=== PATIENT | female | born 1985 | race Hispanic/Latino ===

== ENCOUNTER 2022-05-03 19:41 | Emergency (ER) | payer SELFPAY ==
--- OUTSIDE RECORDS SUMMARY | 2022-05-03 19:48 | XMS REPORT | Continuity of Care Document ---
:1985 Author Organization [facility] t Address [address] [place] [address] Care Team Providers Name Role Phone No, Pcp [facility] Primary Care Physician Unavailable Armond Owens Attending Clinician Unavailable Boy Ndiaye Attending Clinician Unavailable Jodie ANDRADE, Hebert Joaquin Attending Clinician [phone] Gabe Casas Attending Clinician Unavailable Livier Carver Attending Clinician Unavailable Sidney ANDRADE, Bradley Rich Attending Clinician [phone] Rick ANDRADE, Noris Castaneda Attending Clinician Ajay ANDRADE, Patricia Blanc Attending Clinician [phone] Miah ANDRADE, Nathaniel Izaguirre Attending Clinician Carter ANDRADE, Dana Attending Clinician DANA VILLARREAL Attending Clinician Unavailable Louisa Sosa Attending Clinician Unavailable GC_BVW_South_J Attending Clinician Unavailable Dallin Sanchez Attending Clinician Unavailable Armond Owens Admitting Clinician Unavailable Bárbara Lemons Admitting Clinician Unavailable PATRICIA MOSS Admitting Clinician Unavailable GC_BVW_South_J Admitting Clinician Unavailable Payers Payer Name Policy Type Policy Number Effective Date Expiration Date S melany GENERIC [id number] 2021 INSTIT,S[facility],LTAC,RE 00:00:00 [facility] [id number] Problems Condition Condition Condition Status Onset Resolution Last Treating Co mments Source Name Details Category Date Date Treatment Clinician Date Cervical Cervical Disease Active [facility]-03 [facility] [place] Symptomati Symptomati Disease Active 2021-[address] [facility] anemia c anemia 04-28 [facility] 00 [place] Vaginal Vaginal Disease Active 2021-[address] bleeding bleeding [facility]-28 [facility] Allergies, Adverse Reactions, Alerts Allergy Allergy Status Severity Reaction(s) Onset Inactive Treating Comm ents Source Name Type Date Date Clinician ibuprofe DA Active RI [facility] 00 [place] Iam NSAIDS Allergy Active 2021-03 [facility] Anti-Inf e 09 l [facility] ibuprofe Allergy Active 2021-03 St. n to [place] substanc 09:05: Regiona e 34 l Health Penicill Allergy Active 2021-03 St. ins to [place] substanc 09:05: Regiona e 21 l Health NSAIDS DA Active U 2021-03 [facility] Anti-Inf 00 lamma Penic[place] DA Active U 2021-03 STLSJX ins 00:00: 00 ibuprofe DA Active U 2021-03 STLSJX n 2 00:00: 00 IBPROFEN DA Active MO EDEMA [facility] Penic[facility] DA Active U [facility] ins 2 [facility] 00:[facility]: [facility] Pen[place] DA Active U RASH-UNKNOWN HC A ins 04-14 [facility] 00:00: [facility] [place] DA Active U [facility] ins 03-27 [facility] 00:00: [facility] 00 [facility] NO KNOWN Allergy Active [facility] Social History Social Habit Start Date Stop Date Quantity Comments Source History of tobacco [place] [facility] use [facility] Tobacco use and 2022-02-25 2022-02-[address] [facility] exposure 00:00[facility]00 [facility]00 [facility] Center Sex Assigned At [address] [facility] 00:[facility] Smoking Status Start Date Stop Date Source Tobacco smoking [place] [facility] consumption unknown Health (finding) Former smoker 2022-02-25 00:00:00 2022-02-[address] [facility] Medications Ordered Filled Start Stop Current Ordering Indication Dosage Frequency Signature Comments Components Source Medication Medication Date Date Medication? Clinician (SIG) Name Name ferrous 2021-03 Yes 325mg Take 325 [facility] sulfate 325 2-21 mg by [facility] (65 FE) MG 19:09: mouth Medica l tablet 58 daily with Center breakfast. ferrous 2021-03 Yes 325mg Take 325 [facility] sulfate 325 2-21 mg by [facility] (65 FE) MG 19:09: mouth Medica l tablet 58 daily with Center breakfast. ferrous 2021-03 Yes 325mg Take 325 [facility] sulfate 325 2-21 mg by [facility] (65 FE) MG 19:09: mouth Medica l tablet 58 daily with Center breakfast. ondansetron 2021-03 4mg Take [address] (ZOFRAN-ODT 2- 12- tablet (4 Marj kes ) 4 MG 00:00: 23:59 mg total) Medic al disintegrat 00 :00 by mouth Cent er ing tablet every 8 (eight) hours as needed for up to 7 days. ondansetron 2021-03 No 4mg Take [address] (ZOFRAN-ODT 04-30 tablet (4 Marj kes ) 4 MG 00:00: 23:59 mg total) Medic al disintegrat 00 :00 by mouth Cent er ing tablet every 8 (eight) hours as needed for up to 7 days. ondansetron 2021-03 No 4mg Take [address] (ZOFRAN-ODT 04-30 tablet (4 Marj kes ) 4 MG 00:00: 23:59 mg total) Medic al disintegrat 00 :00 by mouth Cent er ing tablet every 8 (eight) hours as needed for up to 7 days. Vital Signs Vital Name Observation Time Observation Value Comments Source WEIGHT 2022-03-09 11:47:00 72.993725 kg HEIGHT 2022-03-09 11:47:00 165.1 cm Body Temperature 2022-03-09 09:36:00 97.7 [degF] [facility] Heart Rate 2022-03-09 09:36:00 59 /min [facility] Respiratory rate 2022-03-09 09:36:00 20 /min [facility] Oxygen saturation by 2022-03-09 09:36:00 97 /min [place] Pulse oximetry [facility] BP Systolic 2022-03-09 09:36:00 99 mm[Hg] [facility] BP Diastolic 2022-03-09 09:36:00 58 mm[Hg] [facility] HEIGHT 2022-02-26 17:00:00 165.1 cm WEIGHT 2022-02-26 17:00:00 72.576 kg HEIGHT 2022-02-26 17:00:00 165.1 cm WEIGHT 2022-02-26 17:00:00 72.576 kg HEIGHT 2022-02-26 17:00:00 165.1 cm WEIGHT 2022-02-26 17:00:00 72.576 kg Heart rate 2022-02-27 11:58:02 65 /min [facility] Respiratory rate 2022-02-27 11:58:02 17 /min [facility] Oxygen saturation in 2022-02-27 11:58:02 96 /min [facility] Arterial blood by Medical Ce nter Pulse oximetry Body temperature 2022-02-27 11:57:00 36.89 Emelyn [facility] Systolic blood 2022-02-27 11:56:30 95 mm[Hg] [facility] Diastolic blood 2022-02-27 11:56:30 54 mm[Hg] [facility] Body height 2022-02-26 18:01:00 165.1 cm [facility] Body weight 2022-02-26 18:01:00 72.6 kg [facility] BMI 2022-02-26 18:01:00 26.63 kg/m2 [facility] Procedures Procedure Date / Time Performing Clinician Source Performed US Pelvic Transvag W 2022-03-09 03:52:[address] [facility] [address] Abdomen Pelvis W Con 2022-03-09 00:15:00 [facility] EKG 12 Lead in Emergency 2022-03-08 23:09:00 [facility] XR Chest 1 View Portable 2022-03-08 23:08:00 [facility] PREPARE RBC 2022-02-27 23:54:00 AjayPatricia [facility] MAGNESIUM 2022-02-27 03:49:00 [place] Patricia [facility] PHOSPHORUS 2022-02-27 03:49:00 [place] Patricia [facility] IRON, TIBC, % SAT. 2022-02-27 03:49:00 Soheila-Rach Sung In [facility] (WITHOUT FERRITIN) Medical Cente r FERRITIN 2022-02-27 03:49:00 Soheila-Rach Sung In [facility] INCUBATED 1:1 MIXING 2022-02-27 03:49:00 Soheila-Rach Sung In [facility] BASIC METABOLIC PANEL 2022-02-27 03:49:00 Henrietta Dooleyg In I [facility] CBC (HEMOGRAM ONLY) 2022-02-27 03:49:00 Nathaniel Dooley In [facility] TISSUE EXAM 2022-02-26 16:38:00 Yamile Reyez [facility] CBC (HEMOGRAM ONLY) 2022-02-26 08:34:00 Nathaniel Dooley In [facility] PT/APTT 2022-02-26 08:33:00 Henrietta Dooleyg In [facility] FACTOR 9 ACTIVITY 2022-02-26 08:33:00 Miah Wayneg In [facility] FACTOR 8 ACTIVITY 2022-02-26 08:33:00 HarleyRachHenrietta tonyg In [facility] HEMOGLOBIN AND HEMATOCRIT 2022-02-26 05:29:00 Ajay Patricia [facility] RETICULOCYTE COUNT 2022-02-26 05:29:00 SoheilaGonzalezRachNathaniel tony In [facility] CALCIUM, IONIZED 2022-02-26 03:56:00 Patricia Moss [facility] TRANSFUSE LEUKO-REDUCED 2022-02-26 01:35:00 Patricia Moss [facility] RED BLOOD CELLS [facility] SARS-COV2/RT-PCR ([facility] & 2022-02-25 23:23:00 Patricia Moss [facility] REF LABS) [facility] ABORH, MANUAL 2022-02-25 23:22:00 Liset Cardona [facility] CBC W/PLT COUNT & AUTO 2022-02-25 22:03:00 Patricia Moss [facility] DIFFERENTIAL [facility] COMPREHENSIVE METABOLIC 2022-02-25 22:03:00 Patricia Moss [facility], I [facility] PANEL [facility] PROTHROMBIN TIME/INR 2022-02-25 22:03:00 Patricia Moss [facility] MAGNESIUM 2022-02-25 22:03:00 Patricia Moss [facility] TYPE AND SCREEN, 2022-02-25 22:03:00 Patricia Moss [facility] AUTOMATED [facility] CBC W/PLT COUNT & AUTO 2022-02-25 22:03:[address] [facility] DIFFERENTIAL [facility] [id number] 2020-01-24 00:00:00 [facility] [id number] 2020-01-24 00:00:00 [facility] [id number] 2020-01-24 00:00:00 [facility] Plan of Care Planned Activity Planned Date Details Comments Source Future Scheduled 2023-02-[address] [facility] Test 00:00[facility]00 [facility] Screening (12+) [code = Tobacco Cessation Counseling and Screening (12+)] Future Scheduled 2023-02-[address] [facility] Test 00:00:00 [facility] r Screening (12+) [code = Tobacco Cessation Counseling and Screening (12+)] Future Scheduled 2023-02-[address] [facility] Test 00:00:00 [facility] Cent[facility] r Screening (12+) [code = Tobacco Cessation Counseling and Screening (12+)] Future Scheduled 2022-03-[address] [facility] Test 00:00:00 (12+) [code = [facility] DEPRESSION SCREENING (12+)] Future Scheduled 2022-03-[address] [facility] Test 00:00:00 (12+) [code = [facility] DEPRESSION SCREENING (12+)] Future Scheduled 2021-11-[address] [facility] Test 00:00:00 (#1) [code = [facility] INFLUENZA VACCINE (#1)] Future Scheduled 2021-11-[address] [facility] Test 00:00:00 (#1) [code = [facility] INFLUENZA VACCINE (#1)] Future Scheduled 2021-11-[address] [facility] Test 00:00:00 (#1) [code = [facility] INFLUENZA VACCINE (#1)] Future Scheduled 2021-03-[address] [facility] Test 00:00:00 (12+) [code = [facility] DEPRESSION SCREENING (12+)] Future Scheduled 2004-09-[address] [facility] Test 00:00:00 malignant neoplasm of Medica l Center cervix (procedure) [code = 343402673] Future Scheduled 2002-09-07 DTAP/TDAP/TD VACCINES [facility] 00:00:00 (1 - Tdap) [code = Medical C enter DTAP/TDAP/TD VACCINES (1 - Tdap)] Future Scheduled 2002-09-07 DTAP/TDAP/TD VACCINES [facility] Test 00:00:00 (1 - Tdap) [code = Medical C enter DTAP/TDAP/TD VACCINES (1 - Tdap)] Future Scheduled 2002-09-07 DTAP/TDAP/TD VACCINES [facility] 00:00:00 (1 - Tdap) [code = Medical C enter DTAP/TDAP/TD VACCINES (1 - Tdap)] Future Scheduled 2001-09-07 HEPATITIS C SCREENING [facility] 00:00[facility]00 [code = HEPATITIS C Medical Center SCREENING] Future Scheduled 2001-09-07 HEPATITIS C [facility]CRE[facility]ING [facility] 00:00:00 [code = HEPATITIS C Medical Center SCREENING] Future Scheduled 2001-09-07 HEPATITIS C [facility]CREENING [facility] 00:00:00 [code = HEPATITIS C Medical Center SCREENING] Future Scheduled 1984-03-10 COVID-19 VACCINE (#1) [facility] 00:00:00 [code = COVID-[address] VACCINE (#1)] Future Scheduled 1984-03-10 COVID-19 VACCINE (#1) [facility] 00:00:00 [code = COVID-[address] VACCINE (#1)] Future Scheduled 1984-03-10 COVID-19 VACCINE (#1) [facility] 00:00:00 [code = COVID-[address] VACCINE (#1)] Encounters Start End Encounter Admission Attending Care Care Encounter Source Date/Time Date/Time Type Type Clinicians Facility Department ID 2022-03-09 Hospital ER [facility] Gynecology [id number] 00:[facility]00 Encounter [facility] 2022-03-09 [facility] [id number] [facility] 00:00:00 Encounter [facility] 2020-01-24 Inpatient Corrada, [facility] SHANA [id number] [facility] 04:01:[id number] [facility] 2022-03-18 2022-03-18 Emergency ER Senthil, [facility] [id number] 18:23:00 22:48:00 Boy -[id number] Eron Aaron 2022-03-13 2022-03-13 Outside [facility] [id number] 00:00:00 00:00:00 Orders [facility] 2022-03-13 2022-03-13 Outside [facility] [id number] 00:00:00 00:00:00 Orders [facility] 2022-03-09 2022-03-12 Inpatient U Yessenia [facility] MED [id number] STLSJX 08:49:00 14:02:00 Gabe -[id number] 2022-03-12 2022-03-12 Orders [facility] [id number] 00:00:00 00:00:00 Only [facility] 2022-03-12 2022-03-12 Orders [facility] [id number] 00:00:00 00:00:00 Only [facility] 2022-03-08 2022-03-09 Emergency ER Wen, [facility] [id number] 22:41:00 09:05:00 Livier -[id number] Eron Aaron 2022-03-09 2022-03-09 Admitted [id number] [facility] [id number] 08:49:00 08:49:00 Inpatient [id number] [facility] 50 J oseph [id number] [facility] Ctr-CS Re giona [id number] [facility] 2022-03-09 2022-03-09 Telephone [facility] [id number] 00:00:00 00:00:00 Thomasbud [facility] 2022-03-09 2022-03-09 Telephone [facility] [id number] 00:00:00 00:00:00 Kwesichelebud [facility] 2022-02-25 2022-02-27 Hospital ER Noris Cabrera [facility] [id number] 21:25:00 19:09:00 Encounter Patricia MossRach, Sun In [facility] [place], Danaal Botello r 2022-02-25 2022-02-27 Inpatient ER [facility] Rug Weaver [id number] SLE 21:25:00 19:09:00 Oncology 2022-02-25 2022-02-27 [facility] Noris Cabrera [facility] [id number] 21:25:00 19:09:00 [facility], Dana Botello r 2022-02-25 2022-02-25 Emergency ER Sharer, [facility] [id number] 10:23:00 19:24:00 [id number] Marj s [place] Vitale 2022-02-15 2022-02-15 Outpatient GC_BVWC_Sou PRIV PRIV [id number] [facility] 00:00:00 00:00:00 _Cherise [id number] Medica l 2021-10-11 2021-10-11 Emergency EM Laura, [facility] ER [id number] [facility] 13:35:00 20:55:[address] [facility] 2021-10-11 2021-10-11 Emergency EM Laura, [facility] [id number] [facility] 13:35:00 20:55:[id number] [facility] Results Test Description Test Time Test Comments Results Result Comments Source Culture, Urine 2022-03-20 15:56:00 Test Item Value Reference Range Interpretation Comme nts Culture, Urine (test code = URC) NF Culture, Urine (test code = URC1) 50 MSF [id number] 19:50:00 Test Item Value Reference Range Interpretation Comments Chemistry (test code = 138 mmol/L 136-145 N NA-T) Chemistry (test code = 3.9 mmol/L 3.5-5.1 N K-T) Chemistry (test code = 104 mmol/L 98-107 N CL) Chemistry (test code = 27 mmol/L 22-29 N CO2) Chemistry (test code = 11 mmol/L 10-20 N ANGP) Chemistry (test code = 16 mg/dL 7.0-18.7 N BUN) Chemistry (test code = 0.72 mg/dL 0.6-1.1 N CREATT) Chemistry (test code = 110 Refer ence Range for EGFRCR) Estimated GFR: Greater than 90 mL/min/1.73 l7Lfgkhqox eGFR is based on the CK D-EPI 2020 equation thatdoes not us e a race coefficien t. Chemistry (test code = 90 mg/dL 70-105 N GLU-T) Chemistry (test code = 9.3 mg/dL 7.8-10.44 N CA) Chemistry (test code = 0.3 mg/dL 0.2-1.2 N TBILI-T) Chemistry (test code = 7.2 g/dL 6.0-8.3 N TP) Chemistry (test code = 4.2 g/dL 3.5-5.0 N ALB) Chemistry (test code = 3.0 g/dL 2.4-3.5 N GLOB) Chemistry (test code = 1.4 g/dL 1.2-2.2 N AG) Chemistry (test code = 66 U/L 40-110 N ALP) Chemistry (test code = 14 U/L 5-34 N AST) Chemistry (test code = 14 U/L 8-55 N ALT) [id number] 19:50:00 Test Item Value Reference Range Interpretation Comments Chemistry (test code = LIP) 39 U/L 8-78 N [id number] 19:46:00 Test Item Value Reference Range Interpretation Comments Chemistry (test Less than < 0.028 code = TROPI-R) 0.010 ng/mL Reference Ra nge 0.00 - 0.028 ng /mL Negative 0.029 - 0.29 ng/mL Indetermi vincent Greater or Equa l to 0.3 ng/mL Stron gly suggests RI Chemistry - [id number] 19:43:00 Test Item Value Reference Range Interpretation Comments Chemistry - Lactate (test code = 0.6 mmol/L 0.5-2.2 N LACTSEP-T) Chemistry - [id number] 19:27:00 Test Item Value Reference Range Interpretation Comments Chemistry - Specials Negative NEGATIVE Method of sensitivity- (test code = BHCGST) Indeter minant: results should be repea erna after 48-72 hrs Positive: resul ts may be detected as early as 1 day after the first missed me nses. [id number] 19:22:00 Test Item Value Reference Range Interpretation Comments Hematology (test code = WBCT) 6.8 10x3/uL 4.8-10.8 N Hematology (test code = RBCT) 2.99 mill/uL 4.20-5.40 L Hematology (test code = HGBT) 9.6 g/dL 12.0-16.0 L Hematology (test code = HCTT) 28.5 % 36.0-47.0 L Hematology (test code = MCV) 95.3 fl 78.0-98.0 N Hematology (test code = MCH) 32.1 pg 27.0-31.0 H Hematology (test code = MCHC) 33.6 g/dL 32.0-36.0 N Hematology (test code = RDW) 14.5 % 11.5-14.5 N Hematology (test code = PLTT) 226 10x3/uL 130-400 N Hematology (test code = MPV) 7.3 fL 7.4-10.4 L Hematology (test code = %NEUT) 60.7 % 42.0-75.0 N Hematology (test code = %LYMPH) 30.0 % 21.0-51.0 N Hematology (test code = %MONO) 4.8 % 0.0-10.0 N Hematology (test code = %EOS) 4.3 % 0.0-10.0 N Hematology (test code = %BASO) 0.2 % 0.0-1.0 N Hematology (test code = NEUT#) 4.1 thou/uL 1.40-6.50 N Hematology (test code = LYMPH#) 2.0 thou/uL 1.20-3.40 N Hematology (test code = MONO#) 0.3 thou/uL 0.11-0.59 N Hematology (test code = EOS#) 0.3 thou/uL 0.0-0.7 N Hematology (test code = BASO#) 0.0 thou/uL 0.0-0.2 N [id number] 19:16:00 Test Item Value Reference Range Interpretation Comments Urinalysis (test code = Tabiona Yellow A UACLR) Urinalysis (test code = Turbid Clear A UACLY) Urinalysis (test code = 1.010 1.002-1.036 N SPGR) Urinalysis (test code = 6.0 5.0-9.0 N LAUREL) Urinalysis (test code = 250 Antionette/uL Negative A UALEU) Urinalysis (test code = Negative Negative UANIT) Urinalysis (test code = 10 mg/dL Neg-Trace PROUADIP) Urinalysis (test code = Normal mg/dL Negative GLUCU) Urinalysis (test code = Negative mg/dL Negative KETU) Urinalysis (test code = Normal mg/dL Less than 2 UAUROB) Urinalysis (test code = Negative Negative UABIL) Urinalysis (test code = 3+ Negative A UABLD) Urinalysis (test code = Greater than 50 HPF 0-3 A UARBC) Urinalysis (test code = 11-20 HPF 0-3 A UAWBC) Urinalysis (test code = 0-3 HPF 0-3 UASQUAM) Urinalysis (test code = 2+ HPF None Seen A UABAC) Urine Source: Urine VoidedType [id number] 09:43:00 Test Item Value Reference Range Interpretation Comments Blood Type Rh (test code = BT) A POSITIVE Antibody Screen (test code = ABSC) NEGATIVE Received Blood Or Been w/in Past 90 Days? UNKNOWNScheduled Surgery Date: No SurgeryReceivedBlood Or Been w/in Past 90 Days? UNKNOWNIs Surgery Date Greater than 7 days from now? NOScheduled Surgery Date: NO SURGERYIs Surgery Date Greater than 7 days from now? NOPacked Cells - [id number] 09:43:[id number] [facility] 03/09/22 0342 [id number] 05:58:00 Test Item Value Reference Range Interpretation Comments Urinalysis (test code = UACLR) Light-Yellow Yellow Urinalysis (test code = UACLY) Clear Clear Urinalysis (test code = SPGR) 1.054 1.002-1.036 H Urinalysis (test code = LAUREL) 6.5 5.0-9.0 N Urinalysis (test code = UALEU) 75 Antionette/uL Negative A Urinalysis (test code = UANIT) Negative Negative Urinalysis (test code = Negative mg/dL Neg-Trace PROUADIP) Urinalysis (test code = GLUCU) Normal mg/dL Negative Urinalysis (test code = KETU) Negative mg/dL Negative Urinalysis (test code = Normal mg/dL Less than 2 UAUROB) Urinalysis (test code = UABIL) Negative Negative Urinalysis (test code = UABLD) 3+ Negative A Urinalysis (test code = UARBC) 4-6 HPF 0-3 A Urinalysis (test code = UAWBC) 0-3 HPF 0-3 Urinalysis (test code = 0-3 HPF 0-3 UASQUAM) Urinalysis (test code = UABAC) None Seen HPF None Seen Urine Source: Urine Clean CatchUrine specific gravity measurement by [id number] 05:17:00 Test Item Value Reference Range Interpretation Comments Urine Specific [place] (test code = 1.054 1.002-1.036 5810-7) [facility] pH measurement by automated test [id number] 05:17:00 Test Item Value Reference Range Interpretation Comments Urine pH (test code = 84364-2) 6.5 5.0-9.0 [facility] leukocyte esterase detection by automated test [id number] 05:17:00 Test Item Value Reference Range Interpretation Comments Urine Leukocyte Esterase (test code 75 Antionette/uL Negative = 30304-4) [facility] in Urine by Test [id number] 05:17:00 Test Item Value Reference Range Interpretation Comments Urine Nitrite (test code = 5802-4) Negative Negative [facility] protein measurement by automated test strip (mass/volume)2022-03-09 05:17:00 Test Item Value Reference Range Interpretation Comments Urine Protein (test code = Negative mg/dL Neg-Trace 50763-3) [facility] glucose measurement by test strip (mass/volume) 2022-03-09 05:17:00 Test Item Value Reference Range Interpretation Comments Urine Glucose (UA) (test code = Normal mg/dL Negative 5792-7) [facility] ketones measurement by automated test strip (mass/volume)2022-03-09 05:17:00 Test Item Value Reference Range Interpretation Comments Urine Ketones (test code = Negative mg/dL Negative 21472-9) [facility] urobilinogen measurement (units/volume) by test [id number] 05:17:00 Test Item Value Reference Range Interpretation Comments Urine Urobilinogen (test code = Normal mg/dL Less than 2 36595-3) [facility] total bilirubin detection by automated test [id number] 05:17:00 Test Item Value Reference Range Interpretation Comments Urine Bilirubin (test code = Negative Negative 45373-6) [facility] hemoglobin detection by automated test strip 2022-03-09 05:17:00 Test Item Value Reference Range Interpretation Comments Urine Blood (test code = 26142-1) 3+ Negative [facility] erythrocytes detection by automated method 2022-03-09 05:17:00 Test Item Value Reference Range Interpretation Comments Urine RBC (test code = 73613-1) 4-6 HPF 0-3 [facility] leukocytes detection by automated method 2022-03-09 05:17:00 Test Item Value Reference Range Interpretation Comments Urine WBC (test code = 13953-1) 0-3 HPF 0-3 [facility] cells.squamous [#/area] in Urine sediment by Automated [id number] 05:17:00 Test Item Value Reference Range Interpretation Comments Urine Squamous Epithelial Cells (test 0-3 HPF 0-3 code = 41798-4) [facility] bacteria detection by automated [id number] 05:17:00 Test Item Value Reference Range Interpretation Comments Urine Bacteria (test code = None Seen HPF None Seen 74437-8) [facility] by [id number] 05:17:00 Test Item Value Reference Range Interpretation Comments Urine Color (test code = Light-Yellow Yellow 33596-4) [facility] by refractometry [id number] 05:17:00 Test Item Value Reference Range Interpretation Comments Urine Clarity (test code = 35618-5) Clear Clear [facility]2022[facility] 03:39:00 Test Item Value Reference Range Interpretation Comments Chemistry (test Less than < 0.028 code = TROPI-R) 0.010 ng/mL Reference Ra nge 0.00 - 0.028 ng /mL Negative 0.029 - 0.29 ng/mL Indetermi vincent Greater or Equa l to 0.3 ng/mL Stron gly suggests RI Chemistry - [id number] 01:51:00 Test Item Value Reference Range Interpretation Comments Chemistry - Specials Negative NEGATIVE Method of sensitivity- (test code = BHCGST) Indeter minant: results should be repea erna after 48-72 hrs Positive: resul ts may be detected as early as 1 day after the first missed me nses. [id number] 01:01:00 Test Item Value Reference Range Interpretation Comments Coagulation (test 14.1 sec 12.0-14.7 N code = PT-T) Coagulation (test 1.1 ATTE NTION: READ code = INR) CAREFULLY-- The recommended the rapeutic ranges for oral anticoagulanttr eatments are: ------ Low Inte nsity: 1.5 - 2.0 Moderate In tensity: 2.0 - 3.0 High Intens ity (1): 2.5 - 3.5 High Intens ity (2): 3.0 - 4.0 CRITICAL: > 6.0 Anticoagulant? NONEMedical Necessity SUSPECT COAGULOPATHYAnticoagulant? NONEMedical Necessity: SUSP FRBJAdyoqesalnn6121-91-82 01:01:00 Test Item Value Reference Range Interpretation Comments Coagulation (test code = PTT) 32.5 sec 22.9-36.1 N Anticoagulant? NONEMedical Necessity SUSPECT COAGULOPATHYAnticoagulant? NONEMedical Necessity: SUSP UPHWPjmxpblhcky8075-10-62 01:01:00 Test Item Value Reference Range Interpretation Comments Coagulation (test 0.27 *mcg/mL 0.27-0.43 N * Referenc e Range code = DDIMTT) Units: mcg/mL of fibrinogen equi valent units(FEU)Based upon a retrospective study of [facility] in July 2005, a result of"Less than 0. 44 mcg/mL FEU" is predictive of t he absence ofa DVT or PE. Anticoagulant? NONEMedical Necessity SUSPECT COAGULOPATHYAnticoagulant? NONEMedical Necessity: SUSP COAGChemistry - [id number] 00:53:00 Test Item Value Reference Range Interpretation Comments Chemistry - Lactate (test code = 0.7 mmol/L 0.5-2.2 N LACTSEP-T) Retype Verify-Blood Type [id number] 00:36:00 Test Item Value Reference Range Interpretation Comments Blood Type Rh (test code = BT) A POSITIVE Serum or plasma lactate measurement (moles/volume)2022-03-09 00:26:00 Test Item Value Reference Range Interpretation Comments Lactic Acid Level (test code = 0.7 mmol/L 0.5-2.2 2524-7) [facility]thrombin time (PT) in platelet poor plasma by coagulation awbqe2277-14-54 00:26:00 Test Item Value Reference Range Interpretation Comments Prothrombin Time (test code = 14.1 sec 12.0-14.7 5902-2) [facility]R in Platelet poor plasma by Coagulation assay 2022-03-09 00:26:00 Test Item Value Reference Range Interpretation Comments INR International Normalized Ratio 1.1 (test code = 6301-6) [facility]allActivated partial thromboplastin time (aPTT) in platelet poor plasma by coagulation [id number] 00:26:00 Test Item Value Reference Range Interpretation Comments Activated Partial Thromboplast Time 32.5 sec 22.9-36.1 (test code = 24163-6) [facility]allFibrin D-dimer FEU measurement in platelet poor plasma (mass/volume)2022-03-09 00:26:00 Test Item Value Reference Range Interpretation Comments D-Dimer (test code = 83282-2) 0.27 *mcg/mL 0.27-0.43 [facility]2022-[facility]-31 00:01:00 Test Item Value Reference Range Interpretation Comments Chemistry (test Less than < 0.028 code = TROPI-R) 0.010 ng/mL Reference Ra nge 0.00 - 0.028 ng /mL Negative 0.029 - 0.29 ng/mL Indetermi vincent Greater or Equa l to 0.3 ng/mL Stron gly suggests RI Etnlqyxkf2698-41-36 23:59:00 Test Item Value Reference Range Interpretation Comments Chemistry (test code = 140 mmol/L 136-145 N NA-T) Chemistry (test code = 3.7 mmol/L 3.5-5.1 N K-T) Chemistry (test code = 105 mmol/L 98-107 N CL) Chemistry (test code = 27 mmol/L 22-29 N CO2) Chemistry (test code = 12 mmol/L 10-20 N ANGP) Chemistry (test code = 13 mg/dL 7.0-18.7 N BUN) Chemistry (test code = 0.67 mg/dL 0.6-1.1 N CREATT) Chemistry (test code = 115 Refer ence Range for EGFRCR) Estimated GFR: Greater than 90 mL/min/1.73 g3Hknbdqeh eGFR is based on the CK D-EPI 2020 equation thatdoes not us e a race coefficien t. Chemistry (test code = 107 mg/dL 70-105 H GLU-T) Chemistry (test code = 8.5 mg/dL 7.8-10.44 N CA) Chemistry (test code = 0.2 mg/dL 0.2-1.2 N TBILI-T) Chemistry (test code = 6.0 g/dL 6.0-8.3 N TP) Chemistry (test code = 3.6 g/dL 3.5-5.0 N ALB) Chemistry (test code = 2.4 g/dL 2.4-3.5 N GLOB) Chemistry (test code = 1.5 g/dL 1.2-2.2 N AG) Chemistry (test code = 58 U/L 40-110 N ALP) Chemistry (test code = 8 U/L 5-34 N AST) Chemistry (test code = 7 U/L 8-55 L ALT) [id number] 23:59:00 Test Item Value Reference Range Interpretation Comments Chemistry (test code = LIP) 42 U/L 8-78 N [id number] 23:36:00 Test Item Value Reference Range Interpretation Comments Hematology (test code = WBCT) 7.8 10x3/uL 4.8-10.8 N Hematology (test code = RBCT) 2.42 mill/uL 4.20-5.40 L Hematology (test code = HGBT) 8.3 g/dL 12.0-16.0 L Hematology (test code = HCTT) 22.7 % 36.0-47.0 L Hematology (test code = MCV) 94.0 fl 78.0-98.0 N Hematology (test code = MCH) 34.2 pg 27.0-31.0 H Hematology (test code = MCHC) 36.4 g/dL 32.0-36.0 H Hematology (test code = RDW) 13.8 % 11.5-14.5 N Hematology (test code = PLTT) 237 10x3/uL 130-400 N Hematology (test code = MPV) 7.2 fL 7.4-10.4 L Hematology (test code = %NEUT) 60.3 % 42.0-75.0 N Hematology (test code = %LYMPH) 30.8 % 21.0-51.0 N Hematology (test code = %MONO) 5.5 % 0.0-10.0 N Hematology (test code = %EOS) 3.2 % 0.0-10.0 N Hematology (test code = %BASO) 0.2 % 0.0-1.0 N Hematology (test code = NEUT#) 4.7 thou/uL 1.40-6.50 N Hematology (test code = LYMPH#) 2.4 thou/uL 1.20-3.40 N Hematology (test code = MONO#) 0.4 thou/uL 0.11-0.59 N Hematology (test code = EOS#) 0.2 thou/uL 0.0-0.7 N Hematology (test code = BASO#) 0.0 thou/uL 0.0-0.2 N Serum or plasma sodium measurement (moles/volume)2022-03-08 23:16:00 Test Item Value Reference Range Interpretation Comments Sodium Level (test code = 2951-2) 140 mmol/L 136-145 [facility] or plasma potassium measurement (moles/volume) 2022-03-08 23:16:00 Test Item Value Reference Range Interpretation Comments Potassium Level (test code = 3.7 mmol/L 3.5-5.1 2823-3) [facility] or plasma chloride measurement (moles/volume) 2022-03-08 23:16:00 Test Item Value Reference Range Interpretation Comments Chloride Level (test code = 105 mmol/L 98-107 5-0) [facility] or plasma carbon dioxide, total measurement (moles/volume)2022-03-08 23:16:00 Test Item Value Reference Range Interpretation Comments Carbon Dioxide Level (test code = 27 mmol/L -29 2027-9) [facility] or plasma anion [id number] 23:16:00 Test Item Value Reference Range Interpretation Comments Anion Gap (test code = 88023-3) 12 mmol/L 10-20 [facility] or plasma urea nitrogen measurement (mass/volume)2022-03-08 23:16:00 Test Item Value Reference Range Interpretation Comments Blood Urea Nitrogen (test code = 13 mg/dL 7.0-18.7 3094-0) [facility] or plasma creatinine measurement (mass/volume) 2022-03-08 23:16:00 Test Item Value Reference Range Interpretation Comments Creatinine (test code = 2160-0) 0.67 mg/dL 0.6-1.1 [facility]allGlomerular filtration rate/1.73 sq M.predicted [Volume Rate/Area] in Serum, Plasma [id number] 23:16:00 Test Item Value Reference Range Interpretation Comments Estimated GFR (CKD-EPI 2020) (test code 115 = 40348-7) [facility]Glucose [Mass/volume] in Serum or Uksrxo6644-78-73 23:16:00 Test Item Value Reference Range Interpretation Comments Glucose Level (test code = 2345-7) 107 mg/dL 70-105 [facility] or plasma calcium measurement (mass/volume) 2022-03-08 23:16:00 Test Item Value Reference Range Interpretation Comments Calcium Level (test code = 72250-9) 8.5 mg/dL 7.8-10.44 [facility] or plasma total bilirubin measurement (mass/volume)2022-03-08 23:16:00 Test Item Value Reference Range Interpretation Comments Total Bilirubin (test code = 0.2 mg/dL 0.2-1.2 1974-2) [facility] or plasma protein measurement (mass/volume) 2022-03-08 23:16:00 Test Item Value Reference Range Interpretation Comments Serum Total Protein (test code = 6.0 g/dL 6.0-8.3 2885-2) [facility] or plasma albumin measurement by bromocresol green (BCG) dye binding method ([id number] 23:16:00 Test Item Value Reference Range Interpretation Comments Albumin (test code = 30373-1) 3.6 g/dL 3.5-5.0 [facility]allGlobulin [Mass/volume] in Serum by calculation 2022-03-08 23:16:00 Test Item Value Reference Range Interpretation Comments Globulin (test code = 24462-9) 2.4 g/dL 2.4-3.5 [facility]allAlbumin/Globulin [Mass Ratio] in Serum or Plasma 2022-03-08 23:16:00 Test Item Value Reference Range Interpretation Comments Albumin/Globulin Ratio (test code = 1.5 g/dL 1.2-2.2 1759-0) [facility]allAlkaline phosphatase [Enzymatic activity/volume] in Serum or [id number] 23:16:00 Test Item Value Reference Range Interpretation Comments Alkaline Phosphatase (test code = 58 U/L 40-110 6768-6) [facility] or plasma aspartate aminotransferase measurement (enzymatic activity/volume)2022-03-08 23:16:00 Test Item Value Reference Range Interpretation Comments Aspartate Amino Transf (AST/SGOT) (test 8 U/L 5-34 code = 1920-8) [facility] or plasma alanine aminotransferase measurement without P-5'-P (enzymatic [id number] 23:16:00 Test Item Value Reference Range Interpretation Comments Alanine Aminotransferase (ALT/SGPT) 7 U/L 8-55 (test code = 1744-2) [facility] or plasma lipase measurement (enzymatic activity/volume)2022-03-08 23:16:00 Test Item Value Reference Range Interpretation Comments Lipase (test code = 3040-3) 42 U/L 8-78 [facility] human chorionic gonadotropin detection for ssjgtzpvb6597-74-40 23:16:00 Test Item Value Reference Range Interpretation Comments Serum Test, Qualitative Negative NEGATIVE (test code = 2118-8) [facility]ukocytes [#/volume] in Blood by Automated count 2022-03-08 23:16:00 Test Item Value Reference Range Interpretation Comments White Blood Count (test code = 7.8 10x3/uL 4.8-10.8 6690-2) [facility] erythrocytes automated count (number/volume) 2022-03-08 23:16:00 Test Item Value Reference Range Interpretation Comments Red Blood Count (test code = 2.42 mill/uL 4.20-5.40 789-8) [facility] hemoglobin measurement (mass/volume)2022-03-08 23:16:00 Test Item Value Reference Range Interpretation Comments Hemoglobin (test code = 718-7) 8.3 g/dL 12.0-16.0 [facility] erythrocyte mean corpuscular volume 2022-03-08 23:16:00 Test Item Value Reference Range Interpretation Comments Mean Corpuscular Volume (test code = 94.0 fl 78.0-98.0 787-2) [facility] corpuscular hemoglobin (mass per erythrocyte)2022-03-08 23:16:00 Test Item Value Reference Range Interpretation Comments Mean Corpuscular Hemoglobin (test 34.2 pg 27.0-31.0 code = 785-6) [facility] erythrocyte mean corpuscular hemoglobin concentration measurement (mass/[id number] 23:16:00 Test Item Value Reference Range Interpretation Comments Mean Corpuscular Hemoglobin Concent 36.4 g/dL 32.0-36.0 (test code = 786-4) [facility] 2022-03-08 23:16:00 Test Item Value Reference Range Interpretation Comments Red Cell Distribution Width (test code 13.8 % 11.5-14.5 = 788-0) [facility] platelet count (count/volume) 2022-03-08 23:16:00 Test Item Value Reference Range Interpretation Comments Platelet Count (test code = 237 10x3/uL 130-400 777-3) [facility] blood platelet mean urwiix6545-36-84 23:16:00 Test Item Value Reference Range Interpretation Comments Mean Platelet Volume (test code = 7.2 fL 7.4-10.4 88935-2) [facility] blood neutrophils/100 jqqszhlpqr4280-09-33 23:16:00 Test Item Value Reference Range Interpretation Comments Neutrophils % (test code = 770-8) 60.3 % 42.0-75.0 [facility] leukocytes in Blood by Automated count 2022-03-08 23:16:00 Test Item Value Reference Range Interpretation Comments Lymphocytes % (test code = 736-9) 30.8 % 21.0-51.0 [facility] blood monocytes/100 kkhjtkoivj9360-21-84 23:16:00 Test Item Value Reference Range Interpretation Comments Monocytes % (test code = 5905-5) 5.5 % 0.0-10.0 [facility] eosinophils/100 dlvntmxkbf4685-69-32 23:16:00 Test Item Value Reference Range Interpretation Comments Eosinophils % (test code = 713-8) 3.2 % 0.0-10.0 [facility] basophils/100 zhunoxobmt2434-27-43 23:16:00 Test Item Value Reference Range Interpretation Comments Basophils % (test code = 706-2) 0.2 % 0.0-1.0 [facility] neutrophils automated count (number/volume) 2022-03-08 23:16:00 Test Item Value Reference Range Interpretation Comments Neutrophils # (test code = 751-8) 4.7 thou/uL 1.40-6.50 [facility] [#/[facility] in Blood by Automated count 2022-03-08 23:16:00 Test Item Value Reference Range Interpretation Comments Lymphocytes # (test code = 731-0) 2.4 thou/uL 1.20-3.40 [facility] monocytes automated count (number/volume) 2022-03-08 23:16:00 Test Item Value Reference Range Interpretation Comments Monocytes # (test code = 742-7) 0.4 thou/uL 0.11-0.59 [facility] eosinophils automated count (count/volume) 2022-03-08 23:16:00 Test Item Value Reference Range Interpretation Comments Eosinophils # (test code = 711-2) 0.2 thou/uL 0.0-0.7 [facility] basophil count (count/volume) 2022-03-08 23:16:00 Test Item Value Reference Range Interpretation Comments Basophils # (test code = 704-7) 0.0 thou/uL 0.0-0.2 [facility] [id number] 16:47:26 Test Item Value Reference Range Interpretation Comments Case Report (test code Surgical Pathology = 104) Report Case: [id number] Authorizing Provider: Nathaniel Dooley MD Collected: 02/26/2022 04:38 PM Ordering Location: [address] Received: 02/27/2022 07:57 AM Service Pathologist: Gene Carlton MD Specimen: Cervix DIAGNOSIS (test code = v2qqbFAsSJXtq1neVPVwzV 3220) FuZzEwMzNcZnRuYmpcdWMx IHtccnRmMVxlcGljOTYwMl svfsEeUGLavWQvO0Waxfwa UYelKD5eDX2cwGnbqQUbgD ShPKIkGeYul5gct379dIIp q7rbWWZNlfoliWb8cTttC1 7hr9B8YiueG44tzEHxDEI3 MWNtKNCleXKsUZTcDND6XI BdbNHsK0kcXRQwBB8gvlbw VJvdOUtoFMXisON3WGMueD SaV4KoARMnOWaiVASpjvp9 UmEpTy7llSBwuWpzFXotEK AaTGOlVQagCEKqGrYyV5JP XacFMSTVAHPDWFEJGX3JP8 h8IXKtbga4UMHuHMNMOCKM JdKVF7nEFDXECfPQWLRBUJ BgD0GfM5HCBF1GVIDaN0JO FBBXITEGST7HBHTwVXSmEQ Deq27qDM51BKzkMZE0i5sf dGYxXHNzdGUxODAwMFxhbn NpXGRlZmxhbmcxMDMzXGZ0 bmJqXHVjMVxkZWZmMHtcZm 0ovBLveKsuTrRoJJLis3fk ovIOcgaftPt4f7ktMZAoQk K6jCWtRFgvK2rnadUosFXy VDOlUKq3gA30OCFhvH7noI AiSRyypaGpXxT2EHadAENz HeS7YSHrjIGeXPJeZ3bjFI QwXGdyZWVuMFxibHVlMCA7 aSnrx2B8eOAclRIcbQdbSz DqLwQrFaEGc3BcQEx6yNdp Y0FpEKVcWdW9rSDzSCPqBY bgDZPnDGMjjdP9iY41MDxz gqX3tNLay7Wse12rb911oK 6euWSeZSI1OJTzMSWotSZb ZAMzTQB3PFCmpNKdH4jyVV KoUV3xlisaZVocCSsxAEHw sBS4PWEptQDoY9LiBNXwDE yrRLOdykr9JtOnDr8dtMWb kYkkDVwry5jzu6bcnFJzQp f0OLTcAhKbDxifBEllq6Ic r0qgCNCefa0aDGU6jHUiyX ltd2H8sIEgVMNshQFtNCRk SK3ktPEkFVGrgO1qrhybMI BnYnJkcmhlYWRccGdicmRy Jg5ioDiqSRD2TJizN8jysZ 6tViJ0ZVdwO1hurJ8yLAh6 LKozMZRtaGR3nnC7OIBmuD PhG4VsgK2dQUYnZD6adei1 b9moORN8GZqoXRBaFnZ1ew U4MWSbnAAzTZQcyJbxAYsa t824ZWX4AiFcKLEev1ZtE8 SktCpgR73siZizW89gLTOt sSfooQ3fjCligX0lWfFzGa VnEMmcyLxpWV1qLRUuY7im uZDdAVOeLEUgQ3ybGvShxC 4asJwoLWitkrKmILMgVvq6 CTYaxRLvKNQlFcf3XLLaTJ QiI28gldkmWNX5bW3my8sq i8AvUKpfYPF5PMAho55cWQ itvgW2MPxzJo50EQddSRG4 ESrrPYP0aA== COMMENT (test code = a1btkTKlLYRinQA0EfZwRD 7732) Qul2dvj0XvqASjwFIqMHcz yVRysiPzaj89fGL6tV37CH 6uOHRoBgQ1NMGrvbO1Eyl8 ZHMoXSHhzYPtB134j7jxz2 oooeVfhQY3jZhjAVUogeek KtU5DVakYNSknhjcEIe3UF mzRSDhuDM8MPZsfEWvE8Up VKFrJC3ckmg1SKX8DCadWC UhXxK7ZTQpuABvRAVwxFat XZuam089XOU7PkZjZMLhhs LdgFijsW6lBcOtTMAHePDo oTQ3uDXzkCmbTSnps4Ccrv lcm1FgU6MuthfgHRvqwDSt tzXnexEdu5IxPE0qYHveKL G4aB8fBHEww0plQUDsH3Dm ZN2nO3Yna4nrKLUwo6hmpa LzGWR8lKIfKFYhppTjpoFr OMD8iVPwyXZrbYRoeQNgpF Ssr1WqrMR3eaPaatBddLQ2 YCBsx2VfjK39PITkc19sZW Bhcn0= CPT Code(s) (test code y3lcjZUjIBPbhSA0YjKpIY = 3357) Nmt9hgj6RuuFJpkRYeABxv yATyesBofg77sHV5jL91IX 0nTGMbIdZ2NRUfgbG1You7 APPhDCOedVOlP553i8jax0 gmwjEasVA4bOdyTGVswbst AkH2PRxtSFKcgfqeRYu9AG xfZYGjtDH3RVErkDWkP0Db ZVYbNP3wtpz0MDL6JNzqDG MlJjY2YOAtmOSiAGEmtXwj IOydl737ZSH9NnSyIKBxax LcuVbjkA5tFhGrBLV5DUSq NVxwYXJ9 CLINICAL HISTORY (test m8djtTHpEOHivJF7PvEtAB code = 3356) Nhg1zei9TriWScaGMpKZud fDNzzdIewz33wSK3jI32MQ 6xXUOuYeT1ETIxbeE3Vgk8 ZGEhLFPekOCzP285k7wtx5 njvjYjeBE1eFeeRYQkkzvl TtL0GFxvAYQoqukqTDy1DE ikVUYmxEE7WAMcsLRnE7Qz KNJhSU3zspy6UQI9EVtcGP FnPlI6VUXuuLCaGETbfSzy CYeyj913EGZ1JtEqSNNmam SyiTexwH6uAsTuYEVtTLP5 Sa6sBP1gTD9atPGblzdvus CplgNeuaWhjnWkurF0HHXc x4e5lMKNZZd3TN6lYQkAHP AozaUgBplbhJ5fdQfgeXPp BE15tK4meYCav1HvkFQdHP gxwWdqlxWoosZtWEhrhI5i bEvdXK7jEqG2UUuvtqIaDG MdQCGdmG5rERUeq2ddoaSp YmRvbWluYWwgcGFpbiwgU0 8BJPGdvGtypMtkZQKgVN0e u2EnitZcCYWpTFCnO1TvBF Fqn3LzHYA2wmMbXAVpNYK5 pXX6l66zkItlLUBtHP4oBZ HhJVvsLJOlGPzgOX0rXBOv ahCkG8DfES3jt4Upa6m+b2 2vtQ7dQ6zcG7gsEEU3 GROSS DESCRIPTION (test u3azvLByTNEhiQYDLKFeN9 code = [id number]) pnywCfKTCvlZEpC2Wlistf VOzaME3vWW0zjRemeQZdjN TjOG7UFBFdAuMuKBPzfONv onIdDwQqMHGacNKsrOU1PG ThKB1ubbmwOUphRPplJSSt fcL4SPAmgSOvS6VoOKSqDV 0lycvdANM0PTfafF8yipGS IwvxSj8rgGOcbOhwEmIlEu NoYXJzZXQwXGZuaWwgQXJp GUo3uC0RDdjrSGH5JHURBj lnGGVyLE2Rs1gfKHDeaGUa VTX1AZfhnNNhAXZnJXYvOW n5HRUvYKkhzDYzVJ2qzFvd DjnbbKgtn9KiwAGzTLsuEW MsUNXtDSurEOPzXL8BZtDp KKX4UKz9CROuTWk4CPl4EM 2GKdRdEYJsVEX7JKG7IeVq WXd1WXkqET4FTXJ8WDE8EX yrBpX8GZY6DmLgGHJmCkFs XGYgQXJpYWwgXFxmbCBcXG 5kzKrgkXIbgdCXTmWWQUR7 aXguXHBhciANClxlcGljTm VzdERvYzEgDQpcbHRycGFy XGxpbjBccmluMCANClxsdH UfsRshdjMvRZOyE5TziiSs UIvhPIGwky1hqJvlYRutTr HmPIJkk3v1yWE7eVIchLC6 tSOpmIyySsMfHB8ceCXvVP 0dAMghTLvzuoFsn9TpOH31 bWJlciBhbmQgImNlcnZpeC IgaXMgYSAwLjUgeCAwLjMg bZUyCaLfK70jqLEwRPzePC ies68sxKW9dPBexHUvWmKu V75jrrQwEKFkcUvkAYK1nU IdVCPkj45iDAG1Of3iqSEc PDJxnwT3b1EwKVosSZScTs dcHVXkWUjmpNNkSS6EB6hn jZQmIMYWxmZ1nystMEgQRQ DPSCJmAOYBWJrreEhomN5u QKskeT7pZS7KGEXcNJfmXL CqhEPARBF1JS3qNGkhxILu oddaKWOgE5MfW5SwxhEnvU MeSPCcgzIef7chCJF5BOFc jGKddNBjQuPiMahzLOS3NF hre3ikGUU6IVXidXLnxXRy LEpiXkTeEfhiRVPnI4LdD9 GsdaV2YWg2 MICROSCOPIC DESCRIPTION c2iueZOiPLQhcYP2ScEaNX (test code = 3371) Mzg3wkd0AwvSHcwMLlCEdd bLWtorNehy54zDL9gT44TO 7gCGVfMcD2FZGjhkW0Bxv4 YJYrMGNfrTBbK919o3xxx0 atjhEdzJW3oIsvPEMgntom IlN4DAjjXCYwchsvMGe3VT tlPBFbtRF0TCAvfYFtY3Hy EJNgYS0elay3KLT0OIzbEA WzKgH7QWRbuSIgSFJdoKwl BLmtl328JIN1SzYoQFHkgn AtaNvcfZ5bBtMkVMDKPCOj o5ZhWZXqRJRngd9= SPECIAL STUDIES (test h6uyiPYpENNlh3pgDKJdsI code = 3376) FuZzEwMzNcZnRuYmpcdWMx PEehcnJbJYkvw2SuZ2WiCn AwMFxhbnNpXGRlZmxhbmcx NAJvBEY6feFaJOFvJKyuEF PoQKhhHr5gvNFgfRxxSbLz HLSag1xcjwQMjerezNc4i0 tlXGWvMbF3uPVaWMtuV4tz eaVqgJCeT1TriTNviPo9f0 cnAjKwZlG6xELdHFrtM0jr rjAowOAwMHAbXJb5xJ15RV LkfO8cyURuLXauvmBkCgM0 HTjaWJJqAdM5RNTbpQMpCX SnA5mzGLAaMVocSNUfFJwf zRBqSNC3jTaum8N0tLTfhW IneVctEnKnKmIgRoWWc8Wi TVj1zWpzH9UgQPMdOuC4eS QgUGFyYWdyYXBoIEZvbnQ7 wTjfkwIbq33ltRTgDCYnSY YrDgIuqZxhPQAsAGVQc9Eo vJloEJV5eAj7iGhkLhreLK B3Hac9AL8dwr32trv6bPfq CXFtgyjxAbJ7SIbvANDkqp geAJr1GIguEVQdiZZ9ZPKl xWFdV8KrRIOlJW8sgyu0KQ U5OXzqAWSpPzT2UMWuuBWz IJKqvMbaWTkkk301TIV0Ko AtXP8rQ4Dfw3Y0fR1wyQAb ETGdgMQsBuZaTUOadw5siX PrGCkod3LdWXT0ebB3mVSq eYVhSUCySC33Lqkdi7TaKo put1WdI85fmWU5OMvck8yq RP9uUrX4unLlWOpue4iesF 5bNmC6RCeaWI3iRY1rRTRd pJ9bemjaIXVdIuMfmjgaRI ClqBsntgMiQt3cxGgkFOY8 LEanP4nelT3fRiE7QEzmW3 nwpR6iBCz6CItphPO1KFCa hW0fPV9tpoaha1pxFSzfAZ kuKXIzufY8lkW3JSKtyZCo Y9XilA2gYQEnGF9blsqmj0 htDZK3JJwtGWRkNWA6WvNe ICDzt4Xoueg8AlVsd9RkrL CbQIlqL87xt947XYOwffNa M6judYTjeeyswMInlxnnNC vsmsY6BMEdUJRfIFyeFRRs XGZzMjJcbGFuZzEwMzNcaG ljaFxmMVxkYmNoXGYxXGxv P1omJjHpP5GgKVYpLkTdXV joYWcixTYzeCHqsSV1yF8y VY6rXRNymZMmH9OjSFYtys MgvUQfCEP1rEUclPClHO8l MQgtfTRew5dvw8PeS8gxkK wdcTY6BR9qBKEsZEBeIFyv f3SmlJ5zWiejoYIhqlpnVV xmczIyXGxhbmcxMDMzXGhp B8klQtUwEPQxkNvdCYmdc4 NoXGYxXGNmMlxmczIyXGx0 cmNoXHBhclxwYXJccGxhaW 5wBzMbSwHbPvpiSW2dYDId X5zftJElGLHvOEWlJ7mmBc OkwS7jgOzfRCmvOcBcZgMd NkDJb479hg9uAGFnvGBrfs AMvQAosL7mRNzhYCwoFCoh fAKmGYbeo0yuAHAle6k7jX DhWYSzomPqz1adYIqpvsZe NUTvcACifIBzEMExg95hDK oeaMnycPneZHJgf2DxqMvh c7VdFgYrSDwva0LpG65wuV JvbCBzbGlkZXMgcnVuIGFs t27rg7qdHIIuMdR3yBLegX C4uHHdhQKyj6RnoQgrGQVu b7wfGUYmnm8pfiunzPZql4 CwcL3cvednPSjrjLHmfeWv HEVzz0n5lYZbEHNnAISoEC edwMr1IDMth669jy3ebaF4 gCEeXTG4MQqyMUEoFHLviu UgZXZhbHVhdGVkXHBsYWlu XGYxXGZzMjJcbGFuZzEwMz NcaGljaFxmMVxkYmNoXGYx NSkuF2fhGvTzN5CkBEHpEv WarYJzH1fblRLvYLQkJJdd XGYxXGZzMjJcbGFuZzEwMz NcaGljaFxmMVxkYmNoXGYx MEelV4ehFsLmE0DbSXEpCq IgIFxwbGFpblxmMVxmczIy KBruvvrdTKJbJEgaL0wpKx FqIGFprPrxHEfuk6NlKVAj TDVaBushtpTdLJk3xdWjTN BhclxwbGFpblxmMVxmczIy MJdzbyabSEKhJHmcA5otXr JyFNAkkOvkPLgpo1SgERIe XGNmMlxmczIyIEltbXVub2 cum3EdH5booEufaSD3PTAt O1pukDIiwVA6VNG0hT3mVN ubhrIkCLAcv9DaITFpGRXt AsN8wF2xUQP8DfYSuAtcCY BsYWluXGYxXGZzMjJcbGFu ZzEwMzNcaGljaFxmMVxkYm VhQONpUCaxI7lbCkFpK6Te UEDcIdVemLnaRRuyKLe2Zl xwbGFpblxmMVxmczIyXGxh mlzlAUTcVWxjW0kcKtGhYV FczWdrELvog1HyYUOhNRJi MlxmczIyIHMgTWVkaWNhbC LEGC72NYXmIGDajZrmiD4h fVCYRIJzfcV0m3C4CHxpUD WwDDy6YUancxSbBHUjeZ3j DKStLO6cVQt7uxDkZDKwj1 CsDE2kTMKmwIYbQWX1SUZd k1WiN3Dxn1TrMMGcBYRcqt 1khuElNqAFoKOcGBBftb87 BSJvNY1pF3syWQPvWSKnog XaoEQcx1YcVXGnyGD2wZHl LN8VZzMAv77ePUXwOTEOle CjADLvaMwhjOX9bdT0cZ4a LiBUaGUgRkRBIGhhcyBkZX Hukh4fewHjLRApDLGlw0Nz yNIbqFNujuZfR7Jyl8BpTA Rqbr60MQsuvSNxzh86KW7a H8Smn8IciD0wTYqrXITul8 HwuKMvxJPzJQZaj8EpZ3oh ssezGQqmwDGdlC3eACCnOP o1OJDos5YgUMKzk8YfYnKr hxAlGAZyEHChAXXpvS88OH L0eHifkJqenfHdFG6rADAt jtHqMKVhADKqjS2fZWawwb ArXBIuhuK4e6H5LKqrVUQc hsEsYqxhTZR1fnZfdsJ1oK VzH4seawxaULzdPAGaz3Gw sU0hnSIDjWNjx7RkrTEstB ITvRMcQC3scbSgPQ6mWGS5 ODggKENMSUEtODgpIGFzIH N6QMwvIkfrTTO6jqAtPYHf y5PlZHehD7rqQ60fdPhkbJ y7uDNgmGanzMSkzCTlNYKz mvA4c0W6GOMsa2DcjdtqCS BsYWluXGYyXGZzMjJcbGFu ZzEwMzNcaGljaFxmMlxkYm OpZYLhKVerI9txHlIeLzKo TrbmDJN5vE== [facility] [id number] 16:47:26 Test Item Value Reference Range Interpretation Comments Case Report (test code Surgical Pathology = 104) Report Case: [id number] Authorizing Provider: Nathaniel Dooley MD Collected: 02/26/2022 04:38 PM Ordering Location: [address] Received: 02/27/2022 07:57 AM Service Pathologist: Gene Carlton MD Specimen: [employer]ervix DIAGNOSIS (test code = [id number] 3220) FuZzEwMzNcZnRuYmpcdWMx IHtccnRmMVxlcGljOTYwMl jipeFcQFMaoWWvQ2Qlyzuz NVfgNY4iSO9ybVnyhAQdtK TuZGKzItLkr3cee829tXCf f4puMUXLpfejiUn8lOmwO2 6da8U2VaagS87zbSRrYTD9 OIQzKDEltGLlVXFkGIL4OR TkzZYgY7qgTGGsUY8vecvz BTpoDEjuLNGerZP4GDTyhV CqT0VoOZPcKShnGTRxgep4 KzLrKc1byOVfcCeqGJwzIL TuYKCfKPtxVMNdCoYpX0FG VngKCUJZWYWKFAGEZJ1FO2 i0GGSdkdh6UGWkSVKSXOWA LzIDL9sIZZWEPkANZJEMOH EtX2VzC4BXOZ6DBRFcZ1BA UQLEPIYAGD2MRYPrXCEoFA Brl39kXR02PWhrJMK2b1ba dGYxXHNzdGUxODAwMFxhbn NpXGRlZmxhbmcxMDMzXGZ0 bmJqXHVjMVxkZWZmMHtcZm 2rfMLvzPmvMbMlCBHuv8qf neOWxndqtHd0s8hhDFAdGt X9eJNrWCybT3ncuuKfnNXu QKSaHPn7pI89RYKncJ6keN OeSSwvupShBgG4WDcjTUBn SdG0SFZbwANcZSOfR6scVK QwXGdyZWVuMFxibHVlMCA7 zSndy7Z1hFStiKEkqMghEv DaPxPjIuIRk9UaNMk7oBzv S3AgRHDeGpX1nMMuRBSfBC rbDVInZPCrhuB6eF91VWyv zhW5zHZep9Tdd63ov157xI 7asMWdXWW9HNHpHVJnrALj BHWfVZY3TNBlaWFsG3bjZJ SvLH1mjedgIRsiXAbeJMEe qES0IUYrqSLvM3GsDSRdGE bjMVEcupc9AhMaNr7qcSYz dVlvMWjrd8raj3cwyXCeMj y4PFOeDiLhYoglGFtry8Ny p2vyQLVfez3mLYZ3yZCasA vcf6P6nJXpJZRzqWUkJTNk HM3naSFxNJMprX1pmzzmGN BnYnJkcmhlYWRccGdicmRy Iv5bdGxwUQS7UMhaZ4ztmZ 1hJbB9NOwqM3gfgL5vZPe0 PDvfAORuiLY5fwJ1QTDjiN KyC8WfbM0tPXUxRE9xoml0 l1egFTZ2IFgoFVZmTwX8yw H5BSTauKCfQEEfgDueZYhl t770JVV5JaDlQARfs5OlB4 YwcSyaV36wqQtaD03mCVPf vOidkG2pzDhquA3rQwGoVc QsBAotmAisUX9sTDRkE8wt fIZrOJKmPCAbS5bdWqImcK 5szBycYGhvweGmBYRmCfr2 PJSsjXEySZFsEsc2PKToEC EcW51vfpqjOXJ7zI0zx8ng l7UaJTeuJXS5ZAQfb58nAJ jhkgF5KSleYp93HTyiLEV7 AQlaPBY4xI== COMMENT (test code = h2llfFLsPNLuoGD4IkThRQ 0111) Xzj3ajv4XaqNYqiPBxUAvu yCKrqaJjls30qZK6gQ56UH 8nTYYyUgH8DDOtjpR4Eqf3 XQFyKUAkzDPvY320i1hdn9 xpraQrvIA9bWmuONFiuzdt RrV0WZilTSUuaxryBIb1KX iiKGDmeKZ4EYAmaWKiL9Vp ZVDrJZ8ozsa4HWE6OYoeTW YzSfF1FZSuaLWyULDxhRbv FCzvg200YBK2IkNuHOVhuj HftXchiI8eJlIlNPYStNSz eWP6pOMgjZtoJDczd8Rphq vbi9AgE9KpwnznCEvktDZq mzAngaFtb7FfZB7sXKayDD D7rR6yTSDix9xrWEKzE1Yt AN8yD6Ouz8avIMKlr7ozrs HgWHY6dWRfUUZqeuZpvrFt GBX1eJLbsJFtrZGsiCQtgW Fpk3MxkRB0xyInzvYleFF8 RQEaw3AniY49UUHhn47xRY Bhcn0= CPT Code(s) (test code h6kkvTIwKAJtnRH8VwUoZM = 3357) Nhv6nts6EwtFBtyTDtEIrx iIKaoxJlgy89zFM7kM71LT 3sRDJjPpZ8OKGckeR4Nfn3 ELBhIWVxkAPmZ076f9cuw7 htmqNivOE2nGkhISKyhuim MqM7KHxgPZIuqdvfTVj0KI prRDKptAP3KPTelVPcU0Wg GHAdLC4uqjq8PNG9KGcaUE DmJnT0KRHnzRCoSCUciEng JZkrj931HXT4DaLfIDVnds TzgYgowV0dWvJtPOZ6PGJc NVxwYXJ9 CLINICAL HISTORY (test e0jdcHXzJGJxoNN9DuQrDQ code = 3356) Fly8jow7BjuWSrbXVvMVjj wVPhnoQrjr88xLJ6oA35UE 9pIYKtWlM7SOElvfM4Bpb1 UXWwAVCgmMXeJ774a1ttw4 zhwcDbbSX8vHmmURQymzxn IhX9NZbxEMYhceebNKa4HQ ybEEYnwGE0WUXoxLFbS1Jh BSLkWA0lmvf4LKF4XNcmPW GeJqA6LGTsmGQtTJEyqGwo REofg284EOR0LjYmVEOtkz YpxSoefE3oRsOtELPnOUJ1 Yu2iDB1hSE7vyCAllhwemm MnttOlyxNammRxrpN5IREf w7h8lKEOARf6HY9lBCzEUG EdfnQxEirvjX8qiRndxNOi AB13tZ7cuCMag9OqwSFzFZ kqbJgeemZzmcJaWDmmdG9y pEloYJ3xMoF3TMvppeLtJJ BePXQhwY8eHKWaf9sbbcEq YmRvbWluYWwgcGFpbiwgU0 8LLYPenPsqdDvoQKFqGG2i r4UelaXyHASvTDFmQ2UkON Bye8GpJKY1lqWjMCOsBIN0 eTM2u16qkJvyWETyUV0iYV BaZMksRUJySGcqCS3cADWn sgExB3CnSG4ni6Cvc7x+b2 0psQ0fG3liP7jrEMM5 GROSS DESCRIPTION (test v5aruOVaRHKyeRRQBSBuP0 code = 9068062339) olxbZdLRDleDIdN9Vrmktm HLmcOF3vNT1xiLabfIAcoQ NnQV5LYAKdKkMmDLDupZMw amCyAoRpVROhjUTzjBF9WE FpCN5urvxuCKlbBAvnLVEy efZ7XEAhwTRfG8VdXJLsIS 5yusyfODX9MLjlrR7flfLT WpnuSr0wgKChzUtdThOzTu NoYXJzZXQwXGZuaWwgQXJp EBn4bL3SDppyUSX8KDNBLl abLVCgMF7By5akMDEvzLNq FJM7MJyucPHpFOJdQVLdJR p4ANNbLEkqeMTqBF3stTur RccoiBbla0FzwQCyIYikWT IoKNCbTNdcHLJhLM6KFcDg YCA4FXc7UCHrIDc0FNi1HX 7PCvBuLVLwUKF3NRL3JqFy BZp2ZNayBC1BCWE8ESU8ST heEeI5AEB6XaWaQPQuAyTj XGYgQXJpYWwgXFxmbCBcXG 9xfSsmzTBbptYPRdCOJOS9 aXguXHBhciANClxlcGljTm VzdERvYzEgDQpcbHRycGFy XGxpbjBccmluMCANClxsdH MohMbmymYgUMLxU6PufmXn ZCqvSFFsha6srVnmPNhvHc AeLUXle0o4qXT1yOFxqRY8 cVXomAyyKlItDA9wuLEnXR 7oULuqVUqezvFkd5CyOJ19 bWJlciBhbmQgImNlcnZpeC IgaXMgYSAwLjUgeCAwLjMg lQVtUkQiP62kpPIdTYiuDA rmj20vmEK5oKBsnZVjGcNx I15jndLfXKKzmYviRPE2tP GnKCNhf57fTBC5Vd4msELm FZHfasQ4q1QjLJujUOReSu kmELOaWMoflPXlJT5JX4fg mLAuQHYGkbX0chkgDTbNOH VNHTXoFPBXGHounPdvoX9a GSoszJ6xDB2JOEAjJJvuUU SxtWNADHX3QX2yCOzjrKHa fyolNEVnB8NuJ3HpuzPqoB CoREXvcgBfd7hgQWP6CYRh cTYuaVHbJnNeIivcIAP9YY ncs7nrSGM7QLCroTNtmXMs VYxjYeInGwdrGLXcG0MjJ0 DlxmK3JPa3 MICROSCOPIC DESCRIPTION v3ujzFMhRJXxzSS5YgKkSB (test code = 3371) Lco2kwh6OdiBLzvLOrWDhx cGKgqmFbjm42lIB4tU38DP 8pKCDoHmG8CQIisiL3Jwg5 DVSqKNTerRCtQ153z0fza2 ufxdAgrJV9tDitCBIdxylj WqM3PWxiJFFjhssgNTe5VB aiHDAxhUS5LEPzpHZaA5Ld UFHxYJ6owdx3DJZ3EQajAW GxXhD7LSGjjWEfNNSycOwt LVbnt732IDL9YsXtWOAhee AyvVcglZ0aZnPjTIYJBBVz v2RgDWJuWINppy7= SPECIAL STUDIES (test b9sfdRCyWNEhi1gvAMQjbG code = 3376) FuZzEwMzNcZnRuYmpcdWMx RJztsyNtGZeej0RxM8NlYc AwMFxhbnNpXGRlZmxhbmcx QHOeCKM1omHfNEVaVAghOH VoNXlxNy8knGVyxCglBkLg TAJll4iwmkJFfdaidRz0y6 hvXNZxQjH8iHYgARgmP3xx knSiuVZlF6WlxRMnfKz3j3 jnAgVcYoF9eDGwRQnxS4op yqWtuXPhNKFpMEy7oI07PU TavQ3zvPMmBCewnrThWyC7 EDblRANnCjH7DDTtxKJrYV QrE6fhNEDnWQjcZPTrPGpp kWTcSTK4kFhil9V6cEQdiG RkgJwcUnWgWbWlFeRQg2Gb NYq9uFqaG6ChFXMsUqZ3uC QgUGFyYWdyYXBoIEZvbnQ7 aMeyrzUev99eaEFrCZUpQM JpNbMhoLduAFJuERRWa1Tv oDykWQU5lGa5mTcfXjviOJ D8Hww5BU9qna45xfz4qJhi XOSnaykqWiK7QOhzVQNxfx zsEAt2MZfdJJVnyBA3JRHf nVJcU5GsXXNsNZ1axch9AN H1UJhgSSShNrP5VOMxjNJr VLTjbOssUOrgs210NNO5Gl UuZX3jV7Wxl4R4eO2ceUMg BNMckBRwWeCaZOEkvy2miF PqUTvnm1AfXKU6ddL5oZEt dZTwVEIdFV18Bzdyf1SiLf fbl7ZsB30mjCO6WXugo1uo YP9dPxE3syInUQzdf8xmiO 3gDtK2GNccZF0zQM2mEHEd pW0ypopcUOFfUsDsbmaeCF KgfUrcqqDfBz5umOpgOUK4 PZwfB4kjbV2nRsO7YZagL1 iqyG3aWKf8LZmynBM2WNVe lO6fBC4qeunya9iqDPljZO tiILYyroC1ldJ1ZFBmxHVb A1JzsL8jYYDiKA3xxqtsz6 xkYXX5VKmuBEKhVZI5UrTp LZArp1Icakn4GkAko0CdlH DrGPxsC97je256MNLrxtTo Y5nbdIElkeglgSGbtprcIF hgfcX9QUBlKLYdIZxrOVAl XGZzMjJcbGFuZzEwMzNcaG ljaFxmMVxkYmNoXGYxXGxv F4wfZwAcK0KdHMHeAxFsBO voUTtbfVMneKZovPD0iS9k KG7vBSIifEAhM2MbWZGfim IgrXPtEDY2dOQpcQJaFZ3g MJhvuRWrx8vvq2FxW1azsY tzgLC3OY1fGQRsTPSgPMyp y0DffS0hZdavjJWclddgCE xmczIyXGxhbmcxMDMzXGhp I3xcObGvCMQojDspWKcdk0 NoXGYxXGNmMlxmczIyXGx0 cmNoXHBhclxwYXJccGxhaW 9vQjPjXfQjYuwnFK0aNGIy B6ysoCJhRBPjQMDaO5ybGj GpqG0vrKdfHWmoAuMcIoIs JvGUw111nf8lDXSagIMfwt AIwOPnwG2wLFypKUsuWYpz rEFpWXasg1grZTMwi2k5sF WeEXCmsrXrc0axKWiaesXt SXYyeNDhnAIhBCTgl45rRG kvgDqvdWodRRJkn4LmqIxy a4LeKaFoTGkke6YxS14ldW JvbCBzbGlkZXMgcnVuIGFs g18lw5oyZQSiYyK8yOFcwH C6fZGcaXJxz5VftIrqDFLr k5tfLPWlbr6fnafsgJTpw8 SivP2pdkswCHikwJQmpiUd FYKit0k4lWEaWQBnMNBdZK exuEb6VLCam890ux5ellO1 hQZmVTX6JWqmGZGdNOUykx UgZXZhbHVhdGVkXHBsYWlu XGYxXGZzMjJcbGFuZzEwMz NcaGljaFxmMVxkYmNoXGYx DWooU3guZxSoM0UqVFQfEs VneCRbL2ianTQbYEVgJIyy XGYxXGZzMjJcbGFuZzEwMz NcaGljaFxmMVxkYmNoXGYx AKioI8fbLcNbV7NfFLWsHm IgIFxwbGFpblxmMVxmczIy CUsbmmgnEYYbSVpcT2ycEf AfZKCteGigUPphr0SwXRSd SGXoDpqohaGeVPf7oqIyKT BhclxwbGFpblxmMVxmczIy FZkrumraUUIlQPvtF7ubXa ZnBFIryOyeBQrpu4XnGWTq XGNmMlxmczIyIEltbXVub2 ubi1YtB7fxtZvhrUB4MRJm Z0kxmOMyuKB2XXG7dP6yLF xptjXxEGEtd5KyFIEhFXXi DqU3nF4mUEY5XyKZfEttFL BsYWluXGYxXGZzMjJcbGFu ZzEwMzNcaGljaFxmMVxkYm PdNVNvCDrgT6avQvCbH7Mf KWMhZnOkmCmvCLgfVVs7Pg xwbGFpblxmMVxmczIyXGxh efhcKRAyIQqxL0rgDjMkLE CjcMrcUEqqp6ZxMHEzQRRd MlxmczIyIHMgTWVkaWNhbC UQMK46BFZcDSWjxCdblN8n rNBJEADytdJ3f6D4ILqtIK ApLCp8YQgccjWoNZJneY2l FEVoKB0aIZi9xwYjVUUub8 IuTE0qWRTtgPUzPLQ7KUAp f9MgC3Qal3GhZEJuIYYnqc 1kbwYmYtVBkFOqDCOoum08 PJFuWC2iK3jgNWMlBDByib NhmPSxp7XyKTJogKV4pSOb ON2YJaZYw10eSRDdPVJQwi DzJHNbmRmpgLN8obL8qB0o LiBUaGUgRkRBIGhhcyBkZX Fzfs2txsVbHYZvKTWib6Fz lERclSSbsfNpN5Opm2LeCB Xxvd62RRqpwQLcqk08UJ0f A0Qrt5VutN6wCOjxJNKze4 DruYLetTKqTEXnq7MuJ2af jhabWUdpyZWkwP4gADYrTE h3UQCas8UfQCFde2PfGeZg wtHtZOZjWAXtELZfrD65XU I9iOvnmPypnbYzVR8mQKAb bcOfUHVcUVPehO1hZIaomd SiXFDtupM0k4V2SHmyNBFz guGtQkeqEFU2zfKuohT0eL WwC9cejjlnEOfuSBNgc5Nt oK9ltXDShHDql9QikIHckB WRtUSpCQ8xcePfSG1fVCR6 ODggKENMSUEtODgpIGFzIH R2XCboGpptTTE3zhJoGWXs m3OqRCbqQ9csO70dsKwmlK g4uFMtnGytwMDbfHXaZLCc lqY1t2Y4QQWpr1YzubexLG BsYWluXGYyXGZzMjJcbGFu ZzEwMzNcaGljaFxmMlxkYm SsXOVgKOiuP7tgYzYjFaKt SbcaQTT1pS== [facility] [id number] 16:47:26 Test Item Value Reference Range Interpretation Comments Case Report (test code Surgical Pathology = 104) Report Case: [id number] Authorizing Provider: Nathaniel Dooley MD Collected: 02/26/2022 04:38 PM Ordering Location: [address] Received: 02/27/2022 07:57 AM Service Pathologist: Gene Carlton MD Specimen: [employer] DIAGNOSIS (test code = y4ycjUUiPFOck7meHWOwxH 3220) FuZzEwMzNcZnRuYmpcdWMx IHtccnRmMVxlcGljOTYwMl ruzrWhEWVouTIvZ9Hcydxl BVgdQD5aWL2jeCjlfGSrmP SjUYOfWdCyf5pry491zIFb y8etSGRSbgzxqNd1qWqmO7 1ju5W0AutaR75xuVRkOTX3 YRUpTEEpmQVuIPFoIGO3GB DklOWhI7fnAZPwMR9knjfx BZdfARxnDEAeyAS6YAKrtB BkM7TkNDRqCDvtBRFpxas9 EuLeIs9rvKTiyNozVEuoDT DkJUJyTQnkAQBdIpNdD6SX TymUMGZUGJWXOWRJKB1GT9 p1JWDulfz1GGWeQIHHFOPW SjIWK7qQKUJMBdUZOLVBNL PdL2YnK0YTBB7PKFAvY2BR EMCJHNCWUQ2YNTNsNHLrLO Hfs64tXR80LMkzJRU9t3pj dGYxXHNzdGUxODAwMFxhbn NpXGRlZmxhbmcxMDMzXGZ0 bmJqXHVjMVxkZWZmMHtcZm 4txASqrTpzEzTiYDAcd6qd cyWZewfjqRr0s3qvRXWpLd M3nITyGYxgZ9ascrKjkBYq ZYNtUGs1pI08OXBgaZ9wsB RlSJpiboYiHwH4JMioCPFc XiE0LXMwuYTjDUXfB4wiMS QwXGdyZWVuMFxibHVlMCA7 hQlrc7O9cXCeaJZjvKevWd IyTlCtFrJEl1BiQKw0bSqe Y7LeFKIvAgS6mUJkKSOxLP aiQERdFUMxkiD2iE76EIch mfH5sQIrl5Yzf77hx575bK 1gqJQuSQA7TYVlMGScdMXv VNJbULC0OVPbyJYjW2bnRO PsVW4zpvpiZQmsHXlhAWLb eUV1YXLwiFJpU9IbUXDjKD pcLVAejal2XpAqGt8kkHLg qUzoYRzbw2tpg6qcuRXjXq n2WLVeRoKcDkcbTNsbi7Mj u2avIWDbsf7bVYY2gAOdsW ccf8Z4bZTcFMTthVFfQQQj BH4tuHZyLKToqR8oafdaMC BnYnJkcmhlYWRccGdicmRy Dt9saYinPUO8KAkmF5rjbU 6xAwZ3WAovC5qnjP7uKFh4 TTaoPWUbbYN8egW5EDYnjJ WyT6WtmF7cLDIoZG5sjeh0 g6vdYUW6HNioEQZsQmO8gs G1KRNzrDChSPJvxSruDEox l948BNQ6ZzQgSGJyf8GsV2 TatBnpZ92svFmnC80wOXQl uYpqmC1glWjfsE2kYbNyOm YnHRnriLagMK0eVSHcT1ux tSAjOQAzPKNnP0qmBeRuyD 5krThdNUnpoxChXKXsToh8 JKWnjZBiXQUvShg3FXShHZ OcT31zxlngGFP4sM2hi7tg n8VoCUhtVWJ3MGFad14eDW yuohT9YOaaWx79IFixRMA4 XOwlKDQ4iO== COMMENT (test code = z7tbbEDkKRWsuBU3GpPtFV 3354) Hsp7tib6GwwLJrbAGxLZzl vONhonZykw94uDM9aQ24VI 5dKGHdIxD4XDZwgmM0Cpx9 NEDcRRUiyWKuU435m0kdl3 jrbmGahGW7jCnlVCBonhtg FlN7RQfrOAAkbhfsHZu8ER hdIAFtsSQ5KLBeiANtD0Fh TMGbDB4xmim2GWH9CKgfQN YqZfS0PUMxuEMeZJKrmCcv SYyag823SOW9QeCtWPXvgv MvwJjdfQ3jIlSkTTECdBGf iVS9zXUujEnrTKoox7Vxkb ueq3NmN8PkwqeqEVkqfNUo deLftqIto0SeCC4mJTkgOY N2pE1fQGPce7pqKLAtZ7Md VI2cU6Btr5fcOBBta1uyoe CaXWF4iMOdYXUddkJmraVc BME3sYUacKLvpNWxlDMfpG Bla0LptER6ttCubySdbEF4 TWAql4DulW43JBJdk11xHV Bhcn0= CPT Code(s) (test code d2ydrNGsKMAymZG7KiHnTU = 3958) Rej9dfr5FqyGAryHQzURte uXJsemNatj72aLW3fE33YX 9gPWJmMhB3DMOetcO8Gsh1 GLUiCQSmiVDbQ657o3qxw4 sqiiCkhUJ7yMclJAFkwnvf JlD8NVofIPLmfuimZCi1WQ ntGPPrsMV9XPWnyOZnW5Rg ZRWxPD7desi7NQJ2WBhdRE PeYyE4YHBbpDQeJVKeaIft PMhlv478XSF0NqQvBSYjhz XnlIfktI5yPpRqBCP9YVNl NVxwYXJ9 CLINICAL HISTORY (test u2kmnLTsQVUtqVE3DfMfKU code = 3356) Qlw5bzw3BogFVgvXSlCAbn gFLczuMouu71gAN7xH60XO 3iDTZfOlB2HUImdvE7Tin6 IHXmOZFfiFAdY759j9kfl5 jfudHwxZV6sTgqIHDvaspa CfB5VLwmRMWbopadQIr5YV trTACpwAS1TICkoUNhD7Bt EREcEW5kwhm9MDK5YVvuMS BdTtO6DAEzkXAzHBJruIfu MFilz484OEK9WaGzYGYalp EliWumzU1nVfMyPXRwFID2 Uu8nAP1kDR1caPRspregnl EvxtYsqfSyonHdhqX4DCNx h8y8cRGZUVz7NP1mQAvDLV LslzXgUrbfnP9jzBhrjZNo FK36pA1uqHMjv1BqrHMzGU crfGzwejKkjpPyVZslsY5s bHmjWF2zUsC7MUvkzwOcVK MxOWDdwQ2jNVUiq3dsiiAl YmRvbWluYWwgcGFpbiwgU0 8AUWMxeCbkbFddODEcGU8u m6AtrkPmOBGtLVSiQ6RqQV Vfq3WnHXX8avXtUZUpBSZ3 sFL0k08wnMibMJLrYJ2cQZ QpUGbaFUCaRPbhWY6kOVNd sfErE5HxDQ3qt7Ayy5q+b2 4rnZ3pZ7fgS9stCMP8 GROSS DESCRIPTION (test j9mmyRBvKIBuiBSDLOCeM5 code = [id number]) dnxbVbOEYovVYxV7Xssury BMzfBZ5hOQ4vpEdbyEFhkC EkKA9LYAXlHjFtNQCylAJe wzAlLhUbUSQplRGfvTD9SF CkPU4zxdxfKDeaPRhlWHUr emN6YJUgwMXrF7EoBUYvED 0ormkyHGV3TCkasS5nvqMY YqooEw6akBYnhIbfFdTaYg NoYXJzZXQwXGZuaWwgQXJp ZYa6aW0DOrnwVDI6TTBXLp ahMODyOH4Uj1ovZKPioGCq NVC4YUafjTPyWDXnHEHoYY p0ZNZjLLhpmJVnKZ1bzPfp FqvetWzhv4PkhQXwUKiqZT DjXRFmJGobJZNdGE8TWpOy ACF5LIr8ZNXuMXr9SJn9ZJ 7MUhOgOEFaMVN5SGJ8IgGg GRn6JAqbMZ0IQXY2TRD2BO ocKkF5LUM2UeQlLXFvOwYc XGYgQXJpYWwgXFxmbCBcXG 4kcVapjCHvwgBDCvXOING1 aXguXHBhciANClxlcGljTm VzdERvYzEgDQpcbHRycGFy XGxpbjBccmluMCANClxsdH DvlCnwzoMeIUHzZ4KmlgKj GQodBSOkvc2cxExyFQipXn JdWIPfx4m1yBA5cNDjuOH8 wZHmjAwcLqBhYZ3xtVPzPS 4oYCszHBocdiGjn0HnUB54 bWJlciBhbmQgImNlcnZpeC IgaXMgYSAwLjUgeCAwLjMg eWUwUcLdK75lpMAzUToaMS hww74seBO6sRQmsCWdFmQn D36qtgKvGLNqfCqdEKN4yW KcGGVwb80zPUF2Jh2uaWNb LTMpelZ5f0QhQItnFTYgSt bbLOCuFZxbcKVcTU4CM7du cDYtOXFBwcC2oyvoKVqSMQ VDWBCnXQEOSXuhePtynH7z HNuncI6eHR9PRDRvLXqsMS CmhUJGLPY7ZJ7mTAsxaZBx zbdbNNRwN9GmM2PclqPioW RpOLJmuyQnq5cnETO9FLVj fPZkfNBuGqCaOhonZAN0US qnt5quTTV3UVNbpZUhlBYy XQmzTiKyRqhiRFNvQ1MtC1 GjhsX1OVf9 MICROSCOPIC DESCRIPTION x7prjSNzXRNnkVP7VyLpFH (test code = 3371) Ykv9amx7JblCOrlNPkWPex eGEcjwGwme01wCI5dO30SE 8cCMYlYzG1MWDqnoJ7Zsi9 QTWuUSDlvOJjM730q2zwr4 nlosZptSO3jCjpCMSnxkuo EcC4DUebSKAyraylHNi2AX lgAQDpiVR6VEXaxUKtC3Lb DNDhIU7bbbk8YYX1AOtaAR OmZqO9YYJygQPaZQUwkPgh HRdxz429TWJ7JaXiESHfxu OpkJcqoB2nYyAcBIIJHYKn q7JlDUOrZLXabs5= SPECIAL STUDIES (test j0tecFHtIMOna3cpBYEtkN code = 8817) FuZzEwMzNcZnRuYmpcdWMx QXzsvnDqQIgtw8KsD2ZyXv AwMFxhbnNpXGRlZmxhbmcx JCTwUDE6zcEmIJObEHccKN CyLWldRj7wpQHilPweNnGs NOBsm6aipaFArunqdLd6r6 lgJMEqGeG0gEZyNNjtO7yd jeAxlCGjD1YmrXLqdDe5k6 gqMfEkOrH0cJKdJPorN2sl giPphYSuISGpYYz9zG79BM GbeU3nsIRpVGxtnwJrKrY1 NJnvBQPjFdK7AFDelWIwQY UbN0xbZCQbBYbcOBGzAXfa jKRxLYL4wGnab1H8lZUzsK TssHdySdOjGtFpFxPBx1Ce LPk3bVyyD2HzIWCnTeN2yN QgUGFyYWdyYXBoIEZvbnQ7 vAsptpGcp04mmLMkACGdTI KmJbGzaGusKPZbXVPEy2Vi vTbbIYC3zQd7qQktVbwnLN R1Zou7LE5lnb72fca4eGah OHWlxwpkGdH7DNihGNDgdc hxBXa6OIesIEYxyPU9XIAm lAJtK3MsLBXgHO5avmm1AA A9EGffEZOnKfC2CENqyWNc CTBhqNbjYMnqi438FCU8Cg KtUZ2wV8Isw1L8sS1qlPNe XXWxrPBoSrNzQRNavu9csI IoCXoxu1PeCNC8qdJ3wRYp gHZeNPBcMO45Iutfp2EgOb sre1SkY42qoXT8ODnig1yk RF8xFaR9mkXrLPncm1glkG 2zNnQ9IMikGZ0mJX9mQMEd wG3kpwotOIKoTbOjkftqZU FlvGrrnoCvAq8ptVraQDM0 KNtmO7ycoZ7fDeH7INbkJ9 yggV1gIJy6NYjfpKG3RFIr gJ0nRE0htvguf7haEArrMJ hoWLAyxhN0uzC9QTHcjGQb X1BimB0bYUQcQB7jfzttv3 yrUQV2LSloPEXnAFZ6AwQa YAYko2Xargn6LhIqv1NvkA TbWIhbS03rv522PMJnvnVj R7ubrWWlojphnEDefoaaAD freyG5DAMuSENmWItqJHMt XGZzMjJcbGFuZzEwMzNcaG ljaFxmMVxkYmNoXGYxXGxv D5pxTrLmK4IcWJYyAcXoZD udHZzzbWBnzOWbpRV9aO0z MR8eCRJkfIMjZ8KxPYQifu EhtLLpPQQ2pSGbmGIeTV9w TMyxqTAqj3ciq1ZkY4yxcE vkbVD8HG9qDNYwCZBcSPaz e0AvhR6dIrkqbROwynlmJD xmczIyXGxhbmcxMDMzXGhp O3tfXnPnRIZqwIrmSCwsa2 NoXGYxXGNmMlxmczIyXGx0 cmNoXHBhclxwYXJccGxhaW 9oQkDoTwPmJqhfGV6xFHQq H5lgeISvAOOrXCPxU9sqZz EvhY8koBdmXAwiJaHdXaKv IgKIs307hs5nRPQniJTmin IYqPWbxG5nJBonCMshUZoi pVGnHXgus8quGPRvq9s2pU LbHWSvhhHtl1ktRPpryiIv KLCraLDboXOyIJQav97wHG ngjKqqkQkeXGWyo0GhkTas e0BhMwUgQBeqk9IvT17kuX JvbCBzbGlkZXMgcnVuIGFs o45dx1lxBRIjFsY0tGGffF Z5tYPbrCZan1XpdAowZIDy f8wsNXPtgq4phtptzPZgc9 ShoP5tmiznTWbphTTgxcSg PHDgb2o7uPAbLPPiOCAwOG vedXj7FFYbt396pj6hkkY7 pBSdHHI7YJwxZIZiHVDkhb UgZXZhbHVhdGVkXHBsYWlu XGYxXGZzMjJcbGFuZzEwMz NcaGljaFxmMVxkYmNoXGYx XAitX1xyGlZoC6MxPHSlQl MowWKhX3bfoSHgJOOfHDaz XGYxXGZzMjJcbGFuZzEwMz NcaGljaFxmMVxkYmNoXGYx LWlzH6zpEoKqI8UxAQSkJf IgIFxwbGFpblxmMVxmczIy BNoipuuxCQPuMTcoK4guKf SxUWVggIugUOedp8HyQRWu IPBoOioxprMoPFc9roNgVI BhclxwbGFpblxmMVxmczIy MOxrcssaQFZcRFmoA2ccVz RuCYJwlDikMDzqq6XaCUFw XGNmMlxmczIyIEltbXVub2 pco5BiD3atgPhszMV5EADz J5wkjWWkcVX6PYR5yZ6nKE rymiPzEQHll8SoVWTdRQCa WzA3qS4bCBZ2UyKWyAqtCV BsYWluXGYxXGZzMjJcbGFu ZzEwMzNcaGljaFxmMVxkYm GuAISaZSwaQ3btBfBpM0Fx MMTeNxNnpJeiNAhqYBy8Dp xwbGFpblxmMVxmczIyXGxh iyhpFQVvDLbtD0ddWzEyMM UivAymXBaom3VfPRKsPBZw MlxmczIyIHMgTWVkaWNhbC WCCE88AVZeHANvkSacpH8y tPTGFLTlqjK4m1U6CKymGY CeUAd8UHetxfDeHTOohA6g QDYmNR9mDDb2vvHaSEVwg5 SoPX4fJHGwdOUwUUS4JEFr c9AdK2Hyl3TlXRJrLQVlsz 2hqiQmHcPHaPZvWUDlto65 GDMwLP4lG0sqPTKjWXWpnb OafZVvm7WyARNenKW1tUSm JI5BPdSNb81gEUPxSLZOtp QbCSPwcXmrvSW0uqA9jY9r LiBUaGUgRkRBIGhhcyBkZX Hapl6ooaLeONHsSSRuf6Ak rFJlgSEwwoFcH1Bgl5PzEY Azlv74AUlwcROlxh58LA8o D8Obb1RnkO0vQHtpGTLoo1 GxkUAwtNZdWKJqh1HeJ7jr qyvpBKzokSRgaJ7gHRHgVJ d6FINdn3XdYCNhf1WxOyNz crRgEJWeCCLbIMNbgF68UY L4mQicmZgajkHkBH0qVSCc dxVgWTXtWFCnoD9yPYborp UrQWXffvP2p5Z7XKfjVWYc lgRhUxmgCQX7snBhneI6vL ZuE2hieqesQXpsDBTwj2Cw bP3olIUEbTWat6RsoLVxsQ GAyQJoPL2ttaDsKI5iNCD5 ODggKENMSUEtODgpIGFzIH B2XGdrZlhyKBX7igBsSZCu b7CpJVspD2oiD07vmJhieC b2hHEdjEqmaLXzdMMfOEKw dmK4y9J3ZOSms7FqohzaDD BsYWluXGYyXGZzMjJcbGFu ZzEwMzNcaGljaFxmMlxkYm PqUWRiDKkkJ4hyUiKaGxFk DemuBWT5iP== [facility] HospitalTISS[facility] [id number] 16:47:26Surgical Pathology Report Case: [id number] Authorizing Provider: Nathaniel Dooley MD Collected: 02/26/2022 04:38 PM Ordering Location: [address] Received: 02/27/2022 07:57 AM Service Pathologist: Gene Carlton MD Specimen: Cervix CERVIX, MASS, BIOPSY: - SUPERFICIAL FRAGMENTS OF SQUAMOUS CELL CARCINOMA (see comment) Signing Pathologist Direct Phone Line: [phone] signed by Gene Carlton MD on 03/01/2022 at 4:47 PMThe patient's history of cervical mass is noted. The tumor shows focal necrosis, however, there is no cervical stroma present to evaluate for invasion.[id number] y.o. female who is incarcerated with PMHx of AMANDA and "hemophilia" who presented with several months of vaginal bleeding, lower abdominal pain, SOB, lightheadedness and fatigue, found to have symptomatic anemia (Hgb 4.4) and cervical masses on imagingA. Cervix.Received in formalin labeled with the patient's name, medical record number and "cervix" is a 0.5 x 0.3 x 0.3 cm ochoa-marin soft tissue fragment admixed with blood submitted in toto in A1.OCTAVIO Timmons PA ([facility])cmPerformed.The interpretation of this case included the use of immunohistochemistry or special stains.ControlSlides Examined: In-house known positive controls were evaluated along with the test tissue. These control slides run alongside of the patients sample show appropriate staining. Internal positive and negative controls when available are evaluated [facility] it was developed and its performance characteristics were determined. It has not been cleared or approved by the U.S. Food and Drug Administration. The FDA has determined that such clearance or approval is not necessary. The test is used forclinical purposes. It should not be regarded as investigational or for research. This laboratory is certified under the Clinical Laboratory Improvement Amendments of 1988 (CLIA-88) as qualified to perform high complexity clinical laboratory testing.Prepare [id number] 23:54:00 Test Item Value Reference Range Interpretation Comments Unit ABO (test code = A Pos 7259200) UNIT NUMBER (test code = [id number] 934-0) Status (test code = 6088976) [facility] (test code RED BLOOD CELLS = 2263) PRODUCT CODE (test code = V6476H96 933-2) CROSSMATCH (test code = 2264) [facility] [id number] 23:54:00 Test Item Value Reference Range Interpretation Comments Unit ABO (test code = A Pos 6467566) UNIT NUMBER (test code = [id number] 934-0) Status (test code = 9993005) [facility] Product (test code RED BLOOD CELLS = 2263) PRODUCT CODE (test code = J1676S46 933-2) CROSSMATCH (test code = 2264) [facility]ATIBLE [facility] [id number] 23:54:00 Test Item Value Reference Range Interpretation Comments Unit ABO (test code = A Pos 4380030) UNIT NUMBER (test code = [id number] 934-0) Status (test code = 4142775) [place]_TIMEINCHART Blood Bank Product (test code RED BLOOD CELLS = 2263) PRODUCT CODE (test code = U5049W93 933-2) CROSSMATCH (test code = 2264) COMPATIBLE [facility] HospitalIN[facility]:1 MIXING [id number] 14:04:42 Test Item Value Reference Range Interpretation Comments IMMEDIATE PT (BEAKER) 13.6 seconds 11.7-14.7 (test code = 1487) IMMEDIATE PTT (BEAKER) 26.4 seconds 22.5-36.0 (test code = 1488) IMMEDIATE 1:1 MIX PT 13.2 seconds 11.7-14.7 (BEAKER) (test code = 1412141160) IMMEDIATE 1:1 MIX PTT 27.5 seconds 22.5-36.0 (BEAKER) (test code = 7787258715) 1:1 MIX, 1 HOUR INC PT 13.4 seconds (BEAKER) (test code = 1501) 1:1 MIX, 1 HOUR INC PTT 27.3 seconds (BEAKER) (test code = 1502) MIXING STUDY PATHOLOGIST Normal PT and PTT INTERPRETATION (BEAKER) at baseline and (test code = 1219047666) after incubation. [id number] Christina Ashby M.D (BEAKER) (test code = (electronic 2608) signature) FACTOR 9 [id number] 10:15:32 Test Item Value Reference Range Interpretation Comments FACTOR IX ACTIVITY (BEAKER) (test 157.0 % 60.0-150.0 H code = 666) FACTOR 8 [id number] 10:15:32 Test Item Value Reference Range Interpretation Comments FACTOR VIII ACTIVITY (BEAKER) (test 377.0 % 45.0-150.0 H code = 663) [id number] 05:22:17 Test Item Value Reference Range Interpretation Comments FERRITIN (BEAKER) (test code = 18.37 ng/mL 5.00-275.00 361) [employer] Supervisor ID - LETTY GBASIC METABOLIC [id number] 05:15:22 Test Item Value Reference Range Interpretation Comments SODIUM (BEAKER) 139 meq/L 136-145 (test code = 381) POTASSIUM 3.7 meq/L 3.5-5.1 (BEAKER) (test code = 379) CHLORIDE (BEAKER) 106 meq/L 98-107 (test code = 382) CO2 (BEAKER) 24 meq/L 22-29 (test code = 355) BLOOD UREA 12 mg/dL 7-21 NITROGEN (BEAKER) (test code = 354) CREATININE 0.78 mg/dL 0.57-1.25 (BEAKER) (test code = 358) GLUCOSE RANDOM 107 mg/dL 70-105 H (BEAKER) (test code = 652) CALCIUM (BEAKER) 8.1 mg/dL 8.4-10.2 L (test code = 697) EGFR (BEAKER) 100 Interpretati on of eGFR (test code = mL/min/1.73 values Stage De scription 1092) sq m Result G1 Jojo l or high >=90 G2 Mildly decreased 60-89 G3a Mildl y to moderately 45-5 9 G3b Moderately to s everely 30-44 G4 Severl y decreased 15-29 G5 Kidney failure <15Reported eGF R is based on the CKD-EPI 2020 equation that d oes not use a race coefficientEsti mated GFR is not as accur ate as Creatinine [place] neves in predicting glom erular filtration rate . Estimated GFR is not appl icable for dialysis patien ts [employer] Vehicle [employer] Supervisor ID - LETTY [id number] 05:15:22 Test Item Value Reference Range Interpretation Comments MAGNESIUM (BEAKER) (test code = 1.9 mg/dL 1.6-2.6 627) [employer] Vehicle [employer] Supervisor ID - LETTY [id number] 05:15:22 Test Item Value Reference Range Interpretation Comments PHOSPHORUS (BEAKER) (test code = 4.2 mg/dL 2.3-4.7 604) Motor Vehicle Assembly Supervisor ID - LETTY GORDONON, TIBC, % SAT. (WITHOUT FERRITIN)2022-02-27 05:01:35 Test Item Value Reference Range Interpretation Comments IRON (BEAKER) (test code = 547) 52.0 ug/dL 40.0-160.0 TOTAL IRON BINDING CAPACITY 211 ug/dL 250-450 L (BEAKER) (test code = 769) IRON % SATURATION (2) (BEAKER) 25 % 20-55 (test code = 2590) [employer] Vehicle [employer] Supervisor ID - LETTY GCBC (HEMOGRAM ONLY)2022-02-27 04:46:45 Test Item Value Reference Range Interpretation Comments WHITE BLOOD CELL COUNT (BEAKER) 8.2 K/ L 3.5-10.5 (test code = 775) RED BLOOD CELL COUNT (BEAKER) 3.08 M/ L 3.93-5.22 L (test code = 761) HEMOGLOBIN (BEAKER) (test code = 9.2 GM/DL 11.2-15.7 L 410) HEMATOCRIT (BEAKER) (test code = 27.5 % 34.1-44.9 L 411) MEAN CORPUSCULAR VOLUME (BEAKER) 89 fL 79-95 (test code = 753) MEAN CORPUSCULAR HEMOGLOBIN 29.9 pg 25.6-32.2 (BEAKER) (test code = 751) MEAN CORPUSCULAR HEMOGLOBIN CONC 33.5 GM/DL 32.2-35.5 (BEAKER) (test code = 752) RED CELL DISTRIBUTION WIDTH 14.1 % 11.7-14.4 (BEAKER) (test code = 412) PLATELET COUNT (BEAKER) (test 239 K/CU MM 150-450 code = 756) MEAN PLATELET VOLUME (BEAKER) 9.8 fL 9.4-12.3 (test code = 754) NUCLEATED RED BLOOD CELLS 0 /100 WBC 0-0 (BEAKER) (test code = 413) [id number] 15:28:00 Test Item Value Reference Range Interpretation Comments Hematology (test ERS.EGM@1125 code = CCH) Hematology (test 9.0 10x3/uL 4.8-10.8 N code = WBCT) Hematology (test 1.46 mill/uL 4.20-5.40 L code = RBCT) Hematology (test 4.4 g/dL 12.0-16.0 LL Critical Va lue! code = HGBT) Hematology (test 13.3 % 36.0-47.0 L code = HCTT) Hematology (test 91.2 fl 78.0-98.0 N code = MCV) Hematology (test 29.8 pg 27.0-31.0 N code = MCH) Hematology (test 32.7 g/dL 32.0-36.0 N code = MCHC) Hematology (test 11.8 % 11.5-14.5 N code = RDW) Hematology (test 244 10x3/uL 130-400 N code = PLTT) Hematology (test 7.3 fL 7.4-10.4 L code = MPV) Hematology (test 79.3 % 42.0-75.0 H code = %NEUT) Hematology (test 16.3 % 21.0-51.0 L code = %LYMPH) Hematology (test 3.3 % 0.0-10.0 N code = %MONO) Hematology (test 1.0 % 0.0-10.0 N code = %EOS) Hematology (test 0.1 % 0.0-1.0 N code = %BASO) Hematology (test 7.1 thou/uL 1.40-6.50 H code = NEUT#) Hematology (test 1.5 thou/uL 1.20-3.40 N code = LYMPH#) Hematology (test 0.3 thou/uL 0.11-0.59 N code = MONO#) Hematology (test 0.1 thou/uL 0.0-0.7 N code = EOS#) Hematology (test 0.0 thou/uL 0.0-0.2 N code = BASO#) Hematology (test SLIGHT = 2-3 See_Comment [Automated code = POLY) cells (100X) message] The sy stem which generated this result transmitted reference range : 0-2/hpf. The reference range was not used to interpret this result as normal/abnormal . Hematology (test Appears Adequate code = PCOMMENT) [id number] 15:28:00 Test Item Value Reference Range Interpretation Comments Hematology (test code Clinic al History: 36 y/o F = PATH) with abdominal pain and vaginalbleeding .Microscopi c examination:W BC: Morpholgically unremarkable leukocytes.RBC: Significanlty d ecreased in number with hyp ochromia andpolychromasi a.PLT: Morphologically unremarkable.Im pression: Marked normocyt ic anemia. Clinical correl ationis recommended.Chr istopher Wilver, [facility] [place] [address] Molecular Testing [id number] 12:09:00 Test Item Value Reference Range Interpretation Comments Molecular Testing Not Detected NotDetected MM (test code = GCPCRT) Molecular Testing Not Detected NotDetected MM (test code = CHLAMPCRT) Molecular Testing Accura te results are MM (test code = dependent on adequate PCRINTERP) specimencollect ion, absence of inhi bitors and sufficient DNA to bedetected. Acceptable spec imens for this test a re vaginal orendocervical swabs (self collected or clinician collected)Viabi lity or infectivity can NOT be inferred since targetDNA may p ersist in the absence of viable organism s. PT/[id number] 08:47:17 Test Item Value Reference Range Interpretation Comments PROTIME (BEAKER) (test 14.5 seconds 11.9-14.2 H code = 759) INR (BEAKER) (test 1.20 See_Comment [Automat ed code = 370) message] The sy stem which generated this result transmitted reference range : <=5.90. The reference range was not used to interpret this result as normal/abnormal . PARTIAL THROMBOPLASTIN 25.1 seconds 22.5-36.0 TIME (BEAKER) (test code = 760) RECOMMENDED COUMADIN/WARFARIN INR THERAPY RANGESSTANDARD DOSE: 2.0 - 3.0 Includes: PROPHYLAXIS for venous thrombosis, systemic embolization; TREATMENT for venous thrombosis and/or pulmonary embolus.HIGH RISK: Target INR is 2.5-3.5 for patients with mechanical heart valves.CBC (HEMOGRAM ONLY)2022-02-26 08:44:56 Test Item Value Reference Range Interpretation Comments WHITE BLOOD CELL COUNT (BEAKER) 6.8 K/ L 3.5-10.5 (test code = 775) RED BLOOD CELL COUNT (BEAKER) 2.98 M/ L 3.93-5.22 L (test code = 761) HEMOGLOBIN (BEAKER) (test code = 8.9 GM/DL 11.2-15.7 L 410) HEMATOCRIT (BEAKER) (test code = 25.9 % 34.1-44.9 L 411) MEAN CORPUSCULAR VOLUME (BEAKER) 87 fL 79-95 (test code = 753) MEAN CORPUSCULAR HEMOGLOBIN 29.9 pg 25.6-32.2 (BEAKER) (test code = 751) MEAN CORPUSCULAR HEMOGLOBIN CONC 34.4 GM/DL 32.2-35.5 (BEAKER) (test code = 752) RED CELL DISTRIBUTION WIDTH 14.0 % 11.7-14.4 (BEAKER) (test code = 412) PLATELET COUNT (BEAKER) (test 191 K/CU MM 150-450 code = 756) MEAN PLATELET VOLUME (BEAKER) 9.6 fL 9.4-12.3 (test code = 754) NUCLEATED RED BLOOD CELLS 0 /100 WBC 0-0 (BEAKER) (test code = 413) RETICULOCYTE [id number] 07:50:02 Test Item Value Reference Range Interpretation Comments RETICULOCYTE COUNT PCT (BEAKER) (test 2.1 % 0.5-1.7 H code = 575) [employer] Supervisor ID - [id number] AND [id number] 05:48:24 Test Item Value Reference Range Interpretation Comments HEMOGLOBIN (BEAKER) (test code = 8.4 GM/DL 11.2-15.7 L 410) HEMATOCRIT (BEAKER) (test code = 24.4 % 34.1-44.9 L 411) [employer] Supervisor ID - [id number], [id number] 04:24:58 Test Item Value Reference Range Interpretation Comments CALCIUM IONIZED (BEAKER) (test 1.05 mmol/L 1.12-1.27 L code = 698) PH, BLOOD (BEAKER) (test code = 7.42 1810) SARS-CoV2/RT-PCR (Asymptomatic ONLY)2022-02-26 00:54:18 Test Item Value Reference Interpretation Comments Range SARS-COV2/RT-PCR Negative Negative The SARS-Co V-2 (test code = target nucleic 05015-2) acids are not detected in thi s specimen. Negat elida results do not preclude SARS-C oV-2 infection and should not be u sed as the sole bas is for patient management decisions. Nega tive results must be combined with clinical observations, patient history , and epidemiolog ical information. A false negative result may occu r if a specimen is improperly collected, transported or handled. This S ARS CoV-2 test is a rapid, real-messi e RT-PCR test intended for e qualitative detection of nucleic acid fr om SARS-CoV-2 in a nasopharyngeal swab specimen collec erna from individual s suspected of COVID-19 by the ir healthcare provider. NING (test code = This test has been NING) authorized by FDA under an EUA for use by authorized laboratories. This test is only authorized for the duration of the declaration that circumstances exist justifying the authorization of emergency use of in vitro diagnostic tests for detection and/or diagnosis of COVID-19 under Section 564(b)(1) of the Federal Food, Drug and Cosmetic Act, 21 U.S.C. 360bbb-3(b)(1), unless the authorization is terminated or revoked sooner. Fact Sheet for Healthcare Providers: https://www.[employer]/Documents/Xp ert%20Xpress%20SAR S%20CoV-2/Fact%20S heets/302-3802%20S ARS-COV-2%20HEALTH CARE%20PROVIDERS%2 0FACT%20SHEET.pdf Fact Sheet for Healthcare Patients: https://www.[employer]/Documents/Xp ert%20Xpress%20SAR S%20CoV-2/Fact%20S heets/302-3801%20S ARS-COV-2%20PATIEN T%20FACT%20SHEET.p df Lab Interpretation Normal (test code = 38225-6) [facility] [place]2022-02-26 00:54:18 Test Item Value Reference Interpretation Comments Range SARS-COV2/RT-PCR Negative Negative The SARS-Co V-2 (test code = target nucleic 02733-1) acids are not detected in thi s specimen. Negat elida results do not preclude SARS-C oV-2 infection and should not be u sed as the sole bas is for patient management decisions. Nega tive results must be combined with clinical observations, patient history , and epidemiolog ical information. A false negative result may occu r if a specimen is improperly collected, transported or handled. This S ARS CoV-2 test is a rapid, real-messi e RT-PCR test intended for th e qualitative detection of nucleic acid fr om SARS-CoV-2 in a nasopharyngeal swab specimen collec erna from individual s suspected of COVID-19 by the ir healthcare provider. NING (test code = This test has been NING) authorized by FDA under an EUA for use by authorized laboratories. This test is only authorized for the duration of the declaration that circumstances exist justifying the authorization of emergency use of in vitro diagnostic tests for detection and/or diagnosis of COVID-19 under Section 564(b)(1) of the Federal Food, Drug and Cosmetic Act, 21 U.S.C. 360bbb-3(b)(1), unless the authorization is terminated or revoked sooner. Fact Sheet for Healthcare Providers: https://www.[employer]/Documents/Xp ert%20Xpress%20SAR S%20CoV-2/Fact%20S heets/302-3802%20S ARS-COV-2%20HEALTH CARE%20PROVIDERS%2 0FACT%20SHEET.pdf Fact Sheet for Healthcare Patients: https://www.[employer]/Documents/Xp ert%20Xpress%20SAR S%20CoV-2/Fact%20S heets/302-3801%20S ARS-COV-2%20PATIEN T%20FACT%20SHEET.p df Lab Interpretation Normal (test code = 83585-4) [facility] [place]omatic ONLY[place]2022-02-26 00:54:18 Test Item Value Reference Interpretation Comments Range SARS-COV2/RT-PCR Negative Negative The SARS-Co V-2 (test code = target nucleic 74410-8) acids are not detected in thi s specimen. Negat elida results do not preclude SARS-C oV-2 infection and should not be u sed as the sole bas is for patient management decisions. Nega tive results must be combined with clinical observations, patient history , and epidemiolog ical information. A false negative result may occu r if a specimen is improperly collected, transported or handled. This S ARS CoV-2 test is a rapid, real-messi e RT-PCR test intended for th e qualitative detection of nucleic acid fr om SARS-CoV-2 in a nasopharyngeal swab specimen colle erna from individual s suspected of COVID-19 by the ir healthcare provider. NING (test code = This test has been NING) authorized by FDA under an EUA for use by authorized laboratories. This test is only authorized for the duration of the declaration that circumstances exist justifying the authorization of emergency use of in vitro diagnostic tests for detection and/or diagnosis of COVID-19 under Section 564(b)(1) of the Federal Food, Drug and Cosmetic Act, 21 U.S.C. 360bbb-3(b)(1), unless the authorization is terminated or revoked sooner. Fact Sheet for Healthcare Providers: https://www.[employer]/Documents/Xp ert%20Xpress%20SAR S%20CoV-2/Fact%20S heets/302-3802%20S ARS-COV-2%20HEALTH CARE%20PROVIDERS%2 0FACT%20SHEET.pdf Fact Sheet for Healthcare Patients: https://www.[employer]/Documents/Xp ert%20Xpress%20SAR S%20CoV-2/Fact%20S heets/302-3801%20S ARS-COV-2%20PATIEN T%20FACT%20SHEET.p df Lab Interpretation Normal (test code = 17349-3) [facility] [place] [facility])2022-02-26 00:54:18 Test Item Value Reference Range Interpretation Comments SARS-COV2/RT-PCR Negative Negative The SARS-Co V-2 target (test code = nucleic acids a re not 5808742) detected in thi s specimen. Negative result s do not preclude SARS-C oV-2 infection and s hould not be used as the amandeep e basis for patient managem ent decisions. Nega tive results must be combine d with clinical observ ations, patient history , and epidemiological information. A false negativ e result may occur if a spec imen is improperly merritt ected, transported or handled. This SARS CoV-2 test is a rapid, real-time RT-PC R test intended for th e qualitative detection of nu cleic acid from SARS-CoV-2 in a nasopharyngeal swab specimen collected from individuals suspected of CO VID-19 by their healthcar e provider. This test has been authorized by FDA under an EUA for use by authorized laboratories. This test is only authorized for the duration of the declaration that circumstances exist justifying the authorization of emergency use of in vitro diagnostic tests for detection and/or diagnosis of COVID-19 under Section 564(b)(1) of the Federal Food, Drug and Cosmetic Act, 21 U.S.C. 360bbb-3(b)(1), unless the authorization is terminated or revoked sooner. Fact Sheet for Healthcare Providers: https://[place]/Documents/Xpert%20Xpress%20SARS%20CoV-2/Fact%20Sheets/302-3802%78ZAAM-JRJ-2%20 HEALTHCARE%20PROVIDERS%20FACT%20SHEET.pdf Fact Sheet for Healthcare Patients: https://www.[employer]/Documents/Xpert%20Xp ress%20SARS%20CoV-2/Fact%20Sheets/302-3801%70AJXY-EDI-9%20PATIENT%20FACT%20SHEET .pdfCOMPREHENSIVE METABOLIC [id number] 22:35:11 Test Item Value Reference Range Interpretation Comments TOTAL PROTEIN 5.3 gm/dL 6.0-8.3 L Specimen sligh tly (BEAKER) (test hemolyzed code = 770) ALBUMIN (BEAKER) 3.0 g/dL 3.5-5.0 L Specimen sl ightly (test code = 1145) hemolyzed ALKALINE 45 U/L 40-150 PHOSPHATASE (BEAKER) (test code = 346) BILIRUBIN TOTAL 0.7 mg/dL 0.2-1.2 Specimen sli ghtly (BEAKER) (test hemolyzed code = 377) SODIUM (BEAKER) 138 meq/L 136-145 (test code = 381) POTASSIUM (BEAKER) 4.2 meq/L 3.5-5.1 Specimen slightly (test code = 379) hemolyzed CHLORIDE (BEAKER) 111 meq/L 98-107 H (test code = 382) CO2 (BEAKER) (test 20 meq/L 22-29 L code = 355) BLOOD UREA 9 mg/dL 7-21 NITROGEN (BEAKER) (test code = 354) CREATININE 0.68 mg/dL 0.57-1.25 Specimen slight ly (BEAKER) (test hemolyzed code = 358) GLUCOSE RANDOM 95 mg/dL 70-105 (BEAKER) (test code = 652) CALCIUM (BEAKER) 7.4 mg/dL 8.4-10.2 L (test code = 697) AST (SGOT) 14 U/L 5-34 Specimen slight ly (BEAKER) (test hemolyzed code = 353) ALT (SGPT) 8 U/L 6-55 Specimen slight ly (BEAKER) (test hemolyzed code = 347) EGFR (BEAKER) 114 Interpretatio n of eGFR (test code = 1092) mL/min/1.[address] age Description sq m Result G1 Jojo l or high >=90 G2 Mildly decreased 60-89 G3a Mildl y to moderately 45-5 9 G3b Moderately to s everely 30-44 G4 Severl y decreased 15-29 G5 Kidney failure <15Reported eGF R is based on the CKD-EPI 2020 equation that d oes not use a race coefficientEsti mated GFR is not as accur ate as Creatinine [place] pura in predicting glom erular filtration rate . Estimated GFR is not appl icable for dialysis patien ts [employer] Supervisor ID - [id number] 22:34:35 Test Item Value Reference Range Interpretation Comments MAGNESIUM (BEAKER) 2.1 mg/dL 1.6-2.6 Specimen slightly (test code = 627) hemolyzed [employer] Supervisor ID - [id number] TIME/[id number] 22:30:47 Test Item Value Reference Range Interpretation Comments PROTIME (BEAKER) 15.3 seconds 11.9-14.2 H (test code = 759) INR (BEAKER) (test 1.28 See_Comment [Automat ed message] code = 370) The system [employer] generated this result transmitted ref erence range: <=5.90. The reference range was not used to int erpret this result as normal/abnormal . RECOMMENDED COUMADIN/WARFARIN INR THERAPY RANGESSTANDARD DOSE: 2.0 - 3.0 Includes: PROPHYLAXIS for venous thrombosis, systemic embolization; TREATMENT for venous thrombosis and/or pulmonary embolus.HIGH RISK: Target INR is 2.5-3.5 for patients with mechanical heart valves.CBC W/PLT COUNT & AUTO [id number] 22:15:27 Test Item Value Reference Range Interpretation Comments WHITE BLOOD CELL COUNT (BEAKER) 6.7 K/ L 3.5-10.5 (test code = 775) RED BLOOD CELL COUNT (BEAKER) 2.36 M/ L 3.93-5.22 L (test code = 761) HEMOGLOBIN (BEAKER) (test code = 6.9 GM/DL 11.2-15.7 L 410) HEMATOCRIT (BEAKER) (test code = 20.7 % 34.1-44.9 L 411) MEAN CORPUSCULAR VOLUME (BEAKER) 88 fL 79-95 (test code = 753) MEAN CORPUSCULAR HEMOGLOBIN 29.2 pg 25.6-32.2 (BEAKER) (test code = 751) MEAN CORPUSCULAR HEMOGLOBIN CONC 33.3 GM/DL 32.2-35.5 (BEAKER) (test code = 752) RED CELL DISTRIBUTION WIDTH 13.5 % 11.7-14.4 (BEAKER) (test code = 412) PLATELET COUNT (BEAKER) (test 186 K/CU MM 150-450 code = 756) MEAN PLATELET VOLUME (BEAKER) 9.5 fL 9.4-12.3 (test code = 754) NUCLEATED RED BLOOD CELLS 0 /100 WBC 0-0 (BEAKER) (test code = 413) NEUTROPHILS RELATIVE PERCENT 62 % (BEAKER) (test code = 429) LYMPHOCYTES RELATIVE PERCENT 33 % (BEAKER) (test code = 430) MONOCYTES RELATIVE PERCENT 4 % (BEAKER) (test code = 431) EOSINOPHILS RELATIVE PERCENT 1 % (BEAKER) (test code = 432) BASOPHILS RELATIVE PERCENT 0 % (BEAKER) (test code = 437) NEUTROPHILS ABSOLUTE COUNT 4.12 K/ L 1.56-6.13 (BEAKER) (test code = 670) LYMPHOCYTES ABSOLUTE COUNT 2.22 K/ L 1.18-3.74 (BEAKER) (test code = 414) MONOCYTES ABSOLUTE COUNT (BEAKER) 0.26 K/ L 0.24-0.36 (test code = 415) EOSINOPHILS ABSOLUTE COUNT 0.05 K/ L 0.04-0.36 (BEAKER) (test code = 416) BASOPHILS ABSOLUTE COUNT (BEAKER) 0.01 K/ L 0.01-0.08 (test code = 417) IMMATURE GRANULOCYTES-RELATIVE 0.10 % 0.00-1.00 PERCENT (BEAKER) (test code = 2801) Packed Cells - [id number] 21:30:[id number] ON LRPC TRANSFUSED 02/25/22 1155 [id number] AP LRPC TRANSFUSED 02/25/22 1318 [id number] AP LRPC TRANSFUSED 02/25/22 1529Type [id number] 21:30:00 Test Item Value Reference Range Interpretation Comments Blood Type Rh (test code = BT) A POSITIVE Antibody Screen (test code = ABSC) NEGATIVE Received Blood Or Been w/in Past 90 Days? UNKNOWNScheduled Surgery Date: No SurgeryReceivedBlood Or Been w/in Past 90 Days? UNKNOWNIs Surgery Date Greater than 7 days from now? NOScheduled Surgery Date: NO SURGERYIs Surgery Date Greater than 7 days from now? NOVaginitis Panel 3 by DNA [id number] 17:54:00 Test Item Value Reference Range Interpretation Comments Vaginitis Panel 3 by DNA Probe VPIIICANDI (test code = VP3) Vaginitis Panel 3 by DNA Probe N (test code = VP31) Vaginitis Panel 3 by DNA Probe VPIIITRICH (test code = VP31) [id number] 17:33:00 Test Item Value Reference Range Interpretation Comments Hematology (test code = WBCT) 7.0 10x3/uL 4.8-10.8 N Hematology (test code = RBCT) 2.42 mill/uL 4.20-5.40 L Hematology (test code = HGBT) 7.4 g/dL 12.0-16.0 L Hematology (test code = HCTT) 22.0 % 36.0-47.0 L Hematology (test code = MCV) 90.7 fl 78.0-98.0 N Hematology (test code = MCH) 30.7 pg 27.0-31.0 N Hematology (test code = MCHC) 33.8 g/dL 32.0-36.0 N Hematology (test code = RDW) 11.9 % 11.5-14.5 N Hematology (test code = PLTT) 193 10x3/uL 130-400 N Hematology (test code = MPV) 7.5 fL 7.4-10.4 N Hematology (test code = %NEUT) 66.9 % 42.0-75.0 N Hematology (test code = %LYMPH) 28.9 % 21.0-51.0 N Hematology (test code = %MONO) 3.9 % 0.0-10.0 N Hematology (test code = %EOS) 0.3 % 0.0-10.0 N Hematology (test code = %BASO) 0.0 % 0.0-1.0 N Hematology (test code = NEUT#) 4.7 thou/uL 1.40-6.50 N Hematology (test code = LYMPH#) 2.0 thou/uL 1.20-3.40 N Hematology (test code = MONO#) 0.3 thou/uL 0.11-0.59 N Hematology (test code = EOS#) 0.0 thou/uL 0.0-0.7 N Hematology (test code = BASO#) 0.0 thou/uL 0.0-0.2 N [id number] 16:38:00 Test Item Value Reference Range Interpretation Comments Urinalysis (test code = Yellow Yellow UACLR) Urinalysis (test code = Clear Clear UACLY) Urinalysis (test code = 1.063 1.002-1.036 H SPGR) Urinalysis (test code = 6.5 5.0-9.0 N LAUREL) Urinalysis (test code = Negative Antionette/uL Negative UALEU) Urinalysis (test code = Negative Negative UANIT) Urinalysis (test code = 50 mg/dL Neg-Trace A PROUADIP) Urinalysis (test code = Normal mg/dL Negative GLUCU) Urinalysis (test code = Negative mg/dL Negative KETU) Urinalysis (test code = Normal mg/dL Less than 2 UAUROB) Urinalysis (test code = Negative Negative UABIL) Urinalysis (test code = 3+ Negative A UABLD) Urinalysis (test code = Greater than 50 HPF 0-3 A UARBC) Urinalysis (test code = None Seen HPF 0-3 UAWBC) Urinalysis (test code = 0-3 HPF 0-3 UASQUAM) Urinalysis (test code = None Seen HPF None Seen UABAC) Urine Source: Urine VoidedMolecular Testing [id number] 15:14:00 Test Item Value Reference Range Interpretation Comments Molecular Testing Not Detected NotDetected Performanc e of the MM (test code = Cepheid SARS -CoV-2 has IYGPM12FFALY) only beenestab lished in nasopharyngeal swab specimens. This testcannot rule out diseases caused by other bacterial or viralpathogens. Cepheid has been provid ed an FDA EUA that wi ll be effectiveuntil the declaration josué t circumstances e xist justifyingthe authorization o f the emergency use o f in vitrodiagnostic tests for detection a nd/or diagnosis ofCOV ID-19 is terminated unde r Section 564(b)( 2) of the Act orthe E UA is revoked under S ection 564(g) of the A ct. Resident in [facility] Setting: UnknownEmployed in Healthcare: UnknownFirst Test: UnknownHospitalized: UnknownICU: UnknownDate of Symptom Onset: [id number]: UnknownReason for Testing: Admission ScreeningSource: Nasopharyngeal SwabSymptomatic as defined by CDC: UnknownChemistry - Specials 2022-02-25 12:36:00 Test Item Value Reference Range Interpretation Comments Chemistry - Specials Negative NEGATIVE Method of sensitivity- (test code = BHCGST) Indeter minant: results should be repea erna after 48-72 hrs Positive: resul ts may be detected as early as 1 day after the first missed me nses. Comment add on to prior labsRetype Verify-Blood Type [id number] 12:14:00 Test Item Value Reference Range Interpretation Comments Blood Type Rh (test code = BT) A POSITIVE [id number] 11:38:00 Test Item Value Reference Range Interpretation Comments Chemistry (test code 137 mmol/L 136-145 N = NA-T) Chemistry (test code 3.9 mmol/L 3.5-5.1 N = K-T) Chemistry (test code 108 mmol/L 98-107 H = CL) Chemistry (test code 21 mmol/L 22-29 L = CO2) Chemistry (test code 12 mmol/L 10-20 N = ANGP) Chemistry (test code 12 mg/dL 7.0-18.7 N = BUN) Chemistry (test code 0.79 mg/dL 0.6-1.1 N = CREATT) Chemistry (test code 98 Referen ce Range for = EGFRCR) Estimated GFR: Greater than 90 mL/min/1.73 j6Rglwobij eGFR is based on the CKD-EPI 202 equation thatdo es not use a race coefficient. Chemistry (test code 112 mg/dL 70-105 H = GLU-T) Chemistry (test code 7.6 mg/dL 7.8-10.44 L = CA) Chemistry (test code Less than 0.2 0.2-1.2 L = TBILI-T) mg/dL Chemistry (test code 5.8 g/dL 6.0-8.3 L = TP) Chemistry (test code 3.4 g/dL 3.5-5.0 L = ALB) Chemistry (test code 2.4 g/dL 2.4-3.5 N = GLOB) Chemistry (test code 1.4 g/dL 1.2-2.2 N = AG) Chemistry (test code 50 U/L 40-110 N = ALP) Chemistry (test code 9 U/L 5-34 N = AST) Chemistry (test code 8 U/L 8-55 N = ALT) [id number] 11:38:00 Test Item Value Reference Range Interpretation Comments Chemistry (test code = LIP) 13 U/L 8-78 N Chemistry - [id number] 11:37:00 Test Item Value Reference Range Interpretation Comments Chemistry - Lactate (test code = 1.9 mmol/L 0.5-2.2 N LACTSEP-T) HGB [id number] 18:56:00 Test Item Value Reference Range Interpretation Comments HEMOGLOBIN (test code = HGB) 10.0 G/DL 12.0-16.0 L HEMATOCRIT (test code = HCT) 30.3 % 37-47 L MEAN CELL HGB CONCENTRATION (test 33.0 G/DL 33-37 N code = MCHC) - DUP AB/PEL/SC [id number] 18:20:00 [facility] 1985 Sex: F Patient Name: YULIYA LARA Unit No: [id number] EXAMS: CPT CODE: [id number] DUP A B/PEL/SC COMP [id number] EXAMINATION: - DUP AB/PEL/SC COMP, - US TRANSVAGINAL NON OB, - US PELVIC COMPLETE INDICATION: BLEEDING COMPARISON: None available at time of dictation LOCATION: 8 TECHNIQUE: Grayscale and color Doppler and spectral Doppler sonographic images were obtained of the pelvis using transabdominal and endovaginal technique. FINDINGS: Uterus measures 8.2 x 5.3 x 4.5 cm. No uterine masses are seen. Endometrial stripe measures 7 mm in thickness and is homogeneous in echotexture. Right ovary measures 1.8 x 1.7 x 1.6 cm and is unremarkable in appearance. Blood flow is documented within the right ovary on Doppler images. Left ovary measures 2.5 x 2.3 x 2.0 cm and exhibits 1.9 cm complex lesion with prominent peripheral blood flow likely representing hemorrhagic or corpus luteal cyst. Blood flow is documented within the left ovary on Doppler images. No free fluid in the visualized pelvis. IMPRESSION: Findings consistent with 1.9 cm left ovarian hemorrhagic or corpus luteum cyst. Otherwise unremarkable exam. at 1820 Reported and signed by: Cheikh Chua MD CC: Armond Owens MD; Dallin Sanchez DO Technologist: Sanjuanita Woo Trnscrbd D/ (1819) [id number] Orig Print D/T: S: 10/11/2021 (182) Probe: [facility] NAME: YULIYA LARA [address] PHYS: [id number] Dallin Mccord [place] [address] : 1985 AGE: 36 SEX: F LOC: SHERRI PHONE #: [phone] EXAM DATE: 10/11/2021 STATUS: REG ER FAX #: RAD NO: Page 1 Signed Report- US PELVIC [id number] 18:20:00 [facility] 1985 Sex: F Patient Name: YULIYA LARA Unit No: [id number] EXAMS: CPT CODE: [id number] US PELVIC COMPLETE [id number] EXAMINATION: - DUP AB/PEL/SC COMP, - US TRANSVAGINAL NON OB, - US PELVIC COMPLETE INDICATION: BLEEDING COMPARISON: None available at time of dictation LOCATION: [facility] TECHNIQUE: Grayscale and color Doppler and spectral Doppler sonographic images were obtained of the pelvis using tr ansabdominal and endovaginal technique. FINDINGS: Uterus measures 8.2 x 5.3 x 4.5 cm. No uterine masses are seen. Endometrial stripe measures 7 mm in thickness and is homogeneous in echotexture. Right ovary measures 1.8 x 1.7 x 1.6 cm and is unremarkable in appearance. Blood flow is documented within the right ovary on Doppler images. Left ovary measures 2.5 x 2.3 x 2.0 cm and exhibits 1.9 cm complex lesion with prominent peripheral blood flow likely representing hemorrhagic or corpus luteal cyst. Blood flow is documented within the left ovary on Doppler images. No free fluid in the visualized pelvis. IMPRESSION: Findings consistent with 1.9 cm left ovarian hemorrhagic or corpus luteum cyst. Otherwise unremarkable exam. at 1820 Reported and signed by: Cheikh Chua MD CC: Armond Owens MD; Mary Vo; Shea Anderson MD; Dallin Sanchez DO Technologist: Sanjuanita Woo, US Trnscrbd D/ (1819) [id number] Orig Print D/T: S: 10/11/2021 (1822) Probe: [facility] NAME: YULIYA LARA [address] PHYS: ROBYNSadi Roth JustinLizzieShea Thanh [place] [id number] : 1985 AGE: 36 SEX: F LOC: SHERRI PHONE #: [phone] EXAM DATE: 10/11/2021 STATUS: REG ER FAX #: RAD NO: Page 1 Signed Report- US TRANSVAGINAL NON [id number] 18:20:00 [facility] 1985 Sex: F Patient Name: YULIYA LARA Unit No: [id number] EXAMS: CPT CODE: [id number] [place] [id number] EXAMINATION: - DUP AB/PEL/SC COMP, - US TRANSVAGINAL NON OB, - US PELVIC COMPLETE INDICATION: BLEEDING COMPARISON: None available at time of dictation LOCATION: 8 TECHNIQUE: Grayscale and color Doppler and spectral Doppler sonographic images were obtained of the pelvis using transabdominal and endovaginal technique. FINDINGS: Uterus measures 8.2 x 5.3 x 4.5 cm. No uterine masses are seen. Endometrial stripe measures 7 mm in thickness and is homogeneous in echotexture. Right ovary measures 1.8 x 1.7 x 1.6 cm and is unremarkable in appearance. Blood flow is documented within the right ovary on Doppler images. Left ovary measures 2.5 x 2.3 x 2.0 cm and exhibits 1.9 cm complex lesion with prominent peripheral blood flow likely representing hemorrhagic or corpus luteal cyst.Blood flow is documented within the left ovary on Doppler images. No free fluid in the visualized pelvis. IMPRESSION: Findings consistent with 1.9 cm left ovarian hemorrhagic or corpus luteum cyst. Otherwise unremarkable exam. at 1820 Reportedand signed by: Cheikh Chua MD CC: Armond Owens MD; Mary Vo; Shea Anderson MD; Dallin Sanchez DO Technologist: US Hien Trnscrbd D/ (1819) [id number] O rig Print D/T: S: 10/11/2021 (1822) Probe: [id number] [facility] NAME: YULIYA LARA [address] [facility] PHYS: [place] [address] : 1985 AGE: 36 SEX: FACCT NO: [id number] LOC: [facility] PHONE #: [phone] EXAM DATE: 10/11/2021 STATUS: REG ER FAX #: RAD NO: Page 1 Signed [id number] 17:27:00 Test Item Value Reference Range Interpretation Comments GLUBED (test code = 80 MG/DL 65-99 N Performe d by certified GLUBED) 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 [facility] UA RFLX [id number] 14:54:00 Test Item Value Reference Range Interpretation Comments UA COLOR (test code = YELLOW YELLOW COLU) UA APPEARANCE (test code CLOUDY CLEAR = APPU) UA GLUCOSE DIPSTICK (test NEGATIVE mg/dL NEGATIVE code = DGLUU) UA BILIRUBIN DIPSTICK NEGATIVE NEGATIVE (test code = BILU) UA KETONE DIPSTICK (test NEGATIVE mg/dL NEGATIVE code = KETU) UA SPECIFIC GRAVITY (test 1.015 1.001-1.035 N code = SGU) UA BLOOD DIPSTICK (test 4+ NEGATIVE A code = STACY) UA PH DIPSTICK (test code 6.0 5.5-7.0 N = LAUREL) UA PROTEIN DIPSTICK (test 25 mg/dL NEGATIVE A code = PROU) UA UROBILINOGEN DIPSTICK NORMAL mg/dL NORMAL (test code = URO) UA NITRITE DIPSTICK (test NEGATIVE NEGATIVE code = LIS) UA LEUKOCYTE ESTERASE 500 NEGATIVE A DIPSTICK (test code = LEUU) UA COMMENT (test code = LESS THAN 10 ML VOL COMU) URINE SPECIMEN Clean Catch DESCRIPTION (test code = UASPEC) UA [id number] 14:54:00 Test Item Value Reference Range Interpretation Comments UA WBC (test code = WBCU) 11 - 20 #/hpf <10 UA RBC (test code = RBCU) >50 #/hpf NONE SEEN A UA SQUAMOUS CELLS (test code = 0 - 20 #/lpf <100 SQU) UA CULTURE NEEDED? (test code = Criteria met UACULT) UA BACTERIA (test code = BACU) 3+ #/hpf NONE SEEN UA MUCUS (test code = MUCU) MANY #/lpf NONE SEEN PROTHROMBIN [id number] 14:40:00 Test Item Value Reference Range Interpretation Comments PROTHROMBIN TIME 12.8 SECONDS 9.9-13.2 N PATIENT (test code = PTP) INTERNATIONAL NORMAL 1.09 Recomme nded INR range RATIO (test code = (warfarin therapy): INR) 2.0 - 3.0INR (International Normalized Rati o) should beused w hen interpreting or al anticoaglulant therapy. For at rial fibrillation an d treatment orprevention of deep vein thrombosis . Patients with [place] s tent *: 2.0 - 3.0 Pa tients with mechanical heart valve *: 2.5 - 3.5 Patients with flex-stent *: 3 .0 - 4.0(*) = systems engineering manager's suggested range Is patient on anticoagulants? UnknownTHROMBOPLASTIN TIME [id number] 14:40:00 Test Item Value Reference Range Interpretation Comments THROMBOPLASTIN TIME 30.9 SECONDS 24.7-38.0 N *Therap eutic level PARTIAL (test code = for hep felecia: 1.5 - PTT) 2.5 times the average patient value of 30.0 seconds. The aP TT tet should not be used to evaluat e low moleculat weigh t heparin anticoagulant therapy. Is patient on anticoagulants? UnknownCOMPREHENSIVE METABOLIC [id number] 14:34:00 Test Item Value Reference Range Interpretation Comments SODIUM (test code = 141 MMOL/L 133-145 N NA) POTASSIUM (test code = 4.1 MMOL/L 3.6-5.2 N K) CHLORIDE (test code = 107 MMOL/L 100-108 N CL) CARBON DIOXIDE (test 27 MMOL/L 22-32 N code = CO2) GLUCOSE (test code = 85 MG/DL 65-99 N Results of this assay GLU) method may be f alsely depressed orele vated if patient is t aking sulfasalazine. BLOOD UREA NITROGEN 13 MG/DL 6-20 N (test code = BUN) GLOMERULAR FILTRATION 94 64-149 N Report ing units: RATE (test code = GFR) mL/mi n/1.73m\\S\\2 (Modified MDRD Formula) CREATININE (test code 0.70 MG/DL 0.60-1.00 N = CREAT) TOTAL PROTEIN (test 6.9 G/DL 6.4-8.2 N code = PROT) ALBUMIN (test code = 4.0 G/DL 3.4-5.0 N ALB) GLOBULIN (test code = 2.9 G/DL 1.5-3.8 N GLOB) ALBUMIN/GLOBULIN RATIO 1.4 1.1-2.2 N (test code = A/G) CALCIUM (test code = 8.1 MG/DL 8.7-10.5 L CA) BILIRUBIN TOTAL (test 0.3 MG/DL 0.0-1.0 N code = BILT) SGOT/AST (test code = 3 Units/L 15-37 L Result s of this assay AST) method may be f alsely depressed orele vated if patient is t aking sulfasalazine. SGPT/ALT (test code = 8 Units/L 30-65 L Result s of this assay ALT) method may be f alsely depressed orele vated if patient is t aking sulfasalazine. ALKALINE PHOSPHATASE 57 Units/L 50-136 N TOTAL (test code = ALKP) TROP-I HIGH [id number] 14:34:00 Test Item Value Reference Range Interpretation Comments TROP-I HIGH SENSITIVITY 4 ng/L < 51 - T he use of serial (test code = TROPIHS) sampli ng and testing protocol is a recommended pra ctice.- An elevated tro ponin level alone is often not sufficient for diagnosis of my ocardial infarction.Resu lts of this assay meth od may be falsely depr essed orelevated if p atient is taking high doses of Biotin. HCG SERUM [id number] 14:27:00 Test Item Value Reference Range Interpretation Comments HCG SERUM QUAL NEGATIVE NEGATIVE False negativ es may occur (test code = when levels of hCGare below HCGQL) 10 mIU/ml. When is still suspec erna, a new specimenshould be obtained after 48 hours and re-tested.If wa iting 48 hours is not me dically advisable,the t est result should be confi rmed using aquantitative h CG assay. CBC W/AUTO [id number] 14:24:00 Test Item Value Reference Range Interpretation Comments WHITE BLOOD CELL (test code = 5.69 x10 3/uL 4.80-10.80 N WBC) RED BLOOD CELL (test code = 3.36 x10 6/uL 4.2-5.4 L RBC) HEMOGLOBIN (test code = HGB) 10.7 G/DL 12.0-16.0 L HEMATOCRIT (test code = HCT) 32.5 % 37-47 L MEAN CELL VOLUME (test code = 96.7 FL 81-99 N MCV) MEAN CELL HGB (test code = MCH) 31.8 PG 27-31 H MEAN CELL HGB CONCENTRATION 32.9 G/DL 33-37 L (test code = MCHC) RED CELL DISTRIBUTION WIDTH 13.7 % 11.5-14.5 N (test code = RDW) PLATELET COUNT (test code = 188 x10 3/uL 150-450 N PLT) MEAN PLATELET VOLUME (test code 9.6 FL 7.4-10.4 N = MPV) NEUTROPHIL % (test code = NT%) 55.4 % 42-86 N LYMPHOCYTE % (test code = LY%) 37.8 % 24-44 N MONOCYTE % (test code = MO%) 4.2 % 0.0-4.0 H EOSINOPHIL % (test code = EO%) 2.6 % 0.0-2.7 N BASOPHIL % (test code = BA%) 0.0 % 0.0-0.5 N NEUTROPHIL # (test code = NT#) 3.15 x10 3/uL 1.8-7.7 N LYMPHOCYTE # (test code = LY#) 2.15 x10 3/uL 1.0-4.8 N MONOCYTE # (test code = MO#) 0.24 x10 3/uL 0.0-0.8 N EOSINOPHIL # (test code = EO#) 0.15 x10 3/uL 0.0-0.5 N BASOPHIL # (test code = BA#) 0.00 x10 3/uL 0.0-0.2 N AG HEPATITIS B [id number] 12:39:00 Test Item Value Reference Range Interpretation Comments AG HEPATITIS B SURFACE (test code = Negative Negative HBSAG) AB RUBELLA [id number] 12:39:00 Test Item Value Reference Range Interpretation Comments AB RUBELLA IGG (test code = RUBGAB) 1.77 IMMUNE >0.99 HIV 1 2 COMBO AG/AB [id number] 12:39:00 Test Item Value Reference Range Interpretation Comments HIV 1 2 COMBO AG/AB Non Reactive NonReactive HIV 4th Generation SCREEN (test code = Detects HIV-specific [id number]) antibodies and HIV-p24 antigen. [id number] 06:19:00 Test Item Value Reference Range Interpretation Comments HEMATOCRIT (test code = HCT) 35.1 % 37-47 L ISTAT CORD [id number] 10:32:00 Test Item Value Reference Range Interpretation Comments ISTAT-PH CORD (test 7.298 7.000-7.400 N Although the precise code = PHCOP) value that is required to defineacidem ia is not known, umbi lical arterial pH jorge ues of less than 7.0 m ore realistically r epresent clinically sign ificant acidosis. 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 [facility] SRCIST) RAPID PLASMA [id number] 09:39:00 Test Item Value Reference Range Interpretation Comments RAPID PLASMA REAGIN (test code = Nonreactive Nonreactive RPR) HIV 1/2 RAPID [id number] 09:39:00 Test Item Value Reference Range Interpretation Comments HIV 1/2 RAPID SCREEN (test code = NonReactive NonReactive [id number]) RAPID PLASMA [id number] 09:17:00 Test Item Value Reference Range Interpretation Comments RAPID PLASMA REAGIN (test code = RPR) Nonreactive HIV 1/2 RAPID [id number] 09:17:00 Test Item Value Reference Range Interpretation Comments HIV 1/2 RAPID SCREEN (test code = NonReactive NonReactive [id number]) DRUG OF ABUSE SCREEN [id number] 06:33:00 Test Item Value Reference Interpretation Comments Range UR COCAINE (test NEGATIVE NEGATIVE code = COCAU) UR MDMA (test code = NEGATIVE NEGATIVE MDMAQLU) UR CANNABINOIDS NEGATIVE NEGATIVE (test code = CANU) UR AMPHETAMINE (test NEGATIVE NEGATIVE code = AMPHU) UR BARBITURATE QUAL NEGATIVE NEGATIVE (test code = BARBQLU) UR BENZODIAZEPINE NEGATIVE NEGATIVE (test code = BENZU) UR OPIATES QUAL NEGATIVE NEGATIVE (test code = OPIAQLU) UR PHENCYCLIDINE NEGATIVE NEGATIVE Urine Drug Abuse Screen (PCP) (test code = provides preliminary PHENCU) results thatmay be confirmed by scott mazariegos methods (i.e., GC/MS) at [facility]. Results of scre en may not be usedin crimi nal justice, job performance or professionalcre dential review, or infa nt custody issues. Negati ve [place] Level ng/ml ------- ----- Cocaine 3 00 Methamphetamine (Ecstacy) 500 Cannabinoid s (THC) 50 Amphetamine 100 0 Barbiturates 20 0 Benzodiazepines 200 Opiates 300 Phencyclidi ne (PCP) 25 UA RFLX [id number] 05:46:00 Test Item Value Reference Range Interpretation Comments UA COLOR (test code = COLU) Light-Yellow YELLOW UA APPEARANCE (test code = CLEAR CLEAR APPU) UA GLUCOSE DIPSTICK (test NORMAL mg/dL NEGATIVE code = DGLUU) UA BILIRUBIN DIPSTICK (test NEGATIVE NEGATIVE code = BILU) UA KETONE DIPSTICK (test code NEGATIVE mg/dL NEGATIVE = KETU) UA SPECIFIC GRAVITY (test 1.003 1.001-1.035 N code = SGU) UA BLOOD DIPSTICK (test code NEGATIVE NEGATIVE = STACY) UA PH DIPSTICK (test code = 6.5 5.5-7.0 N LAUREL) UA PROTEIN DIPSTICK (test NEGATIVE mg/dL NEGATIVE code = PROU) UA UROBILINOGEN DIPSTICK NORMAL mg/dL NORMAL (test code = URO) UA NITRITE DIPSTICK (test NEGATIVE NEGATIVE code = LIS) UA LEUKOCYTE ESTERASE NEGATIVE NEGATIVE DIPSTICK (test code = LEUU) UA COMMENT (test code = COMU) VOLUME 10-12 ML URINE SPECIMEN DESCRIPTION Clean Catch (test code = UASPEC) URINE SOURCE: Clean CatchCOVID 19 Asymptomatic IH [id number] 05:13:00 Test Item Value Reference Interpretation Comments Range COVID 19 NEGATIVE Negative " The Barbara BEATRIZ S Antigen JANEY Asymptomatic IH does not dif ferentiate AG (test code = betweenSARS- CoV and SARS-CoV-2 " COVNONPUIAG) The Barbara SARS Antigen JANEY employs immunofluoresce ncetechnology in a sandwich ilan gn that is used with Barbara tode tect nucleocapsid protein from SA RS-CoV and SARS-CoV-2.This test allows for the detection o f SARS-CoV fgoIBAC-QvD-3. The test detects, but does not differentiate,b etween the two viruses. " Resu lts are for the identification of YQOM-WvS-9dfyge ocapsid protein antigen. Antige n is generallydetect able in upper respiratory spe cimens during the acutephase of i nfection. Positive result s indicate the presenceof bharat l antigens, but clinical correl ation with patienthistory and other diagnostic info rmation is necessary todet ermine infection status. Positiv e results do not rule outbacteri al infection or co-infection wi th other viruses. Theagent detect ed may not be the definite cause of disease. " Negative result s should be treated as pres umptive " This test has not be en FDA cleared or approved; the t esthas been authorized by [facility] under an Emergency UseAu thorization (EUA) for use by labo ratories certified under the CLIA that meet the requir ements to perform moderate,high o r waived complexity test s. This test is authorized foru se at the Point of Care (POC), i.e., in patient caresettings op erating under a CLIA Certificat e of Waiver,Certific ate of Compliance, or Certificate of Accreditation CBC W/AUTO [id number] 05:00:00 Test Item Value Reference Range Interpretation Comments WHITE BLOOD CELL (test code = 7.27 x10 3/uL 4.80-10.80 N WBC) RED BLOOD CELL (test code = 3.68 x10 6/uL 4.2-5.4 L RBC) HEMOGLOBIN (test code = HGB) 11.9 G/DL 12.0-16.0 L HEMATOCRIT (test code = HCT) 35.3 % 37-47 L MEAN CELL VOLUME (test code = 95.9 FL 81-99 N MCV) MEAN CELL HGB (test code = MCH) 32.3 PG 27-31 H MEAN CELL HGB CONCENTRATION 33.7 G/DL 33-37 N (test code = MCHC) RED CELL DISTRIBUTION WIDTH 13.0 % 11.5-14.5 N (test code = RDW) PLATELET COUNT (test code = 220 x10 3/uL 150-450 N PLT) MEAN PLATELET VOLUME (test code 10.8 FL 7.4-10.4 H = MPV) NEUTROPHIL % (test code = NT%) 52.7 % 42-86 N IMMATURE GRANULOCYTE % (test 0.4 % 0.0-2.0 N code = IG%) LYMPHOCYTE % (test code = LY%) 40.2 % 24-44 N MONOCYTE % (test code = MO%) 4.5 % 0.0-4.0 H EOSINOPHIL % (test code = EO%) 2.2 % 0.0-2.7 N BASOPHIL % (test code = BA%) 0.0 % 0.0-0.5 N NUCLEATED RBC % (test code = 0.0 % 0.0-0.0 N NRBC%) NEUTROPHIL # (test code = NT#) 3.83 x10 3/uL 1.8-7.7 N IMMATURE GRANULOCYTE # (test 0.03 x10 3/uL 0.00-0.03 N code = IG#) LYMPHOCYTE # (test code = LY#) 2.92 x10 3/uL 1.0-4.8 N MONOCYTE # (test code = MO#) 0.33 x10 3/uL 0.0-0.8 N EOSINOPHIL # (test code = EO#) 0.16 x10 3/uL 0.0-0.5 N BASOPHIL # (test code = BA#) 0.00 x10 3/uL 0.0-0.2 N NUCLEATED RBC # (test code = 0.0 X10 3/uL 0.0-0.2 N NRBC#) AB RUBELLA [id number] 08:19:00 Test Item Value Reference Range Interpretation Comments AB RUBELLA IGG (test 1.22 index Immune >0.99 Non-im mune <0.90 code = RUBGAB) Equivocal 0.9 0 - 0.99 Immune >0.99Per formed At: [facility] [address] [place], [place] [id number] Everardo Schmidt MD Ph:[phone] [id number] 06:07:00 Test Item Value Reference Range Interpretation Comments HEMATOCRIT (test code = HCT) 32.0 % 37-47 L ISTAT CORD [id number] 20:50:00 Test Item Value Reference Range Interpretation Comments ISTAT-PH CORD (test 7.240 7.000-7.400 N Although the precise code = PHCOP) value that is required to defineacidem ia is not known, umbi lical arterial pH jorge ues of less than 7.0 m ore realistically r epresent clinically sign ificant acidosis. 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 Results US Pelvic Transvag W Doppler HISTORY: Vaginal bleeding. Thickened endometrium noted on CT done earlier today. COMPARISON: CT study done today. FINDINGS: Real-time imaging of the pelvis was obtained transabdominally and with an endovaginal probe. The uterus measures 5 x 7.6 x 12.5 cm in size. No focal fibroids. A thickened heterogeneous endometrium at 2.6 cm. Ovaries are not visualized. IMPRESSION: Thickened endometrium. No uterine fibroids. Nonvisualization of the ovaries. Reported By: Derek Luna MD Electronically Signed Date/Time: 03/18/222126 Technologist: CHRIS Dictated Date/Time: 03/18/222125 Transcribed Date/Time:CT Abdomen Pelvis W Con [facility] YULIYA HAMILTON : 1985 Sex: [facility] Pt Name: YULIYA HAMILTON [address] Phys: [place] [address] : 1985 Age: 36 SEX:F [phone] Exam Date:03/18/22 Status: REG ER Acct: [id number] Loc: [facility] Pt Unit #: [id number] Report #: [id number] CC: ED TEMP PROVIDER Boy Ndiaye MD CAT SCAN REPORT Report Status: Signed Order # Category/Exam [id number] CT/CT Abdomen Pelvis W Con ([id number]): . Results CT Abdomen Pelvis W Con HISTORY: Abdominal pain. Vaginal bleeding. Diarrhea. Burning with urination. COMPARISON: 02/25/2022 study. FINDINGS: Subsegmental atelectatic changes seen within the lung bases. Some minimal persisting groundglass opacity inthe posterior basal segment of the left lower lobe. The liver, spleen, pancreas and gallbladder regions appear unremarkable. Right and left adrenal glands and right and left kidneys are normal in size.There is no significant periaortic or mesenteric adenopathy. CT of pelvis performed with contrast: The endometrium appears rather markedly thickened. This is more prominent than on the previous exam. T here is some trace free fluid present. Partially collapsed follicle involving the right ovary. The appendix is normal. Review of osseous structures show some arthritic changes of the spine. IMPRESSION:1. Thickened endometrium, this is more prominent than typically seen, clinical correlation as to possibility of . There is a partially ruptured right ovarian follicle and free fluid within [id number]. Pelvic ultrasound may be helpful. Reported By: Derek Luna MD Electronically Signed Date/Time: 03/18/221949 Technologist: WILLOW Dictated Date/Time: 03/18/221945 Transcribed Date/Time:XR Chest 1 View Portable [facility] BR[facility]AN[facility]: YULIYA HAMILTON : 1985 [facility] Pt Name: YULIYA HAMILTON [address] Phys: [place] [address] : 1985 Age: 36 SEX:F [phone] Exam Date:03/18/22 Status: REG ER Acct: [id number] Loc: [facility] Pt Unit #: [id number] Report #: [id number] CC: Boy Ndiaye MD IMAGING SERVICES REPORT Report Status: Signed Order # Category/Exam [id number] RAD/XR Chest 1 View Portable ([id number]): . Results XR Chest 1 View Portable HISTORY: Chest pain COMPARISON: 02/25/2022 FINDINGS: The heart size is normal. The lungs are well expanded without focal areas ofconsolidation, pneumothorax or pleural effusions. IMPRESSION: No radiographic evidence of acute cardiopulmonary process. Reported By: Mat Diaz MD Electronically Signed Date/Time: 03/18/221854 Technologist: Dictated Date/Time: 03/18/221853 Transcribed Date/Time:MRI Pelvis W WO ConName: YULIYA PHILIP : 1985 [facility] Pt Name: YULIYA PHILIP [address] [facility] Phys: [place] [address] : 1985 Age: 36 SEX:F Exam Date: 03/10/22 Status: ADM IN Acct: [id number] Loc: [facility] Pt Unit #: [id number] Report #: [id number] CC: Narcisa Ruiz MD MRI REPORT ReportStatus: Signed Order # Category/Exam [id number] MRI/MRI Pelvis W WO Con ([id number]): . Results MRI Pelvis W WO Con History: Cervical mass Comparison: CT prior day Findings: Ulcerative circumferential cervical mass has a craniocaudal length of 4.6 cm, AP dimension of 5.5 cm, and the transverse dimension of 5.9 cm. Mass doesn't involve the anterior superior most 13 mm vaginal wall. Mass nearly completely encases the anterior fornix and partially fills the posterior fornix. Mass invades the anterior inferior lower uterine body by as much as 3 cm. Normal appearance of both ovaries. No pelvic adenopathy. No abnormal bone marrow signal. Left Bartholin gland cyst measures 7 mm. 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 No extraserosal extension appreciated nor pelvic adenopathy. Reported By: SALEEM WATKINS Electronically Signed Date/Time: 03/12/22805 Technologist: ALONZO Dictated Date/Time: 03/12/22 08 Transcribed Date/Time:US Renal Bilateral STANDARD Name: YULIYA PHILIP : 1985 [facility] Pt Name: YULIYA PHILIP [address] [facility] Phys: Gurmeet Naylor III, [place] [address] : 1985 Age: 36 SEX:F Exam Date: 03/09/22 Status: ADM IN Acct: [id number] Loc: [facility] Pt Unit #: [id number] Report #: [id number] CC: Bárbara Lemons MD, III, Joe MDULTRASOUND REPORT Report Status: Signed Order # Category/Exam [id number] ULT/US Renal Bilateral STANDARD ([id number]): . Results US Renal Bilateral STANDARD HISTORY: Hematuria. COMPARISON: CT examination done earlier today. FINDINGS: Real-time imaging of the right and left kidneys were. The right kidney measures 10.6 cm in size. Left kidney 10 cm. There is no evidence of cyst, mass or obstruction. Bladder region appears unremarkable. IMPRESSION: Unremarkable renal ultrasound. Reported By: Derek Luna MD Electronically Signed Date/Time: 03/09/221716 Technologist: FARRUKH Dictated Date/Time: 03/09/221714 Transcribed Date/Time:US Pelvic Transvag W Doppler [facility]: YULIYA PHILIP : 1985 Sex: FIMELDA [facility] Pt Name: YULIYA PHILIP [address] Phys: [place] [address] : 1985 Age: 36 SEX:F [phone] Exam Date: 03/09/22 Status: DEP ER Acct: [id number] Loc: [facility] Pt Unit #: [id number] Report #: [id number] CC: Livier Carver MD ULTRASOUND REPORT Report Status: Signed Order # Category/Exam [id number] ULT/US Pelvic Transvag W Gina aguilar ([id number]): . Results PRELIMINARY REPORT EXAM: US Pelvis, Complete. CLINICAL HISTORY: HX: VAG BLEEDING, CERVICAL MASS. SEE NOTES ON LAST IMAGE. THANKS TECHNIQUE: Transvaginal and transabdominal pelvic ultrasound (complete) with image documentation. COMPARISON: CT - CT ABDOMEN PELVIS W CON -03/09/2022 02:04 AM ANTIQUE REPAIRER FINDINGS: ENDOMETRIUM: Normal thickness. UTERUS/CERVIX: Measures 9.5 x 4.6 x5.5 cm demonstrating a 6.5 x 6.3 x 5.1 cm lobular soft tissue mass in the lower uterine segment extending into the cervix RIGHT OVARY: Normal follicles. No adnexal mass. Normal blood flow. Measures 2.9x 1.1 x 3.9 cm demonstrating a 1.8 x 1.5 x 1.5 cm cyst LEFT OVARY: Normal follicles. No adnexal mass. Normal blood flow. Measures 3.1 x 1.3 x 2.1 cm FREE FLUID: No free fluid. IMPRESSION: Lobular soft tissue mass in the cervix extending into the lower uterine segment. This may represent a fibroid however other pathology is not excluded and clinical correlation is advised witha view to possible biopsy. ELECTRONICALLY SIGNED BY: Murali Medina MD Mar 09, 2022 5:24:05 AM ANTIQUE REPAIRER US Pelvic Transvag W Doppler HISTORY: Vaginal bleeding. Cervical mass. COMPARISON: CT examination done earlier today. FINDINGS: Real-time imaging of the pelvis was obtained transabdominally as well as within endovaginal probe. This shows a uterus measuring approximately 4.6 x 5.5 x 9.5 cm in size. There is fullness of the lower uterine segment although there is no definitive defined fibroid. The lower uterine segment region or cervix area measures approximately 4 x 6.4 cm in size. There is some fluid within the endometrium. The left ovary appears normal in size. A 1.8 cm follicles seen involving the right adnexa. Color Doppler ev aluation with spectral analysis: Normal flow shown to both ovaries. IMPRESSION: Ill-defined masslikefullness to the lower uterine segment or cervix region. It is possible that this is related to a fibroid but a discrete mass cannot be visualized. A lower uterineor cervical malignancy is not excluded.This report is in agreement with the temporary report. Transcribed Date/Time: 03/09/2022 10:10 AM Reported By: Derek Luna MD Electronically Signed Date/Time: 03/09/22 1242 Technologist: DEANGELO Dictated Date/Time: 03/09/22 0756 Transcribed Date/Time:CT Abdomen Pelvis W Con [facility] – [facility]: [facility] PHILIP : 1985 [facility] Name: YULIYA PHILIP [address] Phys: [place] [address] : 1985 Age: 36 SEX:F [phone] Exam Date: 03/09/22 Status: DEP ER Acct: [id number] Loc: ERS Pt Unit #: [id number] Report #: [id number] CC: Livier Carver MD CAT SCAN REPORT Report Status: Signed Order # Category/Exam [id number] CT/CT Abdomen Pelvis W Con ( [id number]): . Results PRELIMINARY REPORT EXAM: CT Abdomen and Pelvis with Intravenous Contrast CLINICAL HISTORY: Patient is a 36-year-old inmate who presents to the emergency department with a 2-week history of pelvic pain, increased vaginal bleeding reports to 8-9 blood-filled pads and now also compl aining of retrosternal chest tightness as though "an elephant is sitting on her chest". Patient denies history of heart disease. Patient seen about a month ago and diagnosed with a pelvic mass was transferred to [facility] for further evaluation and treatment. Patient is currently not on any hormonal therapy. TECHNIQUE: Axial computed tomography images of the abdomen and pelvis with intravenous contrast. CONTRAST: With; ISOVUE 370,80mL COMPARISON: None provided. FINDINGS: LUNG BASES: There is bibasilar subsegmental atelectasis. LIVER: Unremarkable. GALLBLADDER AND BILE DUCTS: There is mild nonspecific gallbladder wall edema. PANCREAS: Unremarkable. SPLEEN: Unremarkable. ADRENAL GLANDS: Unremarkable. KID NEYS, URETERS, AND BLADDER: Unremarkable. No hydronephrosis or nephrolithiasis. No ureteral or bladder calculi. STOMACH AND BOWEL: There is a moderate fecal load noted throughout the colon. Correlate for history of constipation. APPENDIX: A normal appendix is identified. PERITONEUM: No free fluid. No free air. LYMPH NODES: No lymphadenopathy. REPRODUCTIVE: There is masslike prominence of the cervix, which appears enlarged and measures approximately 7.8 x5.4 cm ( series 2, image 80). Further characterization with pelvic ultrasound can be obtained if not already recently obtained. VASCULATURE: No aortic aneurysm. BONES: No fracture or suspicious osseous abnormality. ABDOMINAL WALL AND SOFT TISSUES: Unremarkable. IMPRESSION: 1. There is a moderate fecal load noted throughout the colon. Correlate forhistory of constipation. 2. There is mild nonspecific gallbladder wall edema. 3. There is masslike prominence of the cervix, which appears enlarged and measures approximately 7.8 x 5.4 cm ( series 2, image 80). Further characterization with pelvic ultrasound can be obtained if not already recently obtained. ELECTRONICALLY SIGNED BY: Ana Rosales MD Mar 09, 2022 3:13:[address] Abdomen Pelvis W Con HISTORY: Pelvic pain and increased vaginal bleeding. COMPARISON: Ultrasound examination of the pelvisdone same day. FINDINGS: Lung bases show subsegmental atelectatic change. There may be some minimal pneumonitis changes in the left lower lobe. The liver, spleen, pancreas and gallbladder regions appear unremarkable. Right and left adrenal glands and right and left kidneys are normal. There is no significant periaortic or mesenteric adenopathy. The appendix is normal in size. It is retrocecal in locat ion. CT of pelvis performed with contrast: There is masslike fullness to the lower uterine segment or cervix region. No significant pelvic lymphadenopathy no free fluid. IMPRESSION: Ill-defined masslike fullness to the lower uterine segment or cervix region. This does not have a typical appearance of a fibroid. Cervical mass is not excluded. Gynecologic consultation is recommended. This report is in agreement with the temporary report. Transcribed Date/Time: 03/09/2022 10:08 AM Reported By: Derek Luna MD Electronically Signed Date/Time: 03/09/22 1242 Technologist: Dictated Date/Time: 03/09/22 0811 Transcribed Date/Time:XR Chest 1 View Portable [facility] BRYElkhart Lakeme: YULIYA PHILIP : 1985 Sex: FIMELDA [facility] Pt Name: YULIYA PHILIP [address] Phys: ER* STANDING MEDICAL DOC ORDER BRITTNEY Vitale [id number] : 1985 Age: 36 SEX:F [phone] Exam Date: 03/08/22 Status: REG ER Acct: [id number] Loc: ERS Pt Unit #: [id number] Report #: [id number] CC: ER* STANDING MEDICAL DOC ORDER IMAGING SERVICES REPORT Report Status: Signed Order # Category/Exam [id number] RAD/XR Chest 1 View Portable ([id number]): . Results XR Chest 1 View Portable History: Chest pain Comparison: None. Findings: Lungs are clear. No pneumothorax. No effusion. No acute osseous abnormality. Impression: No acute intrathoracic abnormality. Reported By: SALEEM WATKINS Electronically Signed Date/Time: 03/08/222345 Technologist: LIZETT Dictated Date/Time: 03/08/222339 Transcribed Date/Time:US Pelvic Transvag W Doppler [facility] BRYANName: YULIYA HAMILTON : 1985 Sex: FCHI [facility] Pt Name: YULIYA HAMILTON [address] Phys: [place] [address] : 1985 Age: 36 SEX:F [phone] Exam Date: 02/25/22 Status: REG ER Acct: [id number] Loc: ERS Pt Unit #: [id number] Report #: [id number] CC: Louisa Sosa DO ULTRASOUND REPORT Report Status: Signed Order # Category/Exam [id number] ULT/US Pelvic Transvag W Doppler ([id number]): . Results Exam: Pelvic ultrasound including Transvaginal, Vascular Duplex with color and spectral Doppler imaging: HISTORY: Pelvic pain COMPARISON: None FINDINGS: The uterus is 9.4 x 4.2 x 5.9 cm. There or right and left-sided solid masses which appear to involve the region of the cervix. On theright side this mass measures 2.6 x 3.0 x 3.6 cm. On the left side this mass measures 1.8 x 2.7 x 3.5 cm. Endometrial thickness:1.0 cm Right ovary:2.0 x 2.3 x 3.5 cm. 1.3 x 1.8 cm follicle cyst. Left ovary:Not visualized. No abscess or significant abnormal fluid collection. Vascular duplex examination demonstrates no evidence for ovarian torsion IMPRESSION: Evidence for 2 solidmasses which appear to involve the cervix, with neoplasm being a strong concern. Follow-up pelvic MRI with and without IV contrast recommended for further assessment. Reported By: Woody Ramirez MD Electronically Signed Date/Time: 02/25/22 1502 Technologist: Dictated Date/Time: 02/25/22 1456 Transcribed Date/Time:XR Chest [facility]able[facility] : 1985 Sex: FCHI [facility] Pt Name: YULIYA HAMILTON [address] Phys: [place] [address] : 1985 Age: 36 SEX:F [phone] Exam Date: 02/25/22 Status: REG ER Acct: [id number] Loc: ERS Pt Unit #: [id number] Report #: [id number] CC: Louisa Sosa DO IMAGING SERVICES REPORT Report Status: Signed Order # Category/Exam [id number] RAD/XR Chest 1 View Portable ([id number]): . Results XR Chest 1 View Portable HISTORY: Cough COMPARISON: None FINDINGS: The heart size is normal. The lungs are well expanded without focal areas of consolidation, pneumothorax or pleural effusions. IMPRESSION: No radiographic evidence of acute cardiopulmonary process. Reported By: Mat Diaz MD Electronically Signed Date/Time: 02/25/22 112 Technologist: EVELYN Dictated Date/Time: 02/25/22 112 Transcribed Date/Time: CT Abdomen Pelvis W Con [facility] : 1985 Sex: FCHI [facility] Pt Name: YULIYA HAMILTON [address] Phys: [place] [address] : 1985 Age: 36 SEX:F [phone] Exam Date: 02/25/22 Status: REG ER Acct: [id number] Loc: ERS Pt Unit #: [id number] Report #: [id number] CC: ED TEMP PROVIDER Louisa Sosa DO CAT SCAN REPORT Report Status: Signed Order # Category/Exam [id number] CT/CT Abdomen Pelvis W Con ([id number]): . Results CT abdomen and pelvis with IV contrast. Oral contrast Was not administered INDICATIONS: Abdominal pain COMPARISON: None FINDINGS: Nonspecific focal groundglass opacity in the posterior left lung base could represent atelectasis or developing infiltrate. Liver, spleen, and pancreas appear unremarkable. Stomach and duodenum appear unremarkable. Adrenal glands appear normal. Kidneys appear unremarkable. Small bowel loops are normal caliber and exhibit normal fold pattern. Appendix is identified and appears unremarkable. Colon is unremarkable. Aorta is normal caliber. No evidence of retroperitoneal or mesenteric adenopathy. Urinary bladder appears unremarkable. Uterus appears unremarkable. Small right ovarian cyst measures 2.3 cm. Ovaries otherwise unremarkable. There is evidence of fluid/blood in the vaginal vault Subcutaneous tissues, abdominal wall, and muscular structures appear unremarkable. Osseous structures appear unremarkable. IMPRESSION: 1. Nonspecific groundglass opacity in the left lung base posteriorly as described above. 2. No acute intra-abdominal process. Small right ovarian cyst. Reported By: Aaron Stone MD Electronically Signed Date/Time: 02/25/22 1320 Technologist: JOAN Dictated Date/Time: 02/25/22 1320 Transcribed Date/Time:
[2022-05-03] MEDS ORDERED: TRANEXAMIC ACID 1,000 MG/10 ML VIAL IV ONE (20:42)
[2022-05-03] MEDS ORDERED: NA CHLORIDE 0.9% 50 ML ONE (21:10)
[2022-05-03 21:12] LABS: Absolute Lymphocytes (CBC) 1.7 K/uL (0.7-4.9); Hematocrit 25.7 % (36.0-45.0); Lymphocytes % 10.6 % (15.3-44.8); MCV 87.6 fL (80-100); MPV 7.1 fL (7.6-11.3); RBC Red Blood Cell Count 2.94 M/uL (3.86-4.86)
[2022-05-03 21:30] LABS: ALT/SGPT 14 U/L (13-56); AST/SGOT 5 U/L (15-37); Albumin 3.3 g/dL (3.4-5.0); Alkaline Phosphatase 88 U/L (45-117); BUN Blood Urea Nitrogen 16 mg/dL (7-18); Bicarbonate 25 mmol/L (21-32); Bilirubin Total 0.2 mg/dL (0.2-1.0); Glomerular Filtration Rate 95 ml/min (=/>90); Glucose Level 122 mg/dL (74-106); Potassium 3.9 mmol/L (3.5-5.1); Sodium Level 138 mmol/L (136-145)
[2022-05-03 21:46] LABS: HCG, Quantitative < 1 mIU/mL (1-3)
[2022-05-03 22:29] LABS: SARS-CoV-2 Antigen Rapid Res Negative (Negative)
--- NOTE | 2022-05-03 22:32 | RAD REPORT ---
EXAM DESCRIPTION: US - Pelvis Complete - 05/03/2022 10:20 pm CLINICAL HISTORY: Pelvic pain with vaginal bleeding COMPARISON: None FINDINGS: Examination is limited as the bladder is poorly distended. Uterus measures 10 x 5 by 6 centimeters. Endometrial stripe is normal thickness. It contains fluid. What appears to be the cervix is bulky and inhomogeneous. Prominent follicles within the ovaries. The ovaries are normal in size and echotexture No significant free fluid is seen. Adnexae appear grossly normal IMPRESSION: Limited examination. Cervix appears bulky. It is recommended that the patient either have an endovaginal sonogram or CT sc an with IV contrast for further evaluation
[2022-05-03 23:21] LABS: Hematocrit 24.3 % (36.0-45.0); MCV 87.5 fL (80-100); MPV 7.7 fL (7.6-11.3); RBC Red Blood Cell Count 2.78 M/uL (3.86-4.86)
--- NOTE | 2022-05-04 01:29 | ER ---
Nurse's Notes [facility] Name: Jayashree Khan Age: 36 yrs Sex: Female : 1985 Arrival Date: 05/03/2022 Time: 19:47 Bed 4 Private MD: Diagnosis: Abnormal uterine and vaginal bleeding, unspecified Presentation: 05/03 19:47 Method Of Arrival: EMS: [facility] ha1 19:47 Coronavirus screen: Vaccine status: Patient reports receiving the 2nd dose of the covid ha1 vaccine. Ebola Screen: No symptoms or risks identified at this time. Initial Sepsis Screen: Does the patient meet any 2 criteria? No. Patient's initial sepsis screen is negative. Does the patient have a suspected source of infection? No. Patient's initial sepsis screen is negative. Risk Assessment: Do you want to hurt yourself or someone else? Patient reports no desire to harm self or others. 19:47 Acuity: WALT 3 ha1 19:55 Chief complaint: EMS states: 34 year old female has a history of mass in the abdomen. ha1 she call due to intense lower abdominal pain and vaginal bleeding. on our arrival blood pressure was 70/50 and heart rate at 144. a 250 mL bolus was given. currently BP 102/72. 23:17 Onset of symptoms was May 03, 2022. kd3 Triage Assessment: 19:47 General: Appears uncomfortable, Behavior is cooperative. Pain: Complains of pain in ha1 lower abdomen Pain does not radiate. Pain currently is 10 out of 10 on a pain scale. Quality of pain is described as throbbing. EENT: No signs and/or symptoms were reported regarding the EENT system. Neuro: Level of Consciousness is awake, alert, obeys commands, Oriented to person, place, time, situation. Cardiovascular: Patient's skin is warm and dry. Respiratory: Airway is patent Respiratory effort is even, unlabored, Respiratory pattern is regular, symmetrical. GI: Abdomen is round non-distended, Reports lower abdominal pain. : Reports vaginal bleeding that is bright red. Derm: Skin is moist, Skin is pale. Musculoskeletal: Circulation, motion, and sensation intact. Historical: - Allergies: 20:02 Ibuprofen; ha1 - Immunization history:: Adult Immunizations unknown. - Social history:: Smoking status: Patient reports the use of cigarette tobacco products, cigars. Screenin:06 Abuse screen: Denies threats or abuse. Denies injuries from another. Nutritional ha1 screening: No deficits noted. Tuberculosis screening: No symptoms or risk factors identified. 23:16 [facility] ED Fall Risk Assessment (Adult) History of falling in the last 3 months, kd3 including since admission No falls in past 3 months (0 pts) Confusion or Disorientation No (0 pts) Intoxicated or Sedated No (0 pts) Impaired Gait No (0 pts) Mobility Assist Device Used No (0 pt) Altered Elimination No (0 pt) Score/Fall Risk Level 0 - 2 = Low Risk Oriented to surroundings. Assessment: 20:45 Reassessment: Patient and/or family updated on plan of care and expected duration. Pain ha1 level reassessed. Patient is alert, oriented x 3, equal unlabored respirations, skin warm/dry/pink. 21:45 Reassessment: Patient and/or family updated on plan of care and expected duration. Pain ha1 level reassessed. Patient is alert, oriented x 3, equal unlabored respirations, skin warm/dry/pink. 22:45 Reassessment: Patient and/or family updated on plan of care and expected duration. Pain ha1 level reassessed. Patient is alert, oriented x 3, equal unlabored respirations, skin warm/dry/pink. 23:52 Reassessment: Patient and/or family updated on plan of care and expected duration. Pain ha1 level reassessed. Patient is alert, oriented x 3, equal unlabored respirations, skin warm/dry/pink. 05/04 02:00 Reassessment: Patient and/or family updated on plan of care and expected duration. Pain ha1 level reassessed. Patient is alert, oriented x 3, equal unlabored respirations, skin warm/dry/pink. notified care provider of BP. Aguayo in shift states " patient will get discharged and can follow up with primary care. Vital Signs: 05/03 19:47 BP 90 / 61; Pulse 82; Resp 20 S; Temp 97.7(O); Pulse Ox 100% on R/A; Weight 68.04 kg; ha1 Height 5 ft. 5 in. (165.10 cm); Pain 10/10; 20:30 BP 92 / 60; Pulse 80; Resp 18 S; Pulse Ox 100% on R/A; ha1 21:30 BP 105 / 57; Pulse 80; Resp 18 S; Pulse Ox 99% on R/A; ha1 22:05 BP 102 / 59; Pulse 76; Resp 19 S; Pulse Ox 100% on R/A; ha1 22:54 BP 100 / 60; Pulse 82; Resp 18 S; Pulse Ox 99% on R/A; ha1 23:15 BP 98 / 57; Pulse 73; Resp 18; Pulse Ox 99% ; kd3 05/04 00:00 BP 97 / 58; Pulse 75; Resp 18 S; Pulse Ox 99% on R/A; ha1 01:00 BP 96 / 55; Pulse 72; Resp 16 S; Pulse Ox 100% on R/A; ha1 02:00 BP 95 / 60; Pulse 75; Resp 18 S; Pulse Ox 99% on R/A; ha1 05/03 19:47 Body Mass Index 24.96 (68.04 kg, 165.10 cm) ha1 ED Course: 05/03 19:47 Patient arrived in ED. vc1 19:48 Jemal Freed MD is Attending Physician. bs3 19:55 Adelia Dumont, HUGO is Primary Nurse. ha1 20:02 Triage completed. ha1 20:06 Arm band placed on right wrist. ha1 20:30 Maintain EMS IV. Dressing intact. Gauge \\T\\ site: 20 aubree in the R. AC. ha1 20:50 Inserted saline lock: 20 gauge in left antecubital area, using aseptic technique. Blood ha1 collected. 21:00 Assist provider with pelvic exam: Set up pelvic tray. Performed by Jemal Freed MD ha1 Patient tolerated well. large blood clot noticed in vaginal area. vaginal bleeding with bright red blood. bleeding moderately. 22:21 US Pelvis Complete In Process Unspecified. EDMS 23:15 CBC w/o diff Sent. kd3 23:17 Patient has correct armband on for positive identification. Placed in gown. Bed in low kd3 position. 05/04 01:13 Chest Single View XRAY In Process Unspecified. EDMS 01:28 Tessy Alvarez MD is Referral Physician. bs3 01:35 Assist provider with pelvic exam: Set up pelvic tray. Performed by Jemal Freed MD ha1 Patient tolerated well. no vaginal bleeding observed. 02:00 IV discontinued, intact, bleeding controlled, No redness/swelling at site. Pressure ha1 dressing applied. Administered Medications: 05/03 20:38 Drug: NS 0.9% 500 ml Route: IV; Rate: bolus; Site: right antecubital; ha1 21:05 Drug: txa 1000 mg Route: IV; Rate: bolus; Site: left antecubital; ha1 21:30 Follow up: Response: No adverse reaction; IV Intake: 50ml ha1 Medication: 23:17 VIS not applicable for this client. kd3 Intake: 21:30 IV: 50ml; Total: 50ml. ha1 Outcome: 05/04 01:28 Discharge ordered by . bs3 01:57 Discharged to home via wheelchair. kd3 01:57 Condition: stable 01:57 Discharge instructions given to patient, Instructed on discharge instructions. 02:09 Patient left the ED. kd3 Signatures: Dispatcher [employer] EDSunitha Rivas RN RN kd3 Humera Walker RN RN vc1 Adelia Dumont RN RN ha1 Stein, Brandon, MD MD bs3 Corrections: (The following items were deleted from the chart) 01:30 05/03 23:48 Reassessment: Patient and/or family updated on plan of care and expected vc1 duration. Pain level reassessed. Patient is alert, oriented x 3, equal unlabored respirations, skin warm/dry/pink. Patient states feeling better. Patient states symptoms have improved. vc1 05/04 04:10 05/03 21:00 Assist provider with pelvic exam: Set up pelvic tray. Performed by Jemal Freed MD Patient tolerated well. ha1
--- NOTE | 2022-05-04 01:29 | EDPHYS ---
Physician Documentation [facility] Name: Jayashree Khan Age: 36 yrs Sex: Female : 1985 Arrival Date: 05/03/2022 Time: 19:47 Bed 4 Private MD: ED Physician Jemal Freed HPI: 05/03 19:57 This 36 yrs old Female presents to ER via Unassigned with complaints of bs3 vaginal bleeding. 19:57 The patient presents with vaginal bleeding that is heavy, reports using 10 pads or bs3 tampons per day. Onset: The symptoms/episode began/occurred today. Associated signs and symptoms: The patient has no apparent associated signs or symptoms. Severity of symptoms: At their worst the symptoms were moderate, severe. 36yo f pmh of anemia, vaginal bleeding, hx of cervical mass requiring transfusion presents with recurrent bleeding, multiple pads today, associated lightheadedness and weakness. No fever or chills, no chest pain, no syncope, notes requiring transfusion before. She had a workup at [facility] in [place] previously for this. . Historical: - Allergies: 20:02 Ibuprofen; ha1 - Immunization history:: Adult Immunizations unknown. - Social history:: Smoking status: Patient reports the use of cigarette tobacco products, cigars. ROS: 19:57 Hematologic/Lymphatic: Negative for swollen nodes, +heavy vaginal bleeding bs3 19:57 Unable to obtain ROS due to patient distress. Exam: 19:57 Constitutional: appears pale and tired Head/Face: Normocephalic, atraumatic. Eyes: bs3 Pupils equal round and reactive to light, extra-ocular motions intact. Lids and lashes normal. ENT: poor dentision Neck: Trachea midline, no thyromegaly, no neck stiffness Chest/axilla: no deformity Cardiovascular: tachcyardic, no murmur Respiratory: Lungs have equal breath sounds bilaterally, clear to auscultation, no respiratory distress Abdomen/GI: Soft, non-tender, no rebound or guarding 21:04 : Pelvic Exam: active oozing from vaginal vault, large clots in underwear. bs3 Vital Signs: 19:47 BP 90 / 61; Pulse 82; Resp 20 S; Temp 97.7(O); Pulse Ox 100% on R/A; Weight 68.04 kg; ha1 Height 5 ft. 5 in. (165.10 cm); Pain 10/10; 20:30 BP 92 / 60; Pulse 80; Resp 18 S; Pulse Ox 100% on R/A; ha1 21:30 BP 105 / 57; Pulse 80; Resp 18 S; Pulse Ox 99% on R/A; ha1 22:05 BP 102 / 59; Pulse 76; Resp 19 S; Pulse Ox 100% on R/A; ha1 22:54 BP 100 / 60; Pulse 82; Resp 18 S; Pulse Ox 99% on R/A; ha1 23:15 BP 98 / 57; Pulse 73; Resp 18; Pulse Ox 99% ; kd3 05/04 00:00 BP 97 / 58; Pulse 75; Resp 18 S; Pulse Ox 99% on R/A; ha1 01:00 BP 96 / 55; Pulse 72; Resp 16 S; Pulse Ox 100% on R/A; ha1 02:00 BP 95 / 60; Pulse 75; Resp 18 S; Pulse Ox 99% on R/A; ha1 05/03 19:47 Body Mass Index 24.96 (68.04 kg, 165.10 cm) ha1 MDM: 05/03 19:48 Patient medically screened. bs3 20:00 Differential diagnosis: malignancy, uterine cancer menorrhea, nonspecific abdominal bs3 pain, ovarian cyst, pelvic inflammatory disease. Data reviewed: vital signs, nurses notes. Consideration of Admission/Observation Patient was admitted/placed on observation. Historians other than the Patient: EMS: per ems, pt found lying on couch, unable to ambulate, 20g placed in left ac, 250cc bolus given. External Records Reviewed: Inpatient record: [facility], admitted 02/26/22, gynonc rec outpatient workup. 21:29 ED course: while pt has a leukocytosis, there is no signs of an acute infection and bs3 therefore we did not evaluate for sepsis as her complaint is vaginal bleeding, her hgb is slightly lower than her admission to [facility], but not sig, will repeat in 3-4 hrs. 23:35 ED course: cbc only slightly lower than initial after 3 hours, pt without sig active bs3 bleeding, advised that she needs outpatient f/u with negative checker/onc, return prec for increased bleeding or any other concerning symptoms. . 05/04 01:26 ED course: pt reassessed, no active bleeding, pt had been provided f/u with parth in bs3 ubly, strongly advised to f/u or advised to discuss with our negative checker who may provide other resources, pt advised to return with recurrent bleeding. . 05/03 19:55 Order name: CBC with Diff; Complete Time: 21:16 3 05/03 19:55 Order name: Comprehensive Metabolic Panel; Complete Time: 21:49 3 05/03 19:55 Order name: Type And Screen; Complete Time: 22:58 3 05/03 19:55 Order name: HCG-Quantitative; Complete Time: 21:49 3 05/03 19:56 Order name: EKG - Nurse/Tech; Complete Time: 21:15 3 05/03 21:24 Order name: US Pelvis Complete; Complete Time: 22:58 3 05/03 21:30 Order name: SARS-COV-2 Antigen Rapid; Complete Time: 22:58 3 05/03 21:30 Order name: Chest Single View XRAY 3 05/03 22:58 Order name: CBC w/o diff 3 05/03 23:22 Order name: CBC without Diff; Complete Time: 23:29 EDMS Administered Medications: 05/03 20:38 Drug: NS 0.9% 500 ml Route: IV; Rate: bolus; Site: right antecubital; ha1 21:05 Drug: txa 1000 mg Route: IV; Rate: bolus; Site: left antecubital; ha1 21:30 Follow up: Response: No adverse reaction; IV Intake: 50ml ha1 Disposition Summary: 05/04/22 01:28 Discharge Ordered Location: Home bs3 Problem: an acute exacerbation bs3 Symptoms: have improved bs3 Condition: Stable bs3 Diagnosis - Abnormal uterine and vaginal bleeding, unspecified bs3 Followup: bs3 - With: Tessy Alvarez MD - When: 1 - 2 days - Reason: Re-evaluation by your physician Discharge Instructions: - Discharge Summary Sheet bs3 - Abnormal Uterine Bleeding bs3 Forms: - Medication Reconciliation Form bs3 - Thank You Letter bs3 - Antibiotic Education bs3 - Prescription Opioid Use bs3 Signatures: Dispatcher [employer] EDMS Adelia Dumont RN RN ha1 Jemal Freed MD MD bs3
[2022-05-04 02:57] VITALS: TEMP 97.7
[2022-05-04 03:02] VITALS: O2SAT 99
[2022-05-04 03:04] VITALS: BP 98/57
--- NOTE | 2022-05-05 18:54 | RAD REPORT ---
EXAM DESCRIPTION: RAD - Chest Single View - 05/03/2022 10:58 pm CLINICAL HISTORY: 6 years Female, PRODUCTIVE COUGH COMPARISON: None FINDINGS: No focal lung consolidation. No pleural effusion. No pneumothorax. Cardiomediastinal silhouette is within normal limits. No acute osseous abnormality. IMPRESSION: No acute cardiopulmonary disease. Electronically signed by: Pineda Rasmussen DO 05/03/2022 11:27 PM NURSE ASSESSOR Due to temporary technical issues with the PACS/Fluency reporting system, reports are being signed by the in house radiologists without review as a courtesy to insure prompt reporting. The interpreting radiologist is fully responsible for the content of the report.
--- NOTE | 2022-05-06 18:47 | EKG ---
Test Date: 2022-05-03 Test Time: 21:11:40 [employer]attle [employer] Manager: MEASUREMENT RESULTS: Intervals: Rate: 74 MD: 140 QRSD: 84 QT: 388 QTc: 430 Harris: P: 115 MD: 140 QRS: 189 T: 107 INTERPRETIVE STATEMENTS: Suspect arm lead reversal, interpretation assumes no reversal Normal sinus rhythm Right superior axis deviation Possible Right ventricular hypertrophy Abnormal ECG Compared to ECG 07/31/2012 02:05:11 Right superior axis now present Electronically Signed On 05-06-22 18:42:29 ASW SPECIALIST by Nam Azevedo
== END 2022-05-04 02:09 | disposition home or self-care (01) ==
LOC: ER 19:41
DX: N93.9 Abnormal uterine and vaginal bleeding, unspecified (principal)
CPT/HCPCS: 36415; 71045; 76856; 80053; 84702; 85025; 85027; 86850; 86900; 86901; 87811; 93005; 99284

== ENCOUNTER 2022-07-21 06:43 | Emergency (ER) | payer SELFPAY ==
[~2022-07-21 06:43] MED LIST: LORazepam 2 MG/ML VIAL ONE
--- OUTSIDE RECORDS SUMMARY | 2022-07-21 06:53 | XMS REPORT | Continuity of Care Document ---
:1985 Author Organization [facility] t Address [address] [place] [address] Care Team Providers Name Role Phone No, Pcp [facility] Primary Care Physician Unavailable Armond Owens Attending Clinician Unavailable Farzaneh Horvath Attending Clinician Doris ANDRADE, Amalia Zapata Attending Clinician [phone] Nayla ANDRADE, Hussein Chand Attending Clinician Rox ANDRADE, Eleni Leary Attending Clinician [phone] ELENI GRAMAJO Attending Clinician Unavailable Boy Ndiaye Attending Clinician Unavailable Jodie ANDRADE, Hebert Joaquin Attending Clinician [phone] Gabe Casas Attending Clinician Unavailable Livier Carver Attending Clinician Unavailable Sidney ANDRADE, Bradley Rich Attending Clinician [phone] Rick ANDRADE, Noris Castaneda Attending Clinician Ajay ANDRADE, Patricia Blanc Attending Clinician [phone] Miah ANDRADE, Nathaniel Solitario Attending Clinician Phil ANDRADE, Dana Attending Clinician DANA VILLARREAL Attending Clinician Unavailable Louisa Sosa Attending Clinician Unavailable _[email or web address] Attending Clinician Unavailable Dallin Sanchez Attending Clinician Unavailable Armond Owens Admitting Clinician Unavailable AMALIA GEORGE Admitting Clinician Unavailable Bárbara Lemons Admitting Clinician Unavailable PATRICIA MOONEY Admitting Clinician Unavailable [email or web address] Admitting Clinician Unavailable Payers Payer Name Policy Type Policy Number Effective Date Expiration Date Agustín DEL REAL [id number] Problems Condition Condition Condition Status Onset Resolution Last Treating Co mments Source Name Details Category Date Date Treatment Clinician Date Acute on Acute on Disease [facility] blood loss [facility]: Mi dical anemia anemia 00 Center Cervical Cervical Disease Active 2021-03 [facility] Medical 00 [place] Symptomati Symptomati Disease Active 2021-[address] [facility] anemia c anemia 2-19 [facility] 00:[facility]: Medical 00 [place] Vaginal Vaginal Disease Active 2021-[address] bleeding bleeding 2- [facility] 00:[facility]: Medical 00 [employer] AMANDA (iron AMANDA (iron Disease Recurre [facility] deficiency deficiency [facility] kes anemia) anemia) [facility] Cervical Cervical Disease Recurre [facility] carcinoma carcinoma [facility] Drug use Drug use Disease Recurre [facility] a[facility] Incarcerat Incarcerat Disease Recurre [facility] ion ion [facility] Hypotensio Hypotensio Disease Active [facility] n due to n due to [facility] blood loss blood loss Mi dical Center Hemorrhagi Hemorrhagi Disease Active [facility] shock c shock [facility] Acute pain Acute pain Disease Active C [facility] Allergies, Adverse Reactions, Alerts Allergy Allergy Status Severity Reaction(s) Onset Inactive Treating Comm ents Source Name Type Date Date Clinician Penicill Propensi Active [facility] to 06-08 [facility] adverse 00:00: Medical reaction 00 Center s Ibuprofe Propensi Active [facility] ty to 06-08 [facility] adverse 00:00: Medical reaction 00 Center s PENICILL Allergy Active [facility] INS 06-08 00:00: 00 IBUPROFE Allergy Active [facility] N 06-08 00:00: 00 ibuprofe DA Active MT [facility] n 03-10 [facility] 00:00: St 00 [place] Iam NSAIDS Allergy Active 2021-03 St. (Non-[place] to [facility] substan 09:12: Regiona Anti-Inf e 09 l lamma Health ibuprofe Allergy Active 2021-03 St. n to [facility] substanc 09:05: Regiona e 34 l Health Penicill Allergy Active 2021-03 St. ins to [place] substanc 09:05: Regiona e 21 l Health NSAIDS DA Active U 2021-03 [facility] [facility] Anti-Inf 00 lamma Penicill DA Active U 2021-03 STLSJX ins 00:00: 00 ibuprofe DA Active U 2021-03 STLSJX n 00:00: 00 IBPROFEN DA Active MO EDEMA [facility] 04-14 [facility] 00:00: Marianela 00 [facility] Penicill DA Active U [facility] ins 04-14 [facility] 00:00: Marianela 00 [facility] Penicill DA Active U RASH-UNKNOWN HC A ins 04-14 Corpus 00:00: Marianela 00 [facility] Penicill DA Active U [facility] ins 03-27 [facility] 00:00: Marianela 00 Medical Center NO KNOWN Allergy Active [facility] Medical Coventry Social History Social Habit Start Date Stop Date Quantity Comments Source History [facility] History of tobacco [place] [facility] 2022-06-14 2022-06-[address] [facility] Transport Med 00:00:00 00:00:[address] History [facility] 2022-06-14 2022-06-[address] [facility] Housing Unable to 00:00:00 00:00:00 Medical Center Pay History [facility] 2022-06-14 2022-06-[address] [facility] Housing Places 00:00:00 00:00:00 Medical Ce nter Lived History [facility] 2022-06-14 2022-06-[address] [facility] Housing Homeless 00:00:00 00:00:00 Medical Center Last Year Tobacco use and 2022-02-25 2022-02-[address] [facility] exposure 00:00:00 00:00:00 non-user Medical Center Sex Assigned At 1985 [address] [facility] [address] Marj kes 00:00:00 00:00:00 Medical Center Smoking Status Start Date Stop Date Source Tobacco smoking [facility] nal consumption unknown Health (finding) Ex-smoker 2022-02-25 00:00:00 2022-02-[address] [facility] Medical 00:00:00 Center Medications Ordered Filled Start Stop Current Ordering Indication Dosage Frequency Signature Comments Components Source Medication Medication Date Date Medication? Clinician (SIG) Name Name ferrous Yes 325mg Take 325 [facility] sulfate 325 4-07 mg by [facility] (65 FE) MG 14:05: mouth Medica l tablet 14 daily with Center breakfast. ferrous Yes 325mg Take 325 [facility] sulfate 325 4-07 [facility] by [facility] (65 FE) MG 14:05: mouth Medica l tablet 14 daily with Center breakfast. folic acid 2023- Yes 1mg QD Take [address] (FOLVITE) 1 4-07 04-06 tablet (1 Marj kes MG tablet 00:00: 23:59 mg total) Me dical 00 :00 by mouth Center in the morning. thiamine 2023- Yes 100mg QD Take 1 [facility] 100 MG 06-14- tablet [facility] tablet 00:00: 23:59 (100 mg Medical 00 :00 total) by Center mouth in the morning. folic acid 2023- Yes 1mg QD Take [address] (FOLVITE) 1 06-14-06 tablet (1 Marj kes MG tablet 00:00: 23:59 mg total) Me dical 00 :00 by mouth Center in the morning. thiamine 2023- Yes 100mg QD Take 1 [facility] 100 MG 06-14- tablet [facility] tablet 00:00: 23:59 (100 mg Medical 00 :00 total) by Center mouth in the morning. ferrous 2021-03 Yes 325mg Take 325 [facility] [...] tablet 58 daily with Center breakfast. ondansetron 2021-03- No 4mg Take [address] [facility] (ZOFRAN-ODT 2-21 12-28 tablet (4 Marj kes ) 4 MG 00:00: 23:59 mg total) Medic al disintegrat 00 :00 by mouth Cent er ing tablet every 8 (eight) hours as needed for up to 7 days. ondansetron 2021-03- No 4mg Take [address] [facility] (ZOFRAN-ODT 2-21 12-28 tablet (4 Marj kes ) 4 MG 00:00: 23:59 mg total) Medic al disintegrat 00 :00 by mouth Cent er ing tablet every 8 (eight) hours as needed for up to 7 days. ondansetron 2021-03- No 4mg Take [address] [facility] (ZOFRAN-ODT 2-21 12-28 tablet (4 Marj kes ) 4 MG 00:00: 23:59 mg total) Medic al disintegrat 00 :00 by mouth Cent er ing tablet every 8 (eight) hours as needed for up to 7 days. ondansetron 2021-03- No 4mg Take [address] [facility] (ZOFRAN-ODT 2-21 12-28 tablet (4 Marj kes ) 4 MG 00:00: 23:59 mg total) Medic al disintegrat 00 :00 by mouth Cent er ing tablet every 8 (eight) hours as needed for up to 7 days. ondansetron 2021-03- No 4mg Take [address] [facility] (ZOFRAN-ODT 2-21 12-28 tablet (4 Marj kes ) 4 MG 00:00: 23:59 mg total) Medic al disintegrat 00 :00 by mouth Cent er ing tablet every 8 (eight) hours as needed for up to 7 days. ondansetron 2021-03- No 4mg Take [address] [facility] (ZOFRAN-ODT 2-21 12-28 tablet (4 Marj kes ) 4 MG 00:00: 23:59 mg total) Medic al disintegrat 00 :00 by mouth Cent er ing tablet every 8 (eight) hours as needed for up to 7 days. ondansetron 2021-03- No 4mg Take [address] [facility] (ZOFRAN-ODT 2-21 12-28 tablet (4 Marj kes ) 4 MG 00:00: 23:59 mg total) Medic al disintegrat 00 :00 by mouth Cent er ing tablet every 8 (eight) hours as needed for up to 7 days. Vital Signs Vital Name Observation Time Observation Value Comments Source HEIGHT 2022-06-08 11:00:00 165.1 cm WEIGHT 2022-06-08 11:00:00 63.5 kg HEIGHT 2022-06-08 11:00:00 165.1 cm WEIGHT 2022-06-08 11:00:00 63.5 kg HEIGHT 2022-06-08 11:00:00 165.1 cm WEIGHT 2022-06-08 11:00:00 63.5 kg WEIGHT 2022-03-09 11:47:00 72.886835 kg HEIGHT 2022-03-09 11:47:00 165.1 cm Body Temperature 2022-03-09 09:36:00 97.7 [degF] [facility] Heart Rate 2022-03-09 09:36:00 59 /min [facility] Respiratory rate 2022-03-09 09:36:00 20 /min [facility] Oxygen saturation by 2022-03-09 09:36:00 97 /min [place] Pulse oximetry [facility] BP Systolic 2022-03-09 09:36:00 99 mm[Hg] [facility] BP Diastolic 2022-03-09 09:36:00 58 mm[Hg] [facility] HEIGHT 2022-02-26 17:00:00 165.1 cm WEIGHT 2022-02-26 17:00:00 72.576 kg HEIGHT 2022-02-26 17:00:00 165.1 cm WEIGHT 2022-02-26 17:00:00 72.576 kg HEIGHT 2022-02-26 17:00:00 165.1 cm WEIGHT 2022-02-26 17:00:00 72.576 kg Heart rate 2022-06-14 12:46:18 73 /min [facility] Respiratory rate 2022-06-14 12:46:18 18 /min [facility] Oxygen saturation in 2022-06-14 12:46:18 100 /min [facility] Arterial blood by Medical Ce nter Pulse oximetry Body temperature 2022-06-14 12:45:29 36.61 Emelyn [facility] Systolic blood 2022-06-14 12:45:15 100 mm[Hg] [facility] Diastolic blood 2022-06-14 12:45:15 64 mm[Hg] [facility] Body height 2022-06-08 11:00:00 165.1 cm [facility] Body weight 2022-06-08 11:00:00 63.5 kg [facility] BMI 2022-06-08 11:00:00 23.30 kg/m2 [facility] Heart rate 2022-02-27 11:58:02 65 /min [facility] Respiratory rate 2022-02-27 11:58:02 17 /min [facility] Oxygen saturation in 2022-02-27 11:58:02 96 /min [facility] Arterial blood by Medical Ce nter Pulse oximetry Body temperature 2022-02-27 11:57:00 36.89 Emelyn [facility] Systolic blood 2022-02-27 11:56:30 95 mm[Hg] [facility] Diastolic blood 2022-02-27 11:56:30 54 mm[Hg] [facility] Body height 2022-02-26 18:01:00 165.1 cm [facility] Body weight 2022-02-26 18:01:00 72.6 kg [facility] BMI 2022-02-26 18:01:00 26.63 kg/m2 [facility] Procedures Procedure Date / Time Performing Clinician Source Performed BASIC METABOLIC PANEL 2022-06-14 03:21[facility] 2022-06-14 03:21:00 [facility] CBC (HEMOGRAM ONLY) 2022-06-13 17:15:00 [facility] CBC (HEMOGRAM ONLY) 2022-06-13 03:20[facility] BASIC METABOLIC PANEL 2022-06-13 03:20:00 [facility] PROTHROMBIN TIME/INR 2022-06-12 09:42:00 [facility] CBC W/PLT COUNT & AUTO 2022-06-12 09:42:[address] [facility] CBC W/PLT COUNT & AUTO 2022-06-12 09:42:[address] [facility] BASIC METABOLIC PANEL 2022-06-12 08:39:00 Jennifer Pablo [facility] MAGNESIUM 2022-06-12 08:39:[address] [facility] PHOSPHORUS 2022-06-12 08:39:[address] [facility] HEPATIC FUNCTION PANEL 2022-06-12 08:39:00 Samy [facility] PREPARE LEUKO-REDUCED 2022-06-11 23:54:00 Radha Dahl [facility] CALCIUM, IONIZED 2022-06-11 12:08:00 Becki Barboza [facility] CBC (HEMOGRAM ONLY) 2022-06-11 12:08:00 Becki Barboza [facility] PROTHROMBIN TIME/INR 2022-06-11 12:08:00 Becki Barboza [facility] BASIC METABOLIC PANEL 2022-06-11 12:08:00 SamyJennifer [facility] POCT-GLUCOSE METER 2022-06-11 11:51:00 Hussein Winslow [facility] POCT-GLUCOSE METER 2022-06-11 06:30:00 Hussein Winslow [facility] CBC (HEMOGRAM ONLY) 2022-06-11 05:01:00 Becki Barboza [facility] PROTHROMBIN TIME/INR 2022-06-11 05:01:00 Becki Barboza [facility] CALCIUM, IONIZED 2022-06-11 04:32:00 Becki Barboza [facility] HEPATIC FUNCTION PANEL 2022-06-11 03:02:00 Chikis Jackson [facility] PHOSPHORUS 2022-06-11 03:02:00 [facility] 2022-06-11 03:02:00 Becki Barboza [facility] POCT-GLUCOSE METER 2022-06-11 00:34:00 [facility] LEUKO-REDUCED RBC 2022-06-10 23:54:00 Chikis Jackson [facility] PREPARE LEUKO-REDUCED 2022-06-10 23:54:00 Korina Terrell [facility] CALCIUM, IONIZED 2022-06-10 22:12:00 Becki Barboza [facility] PROTHROMBIN TIME/INR 2022-06-10 22:12:00 Becki Barboza [facility] CBC W/PLT COUNT & AUTO 2022-06-10 22:12:00 Emir Oreilly [facility] CBC W/PLT COUNT & AUTO 2022-06-10 22:12:00 Emir Oreilly [facility] CALCIUM, IONIZED 2022-06-10 17:19:00 Becki Barboza [facility] CBC (HEMOGRAM ONLY) 2022-06-10 17:19:00 Becki Barboza [facility] FIBRINOGEN 2022-06-10 17:19:00 Becki Barboza [facility] PROTHROMBIN TIME/INR 2022-06-10 17:19:00 Becki Barboza [facility] POCT-GLUCOSE METER 2022-06-10 17:18:00 [facility] TRANSFUSE LEUKO-REDUCED 2022-06-10 12:05:00 Radha Dahl [facility] CALCIUM, IONIZED 2022-06-10 12:03:00 Becki Barboza [facility] CBC (HEMOGRAM ONLY) 2022-06-10 12:03:00 Becki Barboza [facility] FIBRINOGEN 2022-06-10 12:03:00 [facility] PROT[facility]/INR 2022-06-10 12:03:00 Becki Barboza [facility] POCT-GLUCOSE METER 2022-06-10 11:11:00 Hussein Winslow [facility] VANCOMYCIN LEVEL, TROUGH 2022-06-10 09:06:00 Louisa Shrestha [facility] CALCIUM, IONIZED 2022-06-10 05:57:00 Becki Barboza [facility] CBC (HEMOGRAM ONLY) 2022-06-10 05:57:00 Becki Barboza [facility] FIBRINOGEN 2022-06-10 05:57:00 Becki Barboza [facility] PROTHROMBIN TIME/INR 2022-06-10 05:57:00 Becki Barboza [facility] POCT-GLUCOSE METER 2022-06-10 05:30:00 Amalia George [facility] CALCIUM, IONIZED 2022-06-10 01:00:00 Becki Barboza [facility] CBC (HEMOGRAM ONLY) 2022-06-10 01:00:00 Becki Barboza [facility] FIBRINOGEN 2022-06-10 01:00:00 Becki Barboza [facility] PROTHROMBIN TIME/INR 2022-06-10 01:00:00 Becki Barboza [facility] HEPATIC FUNCTION PANEL 2022-06-10 01:00:00 Chikis Jackson [facility] PHOSPHORUS 2022-06-10 01:00:00 Chikis Jackson [facility] BASIC METABOLIC PANEL 2022-06-10 01:00:00 Becki Barboza [facility] MAGNESIUM 2022-06-10 01:00:00 [facility] PREPARE LEUKO-REDUCED RBC 2022-06-09 23:54:[address] [facility] PREPARE PLASMA 2022-06-09 23:54:00 Chikis Jackson [facility] PREPARE CRYOPRECIPITATE 2022-06-09 23:54:00 Becki Barboza [facility] PREPARE LEUKO-REDUCED 2022-06-09 23:54:00 Chikis Jackson [facility] PLATELETS [facility] POCT-GLUCOSE METER 2022-06-09 23:22:00 [facility]SF[facility] LEUKO-REDUCED 2022-06-09 22:55:00 Korina Terrell [facility] POCT-GLUCOSE METER 2022-06-09 17:17:00 [facility]CI[facility], [facility]ON[facility]ED 2022-06-09 17:14:00 [facility] ([facility] ONLY) 2022-06-09 17:14:00 [facility] FIBRINOGEN 2022-06-09 17:14:00 [facility] PROTHROMBIN TIME/INR 2022-06-09 17:14:00 [facility] BLOOD [facility]URE 2022-06-09 15:03:00 Odilia Freeman [facility] POCT-GLUCOSE METER 2022-06-09 12:15:00 Doris [facility] CALCIUM, IONIZED 2022-06-09 12:05:00 Tanya Barbozazabeth [facility] CBC (HEMOGRAM ONLY) 2022-06-09 12:05:00 [facility] FIBRINOGEN 2022-06-09 12:05:00 Tamra Becki [facility] PROTHROMBIN TIME/INR 2022-06-09 12:05:00 Tamra [facility] PROCALCITONIN 2022-06-09 12:05:00 Tamra [facility] BLOOD GAS, ARTERIAL 2022-06-09 08:18:00 [facility] PROTHROMBIN TIME/INR 2022-06-09 08:13:00 Becki Barboza [facility] CBC (HEMOGRAM ONLY) 2022-06-09 08:13:00 Manuel, [facility] BASIC METABOLIC PANEL 2022-06-09 08:13:00 Manuel, [facility] FIBRINOGEN 2022-06-09 08:13:00 Manuel, [facility] LACTIC ACID, ARTERIAL 2022-06-09 08:13:00 Manuel, [facility] CALCIUM, IONIZED 2022-06-09 08:13:00 Manuel, [facility] MAGNESIUM 2022-06-09 08:13:00 Manuel, [facility] URINALYSIS W/ REFLEX URINE 2022-06-09 04:49:00 RupertoPatsy [facility] RAPID DRUG SCREEN, URINE 2022-06-09 04:49:00 RupertoPatsy [facility] DRUG TEST, GENERAL 2022-06-09 04:49:00 Joey Crandall [facility] TOXICOLOGY, URINE D. [facility] BLOOD GAS, ARTERIAL 2022-06-09 04:29:00 Manuel, [facility] PROTHROMBIN TIME/INR 2022-06-09 04:28:00 Becki Barboza [facility] CBC (HEMOGRAM ONLY) 2022-06-09 04:28:00 Manuel, [facility] BASIC METABOLIC PANEL 2022-06-09 04:28:00 Manuel, [facility] FIBRINOGEN 2022-06-09 04:28:00 Manuel, [facility] LACTIC ACID, ARTERIAL 2022-06-09 04:28:00 Manuel, [facility] HEPATIC FUNCTION PANEL 2022-06-09 04:28:00 Manuel, [facility] CALCIUM, IONIZED 2022-06-09 04:28:00 Manuel, [facility] PHOSPHORUS 2022-06-09 04:28:00 Manuel, [facility] MAGNESIUM 2022-06-09 04:28:00 Manuel, [facility] VWF ACTIVITY 2022-06-09 04:28:00 Ramon Botello [facility] XR CHEST 1 VIEW PORTABLE / 2022-06-09 01:43:00 ManuelChikis smith [facility] BEDSIDE [facility] TRANSFUSE LEUKO-REDUCED 2022-06-09 01:38:00 Manuel, [facility] PLATELETS [facility] THROMBOELASTOGRAPH (TEG) 2022-06-09 01:14:00 Manuel, [facility] TRANSFUSE PLASMA 2022-06-09 00:46:00 Manuel, [facility] CBC W/PLT COUNT & AUTO 2022-06-09 00:29:00 Manuel, [facility] DIFFERENTIAL [facility] CBC W/PLT COUNT & AUTO 2022-06-09 00:29:00 Manuel, [facility] (CELLAVISION MANUAL DIFF) 2022-06-09 00:29:00 Chikis [address] [facility] BLOOD GAS, ARTERIAL 2022-06-09 00:26:00 Manuel, [facility] VITAMIN B12 2022-06-09 00:25:00 Ramon Botello [facility] BASIC METABOLIC PANEL 2022-06-09 00:25:00 Manuel, [facility] FIBRINOGEN 2022-06-09 00:25:00 Manuel, [facility] LACTIC ACID, ARTERIAL 2022-06-09 00:25:00 Manuel, [facility] CALCIUM, IONIZED 2022-06-09 00:25:00 Manuel, [facility] MAGNESIUM 2022-06-09 00:25:00 Manuel, [facility] XR CHEST 1 VIEW PORTABLE / 2022-06-09 00:15:00 Manuel, [facility] CBC (HEMOGRAM ONLY) 2022-06-08 22:09:00 Manuel, [facility] BLOOD GAS, ARTERIAL 2022-06-08 22:06:00 Manuel, [facility] TRANSFUSE PLASMA 2022-06-08 21:51:00 [facility] PREPARE PLASMA 2022-06-08 21:29:00 Manuel, [facility] BLOOD GAS, ARTERIAL 2022-06-08 20:53:00 Mofor, [facility] FIBRINOGEN 2022-06-08 20:50:00 Becki Barboza [facility] PROTHROMBIN TIME/INR 2022-06-08 20:50:[address] [facility] MAGNESIUM 2022-06-08 20:50:00 Manuel, [facility] PHOSPHORUS 2022-06-08 20:50:00 Manuel, [facility] CALCIUM, IONIZED 2022-06-08 20:50:00 Manuel, [facility] LACTIC ACID, ARTERIAL 2022-06-08 20:50:00 Manuel, [facility] APTT 2022-06-08 20:50:00 Manuel, [facility] THROMBOELASTOGRAPH (TEG) 2022-06-08 20:50:00 Manuel, Kouame [facility] IR EMBOLIZATION ARTERIAL 2022-06-08 20:33:00 Matthew Santiago [facility] TRANSFUSE LEUKO-REDUCED RED 2022-06-08 20:31:00 Matthew Santiago [facility] TRANSFUSE LEUKO-REDUCED RED 2022-06-08 18:18:00 [facility] SCREEN, URINE 2022-06-08 18:14:00 Matthew Santiago [facility] TRANSFUSE CRYOPRECIPITATE 2022-06-08 18:04:00 Becki Barboza [facility] TRANSFUSE PLASMA 2022-06-08 17:57:00 Marimar Santiagogarcía [facility] hospit[facility] TRANSFUSE LEUKO-REDUCED 2022-06-08 17:41:00 Chikis Jackson [facility] PLATELETS [facility] THROMBOELASTOGRAPH (TEG) 2022-06-08 17:36:00 [facility] melendez [facility] LACTIC ACID, ARTERIAL 2022-06-08 17:35:00 Noa L[facility] PT/APTT 2022-06-08 17:35:00 [facility] FIBRIN[facility]EN 2022-06-08 17:35:00 [facility] D-DIMER 2022-06-08 17:35:00 [facility] CALCIUM, IONIZED 2022-06-08 17:35:00 [facility] CBC W/PLT COUNT & AUTO 2022-06-08 17:35:00 [facility] BASIC METABOLIC PANEL 2022-06-08 17:35:00 [facility] RETICULOCYTE COUNT 2022-06-08 17:35:00 Ramon Botello [facility] LACTATE DEHYDROGENASE (LDH) 2022-06-08 17:35:00 Ramon Botello [facility] CBC W/PLT COUNT & AUTO 2022-06-08 17:35:00 Matthew Santiago [facility] POCT-BLOOD GASES, ARTERIAL 2022-06-08 17:22:00 Amalia [facility] POCT-SODIUM 2022-06-08 17:22:00 Doris [facility] POCT-POTASSIUM 2022-06-08 17:22:00 [facility] POCT-HEMOGLOBIN 2022-06-08 17:22:00 [facility] PO[facility]-HEMATOCRIT 2022-06-08 17:22:00 [facility] POCT-GLUCOSE 2022-06-08 17:22:00 [facility] HEPAT[facility]IS C PCR, 2022-06-08 16:26:00 Pernell [facility] HEPATITIS B PCR, 2022-06-08 16:26:00 Pernell [facility] CMV PCR, QUANTITATIVE 2022-06-08 16:26:00 Laura Gimenez [facility] EBV VIRAL LOAD 2022-06-08 16:26:00 [facility] TRANSFUSE LEUKO-REDUCED RED 2022-06-08 16:15:00 Chikis Jackson [facility] BLOOD CELLS [facility] SALICYLATE LEVEL 2022-06-08 15:26:00 Joey Crandall [facility] CORTISOL 2022-06-08 15:26:00 Noa Loyola [facility] HEPATITIS B CORE ANTIBODY, 2022-06-08 15:26:00 Laura Gimenez [facility] HEPATITIS A ANTIBODY, IGG 2022-06-08 15:26:00 Dadlani, [facility] HEPATITIS B SURFACE ANTIBODY 2022-06-08 15:26:00 [facility] CERULOPLASMIN 2022-06-08 15:26:00 [facility] [id number]\\, SERUM 2022-06-08 15:26:00 [facility] ANTI-NUCLEAR ANTIBODY (HAYDEN) 2022-06-08 15:26:00 [facility] HEPATITIS A ANTIBODY, IGM 2022-06-08 15:26:00 [facility] EBV ANTIBODY, IGM 2022-06-08 15:26:00 [facility] FERRITIN 2022-06-08 15:26:00 Ramon Botello [facility] IRON, TIBC, % SAT. (WITHOUT 2022-06-08 15:26:00 Ramon Botello [facility] FERRITIN) [facility] ACTIN (SMOOTH MUSCLE) 2022-06-08 15:26:00 [facility] ANTIBODY, IGG [facility] HEPATITIS E ABS IGG/IGM EIA 2022-06-08 15:26:00 [facility] MITOCHONDRIAL AB SCREEN 2022-06-08 15:26:00 [facility] MITOCHONDRIAL AB TITER 2022-06-08 15:26:00 [facility] AMMONIA 2022-06-08 15:00:00 Joey Crandall [facility] CREATINE KINASE (CK) 2022-06-08 14:37:00 [facility] GLUCOSE 2022-06-08 14:37:00 [facility] SODIUM 2022-06-08 14:37:00 [facility] POTASSIUM 2022-06-08 14:37:00 [facility] BASIC METABOLIC PANEL 2022-06-08 14:37:00 Chikis Jackson [facility] US ABDOMEN COMPLETE 2022-06-08 13:36:00 MelanieRaya [facility] US DOPPLER 2022-06-08 13:36:00 Donavan [facility] XR CHEST 1 VIEW PORTABLE / 2022-06-08 12:26:[address] [facility] CBC W/PLT COUNT & AUTO 2022-06-08 12:23:00 [facility] DIFFERENTIAL [facility] COMPREHENSIVE METABOLIC 2022-06-08 12:23:00 MelanieRaya [facility] PANEL [facility] APTT 2022-06-08 12:23:00 [facility] PROTHROMBIN TIME/INR 2022-06-08 12:23:00 Joey Crandall [facility] MAGNESIUM 2022-06-08 12:23:00 MelanieRaya [facility] PHOSPHORUS 2022-06-08 12:23:00 [facility] IRON, TIBC, % SAT. (WITHOUT 2022-06-08 12:23:00 [facility] FERRITIN) D. [facility] FERRITIN 2022-06-08 12:23:00 MelanieRaya [facility] VITAMIN B12 2022-06-08 12:23:00 MelanieRaya [facility] FIBRINOGEN 2022-06-08 12:23:00 Nir [facility] TSH/FREE T4 IF INDICATED 2022-06-08 12:23:00 Noa Loyola [facility] HEPATITIS C ANTIBODY 2022-06-08 12:23:00 Pernell [facility] HEPATITIS B SURFACE ANTIGEN 2022-06-08 12:23:00 DonavanLaura [facility] HC LAB HIV-1 AG W/HIV-1&2 AB 2022-06-08 12:23:00 [facility] T4, FREE 2022-06-08 12:23:00 Noa Loyola [facility] TYPE AND SCREEN, AUTOMATED 2022-06-08 12:23:00 Cherise Crandall [facility] CBC W/PLT COUNT & AUTO 2022-06-08 12:23:00 Joey Crandall [facility] POCT-BLOOD GASES, ARTERIAL 2022-06-08 12:18:00 Amalia [facility] POCT-SODIUM 2022-06-08 12:18:00 Amalia George [facility] POCT-POTASSIUM 2022-06-08 12:18:00 Doris, [facility] POCT-HEMOGLOBIN 2022-06-08 12:18:00 Doris [facility] POCT-HEMATOCRIT 2022-06-08 12:18:00 [facility] POCT-GLUCOSE 2022-06-08 12:18:00 [facility] EKG-SCANNED 2022-06-08 00:00:00 ProviderCodi [facility] US Pelvic Transvag W Doppler 2022-03-09 03:52:[address] [facility] [address] Abdomen Pelvis W Con 2022-03-09 00:15:00 [facility] EKG 12 Lead in Emergency 2022-03-08 23:09:00 [facility] XR Chest 1 View Portable 2022-03-08 23:08:00 [facility] PREPARE RBC 2022-02-27 23:54:[address] [facility] MAGNESIUM 2022-02-27 03:49:[address] [facility] PHOSPHORUS 2022-02-27 03:49:[address] [facility] IRON, TIBC, % SAT. (WITHOUT 2022-02-27 03:49:00 Soheila-Rach, Sung In [facility] FERRITIN) [facility] FERRITIN 2022-02-27 03:49:00 Soheila-Rach, Sung In [facility] INCUBATED 1:1 MIXING STUDY 2022-02-27 03:49:00 Soheila-Rach, Sung In [facility] BASIC METABOLIC PANEL 2022-02-27 03:49:00 Soheila-Rach, Sung In [facility] CBC (HEMOGRAM ONLY) 2022-02-27 03:49:00 Soheila-Rach, Sung In [facility] TISSUE EXAM 2022-02-26 16:38:00 ChirYamile walker [facility] CBC (HEMOGRAM ONLY) 2022-02-26 08:34:00 Soheila-Rach, Sung In [facility] PT/APTT 2022-02-26 08:33:00 Soheila-Rach, Sung In [facility] FACTOR 9 ACTIVITY 2022-02-26 08:33:00 Soheila-Rach, Sung In [facility] FACTOR 8 ACTIVITY 2022-02-26 08:33:00 Soheila-Rach, Sung In [facility] HEMOGLOBIN AND HEMATOCRIT 2022-02-26 05:29:00 Patricia Mooney [facility] RETICULOCYTE COUNT 2022-02-26 05:29:00 Soheila-Rach, Sung In [facility] CALCIUM, IONIZED 2022-02-26 03:56:00 Patricia Mooney [facility] TRANSFUSE LEUKO-REDUCED RED 2022-02-26 01:35:00 Robert Mooney [facility] BLOOD CELLS [facility] SARS-COV2/RT-PCR (SLHS & REF 2022-02-25 23:23:00 Pardeep Mooney [facility] LABS) [facility] ABORH, MANUAL 2022-02-25 23:22:00 Liset Cardona [facility] CBC W/PLT COUNT & AUTO 2022-02-25 22:03:[address] [facility] COMPREHENSIVE METABOLIC 2022-02-25 22:03:00 Patricia Mooney [facility] PROTHROMBIN TIME/INR 2022-02-25 22:03:00 [facility]oney [facility] MAGNESIUM 2022-02-25 22:03:[address] [facility] TYPE AND SCREEN, AUTOMATED 2022-02-25 22:03:00 [place] Patricia [facility] CBC W/PLT COUNT & AUTO 2022-02-25 22:03:00 MayfieldMireillePatricia [facility] [id number] 2020-01-24 00:00:00 [facility] [id number] 2020-01-24 00:00:00 [facility] [id number] 2020-01-24 00:00:00 [facility] TRANSFUSE LEUKO-REDUCED RED ManuelChikis smith [facility] BLOOD CELLS [facility] Plan of Care Planned Activity Planned Date [...] Cessation Counseling and Screening (12+)] Future Scheduled 2022-11-[address] [facility] Test 00:00:00 (Season Ended) [code Medical Center = INFLUENZA VACCINE (Season Ended)] Future Scheduled 2022-11-[address] [facility] Test 00:00:00 (Season Ended) [code Medical Center = INFLUENZA VACCINE (Season Ended)] Future Scheduled 2022-03-[address] [facility] Test 00:00:00 (12+) [code = Medical Center DEPRESSION SCREENING (12+)] Future Scheduled 2022-03-[address] [facility] Test 00:00:00 (12+) [code = Medical Center DEPRESSION SCREENING (12+)] Future Scheduled 2022-03-[address] [facility] Test 00:00:00 (12+) [code = Medical Center DEPRESSION SCREENING (12+)] Future Scheduled 2022-03-[address] [facility] Test 00:00:00 (12+) [code = Medical Center DEPRESSION SCREENING (12+)] Future Scheduled 2022-03-[address] [facility] Test 00:00:00 (12+) [code = Medical Center DEPRESSION SCREENING (12+)] Future Scheduled 2022-03-[address] [facility] Test 00:00:00 (12+) [code = Medical Center DEPRESSION SCREENING (12+)] Future Scheduled 2021-11-[address] [facility] Test 00:00:00 (#1) [code = [facility] INFLUENZA VACCINE (#1)] Future Scheduled 2021-11-[address] [facility] Test 00:00:00 (#1) [code = Medical Center INFLUENZA VACCINE (#1)] Future Scheduled 2021-11-[address] [facility] Test 00:00:00 (#1) [code = Medical Center INFLUENZA VACCINE (#1)] Future Scheduled 2021-11-[address] [facility] Test 00:00:00 (#1) [code = [facility] INFLUENZA VACCINE (#1)] Future Scheduled 2021-11-[address] [facility] Test 00:00:00 (#1) [code = [facility] INFLUENZA VACCINE (#1)] Future Scheduled 2021-03-[address] [facility] Test 00:00:00 (12+) [code = [facility] DEPRESSION SCREENING (12+)] Future Scheduled 2004-09-[address] [facility] Test 00:00:00 malignant neoplasm of Medica l Center cervix (procedure) [code = 164684978] Future Scheduled 2002-09-07 DTAP/TDAP/TD VACCINES CH I [...] Type Type Clinicians Facility Department ID 2022-03-09 [facility] [id number] [facility] 00:00:00 [facility]counter [facility] 2022-03-09 Hospital ER [facility] [id number] [facility] 00:00:00 Encounter [facility] 2020-01-24 Inpatient VANESA [facility] [id number] [facility] 04:01:00 Armond [id number] [facility] 2022-06-19 2022-06-[address] [facility], [facility] [id number] 00:00:00 00:00:00 Board [facility] 2022-06-08 2022-06-14 [facility] Amalia George Benny [facility] [id number] 10:46:00 14:05:00 Encounter Hussein [facility]low [facility] Rox, [facility] 2022-06-08 2022-06-14 Inpatient ER ROX [facility] Bar Finish Operator [id number] SLE 10:46:00 14:05:00 MRINALINI Oncology 2022-06-08 2022-06-14 [facility] Amalia George Benny [facility] [id number] 10:46:00 14:05:00 Encounter Hussein [facility] 2022-06-14 2022-06-14 Outpatient EL SLEH SLE [id number] [facility] 07:39:48 07:39:48 2022-06-13 2022-06-13 Outpatient EL SLEH SLEH [id number] [facility] 11:32:48 11:32:48 2022-06-12 2022-06-12 Outpatient EL SLEH SLEH [id number] [facility] 08:50:39 08:50:39 2022-03-18 2022-03-18 Emergency ER Senthil, [facility] [id number] 18:23:00 22:48:00 Boy -[id number] Eron [facility] Hesham Vitale 2022-03-13 2022-03-13 Outside [facility] [id number] 00:00:00 00:00:00 Orders [facility] 2022-03-13 2022-03-13 Outside [facility] [id number] 00:00:00 00:00:00 Orders [facility] 2022-03-09 2022-03-12 Inpatient U [facility] [id number] STLSJX 08:49:00 14:02:00 Gabe -[id number] 2022-03-12 2022-03-12 Orders [facility] [id number] 00:00:00 00:00:00 Only [facility] 2022-03-12 2022-03-12 Orders [facility] [id number] 00:00:00 00:00:00 Only [facility] 2022-03-08 2022-03-09 Emergency ER Wen, [facility] [id number] 22:41:00 09:05:00 [place] -[id number] [facility] Hesham Iam 2022-03-09 2022-03-09 Admitted [id number] [facility] [id number] 08:49:00 08:49:00 Inpatient [id number] [facility] 50 J oseph [id number] [facility] Ctr-CS [facility] [id number] [facility] 2022-03-09 2022-03-09 Telephone [facility] [id number] 00:00:00 00:00:00 [facility] 2022-03-09 2022-03-09 [facility] [id number] 00:00:00 00:00:00 [facility] 2022-02-25 2022-02-27 [facility] Noris Cabrera [facility] [id number] 21:25:00 19:09:00 Encounter Patricia Mooney, Nathaniel In H Medical PhilDana tovar 2022-02-25 2022-02-27 Hospital ER Noris Cabrera [facility] [id number] 21:25:00 19:09:00 Encounter Patricia Mooney Sung In Medical Phil, Dana Botello r 2022-02-25 2022-02-27 Inpatient ER PHIL, DANA [facility] Bar Finish Operator [id number] SLE 21:25:00 19:09:00 Oncology 2022-02-25 2022-02-25 Emergency ER Sharer, [facility] [id number] 10:23:00 19:24:00 [id number] Eron garcia Hesham Vitale 2022-02-15 2022-02-15 Outpatient [id number] PRIV PRIV [id number] [facility] 00:00:00 00:00:00 _J [id number] Medica l 2021-10-11 2021-10-11 Emergency EM Laura, [facility] ER [id number] [facility] 13:35:00 20:55:00 Dallin Sewell [facility] 2021-10-11 2021-10-11 Emergency EM Laura, [facility] [id number] [facility] 13:35:00 20:55:00 [facility] [id number] [facility] Results Test Description Test Time Test Comments Results Result Comments Source Drug Test, General Toxicology, Urine 2022-06-15 20:51:37 Test Item Value Reference Range Interpretation Comme nts Acetone(Quest) (test code None Detected = 3053) Methanol(Quest) (test None Detected code = 3054) Drug Test,Genrl Tox,U see note The fo llowing compounds were (test code = 0344987) detect ed: Cotinine (Nicotine Metabolite) Aquiles taminophen Gabapentin MEGx (Lidocaine Metabolite) Caffeine Methamphetamine Lidocaine Benzoylecgonine (Cocaine Metabolite) Cocaine Diphenh ydramine Midazolam Cyclobenzaprine For a list of compounds and l imits of detection go to:http://educa tion.[employer] .[employer]/faq/NWS769 ISOPROPANOL (test code = None Detected 3923563) ETHANOL (test code = None Detected Volat ile Limit of Detection: 5 2110456) mg/dL This test was developed and its analytical performancechar acteristics have been determined by [employer] [place], [place]. It hasnot been dany ared or approved by the U.S. Food a nd DrugAdministrat ion. This assay has been validated pursuantto the CLIA regulations and is used for clinicalpurpose s. NING (test code = NING) Performing Lab 15 [facility] [employer] [address] [facility] [place], [place] Shawn Drake MD, PhD [facility] [id number] 16:00:20 Test Item Value Reference Range Interpretation Comments CULTURE (BEAKER) (test No growth in 5 days code = 1095) The specimen volume collected for this blood culture was below the optimum (10 mL per bottle or 20 mL total). Use of lower volumes may adversely affect recovery and/or detection times of some organisms.BLOOD [id number] 16:00:20 Test Item Value Reference Range Interpretation Comments CULTURE (BEAKER) (test No growth in 5 days code = 1095) BASIC METABOLIC [id number] 03:45:36 Test Item Value Reference Range Interpretation Comments SODIUM (BEAKER) 135 meq/L 136-145 L (test code = 381) POTASSIUM 4.9 meq/L 3.5-5.1 Specimen slight ly (BEAKER) (test hemolyzed code = 379) CHLORIDE (BEAKER) 104 meq/L 98-107 (test code = 382) CO2 (BEAKER) 23 meq/L 22-29 (test code = 355) BLOOD UREA 7 mg/dL 7-21 NITROGEN (BEAKER) (test code = 354) CREATININE 1.00 mg/dL 0.57-1.25 Specimen slight ly (BEAKER) (test hemolyzed code = 358) GLUCOSE RANDOM 80 mg/dL 70-105 (BEAKER) (test code = 652) CALCIUM (BEAKER) 8.5 mg/dL 8.4-10.2 (test code = 697) EGFR (BEAKER) 74 Interpretatio n of eGFR (test code = mL/min/1.73 values [...] not appl icable for dialysis patien ts Adjunct History Instructor ID - [id number] (HEMOGRAM ONLY)2022-06-14 03:30:35 Test Item Value Reference Range Interpretation Comments WHITE BLOOD CELL COUNT (BEAKER) 11.7 K/ L 3.5-10.5 H (test code = 775) RED BLOOD CELL COUNT (BEAKER) 3.03 M/ L 3.93-5.22 L (test code = 761) HEMOGLOBIN (BEAKER) (test code = 8.9 GM/DL 11.2-15.7 L 410) HEMATOCRIT (BEAKER) (test code = 27.3 % 34.1-44.9 L 411) MEAN CORPUSCULAR VOLUME (BEAKER) 90 fL 79-95 (test code = 753) MEAN CORPUSCULAR HEMOGLOBIN 29.4 pg 25.6-32.2 (BEAKER) (test code = 751) MEAN CORPUSCULAR HEMOGLOBIN CONC 32.6 GM/DL 32.2-35.5 (BEAKER) (test code = 752) RED CELL DISTRIBUTION WIDTH 18.1 % 11.7-14.4 H (BEAKER) (test code = 412) PLATELET COUNT (BEAKER) (test 198 K/CU MM 150-450 code = 756) MEAN PLATELET VOLUME (BEAKER) 10.1 fL 9.4-12.3 (test code = 754) NUCLEATED RED BLOOD CELLS 0 /100 WBC 0-0 (BEAKER) (test code = 413) CBC (HEMOGRAM ONLY)2022-06-13 17:29:42 Test Item Value Reference Range Interpretation Comments WHITE BLOOD CELL COUNT (BEAKER) 9.8 K/ L 3.5-10.5 (test code = 775) RED BLOOD CELL COUNT (BEAKER) 2.81 M/ L 3.93-5.22 L (test code = 761) HEMOGLOBIN (BEAKER) (test code = 8.1 GM/DL 11.2-15.7 L 410) HEMATOCRIT (BEAKER) (test code = 25.1 % 34.1-44.9 L 411) MEAN CORPUSCULAR VOLUME (BEAKER) 89 fL 79-95 (test code = 753) MEAN CORPUSCULAR HEMOGLOBIN 28.8 pg 25.6-32.2 (BEAKER) (test code = 751) MEAN CORPUSCULAR HEMOGLOBIN CONC 32.3 GM/DL 32.2-35.5 (BEAKER) (test code = 752) RED CELL DISTRIBUTION WIDTH 18.1 % 11.7-14.4 H (BEAKER) (test code = 412) PLATELET COUNT (BEAKER) (test 170 K/CU MM 150-450 code = 756) MEAN PLATELET VOLUME (BEAKER) 9.7 fL 9.4-12.3 (test code = 754) NUCLEATED RED BLOOD CELLS 0 /100 WBC 0-0 (BEAKER) (test code = 413) BASIC METABOLIC [id number] 04:27:45 Test Item Value Reference Range Interpretation Comments SODIUM (BEAKER) 135 meq/L 136-145 L (test code = 381) POTASSIUM 4.6 meq/L 3.5-5.1 (BEAKER) (test code = 379) CHLORIDE (BEAKER) 106 meq/L 98-107 (test code = 382) CO2 (BEAKER) 24 meq/L 22-29 (test code = 355) BLOOD UREA 7 mg/dL 7-21 NITROGEN (BEAKER) (test code = 354) CREATININE 0.82 mg/dL 0.57-1.25 (BEAKER) (test code = 358) GLUCOSE RANDOM 84 mg/dL 70-105 (BEAKER) (test code = 652) CALCIUM (BEAKER) 8.2 mg/dL 8.4-10.2 L (test code = 697) EGFR (BEAKER) 94 Interpretatio n of eGFR (test code = mL/min/1.73 values [...] not appl icable for dialysis patien ts Adjunct History Instructor ID - [id number] (HEMOGRAM ONLY)2022-06-13 04:07:18 Test Item Value Reference Range Interpretation Comments WHITE BLOOD CELL COUNT (BEAKER) 10.6 K/ L 3.5-10.5 H (test code = 775) RED BLOOD CELL COUNT (BEAKER) 2.65 M/ L 3.93-5.22 L (test code = 761) HEMOGLOBIN (BEAKER) (test code = 7.6 GM/DL 11.2-15.7 L 410) HEMATOCRIT (BEAKER) (test code = 22.8 % 34.1-44.9 L 411) MEAN CORPUSCULAR VOLUME (BEAKER) 86 fL 79-95 (test code = 753) MEAN CORPUSCULAR HEMOGLOBIN 28.7 pg 25.6-32.2 (BEAKER) (test code = 751) MEAN CORPUSCULAR HEMOGLOBIN CONC 33.3 GM/DL 32.2-35.5 (BEAKER) (test code = 752) RED CELL DISTRIBUTION WIDTH 17.6 % 11.7-14.4 H (BEAKER) (test code = 412) PLATELET COUNT (BEAKER) (test 167 K/CU MM 150-450 code = 756) MEAN PLATELET VOLUME (BEAKER) 9.7 fL 9.4-12.3 (test code = 754) NUCLEATED RED BLOOD CELLS 0 /100 WBC 0-0 (BEAKER) (test code = 413) PROTHROMBIN [id number] 10:03:21 Test Item Value Reference Range Interpretation Comments PROTIME (BEAKER) (test code = 15.4 seconds 11.9-14.2 H 759) INR (BEAKER) (test code = 370) 1.30 <=5.90 RECOMMENDED COUMADIN/WARFARIN INR THERAPY RANGESSTANDARD DOSE: 2.0 - 3.0 Includes: PROPHYLAXIS for venous thrombosis, systemic embolization; TREATMENT for venous thrombosis and/or pulmonary embolus.HIGH RISK: Target INR is 2.5-3.5 for patients with mechanical heart valves.ANG, EMBOLIZATION, EXTENSIVE - [id number] 09:57:00Reason for exam:->Embolization of bleeding cervical massCHI SUT[facility]ENTERName: YULIYA PHILIP : 1985 Sex: FFINAL REPORT Exam: Right internal iliac artery embolization Clinical History: Cervical mass with severe hemorrhage Consent: Benefits and risks were explained to the patient's mother who gave consent to the procedure. Fluoro Time: 13.3 Minutes Total Images: 66 Procedure: Sterilebarrier technique was followed including cap, mask, sterile gown, sterile gloves, sterile sheet, hand hygiene and 2% chlorhexidine for cutaneous antisepsis. The right groin was prepped and draped in usual sterile fashion. 2% lidocaine was used as local anesthetic. Under ultrasound guidance, the right common femoral artery, which was patent, was accessed. A hardcopy of the image was obtained. Under flu oroscopic guidance, a Omni flush catheter was advanced to the pelvic bifurcation follow by pelvic arteriogram which demonstrated active hemorrhage from the right uterine artery. The right internal iliac artery was further selected using microcatheter. Repeat digital subtraction was again performed. There was diffuse narrowing of the proximal right uterine artery which may be associated with eustachian of vasopressors. The anterior branch of the right internal iliac artery was selected. Embolization was performed using Gelfoam slurry. Post embolization pelvic arteriogram demonstrated cessation of flow to the uterine. Left iliac arteriogram was performed which demonstrated no other site of hemorrhage. The arteriotomy was closed using Angio-Seal. Hemostasis was achieved. The patient tolerated the procedure well without any adverse reactions. She left the department in stable condition. Complication: None immediate Impression: 1. Right uterine artery hemorrhage status post embolization. Signed: Ana Mccloud MDReport Verified Date/Time: 06/12/2022 09:57:59 Reading Location: [facility] Diagnostic Imaging Reading Room - [place] [address] CBC W/PLT COUNT & AUTO [id number] 09:56:52 Test Item Value Reference Range Interpretation Comments WHITE BLOOD CELL COUNT 12.1 K/ L 3.5-10.5 H (BEAKER) (test code = 775) RED BLOOD CELL COUNT 2.66 M/ L 3.93-5.22 L (BEAKER) (test code = 761) HEMOGLOBIN (BEAKER) (test 7.7 GM/DL 11.2-15.7 L code = 410) HEMATOCRIT (BEAKER) (test 22.2 % 34.1-44.9 L code = 411) MEAN CORPUSCULAR VOLUME 84 fL 79-95 (BEAKER) (test code = 753) MEAN CORPUSCULAR HEMOGLOBIN 28.9 pg 25.6-32.2 (BEAKER) (test code = 751) MEAN CORPUSCULAR HEMOGLOBIN 34.7 GM/DL 32.2-35.5 CONC (BEAKER) (test code = 752) RED CELL DISTRIBUTION WIDTH 17.4 % 11.7-14.4 H (BEAKER) (test code = 412) PLATELET COUNT (BEAKER) 118 K/CU MM 150-450 L Rece ived plts (test code = 756) MEAN PLATELET VOLUME 9.9 fL 9.4-12.3 (BEAKER) (test code = 754) NUCLEATED RED BLOOD CELLS 0 /100 WBC 0-0 (BEAKER) (test code = 413) NEUTROPHILS RELATIVE PERCENT 76 % (BEAKER) (test code = 429) LYMPHOCYTES RELATIVE PERCENT 14 % (BEAKER) (test code = 430) MONOCYTES RELATIVE PERCENT 5 % (BEAKER) (test code = 431) EOSINOPHILS RELATIVE PERCENT 4 % (BEAKER) (test code = 432) BASOPHILS RELATIVE PERCENT 0 % (BEAKER) (test code = 437) NEUTROPHILS ABSOLUTE COUNT 9.16 K/ L 1.56-6.13 H (BEAKER) (test code = 670) LYMPHOCYTES ABSOLUTE COUNT 1.72 K/ L 1.18-3.74 (BEAKER) (test code = 414) MONOCYTES ABSOLUTE COUNT 0.62 K/ L 0.24-0.36 H (BEAKER) (test code = 415) EOSINOPHILS ABSOLUTE COUNT 0.52 K/ L 0.04-0.36 H (BEAKER) (test code = 416) BASOPHILS ABSOLUTE COUNT 0.01 K/ L 0.01-0.08 (BEAKER) (test code = 417) IMMATURE 0.60 % 0.00-1.00 GRANULOCYTES-RELATIVE PERCENT (BEAKER) (test code = 2801) [id number] 09:25:56 Test Item Value Reference Range Interpretation Comments PHOSPHORUS (BEAKER) (test code = 3.4 mg/dL 2.3-4.7 604) Adjunct History Instructor ID Gonzalez [employer]AY[employer] [id number] 09:25:56 Test Item Value Reference Range Interpretation Comments TOTAL PROTEIN (BEAKER) (test code = 5.5 gm/dL 6.0-8.3 L 770) ALBUMIN (BEAKER) (test code = 1145) 2.8 g/dL 3.5-5.0 L BILIRUBIN TOTAL (BEAKER) (test code 1.0 mg/dL 0.2-1.2 = 377) BILIRUBIN DIRECT (BEAKER) (test 0.6 mg/dL 0.1-0.5 H code = 706) ALKALINE PHOSPHATASE (BEAKER) (test 134 U/L 40-150 code = 346) AST (SGOT) (BEAKER) (test code = 28 U/L 5-34 353) ALT (SGPT) (BEAKER) (test code = 117 U/L 6-55 H 347) Adjunct History Instructor ID Gonzalez TAYLOR WBASIC METABOLIC [id number] 09:25:55 Test Item Value Reference Range Interpretation Comments SODIUM (BEAKER) 136 meq/L 136-145 (test code = 381) POTASSIUM 4.2 meq/L 3.5-5.1 (BEAKER) (test code = 379) CHLORIDE (BEAKER) 105 meq/L 98-107 (test code = 382) CO2 (BEAKER) 24 meq/L 22-29 (test code = 355) BLOOD UREA 7 mg/dL 7-21 NITROGEN (BEAKER) (test code = 354) CREATININE 0.78 mg/dL 0.57-1.25 (BEAKER) (test code = 358) GLUCOSE RANDOM 83 mg/dL 70-105 (BEAKER) (test code = 652) CALCIUM (BEAKER) 8.3 mg/dL 8.4-10.2 L (test code = 697) EGFR (BEAKER) 100 Interpretatio n of eGFR (test code = mL/min/1.73 values [...] not appl icable for dialysis patien ts Adjunct History Instructor ID - CLAUDIA [id number] 09:25:55 Test Item Value Reference Range Interpretation Comments MAGNESIUM (BEAKER) (test code = 2.0 mg/dL 1.6-2.6 627) Adjunct History Instructor ID - CLAUDIA WPrepare Leuko-Red [id number] 23:54:00 Test Item Value Reference Range Interpretation Comments Unit ABO (test code = 0609755) A Neg UNIT NUMBER (test code = [id number] 934-0) Status (test code = 1014013) TX_TIMEINCHART Blood Bank Product (test code PLATELETS = 2263) PRODUCT CODE (test code = R9210X08 933-2) [facility] [id number] 23:54:00 Test Item Value Reference Range Interpretation Comments Unit ABO (test code = 5532768) A Neg UNIT NUMBER (test code = [id number] 934-0) Status (test code = 2776922) [place]_TIMEINCHART Blood Bank Product (test code PLATELETS = 2263) PRODUCT CODE (test code = M1494Y17 933-2) [facility] [id number] 13:05:32 Test Item Value Reference Range Interpretation Comments SODIUM (BEAKER) 133 meq/L 136-145 L (test code = 381) POTASSIUM 4.5 meq/L 3.5-5.1 Specimen modera tely (BEAKER) (test hemolyzed code = 379) CHLORIDE (BEAKER) 103 meq/L 98-107 (test code = 382) CO2 (BEAKER) 25 meq/L 22-29 (test code = 355) BLOOD UREA 8 mg/dL 7-21 NITROGEN (BEAKER) (test code = 354) CREATININE 0.77 mg/dL 0.57-1.25 Specimen modera tely (BEAKER) (test hemolyzed code = 358) GLUCOSE RANDOM 84 mg/dL 70-105 (BEAKER) (test code = 652) CALCIUM (BEAKER) 8.2 mg/dL 8.4-10.2 L (test code = 697) EGFR (BEAKER) 101 Interpretatio n of eGFR (test code = mL/min/1.73 values [...] not appl icable for dialysis patien ts Adjunct History Instructor ID - MARCOCBC (HEMOGRAM ONLY)2022-06-11 12:42:48 Test Item Value Reference Range Interpretation Comments WHITE BLOOD CELL COUNT (BEAKER) 14.2 K/ L 3.5-10.5 H (test code = 775) RED BLOOD CELL COUNT (BEAKER) 2.73 M/ L 3.93-5.22 L (test code = 761) HEMOGLOBIN (BEAKER) (test code = 7.9 GM/DL 11.2-15.7 L 410) HEMATOCRIT (BEAKER) (test code = 22.8 % 34.1-44.9 L 411) MEAN CORPUSCULAR VOLUME (BEAKER) 84 fL 79-95 (test code = 753) MEAN CORPUSCULAR HEMOGLOBIN 28.9 pg 25.6-32.2 (BEAKER) (test code = 751) MEAN CORPUSCULAR HEMOGLOBIN CONC 34.6 GM/DL 32.2-35.5 (BEAKER) (test code = 752) RED CELL DISTRIBUTION WIDTH 16.3 % 11.7-14.4 H (BEAKER) (test code = 412) PLATELET COUNT (BEAKER) (test code 70 K/CU MM 150-450 L = 756) MEAN PLATELET VOLUME (BEAKER) 10.7 fL 9.4-12.3 (test code = 754) NUCLEATED RED BLOOD CELLS (BEAKER) 0 /100 WBC 0-0 (test code = 413) PROTHROMBIN TIME/[id number] 12:39:37 Test Item Value Reference Range Interpretation Comments PROTIME (BEAKER) (test code = 15.6 seconds 11.9-14.2 H 759) INR (BEAKER) (test code = 370) 1.32 <=5.90 RECOMMENDED COUMADIN/WARFARIN INR THERAPY RANGESSTANDARD DOSE: 2.0 - 3.0 Includes: PROPHYLAXIS for venous thrombosis, systemic embolization; TREATMENT for venous thrombosis and/or pulmonary embolus.HIGH RISK: Target INR is 2.5-3.5 for patients with mechanical heart valves.CALCIUM, [id number] 12:30:04 Test Item Value Reference Range Interpretation Comments CALCIUM IONIZED (BEAKER) (test 1.08 mmol/L 1.12-1.27 L code = 698) PH, BLOOD (BEAKER) (test code = 7.44 1810) POC-Glucose [id number] 12:05:07 Test Item Value Reference Range Interpretation Comments POC-Glucose Meter (test 85 mg/dL 70-110 : TE STED AT [facility] code = 1538) [address] [place] [address], [facility] 30: Adjunct History Instructor/Techni skip ID = [id number] for LLUVIA GROVES Lab Interpretation (test Normal code = 78061-0) [facility] [id number] 12:05:07 Test Item Value Reference Range Interpretation Comments POC-Glucose Meter (test 85 mg/dL 70-110 : TE STED AT [facility] code = 1538) [address] [place] [address], [facility] 30: Adjunct History Instructor/Techni skip ID = [id number] for LLUVIA GROVES Lab Interpretation (test Normal code = 71420-2) [facility] CenterPO[facility] [id number] 12:05:07 Test Item Value Reference Range Interpretation Comments POC-GLUCOSE METER 85 mg/dL 70-110 : TESTED A T [facility] 6720 (BEAKER) (test code = JANIE Avitia [facility], 1538) [address]: Adjunct History Instructor/Techni skip ID = [id number] for LLUVIA DANIEL EBV VIRAL [id number] 11:49:33 Test Item Value Reference Range Interpretation Comments EBV VIRAL LOAD - Negative or below See_Comment [Auto mated message] NEGATIVE (BEAKER) the linear range The sy stem which (test code = of the assay generated this 2559) (<500 IU /mL) result transmi tted reference range : <500 - >5,00 0,000 IU/mL. The refe rence range was not u sed to interpret th is result as normal/abnormal . POCT-GLUCOSE [id number] 06:43:06 Test Item Value Reference Range Interpretation Comments POC-GLUCOSE METER 82 mg/dL 70-110 : TESTED A T [facility] 6720 (BEAKER) (test code = [facility] Avitia [facility], 1538) [address]: Adjunct History Instructor/Techni skip ID = [id number] for Griselda Mayorga CALCIUM, [id number] 05:38:13 Test Item Value Reference Range Interpretation Comments CALCIUM IONIZED (BEAKER) (test 1.03 mmol/L 1.12-1.27 L code = 698) PH, BLOOD (BEAKER) (test code = 7.42 1810) CBC (HEMOGRAM ONLY)2022-06-11 05:33:48 Test Item Value Reference Range Interpretation Comments WHITE BLOOD CELL COUNT 14.0 K/ L 3.5-10.5 H (BEAKER) (test code = 775) RED BLOOD CELL COUNT 2.57 M/ L 3.93-5.22 L (BEAKER) (test code = 761) HEMOGLOBIN (BEAKER) 7.5 GM/DL 11.2-15.7 L (test code = 410) HEMATOCRIT (BEAKER) 21.5 % 34.1-44.9 L (test code = 411) MEAN CORPUSCULAR 84 fL 79-95 Discordant results VOLUME (BEAKER) (test compar ed to previous code = 753) results; clinic al correlation req uired MEAN CORPUSCULAR 29.2 pg 25.6-32.2 HEMOGLOBIN (BEAKER) (test code = 751) MEAN CORPUSCULAR 34.9 GM/DL 32.2-35.5 HEMOGLOBIN CONC (BEAKER) (test code = 752) RED CELL DISTRIBUTION 16.3 % 11.7-14.4 H WIDTH (BEAKER) (test code = 412) PLATELET COUNT 57 K/CU MM 150-450 L (BEAKER) (test code = 756) MEAN PLATELET VOLUME 10.6 fL 9.4-12.3 (BEAKER) (test code = 754) NUCLEATED RED BLOOD 0 /100 WBC 0-0 CELLS (BEAKER) (test code = 413) PROTHROMBIN TIME/[id number] 05:28:51 Test Item Value Reference Range Interpretation Comments PROTIME (BEAKER) (test code = 16.1 seconds 11.9-14.2 H 759) INR (BEAKER) (test code = 370) 1.38 <=5.90 RECOMMENDED COUMADIN/WARFARIN INR THERAPY RANGESSTANDARD DOSE: 2.0 - 3.0 Includes: PROPHYLAXIS for venous thrombosis, systemic embolization; TREATMENT for venous thrombosis and/or pulmonary embolus.HIGH RISK: Target INR is 2.5-3.5 for patients with mechanical heart valves.[id number] 03:39:10 Test Item Value Reference Range Interpretation Comments PHOSPHORUS (BEAKER) (test code = 2.8 mg/dL 2.3-4.7 604) Adjunct History Instructor ID - BSHEPATIC FUNCTION [id number] 03:39:09 Test Item Value Reference Range Interpretation Comments TOTAL PROTEIN (BEAKER) (test code = 4.5 gm/dL 6.0-8.3 L 770) ALBUMIN (BEAKER) (test code = 1145) 2.4 g/dL 3.5-5.0 L BILIRUBIN TOTAL (BEAKER) (test code 1.4 mg/dL 0.2-1.2 H = 377) BILIRUBIN DIRECT (BEAKER) (test 0.9 mg/dL 0.1-0.5 H code = 706) ALKALINE PHOSPHATASE (BEAKER) (test 112 U/L 40-150 code = 346) AST (SGOT) (BEAKER) (test code = 28 U/L 5-34 353) ALT (SGPT) (BEAKER) (test code = 116 U/L 6-55 H 347) Adjunct History Instructor ID - [id number] 03:39:09 Test Item Value Reference Range Interpretation Comments MAGNESIUM (BEAKER) (test code = 1.6 mg/dL 1.6-2.6 627) Adjunct History Instructor ID - BSPOCT-GLUCOSE [id number] 00:47:31 Test Item Value Reference Range Interpretation Comments POC-GLUCOSE METER 94 mg/dL 70-110 : TESTED A T [facility] 6720 (BEAKER) (test code = JANIE Avitia [place], 1538) [address]: Adjunct History Instructor/Techni skip ID = [id number] for Pee Valladares Prepare Leuko-Red [id number] 23:54:00 Test Item Value Reference Range Interpretation Comments CROSSMATCH (test code = 2264) COMPATIBLE Unit ABO (test code = A Pos 7486565) UNIT NUMBER (test code = [id number] 934-0) Status (test code = 6607375) [facility] Blood Bank Product (test code RED BLOOD CELLS = 2263) PRODUCT CODE (test code = [id number] 933-2) [facility] Center[facility] [id number] 23:54:00 Test Item Value Reference Range Interpretation Comments CROSSMATCH (test code = 2264) COMPATIBLE Unit ABO (test code = A Pos 6089200) UNIT NUMBER (test code = [id number] 934-0) Status (test code = 1857887) TX_TIMEINCHART Blood Bank Product (test code RED BLOOD CELLS = 2263) PRODUCT CODE (test code = [id number] 933-2) [facility] CenterPROTHROMBIN TIME/[id number] 22:37:14 Test Item Value Reference Range Interpretation Comments PROTIME (BEAKER) (test code = 16.2 seconds 11.9-14.2 H 759) INR (BEAKER) (test code = 370) 1.38 <=5.90 RECOMMENDED COUMADIN/WARFARIN INR THERAPY RANGESSTANDARD DOSE: 2.0 - 3.0 Includes: PROPHYLAXIS for venous thrombosis, systemic embolization; TREATMENT for venous thrombosis and/or pulmonary embolus.HIGH RISK: Target INR is 2.5-3.5 for patients with mechanical heart valves.CBC W/PLT COUNT & AUTO [id number] 22:25:34 Test Item Value Reference Range Interpretation Comments WHITE BLOOD CELL COUNT (BEAKER) 15.7 K/ L 3.5-10.5 H (test code = 775) RED BLOOD CELL COUNT (BEAKER) 2.67 M/ L 3.93-5.22 L (test code = 761) HEMOGLOBIN (BEAKER) (test code = 7.8 GM/DL 11.2-15.7 L 410) HEMATOCRIT (BEAKER) (test code = 21.4 % 34.1-44.9 L 411) MEAN CORPUSCULAR VOLUME (BEAKER) 80 fL 79-95 (test code = 753) MEAN CORPUSCULAR HEMOGLOBIN 29.2 pg 25.6-32.2 (BEAKER) (test code = 751) MEAN CORPUSCULAR HEMOGLOBIN CONC 36.4 GM/DL 32.2-35.5 H (BEAKER) (test code = 752) RED CELL DISTRIBUTION WIDTH 16.1 % 11.7-14.4 H (BEAKER) (test code = 412) PLATELET COUNT (BEAKER) (test code 62 K/CU MM 150-450 L = 756) MEAN PLATELET VOLUME (BEAKER) 10.9 fL 9.4-12.3 (test code = 754) NUCLEATED RED BLOOD CELLS (BEAKER) 0 /100 WBC 0-0 (test code = 413) NEUTROPHILS RELATIVE PERCENT 82 % (BEAKER) (test code = 429) LYMPHOCYTES RELATIVE PERCENT 10 % (BEAKER) (test code = 430) MONOCYTES RELATIVE PERCENT 4 % (BEAKER) (test code = 431) EOSINOPHILS RELATIVE PERCENT 3 % (BEAKER) (test code = 432) BASOPHILS RELATIVE PERCENT 0 % (BEAKER) (test code = 437) NEUTROPHILS ABSOLUTE COUNT 12.86 K/ L 1.56-6.13 H (BEAKER) (test code = 670) LYMPHOCYTES ABSOLUTE COUNT 1.61 K/ L 1.18-3.74 (BEAKER) (test code = 414) MONOCYTES ABSOLUTE COUNT (BEAKER) 0.66 K/ L 0.24-0.36 H (test code = 415) EOSINOPHILS ABSOLUTE COUNT 0.51 K/ L 0.04-0.36 H (BEAKER) (test code = 416) BASOPHILS ABSOLUTE COUNT (BEAKER) 0.01 K/ L 0.01-0.08 (test code = 417) IMMATURE GRANULOCYTES-RELATIVE 0.60 % 0.00-1.00 PERCENT (BEAKER) (test code = 2801) CALCIUM, [id number] 22:25:05 Test Item Value Reference Range Interpretation Comments CALCIUM IONIZED (BEAKER) (test 1.07 mmol/L 1.12-1.27 L code = 698) PH, BLOOD (BEAKER) (test code = 7.48 1810) [id number] 17:57:12 Test Item Value Reference Range Interpretation Comments FIBRINOGEN LEVEL (BEAKER) (test 313 mg/dl 225-434 code = 658) PROTHROMBIN TIME/[id number] 17:44:31 Test Item Value Reference Range Interpretation Comments PROTIME (BEAKER) (test code = 17.4 seconds 11.9-14.2 H 759) INR (BEAKER) (test code = 370) 1.52 <=5.90 RECOMMENDED COUMADIN/WARFARIN INR THERAPY RANGESSTANDARD DOSE: 2.0 - 3.0 Includes: PROPHYLAXIS for venous thrombosis, systemic embolization; TREATMENT for venous thrombosis and/or pulmonary embolus.HIGH RISK: Target INR is 2.5-3.5 for patients with mechanical heart valves.CBC (HEMOGRAM ONLY)2022-06-10 17:38:49 Test Item Value Reference Range Interpretation Comments WHITE BLOOD CELL COUNT (BEAKER) 15.7 K/ L 3.5-10.5 H (test code = 775) RED BLOOD CELL COUNT (BEAKER) 2.64 M/ L 3.93-5.22 L (test code = 761) HEMOGLOBIN (BEAKER) (test code = 7.6 GM/DL 11.2-15.7 L 410) HEMATOCRIT (BEAKER) (test code = 21.8 % 34.1-44.9 L 411) MEAN CORPUSCULAR VOLUME (BEAKER) 83 fL 79-95 (test code = 753) MEAN CORPUSCULAR HEMOGLOBIN 28.8 pg 25.6-32.2 (BEAKER) (test code = 751) MEAN CORPUSCULAR HEMOGLOBIN CONC 34.9 GM/DL 32.2-35.5 (BEAKER) (test code = 752) RED CELL DISTRIBUTION WIDTH 16.2 % 11.7-14.4 H (BEAKER) (test code = 412) PLATELET COUNT (BEAKER) (test code 62 K/CU MM 150-450 L = 756) MEAN PLATELET VOLUME (BEAKER) 11.2 fL 9.4-12.3 (test code = 754) NUCLEATED RED BLOOD CELLS (BEAKER) 0 /100 WBC 0-0 (test code = 413) POCT-GLUCOSE [id number] 17:30:09 Test Item Value Reference Range Interpretation Comments POC-GLUCOSE METER 109 mg/dL 70-110 : TESTED A T [facility] 6720 (BEAKER) (test code = JANIE [place], 1538) [address]: Adjunct History Instructor/Techni skip ID = [id number] for Naina Austin CALCIUM, [id number] 17:28:59 Test Item Value Reference Range Interpretation Comments CALCIUM IONIZED (BEAKER) (test 1.07 mmol/L 1.12-1.27 L code = 698) PH, BLOOD (BEAKER) (test code = 7.48 1810) ANTI-NUCLEAR ANTIBODY (HAYDEN)2022-06-10 14:58:10 Test Item Value Reference Range Interpretation Comments ANTI-NUCLEAR ANTIBODY (HAYDEN) (BEAKER) Negative Negative (test code = 418) Test performed by IFA method.Test performed by IFA method.HEPATITIS C PCR, [id number] 14:01:32 Test Item Value Reference Range Interpretation Comments HCV RESULT COMPONENT HCV RNA not detected HCV RNA not detected (BEAKER) (test code = 2699) HEPATITIS B PCR, [id number] 13:33:52 Test Item Value Reference Range Interpretation Comments HBV RESULT COMPONENT HBV DNA not detected HBV DNA not detected (BEAKER) (test code = 2701) [id number] 12:37:58 Test Item Value Reference Range Interpretation Comments FIBRINOGEN LEVEL (BEAKER) (test 280 mg/dl 225-434 code = 658) PROTHROMBIN TIME/[id number] 12:37:40 Test Item Value Reference Range Interpretation Comments PROTIME (BEAKER) (test code = 17.8 seconds 11.9-14.2 H 759) INR (BEAKER) (test code = 370) 1.57 <=5.90 RECOMMENDED COUMADIN/WARFARIN INR THERAPY RANGESSTANDARD DOSE: 2.0 - 3.0 Includes: PROPHYLAXIS for venous thrombosis, systemic embolization; TREATMENT for venous thrombosis and/or pulmonary embolus.HIGH RISK: Target INR is 2.5-3.5 for patients with mechanical heart valves.CMV PCR, [id number] 12:25:04 Test Item Value Reference Range Interpretation Comments CMV VIRAL LOAD - Negative or below See_Comment [Auto mated message] NEGATIVE (BEAKER) the linear range The sy stem which (test code = of the assay generated this 2558) (<300 IU/mL) result transmit erna reference range : <300 - >3,00 0,000 IU/mL. The refe rence range was not u sed to interpret th is result as normal/abnormal . CBC (HEMOGRAM ONLY)2022-06-10 12:13:52 Test Item Value Reference Range Interpretation Comments WHITE BLOOD CELL COUNT (BEAKER) 15.3 K/ L 3.5-10.5 H (test code = 775) RED BLOOD CELL COUNT (BEAKER) 2.83 M/ L 3.93-5.22 L (test code = 761) HEMOGLOBIN (BEAKER) (test code = 8.2 GM/DL 11.2-15.7 L 410) HEMATOCRIT (BEAKER) (test code = 23.0 % 34.1-44.9 L 411) MEAN CORPUSCULAR VOLUME (BEAKER) 81 fL 79-95 (test code = 753) MEAN CORPUSCULAR HEMOGLOBIN 29.0 pg 25.6-32.2 (BEAKER) (test code = 751) MEAN CORPUSCULAR HEMOGLOBIN CONC 35.7 GM/DL 32.2-35.5 H (BEAKER) (test code = 752) RED CELL DISTRIBUTION WIDTH 15.9 % 11.7-14.4 H (BEAKER) (test code = 412) PLATELET COUNT (BEAKER) (test code 47 K/CU MM 150-450 L = 756) MEAN PLATELET VOLUME (BEAKER) 10.1 fL 9.4-12.3 (test code = 754) NUCLEATED RED BLOOD CELLS (BEAKER) 0 /100 WBC 0-0 (test code = 413) CALCIUM, [id number] 12:09:13 Test Item Value Reference Range Interpretation Comments CALCIUM IONIZED (BEAKER) (test 1.05 mmol/L 1.12-1.27 L code = 698) PH, BLOOD (BEAKER) (test code = 7.46 1810) POCT-GLUCOSE [id number] 11:23:12 Test Item Value Reference Range Interpretation Comments POC-GLUCOSE METER 92 mg/dL 70-110 : TESTED A T [facility] 6720 (BEAKER) (test code = JANIE Avitia [place], 1538) [address]: Adjunct History Instructor/Techni skip ID = [id number] for ADRIEN C (V), ANNMARIE EBV ANTIBODY, [id number] 10:34:21 Test Item Value Reference Range Interpretation Comments ANDREW SUAREZ VIRAL CAPSID Negative Negative, Equivocal ANTIGEN IGM (BEAKER) (test code = 3418) Andrew Suarez Viral Capsid Antigen IgM Result Interpretation: </= 0.8 Al Negative 0.9-1.0 Al Equivocal >/= 1.1 Al PositiveVANCOMYCIN LEVEL, TROUGH 2022-06-10 09:41:44 Test Item Value Reference Range Interpretation Comments VANCOMYCIN TROUGH (BEAKER) (test 16.1 ug/mL 10.0-20.0 code = 522) Adjunct History Instructor ID - [id number] 06:41:29 Test Item Value Reference Range Interpretation Comments FIBRINOGEN LEVEL (BEAKER) (test 260 mg/dl 225-434 code = 658) PROTHROMBIN TIME/[id number] 06:41:06 Test Item Value Reference Range Interpretation Comments PROTIME (BEAKER) (test code = 16.6 seconds 11.9-14.2 H 759) INR (BEAKER) (test code = 370) 1.43 <=5.90 RECOMMENDED COUMADIN/WARFARIN INR THERAPY RANGESSTANDARD DOSE: 2.0 - 3.0 Includes: PROPHYLAXIS for venous thrombosis, systemic embolization; TREATMENT for venous thrombosis and/or pulmonary embolus.HIGH RISK: Target INR is 2.5-3.5 for patients with mechanical heart valves.CBC (HEMOGRAM ONLY)2022-06-10 06:10:57 Test Item Value Reference Range Interpretation Comments WHITE BLOOD CELL COUNT (BEAKER) 16.3 K/ L 3.5-10.5 H (test code = 775) RED BLOOD CELL COUNT (BEAKER) 2.91 M/ L 3.93-5.22 L (test code = 761) HEMOGLOBIN (BEAKER) (test code = 8.4 GM/DL 11.2-15.7 L 410) HEMATOCRIT (BEAKER) (test code = 23.3 % 34.1-44.9 L 411) MEAN CORPUSCULAR VOLUME (BEAKER) 80 fL 79-95 (test code = 753) MEAN CORPUSCULAR HEMOGLOBIN 28.9 pg 25.6-32.2 (BEAKER) (test code = 751) MEAN CORPUSCULAR HEMOGLOBIN CONC 36.1 GM/DL 32.2-35.5 H (BEAKER) (test code = 752) RED CELL DISTRIBUTION WIDTH 15.9 % 11.7-14.4 H (BEAKER) (test code = 412) PLATELET COUNT (BEAKER) (test code 49 K/CU MM 150-450 L = 756) MEAN PLATELET VOLUME (BEAKER) 10.0 fL 9.4-12.3 (test code = 754) NUCLEATED RED BLOOD CELLS (BEAKER) 0 /100 WBC 0-0 (test code = 413) CALCIUM, [id number] 06:04:52 Test Item Value Reference Range Interpretation Comments CALCIUM IONIZED (BEAKER) (test 1.12 mmol/L 1.12-1.27 code = 698) PH, BLOOD (BEAKER) (test code = 7.48 1810) POCT-GLUCOSE [id number] 05:43:21 Test Item Value Reference Range Interpretation Comments POC-GLUCOSE METER 91 mg/dL 70-110 : TESTED A T [facility] 6720 (BEAKER) (test code = [place], 1538) [address]: Adjunct History Instructor/Techni skip ID = [id number] for MSIB I, MNCEDISI BASIC METABOLIC [id number] 03:27:46 Test Item Value Reference Range Interpretation Comments SODIUM (BEAKER) 134 meq/L 136-145 L (test code = 381) POTASSIUM 3.1 meq/L 3.5-5.1 L (BEAKER) (test code = 379) CHLORIDE (BEAKER) 107 meq/L 98-107 (test code = 382) CO2 (BEAKER) 19 meq/L 22-29 L (test code = 355) BLOOD UREA 13 mg/dL 7-21 NITROGEN (BEAKER) (test code = 354) CREATININE 0.71 mg/dL 0.57-1.25 (BEAKER) (test code = 358) GLUCOSE RANDOM 99 mg/dL 70-105 (BEAKER) (test code = 652) CALCIUM (BEAKER) 7.8 mg/dL 8.4-10.2 L (test code = 697) EGFR (BEAKER) 112 Interpretatio n of eGFR (test code = mL/min/1.73 values Stage De scription 1092) sq m Result G1 Jojo l or high >=90 G2 Mildly decreased 60-89 G3a Mildl y to moderately 45-5 9 G3b Moderately to s everely 30-44 G4 Severl y decreased 15-29 G5 Kidne y failure <15Reported eGF R is based on the CKD-EPI 2020 equation that d oes not use a race coefficientEsti mated GFR is not as accur ate as Creatinine [place] pura in predicting glom erular filtration rate . Estimated GFR is not appl icable for dialysis patien ts Adjunct History Instructor ID - Iam slightly ictericHEPATIC FUNCTION [id number] 03:26:54 Test Item Value Reference Range Interpretation Comments TOTAL PROTEIN (BEAKER) (test code = 4.4 gm/dL 6.0-8.3 L 770) ALBUMIN (BEAKER) (test code = 1145) 2.5 g/dL 3.5-5.0 L BILIRUBIN TOTAL (BEAKER) (test code 2.6 mg/dL 0.2-1.2 H = 377) BILIRUBIN DIRECT (BEAKER) (test 1.6 mg/dL 0.1-0.5 H code = 706) ALKALINE PHOSPHATASE (BEAKER) (test 112 U/L 40-150 code = 346) AST (SGOT) (BEAKER) (test code = 50 U/L 5-34 H 353) ALT (SGPT) (BEAKER) (test code = 153 U/L 6-55 H 347) Adjunct History Instructor ID - SUOSpecimen slightly [id number] 03:26:53 Test Item Value Reference Range Interpretation Comments MAGNESIUM (BEAKER) (test code = 1.6 mg/dL 1.6-2.6 627) Adjunct History Instructor ID - [id number] 03:26:53 Test Item Value Reference Range Interpretation Comments PHOSPHORUS (BEAKER) (test code = 2.0 mg/dL 2.3-4.7 L 604) Adjunct History Instructor ID - MARCOCALCIUM, [id number] 01:25:13 Test Item Value Reference Range Interpretation Comments CALCIUM IONIZED (BEAKER) (test 1.04 mmol/L 1.12-1.27 L code = 698) PH, BLOOD (BEAKER) (test code = 7.48 1810) [id number] 01:24:42 Test Item Value Reference Range Interpretation Comments FIBRINOGEN LEVEL (BEAKER) (test 257 mg/dl 225-434 code = 658) PROTHROMBIN [id number] 01:23:57 Test Item Value Reference Range Interpretation Comments PROTIME (BEAKER) (test code = 16.5 seconds 11.9-14.2 H 759) INR (BEAKER) (test code = 370) 1.42 <=5.90 RECOMMENDED COUMADIN/WARFARIN INR THERAPY RANGESSTANDARD DOSE: 2.0 - 3.0 Includes: PROPHYLAXIS for venous thrombosis, systemic embolization; TREATMENT for venous thrombosis and/or pulmonary embolus.HIGH RISK: Target INR is 2.5-3.5 for patients with mechanical heart valves.CBC (HEMOGRAM ONLY)2022-06-10 01:17:14 Test Item Value Reference Range Interpretation Comments WHITE BLOOD CELL COUNT 17.4 K/ L 3.5-10.5 H (BEAKER) (test code = 775) RED BLOOD CELL COUNT 3.19 M/ L 3.93-5.22 L (BEAKER) (test code = 761) HEMOGLOBIN (BEAKER) 9.3 GM/DL 11.2-15.7 L (test code = 410) HEMATOCRIT (BEAKER) 25.5 % 34.1-44.9 L (test code = 411) MEAN CORPUSCULAR VOLUME 80 fL 79-95 (BEAKER) (test code = 753) MEAN CORPUSCULAR 29.2 pg 25.6-32.2 HEMOGLOBIN (BEAKER) (test code = 751) MEAN CORPUSCULAR 36.5 GM/DL 32.2-35.5 H HEMOGLOBIN CONC (BEAKER) (test code = 752) RED CELL DISTRIBUTION 15.7 % 11.7-14.4 H WIDTH (BEAKER) (test code = 412) PLATELET COUNT (BEAKER) 74 K/CU MM 150-450 L Caroline ent received (test code = 756) platelets MEAN PLATELET VOLUME 9.6 fL 9.4-12.3 (BEAKER) (test code = 754) NUCLEATED RED BLOOD 0 /100 WBC 0-0 CELLS (BEAKER) (test code = 413) Prepare [id number] 23:54:00 Test Item Value Reference Range Interpretation Comments Unit ABO (test code = A Pos 5990803) UNIT NUMBER (test code = [id number] 934-0) Status (test code = 7765207) TX_TIMEINCHART Blood Bank Product (test code CRYOPRECIPITATE = 2263) PRODUCT CODE (test code = S5313R23 933-2) [id number] 23:54:00 Test Item Value Reference Range Interpretation Comments Unit ABO (test code = 6532110) A Neg UNIT NUMBER (test code = [id number] 934-0) Status (test code = 0598347) TX_TIMEINCHART Blood Bank Product (test code FFP = 2263) PRODUCT CODE (test code = E8306O35 933-2) [facility] [id number] 23:54:00 Test Item Value Reference Range Interpretation Comments Unit ABO (test code = A Pos 0916082) UNIT NUMBER (test code = [id number] 934-0) Status (test code = 7014715) TX_TIMEINCHART Blood Bank Product (test code CRYOPRECIPITATE = 2263) PRODUCT CODE (test code = [id number] 933-2) [facility] Center[facility] [id number] 23:54:00 Test Item Value Reference Range Interpretation Comments Unit ABO (test code = 4877436) A Neg UNIT NUMBER (test code = [id number] 934-0) Status (test code = 2789384) TX_TIMEINCHART Blood Bank Product (test code FFP = 2263) PRODUCT CODE (test code = [id number] 933-2) [facility] CenterPOCT[facility]GLUCOSE [id number] 23:42:59 Test Item Value Reference Range Interpretation Comments POC-GLUCOSE METER 91 mg/dL 70-110 : TESTED A T [facility] 6720 (BEAKER) (test code = JANIE RUBALCAVA PR, 1538) 1940[address]: Adjunct History Instructor/Techni skip ID = [id number] for MSIB [facility] Dias CALCIUM, [id number] 18:10:25 Test Item Value Reference Range Interpretation Comments CALCIUM IONIZED (BEAKER) (test 1.11 mmol/L 1.12-1.27 L code = 698) PH, BLOOD (BEAKER) (test code = 7.48 1810) [id number] 17:48:32 Test Item Value Reference Range Interpretation Comments FIBRINOGEN LEVEL (BEAKER) (test 179 mg/dl 225-434 L code = 658) PROTHROMBIN [id number] 17:48:12 Test Item Value Reference Range Interpretation Comments PROTIME (BEAKER) (test code = 17.2 seconds 11.9-14.2 H 759) INR (BEAKER) (test code = 370) 1.49 <=5.90 RECOMMENDED COUMADIN/WARFARIN INR THERAPY RANGESSTANDARD DOSE: 2.0 - 3.0 Includes: PROPHYLAXIS for venous thrombosis, systemic embolization; TREATMENT for venous thrombosis and/or pulmonary embolus.HIGH RISK: Target INR is 2.5-3.5 for patients with mechanical heart valves.CBC (HEMOGRAM ONLY)2022-06-09 17:39:30 Test Item Value Reference Range Interpretation Comments WHITE BLOOD CELL COUNT (BEAKER) 13.7 K/ L 3.5-10.5 H (test code = 775) RED BLOOD CELL COUNT (BEAKER) 3.01 M/ L 3.93-5.22 L (test code = 761) HEMOGLOBIN (BEAKER) (test code = 8.6 GM/DL 11.2-15.7 L 410) HEMATOCRIT (BEAKER) (test code = 24.0 % 34.1-44.9 L 411) MEAN CORPUSCULAR VOLUME (BEAKER) 80 fL 79-95 (test code = 753) MEAN CORPUSCULAR HEMOGLOBIN 28.6 pg 25.6-32.2 (BEAKER) (test code = 751) MEAN CORPUSCULAR HEMOGLOBIN CONC 35.8 GM/DL 32.2-35.5 H (BEAKER) (test code = 752) RED CELL DISTRIBUTION WIDTH 15.5 % 11.7-14.4 H (BEAKER) (test code = 412) PLATELET COUNT (BEAKER) (test code 42 K/CU MM 150-450 L = 756) MEAN PLATELET VOLUME (BEAKER) 11.3 fL 9.4-12.3 (test code = 754) NUCLEATED RED BLOOD CELLS (BEAKER) 0 /100 WBC 0-0 (test code = 413) POCT-GLUCOSE [id number] 17:29:37 Test Item Value Reference Range Interpretation Comments POC-GLUCOSE METER 95 mg/dL 70-110 : TESTED A T [facility] 6720 (BEAKER) (test code = [facility] Avitia [facility], 1538) [address]: Adjunct History Instructor/Techni skip ID = [id number] for Joyce Hilario [id number] 13:31:18 Test Item Value Reference Range Interpretation Comments PROCALCITONIN (BEAKER) (test code 18.38 ng/mL <0.05 = 3036) SEPSIS RISK (ng/mL)Low: 0.05-0.50Intermediate: 0.51-2.00High: >=2.01 [id number] 12:31:16 Test Item Value Reference Range Interpretation Comments FIBRINOGEN LEVEL (BEAKER) (test 178 mg/dl 225-434 L code = 658) POCT-GLUCOSE [id number] 12:29:44 Test Item Value Reference Range Interpretation Comments POC-GLUCOSE METER 116 mg/dL 70-110 H : TESTED A T [facility] 6720 (BEAKER) (test code [facility], = 1538) [address]: Adjunct History Instructor/Techni skip ID = [id number] for Amanda Giles h CALCIUM, [id number] 12:27:55 Test Item Value Reference Range Interpretation Comments CALCIUM IONIZED (BEAKER) (test 1.10 mmol/L 1.12-1.27 L code = 698) PH, BLOOD (BEAKER) (test code = 7.48 1810) PROTHROMBIN [id number] 12:25:56 Test Item Value Reference Range Interpretation Comments PROTIME (BEAKER) (test code = 17.8 seconds 11.9-14.2 H 759) INR (BEAKER) (test code = 370) 1.57 <=5.90 RECOMMENDED COUMADIN/WARFARIN INR THERAPY RANGESSTANDARD DOSE: 2.0 - 3.0 Includes: PROPHYLAXIS for venous thrombosis, systemic embolization; TREATMENT for venous thrombosis and/or pulmonary embolus.HIGH RISK: Target INR is 2.5-3.5 for patients with mechanical heart valves.CBC (HEMOGRAM ONLY)2022-06-09 12:22:37 Test Item Value Reference Range Interpretation Comments WHITE BLOOD CELL COUNT (BEAKER) 12.8 K/ L 3.5-10.5 H (test code = 775) RED BLOOD CELL COUNT (BEAKER) 3.12 M/ L 3.93-5.22 L (test code = 761) HEMOGLOBIN (BEAKER) (test code = 9.0 GM/DL 11.2-15.7 L 410) HEMATOCRIT (BEAKER) (test code = 25.3 % 34.1-44.9 L 411) MEAN CORPUSCULAR VOLUME (BEAKER) 81 fL 79-95 (test code = 753) MEAN CORPUSCULAR HEMOGLOBIN 28.8 pg 25.6-32.2 (BEAKER) (test code = 751) MEAN CORPUSCULAR HEMOGLOBIN CONC 35.6 GM/DL 32.2-35.5 H (BEAKER) (test code = 752) RED CELL DISTRIBUTION WIDTH 15.3 % 11.7-14.4 H (BEAKER) (test code = 412) PLATELET COUNT (BEAKER) (test code 58 K/CU MM 150-450 L = 756) MEAN PLATELET VOLUME (BEAKER) 11.1 fL 9.4-12.3 (test code = 754) NUCLEATED RED BLOOD CELLS (BEAKER) 0 /100 WBC 0-0 (test code = 413) BASIC METABOLIC [id number] 09:00:33 Test Item Value Reference Range Interpretation Comments SODIUM (BEAKER) 138 meq/L 136-145 (test code = 381) POTASSIUM 3.5 meq/L 3.5-5.1 (BEAKER) (test code = 379) CHLORIDE (BEAKER) 111 meq/L 98-107 H (test code = 382) CO2 (BEAKER) 20 meq/L 22-29 L (test code = 355) BLOOD UREA 22 mg/dL 7-21 H NITROGEN (BEAKER) (test code = 354) CREATININE 0.68 mg/dL 0.57-1.25 (BEAKER) (test code = 358) GLUCOSE RANDOM 120 mg/dL 70-105 H (BEAKER) (test code = 652) CALCIUM (BEAKER) 7.8 mg/dL 8.4-10.2 L (test code = 697) EGFR (BEAKER) 114 Interpretatio n of eGFR (test code = mL/min/1.73 values [...] not appl icable for dialysis patien ts Adjunct History Instructor ID - Iam slightly [id number] 08:56:11 Test Item Value Reference Range Interpretation Comments MAGNESIUM (BEAKER) (test code = 2.0 mg/dL 1.6-2.6 627) Adjunct History Instructor ID - SUOLactic Acid, [id number] 08:52:09 Test Item Value Reference Range Interpretation Comments Lactate, Art (test code 0.9 mmol/L 0.5-2.2 = 2874) NING (test code = NING) Adjunct History Instructor ID - Iam slightly icteric Lab Interpretation Normal (test code = 49874-1) [facility] CenterLactic Acid, [id number] 08:52:09 Test Item Value Reference Range Interpretation Comments Lactate, Art (test code 0.9 mmol/L 0.5-2.2 = 2874) NING (test code = NING) Adjunct History Instructor ID - Iam slightly icteric Lab Interpretation Normal (test code = 19025-0) [facility] CenterLACTIC ACID, [id number] 08:52:09 Test Item Value Reference Range Interpretation Comments LACTATE BLOOD ARTERIAL (2) 0.9 mmol/L 0.5-2.2 (BEAKER) (test code = 2874) Adjunct History Instructor ID - Iam narvaez [id number] 08:37:49 Test Item Value Reference Range Interpretation Comments FIBRINOGEN LEVEL (BEAKER) (test 174 mg/dl 225-434 L code = 658) PROTHROMBIN TIME/[id number] 08:37:17 Test Item Value Reference Range Interpretation Comments PROTIME (BEAKER) (test code = 17.8 seconds 11.9-14.2 H 759) INR (BEAKER) (test code = 370) 1.57 <=5.90 RECOMMENDED COUMADIN/WARFARIN INR THERAPY RANGESSTANDARD DOSE: 2.0 - 3.0 Includes: PROPHYLAXIS for venous thrombosis, systemic embolization; TREATMENT for venous thrombosis and/or pulmonary embolus.HIGH RISK: Target INR is 2.5-3.5 for patients with mechanical heart valves.CBC (HEMOGRAM ONLY)2022-06-09 08:28:15 Test Item Value Reference Range Interpretation Comments WHITE BLOOD CELL COUNT (BEAKER) 10.0 K/ L 3.5-10.5 (test code = 775) RED BLOOD CELL COUNT (BEAKER) 3.20 M/ L 3.93-5.22 L (test code = 761) HEMOGLOBIN (BEAKER) (test code = 9.3 GM/DL 11.2-15.7 L 410) HEMATOCRIT (BEAKER) (test code = 25.4 % 34.1-44.9 L 411) MEAN CORPUSCULAR VOLUME (BEAKER) 79 fL 79-95 (test code = 753) MEAN CORPUSCULAR HEMOGLOBIN 29.1 pg 25.6-32.2 (BEAKER) (test code = 751) MEAN CORPUSCULAR HEMOGLOBIN CONC 36.6 GM/DL 32.2-35.5 H (BEAKER) (test code = 752) RED CELL DISTRIBUTION WIDTH 15.0 % 11.7-14.4 H (BEAKER) (test code = 412) PLATELET COUNT (BEAKER) (test code 75 K/CU MM 150-450 L = 756) MEAN PLATELET VOLUME (BEAKER) 10.1 fL 9.4-12.3 (test code = 754) NUCLEATED RED BLOOD CELLS (BEAKER) 1 /100 WBC 0-0 H (test code = 413) Blood gas, [id number] 08:26:39 Test Item Value Reference Range Interpretation Comments pH, Arterial (test code 7.51 7.35-7.45 H = 2744-1) pCO2, Arterial (test 27 See_Comment L [Autom ated code = 2018-10) message] The system which generated this result transmitted reference range : 35 - 45 mm Hg. The reference range was not used to interpret this result as normal/abnormal . pO2, Arterial (test 165 See_Comment H [Automa erna code = 2703-7) message] The system which generated this result transmitted reference range : 80 - 90 mm Hg. The reference range was not used to interpret this result as normal/abnormal . O2 Sat, Arterial (test 99.3 % 96.0-97.0 H code = 2708-6) HCO3, Arterial (test 21 mmol/L 21-29 code = 1960-4) Base Excess, Arterial -1.3 mmol/L -2.0-3.0 (test code = 1925-7) Patient Temperature 36.5 (test code = 8310-5) FIO2 (test code = 1819) 21 Lab Interpretation Abnormal (test code = 09880-1) [facility] CenterBlood gas, [id number] 08:26:39 Test Item Value Reference Range Interpretation Comments pH, Arterial (test code 7.51 7.35-7.45 H = 2744-1) pCO2, Arterial (test 27 See_Comment L [Autom ated code = 2018-10) message] The system which generated this result transmitted reference range : 35 - 45 mm Hg. The reference range was not used to interpret this result as normal/abnormal . pO2, Arterial (test 165 See_Comment H [Automa erna code = 2703-7) message] The system which generated this result transmitted reference range : 80 - 90 mm Hg. The reference range was not used to interpret this result as normal/abnormal . O2 Sat, Arterial (test 99.3 % 96.0-97.0 H code = 2708-6) HCO3, Arterial (test 21 mmol/L 21-29 code = 1960-4) Base Excess, Arterial -1.3 mmol/L -2.0-3.0 (test code = 1925-7) Patient Temperature 36.5 (test code = 8310-5) FIO2 (test code = 1819) 21 Lab Interpretation Abnormal (test code = 95451-1) [facility] CenterBLOOD GAS, [id number] 08:26:39 Test Item Value Reference Range Interpretation Comments PH ARTERIAL (BEAKER) (test code = 7.51 7.35-7.45 H 383) PCO2 ARTERIAL (BEAKER) (test code 27 mm Hg 35-45 L = 384) PO2 ARTERIAL (BEAKER) (test code 165 mm Hg 80-90 H = 385) O2 SATURATION ARTERIAL (BEAKER) 99.3 % 96.0-97.0 H (test code = 386) HCO3 ARTERIAL (BEAKER) (test code 21 mmol/L 21-29 = 388) BASE EXCESS ARTERIAL (BEAKER) -1.3 mmol/L -2.0-3.0 (test code = 387) PATIENT TEMPERATURE (BEAKER) 36.5 (test code = 1818) FIO2 (BEAKER) (test code = 1819) 21.0 CALCIUM, [id number] 08:25:08 Test Item Value Reference Range Interpretation Comments CALCIUM IONIZED (BEAKER) (test 1.13 mmol/L 1.12-1.27 code = 698) PH, BLOOD (BEAKER) (test code = 7.50 1810) RAD, CHEST, 1 VIEW, NON [id number] 07:18:00Reason for exam:->Retracted R IJ CVC. Please, re-evaluate placementShould this be performed at the bedside?->YesKA[facility]UL[facility] PHILIP : 1985 Sex: FFINAL REPORT RAD, CHEST, 1 VIEW, NON DEPT INDICATION: Retracted R IJ CVC. Please, re-evaluate placement COMPARISON: Prior day's exam FINDINGS: Portable frontal view of the chest. IMPRESSION: Support Lines: Right-sided central catheter tip overlies the SVC. Left-sided central catheter tip overlies the atriocaval junction. Lungs and pleura: Lungs are clear. No significant pneumothorax. Heart and mediastinum: Stable contours. Stable surgical changes. Additional findings: None. Signed: Alejandra Schofield MDReport Verified Date/Time: 06/09/2022 07:18:03 Urinalysis w/Microscopic + Reflex to [id number] 06:11:15 Test Item Value Reference Range Interpretation Comments Color, UA (test code Yellow = 5778-6) Clarity, UA (test Clear code = 5767-9) Specific [place], UA 1.020 1.001-1.035 (test code = 5811-5) pH, UA (test code = 6.5 5.0-8.0 5803-2) Protein, UA (test Negative negative code = 08129-1) Glucose, UA (test Negative Negative code = 365) Ketones, UA (test Negative negative code = 2514-8) Bilirubin, UA (test Negative Negative code = 99329-3) Blood, UA (test code Small Negative A = 00059-5) Nitrite, UA (test Negative Negative code = 5802-4) Leukocytes, UA (test Negative Negative code = 5799-2) Urobilinogen, UA 2.0 (test code = 63368-3) RBC, UA (test code = 4 See_Comment [Autom ated 99224-0) message] The system which generated this result transmit erna reference range : /HPF. The reference range was not used to interpret this result as normal/abnormal . WBC, UA (test code = 1 See_Comment [Autom ated 5821-4) message] The system which generated this result transmit erna reference range : /HPF. The reference range was not used to interpret this result as normal/abnormal . Bacteria, UA (test Rare code = 20428-1) Squam Epithel, UA See_Comment [Automate d (test code = 47424-0) messag e] The system which generated this result transmit erna reference range : /HPF. The reference range was not used to interpret this result as normal/abnormal . Hyaline Casts, UA 3 See_Comment [Automate d (test code = 51944-3) messag e] The system which generated this result transmit erna reference range : /LPF. The reference range was not used to interpret this result as normal/abnormal . Specimen Source (test code = 2795) NING (test code = NING) Adjunct History Instructor ID - tech Lab Interpretation Abnormal (test code = 45210-3) [facility] CenterUrinalysis w/Microscopic + Reflex to Culture 2022-06-09 06:11:15 Test Item Value Reference Range Interpretation Comments Color, UA (test code Yellow = 5778-6) Clarity, UA (test Clear code = 5767-9) Specific [place], UA 1.020 1.001-1.035 (test code = 5811-5) pH, UA (test code = 6.5 5.0-8.0 5803-2) Protein, UA (test Negative negative code = 08620-5) Glucose, UA (test Negative Negative code = 365) Ketones, UA (test Negative negative code = 2514-8) Bilirubin, UA (test Negative Negative code = 48582-3) Blood, UA (test code Small Negative A = 96499-3) Nitrite, UA (test Negative Negative code = 5802-4) Leukocytes, UA (test Negative Negative code = 5799-2) Urobilinogen, UA 2.0 (test code = 47289-5) RBC, UA (test code = 4 See_Comment [Autom ated 14790-9) message] The system which generated this result transmit erna reference range : /HPF. The reference range was not used to interpret this result as normal/abnormal . WBC, UA (test code = 1 See_Comment [Autom ated 5821-4) message] The system which generated this result transmit erna reference range : /HPF. The reference range was not used to interpret this result as normal/abnormal . Bacteria, UA (test Rare code = 60941-2) Squam Epithel, UA See_Comment [Automate d (test code = 17922-9) messag e] The system which generated this result transmit erna reference range : /HPF. The reference range was not used to interpret this result as normal/abnormal . Hyaline Casts, UA 3 See_Comment [Automate d (test code = 24258-6) messag e] The system which generated this result transmit erna reference range : /LPF. The reference range was not used to interpret this result as normal/abnormal . Specimen Source (test code = 2795) NING (test code = NING) Adjunct History Instructor ID - tech Lab Interpretation Abnormal (test code = 22288-2) [facility] CenterURINALYSIS W/ REFLEX URINE [id number] 06:11:15 Test Item Value Reference Range Interpretation Comments COLOR (BEAKER) (test code = 470) Yellow CLARITY (BEAKER) (test code = 469) Clear SPECIFIC GRAVITY UA (BEAKER) (test 1.020 1.001-1.035 code = 468) PH UA (BEAKER) (test code = 467) 6.5 5.0-8.0 PROTEIN UA (BEAKER) (test code = Negative negative 464) GLUCOSE UA (BEAKER) (test code = Negative Negative 365) KETONES UA (BEAKER) (test code = Negative negative 371) BILIRUBIN UA (BEAKER) (test code = Negative Negative 462) BLOOD UA (BEAKER) (test code = 461) Small Negative A NITRITE UA (BEAKER) (test code = Negative Negative 465) LEUKOCYTE ESTERASE UA (BEAKER) (test Negative Negative code = 466) UROBILINOGEN UA (BEAKER) (test code 2.0 = 463) RBC UA (BEAKER) (test code = 519) 4 /HPF WBC UA (BEAKER) (test code = 520) 1 /HPF BACTERIA (BEAKER) (test code = 517) Rare SQUAMOUS EPITHELIAL (BEAKER) (test < /HPF code = 516) HYALINE CASTS (BEAKER) (test code = 3 /LPF 514) SOURCE(BEAKER) (test code = 2795) Adjunct History Instructor ID - techRapid drug screen, [id number] 05:42:00 Test Item Value Reference Range Interpretation Comments Barbiturate Screen Negative Negative (test code = 74851-5) Benzodiazepine Screen Positive Negative A (test code = 01308-1) Cocaine (Metab.) Positive Negative A Screen (test code = 3397-7) Methadone Screen (test Negative Negative code = 20317-4) Opiate Screen (test Negative Negative code = 27205-6) Cannabinoid Screen Negative Negative (test code = 41823-1) Amph/Methamph Screen Negative Negative (test code = 25526-1) Phencyclidine Screen Negative Negative (test code = 27459-0) pH, UA (test code = 6.5 5.0-8.0 5803-2) NING (test code = NING) DRUG CUTOFF CONC.Cocaine 300 ng/mL Cannabinoid 50 ng/mLBenzodiazepine 200 ng/mLBarbiturate 200 ng/mLPhencyclidine 25 ng/mLOpiate 300 ng/mLMethadone 300 ng/mLAmphetamine/ 1000 ng/mL Methamphetamine This assay provides an unconfirmed qualitative test result for the clinical management of patients in emergency situations. Chain of custody not maintained. Some uwon-axx-zsabkyd medications, as well as adulterants, may cause inaccurate results. Clinical correlation should be applied. A more comprehensive drug screen or confirmation of a detected drug may be performed upon request.Adjunct History Instructor ID - BS Lab Interpretation Abnormal (test code = 13736-5) [facility] CenterRapid drug screen, [id number] 05:42:00 Test Item Value Reference Range Interpretation Comments Barbiturate Screen Negative Negative (test code = 33460-1) Benzodiazepine Screen Positive Negative A (test code = 92343-9) Cocaine (Metab.) Positive Negative A Screen (test code = 3397-7) Methadone Screen (test Negative Negative code = 23868-4) Opiate Screen (test Negative Negative code = 89032-5) Cannabinoid Screen Negative Negative (test code = 59896-7) Amph/Methamph Screen Negative Negative (test code = 66214-7) Phencyclidine Screen Negative Negative (test code = 51205-7) pH, UA (test code = 6.5 5.0-8.0 5803-2) NING (test code = NING) DRUG CUTOFF CONC.Cocaine 300 ng/mL Cannabinoid 50 ng/mLBenzodiazepine 200 ng/mLBarbiturate 200 ng/mLPhencyclidine 25 ng/mLOpiate 300 ng/mLMethadone 300 ng/mLAmphetamine/ 1000 ng/mL Methamphetamine This assay provides an unconfirmed qualitative test result for the clinical management of patients in emergency situations. Chain of custody not maintained. Some azed-ptj-eomxluu medications, as well as adulterants, may cause inaccurate results. Clinical correlation should be applied. A more comprehensive drug screen or confirmation of a detected drug may be performed upon request.Adjunct History Instructor ID - BS Lab Interpretation Abnormal (test code = 03574-4) [facility] CenterRAPID DRUG SCREEN, [id number] 05:42:00 Test Item Value Reference Range Interpretation Comments BARBITURATE URINE (BEAKER) (test Negative Negative code = 725) BENZODIAZEPINE SCREEN URINE (BEAKER) Positive Negative A (test code = 726) COCAINE (METAB.) SCREEN (BEAKER) Positive Negative A (test code = 1164) METHADONE SCREEN (BEAKER) (test code Negative Negative = 1436) OPIATE SCREEN URINE (BEAKER) (test Negative Negative code = 734) CANNABINOID SCREEN URINE (BEAKER) Negative Negative (test code = 727) AMPH/METHAMPH SCREEN (BEAKER) (test Negative Negative code = 1438) PHENCYCLIDINE SCREEN URINE (BEAKER) Negative Negative (test code = 608) PH UA (BEAKER) (test code = 467) 6.5 5.0-8.0 DRUG CUTOFF CONC.Cocaine 300 ng/mL Cannabinoid 50 ng/mLBenzodiazepine 200 ng/mLBarbiturate 200 ng/mLPhencyclidine 25 ng/mLOpiate 300 ng/mLMethadone 300 ng/mLAmphetamine/ 1000 ng/mL MethamphetamineThis assay provides an unconfirmed qualitative test result for the clinical management of patients in emergency situations. Chain of custody not maintained. Some wfty-lop-odlpfde medications, as well as adulterants, may cause inaccurate results. Clinical correlation should be applied. A more comprehensive drug screen or confirmation of a detected drug may be performed upon request.Adjunct History Instructor ID - BSBLOOD GAS, ARTERIAL 2022-06-09 05:16:29 Test Item Value Reference Range Interpretation Comments PH ARTERIAL (BEAKER) (test code = 7.46 7.35-7.45 H 383) PCO2 ARTERIAL (BEAKER) (test code 30 mm Hg 35-45 L = 384) PO2 ARTERIAL (BEAKER) (test code 187 mm Hg 80-90 H = 385) O2 SATURATION ARTERIAL (BEAKER) 99.4 % 96.0-97.0 H (test code = 386) HCO3 ARTERIAL (BEAKER) (test code 20 mmol/L 21-29 L = 388) BASE EXCESS ARTERIAL (BEAKER) -2.8 mmol/L -2.0-3.0 L (test code = 387) PATIENT TEMPERATURE (BEAKER) 37.5 (test code = 1818) FIO2 (BEAKER) (test code = 1819) 21.0 CALCIUM, [id number] 05:14:38 Test Item Value Reference Range Interpretation Comments CALCIUM IONIZED (BEAKER) (test 1.21 mmol/L 1.12-1.27 code = 698) PH, BLOOD (BEAKER) (test code = 7.47 1810) BASIC METABOLIC [id number] 05:08:20 Test Item Value Reference Range Interpretation Comments SODIUM (BEAKER) 138 meq/L 136-145 (test code = 381) POTASSIUM 3.7 meq/L 3.5-5.1 (BEAKER) (test code = 379) CHLORIDE (BEAKER) 113 meq/L 98-107 H (test code = 382) CO2 (BEAKER) 20 meq/L 22-29 L (test code = 355) BLOOD UREA 25 mg/dL 7-21 H NITROGEN (BEAKER) (test code = 354) CREATININE 0.71 mg/dL 0.57-1.25 (BEAKER) (test code = 358) GLUCOSE RANDOM 143 mg/dL 70-105 H (BEAKER) (test code = 652) CALCIUM (BEAKER) 8.3 mg/dL 8.4-10.2 L (test code = 697) EGFR (BEAKER) 112 Interpretatio n of eGFR (test code = mL/min/1.73 values Stage De scription 1092) sq m Result G1 Jojo l or high >=90 G2 Mildly decreased 60-89 G3a Mildl y to moderately 45-5 9 G3b Moderately to s everely 30-44 G4 Severl y decreased 15-29 G5 Kidney failure <15Reported eGF R is based on the CKD-EPI 2021 equation that d oes not use a race coefficientEsti mated GFR is not as accur ate as Creatinine [place] neves in predicting glom erular filtration rate . Estimated GFR is not appl icable for dialysis patien ts Adjunct History Instructor ID - MARCOSpecimen slightly ictericHEPATIC FUNCTION [id number] 05:08:20 Test Item Value Reference Range Interpretation Comments TOTAL PROTEIN (BEAKER) (test code = 3.7 gm/dL 6.0-8.3 L 770) ALBUMIN (BEAKER) (test code = 1145) 2.3 g/dL 3.5-5.0 L BILIRUBIN TOTAL (BEAKER) (test code 4.2 mg/dL 0.2-1.2 H = 377) BILIRUBIN DIRECT (BEAKER) (test 2.4 mg/dL 0.1-0.5 H code = 706) ALKALINE PHOSPHATASE (BEAKER) (test 46 U/L 40-150 code = 346) AST (SGOT) (BEAKER) (test code = 39 U/L 5-34 H 353) ALT (SGPT) (BEAKER) (test code = 121 U/L 6-55 H 347) Adjunct History Instructor ID - MARCOSpecimen slightly [id number] 05:08:19 Test Item Value Reference Range Interpretation Comments MAGNESIUM (BEAKER) (test code = 2.4 mg/dL 1.6-2.6 627) Adjunct History Instructor ID - GRUHNETBBDYMXCP5529-03-37 05:08:19 Test Item Value Reference Range Interpretation Comments PHOSPHORUS (BEAKER) (test code = 2.8 mg/dL 2.3-4.7 604) Adjunct History Instructor ID - MARCOTHROMBOELASTOGRAPH (TEG)2022-06-09 05:00:32 Test Item Value Reference Range Interpretation Comments TEG ACTIVATED CLOTTING TIME 3.9 minutes 4.0-7.0 L (BEAKER) (test code = 1407) TEG FIBRINOGEN ACTIVITY (BEAKER) 51.9 degrees 61.0-73.0 L (test code = 1408) TEG PLT. AGGREGATION (BEAKER) 62.7 MM 55.0-65.0 (test code = 1409) TEG FIBRINOLYSIS (BEAKER) (test 0.0 % 0.0-5.0 code = 1410) [facility] ACTIVATED CLOTTING TIME 4.0 minutes 4.0-7.0 (BEAKER) (test code = 1411) [facility] FIBRINOGEN ACTIVITY (BEAKER) 69.6 degrees 61.0-73.0 (test code = 1412) [facility] PLT. AGGREGATION (BEAKER) 57.3 MM 55.0-65.0 (test code = 1413) [facility] FIBRINOLYSIS (BEAKER) (test 0.0 % 0.0-5.0 code = 1414) LACTIC ACID, [id number] 04:54:00 Test Item Value Reference Range Interpretation Comments LACTATE BLOOD ARTERIAL (2) 0.9 mmol/L 0.5-2.2 (BEAKER) (test code = 2874) Adjunct History Instructor ID - BSSpecimen slightly [id number] 04:50:13 Test Item Value Reference Range Interpretation Comments FIBRINOGEN LEVEL (BEAKER) (test 167 mg/dl 225-434 L code = 658) PROTHROMBIN TIME/[id number] 04:49:50 Test Item Value Reference Range Interpretation Comments PROTIME (BEAKER) (test code = 18.7 seconds 11.9-14.2 H 759) INR (BEAKER) (test code = 370) 1.67 <=5.90 RECOMMENDED COUMADIN/WARFARIN INR THERAPY RANGESSTANDARD DOSE: 2.0 - 3.0 Includes: PROPHYLAXIS for venous thrombosis, systemic embolization; TREATMENT for venous thrombosis and/or pulmonary embolus.HIGH RISK: Target INR is 2.5-3.5 for patients with mechanical heart valves.CBC (HEMOGRAM ONLY)2022-06-09 04:42:45 Test Item Value Reference Range Interpretation Comments WHITE BLOOD CELL COUNT (BEAKER) 7.8 K/ L 3.5-10.5 (test code = 775) RED BLOOD CELL COUNT (BEAKER) 2.67 M/ L 3.93-5.22 L (test code = 761) HEMOGLOBIN (BEAKER) (test code = 7.9 GM/DL 11.2-15.7 L 410) HEMATOCRIT (BEAKER) (test code = 22.6 % 34.1-44.9 L 411) MEAN CORPUSCULAR VOLUME (BEAKER) 85 fL 79-95 (test code = 753) MEAN CORPUSCULAR HEMOGLOBIN 29.6 pg 25.6-32.2 (BEAKER) (test code = 751) MEAN CORPUSCULAR HEMOGLOBIN CONC 35.0 GM/DL 32.2-35.5 (BEAKER) (test code = 752) RED CELL DISTRIBUTION WIDTH 15.7 % 11.7-14.4 H (BEAKER) (test code = 412) PLATELET COUNT (BEAKER) (test code 89 K/CU MM 150-450 L = 756) MEAN PLATELET VOLUME (BEAKER) 10.5 fL 9.4-12.3 (test code = 754) NUCLEATED RED BLOOD CELLS (BEAKER) 0 /100 WBC 0-0 (test code = 413) VITAMIN [id number] 02:35:55 Test Item Value Reference Range Interpretation Comments VITAMIN B12 (BEAKER) (test code = > pg/mL 213-816 H 774) Adjunct History Instructor ID - MARCOBASIC METABOLIC [id number] 01:39:15 Test Item Value Reference Range Interpretation Comments SODIUM (BEAKER) 134 meq/L 136-145 L (test code = 381) POTASSIUM 3.8 meq/L 3.5-5.1 (BEAKER) (test code = 379) CHLORIDE (BEAKER) 111 meq/L 98-107 H (test code = 382) CO2 (BEAKER) 15 meq/L 22-29 L (test code = 355) BLOOD UREA 30 mg/dL 7-21 H NITROGEN (BEAKER) (test code = 354) CREATININE 0.78 mg/dL 0.57-1.25 (BEAKER) (test code = 358) GLUCOSE RANDOM 188 mg/dL 70-105 H (BEAKER) (test code = 652) CALCIUM (BEAKER) 7.3 mg/dL 8.4-10.2 L (test code = 697) EGFR (BEAKER) 100 Interpretatio n of eGFR (test code = mL/min/1.73 values Stage De scription 1092) sq m Result G1 Jojo l or high >=90 G2 Mildly decreased 60-89 G3a Mildl y to moderately 45-5 9 G3b Moderately to s everely 30-44 G4 Severl y decreased 15-29 G5 Kidney failure <15Reported eGF R is based on the CKD-EPI 1 equation that d oes not use a race coefficientEsti mated GFR is not as accur ate as Creatinine [place] neves in predicting glom erular filtration rate . Estimated GFR is not appl icable for dialysis patien ts Adjunct History Instructor ID - BSSpecimen slightly [id number] 01:23:08 Test Item Value Reference Range Interpretation Comments MAGNESIUM (BEAKER) (test code = 1.5 mg/dL 1.6-2.6 L 627) Adjunct History Instructor ID - BSLACTIC ACID, [id number] 01:17:49 Test Item Value Reference Range Interpretation Comments LACTATE BLOOD ARTERIAL (2) 2.3 mmol/L 0.5-2.2 H (BEAKER) (test code = 2874) Adjunct History Instructor ID - YOBANIpecimen slightly icteric(CELLAVISION MANUAL DIFF)2022-06-09 01:10:13 Test Item Value Reference Range Interpretation Comments NEUTROPHILS - REL 99 % (CELLAVISION)(BEAKER) (test code = 2816) LYMPHOCYTES - REL 1 % (CELLAVISION)(BEAKER) (test code = 2817) NEUTROPHILS - ABS 11.78 K/ul 1.56-6.13 H (CELLAVISION)(BEAKER) (test code = 2830) LYMPHOCYTES - ABS 0.12 K/ul 1.18-3.74 L (CELLAVISION)(BEAKER) (test code = 2831) TOTAL COUNTED (BEAKER) (test code 100 = 1351) MANUAL NRBC PER 100 CELLS (BEAKER) 1 /100 WBC 0-0 H (test code = 1353) WBC MORPHOLOGY (BEAKER) (test code Normal = 487) PLT MORPHOLOGY (BEAKER) (test code Normal = 486) ANISOCYTOSIS (BEAKER) (test code = 1+ few 961) ARTIFACT (CELLAVISION)(BEAKER) Present (test code = 3432) PLATELET CONCENTRATION Decreased (CELLAVISION)(BEAKER) (test code = 3438) Adjunct History Instructor ID - Carine RivasMaribelchristian comments: Slide comments:CBC W/PLT COUNT & AUTO [id number] 01:10:12 Test Item Value Reference Range Interpretation Comments WHITE BLOOD CELL COUNT 11.9 K/ L 3.5-10.5 H (BEAKER) (test code = 775) RED BLOOD CELL COUNT 2.88 M/ L 3.93-5.22 L (BEAKER) (test code = 761) HEMOGLOBIN (BEAKER) 8.4 GM/DL 11.2-15.7 L Patient received (test code = 410) blood HEMATOCRIT (BEAKER) 24.2 % 34.1-44.9 L (test code = 411) MEAN CORPUSCULAR VOLUME 84 fL 79-95 (BEAKER) (test code = 753) MEAN CORPUSCULAR 29.2 pg 25.6-32.2 HEMOGLOBIN (BEAKER) (test code = 751) MEAN CORPUSCULAR 34.7 GM/DL 32.2-35.5 HEMOGLOBIN CONC (BEAKER) (test code = 752) RED CELL DISTRIBUTION 16.5 % 11.7-14.4 H WIDTH (BEAKER) (test code = 412) PLATELET COUNT (BEAKER) 80 K/CU MM 150-450 L Caroline ent received (test code = 756) platelets MEAN PLATELET VOLUME 10.0 fL 9.4-12.3 (BEAKER) (test code = 754) NUCLEATED RED BLOOD 1 /100 WBC 0-0 H CELLS (BEAKER) (test code = 413) [id number] 01:04:07 Test Item Value Reference Range Interpretation Comments FIBRINOGEN LEVEL (BEAKER) (test 151 mg/dl 225-434 L code = 658) CALCIUM, [id number] 00:40:04 Test Item Value Reference Range Interpretation Comments CALCIUM IONIZED (BEAKER) (test 1.06 mmol/L 1.12-1.27 L code = 698) PH, BLOOD (BEAKER) (test code = 7.45 1810) BLOOD GAS, [id number] 00:39:58 Test Item Value Reference Range Interpretation Comments PH ARTERIAL (BEAKER) (test code = 7.45 7.35-7.45 383) PCO2 ARTERIAL (BEAKER) (test code 25 mm Hg 35-45 L = 384) PO2 ARTERIAL (BEAKER) (test code 174 mm Hg 80-90 H = 385) O2 SATURATION ARTERIAL (BEAKER) 99.3 % 96.0-97.0 H (test code = 386) HCO3 ARTERIAL (BEAKER) (test code 17 mmol/L 21-29 L = 388) BASE EXCESS ARTERIAL (BEAKER) -6.0 mmol/L -2.0-3.0 L (test code = 387) PATIENT TEMPERATURE (BEAKER) 37.0 (test code = 1818) FIO2 (BEAKER) (test code = 1819) 21.0 RAD, CHEST, 1 VIEW, NON [id number] 00:26:00Reason for exam:->Left IJ central line placementShould this be performed at the bedside?->Yes [facility] 1985 Sex: FFINAL REPORT Chest, 1 view, 06/09/2022 12:25 AM. History: Left IJ line placement. Comparison: 06/08/2022. Discussion: The cardiomediastinal silhouette and pulmonary vasculature are within normal limits for a portable exam. A new left IJ nontunneled dialysis catheter is present terminating in the right atrium. There is no pneumothorax. Right IJ central line is unchanged in position. The lungs are clear without evidence of consolidation or effusion. The soft tissues and osseous structures are intact. IMPRESSION: No evidence of complication post left IJ line placement. Signed: Vernon Marinelli Verified Date/Time: 06/09/2022 00:26:48 BLOOD GAS, [id number] 22:28:00 Test Item Value Reference Range Interpretation Comments PH ARTERIAL (BEAKER) (test code = 7.47 7.35-7.45 H 383) PCO2 ARTERIAL (BEAKER) (test code 22 mm Hg 35-45 L = 384) PO2 ARTERIAL (BEAKER) (test code 172 mm Hg 80-90 H = 385) O2 SATURATION ARTERIAL (BEAKER) 99.3 % 96.0-97.0 H (test code = 386) HCO3 ARTERIAL (BEAKER) (test code 15 mmol/L 21-29 L = 388) BASE EXCESS ARTERIAL (BEAKER) -7.9 mmol/L -2.0-3.0 L (test code = 387) PATIENT TEMPERATURE (BEAKER) 37.0 (test code = 1818) FIO2 (BEAKER) (test code = 1819) 21.0 CBC (HEMOGRAM ONLY)2022-06-08 22:25:52 Test Item Value Reference Range Interpretation Comments WHITE BLOOD CELL COUNT (BEAKER) 10.7 K/ L 3.5-10.5 H (test code = 775) RED BLOOD CELL COUNT (BEAKER) 1.56 M/ L 3.93-5.22 L (test code = 761) HEMOGLOBIN (BEAKER) (test code = 4.4 GM/DL 11.2-15.7 LL 410) HEMATOCRIT (BEAKER) (test code = 13.0 % 34.1-44.9 L 411) MEAN CORPUSCULAR VOLUME (BEAKER) 83 fL 79-95 (test code = 753) MEAN CORPUSCULAR HEMOGLOBIN 28.2 pg 25.6-32.2 (BEAKER) (test code = 751) MEAN CORPUSCULAR HEMOGLOBIN CONC 33.8 GM/DL 32.2-35.5 (BEAKER) (test code = 752) RED CELL DISTRIBUTION WIDTH 15.5 % 11.7-14.4 H (BEAKER) (test code = 412) PLATELET COUNT (BEAKER) (test code 50 K/CU MM 150-450 L = 756) MEAN PLATELET VOLUME (BEAKER) 10.2 fL 9.4-12.3 (test code = 754) NUCLEATED RED BLOOD CELLS (BEAKER) 1 /100 WBC 0-0 H (test code = 413) THROMBOELASTOGRAPH (TEG)2022-06-08 22:10:25 Test Item Value Reference Range Interpretation Comments TEG ACTIVATED CLOTTING TIME 3.2 minutes 4.0-7.0 L (BEAKER) (test code = 1407) TEG FIBRINOGEN ACTIVITY (BEAKER) 81.4 degrees 61.0-73.0 H (test code = 1408) TEG PLT. AGGREGATION (BEAKER) 52.3 MM 55.0-65.0 L (test code = 1409) TEG FIBRINOLYSIS (BEAKER) (test 0.1 % 0.0-5.0 code = 1410) TGH ACTIVATED CLOTTING TIME 3.7 minutes 4.0-7.0 L (BEAKER) (test code = 1411) TGH FIBRINOGEN ACTIVITY (BEAKER) 40.9 degrees 61.0-73.0 L (test code = 1412) TGH PLT. AGGREGATION (BEAKER) 39.7 MM 55.0-65.0 L (test code = 1413) TGH FIBRINOLYSIS (BEAKER) (test 1.0 % 0.0-5.0 code = 1414) [id number] 21:35:45 Test Item Value Reference Range Interpretation Comments FIBRINOGEN LEVEL (BEAKER) (test 149 mg/dl 225-434 L code = 658) [id number] 21:28:48 Test Item Value Reference Range Interpretation Comments FERRITIN (BEAKER) (test code = 223.31 ng/mL 5.00-275.00 361) Adjunct History Instructor ID - MMLACTIC ACID, [id number] 21:17:43 Test Item Value Reference Range Interpretation Comments LACTATE BLOOD ARTERIAL (2) 9.0 mmol/L 0.5-2.2 HH (BEAKER) (test code = 2874) Adjunct History Instructor ID - [id number] 21:17:07 Test Item Value Reference Range Interpretation Comments PHOSPHORUS (BEAKER) (test code = 3.8 mg/dL 2.3-4.7 604) Adjunct History Instructor ID - [id number] 21:17:06 Test Item Value Reference Range Interpretation Comments MAGNESIUM (BEAKER) (test code = 1.9 mg/dL 1.6-2.6 627) Adjunct History Instructor ID - BSBLOOD GAS, [id number] 21:12:20 Test Item Value Reference Range Interpretation Comments PH ARTERIAL (BEAKER) (test code 7.48 7.35-7.45 H = 383) PCO2 ARTERIAL (BEAKER) (test 17 mm Hg 35-45 LL code = 384) PO2 ARTERIAL (BEAKER) (test code 168 mm Hg 80-90 H = 385) O2 SATURATION ARTERIAL (BEAKER) 99.3 % 96.0-97.0 H (test code = 386) HCO3 ARTERIAL (BEAKER) (test 12 mmol/L 21-29 L code = 388) BASE EXCESS ARTERIAL (BEAKER) -10.4 mmol/L -2.0-3.0 L (test code = 387) PATIENT TEMPERATURE (BEAKER) 37.0 (test code = 1818) FIO2 (BEAKER) (test code = 1819) 21.0 BASIC METABOLIC [id number] 21:11:38 Test Item Value Reference Range Interpretation Comments SODIUM (BEAKER) 135 meq/L 136-145 L (test code = 381) POTASSIUM 3.1 meq/L 3.5-5.1 L (BEAKER) (test code = 379) CHLORIDE (BEAKER) 109 meq/L 98-107 H (test code = 382) CO2 (BEAKER) 19 meq/L 22-29 L (test code = 355) BLOOD UREA 43 mg/dL 7-21 H NITROGEN (BEAKER) (test code = 354) CREATININE 1.15 mg/dL 0.57-1.25 (BEAKER) (test code = 358) GLUCOSE RANDOM 84 mg/dL 70-105 (BEAKER) (test code = 652) CALCIUM (BEAKER) 5.9 mg/dL 8.4-10.2 LL (test code = 697) EGFR (BEAKER) 63 Interpretatio n of eGFR (test code = mL/min/1.73 values [...] not appl icable for dialysis patien ts Adjunct History Instructor ID - [id number] 21:10:06 Test Item Value Reference Range Interpretation Comments PARTIAL THROMBOPLASTIN TIME 32.3 seconds 22.5-36.0 (BEAKER) (test code = 760) PROTHROMBIN [id number] 21:09:27 Test Item Value Reference Range Interpretation Comments PROTIME (BEAKER) (test code = 23.4 seconds 11.9-14.2 H 759) INR (BEAKER) (test code = 370) 2.23 <=5.90 RECOMMENDED COUMADIN/WARFARIN INR THERAPY RANGESSTANDARD DOSE: 2.0 - 3.0 Includes: PROPHYLAXIS for venous thrombosis, systemic embolization; TREATMENT for venous thrombosis and/or pulmonary embolus.HIGH RISK: Target INR is 2.5-3.5 for patients with mechanical heart valves.CALCIUM, [id number] 21:01:33 Test Item Value Reference Range Interpretation Comments CALCIUM IONIZED (BEAKER) (test 0.93 mmol/L 1.12-1.27 L code = 698) PH, BLOOD (BEAKER) (test code = 7.48 1810) LACTATE DEHYDROGENASE (LDH)2022-06-08 20:52:07 Test Item Value Reference Range Interpretation Comments LACTATE DEHYDROGENASE 300 U/L 125-220 H Specim en slightly (BEAKER) (test code = hemoly zed 635) Adjunct History Instructor ID - BSIRON, TIBC, % SAT. (WITHOUT FERRITIN)2022-06-08 20:50:25 Test Item Value Reference Range Interpretation Comments IRON (BEAKER) (test code = 547) 120.0 ug/dL 40.0-160.0 TOTAL IRON BINDING CAPACITY 121 ug/dL 250-450 L (BEAKER) (test code = 769) IRON % SATURATION (2) (BEAKER) 99 % 20-55 H (test code = 2590) Adjunct History Instructor ID - BSRETICULOCYTE [id number] 20:36:25 Test Item Value Reference Range Interpretation Comments RETICULOCYTE COUNT PCT (BEAKER) (test 1.3 % 0.5-1.7 code = 575) Adjunct History Instructor ID - [id number] ANTIGEN WITH HIV-1/2 [id number] 20:11:17 Test Item Value Reference Range Interpretation Comments HIV-1 ANTIGEN WITH HIV 1\\T\\2 Nonreactive Nonreactive ANTIBODY (2) (BEAKER) (test code = 2586) THROMBOELASTOGRAPH (TEG)2022-06-08 18:55:39 Test Item Value Reference Range Interpretation Comments TEG ACTIVATED CLOTTING TIME 4.2 minutes 4.0-7.0 (BEAKER) (test code = 1407) TEG FIBRINOGEN ACTIVITY (BEAKER) 72.1 degrees 61.0-73.0 (test code = 1408) TEG PLT. AGGREGATION (BEAKER) 44.6 MM 55.0-65.0 L (test code = 1409) TEG FIBRINOLYSIS (BEAKER) (test 0.1 % 0.0-5.0 code = 1410) TGH ACTIVATED CLOTTING TIME 4.0 minutes 4.0-7.0 (BEAKER) (test code = 1411) TGH FIBRINOGEN ACTIVITY (BEAKER) 70.8 degrees 61.0-73.0 (test code = 1412) TGH PLT. AGGREGATION (BEAKER) 50.0 MM 55.0-65.0 L (test code = 1413) TGH FIBRINOLYSIS (BEAKER) (test 4.1 % 0.0-5.0 code = 1414) Screen, [id number] 18:29:14 Test Item Value Reference Range Interpretation Comments Preg Test, Ur (test code = 2-1) Negative Negative Lab Interpretation (test code = Normal 44465-0) [facility] [id number] 18:29:14 Test Item Value Reference Range Interpretation Comments Preg Test, Ur (test code = 2-1) Negative Negative Lab Interpretation (test code = Normal 15068-1) [facility] CenterPREANCY SCREEN, [id number] 18:29:14 Test Item Value Reference Range Interpretation Comments TEST URINE (BEAKER) (test Negative Negative code = 583) BASIC METABOLIC [id number] 18:17:25 Test Item Value Reference Range Interpretation Comments SODIUM (BEAKER) 133 meq/L 136-145 L (test code = 381) POTASSIUM 3.8 meq/L 3.5-5.1 Specimen slight ly (BEAKER) (test hemolyzed code = 379) CHLORIDE (BEAKER) 105 meq/L 98-107 (test code = 382) CO2 (BEAKER) 17 meq/L 22-29 L (test code = 355) BLOOD UREA 38 mg/dL 7-21 H NITROGEN (BEAKER) (test code = 354) CREATININE 0.98 mg/dL 0.57-1.25 Specimen slight ly (BEAKER) (test hemolyzed code = 358) GLUCOSE RANDOM 183 mg/dL 70-105 H (BEAKER) (test code = 652) CALCIUM (BEAKER) 6.3 mg/dL 8.4-10.2 L (test code = 697) EGFR (BEAKER) 76 Interpretatio n of eGFR (test code = mL/min/1.73 values Stage De scription 1092) sq m Result G1 Jojo l or high >=90 G2 Mildly decreased 60-89 G3a Mildl y to moderately 45-5 9 G3b Moderately to s everely 30-44 G4 Severl y decreased 15-29 G5 Kidney failure <15Reported eGF R is based on the CKD-EPI 2021 equation that d oes not use a race coefficientEsti mated GFR is not as accur ate as Creatinine [place] neves in predicting glom erular filtration rate . Estimated GFR is not appl icable for dialysis patien ts Adjunct History Instructor ID - BSCALCIUM, [id number] 18:05:08 Test Item Value Reference Range Interpretation Comments CALCIUM IONIZED (BEAKER) (test 0.71 mmol/L 1.12-1.27 LL code = 698) PH, BLOOD (BEAKER) (test code = 7.46 1810) CBC W/PLT COUNT & AUTO [id number] 18:04:39 Test Item Value Reference Range Interpretation Comments WHITE BLOOD CELL COUNT (BEAKER) 13.4 K/ L 3.5-10.5 H (test code = 775) RED BLOOD CELL COUNT (BEAKER) 4.00 M/ L 3.93-5.22 (test code = 761) HEMOGLOBIN (BEAKER) (test code = 10.7 GM/DL 11.2-15.7 L 410) HEMATOCRIT (BEAKER) (test code = 32.3 % 34.1-44.9 L 411) MEAN CORPUSCULAR VOLUME (BEAKER) 81 fL 79-95 (test code = 753) MEAN CORPUSCULAR HEMOGLOBIN 26.8 pg 25.6-32.2 (BEAKER) (test code = 751) MEAN CORPUSCULAR HEMOGLOBIN CONC 33.1 GM/DL 32.2-35.5 (BEAKER) (test code = 752) RED CELL DISTRIBUTION WIDTH 16.5 % 11.7-14.4 H (BEAKER) (test code = 412) PLATELET COUNT (BEAKER) (test 119 K/CU MM 150-450 L code = 756) MEAN PLATELET VOLUME (BEAKER) 10.5 fL 9.4-12.3 (test code = 754) NUCLEATED RED BLOOD CELLS 0 /100 WBC 0-0 (BEAKER) (test code = 413) NEUTROPHILS RELATIVE PERCENT 80 % (BEAKER) (test code = 429) LYMPHOCYTES RELATIVE PERCENT 17 % (BEAKER) (test code = 430) MONOCYTES RELATIVE PERCENT 3 % (BEAKER) (test code = 431) EOSINOPHILS RELATIVE PERCENT 0 % (BEAKER) (test code = 432) BASOPHILS RELATIVE PERCENT 0 % (BEAKER) (test code = 437) NEUTROPHILS ABSOLUTE COUNT 10.71 K/ L 1.56-6.13 H (BEAKER) (test code = 670) LYMPHOCYTES ABSOLUTE COUNT 2.24 K/ L 1.18-3.74 (BEAKER) (test code = 414) MONOCYTES ABSOLUTE COUNT (BEAKER) 0.34 K/ L 0.24-0.36 (test code = 415) EOSINOPHILS ABSOLUTE COUNT 0.01 K/ L 0.04-0.36 L (BEAKER) (test code = 416) BASOPHILS ABSOLUTE COUNT (BEAKER) 0.01 K/ L 0.01-0.08 (test code = 417) IMMATURE GRANULOCYTES-RELATIVE 0.70 % 0.00-1.00 PERCENT (BEAKER) (test code = 2801) T4, [id number] 18:01:04 Test Item Value Reference Range Interpretation Comments FREE T4 (BEAKER) (test code = 655) 1.36 ng/dL 0.70-1.48 Adjunct History Instructor ID - MMLACTIC ACID, [id number] 17:58:08 Test Item Value Reference Range Interpretation Comments LACTATE BLOOD 1.7 mmol/L 0.5-2.2 Specimen sligh tly ARTERIAL (2) (BEAKER) hemoly zed (test code = 2874) Adjunct History Instructor ID - [id number] 17:55:47 Test Item Value Reference Range Interpretation Comments D-DIMER QUANTITATIVE (BEAKER) 0.95 MG/L FEU <0.50 H (test code = 671) Intended Use: The D-Dimer Assay can be used to aid in the diagnosis of Deep Vein Thrombosis (DVT) and Pulmonary Embolism Disease (PED).In patients with low pre- test probability, various studies concerning STA Liatest D-dimer test have reported that with a cutoff value of 0.50 MG/L FEU, the Negative Predictive Value (NPV) regarding the exclusion of thrombosis is within 95-100% range. PT/[id number] 17:53:22 Test Item Value Reference Range Interpretation Comments PROTIME (BEAKER) (test code = 18.4 seconds 11.9-14.2 H 759) INR (BEAKER) (test code = 370) 1.63 <=5.90 PARTIAL THROMBOPLASTIN TIME 30.2 seconds 22.5-36.0 (BEAKER) (test code = 760) RECOMMENDED COUMADIN/WARFARIN INR THERAPY RANGESSTANDARD DOSE: 2.0 - 3.0 Includes: PROPHYLAXIS for venous thrombosis, systemic embolization; TREATMENT for venous thrombosis and/or pulmonary embolus.HIGH RISK: Target INR is 2.5-3.5 for patients with mechanical heart valves.[id number] 17:53:09 Test Item Value Reference Range Interpretation Comments FIBRINOGEN LEVEL (ALEXANDER) (test 243 mg/dl 225-434 code = 658) POC [id number] 17:40:15 Test Item Value Reference Range Interpretation Comments POC-Glucose (test code = 187 mg/dL 70-110 H : T ESTED AT [facility] 1855) 20 [facility], [address] 30: Adjunct History Instructor/Techni skip ID = [id number] for ANGELINA MOURA Lab Interpretation (test Abnormal code = 04232-2) [facility] [id number] 17:40:15 Test Item Value Reference Range Interpretation Comments POC-Glucose (test code = 187 mg/dL 70-110 H : T ESTED AT [facility] 1855) [address] [place] [address], [address]: Adjunct History Instructor/Techni skip ID = [id number] for ANGELINA MOURA Lab Interpretation (test Abnormal code = 85823-2) [facility]-[id number] 17:40:15 Test Item Value Reference Range Interpretation Comments POC-GLUCOSE (ALEXADNER) 187 mg/dL 70-110 H : TESTE D AT [facility] 6720 (test code = 1855) [facility], [address]: Adjunct History Instructor/Techni skip ID = [id number] for ANGELINA MOURA QQYW-[id number] 17:40:14 Test Item Value Reference Range Interpretation Comments POC-Hemoglobin (test code 11.9 g/dL 12.0-15.0 L : TESTED AT [facility] = 1856) [address] [facility], [address] 30: Adjunct History Instructor/Techni skip ID = [id number] for ANGELINA MOURA Lab Interpretation (test Abnormal code = 56031-3) [facility] CenterQtyuhdOITY-[id number] 17:40:14 Test Item Value Reference Range Interpretation Comments POC-Hematocrit (test code 35 % 36-45 L : = 1857) Adjunct History Instructor/Techni skip ID = [id number] for ANGELINA MOURA Lab Interpretation (test Abnormal code = 41400-5) [facility] CenterNlwqhuLRKQ-[id number] 17:40:14 Test Item Value Reference Range Interpretation Comments POC-Hemoglobin (test code 11.9 g/dL 12.0-15.0 L : TESTED AT [facility] = 1856) [address] [facility], [address]: Adjunct History Instructor/Techni skip ID = [id number] for ANGELINA MOURA Lab Interpretation (test Abnormal code = 74098-9) [facility] CenterAnhrydCDEE-[id number] 17:40:14 Test Item Value Reference Range Interpretation Comments POC-Hematocrit (test code 35 % 36-45 L : = 1857) Adjunct History Instructor/Techni skip ID = [id number] for ANGELINA MOURA Lab Interpretation (test Abnormal code = 58185-0) [facility] CenterCwdopmLFAR-[id number] 17:40:14 Test Item Value Reference Range Interpretation Comments POC-HEMOGLOBIN 11.9 g/dL 12.0-15.0 L : TESTED AT [facility] 6720 (BEAKER) (test code [facility], = 1856) [address]: Adjunct History Instructor/Techni skip ID = [id number] for ANGELINA MOURA [id number]-[id number] 17:40:14 Test Item Value Reference Range Interpretation Comments POC-HEMATOCRIT 35 % 36-45 L : Adjunct History Instructor/Te chnician ID = (BEAKER) (test code = 900619 for ANGELINA MOURA 1857) POC-Blood gases, [id number] 17:40:13 Test Item Value Reference Range Interpretation Comments Temp. Celsius-POC (test code = 1834) FIO2-POC (test code = 1835) pH, Arterial-POC (test 7.43 7.35-7.45 code = 2744-1) PCO2, Arterial-POC 27.2 See_Comment L If pO2 is >180, pCO2 (test code = 1837) may be po sitively biased [Automat ed message] The sy stem which generated this result transmit erna reference range : 35.0 - 45.0 mm Hg. The reference r yolanda was not used to interpret this result as normal/abnormal . PO2, Arterial-POC (test 105.0 See_Comment H [Au tomated message] code = 1838) The system [employer] generated this result transmit erna reference range : 80.0 - 90.0 mm Hg. The reference r yolanda was not used to interpret this result as normal/abnormal . SO2, Arterial-POC (test 98.0 % 96.0-97.0 H code = 1839) HCO3, Arterilal-POC 18.2 meq/L 21.0-29.0 L (test code = 1840) BE, Arterial-POC (test -6.0 meq/L -2.0-3.0 L : ZOILA ERNA AT [facility] code = 1841) [address] [place] [address], [address]: Adjunct History Instructor/Techni skip ID = [id number] for ANGELINA MOURA Lab Interpretation Abnormal (test code = 95682-8) [facility]-[id number] 17:40:13 Test Item Value Reference Range Interpretation Comments POC-Potassium (test code 3.9 meq/L 3.6-5.5 : T ESTED AT [facility] = 1540) [address] [place] [address], [address]: Adjunct History Instructor/Techni skip ID = [id number] for ANGELINA MOURA Lab Interpretation (test Normal code = 21199-4) [facility]-[id number] 17:40:13 Test Item Value Reference Range Interpretation Comments POC-Sodium (test code = 134 meq/L 135-148 L : TE STED AT [facility] 1542) [address] [place] [address], [address]: Adjunct History Instructor/Techni skip ID = [id number] for ANGELINA MOURA Lab Interpretation (test Abnormal code = 56021-2) [facility]-Blood gases, [id number] 17:40:13 Test Item Value Reference Range Interpretation Comments Temp. Celsius-POC (test code = 1834) FIO2-POC (test code = 1835) pH, Arterial-POC (test 7.43 7.35-7.45 code = 2744-1) PCO2, Arterial-POC 27.2 See_Comment L If pO2 is >180, pCO2 (test code = 1837) may be po sitively biased [Automat ed message] The sy stem which generated this result transmit erna reference range : 35.0 - 45.0 mm Hg. The reference r yolanda was not used to interpret this result as normal/abnormal . PO2, Arterial-POC (test 105.0 See_Comment H [Au tomated message] code = 1838) The system [employer] h generated this result transmit erna reference range : 80.0 - 90.0 mm Hg. The reference r yolanda was not used to interpret this result as normal/abnormal . SO2, Arterial-POC (test 98.0 % 96.0-97.0 H code = 1839) HCO3, Arterilal-POC 18.2 meq/L 21.0-29.0 L (test code = 1840) BE, Arterial-POC (test -6.0 meq/L -2.0-3.0 L : ZOILA ERNA AT [facility] code = 1841) [address] [facility], [address]: Adjunct History Instructor/Techni skip ID = [id number] for ANGELINA MOURA Lab Interpretation Abnormal (test code = 87380-3) [facility]-[id number] 17:40:13 Test Item Value Reference Range Interpretation Comments POC-Potassium (test code 3.9 meq/L 3.6-5.5 : T ESTED AT [facility] = 1540) [address] [place] [address], [address]: Adjunct History Instructor/Techni skip ID = [id number] for ANGELINA MOURA Lab Interpretation (test Normal code = 26819-5) [facility]-Daichy8312-05-08 17:40:13 Test Item Value Reference Range Interpretation Comments POC-Sodium (test code = 134 meq/L 135-148 L : TE STED AT [facility] 1542) [address] [place] [address], [address]: Adjunct History Instructor/Techni skip ID = [id number] for ANGELINA MOURA Lab Interpretation (test Abnormal code = 78171-3) [facility]-BLOOD GASES, [id number] 17:40:13 Test Item Value Reference Range Interpretation Comments TEMP, CELSIUS-POC (BEAKER) (test code = 1834) FIO2-POC (BEAKER) (test code = 1835) PH, ARTERIAL-POC 7.43 7.35-7.45 (BEAKER) (test code = 1836) PCO2, ARTERIAL-POC 27.2 mm Hg 35.0-45.0 L If pO2 is >180, pCO2 may (BEAKER) (test be positively biased code = 1837) PO2, ARTERIAL-POC 105.0 mm Hg 80.0-90.0 H (BEAKER) (test code = 1838) SO2, ARTERIAL-POC 98.0 % 96.0-97.0 H (BEAKER) (test code = 1839) HCO3, ARTERIAL-POC 18.2 meq/L 21.0-29.0 L (BEAKER) (test code = 1840) BASE EXCESS, -6.0 meq/L -2.0-3.0 L : TESTED AT [facility] 6720 ARTERIAL-POC [facility], (BEAKER) (test [address]: code = 1841) Adjunct History Instructor/Techni skip ID = [id number] for ZENYWILLAN IDSW-[id number] 17:40:13 Test Item Value Reference Range Interpretation Comments POC-SODIUM (BEAKER) 134 meq/L 135-148 L : TESTED AT [facility] 67 (test code = 1542) [place], [address]: Adjunct History Instructor/Techni skip ID = [id number] for ZENY ANGELINA ERBR-[id number] 17:40:13 Test Item Value Reference Range Interpretation Comments POC-POTASSIUM 3.9 meq/L 3.6-5.5 : TESTED AT [place] [address] (BEAKER) (test code [facility], = 1540) [address]: Adjunct History Instructor/Techni skip ID = [id number] for ANGELINA MOURA U/S, DUPLEX, [id number] 17:35:00Reason for exam:->please evaluate hepatic vasculature [facility]NAPOLLOYULIYA LOUISA : 1985 Sex: FFINAL REPORT Real-time Color and Spectral doppler ultrasound of the abdomen was performed. Main portal vein measures 0.9 cm in diameter. There is hepatopedal flow in the main portal vein with velocity 26.6 cm/sec. Right and left portal veins are patent with hepatopedal flow. Proper hepatic artery, right hepatic artery, and left hepatic artery are patent with resistive indices 0.8, 0.8, and 0.7 respectively. IVC, Hepatic venous confluence, right HV, middle HV and left HV are patent. Impression: Patent hepatic arteries and portal veins. Signed: Amalia Rubio Verified Date/Time: 06/08/2022 17:35:07 Reading Location: [address] Body Reading Room HEPATITIS B SURFACE [id number] 17:32:15 Test Item Value Reference Range Interpretation Comments HEPATITIS B SURFACE ANTIBODY < mIU/mL <8.0 (BEAKER) (test code = 647) Adjunct History Instructor ID - BSHEPATITIS B CORE ANTIBODY, [id number] 17:27:01 Test Item Value Reference Range Interpretation Comments HEPATITIS B CORE TOTAL ANTIBODY Nonreactive Nonreactive (BEAKER) (test code = 497) Adjunct History Instructor ID - BSHEPATITIS A ANTIBODY, [id number] 17:27:01 Test Item Value Reference Range Interpretation Comments HEPATITIS A IGG ANTIBODY (BEAKER) Nonreactive Nonreactive (test code = 2797) Adjunct History Instructor ID - BSHEPATITIS A ANTIBODY, [id number] 17:27:00 Test Item Value Reference Range Interpretation Comments HEPATITIS A IGM ANTIBODY (BEAKER) Nonreactive Nonreactive (test code = 498) Adjunct History Instructor ID - [id number] 17:16:00 Test Item Value Reference Range Interpretation Comments POTASSIUM (BEAKER) (test code = 3.0 meq/L 3.5-5.1 L 379) Adjunct History Instructor ID - [id number] 17:16:00 Test Item Value Reference Range Interpretation Comments SODIUM (BEAKER) (test code = 381) 134 meq/L 136-145 L Adjunct History Instructor ID - [id number] 17:16:00 Test Item Value Reference Range Interpretation Comments GLUCOSE RANDOM (BEAKER) (test code 107 mg/dL 70-105 H = 652) Adjunct History Instructor ID - MMSALICYLATE [id number] 17:04:01 Test Item Value Reference Range Interpretation Comments SALICYLATE LEVEL (BEAKER) (test code < mg/dL 15.0-30.0 L = 764) Therapeutic Range: 15.0-30.0 mg/dLToxic: >30.0 mg/dL Lethal: >70.0 mg/dLOperator ID - [id number] 16:50:51 Test Item Value Reference Range Interpretation Comments CORTISOL, TOTAL (BEAKER) (test 13.4 ug/dL 3.7-19.4 code = 2755) Adjunct History Instructor ID - [id number]-9-[id number] 16:35:51 Test Item Value Reference Range Interpretation Comments ALPHA-1 ANTITRYPSIN (BEAKER) 282.30 mg/dL 90.00-200.00 H (test code = 502) Adjunct History Instructor ID - BSACETAMINOPHEN [id number] 16:30:13 Test Item Value Reference Range Interpretation Comments ACETAMINOPHEN LEVEL (BEAKER) (test < ug/mL 10.0-30.0 L code = 344) Therapeutic Range: 10.0-30.0 g/mLToxic Levels: >200.0 g/mLOperator ID - MM TSH/FREE T4 IF [id number] 16:15:28 Test Item Value Reference Range Interpretation Comments THYROID STIMULATING HORMONE 0.121 uIU/mL 0.350-4.940 L (BEAKER) (test code = 772) Adjunct History Instructor ID - BSHEPATITIS C [id number] 16:10:06 Test Item Value Reference Range Interpretation Comments HEPATITIS C ANTIBODY (BEAKER) Nonreactive Nonreactive (test code = 367) Adjunct History Instructor ID - BSHEPATITIS B SURFACE [id number] 16:10:05 Test Item Value Reference Range Interpretation Comments HEPATITIS B SURFACE ANTIGEN (2) Nonreactive Nonreactive (BEAKER) (test code = 2585) Specimen is considered negative for HBsAg.[id number] 15:13:41 Test Item Value Reference Range Interpretation Comments AMMONIA (BEAKER) (test code = 348) 44 mol/L 18-72 Adjunct History Instructor ID - MMCREATINE KINASE (CK)2022-06-08 15:03:37 Test Item Value Reference Range Interpretation Comments CREATINE KINASE TOTAL (BEAKER) (test 42 U/L 29-200 code = 380) Adjunct History Instructor ID - MMU/S, ABDOMINAL, [id number] 14:56:00Reason for exam:- >eval RUQ and kidneys [facility] : 1985 Sex: FFINAL REPORT Abdominal ultrasound dated 06/08/2022 Clinical information:eval RUQ and kidneys Comment: Real-time transabdominal ultrasound was performed. Liver is enlarged and measures 19.3 cm in length. The echogenicity of the liver is normal. No focal lesion is noted in the liver. Spleen is normal in size without focal abnormality. Gallbladder is distended. Small gallstones arepresent. No gallbladder wall thickening, pericholecystic fluid collection, or biliary dilatation is seen. Common bile duct measures 4 mm in diameter. Main portal vein measures 9 mm in diameter. Pancreas is visualized and unremarkable. Right kidney measures 11.2 x 4.9 x 5.2 cm. Left kidney measures 10 x 5.2 x 5.1 cm. Echogenicity of both kidney is normal. No hydronephrosis or solid mass seen in eitherkidney. No cyst is seen in either kidney. No ascites is present in the abdomen. Abdominal aorta is normal in caliber. IVC and Hepatic veins are patent. Impression: 1. Hepatomegaly.2. Cholelithiasis without biliary dilatation. Signed: Amalia Rubio MDReport Verified Date/Time: 06/08/2022 14:56:28 ReadingLocation: [facility] Body Reading Room VITAMIN [id number] 14:03:03 Test Item Value Reference Range Interpretation Comments VITAMIN B12 (BEAKER) (test code = > pg/mL 213-816 H 774) Adjunct History Instructor ID - MMCOMPREHENSIVE METABOLIC [id number] 13:41:11 Test Item Value Reference Range Interpretation Comments TOTAL PROTEIN 4.8 gm/dL 6.0-8.3 L (BEAKER) (test code = 770) ALBUMIN (BEAKER) 2.3 g/dL 3.5-5.0 L (test code = 1145) ALKALINE 89 U/L 40-150 PHOSPHATASE (BEAKER) (test code = 346) BILIRUBIN TOTAL 1.4 mg/dL 0.2-1.2 H (BEAKER) (test code = 377) SODIUM (BEAKER) 134 meq/L 136-145 L (test code = 381) POTASSIUM (BEAKER) 3.7 meq/L 3.5-5.1 (test code = 379) CHLORIDE (BEAKER) 102 meq/L 98-107 (test code = 382) CO2 (BEAKER) (test 20 meq/L 22-29 L code = 355) BLOOD UREA 56 mg/dL 7-21 H NITROGEN (BEAKER) (test code = 354) CREATININE 1.56 mg/dL 0.57-1.25 H (BEAKER) (test code = 358) GLUCOSE RANDOM 102 mg/dL 70-105 (BEAKER) (test code = 652) CALCIUM (BEAKER) 6.8 mg/dL 8.4-10.2 L (test code = 697) AST (SGOT) 137 U/L 5-34 H (BEAKER) (test code = 353) ALT (SGPT) 1557 U/L 6-55 H (BEAKER) (test code = 347) EGFR (BEAKER) 43 Interpretatio n of eGFR (test code = [...] not appl icable for dialysis patien ts Adjunct History Instructor ID - MMRAD, CHEST, 1 VIEW, NON [id number] 13:40:00Reason for exam:- >CVC placementShould this be performed at the bedside?->Yes [facility] : 1985 Sex: FFINAL REPORT Chest, one view History: Placement of central venous catheter Comparison: none Findings:Clear lungs. Normal size heart. No pleural effusion or pneumothorax. A right internal jugular central venous catheter terminates within the superior vena cava. Impression:Satisfactory position of right internal jugular central venous catheter. Signed: Arturo Dumonteport Verified Date/Time: 06/08/2022 13:40:21 [id number] 13:37:09 Test Item Value Reference Range Interpretation Comments FERRITIN (ALEXANDER) (test code = 273.35 ng/mL 5.00-275.00 361) Adjunct History Instructor ID - [id number] 13:11:23 Test Item Value Reference Range Interpretation Comments FIBRINOGEN LEVEL (BEAKER) (test 417 mg/dl 225-434 code = 658) IRON, TIBC, % SAT. (WITHOUT FERRITIN)2022-06-08 13:10:24 Test Item Value Reference Range Interpretation Comments IRON (BEAKER) (test code = 547) 141.0 ug/dL 40.0-160.0 TOTAL IRON BINDING CAPACITY 136 ug/dL 250-450 L (BEAKER) (test code = 769) IRON % SATURATION (2) (BEAKER) 104 % 20-55 H (test code = 2590) Adjunct History Instructor ID - [id number] 13:08:43 Test Item Value Reference Range Interpretation Comments PHOSPHORUS (BEAKER) (test code = 3.8 mg/dL 2.3-4.7 604) Adjunct History Instructor ID - [id number] 13:08:42 Test Item Value Reference Range Interpretation Comments MAGNESIUM (BEAKER) (test code = 2.6 mg/dL 1.6-2.6 627) Adjunct History Instructor ID - [id number] 13:02:42 Test Item Value Reference Range Interpretation Comments PARTIAL THROMBOPLASTIN TIME 31.7 seconds 22.5-36.0 (BEAKER) (test code = 760) PROTHROMBIN TIME/[id number] 13:02:02 Test Item Value Reference Range Interpretation Comments PROTIME (BEAKER) (test code = 18.5 seconds 11.9-14.2 H 759) INR (BEAKER) (test code = 370) 1.65 <=5.90 RECOMMENDED COUMADIN/WARFARIN INR THERAPY RANGESSTANDARD DOSE: 2.0 - 3.0 Includes: PROPHYLAXIS for venous thrombosis, systemic embolization; TREATMENT for venous thrombosis and/or pulmonary embolus.HIGH RISK: Target INR is 2.5-3.5 for patients with mechanical heart valves.CBC W/PLT COUNT & AUTO [id number] 12:49:19 Test Item Value Reference Range Interpretation Comments WHITE BLOOD CELL COUNT (BEAKER) 12.5 K/ L 3.5-10.5 H (test code = 775) RED BLOOD CELL COUNT (BEAKER) 2.56 M/ L 3.93-5.22 L (test code = 761) HEMOGLOBIN (BEAKER) (test code = 6.9 GM/DL 11.2-15.7 L 410) HEMATOCRIT (BEAKER) (test code = 20.4 % 34.1-44.9 L 411) MEAN CORPUSCULAR VOLUME (BEAKER) 80 fL 79-95 (test code = 753) MEAN CORPUSCULAR HEMOGLOBIN 27.0 pg 25.6-32.2 (BEAKER) (test code = 751) MEAN CORPUSCULAR HEMOGLOBIN CONC 33.8 GM/DL 32.2-35.5 (BEAKER) (test code = 752) RED CELL DISTRIBUTION WIDTH 15.7 % 11.7-14.4 H (BEAKER) (test code = 412) PLATELET COUNT (BEAKER) (test 212 K/CU MM 150-450 code = 756) MEAN PLATELET VOLUME (BEAKER) 10.5 fL 9.4-12.3 (test code = 754) NUCLEATED RED BLOOD CELLS 0 /100 WBC 0-0 (BEAKER) (test code = 413) NEUTROPHILS RELATIVE PERCENT 78 % (BEAKER) (test code = 429) LYMPHOCYTES RELATIVE PERCENT 18 % (BEAKER) (test code = 430) MONOCYTES RELATIVE PERCENT 4 % (BEAKER) (test code = 431) EOSINOPHILS RELATIVE PERCENT 0 % (BEAKER) (test code = 432) BASOPHILS RELATIVE PERCENT 0 % (BEAKER) (test code = 437) NEUTROPHILS ABSOLUTE COUNT 9.75 K/ L 1.56-6.13 H (BEAKER) (test code = 670) LYMPHOCYTES ABSOLUTE COUNT 2.20 K/ L 1.18-3.74 (BEAKER) (test code = 414) MONOCYTES ABSOLUTE COUNT (BEAKER) 0.45 K/ L 0.24-0.36 H (test code = 415) EOSINOPHILS ABSOLUTE COUNT 0.00 K/ L 0.04-0.36 L (BEAKER) (test code = 416) BASOPHILS ABSOLUTE COUNT (BEAKER) 0.01 K/ L 0.01-0.08 (test code = 417) IMMATURE GRANULOCYTES-RELATIVE 0.60 % 0.00-1.00 PERCENT (BEAKER) (test code = 2801) [id number] 12:31:06 Test Item Value Reference Range Interpretation Comments POC-POTASSIUM 3.6 meq/L 3.6-5.5 : TESTED AT [facility] 6720 (BEAKER) (test code [facility], = 1540) [address]: Adjunct History Instructor/Techni skip ID = [id number] for ANGELINA MOURA [id number]-[id number] 12:31:06 Test Item Value Reference Range Interpretation Comments POC-HEMOGLOBIN 6.8 g/dL 12.0-15.0 L : TESTED AT [facility] 6720 (BEAKER) (test code = CRISTINABARB [employer] [facility], 185) [address]: Adjunct History Instructor/Techni skip ID = [id number] for ANGELINA MOURA PAPC-[id number] 12:31:06 Test Item Value Reference Range Interpretation Comments POC-HEMATOCRIT 20 % 36-45 L : Adjunct History Instructor/Te chnician ID = (BEAKER) (test code = 467085 for ANGELINA MOURA 185) [id number] 12:31:06 Test Item Value Reference Range Interpretation Comments POC-GLUCOSE (BEAKER) 105 mg/dL 70-110 : TESTE D AT [facility] 6720 (test code = 1855) [facility], [address]: Adjunct History Instructor/Techni skip ID = [id number] for ANGELINA MOURA POCT-BLOOD GASES, [id number] 12:31:00 Test Item Value Reference Range Interpretation Comments TEMP, CELSIUS-POC (BEAKER) (test code = 1834) FIO2-POC (BEAKER) (test code = 1835) PH, ARTERIAL-POC 7.45 7.35-7.45 (BEAKER) (test code = 1836) PCO2, ARTERIAL-POC 30.2 mm Hg 35.0-45.0 L If pO2 is >180, pCO2 may (BEAKER) (test be positively biased code = 1837) PO2, ARTERIAL-POC 113.0 mm Hg 80.0-90.0 H (BEAKER) (test code = 1838) SO2, ARTERIAL-POC 99.0 % 96.0-97.0 H (BEAKER) (test code = 1839) HCO3, ARTERIAL-POC 21.2 meq/L 21.0-29.0 (BEAKER) (test code = 1840) BASE EXCESS, -3.0 meq/L -2.0-3.0 L : TESTED AT [facility] 6720 ARTERIAL-POC [facility], (BEAKER) (test [address]: code = 1841) Adjunct History Instructor/Techni skip ID = [id number] for ANGELINA MOURA [id number]-[id number] 12:31:00 Test Item Value Reference Range Interpretation Comments POC-SODIUM (BEAKER) 132 meq/L 135-148 L : TESTED AT [facility] 6720 (test code = 1542) [place], [address]: Adjunct History Instructor/Techni skip ID = [id number] for ANGELINA MOURA Culture, [id number] 15:56:00 Test Item Value Reference Range Interpretation Comments Culture, Urine (test code = URC) NF Culture, Urine (test code = URC1) 50 MSF [id number] 19:50:00 Test Item Value Reference Range Interpretation [...] EGFRCR) Estimated GFR: Greater than 90 mL/min/1.73 b8Vqyzvruz eGFR is based on the CK D-EPI [...] code = 14 U/L 8-55 N ALT) [id number] 19:50:00 Test Item Value Reference Range Interpretation Comments Chemistry (test code = LIP) 39 U/L 8-78 N [id number] 19:46:00 Test Item Value Reference Range Interpretation Comments Chemistry (test Less than < 0.028 code = TROPI-R) 0.010 ng/mL Reference Ra nge 0.00 - 0.028 ng /mL Negative 0.029 - 0.29 ng/mL Indetermi vincent Greater or Equa l to 0.3 ng/mL Stron gly suggests MT Chemistry - [id number] 19:43:00 Test Item Value Reference Range Interpretation Comments Chemistry - Lactate (test code = 0.6 mmol/L 0.5-2.2 N LACTSEP-T) Chemistry - [id number] 19:27:00 Test Item Value Reference Range Interpretation Comments Chemistry - Specials Negative NEGATIVE Method of sensitivity- (test code = BHCGST) Sourav minant: results should be repea erna after 48-72 hrs Positive: resul ts may be detected as early as 1 day after the first missed me nses. [id number] 19:22:00 Test Item Value Reference Range Interpretation [...] code = BASO#) 0.0 thou/uL 0.0-0.2 N [id number] 19:16:00 Test Item Value Reference Range Interpretation Comments Urinalysis (test code = [place] Yellow A UACLR) Urinalysis (test code = [...] Seen A UABAC) Urine Source: Urine VoidedType [id number] 09:43:00 Test Item Value Reference Range Interpretation [...] 7 days from now? NOPacked Cells - Lxapczzljcos0310-56-67 09:43:[id number] OP LRPC TRANSFUSED 03/09/22 0342 [id number] 05:58:00 Test Item Value Reference Range Interpretation [...] Urine Clean CatchUrine specific gravity measurement by teunurgzkcphj9708-10-69 05:17:00 Test Item Value Reference Range Interpretation Comments Urine Specific [place] (test code = 1.054 1.002-1.036 5810-7) [facility] pH measurement by automated test [id number] 05:17:00 Test Item Value Reference Range Interpretation Comments Urine pH (test code = 03622-9) 6.5 5.0-9.0 [facility] leukocyte esterase detection by automated test [id number] 05:17:00 Test Item Value Reference Range Interpretation Comments Urine Leukocyte Esterase (test code 75 Antionette/uL Negative = 95041-9) [facility] in Urine by Test [id number] 05:17:00 Test Item Value Reference Range Interpretation Comments Urine Nitrite (test code = 5802-4) Negative Negative [facility] protein measurement by automated test strip (mass/volume)2022-03-09 05:17:00 Test Item Value Reference Range Interpretation Comments Urine Protein (test code = Negative mg/dL Neg-Trace 19150-9) [facility] glucose measurement by test strip (mass/volume) 2022-03-09 05:17:00 Test Item Value Reference Range Interpretation Comments Urine Glucose (UA) (test code = Normal mg/dL Negative 5792-7) [facility] ketones measurement by automated test strip (mass/volume)2022-03-09 05:17:00 Test Item Value Reference Range Interpretation Comments Urine Ketones (test code = Negative mg/dL Negative 12886-8) [facility] urobilinogen measurement (units/volume) by test [id number] 05:17:00 Test Item Value Reference Range Interpretation Comments Urine Urobilinogen (test code = Normal mg/dL Less than 2 81907-5) [facility] total bilirubin detection by automated test [id number] 05:17:00 Test Item Value Reference Range Interpretation Comments Urine Bilirubin (test code = Negative Negative 95570-7) [facility] hemoglobin detection by automated test strip 2022-03-09 05:17:00 Test Item Value Reference Range Interpretation Comments Urine Blood (test code = 40611-5) 3+ Negative [facility] erythrocytes detection by automated method 2022-03-09 05:17:00 Test Item Value Reference Range Interpretation Comments Urine RBC (test code = 30419-1) 4-6 HPF 0-3 [facility] leukocytes detection by automated method 2022-03-09 05:17:00 Test Item Value Reference Range Interpretation Comments Urine WBC (test code = 99760-7) 0-3 HPF 0-3 [facility] HospitalEpit[facility] cells.squamous [#/area] in Urine sediment by Automated [id number] 05:17:00 Test Item Value Reference Range Interpretation Comments Urine Squamous Epithelial Cells (test 0-3 HPF 0-3 code = 53344-6) [facility] bacteria detection by automated kjpbat9756-13-11 05:17:00 Test Item Value Reference Range Interpretation Comments Urine Bacteria (test code = None Seen HPF None Seen 13632-8) [facility] by [id number] 05:17:00 Test Item Value Reference Range Interpretation Comments Urine Color (test code = Light-Yellow Yellow 07111-7) [facility] clarity by refractometry ilikiyvmz2305-75-91 05:17:00 Test Item Value Reference Range Interpretation Comments Urine Clarity (test code = 11109-4) Clear Clear [facility]2022-12-31 03:39:00 Test Item Value Reference Range Interpretation Comments Chemistry (test Less than < 0.028 code = TROPI-R) 0.010 ng/mL Reference Ra nge 0.00 - 0.028 ng /mL Negative 0.029 - 0.29 ng/mL Indetermi vincent Greater or Equa l to 0.3 ng/mL Stron gly suggests MT Chemistry - Cdtvbicg3304-71-82 01:51:00 Test Item Value Reference Range Interpretation Comments Chemistry - Specials Negative NEGATIVE Method of sensitivity- (test code = BHCGST) Indeter minant: results should be repea erna after 48-72 hrs Positive: resul ts may be detected as early as 1 day after the first missed me nses. Gsepisxaefm1302-30-85 01:01:00 Test Item Value Reference Range Interpretation [...] NONEMedical Necessity SUSPECT COAGULOPATHYAnticoagulant? NONEMedical Necessity: SUSP TETBBcwiwhkxxko9362-15-08 01:01:00 Test Item Value Reference Range Interpretation Comments Coagulation (test code = PTT) 32.5 sec 22.9-36.1 N Anticoagulant? NONEMedical Necessity SUSPECT COAGULOPATHYAnticoagulant? NONEMedical Necessity: SUSP ESZGLgrrztanfwn2539-84-58 01:01:00 Test Item Value Reference Range Interpretation Comments Coagulation (test 0.27 *mcg/mL 0.27-0.43 N * Referenc e Range code = DDIMTT) Units: mcg/mL of fibrinogen equi valent units(FEU)Based upon a retrospective study of [facility] in July 2005, a result of"Less than 0. 44 mcg/mL FEU" is predictive of t he absence ofa DVT or PE. Anticoagulant? NONEMedical Necessity SUSPECT COAGULOPATHYAnticoagulant? NONEMedical Necessity: SUSP COAGChemistry - Vyaofrm3172-82-10 00:53:00 Test Item Value Reference Range Interpretation Comments Chemistry - Lactate (test code = 0.7 mmol/L 0.5-2.2 N LACTSEP-T) Retype Verify-Blood Type [id number] 00:36:00 Test Item Value Reference Range Interpretation Comments Blood Type Rh (test code = BT) A POSITIVE Serum or plasma lactate measurement (moles/volume)2022-03-09 00:26:00 Test Item Value Reference Range Interpretation Comments Lactic Acid Level (test code = 0.7 mmol/L 0.5-2.2 2524-7) [facility] HospitalProthrombin time (PT) in platelet poor plasma by coagulation rdqnk1701-90-47 00:26:00 Test Item Value Reference Range Interpretation Comments Prothrombin Time (test code = 14.1 sec 12.0-14.7 5902-2) [facility] HospitalINR in Platelet poor plasma by Coagulation assay 2022-03-09 00:26:00 Test Item Value Reference Range Interpretation Comments INR International Normalized Ratio 1.1 (test code = 6301-6) [facility] HospitalActivated partial thromboplastin time (aPTT) in platelet poor plasma by coagulation [id number] 00:26:00 Test Item Value Reference Range Interpretation Comments Activated Partial Thromboplast Time 32.5 sec 22.9-36.1 (test code = 41884-3) [facility] HospitalFibrin D-dimer FEU measurement in platelet poor plasma (mass/volume)2022-03-09 00:26:00 Test Item Value Reference Range Interpretation Comments D-Dimer (test code = 94918-7) 0.27 *mcg/mL 0.27-0.43 [facility] HospitalChemistry2022-12-31 00:01:00 Test Item Value Reference Range Interpretation Comments Chemistry (test Less than < 0.028 code = TROPI-R) 0.010 ng/mL Reference Ra nge 0.00 - 0.028 ng /mL Negative 0.029 - 0.29 ng/mL Indetermi vincent Greater or Equa l to 0.3 ng/mL Stron gly suggests MT Nprbizjdb2188-84-14 23:59:00 Test Item Value Reference Range Interpretation [...] EGFRCR) Estimated GFR: Greater than 90 mL/min/1.73 t2Ohiwybkx eGFR is based on the CK D-EPI [...] code = 7 U/L 8-55 L ALT) [id number] 23:59:00 Test Item Value Reference Range Interpretation Comments Chemistry (test code = LIP) 42 U/L 8-78 N Rjwxkttbax7571-85-26 23:36:00 Test Item Value Reference Range Interpretation [...] (test code = 2951-2) 140 mmol/L 136-145 [facility] or plasma potassium measurement (moles/volume) 2022-03-08 23:16:00 Test Item Value Reference Range Interpretation Comments Potassium Level (test code = 3.7 mmol/L 3.5-5.1 2823-3) [facility] or plasma chloride measurement (moles/volume) 2022-03-08 23:16:00 Test Item Value Reference Range Interpretation Comments Chloride Level (test code = 105 mmol/L 98-107 2075-0) [facility] or plasma carbon dioxide, total measurement (moles/volume)2022-03-08 23:16:00 Test Item Value Reference Range Interpretation Comments Carbon Dioxide Level (test code = 27 mmol/L -2027-11) [facility] or plasma anion kjf6143-83-65 23:16:00 Test Item Value Reference Range Interpretation Comments Anion Gap (test code = 49325-4) 12 mmol/L 10-20 [facility] or plasma urea nitrogen measurement (mass/volume)2022-03-08 23:16:00 Test Item Value Reference Range Interpretation Comments Blood Urea Nitrogen (test code = 13 mg/dL 7.0-18.7 3094-0) [facility] or plasma creatinine measurement (mass/volume) 2022-03-08 23:16:00 Test Item Value Reference Range Interpretation Comments Creatinine (test code = 2160-0) 0.67 mg/dL 0.6-1.1 [facility] sq M.predicted [Volume Rate/Area] in Serum, Plasma [id number] 23:16:00 Test Item Value Reference Range Interpretation Comments Estimated GFR (CKD-EPI 2020) (test code 115 = 25908-2) [facility]] in Serum or Inouna2864-81-12 23:16:00 Test Item Value Reference Range Interpretation Comments Glucose Level (test code = 2345-7) 107 mg/dL 70-105 [facility] or plasma calcium measurement (mass/volume) 2022-03-08 23:16:00 Test Item Value Reference Range Interpretation Comments Calcium Level (test code = 28473-1) 8.5 mg/dL 7.8-10.44 [facility] or plasma total bilirubin measurement (mass/volume)2022-03-08 23:16:00 Test Item Value Reference Range Interpretation Comments Total Bilirubin (test code = 0.2 mg/dL 0.2-1.2 1975-2) [facility] or plasma protein measurement (mass/volume) 2022-03-08 23:16:00 Test Item Value Reference Range Interpretation Comments Serum Total Protein (test code = 6.0 g/dL 6.0-8.3 2885-2) [facility] or plasma albumin measurement by bromocresol green (BCG) dye binding method ([id number] 23:16:00 Test Item Value Reference Range Interpretation Comments Albumin (test code = 98370-7) 3.6 g/dL 3.5-5.0 [facility] [Mass/volume] in Serum by calculation 2022-03-08 23:16:00 Test Item Value Reference Range Interpretation Comments Globulin (test code = 92246-4) 2.4 g/dL 2.4-3.5 [facility] [Mass Ratio] in Serum or Plasma 2022-03-08 23:16:00 Test Item Value Reference Range Interpretation Comments Albumin/Globulin Ratio (test code = 1.5 g/dL 1.2-2.2 1759-0) [facility] [En[facility] activity/volume] in Serum or Wrgnzs7173-04-04 23:16:00 Test Item Value Reference Range Interpretation Comments Alkaline Phosphatase (test code = 58 U/L 40-110 6768-6) [facility] or plasma aspartate aminotransferase measurement (enzymatic activity/volume)2022-03-08 23:16:00 Test Item Value Reference Range Interpretation Comments Aspartate Amino Transf (AST/SGOT) (test 8 U/L 5-34 code = 1920-8) [facility] or plasma alanine aminotransferase measurement without P-5'-P (enzymatic sfcvri9052-29-97 23:16:00 Test Item Value Reference Range Interpretation Comments Alanine Aminotransferase (ALT/SGPT) 7 U/L 8-55 (test code = 1744-2) [facility] or plasma lipase measurement (enzymatic activity/volume)2022-03-08 23:16:00 Test Item Value Reference Range Interpretation Comments Lipase (test code = 3040-3) 42 U/L 8-78 [facility] human chorionic gonadotropin detection for zfewadntl6833-85-66 23:16:00 Test Item Value Reference Range Interpretation Comments Serum Test, Qualitative Negative NEGATIVE (test code = 2118-8) [facility] [#/volume] in Blood by Automated count 2022-03-08 23:16:00 Test Item Value Reference Range Interpretation Comments White Blood Count (test code = 7.8 10x3/uL 4.8-10.8 6690-2) [facility] erythrocytes automated count (number/volume) 2022-03-08 23:16:00 Test Item Value Reference Range Interpretation Comments Red Blood Count (test code = 2.42 mill/uL 4.20-5.40 789-8) [facility] hemoglobin measurement (mass/volume)2022-03-08 23:16:00 Test Item Value Reference Range Interpretation Comments Hemoglobin (test code = 718-7) 8.3 g/dL 12.0-16.0 [facility] 2022-03-08 23:16:00 Test Item Value Reference Range Interpretation Comments Mean Corpuscular Volume (test code = 94.0 fl 78.0-98.0 787-2) [facility] erythrocyte mean corpuscular hemoglobin (mass per erythrocyte)2022-03-08 23:16:00 Test Item Value Reference Range Interpretation Comments Mean Corpuscular Hemoglobin (test 34.2 pg 27.0-31.0 code = 785-6) [facility] erythrocyte mean corpuscular hemoglobin concentration measurement (mass/kts9668-61-10 23:16:00 Test Item Value Reference Range Interpretation Comments Mean Corpuscular Hemoglobin Concent 36.4 g/dL 32.0-36.0 (test code = 786-4) [facility] ratio 2022-03-08 23:16:00 Test Item Value Reference Range Interpretation Comments Red Cell Distribution Width (test code 13.8 % 11.5-14.5 = 788-0) [facility] blood platelet count (count/volume) 2022-03-08 23:16:00 Test Item Value Reference Range Interpretation Comments Platelet Count (test code = 237 10x3/uL 130-400 777-3) [facility] blood platelet mean usaegh0364-71-05 23:16:00 Test Item Value Reference Range Interpretation Comments Mean Platelet Volume (test code = 7.2 fL 7.4-10.4 36794-4) [facility] neutrophils/100 gxgexrfflu2900-65-24 23:16:00 Test Item Value Reference Range Interpretation Comments Neutrophils % (test code = 770-8) 60.3 % 42.0-75.0 [facility]ymph[facility]100 leukocytes in Blood by Automated count 2022-03-08 23:16:00 Test Item Value Reference Range Interpretation Comments Lymphocytes % (test code = 736-9) 30.8 % 21.0-51.0 [facility] monocytes/100 qenbktldta0114-29-13 23:16:00 Test Item Value Reference Range Interpretation Comments Monocytes % (test code = 5905-5) 5.5 % 0.0-10.0 [facility] eosinophils/100 buqdvaumck3054-13-12 23:16:00 Test Item Value Reference Range Interpretation Comments Eosinophils % (test code = 713-8) 3.2 % 0.0-10.0 [facility] basophils/100 ozjqtgsmiw8432-54-34 23:16:00 Test Item Value Reference Range Interpretation Comments Basophils % (test code = 706-2) 0.2 % 0.0-1.0 [facility] neutrophils automated count (number/volume) 2022-03-08 23:16:00 Test Item Value Reference Range Interpretation Comments Neutrophils # (test code = 751-8) 4.7 thou/uL 1.40-6.50 [facility] [#/volume] in Blood by Automated count 2022-03-08 23:16:00 Test Item Value Reference Range Interpretation Comments Lymphocytes # (test code = 731-0) 2.4 thou/uL 1.20-3.40 [facility] monocytes automated count (number/volume) 2022-03-08 23:16:00 Test Item Value Reference Range Interpretation Comments Monocytes # (test code = 742-7) 0.4 thou/uL 0.11-0.59 [facility] eosinophils automated count (count/volume) 2022-03-08 23:16:00 Test Item Value Reference Range Interpretation Comments Eosinophils # (test code = 711-2) 0.2 thou/uL 0.0-0.7 [facility] basophil count (count/volume) 2022-03-08 23:16:00 Test Item Value Reference Range Interpretation Comments Basophils # (test code = 704-7) 0.0 thou/uL 0.0-0.2 [facility] Khun0724-07-67 16:47:26 Test Item Value Reference Range Interpretation Comments Case Report (test code Surgical Pathology = 104) Report Case: [id number] Authorizing Provider: Nathaniel Dooley MD Collected: 02/26/2022 04:38 PM Ordering Location: [address] Received: 02/27/2022 07:57 AM Service Pathologist: Gene Carlton MD Specimen: Cervix DIAGNOSIS (test code = [id number] 3220) FuZzEwMzNcZnRuYmpcdWMx IHtccnRmMVxlcGljOTYwMl gyhwRgFMXouPIhI1Tqdyix QMrlMK5cAG1pyJkleGOoeC GlIFIxXnGam1jqp730lCTz l1xhFDGLbxoycJp2qLssW7 1nl2K9JidwA01abMJjDCB0 STBbRQYipCTfNKXhVZT4WV VqbEUbU6anUNKqFY9efbte MJscCJzrBJElqFN9YRBtiQ CbB7RvRSFcUWvdTVMjizh9 NyEdNq9oxXDslWopSRnjVQ SgTPZjEXzrITPeVrRdT5AM ImjZKIEBRKWAENGIAY0DP5 c7MFHgumy4MPVkBUTGUSJX TkUOL0kNBRDLKsEBYHKFFY JzS8ZtO1FEZM1LDANzA8WQ EHQIPRDVDU1LMEIzRUCwJK Lem57bRU06IAolMVS6d8yo dGYxXHNzdGUxODAwMFxhbn NpXGRlZmxhbmcxMDMzXGZ0 bmJqXHVjMVxkZWZmMHtcZm 7zaBMmkZncQuYdGTHne0cy qpGLuwljkXk3p7vuLRFgOc S4tIGvYXriC4bfqqChlFGo RWRwJMd8wT14KSSgbA2reP FdCKqljgNrHxI1NUcvLCVs HxE9SXWtgNUgLFMeP6xjZF QwXGdyZWVuMFxibHVlMCA7 nVpwe5T3sWRqpNFdxVtjHk QtBuCgUdQXv1XnVXt7pUcm O3JxRTGkSbO9cYFfIAHcOH oiIJMrXWOvkzL4sN89XRfh awL9yCVfu2Xls14rp562xC 4roTVhGDL5EVSfJBAstPTi NMExPAX2ULQiwFTdZ0fwUP RnVJ9zfujfBDhuHYbuDPHk lZU4LBPwlXHfQ3WpWJWgGQ xdSRPzrau1EmOpGv8omRFd mCeyRKlhw9bck3oawWKdTp u6IMClLpPsJmlqBXuwa4Ys n8jpIDNkls4uVYH4bFMxtS sbv1D4eONdEZCavQGgKQHb PH7zySPfPIDvlK0ulivqEF BnYnJkcmhlYWRccGdicmRy Aq3yfMtfSSK3IBmcJ3cueT 7kQbP8EIlaS2zdeI8pYSa1 JKioCBLlcLG2dkO4PVFzkL KlL0ZwwJ5fQSBvFJ2moxt4 l3cmDSE1ICblRYYaIzI2qn C6WJEblDHwPXHijGrhZRlm b341XFJ7NbWrXNJzy8ZfV2 EsuXcmE97tiOkbS77qSRXf zVzsvK0ljFebtL0qJfRaCg ZxBQvjqKlbYV0lMWMlR3xa nNMdAKSwZVKzP6huBwQmcP 3ibLzcZGktfuRfEZAhAhg2 QFZznYNwRDBsUao0QJIsVF BhS84usgzwFZR9xU2lt0ap b2DeXMyoAEQ1QMGsz65tAI rqjmG9RWmzAv00DDsqDGI2 LEbrPYH6bW== COMMENT (test code = x9zcsMTxIWBohAS2EpEhMR 3358) Gdn9wza4YebGYdfBHiBIrs rLMewfYjuk34mPH2tP58MP 5xWYNjNwD1VQLcizN6Jfq9 CCGhLHYrxVEnE083q6ckt1 qxpyQkoNG8xLicJSXsacbk HhL6ORbrMIQgtffiVGu5QY toKWRhuXV8AVJviGZsL1Oj ZFYjKX4bvda9KNW7EUjmGE CdIeL4FQTowCCgEHYduJvi GLrzm165VAZ6NbDqGBEecl UkrFprtT1uWxNvGXIBkXVt aNG6lEWtxRqePVgbp1Osif mcq2WtH7JsqvdsQSsssIIb geStqpPju0GyKH8jHCwgYH V8fN4iTLBju7ztBCNnS2Va FD2eZ0Dhj5rnLSTqr2dike AaZUC0qYRxPDBrypSlayIv DXZ0wFOvtYQycAYtrOEekQ Srk0MtuPS1tpVzshTuuLJ5 ZIGyf8FxcF94TLKex08fXK Bhcn0= CPT Code(s) (test code z9gakEXaWTJucZH3LzImND = 3351) Jqu1bmn7BfhFEtdPZvSIaf mZMsbxEapi63eZH1uF77TU 3ePEMjUhB9ZNAlxxL0Ded2 VOLbDUNtkCYvP905e0drx1 iwvqRliMD2uItsYKPrbvpi KcK2AMaaDHZaogpsERj0FX mxYSXbzXR7WUUkjLAbK1Je AAWhNS8jeyp4XWJ2MIacFI AeFyF2WEGjjPIqRVQxaFwa HCfqr686UUB9DzHkCTBqfe ArzCzrzR3mRnHvBBZ7FXCg NVxwYXJ9 CLINICAL HISTORY (test j5cyfNUmOYUroUQ0KfDbIR code = 3356) Sqe6npk3FksRFepXHuLZeu sTUvrsWtgz65gYE3tT97WF 8dVATrDeF4CODhddE3Feq8 WJRfCRYfoKBwM721c0woo5 rguaZboUX6oVxbIQXmloiw CuB0LZmjOAEefbgvPMb2JZ gpZNSzsTH6ZGYcsUUjY3Io XHZkOW1avhg4VQG1HDaxRF JgObV0YPNrzBDoXQNvkNeu ANvfi239VNT4YpEdNYQjiv XgeUhzwU1gPvCrLTVsEWH1 Hc9sSF5mOT4qbKIgkmodxk XcwkMrcqBrqrWpqgR4VHWa m2j6jFPMJXp6KB7uZZdHPL XrmmLcQskbuK5mhHjntRFd GG90uX2ymVNqp7ArfOZpSK nmjYbimdWjxbXcORymbW5c iRdtYU6fRmS1SLbpygMaIK BpCOEhbO6dYZHyr1dztdAo YmRvbWluYWwgcGFpbiwgU0 4KMVCrwHwoeQcqCZNfEX1j k3QwjvGaDIHeRQJtB8GeYJ Uwz3FgISI9koIqPYHxFES9 dPW6h85qtKcdZJFiRK6gAN MwELegAGGzYQylGA8iFMAj bcHqP8JfBR9zl0Kzo1q+b2 9rmM2wV2ayW2krUPA0 GROSS DESCRIPTION (test l4nubSOuJOPydRPRAHZrE1 code = [id number]) eetqOoWAVvgJHjQ5Jxcwqa HSibDE8iFC7exCggtZYfdO XuHD9JMWNxLzJlXWKvkJWu emPdRbRdJXYrjAMofHY2XC XyKP0rfzuvXEocWDdcUWOk wxA3KQCsdITuJ8FySIUwXD 3dcisdQJZ9GLyrxF2xgaHZ IbjsXw4wqQIcyPczNhVpAf NoYXJzZXQwXGZuaWwgQXJp QSv9hZ4KUcckFTT9IBFTEd ivZPIhSH7Qp4zzLOYrvJSy PLB1LPznwTJsWJZnFYRmIJ i9FKZrIVwlyUJfZM3abBya LhgjwYkbo4PccIFrZQczHT XpRCCpNOgjJVFgCK7CHdUu DYF9DJh7FDQlSWp6YWp7EW 3KYmAvWOBzKHM5YYA7TxQd ZYa4BHivVV8VVUC2LHF9RS pkUiQ8JBB8QpJmZFYqDqZm XGYgQXJpYWwgXFxmbCBcXG 6igLhsyBPtlnGPMhPBCDU1 aXguXHBhciANClxlcGljTm VzdERvYzEgDQpcbHRycGFy XGxpbjBccmluMCANClxsdH AdkXvcxpOsCKBsO2XfhyCa ASyxQKFtwg5swIxhIPpjVe QsPDDss5n1vHH4hEYggVO7 tMAslZnxXpLrKN0diJBuDJ 2iOFfkGQiscdQzr4UcYF98 bWJlciBhbmQgImNlcnZpeC IgaXMgYSAwLjUgeCAwLjMg cXOcUvCzA63erXJyWTjkQC yco13mxUP9pBJzlUDmJfQu B19azyQaHBSqgJgkUNE7xJ LpIZCvl04sYTI6Ki6pmJVh OQIvyfJ9a1StFQvmZFTdXv pdLNPwFZjmnFRtCK8OC5xn tWEvHHIHgxI6whjrTBgYOC UPRJCmVCQWFMiitBbnhK6l KZwhaI6hXD1WYMKkIVcmJZ YvqXCLGMN7UP3vGJltdXOx bnrlOREfF4QmX2HwdlZhxP LlGLVwdpFfp3myUTO5YMPb yLLopWZgRlLxTgueAVD0JG yvm1xsBHX1LTEpqWBraPMz OGdbXaEaTstgJZGeR3FjG6 AkhaJ9PJk8 MICROSCOPIC DESCRIPTION w2czzLYpEALwlMV7JuBzYT (test code = 3371) Krq6bym4AssMIiwJZsIUvb qALwfvHvqb57cTW3kL30RZ 4gEADsHoQ7XZVkkqH8Qdu8 AREsVXCofRBiP709b9tyr4 xiaqQctGE3jBuxAQZmqrkb IxG7HJtvBYJtkjeaNOc7JA lcPANykJJ1KHQkiPHpT2De FYBoOV5ucnr4TVK5TVrnML ZhFvK0IJQehDWgAJIurBnh WZcxx497TDJ8ZqVvAAQdek NpdMiddG2nZeJsRYXRCMTu f4DxONYeWRPzyg2= SPECIAL STUDIES (test l8erpEHcAWJat2wtIDZxdR code = 3376) FuZzEwMzNcZnRuYmpcdWMx RAcmuzZmCCsfv5WxY6FrZi AwMFxhbnNpXGRlZmxhbmcx EUKzUFY5yeLcPGLoPPreXX DiOStkDm8ezDJccQbwOcNn AGFxz8xowlAKcvmovVq1t4 hyKHYbAoF1gVAiSTmhO9yu csHpeTUlT6XlpKXvkDn7c0 hmVuDgXjS7hGNrEZeaS8ls neYitHEwGVCkCZk0nM26ZT WfhE6hdZFpUWocfyLoOyS2 HKmpUXViHkM1YHFcfLOpFR WhC0nxVHNcDEgfMMSlDXqv aJAuUPP4bUwvq3P3fFTitJ FimVlkJwJqDkKfFgARe3Ea TEl9cWtiO9ChOLDsJeF5rO QgUGFyYWdyYXBoIEZvbnQ7 pFbfpmTpf39keFVoQVEpUR RfZbMktCxwIJIxTXPCt3Mx uAkjTQJ5hPm9hDxpIdarBG J9Dlr0WE0taa70ask9oBpy KPWruprkXkF0BGpeDFUebe opAAq7CZwrBDBtnNL2DXJm wZYxA5BqWOToZC4ulya9AZ D4MHsqAKNbXgT1RXLpzKLx UQOsoTydJJlse023DMQ4Kb YlME1nG6Eho7X7vT6zzUJa YLVtxMArNhYuSHBcin8ojM OrJBdfn5VuUSF1lcY3oWRw oQQaHJOzBK71Slubo4ZsIg azy9OnC72laLF3FRzwg0as CY6mLcN0bpLmDUexp2pacF 8pDnQ3PAwjGQ3bAU3eUJGc tO9lyvliUJSgNvDujasxPC RioTsfdmVuZh3jaZhkBGR2 AOfgI3mtzH9yCkN0TYlmJ4 zzpH6yIIe6YHqdbSQ4RBBe wD5fXU1pibful8enJUgaKK xoAJKwsaU6iyL3XSPeyKTf H3RhfY9lUCSqHA7gxhgtx7 fbRZH4LEjpTIAcDML1VtCt SPYhy6Tqbth8FnGoq3CxeU OeJAyhL70ds935GNDpbgOv Q4inyBXkrkqipFSpstguKJ mjdpU0HWYtMHByGDxeUONk XGZzMjJcbGFuZzEwMzNcaG ljaFxmMVxkYmNoXGYxXGxv M6beLnPsX1PkTSLuVoVrGT kuUHvvwTBgrIFalEP6wB9t QK4dBFMyaJQfE8JoOYZpbd QooWZgGPI8eLAtrZWfZY7x EBebnZIdj1iay6ZpY4fohO olfPY1SG5qBNUmLPJoTSjj t9EmxQ0gJmppuZClnvutRP xmczIyXGxhbmcxMDMzXGhp P9yvLhSbLDCccVubHSfeg5 NoXGYxXGNmMlxmczIyXGx0 cmNoXHBhclxwYXJccGxhaW 9yOqVjBbZgVhpxBB7zJGHw A4nvpIQnOGXeNGObZ6wfSt FnwD3rfLcaKUfbTrCmYwIc UaGAu865nw6fRFOxxTFkbb DWtFCxxY5nVTfeLLooHFjn pVRwVVdsg5iySCEgd1r5fF TtJFTkvwJih2ufYCsfvoDv XYMrpGRkpDWzCAMwb64oKC uubOttdLkfGIBpv3XldAaj g1JeCnFzNAghf3UbE72mpZ JvbCBzbGlkZXMgcnVuIGFs a92iw9qoKOXpNbT1yDThdK Q6tPVdpLZzk8RplIkcIBEt o5ltWWMlqp1kdooyvXPkf4 SgdZ8klwifLMhkyEWmtsZi FRBzg0r1dYVpBBQjCWPeJZ zgjAd5JRZzh277uh7wooZ4 dJWhWQN0GEvhYUWxFPBrrn UgZXZhbHVhdGVkXHBsYWlu XGYxXGZzMjJcbGFuZzEwMz NcaGljaFxmMVxkYmNoXGYx EMstZ3nlXwJfG1YgDYNqTg FfiLRsN4cuiYKnZZLtJGrs XGYxXGZzMjJcbGFuZzEwMz NcaGljaFxmMVxkYmNoXGYx RNnaP4qeDpPyR2WqTFMjGz IgIFxwbGFpblxmMVxmczIy XNtfvbahSXGmXUkeF1egVy LxCEEguEwiEYnko6BgQZSl OTHiQbalzaPaXAf9mbAuUT BhclxwbGFpblxmMVxmczIy FZoghaofOQFvKKneD3xfZi XjIJCzaMkfLPguu2DlZWIh XGNmMlxmczIyIEltbXVub2 wsw8EtH7rxiXkopGL0OLMh Z4njjEEwjDP2VSA4rN9hTL sgbhZvSYTjp1OvQSVcGPFf WcA3qQ7bIMQ3DtTFiCrmDB BsYWluXGYxXGZzMjJcbGFu ZzEwMzNcaGljaFxmMVxkYm SaECLlHFscL7ktSqYuE9Wd CAVjUtNzzYfsWFgvIBn7Qc xwbGFpblxmMVxmczIyXGxh tvupYQMtVVnrL6igZmSnZT XdvZjuPQnps5KlXLPoHGXg MlxmczIyIHMgTWVkaWNhbC DFHG60GZPoDECpqMoruH4b xFQXWUUttuB1w5N0LTaeBD HbHOk9WLhijxBwMPUqfS7j UGHmQP5eHSn9zrFeQYIce2 KcUF2uHVTkhLIfKTO4BKFa w6HrW6Wxj5HzZKBuWEWuff 6tbjLtNvVQhILmCOPvov77 OWZvHG5tS0ekXDJdKTBqde PgoCQfd6QkJCQxbKU7xUQq IL8LEuRTo98tOOUfHMQGgb NyRFRmrHnntIT2ykK8hG0w LiBUaGUgRkRBIGhhcyBkZX Hriv0aelPsBMAyPAGyz6Zv zTCfsHYactMvW4Ugr6SvEL Mjkl41ZVssnCZwjx58LA3d Q0Qtj4TdlM6wRVgtWEMsu6 GlmPTxhERlSGWur3SxF0ea kfdkOTkkvFUscU8eLFIuNS m0HWBwe3AhHKIsp4YrFuOr hlPbMMQnLTTsVEDtzO67FE I9cAhfuEzcajSrMY6dVCFw aqFuXDKbIHIniB8qSUrsih UcZKVbfuK2h8M4VZynNQHh gjNxHftxUBI5tbPxwaY8iS BfG3gjtcfrYTonDXBfs8Nn mG9dfALCgVUfu2CunEPbnZ FSkFMiOQ0pqnCvBC7gEMZ5 ODggKENMSUEtODgpIGFzIH Q9ZOiqDqvkSLY6ruXlHROj l0BsSVqaH3anZ44zzEaldK c8hFCzkPctbFSwjZMxUKWe psK7j5A8PFKax5YhuxvhSK BsYWluXGYyXGZzMjJcbGFu ZzEwMzNcaGljaFxmMlxkYm DdSGDnEQgsC7jnQgCyLrCx RndnLXW4xR== [facility] Yslz7796[facility]56 16:47:26 Test Item Value Reference Range Interpretation Comments Case Report (test code Surgical Pathology = 104) Report Case: [id number] Authorizing Provider: Nathaniel Dooley MD Collected: 02/26/2022 04:38 PM Ordering Location: [address] Received: 02/27/2022 07:57 AM Service Pathologist: Gene Carlton MD Specimen: Cervix DIAGNOSIS (test code = [id number] 3220) FuZzEwMzNcZnRuYmpcdWMx IHtccnRmMVxlcGljOTYwMl bwddCcGDBgqXShA5Svnpkw RPbqEB8lIB8fxKiovDWwoN LdDKOjGiLpn5eph564bLPu i6rvJLBTyhdsnTt2rGrmI2 2gh4Q9WsesJ71eqUEqUPW6 LKPhBNMoyOLtDAWpBCG1XW EeoQDzD2xwUUDfPW9zblhr ABqqROskLBQmnEE3XSJjrE VyQ5JqOXMbGQaxDKYyniu3 LwPmYv4ylXYlhPzyGFysKR GcCYFrJLhaSGNxGvJoR5XU AxaRPZZBWHWYPFFIUW4NA2 x0SQBoqfy1SGHrGUQRSGIU HfOIN5rKCYGNJwNZRSHYPQ NtG5ZuW5VSWT3FMUZlA1SU VAMQJGBTIN9PYUEuPAKrVW Fdr18vFK41CDtrYQA9s8wn dGYxXHNzdGUxODAwMFxhbn NpXGRlZmxhbmcxMDMzXGZ0 bmJqXHVjMVxkZWZmMHtcZm 1bfMJkiXlzNsMmFROkl8fc quEDdoeyzLl9m8soXGUmYe T8cDLpEMikL3ixpmTzvKRo CVQqYGp4vG42JZCsfU0keJ LkOQjbsyKqGdA4IOvsSMAj KnP4RQUlkCDeQJPxA7hyPP QwXGdyZWVuMFxibHVlMCA7 tBdve2C7sFGmrUYcqOxzXt GkTqOoPoFUl2PnHDm6eNap Q5IjVCIeKiK8pIYuJWSaGY fnJERaHRYwixI0zD24BBbs xaB2vWXgc7Ket93pw743pO 6ruXIfNXZ0GNMaLPMgqMWs BUCwFUF0TJYpaDUwS1uiKQ DkZC0kbwatYPtkDZbqMAEj yYH7ZYNjeUIaX4JfFDLvAH qmYJBqxrc5XdAsMh7nzEZi aNkhOMqug9exo6oefUCxHm z5UTKrEjJzXxpfQStrq2Wi y3owBPDvbj8sLKU1bERsuE eod9H2sFRbZZYwmWIxJZEw JC2xkVPxUQPtwK3awcodKD BnYnJkcmhlYWRccGdicmRy Wt6uxEpaOTL7DAfeA7xnoC 9xEmE0WDsjK7jepR0wMWm4 ILdlUADppWJ0ogT8DZKcvT IjZ0ZqwB5nEUMnPM3owcy2 x7rwZLL1XUepSOWmRsM5ao T1AMEhcOZfVRMliLyfABsh s194UZH2RcUhTSQmh8HnC1 GlpBvgW42yuWznE84kOGVw aCnjmZ4paMwjrY4mQePbMw JtJTcteWztRI4jRXMqB2an dNZmXHTeDEOvT3eyQxEbqR 1nxQgtSEhcnfDmANSkWyw2 CGKtmKHnSWLeDsk8PRQpGM JuL76xmcngJAY2eT9zz1cv v1IcVJqcMVV6LJYso63sFH lkezD2FCdvKg26OChpWHE2 WUmaPCB8yB== COMMENT (test code = m4mcpRVrSOFpgJG4MwCxKA 6422) Uyt3lsm2ZsjDOkqGKeRMdl nJAyohFrrb12eQF9jH13VH 5qVPUcHhB7PYRkkyP7Irt4 RSYpAUOpoANoQ070k9ief3 fyrkBxgRS4kEuhGHXbdnci DkE0ONvsHPNsallwNPi2CJ vmKZXyzQW8MONqyWUrM8Av TMZaZM9mqjy0XTY4VLaxQI BnWfB1NQQmbIYiYPXqqXxu HQlyz098SLA6OrXaOBXoiq SdnWcocW8uDoWfAQGZrHJe iZM1qJZtsHdlQZfwl8Vpua fyf0GsM1CilqcyWGyvlCTn tpLcuqVwu0YoBA9vMZpmQN Q2nL5jXXGkn7thVWZbI8Qy FB3kI1Kyu6hbQBZxa4pkru PhSZL5eTZgBVWidoStrbHh XCU4yKRzyDCceGJfyCNzzQ Vce1AbiWB3nbQherClxCS3 HEApc9YguT85BGXmw93zFU Bhcn0= CPT Code(s) (test code o5lovJOtOEPmfMK5FtGeVI = 3357) Kgq6mdd4LqjFKzkEKmLRlb nFTxfkKnji58aWX2kF53ZF 8xZTFeYzA7TRVmtrE3Hvy1 COPhQVUasJPtB950s9nfw6 jeaeJqkJP1jPsiWCWwcxzx UqA9LRetIVKlgzhpXUq8ZS wxFSLupMQ3VUZbqSQdU5Pt EVThSO8vcfi6DHO7YAdxBH VyPqX1VWXzvXDgAALreZjk HKper560NIG4CxMbPMSreo UpxRmqwA5dCfFuAXC6YTJh NVxwYXJ9 CLINICAL HISTORY (test n4rtcDZsIDKsnWD0WuDqSG code = 3356) Div3zvd3ThsQYdeZVuBEjx kHMfgeKgeg35nUI2gH20SI 8pLIYvHbR2VDWvxoK0Tms9 LQWkHRPqvRTjF562e8vom8 tcvfAvtXA6hMsjPLIsmgxi WdF9RQisQBKopuxtHNm0TI rxBFGtpZN8FPPjuWWkW8Rf AVMiDW0fstx0TLZ6CNrxIT RaVtT4ESSxfWZzMDYytWxh SVmbv292WPX0MwRnWYOveg CsdKymvO4hCwEwUOUjMYE3 Dc9vVP9qUO7iaNKqttudzf RqujUznhQfsbFojzH4QJZp l5r2kKANIDb1TL9tTJlGYD JpdvOrUxchrG7ybHoicMSu HS75dC3reNHqx8XcsGVpQV zakJbfnhXypvXoXIpyeX5k oHboNB5jGcF2QSqcbzTiXK CuOUZwjQ2vJEBnv7rhqdPs YmRvbWluYWwgcGFpbiwgU0 3SMCJseMqcpTckPFIeYK1x d0PxmfEsNVHjRQRnD6MmSX Ymq3JvLLX3xfWaFXSgTWC9 cKO7h82qfTfwJSTlFF2bFC JkWYojEFFlAQftOJ0hTLTx inKiN6SnBF2cz2Pqo1c+b2 4goH9nS6uuH5plURU9 GROSS DESCRIPTION (test f9wjuNRvUAUxqXDYKHGgC4 code = [id number]) kjjuYiMIFhjTGwD3Ssksty ICjmXA2nMQ1yaAzhdWKgyP DrLE6HTAZuRyIgXSOglVKx qrDhVaJiESExiGQutXA6CY VgNL7gfggyUEjvHMqxUULx zdO3GSPvbYMvF2EkJWIuDW 1ceqroPFV3MDpudP0elgTA XtesZj7irFWfwPzwQdDrVg NoYXJzZXQwXGZuaWwgQXJp RBo8tN9FVhhqTCB3AUQIWn oyPABjTL5Yq2dgHNJkfPGz XWC1NXmgfXTtQSToLAWlPL r6OSQgNIvhmOVjBE2mzZps EuaaqGbff0EzeSVyMSreLQ SqHWAuPOmhVDPrBX4TXnIm XNV6NUu4LMDdBVg0DTg0ZU 3GChJxOPLmDNW8SKV1KwEy MXf5GNbkGP4JHHH5QPQ3CN juCaS2WIT3XcFqVDOzNqYo XGYgQXJpYWwgXFxmbCBcXG 0yqYytnUXvehFRLtRECAX6 aXguXHBhciANClxlcGljTm VzdERvYzEgDQpcbHRycGFy XGxpbjBccmluMCANClxsdH KtqJtihaFuBWCkJ9VkhuQq GWjzJZKevn0ykIamUYwaYh FaOOXok2r2tZE6kSJtlFP8 vDOsvLueEgNmVM6ujHFjYV 5tLWmoWXunbdZkg7EsIZ85 bWJlciBhbmQgImNlcnZpeC IgaXMgYSAwLjUgeCAwLjMg gVVnTsEiX84zhSNvJMvoEX nju85yvRS9vUEkcZOuWqJj C65dzyKvFCIuvNzvOSL2kY BmDPTzw61uWCO4Kz0btHEv CHGffjC7o1KcMJfpFCIxZn zuZDAsZKgfcJSpIR7EX3up mNCfHUGFydG0rfryCBzONW MTJBQpNDBSGOzthGcgpD0n EIwouX2jTT0LWFVbDLueIN QwdCARHIQ3OY8tEChzyQBc ctlyHZNvH3RcU7HhuzBsmM YqJJQsfuRbk5nmCSI7HYVr zDBfwJOaQzVqBypqYZQ7IB yag3mmNXK2VDJgwUWraAVd AVuzOlUiNgelRJOrO4EvC0 HrruR6IAr9 MICROSCOPIC DESCRIPTION w4rtgVYaQVEfjOM4IdQuUU (test code = 3371) Hcu6zze1AadTMfeQWuZXyq pSTmwkYxpr96oWR9xO53DZ 1bDRWiNuS1JFVmcsP2Gvt0 MIJlPAPivEOpR392c5qkj2 fwgwVpsLA9xMeeBZMeqoie ZaU0FQttUQTgrkssTLa8LZ vdWWGuxHQ1BVSxqCZfA9Rq UNTzLG4mvfi3GBN1JXccPL AzUbI4RRMaiOVvSUDyoWum NJykb264IDY9LgGzQFBrji XpvDfgjH7mPxEaEANSZZJs i9XfKDFbNLHlxo1= SPECIAL STUDIES (test w5tksISxTVQap7dmMGTicQ code = 3376) FuZzEwMzNcZnRuYmpcdWMx CAghxvMbRAmmt2SuB4EeEu AwMFxhbnNpXGRlZmxhbmcx CQOvZIR8agQrCFNrEZqiXI HtCSmdAq6hkAYhyXhxCkBr AOYuv2dwmfWHeslpkZo2r8 koLKWfUrF0pYWtBTyfF8up ywDqjCVeA6EmzCCcrNt7s9 wrIdYtGzS4jYNuNPzlD7tu keMfdUUfSJRiLOb3jE87HD TzyS2knQYuKBuknaAwYkN7 CSqsUHOzLjZ1HGVffYIsGF KjZ7cjOCJoFTfyRMQbWIgq kPOaOUV8hJmfn2O6oKUuaT RnbJiyIsZpRdMyPhSNg0Zh EKt3kIybX8LuXHGeFlI0cO QgUGFyYWdyYXBoIEZvbnQ7 pMnwkuYdf89yzYTrCRZfXP WqWdJhtFwwOMXhYFCRy4Rw bZjxKGL9nPt6fLujAdlrXM Y3Fql0AW9ibv47hvs5qQlu XNQudqdsDeE3DHfqCGIwil yvCWt2JQwrYQRzrYL2IQKa eWFsT9TxKYToZK8uvrq7DG O3VIrbLROuGyY6JAAgnOQn WHBudInsNUjih378XPP6Iq HqOS5dT9Kdc9K0dP3isENy DDVhvNItToVhINAgfk0nqU YiUPzuq9EfHLZ1asG0hKBx bVOwGZPrHM85Iftrn6OvVn yka3ZeU72mxXR9SXpzz6td DF6fAiH2kvXbJVgix9llpS 7jCsL2ZAhmIR8jRE1cKLHt tE4cnahhNHFkZmJtcrigIL HjhGklbuXtEd3asTmsCWC2 HCmzJ5oalJ2tWdR4AYtdJ4 excT7mHBk1WRbufPI9WCVa xM4mMI1qozztj8urJEueMD nnRJJcvrB2lcS0ISWboPDy S7JtoN3tPJTpRO6ycjjlq3 seEFG9QYmkEVHjXAS3VyRm ZFZjl2Rtjss2WiTmm5AzfC AmOGgyT24nw882MHZlexDm Z6dqoWEbputhjKXzmxpcBS ukipY1ROXhGYKsAEiiMDGu XGZzMjJcbGFuZzEwMzNcaG ljaFxmMVxkYmNoXGYxXGxv U6moOsNmU3RpZIIfUaDwKG goIZgysYRofHLoeFX4zP3r TB7cSJUewFRqJ2IyKWWbjn ZfnTQqXSI5sVTsfFXqOB3b AIdwyTRev7clm8UuY7exwS jegTG1DC9oIKKhDVBpAShm t9JkzB8uOpizkWWqjmbpUH xmczIyXGxhbmcxMDMzXGhp W6tbHaItKZVibEjtAXrqk0 NoXGYxXGNmMlxmczIyXGx0 cmNoXHBhclxwYXJccGxhaW 9tMqOjMqYdGlilSO3zAJLj Z3dojLJuAPRiYMEoD0quWm FibL4apZyvXJjyDcQsGfTv HqCUp948ds1aOSYqlRXyqy PBiDBntW8jRKgmBVyxYGvr kCNaVEbbh7lcJFQfz8w4dX VcIAWxkcLsy3zaVXnzjcSy NBOqlXGksQKnDELea31rJN fqsVjijUhjJBZhl2YtmDlj e8EsEnNpEUykc2RlY05wnS JvbCBzbGlkZXMgcnVuIGFs b01ux0jnQNQiFvQ6dVJgnR Z6dMShuNGeo7DdcSmsNYLy x8emZEFovv6jqfcbwPRui0 DhsC9jqfgoFSoxvDNuepXp YCDfl9b5gRKyOMBnHZZtTQ duoSy4ILYyz422lg5zpmD4 nQJoMUR6JVzjXFAmLXOedq UgZXZhbHVhdGVkXHBsYWlu XGYxXGZzMjJcbGFuZzEwMz NcaGljaFxmMVxkYmNoXGYx HQdnW3qrWrHlV0VqGKFvDo UtoQQcO9jcpEZkUBFxTWvq XGYxXGZzMjJcbGFuZzEwMz NcaGljaFxmMVxkYmNoXGYx YHsaS8pmGyUmO1NsNGTvOx IgIFxwbGFpblxmMVxmczIy LLpnnxohURUdFUlsY8uxZi ZbAZEsaIazSThku1HcXNBi EZYhSozxpsEoBVc7lrJsQF BhclxwbGFpblxmMVxmczIy QGfskuqvNWMrXSpnV0veYb MhCOSapNteKOucr8ZfZUEc XGNmMlxmczIyIEltbXVub2 xsi4QzZ7kiqKganHX9TLWu N8popCDddJI0XDN2qW8iTX ukrrWdUPOci0LnWNEjGPCf XuV8tK4lWAC6JjOPrPuuVW BsYWluXGYxXGZzMjJcbGFu ZzEwMzNcaGljaFxmMVxkYm GxSKTfLKtpO2jkBiNjA6Go CWUlPpLhqXpiVFgoFEl7Zj xwbGFpblxmMVxmczIyXGxh lcyqIOFbKMwlD0nkJoWbSL UoiAvwTImjf8DbGVZcLHVj MlxmczIyIHMgTWVkaWNhbC ONQJ26UBXcNSCowJxecF5b fWGIVROrbbH2w7Q7HMcnII YrXVt7DMvmjrOcXWOhuD7x UQZbEN4xJOi7krKsRVYwj0 ZuZY2kGYKtrEYbQHX4IEZu p7EsK9Lzj0JxEAJoAYFfgy 6cbyFvAdOJzDJaGEPhie15 KEDcES4hJ1fwVVZaWTAtbx ZizAAtj9EvRAYjjOP0vEVi WJ6VGuDNb62bGWKsNITGlt FbNZJpfUzheYP3zzQ6gP5y LiBUaGUgRkRBIGhhcyBkZX Sgia7peoZhXZVmWFKvt7Es dZGpjZMhyiXrD3Qpz3ZyVF Uqbx99RCzgbAQdgm45KE4d U7Kuk3SpcC7tJXyeTXQew7 VbyHUzrUDuMFSuq4YgZ2ov bjutTVackOZjwM6yXAFmDG p3RRSyt6KyYIVyh7ZxUqUp nzFaPNDvYFOnYDLncA46SD K8tZjsuBfqyuQsRK8tQGAr fyBiDOLlHNWomU3pFBqwdg HoIRTnhdQ5b7M6LVvlUWDu jbIvPyaoINL9ybDgrxM6zE KzB4adphobWEhrAIFvx6Gn rE9suFFZhXHof4AzfKJqxA TGcTBwGR9ibrEvUO7oQPB9 ODggKENMSUEtODgpIGFzIH O2VHekYhqsNJY1paLvLPLp p4XaQCeuH9gaM89aaVozjK g4vUVbwRqkmGZfnJRwMQLh rdU2p2H6AGNze9MmaubbHK BsYWluXGYyXGZzMjJcbGFu ZzEwMzNcaGljaFxmMlxkYm JgXBUaTRieF2xpViZgFnQe LwlfRXI0bG== [id number] 16:47:26 Test Item Value Reference Range Interpretation Comments Case Report (test code Surgical Pathology = 104) Report Case: [id number] Authorizing Provider: Nathaniel Dooley MD Collected: 02/26/2022 04:38 PM Ordering Location: [address] Received: 02/27/2022 07:57 AM Service Pathologist: Gene Carlton MD Specimen: Cervix DIAGNOSIS (test code = [id number] 3220) FuZzEwMzNcZnRuYmpcdWMx IHtccnRmMVxlcGljOTYwMl ojuyCnZNQjgNVqD4Spijof TTwpPM4gGE8pqKpwaDLvwP OwZIMwKmQdq1poq694dRCe q8rdRTYUajebbDs0nGjiT6 2ep4N1DemfP58irMPzPKP2 XIZlJROqsPAkKSShACQ2LY AbnGPvT9ddDXUlWL1ubign LXrcXZwxRXBhmIS6XRYjlZ GuK8DgMFVvWHogNIGeicl8 MjFeUn0brBKlhOfqQOzyZY RaNWKnQVbtUKYsYsYcB8PN YfxPHKWEASLUFXHRAZ4GV5 t2TJRwbsl7WWFcXHFUHOFP KqTTR4bAPUOXQdWLJHQYMZ EpP0HxE4JSCO3KIPVqV9DG RCYCQTXATK8XSUGeSFUnPK Mza50oNN55ATkcOPU5s2uj dGYxXHNzdGUxODAwMFxhbn NpXGRlZmxhbmcxMDMzXGZ0 bmJqXHVjMVxkZWZmMHtcZm 7mgKFhpQnzQxLfXVUea1bm ahQZahdnqUk0k3agEIXhAu Y1gFPkPOceH5xxucLuuVAs JPNcZPn7eC82TNZmrY9tqZ TaOUggczIbFnO1GRxeESMo JeZ0VVEsfXVaDINpZ7tzWH QwXGdyZWVuMFxibHVlMCA7 fDuwa9Y8zPHifKRqyYzsYz HlOgHdEoWQz0EcDQu4qXek Q3ItNHGdOrL7uWPqNCUwWS tdNFEzVHTezaS3uV02EWab bxV7lPTeb2Pil31ej452mI 5kcXAfYRZ3LOEsNXLwjNNq IGLoACY1CWYgkTMjE1vcYJ EiQB0cdzdhLQptBXhnFRGl aBA0ELMkpUQiG2FdMZEyVP vfEEIrjwf4AkCjBm3cnQYf hWxzWBnlm5ckk4ojeFLaWq b7IHJbUwNtVgibZYuag4Lc c1fiRBMkkc5rKFD7vYTuoZ qci7U2aRJuOPFtiGEtHOFz JH3adTCnXBYaaW8jxntpDX BnYnJkcmhlYWRccGdicmRy Cz8gfOzcIHL8PWosU4nakC 1eHoE4MQafT4eiiK6gUSj2 NLbhYLEenPY8kcR6ZFAqiS MvV0ZbcL5uIPYtNA3tede4 k7puEEW8DCjdFRWtLdB2lx X4YHKgtIMqUKEnrNgjAGae h449GFE5NpAaWUWfp6JmP6 BpaJoqA56lzXtdY02aUKLm jKfaeW8ocGxxgD3kTeVqCb PgXZbuwBxoDP3cHJGeL8re gMDlZDNqSSGdS6ojNkNyfQ 0xhBrxWMnemnZqORVwMgc0 GPSrgFKjVMYpFhw5KEYvYC DeT72fsaycQYK3pM6wf0bn t2KcSTwaVHJ5SKCts87mIL nnbqZ6KSoqAc60QKcmXYN6 IQwkIJD8sU== COMMENT (test code = c8wdpBYyPJLltMQ1StFzWP 6488) Wzm5lko1JkgEVfiHSsLEln iYVaxiUetc29nTF3mJ86LG 7eOPLfKoU2TPPbdiF3Qxn3 SLHjSSJufJXfQ202q6adj0 gtnlUgxUH5uSfuAFPvkfdv GbG3TNxoIXKygejgCNy2HD nnHRPxaTB5BFZhoRTbE6Xj FXLuKL4tteq6MJI8XUkdSZ GoRvI4SZSvwXJfIADopHul ZKoon120RPA2JyReNQIbcg YayPaxuG5vVqLcKVGTlEBh lPB0rDXmlButHJkel6Cqdu vil7DwS0VezflxGHokeMQa maCmyrQni8XmRC6pZUhnRU F1sY2sOSRbq9vsIQEmV3Fl BT4zI9Jmy5pbTUUdb0xvol SaLXI9dVYwCWDkwpLgzrHn SLA3jZOdiIGzvJGhoVVczS Rut3RtpAR3hqVrhaPjfAF6 UMBbi3MxdI59WEJjs66cPA Bhcn0= CPT Code(s) (test code p9lgaBAeRCTioJZ3HeNcAY = 3357) Eyl7jtg9UxbDBhwEMlGSak xKDytgWmfo10cQV2bV41HC 1sEQLgDeB0YKLpvjM3Zxr7 KVQiVLSxmWKiT012c5yvm4 kgizVlhIW0tPdrEKWwqnyz QqK0CVocVIRzqfkdZXw4RF csIUOmsOA3ZSXwyEZrW3Wa SQFzKI3ytir5EQJ5QNdfPJ AfBoZ0PFAhqAFrZOWxrZhb WReyg482MRJ6WlEdXIKakc ZubIxujF9rFeXlJKV7XJQb NVxwYXJ9 CLINICAL HISTORY (test q9vceFBlBOUdtPU4PzFdOP code = 3352) Xge7vmg9IvbXCjbSUjGZzn nTAwrtRjhs97yAQ8hN31RY 5lFCQjBzY8UYPjpoE2Ykk8 EMQdQIMcbSAtY227q0jlg5 dshcNenJR8uKyiPQMsmfxs MrC9PMrbYHMhfcahPOe7SR fxLEJmeKT2CSGfzUFvG3Qb JEEiFC5lrmv1ZQS3EPytOO VcGwT9TOYzbWMjOEGixYjv RQwue422OJJ6YwXbDYNtbl RsmGsrbB4mMhSeARYkJMI8 Fx9aWF5nVD7tnVWnjazaar VqwtSocmHymoTwxaH3GIGv x2e6vYEZJNk6QJ7yBRdVTX CwubLiOfpkeQ9gsQxtkKRe BF01xB0afQZkz6FndMHwIB fgoIimwrWnuuOcAIbjfU7j kNifXT9vZlP4GDopppGxIN SdHIMpjB7hXPCwm6qsdqQj YmRvbWluYWwgcGFpbiwgU0 5SHPPeeQiubTvnFZBqPL7p e9HpsxHcIQAcFFJmJ8VaSJ Rjt0YhYNE5ojHtUKEsLDM7 aBZ3g48lgXslCZGaLM1xNB MfBSvzFZEfSRyqPA5iOTJe hgFvL3MpQL5lh4Hzb9e+b2 3daV4nX6itK9ulKVJ3 GROSS DESCRIPTION (test l8hphCGfGXPdbNDKWRKyO8 code = [id number]) dnvyYcZQIxgEOlZ1Vamyrg KLmwTT3cMS6cnVzdgLDzwY NeHA2HXVJsBaNrNTNjuXTu nuVhDwHqYJNbbXTgsUE4BZ BdRS5uufftOLmiVFfoCRTr ytB2HRUwsCGxV6RsZIYkLJ 3gqprvVKM4ZBprvA5asvGO RvwvPo9srGTqfNbhHtGnRu NoYXJzZXQwXGZuaWwgQXJp SJg0zE6YWhmlIFF3LPQZLt rwSDZgGH0Gc4yiEPRkrZDo TWP9FEigxIRnPVUaHKHeGA q6WVRhEJyvzXCsZB0emNxs JebbnMipe7RdoFIsLVhoKA EmDSEvVClnSWJdGK1CYsZg VUH2QGy9FTMtTLi0QTs2BM 2JLkKyJTJuWDC8IQM9YrXb UTo0KCdiOU9ZRGN1EJI5OE hkUdL3DAM5XlElYBPoEsGz XGYgQXJpYWwgXFxmbCBcXG 2cxYntlRCxidTCTeFRUSL7 aXguXHBhciANClxlcGljTm VzdERvYzEgDQpcbHRycGFy XGxpbjBccmluMCANClxsdH FosNmzsuDqGTRxZ1BxqxGo XSotAHFzfz1bdNgpUWhxFl UpOOGhw6h5mAX4xQKdjZX1 oPMrhQzoOnRaCV1clHQhYL 8yQXtbOHiwsmXea5FuID60 bWJlciBhbmQgImNlcnZpeC IgaXMgYSAwLjUgeCAwLjMg oUOlQnBxC66hfBQqUXxhKO onb11qiBV8qVFzaXWvAfYe E35fdiAkEYHiyGmcBNB3cC QpKVLlv32lMYN2Al0exJBr LSQtnpM5e6IfLEkoMZTfMk gxSDFnPScyvTBdOG6TD2kt jSAhUTWRanS4qosiFOfDWM PHWYLzSCKNEDbaxBfygD6i PHtysQ4dRI7CPLLkXRclOY ZtaVBLQPV8NX2mOYcpzPFd rkplKQZvA7WfC4XchbHspE MaGAQlihYve2acAPW1YVFq jRNobFElIvJgShyiOXO1FY kkf2olLYN0ZUIcoBRepYWq MIlwKlByOduwQPPnG1HvR0 SilrI4AZo6 MICROSCOPIC DESCRIPTION i9xjdBNzPRAsxPO0XvBtBU (test code = 3371) Jxa0kul3XasLVisLBoHUwt oSCqpoMhbz68wUA8xC18WA 3jMJSkXjQ4FNIsblF1Mrk3 PWBmIXKsjUYgD011f9koo9 lfbxWvoEM3sMvtTPMbmbxy JgC3PMlmEBWdosbjZWh0FO ndBJCndCO8VNEqaKZgN6En JLMzWL1ageo7XFY9EHmjWW SyMnM8DSOfnVCrYOTxeBjz WBxel153JHU1FuQcCRFctr VmaJqutT0xUkBjQSMTGPAp o5QbRMWiOQGyey4= SPECIAL STUDIES (test r1pybXClAGDpq4zlYHTpqN code = 3376) FuZzEwMzNcZnRuYmpcdWMx JDksloNbDOldy9IpZ7SbQz AwMFxhbnNpXGRlZmxhbmcx OKOzYFR8goZqQZIvCFguKP SjVLicIp5bpFAruTpjRuHs ZEEuk1gmleASyhcwwHm3g0 aaJNXtOxD3rMGfLKlhH8pf zqMpdVUzL5UrkYFaiSn4c0 exZcEhTlF0nGKiUNzzU8qw fbNxpTOoUYSzWXk6wG72LL JnvM8bxFNwLRmtddDqYxA9 JTxzIXOrFrL9BLOceYLlMK YcI5jrFXZaKRqoFSVpSAmv rXEyGMN7dQhlf8J3yRSjcQ WshQatAoTqXwIbHzJVg5Fv RGn2tKavB9MgSDLmKgG6iG QgUGFyYWdyYXBoIEZvbnQ7 mCqqtzBqj18edQLvGOGfXJ OvYgEczKkrPXYjYAQXz7Iy eFzcFQI5pVp2kUhjBhrhGN U2Goj8DI7ecu90wwb0qYai YFJsrjexUmV2TNilLXCqjt pxLCh3WUvhYGCukPP6WQQo xUUzO2WaEPTfVQ1glng6YY U2EMpdOAWuVfF5DLIysVBl RLBrpJawWZozz422ISC8Xj CgWY5dI8Xms5J0cV5omOSp NXUcuHMrPrTwLTVyov0efN JyARxeq2YjNSZ9ciC0zBLh cBLgZNAmOS61Ybbrl8ZeVv bna7QyB78lmLL5LMwjy3lj KZ3lBwL4krNqHEevq9oshK 8lDqR5WIufAT3fDM2hIICz jF9hohskGMMjVlSkjboxQU IuiCpjasCoQe3xnVveFWR1 YIgrM6dgxL2eJtV4AOveQ9 hgwA8jKAu3LAiadKP7XNIn kO8mSF3zaterx7tdTPglOQ itKRKggoL7xcY5ERRsnRVk P5VdwC1cJGBuJY8axlfdh6 sfCRZ0QAzrAVLnLFC9WbSo PUGfe2Ozupi9GkPui3SxiD HlBRciT73mt662AAWfadAu I5cjhWWfpbukdCRcvzjnTG zlvuS3ZKYxNBDmRIxsBGGs XGZzMjJcbGFuZzEwMzNcaG ljaFxmMVxkYmNoXGYxXGxv S7plPlZkY4IzVZOwLmCmBM tzDOrniKFyqBHlhPF7lQ0k YC3hUOAltFAlM9EpRMTfve DatDDfOOZ0jZIldRIiFK4m VMatzWGuf5tdz8UeE5npjF ltwNW7RI0fQXVrWEShOYnh t8YziK1yDdpkxQQyxswcSA xmczIyXGxhbmcxMDMzXGhp T0jwFhVmTFJozYscGDkvx9 NoXGYxXGNmMlxmczIyXGx0 cmNoXHBhclxwYXJccGxhaW 0iBlNxIeOuKcjcXS2sGYXy D2usgLEyFIMiEDZuI3bfRj HvyY2cvOfwPWsjIeJbEgSy HiZYo881yt2vSRJflWKgog UUqHNebP8pGJsbRGfqTIog gSAyZGgfg3tsUFMzt5z8cD PzOPMlzuDrn0jjMEwmdyUo VSTljKUlaBUaSQOsj50yKL eldKjulKooKPXmd6EzuCgm d0XtJkKyKEctw5ZnG98caW JvbCBzbGlkZXMgcnVuIGFs n60qr0gsGTXaFkO9hIMioT P1zDWiaCNpn7XiwVcuORWw r9soCDSwiq9nejbsyUYuj7 FemY0wrnpwPXzcjBYyyzIh PJQht1l3lIZlZEGfDDRdXI hsbFh5KSIje255eg2punL2 tEOxTXQ0YMyfIFLnDOSfoy UgZXZhbHVhdGVkXHBsYWlu XGYxXGZzMjJcM[facility] HospitalZzEwMz NcaGljaFxmMVxkYmNoXGYx ZVwlK7koKkJsY8GwFKWoCb GwnNVcK4xhoWMrFUWdGAre XGYxXGZzMjJcFuZzEwMz NcaGljaFxmMVxkYmNoXGYx OOpvC5sxMlPcZ5GaDDBeXz IgIFxwbGFpblxmMVxmczIy KMomjyueYRWhVXeiZ1ovFo ZyFBWtlUvmIRuvo2KlWUZd YCRmTsepnpDiHRw6yhGwKQ BhclxwbGFpblxmMVxmczIy NBbfgnqjKHDoPUvxX5yfIn YiQUFkiDruUYspc2OmXADg XGNmMlxmczIyIEltbXVub2 ucu9NcM7frfLzkkED9LODo O1bqrEIhuHL6RYO0pT4eHI awkoUnSVCgc4JxLHVnPGQs TjG5cI5mJRY5OeBFyTmjWY BsYWluXGYxXGZzMjJcbGFu ZzEwMzNcaGljaFxmMVxkYm CgMGCrELppC7sxKnDeT2Du LCYtLzWznEncSXxjKUt1Ot xwbGFpblxmMVxmczIyXGxh bxmjMZMzAMbnM3atObYaOH ZvtSgpDRuem8RxROAuRKVv MlxmczIyIHMgTWVkaWNhbC MOBX28REIjUINfaAvoeN4g dGNGJKUaanY6h4R7QOrtYI RaKHs7FLpkyzFbLNGaoW3v DCOeEQ1gRBt0ruXuYOVed4 HqAO0lMZVdjYAkXEE5YFIp s8UaY5Utr5PgGUYySINjiy 6tieKcTyYOqLFpXADdzx21 JNUcOB9uO4epEJGuNGZxvt VemVZdk4BxRMKnaXF5jPRn SS1LXlPRw33wUICkNAOHvu DoRLVstIidqVH7jwG1eL9e LiBUaGUgRkRBIGhhcyBkZX Gern8yzjCmPRNgMYLph0Ug hINkqGGoygDlQ6Jsb5LyYQ Wgjf91QGfrtKMsra89EE1d W5Ptb6NevN8pTScwVVYrs0 FjzMLrjYXlGYKrj5CnS7lj uvthNUygkYUktJ4xZUUcHP r3MRRlv6KoDJRea7OgCgPh anRjPFLlDETrBMVhiR89EC W3lSmhzCbpkePuEU0tQPDr lnApSZNcDNVzhI2xAGjstx NgSIYkujT0g9H8QQpxYLNa waWzSnctWQL7dbCctgP1vA XaE4ktuqsgMOrnNZNpd9Qz tA4ykPLVlIFac5KelGUlxH VJtRNiUA5xbeNvJC6zXZH6 ODggKENMSUEtODgpIGFzIH F8FXqdWpmdPHV8orSjVZCm v4GfGUeyR4zxO80uoNwpmA e1pEQuyLuyhZTzqVFbSGGx fkR8w6R5VBNqm6EpysceEL BsYWluXGYyXGZzMjJcbGFu ZzEwMzNcaGljaFxmMlxkYm MmOPHnAOvdQ1tuPlSeGgHo AryiGQT2bM== [facility] Mklk2020-92-76 16:47:26 Test Item Value Reference Range Interpretation Comments Case Report (test code Surgical Pathology = 104) Report Case: [id number] Authorizing Provider: Nathaniel Dooley MD Collected: 02/26/2022 04:38 PM Ordering Location: [address] Received: 02/27/2022 07:57 AM Service Pathologist: Gene Carlton MD Specimen: Cervix DIAGNOSIS (test code = w2pdoTImDPObc4paRRRnkE 3220) FuZzEwMzNcZnRuYmpcdWMx IHtccnRmMVxlcGljOTYwMl xhomJyZOIoqIDyP9Kkaspy VTjlQP1fEE6shGjbbJFqdU RxWITcYtCpn7opy853uGTz f1nwWSOIjjszbMz7aGoiJ0 0yc1O5LklfX28vcIThZWH9 WEIlJTBjnGAmVCNlHUI1NM RztOWtP8biQLHoFD6ndijh GMuxLUgxUQFjsRW1XXDrzM UgJ6SqTEZkMXujVJEmjnd7 XjFeTn7aePKjsHvnRVuiLA FhNLQkTBomMNDcCdJhR4YI ZmwQKIOKDBSNAUHRQQ9EQ8 f6LJWjkge7UTUpRHTNXNIY TsQVP4mGLPEOVxCLYPJJFM IbM6JqJ8WSEG0FIEHvJ3LJ NXUXMEZLRZ9NTFHhCJLzRW Rse46eXB53JJwmVHL7p4di dGYxXHNzdGUxODAwMFxhbn NpXGRlZmxhbmcxMDMzXGZ0 bmJqXHVjMVxkZWZmMHtcZm 4oiQVvnCiaHqHmUXMge1xb uoVJkdahfAf1z3xqJHWaWs T1qTLyIInsP4ojxrSziSVw ZBUbDYg6bU59OUVxkP7dbB JfWTdnhoFiRpD5LCioTPYk FtI0HLXrhOYwXIQzH6fbIB QwXGdyZWVuMFxibHVlMCA7 oYxxf6R4lKCrlOLruKiwLu PpRxKbBoIZx7KpKHd6mFgy V4GiYNKuUpI3aVCiTMXnKZ ghUMVxDEYzxeJ2eX76PUts cxE5qANry0Lqh57bm479wP 5foTYeLWJ4IPNbUNRudCVm HXOgYNH7REVndXSaB7ouAS WjUB0bbhagCCcwSSvoLXTg pKY2YSAffIXcI5OlMPClHR kzRLFbuju8HxErBw2zsKOa fZevPLmxz9upn9bfnLNlSh t0APUcFsZjJxymODdpp1Yi i7ugVSYxou2oWHB0oLTxpE svv3W8cTGwREShqMUhHPLe VO6kkIYcTOZvkI9jgsbnQK BnYnJkcmhlYWRccGdicmRy Ag0gaPkyBFF4LTbaD3edqY 6kErP4FMizD6dubI9iGSi1 GNkiVVFtbBK6urZ5SAShwL QqQ2NrsP8hKMGeVA2kjqn0 r8gwEWF3AAndLAJjAmA5dt D0TBUfnEOdGGJzcPynWWwu d991MRW1NnPlUWJmf0YwB9 YnaCorK34pwQhfJ83yYTTm zIrjsB4kiLynbM2eDaKgBq DrMUzinJofYI3nDMVsS4yq dBJoUXSkSYTsQ0vqQxSnxV 9hsIzhZOwvzkHtHGTzLku0 PITfkBYsXNBgWct8BKYdLR XvB38ybleiXZS4fU6dg5vd f6RtFNhyTWB7LHYcf00nMB cvhuE2AXvmLl51WAfmARN4 EGrfELB5bO== COMMENT (test code = l6rrlZNgGQNdbNG4AhWqHE 3359) Hda0zzr6JseVGofDTwSNue yBQvcvRppn68mSB4xP99KO 2pDINkQnI1JFTcplH4Aez2 CMZoAMKlbVZjC925m6iji5 saokPkhHX9fZpfQREmcbqy EcQ8RHmiBYPcefiuTBw9UB fnLCZgjZS0XLVaxFKqD8Jm GWXaHP4wzvy6IJW6ZIlwIT FdGiH2OVBaxVKpWIRhrGuz VKxbl370CQN3IyZhUDXizv KlwEidvO6bOfTiICYPpOPg fHR7mXXefGjuADjmd9Ypja yle3WcC3GehrbrESeeoGYk rdLuqgFeg8SjGG8jSZaqIP V1wO4qIEPyh7cwBTCnE7Sr FM0lS7Erb5ngZRLaf3ninf AhEDM2wPByBVMrlfGopwGw BZG6nZYybATdfHZcfHDkfA Aty0MjrDR0fyXazhCvdWY2 NPWaw8CksJ40JNPmk62iYF Bhcn0= CPT Code(s) (test code y3obxEMqLUIsaGZ3QwTdJH = 3351) Xbl2xlf8BccKLobWNpRXvt mFDvetSzau18nZW0eF17ZN 6gYEFlOfI3CCJtomV6Fue6 LZCqPWXocXLsQ726o5thy8 pysxBhlRW8iQfiUGVxdexv PnZ6YKxdKLKxdxfwKSq2LK ccOLHwpSV8PNQyhWJvC0Gs YSZeOH2tieq2XOY3WOutBY RbXhD9KRDmtTOxDQKisVlo SFceu080UXM8HeLzEXWums HrjQigkF3aTePhNOV2VMQd NVxwYXJ9 CLINICAL HISTORY (test w9zcxVRpIQDshBG4MnKnMY code = 3356) Kam3iqe2XobIHadUSoEVto zNWzrsGnrh26tLB8cT62YW 5pQLTlUrT6JJKjipM6Rej3 EQOvPTPjjZOeJ240n5lel1 ygshXnuXH9lYrlQXTandgw BtH1ABcoEEJkmexeEXi0MZ npVWPysXF9MQKqrDDsQ6Ki MRUrLE5nzyx2PZP3YTypIM QzKzD7MLEjyHKlIOFcbSeu KNjno529BPH4DbGxIRBhyl KfnLfleD7kPbJfSEVaWSI1 Bg8pVV7uXJ4owIFhqvsiuu GfryWzpdWovoVtwrQ8GPGy j1b5lJINIDh6XU0oLLtLPI JkyzMaKxpliK1mxXccwJQc YP33sI4mlZZpo3QtkWQgAE tklSqhdwHpwlGrDFqajY4s sXmyPC6lHhL6OMoifwIxZI AxPQSkpO3vFOZhq2aaimVn YmRvbWluYWwgcGFpbiwgU0 8LYFKfePcgzMvaQNWbRG3q n2IajmKbXTDnQSRoT9DjLJ Ony7LeHLX2tkTkVWYsEQL9 gGW3n13zsFjtQWDkIS6bOZ VfAPhmWVQkCKmnIZ1aCIPd feTvH3RmVA1jl1Yjt1v+b2 4tqZ6fT7vfE4nhTDB6 GROSS DESCRIPTION (test w0yvdHDbBKOfpNRAMZKuQ0 code = [id number]) dlmdEkIFYttMWqF0Mmhpik CWzdHO6rIM6phUiqqCLtdF VaXP7XIMFkKpPdYLQqeTMk fdHkIeFeFKZdyVYyqTO1YV QmXZ1zrnrqUTxgSFgkWBLs neN2DGFcmGMuY1GhCOBhMZ 3evbpxSTG5VMpunI7melXW BvtaCc1htAUwhLlhHkBnTm NoYXJzZXQwXGZuaWwgQXJp GXk0wZ7THfvrJUS5ZTTFMt ugTCDdAY1Mm5zaYBVlrEUk BRH3SXduaOKhQMVtNCSuFA f3NEDlSKyeaPOlYU4dkZuy QxuepNzzj9KdlNFmEHjqKJ KpCNUxTQboWIIfCD2GZzPn SUU2KPm7QCHsCVl4KLp5SY 2AHrWiAKXsEJR0AAP2BpUq YXx3VZxcZA9CFNC0KKA2YP hvIsJ7UVZ9RjJnZMVwRgJj XGYgQXJpYWwgXFxmbCBcXG 9mcQftyEKahjAYQxRSPCU7 aXguXHBhciANClxlcGljTm VzdERvYzEgDQpcbHRycGFy XGxpbjBccmluMCANClxsdH ZntMdxloIvGKSsZ6RghdVt BYvgNBHbtf4vqWkvNKgjYz AaKZDyz9w4bHR3qANifJX6 uQTakQeiFnJtSY3imFEdBS 5yZSctZWzivhJac4AkOB04 bWJlciBhbmQgImNlcnZpeC IgaXMgYSAwLjUgeCAwLjMg bUGwHyUsK58ndHFcAOxlIR fyz48xmJU6gLTnhQWlNcIy E13sjgYzDOCrkQqbXHK2aP HaIISgv56vFSD3Va3hoBNm EFXpbuA8m3LzMZxhRPDtZa wrGLQgXZnazUWdJV1QX6ob wQDhXJTAngL3fxivFRyNUX BYUATbKJEKKBvcmXiduU1v VAbzhG6oLE3HSCOfCHoaMN MsbUVHVFR0WS5rVSaddYOq zvmtPGZlS7LlW4MvenSifN DsFPCuwkCvm7rxNDU1CUJm zNWkiSAxYpPiQmobPUZ9HF jvo9ddCPS4GWWboDGvgGTj THicSdXrVosiKXNsZ3HcF3 ExfsE7IXo7 MICROSCOPIC DESCRIPTION a9grvXTtPVWeqRX6QtUhGG (test code = 3371) Ttp1nph9JsjGRdtYHxVHuy sBOqhoQyfc62pEM0bK12WU 1wWDHwKoD3RRXzxaO1Pqn9 NAUyUAIonQJtW509j8lap3 lzooXvzMU0bOnoTJEmujzf YsO2HIvwNGMxgnskKWz4YW owZZKkoWI4WFGkeGSrN1Wi KAHuXL1clul6URG8XMmwKX UuNlG6IELwsPKoTZSfaPfo ADvss186YDO1VsWhQJTqkp SoaIgreG2dJfWzADFAQXCj z0MyGODtBTXynz5= SPECIAL STUDIES (test c6zacTGeELYhy4lxCXDyvF code = 3376) FuZzEwMzNcZnRuYmpcdWMx CNpjwjOiMOgnd4NdP5BgBv AwMFxhbnNpXGRlZmxhbmcx CKCaEJP9siBeISPzBVxlBY FlOSmqNq9uwAXaoMfgAmFy AXSdr0rxriYYwxupbFk3p7 yqJRUyCbT0lFMnPZksQ0kf xyBcqEIlT1SdqCFhrRv4t0 ffZtCeVuG3xANxFNziJ9sa neEtgZZaDKWvPPt4mN77MK ExkB2fkTQmSQqlesBwEdT0 JZbbIPMtJlB5VORskSEuRB YqW8okNXIdPFcdFRTqMHnu oPGiYKM3aGvtm3W2wUAifR NsdEvdUwBxHdRvDgAUs6Wi UGe4qPozI0KqZQMpObK5sF QgUGFyYWdyYXBoIEZvbnQ7 aWdvesFbx27vrOMoHEWdZM ZvDhVtlXrnJBAvQISAf1Bh kSpkTLU1aPp6pEktKuamRZ Y6Ytg1KM3ekh91zwq3vYfs TFBatfqqXwQ2FVsdDGWmok oyWYs9LAwcUNJvpHK7SWCb wONmC3FnFRPoBB6nicu6JT S8OJleFIMfJcN1ORKwhZMx VJTlqZrsTRidw822NZR4Xz QhOV0nD4Oig5H2hA4urWZb RHMtuGNfNvIfKDXwde1bfG SjDEmdo0UoGSI6wcH3sYFn cOZsPORsNK20Nlnuo1AwVs gxc1AzI22lvPT6ICzmg2vu TA2iZbO7nqHwKXlku3wqpP 8eJnT6TMkdMK8nOA2dWRCu oS9nbgtzAUHrNbIalbesEF BnlBghxjWyIe2xrExnGEM6 WGoyB4aklK1gTqL6KBopW2 krnL6mTOo2XFkobPN4CWOe zE2bJH6dgdpho7mzJSngFR mrSLLurzP8raY5VYAotNVb J9RoyG3tSFRjUS8whcdwf6 osUOZ3PRsvEMYqCXJ1JbCc DVHnr4Wkkyq1UyEzz0JgtT TrSVouT61tb983SNTxelSt T6jliWRszeobdXUwwanhKI ynbwN4SMVdLLJsTGptJHBx XGZzMjJcbGFuZzEwMzNcaG ljaFxmMVxkYmNoXGYxXGxv X7boXbZwJ3XvEKQiZhFjXR ksLChmnDCugDRusYB7vR3d ZU0sKGFadUJdD0VcBIEemm DunMCcVHX2sKAczAZbYL9o RZgztBSqe3uyz0GxW0ebeY vacMV7HS7iJFUrJNKxXUid g2AplG2cRnxgkGWgguagRM xmczIyXGxhbmcxMDMzXGhp E4esLwYyFBMgdNlgHWglm2 NoXGYxXGNmMlxmczIyXGx0 cmNoXHBhclxwYXJccGxhaW 9mKxGhAjUwFzqlBM9wNKWq N3ivvUAkDKCqMAMtH9qbAo JxcJ1bbFxzSJthMvMjTyZr LjNMu310mb6pQHYkuDGyjs ZQnKRhmU8uJUrnCThbOPvl pZLoSBqxx7vmZFJms4c9sS EpCVJcstAep3pgWVnrhaBn RABxjPZwmEBqETQwe96nMB qeoEgebBspHZDvk0QkzCfp q1ViTcCsBJwgs6ElZ90qdT JvbCBzbGlkZXMgcnVuIGFs g10gs8afENWlCfW7yRFthX Z6bEIdoOYbp8NfmZykQOMm d4qcPFHovx7fzvankGLcr5 QcnP2luozcXDiokECbxjGn LIBqe5c8aQTfISNvVSRdGB ntiUm8MWUdt757bk0lucK4 hIZmDNX0YSeeLRJsSFLylz UgZXZhbHVhdGVkXHBsYWlu XGYxXGZzMjJcbGFuZzEwMz NcaGljaFxmMVxkYmNoXGYx JMubT4vuClZuF7FpVVAyHu YyrJDbZ8udkTGcMMEyOYef XGYxXGZzMjJcbGFuZzEwMz NcaGljaFxmMVxkYmNoXGYx OHjhM3dtElTtW1XqBSApWp IgIFxwbGFpblxmMVxmczIy HBgrnpldCYKfGZjjI6glUs GqCYWdqRnzIPzld9DtZGRx ZBDrMuxxlwRtFEa2hnNnJO BhclxwbGFpblxmMVxmczIy WZomguikUBEfPNsdZ9cvTh NpGVIanNatBYyjg7QtRSGz XGNmMlxmczIyIEltbXVub2 lpx9LvJ1quxVfkaCZ1OPHc F3iexEPpfBQ1ZAZ1eB6yRB xxteVnFNEyy2OoSZNrHDQv OdT8lH5eFOO5ZwDJwMdkHL BsYWluXGYxXGZzMjJcbGFu ZzEwMzNcaGljaFxmMVxkYm ZjLMPmPQkfY1gePbOaH2Ui VUJnZmGboRzbADuuPHa1Io xwbGFpblxmMVxmczIyXGxh axyfKXQkSJatW9khEfMoGR PfbHllFSnug1SkWDKaCJVc MlxmczIyIHMgTWVkaWNhbC BGID64BPJwXWOmvYkmuZ3x gDQQQLOmcbC1o8W5SVopOR WqUZy1ZDgixmQqGCBbmW9b CWBhMX7eXCf9czMoPUBqr2 KtQY5kMQQchGCxLBE5ZAZa c1TlO5Tym7NlJCCuRLRmar 0spwQhNkEIvDRkDXJlzn47 WBVcYI7pS1noFHSbRMJjxm KyaHIkj3JoRPXxiFO4iKMf EH0PRcCQh25uKYKlUJSOit DqNLRodPzfbTN6paO5tG4g LiBUaGUgRkRBIGhhcyBkZX Edbb6pfvQxZJYaOUUxy7Sq jIGgkRNcveWhA0Wub5GmHZ Cgsu11DZzxiQEant71HC6d T5Ipm0IdnN9wHWfdTRQfq5 HkdSXssAFnHZIyc8CbC1lo qnmkILaxiPNpnX9nJIQdTN i5WKIbx2WaFLAmw9YtAcLu lkEqVXKmPBVkDPQrmF80QD T8aPkqxSlehiGkOA1tQKFi uaJoYSMgGUVihX4cWWywxt HcWZIiqiE9l8K9NPfqWRXk hlTlMeaoDXT3evMgftO2lS CnF1xvzgsjNDecTFGnd5Rc zE9scRABhRKsb6UokRIbdM GKgFKfTT0fvyLiBQ6yBRI3 ODggKENMSUEtODgpIGFzIH Z3FFbzUzdvINM4ywLtYKBm o7PySJloG6iyF52pfMltoS e9oCYmkFtulAGddAOnWYWv rxK0f0J2BGMkk8YhuyuwKY BsYWluXGYyXGZzMjJcbGFu ZzEwMzNcaGljaFxmMlxkYm UrNTYaAOghG5qlBqUjFxPw HpfmECD8zQ== [id number] 16:47:26 Test Item Value Reference Range Interpretation Comments Case Report (test code Surgical Pathology = 104) Report Case: [id number] Authorizing Provider: Nathaniel Dooley MD Collected: 02/26/2022 04:38 PM Ordering Location: [address] Received: 02/27/2022 07:57 AM Service Pathologist: Gene Carlton MD Specimen: Cervix DIAGNOSIS (test code = [id number] 3220) FuZzEwMzNcZnRuYmpcdWMx IHtccnRmMVxlcGljOTYwMl wzmpQhGNIitZDuL8Yzlwxo BVzpJA5ePE8bgJxoxRRgdT VuNJWmVoCac8ckp922oXCw c7geQBFFfzvdvYk8qQucM7 2ip4S6BgqjD76szMQyUGC7 JYJvCFSoyTZhDBRwYTM5GG AsqKUiF1leOHFlPV9ozpiz AWesLFjyJHAftGB8FQJaeJ LpD3XqRPMhJZcaEMCijgn5 MjBvEp3sbBEtuYuvOYdaTA XeAMSwWNkqBUTjYbOgW3FH CxdGUFSPRMYXKNSQSI9CA6 j4GNCxwem5YNGaZFCPMQFO SaOHM4cKDFSVCcMSLALGUP KsA6RvT0MUQD1ZPWWuP3WK MYXUKXULMW7GTKIdNMJmYU Wvz22aRF87KTgqUHG4h0mi dGYxXHNzdGUxODAwMFxhbn NpXGRlZmxhbmcxMDMzXGZ0 bmJqXHVjMVxkZWZmMHtcZm 5iaKLcvKlcJgWeLPOxs1fu sqXUlfvtaZw0n1peMFLzOs M5aFKzNHemF9clldPkjILc PMVfPXx8jS61SBYknR4vyR NiKAvtqqXfUbJ1QMuqSAUq YaQ2VTXzvTRzQNMmA5drRW QwXGdyZWVuMFxibHVlMCA7 lChqh5I8nQJveMAngRuiHt EhJlWyFpBBy3RySYy6uYqm G6FpNDTmWyX1pYCpOVHrMV uvCPIbLIBdtmJ5uD36CIxh duG4mFAov4Jxx13qh108fI 8tyCNrBQX1XKXaITEbcVYg IFDfDXF4MZCppUJgU5hdUI XkFA4blnjoATdkHRshHORw uZF2ENRklPMrI4ZkTSFbAD giIQTolfz0QeQyJm8nvBXz yHtbJOndh5aeg1xhsBRePy n5QCGrDjQgEmvjKXkjx1Ba l7sfFJBrot7hOZY9fGBypV tld4T3uEKpQWJjsVQnBDZo LZ6wvTXyQNIdgL4rlunbAL BnYnJkcmhlYWRccGdicmRy Yc7xtSwpZZA5BBqxT6xqiG 5cIpJ6PVokD2lmyH2xTCv3 IQftEBNarTW1wdL4RSFcyH ZtH1SjcW4eHJPaFC8cjko6 g0xcNPE6FNirDPPzRkY5fb J6IVOxcWWqMMUguNllGVpu i751ESC7LcLtOEVyj5XxL4 RboVtcQ36wdNacG00bGDTu mErqkN5daJztjI0wHeYiCp DwZFzxyQiyZA2xDBOfL5hv iBDbFDFrENHpA2vzOwUpzV 8cmZwbTLcuakZuGGBmIls8 AIAfqGNdYPAlIwc0GTSlIW CjQ64fhwkqYPI0tJ7wm9et k4QbHXtdMJH6CCHru89jIH qmwsI3MHxwTi86TCvlVFL1 HCoeMAO9qV== COMMENT (test code = j7xelFMqSBZxbGS0LhNwXU 8915) Rkj0dgh7TkeERzrJYxEZct uMXhrwMsxv08eBB7oD15YP 1sJDZfLfP8AOGzaaW3Lih1 JXDjXOQugTBfU860u9fui2 lmqyWlxEY7qSvrIUYrfqjn OoZ2RQxqVREawphgOFx5YG beUXTvuAL3OPDllFQzF2Ta BQFaFU3jqmd9BCT4GFroTD LfWvF4COMjcIYoNZQenRit CQnzq314JOM3SaPtFYPjgp KtaSpygB5xWjPdNGWEpHQn pAJ6tGSdkKbgXNsyn4Lfav kmm8ZgJ1RlnnhwIXoluIHo fbOswhDpj7AdXY5eVKcoRT B4kP7zKHCxf5dkDDNgO9Ey GS3oP3Fex6maIMYdn4jguz PwFGH0iUJnIVShalWyqbMg QJW4wRKzhPWucNGimHBgeR Exc9IdsSN5znHgifJdeRO3 YXLlx4ArtF09TJWti70dVY Bhcn0= CPT Code(s) (test code s8ssaXYwNADdcPR5VkRqID = 3357) Jbv1wpn8XywNDttHGdRDds nFOhuqGukz35bJN0qN31KX 6hPKRaSwD8AOHgnuU5Yyd5 RZHuLDAzfDTaV408z4bkb0 ggkfUlhOE8vAqhPAMcuxim OoZ3VVatSNBqqblkBBn8UC bwSOWjmTU1ZKScrQXyU7Zq OYFmOY4ricp3HPL5BMteBT LeQvU3CMRiqEVqWJUkqTxi EGzjr547EDS9ElBbLFFopt VjeFfljN2uPeDcGFH9ONPm NVxwYXJ9 CLINICAL HISTORY (test a6mykYMfLTCbjPB2OrZmEU code = 3356) Wfi0bwl8YnzDMgqYKsEZkb qHJiwoNvsf65yRP2xW76HA 4hLZLkEoN4ETPaihU0Utt7 PHWwPMSubREmW799l4vlq3 nofkZmvXA3eXkwCQSqalko TcJ1AIlrOXAttvetRRt1KW zxTKTuuPD0TSTmnMFuD2Ce QRHdZP1nggl2YSC8HVhmKI DwCuE1SBGctTViSKFwiOrd YUfnp755STF4WiMfBAScka WjxJrroJ2tHeIgKDYdOVO3 Mv4xCF8rZE5ehDCyettrtx BusaVzrzDsagXkczK2BASh o8l9rINBEQs9QU2lWWaLHY BvtcWiXzkukO2uyOxnuQDd ZD95yL3jlXNud4JiuKTrCX iymFkpdiEzcgQfEChmhT3f kFspPJ2kEdP7IPswwmYbIS JgVDWowB0bAWUgf5gdctPo YmRvbWluYWwgcGFpbiwgU0 2CJREeyRmufBroVMTsWH1i r3QclmWdWIVjPETnT5QiYJ Sbh2VwDXP7nfOtAHByWOY9 rEP0q00xnTncNWLrWY6cLY RbWAopKPHbMLcyRW4zCCDg gtQmP8CyLY2kz4Djx0s+b2 5qdH2cR5mvD0ivYXJ1 GROSS DESCRIPTION (test s5rplIGwBQJqmTBZZGUnK9 code = [id number]) arekZdQDRpjROlQ9Rzwsgb DXahDN7lLW2yoHtnaZCodD YqTU8NOYNvDiMiMTBshQBa evMuBtJmXJNthERhhTZ7UK DdNG7uerlcLFupFCxnQESs xmL2HGUtdJCpI9XhEBHgAF 2leuhvNCU4XDskeY3gcnJZ JpugBy0weGTauUthUpLvZy NoYXJzZXQwXGZuaWwgQXJp HPs6nI6JGrcsONN8WRJRIi fpPZWcFY5Fn9dtLJYphKTm ZGV5MPzvdPDjGUKoSKFvWR f2QLPuSCuceKUtIK4wrDwt JctixYkhf9IovDNgRZlhUQ LmJPVhAPpkLMZqSB7NXiTb BKN8UZm1WFDfUKc3MUt7HT 6OSvNeRKLyKSJ8RBD9IsRv EVu4PZwdVD0SNMM1IMY2RY yqGyI6XKS9IqEcUDOgGnLr XGYgQXJpYWwgXFxmbCBcXG 7pfPsefYTvyiJWCmDHHLF7 aXguXHBhciANClxlcGljTm VzdERvYzEgDQpcbHRycGFy XGxpbjBccmluMCANClxsdH XldCjwadLhHRIdC6RnvkAz QZurDSBfjx5ljCovKVesSb YdWCYlm2n9iRH3nDKqaGW1 zJLdgYyiDdVpMI5kgYXhMZ 8pFXxaCTqmwmCod4UvEU49 bWJlciBhbmQgImNlcnZpeC IgaXMgYSAwLjUgeCAwLjMg iFDiMpWqA27zgWMjAFvqKM khe80zsPQ0uVUqwRVvBvHa P23nxjQqLTSfiQhhJEU5jG QbXKCeh33xMSP1Vg8nkXQc PIWwzoP1f8WhTTkzBLWdRr znKTKjJVeukACnYD2QS7mu mZXfVOAGjvM0klzbPQmRYZ ADQLHwAHIBVLdneHfynY0y TYzyrF0xKA2XUPLbWIesMS RdbCGJUVG8LE3hVZmuvOOl nnqkCQCxO6SnR0LlduEuaH HnQSJalrOuu3qvHWA0AYOe jGPnfFKeQiHoJwvcSFN0AP zrr5tuVZO0JYFzwCPyhURy QAxaLkRdVywyJWFpY7YnY6 OlocU4FDt9 MICROSCOPIC DESCRIPTION w9nquAJsSKStjAW8GcLdUP (test code = 3371) Tij4sup5FbzJZzyDQxPHme mQJkuvDuky13nKK2fL19DE 3hNAHkFjD9URUogbF3Tfc9 ISInFSMeiJYeY622d9ykg3 yzwkMxwQO6dWgcBTGcfmlc ExK9AGeyTPIvvbufJDk8EA tfCDLfyLE0JMEwgYBaR7Es THHtXI5rkag4SMC7CUucBM YvEgH3UHEotEBrCXCbeVqe GHvae517RZX2MuUhUYLsmd LiiEpqtV6dWeLwWWFTPZUo h1IfHMAsYURtfw9= SPECIAL STUDIES (test q1dnkTFgRAEdr5vmCMXyuC code = 3376) FuZzEwMzNcZnRuYmpcdWMx BJpfuxBuXRmhx5SkK3ZcOz AwMFxhbnNpXGRlZmxhbmcx SBIeXUQ5ccJgREGlGJniCO ImNEuzMt2vuICnzXnsFeCo NMUkc5sqmkOFdhsygGp1o4 ieOPNsGmZ4yHMkENdbW0um mcQezJSwQ1OhkMVsuMv8n8 jtZpHuYnM1rCGxIZzoM5og pfSetWMzHSJcFGk6wP80JK LuxM2ytOGyRAtsdpZxKrI2 SGtmNVXjYcN4JZEqhAJlRE BqQ7ukYVKhLJauLZZrMXvc aZVjCDK8fJjmx7O0xSUnnQ UpzJbvZfRpHxGmOyQPb0Zg EGj5dQskO5QoPUBpJeP9eW QgUGFyYWdyYXBoIEZvbnQ7 yWxloyLqd51fbHYdAXBpCM HqArFvkIcpRKLcFJNVt0Rr nGwtLRT9gSh1uQobLmufFJ S8Iyf3WO8wna81nwr3gCcm HSVvnhugHsA7RYbsXMUlgy pkPWy9OBnkAXNylDA8WYUs nXBjX4OaHRVsYP5epmx6WY J4NYztJOIhBdT3MGSkhPYu IBUbtBthGEkhh836OZV8Tk WpFQ8kA1Qmc1F9gE8vnXXg JZXclCPxKwPuUQWbhd0fvF DzAOhih5UwBCP8fuX6xXOu iFHqMDEaNB65Rwkjv7NgLj mtp7VqC43luVD2CKjrz6mn TM9lVtK5tgJiDCsox3vnyC 0uVeF9MFtfPJ6vVJ1vAKHs rV9wlzfjTMBqMrUpxodhPI MwyYfqxdTuAr9beIgzLEZ6 AKieK9qmnR8mOsN8VDndQ8 ajrY9iWSn8IKiprZA9QEYr tI7aZZ7nrzimy1otZOnsBG jyEBAkujK4lgO9QTIlxQQj J8ExjA0iECIqWU1fetlpd1 bmJOZ8OKsjBGCvJPR6BvAc FCCly8Utjjx1XaIom4HkxX LrLXxnP21gp116QRJmhgHi U2ujdEJicrkgnRJqnvbbQD rzbsM1PYJeZCHoEDvoUAXd XGZzMjJcbGFuZzEwMzNcaG ljaFxmMVxkYmNoXGYxXGxv X6xpApOwH1KoFOAuZpExOC kqRYuhjJLpeDOrrTE1uJ4p LV2lNKIouKKkO5FkINZlyz IkcGYxUKM9lTRflPQaQD7n EUnxvUMfc5hwf1NyD5kbtB gatYP6RR6lRCUzOGHuXEvc o1LdqQ4qWsospTPoasxgLA xmczIyXGxhbmcxMDMzXGhp C9lrHdTwSIBlyCftUAcix3 NoXGYxXGNmMlxmczIyXGx0 cmNoXHBhclxwYXJccGxhaW 7kFzHsRqLiAiobJC9wQIKd Y4rqsYLrCJEgVRFwG7gnCv IyiV0ukKrmWCdfYxYyIhWh RuHQm587dc4zBDJzcVUtuj PWlLUwqZ4uTMdkVDhmDMhn vEMjRAhnj3ccQXZkq5e0uM GfHFJwgnNia4emCZzuhqYm IDWncJCzvDLjSPKwl88jHB fnuKukvDzxLAHlv6OmiKyh w6HdKuLgFOggx4EsN18ocL JvbCBzbGlkZXMgcnVuIGFs y81mr9eoTEDdEwH8kRGanM X7qQXogVOka7QkyDkhWMDr x2djUNHcgu0giivnxUKnx4 NjmM5xhzsxYUkmjVRksdZf DOTzm2i2vZWsJRVdFHGgER thaWe3TNOxb084ne5wtrD7 kGHsARN3CLikKOUdFJOsui UgZXZhbHVhdGVkXHBsYWlu XGYxXGZzMjJcbGFuZzEwMz NcaGljaFxmMVxkYmNoXGYx XInaV4zbCnJpA3AcJQOsMj TpnEXmA9zapSZrMERfTFsa XGYxXGZzMjJcbGFuZzEwMz NcaGljaFxmMVxkYmNoXGYx MVkwD1tvYsBlH1YaANZpIn IgIFxwbGFpblxmMVxmczIy LQnwafxkCVStPJquU0stKd UzSFFfuEpuMPhuj0YnUUCw VVShYsgbeuWjPYr1diGrSP BhclxwbGFpblxmMVxmczIy ICwqenicDVFrHJyfI8quKy CeKWCokVqsLPjvl8BwBAGp XGNmMlxmczIyIEltbXVub2 asn1HxC1llpRqmqDU9VZWv D3wuoKDzfOZ5PYN1iQ2bGA jvqmXsSJBnm2FvCFRvPHNy KaN6yV8aIFU6XkMYhZzfWZ BsYWluXGYxXGZzMjJcbGFu ZzEwMzNcaGljaFxmMVxkYm LiZRElNWnyJ8fyVbXqX0Qp VDXqLpLgaOwmTNewBNn2Ky xwbGFpblxmMVxmczIyXGxh ehiwIEUpANyyR7wfQjJgPD JdaAjrOLxtp3CqTGEfTMRb MlxmczIyIHMgTWVkaWNhbC KMUA19WTMkLDVjxOzawG4r mPPXQBVkfmL4p9G0TDfnRR FwIPw0LGhsvgGoVBFkcT9d JBUqJG1sPBz5kdPxMSRtm9 PkCQ8iGKFsuGDyQLQ1KLXi q5IfY2Fbx2PlEIJoSIYjvc 5nrfIgGtTIeQTpMTErnc16 CWMyZX4xI8gcEQPnSBSaky LdaCHji5OvGWYztKP6tTWw KR4UOiPUa00vGKRsEYYIjd ScDCMhaQhnpVM4yzO1xH3h LiBUaGUgRkRBIGhhcyBkZX Balb9uajCiFXNsNQLxf2Kr fOByqOEmjoCbI8Qkd6YzHH Ekmy29ZNvdzJAiqr29AI5u X8Xio8PqwR8hJVobIOHom4 SgcWLqqLLbCULjo1VuU0ye lhesTFzmsPUkmU4fNPPjJU e8JJFkf8WpLJKgz1NkDfCj roFbEGYoMXJhAFJovZ18TR A1vWlbaHrhqhTtWU1aGBAe qxEsRDDcNGJvmK7fLKvtnz TyCLJmfnW0n6J4MTiaDBAv duPvNzbiTAQ3ayAedoX8uH TfW6udpremCCwhUAEhv4Xm cA0dhDPJgVWeb6CccFAxtC LZwCAgCJ5rzpQoKX4eZRZ9 ODggKENMSUEtODgpIGFzIH Q7JEqvEvghQEL1tcLjQQLx j1GxEEyfT8crQ70lhApnwD w4mEFkzBtisURtaNEpNKEw wsI9f8V0XPUhx3WglspvWI BsYWluXGYyXGZzMjJcbGFu ZzEwMzNcaGljaFxmMlxkYm FwLPElVRqkY4myHxKtRsJj TxjdWQP0rM== [id number] 16:47:26 Test Item Value Reference Range Interpretation Comments Case Report (test code Surgical Pathology = 104) Report Case: [id number] Authorizing Provider: Nathaniel Dooley MD Collected: 02/26/2022 04:38 PM Ordering Location: [address] Received: 02/27/2022 07:57 AM Service Pathologist: Gene Carlton MD Specimen: Cervix DIAGNOSIS (test code = j4chyEJiQCOfo3qvXHZzsR 3220) FuZzEwMzNcZnRuYmpcdWMx IHtccnRmMVxlcGljOTYwMl qtefAqLNPxuWEbX2Zcuodm HPbsGA5yIW3esZopzWPirA QnBTSeDsUzv2ncm153pJWb q7lkFIJQubylzTn2mMhmW8 9pu3Q0GxrgQ72ysWUkQKI4 JXAiNFYyvVGvSCDaSMD1GF QjfHZxI5kbNYTzAC2mnacs RLquPAgfFSEdiQA4TXHueT XtA4ReDZBhUSblGKAgucw0 WwLmHm6oqGJucPmqFZdiCP MnVHFzPGadYAKdXlMuP6PE JijWGTEXEAOOLZRWEP4RN0 q1ZTWphqo9XCRnESSIROSW LkPNR6aEFQFUMkIUHVNGLC NfU1MmS5ECCY2QBMHpZ8WO XXZKHBRSWM8AQICbTIVuPU Nav87sCE98FRdpSXO1q2mp dGYxXHNzdGUxODAwMFxhbn NpXGRlZmxhbmcxMDMzXGZ0 bmJqXHVjMVxkZWZmMHtcZm 2tlXTgdQnqErWwOKDzi0hm jbMQyzddjTy0n8jgJWYrSh I4gTZkEGypP3mnhlEneNSa LOZhCNu7qU59JWHwtP2fyS JlHMupejAmJhK8MQhoNWGf JhN4TCTzpJJfHRAgW6zoHO QwXGdyZWVuMFxibHVlMCA7 rGkka6J8vTXytYLuwOykYj GfFfTmRePIg8MrLIz4hCsx Z9YmWLAcHbC9yGGqZTTmIV muBGUjYINrauW6sY36HTda fnW6bTBsw7Dit22du056tT 3puBAbBKW6ZRZtUAKpcZOo SPGmQHO2MVUpwADtR3fyFM OxZV3tfpwsJHjtSWkcELCr gWS1EPUlaKGjH6BdBAZdGT ypEUJyxca1ChPrFe1toMAs eKodPOiwi7jiy7gzhCGxFe f6ZNVdBhBwZzuaWDrje7Cq v0urGVPpex0iAMV1oZJumI hel7E9iNXcPSEcjCIuNUQe HG9bcGQmSSQuhR1qgzzzEF BnYnJkcmhlYWRccGdicmRy Vy4jlLemQIO1LRiwF6agkI 8yDfO3MOncY8akoS9dTPa6 DTwxLCVnvDG7zlB2DFZheZ InT0DtlA6sRDMjBV5wkrp0 n3vkDBU4YTayCXAlEsE3sc D8TSBkuBIzHVWdaDlhEYir g599MXH5VjRaQDObl8SnT8 SunRecK81vjOlbJ18rYUHi rLruhC3zqBuivO0gIsAeGx LpPNwtmZnwTC9oHUIyE5hs zMLwZSWbNZDvP2laHxDafP 7buNxaQLoyknKoCKTmNny3 KEHbaIKjZHAgSar9PXIyYI TdG34nawodSMZ2cW1ko3iw d8BeQStoETD8PHKey10oMG ngqfY0LSypDs53WPoxOGB9 KYvgVNA6nG== COMMENT (test code = h5uikNWxDIOimBM8NkZsOM 3356) Sns9jyy4AhdEGjdMKdEXvr mUZfubLgik27pZL0iM41KY 4aBVMmHbD7PDKdueA3Dow0 IOAdHLKtgVJwZ256g6ppr7 aucpQljOD1gGnwRFBqsfvn PdP8GIahNUFhwytiWUf4KZ llOKEgdOQ7UKWvoLCbO9Nm TYIoPS0vtaf2TJX9KRdgYF EmIdA2HXUlfUEgBGGpsLlk FTmeq861MAR4WgNmSXMybh WonLpjyZ4lZuHtKQJRoQSr rLS7hMRttWhgZAvqz7Vejj ohu6KaA9FyvacwUUcysXDk moMkacHyl7FhGI5oWJhhUF I6vE8rAVUzk1gxDRWoM2Uj JZ9lN8Hjm0miXHGan0vdru QdNEM2kNPlOGBzsvLtnwEo IBD1lCOmbUErpKVelXChdB Jez7VzaNX3dhDiykKpnEG0 DLUlx1WwjF90LHGox65uQI Bhcn0= CPT Code(s) (test code b4qlkLBnDLYmgYH8AbHnPW = 3359) Thu8tdu3LewGMpgZTaIRtu hEJzitRrrp04rLP8qQ10QO 0wOSYrQlT8JRKnyaV8Spq3 PORtISOipRCrP266o3fjb6 nutkGhlKY4fAnlDYKfkqnp XuJ6LYzwRHJrmjrlHBt6GA lrWDGdhMR1YTAyjNCmI1Ge WFJoMU9nlrb4NBD3DUtjQZ OgKvG1GZFfpOIaGRXwuVsl XUmjy582DQO3KnVuWWQpdy NiyEukrE6gJrZkVYA9UZFw NVxwYXJ9 CLINICAL HISTORY (test c3xywMLcYNCnoRB1VyOwPL code = 3356) Ugi6qxw6AmzGBjiLHwDGfg sKAeaeSwpt44oEB0eK13VM 2hOTNlOxA5ETDckrH4Yan4 RKTrUAOpmHCxG457t3ryy5 qucdWvsWG9oHpcDPYtjvgk DwN2VUdyLMSyzfcxQTb1NP lwGSIlbOE4HJVczCWrQ7Rd GCYqQW8uhzj7XKI0PGylGY EnLsM8UINzeEMpNZRlhQgr TFllp544IOV4CfZnGYVavh OdaWqpbQ1uUiNjUQIcSTC8 Xq5gYH7dKP5fvZOsrraxks RhokZqocZbudBwayM2VDAy x1a3uOYYBDk6OV2jRWuBYH RlfoJmDhcaeX1ctDkylEIk JE35vX4mkHOll0BmlFVcVA ariBfdzgPfkrGvYNanfD0r xDqmSX6jKvS1DQjkqiUsWD GwRAGnwB4pLSXae1sldpEf YmRvbWluYWwgcGFpbiwgU0 0EFNMifDjlnGukYIEaIK9m t1LzlpRcZSPtBCJgN4LhVK Jou1HhYRG1pcInBVSfXHY0 aHB1r38fcTswWKYlON8xXH VkTJyfIJSqTMqwXN7zDHDy jiGcD1InOJ2pb7Qtf8l+b2 1clS2wS6llO7dvBCT5 GROSS DESCRIPTION (test v6qtgWRvSLRtfLPKQWHzM2 code = [id number]) xhbiKfQNEymNPsT9Ubtuey DCqdZB3nRO6ydPhusYNfbP HdLS7IFOHoSwUfANIfuFFx frYrVwQmPUIxmHJbsME2TJ WoDN6wgjdaKUbqUSgtYFDq nmK8UHCozSWmA6AiTZExES 9ecvbjBIF8IFzzdV0rbbDO NwkiVv1fhGIncVkoJrBjWr NoYXJzZXQwXGZuaWwgQXJp GDe6yU2PPxhzXGM3PUICDs scPMYhFX5Qe4heSNKdkEPm OPD8LHxkyPHzVROtTICbQQ j0BCLgRUmawBWnCL9zzQig JoecvKzha9DspHEjZHgjDJ LeMFZnISjdSIQrXO4QYjQs BHE5SZz9ZEMzJIo9DFv8DE 4HXtUzEOXjJRP7KET6HiCa GSz0NYtcMT2YUFE6EDA5TD nbIuN0WBK4JzRvAMOpXtIh XGYgQXJpYWwgXFxmbCBcXG 3qlUwkcEWuhtRXQzHEAGY6 aXguXHBhciANClxlcGljTm VzdERvYzEgDQpcbHRycGFy XGxpbjBccmluMCANClxsdH QfgVzonxRmLEEcZ4LnraYf BVjyWNEnvt7nsCckGBemVm AwGEJxm7q3yTH2cVBemSZ5 gBUrjHtmSiNrWS8lpQWeCN 3yIPcfTDdydzKyi4GbAT13 bWJlciBhbmQgImNlcnZpeC IgaXMgYSAwLjUgeCAwLjMg tQUlJbAaA31kiUSrITzqQK xzr81crNO1dDVpzGEsTqIk A17cxuKuNOVlwJyxNXK6zG OsYHNof61rURB3Sy3nqJWi RPPqoqM3v0OjDFktDGLfFh cdBRPqVBgurZGvEH9JF8na mGHrKMMHmtK1spczWUfLCV EIEDAzBKEFNFrxjJxirL5i NVstyI7nMA8KHATjHOigDC AbdYYMCED7VL1xIPayuWSm lvsjCZUdB8CkZ6UebaXytA YaUOBvrjNon6syPOW2ZMRi rWGajIEdTmGaXfjoDVO4TH pck9rhNVI2SDBldJEvnOYn LSfsNnDwHstvOVApG9DxZ1 XpveP2TUh5 MICROSCOPIC DESCRIPTION a8fipARvTIHecQC7TtIdMC (test code = 3371) Ycb8vto8ZwbYHgkYLgDVls zTXzobJcev58iSQ9jT46GH 8mKLOcHfN2KJXtxqX5Yma2 PVCdVOJjfNExU904s8vei1 qwcqPbxAZ0nKzmNJVihjmq DnI7NXskVINfaxspRFf2SK hwOQRocFP8MXMlyBZbN3St IPYxDK9otny3JBF6AHcdCH IeGuX8FEJcnYVoROFjyDsn FUtwg573JUL3FaSpLEIxrn WyrZzdrR5aYmOiPCGWDLMm b9EyCIUcUAEfzn3= SPECIAL STUDIES (test q5kdjXPnGOSxw9klWKUouY code = 3376) FuZzEwMzNcZnRuYmpcdWMx NEptrvErQXmlz8IgA7KdRi AwMFxhbnNpXGRlZmxhbmcx LKTxYLN2meVoLHXfXAhuDI QmZBmzPh2edFAodBigVoBr YKEcp9tuzsKHnudboEg4p1 meHNMdBaQ0wBRrOVfdQ0wg ngCwbHOjG6KrcEXjzTy7u1 ogYtAqArK3cTUvGPvqG6ne voCqhUKoUCMwWVk2vF96HQ CroU6btYRsERmrluWuAtY5 ILnyPXTcKgG2EMVqlHCtMZ OeW4wqDNGgHKwiOKKaOLva rBJrPUR8sAvkf7E7yZMarF RkaFdzLxZyOqLuMrAVo7Vi LJt7bMyzW7AaISXyTgX7xB QgUGFyYWdyYXBoIEZvbnQ7 cBgqdyJlv09efXDbNQUpQR ZhGyIouEkrZGQiAANIi2Ue xWblANM7oVj6hNvcSlknJQ M0Owr1CA8xac94yko8kAxm XALrjahdLsD4FSvkCDCjqw trWRn8NIkbWHNfsBM5KQTa jMJbA4SfQGDdIO0gpvk5FR B6KAioFIAjPuE4XZXbkMKi XBVavIxnZXdqb704XJM9Xt OnHP9mU5Ffc2D1bZ9ohNSt WUYnzKHgJzWkPMJwdy2lzO ZnKLyeu1KyWTZ3ftU9pCXc hSAaBRZaTT01Jaoez5JbXe bqp2CxR39huPG4ROjjs1ta SW7wMiN8obDyZYirr8bwnO 1wKoF8NZlxRI6wPK0xCDLj qH9bxbhvLLLgElCsqlkvVS YgrBquyvQeJk2ewRpsOUA9 MRwqT7kelF8xGbC0DIcfH7 xxeX7lPSn8HJfqoWX7HLLw xP5qVL5aewqse3gxZOpuTT hwYRJipxW5nrS2MXTkwOBx W3TcxP3bHBHjXZ2hymfys6 twZKV9PFedJVXzEFT2OkRt QWChn6Lunpe7FkQcn4KntM QjDCguQ85dz498KXZeokBo W5uziLQfnwnjpBNwgfsyUJ haklC8USOzUJUtFNboPTLj XGZzMjJcbGFuZzEwMzNcaG ljaFxmMVxkYmNoXGYxXGxv W4poVjLwV2QbMPUpJvOwEH jsRUajjZBrrEBinKU4sZ3o XW9yNILwoMQzA4RqWPXzba SreTDfVNX6eYSyqWPqRW1r HNmofMRqa0epm4EuP3ukcR fhtLB3GM4kQJGzEDCwOIcr f4PwpP6xSgkjyBRnynhcKF xmczIyXGxhbmcxMDMzXGhp X3uyPtYjWQOelSijNKvxh8 NoXGYxXGNmMlxmczIyXGx0 cmNoXHBhclxwYXJccGxhaW 9pSsIfImBrFiqpGR1dGXQz A1zekJPfDICdXIFoI2ibIy DvwN0nrFjoMXnbDxGgWfTj LdXNv056kd2pSPVooZYrnn RZaPKqlA6jGBscVVvsGDqx kAGgJXmqh0meGKBha5u1rO HgVYUiajWhi5eiBCxxngBm YLMleZMxkTYpOPFjx89aBM yjgHjtpTsnHEGpd1VocPbu m0XfVoCaJOojs5MfZ10esU JvbCBzbGlkZXMgcnVuIGFs m17lq4fgNBFsWgT4tQHubU T3fUKxgPQrf1MidQmnNFTe q4fsLLAuck8nrttojZSbm3 BmtF1ulbcjKMugeUXpymKa QGMds6p1nYHxXXSnZKIoZF hfqIh0GRXct446kr1gdzH1 mQOqILG2PBqzYGGqDQIygu UgZXZhbHVhdGVkXHBsYWlu XGYxXGZzMjJcbGFuZzEwMz NcaGljaFxmMVxkYmNoXGYx KAkzG2jvOkWkO9NfZTJpFz FhgZLuC5nolPEdTVPnVWnu XGYxXGZzMjJcbGFuZzEwMz NcaGljaFxmMVxkYmNoXGYx AImvL6glOvVbC1EbHXFtNn IgIFxwbGFpblxmMVxmczIy EIhnyyoyYTJdBMbhF1omCz VmCYOchHrxSXycs3DlQGDh ODDpXvhfbsPvMEw0zzHwYO BhclxwbGFpblxmMVxmczIy FEggqcdjLSCgFQocI9exPo RyTJGhoThsCSete6HiPUFa XGNmMlxmczIyIEltbXVub2 vcq5NaQ6uqwIggnPK3REVr V9mxeSFxaVB6HUP8vM4nFS hwngOvCLShb0DaXPEoOXLo PrY2mX8hXHD2IdHAcWhgFJ BsYWluXGYxXGZzMjJcbGFu ZzEwMzNcaGljaFxmMVxkYm KdYQWeBVcnS1htNlMkQ9Qk YROaFgGajTclPGfnDVw2Te xwbGFpblxmMVxmczIyXGxh joyzPLYfCChmT6qmTnPiBW DgbYqdEWuvp3WnGQKoOCRj MlxmczIyIHMgTWVkaWNhbC YUJY67CQPvLZXbxPsewC3g dKXPEADtyuV3f6M8RSmvAT SbALo4QGrgktJzRPGkwO7u UZFkDU1uVHp7qfOdANOap0 HoIF6gAOMqoFHnMBA2IFZx p3ZiY8Wmr4NqRPKjRZWuhz 2xygZnTsQXzLCfNCPndg65 MQTvMV6vZ2zaQTQdKJCtlh BlxYHsm1CbIGIsmOW2fKJg ZE0DZaGUt43bAEIvFHTNwg GgKQHznZbehNN4xbE7zJ2e LiBUaGUgRkRBIGhhcyBkZX Qcav3ozbLeZLReRQYvn1Na uOCgbDEwtgIgC3Iiz0OwSW Lciw12RVhhpBAzzn27QX9a X3Yat4IkcX6fCTyyNXTzj8 SneVRgwLXdHRVcm7AkI9jq sfqsWCzwoMZexD0lPQCpSE o6XRMdm0ObCTCay8QhAyUh ccLbIDOgOEQdBUSccN04UF D9oYfcgKanzoEnRG2tYPMh huCpZHJpYVDwvX7hOUurnw FtMHGbxvF8e9L1ROagFHDn fvFzVwnaMAL7eaPhniJ0eG MfF4wbzkpxBRkdPPBdr3Ql hE3dkXUPbRNqd3AyxJWisW WQgPEtMB5nniTcLD0wLSY2 ODggKENMSUEtODgpIGFzIH U2YHpxLdmyJZY5taDgESAf u2PbSDvzF3bzA58mhWmarU w9vKYgzBukuOEpmONmUTUn krF7v1O7PBKfo4NaelisEM BsYWluXGYyXGZzMjJcbGFu ZzEwMzNcaGljaFxmMlxkYm VuGNXqEBedF8ppRsRhPzPh TpteZAX1lA== [facility] Lumq[facility]72 16:47:26 Test Item Value Reference Range Interpretation Comments Case Report (test code Surgical Pathology = 104) Report Case: [id number] Authorizing Provider: Nathaniel Dooley MD Collected: 02/26/2022 04:38 PM Ordering Location: [address] Received: 02/27/2022 07:57 AM Service Pathologist: Gene Carlton MD Specimen: Cervix DIAGNOSIS (test code = z7mgzPRbPIWtt1wkSZWuoC 3220) FuZzEwMzNcZnRuYmpcdWMx IHtccnRmMVxlcGljOTYwMl eumlAdSVNkgFMcN6Qlcqcp FUrjGM9kEV8kcFaftFOgrT JpAJCmLyBmt4udf772zTPx l9kaPZMNymukrFe6vGfpR1 2je8Y9PqruB48ibDLyXRB2 EHTbBHGqsDInDTXqTQM5QI ScfPWrS0kdFTXwJW8avcyx LOzxHJwxVHVbwUF0LRTjyY YtX0MoETCcFDevNCWacxt0 FyNlHl5ljNCzwUuyOOjaKS MsLFOcPTfsSVWeVhEqQ9DD PemDJWXDELFOHYOLBY4LN4 m3GRAyinz2FIXdSTIVDZOY FoNPK4kVZELEOnXZMGARAW PaZ4XoW4IGHZ1XTBAcA2OO BWZNSLRZYF9YLWIwTAMyAG Tdv64tWM22IHgiRYS2q1hf dGYxXHNzdGUxODAwMFxhbn NpXGRlZmxhbmcxMDMzXGZ0 bmJqXHVjMVxkZWZmMHtcZm 9anULdqXldRlQsMHZdg2eu rlARlpcspNb9r9snPTRhCr R9aYGrDGzrT2gyduDmpORy PZVzEPj5nR63HBCudZ4ogL VoFSttrdWyDpI0AJhsDPKc LhC8LRTvgNAeWTSmP0ooLW QwXGdyZWVuMFxibHVlMCA7 jXihq0H2rWZzpFPnpYfkOl WpXlDwYkNLd6CdGYs3gUrj M7AhBEXjJuA1eZKhGLPyXK yiPHDqDTHvyuD2jV31LBmh lhI9kXOmk9Puf91fg424gM 3vzOBeLJT1YAYlSDNamDZx LRArYTX2NVVfrKBwI0owAW EiLZ8hzasvFIkgBWhqPTXy nTJ0TDVosKNeY1QoAOXeCQ fjUNFzqgw7FbUoJz0tcKNp xAqmXUixd9bxr0pbkACaVa j5LCNjPnFxNllyQFbmk4Ix u9pxQQBabs9eXAG4hZEiqV etp2Q3kBHnIRNsxPOlVGPx RH9iaRNhUGLutP2jdjzfNX BnYnJkcmhlYWRccGdicmRy Jc3efZfqUZT9OCggU9mbsW 7lOlV0UMmtX5ixdU8gRXz4 HQpnXVSrmNL4afD8LJRbhO RoN8DkcV5yVLBhEW9aiwy8 x6kzAYH7JGkwOSHoWsZ7mi B4SQWdzXGwTWUuhEmsTEqh y302AEP1HdAlZPTsz1IfA5 BcnMsiY98jpTypT57aMAGm hHzgsA1wnEkrrD1qFdTkRp OfDGutjEkbHO5zCMByG4qh aQUqAEHoDNSoD2clDpHleH 5ptSklDWbhvqPzAXTcXnp7 HEFckEZeYBEkHxl7ECAbRV GyO05pigzwNSF7jV3eo2bp z9OlRNohWGZ5OGVdv58eYS zbndW7NJnyGg26DOboTZS5 IFzuWKY9aO== COMMENT (test code = n0ymkZIgSEZxiXC9LfPxAB 4670) Iix9sxu7DfyKBelKGcOMlt eTAklqJhoe59uZM4rF60ES 2gYUWxDoC5HMUeesW9Crr8 VVYhKXHsuFIlI160s8jaf9 ybuwKhcUT7pBvmTJZnzpwk DzC4PRcsLVPvkvmhSCa5DZ zeWQHouOL4HYHfaJWtB8Hq QQNzKA0uyxp4MMK1IEvzVT DyMsN5UNUgpFUzOIPgmAis YHhcj909EOJ9NvRuDNHobl GnuYokcG7qDyKyETAYwKBu wXV5pRHboSqbYHpsr8Rqiz otq2YvJ3AjtkcxLUnojJJi txPvwkEjw6WrFW4uBXpsPJ L1bD8qHHPkl2dfWXGkO8Iv PT5sV7Sko5vvVIDqz8xoyn KhLOW6qWMuPEVgldNbqrPq YWK2rMItlVMmdGIbaAZmbU Eey2HycXA5nsUeulBfdSS4 UJDfh1RcyI89REQwj61jYU Bhcn0= CPT Code(s) (test code a6onwSHrCEVvuBS4GcWlBK = 3356) Pjd7sje4TlzEMguLNdELoa cJKmktMbxp93gOF9hH81DR 1cKVEzWcB0CUMwuzL7Gso7 GVQwJJWmxOVxZ754w9jzj8 jnelBvuRB3bFpxKDZndzhf WaN8CGihAXCrafuhJFe9JI unNAEafKK0CNWpuRCaX6Ir XXKkVO4wjmq0AML2HZhrFB YfImB0RVYvhYNtDEGnsIwm ZBgqq383GZJ2KyOpOCCboy NujYcubD6oFdQaDTE9OWXz NVxwYXJ9 CLINICAL HISTORY (test n7yrvGAoBFMcvDB1CwGmCL code = 3356) Kup7wsc4NyiXLmoJNmFXvf sBPakrRxxm03bQT4wA77FP 9rLZWhIiJ1POHateN4Hew7 BCSoJXEnbRMaH142a5bmx1 gfluGdqRG4kAgqRHWwxqbd QsG6XMndYHPczzcbDWj4DP apTHRqePL7AMTysMHcW2Ae GKUoKR8qxwf0MPS8SWcpNP JfBlX2WUPcmUQsCWZapRte QLbjt439VBA3GfBlQNJcip GrwAmzxZ4fFdBsOEBtTWC5 Wb1fYN8dCF7erFTsqcgkym AzriOobdHirtFodpP6ZISa h8r6rIVGFNu1WQ9nSQeADF XrhyAfQtewmF9flHcdkJYc LJ66gI5laDWki5CqvIJeMA dtmTmobaCbngDnYGzodB1i aEfeGW4tUuO5SLrndpZgLX IlPPKdqT2nPDCrv7gbdjRl YmRvbWluYWwgcGFpbiwgU0 7PTSEsqRvmuQvhXWGlFM8g z8HhrrJdVERzQWWpZ4KyUY Kwb8IgHNC4ucBfBRBoOYP0 fSS0m70rvLfvZVFqME8xSI ZyTRgdKYOfLRdlZO0lYBZt mgVzN9QcHH1tk4Hgt5i+b2 6hrL4mM6krR6sdWHV8 GROSS DESCRIPTION (test u1gctPYeUJJuiQAFRXVaN1 code = [id number]) csufQjOUDdeLMsQ0Fsifmx XKxrGW5sEX8xbHqqcSOijX VlCE8WFIXyDzJlAJRplTNz rvUxSaBjDEPtpALgyPD4XY UyWP2yrtntIQwkBRpkLEKg msY7YZYrdFOiU4IqWUKxPD 5dtyemJTT1CUpnhC7vfnVM XsidHw6kvDHvkKktKlCxGf NoYXJzZXQwXGZuaWwgQXJp PQo4xQ5WHhsfHVS6JHIDEo kcQSYdIE3Jc2faLGGmwQYv WKG0XBuayHMiCDFoOKUnQZ z1AKLbSFtaeXUaFA6mkDsh ZxpmeEzvf0FdjXWeXZpiLW DhSHZlRHnzQHSlPK9ZIvWe LIM6MVj1EYJiHOo8HPw4ZZ 0TLyWxSVRaNOC0PGW4CcUl BOw0OUtbCI9DDXB6XWP4HQ xkKdU1ZWJ5KiOjCIPsXmGs XGYgQXJpYWwgXFxmbCBcXG 6amCerfJNuujBQPaXWGFL3 aXguXHBhciANClxlcGljTm VzdERvYzEgDQpcbHRycGFy XGxpbjBccmluMCANClxsdH UisXwskaKrPKXwW5XztdQa IPfrSJPqbv3nwUetKHgpBa KsAPTaz4h8sBI5dUEmpCZ9 qPWldIyyAyCqFU9jqXHvTU 7gJXjmGUqcpeLwe6GtDH25 bWJlciBhbmQgImNlcnZpeC IgaXMgYSAwLjUgeCAwLjMg oAGsNsIlR69ucJHbJKzxWF lkc57ckGS8nHJkpQCoNtTk C45nzfBwWJSktCwpYVG3sY UcPOGst20hITG4Hm3fxJTq EXVjrqQ4y7RvBBtzLSIyNe fpAUVqIKmqoNLgQR3YP7uw oPMtFZOMhyZ2xjsqXDnDWG HXYXInRAORNVzxaRzibR8d YDovsZ6yWU7OYSKhADjcXR YirNZWUSZ9RF2dXQpqkKQl gcmbSINrF0LyB5GppoNxmL WcIWDbxaCwj7bjMFU8QGKc fGQwnGUvNwTnVzcgGPH9WB rqh2yxDGY0LLGbaJQgxLVr HAlyNnIlKtriDSHbT9LqA1 KrioV6CUg4 MICROSCOPIC DESCRIPTION v7npaUThVVLdoOG1CuMeRS (test code = 3371) Ibh3lmb0UymTPtxXQhNTxm pWKqndNuol00pNH2zC63SV 7dPLXkSdZ4SHCriqN1Ttt9 VAZrJJQjeUExZ421z5kid1 svikVagGU8iAncWQQdvftu PlK7EBfiLHAseytxKFs2UP zmRYIonCD6YDOreEZqS6Wt VFToOS7bymy4DDD0QJgoNO NrDqV4TCSzaHIiHDOotNng DDvht316ECV6HrVqOHBnhw PksWhtkG0fWdHdYZQOPNGp j8PeMJLeXWBixp6= SPECIAL STUDIES (test i1djcAFzDCHsu3niUEDjkR code = 3376) FuZzEwMzNcZnRuYmpcdWMx MQiubsHtLNlvm0GyX6NeSv AwMFxhbnNpXGRlZmxhbmcx BMNhKGE1zuBxKZPlVKcrJM TeNLozDi4yxOLlwGwzGjBa YVHal7ddggUHoqvpgXn7s3 plBSEuZmA6nODfLUfdJ9ls cdEzuIEbJ6YlhLUmrAy3p9 czBhUwGgL5jQYqBGbsZ2ti miYscQQnGCXhTZe1mP11DL YqoT9bnAHaLRxfoaXcSjM9 GRkeEDXzHzL7XICtpFTdXB ChP5nvMJJkKBvtOFUkZBpc pWFrGTR2qJsuz9C2eUHztI CbqYwnHhIcFxZiZnXAv7Lp YCv4yIefF4OgIUCaZkO1tZ QgUGFyYWdyYXBoIEZvbnQ7 eDicebIbc03zdUMxKYIiKZ TlRwFdkUojFFSqEXPXa9To rWugIZO9uKx8rKuaNqpbNO P3Mgs7LL8dcn72nvb4vSml WSIsqmxhMiF7FBhvCBHpmj dbMRi1ISmmBGHjtCB3CFSv gVGbH8NhOMEyOB9oufw1NS L0XHrwYGChVyA1WKCteMFc RSAitOfqLRtzl290DMO5Zt HoVM5tW0Gqs7K5uO0woDEc CVNyrBLfEmJaIUKadg5qmB HhFPisc5FmKGJ5qjH4uJLm pIQdZLVeNX98Gzlmm6ClWe tzc7QjS84soNI5DRlcc3hl WT3tUtT2joDlYXsaz5qudS 7gZnT5LRubIB6xMS5nBOHc lK4wnjqeWLAbRcPfcxiwQW OkaZbxttSuGk5dxIpeSRD9 PJakX9uatV5lXkK8YOutF3 rplV4kSKh9TOmnhAX1VWIi zS7nZI7cpepcc6vsCHhsCV zfZXKrtrI4tdU0YJNnyQJh J6XifP5wFQXdJJ2qufxlj6 tgWJJ6USacWKRnTXO9FnWs PPIno2Bwgbr2FeNxw5CxjQ GtCRrlL60tr137LBBqdiHi J8bmiGBjtzbueABkysfyCW rtynA6KTNeQJRgVYdeOVZm XGZzMjJcbGFuZzEwMzNcaG ljaFxmMVxkYmNoXGYxXGxv W5wbSfCzQ2DaILCeXfGkCS maPWxfzNQeaBSdtIP3tE4e UF3jVULepRHiW1BpQFAfrp KyiVHgHTZ6kHFtbWMiEA1l GBvmxIJmf7tkn6SbG2ouiU zdqDB1WS0rJAFlFDKvCPhb x7DexG0wNfvhxPRrdthnOA xmczIyXGxhbmcxMDMzXGhp G5foFxIgTRHseZagXPrso7 NoXGYxXGNmMlxmczIyXGx0 cmNoXHBhclxwYXJccGxhaW 0nEfRgZlOvSrssUE4vVTHx M0bduTTjQJHsWCWrB1vyTk BaaN2kbAntLErfDhBjOdTn VcDBj530jl6tPZPisETgrp JUnTPgtN1fVAhqBNjhAMir zKDdVIset7ymSVTdy8s0qM UiIXMqcjZzq3ubSVfugeMy SCEwzNDojLUpZIQnn65eDJ dxdHtsuNeyEPBam8MlsPqg z0MeFyHoAWybh7DyB77toS JvbCBzbGlkZXMgcnVuIGFs b20kq4dsIBAwMbK7gKDrfX C5kLKwpOUhn3GodVkkTHRb i1mqQXBprk7aedinlJEid7 LqsH3uvrltQGxjtRMfauOa MENdb2p7dANpKZTvDURsKZ rxrKz7VVBky534mi3bjxG1 fLJyOLJ1OIhtZBYeEIUkks UgZXZhbHVhdGVkXHBsYWlu XGYxXGZzMjJcbGFuZzEwMz NcaGljaFxmMVxkYmNoXGYx AFxgN0drKtOtN3LuFCWyEn MpfLLtA7hjeCMpJOSnMTqs XGYxXGZzMjJcbGFuZzEwMz NcaGljaFxmMVxkYmNoXGYx ANdaH5ztCwJhP4YuTOIuVt IgIFxwbGFpblxmMVxmczIy WHjjzxdwMGZaKOgsT9paVk AtDXWjrIsxWHnvh8UnEPBm QXJjLxxjaxMmMFp8ekRsLS BhclxwbGFpblxmMVxmczIy AUaxqvcyXWCjNCsuE4rmHm DmKLOfeTncADggv0BrYIHe XGNmMlxmczIyIEltbXVub2 yam8HzO4diaIgaxFF7TZBf Q0newSAmjSL4BZJ7zK1vTT qcfeQwIQGgr5PeDIHoPZAb RxJ5jC9gEOR8WpRJdGegFJ BsYWluXGYxXGZzMjJcbGFu ZzEwMzNcaGljaFxmMVxkYm LzDXIvSSmrZ8sxFgXxG5Em GVJtOnCraPujRHpbQIi3Ef xwbGFpblxmMVxmczIyXGxh gobgNDKdLBgcM9ivRfSdSA DpfCdjAJbkj6RiJZIpCQVi MlxmczIyIHMgTWVkaWNhbC PLMG26AIMxMTKtxAcvjA7r mPZJUFUiwzS7b8W7ECosIY HtRQq5RFnwtqRbGMZttH4r FJFpCW8vWAk3qjBlGRIwk0 EsQH8iJPHxeFBjTQT6EQAr n0DpA2Cdy6KhFWOcRTUivp 2rnnWxBsVTgRYgJXIoqn62 DPToVC3vX3qjXOFxBNRckm MnfGAke4XgTBFyfJL9mKOh MC1IPsPLe54cSAKkKVTEwz IbTCLfvQkrbAA1osB2iX2a LiBUaGUgRkRBIGhhcyBkZX Nkdr4onaEfSAUpZULhj9Al iDFacFRljkMnS0Gwo9UgME Kfgz22XJmjpQKxtz92VZ1a V1Rdo4LneI8rHVlqMVEnq8 IpdGMvjGUeNULxd4TdE2mt popkLHwrrHIwyA3zOUDfAQ k8ZRElv7GtSNOmq1BxJaSo dgZkCCAcETAcJBKxpH91ES N6gKhptVgwjmHzBX3xGFCd rcEmOQFvUDIzqX5vEKiiyp CvLGVihoA9l4Q0OBnnFZYe otGhOrqpMFE8fyVsauP3uW JqM4aznljuSVdcKEVes0Tb fH3jpJBGnYQhm3UnqUJiyP NYwMAwGR8wqxZtDC6dUUI1 ODggKENMSUEtODgpIGFzIH S5FNtcXgfrQAD4xiNoISVx e4WmEUntA0ieV28szQmxpE x3eJEhfLfitCSkgZSeIKBr igN6h1W9OTSsy1JznmksDC BsYWluXGYyXGZzMjJcbGFu ZzEwMzNcaGljaFxmMlxkYm GbPDZqFJerC8brQeWqUqMb YavdGYK2tU== [facility] [id number] 16:47:26Surgical Pathology Report Case: [id number] Authorizing Provider: Nathaniel Dooley MD Collected: 02/26/2022 04:38 PM Ordering Location: [address] Received: 02/27/2022 07:57 AM Service Pathologist: Gene Carlton MD Specimen: Cervix CERVIX, MASS, BIOPSY: - SUPERFICIAL FRAGMENTS OF SQUAMOUS CELL CARCINOMA (see comment) Signing Pathologist Direct Phone Line: [phone] signed by Gene Carlton MD on 03/01/2022 at 4:47 PMThe patient's history of cervical mass is noted. The tumor shows focal necrosis, however, there is no cervical stroma present to evaluatefor invasion.[id number] y.o. female who is incarcerated with PMHx of AMANDA and "hemophilia" who presentedwith several months of vaginal bleeding, lower abdominal pain, SOB, lightheadedness and fatigue, found to have symptomatic anemia (Hgb 4.4) and cervical masses on imagingA. Cervix.Received in formalin labeled with the patient's name, medical record number and "cervix" is a 0.5 x 0.3 x 0.3 cm ochoa-marin soft tissue fragment admixed with blood submitted in toto in A1.OCTAVIO Timmons PA (ASCP)cmPerformed.The interpretation of this case included the use of immunohistochemistry or special stains.Control Slides Examined: In-house known positive controls were evaluated along with the test tissue. These control slides run alongside of the patients sample show appropriate staining. Internal positive and negative controls when available are evaluated Immunohistochemistry technical testing was performed at [facility]ology [facility] where it was developed and its performance characteristics were determined. It has not been cleared or approved by the U.S. Food and Drug Administration. The FDA has determined that such clearance or approval is not necessary. The test is used for clinical purposes. It should not be regarded as investigational or for research. This laboratory iscertified under the Clinical Laboratory Improvement Amendments of 1988 (CLIA-88) as qualified to perform high complexity clinical laboratory testing.Prepare [id number] 23:54:00 Test Item Value Reference Range Interpretation Comments Unit ABO (test code = A Pos 2642693) UNIT NUMBER (test code = [id number] 934-0) Status (test code = 0589754) TX_TIMEINCHART Blood Bank Product (test code RED BLOOD CELLS = 2263) PRODUCT CODE (test code = B9776T68 933-2) CROSSMATCH (test code = 2264) COMPATIBLE [facility] [id number] 23:54:00 Test Item Value Reference Range Interpretation Comments Unit ABO (test code = A Pos 7460071) UNIT NUMBER (test code = [id number] 934-0) Status (test code = 5953927) TX_TIMEINCHART Blood Bank Product (test code RED BLOOD CELLS = 2263) PRODUCT CODE (test code = P2362G70 933-2) CROSSMATCH (test code = 2264) [facility] [id number] 23:54:00 Test Item Value Reference Range Interpretation Comments Unit ABO (test code = A Pos 6346855) UNIT NUMBER (test code = [id number] 934-0) Status (test code = 6243705) TX_TIMEINCHART Blood Bank Product (test code RED BLOOD CELLS = 2263) PRODUCT CODE (test code = D3435V00 933-2) CROSSMATCH (test code = 2264) [facility] [id number] 23:54:00 Test Item Value Reference Range Interpretation Comments Unit ABO (test code = A Pos 0547051) UNIT NUMBER (test code = [id number] 934-0) Status (test code = 5593869) TX_TIMEINCHART Blood Bank Product (test code RED BLOOD CELLS = 2263) PRODUCT CODE (test code = L6844B51 933-2) CROSSMATCH (test code = 2264) COMPATIBLE [facility] [id number] 23:54:00 Test Item Value Reference Range Interpretation Comments Unit ABO (test code = A Pos 1867227) UNIT NUMBER (test code = [id number] 934-0) Status (test code = 1924037) [facility] Blood [facility] Product (test code RED BLOOD CELLS = 2263) PRODUCT CODE (test code = K4404R58 933-2) CROSSMATCH (test code = 2264) [facility] [id number] 23:54:00 Test Item Value Reference Range Interpretation Comments Unit ABO (test code = A Pos 0135232) UNIT NUMBER (test code = [id number] 934-0) Status (test code = 6676101) TX_TIMEINCHART Blood Bank Product (test code RED BLOOD CELLS = 2263) PRODUCT CODE (test code = B3103P85 933-2) CROSSMATCH (test code = 2264) COMPATIBLE [facility] [id number] 23:54:00 Test Item Value Reference Range Interpretation Comments Unit ABO (test code = A Pos 3635202) UNIT NUMBER (test code = [id number] 934-0) Status (test code = 9424932) TX_TIMEINCHART Blood Bank Product (test code RED BLOOD CELLS = 2263) PRODUCT CODE (test code = D5409S18 933-2) CROSSMATCH (test code = 2264) [facility] MIXING [id number] 14:04:42 Test Item Value Reference Range Interpretation Comments IMMEDIATE PT (BEAKER) 13.6 seconds 11.7-14.7 (test code = 1487) IMMEDIATE PTT (BEAKER) 26.4 seconds 22.5-36.0 (test code = 1488) IMMEDIATE 1:1 MIX PT 13.2 seconds 11.7-14.7 (BEAKER) (test code = 6859431906) IMMEDIATE 1:1 MIX PTT 27.5 seconds 22.5-36.0 (BEAKER) (test code = 0280264430) 1:1 MIX, 1 HOUR INC PT 13.4 seconds (BEAKER) (test code = 1501) 1:1 MIX, 1 HOUR INC PTT 27.3 seconds (BEAKER) (test code = 1502) MIXING STUDY PATHOLOGIST Normal PT and PTT INTERPRETATION (BEAKER) at baseline and (test code = 4061357957) after incubation. [id number] Christina Ashby M.D (BEAKER) (test code = (electronic 2608) signature) FACTOR 9 [id number] 10:15:32 Test Item Value Reference Range Interpretation Comments FACTOR IX ACTIVITY (BEAKER) (test 157.0 % 60.0-150.0 H code = 666) FACTOR 8 [id number] 10:15:32 Test Item Value Reference Range Interpretation Comments FACTOR VIII ACTIVITY (BEAKER) (test 377.0 % 45.0-150.0 H code = 663) [id number] 05:22:17 Test Item Value Reference Range Interpretation Comments FERRITIN (BEAKER) (test code = 18.37 ng/mL 5.00-275.00 361) Adjunct History Instructor ID - LETTY [employer] [id number] 05:15:22 Test Item Value Reference Range Interpretation [...] (test code = 697) EGFR (BEAKER) 100 Interpretatio n of eGFR (test code = mL/min/1.73 values Stage De scription 1092) sq m Result G1 Jojo l or high >=90 G2 Mildly decreased 60-89 G3a Mildl y to moderately 45-5 9 G3b Moderately to s everely 30-44 G4 Sever ly decreased 15-29 G5 Kidney failure <15Repo rted eGFR is based on the CKD-EPI 2020 equation t hat does not use a race coefficientEsti mated GFR is not as accur ate as Creatinine [place] pura in predicting glom erular filtration rate . Estimated GFR is not appl icable for dialysis patien ts Adjunct History Instructor ID - LETTY [id number] 05:15:22 Test Item Value Reference Range Interpretation Comments MAGNESIUM (BEAKER) (test code = 1.9 mg/dL 1.6-2.6 627) Adjunct History Instructor ID - LETTY SURONCYUDHP7579-49-07 05:15:22 Test Item Value Reference Range Interpretation Comments PHOSPHORUS (BEAKER) (test code = 4.2 mg/dL 2.3-4.7 604) Adjunct History Instructor ID - LETTY SUMMERS, TIBC, % SAT. (WITHOUT FERRITIN)2022-02-27 05:01:35 Test Item Value Reference Range Interpretation Comments IRON (BEAKER) (test code = 547) 52.0 ug/dL 40.0-160.0 TOTAL IRON BINDING CAPACITY 211 ug/dL 250-450 L (BEAKER) (test code = 769) IRON % SATURATION (2) (BEAKER) 25 % 20-55 (test code = 2590) Adjunct History Instructor ID - LETTY GCBC (HEMOGRAM ONLY)2022-02-27 04:46:45 [...] WBC 0-0 (BEAKER) (test code = 413) Krjzrneuns2173-60-67 15:28:00 Test Item Value Reference Range Interpretation [...] Hematology (test Appears Adequate code = PCOMMENT) Xqzjsvgnwq5805-58-06 15:28:00 Test Item Value Reference Range Interpretation Comments Hematology (test code Clinic al History: 36 y/o F = PATH) with abdominal pain and vaginalbleeding .Microscopi c examination:W BC: Morpholgically unremarkable leukocytes.RBC: Significanlty d ecreased in number with hyp ochromia andpolychromasi a.PLT: Morphologically unremarkable.Im pression: Marked normocyt ic anemia. Clinical correl ationis recommended.Chr istopher Wilver, [facility] T code 81992 Molecular Testing [id number] 12:09:00 Test Item Value Reference Range Interpretation [...] in the absence of viable organism s. PT/[id number] 08:47:17 Test Item Value Reference Range Interpretation [...] 0-0 (BEAKER) (test code = 413) RETICULOCYTE [id number] 07:50:02 Test Item Value Reference Range Interpretation Comments RETICULOCYTE COUNT PCT (BEAKER) (test 2.1 % 0.5-1.7 H code = 575) Adjunct History Instructor ID - [id number] AND EQHBBZPFPR4065-81-57 05:48:24 Test Item Value Reference Range Interpretation Comments HEMOGLOBIN (BEAKER) (test code = 8.4 GM/DL 11.2-15.7 L 410) HEMATOCRIT (BEAKER) (test code = 24.4 % 34.1-44.9 L 411) Adjunct History Instructor ID - [id number], [id number] 04:24:58 Test Item Value Reference Range Interpretation Comments CALCIUM IONIZED (BEAKER) (test 1.05 mmol/L 1.12-1.27 L code = 698) PH, BLOOD (BEAKER) (test code = 7.42 1810) SARS-CoV2/RT-PCR (Asymptomatic ONLY)2022-02-26 00:54:18 Test Item Value Reference Interpretation Comments Range SARS-COV2/RT-PCR Negative Negative The SARS-Co V-2 (test code = target nucleic 92872-8) acids are not detected in thi s [...] revoked sooner. Fact Sheet for Healthcare Providers: https://www.[employer]/Documents/Xp ert%20Xpress%20SAR S%20CoV-2/Fact%20S heets/302-3802%20S ARS-COV-2%20HEALTH CARE%20PROVIDERS%2 0FACT%20SHEET.pdf Fact Sheet for Healthcare Patients: https://www.[employer]/Documents/Xp ert%20Xpress%20SAR S%20CoV-2/Fact%20S heets/302-3801%20S ARS-COV-2%20PATIEN T%20FACT%20SHEET.p df Lab Interpretation Normal (test code = 91049-5) [facility]2022-02-26 00:54:18 Test Item Value Reference Interpretation Comments Range SARS-COV2/RT-PCR Negative Negative The SARS-Co V-2 (test code = target nucleic 27390-2) acids are not detected in thi s [...] revoked sooner. Fact Sheet for Healthcare Providers: https://www.[employer]/Documents/Xp ert%20Xpress%20SAR S%20CoV-2/Fact%20S heets/3023802%20S ARS-COV-2%20HEALTH CARE%20PROVIDERS%2 0FACT%20SHEET.pdf Fact Sheet for Healthcare Patients: https://www.[employer]/Documents/Xp ert%20Xpress%20SAR S%20CoV-2/Fact%20S heets/302-3801%20S ARS-COV-2%20PATIEN T%20FACT%20SHEET.p df Lab Interpretation Normal (test code = 46545-7) [facility]2022-02-26 00:54:18 Test Item Value Reference Interpretation Comments Range SARS-COV2/RT-PCR Negative Negative The SARS-Co V-2 (test code = target nucleic 76247-6) acids are not detected in thi s [...] revoked sooner. Fact Sheet for Healthcare Providers: https://www.[employer]/Documents/Xp ert%20Xpress%20SAR S%20CoV-2/Fact%20S heets/302-3802%20S ARS-COV-2%20HEALTH CARE%20PROVIDERS%2 0FACT%20SHEET.pdf Fact Sheet for Healthcare Patients: https://www.[employer]/Documents/Xp ert%20Xpress%20SAR S%20CoV-2/Fact%20S heets/302-3801%20S ARS-COV-2%20PATIEN T%20FACT%20SHEET.p df Lab Interpretation Normal (test code = 65199-2) [facility]2022-02-26 00:54:18 Test Item Value Reference Interpretation Comments Range SARS-COV2/RT-PCR Negative Negative The SARS-Co V-2 (test code = target nucleic 73875-2) acids are not detected in thi s [...] revoked sooner. Fact Sheet for Healthcare Providers: https://www.[employer]/Documents/Xp ert%20Xpress%20SAR S%20CoV-2/Fact%20S heets/302-3802%20S ARS-COV-2%20HEALTH CARE%20PROVIDERS%2 0FACT%20SHEET.pdf Fact Sheet for Healthcare Patients: https://www.[employer]/Documents/Xp ert%20Xpress%20SAR S%20CoV-2/Fact%20S heets/302-3801%20S ARS-COV-2%20PATIEN T%20FACT%20SHEET.p df Lab Interpretation Normal (test code = 51908-1) [facility]2022-02-26 00:54:18 Test Item Value Reference Interpretation Comments Range SARS-COV2/RT-PCR Negative Negative The SARS-Co V-2 (test code = target nucleic 52723-2) acids are not detected in thi s [...] revoked sooner. Fact Sheet for Healthcare Providers: https://www.[employer]/Documents/Xp ert%20Xpress%20SAR S%20CoV-2/Fact%20S heets/3023802%20S ARS-COV-2%20HEALTH CARE%20PROVIDERS%2 0FACT%20SHEET.pdf Fact Sheet for Healthcare Patients: https://www.[employer]/Documents/Xp ert%20Xpress%20SAR S%20CoV-2/Fact%20S heets/3023801%20S ARS-COV-2%20PATIEN T%20FACT%20SHEET.p df Lab Interpretation Normal (test code = 34688-1) [facility]2022-02-26 00:54:18 Test Item Value Reference Interpretation Comments Range SARS-COV2/RT-PCR Negative Negative The SARS-Co V-2 (test code = target nucleic 57391-8) acids are not detected in thi s [...] revoked sooner. Fact Sheet for Healthcare Providers: https://www.[employer]/Documents/Xp ert%20Xpress%20SAR S%20CoV-2/Fact%20S heets/302-3802%20S ARS-COV-2%20HEALTH CARE%20PROVIDERS%2 0FACT%20SHEET.pdf Fact Sheet for Healthcare Patients: https://www.[employer]/Documents/Xp ert%20Xpress%20SAR S%20CoV-2/Fact%20S heets/302-3801%20S ARS-COV-2%20PATIEN T%20FACT%20SHEET.p df Lab Interpretation Normal (test code = 08485-6) [facility]2022-02-26 00:54:18 Test Item Value Reference Interpretation Comments Range SARS-COV2/RT-PCR Negative Negative The SARS-Co V-2 (test code = target nucleic 92166-7) acids are not detected in thi s [...] revoked sooner. Fact Sheet for Healthcare Providers: https://www.[employer]/Documents/Xp ert%20Xpress%20SAR S%20CoV-2/Fact%20S heets/302-3802%20S ARS-COV-2%20HEALTH CARE%20PROVIDERS%2 0FACT%20SHEET.pdf Fact Sheet for Healthcare Patients: https://www.[employer]/Documents/Xp ert%20Xpress%20SAR S%20CoV-2/Fact%20S heets/302-3801%20S ARS-COV-2%20PATIEN T%20FACT%20SHEET.p df Lab Interpretation Normal (test code = 35042-7) [facility])2022-02-26 00:54:18 Test Item Value Reference Range Interpretation Comments SARS-COV2/RT-PCR Negative Negative The SARS-Co V-2 target (test code = nucleic acids a re not 0906786) detected in thi s specimen. Negative result [...] revoked sooner. Fact Sheet for Healthcare Providers: https://www.[employer] m/Documents/Xpert%20Xpress%20SARS%20CoV-2/Fact%20Sheets/302-3802%27JXPJ-CTX-6%20 HEALTHCARE%20PROVIDERS%20FACT%20SHEET.pdf Fact Sheet for Healthcare Patients: https://www.[employer]/Documents/Xpert%20Xp ress%20SARS%20CoV-2/Fact%20Sheets/302-3801%94SYYE-CRR-6%20PATIENT%20FACT%20SHEET .pdfCOMPREHENSIVE METABOLIC HAUKZ2016-02-17 22:35:11 Test Item Value Reference Range Interpretation [...] not appl icable for dialysis patien ts Adjunct History Instructor ID - [id number] 22:34:35 Test Item Value Reference Range Interpretation Comments MAGNESIUM (BEAKER) 2.1 mg/dL 1.6-2.6 Specimen slightly (test code = 627) hemolyzed Adjunct History Instructor ID - BSPROTHROMBIN TIME/[id number] 22:30:47 Test Item Value Reference Range Interpretation Comments PROTIME (BEAKER) 15.3 seconds 11.9-14.2 H (test code = 759) INR (BEAKER) (test 1.28 See_Comment [Automat ed message] code = 370) The system [employer] generated this result transmitted ref erence range: <=5.90. The reference range was not used to int erpret this result as normal/abnormal . RECOMMENDED COUMADIN/WARFARIN INR THERAPY RANGESSTANDARD DOSE: 2.0 - 3.0 Includes: PROPHYLAXIS for venous thrombosis, systemic embolization; TREATMENT for venous thrombosis and/or pulmonary embolus.HIGH RISK: Target INR is 2.5-3.5 for patients with mechanical heart valves.CBC W/PLT COUNT & AUTO [id number] 22:15:27 Test Item Value Reference Range Interpretation [...] (test code = 2801) [employer] - Bizplvfjpsgc4855-25-41 21:30:[id number] ON LRPC TRANSFUSED 02/25/22 1155 [id number] AP LRPC TRANSFUSED 02/25/22 1318 [id number] AP LRPC TRANSFUSED 02/25/22 1529Type [id number] 21:30:00 Test Item Value Reference Range Interpretation [...] from now? NOVaginitis Panel 3 by DNA [id number] 17:54:00 Test Item Value Reference Range Interpretation Comments Vaginitis Panel 3 by DNA Probe VPIIICANDI (test code = VP3) Vaginitis Panel 3 by DNA Probe N (test code = VP31) Vaginitis Panel 3 by DNA Probe VPIIITRICH (test code = VP31) Atuumywhkx2083-75-72 17:33:00 Test Item Value Reference Range Interpretation [...] code = BASO#) 0.0 thou/uL 0.0-0.2 N Zaxdcckwql3054-14-29 16:38:00 Test Item Value Reference Range Interpretation [...] Seen UABAC) Urine Source: Urine VoidedMolecular Testing [id number] 15:14:00 Test Item Value Reference Range Interpretation Comments Molecular Testing Not Detected NotDetected Performanc e of the MM (test code = Cepheid SARS -CoV-2 has [id number]) only beenestab lished in nasopharyngeal swab specimens. [...] Test: UnknownHospitalized: UnknownICU: UnknownDate of Symptom Onset: [id number]: UnknownReason for Testing: Admission ScreeningSource: Nasopharyngeal SwabSymptomatic [...] add on to prior labsRetype Verify-Blood Type [id number] 12:14:00 Test Item Value Reference Range Interpretation Comments Blood Type Rh (test code = BT) A POSITIVE Nkkvnsbxh0452-47-28 11:38:00 Test Item Value Reference Range Interpretation [...] EGFRCR) Estimated GFR: Greater than 90 mL/min/1.73 z2Xffetfrg eGFR is based on the CKD-EPI 2020 equation thatdo es not use a race [...] code 8 U/L 8-55 N = ALT) Qnlnppdqe5244-95-98 11:38:00 Test Item Value Reference Range Interpretation Comments Chemistry (test code = LIP) 13 U/L 8-78 N Chemistry - [id number] 11:37:00 Test Item Value Reference Range Interpretation Comments Chemistry - Lactate (test code = 1.9 mmol/L 0.5-2.2 N LACTSEP-T) HGB [id number] 18:56:00 Test Item Value Reference Range Interpretation Comments HEMOGLOBIN (test code = HGB) 10.0 G/DL 12.0-16.0 L HEMATOCRIT (test code = HCT) 30.3 % 37-47 L MEAN CELL HGB CONCENTRATION (test 33.0 G/DL 33-37 N code = MCHC) - DUP AB/PEL/SC [id number] 18:20:00 [facility] 1985 Sex: F Patient Name: YULIYA LARA Unit No: [id number] EXAMS: CPT CODE: [id number] DUP AB/PEL/SC COMP 42339 EXAMINATION: - DUP AB/PEL/SC COMP, - US TRANSVAGINAL NON OB, - US PELVIC COMPLETE INDICATION: BLEEDING COMPARISON: None available at time of dictation LOCATION: [facility] TECHNIQUE: Grayscale and color Doppler and spectral [...] x 2.0 cm and exhibits 1.9 cm complexlesion with prominent peripheral blood flow likely representing [...] Owens MD; Dallin Sanchez DO Technologist: Sanjuanita Woo, Trnscrbd D/ (1819) GemmaRHarperPE1 Orig Print D/T: S: 10/11/2021 (182) Probe: [facility] NAME: YULIYA LARA [address] PHYS: [id number] - [place] [address] : 1985 AGE: 36 SEX: F LOC: SHERRI PHONE #: [phone] EXAM DATE: 10/11/2021 STATUS: REG ER FAX #: RAD NO: Page 1 Signed Report- US PELVIC [id number] 18:20:00 [facility] 1985 Sex: F Patient Name: YULIYA LARA Unit No: [id number] EXAMS: CPT CODE: [id number] US PE LVIC COMPLETE 77335 EXAMINATION: - DUP AB/PEL/SC COMP, - US [...] Anderson MD; Dallin Sanchez DO Technologist: Sanjuanita Woo Trnscrbd D/ (1819) t.AMBERRHarperPE1 Orig Print D/T: S: 10/11/2021 (1822) Probe: [facility] NAME: YULIYA LARA [address] PHYS:[place] [address] : 1985 AGE: 36 SEX: F LOC: SHERRI PHONE #: [phone] EXAM DATE: 10/11/2021 STATUS: REG ER FAX #: RAD NO: Page 1 Signed Report- US TRANSVAGINAL NON [id number] 18:20:00 [facility] : 1985 Sex: F Patient Name: YULIYA LARA Unit No: [id number] EXAMS: CPT CODE: [id number] [place] [address] EXAMINATION: - DUP AB/PEL/SC COMP, - US TRANSVAGINAL NON OB, - US PELVIC COMPLETE INDICATION: BLEEDING COMPARISON: None available at time of dictation LOCATION: 8 TECHNIQUE: Grayscale and color Doppler and spectral Doppler sonographic images were obtained of the pelvis usingtransabdominal and endovaginal technique. FINDINGS: Uterus measures 8.2 [...] x 2.0 cm and exhibits 1.9 cm compl ex lesion with prominent peripheral blood flow likely [...] MD; Dallin Sanchez DO Technologist: Sanjuanita Woo, Trnscrbd D/ (1819) tMARIZAPE1 Orig Print D/T: S: 10/11/2021 (1822) Probe: [id number] [facility] NAME: YULIYA LARAIBE[address] PHYS: [place] [address] : 1985 AGE: 36 SEX:F LOC: GinaHarperTHO PHONE #: [phone] EXAM DATE: 10/11/2021 STATUS: REG ER FAX #: RAD NO: Page 1 Signed ReportGLUBED 2021-10-11 17:27:00 Test Item Value Reference Range Interpretation Comments GLUBED (test code = 80 MG/DL 65-99 N Performe d by certified 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 UnknownTHROMBOPLASTIN TIME [id number] 14:40:00 Test Item Value Reference Range Interpretation Comments THROMBOPLASTIN TIME 30.9 SECONDS 24.7-38.0 N *Therap eutic level PARTIAL (test code = for hep felecia: 1.5 - PTT) 2.5 times the average patient value of 30.0 seconds. The aP TT tet should not be used to evaluat e low moleculat weigh t heparin anticoagulant therapy. Is patient on anticoagulants? UnknownCOMPREHENSIVE METABOLIC [id number] 14:34:00 Test Item Value Reference Range Interpretation [...] TOTAL (test code = ALKP) TROP-I HIGH [id number] 14:34:00 Test Item Value Reference Range Interpretation [...] taking high doses of Biotin. HCG SERUM [id number] 14:27:00 Test Item Value Reference Range Interpretation [...] using aquantitative h CG assay. CBC W/AUTO [id number] 14:24:00 Test Item Value Reference Range Interpretation [...] x10 3/uL 0.0-0.2 N AG HEPATITIS B [id number] 12:39:00 Test Item Value Reference Range Interpretation Comments AG HEPATITIS B SURFACE (test code = Negative Negative HBSAG) AB RUBELLA [id number] 12:39:00 Test Item Value Reference Range Interpretation Comments AB RUBELLA IGG (test code = RUBGAB) 1.77 IMMUNE >0.99 HIV 1 2 COMBO AG/AB [id number] 12:39:00 Test Item Value Reference Range Interpretation Comments HIV 1 2 COMBO AG/AB Non Reactive NonReactive HIV 4th Generation SCREEN (test code = Detects HIV-specific BDE04OXOEF) antibodies and HIV-p24 antigen. 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 [facility] SRCIST) RAPID PLASMA [id number] 09:39:00 Test Item Value Reference Range Interpretation Comments RAPID PLASMA REAGIN (test code = Nonreactive Nonreactive RPR) HIV 1/2 RAPID [id number] 09:39:00 Test Item Value Reference Range Interpretation Comments HIV 1/2 RAPID SCREEN (test code = NonReactive NonReactive RBT80DHM) RAPID PLASMA [id number] 09:17:00 Test Item Value Reference Range Interpretation Comments RAPID PLASMA REAGIN (test code = RPR) Nonreactive HIV 1/2 RAPID [id number] 09:17:00 Test Item Value Reference Range Interpretation Comments HIV 1/2 RAPID SCREEN (test code = NonReactive NonReactive KMC58XNN) DRUG OF ABUSE SCREEN [id number] 06:33:00 Test Item Value Reference Interpretation Comments [...] by scott mazariegos methods (i.e., GC/MS) at [facility]. Results of scre en may not be usedin crimi nal justice, job performance or professionalcre dential review, or infa nt custody issues. Negativ e Othello Level ng/ml ------- ----- Cocaine 3 00 Methamphetamine (Ecstacy) 500 Cannabinoid s (THC) 50 Amphetamine 100 0 Barbiturates 20 0 Benzodiazepines 200 Opiates 300 Phencyclidi ne (PCP) 25 UA RFLX [id number] 05:46:00 Test Item Value Reference Range Interpretation [...] URINE SOURCE: Clean CatchCOVID 19 Asymptomatic IH [id number] 05:13:00 Test Item Value Reference Interpretation Comments [...] allows for the detection o f SARS-CoV wftXWCP-RkQ-4. The test detects, but does not differentiate,b etween the two viruses. " Resu lts are for the identification of CIOJ-EvH-6pisjk ocapsid protein antigen. Antige n is generallydetect [...] Compliance, or Certificate of Accreditation CBC W/AUTO [id number] 05:00:00 Test Item Value Reference Range Interpretation [...] X10 3/uL 0.0-0.2 N NRBC#) AB RUBELLA [id number] 08:19:00 Test Item Value Reference Range Interpretation Comments AB RUBELLA IGG (test 1.22 index Immune >0.99 Non-im mune <0.90 code = RUBGAB) Equivocal 0.9 0 - 0.99 Immune >0.99Per formed At: [facility] [address] [place], [place] [id number] Kyle L MD Ph:[phone] [id number] 06:07:00 Test Item Value Reference Range Interpretation Comments HEMATOCRIT (test code = HCT) 32.0 % 37-47 L ISTAT CORD [id number] 20:50:00 Test Item Value Reference Range Interpretation [...] Performe d by certified (test 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 Results US Pelvic Transvag W Doppler HISTORY: Vaginal bleeding. Thickened endometrium noted on CT done earlier today. COMPARISON: CT study done today. FINDINGS: Real-time imaging of the pelvis was obtained transabdominally and with an endovaginal probe. The uterusmeasures 5 x 7.6 x 12.5 cm in size. No focal fibroids. A thickened heterogeneous endometrium at 2.6 cm. Ovaries are not visualized. IMPRESSION: Thickened endometrium. No uterine fibroids. Nonvisualization of the ovaries. Reported By: Amalia Luna MD Electronically Signed Date/Time: 03/18/222126 Technologist: CHRIS Fuentes ate/Time: 03/18/222125 Transcribed Date/Time:CT Abdomen Pelvis W Con [facility] : 1985 [facility] Pt Name: YULIYA HAMILTON [address] Phys: [place] [address] : 1985 Age: 36 SEX:F [phone] Exam Date: 03/18/22 Status: REG ER Acct: [id number] Loc: ERS Pt Unit #: [id number] Report #: [id number] CC: EDTEMP PROVIDER Boy Ndiaye MD CAT SCAN REPORT Report Status: Signed Order # Category/Exam [id number] CT/CT Abdomen Pelvis W Con ([id number]): . Results CT Abdomen Pelvis W Con HISTORY: Abdominal pain. Vaginal bleeding. Diarrhea. Burning with urination. COMPARISON: 02/25/2022 study. FINDINGS: Subsegmental atelectatic changes seen within the lung bases. Some minimal persisting groundglass opacity in the posterior basal segment of the left lower lobe. The liver, spleen, pancreas and gallbladder regions appear unremarkable. Right and left adrenal glands and right and left kidneys are normal in size. There is no significant periaortic or mesenteric adenopathy. CT of pelvis performed with contrast: The endometrium appears rather markedly thickened. This is more prominent than on the previous exam. There is some trace free fluid present. Partially collapsed follicle involving the right ovary. The appendix is normal. Review of osseous structures show some arthritic changes of the spine. IMPRESSION: 1. Thickened endometrium, this is more prominent than typically seen, clinical correlation as to possibility of . There is a partially ruptured right ovarian follicle and free fluid within the cul-de-sac. Pelvic ultrasound may be helpful. Reported By: Amalia Luna MD Electronically Signed Date/Time: 03/18/221949 Technologist: WILLOW Dictated Date/Time: 03/18/221945 Transcribed Date/Time:XR Chest 1 View Portable [facility] : 1985 Sex: [facility] Pt Name: YULIYA HAMILTON [address] Phys: [place] [address] : 1985 Age: 36 SEX:F [phone] Exam Date: 03/18/22 Status: REG ER Acct: [id number] Loc: ERS Pt Unit #: [id number] Report #: [id number] CC: Boy Ndiaye MD IMAGING SERVICES REPORT Report Status: Signed Order # Category/Exam [id number] RAD/XRChest 1 View Portable ([id number]): . Results XR Chest 1 View Portable HISTORY: Chest pain COMPARISON: 02/25/2022 FINDINGS: The heart size is normal. The lungs are well expanded without focal areas of consolidation, pneumothorax or pleural effusions. IMPRESSION: No radiographic evidence of acute cardiopulmonary process. Reported By: Mat Diaz MD Electronically Signed Date/Time: 03/18/221854 Technologist: DictatedDate/Time: 03/18/221853 Transcribed Date/Time:MRI Pelvis W WO Con Name: YULIYA PHILIP : 1985 [facility] Pt Name: YULIYA PHILIP [address] [facility] Phys: [place] [address] : 1985 Age: 36 SEX:F Exam Date: 03/10/22 Status: ADM IN Acct: [id number] Loc: [facility] Pt Unit #: [id number] Report #: [id number] CC: Narcisa Ruiz MD MRI REPORT Report Status: Signed Order # Category/Exam [id number] MRI/MRI Pelvis W WO Con ([id number]): . Results MRI Pelvis W WO Con History: Cervical mass Comparison: CT prior day Findings: Ulcerative circumferential cervical mass has a craniocaudal length of 4.6 cm, AP dimension of 5.5 cm, and the transverse dimens ion of 5.9 cm. Mass doesn't involve the anterior superior most 13 mm vaginal wall. Mass nearly completely encases the anterior fornix and partially fills the posterior fornix. Mass invades the anteriorinferior lower uterine body by as much as 3 cm. Normal appearance of both ovaries. No pelvic adenopathy. No abnormal bone marrow signal. Left Bartholin gland cyst measures 7 mm. 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 No extraserosal extension appreciated nor pelvic adenopathy. Reported By: SALEEM MCGILL Electronically Signed Date/Time: 03/12/22805 Technologist: ALONZO Dictated Date/Time: 03/12/22 08 Transcribed Date/Time:US Renal Bilateral STANDARD Name: YULIYA PHILIP : 1985 [facility] Pt Name: YULIYA PHILIP [address] Phys: Gurmeet Naylor III, [place] [address] : 1985 Age: 36 SEX:F Exam Date: 03/09/22 Status: ADM IN Acct: [id number] Loc: [facility] Pt Unit #: [id number] Report #: [id number] CC: Bárbara Lemons MD, III, Joe MD ULTRASOUND REPORT Report Status: Signed Order # Category/Exam [id number] ULT/US Renal Bilateral STANDARD ([id number]): . Results US Renal Bilateral STANDARD HISTORY: Hematuria. COMPARISON: CT examination done earlier today. FINDINGS: Real-time imaging of the right and left kidneys were. The right kidney measures 10.6 cm in size. Left kidney 10 cm. There is no evidence of cyst, mass or obstruction. Bladder region appears unremarkable. IMPRESSION: Unremarkable renal ultrasound. Reported By: Amalia Luna MD Electronically Signed Date/Time: 03/09/221716 Technologist: FARRUKH Dictated Date/Time: 03/09/221714 Transcribed Date/Time:US [facility] : 1985 [facility] Pt Name: YULIYA PHILIP [address] Phys: [place] [address] : 1985 Age: 36 SEX:F [phone] Exam Date: 03/09/22 Status: DEP ER Acct: [id number] Loc: [facility] Pt Unit #: [id number] Report #: [id number] CC: Livier Carver MD ULTRASOUND REPORT Report Status: Signed Order # Category/Exam [id number] ULT/US Pelvic Transvag W Doppler ([id number]): . Results PRELIMINARY REPORT EXAM: US Pelvis, Complete. CLINICAL HISTORY: HX: VAG BLEEDING, CERVICAL MASS. SEE NOTES ON LAST IMAGE. THANKS TECHNIQUE: Transvaginal and transabdominal pelvic ultrasound (complete) with image documentation. COMPARISON: CT - CT ABDOMEN PELVIS W CON - 03/09/2022 02:04 AM SPARMAKER FINDINGS: ENDOMETRIUM: Normal thickness. UTERUS/CERVIX: Measures 9.5 x 4.6 x 5.5 cm demonstrating a 6.5 x 6.3 x 5.1 cm lobular soft tissue mass in the lower uterine segment extending into the cervix RIGHT OVARY: Normal follicles. No adnexal mass. Normal blood flow. Measures 2.9 x1.1 x 3.9 cm demonstrating a 1.8 x [...] Medina MD Mar 09, 2022 5:24:05 AM SPARMAKER US Pelvic Transvag W Doppler HISTORY: Vaginal [...] seen involving the right adnexa. Color Doppler dixie luation with spectral analysis: Normal flow shown to both ovaries. IMPRESSION: Ill-defined masslike fullness to the lower uterine segment or cervix region. It is possible that this is related to a fibroid but a discrete mass cannot be visualized. A lower uterineor cervical malignancy is not excluded. This report is in agreement with the temporary report. Transcribed Date/Time: 03/09/2022 10:10 AM Reported By: Amalia Luna MD Electronically Signed Date/Time: 03/09/22 1242 Technologist: DEANGELO Dictated Date/Time: 03/09/22 0756 Transcribed Date/Time:CT Abdomen Pelvis W Con [facility] BRYANName: YULIYA PHILIP : 1985 [facility] Pt Name: YULIYA PHILIP [address] Phys: [place] [address] : 1985 Age: 36 SEX:F [phone] Exam Date: 03/09/22 Status: DEP ER Acct: [id number] Loc: [facility] Pt Unit #: [id number] Report #: [id number] CC: Livier Carver MD CAT SCAN REPORT Report Status: Signed Order # Category/Exam [id number] CT/CT Abdomen Pelvis W Con ([id number]): . Results PRELIMINARY REPORT EXAM: CT Abdomen and Pelvis with Intravenous Contrast CLINICAL HISTORY: Patient is a 36-year-old inmate who presents to the emergency department with a 2-week history of pelvic pain, increased vaginal bleeding reports to 8-9 blood-filled pads and now also compla ining of retrosternal chest tightness as though "an elephant is sitting on her chest". Patient denies history of heart disease. Patient seen about a month ago and diagnosed with a pelvic mass was transferred to [facility] for further evaluation and treatment. Patient [...] suspicious osseous abnormality. ABDOMINAL WALL AND SOFT TISSUES:Unremarkable. IMPRESSION: 1. There is a moderate fecal load noted throughout the colon. Correlate for history of constipation. 2. There is mild nonspecific gallbladder wall edema. 3. There is masslike prominence of the cervix, which appears enlarged and measures approximately 7.8 x 5.4 cm ( series 2, image 80). Further characterization with pelvic ultrasound can be obtained if not already recently obtained. ELECTRONICALLY SIGNED BY: Ana Rosales MD Mar 09, 2022 3:13:[address] Abdomen Pelvis W Con HISTORY: Pelvic [...] This does not have a typical appearance ofa fibroid. Cervical mass is not excluded. Gynecologic consultation is recommended. This report is inagreement with the temporary report. Transcribed Date/Time: 03/09/2022 10:08 AM Reported By: Amalia Luna MD Electronically Signed Date/Time: 03/09/22 1242 Technologist: Dictated Date/Time: 03/09/22810 Transcribed Date/Time:XR Chest 1 View Portable [facility]: YULIYA PHILIP : 1985 [facility] Pt Name: YULIYA PHILIP [address] Phys: ER* STANDING MEDICAL DOC ORDER [place] [address] : 1985 Age: 36 SEX:F [phone] Exam Date:03/08/22 Status: REG ER Acct: [id number] Loc: [facility] Pt Unit #: [id number] Report #: [id number] CC: ER* STANDING MEDICAL DOC ORDER IMAGING SERVICES REPORT Report Status: Signed Order # Category/Exam [id number] RAD/XR Chest 1 View Portable ([id number]): . Results XR Chest 1 View Portable History: Chest pain Comparison: None. Findings: Lungs are clear. No pneumothorax. No effusion. No acute osseous abnormality. Impression: No acute intrathoracic abnormality. Reported By: SALEEM MCGILL Electronically Signed Date/Time: 03/08/222345 Technologist: LIZETT Dictated Date/Time: 03/08/222339 Transcribed Date/Time:US Pelvic Transvag [facility] : 1985 Sex: [facility] Pt Name: YULIYA HAMILTON [address] Phys: [place] [address] : 1985 Age: 36 SEX:F [phone] Exam Date: 02/25/22 Status: REG ER Acct: [id number] Loc: [facility] Pt Unit #: [id number] Report #: [id number] CC: [place] DO ULTRASOUND REPORT Report Status: Signed Order # Category/Exam [id number] ULT/US Pelvic Transvag W Doppler ([id number]): . Results Exam: Pelvic ultrasound including Transvaginal, [...] x 2.3 x 3.5 cm. 1.3 x 1.8cm follicle cyst. Left ovary:Not visualized. No abscess or significant abnormal fluid collection. Vascular duplex examination demonstrates no evidence for ovarian torsion IMPRESSION: Evidence for 2 solid masses which appear to involve the cervix, with neoplasm being a strong concern. Follow-up pelvic MRI with and without IV contrast recommended for further assessment. Reported By: Woody Ramirez MD Electronically Signed Date/Time: 02/25/22 1502 Technologist: Dictated Date/Time: 02/25/22 1456 Transcribed Date/Time:XR [facility] [place]me: YULIYA HAMILTON : 1985 [facility] Pt Name: YULIYA HAMILTON [address] Phys: [place] [address] : 1985 Age: 36 SEX:F [phone] Exam Date: 02/25/22 Status: REG ER Acct: [id number] Loc: [facility] Pt Unit #: [id number] Report #: [id number] CC: DialloLouisa avitia DO IMAGING SERVICES REPORT Report Status: Signed Order # Category/Exam [id number] RAD/XR Chest 1 View Portable ([id number]): . Results XR Chest 1 View Portable HISTORY: Cough COMPARISON: None FINDINGS: The heart size is normal. The lungs are well expanded without focal areas of consolidation,pneumothorax or pleural effusions. IMPRESSION: No radiographic evidence of acute cardiopulmonary process. Reported By: Mat Diaz MD Electronically Signed Date/Time: 02/25/221120 Technologist: EVELYN Dictated Date/Time: 02/25/221120 Transcribed Date/Time: CT Abdomen Pelvis W [facility] : 1985 Sex: [facility] Pt Name: YULIYA HAMILTON [address] Phys: [place] [address] : 1985 Age: 36 SEX:F [phone] Exam Date: 02/25/22 Status: REG ER Acct: [id number] Loc: [facility] Pt Unit #: [id number] Report #: [id number] CC: ED TEMP PROVIDER [place] DO CAT SCAN REPORT Report Status: Signed Order # Category/Exam [id number] CT/CT Abdomen Pelvis W Con ([id number]): . Results CT abdomen and pelvis with IV contrast. Oral contrast Was not administered INDICATIONS: Abdominal pain COMPARISON: None FINDINGS: Nonspecific focal groundglass opacity in the posterior left lung base could represent atelectasis or developing infiltrate.Liver, spleen, and pancreas appear unremarkable. Stomach and [...] Aaron Stone MD Electronically Signed Date/Time: 02/25/22 1325 Technologist: JOAN Dictated Date/Time: 02/25/22 1329 Transcribed Date/Time:
[2022-07-21 07:07] LABS: Absolute Lymphocytes (CBC) 1.1 K/uL (0.7-4.9); Hematocrit 16.1 % (36.0-45.0); Lymphocytes % 10.4 % (15.3-44.8); MCV 91.5 fL (80-100); MPV 7.2 fL (7.6-11.3); RBC Red Blood Cell Count 1.76 M/uL (3.86-4.86)
[2022-07-21] MEDS ORDERED: NA CHLORIDE 0.9% 1,000 ML ONE (07:10)
--- NOTE | 2022-07-21 07:42 | RAD REPORT ---
EXAM DESCRIPTION: CT - CTHCSPWOC - 07/21/2022 7:18 am CLINICAL HISTORY: Trauma, head and neck injury. Mental status change;Seizure COMPARISON: No comparisons TECHNIQUE: Axial 5 mm thick images of the head were obtained. Axial 2 mm thick images of the cervical spine were obtained with sagittal and coronal reconstruction images generated and reviewed. All CT scans are performed using dose optimization technique as appropriate and may include automated exposure control or mA/KV adjustment according to patient size. FINDINGS: CT HEAD WITHOUT CONTRAST: No acute hemorrhage, hydrocephalus or extra-axial collection is identified.No areas of brain edema or midline shift. The paranasal sinuses and mastoids are clear.The calvarium is intact. CT CERVICAL SPINE WITHOUT CONTRAST: No fracture or subluxation.Mild lower cervical spondylosis.No prevertebral soft tissues swelling is i dentified. Mild infiltrate is seen the anterior right upper lobe. IMPRESSION: No acute intracranial or cervical spine findings. Mild infiltrate right upper lobe anteriorly probably represents pneumonia.
[2022-07-21] MEDS ORDERED: LEVETIRACETAM 500 MG/5 ML VIAL IV ONE (07:50)
[2022-07-21 07:51] LABS: Albumin 2.7 g/dL (3.4-5.0); Bilirubin Total 0.4 mg/dL (0.2-1.0); Magnesium 2.7 mg/dL (1.6-2.4); Protein, Total 6.8 g/dL (6.4-8.2); Troponin High Sensitivity 58.7 pg/mL (<58.9)
[2022-07-21] MEDS ORDERED: NA CHLORIDE 0.9% 100 ML ONE (07:51)
[2022-07-21 07:53] LABS: Potassium 7.4 mEq/L (3.5-5.1)
--- NOTE | 2022-07-21 08:02 | EDPHYS ---
Physician Documentation [facility] [place] Name: Jayashree Khan Age: 36 yrs Sex: Female : 1985 Arrival Date: 07/21/2022 Time: 06:43 Bed 3 Private MD: ED Physician Jonn Larsen HPI: 07/21 08:12 This 36 yrs old Female presents to ER via EMS with complaints of Seizure. kdr 08:13 Patient was brought to the hospital by EMS. They were called out for altered mental kdr status and possible seizure. EMS reports that the patient was seizing for approximately 10 minutes. Patient was given intranasal Versed for her seizure which seem to halt the activity. Patient presented to the ED in a postictal state. Patient generally looks disheveled and has some diffuse ecchymosis but otherwise is resting comfortably. Vital signs appear to be initially stable.. Onset: The symptoms/episode began/occurred suddenly, just prior to arrival. Severity of symptoms: At their worst the symptoms were incapacitating. It is unknown whether or not the patient has had similar symptoms in the past. Patient was recently seen here in 08 June and transferred for a vaginal bleeding. Patient was sent to [facility] in the [facility]. Patient was diagnosed subsequently with a cervical carcinoma. She required significant intervention including transfusion. Patient was subsequently discharged on 14 June and presented that same day here with chest pain with discharge. Patient is brought that again today for the altered mental status and seizure.. 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 - Social history:: Smoking status: unknown. ROS: 08:13 Constitutional: Unable to obtain secondary to altered mental status kdr 08:13 Unable to obtain ROS due to altered mental status. Exam: 08:13 Constitutional: This is a well developed, well nourished patient who is altered and kdr not alert and in mild distress. Head/Face: Normocephalic, atraumatic. Neck: Trachea midline, no thyromegaly or masses palpated, and no cervical lymphadenopathy. Supple, full range of motion without nuchal rigidity, or vertebral point tenderness. No Meningismus. Chest/axilla: Normal chest wall appearance and motion. Nontender with no deformity. No lesions are appreciated. Cardiovascular: Regular rate and rhythm with a normal S1 and S2. No gallops, murmurs, or rubs. Normal PMI, no JVD. No pulse deficits. Respiratory: Lungs have equal breath sounds bilaterally, clear to auscultation and percussion. No rales, rhonchi or wheezes noted. No increased work of breathing, no retractions or nasal flaring. Abdomen/GI: Soft, non-tender, with normal bowel sounds. No distension or tympany. No guarding or rebound. No evidence of tenderness throughout. Back: No spinal tenderness. No costovertebral tenderness. Full range of motion. MS/ Extremity: Pulses equal, no cyanosis. Neurovascular intact. Full, normal range of motion. 08:13 Neuro: Orientation: Not oriented to person, place, time, Mentation: slow to respond, confused, Motor: moves all fours. Vital Signs: 06:50 BP 129 / 88; Pulse 94; Resp 18; Temp 98.7; Pulse Ox 100% on R/A; Weight 69 kg; Height 5 pf1 ft. 4 in. ; 07:55 BP 132 / 78; Pulse 78; Resp 16; Pulse Ox 100% on 2 lpm NC; ld1 08:57 BP 126 / 74; Pulse 84; Resp 14; Pulse Ox 100% on 2 lpm NC; ld1 06:50 Body Mass Index 26.11 (69.00 kg, 162.56 cm) pf1 MDM: 08:02 Patient medically screened. kdr 08:13 Data reviewed: vital signs, nurses notes, lab test result(s), radiologic studies. kdr 07/21 06:52 Order name: CBC with Diff sd2 07/21 06:52 Order name: CMP; Complete Time: 08:02 sd2 07/21 06:52 Order name: Magnesium; Complete Time: 08:02 sd2 07/21 06:52 Order name: Troponin High Sensitivity; Complete Time: 08:02 sd2 07/21 06:52 Order name: AMMONIA; Complete Time: 07:31 sd2 07/21 06:52 Order name: Ethanol; Complete Time: 07:31 sd07/21 06:52 Order name: Salicylate; Complete Time: 08:02 07/21 06:52 Order name: Tylenol Level; Complete Time: 08:02 07/21 06:52 Order name: CK; Complete Time: 08:02 07/21 06:52 Order name: Lactate w/ 2H reflex if indic.; Complete Time: 07:31 07/21 07:18 Order name: Type And Screen pf1 07/21 08:02 Order name: SARS RAPID eb 07/21 09:32 Order name: CBC Smear Scan EDMS 07/21 06:52 Order name: CT Head C Spine; Complete Time: 08:02 07/21 06:52 Order name: XRAY Chest (1 view); Complete Time: 08:11 07/21 06:52 Order name: EKG; Complete Time: 06:53 07/21 07:12 Order name: EKG - Nurse/Tech; Complete Time: 07:42 pf1 Administered Medications: 07:42 Drug: NS 0.9% IV 1000 ml Route: IV; Rate: 1 bolus; Site: right antecubital; ld1 07:55 Drug: Keppra IV 1000 mg Route: IV; Rate: calculated rate; Site: right antecubital; ld1 08:14 Follow up: Response: No adverse reaction ld1 08:13 Drug: D10 in Water IVP 250 ml Route: IVP; Site: right antecubital; ld1 08:34 Follow up: Response: No adverse reaction ld1 08:33 Drug: Insulin Regular Human IVP 10 units {Co-Signature: aa5 (Maritza Allred RN).} ld1 Route: IVP; Site: right antecubital; 08:35 Follow up: Response: No adverse reaction ld1 08:34 Drug: Sodium Bicarbonate IVP 1 amp Route: IVP; Site: right antecubital; ld1 08:59 Follow up: Response: No adverse reaction ld1 08:35 Drug: Calcium Gluconate IVPB 1 grams Route: IVPB; Infused Over: 60 mins; Site: right ld1 antecubital; 08:59 Follow up: Response: No adverse reaction ld1 09:18 Drug: Rocephin - Rocephin (cefTRIAXone) IVPB 1 grams Route: IVPB; Infused Over: 30 ld1 mins; Site: right antecubital; 09:19 Not Given (Patient Refused): Kayexalate PO 30 grams PO once ld1 Disposition Summary: 07/21/22 08:02 Transfer Ordered Transfer Location: [facility] kdr Reason: Higher level of care kdr Condition: Serious kdr Problem: new kdr Symptoms: have improved kdr Accepting Physician: Dr. Weldon(07/21/22 09:49) aa5 Diagnosis - Other seizures kdr - Pneumonia, unspecified organism kdr - Hyperkalemia kdr - Anemia, unspecified kdr - Acute kidney injury kdr Forms: - Medication Reconciliation Form kdr - SBAR form kdr Signatures: Dispatcher [employer] EDMS Jonn Larsen MD MD kdr Maritza Allred, RN RN aa5 Beatriz Powell RN RN ld1 Stefania Thomas MD MD sd2 Jerrica Reynolds RN RN pf1 Maritza Allred RN aa5 Corrections: (The following items were deleted from the chart) 08:27 08:02 [facility] kdr kdr 09:49 08:27 Dr. Weldon kdr aa5
--- NOTE | 2022-07-21 08:02 | ER ---
Nurse's Notes [facility] Name: Jayashree Khan Age: 36 yrs Sex: Female : 1985 Arrival Date: 07/21/2022 Time: 06:43 Bed 3 Private MD: Diagnosis: Other seizures;Pneumonia, unspecified organism;Hyperkalemia;Anemia, unspecified;Acute kidney injury Presentation: 07/21 06:50 Chief complaint: EMS states: seizure activity that lasted for approximately 10 minutes pf1 HYDRAULIC TESTER. [facility] stated gave patient 2.5mg versed internasal HYDRAULIC TESTER. EMS stated patient was found have a seizure on the bathroom floor, stated per family members stated patient fell from toilet and hit right eye when having the seizure. Patient has a upper right lip contusion. Coronavirus screen: At this time, unable to obtain information related to travel outside the [place] At this time, the client does not indicate any symptoms associated with coronavirus-19. Ebola Screen: Patient negative for fever greater than or equal to 101.5 degrees Fahrenheit, and additional compatible Ebola Virus Disease symptoms. Initial Sepsis Screen: Does the patient meet any 2 criteria? No. Patient's initial sepsis screen is negative. Does the patient have a suspected source of infection? No. Patient's initial sepsis screen is negative. Risk Assessment: Do you want to hurt yourself or someone else? Unable to obtain. 06:50 Method Of Arrival: EMS: [facility] pf1 06:50 Acuity: WALT 2 pf1 09:54 Onset of symptoms was July 21, 2022. ld1 09:55 Onset of symptoms was July 21, 2022 at 09:55. ld1 Historical: - Allergies: 07:05 Ibuprofen; pf1 07:05 pcn; pf1 - PMHx: 07:05 Anemia; ovarian CA; stomach tumor; hepatomegaly; cholelithiasis; right uterine artery pf1 hemorrhage S/P embolization; - Immunization history:: Adult Immunizations not up to date. - Social history:: Smoking status: unknown. Screenin:17 [facility] ED Fall Risk Assessment (Adult) History of falling in the last 3 months, pf1 including since admission Yes- physiologic fall (2 pts) Confusion or Disorientation Yes (5 pts) Intoxicated or Sedated Yes (3 pts) Impaired Gait Yes (1 pt) Mobility Assist Device Used Yes (1 pt) Altered Elimination Yes (1 pt) Score/Fall Risk Level 3 or more points = High Risk Oriented to surroundings, Maintained a safe environment, Educated pt \T\ family on fall prevention, incl call for assistance when getting out of bed, Assessed \T\ reinforced patient's understanding of fall precautions, Provided non-skid footwear, Hourly rounding (assess needs \T\ fall precautionary measures) done, Used ambulatory aids as needed (educated on \T\ assisted with), Used gait belt as appropriate Implemented a Fall Risk Plan of Care, Remained w/in arm's length of patient and in sight while toileting, Offered frequent toileting (1:1 observation), Remained with patient while ambulating, Utilized family, sitter, or virtual associate professor of communication as indicated. Abuse screen: patient is currently postictal. Nutritional screening: No deficits noted. Tuberculosis screening: No symptoms or risk factors identified. Assessment: 06:55 General: Appears in no apparent distress. unkempt. pf1 06:55 Pain: Unable to use pain scale. patient is S/P postictal. Neuro: Level of Consciousness pf1 is post ictal, Seizure activity Patient is post-ictal at this time. Cardiovascular: Capillary refill < 3 seconds Patient's skin is warm and dry. Respiratory: Airway is patent Trachea midline Respiratory effort is even, unlabored, Respiratory pattern is regular, symmetrical, Breath sounds are clear bilaterally. GI: Abdomen is flat, non-distended, Bowel sounds present X 4 quads. : No deficits noted. No signs and/or symptoms were reported regarding the genitourinary system. EENT: contusion noted to right inner upper lip. Derm: Bruising that is bright red, dark purple, green, yellow, patient has generalized scattered bruising noted. 07:55 General: Appears in no apparent distress. unkempt, Behavior is anxious, fussy. Neuro: ld1 Level of Consciousness is confused, post ictal, Oriented to person, place, time. Cardiovascular: Capillary refill < 3 seconds Patient's skin is warm and dry. Rhythm is sinus rhythm. Respiratory: Airway is patent Respiratory effort is even, unlabored, Respiratory pattern is regular, symmetrical. GI: Abdomen is round non-distended. : No signs and/or symptoms were reported regarding the genitourinary system. EENT: Contusion to upper lip. Derm: Bruising that is bright red, dark purple, green, yellow, generalized bruising to body.. 08:57 Reassessment: Patient appears in no apparent distress at this time. No changes from ld1 previously documented assessment. Vital Signs: 06:50 BP 129 / 88; Pulse 94; Resp 18; Temp 98.7; Pulse Ox 100% on R/A; Weight 69 kg; Height 5 pf1 ft. 4 in. ; 07:55 BP 132 / 78; Pulse 78; Resp 16; Pulse Ox 100% on 2 lpm NC; ld1 08:57 BP 126 / 74; Pulse 84; Resp 14; Pulse Ox 100% on 2 lpm NC; ld1 06:50 Body Mass Index 26.11 (69.00 kg, 162.56 cm) pf1 ED Course: 06:44 Patient arrived in ED. eb 06:49 Inserted saline lock: 22 gauge in right antecubital area, using aseptic technique. vc1 Blood collected. 07:02 CBC with Diff Sent. vc1 07:02 CMP Sent. vc1 07:02 Magnesium Sent. vc1 07:02 Troponin High Sensitivity Sent. vc1 07:02 AMMONIA Sent. vc1 07:02 Urinalysis w/ reflexes Sent. vc1 07:02 Test, Urine Sent. vc1 07:02 Urine Drug Screen Sent. vc1 07:02 Ethanol Sent. vc1 07:02 Salicylate Sent. vc1 07:02 Tylenol Level Sent. vc1 07:02 CK Sent. vc1 07:02 Lactate w/ 2H reflex if indic. Sent. vc1 07:05 Triage completed. pf1 07:10 Beatriz Powell, RN is Primary Nurse. ld1 07:11 Lactate w/ 2H reflex if indic. Sent. pf1 07:11 CK Sent. pf1 07:11 Tylenol Level Sent. pf1 07:11 Salicylate Sent. pf1 07:11 Ethanol Sent. pf1 07:11 AMMONIA Sent. pf1 07:12 Troponin High Sensitivity Sent. pf1 07:12 Magnesium Sent. pf1 07:12 CMP Sent. pf1 07:12 CBC with Diff Sent. pf1 07:15 Jonn Larsen MD is Attending Physician. kdr 07:19 CT Head C Spine In Process Unspecified. EDMS 07:55 XRAY Chest (1 view) In Process Unspecified. EDMS 07:55 Type And Screen Sent. ld1 07:55 Bearden cath inserted, using sterile technique, 16 Fr., by ED staff, balloon inflated, ld1 returned Urine return upon insertion - urine was minimal. Notified ERP. 07:55 Patient has correct armband on for positive identification. Placed in gown. Bed in low ld1 position. Call light in reach. Side rails up X2. media monitor on. Pulse ox on. NIBP on. Noise minimized. Warm blanket given. Repositioned patient. Cleaned of incontinence. Linen changed. 08:00 initiated a transfer with Mario Bernal Rn from the [facility]. eb 08:13 SARS RAPID Sent. ld1 08:20 connected the neuro vp design stonecutter apprentice hand for [facility] with Dr. Larsen for patient eb transfer consultation. 08:25 administrative approval given by Mario Bernal Rn/ patient has been accepted to [place] [id number] bed 11/ Dr. Rufus Weldon has accepted the patient in transfer/ report to be called to [phone]. 08:35 Type And Screen Sent. ld1 08:35 SARS RAPID Sent. ld1 09:54 No provider procedures requiring assistance completed. Patient transferred, IV remains ld1 in place. 09:54 Arm band placed on right wrist. ld1 Administered Medications: 07:42 Drug: NS 0.9% IV 1000 ml Route: IV; Rate: 1 bolus; Site: right antecubital; ld1 07:55 Drug: Keppra IV 1000 mg Route: IV; Rate: calculated rate; Site: right antecubital; ld1 08:14 Follow up: Response: No adverse reaction ld1 08:13 Drug: D10 in Water IVP 250 ml Route: IVP; Site: right antecubital; ld1 08:34 Follow up: Response: No adverse reaction ld1 08:33 Drug: Insulin Regular Human IVP 10 units {Co-Signature: aa5 (Maritza Allred RN).} ld1 Route: IVP; Site: right antecubital; 08:35 Follow up: Response: No adverse reaction ld1 08:34 Drug: Sodium Bicarbonate IVP 1 amp Route: IVP; Site: right antecubital; ld1 08:59 Follow up: Response: No adverse reaction ld1 08:35 Drug: Calcium Gluconate IVPB 1 grams Route: IVPB; Infused Over: 60 mins; Site: right ld1 antecubital; 08:59 Follow up: Response: No adverse reaction ld1 09:18 Drug: Rocephin - Rocephin (cefTRIAXone) IVPB 1 grams Route: IVPB; Infused Over: 30 ld1 mins; Site: right antecubital; 09:19 Not Given (Patient Refused): Kayexalate PO 30 grams PO once ld1 Medication: 09:55 VIS not applicable for this client. ld1 Outcome: 08:02 ER care complete, transfer ordered by . kdr 09:49 Patient left the ED. aa5 09:54 Transferred by ground EMS to [facility]. ld1 09:54 Condition: stable 09:54 Instructed on the need for transfer. Signatures: Dispatcher [employer] EDMS Jonn Larsen MD MD kdr Calderon, Audri, RN RN aa5 Becki Goldsmith Lauren, RN RN ld1 Humera Walker RN RN vc1 Jerrica Reynolds RN RN pf1 Maritza Allred RN aa5
--- NOTE | 2022-07-21 08:04 | RAD REPORT ---
EXAM DESCRIPTION: RAD - Chest Single View - 07/21/2022 7:54 am CLINICAL HISTORY: BLUNT CHEST TRAUMA Chest pain. COMPARISON: Chest Single View dated 06/14/2022; Chest Single View dated 05/03/2022 FINDINGS: Portable technique limits examination quality. Mild bilateral interstitial lung opacities, greatest in the upper lobes, may represent interstitial p ulmonary edema or infection/ pneumonitis. The heart is normal in size. No displaced fractures.
[2022-07-21] MEDS ORDERED: INSULIN -REGULAR HUMAN 50 UNIT/0.5 ML ML ONE (08:12)
[2022-07-21] MEDS ORDERED: CALCIUM GLUCONATE 1 GM IVPB 1 GM/50 ML BAG IV ONE (08:13)
[2022-07-21] MEDS ORDERED: SOD POLYSTYREN SUL 15 GM/60 ML UCUP ONE (08:13)
[2022-07-21] MEDS ORDERED: D10W 250 ML IV ONE (08:13)
[2022-07-21 08:36] LABS: SARS-CoV-2 Antigen Rapid Res Negative (Negative)
[2022-07-21] MEDS ORDERED: CEFTRIAXONE 1000 MG/VIAL ONE (09:22)
[2022-07-21 09:31] LABS: Blood Morphology Comment NOT SEEN (NOT SEEN); Platelet Estimate ADEQ; White Blood Cell Scan OK (OK)
[2022-07-21 09:57] VITALS: TEMP 98.7; O2SAT 100
[2022-07-21 09:59] VITALS: BP 126/74
--- NOTE | 2022-07-21 14:43 | EKG ---
Test Date: 2022-07-21 Test Time: 07:29:10 [employer] Worker: LANNY MEASUREMENT RESULTS: Intervals: Rate: 166 MN: 154 QRSD: 94 QT: 232 QTc: 385 Sandy: P: 60 MN: 154 QRS: -41 T: 29 INTERPRETIVE STATEMENTS: Sinus tachycardia with frequent premature ventricular complexes in a pattern of bigeminy Left axis deviation Incomplete right bundle branch block Abnormal ECG No previous ECG available for comparison Electronically Signed On 07-21-22 14:42:47 CDT by Nam Azevedo
== END 2022-07-21 09:49 | disposition short-term general hospital (02) ==
LOC: ER 06:43
DX: G40.89 Other seizures (principal); J18.9 Pneumonia, unspecified organism; E87.5 Hyperkalemia; D64.9 Anemia, unspecified; N17.9 Acute kidney failure, unspecified
CPT/HCPCS: 36415; 51702; 70450; 71045; 72125; 80053; 82140; 82550; 83605; 83735; 84484; 85025; 86850; 86900; 86901; 87811; 93005; 96374; 96375; 99285; G0480; J0610; J0696; J1815; J1953; J7030

== ENCOUNTER 2022-08-12 02:48 | Emergency (ER) | payer SELFPAY ==
--- OUTSIDE RECORDS SUMMARY | 2022-08-12 02:59 | XMS REPORT | Continuity of Care Document ---
:1985 Author Organization [facility] t Address [address] [facility] [place] [address] Care Team Providers Name Role Phone No, Pcp [facility] Primary Care Physician Unavailable Armond Owens Attending Clinician Unavailable BEN HUNG Attending Clinician Unavailable TM COY Attending Clinician Unavailable Farzaneh Horvath Attending Clinician ELENI GRAMAJO ZADE Attending Clinician Unavailable Doris ANDRADE, Amalia Zapata Attending Clinician [phone] Baylee ANDRADE, Hussein Chand Attending Clinician Rox ANDRADE, Eleni Leary Attending Clinician [phone] Boy Ndiaye Attending Clinician Unavailable Jodie ANDRADE, Hebert Joaquin Attending Clinician [phone] Gabe Casas Attending Clinician Unavailable Livier Carver Attending Clinician Unavailable Sidney ANDRADE, Bradley Rich Attending Clinician [phone] Rick ANDRADE, Noris Castaneda Attending Clinician Ajay ANDRADE, Patricia Blanc Attending Clinician [phone] Miah ANDRADE, Nathaniel Zina Attending Clinician Phil ANDRADE, Dana Attending Clinician DANA VILLARREAL Attending Clinician Unavailable Louisa Sosa Attending Clinician Unavailable [email or web address] Attending Clinician Unavailable Dallin Sanchez Attending Clinician Unavailable Armond Owens Admitting Clinician Unavailable MT COY Admitting Clinician Unavailable AMALAI GEORGE Admitting Clinician Unavailable Bárbara Lemons Admitting Clinician Unavailable PATRICIA MOONEY Admitting Clinician Unavailable [email or web address] Admitting Clinician Unavailable Payers Payer Name Policy Type Policy Number Effective Date Expiration Date S ource GENERIC [id number] 2021 INSTIT,SNF,LTAC,RE 00:00:00 [facility] [id number] Problems Condition Condition Condition Status Onset Resolution Last Treating Co mments Source Name Details Category Date Date Treatment Clinician Date Acute on Acute on Disease [facility] blood loss [facility]: Me dical anemia anemia 00 Center Cervical Cervical Disease Active 2021-03 [facility] 00 [place] Symptomati Symptomati Disease Active 2021-[address] [facility] anemia c anemia 2-19 [facility] 00:[facility]: Medical 00 [place] Vaginal Vaginal Disease Active 2021-[address] bleeding bleeding 2 [facility] 00:[facility]: Medical 00 [place] AMANDA (iron AMANDA (iron Disease Recurre [facility] deficiency deficiency [facility] anemia) anemia) Medical Center Cervical Cervical Disease Recurre [facility] carcinoma carcinoma [facility] Drug use Drug use Disease Recurre [facility] Incarcerat Incarcerat Disease Recurre [facility] ion ion [facility] Hypotensio Hypotensio Disease Active C [facility] n due to n due to [facility] blood loss blood [facility] Hemorrhagi Hemorrhagi Disease Active [facility] c shock c shock [facility] Acute pain Acute pain Disease Active C HI [facility] Allergies, Adverse Reactions, Alerts Allergy Allergy Status Severity Reaction(s) Onset Inactive Treating Comm ents Source Name Type Date Date Clinician IBUPROFE Allergy Active [facility] N 06-08 00:00: 00 Ibuprofe Propensi Active [facility]08 [facility] adverse 00:00: Medical reaction 00 Center s Penic[place] Propensi Active [facility] to 06-08 [facility] adverse 00:00: Medical reaction 00 Center s PENICILL Allergy Active [facility] INS 06-08 00:00: 00 ibuprofe DA Active NM [facility] St 00 [place] Iam NSAIDS Allergy Active 2021-03 St. (Non-Baljeet to [facility] substan 09:12: Regiona Anti-Inf e 09 l lamma Health ibuprofe Allergy Active 2021-03 St. n to [facility] substan 09:05: Regiona e 34 l Health Penicill Allergy Active 2021-03 St. ins to [facility] substanc 09:05: Regiona e 21 l Health NSAIDS DA Active U 2021-03 STLSJX (Non-Baljeet [facility] 00:00: Anti-Inf 00 lamma [place] DA Active U 2021-03 STLSJX ins 00:00: 00 ibuprofe DA Active U 2021-03 STLSJX n 00:00: 00 IBPROFEN DA Active MO EDEMA [facility] 04-14 [facility] 00:[facility]: [facility] [place] DA Active U [facility] ins 2- [facility] 00:00: Marianela 00 [facility] [place] DA Active U RASH-UNKNOWN 2018-0 HC A ins 2 [facility] 00:00: Marianela 00 [facility] [place] DA Active U 2018-0 [facility] ins 03-27 [facility] 00:00: Marianela 00 [facility] Center NO KNOWN Allergy Active [facility] Social History Social Habit Start Date Stop Date Quantity Comments Source History [facility] History of tobacco [place] seph use [facility] History [facility] 2022-06-14 2022-06-[address] [facility] Transport Med 00:00:00 00:00:[address] History [facility] 2022-06-14 2022-06-[address] [facility] Housing Unable to 00:00:00 00:00:00 Medical Center Pay History [facility] 2022-06-14 2022-06-[address] [facility] Housing Places 00:00:00 00:00:00 Medical Ce nter Lived History [facility] 2022-06-14 2022-06-[address] [facility] Housing Homeless 00:00:00 00:00:00 Medical Center Last Year Tobacco use and 2022-02-25 2022-02-[address] [facility] exposure 00[facility]00[facility]00 00:00:00 non-user Medical Center Sex Assigned At [address] [facility] 00:00:00 00:00:[address] [facility] Smoking Status Start Date Stop Date Source Tobacco smoking [place] Regio nal consumption unknown Health (finding) Ex-smoker 2022-02-25 00:00:00 2022-02-[address] [facility] [address] [facility] 00:00:00 Center Medications Ordered Filled Start [...] Take 1 [facility] 100 MG 06-14-06 tablet [facility] tablet 00:00: 23:59 (100 mg [...] Observation Time Observation Value Comments Source WEIGHT 2022-07-27 04:25:00 60.328 kg WEIGHT 2022-07-25 03:22:00 59.875 kg HEIGHT 2022-07-24 01:11:23 165.1 cm WEIGHT 2022-07-24 01:11:23 60.3 kg WEIGHT 2022-07-23 03:00:00 65 kg WEIGHT 2022-07-22 05:00:00 68.9 kg WEIGHT 2022-07-21 18:00:00 68.5 kg HEIGHT 2022-07-21 11:15:00 165.1 cm WEIGHT 2022-07-21 11:15:00 68.5 kg WEIGHT 2022-07-27 04:25:00 60.328 kg WEIGHT 2022-07-25 03:22:00 59.875 kg HEIGHT 2022-07-24 01:11:23 165.1 cm WEIGHT 2022-07-24 01:11:23 60.3 kg WEIGHT 2022-07-23 03:00:00 65 kg WEIGHT 2022-07-22 05:00:00 68.9 kg WEIGHT 2022-07-21 18:00:00 68.5 kg HEIGHT 2022-07-21 11:15:00 165.1 cm WEIGHT 2022-07-21 11:15:00 68.5 kg HEIGHT 2022-06-08 11:00:00 165.1 cm WEIGHT 2022-06-08 11:00:00 63.5 kg HEIGHT 2022-06-08 11:00:00 165.1 cm WEIGHT 2022-06-08 11:00:00 63.5 kg WEIGHT 2022-03-09 11:47:00 72.708825 kg HEIGHT 2022-03-09 11:47:00 165.1 cm Body Temperature 2022-03-09 09:36:00 97.7 [degF] [facility] Heart Rate 2022-03-09 09:36:00 59 /min [facility] Respiratory rate 2022-03-09 09:36:00 20 /min [facility] Oxygen saturation by 2022-03-09 09:36:00 97 /min [place] Pulse oximetry [facility] BP Systolic 2022-03-09 09:36:00 99 mm[Hg] [facility] BP Diastolic 2022-03-09 09:36:00 58 mm[Hg] [facility] HEIGHT 2022-02-26 17:00:00 165.1 cm WEIGHT 2022-02-26 17:00:00 72.576 kg HEIGHT 2022-02-26 17:00:00 165.1 cm WEIGHT 2022-02-26 17:00:00 72.576 kg Heart rate 2022-06-14 12:46:18 73 /min [facility] Respiratory rate 2022-06-14 12:46:18 18 /min [facility] Oxygen saturation in 2022-06-14 12:46:18 100 /min [facility] Arterial blood by Medical Ce nter Pulse oximetry Body temperature 2022-06-14 12:45:29 36.61 Emelyn [facility] Systolic blood 2022-06-14 12:45:15 100 mm[Hg] [facility] Diastolic blood 2022-06-14 12:45:15 64 mm[Hg] [facility] Body height 2022-06-08 11:00:00 165.1 cm [facility] Body weight 2022-06-08 11:00:00 63.5 kg [facility] BMI 2022-06-08 11:00:00 23.30 kg/m2 [facility] Heart rate 2022-02-27 11:58:02 65 /min [facility] Respiratory rate 2022-02-27 11:58:02 17 /min [facility] Oxygen saturation in 2022-02-27 11:58:02 96 /min [facility] Arterial blood by Medical Ce nter Pulse oximetry Body temperature 2022-02-27 11:57:00 36.89 Emelyn [facility] Systolic blood 2022-02-27 11:56:30 95 mm[Hg] [facility] Diastolic blood 2022-02-27 11:56:30 54 mm[Hg] [facility] Body height 2022-02-26 18:01:00 165.1 cm [facility] Body weight 2022-02-26 18:01:00 72.6 kg [facility] BMI 2022-02-26 18:01:00 26.63 kg/m2 [facility] Procedures Procedure Date / Time Performing Clinician Source Performed BASIC METABOLIC PANEL 2022-06-14 03:21:[address] [facility] CBC (HEMOGRAM ONLY) 2022-06-14 03:21:00 [facility]acepaulinaStephy [facility] 2022-06-13 17:15:00 CandacepaulinaJennifer mcgovern [facility] CBC (HEMOGRAM ONLY) 2022-06-13 03:20:00 CandacepaulinaStephy [facility] BASIC METABOLIC PANEL 2022-06-13 03:20:[address] [facility] PROTHROMBIN TIME/INR 2022-06-12 09:42:00 Samy Jennifer [facility] CBC W/PLT COUNT & AUTO 2022-06-12 09:42:00 Eleni Gramajo [facility] DIFFERENTIAL [facility] CBC W/PLT COUNT & AUTO 2022-06-12 09:42:00 Eleni Gramajo C HI [facility] DIFFERENTIAL [facility] BASIC METABOLIC PANEL 2022-06-12 08:39:[address] [facility] MAGNESIUM 2022-06-12 08:39:00 Samy Jennifer [facility] PHOSPHORUS 2022-06-12 08:39:00 [facility] HEPATIC FUNCTION PANEL 2022-06-12 08:39:00 [facility] PREPARE LEUKO-REDUCED 2022-06-11 23:54:00 Radha Dahl [facility] CALCIUM, IONIZED 2022-06-11 12:08:00 Becki Barboza [facility] CBC (HEMOGRAM ONLY) 2022-06-11 12:08:00 Becki Barboza [facility] PROTHROMBIN TIME/INR 2022-06-11 12:08:[address] [facility] BASIC METABOLIC PANEL 2022-06-11 12:08:[address] [facility] POCT-GLUCOSE METER 2022-06-11 11:51:00 Hussein Winslow [facility] POCT-GLUCOSE METER 2022-06-11 06:30:00 Hussein Winslow [facility] CBC (HEMOGRAM ONLY) 2022-06-11 05:01:00 Becki Barboza [facility] PROTHROMBIN TIME/INR 2022-06-11 05:01:00 Becki Barboza [facility] CALCIUM, IONIZED 2022-06-11 04:32:00 Becki Barboza [facility] HEPATIC FUNCTION PANEL 2022-06-11 03:02:00 Chikis Jackson [facility] PHOSPHORUS 2022-06-11 03:02:[address] [facility] MAGNESIUM 2022-06-11 03:02:00 Becki Barboza [facility] POCT-GLUCOSE METER 2022-06-11 00:34:00 Hussein Winslow [facility] PREPARE LEUKO-REDUCED RBC 2022-06-10 23:54:00 Manuel [facility] PREPARE LEUKO-REDUCED 2022-06-10 23:54:00 Korina Terrell [facility] CALCIUM, IONIZED 2022-06-10 22:12:00 Becki Barboza [facility] PROTHROMBIN TIME/INR 2022-06-10 22:12:00 Becki Barboza [facility] CBC W/PLT COUNT & AUTO 2022-06-10 22:12:00 DenilsonEmir millsb [facility] CBC W/PLT COUNT & AUTO 2022-06-10 22:12:[address] [facility] CALCIUM, IONIZED 2022-06-10 17:19:00 [facility] (HE[facility] ONLY) 2022-06-10 17:19:[address] [facility] FIBRINOGEN 2022-06-10 17:19:00 [facility] PROT[facility]OM[facility]/INR 2022-06-10 17:19:00 Becki Barboza [facility] POCT-GLUCOSE METER 2022-06-10 17:18:00 Hussein Winslow [facility] TRANSFUSE LEUKO-REDUCED 2022-06-10 12:05:00 Radha Dahl [facility] CALCIUM, IONIZED 2022-06-10 12:03:00 Tamra [facility] CBC (HEMOGRAM ONLY) 2022-06-10 12:03:00 [facility] FIBRINOGEN 2022-06-10 12:03:00 Altriston [facility] PROTHROMBIN TIME/INR 2022-06-10 12:03:00 Tamra Beckialex Murry [facility] POCT-GLUCOSE METER 2022-06-10 11:11:00 Hussein Winslow [facility] VANCOMYCIN LEVEL, TROUGH 2022-06-10 09:06:00 Louisa Shrestha [facility] CALCIUM, IONIZED 2022-06-10 05:57:00 Altriston, [facility] CBC (HEMOGRAM ONLY) 2022-06-10 05:57:00 Altriston [facility] FIBRINOGEN 2022-06-10 05:57:00 Alore, [facility] PROTHROMBIN TIME/INR 2022-06-10 05:57:00 AlBecki goldstein [facility] POCT-GLUCOSE METER 2022-06-10 05:30:00 Amalia George [facility] CALCIUM, IONIZED 2022-06-10 01:00:00 Becki Barboza [facility] CBC (HEMOGRAM ONLY) 2022-06-10 01:00:00 Becki Barboza [facility] FIBRINOGEN 2022-06-10 01:00:00 Becki Barboza [facility] PROTHROMBIN TIME/INR 2022-06-10 01:00:00 Becki Barboza [facility] HEPATIC FUNCTION PANEL 2022-06-10 01:00:00 Chikis Jackson [facility] PHOSPHORUS 2022-06-10 01:00:00 [facility] BASIC METABOLIC PANEL 2022-06-10 01:00:00 Becki Barboza [facility] MAGNESIUM 2022-06-10 01:00:00 [facility] PREPARE LEUKO-REDUCED RBC 2022-06-09 23:54:00 Noa Loyola [facility] PREPARE PLASMA 2022-06-09 23:54:00 Manuel [facility] PREPARE CRYOPRECIPITATE 2022-06-09 23:54:[address] [facility] PREPARE LEUKO-REDUCED 2022-06-09 23:54:00 Chato Jackson [facility] PLATELETS [facility] POCT-GLUCOSE METER 2022-06-09 23:22:00 Amalia George [facility] TRANSFUSE LEUKO-REDUCED 2022-06-09 22:55:00 Korina Terrell [facility] POCT-GLUCOSE METER 2022-06-09 17:17:00 Doris [facility] CALCIUM, IONIZED 2022-06-09 17:14:00 [facility] (HEMOGRAM ONLY) 2022-06-09 17:14:[address] [facility] FIBRINOGEN 2022-06-09 17:14:00 [facility] PROTHROMBIN TIME/INR 2022-06-09 17:14:00 Tamra Becki [facility] BLOOD CULTURE 2022-06-09 15:03:00 PeteOdilia [facility] POCT-GLUCOSE METER 2022-06-09 12:15:00 Amalia George [facility] CALCIUM, IONIZED 2022-06-09 12:05:[address] [facility] CBC (HEMOGRAM ONLY) 2022-06-09 12:05:00 Tamra [facility] FIBRINOGEN 2022-06-09 12:05:00 Tamra [facility] PROTHROMBIN TIME/INR 2022-06-09 12:05:00 [facility] PROCALCITONIN 2022-06-09 12:05:00 [facility] BLOOD GAS, ARTERIAL 2022-06-09 08:18:00 Manuel, [facility] PROTHROMBIN TIME/INR 2022-06-09 08:13:00 Tamra [facility] CBC (HEMOGRAM ONLY) 2022-06-09 08:13:00 Manuel, [facility] BASIC METABOLIC PANEL 2022-06-09 08:13:00 Manuel, [facility] FIBRINOGEN 2022-06-09 08:13:00 Manuel, [facility] LACTIC ACID, ARTERIAL 2022-06-09 08:13:00 Manule, [facility] CALCIUM, IONIZED 2022-06-09 08:13:00 Manuel, [facility] MAGNESIUM 2022-06-09 08:13:00 Manuel, [facility] URINALYSIS W/ REFLEX URINE 2022-06-09 04:49:00 Ruperto Patsy Jonesladonna gould [facility] CULTURE [facility] RAPID DRUG SCREEN, URINE 2022-06-09 04:49:00 Ruperto, Patsy Cornelio [facility] DRUG TEST, GENERAL 2022-06-09 04:49:00 Joey Crandall [facility]ICOLOGY, [facility] BLOOD GAS, ARTERIAL 2022-06-09 04:29:00 Manuel, [facility] PROTHROMBIN TIME/INR 2022-06-09 04:28:00 Becki Barboza [facility] I [facility] CBC (HEMOGRAM ONLY) 2022-06-09 04:28:00 Manuel, [facility] BASIC METABOLIC PANEL 2022-06-09 04:28:00 Manuel, [facility] FIBRINOGEN 2022-06-09 04:28:00 Manuel, [facility] LACTIC ACID, ARTERIAL 2022-06-09 04:28:00 Manuel, [facility] HEPATIC FUNCTION PANEL 2022-06-09 04:28:00 Manuel, [facility] CALCIUM, IONIZED 2022-06-09 04:28:00 Manuel, [facility] PHOSPHORUS 2022-06-09 04:28:00 Manuel, [facility] MAGNESIUM 2022-06-09 04:28:00 Manuel, [facility] VWF ACTIVITY 2022-06-09 04:28:00 Ramon Botello [facility] XR CHEST 1 VIEW PORTABLE / 2022-06-09 01:43:00 ManuelChikis smith [facility] BEDSIDE [facility] TRANSFUSE LEUKO-REDUCED 2022-06-09 01:38:00 Manuel, [facility] PLATELETS [facility] THROMBOELASTOGRAPH (TEG) 2022-06-09 01:14:00 Manuel, [facility] TRANSFUSE PLASMA 2022-06-09 00:46:00 Manuel, [facility] TRANSFUSE LEUKO-REDUCED RED 2022-06-09 00:34:[address] [facility] BLOOD CELLS [facility] CBC W/PLT COUNT & AUTO 2022-06-09 00:29:00 Manuel, [facility] DIFFERENTIAL [facility] CBC W/PLT COUNT & AUTO 2022-06-09 00:29:00 Manuel [facility] DIFFERENTIAL [facility] (CELLAVISION MANUAL DIFF) 2022-06-09 00:29:[address] [facility] BLOOD GAS, ARTERIAL 2022-06-09 00:26:00 Manuel [facility] VITAMIN B12 2022-06-09 00:25:00 Ramon Botello [facility] BASIC METABOLIC PANEL 2022-06-09 00:25:00 Manuel, [facility] FIBRINOGEN 2022-06-09 00:25:00 Manuel, [facility] LACTIC ACID, ARTERIAL 2022-06-09 00:25:00 Manuel [facility] CALCIUM, IONIZED 2022-06-09 00:25:00 Manuel, [facility] MAGNESIUM 2022-06-09 00:25:00 Manuel, [facility] XR CHEST 1 VIEW PORTABLE / 2022-06-09 00:15:00 Chikis Jackson [facility] BEDSIDE [facility] CBC (HEMOGRAM ONLY) 2022-06-08 22:09:00 Manuel [facility] BLOOD GAS, ARTERIAL 2022-06-08 22:06:00 Manuel [facility] TRANSFUSE PLASMA 2022-06-08 21:51:[address] [facility] PREPARE PLASMA 2022-06-08 21:29:00 Manuel [facility] BLOOD GAS, ARTERIAL 2022-06-08 20:53:00 MofMatthew dash Cristaleugenio [facility] FIBRINOGEN 2022-06-08 20:50:00 Becki Barboza [facility] PROTHROMBIN TIME/INR 2022-06-08 20:50:00 Becki Barboza I [facility] MAGNESIUM 2022-06-08 20:50:00 Manuel [facility] PHOSPHORUS 2022-06-08 20:50:00 Manuel, [facility] CALCIUM, IONIZED 2022-06-08 20:50:00 Manuel, [facility] s [facility] LACTIC ACID, ARTERIAL 2022-06-08 20:50:00 Manuel, [facility] APTT 2022-06-08 20:50:00 Manuel, [facility] THROMBOELASTOGRAPH (TEG) 2022-06-08 20:50:00 Manuel, [facility] IR EMBOLIZATION ARTERIAL 2022-06-08 20:33:00 JackMarimarvani melendez [facility] TRANSFUSE LEUKO-REDUCED RED 2022-06-08 20:31:00 AnaliLanden dashgarcía Khan [facility] TRANSFUSE LEUKO-REDUCED RED 2022-06-08 18:18:00 [facility] Landengarcía cruz [facility] SCREEN, URINE 2022-06-08 18:14:[address] [facility] Hospital[facility] medicine[facility] TRANSFUSE CRYOPRECIPITATE 2022-06-08 18:04:00 Becki Barboza [facility] TRANSFUSE PLASMA 2022-06-08 17:57:00 Matthew Santiago [facility] TRANSFUSE LEUKO-REDUCED 2022-06-08 17:41:00 Chikis Jackson [facility] THROMBO[facility] (TEG) 2022-06-08 17:36:00 Matthew Santiago [facility] LACTIC ACID, ARTERIAL 2022-06-08 17:35:00 Noa [facility] PT/APTT 2022-06-08 17:35:00 Marimar Santiagogarcía Li [facility] FIBRINOGEN 2022-06-08 17:35:[address] [facility] D-DIMER 2022-06-08 17:35:00 [facility] CALCIUM, IONIZED 2022-06-08 17:35:00 Matthew Santiago [facility] CBC W/PLT COUNT & AUTO 2022-06-08 17:35:00 Marimar Santiagogarcía Li [facility] BASIC METABOLIC PANEL 2022-06-08 17:35:00 [facility] dash [facility] RETICULOCYTE COUNT 2022-06-08 17:35:00 Ramon Botello [facility] LACTATE DEHYDROGENASE (LDH) 2022-06-08 17:35:00 Ramon Botello [facility] CBC W/PLT COUNT & AUTO 2022-06-08 17:35:00 Matthew Santiago [facility] POCT-BLOOD GASES, ARTERIAL 2022-06-08 17:22:00 Amalia George [facility] POCT-SODIUM 2022-06-08 17:22:00 Doris [facility] POCT-POTASSIUM 2022-06-08 17:22:00 [facility] POCT-HEMOGLOBIN 2022-06-08 17:22:00 [facility]-HEMATOCRIT 2022-06-08 17:22:00 Doris, [facility] POCT-GLUCOSE 2022-06-08 17:22:00 [facility] C PCR, 2022-06-08 16:26:00 Donavan [facility] HEPATITIS B PCR, 2022-06-08 16:26:00 Pernell [facility] CMV PCR, QUANTITATIVE 2022-06-08 16:26:00 Pernell [facility] EBV VIRAL LOAD 2022-06-08 16:26:00 Donavan [facility] TRANSFUSE LEUKO-REDUCED RED 2022-06-08 16:15:00 Chikis Jackson [facility] BLOOD CELLS [facility] SALICYLATE LEVEL 2022-06-08 15:26:00 Joey Crandall [facility] CORTISOL 2022-06-08 15:26:00 Noa [facility]ola [facility] HEPATITIS B CORE ANTIBODY, 2022-06-08 15:26:00 Laura Gimenez [facility] HEPATITIS A ANTIBODY, IGG 2022-06-08 15:26:00 Pernell [facility] HEPATITIS B SURFACE ANTIBODY 2022-06-08 15:26:00 Pernell [facility] CERULOPLASMIN 2022-06-08 15:26:00 Pernell [facility] [id number]\\, SERUM 2022-06-08 15:26:00 Pernell [facility] ANTI-NUCLEAR ANTIBODY (HAYDEN) 2022-06-08 15:26:00 Donavan [facility] HEPATITIS A ANTIBODY, IGM 2022-06-08 15:26:00 Pernell [facility] EBV ANTIBODY, IGM 2022-06-08 15:26:[address] [facility] FERRITIN 2022-06-08 15:26:00 Ramon Botello [facility] IRON, TIBC, % SAT. (WITHOUT 2022-06-08 15:26:00 Ramon Botello [facility] FERRITIN) [facility] ACTIN (SMOOTH MUSCLE) 2022-06-08 15:26:00 [facility] ANTIBODY, IGG [facility] HEPATITIS E ABS IGG/IGM EIA 2022-06-08 15:26:00 [facility] MITOCHONDRIAL AB SCREEN 2022-06-08 15:26:00 [facility] MITOCHONDRIAL AB TITER 2022-06-08 15:26:00 [facility] AMMONIA 2022-06-08 15:00:00 Joey Crandall [facility] CREATINE KINASE (CK) 2022-06-08 14:37:00 Donavan [facility] GLUCOSE 2022-06-08 14:37:00 [facility] SODIUM 2022-06-08 14:37:00 [facility] POTASSIUM 2022-06-08 14:37:00 [facility] BASIC METABOLIC PANEL 2022-06-08 14:37:[address] [facility] US ABDOMEN COMPLETE 2022-06-08 13:36:00 Joey Crandall [facility] US DOPPLER 2022-06-08 13:36:00 Pernell [facility] XR CHEST 1 VIEW PORTABLE / 2022-06-08 12:26:00 Noa Loyola [facility] BEDSIDE [facility] CBC W/PLT COUNT & AUTO 2022-06-08 12:23:00 Joey Crandall [facility] COMPREHENSIVE METABOLIC 2022-06-08 12:23:00 Joye Crandall [facility] PANEL [facility] APTT 2022-06-08 12:23:00 Karley [facility] PROTHROMBIN TIME/INR 2022-06-08 12:23:00 Joey Crandall [facility] MAGNESIUM 2022-06-08 12:23:00 Karley [facility] PHOSPHORUS 2022-06-08 12:23:00 Karley [facility] IRON, TIBC, % SAT. (WITHOUT 2022-06-08 12:23:00 MelanieJoanne [facility] 12:23:00 Karley [facility] VITAMIN B12 2022-06-08 12:23:00 Karley [facility] FIBRINOGEN 2022-06-08 12:23[facility]00 [facility] T4 IF INDICATED 2022-06-08 12:23:00 Noa Loyola [facility] HEPATITIS C ANTIBODY 2022-06-08 12:23:00 [facility] HEPATITIS B SURFACE ANTIGEN 2022-06-08 12:23[facility]1 [facility] W/HIV-1&2 AB 2022-06-08 12:23:00 [facility] T4, FREE 2022-06-08 12:23:00 Nir [facility] TYPE AND SCREEN, AUTOMATED 2022-06-08 12:23:00 Cherise Crandall [facility] CBC W/PLT COUNT & AUTO 2022-06-08 12:23:[address] [facility] POCT-BLOOD GASES, ARTERIAL 2022-06-08 12:18:00 Doris Amalia [facility] POCT-SODIUM 2022-06-08 12:18:00 Doris [facility] POCT-POTASSIUM 2022-06-08 12:18:00 Doris [facility] POCT-HEMOGLOBIN 2022-06-08 12:18:00 Doris, [facility] POCT-HEMATOCRIT 2022-06-08 12:18:00 [facility] PO[facility]-GLUCOSE 2022-06-08 12:18:00 [facility] EKG-SCANNED 2022-06-08 00:00:00 Provider, [facility] US Pelvic Transvag W Doppler 2022-03-09 03:52:[address] [facility] [address] Abdomen Pelvis W Con 2022-03-09 00:15:00 [facility] EKG 12 Lead in Emergency 2022-03-08 23:09:00 [facility] XR Chest 1 View Portable 2022-03-08 23:08:00 [facility] PREPARE RBC 2022-02-27 23:54:00 [facility] MAGNESIUM 2022-02-27 03:49:00 [facility] PHOSPHORUS 2022-02-27 03:49:00 [facility] IRON, TIBC, % SAT. (WITHOUT 2022-02-27 03:49:00 Soheila-Rach, Sung In [facility] FERRITIN) Medical Center FERRITIN 2022-02-27 03:49:00 Soheila-Rach Sung In [facility] INCUBATED 1:1 MIXING STUDY 2022-02-27 03:49:00 Soheila-Rach Sung In [facility] BASIC METABOLIC PANEL 2022-02-27 03:49:00 Soheila-Rach, Sung In [facility] CBC (HEMOGRAM ONLY) 2022-02-27 03:49:00 Soheila-RachNathaniel tony In [facility] TISSUE EXAM 2022-02-26 16:38:00 Yamile Reyez [facility] CBC (HEMOGRAM ONLY) 2022-02-26 08:34:00 Nathaniel Dooley In [facility] PT/APTT 2022-02-26 08:33:00 Henrietta Dooleyg In [facility] FACTOR 9 ACTIVITY 2022-02-26 08:33:00 Miah Henriettag In [facility] FACTOR 8 ACTIVITY 2022-02-26 08:33:00 HarleyRach Henriettag In [facility] HEMOGLOBIN AND HEMATOCRIT 2022-02-26 05:29:00 Ajay [facility] RETICULOCYTE COUNT 2022-02-26 05:29:00 BillNathaniel tony In [facility] CALCIUM, IONIZED 2022-02-26 03:56:00 Patricia Mooney [facility] TRANSFUSE LEUKO-REDUCED RED 2022-02-26 01:35:00 Robert Mooney [facility] BLOOD CELLS [facility] SARS-COV2/RT-PCR ([facility] & REF 2022-02-25 23:23:00 Pardeep Mooney [facility] LABS) [facility] ABORH, MANUAL 2022-02-25 23:22:00 Liset Cardona [facility] CBC W/PLT COUNT & AUTO 2022-02-25 22:03:00 Patricia Mooney [facility] DIFFERENTIAL [facility] COMPREHENSIVE METABOLIC 2022-02-25 22:03:00 Patricia Mooney [facility] PROTHROMBIN TIME/INR 2022-02-25 22:03:00 [facility] MAGNESIUM 2022-02-25 22:03:00 [facility] TYPE AND SCREEN, AUTOMATED 2022-02-25 22:03:00 Patricia Mooney [facility] CBC W/PLT COUNT & AUTO 2022-02-25 22:03:[address] [facility] [id number] 2020-01-24 00:00:00 [facility] [id number] 2020-01-24 00:00:00 [facility] [id number] 2020-01-24 00:00:00 [facility] Plan of Care Planned Activity Planned Date [facility]00 (12+) [code = [facility] DEPRESSION SCREENING (12+)] Future Scheduled 2022-03-[address] [facility] Test 00:00:00 (12+) [code = [facility] DEPRESSION SCREENING (12+)] Future Scheduled 2021-11-[address] [facility] Test 00:00:00 (#1) [code = [facility] INFLUENZA VACCINE (#1)] Future Scheduled 2021-11-[address] [facility] Test 00:00:00 (#1) [code = [facility] INFLUENZA VACCINE (#1)] Future Scheduled 2021-11-[address] [facility] Test 00:00:00 (#1) [code = [facility] INFLUENZA VACCINE (#1)] Future Scheduled 2021-11-[address] [facility] Test 00:00:00 (#1) [code = [facility] INFLUENZA VACCINE (#1)] Future Scheduled 2021-11-[address] [facility] Test 00:00:00 (#1) [code = [facility] INFLUENZA VACCINE (#1)] Future Scheduled 2021-03-[address] [facility] Test 00:00:00 (12+) [code = [facility] DEPRESSION SCREENING (12+)] Future Scheduled 2004-09-[address] [facility] Test 00:00:00 malignant neoplasm of Medica l Center cervix (procedure) [code = [id number]] Future Scheduled 2002-09-07 DTAP/TDAP/TD VACCINES CH I [...] Clinicians Facility Department ID 2022-03-09 Hospital ER [facility] Gynecology [id number] 00:00:00 Encounter [facility] 2020-01-24 Inpatient Corrada, HCACC SHANA [id number] [facility] 04:01:00 Armond [id number] [facility] 2022-07-21 2022-07-27 Inpatient ER ABHILASH, [facility] Neuro ICU [id number] [facility] 10:45:00 13:59:00 YASHASH 2022-06-19 2022-06-19 [facility] [id number] 00:00:00 00:00:00 Board Farzaneh Ramirez [facility] 2022-06-08 2022-06-14 Inpatient ER ROX, [facility] 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 [id number] SLE 10:46:00 14:05:00 MRINALINI Oncology 2022-06-08 2022-06-14 [facility] ER Amalia George [facility] [id number] 10:46:00 14:05:00 Encounter Hussein [facility], [facility] 2022-06-14 2022-06-14 Outpatient EL [facility] [id number] [facility] 07:39:48 07:39:48 2022-06-13 2022-06-13 Outpatient EL [facility] [id number] [facility] 11:32:48 11:32:48 2022-06-12 2022-06-12 Outpatient EL [facility] [id number] [facility] 08:50:39 08:50:39 2022-03-18 2022-03-18 Emergency ER Senthil, [facility] [id number] 18:23:00 22:48:00 [facility][id number] [facility] 2022-03-13 2022-03-13 Outside [facility] [id number] 00:00:00 00:00:00 Orders [facility] 2022-03-09 2022-03-12 [facility] [id number] STLSJX 08:49:00 14:02:00 Gabe -[id number] 2022-03-12 2022-03-12 [facility] [id number] 00:00:00 00:00:00 Only [facility] 2022-03-08 2022-03-09 Emergency ER Wen, [facility] [id number] 22:41:00 09:05:00 Livier -[id number] Eron garcia Hesham Vitale 2022-03-09 2022-03-09 Admitted [id number] [place] [id number]. 08:49:00 08:49:00 Inpatient [id number] Regional 50 J oseph [id number] [facility] Re giona [id number] POST [facility] 2022-03-09 2022-03-09 Telephone Little, [facility] [id number] 00:00:00 00:00:00 Kwesichelebud [facility] 2022-02-25 2022-02-27 Hospital ER Noris Cabrera [facility] [id number] 21:25:00 19:09:00 Encounter Patricia Mooney Sung [facility] 2022-02-25 2022-02-27 Inpatient ER PHIL, DANA [facility] 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 [id number] [facility] 21:25:00 19:09:00 Oncology 2022-02-25 2022-02-25 Emergency ER Sharer, [facility] [id number] 10:23:00 19:24:00 [id number] 2022-02-15 2022-02-15 Outpatient [id number] PRIV PRIV [id number] [facility] 00:00:00 00:00:00 _J [id number] Medica l 2021-10-11 2021-10-11 Emergency EM Laura, [facility] ER [id number] [facility] 13:35:00 20:55:00 Dallin Sewell [facility] 2021-10-11 2021-10-11 Emergency EM Laura, [facility] [id number] [facility] 13:35:00 20:55:00 Dallin [id number] [facility] Results Test Description Test Time Test Comments Results Result Comments Source POCT-GLUCOSE METER 2022-07-27 07:57:35 Test Item Value Reference Range Interpretation Comme nts POC-GLUCOSE METER (BEAKER) 96 mg/dL 70-110 : TESTED AT [facility] 67[address] O[address] (test code = 1538) GINI Ramos 10094: Wildlife Biologist/Techni skip ID = [id number] for Sidney (c ontract), M[place] [id number] 07:34:33 Test Item Value Reference Range Interpretation Comments PHOSPHORUS (BEAKER) (test code = 3.7 mg/dL 2.3-4.7 604) Wildlife Biologist ID - SUOBASIC METABOLIC [id number] 07:34:32 Test Item Value Reference Range Interpretation Comments SODIUM (BEAKER) 138 meq/L 136-145 (test code = 381) POTASSIUM 3.8 meq/L 3.5-5.1 (BEAKER) (test code = 379) CHLORIDE (BEAKER) 105 meq/L 98-107 (test code = 382) CO2 (BEAKER) 23 meq/L 22-29 (test code = 355) BLOOD UREA 13 mg/dL 7-21 NITROGEN (BEAKER) (test code = 354) CREATININE 1.12 mg/dL 0.57-1.25 (BEAKER) (test code = 358) GLUCOSE RANDOM 86 mg/dL 70-105 (BEAKER) (test code = 652) CALCIUM (BEAKER) 9.9 mg/dL 8.4-10.2 (test code = 697) EGFR (BEAKER) 65 Interpretatio n of eGFR (test code = [...] not appl icable for dialysis patien ts Wildlife Biologist ID - [id number] 07:34:32 Test Item Value Reference Range Interpretation Comments MAGNESIUM (BEAKER) (test code = 1.8 mg/dL 1.6-2.6 627) Wildlife Biologist ID - SUOCBC W/PLT COUNT & AUTO [id number] 06:33:48 Test Item Value Reference Range Interpretation Comments WHITE BLOOD CELL COUNT (BEAKER) 8.7 K/ L 3.5-10.5 (test code = 775) RED BLOOD CELL COUNT (BEAKER) 3.36 M/ L 3.93-5.22 L (test code = 761) HEMOGLOBIN (BEAKER) (test code = 9.8 GM/DL 11.2-15.7 L 410) HEMATOCRIT (BEAKER) (test code = 30.4 % 34.1-44.9 L 411) MEAN CORPUSCULAR VOLUME (BEAKER) 91 fL 79-95 (test code = 753) MEAN CORPUSCULAR HEMOGLOBIN 29.2 pg 25.6-32.2 (BEAKER) (test code = 751) MEAN CORPUSCULAR HEMOGLOBIN CONC 32.2 GM/DL 32.2-35.5 (BEAKER) (test code = 752) RED CELL DISTRIBUTION WIDTH 17.2 % 11.7-14.4 H (BEAKER) (test code = 412) PLATELET COUNT (BEAKER) (test 251 K/CU MM 150-450 code = 756) MEAN PLATELET VOLUME (BEAKER) 10.2 fL 9.4-12.3 (test code = 754) NUCLEATED RED BLOOD CELLS 0 /100 WBC 0-0 (BEAKER) (test code = 413) NEUTROPHILS RELATIVE PERCENT 74 % (BEAKER) (test code = 429) LYMPHOCYTES RELATIVE PERCENT 17 % (BEAKER) (test code = 430) MONOCYTES RELATIVE PERCENT 7 % (BEAKER) (test code = 431) EOSINOPHILS RELATIVE PERCENT 3 % (BEAKER) (test code = 432) BASOPHILS RELATIVE PERCENT 0 % (BEAKER) (test code = 437) NEUTROPHILS ABSOLUTE COUNT 6.37 K/ L 1.56-6.13 H (BEAKER) (test code = 670) LYMPHOCYTES ABSOLUTE COUNT 1.45 K/ L 1.18-3.74 (BEAKER) (test code = 414) MONOCYTES ABSOLUTE COUNT (BEAKER) 0.57 K/ L 0.24-0.36 H (test code = 415) EOSINOPHILS ABSOLUTE COUNT 0.23 K/ L 0.04-0.36 (BEAKER) (test code = 416) BASOPHILS ABSOLUTE COUNT (BEAKER) 0.01 K/ L 0.01-0.08 (test code = 417) IMMATURE GRANULOCYTES-RELATIVE 0.30 % 0.00-1.00 PERCENT (BEAKER) (test code = 2801) MR, BRAIN, WITHOUT [id number] 20:08:00Epilepsy protocol Unlisted Reason for Exam - Click Yes and Enter Reason Below->No [facility] : 1985 Sex: FFINAL REPORT MR, BRAIN, WITHOUT CONTRAST INDICATION: Seizure, new-onset, no history of trauma TECHNIQUE: Multiplanar, multisequence MR imaging of the brain was obtained. COMPARISON: None FINDINGS:Brain parenchyma is normal in morphology. Midline structures are normally developed. No restricted diffusion to suggest recent ischemic insult. No abnormal susceptibility. No hydrocephalus. Orbits are within normal limits. No obstructive paranasal sinus disease. IMPRESSION: No acute infarct, intracranial hemorrhage, or mass. No mesial temporal sclerosis identified. Signed: Stephany Miguel MDReport Verified Date/Time: 07/26/2022 20:08:29 POCT-GLUCOSE [id number] 16:21:21 Test Item Value Reference Range Interpretation Comments POC-GLUCOSE METER 90 mg/dL 70-110 : TESTED A T [facility] 6720 (Assurely) (test code [facility], = 1538) [id number]: Wildlife Biologist/Techni skip ID = [id number] for Raiza (contract)Janet POCT-GLUCOSE [id number] 11:24:11 Test Item Value Reference Range Interpretation Comments POC-GLUCOSE METER 84 mg/dL 70-110 : TESTED A T [facility] 6720 (Assurely) (test code = CRISTINABARB [facility], 1538) [id number]: Wildlife Biologist/Techni skip ID = [id number] for Alva Gonzalez [id number] 06:24:20 Test Item Value Reference Range Interpretation Comments PHOSPHORUS ([facility]) (test code = 3.1 mg/dL 2.3-4.7 604) Wildlife Biologist ID - ADMINBASIC METABOLIC [id number] 06:24:19 Test Item Value Reference Range Interpretation Comments SODIUM (BEAKER) 136 meq/L 136-145 (test code = 381) POTASSIUM 3.9 meq/L 3.5-5.1 (BEAKER) (test code = 379) CHLORIDE (BEAKER) 105 meq/L 98-107 (test code = 382) CO2 (BEAKER) 20 meq/L 22-29 L (test code = 355) BLOOD UREA 11 mg/dL 7-21 NITROGEN (BEAKER) (test code = 354) CREATININE 1.04 mg/dL 0.57-1.25 (BEAKER) (test code = 358) GLUCOSE RANDOM 80 mg/dL 70-105 (BEAKER) (test code = 652) CALCIUM (BEAKER) 9.1 mg/dL 8.4-10.2 (test code = 697) EGFR (BEAKER) 71 Interpretatio n of eGFR (test code = [...] not appl icable for dialysis patien ts Wildlife Biologist ID - [id number] 06:24:19 Test Item Value Reference Range Interpretation Comments MAGNESIUM (BEAKER) (test code = 1.8 mg/dL 1.6-2.6 627) Wildlife Biologist ID - ADMINCBC W/PLT COUNT & AUTO [id number] 05:27:14 Test Item Value Reference Range Interpretation Comments WHITE BLOOD CELL COUNT (BEAKER) 8.5 K/ L 3.5-10.5 (test code = 775) RED BLOOD CELL COUNT (BEAKER) 3.14 M/ L 3.93-5.22 L (test code = 761) HEMOGLOBIN (BEAKER) (test code = 9.4 GM/DL 11.2-15.7 L 410) HEMATOCRIT (BEAKER) (test code = 28.3 % 34.1-44.9 L 411) MEAN CORPUSCULAR VOLUME (BEAKER) 90 fL 79-95 (test code = 753) MEAN CORPUSCULAR HEMOGLOBIN 29.9 pg 25.6-32.2 (BEAKER) (test code = 751) MEAN CORPUSCULAR HEMOGLOBIN CONC 33.2 GM/DL 32.2-35.5 (BEAKER) (test code = 752) RED CELL DISTRIBUTION WIDTH 17.2 % 11.7-14.4 H (BEAKER) (test code = 412) PLATELET COUNT (BEAKER) (test 210 K/CU MM 150-450 code = 756) MEAN PLATELET VOLUME (BEAKER) 9.8 fL 9.4-12.3 (test code = 754) NUCLEATED RED BLOOD CELLS 0 /100 WBC 0-0 (BEAKER) (test code = 413) NEUTROPHILS RELATIVE PERCENT 70 % (BEAKER) (test code = 429) LYMPHOCYTES RELATIVE PERCENT 17 % (BEAKER) (test code = 430) MONOCYTES RELATIVE PERCENT 7 % (BEAKER) (test code = 431) EOSINOPHILS RELATIVE PERCENT 5 % (BEAKER) (test code = 432) BASOPHILS RELATIVE PERCENT 0 % (BEAKER) (test code = 437) NEUTROPHILS ABSOLUTE COUNT 5.97 K/ L 1.56-6.13 (BEAKER) (test code = 670) LYMPHOCYTES ABSOLUTE COUNT 1.47 K/ L 1.18-3.74 (BEAKER) (test code = 414) MONOCYTES ABSOLUTE COUNT (BEAKER) 0.62 K/ L 0.24-0.36 H (test code = 415) EOSINOPHILS ABSOLUTE COUNT 0.38 K/ L 0.04-0.36 H (BEAKER) (test code = 416) BASOPHILS ABSOLUTE COUNT (BEAKER) 0.01 K/ L 0.01-0.08 (test code = 417) IMMATURE GRANULOCYTES-RELATIVE 0.40 % 0.00-1.00 PERCENT (BEAKER) (test code = 2801) POCT-GLUCOSE [id number] 18:35:43 Test Item Value Reference Range Interpretation Comments POC-GLUCOSE METER 114 mg/dL 70-110 H : TESTED Ladonna Zhang [facility] 6720 (BEAKER) (test code = [place], 1538) 939[address]: Wildlife Biologist/Techni skip ID = [id number] for Joni Shook POCT-GLUCOSE [id number] 16:30:37 Test Item Value Reference Range Interpretation Comments POC-GLUCOSE METER 104 mg/dL 70-110 : TESTED A T [facility] 6720 (BEAKER) (test code = [facility], 1538) 88458: Wildlife Biologist/Techni skip ID = [id number] for Mouna peraza Amanda POCT-GLUCOSE [id number] 13:06:15 Test Item Value Reference Range Interpretation Comments POC-GLUCOSE METER 96 mg/dL 70-110 : TESTED A T [facility] 6720 (BEAKER) (test code = [facility], 1538) 20728: Wildlife Biologist/Techni skip ID = [id number] for Megan odell, Amanda POCT-GLUCOSE [id number] 07:46:57 Test Item Value Reference Range Interpretation Comments POC-GLUCOSE METER 84 mg/dL 70-110 : TESTED A T [facility] 6720 (BEAKER) (test code = [facility], 1538) 77019: Wildlife Biologist/Techni skip ID = [id number] for Megan odell, Amanda [id number] 05:56:08 Test Item Value Reference Range Interpretation Comments MAGNESIUM (BEAKER) (test code = 2.4 mg/dL 1.6-2.6 627) Wildlife Biologist ID - [id number] 05:56:08 Test Item Value Reference Range Interpretation Comments PHOSPHORUS (BEAKER) (test code = 3.2 mg/dL 2.3-4.7 604) Wildlife Biologist ID - ADMINCOMPREHENSIVE METABOLIC [id number] 05:56:07 Test Item Value Reference Range Interpretation Comments TOTAL PROTEIN 8.0 gm/dL 6.0-8.3 (BEAKER) (test code = 770) ALBUMIN (BEAKER) 3.8 g/dL 3.5-5.0 (test code = 1145) ALKALINE 99 U/L 40-150 PHOSPHATASE (BEAKER) (test code = 346) BILIRUBIN TOTAL 0.5 mg/dL 0.2-1.2 (BEAKER) (test code = 377) SODIUM (BEAKER) 139 meq/L 136-145 (test code = 381) POTASSIUM (BEAKER) 4.1 meq/L 3.5-5.1 (test code = 379) CHLORIDE (BEAKER) 103 meq/L 98-107 (test code = 382) CO2 (BEAKER) (test 24 meq/L 22-29 code = 355) BLOOD UREA 9 mg/dL 7-21 NITROGEN (BEAKER) (test code = 354) CREATININE 1.07 mg/dL 0.57-1.25 (BEAKER) (test code = 358) GLUCOSE RANDOM 85 mg/dL 70-105 (BEAKER) (test code = 652) CALCIUM (BEAKER) 9.6 mg/dL 8.4-10.2 (test code = 697) AST (SGOT) 14 U/L 5-34 (BEAKER) (test code = 353) ALT (SGPT) 10 U/L 6-55 (BEAKER) (test code = 347) EGFR (BEAKER) 68 Interpretatio n of eGFR (test code = [...] not appl icable for dialysis patien ts Wildlife Biologist ID - ADMINCBC W/PLT COUNT & AUTO [id number] 05:18:06 Test Item Value Reference Range Interpretation Comments WHITE BLOOD CELL COUNT (BEAKER) 10.1 K/ L 3.5-10.5 (test code = 775) RED BLOOD CELL COUNT (BEAKER) 3.36 M/ L 3.93-5.22 L (test code = 761) HEMOGLOBIN (BEAKER) (test code = 9.9 GM/DL 11.2-15.7 L 410) HEMATOCRIT (BEAKER) (test code = 31.0 % 34.1-44.9 L 411) MEAN CORPUSCULAR VOLUME (BEAKER) 92 fL 79-95 (test code = 753) MEAN CORPUSCULAR HEMOGLOBIN 29.5 pg 25.6-32.2 (BEAKER) (test code = 751) MEAN CORPUSCULAR HEMOGLOBIN CONC 31.9 GM/DL 32.2-35.5 L (BEAKER) (test code = 752) RED CELL DISTRIBUTION WIDTH 17.7 % 11.7-14.4 H (BEAKER) (test code = 412) PLATELET COUNT (BEAKER) (test 250 K/CU MM 150-450 code = 756) MEAN PLATELET VOLUME (BEAKER) 10.1 fL 9.4-12.3 (test code = 754) NUCLEATED RED BLOOD CELLS 0 /100 WBC 0-0 (BEAKER) (test code = 413) NEUTROPHILS RELATIVE PERCENT 76 % (BEAKER) (test code = 429) LYMPHOCYTES RELATIVE PERCENT 14 % (BEAKER) (test code = 430) MONOCYTES RELATIVE PERCENT 5 % (BEAKER) (test code = 431) EOSINOPHILS RELATIVE PERCENT 5 % (BEAKER) (test code = 432) BASOPHILS RELATIVE PERCENT 0 % (BEAKER) (test code = 437) NEUTROPHILS ABSOLUTE COUNT 7.67 K/ L 1.56-6.13 H (BEAKER) (test code = 670) LYMPHOCYTES ABSOLUTE COUNT 1.37 K/ L 1.18-3.74 (BEAKER) (test code = 414) MONOCYTES ABSOLUTE COUNT (BEAKER) 0.53 K/ L 0.24-0.36 H (test code = 415) EOSINOPHILS ABSOLUTE COUNT 0.46 K/ L 0.04-0.36 H (BEAKER) (test code = 416) BASOPHILS ABSOLUTE COUNT (BEAKER) 0.01 K/ L 0.01-0.08 (test code = 417) IMMATURE GRANULOCYTES-RELATIVE 0.30 % 0.00-1.00 PERCENT (BEAKER) (test code = 2801) POCT-GLUCOSE [id number] 21:30:58 Test Item Value Reference Range Interpretation Comments POC-GLUCOSE METER 86 mg/dL 70-110 : TESTED A T [facility] 6720 (BEAKER) (test code = [facility], 1538) 43830: Wildlife Biologist/Techni skip ID = [id number] for Suad Pedraza POCT-GLUCOSE [id number] 16:20:27 Test Item Value Reference Range Interpretation Comments POC-GLUCOSE METER 91 mg/dL 70-110 : TESTED A T [facility] 6720 (BEAKER) (test [facility] = [facility], 1538) 11736: Wildlife Biologist/Techni skip ID = [id number] for Amanda Crowder POCT-GLUCOSE [id number] 12:01:05 Test Item Value Reference Range Interpretation Comments POC-GLUCOSE METER 87 mg/dL 70-110 : TESTED A T [facility] 6720 (BEAKER) (test code = [facility], 1538) 36512: Wildlife Biologist/Techni skip ID = [id number] for Amanda Crowder POCT-GLUCOSE [id number] 08:41:45 Test Item Value Reference Range Interpretation Comments POC-GLUCOSE METER 90 mg/dL 70-110 : TESTED A T [facility] 6720 (BEAKER) (test code = [facility], 1538) 33319: Wildlife Biologist/Techni skip ID = [id number] for Amanda Crowder [id number] 07:22:20 Test Item Value Reference Range Interpretation Comments MAGNESIUM (BEAKER) (test code = 1.4 mg/dL 1.6-2.6 L 627) [id number] 07:22:20 Test Item Value Reference Range Interpretation Comments PHOSPHORUS (BEAKER) (test code = 3.5 mg/dL 2.3-4.7 604) BASIC METABOLIC [id number] 07:22:19 Test Item Value Reference Range Interpretation Comments SODIUM (BEAKER) 143 meq/L 136-145 (test code = 381) POTASSIUM 3.4 meq/L 3.5-5.1 L (BEAKER) (test code = 379) CHLORIDE (BEAKER) 107 meq/L 98-107 (test code = 382) CO2 (BEAKER) 24 meq/L 22-29 (test code = 355) BLOOD UREA 11 mg/dL 7-21 NITROGEN (BEAKER) (test code = 354) CREATININE 1.38 mg/dL 0.57-1.25 H (BEAKER) (test code = 358) GLUCOSE RANDOM 80 mg/dL 70-105 (BEAKER) (test code = 652) CALCIUM (BEAKER) 9.1 mg/dL 8.4-10.2 (test code = 697) EGFR (BEAKER) 50 Interpretatio n of eGFR (test code = [...] not appl icable for dialysis patien ts CBC W/PLT COUNT & AUTO [id number] 06:58:59 Test Item Value Reference Range Interpretation Comments WHITE BLOOD CELL COUNT (BEAKER) 8.6 K/ L 3.5-10.5 (test code = 775) RED BLOOD CELL COUNT (BEAKER) 3.14 M/ L 3.93-5.22 L (test code = 761) HEMOGLOBIN (BEAKER) (test code = 9.5 GM/DL 11.2-15.7 L 410) HEMATOCRIT (BEAKER) (test code = 28.5 % 34.1-44.9 L 411) MEAN CORPUSCULAR VOLUME (BEAKER) 91 fL 79-95 (test code = 753) MEAN CORPUSCULAR HEMOGLOBIN 30.3 pg 25.6-32.2 (BEAKER) (test code = 751) MEAN CORPUSCULAR HEMOGLOBIN CONC 33.3 GM/DL 32.2-35.5 (BEAKER) (test code = 752) RED CELL DISTRIBUTION WIDTH 18.2 % 11.7-14.4 H (BEAKER) (test code = 412) PLATELET COUNT (BEAKER) (test 199 K/CU MM 150-450 code = 756) MEAN PLATELET VOLUME (BEAKER) 9.5 fL 9.4-12.3 (test code = 754) NUCLEATED RED BLOOD CELLS 0 /100 WBC 0-0 (BEAKER) (test code = 413) NEUTROPHILS RELATIVE PERCENT 74 % (BEAKER) (test code = 429) LYMPHOCYTES RELATIVE PERCENT 16 % (BEAKER) (test code = 430) MONOCYTES RELATIVE PERCENT 6 % (BEAKER) (test code = 431) EOSINOPHILS RELATIVE PERCENT 4 % (BEAKER) (test code = 432) BASOPHILS RELATIVE PERCENT 0 % (BEAKER) (test code = 437) NEUTROPHILS ABSOLUTE COUNT 6.34 K/ L 1.56-6.13 H (BEAKER) (test code = 670) LYMPHOCYTES ABSOLUTE COUNT 1.33 K/ L 1.18-3.74 (BEAKER) (test code = 414) MONOCYTES ABSOLUTE COUNT (BEAKER) 0.51 K/ L 0.24-0.36 H (test code = 415) EOSINOPHILS ABSOLUTE COUNT 0.34 K/ L 0.04-0.36 (BEAKER) (test code = 416) BASOPHILS ABSOLUTE COUNT (BEAKER) 0.01 K/ L 0.01-0.08 (test code = 417) IMMATURE GRANULOCYTES-RELATIVE 0.20 % 0.00-1.00 PERCENT (BEAKER) (test code = 2801) POCT-GLUCOSE [id number] 23:49:34 Test Item Value Reference Range Interpretation Comments POC-GLUCOSE METER 96 mg/dL 70-110 : TESTED A T [facility] 6720 (BEAKER) (test code = [facility], [facility]) [address]: Wildlife Biologist/Techni skip ID = [id number] for Ariana kaminski Tere POCT-GLUCOSE [id number] 17:33:01 Test Item Value Reference Range Interpretation Comments POC-GLUCOSE METER 120 mg/dL 70-110 H : TESTED A T [facility] 6720 (BEAKER) (test code = [facility], 153) [address]: Wildlife Biologist/Techni skip ID = [id number] for Nichole Hair POCT-GLUCOSE [id number] 11:09:16 Test Item Value Reference Range Interpretation Comments POC-GLUCOSE METER 107 mg/dL 70-110 : TESTED A T [facility] 6720 (BEAKER) (test code = [facility], 153) [address]: Wildlife Biologist/Techni skip ID = [id number] for Nichole Hair BASIC METABOLIC [id number] 07:14:49 Test Item Value Reference Range Interpretation Comments SODIUM (BEAKER) 143 meq/L 136-145 (test code = 381) POTASSIUM 3.6 meq/L 3.5-5.1 (BEAKER) (test code = 379) CHLORIDE (BEAKER) 108 meq/L 98-107 H (test code = 382) CO2 (BEAKER) 22 meq/L 22-29 (test code = 355) BLOOD UREA 28 mg/dL 7-21 H NITROGEN (BEAKER) (test code = 354) CREATININE 4.75 mg/dL 0.57-1.25 H (BEAKER) (test code = 358) GLUCOSE RANDOM 98 mg/dL 70-105 (BEAKER) (test code = 652) CALCIUM (BEAKER) 8.7 mg/dL 8.4-10.2 (test code = 697) EGFR (BEAKER) 11 Interpretatio n of eGFR (test code = [...] not appl icable for dialysis patien ts Wildlife Biologist ID - [id number] 07:11:55 Test Item Value Reference Range Interpretation Comments MAGNESIUM (BEAKER) (test code = 1.6 mg/dL 1.6-2.6 627) Wildlife Biologist ID - [id number] 07:11:55 Test Item Value Reference Range Interpretation Comments PHOSPHORUS (BEAKER) (test code = 3.8 mg/dL 2.3-4.7 604) Wildlife Biologist ID - BSCBC W/PLT COUNT & AUTO [id number] 06:07:30 Test Item Value Reference Range Interpretation Comments WHITE BLOOD CELL COUNT 7.2 K/ L 3.5-10.5 (BEAKER) (test code = 775) RED BLOOD CELL COUNT 2.89 M/ L 3.93-5.22 L (BEAKER) (test code = 761) HEMOGLOBIN (BEAKER) 8.6 GM/DL 11.2-15.7 L (test code = 410) HEMATOCRIT (BEAKER) 25.8 % 34.1-44.9 L (test code = 411) MEAN CORPUSCULAR 89 fL 79-95 Discordant results VOLUME (BEAKER) (test compar ed to previous code = 753) results; clinic al correlation req uired MEAN CORPUSCULAR 29.8 pg 25.6-32.2 HEMOGLOBIN (BEAKER) (test code = 751) MEAN CORPUSCULAR 33.3 GM/DL 32.2-35.5 HEMOGLOBIN CONC (BEAKER) (test code = 752) RED CELL DISTRIBUTION 18.4 % 11.7-14.4 H WIDTH (BEAKER) (test code = 412) PLATELET COUNT 190 K/CU MM 150-450 (BEAKER) (test code = 756) MEAN PLATELET VOLUME 9.1 fL 9.4-12.3 L (BEAKER) (test code = 754) NUCLEATED RED BLOOD 0 /100 WBC 0-0 CELLS (BEAKER) (test code = 413) NEUTROPHILS RELATIVE 74 % PERCENT (BEAKER) (test code = 429) LYMPHOCYTES RELATIVE 18 % PERCENT (BEAKER) (test code = 430) MONOCYTES RELATIVE 6 % PERCENT (BEAKER) (test code = 431) EOSINOPHILS RELATIVE 1 % PERCENT (BEAKER) (test code = 432) BASOPHILS RELATIVE 0 % PERCENT (BEAKER) (test code = 437) NEUTROPHILS ABSOLUTE 5.31 K/ L 1.56-6.13 COUNT (BEAKER) (test code = 670) LYMPHOCYTES ABSOLUTE 1.33 K/ L 1.18-3.74 COUNT (BEAKER) (test code = 414) MONOCYTES ABSOLUTE 0.43 K/ L 0.24-0.36 H COUNT (BEAKER) (test code = 415) EOSINOPHILS ABSOLUTE 0.10 K/ L 0.04-0.36 COUNT (BEAKER) (test code = 416) BASOPHILS ABSOLUTE 0.01 K/ L 0.01-0.08 COUNT (BEAKER) (test code = 417) IMMATURE 0.60 % 0.00-1.00 GRANULOCYTES-RELATIVE PERCENT (BEAKER) (test code = 2801) BASIC METABOLIC [id number] 23:20:26 Test Item Value Reference Range Interpretation Comments SODIUM (BEAKER) 144 meq/L 136-145 (test code = 381) POTASSIUM 3.7 meq/L 3.5-5.1 (BEAKER) (test code = 379) CHLORIDE (BEAKER) 108 meq/L 98-107 H (test code = 382) CO2 (BEAKER) 19 meq/L 22-29 L (test code = 355) BLOOD UREA 37 mg/dL 7-21 H NITROGEN (BEAKER) (test code = 354) CREATININE 7.83 mg/dL 0.57-1.25 H (BEAKER) (test code = 358) GLUCOSE RANDOM 77 mg/dL 70-105 (BEAKER) (test code = 652) CALCIUM (BEAKER) 8.9 mg/dL 8.4-10.2 (test code = 697) EGFR (BEAKER) 6 Interpretatio n of eGFR (test code = [...] not appl icable for dialysis patien ts Wildlife Biologist ID - BSPOCT-GLUCOSE [id number] 19:11:02 Test Item Value Reference Range Interpretation Comments POC-GLUCOSE METER 87 mg/dL 70-110 : TESTED A T [facility] 6720 (ALEXANDER) (test code = [facility] [place], 1538) [address]: Wildlife Biologist/Techni skip ID = [id number] for Nichole Moore, NEPHROSTOMY, PERC, EXTERNAL [id number] 17:55:00Reason for exam:- >b/l PCN placement [facility]ame: YULIYA PHILIP : 1985 Sex: FFINAL REPORT PROCEDURE: Genitourinary catheter placement Procedural PersonnelAttending physician(s): Balta Jeronimo M.D.Fellow physician(s): [place] physician(s): NoneAdvanced practice provider(s): None Pre-procedure diagnosis: Bilateral hydronephrosisPost-procedure diagnosis: SameIndication: Urinary obstructionCatheter(s) placed because the previous catheter(s) became d islodged within 30 days of placement (QCDR): NoAdditional clinical history: None Complications: No immediate complications. IMPRESSION: Successful bilateral percutaneous nephrostomy catheter placement under image guidance. Plan: *Catheters set to drain by gravity.*Recommend q.12 hours flush with 10 ccnormal saline to maintain catheter patency.*Routine catheter exchange in three months. PROCEDURE SUMMARY- Target organ: Bilateral [place] kidneys- Image-guided placement of genitourinary catheter(s)- Additional procedure(s): None PROCEDURE DETAILS: Pre- procedureConsent: Informed consent for the procedure including risks, benefits and alternatives was obtained and time-out was performed prior to the procedure.Preparation: The site was prepared and draped using maximal sterile barrier technique including cutaneous antisepsis. Anesthesia/sedationLevel of anesthesia/sedation: Moderate sedation (conscious sedation)Anesthesia/sedation administered by: Independent trained observer under attending supervision with continuous monitoring of the patient\\X2019\\s level of consciousness and physiologic statusTotal intra-service sedation time (minutes): 20 Right genitourinary catheter placementLocal anesthesia was administered. A needle was advanced into the renal collecting system under ultrasound and fluoroscopy guidance. A wire was advanced, the tract was serially dilated and a nephrostomy tube was placed. Contrast injection was performed.Genitourinary catheter placed: 10.2 Bermudian multipurpose drainage catheter Findings: Pigtail positioned inthe renal pelvisExternal catheter securement: Non-absorbable suture Left genitourinary catheter placementLocal anesthesia was administered. A needle was advanced into the renal collecting system under ultrasound and fluoroscopy guidance. A wire was advanced, the tract was serially dilated and a nephrostomy tube was placed. Contrast injection was performed.Genitourinary catheter placed: 10.2 [place]ian multipurpose drainage catheter Findings: Pigtail positioned in the renal pelvisExternal catheter securement: Non-absorbable suture Additional genitourinary system interventionGenitourinary intervention: NoneLocation of intervention: Not applicableDevice used: Not applicableDescription of intervention: Not applicablePost-intervention findings: Not applicable ContrastContrast agent: Isovue 370Contrast volume (mL): 10 Radiation DoseFluoroscopy time (minutes): 2.4 Reference air kerma (mGy): 21.8 Kerma area product (uGy-cm2): 334.9 Additional DetailsAdditional description of procedure: NoneEquipment details: NoneSpecimens removed: None. A sample was not sent for analysis.Estimated blood loss (mL): Less than 10Standardized report: [email or web address] AttestationSigner name: Balta Mejia attest that I was present for the entire procedure. I reviewed the stored images and agree with the report as written. Signed: Balta Jeronimo MDReport Verified Date/Time: 07/22/2022 17:55:16 Reading Location: [address] Neuro Reading Room HCG, QUANTITATIVE, [id number] 16:00:13 Test Item Value Reference Range Interpretation Comments GONADOTROPIN, CHORIONIC (HCG) QUANT < mIU/mL 0-10 (BEAKER) (test code = 649) Non- Females: <10 mIU/mL Females: Gestation Age Reference Range(mIU/mL) 0.2-1 Week 5-50 1-2 Weeks 50-500 2-3 Weeks 100-5,000 3-4 Weeks 500-10,000 4-5 Weeks 1,000-50,000 5-6 Weeks 10,000-100,000 6-8 Weeks 15,000- 200,000 2-3 Months 10,000-100,000 Wildlife Biologist ID - BSBASI METABOLIC PANEL 2022-07-22 12:58:04 Test Item Value Reference Range Interpretation Comments SODIUM (BEAKER) 139 meq/L 136-145 (test code = 381) POTASSIUM 3.9 meq/L 3.5-5.1 (BEAKER) (test code = 379) CHLORIDE (BEAKER) 104 meq/L 98-107 (test code = 382) CO2 (BEAKER) 21 meq/L 22-29 L (test code = 355) BLOOD UREA 42 mg/dL 7-21 H NITROGEN (BEAKER) (test code = 354) CREATININE 11.61 mg/dL 0.57-1.25 H (BEAKER) (test code = 358) GLUCOSE RANDOM 85 mg/dL 70-105 (BEAKER) (test code = 652) CALCIUM (BEAKER) 8.0 mg/dL 8.4-10.2 L (test code = 697) EGFR (BEAKER) 4 Interpretatio n of eGFR (test code = [...] not appl icable for dialysis patien ts Wildlife Biologist ID - ADMINPOCT-GLUCOSE [id number] 12:28:22 Test Item Value Reference Range Interpretation Comments POC-GLUCOSE METER 92 mg/dL 70-110 : TESTED A T [facility] 6720 (BEAKER) (test code = [facility] [place] [facility], 1538) [address]: Wildlife Biologist/Techni skip ID = [id number] for Nichole Moore POCT-GLUCOSE [id number] 07:55:05 Test Item Value Reference Range Interpretation Comments POC-GLUCOSE METER 97 mg/dL 70-110 : TESTED A T [facility] 6720 (BEAKER) (test code = [facility] [place] [facility], 1538) [address]: Wildlife Biologist/Techni skip ID = [id number] for Nichole Moore POCT-GLUCOSE [id number] 06:39:17 Test Item Value Reference Range Interpretation Comments POC-GLUCOSE METER 90 mg/dL 70-110 : TESTED Ladonna Zhang [facility] 6720 (ALEXANDER) (test code = [facility] [place], 1538) [address]: Wildlife Biologist/Techni skip ID = [id number] for KARON WATSON CT, [id number] 05:29:00Unlisted Reason for Exam - Click Yes and Enter Reason Below->YesUnlisted Reason for Exam->ESRD; Hx Cervical CarcinomaProtocol Please Specify:->Standard ProtocolWill this procedure require oralcontrast?->No [facility]EName: YULIYA PHILIP : 1985 Sex: FFINAL REPORT EXAM/TECHNIQUE: CT of the abdomen and pelvis without IV contrast. 3D rendering was not performed. Dose modulation, iterative reconstruction, and/or weight based adjustment of the mA/kV was utilized to reduce the radiation dose to as low as reasonably achievable. INDICATION: History of cervical carcinoma with end-stage renal disease. COMPARISON: None. FINDINGS: Lower thorax: Cardiomegaly. Liver: Unremarkable. Biliary: The gallbladder and intrahepatic and extrahepatic biliary systems are unremarkable. Spleen: Unremarkable. Pancreas: Unremarkable. Adrenals: Unremarkable. Kidneys: Severe bilateral hydroureteronephrosis. Bowel: Normal appearance of the colon. Appendix is normal in appearance. The small bowel and stomach are normal in appearance without findings of obstruction. Lymph nodes: 10 mm left pelvic lymph node on series 1 image 76. Mesentery: Mesenteric edema is present with trace ascites. Pelvis: Soft tissue prominence with gas is present involving the cervix and lower ureter measuring approximately 5.8 x 5.7 cm. Air is present in the bladder with closeassociation of the cervix and bladder wall. Vessels: Unremarkable. Osseous: No acute osseous process. No suspicious osseous lesions. Impression: 1.Severe bilateral hydroureteronephrosis, likely secondary to obstruction caused by cervical mass.2.Cervical and lower ureteral necrotic mass, suboptimally evaluated with lack of IV contrast. There is possible fistulization to the bladder with trace intravesicular air.3.Mesenteric edema with trace ascites. Signed: Ean Jones MDReport Verified Date/Time: 07/22/2022 05:29:38 C METABOLIC [id number] 04:02:59 Test Item Value Reference Range Interpretation Comments SODIUM (BEAKER) 139 meq/L 136-145 (test code = 381) POTASSIUM 3.8 meq/L 3.5-5.1 (BEAKER) (test code = 379) CHLORIDE (BEAKER) 103 meq/L 98-107 (test code = 382) CO2 (BEAKER) 19 meq/L 22-29 L (test code = 355) BLOOD UREA 40 mg/dL 7-21 H NITROGEN (BEAKER) (test code = 354) CREATININE 10.67 mg/dL 0.57-1.25 H (BEAKER) (test code = 358) GLUCOSE RANDOM 85 mg/dL 70-105 (BEAKER) (test code = 652) CALCIUM (BEAKER) 8.2 mg/dL 8.4-10.2 L (test code = 697) EGFR (BEAKER) 4 Interpretatio n of eGFR (test code = [...] not appl icable for dialysis patien ts Wildlife Biologist ID - CLAUDIA [id number] 03:38:17 Test Item Value Reference Range Interpretation Comments PHOSPHORUS (BEAKER) (test code = 4.1 mg/dL 2.3-4.7 604) Wildlife Biologist ID - CLAUDIA [id number] 03:38:16 Test Item Value Reference Range Interpretation Comments MAGNESIUM (BEAKER) (test code = 1.7 mg/dL 1.6-2.6 627) Wildlife Biologist ID - CLAUDIA [id number] 03:33:49 Test Item Value Reference Range Interpretation Comments PARTIAL THROMBOPLASTIN TIME 33.4 seconds 22.5-36.0 (BEAKER) (test code = 760) PROTHROMBIN TIME/[id number] 03:33:07 Test Item Value Reference Range Interpretation Comments PROTIME (BEAKER) (test code = 14.9 seconds 11.9-14.2 H 759) INR (BEAKER) (test code = 370) 1.24 <=5.90 RECOMMENDED COUMADIN/WARFARIN INR THERAPY RANGESSTANDARD DOSE: 2.0 - 3.0 Includes: PROPHYLAXIS for venous thrombosis, systemic embolization; TREATMENT for venous thrombosis and/or pulmonary embolus.HIGH RISK: Target INR is 2.5-3.5 for patients with mechanical heart valves.CBC W/PLT COUNT & AUTO [id number] 03:23:16 Test Item Value Reference Range Interpretation Comments WHITE BLOOD CELL COUNT 10.8 K/ L 3.5-10.5 H (BEAKER) (test code = 775) RED BLOOD CELL COUNT 2.63 M/ L 3.93-5.22 L (BEAKER) (test code = 761) HEMOGLOBIN (BEAKER) 7.8 GM/DL 11.2-15.7 L (test code = 410) HEMATOCRIT (BEAKER) 22.1 % 34.1-44.9 L (test code = 411) MEAN CORPUSCULAR 84 fL 79-95 Discordant results VOLUME (BEAKER) (test compar ed to previous code = 753) results; clinic al correlation req uired MEAN CORPUSCULAR 29.7 pg 25.6-32.2 HEMOGLOBIN (BEAKER) (test code = 751) MEAN CORPUSCULAR 35.3 GM/DL 32.2-35.5 HEMOGLOBIN CONC (BEAKER) (test code = 752) RED CELL DISTRIBUTION 16.7 % 11.7-14.4 H WIDTH (BEAKER) (test code = 412) PLATELET COUNT 187 K/CU MM 150-450 (BEAKER) (test code = 756) MEAN PLATELET VOLUME 9.3 fL 9.4-12.3 L (BEAKER) (test code = 754) NUCLEATED RED BLOOD 0 /100 WBC 0-0 CELLS (BEAKER) (test code = 413) NEUTROPHILS RELATIVE 85 % PERCENT (BEAKER) (test code = 429) LYMPHOCYTES RELATIVE 11 % PERCENT (BEAKER) (test code = 430) MONOCYTES RELATIVE 3 % PERCENT (BEAKER) (test code = 431) EOSINOPHILS RELATIVE 0 % PERCENT (BEAKER) (test code = 432) BASOPHILS RELATIVE 0 % PERCENT (BEAKER) (test code = 437) NEUTROPHILS ABSOLUTE 9.19 K/ L 1.56-6.13 H COUNT (BEAKER) (test code = 670) LYMPHOCYTES ABSOLUTE 1.20 K/ L 1.18-3.74 COUNT (BEAKER) (test code = 414) MONOCYTES ABSOLUTE 0.33 K/ L 0.24-0.36 COUNT (BEAKER) (test code = 415) EOSINOPHILS ABSOLUTE 0.04 K/ L 0.04-0.36 COUNT (BEAKER) (test code = 416) BASOPHILS ABSOLUTE 0.01 K/ L 0.01-0.08 COUNT (BEAKER) (test code = 417) IMMATURE 0.50 % 0.00-1.00 GRANULOCYTES-RELATIVE PERCENT (BEAKER) (test code = 2801) RAD, CHEST, 1 VIEW, NON [id number] 23:55:00Reason for exam:->PULMONARY EDEMAShould this be performed at the bedside?->Yes [facility]EName: YULIYA PHILIP : 1985 Sex: FFINAL REPORT TECHNIQUE: Frontal view of the chest. INDICATION: PULMONARY EDEMA. COMPARISON: 07/21/2022 at 2:35 PM. FINDINGS: LINES/TUBES: Left IJ and right IJ central venous catheters remain unchanged. HEART AND MEDIASTINUM: Cardiomediastinal contour is stable. LUNGS: Slight increase in perihilar hazy airspace opacity. PLEURA: No pneumothorax. No significant pleural effusion. SOFT TISSUES AND BONES: Unremarkable. IMPRESSION:Slight increase in perihilar opacity which may be related to increasing edema or worsening aspiration/pneumonia. Follow-up to resolution is advised. Signed: Jessenia Casarez [facility] Verified Date/Time: 07/21/2022 23:55:02 POCT-GLUCOSE [id number] 22:09:32 Test Item Value Reference Range Interpretation Comments POC-GLUCOSE METER 90 mg/dL 70-110 : TESTED A T [facility] 6720 (BEAKER) (test code = [facility] [facility], 1538) [address]: Wildlife Biologist/Techni skip ID = [id number] for KARON WATSON HEMOGLOBIN AND [id number] 22:02:53 Test Item Value Reference Range Interpretation Comments HEMOGLOBIN (BEAKER) (test code = 7.9 GM/DL 11.2-15.7 L 410) HEMATOCRIT (BEAKER) (test code = 22.4 % 34.1-44.9 L 411) Wildlife Biologist ID - [id number] METABOLIC [id number] 20:36:21 Test Item Value Reference Range Interpretation Comments SODIUM (BEAKER) 139 meq/L 136-145 (test code = 381) POTASSIUM 3.4 meq/L 3.5-5.1 L (BEAKER) (test code = 379) CHLORIDE (BEAKER) 102 meq/L 98-107 (test code = 382) CO2 (BEAKER) 22 meq/L 22-29 (test code = 355) BLOOD UREA 48 mg/dL 7-21 H NITROGEN (BEAKER) (test code = 354) CREATININE 9.91 mg/dL 0.57-1.25 H (BEAKER) (test code = 358) GLUCOSE RANDOM 96 mg/dL 70-105 (BEAKER) (test code = 652) CALCIUM (BEAKER) 8.6 mg/dL 8.4-10.2 (test code = 697) EGFR (BEAKER) 5 Interpretatio n of eGFR (test code = [...] not appl icable for dialysis patien ts Wildlife Biologist ID - ADMINHEPATITIS B SURFACE [id number] 19:47:38 Test Item Value Reference Range Interpretation Comments HEPATITIS B SURFACE ANTIGEN (2) Nonreactive Nonreactive (BEAKER) (test code = 2585) Specimen is considered negative for HBsAg.HIGH SENSITIVITY TROPONIN [id number] 18:50:26 Test Item Value Reference Range Interpretation Comments HIGH SENSITIVITY TROPONIN I (test 181 pg/ml <=17 H code = 9816226) Wildlife Biologist ID - CHRISTIANO BThe TUNG NUT GROWER STAT High Sensitivity Troponin-I results should be used in conjunction with other diagnostic information such as ECG, clinical observations and information, and patient symptoms to aid in the diagnosis of NM.BASIC METABOLIC [id number] 18:47:16 Test Item Value Reference Range Interpretation Comments SODIUM (BEAKER) 136 meq/L 136-145 (test code = 381) POTASSIUM 6.1 meq/L 3.5-5.1 HH (BEAKER) (test code = 379) CHLORIDE (BEAKER) 104 meq/L 98-107 (test code = 382) CO2 (BEAKER) 8 meq/L 22-29 LL (test code = 355) BLOOD UREA 120 mg/dL 7-21 H NITROGEN (BEAKER) (test code = 354) CREATININE 21.61 mg/dL 0.57-1.25 H (BEAKER) (test code = 358) GLUCOSE RANDOM 97 mg/dL 70-105 (BEAKER) (test code = 652) CALCIUM (ALEXANDER) 9.3 mg/dL 8.4-10.2 (test code = 697) EGFR (ALEXANDER) 2 Interpretatio n of eGFR (test code = [...] not appl icable for dialysis patien ts Wildlife Biologist ID - CHRISTIANO BU/S, RENAL, [id number] 18:43:00Reason for exam:- >Bilateral Renal HydronephrosisShould this be performed at the bedside?->YesCHI [facility]A [facility]ICINEName: YULIYA PHILIP : 1985 Sex: FFINAL REPORT Ultrasound of the Kidneys Clinical History: Bilateral Renal Hydronephrosis COMPARISON: CT 06/08/2022 at 6:34 PM from [facility] per Bledsoe IV Discussion: Grayscale and color Doppler ultrasound examination of the kidneys and bladder was performed. Right kidney: 12.4 x 5.2 x 5.6 cm, with cortical thickness of 1.7 cm. Normal cortical echogenicity. No mass. No shado wing calculus. Moderate hydronephrosis. Left kidney: 11.2 x 5.6 x 4.6 cm, with cortical thickness of2.1 cm. Normal cortical echogenicity. No mass. No shadowing calculus. Moderate hydronephrosis. Limited doppler evaluation of bilateral main renal arteries and veins demonstrate patency. Bladder: Bladder is decompressed. Sludge Control Attendant reported a patient had a recent Bearden catheter removal. Few small echogenic foci with dirty shadowing within the anterior aspect of the bladder lumen suggestive of gas in the bladder lumen possibly related to recent instrumentation. 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 It is difficult to discern the posterior wall of the bladder on this examination. Impression: 1. Moderate bilateral hydronephrosis.2. Bladder is poorly distended secondary to recent Bearden discontinuation. 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 Posterior bladder wall between the bladder lumen in the vagina is not well seen on this examination. A CT of the abdomen and pelv is is pending at time of image interpretation. Signed: Jessenia Casarez MDReport Verified Date/Time: 07/21/2022 18:43:10 POCT-GLUCOSE [id number] 17:56:23 Test Item Value Reference Range Interpretation Comments POC-GLUCOSE METER 91 mg/dL 70-110 : TESTED A T [facility] 6720 (ALEXANDER) (test code = [place], 1538) [address]: Wildlife Biologist/Techni skip ID = [id number] for Quac h, [place] RAD, CHEST, 1 VIEW, NON [id number] 15:01:00Reason for exam:->CVC \\T\\ HD catheterShould this be performed at the bedside?->Yes [facility]: YULIYA PHILIP : 1985 Sex: FFINAL REPORT Chest, one view History: Insertion of central venous catheter Comparison: 06/09/2022 Findings:Interval development of mild central airspace disease, likely pulmonary edema. Normal size heart. No pleural effusion or pneumothorax. Satisfactory positions of bilateral internal jugular central venous catheters. Signed: Arturo Dumont MDReport Verified Date/Time: 07/22/19 15:01:34 Reading Location: [facility] [id number] Ortho Consult Reading Room [facility] METABOLIC [id number] 12:30:54 Test Item Value Reference Range Interpretation Comments SODIUM (BEAKER) 135 meq/L 136-145 L (test code = 381) POTASSIUM 6.6 meq/L 3.5-5.1 HH (BEAKER) (test code = 379) CHLORIDE (BEAKER) 104 meq/L 98-107 (test code = 382) CO2 (BEAKER) 8 meq/L 22-29 LL (test code = 355) BLOOD UREA 116 mg/dL 7-21 H NITROGEN (BEAKER) (test code = 354) CREATININE 23.69 mg/dL 0.57-1.25 H (BEAKER) (test code = 358) GLUCOSE RANDOM 145 mg/dL 70-105 H (BEAKER) (test code = 652) CALCIUM (BEAKER) 8.0 mg/dL 8.4-10.2 L (test code = 697) EGFR (BEAKER) 2 Interpretatio n of eGFR (test code = [...] not appl icable for dialysis patien ts Wildlife Biologist ID - CHRISTIANO BOperator ID - CHRISTIANO [id number] 12:22:57 Test Item Value Reference Range Interpretation Comments MAGNESIUM (BEAKER) (test code = 2.3 mg/dL 1.6-2.6 627) Wildlife Biologist ID - CHRISTIANO [id number] 12:22:57 Test Item Value Reference Range Interpretation Comments PHOSPHORUS (BEAKER) (test code = 6.9 mg/dL 2.3-4.7 H 604) Wildlife Biologist ID - CHRISTIANO BHEPATIC FUNCTION [id number] 12:22:57 Test Item Value Reference Range Interpretation Comments TOTAL PROTEIN (BEAKER) (test code = 5.7 gm/dL 6.0-8.3 L 770) ALBUMIN (BEAKER) (test code = 1145) 2.8 g/dL 3.5-5.0 L BILIRUBIN TOTAL (BEAKER) (test code 0.5 mg/dL 0.2-1.2 = 377) BILIRUBIN DIRECT (BEAKER) (test 0.4 mg/dL 0.1-0.5 code = 706) ALKALINE PHOSPHATASE (BEAKER) (test 74 U/L 40-150 code = 346) AST (SGOT) (BEAKER) (test code = 7 U/L 5-34 353) ALT (SGPT) (BEAKER) (test code = 8 U/L 6-55 347) Wildlife Biologist ID - CHRISTIANO BHIGH SENSITIVITY TROPONIN [id number] 12:21:15 Test Item Value Reference Range Interpretation Comments HIGH SENSITIVITY TROPONIN I (test 58 pg/ml <=17 H code = 1704183) Wildlife Biologist ID - CHRISTIANO BThe TUNG NUT GROWER STAT High Sensitivity Troponin-I results should be used in conjunction with other diagnostic information such as ECG, clinical observations and information, and patient symptoms to aid in the diagnosis of NM.CBC W/PLT COUNT & AUTO [id number] 12:14:08 Test Item Value Reference Range Interpretation Comments WHITE BLOOD CELL COUNT (BEAKER) 7.9 K/ L 3.5-10.5 (test code = 775) RED BLOOD CELL COUNT (BEAKER) 1.61 M/ L 3.93-5.22 L (test code = 761) HEMOGLOBIN (BEAKER) (test code = 4.8 GM/DL 11.2-15.7 LL 410) HEMATOCRIT (BEAKER) (test code = 14.5 % 34.1-44.9 L 411) MEAN CORPUSCULAR VOLUME (BEAKER) 90 fL 79-95 (test code = 753) MEAN CORPUSCULAR HEMOGLOBIN 29.8 pg 25.6-32.2 (BEAKER) (test code = 751) MEAN CORPUSCULAR HEMOGLOBIN CONC 33.1 GM/DL 32.2-35.5 (BEAKER) (test code = 752) RED CELL DISTRIBUTION WIDTH 19.0 % 11.7-14.4 H (BEAKER) (test code = 412) PLATELET COUNT (BEAKER) (test 154 K/CU MM 150-450 code = 756) MEAN PLATELET VOLUME (BEAKER) 9.3 fL 9.4-12.3 L (test code = 754) NUCLEATED RED BLOOD CELLS 0 /100 WBC 0-0 (BEAKER) (test code = 413) NEUTROPHILS RELATIVE PERCENT 91 % (BEAKER) (test code = 429) LYMPHOCYTES RELATIVE PERCENT 7 % (BEAKER) (test code = 430) MONOCYTES RELATIVE PERCENT 2 % (BEAKER) (test code = 431) EOSINOPHILS RELATIVE PERCENT 0 % (BEAKER) (test code = 432) BASOPHILS RELATIVE PERCENT 0 % (BEAKER) (test code = 437) NEUTROPHILS ABSOLUTE COUNT 7.20 K/ L 1.56-6.13 H (BEAKER) (test code = 670) LYMPHOCYTES ABSOLUTE COUNT 0.54 K/ L 1.18-3.74 L (BEAKER) (test code = 414) MONOCYTES ABSOLUTE COUNT (BEAKER) 0.12 K/ L 0.24-0.36 L (test code = 415) EOSINOPHILS ABSOLUTE COUNT 0.02 K/ L 0.04-0.36 L (BEAKER) (test code = 416) BASOPHILS ABSOLUTE COUNT (BEAKER) 0.00 K/ L 0.01-0.08 L (test code = 417) IMMATURE GRANULOCYTES-RELATIVE 0.50 % 0.00-1.00 PERCENT (BEAKER) (test code = 2801) [id number] 12:06:02 Test Item Value Reference Range Interpretation Comments FIBRINOGEN LEVEL (BEAKER) (test 459 mg/dl 225-434 H code = 658) PROTHROMBIN TIME/[id number] 12:05:45 Test Item Value Reference Range Interpretation Comments PROTIME (BEAKER) (test code = 16.0 seconds 11.9-14.2 H 759) INR (BEAKER) (test code = 370) 1.32 <=5.90 RECOMMENDED COUMADIN/WARFARIN INR THERAPY RANGESSTANDARD DOSE: 2.0 - 3.0 Includes: PROPHYLAXIS for venous thrombosis, systemic embolization; TREATMENT for venous thrombosis and/or pulmonary embolus.HIGH RISK: Target INR is 2.5-3.5 for patients with mechanical heart valves.LACTIC ACID, [id number] 12:04:00 Test Item Value Reference Range Interpretation Comments LACTATE BLOOD VENOUS (2) (DEVIKAAKER) 0.53 mmol/L 0.50-2.00 (test code = 2872) Wildlife Biologist ID - ADMINPOCT-GLUCOSE [id number] 12:02:56 Test Item Value Reference Range Interpretation Comments POC-GLUCOSE METER 91 mg/dL 70-110 : TESTED A T [facility] 6720 (ALEXANDER) (test code = [facility] Sadi [facility], 1538) [address]: Wildlife Biologist/Techni skip ID = [id number] for Louisa Castellon POCT-GLUCOSE [id number] 11:16:07 Test Item Value Reference Range Interpretation Comments POC-GLUCOSE METER 50 mg/dL 70-110 L : TESTED A T [facility] 6720 (AL[place]ANDER) (test code = [facility] Sadi [facility], 1538) [address]: Wildlife Biologist/Techni skip ID = [id number] for Louisa Castellon Drug Test, General Toxicology, [id number] 20:51:37 Test Item Value Reference Interpretation Comments Range Acetone(Quest) None Detected (test code = 3053) Methanol(Quest) None Detected (test code = 3054) Drug Test,Genrl see note The followin g compounds were Tox,U (test detected: [place] nine (Nicotine code = 6598402) Metabolite) Acetaminophen Gabapentin MEGx (Lidocaine Metabolite) Caf feine Methamphetamine Lidocaine Benzoylecgonine (Cocaine Metabolite) Mela kyleigh Diphenhydramine Midazolam Cyclobenzaprine For a list of compounds and l imits of detection go to:http://educa tion.[employer].Socialthing/faq /XDR341 ISOPROPANOL None Detected (test code = 0526482) ETHANOL (test None Detected Volatile Joseph it of Detection: code = 5897066) 5 mg/dL This test was developed and i ts analytical performancechar acteristics have been deter mined by [employer] [facility] [place], [place]. It hasnot been dany ared or approved by the U.S. Food and DrugAdministrat ion. This assay has been validated pursuantto the CLIA regulations and is used for clinicalpurpose s. NING (test code Performing Lab = NING) [address] [address] [facility] [place], [place] Shawn Drake MD, PhD [facility] Hospital[facility] [id number] 16:00:20 Test Item Value Reference Range Interpretation Comments CULTURE (BEAKER) (test No growth in 5 days code = 1095) The specimen volume collected for this blood culture was below the optimum (10 mL per bottle or 20 mL total). Use of lower volumes may adversely affect recovery and/or detection times of some organisms.BLOOD [id number] 16:00:20 Test Item Value Reference Range Interpretation Comments CULTURE (BEAKER) (test No growth in 5 days code = 1095) BASIC METABOLIC [id number] 03:45:36 Test Item Value Reference Range Interpretation [...] not appl icable for dialysis patien ts Wildlife Biologist ID - BSCBC (HEMOGRAM ONLY)2022-06-14 03:30:35 Test [...] (BEAKER) (test code = 413) BASIC METABOLIC [id number] 04:27:45 Test Item Value Reference Range Interpretation [...] not appl icable for dialysis patien ts Wildlife Biologist ID - MMCBC (HEMOGRAM ONLY)2022-06-13 04:07:18 Test [...] 0-0 (BEAKER) (test code = 413) PROTHROMBIN TIME/[id number] 10:03:21 Test Item Value Reference Range Interpretation Comments PROTIME (BEAKER) (test code = 15.4 seconds 11.9-14.2 H 759) INR (BEAKER) (test code = 370) 1.30 <=5.90 RECOMMENDED COUMADIN/WARFARIN INR THERAPY RANGESSTANDARD DOSE: 2.0 - 3.0 Includes: PROPHYLAXIS for venous thrombosis, systemic embolization; TREATMENT for venous thrombosis and/or pulmonary embolus.HIGH RISK: Target INR is 2.5-3.5 for patients with mechanical heart valves.ANG, EMBOLIZATION, EXTENSIVE - [id number] 09:57:00Reason for exam:->Embolization of bleeding cervical massIMELDA CASA COLINA HOSPITAL FOR REHAB MEDICINEName: YULIYA PHILIP : 1985 Sex: FFINAL REPORT [...] MDReport Verified Date/Time: 06/12/2022 09:57:59 Reading Location: [facility] Diagnostic Imaging Reading Room - [place] [address] CBC W/PLT COUNT & AUTO [id number] 09:56:52 Test Item Value Reference Range Interpretation [...] GRANULOCYTES-RELATIVE PERCENT (BEAKER) (test code = 2801) [id number] 09:25:56 Test Item Value Reference Range Interpretation Comments PHOSPHORUS (BEAKER) (test code = 3.4 mg/dL 2.3-4.7 604) Wildlife Biologist ID - CLAUDIA WHEPATIC FUNCTION [id number] 09:25:56 Test Item Value Reference Range Interpretation [...] code = 117 U/L 6-55 H 347) Wildlife Biologist ID - CLAUDIA WBASIC METABOLIC [id number] 09:25:55 Test Item Value Reference Range Interpretation [...] not appl icable for dialysis patien ts Wildlife Biologist ID - CLAUDIA [id number] 09:25:55 Test Item Value Reference Range Interpretation Comments MAGNESIUM (BEAKER) (test code = 2.0 mg/dL 1.6-2.6 627) Wildlife Biologist ID Gonzalez TAYLOR WPrepare Leuko-Red [id number] 23:54:00 Test Item Value Reference Range Interpretation Comments Unit ABO (test code = 0679122) A Neg UNIT NUMBER (test code = [id number] 934-0) Status (test code = 2534220) [place]_TIMEINCHART Blood Bank Product (test code PLATELETS = 2263) PRODUCT CODE (test code = V1785D31 933-2) [facility] Hospital[facility]uko-Red [id number] 23:54:00 Test Item Value Reference Range Interpretation Comments Unit ABO (test code = 4855763) A Neg UNIT NUMBER (test code = [id number] 934-0) Status (test code = 1972147) [place]_TIMEINCHART Blood Bank Product (test code PLATELETS = 2263) PRODUCT CODE (test code = S7092S15 933-2) [facility] HospitalBASIC METABOLIC [id number] 13:05:32 Test Item Value Reference Range Interpretation [...] not appl icable for dialysis patien ts Wildlife Biologist ID - MARCOCBC (HEMOGRAM ONLY)2022-06-11 12:42:48 Test [...] WBC 0-0 (test code = 413) PROTHROMBIN TIME/[id number] 12:39:37 Test Item Value Reference Range Interpretation Comments PROTIME (BEAKER) (test code = 15.6 seconds 11.9-14.2 H 759) INR (BEAKER) (test code = 370) 1.32 <=5.90 RECOMMENDED COUMADIN/WARFARIN INR THERAPY RANGESSTANDARD DOSE: 2.0 - 3.0 Includes: PROPHYLAXIS for venous thrombosis, systemic embolization; TREATMENT for venous thrombosis and/or pulmonary embolus.HIGH RISK: Target INR is 2.5-3.5 for patients with mechanical heart valves.CALCIUM, [id number] 12:30:04 Test Item Value Reference Range Interpretation Comments CALCIUM IONIZED (BEAKER) (test 1.08 mmol/L 1.12-1.27 L code = 698) PH, BLOOD (BEAKER) (test code = 7.44 1810) POC-Glucose [id number] 12:05:07 Test Item Value Reference Range Interpretation Comments POC-Glucose Meter (test 85 mg/dL 70-110 : TE STED AT [facility] code = 1538) [address] [place], [address]: Wildlife Biologist/Techni skip ID = [id number] for LLUVIA GROVES Lab Interpretation (test Normal code = 80731-0) [facility] HospitalPOC-Glucose [id number] 12:05:07 Test Item Value Reference Range Interpretation Comments POC-Glucose Meter (test 85 mg/dL 70-110 : TE STED AT [facility] code = 1538) [facility] [address]: Wildlife Biologist/Techni skip ID = [id number] for LLUVIA GROVES Lab Interpretation (test Normal code = 87570-0) [facility] [id number] 12:05:07 Test Item Value Reference Range Interpretation Comments POC-GLUCOSE METER 85 mg/dL 70-110 : TESTED A T [facility] 6720 ([facility]) (test code = [facility] Sadi [facility], 1538) [address]: Wildlife Biologist/Techni skip ID = [id number] for LLUVIA DANIEL EBV VIRAL [id number] 11:49:33 Test Item Value Reference Range Interpretation Comments EBV VIRAL LOAD - Negative or below See_Comment [Auto mated message] NEGATIVE (AKER) the linear range The sy stem which (test code = of the assay generated this 2559) (<500 IU /mL) result transmi tted reference range : <500 - >5,00 0,000 IU/mL. The refe rence range was not u sed to interpret th is result as normal/abnormal . POCT-GLUCOSE [id number] 06:43:06 Test Item Value Reference Range Interpretation Comments POC-GLUCOSE METER 82 mg/dL 70-110 : TESTED A T [facility] 6720 ([facility]) (test code = [facility], 1538) [address]: Wildlife Biologist/Techni skip ID = [id number] for Griselda Mayorga CALCIUM, [id number] 05:38:13 Test Item Value Reference Range Interpretation [...] CELLS (BEAKER) (test code = 413) PROTHROMBIN TIME/[id number] 05:28:51 Test Item Value Reference Range Interpretation Comments PROTIME (BEAKER) (test code = 16.1 seconds 11.9-14.2 H 759) INR (BEAKER) (test code = 370) 1.38 <=5.90 RECOMMENDED COUMADIN/WARFARIN INR THERAPY RANGESSTANDARD DOSE: 2.0 - 3.0 Includes: PROPHYLAXIS for venous thrombosis, systemic embolization; TREATMENT for venous thrombosis and/or pulmonary embolus.HIGH RISK: Target INR is 2.5-3.5 for patients with mechanical heart valves.[id number] 03:39:10 Test Item Value Reference Range Interpretation Comments PHOSPHORUS (BEAKER) (test code = 2.8 mg/dL 2.3-4.7 604) Wildlife Biologist ID - BSHEPATIC FUNCTION [id number] 03:39:09 Test Item Value Reference Range Interpretation [...] code = 116 U/L 6-55 H 347) Wildlife Biologist ID - CESNOLZMRVL9796-46-78 03:39:09 Test Item Value Reference Range Interpretation Comments MAGNESIUM (BEAKER) (test code = 1.6 mg/dL 1.6-2.6 627) Wildlife Biologist ID - BSPOCT-GLUCOSE [id number] 00:47:31 Test Item Value Reference Range Interpretation Comments POC-GLUCOSE METER 94 mg/dL 70-110 : TESTED A T [facility] 6720 (BEAKER) (test code = [place], 1538) [address]: Wildlife Biologist/Techni skip ID = [id number] for Pee Valladares Prepare Leuko-Red [id number] 23:54:00 Test Item Value Reference Range Interpretation Comments CROSSMATCH (test code = 2264) COMPATIBLE Unit ABO (test code = A Pos 6349495) UNIT NUMBER (test code = [id number] 934-0) Status (test code = 8895116) TX_TIMEINCHART Blood Bank Product (test code RED BLOOD CELLS = 2263) PRODUCT CODE (test code = P6112D77 933-2) [facility]Red [id number] 23:54:00 Test Item Value Reference Range Interpretation Comments CROSSMATCH (test code = 2264) COMPATIBLE Unit ABO (test code = A Pos 0596645) UNIT NUMBER (test code = [id number] 934-0) Status (test code = 2506803) TX_TIMEINCHART Blood Bank Product (test code RED BLOOD CELLS = 2263) PRODUCT CODE (test code = L6041I23 933-2) [facility] HospitalPROTHROMBIN TIME/[id number] 22:37:14 Test Item Value Reference Range Interpretation [...] mechanical heart valves.CBC W/PLT COUNT & AUTO [id number] 22:25:34 Test Item Value Reference Range Interpretation [...] PERCENT (BEAKER) (test code = 2801) CALCIUM, [id number] 22:25:05 Test Item Value Reference Range Interpretation Comments CALCIUM IONIZED (BEAKER) (test 1.07 mmol/L 1.12-1.27 L code = 698) PH, BLOOD (BEAKER) (test code = 7.48 1810) [id number] 17:57:12 Test Item Value Reference Range Interpretation Comments FIBRINOGEN LEVEL (BEAKER) (test 313 mg/dl 225-434 code = 658) PROTHROMBIN TIME/[id number] 17:44:31 Test Item Value Reference Range Interpretation [...] WBC 0-0 (test code = 413) POCT-GLUCOSE [id number] 17:30:09 Test Item Value Reference Range Interpretation Comments POC-GLUCOSE METER 109 mg/dL 70-110 : TESTED A T [facility] 6720 (BEAKER) (test code = [place], 1538) [address]: Wildlife Biologist/Techni skip ID = [id number] for Naina Austin CALCIUM, [id number] 17:28:59 Test Item Value Reference Range Interpretation Comments CALCIUM IONIZED (BEAKER) (test 1.07 mmol/L 1.12-1.27 L code = 698) PH, BLOOD (BEAKER) (test code = 7.48 1810) ANTI-NUCLEAR ANTIBODY (HAYDEN)2022-06-10 14:58:10 Test Item Value Reference Range Interpretation Comments ANTI-NUCLEAR ANTIBODY (HAYDEN) (BEAKER) Negative Negative (test code = 418) Test performed by IFA method.Test performed by IFA method.HEPATITIS C PCR, [id number] 14:01:32 Test Item Value Reference Range Interpretation Comments HCV RESULT COMPONENT HCV RNA not detected HCV RNA not detected (BEAKER) (test code = 2699) HEPATITIS B PCR, [id number] 13:33:52 Test Item Value Reference Range Interpretation Comments HBV RESULT COMPONENT HBV DNA not detected HBV DNA not detected (BEAKER) (test code = 2701) [id number] 12:37:58 Test Item Value Reference Range Interpretation Comments FIBRINOGEN LEVEL (BEAKER) (test 280 mg/dl 225-434 code = 658) PROTHROMBIN TIME/[id number] 12:37:40 Test Item Value Reference Range Interpretation Comments PROTIME (BEAKER) (test code = 17.8 seconds 11.9-14.2 H 759) INR (BEAKER) (test code = 370) 1.57 <=5.90 RECOMMENDED COUMADIN/WARFARIN INR THERAPY RANGESSTANDARD DOSE: 2.0 - 3.0 Includes: PROPHYLAXIS for venous thrombosis, systemic embolization; TREATMENT for venous thrombosis and/or pulmonary embolus.HIGH RISK: Target INR is 2.5-3.5 for patients with mechanical heart valves.CMV PCR, [id number] 12:25:04 Test Item Value Reference Range Interpretation [...] WBC 0-0 (test code = 413) CALCIUM, [id number] 12:09:13 Test Item Value Reference Range Interpretation Comments CALCIUM IONIZED (BEAKER) (test 1.05 mmol/L 1.12-1.27 L code = 698) PH, BLOOD (BEAKER) (test code = 7.46 1810) POCT-GLUCOSE [id number] 11:23:12 Test Item Value Reference Range Interpretation Comments POC-GLUCOSE METER 92 mg/dL 70-110 : TESTED A T [facility] 6720 (BEAKER) (test code = [place], [address]38) [address]: Wildlife Biologist/Techni skip ID = [id number] for ADRIEN C (V) ANNMARIE EBV ANTIBODY, [id number] 10:34:21 Test Item Value Reference Range Interpretation Comments ANDREW SUAREZ VIRAL CAPSID Negative Negative, Equivocal ANTIGEN IGM (BEAKER) (test code = 3418) Andrew Suarez Viral Capsid Antigen IgM Result Interpretation: </= 0.8 Al Negative 0.9-1.0 Al Equivocal >/= 1.1 Al PositiveVANCOMYCIN LEVEL, TROUGH 2022-06-10 09:41:44 Test Item Value Reference Range Interpretation Comments VANCOMYCIN TROUGH (BEAKER) (test 16.1 ug/mL 10.0-20.0 code = 522) Wildlife Biologist ID - ZQEXHZCORJKKBJG6180-42-97 06:41:29 Test Item Value Reference Range Interpretation Comments FIBRINOGEN LEVEL (BEAKER) (test 260 mg/dl 225-434 code = 658) PROTHROMBIN TIME/[id number] 06:41:06 Test Item Value Reference Range Interpretation [...] WBC 0-0 (test code = 413) CALCIUM, [id number] 06:04:52 Test Item Value Reference Range Interpretation Comments CALCIUM IONIZED (BEAKER) (test 1.12 mmol/L 1.12-1.27 code = 698) PH, BLOOD (BEAKER) (test code = 7.48 1810) POCT-GLUCOSE [id number] 05:43:21 Test Item Value Reference Range Interpretation Comments POC-GLUCOSE METER 91 mg/dL 70-110 : TESTED A T [facility] 6720 (BEAKER) (test code = [place], [address]) [address]: Wildlife Biologist/Techni skip ID = [id number] for MSIB I, MNCEDISI BASIC METABOLIC [id number] 03:27:46 Test Item Value Reference Range Interpretation [...] eGFR (test code = mL/min/1.73 values Stage D escription 1092) sq m Result G1 Jojo l [...] not appl icable for dialysis patien ts Wildlife Biologist ID - MARCOSpecimen slightly ictericHEPATIC FUNCTION [id number] 03:26:54 Test Item Value Reference Range Interpretation [...] code = 153 U/L 6-55 H 347) Wildlife Biologist ID - MARCOSpecimen slightly msvpjwcGLTHWKNMW9016-01-17 03:26:53 Test Item Value Reference Range Interpretation Comments MAGNESIUM (BEAKER) (test code = 1.6 mg/dL 1.6-2.6 627) Wildlife Biologist ID - IRWJHQQQHSBXTUJ8570-82-30 03:26:53 Test Item Value Reference Range Interpretation Comments PHOSPHORUS (BEAKER) (test code = 2.0 mg/dL 2.3-4.7 L 604) Wildlife Biologist ID - MARCOCALCIUM, [id number] 01:25:13 Test Item Value Reference Range Interpretation Comments CALCIUM IONIZED (BEAKER) (test 1.04 mmol/L 1.12-1.27 L code = 698) PH, BLOOD (BEAKER) (test code = 7.48 1810) [id number] 01:24:42 Test Item Value Reference Range Interpretation Comments FIBRINOGEN LEVEL (BEAKER) (test 257 mg/dl 225-434 code = 658) PROTHROMBIN TIME/[id number] 01:23:57 Test Item Value Reference Range Interpretation [...] CELLS (BEAKER) (test code = 413) Prepare [id number] 23:54:00 Test Item Value Reference Range Interpretation Comments Unit ABO (test code = A Pos 0097761) UNIT NUMBER (test code = [id number] 934-0) Status (test code = 3444120) [place]_TIMEINCHART Blood Bank Product (test code CRYOPRECIPITATE = 2263) PRODUCT CODE (test code = D7033Y90 933-2) [facility] [id number] 23:54:00 Test Item Value Reference Range Interpretation Comments Unit ABO (test code = 3390418) A Neg UNIT NUMBER (test code = [id number] 934-0) Status (test code = 3985746) TX_TIMEINCHART Blood Bank Product (test code FFP = 2263) PRODUCT CODE (test code = Z3775W45 933-2) [facility] [id number] 23:54:00 Test Item Value Reference Range Interpretation Comments Unit ABO (test code = A Pos 1510687) UNIT NUMBER (test code = [id number] 934-0) Status (test code = 3682731) TX_TIMEINCHART Blood Bank Product (test code CRYOPRECIPITATE = 2263) PRODUCT CODE (test code = R1447W32 933-2) [facility] [id number] 23:54:00 Test Item Value Reference Range Interpretation Comments Unit ABO (test code = 7647281) A Neg UNIT NUMBER (test code = [id number] 934-0) Status (test code = 3586363) TX_TIMEINCHART Blood Bank Product (test code FFP = 2263) PRODUCT CODE (test code = E8115W78 933-2) [facility] HospitalPO[facility]UCOSE [id number] 23:42:59 Test Item Value Reference Range Interpretation Comments POC-GLUCOSE METER 91 mg/dL 70-110 : [facility] ([facility]ER[facility] (test code = [place], [address]) [address]: Wildlife Biologist/Techni skip ID = [id number] for MSIB I, MNCEDISI CALCIUM, [id number] 18:10:25 Test Item Value Reference Range Interpretation Comments CALCIUM IONIZED (BEAKER) (test 1.11 mmol/L 1.12-1.27 L code = 698) PH, BLOOD (BEAKER) (test code = 7.48 1810) [id number] 17:48:32 Test Item Value Reference Range Interpretation Comments FIBRINOGEN LEVEL (BEAKER) (test 179 mg/dl 225-434 L code = 658) PROTHROMBIN TIME/[id number] 17:48:12 Test Item Value Reference Range Interpretation [...] WBC 0-0 (test code = 413) POCT-GLUCOSE [id number] 17:29:37 Test Item Value Reference Range Interpretation Comments POC-GLUCOSE METER 95 mg/dL 70-110 : TESTED A T [facility] 6720 (BEAKER) (test code = [facility], 1538) [address]: Wildlife Biologist/Techni skip ID = [id number] for Joyce Hilario [id number] 13:31:18 Test Item Value Reference Range Interpretation Comments PROCALCITONIN (BEAKER) (test code 18.38 ng/mL <0.05 HH = 3036) SEPSIS RISK (ng/mL)Low: 0.05-0.50Intermediate: 0.51-2.00High: >=2.01 [id number] 12:31:16 Test Item Value Reference Range Interpretation Comments FIBRINOGEN LEVEL (BEAKER) (test 178 mg/dl 225-434 L code = 658) POCT-GLUCOSE [id number] 12:29:44 Test Item Value Reference Range Interpretation Comments POC-GLUCOSE METER 116 mg/dL 70-110 H : TESTED A T [facility] 6720 (BEAKER) (test code [facility], = 1538) [address]: Wildlife Biologist/Techni skip ID = [id number] for Dheeraj derrickladonnaAmanda h CALCIUM, [id number] 12:27:55 Test Item Value Reference Range Interpretation Comments CALCIUM IONIZED (BEAKER) (test 1.10 mmol/L 1.12-1.27 L code = 698) PH, BLOOD (BEAKER) (test code = 7.48 1810) PROTHROMBIN TIME/[id number] 12:25:56 Test Item Value Reference Range Interpretation [...] 0-0 (test code = 413) BASIC METABOLIC [id number] 09:00:33 Test Item Value Reference Range Interpretation [...] not appl icable for dialysis patien ts Wildlife Biologist ID - Iam slightly fahadoiVVMFKJXQI3759-76-54 08:56:11 Test Item Value Reference Range Interpretation Comments MAGNESIUM (BEAKER) (test code = 2.0 mg/dL 1.6-2.6 627) Wildlife Biologist ID - MARCOLactic Acid, Aiecrpsu7626-44-50 08:52:09 Test Item Value Reference Range Interpretation Comments Lactate, Art (test code 0.9 mmol/L 0.5-2.2 = 2874) NING (test code = NING) Wildlife Biologist ID - Bayronn slightly icteric Lab Interpretation Normal (test code = 23192-3) [facility] HospitalLactic Acid, [id number] 08:52:09 Test Item Value Reference Range Interpretation Comments Lactate, Art (test code 0.9 mmol/L 0.5-2.2 = 2874) NING (test code = NING) Wildlife Biologist ID - Bayronn slightly icteric Lab Interpretation Normal (test code = 94405-7) [facility] HospitalLACTIC ACID, [id number] 08:52:09 Test Item Value Reference Range Interpretation Comments LACTATE BLOOD ARTERIAL (2) 0.9 mmol/L 0.5-2.2 (BEAKER) (test code = 2874) Wildlife Biologist ID - Iam slightly hdffdcaFVNFFSFPRL9237-07-41 08:37:49 Test Item Value Reference Range Interpretation Comments FIBRINOGEN LEVEL (BEAKER) (test 174 mg/dl 225-434 L code = 658) PROTHROMBIN TIME/[id number] 08:37:17 Test Item Value Reference Range Interpretation [...] H (test code = 413) Blood gas, [id number] 08:26:39 Test Item Value Reference Range Interpretation [...] 21 Lab Interpretation Abnormal (test code = 59262-9) [id number] 08:26:39 Test Item Value Reference Range Interpretation [...] 21 Lab Interpretation Abnormal (test code = 13060-3) [facility] [id number] 08:26:39 Test Item Value Reference Range Interpretation [...] (BEAKER) (test code = 1819) 21.0 CALCIUM, [id number] 08:25:08 Test Item Value Reference Range Interpretation Comments CALCIUM IONIZED (BEAKER) (test 1.13 mmol/L 1.12-1.27 code = 698) PH, BLOOD (BEAKER) (test code = 7.50 1810) RAD, CHEST, 1 VIEW, NON [id number] 07:18:00Reason for exam:->Retracted R IJ CVC. Please, re-evaluate placementShould this be performed at the bedside?->YesDAV[facility] : 1985 Sex: [...] surgical changes. Additional findings: None. Signed: Alejandra Schofieldeport Verified Date/Time: 06/09/2022 07:18:03 Urinalysis w/Microscopic + Reflex to [id number] 06:11:15 Test Item Value Reference Range Interpretation Comments Color, UA (test code Yellow = 5778-6) Clarity, UA (test Clear code = 5767-9) Specific Summers, UA 1.020 1.001-1.035 (test code = 5811-5) pH, UA (test code = 6.5 5.0-8.0 5803-2) Protein, UA (test Negative negative code = 03237-2) Glucose, UA (test Negative Negative code = 365) Ketones, UA (test Negative negative code = 2514-8) Bilirubin, UA (test Negative Negative code = 94843-3) Blood, UA (test code Small Negative A = 40531-2) Nitrite, UA (test Negative Negative code = 5802-4) Leukocytes, UA (test Negative Negative code = 5799-2) Urobilinogen, UA 2.0 (test code = 80756-8) RBC, UA (test code = 4 See_Comment [Autom ated 17560-4) message] The system which generated this result [...] . Bacteria, UA (test Rare code = 55248-9) Squam Epithel, UA See_Comment [Automate d (test code = 23698-1) messag e] The system which generated this result transmit erna reference range : /HPF. The reference range was not used to interpret this result as normal/abnormal . Hyaline Casts, UA 3 See_Comment [Automate d (test code = 67716-6) messag e] The system which generated this result transmit erna reference range : /LPF. The reference range was not used to interpret this result as normal/abnormal . Specimen Source (test code = 2795) NING (test code = NING) Wildlife Biologist ID - tech Lab Interpretation Abnormal (test code = 37536-4) [facility] Reflex to Culture 2022-06-09 06:11:15 Test Item Value Reference Range Interpretation Comments Color, UA (test code Yellow = 5778-6) Clarity, UA (test Clear code = 5767-9) Specific Summers, UA 1.020 1.001-1.035 (test code = 5811-5) pH, UA (test code = 6.5 5.0-8.0 5803-2) Protein, UA (test Negative negative code = 45241-5) Glucose, UA (test Negative Negative code = 365) Ketones, UA (test Negative negative code = 2514-8) Bilirubin, UA (test Negative Negative code = 48880-2) Blood, UA (test code Small Negative A = 75900-6) Nitrite, UA (test Negative Negative code = 5802-4) Leukocytes, UA (test Negative Negative code = 5799-2) Urobilinogen, UA 2.0 (test code = 84453-7) RBC, UA (test code = 4 See_Comment [Autom ated 06765-7) message] The system which generated this result [...] . Bacteria, UA (test Rare code = 96799-9) Squam Epithel, UA See_Comment [Automate d (test code = 71706-8) messag e] The system which generated this result transmit erna reference range : /HPF. The reference range was not used to interpret this result as normal/abnormal . Hyaline Casts, UA 3 See_Comment [Automate d (test code = 97929-7) messag e] The system which generated this result transmit erna reference range : /LPF. The reference range was not used to interpret this result as normal/abnormal . Specimen Source (test code = 2795) NING (test code = NING) Wildlife Biologist ID - tech Lab Interpretation Abnormal (test code = 25367-0) [facility]FLEX URINE [id number] 06:11:15 Test Item Value Reference Range Interpretation [...] /LPF 514) SOURCE(BEAKER) (test code = 2795) Wildlife Biologist ID - techRapid drug screen, [id number] 05:42:00 Test Item Value Reference Range Interpretation Comments Barbiturate Screen Negative Negative (test code = 97219-5) Benzodiazepine Screen Positive Negative A (test code = 59269-3) Cocaine (Metab.) Positive Negative A Screen (test code = 3397-7) Methadone Screen (test Negative Negative code = 63184-2) Opiate Screen (test Negative Negative code = 95121-0) Cannabinoid Screen Negative Negative (test code = 75246-5) Amph/Methamph Screen Negative Negative (test code = 23299-8) Phencyclidine Screen Negative Negative (test code = 39560-1) pH, UA (test code = 6.5 5.0-8.0 5803-2) NING (test code = NING) DRUG CUTOFF CONC.Cocaine 300 ng/mL Cannabinoid 50 ng/mLBenzodiazepine 200 ng/mLBarbiturate 200 ng/mLPhencyclidine 25 ng/mLOpiate 300 ng/mLMethadone 300 ng/mLAmphetamine/ 1000 ng/mL Methamphetamine This assay provides an unconfirmed qualitative test result for the clinical management of patients in emergency situations. Chain of custody not maintained. Some uxud-vcg-eabutcb medications, as well as adulterants, may cause inaccurate results. Clinical correlation should be applied. A more comprehensive drug screen or confirmation of a detected drug may be performed upon request.Wildlife Biologist ID - BS Lab Interpretation Abnormal (test code = 15732-5) [facility], [id number] 05:42:00 Test Item Value Reference Range Interpretation Comments Barbiturate Screen Negative Negative (test code = 40610-8) Benzodiazepine Screen Positive Negative A (test code = 99949-4) Cocaine (Metab.) Positive Negative A Screen (test code = 3397-7) Methadone Screen (test Negative Negative code = 19192-8) Opiate Screen (test Negative Negative code = 89169-1) Cannabinoid Screen Negative Negative (test code = 27530-4) Amph/Methamph Screen Negative Negative (test code = 61593-6) Phencyclidine Screen Negative Negative (test code = 06842-4) pH, UA (test code = 6.5 5.0-8.0 5803-2) NING (test code = NING) DRUG CUTOFF CONC.Cocaine 300 ng/mL Cannabinoid 50 ng/mLBenzodiazepine 200 ng/mLBarbiturate 200 ng/mLPhencyclidine 25 ng/mLOpiate 300 ng/mLMethadone 300 ng/mLAmphetamine/ 1000 ng/mL Methamphetamine This assay provides an unconfirmed qualitative test result for the clinical management of patients in emergency situations. Chain of custody not maintained. Some bcpr-wow-vcjjmiz medications, as well as adulterants, may cause inaccurate results. Clinical correlation should be applied. A more comprehensive drug screen or confirmation of a detected drug may be performed upon request.Wildlife Biologist ID - BS Lab Interpretation Abnormal (test code = 31141-4) [facility]EN, [id number] 05:42:00 Test Item Value Reference Range Interpretation [...] situations. Chain of custody not maintained. Some oeyx-wxj-aixbdit medications, as well as adulterants, may cause inaccurate results. Clinical correlation should be applied. A more comprehensivedrug screen or confirmation of a detected drug may be performed upon request.Wildlife Biologist ID - BSBLOOD GAS, [id number] 05:16:29 Test Item Value Reference Range Interpretation [...] (BEAKER) (test code = 1819) 21.0 CALCIUM, [id number] 05:14:38 Test Item Value Reference Range Interpretation Comments CALCIUM IONIZED (BEAKER) (test 1.21 mmol/L 1.12-1.27 code = 698) PH, BLOOD (BEAKER) (test code = 7.47 1810) BASIC METABOLIC [id number] 05:08:20 Test Item Value Reference Range Interpretation [...] eGFR (test code = mL/min/1.73 values Stage D escription 1092) sq m Result G1 Jojo l [...] not appl icable for dialysis patien ts Wildlife Biologist ID - MARCOSpecimen slightly ictericHEPATIC FUNCTION [id number] 05:08:20 Test Item Value Reference Range Interpretation [...] code = 121 U/L 6-55 H 347) Wildlife Biologist ID - MARCOSpecimen slightly vbzzqslFCMDALQFB0744-78-73 05:08:19 Test Item Value Reference Range Interpretation Comments MAGNESIUM (BEAKER) (test code = 2.4 mg/dL 1.6-2.6 627) Wildlife Biologist ID - LZVYMUNPPWXHPPM3871-44-19 05:08:19 Test Item Value Reference Range Interpretation Comments PHOSPHORUS (BEAKER) (test code = 2.8 mg/dL 2.3-4.7 604) Wildlife Biologist ID - MARCOTHROMBOELASTOGRAPH (TEG)2022-06-09 05:00:32 Test Item [...] % 0.0-5.0 code = 1414) LACTIC ACID, [id number] 04:54:00 Test Item Value Reference Range Interpretation Comments LACTATE BLOOD ARTERIAL (2) 0.9 mmol/L 0.5-2.2 (BEAKER) (test code = 2874) Wildlife Biologist ID - BSSpecimen slightly rsbfebvUZZYYYUYKH1401-53-07 04:50:13 Test Item Value Reference Range Interpretation Comments FIBRINOGEN LEVEL (BEAKER) (test 167 mg/dl 225-434 L code = 658) PROTHROMBIN TIME/[id number] 04:49:50 Test Item Value Reference Range Interpretation [...] WBC 0-0 (test code = 413) VITAMIN [id number] 02:35:55 Test Item Value Reference Range Interpretation Comments VITAMIN B12 (BEAKER) (test code = > pg/mL 213-816 H 774) Wildlife Biologist ID - MARCOBASIC METABOLIC [id number] 01:39:15 Test Item Value Reference Range Interpretation [...] not appl icable for dialysis patien ts Wildlife Biologist ID - BSSpecimen slightly [id number] 01:23:08 Test Item Value Reference Range Interpretation Comments MAGNESIUM (BEAKER) (test code = 1.5 mg/dL 1.6-2.6 L 627) Wildlife Biologist ID - BSLACTIC ACID, [id number] 01:17:49 Test Item Value Reference Range Interpretation Comments LACTATE BLOOD ARTERIAL (2) 2.3 mmol/L 0.5-2.2 H (BEAKER) (test code = 2874) Wildlife Biologist ID - BSSpecimen slightly icteric(CELLAVISION MANUAL DIFF)2022-06-09 01:10:13 Test Item [...] CONCENTRATION Decreased (CELLAVISION)(BEAKER) (test code = 3438) Wildlife Biologist ID - Carine Bobo comments: Slide comments:CBC W/PLT COUNT & AUTO [id number] 01:10:12 Test Item Value Reference Range Interpretation [...] H CELLS (BEAKER) (test code = 413) [id number] 01:04:07 Test Item Value Reference Range Interpretation Comments FIBRINOGEN LEVEL (BEAKER) (test 151 mg/dl 225-434 L code = 658) CALCIUM, [id number] 00:40:04 Test Item Value Reference Range Interpretation Comments CALCIUM IONIZED (BEAKER) (test 1.06 mmol/L 1.12-1.27 L code = 698) PH, BLOOD (BEAKER) (test code = 7.45 1810) BLOOD GAS, [id number] 00:39:58 Test Item Value Reference Range Interpretation [...] 1819) 21.0 RAD, CHEST, 1 VIEW, NON [id number] 00:26:00Reason for exam:->Left IJ central line placementShould this be performed at the bedside?->Yes [facility] : 1985 Sex: FFINAL [...] left IJ line placement. Signed: Vernon Marinelli [facility] Verified Date/Time: 06/09/2022 00:26:48 BLOOD GAS, [id number] 22:28:00 Test Item Value Reference Range Interpretation [...] (test 1.0 % 0.0-5.0 code = 1414) [id number] 21:35:45 Test Item Value Reference Range Interpretation Comments FIBRINOGEN LEVEL (BEAKER) (test 149 mg/dl 225-434 L code = 658) [id number] 21:28:48 Test Item Value Reference Range Interpretation Comments FERRITIN (BEAKER) (test code = 223.31 ng/mL 5.00-275.00 361) Wildlife Biologist ID - MMLACTIC ACID, [id number] 21:17:43 Test Item Value Reference Range Interpretation Comments LACTATE BLOOD ARTERIAL (2) 9.0 mmol/L 0.5-2.2 HH (BEAKER) (test code = 2874) Wildlife Biologist ID - [id number] 21:17:07 Test Item Value Reference Range Interpretation Comments PHOSPHORUS (BEAKER) (test code = 3.8 mg/dL 2.3-4.7 604) Wildlife Biologist ID - [id number] 21:17:06 Test Item Value Reference Range Interpretation Comments MAGNESIUM (BEAKER) (test code = 1.9 mg/dL 1.6-2.6 627) Wildlife Biologist ID - BSBLOOD GAS, [id number] 21:12:20 Test Item Value Reference Range Interpretation [...] (test code = 1819) 21.0 BASIC METABOLIC [id number] 21:11:38 Test Item Value Reference Range Interpretation [...] not appl icable for dialysis patien ts Wildlife Biologist ID - [id number] 21:10:06 Test Item Value Reference Range Interpretation Comments PARTIAL THROMBOPLASTIN TIME 32.3 seconds 22.5-36.0 (BEAKER) (test code = 760) PROTHROMBIN TIME/[id number] 21:09:27 Test Item Value Reference Range Interpretation Comments PROTIME (BEAKER) (test code = 23.4 seconds 11.9-14.2 H 759) INR (BEAKER) (test code = 370) 2.23 <=5.90 RECOMMENDED COUMADIN/WARFARIN INR THERAPY RANGESSTANDARD DOSE: 2.0 - 3.0 Includes: PROPHYLAXIS for venous thrombosis, systemic embolization; TREATMENT for venous thrombosis and/or pulmonary embolus.HIGH RISK: Target INR is 2.5-3.5 for patients with mechanical heart valves.CALCIUM, [id number] 21:01:33 Test Item Value Reference Range Interpretation Comments CALCIUM IONIZED (BEAKER) (test 0.93 mmol/L 1.12-1.27 L code = 698) PH, BLOOD (BEAKER) (test code = 7.48 1810) LACTATE DEHYDROGENASE (LDH)2022-06-08 20:52:07 Test Item Value Reference Range Interpretation Comments LACTATE DEHYDROGENASE 300 U/L 125-220 H Specim en slightly (BEAKER) (test code = hemoly zed 635) Wildlife Biologist ID - BSIRON, TIBC, % SAT. (WITHOUT FERRITIN)2022-06-08 20:50:25 Test Item Value Reference Range Interpretation Comments IRON (BEAKER) (test code = 547) 120.0 ug/dL 40.0-160.0 TOTAL IRON BINDING CAPACITY 121 ug/dL 250-450 L (BEAKER) (test code = 769) IRON % SATURATION (2) (BEAKER) 99 % 20-55 H (test code = 2590) Wildlife Biologist ID - BSRETICULOCYTE [id number] 20:36:25 Test Item Value Reference Range Interpretation Comments RETICULOCYTE COUNT PCT (BEAKER) (test 1.3 % 0.5-1.7 code = 575) Wildlife Biologist ID - [id number] ANTIGEN WITH HIV-1/2 [id number] 20:11:17 Test Item Value Reference Range Interpretation [...] 4.1 % 0.0-5.0 code = 1414) Screen, [id number] 18:29:14 Test Item Value Reference Range Interpretation Comments Preg Test, Ur (test code = 2-1) Negative Negative Lab Interpretation (test code = Normal 60987-8) [facility] HospitalPregnancy Screen, [id number] 18:29:14 Test Item Value Reference Range Interpretation Comments Preg Test, Ur (test code = 2-1) Negative Negative Lab Interpretation (test code = Normal 57237-1) [facility] HospitalPREANCY SCREEN, [id number] 18:29:14 Test Item Value Reference Range Interpretation Comments TEST URINE (BEAKER) (test Negative Negative code = 583) BASIC METABOLIC [id number] 18:17:25 Test Item Value Reference Range Interpretation [...] not appl icable for dialysis patien ts Wildlife Biologist ID - BSCALCIUM, [id number] 18:05:08 Test Item Value Reference Range Interpretation Comments CALCIUM IONIZED (BEAKER) (test 0.71 mmol/L 1.12-1.27 LL code = 698) PH, BLOOD (BEAKER) (test code = 7.46 1810) CBC W/PLT COUNT & AUTO [id number] 18:04:39 Test Item Value Reference Range Interpretation [...] PERCENT (BEAKER) (test code = 2801) T4, [id number] 18:01:04 Test Item Value Reference Range Interpretation Comments FREE T4 (BEAKER) (test code = 655) 1.36 ng/dL 0.70-1.48 Wildlife Biologist ID - MMLACTIC ACID, [id number] 17:58:08 Test Item Value Reference Range Interpretation Comments LACTATE BLOOD 1.7 mmol/L 0.5-2.2 Specimen sligh tly ARTERIAL (2) (BEAKER) hemoly zed (test code = 2874) Wildlife Biologist ID - NZG-[id number] 17:55:47 Test Item Value Reference Range Interpretation [...] exclusion of thrombosis is within 95-100% range. [id number] 17:53:22 Test Item Value Reference Range Interpretation [...] is 2.5-3.5 for patients with mechanical heart valves.[id number] 17:53:09 Test Item Value Reference Range Interpretation Comments FIBRINOGEN LEVEL (BEAKER) (test 243 mg/dl 225-434 code = 658) POC [id number] 17:40:15 Test Item Value Reference Range Interpretation Comments POC-Glucose (test code = 187 mg/dL 70-110 H : T ESTED AT [facility] 1855) [address] [facility], [address]: Wildlife Biologist/Techni skip ID = [id number] for ANGELINA MOURA Lab Interpretation (test Abnormal code = 66493-3) [facility] [id number] 17:40:15 Test Item Value Reference Range Interpretation Comments POC-Glucose (test code = 187 mg/dL 70-110 H : T ESTED AT [facility] 1855) [address] [facility], [address]: Wildlife Biologist/Techni skip ID = [id number] for ANGELINA MOURA Lab Interpretation (test Abnormal code = 85814-2) [facility] HospitalPOCT-[id number] 17:40:15 Test Item Value Reference Range Interpretation Comments POC-GLUCOSE (ALEXANDER) 187 mg/dL 70-110 H : TESTE D AT [facility] 6720 (test code = 1855) [facility], [address]: Wildlife Biologist/Techni skip ID = [id number] for ANGELINA MOURA [id number] 17:40:14 Test Item Value Reference Range Interpretation Comments POC-Hemoglobin (test code 11.9 g/dL 12.0-15.0 L : TESTED AT [facility] = 1856) [address] [place] [address], [address]: Wildlife Biologist/Techni skip ID = [id number] for ANGELINA MOURA Lab Interpretation (test Abnormal code = 12353-6) [facility] HospitalZjcnufJSLX-CUAWSCEVGX7880-18-01 17:40:14 Test Item Value Reference Range Interpretation Comments POC-Hematocrit (test code 35 % 36-45 L : = 1857) Wildlife Biologist/Techni skip ID = [id number] for ANGELINA MOURA Lab Interpretation (test Abnormal code = 25059-3) [facility] HospitalEoumruANIH-[id number] 17:40:14 Test Item Value Reference Range Interpretation Comments POC-Hemoglobin (test code 11.9 g/dL 12.0-15.0 L : TESTED AT [facility] = 1856) [address] [facility], [address]: Wildlife Biologist/Techni skip ID = [id number] for ANGELINA MOURA Lab Interpretation (test Abnormal code = 92579-9) [facility] HospitalHmztrjIJTZ-[id number] 17:40:14 Test Item Value Reference Range Interpretation Comments POC-Hematocrit (test code 35 % 36-45 L : = 1857) Wildlife Biologist/Techni skip ID = [id number] for ANGELINA MOURA Lab Interpretation (test Abnormal code = 79776-7) [facility] HospitalJnrduwPOFN-YEXROXMCVV2667-88-01 17:40:14 Test Item Value Reference Range Interpretation Comments POC-HEMOGLOBIN 11.9 g/dL 12.0-15.0 L : TESTED AT [facility] 6720 (BEAKER) (test code [facility], = 1856) [address]: Wildlife Biologist/Techni skip ID = [id number] for ANGELINA MOURA XEHT-[id number] 17:40:14 Test Item Value Reference Range Interpretation Comments POC-HEMATOCRIT 35 % 36-45 L : Wildlife Biologist/Te chnician ID = (BEAKER) (test code = 031692 for ANGELINA MOURA 1857) POC-Blood gases, [id number] 17:40:13 Test Item Value Reference Range Interpretation [...] tomated message] code = 1838) The system [employer] h generated this result transmit erna reference range : 80.0 - 90.0 mm Hg. The reference r yolanda was not used to interpret this result as normal/abnormal . SO2, Arterial-POC (test 98.0 % 96.0-97.0 H code = 1839) HCO3, Arterilal-POC 18.2 meq/L 21.0-29.0 L (test code = 1840) BE, Arterial-POC (test -6.0 meq/L -2.0-3.0 L : ZOILA ERNA AT [facility] code = 1841) [address] [facility], [address]: Wildlife Biologist/Techni skip ID = [id number] for ANGELINA MOURA Lab Interpretation Abnormal (test code = 17116-7) [facility]-Zolbdyndl2888-08-47 17:40:13 Test Item Value Reference Range Interpretation Comments POC-Potassium (test code 3.9 meq/L 3.6-5.5 : T ESTED AT [facility] = 1540) [address] [facility], [address]: Wildlife Biologist/Techni skip ID = [id number] for ANGELINA MOURA Lab Interpretation (test Normal code = 39876-3) [facility]-[id number] 17:40:13 Test Item Value Reference Range Interpretation Comments POC-Sodium (test code = 134 meq/L 135-148 L : TE STED AT [facility] 1542) [address] [facility], [address]: Wildlife Biologist/Techni skip ID = [id number] for ANGELINA MOURA Lab Interpretation (test Abnormal code = 44499-6) [facility]-Blood gases, [id number] 17:40:13 Test Item Value Reference Range Interpretation [...] tomated message] code = 1838) The system [employer] generated this result transmit erna reference range : 80.0 - 90.0 mm Hg. The reference r yolanda was not used to interpret this result as normal/abnormal . SO2, Arterial-POC (test 98.0 % 96.0-97.0 H code = 1839) HCO3, Arterilal-POC 18.2 meq/L 21.0-29.0 L (test code = 1840) BE, Arterial-POC (test -6.0 meq/L -2.0-3.0 L : ZOILA ERNA AT [facility] code = 1841) [address] [place] [address], [address]: Wildlife Biologist/Techni skip ID = [id number] for ANGELINA MOURA Lab Interpretation Abnormal (test code = 93496-6) [facility]-Znqkngefx4601-33-37 17:40:13 Test Item Value Reference Range Interpretation Comments POC-Potassium (test code 3.9 meq/L 3.6-5.5 : T ESTED AT [facility] = 1540) [address] [place] [address], [address]: Wildlife Biologist/Techni skip ID = [id number] for ANGELINA MOURA Lab Interpretation (test Normal code = 45868-7) [facility]-Czkhdu0113-25-46 17:40:13 Test Item Value Reference Range Interpretation Comments POC-Sodium (test code = 134 meq/L 135-148 L : TE STED AT [facility] 1542) [address] [place] [address], [address]: Wildlife Biologist/Techni skip ID = [id number] for ANGELINA MOURA Lab Interpretation (test Abnormal code = 75397-3) [facility]-BLOOD GASES, [id number] 17:40:13 Test Item Value Reference Range Interpretation [...] -6.0 meq/L -2.0-3.0 L : TESTED AT [facility] 6720 ARTERIAL-POC [facility], (BEAKER) (test [address]: code = 1841) Wildlife Biologist/Techni skip ID = [id number] for ANGELINA MOURA [id number] 17:40:13 Test Item Value Reference Range Interpretation Comments POC-SODIUM (BEAKER) 134 meq/L 135-148 L : TESTED AT [facility] 67 (test code = 1542) [facility], [address]: Wildlife Biologist/Techni skip ID = [id number] for ANGELINA MOURA VVUQ-[id number] 17:40:13 Test Item Value Reference Range Interpretation Comments POC-POTASSIUM 3.9 meq/L 3.6-5.5 : TESTED AT [facility] 67 (BEAKER) (test code [facility], = 1540) [address]: Wildlife Biologist/Techni skip ID = [id number] for ANGELINA MOURA U/S, DUPLEX, [id number] 17:35:00Reason for exam:->please evaluate hepatic vasculature [facility] : 1985 Sex: FFINAL REPORT Real-time Color [...] Rubio Verified Date/Time: 06/08/2022 17:35:07 Reading Location: [facility] C013Y CT Body Reading Room HEPATITIS B SURFACE [id number] 17:32:15 Test Item Value Reference Range Interpretation Comments HEPATITIS B SURFACE ANTIBODY < mIU/mL <8.0 (BEAKER) (test code = 647) Wildlife Biologist ID - BSHEPATITIS B CORE ANTIBODY, [id number] 17:27:01 Test Item Value Reference Range Interpretation Comments HEPATITIS B CORE TOTAL ANTIBODY Nonreactive Nonreactive (BEAKER) (test code = 497) Wildlife Biologist ID - BSHEPATITIS A ANTIBODY, [id number] 17:27:01 Test Item Value Reference Range Interpretation Comments HEPATITIS A IGG ANTIBODY (BEAKER) Nonreactive Nonreactive (test code = 2797) Wildlife Biologist ID - BSHEPATITIS A ANTIBODY, [id number] 17:27:00 Test Item Value Reference Range Interpretation Comments HEPATITIS A IGM ANTIBODY (BEAKER) Nonreactive Nonreactive (test code = 498) Wildlife Biologist ID - [id number] 17:16:00 Test Item Value Reference Range Interpretation Comments POTASSIUM (BEAKER) (test code = 3.0 meq/L 3.5-5.1 L 379) Wildlife Biologist ID - [id number] 17:16:00 Test Item Value Reference Range Interpretation Comments SODIUM (BEAKER) (test code = 381) 134 meq/L 136-145 L Wildlife Biologist ID - [id number] 17:16:00 Test Item Value Reference Range Interpretation Comments GLUCOSE RANDOM (BEAKER) (test code 107 mg/dL 70-105 H = 652) Wildlife Biologist ID - MMSALICYLATE [id number] 17:04:01 Test Item Value Reference Range Interpretation Comments SALICYLATE LEVEL (BEAKER) (test code < mg/dL 15.0-30.0 L = 764) Therapeutic Range: 15.0-30.0 mg/dLToxic: >30.0 mg/dL Lethal: >70.0 mg/dLOperator ID - [id number] 16:50:51 Test Item Value Reference Range Interpretation Comments CORTISOL, TOTAL (BEAKER) (test 13.4 ug/dL 3.7-19.4 code = 2755) Wildlife Biologist ID - BCVQRSK-7-PQYJMYMBXVL7483-04-01 16:35:51 Test Item Value Reference Range Interpretation Comments ALPHA-1 ANTITRYPSIN (BEAKER) 282.30 mg/dL 90.00-200.00 H (test code = 502) Wildlife Biologist ID - BSACETAMINOPHEN [id number] 16:30:13 Test Item Value Reference Range Interpretation Comments ACETAMINOPHEN LEVEL (BEAKER) (test < ug/mL 10.0-30.0 L code = 344) Therapeutic Range: 10.0-30.0 g/mLToxic Levels: >200.0 g/mLOperator ID - MM TSH/FREE T4 IF [id number] 16:15:28 Test Item Value Reference Range Interpretation Comments THYROID STIMULATING HORMONE 0.121 uIU/mL 0.350-4.940 L (BEAKER) (test code = 772) Wildlife Biologist ID - BSHEPATITIS C [id number] 16:10:06 Test Item Value Reference Range Interpretation Comments HEPATITIS C ANTIBODY (BEAKER) Nonreactive Nonreactive (test code = 367) Wildlife Biologist ID - BSHEPATITIS B SURFACE [id number] 16:10:05 Test Item Value Reference Range Interpretation Comments HEPATITIS B SURFACE ANTIGEN (2) Nonreactive Nonreactive (BEAKER) (test code = 2585) Specimen is considered negative for HBsAg.[id number] 15:13:41 Test Item Value Reference Range Interpretation Comments AMMONIA (BEAKER) (test code = 348) 44 mol/L 18-72 Wildlife Biologist ID - MMCREATINE KINASE (CK)2022-06-08 15:03:37 Test Item Value Reference Range Interpretation Comments CREATINE KINASE TOTAL (BEAKER) (test 42 U/L 29-200 code = 380) Wildlife Biologist ID - MMU/S, ABDOMINAL, [id number] 14:56:00Reason for exam:- >eval RUQ and kidneys [facility] : 1985 Sex: [...] Rubio MDReport Verified Date/Time: 06/08/2022 14:56:28 ReadingLocation: [facility] B1 C013[facility] CT Body Reading Room VITAMIN [id number] 14:03:03 Test Item Value Reference Range Interpretation Comments VITAMIN B12 (BEAKER) (test code = > pg/mL 213-816 H 774) Wildlife Biologist ID - MMCOMPREHENSIVE METABOLIC [id number] 13:41:11 Test Item Value Reference Range Interpretation [...] H (BEAKER) (test code = 347) EGFR (ALEXANDER) 43 Interpretatio n of eGFR (test code [...] not appl icable for dialysis patien ts Wildlife Biologist ID - MMRAD, CHEST, 1 VIEW, NON [id number] 13:40:00Reason for exam:- >CVC placementShould this be performed at the bedside?->Yes [facility] : 1985 Sex: FFINAL REPORT Chest, one view History: Placement of central venous catheter Comparison: none Findings:Clear lungs. Normal size heart. No pleural effusion or pneumothorax. A rightinternal jugular central venous catheter terminates within the superior vena cava. Impression:Satisfactory position of right internal jugular central venous catheter. Signed: Arturo Dumont MDReport Verified Date/Time: 06/08/2022 13:40:21 [id number] 13:37:09 Test Item Value Reference Range Interpretation Comments FERRITIN (ALEXANDER) (test code = 273.35 ng/mL 5.00-275.00 361) Wildlife Biologist ID - [id number] 13:11:23 Test Item Value Reference Range Interpretation [...] % 20-55 H (test code = 2590) Wildlife Biologist ID - DDYBKDPAUHBY9366-07-72 13:08:43 Test Item Value Reference Range Interpretation Comments PHOSPHORUS (BEAKER) (test code = 3.8 mg/dL 2.3-4.7 604) Wildlife Biologist ID - [id number] 13:08:42 Test Item Value Reference Range Interpretation Comments MAGNESIUM (BEAKER) (test code = 2.6 mg/dL 1.6-2.6 627) Wildlife Biologist ID - [id number] 13:02:42 Test Item Value Reference Range Interpretation Comments PARTIAL THROMBOPLASTIN TIME 31.7 seconds 22.5-36.0 (BEAKER) (test code = 760) PROTHROMBIN TIME/[id number] 13:02:02 Test Item Value Reference Range Interpretation [...] mechanical heart valves.CBC W/PLT COUNT & AUTO [id number] 12:49:19 Test Item Value Reference Range Interpretation [...] 0.00-1.00 PERCENT (BEAKER) (test code = 2801) [id number]-[id number] 12:31:06 Test Item Value Reference Range Interpretation Comments POC-POTASSIUM 3.6 meq/L 3.6-5.5 : TESTED AT [facility] 67 (BEAKER) (test code [place], = 1540) [address]: Wildlife Biologist/Techni skip ID = [id number] for ANGELINA MOURA HEHK-[id number] 12:31:06 Test Item Value Reference Range Interpretation Comments POC-HEMOGLOBIN 6.8 g/dL 12.0-15.0 L : TESTED AT [place] [address] (BEAKER) (test code = JANIE [employer] [facility], 1856) [address]: Wildlife Biologist/Techni skip ID = [id number] for ANGELINA MOURA UUHD-[id number] 12:31:06 Test Item Value Reference Range Interpretation Comments POC-HEMATOCRIT 20 % 36-45 L : Wildlife Biologist/Te chnician ID = [facility] (test code = 841682 for ANGELINA MOURA 185) [id number] 12:31:06 Test Item Value Reference Range Interpretation Comments POC-GLUCOSE (BEAKER) 105 mg/dL 70-110 : TESTE D AT [facility] 6720 (test code = 1855) OUMAR [employer] [facility], [address]: Wildlife Biologist/Techni skip ID = [id number] for ANGELINA MOURA POCT-BLOOD GASES, [id number] 12:31:00 Test Item Value Reference Range Interpretation [...] -3.0 meq/L -2.0-3.0 L : TESTED AT [facility] [address] ARTERIAL-POC [facility] [place], (BEAKER) (test [address]: code = 1841) Wildlife Biologist/Techni skip ID = [id number] for ANGELINA MOURA ORBM-[id number] 12:31:00 Test Item Value Reference Range Interpretation Comments POC-SODIUM (BEAKER) 132 meq/L 135-148 L : TESTED AT [facility] 6720 (test code = 1542) [place], [address]: Wildlife Biologist/Techni skip ID = [id number] for ANGELINA MOURA Culture, [id number] 15:56:00 Test Item Value Reference Range Interpretation Comments Culture, Urine (test code = URC) NF Culture, Urine (test code = URC1) 50 MSF Wowbfeauf7028-70-47 19:50:00 Test Item Value Reference Range Interpretation [...] EGFRCR) Estimated GFR: Greater than 90 mL/min/1.73 k9Zzknjfxd eGFR is based on the CK D-EPI [...] code = 14 U/L 8-55 N ALT) Wjsaqjoqu1635-48-98 19:50:00 Test Item Value Reference Range Interpretation Comments Chemistry (test code = LIP) 39 U/L 8-78 N Ukzibumue3684-69-28 19:46:00 Test Item Value Reference Range Interpretation Comments Chemistry (test Less than < 0.028 code = TROPI-R) 0.010 ng/mL Reference Ra nge 0.00 - 0.028 n g/mL Negative 0.029 - 0.29 ng/mL Indetermi vincent Greater or Equa l to 0.3 ng/mL Stron gly suggests NM Chemistry - Htnzwde3372-17-23 19:43:00 Test Item Value Reference Range Interpretation Comments Chemistry - Lactate (test code = 0.6 mmol/L 0.5-2.2 N LACTSEP-T) Chemistry - [id number] 19:27:00 Test Item Value Reference Range Interpretation Comments Chemistry - Specials Negative NEGATIVE Method of sensitivity- (test code = BHCGST) Indeter minant: results should be repea erna after 48-72 hrs Positive: resu lts may be detected as early as 1 day after the first missed me nses. Bhwstuknee9486-79-65 19:22:00 Test Item Value Reference Range Interpretation [...] code = BASO#) 0.0 thou/uL 0.0-0.2 N Kuagqteryd1413-89-11 19:16:00 Test Item Value Reference Range Interpretation Comments Urinalysis (test code = [place] Yellow A UACLR) Urinalysis (test code = [...] Seen A UABAC) Urine Source: Urine VoidedType [id number] 09:43:00 Test Item Value Reference Range Interpretation [...] 7 days from now? NOPacked Cells - Hadreiuybzje3721-76-47 09:43:[id number] OP [facility] TRANSFUSED 03/09/22 0342 Xlhoysseyq0604-01-66 05:58:00 Test Item Value Reference Range Interpretation [...] Urine Clean CatchUrine specific gravity measurement by nqdmxjbkfyqtl7742-17-10 05:17:00 Test Item Value Reference Range Interpretation Comments Urine Specific Summers (test code = 1.054 1.002-1.036 5810-7) [facility] pH measurement by automated test syimq1380-74-84 05:17:00 Test Item Value Reference Range Interpretation Comments Urine pH (test code = 98414-2) 6.5 5.0-9.0 [facility] leukocyte esterase detection by automated test oxolp5546-42-51 05:17:00 Test Item Value Reference Range Interpretation Comments Urine Leukocyte Esterase (test code 75 Antionette/uL Negative = 66072-7) [facility] in Urine by Test [id number] 05:17:00 Test Item Value Reference Range Interpretation Comments Urine Nitrite (test code = 5802-4) Negative Negative [facility] protein measurement by automated test strip (mass/volume)2022-03-09 05:17:00 Test Item Value Reference Range Interpretation Comments Urine Protein (test code = Negative mg/dL Neg-Trace 39441-8) [facility] glucose measurement by test strip (mass/volume) 2022-03-09 05:17:00 Test Item Value Reference Range Interpretation Comments Urine Glucose (UA) (test code = Normal mg/dL Negative 5792-7) [facility] ketones measurement by automated test strip (mass/volume)2022-03-09 05:17:00 Test Item Value Reference Range Interpretation Comments Urine Ketones (test code = Negative mg/dL Negative 79388-3) [facility] urobilinogen measurement (units/volume) by test qjpsr0886-81-64 05:17:00 Test Item Value Reference Range Interpretation Comments Urine Urobilinogen (test code = Normal mg/dL Less than 2 91485-0) [facility] total bilirubin detection by automated test xenei4964-20-18 05:17:00 Test Item Value Reference Range Interpretation Comments Urine Bilirubin (test code = Negative Negative 70345-6) [facility] hemoglobin detection by automated test strip 2022-03-09 05:17:00 Test Item Value Reference Range Interpretation Comments Urine Blood (test code = 46042-0) 3+ Negative [facility] erythrocytes detection by automated method 2022-03-09 05:17:00 Test Item Value Reference Range Interpretation Comments Urine RBC (test code = 74457-4) 4-6 HPF 0-3 [facility] leukocytes detection by automated method 2022-03-09 05:17:00 Test Item Value Reference Range Interpretation Comments Urine WBC (test code = 03968-1) 0-3 HPF 0-3 [facility] HealthEpithelial cells.squamous [#/area] in Urine sediment by Automated nwtcl4282-02-96 05:17:00 Test Item Value Reference Range Interpretation Comments Urine Squamous Epithelial Cells (test 0-3 HPF 0-3 code = 73039-8) [facility] bacteria detection by automated rkpsry6207-98-69 05:17:00 Test Item Value Reference Range Interpretation Comments Urine Bacteria (test code = None Seen HPF None Seen 65579-7) [facility] by Hqzi6053-72-79 05:17:00 Test Item Value Reference Range Interpretation Comments Urine Color (test code = Light-Yellow Yellow 15331-2) [facility] clarity by refractometry illljntgm8284-22-42 05:17:00 Test Item Value Reference Range Interpretation Comments Urine Clarity (test code = 53494-2) Clear Clear [facility]2022-12-31 03:39:00 Test Item Value Reference Range Interpretation Comments Chemistry (test Less than < 0.028 code = TROPI-R) 0.010 ng/mL Reference Ra nge 0.00 - 0.028 ng /mL Negative 0.029 - 0.29 ng/mL Indetermi vincent Greater or Equa l to 0.3 ng/mL Stron gly suggests NM Chemistry - Owsuanhh7085-91-20 01:51:00 Test Item Value Reference Range Interpretation Comments Chemistry - Specials Negative NEGATIVE Method of sensitivity- (test code = BHCGST) Indeter minant: results should be repea erna after 48-72 hrs Positive: resul ts may be detected as early as 1 day after the first missed me nses. Ukkilxefrxy9587-03-02 01:01:00 Test Item Value Reference Range Interpretation [...] NONEMedical Necessity SUSPECT COAGULOPATHYAnticoagulant? NONEMedical Necessity: SUSP IYFOCmwhxrzwxtm6409-33-19 01:01:00 Test Item Value Reference Range Interpretation Comments Coagulation (test code = PTT) 32.5 sec 22.9-36.1 N Anticoagulant? NONEMedical Necessity SUSPECT COAGULOPATHYAnticoagulant? NONEMedical Necessity: SUSP LBBJEpnwjfukdjs6613-97-08 01:01:00 Test Item Value Reference Range Interpretation Comments Coagulation (test 0.27 *mcg/mL 0.27-0.43 N * Referenc e Range code = DDIMTT) Units: mcg/mL of fibrinogen equi valent units(FEU)Based upon a retrospective study of [facility] in July 2005, a result of"Less than 0. 44 mcg/mL FEU" is predictive of t he absence ofa DVT or PE. Anticoagulant? NONEMedical Necessity SUSPECT COAGULOPATHYAnticoagulant? NONEMedical Necessity: SUSP COAGChemistry - Bdtrpag4155-87-73 00:53:00 Test Item Value Reference Range Interpretation Comments Chemistry - Lactate (test code = 0.7 mmol/L 0.5-2.2 N LACTSEP-T) Retype Verify-Blood Type [id number] 00:36:00 Test Item Value Reference Range Interpretation Comments Blood Type Rh (test code = BT) A POSITIVE Serum or plasma lactate measurement (moles/volume)2022-03-09 00:26:00 Test Item Value Reference Range Interpretation Comments Lactic Acid Level (test code = 0.7 mmol/L 0.5-2.2 2524-7) [facility] HealthProthrombin time (PT) in platelet poor plasma by coagulation neelh2114-23-55 00:26:00 Test Item Value Reference Range Interpretation Comments Prothrombin Time (test code = 14.1 sec 12.0-14.7 5902-2) [facility] HealthINR in Platelet poor plasma by Coagulation assay 2022-03-09 00:26:00 Test Item Value Reference Range Interpretation Comments INR International Normalized Ratio 1.1 (test code = 6301-6) [facility] HealthActivated partial thromboplastin time (aPTT) in platelet poor plasma by coagulation [id number] 00:26:00 Test Item Value Reference Range Interpretation Comments Activated Partial Thromboplast Time 32.5 sec 22.9-36.1 (test code = 36344-1) [facility] HealthFibrin D-dimer FEU measurement in platelet poor plasma (mass/volume)2022-03-09 00:26:00 Test Item Value Reference Range Interpretation Comments D-Dimer (test code = 65543-1) 0.27 *mcg/mL 0.27-0.43 [facility]2022-12-31 00:01:00 Test Item Value Reference Range Interpretation Comments Chemistry (test Less than < 0.028 code = TROPI-R) 0.010 ng/mL Reference Ra nge 0.00 - 0.028 ng /mL Negative 0.029 - 0.29 ng/mL Indetermi vincent Greater or Equa l to 0.3 ng/mL Stron gly suggests NM Teuczyavt0151-52-62 23:59:00 Test Item Value Reference Range Interpretation [...] EGFRCR) Estimated GFR: Greater than 90 mL/min/1.73 m8Avhlkiwx eGFR is based on the CK D-EPI [...] code = 7 U/L 8-55 L ALT) Beyvwzbwk4104-52-92 23:59:00 Test Item Value Reference Range Interpretation Comments Chemistry (test code = LIP) 42 U/L 8-78 N Gjfphpicag9880-36-03 23:36:00 Test Item Value Reference Range Interpretation [...] (test code = 2951-2) 140 mmol/L 136-145 [facility] or plasma potassium measurement (moles/volume) 2022-03-08 23:16:00 Test Item Value Reference Range Interpretation Comments Potassium Level (test code = 3.7 mmol/L 3.5-5.1 2823-3) [facility] or plasma chloride measurement (moles/volume) 2022-03-08 23:16:00 Test Item Value Reference Range Interpretation Comments Chloride Level (test code = 105 mmol/L 98-107 2075-0) [facility] or plasma carbon dioxide, total measurement (moles/volume)2022-03-08 23:16:00 Test Item Value Reference Range Interpretation Comments Carbon Dioxide Level (test code = 27 mmol/L 2027-11) [facility] or plasma anion [id number] 23:16:00 Test Item Value Reference Range Interpretation Comments Anion Gap (test code = 65168-8) 12 mmol/L 10-20 [facility] or plasma urea nitrogen measurement (mass/volume)2022-03-08 23:16:00 Test Item Value Reference Range Interpretation Comments Blood Urea Nitrogen (test code = 13 mg/dL 7.0-18.7 3094-0) [facility] or plasma creatinine measurement (mass/volume) 2022-03-08 23:16:00 Test Item Value Reference Range Interpretation Comments Creatinine (test code = 2160-0) 0.67 mg/dL 0.6-1.1 [facility] HealthGlomerular filtration rate/1.73 sq M.predicted [Volume Rate/Area] in Serum, Plasma [id number] 23:16:00 Test Item Value Reference Range Interpretation Comments Estimated GFR (CKD-EPI 2020) (test code 115 = 01212-0) [facility] HealthGlucose [Mass/volume] in Serum or Qhgsqo4162-23-54 23:16:00 Test Item Value Reference Range Interpretation Comments Glucose Level (test code = 2345-7) 107 mg/dL 70-105 [facility] or plasma calcium measurement (mass/volume) 2022-03-08 23:16:00 Test Item Value Reference Range Interpretation Comments Calcium Level (test code = 10316-7) 8.5 mg/dL 7.8-10.44 [facility] or plasma total bilirubin measurement (mass/volume)2022-03-08 23:16:00 Test Item Value Reference Range Interpretation Comments Total Bilirubin (test code = 0.2 mg/dL 0.2-1.2 1974-2) [facility] or plasma protein measurement (mass/volume) 2022-03-08 23:16:00 Test Item Value Reference Range Interpretation Comments Serum Total Protein (test code = 6.0 g/dL 6.0-8.3 2885-2) [facility] or plasma albumin measurement by bromocresol green (BCG) dye binding method ([id number] 23:16:00 Test Item Value Reference Range Interpretation Comments Albumin (test code = 46900-6) 3.6 g/dL 3.5-5.0 [facility] HealthGlobulin [Mass/volume] in Serum by calculation 2022-03-08 23:16:00 Test Item Value Reference Range Interpretation Comments Globulin (test code = 81577-4) 2.4 g/dL 2.4-3.5 [facility] HealthAlbumin/Globulin [Mass Ratio] in Serum or Plasma 2022-03-08 23:16:00 Test Item Value Reference Range Interpretation Comments Albumin/Globulin Ratio (test code = 1.5 g/dL 1.2-2.2 1759-0) [facility] [Enzymatic activity/volume] in Serum or Dafkzv8404-30-89 23:16:00 Test Item Value Reference Range Interpretation Comments Alkaline Phosphatase (test code = 58 U/L 40-110 6768-6) [facility] or plasma aspartate aminotransferase measurement (enzymatic activity/volume)2022-03-08 23:16:00 Test Item Value Reference Range Interpretation Comments Aspartate Amino Transf (AST/SGOT) (test 8 U/L 5-34 code = 1920-8) [facility] or plasma alanine aminotransferase measurement without P-5'-P (enzymatic wrtair0735-70-95 23:16:00 Test Item Value Reference Range Interpretation Comments Alanine Aminotransferase (ALT/SGPT) 7 U/L 8-55 (test code = 1744-2) [facility] or plasma lipase measurement (enzymatic activity/volume)2022-03-08 23:16:00 Test Item Value Reference Range Interpretation Comments Lipase (test code = 3040-3) 42 U/L 8-78 [facility] human chorionic gonadotropin detection for npaimisvw5814-07-43 23:16:00 Test Item Value Reference Range Interpretation Comments Serum Test, Qualitative Negative NEGATIVE (test code = 2118-8) [facility] HealthLeukocytes [#/volume] in Blood by Automated count 2022-03-08 23:16:00 Test Item Value Reference Range Interpretation Comments White Blood Count (test code = 7.8 10x3/uL 4.8-10.8 6690-2) [facility] erythrocytes automated count (number/volume) 2022-03-08 23:16:00 Test Item Value Reference Range Interpretation Comments Red Blood Count (test code = 2.42 mill/uL 4.20-5.40 789-8) [facility] ([facility]/volume)2022-03-08 23:16:00 Test Item Value Reference Range Interpretation Comments Hemoglobin (test code = 718-7) 8.3 g/dL 12.0-16.0 [facility]Autom[facility] erythrocyte mean corpuscular volume 2022-03-08 23:16:00 Test Item Value Reference Range Interpretation Comments Mean Corpuscular Volume (test code = 94.0 fl 78.0-98.0 787-2) [facility] HealthAutom[facility] erythrocyte mean corpuscular hemoglobin (mass per erythrocyte)2022-03-08 23:16:00 Test Item Value Reference Range Interpretation Comments Mean Corpuscular Hemoglobin (test 34.2 pg 27.0-31.0 code = 785-6) [facility]Autom[facility] erythrocyte mean corpuscular hemoglobin concentration measurement (mass/fjk5913-80-62 23:16:00 Test Item Value Reference Range Interpretation Comments Mean Corpuscular Hemoglobin Concent 36.4 g/dL 32.0-36.0 (test code = 786-4) [facility] HealthAutomated erythrocyte distribution width ratio 2022-03-08 23:16:00 Test Item Value Reference Range Interpretation Comments Red Cell Distribution Width (test code 13.8 % 11.5-14.5 = 788-0) [facility] platelet count (count/volume) 2022-03-08 23:16:00 Test Item Value Reference Range Interpretation Comments Platelet Count (test code = 237 10x3/uL 130-400 777-3) [facility] HealthAutomated blood platelet mean lskanp0892-45-57 23:16:00 Test Item Value Reference Range Interpretation Comments Mean Platelet Volume (test code = 7.2 fL 7.4-10.4 29863-8) [facility]Autom[facility] blood neutrophils/100 tlcxytpgib0525-09-99 23:16:00 Test Item Value Reference Range Interpretation Comments Neutrophils % (test code = 770-8) 60.3 % 42.0-75.0 [facility] HealthLymphocytes/100 leukocytes in Blood by Automated count 2022-03-08 23:16:00 Test Item Value Reference Range Interpretation Comments Lymphocytes % (test code = 736-9) 30.8 % 21.0-51.0 [facility] monocytes/100 fxtlzfarlg8778-96-43 23:16:00 Test Item Value Reference Range Interpretation Comments Monocytes % (test code = 5905-5) 5.5 % 0.0-10.0 [facility] eosinophils/100 vjpleqmucg7313-06-54 23:16:00 Test Item Value Reference Range Interpretation Comments Eosinophils % (test code = 713-8) 3.2 % 0.0-10.0 [facility] basophils/100 lganhcjbej2959-17-66 23:16:00 Test Item Value Reference Range Interpretation Comments Basophils % (test code = 706-2) 0.2 % 0.0-1.0 [facility] neutrophils automated count (number/volume) 2022-03-08 23:16:00 Test Item Value Reference Range Interpretation Comments Neutrophils # (test code = 751-8) 4.7 thou/uL 1.40-6.50 [facility] HealthLymphocytes [#/volume] in Blood by Automated count 2022-03-08 23:16:00 Test Item Value Reference Range Interpretation Comments Lymphocytes # (test code = 731-0) 2.4 thou/uL 1.20-3.40 [facility] HealthBlood monocytes automated count (number/volume) 2022-03-08 23:16:00 Test Item Value Reference Range Interpretation Comments Monocytes # (test code = 742-7) 0.4 thou/uL 0.11-0.59 [facility] eosinophils automated count (count/volume) 2022-03-08 23:16:00 Test Item Value Reference Range Interpretation Comments Eosinophils # (test code = 711-2) 0.2 thou/uL 0.0-0.7 [facility] HealthAutomated blood basophil count (count/volume) 2022-03-08 23:16:00 Test Item Value Reference Range Interpretation Comments Basophils # (test code = 704-7) 0.0 thou/uL 0.0-0.2 [facility] HealthTissue Jtrs5884-50-49 16:47:26 Test Item Value Reference Range Interpretation Comments Case Report (test code Surgical Pathology = 104) Report Case: [id number] Authorizing Provider: Nathaniel Dooley MD Collected: 02/26/2022 04:38 PM Ordering Location: [address] Received: 02/27/2022 07:57 AM Service Pathologist: Gene Carlton MD Specimen: Cervix DIAGNOSIS (test code = m4wmsPFwMISim2zvVIKoyO 3220) FuZzEwMzNcZnRuYmpcdWMx IHtccnRmMVxlcGljOTYwMl bfscRqEXWmrHWoF5Npbqej FTdeLN6hMU7bpHvjtEUekB ZxCZNkIqDpp0waj735uOFi e9mxUJZGygzytDg9mPhuA1 6op8Y6OxbvM28rjAHtYAK9 MNCdBXDuoPZpLIOcSJD8LU OiqBJwD0htRALpDM9tmhzp QBjyDPxmODCzbGS6ERGbtH PsR0ZaXFBwAOstZLSopsy8 NyLaUe4znMNywRlyIOsxDA SiZNTyVBllWRQoJkXsT8VA ViuZKWEXSZSQLRUWXG4FM4 h5YMMjsqn6GCWvGJGMHGRK NlNUU0bFAYHOKfTKVQXDWW HbQ6NsM3PLKE6ZDAQtE3WS ZXEECKPXVL0BUFQqCLXjMR Hzw48nVM38AUcnDUT2o7bd dGYxXHNzdGUxODAwMFxhbn NpXGRlZmxhbmcxMDMzXGZ0 bmJqXHVjMVxkZWZmMHtcZm 8vxCVjfAwiOoWjNXNsx8cq cnMIyryncAn5p3tzTNQySo U1sTEzAOsyO3syqiErjXMb OXToJFb9qX01EATckO9gnO KwKEbussZpFiU3SMnoFPLl PqJ8TTAdmBGxDLXlJ6rjTQ QwXGdyZWVuMFxibHVlMCA7 gQdsf8Y3xVWlgUUkzDliWs MoGwYfQiJDc9UdPIu8xTod G5OeVWGlAgL5jPFzRDLtTY upNRYeADLjxyP7xS23IFan gbL7xYGwg6Bxf74de145nF 9isDRcDHP3MHVaOQBxbVMp ATWxJRV9HRJrrYGpT3ajGG NvQN2dtlgeXGzrYMpjFPId tFS5FCSypGGhQ8UtWIOrLU rrMKZvfiu9PhNzLj6bfEOj wVjlTFquy4xgd6myjEJjJg m0UWFoXdMuCocmRHvhh8Ne h7wmEDAdmd0vZNC4nPSgrP bok1A1rATuXFJrjMBwRUEe CP3jgVXrTGJanH7iznndNW BnYnJkcmhlYWRccGdicmRy Vu8yiJvlBFN6BAbbU4lfnF 7rIhN3XMseH4nqrN8iIGu9 BRuvCGWzuSJ3fyV6LZDyfJ CmS1TjlG3rLCSmSH8xvww6 j6evZWS6ITnnQXIcHnG9xt D8HVEsgZTmAPFiiIorZPno k288BRF2AqFtREEys1BuZ8 FpsHaiA67dgRsyV64xSFCe aAdleR7sfSiwdA1oIxRuEd PjJZbsmSxwUV2gEXUuP0bs pTYaXLWeKLPcE2loLdJeaY 1fdIdmFBjvecRrMTGxZia4 GXVnbUTaYAGiOrk8XSShDP XqS04gljrePOG2kJ3oi5cy c4UhFBybQEH0SUBet33lTW odapH3YQkuFf62RWqfSKO5 GEwrGOZ9eZ== COMMENT (test code = p6wdtDGbEZQniCP2SjIbLP 5137) Kat3wcb3IxfTWvrLYyMLhv qKFfdlCmhu23nLW5xX71QU 4kSEEiDsD5RTFtfeH5Lgt2 YRAfPERmhJOlS439e8mry0 lhqqSvgIO2qGeeROKldrac UoL4XIsyVOWwgrivCPp1ZF tsFAEkzTD8RBEzwPMdP1Cu AXXxZR5rzue9RQC3XDvlAX IcIwG0IXEkyGCxSLLqnVda ZRpde411QLT3SwXeECPpdy JoqMuzuZ8dKkRlLHPLcPQl qOT3rELxyQzcWDnmr4Bdft bsk9VcT5YzgvhzGXjynGBh qhNsozDaj5XfLI2pLIpvBA B4nT3bUDXpe9koXANbJ3Ul SI4kY9Wkc7ozOMHyo2lsxh KtUJB4gTTwZDWbmwWpnaXt NCJ7oTPscJDpiTCgtXPnzI Yzq3DgmNT9tmQgbbDqlQJ0 CQRmc6IpdZ79KRLen33nEZ Bhcn0= CPT Code(s) (test code m8ygtSLjEJFalPM8IcLpVN = 3213) Lbe9owd1SadZRwoYAxXVpk wDKiozBcnp71pVJ5dB25ZQ 1cLRNlOgZ0ZQSkgsW2Oia1 QVOmHFFtpRVzF484d8mjz3 jhnlZteYC8rMsbUTBayptb EbT6KGpnQISzcvrqEBy7DO jsCNPbyZA4GBGekEPkM6Ve EMDyYA6wlxg1GEL8VOeyOI MfVhD9GHNgdROwMMRnxHtz DYctq628GWX1UuZxFCVixb GqxYjycW1vSfFaLAN0QTTl NVxwYXJ9 CLINICAL HISTORY (test v2gcfORxCQUycIZ4IzUmEO code = 3356) Cpv8chf3CgbZTeuYFfHVmv tEJhgiLxkl01sLT8uR47SM 9rMITnVzV0MGOjvyS3Hcs9 QIBcYJNaoBAbZ361k7nrp4 wfvvHisJR5eXclTNEspvcm AoS8IBdcEOVfyqriBFv6NG prTYBzrSV7VLDrsGFwW8Nk TBRwWK6baqw9UOT3GAoxOF OaJfT8KKVmcLPzFDJvyJam EBonl011IUJ5CvXyFHGlpi EzaOsroV5nBnOeVMBaOUU9 Kw4wCT4qQD9uvVEbzkcciq CyraRlskDdrsPochJ8YLTq n9r8xOSDCGi7QD1eNRaPWG GtpoMkXbsipG4onBdpoNIg HE69oB4bvLCki0OinXOhRG yxmLcjrkArhqVvTWciaU3d aYmyJB0hEtL1JSuzktZrUT XdMSKzbG7vVTJyt6dgzfGc YmRvbWluYWwgcGFpbiwgU0 1EABSzjVafsLsmUJNuQF0j p0VtsuVqPFRkNJWoO5OvXW Jrq9IxEXG9qcIoRZDmCMA9 kUO6q90bnAmcZTVnMM4tKG LsOHpkMSVoWWxzAE4nARCg jhWuI9PqLE4ra4Ivp5t+b2 2mrL6gL7meT1plVSR0 GROSS DESCRIPTION (test z3lkhFDaRKVdcOKFJCYbU9 code = [id number]) ggkzLoRBHpuQKdB1Frgrod HLwfYM5vMA8jrFhvdCFrtB LoJW9UKOYyQdJvEIRlbXAm ipHnJdPsHSElaFTqzSD6DN GjCI0focdlOLstDUzdKSAh iaX8YFQhcGReI8JzQKRqQC 7yskyyVRH0FJwsoG1joqVO EhgyYb8xaBDuwWkxKfMsQi NoYXJzZXQwXGZuaWwgQXJp DXe9xO3TDkbgVLX4ZHRSVl wkXQDcEJ1Yn1ytGNFxbEEi DKJ7XLsuxCMkCFNsQVTjPG h3EDGbSYcyaCIjAJ5cbSwx LmwvwMeqh9EeaCDgJZrxES AxCAUoQIqkVAWiOS7QXeTh PMV6UPh0ZVPpAIg1QEy2XE 1FEnGqLRJkNDY9BEM1SaZp AWp9XXdmEO4USXN9WKV4VQ mfNmJ7OWW1KaLwUPUwHpZz XGYgQXJpYWwgXFxmbCBcXG 1xkRcpgRSroqPGFwJUUBG1 aXguXHBhciANClxlcGljTm VzdERvYzEgDQpcbHRycGFy XGxpbjBccmluMCANClxsdH KovLmdjlMhCIXhJ7AeeoOm YCejVSBzbf7glRvjAGstFk LaIIWbu6v4bJN3oJPcwGP7 sQIijQhtIrGnYD1rvGNuJG 6tIJafMRvwmuMjy4XvLI91 bWJlciBhbmQgImNlcnZpeC IgaXMgYSAwLjUgeCAwLjMg aPZzJcWmJ60ncCMdGPalKK nzq93aiSE9zQGpeGLsQkYd H59ywuWoTTZxzQbuXBM9bE FhYNIko75cYXM0Ne9bpTKs KDGzjpR2q3XlRBliPERiJh hsMOAtJKfzjWRiIB4JC9gg sDPoEFCVyhB9mimsWDrPZV ODDTKsOCWNYWerqSsoaF6p UMwiwM8fBX0UVOUnBJcjVS NbmRIHMRS9MM7zQTbjjWAj vgyoUXRdE3UkR4YmspNpxG UjIRGaaxVti2fqLWN4QZIf aFFuvWFsGuGwSljuAML3FX wqb9jtMPL1WQZwaPManCGb JRlqLfEoAbmnYWOjH1FfP3 RcqbA8SVw7 MICROSCOPIC DESCRIPTION h0kehHHxSGMztQK6BrKjTB (test code = 3371) Jvn5yix2LzwEFnlIAfTEyj iWOldzKlrz38nAD4pK39ZV 0nSQLbJrS3XICcwoW6Wsz5 VJKsDNLwzDNuP891e5urj5 usszNohXP1zPmtUIXwlwth BwP5FQfpWMMaavlhCGv2RD lwMCAggZQ1LKLcuPPuO5Ge WLMtUH0dpsl5PGS8YXxjQF QnTgP2BJRqcUUnFVMnjMds JDxax514UJD3JmPxKCDtmh QrhBdedZ9yFeXeYBPNZALd k6RlXPMcGBNqyt2= SPECIAL STUDIES (test s3epsCJjZUAgg6bfYLSgfE code = 3376) FuZzEwMzNcZnRuYmpcdWMx JCnnhdAgZOpjx3MpG1GuNh AwMFxhbnNpXGRlZmxhbmcx ONWcRLC0nsVxQVCgRKebWV DbCUccZh7ciGXinCzwYnVm FVLan5zmtuRPaegbwGt4j6 flHBMqYuG5fCYyJOszG5uj ivEamJOxI3BtsOVjpIt6j9 lyGdBdLvN0eMWsMSdbF3uf clQikPLnKKFfZBn0vX87UD FuqC7hqIDmEIcyfrWbGpP7 FZzcGAQqAaJ7WKDoxZFbLC WwV0vjKKFlNDwkFJYsCUhx dLWkXLT4tEemg9E0pPXnjO DywDioLjMhZqFdIwEIk0Au DXp2nRduI9DdHHXyNqQ9sY QgUGFyYWdyYXBoIEZvbnQ7 sAyuqoAox87ccFShNPLoGA LjBoOprRehHJQcXDSVw9Ft wKutXPS0kYl6kNmpDfgrRC H0Ifj4HB3zzf04rox4xOys HKMzdfnrIxJ5BMfaAIWebk llHAl3KHtoXKUzuDF0MBXd xLGrW4KmQRIgDU8soim0OA E2BQkqFYXyNjP0XTEpkYTo LHWguUodMJzed431VRM1Bp YhMD5lG7Ihr7Q6wJ7qmVKd VJWshDWaVnCtYUPnal7igB AzOOjnh3JuAPX4bdW0yQPf mIMlPNVaTZ22Pnxyp0AsIj zva9YqX42zcFX4DHcnw0pk UL5fBiK2mnTrVLxkm1fumY 0jIyD5OOluER9kYF7kHEXl vI2egxzyAPTlCwCbdrivYI EhoUwqpfZzMh0vcNdjAXZ9 NGrlF4teaC5xIjD2JXxyN9 dnsY5rCHf7BDdthAE8WSLu vR9nMK1wuqmea8nnOBjwAX rrGOPcpmD7wbH3VEBcfYQn X9ZyrM0pAKLpMA1kvdhiv6 vaMXK5GEgpGPZzSWW4QoRi KKVun8Odnxz9FoSgn2EvqF KhDTplS89mh147ANHzfgXe J7yigKZdyfsyoUZujhgdCO cymhU8MBHwXYSoHGxpKNIg XGZzMjJcbGFuZzEwMzNcaG ljaFxmMVxkYmNoXGYxXGxv N1mqGfCbL5NwQRSkCtWoME ydYOvliEBoyWFvsCG4yU1a LZ2tYRPyySLvA6DcBEKkli JqsOJiDUC9xENxqZEpIG2k GMcymNDpg1ptw0BvH3bbkK ixeKI8YJ4aUFOiRRRuLTlw p4VyvW5bZsnyzQCsflwyMS xmczIyXGxhbmcxMDMzXGhp X1idRlPzSDExuAyhKQrsm7 NoXGYxXGNmMlxmczIyXGx0 cmNoXHBhclxwYXJccGxhaW 3tQnZmAeFhSoqkGR1aDAAs T1ukqVZfQNTqBKDrB2kfHt OsdI5viOpkIGuhWtEjVvHn FsMOq714zo0rRSCrhAKkni GRaOQhlJ0rSIcoVBvtURcz sRYsHHldi6iwMJUnz7p2hV NaJMZiypOil3xfWJochqDr QIOttZUziJVhUFRnf24jLN omxVrlaRhfAGAcn7WawBjl l9JyAbXcXHrkf3KbX24lfK JvbCBzbGlkZXMgcnVuIGFs s74iy3caCBBnVmR0kOJxvV K9tBThsIMkx9DbwKgvMJWa p5bjSDIoxk4egjikaFFpw9 FfhO2cberwAFyljVYerdJp QJZdz0d9yDXcVTElXPUgLP yxqVz2GSNsh531qv2peuT5 lNTkSHY3AYjnVYQyJXPoxy UgZXZhbHVhdGVkXHBsYWlu XGYxXGZzMjJcbGFuZzEwMz NcaGljaFxmMVxkYmNoXGYx WNqyV9faFyGoG0IoDYJbCx HiwSIoG1fxfIAyOQBbXDgm XGYxXGZzMjJcbGFuZzEwMz NcaGljaFxmMVxkYmNoXGYx EUccA4vqYwVgB2RtHMUhWc IgIFxwbGFpblxmMVxmczIy ZFebuaycSJBeFHcgY8tpEi OvAPFowLzxCTwaf6NxYTVc SZIyDbjyuqSvIJm3naUwKI BhclxwbGFpblxmMVxmczIy EEwjtkhtXUOvXYsfC2huWh JyQKXbuCpnDErtm6TjBBBz XGNmMlxmczIyIEltbXVub2 edg3UjB4kqoMybtMF8MSFf N3dzlNRetDV3BXA3kQ3xDQ ertzAbOKKmp8TfSGOpSQKf BmB6mE7pGIE0JcYEjVleRH BsYWluXGYxXGZzMjJcbGFu ZzEwMzNcaGljaFxmMVxkYm ZuFVVbRTjtE1ktNeGrQ0Ej PMXbWnFopCjlTDsfSHg1Hs xwbGFpblxmMVxmczIyXGxh xxuqTPHwKBnhV0xaHwDjGZ BjlUzkPDdjc1FiFZPwJOBw MlxmczIyIHMgTWVkaWNhbC ZWRB47RVEaZZKmoGtziM1y uEGMESAwubK3p9Z2PIpwGH KkGBt9XSznlcHyMTOgrK7s IHUdLX8yCYz5aqQuRIWho3 CtUI7yFBJtjDQgKAY8XCJc x4WsW4Ehw9EgGOBdZOGrmd 1eqrVcLqANcXUtIMSkzx13 XNNkWT5pI5leWQTkCSSsal QffQNxb5YjPYYbjRO7bQQt QH9QQbHCo07kJIVeCFFPop SfYQMqkVjjqFQ5gfN1pC2i LiBUaGUgRkRBIGhhcyBkZX Ltqv3mujTsZUIqCDWks6Hc pKVjoRGjjrTkK8Kwm9EgKD Mcry37ALkooOVrcv62WV4j Z6Dcj9VutQ1jGVnxNCXrc4 VxtLImjXNxEYUya1IhQ8kn ogioSRxkhJXnvN9vGTNsGP n1JXJra0ItQSExd0FjIcAx zmPxCDGvNRWpEENenV71JN Q2wZnbeMqdmvMvUG6mOMFt qyOzYOGzSKNtaQ0dZCeahl HuJAAnfmU8q5H0EHdhMKBj luBvGugiDAW5gjVffuW1aS BcD7xeuqkrFPutKHMtd4Vi qY0wkJCZpCQtu6SclEUjbB JZwTUhMS5otuIdXJ9zDLB8 ODggKENMSUEtODgpIGFzIH U1LEgsNxflJBB4zbKaFPQz s7WeZPzrV6uiX70mvGqkeU p4eLKmuIorhRCpqNQrVNWk cmP3s1R6OKVgl3TyphssBG BsYWluXGYyXGZzMjJcbGFu ZzEwMzNcaGljaFxmMlxkYm IvMWWbGSndL9fzRuXgVnNb JfjuPMU7kO== [facility] [id number] 16:47:26 Test Item Value Reference Range Interpretation Comments Case Report (test code Surgical Pathology = 104) Report Case: [id number] Authorizing Provider: Nathaniel Dooley MD Collected: 02/26/2022 04:38 PM Ordering Location: [address] Received: 02/27/2022 07:57 AM Service Pathologist: Gene Carlton MD Specimen: [employer] DIAGNOSIS (test code = [id number] 3220) FuZzEwMzNcZnRuYmpcdWMx IHtccnRmMVxlcGljOTYwMl avavDmYWYluKIuV0Qcuwch RHauHY6cPG0poGgikQQkjL YqRXUqWeGvo1kwp008qJGo g7xuOETRskjlaGf2wPmjM1 0fb1O6ZixxU96ncAPwDOM5 LNCmYTJwrDUfMKRyXBA9ZN QegYTwD8nlBUJdKW4yxfgy BEsvRDrsFSNubDN0UNWkiM OnR1IvEWTmONhhQUPmekc7 GaXaDl3tnQOytHloVOfvMM MuGVCiFKvbFSEgEiZyL6BJ WbzJDGNBLIHJFWCTPO7PO3 j4TCEiwjo4IMZuIMPQSQBI BhZWK3bSSBNNHqXXXRXAXT AaT3ZbI8OKDP6PDXGdN1FU PWYZXESWOT5FLOGfAEKfZF Ytc47tBN12NZkiONL7j9ek dGYxXHNzdGUxODAwMFxhbn NpXGRlZmxhbmcxMDMzXGZ0 bmJqXHVjMVxkZWZmMHtcZm 7huVNgaTtaWnNeOYCwv9wl jlOIsbdjuRu4o0uzMJVlIu S0rQDwAIrlR5jhjoJcvLDn BXPfDSx6aE76NUGufJ5exQ YoUCtbnrPhGnB3LMeyWVBx IgC1PFIuvTKoEFTeJ4eiRH QwXGdyZWVuMFxibHVlMCA7 bTqzq3A4bFJquCZmqKoeMh KpFyPfDtXSg3ElKIw8eYoe O5WlUPRwBzF2nIRpZHJfVA dkLGLoHHMftgC3sW60XRtt osP9mEQxu5Oee52ko924pT 0obCMtXJX3SDQwLUBraQKe TEEdWEZ7ARMgbDWjG4zyOP YfJD6ntubyXCdhFZwqKMFj dIS0YHYsySGbH9WkDBDdQL gcNKKyhap7FwYeBg5wlKPj oYvdQIywz0hri9zgySSiOh a7WCSsWpWtLmofNUufl3Sg b3pcMWWvga5kLID5tTNjwJ cmn7A3pTDnPGKwpDKjBTPu ED5foDJgUTUmuT8mvjkdFL BnYnJkcmhlYWRccGdicmRy Ab7neFcuERN2UFrfS5lwrJ 8jDkL2FAmgU0rgmI8nJKi6 TYpoCCRpcHV0mdN4NSZcyE UtG9ZvsG4aRSKvDH0aqma9 f1yxJED8ABlzCUAfOwL3em A1BBPhjQHdFDDhxPqpSWjc h971RAE5JyCtWJScc9HdW9 ScaIivG16wnHmdT12gFMWb fIbaqO6paKroaA5uHgLqMj KxRQxzbFnuEZ7aATYtO9ez fOUuGMLgUPGxV5wgAsGhwB 2unQchNWwrqvQjXJPnNmg8 SNMxnFLmGWUxSwb5GSXxMR KrS87vgxwdRUJ2vM9vd4qa i8JdCOwlCFH2OGFga95gVM nbnbS5SVhmOp84HKzpRWD2 QZndCFU5gV== COMMENT (test code = s9rzgNPwJOFflQO6AjUhOU 7015) Mpc7nud7IalRVipSIoDPxx zOEablMekw75wJJ9kU85ER 2gHRViHeK1UBIqnwB4Ouu2 AJAzQLMznRClV879z5atf0 zixtNspAY5fWuoDZMnpmaj YgR5LJayIRNailidYLj1KD mgBXMknYC7VENldLNuT3Ex TODtGO4tbhd5HPI9NYakGM EuAqS0XFEqiERgGTPatHkj QYluw536SCR6VgKhECSjvt YpeMwshV6rViVjGIFGkSYs cDL4vPNntLpmRXcee7Cehd fey1KpP4GnrvzbFXrlpGUw hxFbamUsi8KtMB8jIMnfYC W8vD7oSTQdg5kqPBDpR5Qj XB6yT6Lrz5urPMAod8xalq SgUMI1dZNbQXKlimLptpCb GOG2tRQyvXTjgLDhfZNwpV Bwv6PkhZB1mmVrokCzbNK8 FFDxe6GsyO18HQLhv86bCY Bhcn0= CPT Code(s) (test code n1egePHxMQCyvHM7XnWjYL = 3357) Igr1ins9EwhJDmtTVjDXnh tLOnndXbdp95tIT1oC28MJ 5kIPJkDeV2CABktmU9Hma9 QGEnGNOxlNMbO794n2kmr6 kvifVmcYY2eVggXJDnywgq YkK6FQrkWKItsyyaZTr4XS ybPMMgdAW0MAWnbJNyN0Oa SOCxHQ2wdtz1NZA4OCphDP BfPcI3WBNgfBCrPHYzqIya QSmsu475ULS7ZzFhZGEzkz EoqTsaxH7cAtZsCZG9NPIf NVxwYXJ9 CLINICAL HISTORY (test d8janTFzLFNbiQJ1AtSfBT code = 3356) Whd2wos3FmrECziPSmGVkz eRTlphPmhv33aWR6qR16FQ 9sONCzJnH7CJZyphO7Yqa1 CAWyZVDitKYuA648g1tsc1 geuvLnbSP6qHhxEAFivdwg HgE9DUvnYTCbqqvnDGu7SQ xbSDFyzGE3NEClrTRkT8At PTEvOZ7ospj6EPR8GMecKG JtRmD8EMXulNWqERCdgGhk RXnqn351WYZ5HhHtTCVmuq MhiZvmeA7jFzHaPRBiCGQ9 Cg7aRL6kYO9vaHJsmbdcng VhyvZyzsIfefImyzA3EADb f4c3wFEHIEo8DD3wKXuUJL IpjuRkCcbpoC9naNbnlOGu YQ63iY6jcOBtj6SfaZWpDL ahpMzltaLlzmYhKVsyfQ3x lFdpQU5dLlF6GDhhdoGzAT XpWXGxpM3uGBJbi9icwcSo YmRvbWluYWwgcGFpbiwgU0 5OYUPgdMqikZqzJTUnIF0f b3FdmcRwTJWfHUEkC2OnUB Vaz9BaNYG5rzFwMCYhPXT8 hOD7z51gxGvkBIJeLR6cDK EtLGpaQXFbSCifHW7nEPVg vlOpV3OhAX5qh6Imv0u+b2 2wdV5cT3vjC4suYUX4 GROSS DESCRIPTION (test p5gttNRaBTOzyEQXOUQsS6 code = 9758851959) vcypCfRWLwjKGdN4Rhwmkc ZLcfTF7bNO8bhFnyrCPwfI NkHJ7XOHTnChEhHFQbkVRm lyQvGaXnUTIjiDNamNW6LX RuRW0wpfdwUUytYUptPTRe slH2TKLdbVStO3BrGSQmCE 1mgzyqZXG9RMmgwI9kawNM AarcNb4efJEyoEaiSkNxAl NoYXJzZXQwXGZuaWwgQXJp VCs6jF7AWhpqVGK3PYRQVh qjSAYjEV8Gn1ddFKZepTWe AJV7FRnjnMQyGLGrGIDlNJ b5CDLdLAdndFUbJQ1qwZic GuddsMipk4LhrVUyONikWK QsJIHdZJolQWWaXN9BKdWd EHI7CAr3GKQoWZv9TMo9KJ 3RKwTkOTBwABG4SLR9CiYe EKy5MHvsKV9MLAQ5UZU4VG xfFtN9IBO6FpQfPHVdAiTa XGYgQXJpYWwgXFxmbCBcXG 3wwSyfeWRxnpQMBeNZXSX7 aXguXHBhciANClxlcGljTm VzdERvYzEgDQpcbHRycGFy XGxpbjBccmluMCANClxsdH AqcVhpvnJtESCrJ4MsivPp WIlrACEfkw7jhXhwQCshXt LgGUDza5t5aUC3dLKshKS9 yJQfmFzkDjSnIV7bxCOqCB 9mHFgbKYjuvvRub2JeTN94 bWJlciBhbmQgImNlcnZpeC IgaXMgYSAwLjUgeCAwLjMg uFHmEpBlW75nkBRqJRppHO ipa01fcTU5ePOjyFTtGqGv X59onuIaDCBzsDfrYXC7vQ PeDYSlm89rJKV8Iv8bdEDc ATRlhfO6y7ZgFIhzQSWkSf mhVALhYOeluFUoJA7JI2jp rYMcCECXsrM6dhimLNhDLC TJAMIyPIBQFLogbGkzcO1a MHedxI4yON3YMUAmYUwvWJ ZamUBQPOZ9WW1lLIehdZDa necjYTDfF2WxJ0RjezVzdO OlPEPjmkJxs5nsFDH6QFVb kTRliKOpOtWnSsixMTH6ZU pnv5kiEHU4ETHhmYIxrKXm NOfkXwIyBkzpOBQsQ8CbZ3 UwqxO3DUb3 MICROSCOPIC DESCRIPTION a0nseZVzRLLgmDT5GqIkWQ (test code = 3371) Asr0piy4VkbPRztDXvJCet hCTptdKbqm74wBI4pK40JI 0gGEFjHiU8AITojdN9Nzs5 RFKfEPSxyXMjO044p6yyx6 ttoxDxwOP2gXtfWBFbikmq BkV3JMykOKGinbzoPQs8LW ubQXBwkKR6VEXwsKDxZ1Kv GNZiLD3qhrj6ZUV0YTlaKD AiAlJ2PIXqnLUzOQMshDnj ICttr198DID8ObHwTCIrkm FscAeaxH3fAeKpFDFPSMUu b0JsBEApLADoyq1= SPECIAL STUDIES (test t9clfZTiWLSgd7fvGXIetX code = 3376) FuZzEwMzNcZnRuYmpcdWMx NRnmnmZvWZrbe8UqR4GoSr AwMFxhbnNpXGRlZmxhbmcx FPIxFTB3sqCcIMIlDGumWS SnIVvkRz3doDSmaEjiDpNr WLVuj6skxcDFwrhgtEl3c6 abDYZdRmG2dQWoNNsvB3ws fgHmfBImL3XkkAKqhSt9g1 fnSzNsFdH2aQRjHSptY9ba ygDslBYkVZCyBIw3eC47WM PpoH0xaTKpUMqcnoDiEnR0 PNjtGDAzVbC0PLSiyUPgGV YbA4rnAXJpXCuuMLJfLHqx qAHgMKM3bHgam3G4xDSbeR YqpIukCcVfQrXvEqCEo1Rj YVz4lKsmC2DcLSMyTeG6pO QgUGFyYWdyYXBoIEZvbnQ7 kGicemHqx84lvKFnCYCqXA RtCmZscNbsZVVwYLLQv9Dd mPwpWAI7uRz2zLouRnziGY K2Mpb9XY4wfr10opb9iDmb ZVSlqfrzYkG6FQsrUDLfla scIIl5BKhqXBQaxNZ5HFWv bAKwY8QeXFXfDG3uepy3RA T0PYreITFpQcM8YPLxfOPy SAGcwSiqKXtar565GYR7Zf QrEU5hN2Iad1G7bC3wjRMn PZUowMEsGlUpFEEulf3iqZ ViDZbdz5WiTPF5dcH9jPGs sRPyOXAcIV70Wtmjx7MdXq cyu7StC40kwIV7PUxwt6gb SP7rAcS3toJwJWhpl0vvvT 5xYdG8SXykSU3tLJ4uOJHl iX1wgqzlGXGuJrAgdnroAI JizKnnmvAsCc0yjRgtYHG9 SSwlY3oxmA5aUwC2ZAtaI4 gevQ6kDJa7WUfvjUA7SMDe eK7aHN8qmbgjp2yeFRosPP rxWUYsxaT7baV6KFAizFSt C9DauW9wTAPbAF6xbgcot9 nxYZG7IBsjQQOtBRX7SxZw HTRpr9Oikwl6CoLkl1ZtzM RcBTecW55mn305GBRjfwUm P5oyvJMpiberrWIazqbxBG jwbmY9QXFcNHJvHYedZHYz XGZzMjJcbGFuZzEwMzNcaG ljaFxmMVxkYmNoXGYxXGxv E0lfAsPrN4TbJNGrTbJjNV kxAWplbAHjpDBzmCU4uN8h ES9dYGVbiDUcT3HsETGzdy AcfJHnZQH4fKLswVCeCV1p GNinfAQpw1amr4GiZ5divS fadQV4BQ1sUVHxYLRqZKft u3UgpB4sBjycnANggoriQC xmczIyXGxhbmcxMDMzXGhp P1lrRzZtNDUxqCzgVAmvl6 NoXGYxXGNmMlxmczIyXGx0 cmNoXHBhclxwYXJccGxhaW 8vCzVvFmHtAvbqTJ3nNJDg N9chtYWaAATqZJIwA7ahWr EhwR8jvUopGRwiZlDiLpBu YyWMk405kk1wAAWosEPvuo LVnSVlpN1cEExgBBviFJik iWXqFQych2zcZHIml9z0sA AoRJItwaKmw2jvTDgdrdId PJDkaRTgnWHbEMEuj30yFV nzsVsekUiwNQSpa7AgfLjd d4TbShIjVUuel0ShT37nnX JvbCBzbGlkZXMgcnVuIGFs t34ic8soCPHfEzC9bIIlcV G6xDHbwZFat2IjuNnrSCAh p4ahHWZfdx4ochehtTQqy0 LsaR5lszxePTknySJgvyNy TNTpp0f9yORzYDIdBRBnYC alxHf6ORJih911qb7nrwH9 fRNkSWF8CIfbBJKtAYTohx UgZXZhbHVhdGVkXHBsYWlu XGYxXGZzMjJcbGFuZzEwMz NcaGljaFxmMVxkYmNoXGYx WFeqO4dpZbMaU3GuELJtHf MhnYKdQ0sgaUTcWWXsDRnq XGYxXGZzMjJcbGFuZzEwMz NcaGljaFxmMVxkYmNoXGYx ZCavB4wfYrSgK0EhGKOmAh IgIFxwbGFpblxmMVxmczIy KPzxcyvoBJApNFenE4iePu DlIDYaqFuhMOdke8EoPPFe SZOgGtpuwqNtENn1cvRzCX BhclxwbGFpblxmMVxmczIy FOhdpoqiTUZrFIbnA0raSv OmJJCkxLloVXslf0JcFMCv XGNmMlxmczIyIEltbXVub2 hra9IrL1cmaBfjcZX1IBBb V3qozLQmqVV1OWV5dQ0nUQ nxfuCeYUVnd6EeCHYlJZWo AyZ1iN1pTDT8FyAXeEljCD BsYWluXGYxXGZzMjJcbGFu ZzEwMzNcaGljaFxmMVxkYm UvSIUlNOhfI6tbWnEeV1Nk PXFwCgCjpZeiYWxrSHp5Nc xwbGFpblxmMVxmczIyXGxh gdfmJAOwRZvmF0bpXqCuSX HixFowLTfsn8DeWFHaCCSf MlxmczIyIHMgTWVkaWNhbC CWGU78UICsDMUrqVjlvS2g aESATNMkguL6p9D5IYorSO EcXMo1JEebxlVfMTLaeJ8r PXMoRL5mZUm7xwWzAQQqb4 SxNU7lPFPfhNYqYKP1UTMd j5AjQ4Xkw3TgEVOtGUKehw 6igsRtNxQBhPIiDHNslx19 NTJvZD6qN8gcNOHmYQJncn DtwYVcl6TaFYPkbVU7aXXq LC9RGaCZt53aVWKuRWVUku XmFMYcsWvltMZ5jjS7oZ8a LiBUaGUgRkRBIGhhcyBkZX Pvrv6lumLwGZCrSJBuz6In cWQbxTXiteGwS4Kgl0MoYB Jovb01KAwkzLDqvk10RF6v A0Atx8WzfG6fQXwoPJQpo9 CsvMCbzVPxKWSjm8JmJ4ka yraoLNvphPKfgG8pSRCxCO a5BNOfw9LjBCSwx7IbJaWk waTzQZHzLLPsYLTtvB45KG V2yCtekRcjbwLjRY2sMORm gzEaDGPpSTNunC4dCHwugk HzWPPsshK5r1P5ZNgiQRSw oiGpOrccUTR5ufEhjeH1tA YtI1kupoflMWcmIDUuk4Dy eK0ceWUEzESam2CzjXDutL MWfQAuBX3flqAxTF9bUZA0 ODggKENMSUEtODgpIGFzIH V1VDxxAgrxBKG0imGiYDVq j1EgLNarG9kmD78vpWdttB b8dQPekPsyfGFgwUXlAHYs jfM6k2B6DUPzd5JwqdtyTP BsYWluXGYyXGZzMjJcbGFu ZzEwMzNcaGljaFxmMlxkYm DlEPOoIMrhO1nxCmLlZhVz HqlfSMQ7bC== [facility] [id number] 16:47:26 Test Item Value Reference Range Interpretation Comments Case Report (test code Surgical Pathology = 104) Report Case: [id number] Authorizing Provider: Nathaniel Dooley MD Collected: 02/26/2022 04:38 PM Ordering Location: [address] Received: 02/27/2022 07:57 AM Service Pathologist: Gene Carlton MD Specimen: Cervix DIAGNOSIS (test code = [id number] 3220) FuZzEwMzNcZnRuYmpcdWMx IHtccnRmMVxlcGljOTYwMl xzqtKoXZBssXYoQ3Cndrad OWdxHK7mGN0bdGvayXAtrB NqVZJgJmRyx5fda446kFSy s2ndOUAJdxapqWt3xNphS9 5cp8B0AbotR89fwMNjSPL3 ISKmLADylHLzKOJaKGZ5ZS VntQVwY2msGVGiXS6cplah MJnvWLorIOAdiZR1UAMnhC GvB0IlRHToUMlbNRYjbog8 MmWaOs7bpMTxtJcpLWqrGA YqAZXaNSzpGAVwDzIuD6JK QpkOZTGYHRAASMVBOW8BB6 a4IVUwxbl3OLUaINRHNOZO CeBFW3oMMIIQPeZZTNJGVT ByC2JwU0HGBJ1FTRNfD9SB HJYOAXDYPL7QRGYfSDIgIS Jmf75aFB57ZMfhJUA0k2nr dGYxXHNzdGUxODAwMFxhbn NpXGRlZmxhbmcxMDMzXGZ0 bmJqXHVjMVxkZWZmMHtcZm 4nbSBrwZbsCsQrMEHjx9nn poMOhaisaXa6y0rtHRVuEs M7pKRqUPmoI7hjjjCuxDCd QIXaMDp3pE83NBBvgZ0olI EoCAsiunBvPaP2BCknQJDf LlA3DSDtbGZtXEUcE8sjLP QwXGdyZWVuMFxibHVlMCA7 zHplz8T0iUYheDHkkWtcDc FtFxZsOnBPf9UbCDc9uTjx O7KwNLIzGyD2cZIsGNRlEP pfDAEqTLOsuoT4nL93YIyb ioY0qRAvh5Jbw17al059dK 4zlHVtEDA9YGUsNEKflHHo LINnOSO9JAIqpMNrE8ecPD QpDT5qyzkoOTmnXGweOKPo pIY3MXKuyZYlY7SyMOGgGW hqCDWmymh0PlPkFo4kbCIi tWfoDEpqm4ysc0awhLPqCp g8NPOvOtKnAgvwWRxhc5Xi x5xdEZNpbz6aPYV3wAVdqV jrb8B7qJOyCPXfqDYgIGRx TW6nqPGsRXYehB6ixlfzXE BnYnJkcmhlYWRccGdicmRy Gh3boDzeVID5PYkgP0pnsT 2iNuH4JAqlC3kpuY3oCJe2 ALvqUVJfvRY9pjX6CAFdyT AiF3ImaI3tAMTqEY4shdz7 u3lwUIU2THubABRhSeU8pd Y7KSSssSCgMGRmyAbpIBdg e367HIE7SkCjUKMci9BeU7 TwkCkbF11mrHpjT12dDLPf vLiufQ9ulJxfbT0vWyQeHt ObDSekrJgiKE0sQJXvA9lc xEJyJGKmZOAeF1ixTiUieZ 0njFsdNDpwmxDyDBMlAhg5 HYZhnHMzBNNiBat0IUIbAH NhP81stbccFQE1fR5fa4il a3TpAOnqAFY6AXAwt61sXW qxykC6IHrlMi43KFggKVB5 WXejHPL8oZ== COMMENT (test code = j2pazJLmDMLsqMI2MoZpAH 5502) Pzc8tuz4OoyDBfyUEeJAcy tJUynbEjzj30fDZ1uK22JE 9jDTOkGdN4APSufoU5Qcr3 MDQwUDGygEWeB712k8aez2 rtijDxwVZ9rRwbVTOfwaqr TcX0VUvfSKFhbdobTVb6OB fyQRXhgDI2ACQjwKGgP1Th ZWNvOY6sphn4YQP6GThyBB SgUkD4PNRdoHEhUMXgdNyg PRxdj509MEC5ZrJvWCXbii KerIfqrQ7fNaHiDPHYvJHw cXT4xOHzpGfaRBjtk6Gdlb tbe0AbW3LcntmlJHpcdZSi vcUzkgEed6EwUG0qUPpgYT G7zP8qTSQfo0toHGJmK0Zy IV8lC0Uec4tsGBXgm2vzit UxIZV8cEDoTFKvqaPmmoZt ITE9mCZdcMCfvJIjfHCroK Dnw1GpmQH6hqWtjoXnfUU3 EGEtb9EqiA28KMGda77cEK Bhcn0= CPT Code(s) (test code k5omeKBoGIXnzUT6UeTyDX = 3357) Vii3tio2WslHJffPAiKGss tMAnbnHxrk78fCM1oR56GT 9xBSDiOzC6WJSorrL0Zis4 HGKwBXUjwJGgH229f9cyj6 djbjAlrBB1kXsvSMDcztzo IdZ8FOdcDKYbrfliEOi8UA uuEJPvtLA6PLLimYBkM3Ag IDEzBS3eepp7MQF9YNnuFV GuEiU3SEJsoSPfSZWzxYda SDpng561KGD4VsQdFBMicj FhgEwjbR3oLqQpMUM5GXVm NVxwYXJ9 CLINICAL HISTORY (test f3qojMKbSTFpnOB7JcZvJN code = 3356) Bzu9qrx4VocNXepHTyLCys xNZpxlQpfe62rRV3hB55TN 2jVENkCfI9JGGlajF2Ndt6 TQZwGTSmmZTdM953n1www8 gcjrKmkUH8yBpnKEWoypvn CvD1GJffDYTyybbwYRo7HF qjALBgxVN4AEGtoKPcP7Ex UPKwCL5cguy3ILJ1RXdtUU XuKjZ2BXYovGUcOYEfhDle OHgrq748UMI6ElJaVLTqbs GraDpcpP9wWtHvTKQrOXH4 Gn7uBG9wTF2owDGsmvdviu GwemCfhuEnwxIowrB0QSAy e1b1fACVJJb7BU7iORzGMF PszpHtYvdxnD7vbWwsmWXf KA22kW2faPDuw9FjyHBsZY lcuTulfkOhnaLrGRszjX0t kPjfQG7mTzG2GOscjfUcFO PrMTRnvA2jHDHdx1tamhAp YmRvbWluYWwgcGFpbiwgU0 9IQCNfhAtciFdrIMVrMG8z l7PqtrBnYHSmQUBeN8BcGX Vpo2BkAZZ3xfIoBWErTBN1 lIT0q76ueOydPNClVT9iAW NkFWhcHUEvJGyeMH2fZDWy nzYpX3WrVU0im1Aws2j+b2 2wcT9xV4iaI9aeTZY0 GROSS DESCRIPTION (test c8rcrZTnXEFcfVYLEZUqX2 code = 1020715362) nnqdFzISCkvBZbA9Yvfzgt TYisPI6uES9umZfphDXatQ CoGJ0KEJXcMcVbMNZpjYYa sbNzKaBiBROunPComXR1VN RvXE4urxkmXCuoKRbzORYw xhW2WEFehDLuC1RkOOMlZY 3ufekmIHO6EUtfeB0kggPG LhafVt2bwIOrxZklYlJdZk NoYXJzZXQwXGZuaWwgQXJp TZt0zW3AFymuNOQ9LOHHHa kcKRQiAZ7Ss0xiCQUvtBPh EQK3ZCftwVVoDUKcMKCsSF y1IFEcLDrroRSoZE5uwGgz YhoilSnmk2PnmUWsVNjjQO BnLCRvVJozAVClDI1RAsWo NQE9UVm6SINxJFl6JMn7IY 1LAhEwNCRaGCF5XDU9GjAa QLs1NCogNH5GXAT3MNK1DC alBoC8HPH7VuHjBYGjQgNi XGYgQXJpYWwgXFxmbCBcXG 1igFfmxFBjlrBNItRWUQG6 aXguXHBhciANClxlcGljTm VzdERvYzEgDQpcbHRycGFy XGxpbjBccmluMCANClxsdH PpjPmtftIbPSHxP5FwroLg IKqsLKNfel4piVcvQDdhGm XaJONrw1r9iTU1qWNbaGR2 vNPeqXvfCbEhNY2nnFAnXY 7jMTetIHoqznTfa1IoWX76 bWJlciBhbmQgImNlcnZpeC IgaXMgYSAwLjUgeCAwLjMg rTOaXiVjT21xxIXmJXwgGN gim10rcKI7gVDniQBnBnWq P42yldJfLJTkzOhoFNO7sL YqEZPut74rELP4Wf1apRCb GTSnicZ6l7GxOEueVFXpZb lsFIXtDJkkjHTxRH3OU3oc lPZoCLWHnzP4gzqmMOzTNF LKEAUrBZFITXtvyCpoxD1l FCmqqE5pNN7WAKUbSZraBV XbiZVUKUA8BY8xTNhudTJb litzICOyV7AzF9IgyeEmoJ MbJRDrdjVit3yeVZI3EFAb jUGegBTjAdJtYbgsXWE4NS kvf9rwMHK8OTFnmLTpwWBk KBgaKaXdTfaiYEOvB3AlH9 YuovH3EHw6 MICROSCOPIC DESCRIPTION w4mscBUwNDWmfXE6EuPlQT (test code = 3371) Xrz2akp4GkrHOshETvBOrn wJOxxvVucl03iSM6wK58FD 3eNRBbRqG6EVCsqmQ7Khu8 SFJaGQMjuAAxI410l3fbq8 lmlpFuoDL4fZbmBDBtnqit BgK8DPphCJXokrcmRXg8QD jvOTBdsBW7MQBhwBFiI2Wr DZXxSK6njcm5OHQ9NZnqBH MjRzG7LCFstUSvBEHefNvy TBzoz901XCQ4BaIsDIRytc FgpJsgoF9dIfNbNTRHHYHy f5DfJVTpSGZtah3= SPECIAL STUDIES (test d5celRBdCCIrz7atNJJrdE code = 3376) FuZzEwMzNcZnRuYmpcdWMx YAggzgMiKMzle5LxM2RjWp AwMFxhbnNpXGRlZmxhbmcx UZGfNOH5izDzFZTfPHjcPA LtJSqoLj2gxZIimTbwNbKp RFZon1btebTNosfhoBf0n3 quEFKmKjK2pXTgCTbuV1lm dwYnuVMsL0CrpSPkfDx4x4 bhPfHjZkF0tSTjNFeiS5tn tvBphGUyLIXyKVj8bW01LH HvfF5dfVXoDDodniPoRrN9 IIjkJKZvLnA7MTCxnORhXF IoJ8piMMAeSWgnVTFgSEgw wVVyRBS3nAgft4L0oRSlrS VinLkvYsNpToMkXgWNy7Vb UXk9jQohW7NlCWNaZvN1xO QgUGFyYWdyYXBoIEZvbnQ7 eZrbllLiy38rfCHiFFQmRU AnVdEjaTlqCIJjQKBPv0Vw wPxoAIK1lRo9uNxuHuehTI D4Ppq0WL7ucu44yyo9hKdi FCWtmxcoYkI4IUvqMZKkmd waCAv0ECdsSKIpjTV1BYPs jFQoI2GyFTUeWZ4ickv2GA B9RGrnKXCeEpH7HAGgdXZj WOHpbYyxQAeow931MIV0Gj EyWT0uW5Tid8Y4nN5rsUBh FJJykHLyWxGgPPVwpn7bpG QfGCucq3KbDUU8ccR8hKYq gLHaPIRcUN68Gplwr5FdMp qep4AnH82zuAG9QIwus5wt BV1oOoW3qmVaIRvid8miqY 3sEwZ9COcgVO3mVI9pXEGb vD8uzgzyNDBaNfTduvlrUL ZbeRoqdmCpDo7vnWnfQEZ3 NYtwJ6sqoC2mZaQ7DNieA0 kbvB7xHIy8FUxcdPL2UWBp jS3cKP3vpvxjs1yvLYcdEG kuBFKpalB2qmE9LXDioOQi J1QczF5gZLFhTF4sczchq6 wlZWO9XTkmWQLiFOB1YrZu TUCwp8Cqwle9FbIkk7SezN FqKJfgV69do608KKBahxFq A9cmrWOjwzkdiZKoykavGB ojiqZ3RNOtANUlYZszVZYo XGZzMjJcbGFuZzEwMzNcaG ljaFxmMVxkYmNoXGYxXGxv B4ugXpPdB6TfEGWvAuVrNP ssYWvreFHegMAgmSZ7wW8i XY0yHXFeqEZrB3BuGIXfjj VsfLIgFBI2tFUgxQVzWQ5f DMiacXEzy0xjd5GdW3sbcL fcrAH8TF3qRQMiCAGpPGjp n5DoqQ0mFmdteWAtbfwjXO xmczIyXGxhbmcxMDMzXGhp K8axLjIbBIGxvPxlPKvwt5 NoXGYxXGNmMlxmczIyXGx0 cmNoXHBhclxwYXJccGxhaW 6lPdQeEwHaDrvjOM8aIDAx G9tapAWqTZPuPFHiP6riAq SkiA0pwHzaEFmeMdXhBnIq HrMFb340zc5zRYEgfSYwwz EXbNZxlW9nEOesDIfgBXrn kKFjMXopc1yxBEBxm8t7sJ AhLCKkbfOvl9sdWZpmxlZl RLOouLUklBYhYMDar24iZS qrrAjjmOibTJRaa5YgzIac l9WsXrArWWagm7ZbU49bsO JvbCBzbGlkZXMgcnVuIGFs d56pt8qlWRJaMmZ3zQEehD A2fHJvjHFwc2ZreJmzXISf c4xwFKVvhi7nrfmvmNTfc0 IvhN2gktlfWZvtzXOwcsLl BUWcp2a4hBPbEOIeQVXsZC zluPk2IPSgz421jp9axxD8 gOYpOHW0PXixKYMbIBVgtc UgZXZhbHVhdGVkXHBsYWlu XGYxXGZzMjJcbGFuZzEwMz NcaGljaFxmMVxkYmNoXGYx MUkrH4mjKjWdI3DoQTEgUn VkjOCiB6cwxYPcFICaXMmb XGYxXGZzMjJcbGFuZzEwMz NcaGljaFxmMVxkYmNoXGYx KTdpT6rhScWfH2YrQZUcMf IgIFxwbGFpblxmMVxmczIy BAyqdpphNGAvIUftY4jdXh HpZBCpdTmcZOtqe7SyOJKl MUUzZlvfbgLwYCl4vzLuJY BhclxwbGFpblxmMVxmczIy RMzpvsvqBUTbHJqbC6qsPj MzPXEguDyzFSimt3GrARPk XGNmMlxmczIyIEltbXVub2 fdb5TaZ7ufyUsqiAV0KSRi B3qosVUuzHT6FTM3aZ9qPT qcyoAeBGPwp4KoKDJoGYMq BdQ9zA1sWVI1NlJZrQgjEJ BsYWluXGYxXGZzMjJcbGFu ZzEwMzNcaGljaFxmMVxkYm HgCWKfIUaaS3dpFxCcC7Vn OBTpLdXdfHwpUXacNEi9Rb xwbGFpblxmMVxmczIyXGxh amtgMXNmLLgiH4xxGdKwAH UdgLlrEGbhb9RsDBAeJQLu MlxmczIyIHMgTWVkaWNhbC JYWA89PMHfZIZlnSnyqU3k mARKETJsfaP5c3G9DLkpMR EpDFp1FFwmoqFxTKQecR6j NJLyPK7mLWs5wmWoFEOze3 GiKC7sWZBoeQNrADT8PISq u4OqW3Xjc4XrRLFwZSIcnw 9ywoLhMwQCkIUhKOBkih75 XYYaLS8dR7nhJDOnTMZowb UpnMCvj6FbITZryIT6cFNu IH8TVbFDs84hNWRbQRNSah AmEKWgrEpeeXS9zyL2eP3j LiBUaGUgRkRBIGhhcyBkZX Pkii4fyoWgGTBzSWLbu9If xPSshVIitoRgR6Fyi5BmTM Syrw31SNfjyAOxuu89RN6s I5Cvr8QhsF7lRNkiPFHpq1 UgaWShtHJyHDDby2DgG6xm lcwiVFowkRFxaG3nFSQhSS q3EDCti4IbLDGce4SpAtHc lvLdTOOuEABnXOMloD49AD I2bKpdyXjuccWwBL1iBTFm ueCoSLUwGPDpmU7kDEyjfm LfQIKrdwV1e2V9AQuuEWJg weCxHoezCIU1brAplvW5eI VrV7tyguddITbvFEPxi4My yY9bkIJQxNFox6QqqATucD JJoSUpJQ1vvcGnYI0sBYA0 ODggKENMSUEtODgpIGFzIH D1CWctWyseDND4yeWkGBBf v5XkZPpwI3meH07nxCxvgY y0sCEkfKnkpXDnjCWxJJFa iqN8m6W6ASYxf2TptdnqIC BsYWluXGYyXGZzMjJcbGFu ZzEwMzNcaGljaFxmMlxkYm FkEPZuFXbzQ5kxDdCuHkGl VbbyHXT4lT== [facility] [id number] 16:47:26 Test Item Value Reference Range Interpretation Comments Case Report (test code Surgical Pathology = 104) Report Case: [id number] Authorizing Provider: Nathaniel Dooley MD Collected: 02/26/2022 04:38 PM Ordering Location: [address] Received: 02/27/2022 07:57 AM Service Pathologist: Gene Cralton MD Specimen: Cervix DIAGNOSIS (test code = k1xrtTYzMYVzk7zhHGRacF 3220) FuZzEwMzNcZnRuYmpcdWMx IHtccnRmMVxlcGljOTYwMl kincRyULDbhLEgO4Ufzqgg DCtmKW6dIT4ztYnysCJwdL RaDSEqBeCfz9sxm834wMPo w9bvZXDPedzbwBq9eNfuR7 1ka8G2VhnpC76nxEYgOWN7 JUUvISJjsUJgXBLwKLA5ZZ RoaCDrL6xpFBKeJQ7qiqjs ZFedOJneOCRqqUK2EZQgkI ApA1HgXQRfVSndOLEobly3 RiHfPw7nhLVzmYlmKGkzHD CkSOKtZJkkTHKnSvRpL2DM BhyWNCFDJSQCBHDDPZ3LF5 r7CKQzaml0HVBuQRPTQKLY ClADE4uDXIVXOvVDGJNTAA PsJ6MnG3KUGS9PWXPuX2BD FTQTDKSWAN4GKWKjWOKsPZ Rdw82jTF64HTiaBDI4y3aj dGYxXHNzdGUxODAwMFxhbn NpXGRlZmxhbmcxMDMzXGZ0 bmJqXHVjMVxkZWZmMHtcZm 4wpSObdMykNlNgKFDfa6xh kkHMaisdvFw4s6nmAIBdSw Y8oYKpDYxoQ4ejnoXctDGm GMYdLGm0bE13LYCleT7zhQ VdCGxbtrXrTwF9NSdlKDBo EvW7JVFtgCIbOJShF2ejQQ QwXGdyZWVuMFxibHVlMCA7 hDtrq4L8wYFtdMEpeIxwPs YuVyRyVwBXn8IpGQb5wWdu M5SnANCzDmB1fHYhLSDlXF ilJKSuDGRlwgZ5yF17TYcb fjI6fWAvc8Gcv44fc602jZ 4qnVQtYPW4UYWgBVLmcWRm WHYrTYC1CBLvrPZzC2vsYU RbTG4ctevfBUifTRdcDAJa aDQ8JMIvoVNsC1YsQFNlZQ viIKMuzwy1GxRaNr6xkGNn yUpmTAavi3nfq4fgjNWfZb t1IROqFfRfMspvEWslk2Ss w5naCVDuqw8bSIJ9gOAvfS ulw9V9kMIdJDWbzUBxYNZd QZ6oaUSeAVJvxB2mqsdcJB BnYnJkcmhlYWRccGdicmRy Au2rjSmqPAP6ENnmR3pysA 6gSnC6QYtyB2jjdQ2sLRv3 RDwhWAZnrBK3kdU7QQDmcV MiA5NhuL4aIDGtGI0oikc8 l9rkTKF8RRffOXIpQqB9ea A8MPNhsPFjJTRfjYfdBFjy k788VOM7ZcLrKJNop9TzZ9 WjyLeiU79zmXeoC42oZRGb sEgwiL7clGfssH1jLuWlDb KaPVtbcRpqRE9dMTCeZ8bp wRWkNEDsGSOhI4icCjHbqV 4dwGjrSMapmzLvYWGbWzb5 VYNugAZfIXKvCow7IDTnGL FoD43ycsxdOEE0xS5al7fh h7ObWJekLRW1DMVtd50mOD sbpbK4QHghUu62QImfYVE1 TNwaRXD7pX== COMMENT (test code = x1jiyCOnDUZrrUW0UaXdVR 3354) Qly2eyc4PbiSAwlYJaFBtw kYJwplBvbx71tUK8tR42UE 3vJDGdZhK8YQMpnxH6Hhe3 CWSxAJLrzTYgC204r3gyf6 notvLwfMK6oMadEUWxsebg JeR0LMulRYCuccokPXa8TY kpBJHzzTO9EGScvBMqI4Uz ACJmRE5qxum8JOK6STsqDJ UtNoA0LJUnbHWoCJCjnSmt JNclh999JRV6CwChCMLhup QtsXuxvI6hXqIwTHBUbBMq eEO1wBBjeQddMPmbl4Idsk yrd2IyR2BlzpliODgbwGEb zxMiakKos0NdHY7eKOykVO H4aE5qNGRmf6xyRBUqY5Do ON3dG4Iqg8pzCPDtb4nows HfZNL7bXTuNXTqphEsmqEb SUJ9lVWaiDVqnIBkaTXckQ Yzp2LonLJ4yiHubtRoiMO9 SNAgs0UjfY22YFRqn85oPT Bhcn0= CPT Code(s) (test code x3pfvWZsTURxqHE1UhDtLI = 8042) Ojm4sgd6JodFLflIDyQAfb vILctnDjmy75lPS9tK33PF 3dRXChTzI7MXGpjuK5Mgu8 JMVpQYPloTOfM757v2trb9 ishdZexPH6rSttXRLmtlfk BwT9LJduAYUgzqfbKRn5QQ odKZDrfOC5MZOsvRXrT0Xp RVIcPB8pbrp0CEJ3LTefKD IuNzZ1ILLzzWZzMYGveWnc NEhjr142DLK5IrHfJYTdjz TmgEuhrL5oSwGsQWA9WAHv NVxwYXJ9 CLINICAL HISTORY (test j3uecORxTQKycVN7WgIrYV code = 3356) Hyg8dfo3ZdjMAkiVThXWgl nKCjnvNpac42aRM0fO16VQ 6tHDSpXxL4PZPvuoX8Pap0 GZTnVDRibVKkB851y2ant5 eqzoGmoOR2lNmfAYJowrve NiL0IYcrLMRmmsibZPm6QX qqKWLncME8BQAiyLLkZ9Gf BJTvDF8jyav1SSD5RAtpYX DyMvN4FHHjbRJrXLUtlLjx WMmxb691PKP3GbXkFKPgxr ZmtIyxlN8fZkGzBQBrZAB2 Px2lFT5oWI1hnHWyqejacn EgzmSeorWrhyExduA9KPBp s2b6gGCBIOw0DI9lYJmCHB MucjHkYjschC4hwDubpMHi UD30iT7mxVVwh4HkuQTuID rryUphqqVkfsOmRIgkpW3o sVvlKH6jAyZ0UKbdlvHnGC JhEXTlbD6pQVUtt0globJg YmRvbWluYWwgcGFpbiwgU0 2MVQWzoWwssUxqARHuUT1u z3KcoiOmJTOoUHMlF3BcFS Stq0GeOLO7hcVbQKOtTRY9 dPZ2b70dmFxaZYOeNG7lWA IbLGacHCBeLXkjQS9yTTBx dlDvB6KtUD5oe0Iuw8h+b2 9aiO8aH4pmL6daNJA1 GROSS DESCRIPTION (test p8aajMBuIEFnqLZAEMDmL6 code = [id number]) ersuPpITLskOFeF0Vgdjvh UQzaVN7gQV7ylVajvDAsdM AjUD4ZFKAgToIhHVZgtUTc tsNtVbQgNIUmjSHciCL1FN PwER3vhkpnSUfmGRsaMRQl rnZ5BRNaiXAsB5BwVAVrEQ 8tjdkiYIL3CBptxO8msdKI MermYz0ceJAcsCmhSwLeFn NoYXJzZXQwXGZuaWwgQXJp TUk3tQ0NXtgtICL4NLNUBv ipHPQhEX2Sj5azFLSozSAk RMH8IYthrJUsIFVkRFSbAK p9SGTwFOhogSLfQB2yqJzf EfityLmjc2KbgNImHJueYU RdJKIrRCuaULMsJS1QVoPi CEI0IXa8WGApLJq0HTv5YW 0XQpIxISKcRRG4XAC4QdUd AXy6PKjiSV5CCFD3PMM7JT ffQxG8ULY2VkLzUQLmErIl XGYgQXJpYWwgXFxmbCBcXG 3ibSmibBTbvrMNDwIQLZT7 aXguXHBhciANClxlcGljTm VzdERvYzEgDQpcbHRycGFy XGxpbjBccmluMCANClxsdH NsdYpxwxQkHKTdX6FjlpIr FKvsTVAbrn5qaQliVIfqQq GkEERnh1f5zPD2cCWstWI1 uKFbkRfiZdAoEI5snKWfOL 0lSTstBBlaesJke8QjUK92 bWJlciBhbmQgImNlcnZpeC IgaXMgYSAwLjUgeCAwLjMg lMGxSdVaC89cgNEeTHqlWB uiq38vrZM5wXKhpRXlVoNn Y22dmgOnCIUbfOnwLRV8tW DaXZWbm44zVZT4Qc7ilZVr PKWzuxP8b8AcXNhcZUKqBf qsYJTrYEgpkOYeHK7VB5yt rNFxMXZDymQ8smofHVhHEP MFFAQzBJXPRRprsRkpjK4t PPwgwD0oKY5EPMDlJCniMN DepLPVFPV1ZD8sNSpzvMCx ebfdARWuI3NgV5TsurGmzM QsSDOobpOss1noILA1HBGd iVRicCDnKmCpZhdiOVO4AJ vaw6ouJUL8NUGjbTJupAMc IYlhWbBlYfipAGZpC5IaA8 RywkJ2EXe7 MICROSCOPIC DESCRIPTION y0umzMPyEIIjiAX4ZdUvQM (test code = 3371) Zgy0lix2VssJWljBSjGMib pONlhfFrld09bMH7aQ52TX 9hIBBfVnS0HPGbffP5Eyb0 TVAaAKMocJBiI788a4wll6 jtdkJrtXW8aDlcBMIwhati IrU3JRjxUWQbulttTLu7JP jaWXUcsXH7GSYgoHZoI8Oz AWNiAI8nzgp0BGK8IFlpWM TeThN3YBWowBMtGMVtxGrd BEcbm357IRH0FlNdXQEktn MgrMablQ3lDlJqRLXMQYRz q4GrBNRdLKWbpm0= SPECIAL STUDIES (test j8uxcKTnMRJht1riGPKodU code = 3376) FuZzEwMzNcZnRuYmpcdWMx MRxqigTwCSuaf6YzI4LtGv AwMFxhbnNpXGRlZmxhbmcx LJRaWMQ3hkRoUKJzJFbjVS XbDEmlAj0ewMCkoKalTkGe TXGbu0ndiwXGsqufxWj3e6 cmTFWzPuX5xWQbJKdpF5po ccWkhGKqH5EouQIhfLp2e6 adNdSeLtZ5qVEgNQkeA6sx czOtkRNrZREsTAq9oA11PW ZwkW6qlBGwKBlqkfImHcI1 FRlnHNHuEeK3LSGdtLQyKQ KeW4ixQPChCLvuUEFyCLbq eIGbHEG0aSxtp9X9iPAypC YjzGbtJyMuItVcMdTOq7Ij CQb3jWlzJ7QjEIIbIcS9uC QgUGFyYWdyYXBoIEZvbnQ7 fUxevyGyg98smWAaLMHcUA SiOsArzHssXRHeBDTRn0Cp lYibZND1xHc8mQgoHaeqYE K6Ftz9EV7rkc34yiz8kXyx HAKjjhlbWqK0CTygCWZgjb suCHc6CIwcADQexOW1PBCp dNMmB0MqMFFvRH8umrb2GZ T2LWbmXCWkBgM6KWPycGWg CDZsvVpmLFzgm332TWX3Yr XhDL6lJ0Qea2C0qR4ojCMj CRWzcVRnBaVcGKXylq1taX PbPTzuo9QiFBG6hsG4fWQz bVXgBZGuUU24Coyva7CyPc emg3YeM06khRA0XLesf8pm IM2kEeG9scXbQHmgu9eksA 6eFxU3AGukWY1hSE8bUPQb wN4otedgWLByTeFbhbnwMJ MmuEyfxaFnTe6niRnaZKO2 PGgoF2qvxE7aTmY4WMrxP1 xopT1rJEo7KKibvLW9MDZi rM9iUH8qlvsef1aaPFlbFW ywAXOybfK8weB3VKTqcYGn Y5IyfA5bIUSkFZ7yekyqn4 spMEA6BHgkTVLsRXV3GiYr XYKhp5Pdmpu0EdTgv6HunJ ZyWUhwG82ml696CEUholJu A1qsgBLetpzmbENcwppwWZ zvufH2ANGxOHPeXNexFESy XGZzMjJcbGFuZzEwMzNcaG ljaFxmMVxkYmNoXGYxXGxv O9wtKmJfU5UhAAQlIcPiYO bjWKacsWWkuGJizEQ2nV6f MH3qBZGllMXzX3PlQRRoow CfiJKzLHV9oKSmqYMfRG5j IWhuuIDea5dzw1GvB4tkpM yyyAT3OH5qISZrPJRbBFvh n2EcrB1bTheiwMFsunjyKP xmczIyXGxhbmcxMDMzXGhp U8umPpCyCNGgyRrkYPqhx8 NoXGYxXGNmMlxmczIyXGx0 cmNoXHBhclxwYXJccGxhaW 6oUeKtXaCyHtjdIP4mYAEn J4uslYNrBOUnOFAnN5aqDx ZotI8eaEtlEZceGpIjUxTn JzNBp383sp1uKIZpzTCqhq GXmCFzkP6nFDdrYWggDYax xIAqFZuyy8iqVMGqk4i4gT IhIPYsqpUjs2ltJYxkzxBv RCKbyLWpzVTlMQZcv81iJU jghEdncCxfGQPkl7DijYhz x5LuCsDyUPoaf3EjP83xiS JvbCBzbGlkZXMgcnVuIGFs r83mb8ttECQeLkA9sCYyjS C6oVMskGNfr9EwbYvmDVDz v6ouMEYzns0qrypldVFld7 MviH3mdzdgPImzoNFvrkDe BATie5x7nMApUWCbOCItLT jmuZt9HEDuk373cm6ttyG9 wIFxWXS2NXfgKSYxXLNeer UgZXZhbHVhdGVkXHBsYWlu XGYxXGZzMjJcbGFuZzEwMz NcaGljaFxmMVxkYmNoXGYx GHmaX4nzCbTdT0QrRIBqSy InwGThJ2zahVGdMDWgIFco XGYxXGZzMjJcbGFuZzEwMz NcaGljaFxmMVxkYmNoXGYx WZtpL1vxUjIiA4JcBTItZt IgIFxwbGFpblxmMVxmczIy VHeqkqpvIKOiKFwvG0cfQh CpCRQwiStcRDnmn8UkRSIu GEOcUqwxanUqGXz7irBxZS BhclxwbGFpblxmMVxmczIy ILykuglzKYNjROukL1tfDx ZhRHPkhItqCKagj8CeVMOw XGNmMlxmczIyIEltbXVub2 erk9NlZ0ggtOfylII2MEKq I9scuSNpkWR0CPL0lK5nQD guwgDnXJVec2RpURHrRGUn ZdO6tK7vDRZ3LxHTcFupAS BsYWluXGYxXGZzMjJcbGFu ZzEwMzNcaGljaFxmMVxkYm UlSLPtJOfeK9qoApGmA9Ae UQOxGmUsaIjxIIujFJq9Dn xwbGFpblxmMVxmczIyXGxh ugatZORkOLevG2ljRxLgGL NliWzfCJxyg9TtKEQlMULf MlxmczIyIHMgTWVkaWNhbC QWTY05HXPtQCIhvWaqvI5l bHEVJWIomfH5v1R6VBdzTQ DkXNy3DLuicuOrLLVelG0b XMUdWL6yVMd0eyMbDZCcb7 GvWH0eTVKslGXnPWW7VDZm v4DkX5Ggt3FqFNJlDKXccu 3qsnZcAyREoGZnZJAcqm16 JWInYM3gW4owFRPqLMXwbf VdfWIoy0SfXVRziGS2mWRf EF2BQaXHy81eSWOsQTTFzg EbAQFiiGrcyWC5iyB6fI2j LiBUaGUgRkRBIGhhcyBkZX Evec6zziAbWJWeZRMkp1Sd aWOiiPEjkdPoD3Twq4AvOK Ikpt58YVdpeCBanq78GP7j V6Obq9OvoQ2fOArwSIGdv5 CoqRSvyFUoEOYwm0JnH4jj fxgmWVmopBVpxZ5aSECwZU t7LKMxn9HoKUPho9YcWxYl nfTzQWVeSCJfOODmbO13DR Q3yNecxSezknJwQF7tUOWl pfDuIRGuOTIviU5bAHwtqy LbHVSnnwH3f2K4BRfyERNt xoFoMlslDNA6jdMpmdD7eW ZcV1udxzmiVEfzVITyi9Pi uM7kfGFYdCJtb7QkjRSduR HPiOZdDV9rysGzTF5bVQV1 ODggKENMSUEtODgpIGFzIH Y5EZeyQpswXSG6juAqROJf g1TzTYvtT9peP29ceRvenU a7mZFgsCfyfDPhaWTtUUTm yjH9z6D3IBCgx0GriecmGU BsYWluXGYyXGZzMjJcbGFu ZzEwMzNcaGljaFxmMlxkYm LpUNLyITfoO5riCsKjRbQp IlcsCDQ6yT== [facility] [id number] 16:47:26 Test Item Value Reference Range Interpretation Comments Case Report (test code Surgical Pathology = 104) Report Case: [id number] Authorizing Provider: Nathaniel Dooley MD Collected: 02/26/2022 04:38 PM Ordering Location: [address] Received: 02/27/2022 07:57 AM Service Pathologist: Gene Carlton MD Specimen: Cervix DIAGNOSIS (test code = o1olqOYeGQBgv2dyZGBebH 3220) FuZzEwMzNcZnRuYmpcdWMx IHtccnRmMVxlcGljOTYwMl jhetCwGGEbsKIqW7Dymawu TWuiWF5nKE0sjXgwoYFplA SwRDGwZqKch0ooo926qQDk y1rzIQFTzlzgsLf1uYknT1 9mx9X3VmaaA29aeVWgLXW2 NADsMFDkmDXwIVBpXEM7VY BusUQsT2opEKVoJM8uidrg HSlqJHetAWFnnPM1WXScrB PoD4MrVNAeTJffQDRxdmu2 XoPnNe6omFLxcYcvOQwhQT YjQVKeVZznUPAiJiHlB2OX RhyRVHVMAGWJTCXAMD6UL3 y1ZAYednw4UPBhWUKVOIRQ OhMEJ2iAIWQRGrQTZDDRID MuS2SeQ8RTZS3CGUXvV0DE FPADCFSLGJ7CKWGwRTQuWJ Tim79iBT26JWfhVLG4f0fk dGYxXHNzdGUxODAwMFxhbn NpXGRlZmxhbmcxMDMzXGZ0 bmJqXHVjMVxkZWZmMHtcZm 4kcGIwyMrqHsUbSBIib4gg xiJTpskqqYu9b8smZOJwUz C9rCRfVRrhK7slcvMvvKCv TZTxJNq9kS48XGUdcR7zyZ JhRHlcsxCzYcD4EFfqEFWg PvD4IFFxwYQcVZMpF5hvZJ QwXGdyZWVuMFxibHVlMCA7 tBfqk1I7bOWxxLHbxIgiBn TtAzSdPjNRe7LtPYl8pEbz S8UrYKTjHwC5qNBbXMKxNS yoSBMeLBYlnlQ5lQ19RUuz fxK0kOUiy6Sqn79tf131kR 8ajJBoUYR4CSOhLNArnAMc SHWlAYT8SKYkzZBoD0tyZN NrDE5hyssqVMxyPQkjLCDu eTH9BRLiwPReB9WuRBQoMG gdVIUtqjc1LyNgQc4wnUJx fNtcEAxye3yqc8rdoZGiWg a9JWTxDnUxPdpgYIaqx9Wh l1usFQJsgb6yMGL2dIEifA jdw4O1nOQhOQBoaMUlJHCe DJ7nrGMvHKMxtS7iatovZI BnYnJkcmhlYWRccGdicmRy Ki6xsTjbSMO5JCkjW9rmwU 4xUrB5HNdmS1cgwT5mXIf1 OLkaOQZggTA2kbJ4PSSuhC OyU1GteI0pZBWuNB5hvui1 z5wmXDJ3ZDbeJLVoZeW7ef K9CXKjaHYwGJFmrRweFDgo k343NVW5KcIfQZClf2VrH3 KdxOutV70rcZmuC55iYMDh mZayoL8siHqnsD2jNpJoOh KjUZceyXwwFU6aAEShU5mc aDIaWAUqDTHxT1voWmFxnM 4kxEukVFjgwxYyBLVnToc4 JZOfgZEbZYGlWco2MKAtDZ CvJ07yloudMON0cV7lg8ps b3ErGLewWRZ8NBJnq67gIL xyhsT2BFipPn91DKfcAOF4 LTzpLQA3uL== COMMENT (test code = h9ardYFhHLDzwPD8RoVuFD 3119) Osu3qic7NswNGzeZAmDJwp hMIwbaTfml28xZW4mF22KI 6aDVTnOdF5OBOnxhT7Png8 ZXQuBYLqfWXwG813g7eej4 vhcoEagVU0wXnuPNAlgcbp PvL2YEouGTFtgnnsXLv9VX iuSNMcfPK2XKQzyOBkN0Lb ZTYmWY0bvqt4BSY4UExqOX FhEfP4QAJtfKWdQTWrcKkv TKpix847QEM3BjObMOPenp PvyXwxqE5fXtKsBJSBzHRj hLJ1sRRwgDbuSMnjz2Ruar zjq2YrI7ZzkvefYMainLTc cyByqoMcg8HsAV4wXWadSH L5mR0bWMRbe7bgKGDiK9Vv FF3cD0Jqj4naIWLxh3ware UnYNS2nIRoSWFeseHlavVk MTX4lXTyhDDzhVEyiPUhtX Ays2HpdGK7gvHavoSjmNZ9 HTGiz4EnpY07MHWag07mIM Bhcn0= CPT Code(s) (test code l3tdnPQqVEMqgSI2ZiOiKY = 3357) Rsf5bll8IphSVsnJLnUAkl tVMuszEgzy68bKA8aU14UN 4nJADrWqK4WYEoqaZ8Ngl1 HVUvOZGziUTzX181t7nfr3 kjtoMpwHC3jXhkRGSwhbpr PhC5UOxdUEZrmlcyVVe2FG meVLLwvAV8LAAcyVSaZ3Ol ZNSjQQ1weps2NKP1PZukED UeAjS0CBAjlGFhPDPmvRqy BIgpt570BUZ2PeRoTLGsyo OuuPnlxF9xXkPkLJT4IQEm NVxwYXJ9 CLINICAL HISTORY (test f3qzmSAnRIFuxYZ3ReIaHN code = 3356) Kze5dbk5NhcCVopOAnVRfo iCXekbOffr19bWL7yK57QZ 9sQOYfGeD0IBMgtwY2Tvo1 UEJqPAFiuLTlF434q0hzf2 nwkvJwjRO7fGrqNCQqxqta HrJ2KVxpSYSxftxwXXg7XK hdTZPnhVK0TQTkpNMqH6Mx HVUlQV5uajj7JDK6DDcwTR DmHtY7QYQrvRNbWDFuaGkd SAivs662FEF6IoMvOJCfoz MniAzfbI8gQxEfYOYxFFL5 Nn1xRV5hLX8biXNvbbdotn BegbXkhzIibkHjomU2ENOk x5h4kRPBESm4VY6wDImUQD KnzeQeAahemK5qeFfcgTJa KL65cY7qjRBoj7EmqJRmLK akkWcugyQfybArJMmqcA2v uLemYU2pKmN7KRygajFaEL KkSBYamC7lSWBbw7kfsrLc YmRvbWluYWwgcGFpbiwgU0 4IECHebElknEvuUVPrOA6b r8XulpKfMXKiIRKpN9SeVX Fsl4YhOHM3ixLmOBFjFNS4 iVA9e59khOzqVUZdBC1qER VbMYhuUKVvWVjhVK3bSGVv mrVpY8YhLT6gy5Iok4t+b2 1ecX1kP8nbX4hlMXH0 GROSS DESCRIPTION (test r2bcqHSzWRIkcGPWHSJfM3 code = [id number]) zwmqIuZBPcyJThE4Bgivxy UAjcYW2vUT2reEowxONssD GeCZ2PPEUaIvVmSXImsVBm ulCkGiLpROIjqDEyaWB8OJ WkBY9znfcuXYwiKXscGXGt voE6VVSkkHBtZ6DfKNYnTT 7egzgwAPE6QFzzgX9bueCG YojeTm2euCVxlXpiQrWaHo NoYXJzZXQwXGZuaWwgQXJp YWh2vK5HBlkeXIJ1SPIMEn wdTDYoFA7Qm7zzXXHxtZFn XTW0XGtdsWRuNXOdNREbKI g1PGKhBLltoGPkHP4rgXho BxbgtRsdk3OdxWXqRYhzDZ IrSAVqPQcdZIVtYZ7EIkEr FQZ7IDk0NZKrAJh6IYf5BQ 3DVpAvWFVuQFQ3TUQ3OkRu YJh5KJvaIG5QPLD0DNJ4TC wjNvN0QPL5IqZyOTEaWyUu XGYgQXJpYWwgXFxmbCBcXG 5bqUeydAWnlmBDXkNLDWU6 aXguXHBhciANClxlcGljTm VzdERvYzEgDQpcbHRycGFy XGxpbjBccmluMCANClxsdH DwnJhxouKsPJQeV6SmfhLr ZZmpJJSdkz8ebKnhIGieNi VhDAKba2v1mSI9xUFxtNY7 bIWarQlqNsEvQB3ulBErIU 1sMAlvFBinxpYtv3PuOB86 bWJlciBhbmQgImNlcnZpeC IgaXMgYSAwLjUgeCAwLjMg eRAdItDlM42ikHOiBQkwTO gwe58pxPW6nNQxiACkHfIw V60nmeLoAVGrrSzhEBY2sJ KrRIFun50sYGS1Is2zmQFv YNOdanK7w1AcKAwrXIRsZe uvTQMaLVlhnHNjWX5PK6eh bJJlAQTVsdN8tdcoLRnIXR WTAPTmEXQKYRsbhVaakQ4q AAjwzI6wFQ4ZVARiQRtxQB IbzMTULII1OK5wKOrgxVWp qxorJUGjG1FjC0OwkaYdwD RzKTMpyjRhj5ltXES2GGNa hOHazAKcQjYmSvnlLYB3RG pyt0liDMP7CFNocTIsvVFn DTpoYbCdVoueOFMlA5UhJ6 KpjoZ0MQs0 MICROSCOPIC DESCRIPTION r8wwyDLsGAAhaCN2CiAbPH (test code = 3371) Nnt3jwa2KnzBFmbNZpEAps iXHcasBvxa52xGM0yX27KH 5xPDPzNnU3IMUhzfN4Jki5 OXFiIPHhvMVjO089w8sna3 xytwVwtAA2rKegRPBjzjpy LeO2XOtjYHLkqpomVUr7NG kcJEXzsUC9XVNzrGXxP4Xw DPFnPL3pimo1QMC9FUmuJK EmOcQ8JOLfmEKgREDznOgc NLium330LKF0LsGdLPGkbn MflOsyqC9wJvFzDEOIQYCg i2UxIMOyZEHvxl8= SPECIAL STUDIES (test u4lalFAgIBJpg9gsGYTfsZ code = 3376) FuZzEwMzNcZnRuYmpcdWMx TVruzqRoGEcnq2GgG2IaXv AwMFxhbnNpXGRlZmxhbmcx FRVaASA0uyXeFSZbDHsqMF KeAYasTd7pnORgzXhgYiZy KJTre5nfpuBLzepngZg6z0 tsAWQrWpX2fGYfYSqqJ0cb klEubTCdH5VhgFAamQb9o8 bxEfFyFrP4eXKqCKmhY9ax lgVozGWcXTZhJCt0hC91ZZ QdbJ3tlLKwMBpyypSzZdX2 AOglGJQiKiZ9CDSloZSrVE AuP3gwLUZkOAnjEWGvMAak gCQaEJH9vVpvw8B7hVXynP LeuJgbEyJaBaCaWbISx2Eg AIi0eKnfQ7KqCZHzYaQ5cE QgUGFyYWdyYXBoIEZvbnQ7 yCinyjWbd05zdPQwFVCaER RgGrHllUiyTZDyOHHYt3Ff fNdaGAF6uOz2kSimQrwwKW O8Ujl1XM7qli31rne1lLhp QELkrsmcRrO0QGxnLWJjjt tlEIn3LCrbYBZtxVJ0TFBr eRIrH6OdLEMsET0lyve9RB L1TKjhLKDsKgM4MWWcqQMs VENmrZpoRVjsr566LOL8Hg AsCU1tZ1Apd1D8rX6zcNFx UBCwwCWkDhBpEQAnci8hzV DhPRkeb6UiLUO1jnP3qJTm wMHcTWApVI63Ucffb4IzTw dnx4QwT19hmRC1AMbtm7rm TD1wChD3umEtCEccq6xhiN 3oDqW8ELbwAL4qBL1yIQVh nL1avyinYGJuLtQiikcbZP QtkXmnriHqPf3vfXrmVYJ1 JEcvN1bcgV9gDjK5WOsfU4 kkrC9aUGn0RFqspCU3ZLFm cY8yCY1tcntmm7hbFGsiNN rrCSDhpjE6baU6CJKyjAOf I5GeqU0kCEWgBW2xxgdis4 pnSZR6XEgtPCSeFRV6KxQe OKCsl8Kbkci3WsLtf8UmuP PdRQnyX69rl598CWOpkzDc N2dzbEHytwyqhIQlvxwrQP dodkN6ALTaGRZyMIfrENYe XGZzMjJcbGFuZzEwMzNcaG ljaFxmMVxkYmNoXGYxXGxv S0azSiDtI9QwUZTcVjTgQE bxDCwnjSGrzLZfyPU2xF4f VP7pBWFpbTHvB7LbVWKyvp GzlEZsPRR1ePSiaULaSF7q WBwufFKpm7iud7IxE0pzuH xhkKG6LM2mSVZqWRRfARrz i0EpqF3xHyscbPJmqkhtIH xmczIyXGxhbmcxMDMzXGhp U1wdHcZaWDVgzJumPXznm9 NoXGYxXGNmMlxmczIyXGx0 cmNoXHBhclxwYXJccGxhaW 1vEoFzVzAkZggbPK3gGUOs B2wpcFBvFMPbMQXxJ4evFf SelV0oeCqrDPygPeNeXhKi OeBLh015wx4lYMHfkOTsvi RNwIWhjI9jTYnpGIheASeh xRDvXPiea0yqTFDbp4b5lJ FsXKJjizWvy4sfSRkbtwLa TIGapNMvdLMiKLPqm26iDU fmoHpbnVrpAOMvz6UygRqt n3XwFkUfGJudq1DxN92qrY JvbCBzbGlkZXMgcnVuIGFs r09gy2giDSDrBpB4eABorZ F4jMYbmNAhp3PwiEwxOWUx v4zzRVEyqn3hcvrvoMZil9 YuxO8dklfmKPjmaJSbavZj RNAju1e4zBAmXGIzUXImBE nrrKz2XBMue640ne3btwV6 yMNqVTC3DFgjVGYyVAAhtp UgZXZhbHVhdGVkXHBsYWlu XGYxXGZzMjJcbGFuZzEwMz NcaGljaFxmMVxkYmNoXGYx XNleY7uuCfCxZ3JyJHMvOi NxvBKbI1vfsTHfMDRjMEjz XGYxXGZzMjJcbGFuZzEwMz NcaGljaFxmMVxkYmNoXGYx TOhcF0stJaNiL2AoPXIgKr IgIFxwbGFpblxmMVxmczIy VRadwidsGSGzZYsvL5muGd WxBBOlzXseWDhej0NdDYCa SCVlJimkykTcPGa6dxSlGD BhclxwbGFpblxmMVxmczIy PRcxwwtpKEZnFCbaJ8lcMm WlQFSobOvgGWmfj0JuKUKe XGNmMlxmczIyIEltbXVub2 gfa2AkC8sigLcooUB3OWKw E5rbgKHlmCE7QIS8jU4rSF pfjaBqAECrm4ZnQDGmEDVd NrW9tP5tCQR0KdDEeXnyYF BsYWluXGYxXGZzMjJcbGFu ZzEwMzNcaGljaFxmMVxkYm DbHVPqLNrvO2mcQxRzG3By ZPHmHqDpoUuoEEgmSKa6Ix xwbGFpblxmMVxmczIyXGxh xlhuJRRkEAyvK4ftXjCzQA OvjSqjHQowy0ViWIGsRWWy MlxmczIyIHMgTWVkaWNhbC BJAL58HBOaRJLfiDzpbF4d rXVDAEEzozW4n4U4JJwpES WvOYr7MStuqvAhQTErkG9s WNLpHB6cOAt1ogCiQVBeo8 DfZR3zKVXukSSbSNV1NEZd e7EwJ3Mvl0QoWYYnSROtxy 4hqyMgIlZWeAEaJXGrjc17 KIFuHU8qR6tiJAHqOJDkax AowUWob0HzGNHziSQ0zDEx HN0OAuLLr99yDVUrOBBLmy OyZQLztHeiqLE5axZ8uG2i LiBUaGUgRkRBIGhhcyBkZX Ebgr5kmuOiXQStMRPdh2Qk qEMwdHPgwxCpZ2Tmc9TcBM Hnqv50ZWpefFBldg38YX6f G8Flb3EajP8rDCgcAEVbi7 HjaRNuiJEwKNFct6UbF8cz dqrbAMdjzAQivI8rKAFxNE w9XMMft6XtZQWra6DrPvHx kqQcWRIhEIClGJJnoD14JZ Y7gVxsmDdgwnLkSA1dOCJr spApEWVfOXAzsH1gPKerka LvMPEzloO1b8A7PKgiXJHk zpViTmtdKJO7lrBaxcH6gK XkE8tzgkipFRwmRALir6Hj wH0pcSKSrGOdu5IqhDNnaW OCmEDfDQ5vhhRlZB7uJYP5 ODggKENMSUEtODgpIGFzIH O4PJyrRudiSKT6nfFhNOBf x1DlYAkrS5bkW29dmOwylJ y0cNAhtQbgtSSsnCFnXNVc rnL0l7F8PQBlt8BeaffnXD BsYWluXGYyXGZzMjJcbGFu ZzEwMzNcaGljaFxmMlxkYm KrCQAvHWofQ2bbPdPkBzUd ZvgtMMT8uJ== [facility] Park[facility]issue [id number] 16:47:26 Test Item Value Reference Range Interpretation Comments Case Report (test code Surgical Pathology = 104) Report Case: [id number] Authorizing Provider: Nathaniel Dooley MD Collected: 02/26/2022 04:38 PM Ordering Location: [address] Received: 02/27/2022 07:57 AM Service Pathologist: Gene Carlton MD Specimen: Cervix DIAGNOSIS (test code = [id number] 3220) FuZzEwMzNcZnRuYmpcdWMx IHtccnRmMVxlcGljOTYwMl dltcIaZVZppRCeL0Cpxltg BMuiJS3vQJ8ntBmvnBScsF HgOTYuPfIqi8jps786lUEm s9ioSDPMaoqtuDm3cPivR4 8hg7O3ZzigW01qlUOeNCN6 RXLgCUKimGIrDPIyQSR9XK YgvGXcA3rpHKPqCG0soizl IKmyFYdwQGZoaQS6WHDorW UhH5YdOJKrFEcfSAJdqxq4 NhQeCa2wbLUbaZrqMZzfGE ChXLCpZTovIWZvSfOhO5UO GajRURBHQRRSQICGFO5RP8 f0FMKymqk0RWPvRNYEKVOT ZhRHF6kSHFULMpBCFZXQPU OeV8DaO2XVMW0XSNQnJ0QO OVKNOMXYCP6QOMFqXOZfCO Zyx05rUS57ZYbgMKS5x7hs dGYxXHNzdGUxODAwMFxhbn NpXGRlZmxhbmcxMDMzXGZ0 bmJqXHVjMVxkZWZmMHtcZm 1npMZgvXzqRgTkVRDdk9jk spQAetvwrVd8f8fqOBEeKm B2oBFzSXohU8aodtCtkHBw RNYvJAi9vU58REAmuN2vaD CuUQnfilQfDjE5QLcxXONv DoE8JPTknFJnKVSgN1beHY QwXGdyZWVuMFxibHVlMCA7 rKkbc0M3hUHzgMCvtWsbNp EoLyVtEeBUr0GnRBs1mKbr R6XuSUPsNgE6iXYlRLUyJQ saDFCcXNLdcpE1lN98MNqk zaV5kVFpd7Mim31dh326mW 5xhAHuXPY4UIIqQKDxoQWj JHEiXSL2UPTyoDCbI6auGS LhHL4wdvkgQOcwXOadPHMa rRF0VVOrwWYrE0WhRGAhVK unBJNjezs8TfGgIj2mnGEm rGehNZvxk9oxd8ksuBZwCg h9LCSvQcNiUmpoVYgum7Xx m8okQXMdlg6qPZB2hQXzuE dbi0L2hBPfVZJnbMFiVPAy SH6ckBJfMHXhpB1xzmlbWF BnYnJkcmhlYWRccGdicmRy Ht5qbEnuTGY7CVzkY1ieeC 5oZfU4ZGcwV9lqqL0zZIg0 ZFzrKFHedVL7kuP8ASPasV BnG3VzyE0mMZBaFI9fzbx3 x5sgCJV8NFroYAOfXcU6xw V0VLGttQItILWurPdxHMgf w212SKN7YcHfHALzn0XdJ4 TitEwkY94grDepN69bJJWw wRkbuG8hvGinxF8zPhXwNo TqFDszxXjoTZ8cLYYiS1jy hIYmJFLgURYjG7nmPzDupW 5ufNbwHZsowiJlWROiVzd1 DGJynFPsQDSqFqu3CBJmIQ SyW52ufanuTVY2wG5kf9gf x1XsTFayXAC0WXWzt15eJH gtaoT0NJzfAn17BTkzYNO0 KUafRZZ9hN== COMMENT (test code = g2pzhTVdZEVzgMP6KuAqVG 3353) Nbc2scx8DjxRExwJFiWPxe hWDeruAfnc97tWW5gS21YF 8tDPMdEwI1RQWrwuU8Oul0 FQVlOHGilFBhU407m8ipj8 qhzmRqqDT4oAnwVAYaokmq InP7DZniTPUiojkmLJj2ME wrMFVltSU2LOTffHWvL5Pm FAWeFP9zkav4CHG4AUnsUO ShCzX3NHFibJFoXVIpoDgo QLyho186GCO9TeMbKYJzmn XqnTypaD0dIgOqTWCRqGBp zID6jSRxmLojOOuvg0Lqzz jrd2NdD1QqoawdBSfusKVk bjWzguZfd0GcQV3oZTmiVG Q4yD5yOBXwy7pfFEAbP4Fr PG2cA4Cll2ovYJEsk2rvkk EoJDA3aVJlSQSauiRfhkYs PVC4sFFodCCphKUaqKTceB Mko3LdkZN0ubPcyaAnsQJ2 WEZtn4IdyS87VXNhj37pKJ Bhcn0= CPT Code(s) (test code x7vmbLHfTARjbNM0PtHqZA = 6925) Bej0xvg4XmqHWsfZSjNTrk cRVzntHfsu19wEQ8pF46BS 2tZGGpNjN3HRUxndP4Ael2 VYBwSJRnpJYkM272f1rru7 ljrwKvfST4eAhqZGMqaptq LzP6UNukIHQafwspVHd4RO kgBIUxrWV8TYWkmVWhN8Hq DNEbVI6shhb2NNJ5ECowHJ FlWbK9MDUvuHKtXWKuaVfz EYpxq793AYA0HuJjOADhfl WtdQolqI9jFoOpNPD1VBNs NVxwYXJ9 CLINICAL HISTORY (test g1nkdRAkVKGzlAA3WrKlWO code = 3356) Hwb9tjv5PpjPQxyTCvUGhr xQCvvmKibe73lIO3aR92GT 1kSTZcBgT8UJLaeaJ8Gla8 BSHlTHFtiDVxF792j9qzc8 rlyzHhfCR6oNajAQFrzhgy FgJ8FZtgLEAyajfaANn0NH pzQJPshLU6PYJgpUAkY9Yc ESLsZY1qndb6RDM2HGifJE ElCsA9CHWsnTRtOXGefZfz FKxjj879HCY9PwZuEHDfbo WqwLmzuC3nSzRbMIGrOIQ4 Pt8uMG6aUW2ixLEhkksgum BifgZafeUmreVutaF4LOVh z7u0pVKWEFi7FS6jQGlXSY FqmyHlFdxpeZ2ceWrrnLIw OL84iE3leIIad0ObxNCoHD wucMwpvoLfjzRuCIoasA1a aNngTE1wOtJ2ZIdhhcVqZP HvJGIcwW5vUSTys4nrtkAi YmRvbWluYWwgcGFpbiwgU0 7DXSJcaPoznQidXSKrDG5t i5BahsEhZPLjMABeS8DhRR Ruq9ZiGRH8gqYqMHAfTQS3 oOP4g21mrMrkLNPcES6lWI LkPYsrLXHsQDtjYH4xVHLr mxVwJ1NqWF3bo3Ceu1q+b2 9ivV2hN0ywF5gfMCT2 GROSS DESCRIPTION (test j6wztQBvXEOwuAKERMPyS2 code = [id number]) zxnvFuFDKadPXuT2Xfkcks PFxnAB1aJF4fpEdmsSKsxK AwNX1KWGRhQoKePCCiqVTp yzQcCzEbFABclRYjePE2YB MuVB3adrclUNwjDKmbOSMq wxC1GZYjpZVxX3PoCRIpKZ 2qsyjaSHA4FNmowU9xbrZX XpajEn0zsMPchJctHcOyYw NoYXJzZXQwXGZuaWwgQXJp OUz8qR7FAvjxRUS8TDQQNo uaBFEeCC8Tp9feONNigTSv MSC2TZwfcIYmCLPrJAMvVE f0XIViSVzcqAHmRJ9twFsh JafrvWoto3EcwMHdPZgkYU LrJMBzLOvrJWQvLP4MEtFk OYJ1QAx4DSZjMEc2RJu2HX 8HFfVrBKJgVJI8GZW2LwKz MWi7UUwwZO4BJVF2AMU3MO bpAeC6EIK7ArUcSJZpDlXc XGYgQXJpYWwgXFxmbCBcXG 7waPdloQOqgpIRTwMOOVI9 aXguXHBhciANClxlcGljTm VzdERvYzEgDQpcbHRycGFy XGxpbjBccmluMCANClxsdH DiwVppitJuDCQgD3YgzfRr UVqpBIXrgl7fjWfnBAzaCm JzYFZqo8q6rMO2nPAgnJZ8 dSDosCdlHhKbOI7rrTRkGF 7lCYpvPNkhmnByi6XbXO78 bWJlciBhbmQgImNlcnZpeC IgaXMgYSAwLjUgeCAwLjMg hOMtYeLpR90ukOKsMCylWI mod08drKE9kDRlkZKfYyIw E34piyWwLULnxPaeCWK3yT AbWXDqu17uCEB8Lh6nnGTg PFShkzR2l5FrTFtzXKHmDs lpQRKjXXkmnSDsLU6UL4fx jGYyFTKBrhU7usphBRxQTY JBWINlXCQULGtjrAyoeT4b KMjjiH0lVO9CNPZoRGflNZ CxgBMFIMP3GP7zQIzugDIp ysgtEZMqC9AaN7VudtMicC ZsLIHpybOly3fzUYT8ACLp eULpwXCeQbQeKhziAAO8ZE gmh1upYBL9JILwlJQsjQFw XBdfAmKjTobqLYUrE7JjI0 UkzqE0FJw7 MICROSCOPIC DESCRIPTION t4yejYLwCGMrnCD1TaKsMT (test code = 3371) Lfk4zqt0TpoYDnbLLuEDaf wHFerjDppi08zTD2gY10VO 0zAWYmHyY7TPFccoP1Fih5 WQHvYWMeuMTzV165x7uqa8 zgqmMwmTO0pVfoXAPjhxio LeR9CQleBFXcnkzvOWy3RI tnDRLggVD4ZTHgsFPmM1Zn QWDpLW8rvlh0BFK8WGcsQO GjCqQ0BCVwjYYsQAVmpMcm DUwvo152LON6McFkOZZcuu QmlZppvJ1qGtJvPJZCFWOd q1MkXMLhQWQrpt3= SPECIAL STUDIES (test j3ifpLCwADPbw7dmIELynN code = 3376) FuZzEwMzNcZnRuYmpcdWMx EYhzciIiZFowf2BnZ2OsBc AwMFxhbnNpXGRlZmxhbmcx KZWgFLV8pyGuFTFsBIlrPC DdYZcrUp3duFKbmFtiCiHj PBGlv0jwbuBGlqmsaTx7f2 riIXUlKpB3mRSeWDnhT3jw stMcgLYtN6XcxYEyuTe3h1 jfFrElCpW6kXWdJGwlL4pv kvRfsNQzMZGhEFt6yV61QF HelJ3dnBNpFDezwcHtXfH2 DIolLVBjYtE1YFMcsVRhKT SaW5uaQYPdOWkqUXVsVIra sJRtEKD8vAlaq5T0rGEnpI PijPprLeWiQrUlVjDGt3Sx SYz4nRtzB9SvEHQoKeY3cZ QgUGFyYWdyYXBoIEZvbnQ7 uQyluwSdm48vbSRqDFNfJK GtEzVkrOmnWJBhJYOHz9Nh wNpoVSU7iKs9tCguQbpiAP L1Zxo1TU9mcm34jkn7sSoo ZDGghnxaEqS9YMkiAUQufb bbZQz7AYmtDWXfyCV7ZSAp iQAbL6EcOYRxHH3vziy6DR R0BQevOKNeNeX9DDOkfPTl PJAsiHlnQTpcp951VOG6Wu ZxTX4fY3Ihi1L0lH0ncXNn NSBeeTYsMtOiAAUcjn7vdI EcEBwib6KpWLV8swL9uDQx xRRjMHPmAI96Wquvs0ZiPd ixo7JbC05bxDO7RDpdy6lp YE7yVeK7xeDbEYsfa0aowN 3bQtJ6VCuvPR5qIB2yDMFe fH6xfabnLUFlYaUzvyqfEG TieIspmiYlXf7qxPmsBNK4 JYvjY5zzeM2hMfE8NIddO7 erwN6kAVo9FJkqnSW0ZYOd rX2bFN3wtyasd5ycZFnyYW ukNPButoH5pqD4URSsbXEu D8PifH6zHOKlLQ2xfodwf6 yoXRW5ODdlCHDiVXV2LtIz QBLoc3Kkwja3DzIgf4NhhS UxNCeiU63qe845HNGdeyOd Q5jbaNQwkbamqPBzcmuyKW wjhlR6NJRoYBWjHUtuXFZu XGZzMjJcbGFuZzEwMzNcaG ljaFxmMVxkYmNoXGYxXGxv T6cfDtMyG6UuCZJwFjKvSI lhSQfusLNftAZhgWJ7zA3l JQ6gOZTssBHjJ3GjOIThyy JunMRaRVA8zSNkaYTwNU7m LKhyoBYmp3qff3ZtY7zmuJ xcmPV6TI9sOKVxOKQjNFld l1TcuR7mJzjaaLJwbirzBC xmczIyXGxhbmcxMDMzXGhp L4qdYsUrJKFxmFrfKUtqj5 NoXGYxXGNmMlxmczIyXGx0 cmNoXHBhclxwYXJccGxhaW 2lYtTvVbKeEnehOV7eGBDq R5islMJrXQZfVALfL2qhJg DqaX0faEqgEZniWkJmDgZm VqUEq462ws2xYODpfJPlvd CCbTZqpB7fFKcsOSqfVNqh bTVsAVvph7awXFHme1p7jX XaGTUhlpHci7akEYfggbZz XZBheWEueKIzADPwo34oLV osbUlzwRruBQKes2RgpIwc k1QzMrHfHAays1EfY01scJ JvbCBzbGlkZXMgcnVuIGFs h54rx1ypQAJtLjV6kMXpqP M2dABslBAsg8EnsGyzWLKa g2oyNVQoww6npujakJCnl3 AweT7waazdRZiefPYyeqLd BTKjo1j0cZBcIUFtTHJgWV ukbXo3BOObg473sx1txkU1 kMTbTDK0FOzdEVYqQWFjvq UgZXZhbHVhdGVkXHBsYWlu XGYxXGZzMjJcbGFuZzEwMz NcaGljaFxmMVxkYmNoXGYx XMxcH8iuUrXvZ7EnZKCtUy PysUJzQ6wowGIdLFWjAKij XGYxXGZzMjJcbGFuZzEwMz NcaGljaFxmMVxkYmNoXGYx XGlzZ3pjHzHiA3CnMKKhYt IgIFxwbGFpblxmMVxmczIy KPaslogjQASxVSktT1phEo WkGNYxtIudPYnrp0JyFPTf JQPwYgifqeSxEFo5nmImRM BhclxwbGFpblxmMVxmczIy GMsjgwpgHNFiRRbyV7hxKu DyXYNjnPscDAtte8FmCOGr XGNmMlxmczIyIEltbXVub2 djh0HpZ3eveYaxuIC3ICBe Q4qjqPTziDY1QLX0kU5hZV rgdiWaGTZxl1EnWVNmZUPt FvW4jG2lHBN6YlTJsCjkMD BsYWluXGYxXGZzMjJcbGFu ZzEwMzNcaGljaFxmMVxkYm MtFXMbTBcuB9kjFmSeD8Rp KJYhVfBjdEisWTcyLXu8Pe xwbGFpblxmMVxmczIyXGxh uyomNEKcAAfrL6xfUcCuXJ PrmWdgUFjfe9AeYUZcRVAx MlxmczIyIHMgTWVkaWNhbC DDUP79YTAtPSTnuPqhzR3e gZRUPMWjobC1g3Q0KJtlLI EzBDg2EIyissNwZZRufN5k XSSyVZ1wLNh8wnVtIYDir3 GfNJ1xBZJwkFMmOQZ3TNWo n8EbC5Ofg6RbMFUwCYInkt 4jkpDyCpFCsEZjMAHilz69 BSMcUR8xM5bkBRSmEAMpaf GydLRfl9XgRQQboMN2nGFo EH8OVoUQv23fBZFhLYCLfm UsQPWneJjduIJ3iyH3gA3e LiBUaGUgRkRBIGhhcyBkZX Ozbo0hukAbADTwUUCzk6Ox uGStgKPwrnPdS6Zhe0OwAB Cuov32IWghmSJirl19FT5i P3Yxf5XtsQ8hAXdkAKPib9 ZjkPSxxJMsHFHqx0CpN4bn nxnlLHyqtFMbcP7uDLJaTR p2FNMgj4TaDVPxa3RjFcQk fgXxNQDrHOUpPARqzV21QV S8kLsdqRckftYxML5sAQHg xbSkHCThGFMsdI4eEQmhsc EsONIdpzB0e4F4FGraMKYk fhTkGnbgAXK3bnHrtvQ3iW RjD6lzifftNPzaVRKfg4Ac jI4tcQEHdKSwt6MhgSDhqY BWvEFsOK5xfkVkAM2oPIO3 ODggKENMSUEtODgpIGFzIH P9MVknUyphZJB8bfUdHCHz e0RmLXghR2tuU64kuCbyhA y8oIFzgXencOFihJInKGQz fiM7l6N2QIIyd0HfsospSF BsYWluXGYyXGZzMjJcbGFu ZzEwMzNcaGljaFxmMlxkYm CaEOTzPNxlW4tqIyXiHgLx MolsXQR8hI== [facility] Park[facility]ise [id number] 16:47:26 Test Item Value Reference Range Interpretation Comments Case Report (test code Surgical Pathology = 104) Report Case: [id number] Authorizing Provider: Nathaniel Dooley MD Collected: 02/26/2022 04:38 PM Ordering Location: [address] Received: 02/27/2022 07:57 AM Service Pathologist: Gene Carlton MD Specimen: Cervix DIAGNOSIS (test code = [id number] 3220) FuZzEwMzNcZnRuYmpcdWMx IHtccnRmMVxlcGljOTYwMl putrCyDRCaiIIbA8Bowaoj OQduBL3tMW5htZnldJWlgP EpSHFiYqNac5hvo890aRLs r4ttQHJArjvfuPi4fWopK5 3jm4M8HfqsC86svSNkJID3 IKUoWJNosMTdQXSbJSF7MX LhsESkI4bxXPFkEG2ylhnl LKiiZEqtXFIuqMU7EUXhsX IdX9XfYVXyZJwvIOIkiug8 XtYwPn8nzFSptKgkVPsdIG UxHSVwRPfeLNJiTeUbF4ES QfyYBTVUYNRKIVSCOI0HJ7 u5NJGdtht2WGEaBODGUWTL RiBTY7eTQZYLDzRRMRKKDZ LoM3FlF7OEPO8JAWRxQ2EB BKICQKJFWM9TMXVuWTXnYI Qzp19xQB03OKcyVES6c6tj dGYxXHNzdGUxODAwMFxhbn NpXGRlZmxhbmcxMDMzXGZ0 bmJqXHVjMVxkZWZmMHtcZm 1gsKBpeEipUfKlOLExb4jj dqPTclyfaSy2i3obOGNcQd G2rFEuGRosL9vhbkDboNQv HXKaKEe7dT48AFUiuY9eiB ZuULouqjHrLdL7VLrtDCXk IoL1RNWblXMoCDLiB3liWG QwXGdyZWVuMFxibHVlMCA7 wWoax5G5wFAabSKojDaaJt IaFtFrIvWTc4DtZKq8qJkr O5KzOKDnBlX7fNPoKHXzNZ plPPVvZWAulcI3bH93LYxv ylN4tSSgx7Eln80up252yS 1aqPGoIVT8GFQdGDThzYEq NRLaLKC5QGZulBTjQ1zuWM BqGB8wcygwDGxnLZisXWDr kUE4DVGabVExU5PlMPScMT qeVNXfivz1KqIiFl5gyNNr pVcgWSdlk5jyl7zssWFmFa c6NPVuJjZzFnjcDQuoz1Xt j1dxHBLodo9gGAA9bCWegP web2S0rQSsRLBtmZIvDVTk LQ8aqCNrJPSizI5htzbhKX BnYnJkcmhlYWRccGdicmRy Zq2jeGysEZI3NYeeK3ivoR 8aKkJ6TToeY2mfvQ2qCTn5 ABfdZGJfqPR8ygJ7SZWlmT IyP2MojS9lAYDbYR7sfae6 p1avGLM3MDttXYOjSeN7xe G0GCAhtLWcHSKgqBkeSKxl a600ZWX2CoUhYEEbz3AkL5 BuqJiwN28zxWmsR67eANTg wXjowJ7pjQygdR1wPjZtBh JtSTfrjVdiVV1dHYRfD6es nGTfTDQwILGsM2gpThMfwE 5onVgrFFmchnMzTYLvKzi2 LPRhgYIuKEVrIie4GIDgNH HoE37bstdsJGR8mQ2np9cf t1KxNMykDHR1HMAuy55xRF elqtF2JRqqOe42LZydTAA7 TWkdOEL9xJ== COMMENT (test code = p5pjqUMlFGZjzEK6TqInGO 8118) Kzw0vhb5UeaOVlnYLqEMqv jLDqlqMtts03zLQ7tQ39CG 5tUELoEyH0YYLlxtE7Iba2 VQXsHORzgANfP512n9jqh3 xqzuSltAC7cIzjXZTwsukc SbS2TZweXCDyuyvhFMo8UB scBNOgnAC8QJYmtAMnP4Lb JPKfAC1vumr5WUI0IWxiTL CaOiC5VJAjiLQnCFTfxLuv DMqac606GMQ8LySxQWMwpv MrbVwwnL0vUuDmVCKCrGXt cZA6rZJlkZsyGKyob2Mkaq tag7JwC3LggeysSNqdrLNo bdIglbXei6XnHH2eMOuzAP H2dK8vUKIxe5ygUUNzY3Pf XE9eZ9Ejp7byBHBqd2omlp OmOLE6fYVvHMVvwtTrsbYn GKO3fQIcxHEkuKJhxNHdqI Hwm9FlcKD9daAxaxUvhOU7 UVFnq9LtcB69WKXwz44bVK Bhcn0= CPT Code(s) (test code k1easDEeNNSdhNF0XvCtHV = 3357) Tgl5kkn9UzmTMgdIMhMAbm hEIrlcNxas38wZR8sX76RP 6yLYCiKbS0GWCsxqH5Xyr1 FQQaEYSeaGQsL452c4crh5 ycwdMiuIZ0bUiqYTOuwdgd LpU1EWluQOPdbqtsMSa3VC ntPENrdOH4VYJrkAVdY6Pn VWPnLJ7oxct7GTQ7MQurXJ YzKoW4JSWwjQFmHBWhdNio JHmis083KNM4SiChJFIsnt EakGjwkR0nWgMhOSK3UFFf NVxwYXJ9 CLINICAL HISTORY (test f0flmHOwDJArcKT5LcOhXZ code = 3356) Ahj3hfo0XpmGDneTJuYAsb pQTrlaOghg60sCI9rL29ZM 9zXRVkQiQ6TBFwypD2Mlk0 NMMmGFRtlQMgV138k0gqd9 codpImeXR0xVyeXJPijdkm XiY5PEvqJPBtijhdHZd4QV ojJHFliLI6SDIitEQtM1Nc TNGuDD6qylw0UOF1CHomMA UqVnJ8YBAehFOyHPRamWvs UKhvm104HFC2ZdItSFLyrp UtuWywhN7nEwDtXQCbWLC9 Gq6vXL5mPU3ckTLxnwdxsa AjsnZkqtEowwVvehX5ETJq s8u4bTQFESh8EG6yIJoMYF BcwoAuUhwakI9naOrttPWk EV93hQ2ncPDbx5LoxHLtDO zddCgipwOnyrMyCBlmlD8t uZkiYV7zDlQ6YXmdtpLfGF YaKDWiyM7eKOVde2kywxOt YmRvbWluYWwgcGFpbiwgU0 2KWZRzuVzseDnaBVRhRK0l a6QglcQgVNVjDDQrR9TvCF Bsu1HiTVY5bwHhJFBaJKH9 vZC5y15ieGurVYNpFX4bHW BsWRymNJKeJFnaZM5aBCUm rnDkH9MkZF5rm5Cfe0p+b2 7mcN5wN0kbV0faRTR0 GROSS DESCRIPTION (test j7tswEIfYZRpxEPGEEDsJ2 code = [id number]) zbcsRsCYYjnFUzV7Yprmcj IJweVC0dUF6ldQmmjGTxwH BhFS4VBJTgGeFzMEVikCVc ndBuDoLrAESwfKQryNW6UG KpOM9heeujSVbeZXxoKPIi bhK5ZJNwiARgN5DgJPCeVJ 5gxotgMBS4PJeqyH4pxqDR XcahMe2nhVFfyLlcUqPxJp NoYXJzZXQwXGZuaWwgQXJp DWn4eH3RHxjjUTO5SARUIy vwNBDlPV1Yo8pkIGEaqRRz JQD3KCxvwJMrAHUgWVDjRL s2COTdKUnbjWLnFN8icRws AwdhvHevz8TdeNTiSKsdNP IbCTPbJOcyGMQgGL2AKcLl FLS1CAa6VBLeUIo4QUb2BX 7FAaNzNMSiRFY7ADE4ZoAk VIe9ZBapXB4UVQV6IKQ0IX oeZgS8OED9UuSvQNCtBiDx XGYgQXJpYWwgXFxmbCBcXG 5rdVzdjTPmioRKXhYICMT4 aXguXHBhciANClxlcGljTm VzdERvYzEgDQpcbHRycGFy XGxpbjBccmluMCANClxsdH VhuLzshgGaUKVeF4JnflEj YJauSKZayq8uiJbwVEirGn RePXNtu8l5bGQ1gJBqyOB3 qXXfnBiaXcZiME3kiXAvNB 3oSFcwQCdwkhIpz3UeOA71 bWJlciBhbmQgImNlcnZpeC IgaXMgYSAwLjUgeCAwLjMg nGFxKbPlE39muOUuTAewVK tqc24xnXK1aFLjmIWxNqGt O21zgdEnQBJxwNpsNHA1sO UhRSBvj02qITH9Rn5asBFy MTMksaJ6o5XuIIsiKOPgZf wxKSZrKTjcmYRcGI5WZ0dj hUWnGOPSjgQ0iwswZQyBLP VUBZSdUEPKYByfdTcraI5a EEfpoO5fPE8YQNLeKAtbPB VabAHMQBN1OM8zBKgurCFf ioigSRYzA8EkR0KkhoNcvV HuCCCjzdGko1lpELZ8JABk hKVhsTUlMnOdAofdCUJ1GL ces5ulFXS8LGNcoGFnfFQt DWseVqOaAkbtIRFlX6TzJ8 LiklU8FXn9 MICROSCOPIC DESCRIPTION a7vfpCLlHAMoeYM7ZaOpJG (test code = 3371) Xrb6ati3DflTFjqPWqVEqc kHAksaWfvw29vUI8rU65IF 1bTLFzZzB5ZCGfngD6Yoz5 QQRoMRSjwSBdV116f9qyw3 gnsvErgGF0sMexIKPcbwrs VkT9MNwyEGPxyxbeHAv4EF jvMEKkuXF8LVOxtEAaE2Gn OGKvZZ7szai6BLP4DGutDP QiRuC8LOMopDOvWVRtrZom WMhzy988BQH4XlRhJFLdyo KfyIoexW6uVhWqNHFMFAFc u4XvHDZlNPRcue4= SPECIAL STUDIES (test h2xakLRfVBGfq4gvUBTuaZ code = 3376) FuZzEwMzNcZnRuYmpcdWMx DOfdapWrDOpct7BvO4TrLf AwMFxhbnNpXGRlZmxhbmcx ISEgBGX0uwVoXUOuGJgpIW XoSMcnJz8jkCDevGdsNdOn EMFnf8gngeXHivjxfCj9i0 wpMJCyHtN0yGUvMLqsN0ea bpFelFZwO8WdiBNmsNo2k2 roXwJxSpM8eZBvQWwtC6us deBdvRWrBGGjIXv0jM91ZN IgfC1agTEwHNvkqjKgSpI8 BBibMMTmSpD7WJUufHVzOS LdO2leWUKsWTyfSLOgJGzt nEByWNX4jJxta2X2cVXeyL DqeYemTiSsDtVoMpJAe2Mm CZd2bBalP4CyDVGlZxO0zZ QgUGFyYWdyYXBoIEZvbnQ7 mKqmbtJen91xjRXcOLXlPH RqNcEigDjdZXFrWOGKe3Lw oLezEPG7jDm1pHbmPfdhOB G8Gtd8TH1thm53img8dRwh NYFyvceuMkT2UDmpUHDyjp hbMZe3XNweCCLpaWM4JJNd zEBtP2QaJBFsPX7aztm2UA G4RHcaSXFsIqC0XMElvJDw EVSljAxyAYdgi730HKL6Es MhBW5mC1Ael8H6cB5ihZIe ESEpuUAtCaAzBBAmcy5mgX OlVIute5UiVZD6xwX1aVAv qTZvCGLoEQ84Tmwcf3ZrPh mda0BuH07pcRY5ENuvh8sc GT1rFlM4oqRkVGklk1wydL 2rRoC4WQgkCD4pAO4nVRZm tD8reoonXWZvVrYshctwXK RurGmzaiBdMa3scSpaFJG4 RVciZ2xsnB6aAgC3FSgvH0 hspB8tTFo1HPrzeNU1QXFj hL8pAG5fhroll1nvEYslVR oeOGAprmW6yjN1SFIptHBs C4KgxU1wTALkBG6rrcmdn1 ktVSJ1ATznMDVeJJD7BxCb ASAaj9Kamst9VcIik4CvmN IjDIstD49kt221JTZkcwOd A2nssWEakfpqrTAhslurSY dkegL7NJDmHOTiYBwyHVHh XGZzMjJcbGFuZzEwMzNcaG ljaFxmMVxkYmNoXGYxXGxv K0zzQbQpO3JvVLSkMjGwXT ziEUyvlYOttTRuaUP4hI4d SC2tANXuhRGsO7IvRVIcsi SyvBFeBYL8cJPfpDWjNG6g PJmclHUob2rds1KdZ0xqkD bnoAT5DB4wURToIBWyYUjk n7XgiW9lHumlbIVsaauvWI xmczIyXGxhbmcxMDMzXGhp G9lzGmPgZHLojVtkTMote0 NoXGYxXGNmMlxmczIyXGx0 cmNoXHBhclxwYXJccGxhaW 1oYjKcJsAmWbyfLO4qPMCq H6epfQFdZDHsUPQeH4qhSg LstP5ddNndGNggLeQcOfCe PsUUu713xg1tBUHcuYQrrl EObLJuzN9uSMhnYEkcNUgk uGYcWLlnj6pqMHSwg3t9mV RpDWQifeEja9dtIKxgedNp USRqkQTitKRxGLKhz07vOK fryGpmdNwwJWFge0OptVtt u4MjWhYhHClbh6JhB95sqU JvbCBzbGlkZXMgcnVuIGFs a55kv0myBDQwRlA0yBBtwT A8lJVmpCVsi5DddHvtESXc n7ydQZZvht8okcuooAZqs9 JuhC7kjxbaYFayzJQvubLm GFDec1n9fMAtZAKfZVKkIZ ojnSy1CTHmh347ll6dfqQ8 xAImIBZ0SEowYZItWHOafd UgZXZhbHVhdGVkXHBsYWlu XGYxXGZzMjJcbGFuZzEwMz NcaGljaFxmMVxkYmNoXGYx QCukC2czJrQfJ6MaOALyFj OjuSShV0tizWLwHSZcQKfz XGYxXGZzMjJcbGFuZzEwMz NcaGljaFxmMVxkYmNoXGYx ESsjS4yqZgQuW1LtKUDyWa IgIFxwbGFpblxmMVxmczIy VFykxheeEVHvITbrU0inPm ByGJXtxAodRXswa8SmPVLi GDLaNzuxxsEePPa6hzEyBD BhclxwbGFpblxmMVxmczIy GMnalktnBEAxCNohE5qcDs LjKCPfgQgzTNtit1AiHLUj XGNmMlxmczIyIEltbXVub2 kzt0MtB6wdfPtroXN0SXFo T1wfaSDvmAR1CQJ0kH9pXT lednWhQPKfq0DcHDFkLVHx NgQ4vY5iSGK9MnTYeAwnRC BsYWluXGYxXGZzMjJcbGFu ZzEwMzNcaGljaFxmMVxkYm CnWUSkXJkrI1rzLnOvF3Lu AHYrMhAyyOmtKXqvWMt0Uh xwbGFpblxmMVxmczIyXGxh sfakXGJjMWduP6hrGpJkKI FkfHncRHpxk4MdAWVcRNYp MlxmczIyIHMgTWVkaWNhbC ICFT44GIYkMEUdrFqmgQ1o zCCAAWDgctU5n1S6WAniCP TyYGd4WPzaunWuYLJzpX7y RRJcVR9bZLv1pmNuDNEjc4 SaTU5rAGLheRAyGBP9ZRPb s8YrG1Dwd8HiVFZlUTWkcw 8szlObCyUYgXPrTHNlgt45 HCSoUR5kW0rgZPQrZSEnui HtvBHxs8BkBFLudZN5wCZq PX6WEdFFy53sPDZtHLUJhl XmWNBhoLjocDC6dgL8oM4p LiBUaGUgRkRBIGhhcyBkZX Dskp1vruCwFHEuTRZjk3Km aVXkyRSyfgGiV4Tks5IfPQ Vruu46YMvimNNtoy46PF5z W7Wuh5XgbR3bYNchSOJil2 JcxSJmjHLyZUObf6TmD5op iqclTWvwgIQiyS4sHEGnPO u6MNCeu1GyXWVdy3AgOuEj vrQsCGXpWXNpOUXfiZ38ZS S3cWawcJokidQeTM5bQCYi blAkXMNqWLTobQ2lPUhabi DxARFyrsF3l1J3AQxnPHHi hkLuNivnWAC9ijPpgiW5iT TpD2rgxlzpJSpfPCJui8Nm dD7lwOBYqQJsf4WyxFOzwG GSjVFtTK1aniVaSQ3cWNC7 ODggKENMSUEtODgpIGFzIH W6YWygUkjeAVB9xoNeDJDw d5GxXKsrS3mvL68czFqipR f4gDZksVouoYSlbCYxCNRk jbP8j4X8LRDvj3NzkbiaQB BsYWluXGYyXGZzMjJcbGFu ZzEwMzNcaGljaFxmMlxkYm MmCYTkLBehS4emGsRuKrWr JvjaSXK2zA== [facility] [id number] 16:47:26Surgical Pathology Report Case: [id number] Authorizing Provider: Nathaniel Dooley MD Collected: 02/26/2022 04:38 PM Ordering Location: [address] Received: 02/27/2022 07:57 AM Service Pathologist: Gene Carlton MD Specimen: Cervix CERVIX, MASS, BIOPSY: - SUPERFICIAL FRAGMENTS OFSQUAMOUS CELL CARCINOMA (see comment) Signing Pathologist Direct Phone Line: [phone] signed by Gene Carlton MD on 03/01/2022 at 4:47 PMThe patient's history of cervical massis noted. The tumor shows focal necrosis, however, there is no cervical stroma present to evaluate for invasion.[id number] y.o. female who is incarcerated with PMHx of AMANDA and "hemophilia" who presented with several months of vaginal bleeding, lower abdominal pain, SOB, lightheadedness and fatigue, foundto have symptomatic anemia (Hgb 4.4) and cervical masses on imagingA. Cervix.Received in formalin labeled with the patient's name, medical record number and "cervix" is a 0.5 x 0.3 x 0.3 cm ochoa-marin soft tissue fragment admixed with blood submitted in toto in A1.OCTAVIO Timmons, PA (ASCP)cmPerformed.The interpretation of this case included the use of immunohistochemistry or special stains.Control Slides Examined: In-house known positive controls were evaluated along with the test tissue. These control slides run alongside of the patients sample show appropriate staining. Internal positive and negative controls when available are evaluated Immunohistochemistry technical testing was performed at [facility], Pathology Laboratory where it was developed and [...] to perform high complexity clinical laboratory testing.Prepare [id number] 23:54:00 Test Item Value Reference Range Interpretation Comments Unit ABO (test code = A Pos 1758673) UNIT NUMBER (test code = [id number] 934-0) Status (test code = 0821117) [facility] Product (test code RED BLOOD CELLS = 2263) PRODUCT CODE (test code = H0073P58 933-2) CROSSMATCH (test code = 2264) COMPATIBLE [facility] [id number] 23:54:00 Test Item Value Reference Range Interpretation Comments Unit ABO (test code = A Pos 2938096) UNIT NUMBER (test code = [id number] 934-0) Status (test code = 8709084) [facility] Blood Bank Product (test code RED BLOOD CELLS = 2263) PRODUCT CODE (test code = H3010K99 933-2) CROSSMATCH (test code = 2264) [facility] [id number] 23:54:00 Test Item Value Reference Range Interpretation Comments Unit ABO (test code = A Pos 2329697) UNIT NUMBER (test code = [id number] 934-0) Status (test code = 5979337) TX_TIMEINCHART Blood Bank Product (test code RED BLOOD CELLS = 2263) PRODUCT CODE (test code = H4200F47 933-2) CROSSMATCH (test code = 2264) COMPATIBLE [facility] [id number] 23:54:00 Test Item Value Reference Range Interpretation Comments Unit ABO (test code = A Pos 5891616) UNIT NUMBER (test code = [id number] 934-0) Status (test code = 6979141) TX_TIMEINCHART Blood Bank Product (test code RED BLOOD CELLS = 2263) PRODUCT CODE (test code = L0992W34 933-2) CROSSMATCH (test code = 2264) COMPATIBLE [facility]2022-12-21 23:54:00 Test Item Value Reference Range Interpretation Comments Unit ABO (test code = A Pos 8425106) UNIT NUMBER (test code = [id number] 934-0) Status (test code = 1751405) TX_TIMEINCHART Blood Bank Product (test code RED BLOOD CELLS = 2263) PRODUCT CODE (test code = W2025D13 933-2) CROSSMATCH (test code = 2264) COMPATIBLE [facility]2022-12-21 23:54:00 Test Item Value Reference Range Interpretation Comments Unit ABO (test code = A Pos 1779803) UNIT NUMBER (test code = [id number] 934-0) Status (test code = 5223739) TX_TIMEINCHART Blood Bank Product (test code RED BLOOD CELLS = 2263) PRODUCT CODE (test code = L6074P10 933-2) CROSSMATCH (test code = 2264) COMPATIBLE [facility]2022-12-21 23:54:00 Test Item Value Reference Range Interpretation Comments Unit ABO (test code = A Pos 8709174) UNIT NUMBER (test code = [id number] 934-0) Status (test code = 7739588) TX_TIMEINCHART Blood Bank Product (test code RED BLOOD CELLS = 2263) PRODUCT CODE (test code = E5022G51 933-2) CROSSMATCH (test code = 2264) [facility]ING [id number] 14:04:42 Test Item Value Reference Range Interpretation Comments IMMEDIATE PT (BEAKER) 13.6 seconds 11.7-14.7 (test code = 1487) IMMEDIATE PTT (BEAKER) 26.4 seconds 22.5-36.0 (test code = 1488) IMMEDIATE 1:1 MIX PT 13.2 seconds 11.7-14.7 (BEAKER) (test code = 8335085505) IMMEDIATE 1:1 MIX PTT 27.5 seconds 22.5-36.0 (BEAKER) (test code = 9693226006) 1:1 MIX, 1 HOUR INC PT 13.4 seconds (BEAKER) (test code = 1501) 1:1 MIX, 1 HOUR INC PTT 27.3 seconds (BEAKER) (test code = 1502) MIXING STUDY PATHOLOGIST Normal PT and PTT INTERPRETATION (BEAKER) at baseline and (test code = 9121305960) after incubation. [id number] Christina Ashby M.D (BEAKER) (test code = (electronic 2768) signature) FACTOR 9 [id number] 10:15:32 Test Item Value Reference Range Interpretation Comments FACTOR IX ACTIVITY (BEAKER) (test 157.0 % 60.0-150.0 H code = 666) FACTOR 8 [id number] 10:15:32 Test Item Value Reference Range Interpretation Comments FACTOR VIII ACTIVITY (BEAKER) (test 377.0 % 45.0-150.0 H code = 663) [id number] 05:22:17 Test Item Value Reference Range Interpretation Comments FERRITIN (BEAKER) (test code = 18.37 ng/mL 5.00-275.00 361) Wildlife Biologist ID - LETTY GBASIC METABOLIC [id number] 05:15:22 Test Item Value Reference Range Interpretation [...] De scription 1092) sq m Result G1 Norm al or high >=90 G2 Mildly decreased 60-89 [...] not appl icable for dialysis patien ts Wildlife Biologist ID - LETTY [id number] 05:15:22 Test Item Value Reference Range Interpretation Comments MAGNESIUM (BEAKER) (test code = 1.9 mg/dL 1.6-2.6 627) Wildlife Biologist ID - LETTY [id number] 05:15:22 Test Item Value Reference Range Interpretation Comments PHOSPHORUS (BEAKER) (test code = 4.2 mg/dL 2.3-4.7 604) Wildlife Biologist ID - LETTY SUMMERS, TIBC, % SAT. (WITHOUT FERRITIN)2022-02-27 05:01:35 Test Item Value Reference Range Interpretation Comments IRON (BEAKER) (test code = 547) 52.0 ug/dL 40.0-160.0 TOTAL IRON BINDING CAPACITY 211 ug/dL 250-450 L (BEAKER) (test code = 769) IRON % SATURATION (2) (BEAKER) 25 % 20-55 (test code = 2590) Wildlife Biologist ID - LETTY GCBC (HEMOGRAM ONLY)2022-02-27 04:46:45 [...] WBC 0-0 (BEAKER) (test code = 413) [id number] 15:28:00 Test Item Value Reference Range Interpretation [...] code = POLY) cells (100X) message] The uBeam stem which generated this result transmitted reference range : 0-2/hpf. The reference range was not used to interpret this result as normal/abnormal . Hematology (test Appears Adequate code = PCOMMENT) [id number] 15:28:00 Test Item Value Reference Range Interpretation Comments Hematology (test code Clinic al History: 36 y/o F = PATH) with abdominal pain and vaginalbleeding .Microscopi c examination:W BC: Morpholgically unremarkable leukocytes.RBC: Significanlty d ecreased in number with hyp ochromia andpolychromasi a.PLT: Morphologically unremarkable.Im pression: Marked normocyt ic anemia. Clinical correl ationis recommended.Chr istopher Wilver, MDCP T code 50508 Molecular Testing [id number] 12:09:00 Test Item Value Reference Range Interpretation [...] in the absence of viable organism s. [id number] 08:47:17 Test Item Value Reference Range Interpretation [...] 0-0 (BEAKER) (test code = 413) RETICULOCYTE [id number] 07:50:02 Test Item Value Reference Range Interpretation Comments RETICULOCYTE COUNT PCT (BEAKER) (test 2.1 % 0.5-1.7 H code = 575) Wildlife Biologist ID - 6000HEMOGLOBIN AND [id number] 05:48:24 Test Item Value Reference Range Interpretation Comments HEMOGLOBIN (BEAKER) (test code = 8.4 GM/DL 11.2-15.7 L 410) HEMATOCRIT (BEAKER) (test code = 24.4 % 34.1-44.9 L 411) Wildlife Biologist ID - 6000CALCIUM, [id number] 04:24:58 Test Item Value Reference Range Interpretation Comments CALCIUM IONIZED (BEAKER) (test 1.05 mmol/L 1.12-1.27 L code = 698) PH, BLOOD (BEAKER) (test code = 7.42 1810) SARS-CoV2/RT-PCR (Asymptomatic ONLY)2022-02-26 00:54:18 Test Item Value Reference Interpretation Comments Range SARS-COV2/RT-PCR Negative Negative The SARS-Co V-2 (test code = target nucleic 21359-7) acids are not detected in thi s [...] om SARS-CoV-2 in a nasopharyngeal swab specimen [facility] from individual s suspected of COVID-19 by [...] revoked sooner. Fact Sheet for Healthcare Providers: https://www.[employer].com/Documents/Xp ert%20Xpress%20SAR S%20CoV-2/Fact%20S heets/302-3802%20S ARS-COV-2%20HEALTH CARE%20PROVIDERS%2 0FACT%20SHEET.pdf Fact Sheet for Healthcare Patients: https://www.[employer]/Documents/Xp ert%20Xpress%20SAR S%20CoV-2/Fact%20S heets/302-3801%20S ARS-COV-2%20PATIEN T%20FACT%20SHEET.p df Lab Interpretation Normal (test code = 77515-7) [facility]2022-02-26 00:54:18 Test Item Value Reference Interpretation Comments Range SARS-COV2/RT-PCR Negative Negative The SARS-Co V-2 (test code = target nucleic 30045-3) acids are not detected in thi s [...] revoked sooner. Fact Sheet for Healthcare Providers: https://www.[employer]/Documents/Xp ert%20Xpress%20SAR S%20CoV-2/Fact%20S heets/302-3802%20S ARS-COV-2%20HEALTH CARE%20PROVIDERS%2 0FACT%20SHEET.pdf Fact Sheet for Healthcare Patients: https://www.[employer]/Documents/Xp ert%20Xpress%20SAR S%20CoV-2/Fact%20S heets/302-3801%20S ARS-COV-2%20PATIEN T%20FACT%20SHEET.p df Lab Interpretation Normal (test code = 11363-6) [facility]2022-02-26 00:54:18 Test Item Value Reference Interpretation Comments Range SARS-COV2/RT-PCR Negative Negative The SARS-Co V-2 (test code = target nucleic 07980-8) acids are not detected in thi s [...] revoked sooner. Fact Sheet for Healthcare Providers: https://www.[employer]/Documents/Xp ert%20Xpress%20SAR S%20CoV-2/Fact%20S heets/3023802%20S ARS-COV-2%20HEALTH CARE%20PROVIDERS%2 0FACT%20SHEET.pdf Fact Sheet for Healthcare Patients: https://www.[employer]/Documents/Xp ert%20Xpress%20SAR S%20CoV-2/Fact%20S heets/302-3801%20S ARS-COV-2%20PATIEN T%20FACT%20SHEET.p df Lab Interpretation Normal (test code = 80822-5) [facility]2022-02-26 00:54:18 Test Item Value Reference Interpretation Comments Range SARS-COV2/RT-PCR Negative Negative The SARS-Co V-2 (test code = target nucleic 13457-5) acids are not detected in thi s [...] revoked sooner. Fact Sheet for Healthcare Providers: https://www.[employer]/Documents/Xp ert%20Xpress%20SAR S%20CoV-2/Fact%20S heets/3023802%20S ARS-COV-2%20HEALTH CARE%20PROVIDERS%2 0FACT%20SHEET.pdf Fact Sheet for Healthcare Patients: https://www.[employer]/Documents/Xp ert%20Xpress%20SAR S%20CoV-2/Fact%20S heets/302-3801%20S ARS-COV-2%20PATIEN T%20FACT%20SHEET.p df Lab Interpretation Normal (test code = 92396-7) [facility]2022-02-26 00:54:18 Test Item Value Reference Interpretation Comments Range SARS-COV2/RT-PCR Negative Negative The SARS-Co V-2 (test code = target nucleic 59299-5) acids are not detected in thi s [...] revoked sooner. Fact Sheet for Healthcare Providers: https://www.[employer]/Documents/Xp ert%20Xpress%20SAR S%20CoV-2/Fact%20S heets/302-3802%20S ARS-COV-2%20HEALTH CARE%20PROVIDERS%2 0FACT%20SHEET.pdf Fact Sheet for Healthcare Patients: https://www.[employer]/Documents/Xp ert%20Xpress%20SAR S%20CoV-2/Fact%20S heets/302-3801%20S ARS-COV-2%20PATIEN T%20FACT%20SHEET.p df Lab Interpretation Normal (test code = 29531-3) [facility]2022-02-26 00:54:18 Test Item Value Reference Interpretation Comments Range SARS-COV2/RT-PCR Negative Negative The SARS-Co V-2 (test code = target nucleic 01939-1) acids are not detected in thi s [...] revoked sooner. Fact Sheet for Healthcare Providers: https://www.[employer]/Documents/Xp ert%20Xpress%20SAR S%20CoV-2/Fact%20S heets/3023802%20S ARS-COV-2%20HEALTH CARE%20PROVIDERS%2 0FACT%20SHEET.pdf Fact Sheet for Healthcare Patients: https://www.[employer]/Documents/Xp ert%20Xpress%20SAR S%20CoV-2/Fact%20S heets/3023801%20S ARS-COV-2%20PATIEN T%20FACT%20SHEET.p df Lab Interpretation Normal (test code = 79832-1) [facility]2022-02-26 00:54:18 Test Item Value Reference Interpretation Comments Range SARS-COV2/RT-PCR Negative Negative The SARS-Co V-2 (test code = target nucleic 55707-2) acids are not detected in thi s [...] revoked sooner. Fact Sheet for Healthcare Providers: https://www.[employer]/Documents/Xp ert%20Xpress%20SAR S%20CoV-2/Fact%20S heets/302-3802%20S ARS-COV-2%20HEALTH CARE%20PROVIDERS%2 0FACT%20SHEET.pdf Fact Sheet for Healthcare Patients: https://www.[employer]/Documents/Xp ert%20Xpress%20SAR S%20CoV-2/Fact%20S heets/302-3801%20S ARS-COV-2%20PATIEN T%20FACT%20SHEET.p df Lab Interpretation Normal (test code = 51464-0) [facility]2022-02-26 00:54:18 Test Item Value Reference Range Interpretation Comments SARS-COV2/RT-PCR Negative Negative The SARS-Co V-2 target (test code = nucleic acids a re not 0167105) detected in thi s specimen. Negative result [...] revoked sooner. Fact Sheet for Healthcare Providers: https://www.[employer]/Documents/Xpert%20Xpress%20SARS%20CoV-2/Fact%20Sheets/3023802%19OFFU-JJC-1%20 HEALTHCARE%20PROVIDERS%20FACT%20SHEET.pdf Fact Sheet for Healthcare Patients: https://www.[employer]/Documents/Xpert%20Xp ress%20SARS%20CoV-2/Fact%20Sheets/3023801%98NQIU-XMJ-9%20PATIENT%20FACT%20SHEET .pdfCOMPREHENSIVE METABOLIC [id number] 22:35:11 Test Item Value Reference Range Interpretation [...] St age Description sq m Result G1 Norm al or high >=90 G2 Mildly decreased 60-89 [...] not appl icable for dialysis patien ts Wildlife Biologist ID - [id number] 22:34:35 Test Item Value Reference Range Interpretation Comments MAGNESIUM (BEAKER) 2.1 mg/dL 1.6-2.6 Specimen slightly (test code = 627) hemolyzed Wildlife Biologist ID - BSPROTHROMBIN TIME/[id number] 22:30:47 Test Item Value Reference Range Interpretation Comments PROTIME (BEAKER) 15.3 seconds 11.9-14.2 H (test code = 759) INR (BEAKER) (test 1.28 See_Comment [Automat ed message] code = 370) The system [employer] generated this result transmitted ref erence range: <=5.90. The reference range was not used to int erpret this result as normal/abnormal . RECOMMENDED COUMADIN/WARFARIN INR THERAPY RANGESSTANDARD DOSE: 2.0 - 3.0 Includes: PROPHYLAXIS for venous thrombosis, systemic embolization; TREATMENT for venous thrombosis and/or pulmonary embolus.HIGH RISK: Target INR is 2.5-3.5 for patients with mechanical heart valves.CBC W/PLT COUNT & AUTO [id number] 22:15:27 Test Item Value Reference Range Interpretation [...] (test code = 2801) [employer] - Hdefuycreqse5272-59-55 21:30:[id number] ON [facility] TRANSFUSED 02/25/22 1155 [id number] AP [facility] TRANSFUSED 02/25/22 1318 [id number] AP [facility] TRANSFUSED 02/25/22 1529Type [id number] 21:30:00 Test Item Value Reference Range Interpretation [...] from now? NOVaginitis Panel 3 by DNA [id number] 17:54:00 Test Item Value Reference Range Interpretation Comments Vaginitis Panel 3 by DNA Probe VPIIICANDI (test code = VP3) Vaginitis Panel 3 by DNA Probe N (test code = VP31) Vaginitis Panel 3 by DNA Probe VPIIITRICH (test code = VP31) [id number] 17:33:00 Test Item Value Reference Range Interpretation [...] code = BASO#) 0.0 thou/uL 0.0-0.2 N [id number] 16:38:00 Test Item Value Reference Range Interpretation [...] Seen UABAC) Urine Source: Urine VoidedMolecular Testing [id number] 15:14:00 Test Item Value Reference Range Interpretation Comments Molecular Testing Not Detected NotDetected Performanc e of the MM (test code = Cepheid SARS -CoV-2 has [id number]) only beenestab lished in nasopharyngeal swab specimens. [...] Test: UnknownHospitalized: UnknownICU: UnknownDate of Symptom Onset: [id number]: UnknownReason for Testing: Admission ScreeningSource: Nasopharyngeal SwabSymptomatic [...] add on to prior labsRetype Verify-Blood Type [id number] 12:14:00 Test Item Value Reference Range Interpretation Comments Blood Type Rh (test code = BT) A POSITIVE [id number] 11:38:00 Test Item Value Reference Range Interpretation [...] EGFRCR) Estimated GFR: Greater than 90 mL/min/1.73 a8Ecsfceoj eGFR is based on the CKD-EPI 2021 equation thatdo es not use a race [...] code 8 U/L 8-55 N = ALT) Tmebydnce2746-10-09 11:38:00 Test Item Value Reference Range Interpretation Comments Chemistry (test code = LIP) 13 U/L 8-78 N Chemistry - [id number] 11:37:00 Test Item Value Reference Range Interpretation Comments Chemistry - Lactate (test code = 1.9 mmol/L 0.5-2.2 N LACTSEP-T) HGB [id number] 18:56:00 Test Item Value Reference Range Interpretation Comments HEMOGLOBIN (test code = HGB) 10.0 G/DL 12.0-16.0 L HEMATOCRIT (test code = HCT) 30.3 % 37-47 L MEAN CELL HGB CONCENTRATION (test 33.0 G/DL 33-37 N code = MCHC) - DUP AB/PEL/SC [id number] 18:20:00 [facility] 1985 Sex: F Patient Name: YULIYA LARA Unit No: [id number] EXAMS: CPT CODE: [id number] DUP A B/PEL/SC COMP 42637 EXAMINATION: - DUP AB/PEL/SC COMP, - US TRANSVAGINAL NON OB, - US PELVIC COMPLETE INDICATION: BLEEDING COMPARISON: None available at time of dictation LOCATION: [facility] TECHNIQUE: Grayscale and color Doppler and spectral Doppler sonographic images were obtained of the pelvis using transabdominal and endovaginal technique. FINDINGS: Uterus measures 8.2 x 5.3 x 4.5 cm. No uterine massesare seen. Endometrial stripe measures 7 mm in [...] Armond Owens MD; Dallin Sanchez DO Technologist: Sanujanita Woo, Trnscrbd D/ (1819) [id number].[email or web address] Orig Print D/T: S: 10/11/2021 (1822) Probe: [facility] NAME: YULIYA LARA [address] PHYS: [id number] Dallin [place] [address] : 1985 AGE: 36 SEX: F LOC: SHERRI PHONE #: [phone] EXAM DATE:10/11/2021 STATUS: REG ER FAX #: RAD NO: Page 1 Signed Report- US PELVIC [id number] 18:20:00[facility] 1985 Sex: F Patient Name: YULIYA LARA Unit No: [id number] EXAMS: CPT CODE: [id number] US PE LVIC COMPLETE 76670 EXAMINATION: - DUP AB/PEL/SC COMP, - US TRANSVAGINAL NON OB, - US PELVIC COMPLETE INDICATION: BLEEDING COMPARISON: None available at time of dictation LOCATION: [facility] TECHNIQUE: Grayscale and color Doppler and spectral [...] DO Technologist: Sanjuanita Woo, Trnscrbd D/ (1819) [id number].[email or web address] Orig Print D/T: S: 10/11/2021 (1822) Probe: [facility] NAME: YULIYA LARA [address] PHYS: Shea [place] [address] : 1985 AGE: 36 SEX: F LOC: SHERRI PHONE #: [phone] EXAM DATE: 10/11/2021 STATUS: REG ER FAX #: RAD NO: Page1 Signed Report- US TRANSVAGINAL NON [id number] 18:20:00 [facility] : 1985 Sex: F Patient Name: YULIYA LARA Unit No: [id number] EXAMS: CPT CODE: [id number] [place] [address] EXAMINATION: - DUP AB/PEL/SC COMP, - US [...] in thickness and is homogeneous in echotexture. Rightovary measures 1.8 x 1.7 x 1.6 cm and is unremarkable in appearance. Blood flow is documented withinthe right ovary on Doppler images. 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 UnknownTHROMBOPLASTIN TIME [id number] 14:40:00 Test Item Value Reference Range Interpretation Comments THROMBOPLASTIN TIME 30.9 SECONDS 24.7-38.0 N *Therap eutic level PARTIAL (test code = for hep felecia: 1.5 - PTT) 2.5 times the average patient value of 30.0 seconds. The aP TT tet should not be used to evaluat e low moleculat weigh t heparin anticoagulant therapy. Is patient on anticoagulants? UnknownCOMPREHENSIVE METABOLIC [id number] 14:34:00 Test Item Value Reference Range Interpretation [...] TOTAL (test code = ALKP) TROP-I HIGH [id number] 14:34:00 Test Item Value Reference Range Interpretation [...] taking high doses of Biotin. HCG SERUM [id number] 14:27:00 Test Item Value Reference Range Interpretation [...] using aquantitative h CG assay. CBC W/AUTO [id number] 14:24:00 Test Item Value Reference Range Interpretation [...] x10 3/uL 0.0-0.2 N AG HEPATITIS B [id number] 12:39:00 Test Item Value Reference Range Interpretation Comments AG HEPATITIS B SURFACE (test code = Negative Negative HBSAG) AB RUBELLA [id number] 12:39:00 Test Item Value Reference Range Interpretation Comments AB RUBELLA IGG (test code = RUBGAB) 1.77 IMMUNE >0.99 HIV 1 2 COMBO AG/AB [id number] 12:39:00 Test Item Value Reference Range Interpretation Comments HIV 1 2 COMBO AG/AB Non Reactive NonReactive HIV 4th Generation SCREEN (test code = Detects HIV-specific [id number]) antibodies and HIV-p24 antigen. 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 [facility] SRCIST) RAPID PLASMA [id number] 09:39:00 Test Item Value Reference Range Interpretation Comments RAPID PLASMA REAGIN (test code = Nonreactive Nonreactive RPR) HIV 1/2 RAPID [id number] 09:39:00 Test Item Value Reference Range Interpretation Comments HIV 1/2 RAPID SCREEN (test code = NonReactive NonReactive [id number]) RAPID PLASMA [id number] 09:17:00 Test Item Value Reference Range Interpretation Comments RAPID PLASMA REAGIN (test code = RPR) Nonreactive HIV 1/2 RAPID [id number] 09:17:00 Test Item Value Reference Range Interpretation Comments HIV 1/2 RAPID SCREEN (test code = NonReactive NonReactive [id number]) DRUG OF ABUSE SCREEN [id number] 06:33:00 Test Item Value Reference Interpretation Comments [...] by scott mazariegos methods (i.e., GC/MS) at [facility]. Results of scre en may not be usedin crimi nal justice, job performance or professionalcre dential review, or infa nt custody issues. Negativ e Mora Level ng/ml ------- ----- Cocaine 300 Methamphetamine (Ecstacy) 500 Cannabinoid s (THC) 50 Amphetamine 100 0 Barbiturates 20 0 Benzodiazepines 200 Opiates 300 Phencyclidi ne (PCP) 25 UA RFLX [id number] 05:46:00 Test Item Value Reference Range Interpretation [...] URINE SOURCE: Clean CatchCOVID 19 Asymptomatic IH [id number] 05:13:00 Test Item Value Reference Interpretation Comments [...] allows for the detection o f SARS-CoV wguYNKF-VjE-5. The test detects, but does not differentiate,b etween the two viruses. " Resu lts are for the identification of CTMW-NwN-5xqazz ocapsid protein antigen. Antige n is generallydetect [...] Compliance, or Certificate of Accreditation CBC W/AUTO [id number] 05:00:00 Test Item Value Reference Range Interpretation [...] X10 3/uL 0.0-0.2 N NRBC#) AB RUBELLA [id number] 08:19:00 Test Item Value Reference Range Interpretation Comments AB RUBELLA IGG (test 1.22 index Immune >0.99 Non-im mune <0.90 code = RUBGAB) Equivocal 0.9 0 - 0.99 Immune >0.99Per formed At: [facility] [address] [place], [place] [id number] Everardo Schmidt MD Ph:[phone] [id number] 06:07:00 Test Item Value Reference Range Interpretation Comments HEMATOCRIT (test code = HCT) 32.0 % 37-47 L ISTAT CORD [id number] 20:50:00 Test Item Value Reference Range Interpretation [...] Performe d by certified (test code = 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 Results US Pelvic Transvag W Doppler [...] 03/18/222125 Transcribed Date/Time:CT Abdomen Pelvis W Con [facility] : 1985 Sex: [facility] Pt Name: YULIYA HAMILTON [address] Phys: [place] [address] : 1985 Age: 36 SEX:F [phone] Exam Date:03/18/22 Status: REG ER Acct: [id number] Loc: ERS Pt Unit #: [id number] Report #: [id number] CC: EDTEMP PROVIDER Boy Ndiaye MD CAT SCAN REPORT Report Status: Signed Order # Category/Exam [id number] CT/CT Abdomen Pelvis W Con ([id number]): . Results CT Abdomen Pelvis W Con [...] Luna MD Electronically Signed Date/Time: 03/18/221949 Technologist: AALIYAH.JULI Dictated Date/Time: 03/18/221945 Transcribed Date/Time:XR Chest 1 View Portable [facility] Y[facility] HAMILTON : 1985 Sex: [facility] Pt Name: YULIYA HAMILTON [address] Phys: [place] [address] : 1985 Age: 36 SEX:F [phone] Exam Date:03/18/22 Status: REG ER Acct: [id number] Loc: ERS Pt Unit #: [id number] Report #: [id number] CC: Boy Ndiaye MD IMAGING SERVICES REPORT Report Status: Signed Order # Category/Exam [id number] RAD/XR Chest 1 View Portable ([id number]): . Results XR Chest 1 View Portable HISTORY: Chest pain COMPARISON: 02/25/2022 FINDINGS: The heart size is normal. The lungs are well expanded without focal areas ofconsolidation, pneumothorax or pleural effusions. IMPRESSION: No radiographic evidence of acute cardiopulmonary process. Reported By: Mat Diaz MD Electronically Signed Date/Time: 03/18/221854 Technologist: Dictated Date/Time: 03/18/221853 Transcribed Date/Time:MRI Pelvis W WO Con Name: YULIYA PHILIP : 1985 Sex: [facility] Pt Name: YULIYA PHILIP [address] [facility] Phys: [place] [address] : 1985 Age: 36 SEX:F Exam Date: 03/10/22 Status: ADM IN Acct: [id number] [facility] Unit #: [id number] Report #: [id number] CC: Narcisa Ruiz MD MRI REPORT Report Status: Signed Order # Category/Exam [id number] MRI/MRI Pelvis W WO Con ([id number]): . Results MRI Pelvis W WO Con History: Cervical mass Comparison: CT prior day Findings: Ulcerative circumferentialcervical mass has a craniocaudal length of 4.6 [...] Normal appearance of both ovaries. No pelvic adenopath y. No abnormal bone marrow signal. Left Bartholin gland cyst measures 7 mm. 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 No extraserosal extension appreciated nor pelvic adenopathy. Reported By: SALEEM MCGILL Electronically Signed Date/Time: 03/12/22805 Technologist: ALONZO Dictated Date/Time: 03/12/22 08 Transcribed Date/Time:US Renal Bilateral STANDARDName: YULIYA PHILIP : 1985 [facility] Pt Name: YULIYA PHILIP [address] [facility] Phys: Gurmeet Naylor III, [place] [address] : 1985 Age: 36 SEX:F Exam Date: 03/09/22 Status: ADM IN Acct: [id number] Loc: [facility] Pt Unit #: [id number] Report #: [id number] CC: Bárbara Lemons MD, III, Joe MD ULTRASOUND REPORT Report Status: Signed Order # Category/Exam [id number] ULT/US Renal Bilateral STANDARD ([id number]): . Results US Renal Bilateral STANDARD HISTORY: [...] 03/09/221714 Transcribed Date/Time:US [facility]vic [facility]ag [facility] : 1985 [facility] Pt Name: YULIYA PHILIP [address] Phys: [place] [address] : 1985 Age: 36 SEX:F [phone] Exam Date: 03/09/22 Status: DEP ER Acct: [id number] Loc: ERS Pt Unit #: [id number] Report #: [id number] CC: Livier Carver MD ULTRASOUND REPORT Report Status: Signed Order # Category/Exam [id number] ULT/US Pelvic Transvag W D oppler ([id number]): . Results PRELIMINARY REPORT EXAM: US Pelvis, Complete. CLINICAL HISTORY: HX: VAG BLEEDING, CERVICAL MASS. SEE NOTES ON LAST IMAGE. THANKS TECHNIQUE: Transvaginal and transabdominal pelvic ultrasound (complete) with image documentation. 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 UTERUS/CERVIX: Measures 9.5 x 4.6 x 5.5 cm demonstrating a 6.5 x 6.3 x 5.1 cm lobular soft tissue mass in the lower uterine segment extending into the cervix RIGHT OVARY: Normal follicles. No adnexal mass. Normal blood flow. Measures 2.9 x 1.1 x 3.9 cm demonstrating a 1.8 x 1.5 x 1.5 cm cyst LEFT OVARY: Normal follicles. No adnexal mass.Normal blood flow. Measures 3.1 x 1.3 x 2.1 cm FREE FLUID: No free fluid. IMPRESSION: Lobular soft tissue mass in the cervix extending into the lower uterine segment. This may represent a fibroid however other pathology is not excluded and clinical correlation is advised witha view to possible biopsy. 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 Results PRELIMINARY REPORT EXAM: CT Abdomen [...] with a pelvic mass was [facility] evaluation and treatment. Patient [...] appendix is identified. PERITONEUM: No free fluid. Nofree air. LYMPH NODES: No lymphadenopathy. REPRODUCTIVE: There is masslike prominence of the cervix,which appears enlarged and measures approximately 7.8 x5.4 [...] Rosales MD Mar 09, 2022 3:13:[address] Abdomen Pelvis W Con HISTORY: Pelvic [...] normal in size. It is retrocecal in loca tion. CT of pelvis performed with contrast: There is masslike fullness to the lower uterine segmentor cervix region. No significant pelvic lymphadenopathy no [...] 03/09/22810 Transcribed Date/Time:XR Chest 1 View Portable [facility]: YULIYA PHILIP : 1985 Sex: [facility] Pt Name: YULIYA PHILIP Orgenesis Phys: ER* STANDING MEDICAL DOC ORDER BRITTNEY Vitale [address] : 1985 Age: 36 SEX:F [phone] Exam Date: 03/08/22 Status: REG ER Acct: [id number] Loc: [facility] Pt Unit #: [id number] Report #: [id number] CC: ER* STANDING MEDICAL DOC ORDER IMAGING SERVICES REPORT Report Status: Signed Order # Category/Exam [id number] RAD/XR Chest 1 View Portable ([id number]): . Results XR Chest 1 View Portable History: Chest pain Comparison: None. Findings: Lungs are clear. No pneumothorax. No effusion. No acute osseous abnormality. Impression: No acute intrathoracic abnormality. Reported By: SALEEM MCGILL Electronically Signed Date/Time: 03/08/222345 Technologist: LIZETT Dictated Date/Time: 03/08/222339 Transcribed Date/Time:US Pelvic Transvag W Doppler [facility]: YULIYA HAMILTON : 1985 Sex: [facility] Pt Name: YULIYA HAMILTON [address] Phys: [place] [address] : 1985 Age: 36 SEX:F [phone] Exam Date: 02/25/22 Status: REG ER Acct: [id number] Loc: ERS Pt Unit #: [id number] Report #: [id number] CC: Louisa Sosa DO ULTRASOUND REPORT Report Status: Signed Order # Category/Exam [id number] ULT/US Pelvic Transvag W Doppler ([id number]): . Results Exam: Pelvic ultrasound including Transvaginal, [...] 2.3 x 3.5 cm. 1.3 x 1.8 cmfollicle cyst. Left ovary:Not visualized. No abscess or significant abnormal fluid collection. Vascular duplex examination demonstrates no evidence for ovarian torsion IMPRESSION: Evidence for 2 solid masses which appear to involve the cervix, with neoplasm being a strong concern. Follow-up pelvic MRIwith and without IV contrast recommended for further assessment. Reported By: Woody Ramirez MD Electronically Signed Date/Time: 02/25/22 1502 Technologist: Dictated Date/Time: 02/25/22 1456 Transcribed Date/Time:XR Chest 1 View [facility]able[facility] : 1985 Sex: [facility] Pt Name: YULIYA HAMILTON [address] Phys: [place] [address] : 1985 Age: 36 SEX:F [phone] Exam Date: 02/25/22 Status: REG ER Acct: [id number] Loc: ERS Pt Unit #: [id number] Report #: [id number] CC: Louisa Sosa DO IMAGING SERVICES REPORT Report Status: Signed Order # Category/Exam [id number] RAD/XR Chest 1 View Portable ([id number]): . Results XR Chest 1 View Portable HISTORY: Cough COMPARISON: None FINDINGS: The heart size is normal. The lungs are well expanded without focal areas of consolidation, pneumothorax or pleural effusions. IMPRESSION: No radiographic evidence of acute cardiopulmonary process. Reported By: Mat Diaz MD Electronically Signed Date/Time: 02/25/221120 Technologist: EVELYN Dictated Date/Time: 02/25/221120 Transcribed Date/Time: CT Abdomen Pelvis W Con [facility] BR[facility]ANName: YULIYA HAMILTON : 1985 Sex: [facility] Pt Name: YULIYA HAMILTON [address] Phys: [place] [address] : 1985 Age: 36 SEX:F [phone] Exam Date: 02/25/22 Status: REG ER Acct: [id number] Loc: ERS Pt Unit #: [id number] Report #: [id number] CC: ED TEMP PROVIDER Sheila Louisa SERRA CAT SCAN REPORT Report Status: Signed Order # Category/Exam [id number] CT/CT Abdomen Pelvis W Con ([id number]): . Results CT abdomen and pelvis with [...] Aaron Stone MD Electronically Signed Date/Time: 02/25/22 1329 T echnologist: JOAN Dictated Date/Time: 02/25/22 132 Transcribed Date/Time: Notes Date/Time Note Provider Source 2022-03-16 18:34:00-00:00 [facility] Name: YULIYA RICARDO Thomas STLSJX [address] [facility] : 1985, Age: 36, S ex: [place] [address] Unit #: [id number], St atus: DIS IN Location: [address] Report D[address] Dr.: Gabe Casas DO Admission Date: 03/09/22 Report #: [id number] Discharge Date: 03/12/22 CC: Hospitalist Progress Note Report Status: Signed - Subjective Encounter Date: 03/12/22 Subjective: Patient seen and examined. N o acute issues overnight. Nursing reports no issues overnight. - Objective Vital Signs Weight: Weight Weight 160 lb Result Diagrams: 03/11/22 18:46 03/11/22 18:46 Hospitalist ROS - Review of Systems Constitutional: denies: fever, chills, sweats, w eakness, malaise, other Eyes: denies: pain, vision c hange, conjunctivae inflammation, eyelid inflammation, redness, other ENT: denies: ear pain, ear d ischarge, nose pain, nose discharge, nose congestion, mouth pain, mouth swelling, throat pain, throat swelling, other Respiratory: denies: cough, dry, shortness of breath, hemoptysis, SOB with excertion, pleuritic pain, sputum, wheezing, other Cardiovascular: denies: ches t pain, palpitations, orthopnea, paroxysmal noc. dyspnea, edema, light headedness, other Gastrointestinal: denies: na usea, vomiting, abdominal pain, diarrhea, constipation, melena, guzman tochezia, other Genitourinary: denies: dysur ia, frequency, incontinence, hematuria, retention, other Musculoskeletal: denies: nec k pain, shoulder pain, arm pain, back pain, hand pain, leg pain, foot pain, other All other systems reviewed; all pertinent +/- no erna in HPI/Subj Hospitalist Exam Vitals: Weight Weight 160 lb General Appearance: NAD, awake alert Eye: PERRL, anicteric sclera ENT: normocephalic atraumatic, no oropharyngeal lesions, moist mucosa Neck: supple Heart: RRR, no murmur, no gallops, no rubs, norm al peripheral pulses Respiratory: CTAB, no wheeze s, no rales, no ronchi, normal chest expansion, no tachypnea, normal percussion Gastrointestinal: soft, non- tender, non-distended, normal bowel sounds, no palpable masses, no hepatomegaly, no splenomegaly, no bruit Extremities: no cyanosis, no clubbing, no edema Hosp A/P - Plan old records reviewed/req Plan: Patient is a 36-year-old fem laya with recent diagnosis of squamous cell carcinoma of the cervix. She reports outpatient follow-up with provider at [facility] in [place], Dr. Stringer, last visit 2 weeks ago. She states she was seen at [place] ED on 02/25 for vaginal bleeding concerns, and was given 3 units of PRBC for symptomati c anemia at that time. She returned to the [place] ED yesterday with onset of pelvic pain as well as continued vaginal bleeding. Prior to transfer to the [facility] she was given TXA and 1 unit PRBC . Symptomatic anemia In setting of heavy vaginal bleeding, 1 unit PRBC given prior to transfer to [facility]. Patient also given TXA with marked impro vement in vaginal bleeding. Closely monitor labs Transfuse as needed Pelvic pain 03/09/2022: CT abdomen pelv is W Con with findings of masslike prominence of the cervix. Follow- up Renal ultrasound unremarkable. Patient given Demerol IM by primary team Continue [place] Hypotension Baseline BP maintaining 99/50 since initial pre sentation to [place] ED. Closely monitor vital signs Continue IVF Chronic Constipation As needed MiraLAX, Colace Monitor I/O UTI Continue IV ceftriaxone Trend labs, trend cultures Squamous cell carcinoma cervix Continue outpatient followin g with provider at [facility] in [place], [place], Dr. Stringer. Patient states [facility] [place], [place]. Pending MRI outpatient for cancer staging once released from current facility. REGISTERED CLIENT ASSOCIATE following. Patient is G 19, P 11, A8, serum preg negative. Patient medically stable. Ho spitalist team will sign off for now. Reconsult us should you need us. Thank you for this consult ===== DVT prophylaxisSCD. GI prophylaxisProtonix. CODE STATUSfull code. Total time spent in care of this patient: 40 min utes <Electronically signed by Gabe Casas MD> 09/292022-03-13 14:15:00-00:00 [facility] Name: YULIYA PHILIP Ching Layne STLSJX [address] [facility] : 1985, Age: 36, S ex: [place] [address] Unit #: [id number], St atus: DIS IN Location: [address]- Dictated by: Ching Layne MD *r Admission Date: 03/09/22 Report #: [id number] Discharge Date: 03/12/22 CC: Ching Layne MD *r NO PCP PROVIDER Bárbara Lemons MD, Thomas DO DISCHARGE SUMMARY REPORT Report Status: Signed DATE OF ADMISSION: 03/09/2022 DATE OF DISCHARGE: 03/12/2022 RESIDENT: Dr. Ching Layne. ADMITTING PHYSICIAN: Dr. Naylor. DISCHARGING PHYSICIAN: Dr. Sheldon. CONSULT: General Medicine. PROCEDURES: Renal ultrasound on 03/09/2022, [facility] shows unremarkable renal ultrasound. Pelvic MRI on 03/10/2022, which heladio ws circumferential ulcerative cervical malignancy involvi ng the anterior superior vaginal wall as well as the anterior lower uterine body. No extrase katie extension appreciated nor pelvic adenopathy. EKG which shows sinus bradycardia with a rate o f 57. PRIMARY DIAGNOSIS: Squamous cell carcinoma of t he cervix. SECONDARY DIAGNOSES: 1. Incarceration. 2. Gastroesophageal reflux disease. 3. Symptomatic pelvic pain likely secondary to primary diagnosis. 4. Chronic constipation. 5. Urinary tract infection. 6. Anemia secondary to likely squamous cell car cinoma of the cervix. DISCHARGE MEDICATIONS: 1. Tylenol No. 3 two tabs orally p.o. q.6 hours as needed. 2. Colace 100 mg p.o. b.i.d. as needed. 3. Pepcid 20 mg p.o. b.i.d. DISCONTINUED MEDICATIONS: None. HPI/HOSPITAL COURSE: Beto zhang is a 36-year-old, G19, P11 female who presented with pelvic pain and vaginal bleeding. She was trans ferred to the [facility] in [place] on 02/25/2022 after she was seen for pelvic pain and bleeding and was seen by gynecologic oncologist, Dr. Stringer, who found a cervical mass suspicious for cancer. 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 She was later discharged from [facility] and was stable. She was due to have MRI for staging of her cancer. On 02/25, she r eceived blood transfusion for anemia secondary to her vaginal bleeding, received 3 total units. She most recently was seen in the ER for retrosternal chest pain, va ginal bleeding and pelvic pain. She was cleared in the main ER and brought to the floor for admission by the OB hospitalist. Prior to coming to the floor, she was given TXA for blee ding, symptoms improved. Her bleeding remained mild. However, her pelvic xavier n continued. The patient was admitted for pain control a nd to monitor her vaginal bleeding and monitor her H and H. General Medical Team was consulted for medical management. The patient remained stable and did not require any blood transfusions. Her H and H on discharge were 10 and 30.1. Her pain was impr karla with Tylenol No. 3, which is the only medication that she can easily get at the detention that is stronger than NSAIDs. Encouraged patient to schedule routine followu p with her gynecologic oncologist, Dr. Stringer, at [facility] for further management for squamous cell carcinoma of the cervix. DISPOSITION: Stable. DISCHARGE INSTRUCTIONS: 1. Location, to detention. 2. Diet; regular diet. 3. Activity as tolerated. 4. Followup: Followup with Dr. Stringer, Gynecologic Oncology as previously scheduled for further management of the cervical cancer. Job ID: [id number] Dictated by: Ching Layne MD *r <Electronically signed by Ching Layne MD *r> 04/18/22 0924 <Electronically signed by Ulysses Sheldon MD> 0842 Dictated Date/Time: 04/15/221652 Transcribed Date/Time: 04/16/22 0405 Lan Administrator: LOPEZ 2022-03-12 06:38:00-00:00 [facility] Name: YULIYA RICARDO Ching Layne STLSJX [address] [facility] : 1985, Age: 36, [place]: [place] [address] Unit #: [id number], St atus: ADM IN Location: [address] Report D[address] Dr.: Ching Layne MD *r Admission Date: 03/09/22 Report #: [id number] Discharge Date: CC: Brief Progress Note Report Status: Signed <Ching Layne J - Last Filed: 03/12/22 06:38> - Brief Progress Note Encounter Date: 03/12/22 Encounter Time: 06:38 S: doing well today. pain co ntrolled, bleeding light. labs yesterday WNL with improved Hgb O:General: NAD Resp: no resp distress Cardiac: strong S1, S2. No murmur. RRR Abdomen: soft, no guarding o r peritoneal signs but distended and mildly tender to palpation psych: A Ox3. cooperative w exam Selected Entries 03/12/22 04:10 Temperature 97.9 F Pulse Rate 64 Blood Pressure 94/49 L [Left Lateral] Respiratory 16 Rate O2 Sat by Pulse 98 Oximetry Oxygen Delivery Room Air Method A/P: Squamos Cell Carcinoma of the Cervix -following w Dr Myke Mallory, [employer] [facility] -MRI done for staging, pending official read. unable to get ahold of radiology -bleeding stable, vitals stable -pain controlled, will d/c with Tylenol #3 GERD -improved w Pepcid dispo: back to detention today. <Ulysses Sheldon - Last Filed: 03/12/22 06:44> Addendum - Attending - Attending Attestation Date/Time: 03/12/22 0642 I personally evaluated the p atient and discussed the management with Dr. Layne. Feeling better this AM, labs last night all WNL. DC this AM, back to facility with care for SCC of cervix to follow. MRI remains pending. I agree with the History, Examination, Assessmen t and Plan documented above. <Electronically signed by Ching Layne MD> 0 03/12/22 0639 <Electronically signed by SARAH SHELDON MD> 03/12 0644 2022-03-11 18:36:00-00:00 [facility] Name: YULIYA RICARDO Gabe Casas STLSJX [address] [facility] : 1985, Age: 36, [place]: [place] [address] Unit #: [id number], St atus: ADM IN Location: [address] Report Dict Dr.: Gabe Casas DO Admission Date: 03/09/22 Report #: [id number] Discharge Date: CC: Hospitalist Progress Note Report Status: Signed - Subjective Encounter Date: 03/11/22 Subjective: Patient seen and examined to day. Patient very tearful during visit. Nursing staff present during visit. Patient tearful becau se she wants to go home and see her family. Earlier today patient reported to nursing staff th at she was having chest pain an 8 out of 10 to the center of her chest. EKG was done. When examining the patient she says it was more like a numbness not any chest pain - Objective Vital Signs Weight: Vital Signs (12 hours) Temp Pulse Resp BP BP Pulse Ox 03/11/22 15:06 98.0 F 58 L 16 94/53 L 98 03/11/22 13:56 98.2 F 62 17 94/53 L 98 03/11/22 11:53 98.1 F 60 20 91/50 L 99 03/11/22 07:27 98.7 F 63 20 92/53 L 97 Weight Weight 160 lb I O: I/O 03/10/22 03/11/22 03/12/22 06:59 06:59 06:59 Intake Total 1850 1560 1550 Output Total 41 1999 1753 Balance 1809 -440 -203 Result Diagrams: 03/10/22 04:14 03/10/22 04:14 Hospitalist ROS - Review of Systems Constitutional: denies: fever, chills, sweats, w eakness, malaise, other Cardiovascular: reports: chest pain Gastrointestinal: reports: n ausea. denies: vomiting, abdominal pain, diarrhea, constipation, melena , hematochezia, other - Medication Medications: Active Medications Generic Name Dose Route Start Last Admin Trade Name Freq PRN Reason Stop Dose Admin Acetaminophen 650 mg 03/09/22 09:34 03/10/22 08: 02 Acetaminophen 325 Mg Tab PO 650 mg Q4H PRN Administration Headache/Fever/Mild Pain (1-3) Acetaminophen/Codeine Phosphate 2 tab 03/10/22 1 0:45 03/11/22 12:03 Acetaminophen/Codeine 30-300mg Tablet PO 2 tab Q6H PRN Administration Pain-Moderate to Severe (4-10) Ceftriaxone Sodium 1 gm/ 100 mls @ 200 mls/hr 15:00 03/11/22 14:56 Sodium Chloride IVPB 100 mls Q24HR RIGO Administration Lactated Ringer's 1,000 mls @ 75 mls/hr 03/10/22 07:45 03/11/22 05:56 Lactated Ringer's IV 1,000 mls .[id number] RIGO Administration Lorazepam 0.5 mg 03/11/22 15:24 03/11/22 16:53 Lorazepam 0.5 Mg Tab PO 0.5 mg Q4H PRN Administration Anxiety Polyethylene Glycol 17 gm 03/09/22 18:00 2 18:52 Polyethylene Glycol 3350 17 Gm Packet PO 17 gm DAILYPRN PRN Administration Constipation Hospitalist Exam Vitals: Vital Signs (12 hours) Temp Pulse Resp BP BP Pulse Ox 03/11/22 15:06 98.0 F 58 L 16 94/53 L 98 03/11/22 13:56 98.2 F 62 17 94/53 L 98 03/11/22 11:53 98.1 F 60 20 91/50 L 99 03/11/22 07:27 98.7 F 63 20 92/53 L 97 Weight Weight 160 lb Neck: supple, symmetric, no thyromegaly Heart: RRR, no murmur, no gallops, no rubs Respiratory: CTAB, no wheezes, no rales, no ronc hi, normal chest expansion Gastrointestinal: soft, non-tender, non-distende d Hosp A/P - Plan old records reviewed/req Plan: Patient is a 36-year-old fem laya with recent diagnosis of squamous cell carcinoma of the cervix. She reports outpatient follow-up with provider at [facility] in [place], Dr. Stringer, last visit 2 weeks ago. She states she was seen at [place] ED on 02/25 for vaginal bleeding concerns, and was given 3 units of PRBC for symptomati c anemia at that time. She returned to the [place] ED yesterday with onset of pelvic pain as well as continued vaginal bleeding. Prior to transfer to the [facility] she was given TXA and 1 unit PRBC . Symptomatic anemia In setting of heavy vaginal bleeding, 1 unit PRBC given prior to transfer to [facility]. Patient also given TXA with marked impro vement in vaginal bleeding. Closely monitor labs Transfuse as needed Pelvic pain 03/09/2022: CT abdomen pelv is W Con with findings of masslike prominence of the cervix. Follow- up Renal ultrasound unremarkable. Patient given Demerol IM by primary team Continue [place] Hypotension Baseline BP maintaining 99/50 since initial pre sentation to [place] ED. Closely monitor vital signs Continue IVF Chronic Constipation As needed MiraLAX, Colace Monitor I/O UTI Continue IV ceftriaxone Trend labs, trend cultures Squamous cell carcinoma cervix Continue outpatient followin g with provider at [facility] in [place], [place], Dr. Stringer. Patient states [facility] in [place], [place]. Pending MRI outpatient for cancer staging once released from current facility. REGISTERED CLIENT ASSOCIATE following. Patient is G 19, P 11, A8, serum preg negative. ===== DVT prophylaxisSCD. GI prophylaxisProtonix. CODE STATUSfull code. Total time spent in care of this patient: 40 min utes <Electronically signed by Gabe Casas MD> 05/022022-03-11 18:33:00-00:00 [facility] Name: YULIYA RICARDO Xi Ching STLSJX [address] [facility] : 1985, Age: 36, S ex: [place] [address] Unit #: [id number], St atus: ADM IN Location: [address]-P Report Dict DrHarper: Ching Layne MD *r Admission Date: 03/09/22 Report #: [id number] Discharge Date: CC: Brief Progress Note Report Status: Signed <Ching Layne - Last Filed: 03/11/22 18:33> - Brief Progress Note Encounter Date: 03/11/22 Encounter Time: 18:33 went to patient bedside to andrew zamank in on her. she states she feels dizzy and is having burning in her chest when eating. she still has vaginal bleeding but "not what it was". she still endorses lower abdominal pain/bloating that is better with the medication. she had a MRI done, but no official read resulte d yet. vitals have remained normal. we will check labs tonight to ensure she has not lost enough blood to need a blood transfusion and make sure electrolytes are appropriate and these are not contributing to her dizziness. will trial pepcid for GERD we will observe overnight an d dc home in the AM if remains stable after we check labs and investigate the dizziness further Selected Entries 03/11/22 15:06 Temperature 98.0 F Pulse Rate 58 L Blood Pressure 94/53 L [Supine] Respiratory 16 Rate O2 Sat by Pulse 98 Oximetry Oxygen Delivery Room Air Method <Ulysses Sheldon - Last Filed: 03/11/22 18:59> Addendum - Attending - Attending Attestation Date/Time: 03/11/22 1857 I personally evaluated the p atient and discussed the management with Dr. Layne. MRI remains unread by Radiology. Voices c/o tonight of upper abdominal pain, will lab up and tx for GERD. Anticipate home in AM. I agree with the History, Examination, Assessmen t and Plan documented above. <Electronically signed by Ching Layne MD> 0 03/11/221834 <Electronically signed by SARAH SHELDON MD> 03/112022-03-11 06:15:00-00:00 [facility] Name: YULIYA RICARDO Ching STLSJX [address] [facility] : 1985, Age: 36, Sex: [place] [address] Unit #: [id number], St atus: ADM IN Location: [address] Report Dict Dr.: Ching Layne MD *r Admission Date: 03/09/22 Report #: [id number] Discharge Date: CC: Brief Progress Note Report Status: Signed <Ching Layne - Last Filed: 03/11/22 07:05> - Brief Progress Note Encounter Date: 03/11/22 Encounter Time: 06:15 S: patient complaining of lo wer abdominal pain/bloating but improved on T#3. bleeding is light. no events overnight O: General: NAD Resp: no resp distress Cardiac: strong S1, S2. No murmur. RRR Abdomen: soft, no guarding o r peritoneal signs but distended and mildly tender to palpation psych: A Ox3. cooperative w exam Selected Entries 03/11/22 04:25 Temperature 98.7 F Pulse Rate 72 Blood Pressure 91/50 L [Left Lateral] Respiratory 14 Rate O2 Sat by Pulse 98 Oximetry A/P: Squamos Cell Carcinoma of the Cervix -following w Dr Myke Mallory, [employer] [facility] -MRI done for staging, pending official read -bleeding stable, vitals stable -pain controlled, will d/c with Tylenol #3 dispo: back to detention today. w ill talk w guard when they are in room to see about where to send patient's pain meds <Narcisa Ruiz - Last Filed: 03/11/22 07:15> Addendum - Attending - Attending Attestation Date/Time: 03/11/22 0714 I personally evaluated the p atient and discussed the management with Dr. Layne. I agree with the History, Ex amination, Assessment and Plan documented above. D/c back to detention today. MRI done but not reported. Can send to obgyn hospitalist physician onc w hen requested. <Electronically signed by Ching Layne MD> 0 03/11/22706 <Electronically signed by Narcisa Ruiz MD> 0716 2022-03-10 16:38:00-00:00 [facility] [facility] Name: YULIYA RICARDO Yessenia Gabe STLSJX [address] [facility] : 1985, Age: 36, S ex: [place] [address] Unit #: [id number], St atus: ADM IN Location: [address] Report Dict DrHarper: Gabe Casas DO Admission Date: 03/09/22 Report #: [id number] Discharge Date: CC: Hospitalist Progress Note Report Status: Signed - Subjective Encounter Date: 03/10/22 Subjective: Patient seen and examined on rounds today. Patient not very talkative today but answers questions. She does appear not to be in any acute distress - Objective Vital Signs Weight: Vital Signs (12 hours) Temp Pulse Resp BP BP BP Pulse Ox 03/10/22 16:00 98.2 F 54 L 18 85/53 L 85/53 L 9 6 03/10/22 12:00 98.5 F 68 18 101/58 L 96 03/10/22 07:25 98.2 F 66 20 99/53 L 99/53 L 95 Weight Weight 160 lb I O: I/O 03/09/22 03/10/22 03/11/22 06:59 06:59 06:59 Intake Total 1850 Output Total 41 Balance 1809 Result Diagrams: 03/10/22 04:14 03/10/22 04:14 Hospitalist ROS - Review of Systems All other systems reviewed; all pertinent +/- no erna in HPI/Subj - Medication Medications: Active Medications Generic Name Dose Route Start Last Admin Trade Name Freq PRN Reason Stop Dose Admin Acetaminophen 650 mg 03/09/22 09:34 03/10/22 08: 02 Acetaminophen 325 Mg Tab PO 650 mg Q4H PRN Administration Headache/Fever/Mild Pain (1-3) Acetaminophen/Codeine Phosphate 2 tab 03/10/22 1 0:45 03/10/22 11:24 Acetaminophen/Codeine 30-300mg Tablet PO 2 tab Q6H PRN Administration Pain-Moderate to Severe (4-10) Ceftriaxone Sodium 1 gm/ 100 mls @ 200 mls/hr 15:00 03/10/22 14:48 Sodium Chloride IVPB 100 mls Q24HR RIGO Administration Lactated Ringer's 1,000 mls @ 75 mls/hr 03/10/22 07:45 03/10/22 08:03 Lactated Ringer's IV 1,000 mls .[id number] RIGO Administration Pantoprazole Sodium 40 mg 03/10/22 09:00 3 08:03 Pantoprazole 40 Mg Tab PO 40 mg DAILY RIGO Administration Polyethylene Glycol 17 gm 03/09/22 18:00 2 18:52 Polyethylene Glycol 3350 17 Gm Packet PO 17 gm DAILYPRN PRN Administration Constipation Hospitalist Exam Vitals: Vital Signs (12 hours) Temp Pulse Resp BP BP BP Pulse Ox 03/10/22 16:00 98.2 F 54 L 18 85/53 L 85/53 L 9 6 03/10/22 12:00 98.5 F 68 18 101/58 L 96 03/10/22 07:25 98.2 F 66 20 99/53 L 99/53 L 95 Weight Weight 160 lb General Appearance: NAD, awake alert Eye: PERRL, anicteric sclera ENT: normocephalic atraumatic, no oropharyngeal lesions, moist mucosa Neck: supple, symmetric, no JVD, no thyromegaly, no lymphadenopathy, no carotid bruit Heart: RRR, no murmur, no gallops, no rubs, norm al peripheral pulses Respiratory: CTAB, no wheeze s, no rales, no ronchi, normal chest expansion, no tachypnea, normal percussion Gastrointestinal: soft, non- tender, non-distended, normal bowel sounds, no palpable masses, no hepatomegaly, no splenomegaly, no bruit Extremities: no cyanosis, no clubbing, no edema Skin: normal turgor, no lesions, no rashes Neurological: cranial nerve grossly intact, normal sensation to touch, no weakness, no focal deficits, no new deficit Musculoskeletal: normal tone, normal strength, n o muscle wasting Psychiatric: normal affect, normal behavior, A O x 3 Hosp A/P - Plan old records reviewed/req Hospitalist H P A/P Plan: Patient is a 36-year-old fem laya with recent diagnosis of squamous cell carcinoma of the cervix. She reports outpatient follow-up with provider at [facility] in [place], Dr. Stringer, last visit 2 weeks ago. She states she was seen at [place] ED on 02/25 for vaginal bleeding concerns, and was given 3 units of PRBC for symptomati c anemia at that time. She returned to the [place] ED yesterday with onset of pelvic pain as well as continued vaginal bleeding. Prior to transfer to the [facility] she was given TXA and 1 unit PRBC . Symptomatic anemia In setting of heavy vaginal bleeding, 1 unit PRBC given prior to transfer to [facility]. Patient also given TXA with marked improvement in vaginal bleeding. Closely monitor labs Transfuse as needed Pelvic pain 03/09/2022: CT abdomen pelvi s W Con with findings of masslike prominence of the cervix. Follow-up Renal ultrasound unremarkable. Patient given Demerol IM by primary team Continue [place] Hypotension Baseline BP maintaining 99/50 since initial pres entation to [place] ED. Closely monitor vital signs Continue IVF Chronic Constipation As needed MiraLAX, Colace Monitor I/O UTI Continue IV ceftriaxone Trend labs, trend cultures Squamous cell carcinoma cervix Continue outpatient followin g with provider at [facility] in [place], [place], Dr. Stringer. Patient states she is [facility] in [place], [place]. Pending MRI outpatient for cancer staging once released from current facility. REGISTERED CLIENT ASSOCIATE following. Patient is G 19, P 11, A8, serum preg negative. ===== DVT prophylaxisSCD. GI prophylaxisProtonix. CODE STATUSfull code. Total time spent in care of this patient: 40 min utes <Electronically signed by Gabe Casas MD> 04/01 1639 2022-03-10 06:35:00-00:00 [facility] Name: YULIYA RICARDO Gurmeet Naylor STLSJX [address] [facility] : 1985, Age: 36, S ex: [place] [address] Unit #: [id number], St atus: ADM IN Location: [address]- Report Dict DrHarper: Gurmeet Naylor III, MD Admission Date: 03/09/22 Report #: [id number] Discharge Date: CC: Brief Progress Note Report Status: Signed - Brief Progress Note Encounter Date: 03/10/22 Encounter Time: 06:20 S HD #2 Continues with moderate bilateral pelvi c pain. No excessive vaginal bleeding. HD #2 rocephin. States that she slipped and fel l in the bathroom earlier. Did not hit her head, no injury. Did not notify the nursing staff. No shortness of breath, no chest pain, mild vaginal bleeding . O Vital Signs (24 hours) Temp Pulse Resp BP BP BP BP 03/10/22 04:01 98.4 F 77 18 101/60 110/56 L 03/10/22 00:00 98.8 F 86 18 92/51 L 94/50 L 03/09/22 20:00 99.4 F 62 18 117/54 L 114/56 L 03/09/22 16:15 98.6 F 60 18 98/49 L 03/09/22 14:39 98.3 F 57 L 18 99/55 L 03/09/22 13:35 73 16 99/56 L 03/09/22 12:34 67 18 92/54 L 03/09/22 11:40 97.8 F 60 20 88/54 L 03/09/22 10:30 98.6 F 71 18 96/57 L 03/09/22 09:36 97.7 F 59 L 20 99/58 L 03/09/22 09:00 98.3 F 60 18 110/73 BP Pulse Ox 03/10/22 04:01 94/50 L 99 03/10/22 00:00 95/55 L 99 03/09/22 20:00 122/58 L 99 03/09/22 16:15 97 03/09/22 14:39 99 03/09/22 13:35 99 03/09/22 12:34 97 03/09/22 11:40 99 03/09/22 10:30 97 03/09/22 09:36 97 03/09/22 09:00 97 No acute distress, alert, normal affect PUL chest clear to auscultation, unlabored norm al respirations CVR RRR AB nondistended, no masses, moderate mid lower pelvic tenderness, voluntary guarding, no rebound EXT no pathological pretibial edema, normal ref lexes, no calf tenderness Laboratory Results - last 12 hr 03/09/22 03/09/22 03/10/22 18:21 21:44 04:14 WBC RBC Hgb 8.6 L Hct 25.7 L MCV MCH MCHC RDW Plt Count MPV Immature Gran % (Auto) Nucleat RBC Rel Count Immature Gran # (Auto) Neutrophils % Lymphocytes % Monocytes % Eosinophils % Basophils % Neutrophils # Lymphocytes # Monocytes # Eosinophils # Basophils # Sodium 136 Potassium 3.8 Chloride 105 Carbon Dioxide 25 Anion Gap 10 BUN 9 Creatinine 0.66 Est GFR (CKD-EPI 2020) 115 Glucose 88 Calcium 8.2 Blood Type A POSITIVE Antibody Screen NEGATIVE Crossmatch See Detail 03/10/22 04:14 WBC 7.7 RBC 2.91 L Hgb 8.8 L Hct 27.0 L MCV 92.8 MCH 30.2 MCHC 32.6 RDW 15.2 H Plt Count 224 MPV 9.4 Immature Gran % (Auto) 0.3 Nucleat RBC Rel Count 0.0 Immature Gran # (Auto) 0.02 Neutrophils % 62.8 Lymphocytes % 26.0 Monocytes % 5.7 Eosinophils % 5.1 Basophils % 0.1 Neutrophils # 4.9 Lymphocytes # 2.0 Monocytes # 0.4 Eosinophils # 0.4 Basophils # 0.0 Sodium Potassium Chloride Carbon Dioxide Anion Gap BUN Creatinine Est GFR (CKD-EPI 2020) Glucose Calcium Blood Type Antibody Screen Crossmatch A Hospital day # 2 Pelvic pain, vaginal bleed. Pelvic pain continues. Vaginal bleeding i s scant. Appreciate consult by the Hospitalist team. Continues on IV rocephin. P Continue to adjust oral pain meds. Start motrin 800mg orally every 8 hrs prn pain. Decrease IV fluid LR rate to 75 cc/hr. I will discontinue IM demerol. Reevaluate for possible discharge home later today if her pain is under better control. jr <Electronically signed by Gurmeet Naylor III, MD> 05/30 1335 2022-03-09 17:38:00-00:00 [facility] Name: YULIYA RICARDO Sara STLSJX [address] : 1985, Age: 36, [place]: [place] [address] Unit #: [id number], atus: ADM IN Location: [place] [address] CS-P Report Dict DrHarper: Polly Celis [employer] Admission Date: 03/09/22 Report #: [id number] Discharge Date: CC: Hospitalist Consult Note Report Status: Signed Hospitalist Consult - Consult Date Date: 03/09/22 Time: 17:38 - Reason for Consult Reason for Consult: Medical Management Requesting Physician: Dr. Naylor - History and Present Illness HPI: Patient is a 36-year-old fem laya with recent diagnosis of squamous cell carcinoma of the cervix. She reports outpatient follow-up with provider at [facility] in [place], Dr. Stringer, last visit 2 weeks ago. She is scheduled to hav e an MRI for staging of the cancer; however due to her current incarceration status this call s not been done yet. She states she was seen at [place] ED on 02/25 for vaginal bleeding concerns, a nd was given 3 units of PRBC for symptomatic anemia at that time. She returned to the [place] ED yes terday with onset of pelvic pain as well as continued vaginal bleeding. Prior to transfer to the [facility] she was given TXA and 1 unit PRBC. She reports improvement to her vaginal b leeding, no nausea, emesis, chest pain or palpitations. Additionally she reports a history of chr onic constipation with her last BM yesterday. She denies dysuria or hematuria, but was found wit h an abnormal urinalysis. Given her new onset of lower pelvic pain she has been started on IV antib iotics. She describes her pelvic pain as intermittently sharp and cramping, increased in natur e over the past 2 weeks. She denies radiation or referral of her pain. She states she has not taken any analgesics for this pain prior to this hospital presentation. Due to her intermittent abdomina l pain, history of recent transfusions and hypotension the hospitalist team has been consulted for medical management. At this time the patient denies any new concerns or complaints. She reports mar ked improvement in her abdominal pain post administration of Demerol IV and [place] over the past several hours. - Allergies/Home Medication Allergies/Adverse Reactions: ibuprofen Allergy (Mild, Verified 03/10/22 08:24 ) hives NSAIDS (Non-Steroidal Anti-Inflamma Allergy ([place] ified 03/09/22 09:12) Penicillins Allergy (Verified 03/09/22 09:05) - Past History Past History: Medical HX: Squamous cell ca rcinoma of cervix, symptomatic anemia requiring transfusion, chronic constipation Surgical HX: None Family HX: Positive for diabetes, hypertension Social HX: Denies current us e of alcohol, tobacco or illicit drugs. Former smoker. Hospitalist ROS - Review of Systems Constitutional: denies: fever, chills, sweats, m alaise Eyes: denies: pain, vision c hange, conjunctivae inflammation, eyelid inflammation, redness Respiratory: denies: cough, dry, shortness of breath, hemoptysis, SOB with excertion, pleuritic pain, sputum, wheezing Cardiovascular: denies: ches t pain, palpitations, orthopnea, paroxysmal noc. dyspnea, edema Gastrointestinal: reports: a bdominal pain, constipation. denies: vomiting, diarrhea, melena, hematochezia Genitourinary: denies: dysuria, frequency, incon tinence, retention Musculoskeletal: denies: nec k pain, shoulder pain, arm pain, hand pain, leg pain, foot pain Skin: denies: rash, lesions, leoncio, bruising Neurological: denies: weakne ss, numbness, incoordination, change in speech, confusion, seizures All other systems reviewed; all pertinent +/- no erna in HPI/Subj - Medication Medications: Active Medications Generic Name Dose Route Start Last Admin Trade Name Freq PRN Reason Stop Dose Admin Hydrocodone Bitart/Acetaminophen 1 tab 03/09/22 09:34 03/09/22 12:48 Hydrocodone/Acetaminophen 5/325 Mg Tablet PO 1 tab Q4H PRN Administration Pain-Moderate (4-6) Lactated Ringer's 1,000 mls @ 100 mls/hr 2 09:45 03/09/22 10:28 Lactated Ringer's IV 1,000 mls .Q10H RIGO Administration Meperidine HCl 12.5 mg 03/09/22 09:53 03/09/22 1 0:28 Meperidine Hcl/Pf 25 Mg/Ml Vial IM 12.5 mg Q6HR PRN Administration Pain-Moderate to Severe (4-10) Hospitalist Exam Vitals: Vital Signs (12 hours) Temp Pulse Resp BP BP Pulse Ox 03/09/22 16:15 98.6 F 60 18 98/49 L 97 03/09/22 14:39 98.3 F 57 L 18 99/55 L 99 03/09/22 13:35 73 16 99/56 L 99 03/09/22 12:34 67 18 92/54 L 97 03/09/22 11:40 97.8 F 60 20 88/54 L 99 03/09/22 10:30 98.6 F 71 18 96/57 L 97 03/09/22 09:36 97.7 F 59 L 20 99/58 L 97 03/09/22 09:00 98.3 F 60 18 110/73 97 Weight Weight 160 lb General Appearance: NAD, awake alert Eye: PERRL, anicteric sclera ENT: normocephalic atraumatic, no oropharyngeal lesions, moist mucosa Neck: supple, symmetric, no JVD Heart: RRR, no gallops, no rubs, normal peripher al pulses Respiratory: CTAB, no wheezes Gastrointestinal: soft, non- distended, normal bowel sounds, no bruit, no guarding, voluntary guarding Extremities: no cyanosis, no edema Skin: normal turgor Neurological: cranial nerve grossly intact, normal sensation to touch, no weakness Musculoskeletal: normal tone, normal strength Psychiatric: normal affect, normal behavior, A O x 3 Hospitalist Results Result Diagrams: 03/10/22 04:14 03/10/22 04:14 Lab results: Laboratory Last Values Hgb 9.5 g/dL (12.0-15.5) L 03/09/22 12:38 Sodium 140 mmol/L (136-145) 03/09/22 12:38 Potassium 3.9 mmol/L (3.5-5.1) 12/31/22 12:38 Chloride 111 mmol/L (98-107) H 03/09/22 12:38 Carbon Dioxide 21 mmol/L (22-29) L 03/09/22 12:3 8 Anion Gap 12 mmol/L (10-20) 03/09/22 12:38 Hospitalist H P A/P Plan: Patient is a 36-year-old fem laya with recent diagnosis of squamous cell carcinoma of the cervix. She reports outpatient follow-up with provider at [facility] in [place], Dr. Stringer, last visit 2 weeks ago. She states she was seen at [place] ED on 02/25 for vaginal bleeding concerns, and was given 3 units of PRBC for symptomati c anemia at that time. She returned to the [place] ED yesterday with onset of pelvic pain as well as continued vaginal bleeding. Prior to transfer to the [facility] she was given TXA and 1 unit PRBC . Symptomatic anemia In setting of heavy vaginal bleeding, 1 unit PRBC given prior to transfer to [facility]. Patient also given TXA with marked improvement in vaginal bleeding. Closely monitor labs Transfuse as needed Pelvic pain 03/09/2022: CT abdomen pelvi s W Con with findings of masslike prominence of the cervix. Follow-up Renal ultrasound unremarkable. Patient given Demerol IM by primary team Continue [place] prn Hypotension Baseline BP maintaining 99/50 since initial pres entation to [place] ED. Closely monitor vital signs Continue IVF Chronic Constipation As needed MiraLAX, Colace Monitor I/O UTI Continue IV ceftriaxone Trend labs, trend cultures Squamous cell carcinoma cervix Continue outpatient followin g with provider at [facility] in [place], [place], Dr. Stringer. [facility] [place], [place]. Pending MRI outpatient for cancer staging once released from current facility. REGISTERED CLIENT ASSOCIATE following. Patient is G 19, P 11, A8, serum preg negative. DVT prophylaxisSCD. GI prophylaxisProtonix. CODE STATUSfull code. <Electronically signed by Polly QIU> 0 03/10/22 1708 2022-03-09 09:41:00-00:00 [facility] Name: YULIYA RICARDO Joe STLSJX [address] [facility] : 1985, Age: 36, [place]: [place] [address] Unit #: [id number], atus: [id number] Location: [address]-P Report Dict DrHarper: Gurmeet Naylor III, MD Admission Date: 03/09/22 Report #: [id number] Discharge Date: CC: History Physical Report Status: Signed - History Physical Encounter Time: 03/09/22 Encounter Time: 09:30 36 year old female G 19 P 11 AB 8 CC Pelvic pain, vaginal bleeding HPI She was initially seen in [place] on 02/25/22 the above noted complaints. She was ultimately[facility]red to [facility] in [place], 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 Dr Stringer, with e finding of a mass of the cervix suspicious for cancer. Her biopsy showed squamous cell carcinoma of th e cervix. She was later discharged home from [facility]. Completion of her work up for the cancer will b een done upon f/u with 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. She is to have MRI for staging of the cancer. In [place] on 02/25 sh garcía received blood transfusion for the anemia secondary to her vaginal bleeding. Recieved 3 units of [place] BC. Most recently she was seen here in our ER for retrosternal chest pain vaginal bleeding, pelvic pain. She was cleared in the main ER and brought to the floor for admiission by the OB Hospitalist. Prior to coming to the [facility] was given TXA for the bleeding, symptoms improved. Her bleeding is now mild. Her pelvic pain trev nues. It is located in the mid bilateral lower pelvis. She rates her pain 7/10. It is described as sharp and constan t. No shortness of breath, no chest pain, no nausea and vomiting, no dysuria. She had been having pelvi c pain over the past month, it worsened over the past 2 weeks. PMH ALLERGY, IBUPROFEN AND PENICILLIN OB G 19 P 11 AB 8 11 TSVD, 8 SAB no d and c. [employer] Monthly menses every month. LMP 2 weeks ago . 7 day of flow. History of trichimonas. Sqaumous cell carcinoma of the cervix, recent d iagnosis PMH Carcinoma of the cervix, constipation PSH Denied MEDS Iron FMH Positive for diabetes and hypertension F ormer smoker, no etoh abuse, drug use at present denied ROS No headache, no shortn ess of breath, no chest pain, no nausea and vomiting, abdominal pain as noted in the history of the present illness, no dysuria, las t bowel movement was yesterday. EXAM NAD Alert, awake, normal affect Vital Signs (12 hours) Temp Pulse Resp BP Pulse Ox 03/09/22 09:36 97.7 F 59 L 20 99/58 L 97 03/09/22 09:00 98.3 F 60 18 110/73 97 HEENT EOM grossly intact, head normocephalic PUL Chest clear to auscultation, unlabored norm al respirations CVR RRR AB Nondistended, no masses, moderate bilateral lower pelvic tenderness, no guarding or rebound SVE Deferred initially, mild vaginal spotting n oted on present peripad EXT No pathological pretibial edema, no calf te nderness, normal reflexes EXT Full range of motion WBC 7.8, Hgb 8.3, Hct 22.7, PLT 237 k, K+ 3.7, Creat 0.67, Gluc 107, AST 8, ALT 7, HCG neg. A Pelvic pain recent diagnosis of squamous can cer of cervix. staging pending MRI to be done. Vaginal bleeding LMP 2 weeks ago, present HGC n egative, mostly secondary to cervix carcinoma P Admit for pain control. Monitor her vaginal b leeding, H AND H. All questions answered. jr <Electronically signed by Gurmeet Naylor III, MD> 19262021-10-11 14:14:00-00:00 [id number] [place], [place] PATIENT NAME: YULIYA LARA ADMIT D ATE: 10/11/21 ACCOUNT NO: [id number] ROOM NO: AGE: 36 REPORT TYPE: ELECTROCARDIOGRAM SEX: F : 81 ADMITTING PHYSICIAN: ATTENDING PHYSICIAN:Dallin Sanchez DO Order: [id number] Test Reason : cp Test Date/Time Stamp: FriOct 11 2021 14:14:32 Blood Pressure : / mmHG Vent. Rate : 053 BPM Atrial Rate : 053 BPM P-R Int : 160 ms QRS Dur : 084 ms QT Int : 426 ms P-R-T Axes : 044 -19 038 degree s QTc Int : 399 ms Sinus bradycardia Otherwise normal ECG Confirmed by MD Sanchez John (), publications editor A IKE ZAMUDIO ([id number]) on 12/18/2021 8:47:39 AM Referred By: Self Referred Confirmed by:Dallin jeter MD Electronically Signed by Dallin Sanchez DO on 1 at 0847 PATIENT NAME: YULIYA LARA 2021-10-11 14:10:00-00:00 [facility] OR A [facility] OF [facility] EMERGENCY PROVIDER REPORT REPORT#:[id number] REPORT STATUS: Signed DATE:10/11/21 TIME: 141 PATIENT: YULIYA LARA UNIT #: [id number] ROOM/BED: AGE: 36 SEX: F PCP PHYS: Armond Owens MD SERVICE AUTHOR: Dallin Sanchez DO * ALL edits or amendments must be made on the [employer]/computer document * Dallin Sanchez 10/11/21 1410: HPI- Female Free Text HPI Notes Free Text HPI Notes Patient is a 36-year-old female, currently in [facility], presenting to the emergency room for evaluation of vaginal bleeding. Patient normally has 7-day periods and her most recent period ended about 10 days ago. Today she woke up and had heavy vaginal bleeding with passage of clots. She also had a near syncopal epi sode. Here in the emergency room she has some lower abdominal cramping and also complains of chest pain which has been intermittent over the past 2 weeks. She does have a history o f anemia and takes iron and states she also states she was once told she had hemophilia. General Initial Greet Date/Time 10/11/21 7335 Presentation Chief Complaint Vaginal bleeding Review of Systems Free Text ROS Notes Free Text ROS Notes Constitutional: No fevers or chills. No weakness Eyes: no visual changes. No eye pain, No eye dis charge ENT: No runny nose, no epistaxis, no sinus pain, no sore throat, no ear pain. No congestion Respiratory: No cough, no wheezing, no shortness of breath Cardiovascular: see HPI Gastrointestinal: see HPI; no nausea or vomiting, no diarrhea or constiptaion; no hematochezia or melena Genitourinary: see HPI Musculoskeletal: No musculoskeletal pain, No marin nt swelling, No edema Neurological: No headache, syncope or seizures. No extremity numbness or weakness Skin: no rashes. No itching All other systems negative Past Medical History - Adult Stated Complaint ABD PAIN/VAG BLEEDINGIN Allergies Coded Allergies: Penicillins (RASH-UNKNOWN 04/14/18) Uncoded Allergies: IBPROFEN (Intermediate, EDEMA 04/14/18) Home Medications Active Scripts traMADol/APAP (ULTRACET 37.5/325 MG) 1 TAB PO Q4 H PRN PRN ACUTE PAIN traMADol/APAP (ULTRACET 37.5/325 MG) 1 TAB PO Q 4H PRN PRN ACUTE PAIN #15 TABS Prov: 01/24/20 Reported Medications PNV WITH FE FUMARATE/FA () 1 TAB PO ELISEO Y FERROUS SULFATE (FEOSOL) 325 MG PO DAILY Physical Exam Vital Signs Review of Vital Signs Reviewed Free Text PE Notes Free Text PE Notes General: AO x 3, no acute distress; well nourish ed, well developed HEENT: Normal cephalic, atra umatic; Eyes: normal inspection; Throat: oropharynx is clear Neck: normal inspection, normal ROM, no lymphade nopathy Heart: RRR, no murmurs Lungs: clear bilaterally; no wheezing, rales or rhonchi; no respiratory distress Abdomen: soft, lower abdominal tenderness, non-d istended; no rigidity or guarding : mild vaginal bleeding at this time; pad has some dried blood on it. No clots noted; no vaginal discharge Extremities: no deformity or swelling Skin: no rash Neuro: CN II-XII intact; no focal neuro deficits Interpretation Diagnostics ECG #1 Interpretation Text/Dict Note sinus bradycardia, rate 53; no acute ST elevatio ns or depressions Date 10/11/21 Time 1414 Re-Evaluation MDM Re-Evaluation/Progress Re-Evaluation/Progress Text/Dict Note Patient was noted to have a blood pressure as low as 82 systolic here in the ED. Pelvic exam reveals mild vaginal bleeding at th is time without evidence of clots. Patient given IV fluid and Roceph in (based on results of UA) and BP has started to improve. 98/57 at time of tra nsfer. She is being transferred to the [facility] ER and was accepted by the ER physician in order to get further evaluation with US and for further monitoring. Time of Re-Eval 1605 Patient Discharge Departure Vital Signs/Condition Condition Stable Clinical Impression Clinical Impression Primary Impression: Abnormal vaginal bleeding Secondary Impressions: Anemia, Lower abdominal p ain, Pre-syncope Discharge/Care Plan Referrals Provider Referral: Armond Owens MD Address: [address] [place] [address], [address] [place] [address] Provider Referral: Yusra Arreguin MD Address: [address] [place] [address] [address] [place] [address] Mary Vo 10/11/21 1655: Physical Exam Vital Signs Vital Signs First Documented: Result Date Time Pulse Ox 97 10/11 1335 B/P 102/51 10/11 1335 B/P Mean 68 10/11 1334 O2 Delivery Room air 10/11 1334 Temp 36.9 10/11 133 Pulse 65 10/11 1335 Resp 16 10/11 1335 Last Documented: Result Date Time Pulse Ox 97 10/11 2054 B/P 104/64 10/11 2054 B/P Mean 77 10/11 2054 O2 Delivery Room air 10/11 2054 Temp 36.9 10/11 2054 Pulse 65 / 205 Resp 16 10/11 205 Interpretation Diagnostics Lab Results Interpretation Results Laboratory Tests 10/11/21 1838: [Embedded Image Not Available] 10/11/21 1405: [Embedded Image Not Available] Laboratory Tests: 10/11 10/11 10/11 1838 1725 1438 Chemistry POC Glucose (65 - 99 MG/DL) 80 Hematology Hgb (12.0 - 16.0 G/DL) 10.0 L Hct (37 - 47 %) 30.3 L MCHC (33 - 37 G/DL) 33.0 Urines Ur Spec Description Clean Catch Urine Color (YELLOW) YELLOW Urine Appearance (CLEAR) CLOUDY Urine pH (5.5 - 7.0) 6.0 Ur Specific Summers (1.001 - 1.035) 1.015 Urine Protein (NEGATIVE mg/dL) 25 H Urine Glucose (UA) (NEGATIVE mg/dL) NEGATIVE Urine Ketones (NEGATIVE mg/dL) NEGATIVE Urine Blood (NEGATIVE) 4+ H Urine Nitrite (NEGATIVE) NEGATIVE Urine Bilirubin (NEGATIVE) NEGATIVE Urine Urobilinogen (NORMAL mg/dL) NORMAL Ur Leukocyte Esterase (NEGATIVE) 500 H Urine RBC (NONE SEEN #/hpf) >50 H Urine WBC (<10 #/hpf) 11 - 20 Ur Squamous Epith Cells (<100 #/lpf) 0 - 20 Urine Bacteria (NONE SEEN #/hpf) 3+ Urine Mucus (NONE SEEN #/lpf) MANY Urine Culture Screen Criteria met Urine Comment LESS THAN 10 ML VOL 10/11 10/11 1405 1405 Chemistry Sodium (133 - 145 MMOL/L) 141 Potassium (3.6 - 5.2 MMOL/L) 4.1 Chloride (100 - 108 MMOL/L) 107 Carbon Dioxide (22 - 32 MMOL/L) 27 BUN (6 - 20 MG/DL) 13 Creatinine (0.60 - 1.00 MG/DL) 0.70 Estimated GFR (MDRD) (64 - 149) 94 Glucose (65 - 99 MG/DL) 85 Calcium (8.7 - 10.5 MG/DL) 8.1 L Total Bilirubin (0.0 - 1.0 MG/DL) 0.3 AST (15 - 37 Units/L) 3 L ALT (30 - 65 Units/L) 8 L Alkaline Phosphatase (50 - 136 Units/L) 57 Troponin I High Sens (< 51 ng/L) 4 Total Protein (6.4 - 8.2 G/DL) 6.9 Albumin (3.4 - 5.0 G/DL) 4.0 Globulin (1.5 - 3.8 G/DL) 2.9 Albumin/Globulin Ratio (1.1 - 2.2) 1.4 HCG, Qual (NEGATIVE) NEGATIVE Coagulation PT (9.9 - 13.2 SECONDS) 12.8 INR 1.09 APTT (24.7 - 38.0 SECONDS) 30.9 Hematology WBC (4.80 - 10.80 x10 3/uL) 5.69 RBC (4.2 - 5.4 x10 6/uL) 3.36 L Hgb (12.0 - 16.0 G/DL) 10.7 L Hct (37 - 47 %) 32.5 L MCV (81 - 99 FL) 96.7 MCH (27 - 31 PG) 31.8 H MCHC (33 - 37 G/DL) 32.9 L RDW Coeff of [place] (11.5 - 14.5 %) 13.7 Plt Count (150 - 450 x10 3/uL) 188 MPV (7.4 - 10.4 FL) 9.6 Neut % (Auto) (42 - 86 %) 55.4 Lymph % (Auto) (24 - 44 %) 37.8 Teller % (Auto) (0.0 - 4.0 %) 4.2 H Eos % (Auto) (0.0 - 2.7 %) 2.6 Baso % (Auto) (0.0 - 0.5 %) 0.0 Eos # (Auto) (0.0 - 0.5 x10 3/uL) 0.15 Baso # (Auto) (0.0 - 0.2 x10 3/uL) 0.00 Absolute Neuts (auto) (1.8 - 7.7 x10 3/uL) 3.15 Absolute Lymphs (auto) (1.0 - 4.8 x10 3/uL) 2.1 5 Absolute Monos (auto) (0.0 - 0.8 x10 3/uL) 0.24 Microbiology: Date/Time Procedure - Status Source Growth 10/11 1453 Urine Culture - RECD URINE Recent Impressions: ULTRASOUND - US TRANSVAGINAL NON OB 10/11 153 Report Impression - Status: SIGNED Entered: 10/11/20211822 IMPRESSION: Findings consistent with 1.9 cm left ovarian hem orrhagic or corpus luteum cyst. Otherwise unremarkable exam. Impression By: Whitney Chua MD ULTRASOUND - US PELVIC COMPLETE 10/11 1530 Report Impression - Status: SIGNED Entered: 10/11/2021 182 IMPRESSION: Findings consistent with 1.9 cm left ovarian hem orrhagic or corpus luteum cyst. Otherwise unremarkable exam. Impression By: Whitney Chua MD ULTRASOUND - DUP AB/PEL/SC COMP 10/11 1705 Report Impression - Status: SIGNED Entered: 10/11/2021 182 IMPRESSION: Findings consistent with 1.9 cm left ovarian hem orrhagic or corpus luteum cyst. Otherwise unremarkable exam. Impression By: Whitney Chua MD Re-Evaluation MDM Free Text MDM Notes Free Text MDM Notes Discussed case with Dr. Souleymane mariano, labs are unremarkable, patient is vitally stable at this time, repeat hemoglobin is unrem arkable, we will discharge the patient home with medroxyprogesterone for 10 days and call ve her follow-up with her primary care provider or her [employer]. Return to E D immediately if condition worsens. Additional Text 1652 patient arrived from [place], blo od pressure is 87/49, patient is alert and oriented at this time, s he states that her heavy menstrual bleeding started today. We will order the pelvic ultrasound at th is time. ED Course Medication(s) Ordered Medication(s) Ordered: Anti-Infective Agents Sig/Rigo Start time Last Medication Dose Route Stop Time Status Admin Ceftriaxone Sodium 1,000 MG X1ED STA 10/11 1505 DCD 10/11 Sodium Chloride 10 ML IV 10/12 0104 1534 Electrolytic, Caloric, And Rita Sig/Rigo Start time Last Medication Dose Route Stop Time Status Admin Sodium Chloride 1,000 ML STAT STA 10/11 1713 DC 10/11 IV 10/11 1812 1714 Sodium Chloride 1,000 ML BOLUS 10/11 1400 DCD 0 10/11 IV 02/08 1402 1534 Patient Discharge Departure Vital Signs/Condition Vital Signs First Documented: Result Date Time Pulse Ox 97 10/11 1335 B/P 102/51 10/11 1335 B/P Mean 68 10/11 1335 O2 Delivery Room air 10/11 1334 Temp 36.9 10/11 133 Pulse 65 10/11 1335 Resp 16 10/11 1335 Last Documented: Result Date Time Pulse Ox 97 10/11 2054 B/P 104/64 10/11 2054 B/P Mean 77 10/11 2054 O2 Delivery Room air 10/11 2054 Temp 36.9 10/11 2054 Pulse 65 10/11 2054 Resp 16 10/11 2054 All vital signs available at the time of this en try have been reviewed. Disposition Decision Discharge )( Discharged to Home Yes )( Time 1924 )( Date 10/11/21 Discharge/Care Plan Counseled Regarding Diagnosi s, Lab results, Imaging studies, Need for follow-up, When to return to ED Rx Drug Database Reviewed No Prescriptions Medroxyprogesterone (Auto) Prescriptions Current Visit Scripts medroxyPROGESTERone (PROVERA) 10 MG PO DAILY medroxyPROGESTERone (PROVERA) 10 MG PO DAILY #1 0 TABS Patient Instructions ED Dysfunctional Uterine Bl eeding, ED Hypotension, Orthostatic, ED Ovarian Cyst Additional Instructions Rest, push fluids, medroxyprogesterone 1 tablet daily for 10 days, Tylenol or ibuprofen as needed for pain, follow-up with you r [employer] MANAGER call soon for an appointment, return to ED immediately if conditi on worsens. Discharge Note I have spoken with the patie nt and/or caregivers. I have explained the patient's condition, diagnoses and manuel atment plan based on the information available to me at this time. I have answered the patient's and/ or caregiver's questions and addressed any concerns. The patient and/or careg noble have as good an understanding of the patient 's diagnosis, condition and treatment plan as can be expected at this point. The vital signs have bee n stable. The patient's condition is stable and appr opriate for discharge from the emergency department. The patient will pursue further outpatient evalu ation with the primary care physician or other designated or consulting phys ician as outlined in the discharge instructions. The patient and/or caregivers are agreeable to this plan of care and follow-up instructions have been exp lained in detail. The patient and/or caregivers have received these instructio ns in written format and have expressed an understanding of the discharge inst ructions. The patient and/or caregivers are aware that any significant change in condition or worsening of symptoms should prompt an immediate return to [facility] or the closest emergency department or a call to 911. Andi Walters 10/12/21 0458: Patient Discharge Departure Supervising Physician Note MidLv Saw Pt Alone I did not see this patient; however, I was available for consultation during the patients ER visit Electronically Signed by Mary Vo 10/11/21 at 2359 Electronically Signed by Andi Walters MD on 07/29 at 0891 Electronically Signed by Dallin Sanchez DO on at 0716 RPT #:[id number] END OF REPORT 2020-01-25 07:58:00-00:00 [facility] OB Postpart Progr Note REPORT#:[id number] REPORT STATUS: Signed DATE:01/25/20 TIME: 0758 PATIENT: YULIYA LARA UNIT #: [id number] ROOM/BED: Y214-1 : 83 AGE: 34 SEX: F ATTEND: Justin Kelly MD ADM AUTHOR: Pa Kelly MD * ALL edits or amendments must be made on the [employer]/computer document * Subjective Subjective Admission EGA: Weeks: 35 Days: 1 EGA at delivery (wks/days): 35 weeks (2 days) Status/Day: post (day 1) Patient reports: Patient reports: Yes normal lochia, Yes pain management effective, Yes tolerating po well, Yes voiding well, Yes tolerating ambulation Objective Nursing Documentation Review Nursing Data: The data set between the solid lines has been im ported from nursing documentation. Any exceptions have been noted be low under Provider comments. Feeding preference: Provider comments on imported nursing data: [] General VS: Vital Signs: Date Time Temp Pulse Resp B/P B/P Pulse O2 O2 F low FiO2 Mean Ox Delivery Rate 01/24 0530 98.0 66 18 94/55 01/23 2359 98.3 69 18 95/51 98 01/23 2034 98.2 60 18 111/52 98 01/23 1655 98.1 69 18 92/52 98 01/23 1355 98.6 78 16 92/67 01/23 1348 63.0 01/23 1348 71 84/46 01/23 1333 68.0 01/23 1333 76 93/49 01/23 1318 68.0 01/23 1318 72 97/50 01/23 1233 64.0 01/23 1233 67 89/48 01/23 1230 99.0 16 01/23 1218 64.0 01/23 1218 70 100/51 01/23 1203 55.0 01/23 1203 65 79/38 01/23 1148 69.0 01/23 1148 67 93/49 01/23 1133 68.0 01/23 1133 74 98/53 01/23 1130 98.6 16 01/23 1116 84 99 01/23 1111 75 98 01/23 1106 75 98 01/23 1103 88.0 01/23 1103 64 121/61 01/23 1101 68 98 01/23 1056 73 98 01/23 1051 72 98 01/23 1048 79.0 01/23 1048 69 114/58 01/23 1046 73 97 01/23 1041 74 97 01/23 1036 84 97 01/23 1033 81.0 01/23 1033 81 130/60 01/23 1031 81 95 01/23 1026 76 95 01/23 1021 90 95 01/23 1018 98.1 16 01/23 1018 88.0 01/23 1018 78 134/61 01/23 1016 84 97 01/23 1011 115 99 01/23 1006 111 99 01/23 1003 97.0 01/23 1003 113 128/76 91 01/23 1001 92 98 01/23 0956 82 100 01/23 0951 86 100 01/23 0948 105.0 01/23 0948 98 134/87 01/23 0946 91 100 01/23 0941 97 99 01/23 0936 87 98 01/23 0933 84.0 01/23 0933 88 124/58 01/23 0931 83 98 01/23 0930 98.1 16 01/23 0926 80 100 01/23 0921 85 99 01/23 0919 88.0 01/23 0919 88 120/71 01/23 0916 97 100 01/23 0911 93 100 01/23 0906 76 100 01/23 0903 97.0 01/23 0903 71 132/76 01/23 0901 66 100 / 0856 71 100 01/23 0851 72 100 / 0849 94.0 01/23 0849 53 120/81 01/23 0846 77 98 01/23 0841 66 98 01/23 0836 66 98 / 0832 78.0 01/23 0832 65 110/60 01/23 0831 73 99 01/23 0826 91 98 01/23 0821 77 95 01/23 0817 74.0 01/23 0817 68 105/58 01/23 0816 73 99 01/23 0811 87 96 01/23 0806 83 98 / 0802 67.0 01/23 0802 63 92/53 01/23 0801 65 96 Patient Weight Weight (lb): 210 Weight (oz): Weight (kg): 95.254 Physical Exam Neuro: Exam: alert, oriented x3, normal speech Abdomen: soft, no abnormal tenderness Uterus: firm, involution appropriate, non-tender Result Findings/Data: Laboratory Tests: 01/24 01/23 0554 1029 Blood Gas POC Cord Blood pH (7.000 - 7.400) 7.298 Cord Blood PCO2 (41 - 51 mmHG) 50.1 Cord Blood PO2 (80 - 105 mmHg) 22 L Cord Blood HCO3 (23 - 28 mmol/L) 24.5 Cord Base Excess (-2 - 3 mmol/L) -2 Cord O2 Saturation (95 - 98 %) 31 L Instrument Cord Hematology Hct (37 - 47 %) 35.1 L Diagnosis, Assessment Plan Diagnosis, Assessment Plan Assessment: nml progress Plan: circumcision today, discharge today Plan discussed with: patient Electronically Signed by Pa Kelly MD on at 0759 RPT #:[id number] END OF REPORT 2020-01-24 10:26:00-00:00 [facility] OB Delivery Note REPORT#:[id number] REPORT STATUS: Signed DATE:01/24/20 TIME: 1026 PATIENT: YULIYA LARA UNIT #: [id number] RO[address]BED: [address] : [birth year] AGE: 34 SEX: F ATTEND: Justin Kelly MD ADM AUTHOR: Pa Klely MD * ALL edits or amendments must be made on the [employer]/computer document * OB Delivery Pre-delivery GBS status: GBS status: unknown Prophylaxis administered: penicillin evaluation at delivery: NRP certified pe rsonnel Admission EGA: Weeks: 35 Days: 1 EGA at delivery (wks/days): 35 weeks (2 days) Baby A Information Baby A information Delivery date: 01/24/20 Delivery time: 101 status: live born Wt of baby (grams): 3420 Wt of baby (lbs/oz): 7 Gender: male 1 minute: 9 5 minutes: 9 Presentation: vertex ABG details Baby A Cord blood gases: collected Nuchal cord Baby A Nuchal cord: no Vaginal Delivery Vaginal delivery: Labor: spontaneous Vaginal delivery: spontaneous Amniotic fluid: clear Anesthesia type: epidural anesthesia Episiotomy: none Laceration repair: 3-0 suture (chromic) Placenta: expressed, intact Post delivery meds used: oxytocin, cytotec Count: correct Vaginal packing: No Mother's condition: mother stable 's condition: infant stable in room Lacerations: Perineal laceration(s): 1st Degree Extraction details OVD performed: no Shoulder dystocia present: no Blood Loss/Details Blood loss at delivery: <1000 ml QBL at delivery (ml's): 100 Electronically Signed by Pa Kelly MD on at 1028 RPT #:[id number] END OF REPORT 2020-01-24 10:26:00-00:00 [facility] ([facility]) OB Delivery Note REPORT#:[id number] REPORT STATUS: Signed DATE:01/24/20 TIME: 1026 PATIENT: YULIYA LARA UNIT #: [id number] ROOM[address] : 83 AGE: 34 SEX: F ATTEND: Justin Kelly MD ADM AUTHOR: Pa Kelly MD * ALL edits or amendments must be made on the el [employer]/computer document * See Addendum OB Delivery Pre-delivery GBS status: GBS status: unknown Prophylaxis administered: penicillin [place] evaluation at delivery: NRP certified pe rsonnel Admission EGA: Weeks: 35 Days: 1 EGA at delivery (wks/days): 35 weeks (2 days) Baby A Information Baby A information Delivery date: 01/24/20 Delivery time: 101 status: live born Wt of baby (grams): 3420 Wt of baby (lbs/oz): 09/15 Gender: male 1 minute: 9 5 minutes: 9 Presentation: vertex ABG details Baby A Cord blood gases: collected Nuchal cord Baby A Nuchal cord: no Vaginal Delivery Vaginal delivery: Labor: spontaneous Vaginal delivery: spontaneous Amniotic fluid: clear Anesthesia type: epidural anesthesia Episiotomy: none Laceration repair: 3-0 suture (chromic) Placenta: expressed, intact Post delivery meds used: oxytocin, cytotec Count: correct Vaginal packing: No Mother's condition: mother stable 's condition: stable in room Lacerations: Perineal laceration(s): 1st Degree Extraction details OVD performed: no Shoulder dystocia present: no Blood Loss/Details Blood loss at delivery: <1000 ml QBL at delivery (ml's): 100 Electronically Signed by Pa Kelly MD on at 1028 Addendum 1: 01/24/20 1032 by Pa Kelly MD Admitted at 37 weeks Delivered at 37 weeks 1 day Electronically Signed by Pa Kelly MD on at 1033 RPT #:[id number] END OF REPORT 2020-01-24 08:21:00-00:00 [facility] ([facility]) OB Intrapart Prog Note REPORT#:[id number] REPORT STATUS: Signed DATE:01/24/20 TIME: 820 PATIENT: YULIYA LARA UNIT #: [id number] ROOM/BED: D.Y287-1 : 83 AGE: 34 SEX: F ATTEND: Justin Kelly MD ADM AUTHOR: Pa Kelly MD * ALL edits or amendments must be made on the el [employer]/computer document * Subjective Subjective Admission EGA (wks/days): 35 weeks Patient reports: Patient reports: Yes comfortable with epidural Objective Nursing Documentation Review Nursing data: The data set between the solid lines has been im ported from nursing documentation. Any exceptions have been noted be low under Provider comments. __ ROM date: ROM time: __ Provider comments on imported nursing data: [] General VS: Last Documented: Result Date Time Pulse Ox 99 01/23 0756 Pulse 66 01/23 0756 B/P Mean 72.0 01/23 0748 B/P 94/53 01/23 0748 Temp 98.3 01/23 0716 Resp 16 01/24 716 Vital Signs Date Temp Pulse Resp B/P B/P Mean Pulse Ox FiO2 01/23 98.2-98.5 66-97 16-18 82-110/48-60 63.0-7 7.0 94-100 Patient Weight Weight (lb): 210 Weight (oz): Weight (kg): 95.254 Objective Cervical/ exam: Dilatation (cm): 8 Effacement (%): 67226 station: - 2 presentation: cephalic Est. wt (lbs) 5 Pelvis exam: Clinically adequate for this fetus: yes Uterine activity: Monitor: toco Frequency (description): irregular Procedures: artificial rupture memb FHR Evaluation Baby A: Baby A FHR category: category 1 Result Findings/Data: Laboratory Tests: 01/23 01/23 0430 0408 Hematology WBC (4.80 - 10.80 x10 3/uL) 7.27 RBC (4.2 - 5.4 x10 6/uL) 3.68 L Hgb (12.0 - 16.0 G/DL) 11.9 L Hct (37 - 47 %) 35.3 L MCV (81 - 99 FL) 95.9 MCH (27 - 31 PG) 32.3 H MCHC (33 - 37 G/DL) 33.7 RDW Coeff of [place] (11.5 - 14.5 %) 13.0 Plt Count (150 - 450 x10 3/uL) 220 MPV (7.4 - 10.4 FL) 10.8 H Neut % (Auto) (42 - 86 %) 52.7 Lymph % (Auto) (24 - 44 %) 40.2 Teller % (Auto) (0.0 - 4.0 %) 4.5 H Eos % (Auto) (0.0 - 2.7 %) 2.2 Baso % (Auto) (0.0 - 0.5 %) 0.0 Eos # (Auto) (0.0 - 0.5 x10 3/uL) 0.16 Baso # (Auto) (0.0 - 0.2 x10 3/uL) 0.00 Abs Immat Gran (auto) (0.00 - 0.03 x10 3/uL) 0. 03 Absolute Neuts (auto) (1.8 - 7.7 x10 3/uL) 3.83 Absolute Lymphs (auto) (1.0 - 4.8 x10 3/uL) 2.9 2 Absolute Monos (auto) (0.0 - 0.8 x10 3/uL) 0.33 Absolute Nucleated RBC (0.0 - 0.2 X10 3/uL) 0.0 Immature Gran % (0.0 - 2.0 %) 0.4 Nucleated RBC % (0.0 - 0.0 %) 0.0 Serology SARS-CoV-2 Ag (Rapid) (Negative) NEGATIVE Toxicology Urine Opiates Screen (NEGATIVE) NEGATIVE Ur Barbiturates Screen (NEGATIVE) NEGATIVE Ur Phencyclidine Scrn (NEGATIVE) NEGATIVE Ur Amphetamine Screen (NEGATIVE) NEGATIVE MDMA (NEGATIVE) NEGATIVE U Benzodiazepines Scrn (NEGATIVE) NEGATIVE Urine Cocaine Screen (NEGATIVE) NEGATIVE U Cannabinoids Screen (NEGATIVE) NEGATIVE Urines Ur Spec Description Clean Catch Urine Color (YELLOW) Light-Yellow Urine Appearance (CLEAR) CLEAR Urine pH (5.5 - 7.0) 6.5 Ur Specific Summers (1.001 - 1.035) 1.003 Urine Protein (NEGATIVE mg/dL) NEGATIVE Urine Glucose (UA) (NEGATIVE mg/dL) NORMAL Urine Ketones (NEGATIVE mg/dL) NEGATIVE Urine Blood (NEGATIVE) NEGATIVE Urine Nitrite (NEGATIVE) NEGATIVE Urine Bilirubin (NEGATIVE) NEGATIVE Urine Urobilinogen (NORMAL mg/dL) NORMAL Ur Leukocyte Esterase (NEGATIVE) NEGATIVE Urine Comment VOLUME 10-12 ML Microbiology: Date/Time Procedure - Status Source Growth 01/23 8428 Group B Streptococcus Culture - COLB VAGINAL Diagnosis, Assessment Plan Assessment: normal FHR pattern, normal progress of labor, stable, doing well Plan: anticipate vag delivery Plan discussed with: patient, nurse Electronically Signed by Pa Kelly MD on at 0825 RPT #:[id number] END OF REPORT 2020-01-24 08:21:00-00:00 [facility]) OB Intrapart Prog Note REPORT#:[id number] REPORT STATUS: Signed DATE:01/24/20 TIME: 08 PATIENT: YULIYA LARA UNIT #: [id number] ROOM/BED: Y287-1 : 83 AGE: 34 SEX: F ATTEND: Justin Kelly MD ADM AUTHOR: Pa Kelly MD * ALL edits or amendments must be made on the el [employer]/computer document * See Addendum Subjective Subjective Admission EGA (wks/days): 35 weeks Patient reports: Patient reports: Yes comfortable with epidural Objective Nursing Documentation Review Nursing data: The data set between the solid lines has been im ported from nursing documentation. Any exceptions have been noted be low under Provider comments. __ ROM date: ROM time: __ Provider comments on imported nursing data: [] General VS: Last Documented: Result Date Time Pulse Ox 99 01/23 0756 Pulse 66 01/23 0756 B/P Mean 72.0 01/23 0748 B/P 94/53 01/23 0748 Temp 98.3 01/23 0716 Resp 16 01/23 0716 Vital Signs Date Temp Pulse Resp B/P B/P Mean Pulse Ox FiO2 01/23 98.2-98.5 66-97 16-18 82-110/48-60 63.0-7 7.0 94-100 Patient Weight Weight (lb): 210 Weight (oz): Weight (kg): 95.254 Objective Cervical/ exam: Dilatation (cm): 8 Effacement (%): 69294 station: - 2 presentation: cephalic Est. wt (lbs) 5 Pelvis exam: Clinically adequate for this fetus: yes Uterine activity: Monitor: toco Frequency (description): irregular Procedures: artificial rupture memb FHR Evaluation Baby A: Baby A FHR category: category 1 Result Findings/Data: Laboratory Tests: 01/23 01/23 0430 0408 Hematology WBC (4.80 - 10.80 x10 3/uL) 7.27 RBC (4.2 - 5.4 x10 6/uL) 3.68 L Hgb (12.0 - 16.0 G/DL) 11.9 L Hct (37 - 47 %) 35.3 L MCV (81 - 99 FL) 95.9 MCH (27 - 31 PG) 32.3 H MCHC (33 - 37 G/DL) 33.7 RDW Coeff of [place] (11.5 - 14.5 %) 13.0 Plt Count (150 - 450 x10 3/uL) 220 MPV (7.4 - 10.4 FL) 10.8 H Neut % (Auto) (42 - 86 %) 52.7 Lymph % (Auto) (24 - 44 %) 40.2 Teller % (Auto) (0.0 - 4.0 %) 4.5 H Eos % (Auto) (0.0 - 2.7 %) 2.2 Baso % (Auto) (0.0 - 0.5 %) 0.0 Eos # (Auto) (0.0 - 0.5 x10 3/uL) 0.16 Baso # (Auto) (0.0 - 0.2 x10 3/uL) 0.00 Abs Immat Gran (auto) (0.00 - 0.03 x10 3/uL) 0. 03 Absolute Neuts (auto) (1.8 - 7.7 x10 3/uL) 3.83 Absolute Lymphs (auto) (1.0 - 4.8 x10 3/uL) 2.9 2 Absolute Monos (auto) (0.0 - 0.8 x10 3/uL) 0.33 Absolute Nucleated RBC (0.0 - 0.2 X10 3/uL) 0.0 Immature Gran % (0.0 - 2.0 %) 0.4 Nucleated RBC % (0.0 - 0.0 %) 0.0 Serology SARS-CoV-2 Ag (Rapid) (Negative) NEGATIVE Toxicology Urine Opiates Screen (NEGATIVE) NEGATIVE Ur Barbiturates Screen (NEGATIVE) NEGATIVE Ur Phencyclidine Scrn (NEGATIVE) NEGATIVE Ur Amphetamine Screen (NEGATIVE) NEGATIVE MDMA (NEGATIVE) NEGATIVE U Benzodiazepines Scrn (NEGATIVE) NEGATIVE Urine Cocaine Screen (NEGATIVE) NEGATIVE U Cannabinoids Screen (NEGATIVE) NEGATIVE Urines Ur Spec Description Clean Catch Urine Color (YELLOW) Light-Yellow Urine Appearance (CLEAR) CLEAR Urine pH (5.5 - 7.0) 6.5 Ur Specific [place] (1.001 - 1.035) 1.003 Urine Protein (NEGATIVE mg/dL) NEGATIVE Urine Glucose (UA) (NEGATIVE mg/dL) NORMAL Urine Ketones (NEGATIVE mg/dL) NEGATIVE Urine Blood (NEGATIVE) NEGATIVE Urine Nitrite (NEGATIVE) NEGATIVE Urine Bilirubin (NEGATIVE) NEGATIVE Urine Urobilinogen (NORMAL mg/dL) NORMAL Ur Leukocyte Esterase (NEGATIVE) NEGATIVE Urine Comment VOLUME 10-12 ML Microbiology: Date/Time Procedure - Status Source Growth 01/23 1360 Group B Streptococcus Culture - COLB VAGINAL Diagnosis, Assessment Plan Assessment: normal FHR pattern, normal progress of labor, stable, doing well Plan: anticipate vag delivery Plan discussed with: patient, nurse Electronically Signed by Pa Kelly MD on at 0825 Addendum 1: 01/24/20 1032 by Pa Kelly MD Admitted at 37 weeks Electronically Signed by Pa Kelly MD on at 1032 RPT #:[id number] END OF REPORT 2018-04-17 06:54:00-00:00 [facility]) OB Postpart Progr Note REPORT#:[id number] REPORT STATUS: Signed DATE:04/17/18 TIME: 0654 PATIENT: YULIYA LARA UNIT #: [id number] ROOM/BED: [place] [address] : 83 AGE: 32 SEX: F ATTEND: Justin Kelly MD ADM AUTHOR: Armond Owens MD * ALL edits or amendments must be made on the el [employer]/computer document * Subjective Subjective Status/Day: post (2) Patient reports: Patient reports: Yes pain management effective, Yes tolerating p o well, Yes voiding well, Yes tolerating ambulation, No no complaints Objective Nursing Documentation Review Nursing Data: The data set between the solid lines has been im ported from nursing documentation. Any exceptions have been noted be low under Provider comments. Feeding preference: Provider comments on imported nursing data: [] Physical Exam Lungs: no distress Neuro: Exam: alert, oriented x3, normal speech Abdomen: no distension Lower extremities: Edema: trace Diagnosis, Assessment Plan Diagnosis, Assessment Plan Free Text A P: Pt stable on 2nd pp day. Oriented for discharge, po meds, pelvic rest, er, office fu, contraception. at 0655 RPT #:[id number] END OF REPORT 2018-04-16 06:51:00-00:00 [facility] ([facility]) OB Postpart Progr Note REPORT#:[id number] REPORT STATUS: Signed DATE:04/16/18 TIME: 06 PATIENT: YULIYA LARA UNIT #: [id number] ROOM/BED: Y213-1 : 83 AGE: 32 SEX: F ATTEND: Justin Kelly MD ADM AUTHOR: Hardik Buckley MD * ALL edits or amendments must be made on the el [employer]/computer document * Subjective Subjective Status/Day: post (day 1) Patient reports: Patient reports: Yes no complaints, Yes normal lochia, Yes pain management effective, Yes tolerating po well, Yes voiding well, Ye s voiding without pain, Yes tolerating ambulation, Yes flatus, No nausea, No vomiting, No excessive bleeding, No abdominal pain, No headache Objective Nursing Documentation Review Nursing Data: The data set between the solid lines has been im ported from nursing documentation. Any exceptions have been noted be low under Provider comments. Feeding preference: Provider comments on imported nursing data: [] General VS: Vital Signs: Date Time Temp Pulse Resp B/P B/P Pulse O2 O2 F low FiO2 Mean Ox Delivery Rate 04/16 0412 98.6 66 18 113/61 04/15 2352 97.8 66 18 94/56 04/15 1900 98.2 74 18 99/54 04/15 1637 98.1 72 16 102/48 04/15 1505 98.3 75 16 105/52 04/15 1444 98.0 18 04/15 1444 76.0 04/15 1444 75 109/53 04/15 1414 79.0 04/15 1414 97.7 68 18 112/59 04/15 1359 97.7 18 04/15 1359 79.0 04/15 1359 69 118/55 04/15 1345 97.7 18 04/15 1345 89.0 04/15 1345 66 131/62 04/15 1329 84.0 02/06 1329 97.7 73 18 117/65 02/06 1314 84.0 02/06 1314 97.7 82 18 122/66 02/06 1244 76.0 02/06 1244 66 108/53 02/06 1214 63.0 02/06 1214 68 86/50 02/06 1145 67.0 02/06 1145 65 94/49 02/06 1116 69.0 02/06 1116 71 94/51 02/06 1045 77.0 02/06 1045 72 110/53 02/06 1022 98.2 18 02/06 1015 70.0 02/06 1015 65 98/51 02/06 0945 81.0 02/06 0945 73 114/57 02/06 0914 69.0 02/06 0914 69 99/51 02/06 0846 73.0 02/06 0846 74 99/54 02/06 0815 71.0 02/06 0815 68 95/54 02/06 0744 74.0 02/06 0744 75 105/55 02/06 0714 70.0 02/06 0714 65 96/53 02/06 0708 98.5 18 Physical Exam Lungs: no distress Neuro: Exam: alert, oriented x3, normal speech Abdomen: soft, no abnormal tenderness, no guardi ng Uterus: involution appropriate, non-tender Fundus: below the umbilicus, non-tender Lacerations: Perineal laceration: none Lower extremities: Edema: none Result Findings/Data: Laboratory Tests: 04/16 04/15 0517 1322 Blood Gas POC Cord Blood pH (7.000 - 7.400) 7.240 Cord Blood PCO2 (41 - 51 mmHG) 56.0 H Cord Blood PO2 (80 - 105 mmHg) 15 L Cord Blood HCO3 (23 - 28 mmol/L) 24.0 Cord Base Excess (-2 - 3 mmol/L) -3 L Cord O2 Saturation (95 - 98 %) 15 L Instrument Arterial Hematology Hct (37 - 47 %) 32.0 L Diagnosis, Assessment Plan Diagnosis, Assessment Plan Assessment: nml progress Plan: routine care, discharge tomorro w at 0652 RPT #:[id number] END OF REPORT 2018-04-15 13:02:00-00:00 [facility]) OB Delivery Note REPORT#:[id number] REPORT STATUS: Signed DATE:04/15/18 TIME: 1302 PATIENT: YULIYA LARA UNIT #: [id number] ROOM/BED: [facility] : 83 AGE: 32 SEX: F ATTEND: Justin Kelly MD ADM AUTHOR: Pa Kelly MD * ALL edits or amendments must be made on the [employer]/computer document * OB Delivery Pre-delivery GBS status: GBS status: positive Prophylaxis administered: vancomycin evaluation at delivery: NRP certified pito rsmariela EGA (weeks/days): 39 weeks (3 days) General VS: Last Documented: Result Date Time B/P Mean 76.0 04/15 1244 B/P 108/53 04/15 1244 Pulse 66 04/15 1244 Temp 98.2 04/15 1022 Resp 18 04/15 1022 Pulse Ox 100 04/15 0433 Membranes: AROM ROM date: 04/15/18 ROM time: 0838 Amniotic fluid: clear Baby A Information Baby A information Delivery date: 04/15/18 Delivery time: 1310 status: live born Wt of baby (grams): 3195 Wt of baby (lbs/oz): 7/1 Gender: female 1 minute: 8 5 minutes: 9 Presentation: vertex (OP) ABG details Baby A Cord blood gases: collected Cord pH (arterial): 7.24 Nuchal cord Baby A Nuchal cord: no Vaginal Delivery Vaginal delivery Labor: induced Medications/Devices used: oxytocin Vaginal delivery: spontaneous Amniotic fluid: clear Anesthesia type: epidural anesthesia Episiotomy: none EBL (ml's): 200 Hemorrhage: no Placenta: expressed, intact Post delivery meds used: oxytocin Count: correct Mother's condition: mother stable 's condition: infant stable in room Lacerations: Perineal laceration: none Extraction details OVD performed: no Shoulder dystocia Shoulder dystocia present: no Electronically Signed by Pa Kelly MD on at 1506 RPT #:[id number] END OF REPORT 2018-04-15 08:43:00-00:00 [facility] OB Intrapart Prog Note REPORT#:[id number] REPORT STATUS: Signed DATE:04/15/18 TIME: 0843 PATIENT: YULIYA LARA UNIT #: [id number] ROOM/BED: [place] [address] : 83 AGE: 32 SEX: F ATTEND: Justin Kelly MD ADM AUTHOR: Pa Kelly MD * ALL edits or amendments must be made on the [employer]/Cyphoma document * Subjective Subjective Patient reports: Patient reports: Yes comfortable with epidural Objective Objective VS: Vital Signs Date Time Temp Pulse Resp B/P B/P Pulse O2 O2 F low FiO2 Mean Ox Delivery Rate 04/15 0644 74.0 02/ 0744 75 105/55 / 0714 70.0 02/06 0714 65 96/53 02/06 0708 98.5 18 02/ 0644 75.0 02/06 0644 78 108/52 02/06 0614 73.0 02/06 0614 70 101/54 02/06 0544 73.0 02/06 0544 67 101/52 02/06 0516 74.0 02/06 0516 70 103/54 02/06 0444 74.0 02/06 0444 69 101/58 02/06 0442 75.0 02/06 0442 61 100/60 02/06 0440 74.0 02/06 0440 67 96/63 02/06 0438 70.0 02/06 0438 69 97/55 02/06 0436 71.0 02/06 0436 66 95/57 02/06 0434 76.0 02/06 0434 63 103/60 02/06 0433 68 100 02/06 0432 77.0 02/06 0432 64 103/61 02/06 0430 74.0 02/06 0430 61 102/56 02/06 0428 73.0 02/06 0428 61 101/55 100 02/06 0426 79.0 02/06 0426 60 105/64 02/06 0424 76.0 02/06 0424 61 104/60 02/06 0423 66 100 02/06 0422 78.0 02/06 0422 75 106/60 02/06 0420 77.0 02/06 0420 66 106/61 02/06 0418 73 99 02/06 0413 74 100 02/06 0351 73.0 02/06 0351 67 103/51 02/06 0320 73.0 02/06 0320 62 104/53 02/06 0319 98.4 16 02/ 2326 78.0 02/ 2326 78.0 02/ 2326 98.1 74 16 107/61 02/05 2326 98.1 74 16 107/61 Cervical/ exam: Dilatation (cm): 3 Effacement (%): 50 station: - 2 presentation: cephalic Uterine activity: Monitor: toco Frequency (description): irregular Current oxytocin: Indication: induction Infusion rate: 22.00 Procedures: artificial rupture memb FHR Evaluation Baby A: Baby A FHR category: category 1 Diagnosis, Assessment Plan Assessment: normal FHR pattern, stable, doing we ll Plan: continue labor induction Plan discussed with: patient, nurse Electronically Signed by Pa Kelly MD on at 08 RPT #:[id number] END OF REPORT
[2022-08-12] MEDS ORDERED: ONDANSETRON 4 MG/2 ML VIAL ONE (03:19)
[2022-08-12] MEDS ORDERED: MORPHINE 4 MG/ML SYR ONE (03:19)
[2022-08-12] MEDS ORDERED: FAMOTIDINE 20 MG/2 ML VIAL IV ONE (03:20)
[2022-08-12] MEDS ORDERED: NA CHLORIDE 0.9% 500 ML ONE ×3 (03:20→05:52)
[2022-08-12 03:21] LABS: Absolute Lymphocytes (CBC) 1.4 K/uL (0.7-4.9); Hematocrit 20.2 % (36.0-45.0); Lymphocytes % 11.2 % (15.3-44.8); MCV 89.1 fL (80-100); MPV 7.8 fL (7.6-11.3); RBC Red Blood Cell Count 2.27 M/uL (3.86-4.86)
[2022-08-12 03:32] LABS: Albumin 2.5 g/dL (3.4-5.0); Bilirubin Total 0.3 mg/dL (0.2-1.0); Potassium 3.8 mEq/L (3.5-5.1); Protein, Total 7.2 g/dL (6.4-8.2)
--- NOTE | 2022-08-12 05:30 | ER ---
Nurse's Notes [facility] Name: Jayashree Khan Age: 36 yrs Sex: Female : 1985 Arrival Date: 08/12/2022 Time: 02:48 Bed 6 Private MD: Diagnosis: Abdominal pain, Generalized-extensive cervical cancer , recto vaginal fistula;Anemia in neoplastic disease;Acute kidney failure, unspecified-on chronic Presentation: 08/12 02:53 Chief complaint: EMS states: called out for abdominal pain that started yesterday. as6 Coronavirus screen: At this time, the client does not indicate any symptoms associated with coronavirus-19. Ebola Screen: No symptoms or risks identified at this time. Initial Sepsis Screen: Does the patient meet any 2 criteria? No. Patient's initial sepsis screen is negative. Does the patient have a suspected source of infection? No. Patient's initial sepsis screen is negative. Risk Assessment: Do you want to hurt yourself or someone else? Patient reports no desire to harm self or others. Onset of symptoms was August 11, 2022. 02:53 Acuity: WALT 3 as6 02:53 Method Of Arrival: EMS: [facility] as6 Triage Assessment: 02:55 General: Appears uncomfortable, ill, slender, Behavior is cooperative, fussy. Pain: as6 Complains of pain in abdomen Pain radiates to back. Pain: Noted to be grimacing, guarding, moaning, resistant to movement. EENT: No deficits noted. No signs and/or symptoms were reported regarding the EENT system. Neuro: Level of Consciousness is awake, alert, obeys commands, Oriented to person, place, time, situation. Cardiovascular: Capillary refill < 3 seconds Patient's skin is warm and dry. Respiratory: Respiratory effort is even, unlabored, Respiratory pattern is regular, symmetrical. GI: Reports lower abdominal pain, upper abdominal pain, nausea, vomiting. : No deficits noted. No signs and/or symptoms were reported regarding the genitourinary system. 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 - Social history:: Smoking status: Patient reports the use of cigarette tobacco products, denies chronic smoking, but will smoke occasionally. Screenin:58 [facility] ED Fall Risk Assessment (Adult) Score/Fall Risk Level 0 - 2 = Low Risk. Abuse as6 screen: Denies threats or abuse. Denies injuries from another. Nutritional screening: No deficits noted. Tuberculosis screening: No symptoms or risk factors identified. Assessment: 04:44 Reassessment: Patient states feeling better. as6 06:02 General: initiated transfer with BSS . kd3 07:00 Reassessment: RECD REPORT FROM MARQUEZ ARIAS. 36YO HF P/W ABDOMINAL PAIN. TRANSFER INITIATED. bp 09:00 Reassessment: REPORT TO TERRANCE ARIAS FOR [facility]. 2ND UNIT PRBC INFUSING. TRANSPORT bp PENDING. Vital Signs: 02:53 BP 94 / 60; Pulse 91; Resp 18 S; Temp 98.3(O); Pulse Ox 99% on R/A; Weight 54.43 kg as6 (R); Height 5 ft. 5 in. (R); Pain 10/10; 04:43 BP 94 / 52; Pulse 80; Resp 18 S; Pulse Ox 100% on R/A; as6 05:30 BP 87 / 51; Pulse 79; Resp 17; Pulse Ox 100% on R/A; rv 05:45 BP 94 / 54; Pulse 79; Resp 17; Pulse Ox 100% on R/A; rv 06:00 BP 92 / 53; Pulse 78; Resp 18; Pulse Ox 100% on R/A; rv 06:48 BP 91 / 52; Pulse 52; Resp 18 S; Pulse Ox 100% on R/A; as6 07:53 BP 95 / 55; Pulse 94; Resp 18; Temp 98; Pulse Ox 100% ; ko1 09:00 BP 107 / 66; Pulse 86; Resp 15; Temp 98.3; Pulse Ox 100% ; bp 02:53 Body Mass Index 19.97 (54.43 kg, 165.1 cm) as6 02:53 Pain Scale: Adult as6 Lynda Coma Score: 06:08 Eye Response: spontaneous(4). Motor Response: obeys commands(6). Verbal Response: rv oriented(5). Total: 15. ED Course: 02:49 Patient arrived in ED. ja2 02:51 Jonn Larsen MD is Attending Physician. kdr 02:53 Vadim Han, RN is Primary Nurse. as6 02:53 Arm band placed on. as6 02:55 Triage completed. as6 02:58 Bed in low position. Call light in reach. Side rails up X2. Warm blanket given. as6 03:14 Missed attempt(s): 20 gauge in right antecubital area. rv 03:14 Missed attempt(s): 20 gauge in left antecubital area. rv 03:17 nephroostomy tube noted. rv 04:30 Inserted saline lock: 20 gauge in left forearm, using aseptic technique. Blood as6 collected. ultrasound guided, long catheter. 04:31 Abdomen In Process Unspecified. EDMS 06:58 Inserted saline lock: 22 gauge hand, using aseptic technique. rv 07:33 Bb Add On Sent. ko1 07:33 Packed RBC Leukored Sent. ko1 07:47 transfer initiated to [facility], pt denied due to no beds at [facility]. 07:53 Client placed on continuous cardiac and pulse oximetry monitoring. NIBP monitoring ko1 applied. 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 Door closed. Noise minimized. Lights dimmed. 08:00 initiated transfer to [facility]. bd 08:03 Sonido Newton, RN is Primary Nurse. bp 08:31 Attending Physician role handed off by Jonn Larsen MD amna 08:31 Gerhard Loja MD is Attending Physician. amna 09:45 pt accepted in transfer to [facility] by Dr Encarnacion, admin approval given by Jyoti Hendrickson. Administered Medications: 04:00 Drug: morphine IM 4 mg Route: IM; Site: left ventrogluteal; as6 04:21 Not Given (Other Intervention Used): morphine IVP or IV 4 mg IVP once over 4 mins as6 04:42 Drug: Famotidine IVP 20 mg Route: IVP; Site: left forearm; as6 04:43 Drug: Ondansetron IVP 4 mg Route: IVP; Site: left forearm; as6 04:43 Drug: NS 0.9% IV 500 ml Route: IV; Rate: bolus; Site: left forearm; as6 07:01 Drug: Cefepime IVPB 1 grams Route: IVPB; Rate: 200 ml/hr; Infused Over: 30 mins; Site: as6 right hand; 07:33 Drug: vancoMYCIN IVPB 1 grams Route: IVPB; Infused Over: 2 hrs; Site: right hand; ko1 07:49 Drug: fentaNYL (PF) IVP 50 mcg Route: IVP; Site: right hand; ko1 Medication: 06:43 Blood products: PRBCs X 1 unit given. See transfusion record. rv 06:44 VIS not applicable for this client. kd3 Outcome: 05:29 ER care complete, transfer ordered by . kdr 10:36 Patient left the ED. bp Signatures: Dispatcher [employer] EDMS Esther Camarillo Corey, MD MD cha Rittger, Kevin, MD MD kdr Peltier, Brian, RN RN bp Miah Dailey RN RN rv Terrance Walker Ashby, RN RN as6 Sunitha Martinez RN RN kd3 Kena Chavez RN RN ko1 Corrections: (The following items were deleted from the chart) 03:15 03:14 Missed attempt(s): 20 gauge in right in left antecubital area. rv rv 09:23 03:17 : rv bp
--- NOTE | 2022-08-12 05:30 | EDPHYS ---
Physician Documentation [facility] Name: Jayashree Khan Age: 36 yrs Sex: Female : 1985 Arrival Date: 08/12/2022 Time: 02:48 Bed 6 Private MD: ANMOL Physician Gerhard Loja HPI: 08/12 06:27 This 36 yrs old Female presents to ER via EMS with complaints of Abdominal kdr Pain. 06:27 Patient states that she started to have abdominal pain yesterday afternoon. The pain kdr started in her low abdomen and then radiated around to her back. She stated that at first it felt like a pinching below her navel. But then the extended and became more persistent and more severe after that. She had some nausea vomiting initially but now just nausea. Patient had recently been transferred to [facility] for complications due to her seizure history and bleeding. Her last hemoglobin here was 5.1.. Onset: The symptoms/episode began/occurred suddenly, yesterday. Severity of symptoms: At their worst the symptoms were moderate severe incapacitating in the emergency department the symptoms are unchanged. The patient has not experienced similar symptoms in the past. The patient has been recently seen at the [facility] Emergency Department, last week, a couple of weeks ago. 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 - Social history:: Smoking status: Patient reports the use of cigarette tobacco products, denies chronic smoking, but will smoke occasionally. ROS: 06:27 Constitutional: Negative for fever, chills, and weight loss, Eyes: Negative for injury, kdr pain, redness, and discharge, ENT: Negative for injury, pain, and discharge, Neck: Negative for injury, pain, and swelling, Cardiovascular: Negative for chest pain, palpitations, and edema, Respiratory: Negative for shortness of breath, cough, wheezing, and pleuritic chest pain, Back: Negative for injury and pain, : Negative for injury, bleeding, discharge, and swelling, MS/Extremity: Negative for injury and deformity, Skin: Negative for injury, rash, and discoloration, Neuro: Negative for headache, weakness, numbness, tingling, and seizure activity. Psych: Negative for depression, anxiety, suicide ideation, homicidal ideation, and hallucinations, Allergy/Immunology: Negative for hives, rash, and allergies, Endocrine: Negative for neck swelling, polydipsia, polyuria, polyphagia, and marked weight changes, Hematologic/Lymphatic: Negative for swollen nodes, abnormal bleeding, and unusual bruising. 06:27 Abdomen/GI: Positive for abdominal pain, nausea and vomiting, Negative for diarrhea, constipation, abdominal cramps, abdominal distension, anorexia, dysphagia, hematemesis, black/tarry stool, rectal pain, rectal bleeding. Exam: 06:27 Constitutional: This is a well developed, well nourished patient who is awake, alert, kdr and in no acute distress. Head/Face: Normocephalic, atraumatic. Eyes: Pupils equal round and reactive to light, extra-ocular motions intact. Lids and lashes normal. Conjunctiva and sclera are non-icteric and not injected. Cornea within normal limits. Periorbital areas with no swelling, redness, or edema. Neck: Trachea midline, no thyromegaly or masses palpated, and no cervical lymphadenopathy. Supple, full range of motion without nuchal rigidity, or vertebral point tenderness. No Meningismus. Chest/axilla: Normal chest wall appearance and motion. Nontender with no deformity. No lesions are appreciated. Cardiovascular: Regular rate and rhythm with a normal S1 and S2. No gallops, murmurs, or rubs. Normal PMI, no JVD. No pulse deficits. Respiratory: Lungs have equal breath sounds bilaterally, clear to auscultation and percussion. No rales, rhonchi or wheezes noted. No increased work of breathing, no retractions or nasal flaring. Back: No spinal tenderness. No costovertebral tenderness. Full range of motion. Skin: Warm, dry with normal turgor. Normal color with no rashes, no lesions, and no evidence of cellulitis. MS/ Extremity: Pulses equal, no cyanosis. Neurovascular intact. Full, normal range of motion. Neuro: Awake and alert, GCS 15, oriented to person, place, time, and situation. Cranial nerves II-XII grossly intact. Motor strength 5/5 in all extremities. Sensory grossly intact. Cerebellar exam normal. Normal gait. Psych: Awake, alert, with orientation to person, place and time. Behavior, mood, and affect are within normal limits. 06:27 Abdomen/GI: Inspection: obese Bowel sounds: diminished, in all quadrants, Palpation: mild abdominal tenderness. Vital Signs: 02:53 BP 94 / 60; Pulse 91; Resp 18 S; Temp 98.3(O); Pulse Ox 99% on R/A; Weight 54.43 kg as6 (R); Height 5 ft. 5 in. (R); Pain 10/10; 04:43 BP 94 / 52; Pulse 80; Resp 18 S; Pulse Ox 100% on R/A; as6 05:30 BP 87 / 51; Pulse 79; Resp 17; Pulse Ox 100% on R/A; rv 05:45 BP 94 / 54; Pulse 79; Resp 17; Pulse Ox 100% on R/A; rv 06:00 BP 92 / 53; Pulse 78; Resp 18; Pulse Ox 100% on R/A; rv 06:48 BP 91 / 52; Pulse 52; Resp 18 S; Pulse Ox 100% on R/A; as6 07:53 BP 95 / 55; Pulse 94; Resp 18; Temp 98; Pulse Ox 100% ; ko1 09:00 BP 107 / 66; Pulse 86; Resp 15; Temp 98.3; Pulse Ox 100% ; bp 02:53 Body Mass Index 19.97 (54.43 kg, 165.1 cm) as6 02:53 Pain Scale: Adult as6 Lynda Coma Score: 06:08 Eye Response: spontaneous(4). Motor Response: obeys commands(6). Verbal Response: rv oriented(5). Total: 15. MDM: 05:29 Patient medically screened. kdr 06:27 Data reviewed: vital signs, nurses notes, lab test result(s), radiologic studies. kdr 08:36 Differential Diagnosis altered mental status, sepsis. Consideration of amna Admission/Observation Patient was admitted/placed on observation. Escalation of care including admission/observation considered. I considered the following discharge prescriptions or medication management in the emergency department Medications were administered in the Emergency Department. See MAR. Test considered but Not performed: Ultrasound no abd usg. Historians other than the Patient: EMS: ems. Family Member: . Care significantly affected by the following chronic conditions: Chronic Kidney Disease, anemia, cholelithiasis, ovarian cancer. Counseling: I had a detailed discussion with the patient and/or guardian regarding: the historical points, exam findings, and any diagnostic results supporting the discharge/admit diagnosis, radiology results, the need to transfer to another facility, for higher level of care, [facility] does not immediately have the required specialist. 08/12 03:11 Order name: Comprehensive Metabolic Panel; Complete Time: 03:36 EDMS 08/12 03:11 Order name: Lipase; Complete Time: 03:36 EDMS 08/12 03:11 Order name: CBC with Automated Diff; Complete Time: 03:28 EDMS 08/12 04:47 Order name: Type and Screen EDMS 08/12 05:45 Order name: Bb Add On kd3 08/12 05:57 Order name: Packed RBC Leukored EDMS 08/12 06:27 Order name: Lactate w/ 2H reflex if indic.; Complete Time: 07:12 kdr 08/12 07:46 Order name: CBC with Diff kdr 08/12 07:46 Order name: Chem 7 kdr 08/12 07:50 Order name: Bb Add On bd 08/12 08:55 Order name: Packed RBCs (Additional Unit) EDMS 08/12 03:57 Order name: Abdomen EDMS 08/12 02:55 Order name: IV Saline Lock; Complete Time: 04:42 kdr 08/12 02:55 Order name: Labs collected and sent; Complete Time: 03:06 kdr Administered Medications: 04:00 Drug: morphine IM 4 mg Route: IM; Site: left ventrogluteal; as6 04:21 Not Given (Other Intervention Used): morphine IVP or IV 4 mg IVP once over 4 mins as6 04:42 Drug: Famotidine IVP 20 mg Route: IVP; Site: left forearm; as6 04:43 Drug: Ondansetron IVP 4 mg Route: IVP; Site: left forearm; as6 04:43 Drug: NS 0.9% IV 500 ml Route: IV; Rate: bolus; Site: left forearm; as6 07:01 Drug: Cefepime IVPB 1 grams Route: IVPB; Rate: 200 ml/hr; Infused Over: 30 mins; Site: as6 right hand; 07:33 Drug: vancoMYCIN IVPB 1 grams Route: IVPB; Infused Over: 2 hrs; Site: right hand; ko1 07:49 Drug: fentaNYL (PF) IVP 50 mcg Route: IVP; Site: right hand; ko1 Disposition Summary: 08/12/22 05:29 Transfer Ordered Reason: Higher level of care kdr Condition: Fair kdr Problem: an acute exacerbation kdr Symptoms: have improved kdr [facility] amna Accepting Physician: dr samuel vasquez(08/12/22 10:36) bp Diagnosis - Abdominal pain, Generalized - extensive cervical cancer , recto vaginal amna fistula(08/12/22 08:41) - Anemia in neoplastic disease amna - Acute kidney failure, unspecified - on chronic amna Forms: - Medication Reconciliation Form kdr - SBAR form kdr Critical care time excluding procedures: 08:36 Critical care time: Bedside Care: 40 minutes, Consultation: 15 minutes, Family amna Intervention: 10 minutes. Total time: 65 minutes Signatures: Dispatcher [employer] EDMS Gerhard Loja MD MD cha Rittger, Kevin, MD MD kdr Peltier, Brian, HUGO ARIAS bp Vadim Han RN RN as6 Kena Chavez, HUGO RN ko1 Corrections: (The following items were deleted from the chart) 03:43 03:09 CBC+H.LAB.BRZ ordered. EDMS EDMS 03:43 03:09 COMPREHENSIVE METABOLIC PANEL+C.LAB.BRZ ordered. EDMS EDMS 03:43 03:09 LIPASE+C.LAB.BRZ ordered. EDMS EDMS 03:57 03:10 Abdomen Pelvis W Con+CT.RAD.BRZ ordered. EDMS EDMS 07:09 03:37 TYPE AND SCREEN+BB.LAB.BRZ ordered. EDMS EDMS 08:41 05:29 ;'; kdr amna 08:41 05:29 [facility] kdr amna 08:41 05:29 Abdominal pain, Generalized kdr amna 10:36 08:41 dr samuel vasquez cha bp
[2022-08-12] MEDS ORDERED: NA CHLORIDE 0.9% 250 ML ONE ×2 (05:51→07:00)
[2022-08-12] MEDS ORDERED: VANCOMYCIN 1 GM/VIAL ONE (07:00)
[2022-08-12] MEDS ORDERED: NA CHLORIDE 0.9% 100 ML ONE (07:00)
[2022-08-12] MEDS ORDERED: CEFEPIME 1 GM/VIAL ONE (07:00)
[2022-08-12] MEDS ORDERED: FENTANYL CITR 100 MCG/2 ML ONE (07:53)
[2022-08-12] MEDS ORDERED: NA CHLORIDE 0.9% 1,000 ML ONE ×2 (07:53→08:29)
[2022-08-12 09:14] LABS: Potassium 3.8 mEq/L (3.5-5.1)
[2022-08-12 09:38] LABS: Absolute Lymphocytes (CBC) 1.1 K/uL (0.7-4.9); Hematocrit 21.7 % (36.0-45.0); MCV 89.3 fL (80-100); MPV 8.5 fL (7.6-11.3); RBC Red Blood Cell Count 2.43 M/uL (3.86-4.86)
[2022-08-12 10:59] VITALS: O2SAT 100
[2022-08-12 11:06] VITALS: BP 107/66; TEMP 98.3
--- NOTE | 2022-08-12 16:26 | RAD REPORT ---
EXAM DESCRIPTION: CT - Abdomen Pelvis Wo Contrast - 08/12/2022 6:40 am CLINICAL HISTORY: The patient is 36 years old and is Female; ABD PAIN [facility] MAIN TECHNIQUE: Axial computed tomography images of the abdomen and pelvis without intravenous contrast. Sagittal and coronal reformatted images were created and reviewed. This CT exam was performed usi ng one or more of the following dose reduction techniques: automated exposure control, adjustment o f the mA and/or kV according to patient size, and/or use of iterative reconstruction technique. COMPARISON: 06/08/2022 CT abdomen pelvis without contrast FINDINGS: LUNG BASES: Unremarkable. No mass. No consolidation. ABDOMEN: LIVER: Unremarkable. GALLBLADDER AND BILE DUCTS: Unremarkable. No calcified stones. No ductal dilation. PANCREAS: Unremarkable. No ductal dilation. SPLEEN: Unremarkable. No splenomegaly. ADRENALS: Unremarkable. No mass. 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 Interval placement of bilateral percutaneous nephrostomies with tip curling within the georgie ateral renal pelvises. No obstructing stones. No hydronephrosis. STOMACH AND BOWEL: Unremarkable. No obstruction. No mucosal thickening. PELVIS: APPENDIX: No findings to suggest acute appendicitis. BLADDER: Allowing for decompressed state and lack of intravenous contrast, grossly unremarkable. Delgado melany, cannot exclude invasion of the posterior bladder wall by the adjacent cervical inflammatory proc ess/mass. REPRODUCTIVE: Circumferential thickening and dilatation of the soft tissues at the level of the cer vix, with internal air-fluid level. Appearance suspicious for rectovaginal fistula formation with inf ectious process and/or a necrotic cervical malignancy. ABDOMEN and PELVIS: INTRAPERITONEAL SPACE: Unremarkable. No free air. No significant fluid collection. BONES/JOINTS: No acute fracture. No dislocation. SOFT TISSUES: Unremarkable. VASCULATURE: Unremarkable. No abdominal aortic aneurysm. LYMPH NODES: Increase in size of rounded left pelvic sidewall lymph node (0.6 cm in short axis diam eter, axial image 69; previously 0.3 cm). IMPRESSION: 1. Circumferential thickening and dilatation of the soft tissues at the level of the c ervix, with internal air-fluid level. Appearance suspicious for rectovaginal fistula formation with i nfectious process and/or a necrotic cervical malignancy. Cannot exclude invasion of the posterior uri nary bladder wall in the absence of intravenous contrast. Recommend further characterization by pel rodrigo MRI and workup for possible cervical malignancy. 2. Increase in size of rounded left pelvic sidewall lymph node (0.6 cm in short axis diameter, axia l image 69; previously 0.3 cm). While this could be reactive in the setting of an inflammatory proc ess, suspicious for metastatic disease. 3. 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 Interval placement of bilateral percutaneous nephrostomies with tip curling within th e bilateral renal pelvises. Electronically signed by: Jaswant Martino MD 08/12/2022 5:12 AM CDT Due to temporary technical issues with the PACS/Fluency reporting system, reports are being signed by the in house radiologist without review as a courtesy to ensure prompt reporting. The interpreting r adiologist is fully responsible for the content of the report.
== END 2022-08-12 10:36 | disposition short-term general hospital (02) ==
LOC: ER 02:48
PROC: 30233N1 Transfusion of Nonautologous Red Blood Cells into Peripheral Vein, Percutaneous Approach (ICD-10-PCS; principal; 2022-08-12)
DX: C53.9 Malignant neoplasm of cervix uteri, unspecified (principal); D63.0 Anemia in neoplastic disease; N82.3 Fistula of vagina to large intestine; N17.9 Acute kidney failure, unspecified
CPT/HCPCS: 36415; 36430; 74176; 80048; 80053; 83605; 83690; 85025; 86850; 86900; 86901; 86920; 96372; 99285; J0692; J2405; J3010; J7030; J7040; J7050; P9016

== ENCOUNTER 2022-09-12 15:06 | Emergency (ER) | payer SELFPAY ==
--- OUTSIDE RECORDS SUMMARY | 2022-09-12 15:20 | XMS REPORT | Continuity of Care Document ---
:1985 Author Organization [facility] t Address [address] [place] [address] Care Team Providers Name Role Phone Pcp, Patient Does Not Have A Primary Care Physician [phone] Armond Owens Attending Clinician Unavailable Louisa Bryant RN Attending Clinician Angelica Ngo LVN Attending Clinician ELLI ENCARNACION Attending Clinician Unavailable Shashank ANDRADE, Elli Gonzalez Attending Clinician Ray SERRA Vernjose Chandler Attending Clinician BEN HUNG Attending Clinician Unavailable MT COY Attending Clinician Unavailable Farzaneh Horvathina Attending Clinician ELENI GRAMAJO Attending Clinician Unavailable Amalia George MD Attending Clinician [phone] Hussein Winslow MD Attending Clinician Rox ANDRADE, Eleni Leary Attending Clinician [phone] Boy Ndiaye Attending Clinician Unavailable Jodie ANDRADE, Hebert Joaquin Attending Clinician [phone] Gabe Casas Attending Clinician Unavailable Livier Carver Attending Clinician Unavailable Sidney ANDRADE, Bradley Rich Attending Clinician [phone] CARTER, DANA Attending Clinician Unavailable Rick ANDRADE, Noris Castaneda Attending Clinician Ajay ANDRADE, Catherine Blanc Attending Clinician [phone] Miah ANDRADE, [facility] In Attending Clinician Carter ANDRADE, Dana Attending Clinician Louisa Sosa Attending Clinician Unavailable [email or web address] Attending Clinician Unavailable Dallin Sanchez Attending Clinician Unavailable Armond Owens Admitting Clinician Unavailable ELLI ENCARNACION Admitting Clinician Unavailable Shashank ANDRADE, Elli Gonzalez Admitting Clinician MT COY Admitting Clinician Unavailable AMALIA GEORGE Admitting Clinician Unavailable Bárbara Lemons Admitting Clinician Unavailable CATHERINE MOONEY Admitting Clinician Unavailable [email or web address] Admitting Clinician Unavailable Payers Payer Name Policy Type Policy Number Effective Date Expiration Date S ource GENERIC [id number] 2022 INSTIT,SNF,LTAC,RE 00:00:00 [facility] [id number] Problems Condition Condition Condition Status Onset Resolution Last Treating Co mments Source Name Details Category Date Date Treatment Clinician Date Complicate Complicate Disease Active U nivers d UTI d UTI 08-15 ity of (urinary (urinary 00:00: [place] tract tract 00 Medical infection) infection) Br anch Cervical Cervical Disease Active Unive rs cancer cancer 08-12 ity of 00:00: [facility] Acute on Acute on Disease [facility] blood loss blood loss 00:[place] d[place] anemia 00 [facility] Cervical Cervical Disease Active 2021-03 [facility] mass mass 04[facility]28 [facility] 00:00: [place] [facility] Symptomati Symptomati Disease Active 2021-[address] [facility] anemia c anemia 04-28 [facility] 00:00: Medical 00 [place] [facility] Vaginal Vaginal Disease Active 2021-[address] bleeding bleeding 04-28 [facility] 00:00: [place] [facility] AMANDA (iron AMANDA (iron Disease Recurre [facility] deficiency deficiency [facility] anemia) anemia) [facility] Cervical Cervical Disease Recurre [facility] carcinoma carcinoma [facility] Drug use Drug use Disease Recurre [facility] Incarcerat Incarcerat Disease Recurre [facility] ion ion [facility] Hypotensio Hypotensio Disease Active C HI [facility] n due to n due to [facility] blood loss blood loss [place] dical [facility] Hemorrhagi Hemorrhagi Disease Active C HI [facility] c shock c shock [facility] Acute pain Acute pain Disease Active C HI [facility] Allergies, Adverse Reactions, Alerts Allergy Allergy Status Severity Reaction(s) Onset Inactive Treating Comm ents Source Name Type Date Date Clinician IBUPROFE DRUG Active Hives Univers N INGREDI 08-12 ity of 00:00: [facility] PENICILL DRUG Active Hives Univers IN INGREDI 08-12 ity of 00:00: [facility] Ibuprofe Propensi Active Hives Univer s n ty to 08-12 ity of adverse 00:00: [place] reaction 00 [facility] Penicill Propensi Active Hives Univer s in ty to 605 ity of adverse 00:00: [place] reaction Medical s Branch IBUPROFE Allergy Active [facility] N 06-08 00:00: 00 Ibuprofe Propensi [address] [facility] ty to 06-08 [facility] adverse 00:00: Medical reaction 00 Center s Penicill Propensi Active [facility] ins ty to 06-08 [facility] adverse 00:00: Medical reaction 00 Center s PENICILL Allergy Active [facility] INS 06-08 00:00: 00 ibuprofe DA Active [place] [facility] 03-[facility] 00 [place] Iam NSAIDS Allergy Active 2021-03 [facility] Anti-Inf e 09 l [facility] ibuprofe Allergy Active 2021-03 St. n to [facility] substanc 09:05: Regiona e 34 l Health Penicill Allergy Active 2021-03 St. ins to [facility] substanc 09:05: Regiona e 21 l Health NSAIDS DA Active U 2021-03 STLSJX (Non-Baljeet roidal 00:00: Anti-Inf 00 lamma Penicill DA Active U 2021-03 STLSJX ins 00:00: 00 ibuprofe DA Active U 2021-03 STLSJX n 00:00: 00 IBPROFEN DA Active MO EDEMA 2018-0 [facility] 00:00: [facility] Penicill DA Active U 2018-0 [facility] ins 2 [facility] 00:[facility] Penicill DA Active U RASH-UNKNOWN HC A ins 04-14 [facility] 00:00: [facility] Penicill DA Active U 2017-0 [facility] ins 18 [facility] 00:00: [facility] 00 Medical [place] NO KNOWN Allergy Active [facility] ALLERGIE [facility] Social History Social Habit Start Date Stop Date Quantity Comments Source History of tobacco Passive smoker Un iversity of use [place] [facility] History SDOH University o f Alcohol Std Drinks [place] [facility] History SDOH University o f Alcohol Binge [place] [facility] History SDOH Social Unive rsity of [facility] Med ical Together Branch History SDOH Social Unive rsity of [facility] Medical Branch History SDOH Social Unive rsity of [facility] Medical Membership Branch History SDOH Social Unive rsity of [facility] Medical Meetings Branch History SDOH 2022-08-13 2022-08-13 1 University o f Alcohol Frequency 00:00:00 00:00:00 [place] M edical Branch History SDOH Social 2022-08-13 2022-08-13 5 Unive rsity of Connections Phone 00:00:00 00:00:00 [place] M edical Branch History SDOH Social 2022-08-13 2022-08-13 7 Unive rsity of [facility] Living 00:00:00 00:00:00 [place] [facility] History SDOH 2022-08-13 2022-08-13 0 University o f Physical Activity 00:00:00 00:00:00 [place] M [facility] DPW Branch History SDOH 2022-08-13 2022-08-13 0 University o f Physical Activity 00:00:00 00:00:00 [place] M [facility]ical MPS Branch History SDOH 2022-08-13 2022-08-13 5 University o f Financial 00:00:00 00:00:00 [place] [facility] History SDOH Food 2022-08-13 2022-08-13 1 Univers ity of Worry 00:00:00 00:00:00 [place] [facility] History SDOH Food 2022-08-13 2022-08-13 1 Univers ity of Scarcity 00:00:00 00:00:00 [place] [facility] History SDOH 2022-08-13 2022-08-13 2 University o f Transport Med 00:00:00 00:00:00 [place] Medic al Branch History SDVA 2022-08-13 2022-08-13 2 University o f Transport Non-Med 00:00:00 00:00:00 [place] M edical Branch History SDOH 2022-08-13 2022-08-13 2 University o f Housing Unable to 00:00:00 00:00:00 [place] M edical Pay Branch History SDOH 2022-08-13 2022-08-13 1 University o f Housing Places 00:00:00 00:00:00 [place] Medi gray Lived Branch History SDOH 2022-08-13 2022-08-13 2 University o f Housing Homeless 00:00:00 00:00:00 [place] Me dical Last Year Branch Tobacco use and 2022-08-12 2022-08-12 Smokeless Universit y of exposure 00:00:00 00:00:00 tobacco non-user [facility] Sex Ass[birth year] At [birth year] Universit y of 00:00:00 [facility]00 [facility] Smoking Status Start Date Stop Date Source Smokes tobacco daily 2022-08-12 00:00:00 [facility] ity of [facility] Tobacco smoking [place] [facility] consumption unknown Health (finding) Ex-smoker 2022-02-25 00:00:00 2022-02-25 [facility] 00:00:00 Center Medications Ordered Filled Start Stop Current Ordering Indication Dosage Frequency Signature Comments Components Source Medication Medication Date Date Medication? Clinician (SIG) Name Name sulfamethox 2022- Yes [id number] 1{tbl} Take 1 Univers azole-trime 6-11 13-22 tablet by it y of thoprim 00:00: 04:59 mouth in [place] 800-160 mg 00 :00 the Medical per tablet morning Branch and 1 tablet in the evening. Do all this for 12 days. sulfamethox 2022- Yes [id number] 1{tbl} Take 1 Univers azole-trime 6-11 13-22 tablet by it y of thoprim 00:00: 04:59 mouth in [place] 800-160 mg 00 :00 the Medical per tablet morning Branch and 1 tablet in the evening. Do all this for 12 days. sulfamethox 2022- Yes [id number] 1{tbl} Take 1 Univers azole-trime 6-11 13-22 tablet by it y of thoprim 00:00: 04:59 mouth in [place] 800-160 mg 00 :00 the Medical per tablet morning Branch and 1 tablet in the evening. Do all this for 12 days. sulfamethox 2022- Yes [id number] 1{tbl} Take 1 Univers azole-trime 6- 06-22 tablet by it y of thoprim 00:00: 04:59 mouth in [place] 800-160 mg 00 :00 the Medical per tablet morning Branch and 1 tablet in the evening. Do all this for 12 days. sulfamethox 2022- Yes [id number] 1{tbl} Take 1 Univers azole-trime 6- 06-22 tablet by it y of thoprim 00:00: 04:59 mouth in [place] 800-160 mg 00 :00 the Medical per tablet morning Branch and 1 tablet in the evening. Do all this for 12 days. sulfamethox 2022- Yes [id number] 1{tbl} Take 1 Univers azole-trime 08-16 tablet by it y of thoprim 00:00: 04:59 mouth in [place] 800-160 mg 00 :00 the Medical per tablet morning Branch and 1 tablet in the evening. Do all this for 12 days. sulfamethox 2022- No [id number] 1{tbl} Take 1 Univers azole-trime 08-16 tablet by it y of thoprim 00:00: 00:00 mouth in [place] 800-160 mg 00 :00 the Medical per tablet morning Branch and 1 tablet in the evening. Do all this for 11 days. vancomycin 2022- Yes 15mg/kg 1,000 mg Univers (VANCOCIN) 08-15 (rounded ity of 1,000 mg in 12:15: 12:14 [place] NaCl 0.9% 00 :00 mg = 15 Medical (NS) 250 mL mg/kg ?62 [facility] VIAL-MATE kg), IV IV Piggyback, piggyback Q12H ABX, 10 doses, First dose on [place] 08/15/22 at 0715, Last dose on 08/19/22 at 1915, Administer over 60 Minutes, 250 mL
Reas on for Anti-Infec tive: Empiric Therapy for Suspected Infection< br>Empiric Therapy Site: Abdominal< br>Duratio n of therapy: 5 days sennosides- Yes 1{tbl} 1 tablet, Univers docusate 08-15 Oral, ity of sodium 06:15: DAILY, [place] (SENOKOT-S) 00 First dose Me dical 8.6-50 mg on [place] Branch per tablet 08/15/22 at 1 tablet 0115, Until Discontinu ed, Routine polyethylen Yes 17g 17 g, Unive rs e glycol 08 Oral, ity of 3350 powder 06:15: DAILY, [place] 17 g 00 First dose Medical on [place] Branch 08/15/22 at 0115, Until Discontinu ed, Routine morpHINE (2 Yes 2mg 2 mg, Slow Univers mg/mL) 08-15 IV Push, ity of injection 2 06:00: Q4HPRN, [place] as mg 00 Starting Medical on [place] Branch 08/15/22 at 0100, Until Discontinu ed, Routine, Pain (scale 7-10) HYDROcodone 2022- Yes [id number] 1{tbl} Take 1 U nivers -acetaminop 08-15-16 tablet by it y of hen 5-325 00:00: 04:59 mouth [place] mg tablet 00 :00 every 6 Medical (six) Branch hours as needed for Pain (scale 7-10) for up to 7 days. Indication s: acute pain HYDROcodone 2022- Yes [id number] 1{tbl} Take 1 U nivers -acetaminop 08-15-16 tablet by it y of hen 5-325 00:00: 04:59 mouth [place] mg tablet 00 :00 every 6 Medical (six) Branch hours as needed for Pain (scale 7-10) for up to 7 days. Indication s: acute pain HYDROcodone 2022- Yes [id number] 1{tbl} Take 1 U nivers -acetaminop 08-15-16 tablet by it y of hen 5-325 00:00: 04:59 mouth [place] mg tablet 00 :00 every 6 Medical (six) Branch hours as needed for Pain (scale 7-10) for up to 7 days. Indication s: acute pain heparin Yes 5000U 5,000 Univers (porcine) 08-13 Units, ity of injection 13:00: [place] 5,000 Units 00 us, Q12H, Med ical First dose Branch on Fri08/13/22 at 0800, Until Discontinu ed, Routine ceFEPIme 2022- Yes 1000mg 1,000 mg, U nivers (MAXIPIME) 08-13 06-11 IV ity of 1,000 mg in 09:00: 08:59 Piggyback, [place] NaCl 0.9% 00 :00 Q12H ABX, Medic al (NS) 100 mL 10 doses, [facility] MINI-BAG First dose on Fri08/13/22 at 0400, Last dose on 08/17/22 at 1600, Administer over 4 Hours, 100 mL
Reas on for Anti-Infec tive: Empiric Therapy for Suspected Infection< br>Empiric Therapy Site: Urine
D uration of therapy: 5 days vancomycin 2022- No 15mg/kg 1,000 mg Univers (VANCOCIN) 08-13 (rounded ity of 1,000 mg in 00:00: 11:42 [place]30 [place] NaCl 0.9% 00 :39 mg = 15 Medical (NS) 250 mL mg/kg ?62 [facility] VIAL-MATE kg), IV IV Piggyback, piggyback Q12H ABX, 8 doses, First dose on Fri08/12/22 at 1900, Last dose on Fri08/16/22 at 0700, Administer over 60 Minutes, 250 mL
Reas on for Anti-Infec tive: Empiric Therapy for Suspected Infection< br>Empiric Therapy Site: Pelvic
Duration of therapy: 5 days ceFEPIme 2022- No 1000mg 1,000 mg, U nivers (MAXIPIME) 08-12 IV ity of 1,000 mg in 21:00: 02:12 [place], [place] NaCl 0.9% 00 :00 ONCE, 1 Medical (NS) 100 mL dose, On Bran ch MINI-BAG Fri08/12/22 at 1600, Administer over 4 Hours, 100 mL
R tonya for Anti-Infec tive: Empiric Therapy for Suspected Infection< br>Empiric Therapy Site: Urine
D uration of therapy: 5 days morpHINE (2 2022- No 2mg 2 mg, Slow Univers mg/mL) 08-12 IV Push, ity of injection 2 20:48: 05:59 Q6HPRN, [place] mg 27 :35 Starting Medical on Fri08/12/22 at 1548, Until [place] 08/15/22 at 0059, Routine, Pain (scale 7-10) metroNIDAZO 2022- Yes 500mg 500 mg, IV Univers LE in NaCl 08-12 Infusion, ity of (iso-os) 20:45: 20:44 Q12H ABX, [place] as (FLAGYL 00 :00 10 doses, Medical I.V.) RTU First dose Bran ch IV infusion on Mon 500 mg 08/12/22 at 1545, Last dose on 08/17/22 at 0345, Administer over 60 Minutes, 100 mL
Reas on for Anti-Infec tive: Empiric Therapy for Suspected Infection< br>Empiric Therapy Site: Abdominal< br>Duratio n of therapy: 5 days magnesium 2022- No 4g 4 g, IV Univ ers sulfate in 08-12 Piggyback, it y of water 4 19:30: 20:49 at 25 [place] gram/50 mL 00 :00 mL/hr Medical (8 %) IV Administer Branc h Piggyback 4 over 120 g Minutes, ONCE, 1 dose, On Fri08/12/22 at 1430, Routine NaCl 0.9% 2022- No 1000mL at 999 Uni vers (NS) bolus 08-12 mL/hr, ity of infusion 19:00: 19:25 1,000 mL, [place] 1,000 mL 00 :00 IV Medical Piggyback, Branch ONCE, 1 dose, On Fri08/12/22 at 1400, STAT ferrous 2022-0 Yes 325mg Take 325 [facility] [...] QD Take [address] [facility] (FOLVITE) 1 06-14- tablet (1 Marj kes MG tablet 00:00: 23:59 mg total) Me dical 00 :00 by mouth Center in the morning. thiamine 2023- Yes 100mg QD Take 1 [facility] 100 MG 06-14- tablet [facility] tablet 00:00: 23:59 (100 mg Medical 00 :00 total) by Center mouth in the morning. folic acid 2023- Yes 1mg QD Take [address] (FOLVITE) 1 06-14 tablet (1 Marj kes MG tablet 00:00: 23:59 mg total) Me dical 00 :00 by mouth Center in the morning. thiamine 2023- Yes 100mg QD Take 1 [facility] 100 MG 06-14 tablet [facility] tablet 00:00: 23:59 (100 mg [...] Name Observation Time Observation Value Comments Source Systolic blood 2022-08-15 20:56:00 104 mm[Hg] Univer [facility]ity of [facility] Diastolic blood 2022-08-15 20:56:00 58 mm[facility]Hg[facility] 2022-08-15 20:56:00 78 [facility] Body temperature 2022-08-15 20:56:00 36.39 Emelyn [facility] Respiratory rate 2022-08-15 20:56:00 18 /min [facility] Oxygen saturation in 2022-08-15 20:56:00 99 /min [facility] blood by [place] Medi gray Pulse oximetry Branch Body weight 2022-08-14 15:00:00 62 kg [facility] BMI 2022-08-14 15:00:00 22.75 kg/m2 [facility] Body height 2022-08-12 16:29:00 165.1 cm [facility] WEIGHT 2022-07-27 04:25:00 60.328 kg WEIGHT 2022-07-25 [...] 2022-06-08 11:00:00 63.5 kg WEIGHT 2022-03-09 11:47:00 72.644975 kg HEIGHT 2022-03-09 11:47:00 165.1 cm Body Temperature 2022-03-09 09:36:00 97.7 [degF] [facility] Heart Rate 2022-03-09 09:36:00 59 /min [facility] Respiratory rate 2022-03-09 09:36:00 20 /min [facility] Oxygen saturation by 2022-03-09 09:36:00 97 /min [place] Pulse oximetry [facility] BP Systolic 2022-03-09 09:36:00 99 mm[Hg] [facility] BP Diastolic 2022-03-09 09:36:00 58 mm[Hg] [facility] HEIGHT 2022-02-26 17:00:00 165.1 cm WEIGHT 2022-02-26 17:00:00 72.576 kg HEIGHT 2022-02-26 17:00:00 165.1 cm WEIGHT 2022-02-26 17:00:00 72.576 kg Heart rate 2022-06-14 12:46:18 73 /min [facility] Respiratory rate 2022-06-14 12:46:18 18 /min [facility] Oxygen saturation in 2022-06-14 12:46:18 100 /min [facility] Arterial blood by Medical Ce nter Pulse oximetry Body temperature 2022-06-14 12:45:29 36.61 Emelyn [facility] Systolic blood 2022-06-14 12:45:15 100 mm[Hg] [facility] Diastolic blood 2022-06-14 12:45:15 64 mm[Hg] [facility] Body height 2022-06-08 11:00:00 165.1 cm [facility] Body weight 2022-06-08 11:00:00 63.5 kg [facility] BMI 2022-06-08 11:00:00 23.30 kg/m2 [facility] Heart rate 2022-02-27 11:58:02 65 /min [facility] Respiratory rate 2022-02-27 11:58:02 17 /min [facility] Oxygen saturation in 2022-02-27 11:58:02 96 /min [facility] Arterial blood by Medical Ce nter Pulse oximetry Body temperature 2022-02-27 11:57:00 36.89 Emelyn [facility] Systolic blood 2022-02-27 11:56:30 95 mm[Hg] [facility] Diastolic blood 2022-02-27 11:56:30 54 mm[Hg] [facility] Body height 2022-02-26 18:01:00 165.1 cm [facility] Body weight 2022-02-26 18:01:00 72.6 kg [facility] BMI 2022-02-26 18:01:00 26.63 kg/m2 [facility] Procedures Procedure Date / Time Performing Clinician Source Performed VANCOMYCIN RANDOM LEVEL 2022-08-15 Venkat Del Valle [facility] 10:23:00 Medical Branch VANCOMYCIN RANDOM LEVEL 2022-08-14 Ivon [facility] 14:26:00 Medical Branch MAGNESIUM 2022-08-14 [facility] 09:57:00 Medical Branch BASIC METABOLIC PANEL (NA, 2022-08-14 [facility] K, CL, CO2, GLUCOSE, BUN, 09:57:00 [facility] CREATININE, [place]) VANCOMYCIN TROUGH 2022-08-[facility] 09:57[facility]00 [facility] CBC WITH DIFF 2022-08-14 [facility] 09:57:00 Medical Branch US RETROPERITONEAL LIMITED 2022-08-13 Venkat Del Valle [facility] 21:14:00 Medical Branch LACTATE DEHYDROGENASE 2022-08-13 [facility] 15:56:00 Medical Branch RETICULOCYTES AUTOMATED 2022-08-13 Venkat Del Valle [facility] 08:53:00 Medical Branch MAGNESIUM 2022-08-13 Rohan [facility] 08:53:00 Medical Branch FERRITIN SERUM 2022-08-[facility] 08:[facility] Branch HAPTOGLOBIN, SERUM 2022-08-13 [facility] 08:53:00 Medical Branch BASIC METABOLIC PANEL (NA, 2022-08-13 Rohan [facility] K, CL, CO2, GLUCOSE, BUN, 08:53:00 [facility] CREATININE, CA) IRON PANEL 2022-08-13 Ivon [facility] xa 08:53:00 [facility] CBC WITH DIFF 2022-08-13 Rohan [facility] xa 08:53:00 [facility] CREATININE, URINE RANDOM 2022-08-12 Ivon [facility] 21:18:00 [facility] UREA NITROGEN, URINE RANDOM 2022-08-12 Ivon [facility] 21:18:00 [facility] SODIUM, URINE RANDOM 2022-08-12 [facility] 21:18:00 [facility] TEST, URINE 2022-08-12 Rohan, [facility] 21:18:00 [facility] URINALYSIS 2022-08-12 Rohan, [facility] 21:18:00 [facility] N-TERMINAL PRO-BNP 2022-08-12 Rohan, [facility] 21:07:[address] [facility] [address] ABDOMEN PELVIS WO 2022-08-12 Rohan, [facility] CONTRAST 20:14:10 [facility] MRSA / MSSA SCREEN BY PCR, 2022-08-[facility] 17:31:00 [facility]OSPHORUS 2022-08-12 [facility] 17:27:00 [facility] MAGNESIUM 2022-08-12 [facility] 17:27:00 [facility] THYROID STIMULATING HORMONE 2022-08-12 [facility] 17:27:00 [facility] HEPATIC FUNCTION PANEL 2022-08-12 [facility] [place] [facility] ([id number]) (ALB,T.PRO,BILI 17:27:00 [facility] T,BU/BC,ALT,AST,ALK PHOS) BASIC METABOLIC PANEL (NA, 2022-08-12 [facility] K, CL, CO2, GLUCOSE, BUN, 17:27:00 Medica l Branch CREATININE, CA) CBC WITH DIFF 2022-08-12 [facility] 17:27:00 [facility] GLYCOSYLATED HEMOGLOBIN 2022-08-12 [facility] 17:27:00 [facility] PROTHROMBIN TIME / INR 2022-08-12 Rohan [facility] 17:27:00 Medical Branch ACTIVATED PARTIAL THRMPLAS 2022-08-12 Rohan, [facility] CHERIE 17:27:00 Medical Branch XR CHEST 1 VW 2022-08-12 Rohan, [facility] 17:10:00 Medical Branch BASIC METABOLIC PANEL 2022-06-[address] [facility] 03:21:00 [facility] CBC (HEMOGRAM ONLY) 2022-06-[address] [facility] 03:21:00 [facility] CBC (HEMOGRAM ONLY) 2022-06-13 Naomyhorik, Jennifer [facility] 17:15:00 [facility] CBC (HEMOGRAM ONLY) 2022-06-13 Naomyhorifroilan, Jennifer [facility] 03:20:00 [facility] BASIC METABOLIC PANEL 2022-06-[address] [facility] 03:20:00 [facility] PROTHROMBIN TIME/INR 2022-06-[address] [facility] 09:42:00 [facility] CBC W/PLT COUNT & AUTO 2022-06-12 Kong Gramajonalini [facility] DIFFERENTIAL 09:42:00 [facility] CBC W/PLT COUNT & AUTO 2022-06-12 Rox[facility]inalini [facility] DIFFERENTIAL 09:42:00 [facility] BASIC METABOLIC PANEL 2022-06-[address] [facility] 08:39:00 [facility] MAGNESIUM 2022-06-[address] [facility] 08:39:00 [facility] PHOSPHORUS 2022-06-[address] [facility] 08:39:00 [facility] HEPATIC FUNCTION PANEL 2022-06-[address] [facility] 08:39:00 [facility] PREPARE LEUKO-REDUCED 2022-06-[address] [facility] PLATELETS 23:54:00 [facility] CALCIUM, IONIZED 2022-06-[address] [facility] 12:08:00 [facility] CBC (HEMOGRAM ONLY) 2022-06-[address] [facility] 12:08:00 [facility] PROTHROMBIN TIME/INR 2022-06-[address] [facility] 12:08:00 [facility] BASIC METABOLIC PANEL 2022-06-[address] [facility] 12:08:00 [facility] POCT-GLUCOSE METER 2022-06-[address] [facility] 11:51:00 [facility] POCT-GLUCOSE METER 2022-06-[address] [facility] 06:30:00 [facility] CBC (HEMOGRAM ONLY) 2022-06-[address] [facility] 05:01:00 [facility] PROTHROMBIN TIME/INR 2022-06-[address] [facility] 05:01:00 [facility] CALCIUM, IONIZED 2022-06-[address] [facility] 04:32:00 [facility] HEPATIC FUNCTION PANEL 2022-06-11 Manuel, Kouame [facility] 03:02:00 [facility] PHOSPHORUS 2022-06-[address] [facility] 03:02:00 [facility] MAGNESIUM 2022-06-[address] [facility] 03:02:00 [facility] POCT-GLUCOSE METER 2022-06-[address] [facility] 00:34:00 [facility] PREPARE LEUKO-REDUCED RBC 2022-06-10 Manuel, Kouame [facility] 23:54:00 [facility] PREPARE LEUKO-REDUCED 2022-06-[address] [facility] 23:54:00 [facility] CALCIUM, IONIZED 2022-06-[address] [facility] 22:12:00 [facility] PROTHROMBIN TIME/INR 2022-06-[address] [facility] 22:12:00 [facility] CBC W/PLT COUNT & AUTO 2022-06-10 Denilson, Emir Kane [facility] DIFFERENTIAL 22:12:00 [facility] Center CBC W/PLT COUNT & AUTO 2022-06-10 Denilson, Emir Kane [facility] DIFFERENTIAL 22:12:00 Medical Center CALCIUM, IONIZED 2022-06-10 Alore, Becki Murry [facility] 17:[facility]:00 [facility] CBC (HEMOGRAM ONLY) 2022-06-10 Alore, Becki Murry [facility] 17:19:00 [facility] FIBRINOGEN 2022-06-10 Alore, Becki Murry [facility] 17:19:00 [facility] PROTHROMBIN TIME/INR 2022-06-10 Alore, Becki Murry [facility] 17:19:00 [facility] POCT-GLUCOSE METER 2022-06-[address] [facility] 17:18:00 [facility] TRANSFUSE LEUKO-REDUCED 2022-06-[address] [facility] 12:05:00 [facility] CALCIUM, IONIZED 2022-06-10 Alore, Becki Murry [facility] 12:03:00 [facility] CBC (HEMOGRAM ONLY) 2022-06-10 Alore, Becki Murry [facility] 12:03:00 [facility] FIBRINOGEN 2022-06-10 Alore, Becki Murry [facility] 12:03:00 [facility] PROTHROMBIN TIME/INR 2022-06-10 Alore, Becki Murry [facility] 12:03:00 [facility] POCT-GLUCOSE METER 2022-06-[address] [facility] 11:11:00 [facility] VANCOMYCIN LEVEL, TROUGH 2022-06-[address] [facility] 09:06:00 [facility] CALCIUM, IONIZED 2022-06-10 Alore, Becki Murry [facility] 05:57:00 [facility] CBC (HEMOGRAM ONLY) 2022-06-10 Alore, Becki Murry [facility] 05:57:00 [facility] FIBRINOGEN 2022-06-10 Alore, Becki Ann [facility] 05:57:00 [facility] PROTHROMBIN TIME/INR 2022-06-10 AlSherri [address]steinbeth Lovely [facility] 05:57:00 [facility] POCT-GLUCOSE METER 2022-06-[address] [facility] 05:30:00 [facility] CALCIUM, IONIZED 2022-06-10 Becki Barboza Lovely [facility] 01:00:00 [facility] CBC (HEMOGRAM ONLY) 2022-06-[address] [facility] 01:00:00 [facility] FIBRINOGEN 2022-06-10 [address] Lovely [facility] 01:00:00 [facility] PROTHROMBIN TIME/INR 2022-06-[address] [facility] 01:00:00 [facility] HEPATIC FUNCTION PANEL 2022-06-10 Manuel, Kouame [facility] 01:00:00 [facility] PHOSPHORUS 2022-06-10 Manuel, Kouame [facility] 01:00:00 [facility] BASIC METABOLIC PANEL 2022-06-10 Beck[facility]za [facility] 01:00:00 [facility] MAGNESIUM 2022-06-[address] [facility] 01:00:00 [facility] PREPARE LEUKO-REDUCED RBC 2022-06-09 Noa Loyola [facility] 23:54:00 [facility] PREPARE PLASMA 2022-06-09 Manuel, Kouame [facility] 23:54:00 [facility] PREPARE CRYOPRECIPITATE 2022-06-[address] [facility] 23:54:00 [facility] PREPARE LEUKO-REDUCED 2022-06-09 Manuel, Kouame [facility] 23:54:00 [facility] POCT-GLUCOSE METER 2022-06-[address] [facility] 23:22:00 [facility] TRANSFUSE LEUKO-REDUCED 2022-06-[address] [facility] 22:55:00 [facility] POCT-GLUCOSE METER 2022-06-[address] [facility] 17:17:00 [facility] CALCIUM, IONIZED 2022-06-09 Alore, Becki Ann [facility] 17:[facility]:00 [facility] CBC (HEMOGRAM ONLY) 2022-06-09 Alore, Becki Lovely [facility] 17:14:00 Medical Center FIBRINOGEN 2022-06-09 Alore, Becki Lovely [facility] 17:14:00 [facility] PROTHROMBIN TIME/INR 2022-06-09 Alore, Becki Lovely [facility] 17:14:00 [facility] BLOOD CULTURE 2022-06-[address] [facility] 15:03:00 [facility] POCT-GLUCOSE METER 2022-06-[address] [facility] 12:15:00 [facility] CALCIUM, IONIZED 2022-06-09 Alore, Becki Murry [facility] 12:05:00 [facility] CBC (HEMOGRAM ONLY) 2022-06-09 Alore, Becki Lovely [facility] 12:05:00 [facility] FIBRINOGEN 2022-06-09 Alore, Becki Lovely [facility] 12:05:00 [facility] PROTHROMBIN TIME/INR 2022-06-09 Alore, Becki Lovely [facility] 12:05:00 [facility] PROCALCITONIN 2022-06-09 Alore, Becki Lovely [facility] 12:05:00 [facility] BLOOD GAS, ARTERIAL 2022-06-09 Manuel, Kouame [facility] 08:18:00 [facility] PROTHROMBIN TIME/INR 2022-06-09 Alore, Becki Ann [facility] 08:13:00 [facility] CBC (HEMOGRAM ONLY) 2022-06-09 Manuel, Kouame [facility] 08:13:00 [facility] BASIC METABOLIC PANEL 2022-06-09 Manuel, Kouame [facility] 08:13:00 [facility] FIBRINOGEN 2022-06-09 Manuel, Kouame [facility] 08:13:00 [facility] LACTIC ACID, ARTERIAL 2022-06-09 Manuel, Kouame [facility] 08:13:00 [facility] CALCIUM, IONIZED 2022-06-09 Manuel, Kouame [facility] 08:13:00 [facility] MAGNESIUM 2022-06-09 Manuel, Kouame [facility] 08:13:00 [facility] URINALYSIS W/ REFLEX URINE 2022-06-09 Ruperto [address] Gonzalez [facility] CULTURE 04:49:00 [facility] RAPID DRUG SCREEN, URINE 2022-06-09 Ruperto, Patsy Gonzalez [facility] 04:49:00 [facility] DRUG TEST, GENERAL 2022-06-[address] [facility] TOXICOLOGY, URINE 04:49:00 [facility] BLOOD GAS, ARTERIAL 2022-06-09 Manuel, Kouame [facility] 04:29:00 [facility] PROTHROMBIN TIME/INR 2022-06-[address] [facility] 04:28:00 [facility] CBC (HEMOGRAM ONLY) 2022-06-09 Manuel, Kouame [facility] 04:28:00 [facility] BASIC METABOLIC PANEL 2022-06-09 Manuel, Kouame [facility] 04:28:00 [facility] FIBRINOGEN 2022-06-09 Manuel, Kouame [facility] 04:28:00 [facility] LACTIC ACID, ARTERIAL 2022-06-09 Manuel, Kouame [facility] 04:28:00 [facility] HEPATIC FUNCTION PANEL 2022-06-09 Manuel, [facility]ame [facility] 04:28:00 [facility] CALCIUM, IONIZED 2022-06-09 Manuel, Kouame [facility] 04:28:00 [facility] PHOSPHORUS 2022-06-09 Manuel, Kouame [facility] 04:28:00 [facility] MAGNESIUM 2022-06-09 Manuel, Kouame [facility] 04:28:00 [facility] VWF ACTIVITY 2022-06-[address] [facility] 04:28:00 [facility] XR CHEST 1 VIEW PORTABLE / 2022-06-09 Manuel, [facility]ame [facility] BEDSIDE 01:43:00 [facility] TRANSFUSE LEUKO-REDUCED 2022-06-09 Manuel, Chikis [facility] 01:38:00 [facility] THROMBOELASTOGRAPH (TEG) 2022-06-09 Manuel, [facility]is [facility] 01:14:00 [facility] TRANSFUSE PLASMA 2022-06-09 Manuel, Chikis [facility] 00:46:00 [facility] TRANSFUSE LEUKO-REDUCED RED 2022-06-09 Manuel, Chikis [facility] BLOOD CELLS 00:34:00 [facility] CBC W/PLT COUNT & AUTO 2022-06-09 Manuel, Chikis [facility] DIFFERENTIAL 00:29:00 [facility] CBC W/PLT COUNT & AUTO 2022-06-09 Manuel, Chikis [facility] DIFFERENTIAL 00:29:00 [facility] (CELLAVISION MANUAL DIFF) 2022-06-09 Manuel, [facility]is [facility] 00:29:00 [facility] BLOOD GAS, ARTERIAL 2022-06-09 Manuel, Chikis [facility] 00:26:00 [facility] VITAMIN B12 2022-06-[address] [facility] 00:25:00 [facility] BASIC METABOLIC PANEL 2022-06-09 Manuel, Chikis [facility] 00:25:00 [facility] FIBRINOGEN 2022-06-09 Manuel, [facility]is [facility] 00:25:00 [facility] LACTIC ACID, ARTERIAL 2022-06-09 Manuel, Chikis [facility] 00:25:00 [facility] CALCIUM, IONIZED 2022-06-09 Manuel, Chikis [facility] 00:25:00 [facility] MAGNESIUM 2022-06-09 Manuel, Yordanme [facility] 00:25:00 [facility] XR CHEST 1 VIEW PORTABLE / 2022-06-09 Manuel [facility]is [facility] 00:15:00 [facility] CBC (HEMOGRAM ONLY) 2022-06-08 Manuel, Chatouame [facility] 22:09:00 [facility] BLOOD GAS, ARTERIAL 2022-06-08 Manuel, Kouame [facility] 22:06:00 [facility] TRANSFUSE PLASMA 2022-06-08 Mofor, Matthew Tisohailla [facility] 21:51:00 [facility] PREPARE PLASMA 2022-06-08 Manuel, Kouame [facility] 21:29:00 [facility] BLOOD GAS, ARTERIAL 2022-06-08 Mofor, Landene Tiomela [facility] 20:53:00 [facility] FIBRINOGEN 2022-06-[address] [facility] 20:50:00 [facility] PROTHROMBIN TIME/INR 2022-06-[address] [facility] 20:50:00 [facility] MAGNESIUM 2022-06-08 Manuel, Kouame [facility] 20:50:00 [facility] PHOSPHORUS 2022-06-08 Manuel, Kouame [facility] 20:50:00 [facility] CALCIUM, IONIZED 2022-06-08 Manuel, Kouame [facility] 20:50:00 [facility] LACTIC ACID, ARTERIAL 2022-06-08 Manuel, Kouame [facility] 20:50:00 [facility] APTT 2022-06-08 Manuel, Kouame [facility] 20:50:00 [facility] THROMBOELASTOGRAPH (TEG) 2022-06-08 Manuel, Kouame [facility] 20:50:00 [facility] IR EMBOLIZATION ARTERIAL 2022-06-08 Mofor, Matthew Tisohailla [facility] 20:33:00 [facility] TRANSFUSE LEUKO-REDUCED RED 2022-06-08 Mofor, Loyce Tiomela [facility] BLOOD CELLS 20:31:00 [facility] TRANSFUSE LEUKO-REDUCED RED 2022-06-08 Mofor, Loyce Tiomela [facility] BLOOD CELLS 18:18:00 [facility] SCREEN, URINE 2022-06-[address] [facility] 18:14:00 [facility] TRANSFUSE CRYOPRECIPITATE 2022-06-[address] [facility] 18:04:00 [facility] TRANSFUSE PLASMA 2022-06-[address] [facility] [facility] 17:57:00 [facility] TRANSFUSE LEUKO-REDUCED 2022-06-[address] [facility] [facility] 17:41:00 [facility] THROMBOELASTOGRAPH (TEG) 2022-06-[address] [facility] 17:36:00 [facility] LACTIC ACID, ARTERIAL 2022-06-[address] [facility] 17:35:00 [facility] PT/APTT 2022-06-[address] [facility] 17:35:00 [facility] FIBRINOGEN 2022-06-08 Jack, Matthew Li [facility] 17:35:00 [facility] D-DIMER 2022-06-08 Jack, Matthew Li [facility] 17:35:00 [facility] CALCIUM, IONIZED 2022-06-[address] [facility] 17:35:00 [facility] CBC W/PLT COUNT & AUTO 2022-06-[address] [facility] DIFFERENTIAL 17:35:00 [facility] BASIC METABOLIC PANEL 2022-06-08 Matthew Santiago [facility] 17:35:00 [facility] RETICULOCYTE COUNT 2022-06-[address] [facility] 17:35:00 [facility] LACTATE DEHYDROGENASE (LDH) 2022-06-[address] [facility] 17:35:00 [facility] CBC W/PLT COUNT & AUTO 2022-06-[address] [facility] DIFFERENTIAL 17:35:00 [facility] POCT-BLOOD GASES, ARTERIAL 2022-06-08 Amalia George [facility] 17:22:00 [facility] POCT-SODIUM 2022-06-[address] [facility] 17:22:00 [facility] POCT-POTASSIUM 2022-06-08 Doris, Amalia [facility] 17:22:00 [facility] POCT-HEMOGLOBIN 2022-06-08 Doris, Amalia [facility] 17:22:00 [facility] POCT-HEMATOCRIT 2022-06-08 Doris, Amalia [facility] 17:22:00 [facility] POCT-GLUCOSE 2022-06-08 Doris, Amalia [facility] 17:22:00 [facility] HEPATITIS C PCR, 2022-06-08 Donavan, Apagarry [facility] QUANTITATIVE 16:26:00 [facility] HEPATITIS B PCR, 2022-06-08 Pernell, Apaar [facility] QUANTITATIVE 16:26:00 [facility] CMV PCR, QUANTITATIVE 2022-06-[address] [facility] 16:26:00 [facility] EBV VIRAL LOAD 2022-06-[address] [facility] 16:26:00 [facility] TRANSFUSE LEUKO-REDUCED RED 2022-06-[address] [facility] BLOOD CELLS 16:15:00 [facility] SALICYLATE LEVEL 2022-06-[address] [facility] 15:26:00 [facility] CORTISOL 2022-06-[address] [facility] 15:26:00 [facility] HEPATITIS B CORE ANTIBODY, 2022-06-08 [facility] TOTAL 15:26:00 [facility] HEPATITIS A ANTIBODY, IGG 2022-06-[address] [facility] 15:26:00 [facility] HEPATITIS B SURFACE ANTIBODY 2022-06-[address] [facility] 15:26:00 [facility] CERULOPLASMIN 2022-06-[address] [facility] 15:26:00 [facility] SDRSM-0-DPBYEACNIOP\\, SERUM 2022-06-[address] [facility] 15:26:00 [facility] ANTI-NUCLEAR ANTIBODY (HAYDEN) 2022-06-08 Dadlani, Apaar [facility] 15:26:00 [facility] HEPATITIS A ANTIBODY, IGM 2022-06-[address] [facility] 15:26:00 [facility] EBV ANTIBODY, IGM 2022-06-[address] [facility] 15:26:00 [facility] FERRITIN 2022-06-[address] Carson [facility] 15:26:00 [facility] IRON, TIBC, % SAT. (WITHOUT 2022-06-[address] [facility]) 15:26:00 [facility] ACTIN (SMOOTH MUSCLE) 2022-06-[address] [facility] ANTIBODY, IGG 15:26:00 [facility] HEPATITIS E ABS IGG/IGM EIA 2022-06-[address] [facility] 15:26:00 [facility] MITOCHONDRIAL AB SCREEN 2022-06-[address] [facility] 15:26:00 [facility] MITOCHONDRIAL AB TITER 2022-06-[address] [facility] 15:26:00 [facility] AMMONIA 2022-06-[address] [facility]-[address] [facility] 14:37:00 [facility] GLUCOSE 2022-06-08 Mofor, Loyce Tiomela [facility] 14:37:00 [facility] SODIUM 2022-06-08 Mofor, Loyce Tiomela [facility] 14:37:00 [facility] POTASSIUM 2022-06-08 Mofor, Loyce Tiomela [facility] 14:37:00 [facility] BASIC METABOLIC PANEL 2022-06-08 Manuel, Chatouame [facility] 14:37:00 [facility] US ABDOMEN COMPLETE 2022-06-[address] [facility] 13:36:00 [facility] US DOPPLER 2022-06-[address] [facility] 13:36:00 [facility] XR CHEST 1 VIEW PORTABLE / 2022-06-[address] [facility] BEDSIDE 12:26:00 [facility] CBC W/PLT COUNT & AUTO 2022-06-[address] [facility] DIFFERENTIAL 12:23:00 D. [facility] COMPREHENSIVE METABOLIC 2022-06-[address] [facility] [facility] PANEL 12:23:00 D. [facility] APTT 2022-06-08 Zachariaho, Joey [facility] 12:23:00 D[facility] PROTHROMBIN TIME/INR 2022-06-08 Zachariaho, Joey [facility] 12:23:00 D. [facility] MAGNESIUM 2022-06-08 Zachariaho[facility] Joey [facility] 12:23:00 D[facility] PHOSPHORUS 2022-06-08 Zachariaho, Joey [facility] 12:23:00 D. [facility] IRON, TIBC, % SAT. (WITHOUT 2022-06-[address] [facility] FERRITIN) 12:23:00 D. [facility] FERRITIN 2022-06-08 Zachariaho, Joey [facility] 12:23:00 D. [facility] VITAMIN B12 2022-06-08 MargaritoGuzmano, Joey [facility] 12:23:00 D. [facility] FIBRINOGEN 2022-06-08 Nir, [facility]a [facility] 12:23:00 [facility] TSH/FREE T4 IF INDICATED 2022-06-08 Nir, [facility]a [facility] 12:23:00 [facility] HEPATITIS C ANTIBODY 2022-06-08 [facility] [place] [facility] 12:23:00 [facility] HEPATITIS B SURFACE ANTIGEN 2022-06-08 [facility] [place] [facility] 12:23:00 [facility] HC LAB HIV-1 AG W/HIV-1&2 AB 2022-06-08 Yonatanlan, Ap[facility]ar [facility] 12:23:00 [facility] T4, FREE 2022-06-08 Nir, [facility]a [facility] 12:23:00 [facility] TYPE AND SCREEN, AUTOMATED 2022-06-[address] [facility] W[facility]T [facility] & AUTO 2022-06-08 José MiguelLubaRaya, Joye [facility] DIFFERENTIAL 12:23:00 [facility] POCT-BLOOD GASES, ARTERIAL 2022-06-08 Amalia George [facility] 12:18:00 [facility] POCT-SODIUM 2022-06-[address] [facility] 12:18:00 [facility] POCT-POTASSIUM 2022-06-[address] [facility] 12:18:00 [facility] POCT-HEMOGLOBIN 2022-06-[address] [facility] 12:18:00 [facility] POCT-HEMATOCRIT 2022-06-[address] [facility] 12:18:00 [facility] POCT-GLUCOSE 2022-06-[address] [facility] 12:18:00 [facility] EKG-SCANNED 2022-06-[address] [facility] [facility] US Pelvic Transvag W Doppler 2022-03-09 [facility] 03:52:[address] Abdomen Pelvis W Con 2022-03-09 [facility] 00:15:00 Health EKG 12 Lead in Emergency 2022-03-08 [facility] Room 23:09:00 Health XR Chest 1 View Portable 2022-03-08 [facility] 23:08:00 Health PREPARE RBC 2022-02-[address] [facility] 23:54:00 [facility] MAGNESIUM 2022-02-[address] [facility] 03:49:00 [facility] PHOSPHORUS 2022-02-[address] [facility] 03:49:00 [facility] IRON, TIBC, % SAT. (WITHOUT 2022-02-27 Soheila-Rach, Henriettag [facility] 03:49:[address] [facility] FERRITIN 2022-02-27 Soheila-Rach, Sung In [facility] 03:49:00 H [facility] INCUBATED 1:1 MIXING STUDY 2022-02-27 Nathaniel Dooley In [facility] 03:49:00 [facility] BASIC METABOLIC PANEL 2022-02-27 Miah Sung In [facility] 03:49:00 [facility] CBC (HEMOGRAM ONLY) 2022-02-[address] [facility] 03:49:00 [facility] TISSUE EXAM 2022-02-[address] [facility] 16:38:00 [facility] CBC (HEMOGRAM ONLY) 2022-02-[address] [facility] 08:34:00 [facility] PT/APTT 2022-02-[address] In [facility] 08:33:[address] [facility] FACTOR 9 ACTIVITY 2022-02-[address] [facility] 08:[facility]:[address] [facility] FACTOR 8 ACTIVITY 2022-02-[address] [facility] 08:33:00 [facility] HEMOGLOBIN AND HEMATOCRIT 2022-02-[address] [facility] 05:29:00 [facility] RETICULOCYTE COUNT 2022-02-[address] [facility] 05:29:[address] [facility] CALCIUM, IONIZED 2022-02-[address] [facility] 03:56:00 [facility] TRANSFUSE LEUKO-REDUCED RED 2022-02-26 Catherine Mooney [facility] BLOOD CELLS 01:35:00 [facility] SARS-COV2/RT-PCR (SLHS & REF 2022-02-[address] [facility] LABS) 23:23:00 [facility] ABORH, MANUAL 2022-02-[address] [facility] 23:22:00 [facility] CBC W/PLT COUNT & AUTO 2022-02-25 Catherine Mooney [facility] Julissa DIFFERENTIAL 22:03:00 [facility] COMPREHENSIVE METABOLIC 2022-02-25 [facility] PANEL 22:03:00 [facility] PROTHROMBIN TIME/INR 2022-02-[address] [facility] 22:03:00 [facility] MAGNESIUM 2022-02-[address] [facility] 22:03:00 [facility] TYPE AND SCREEN, AUTOMATED 2022-02-[address] [facility] 22:03:00 [facility] CBC W/PLT COUNT & AUTO 2022-02-[address] [facility] DIFFERENTIAL 22:03:00 [facility] [id number] 2020-01-24 [facility] 00:00:00 [facility] [id number] 2020-01-24 [facility] 00:00:00 [facility] [id number] 2020-01-24 [place] [facility] Juli[facility] ti 00:00:00 [facility] Plan of Care Planned Activity Planned Date [...] Medical Center INFLUENZA VACCINE (#1)] Future Scheduled 2021-03-[address] [facility] Test 00:00:00 (12+) [code = Medical Center DEPRESSION SCREENING (12+)] Future Scheduled 2004-09-[address] [facility] Test 00:00:00 malignant neoplasm of Medica l Center cervix (procedure) [code = [id number]] Future Scheduled 2002-09-07 DTAP/TDAP/TD VACCINES CH I [...] Date/Time Type Type Clinicians Facility Department ID 2022-08-12 Inpatient ER [facility] Obstetrics [id number] 06:20:[address] [facility] 2022-03-09 Hospital ER [facility] Gynecology [id number] 00[facility] [facility] 2020-01-24 Inpatient Corradal, HCACC SHANA [id number] [facility] 04:01:00 Armond [id number] [facility] 2022-09-12 2022-09-12 Patient MannyLouisa MELANY [id number] [facility] 00:00:00 00:00:00 Outreach E TAN [id number] [id number] [address] 2022-09-03 2022-09-03 Patient Louisa Bryant [id number] [facility] 00:00:00 00:00:00 Outreach E TAN [id number] [phone] [address] 2022-08-27 2022-08-27 Patient Louisa Bryant [id number] [facility] 00:00:00 00:00:00 Outreach E TAN [id number] [id number] [id number] [address] 2022-08-23 2022-08-23 Patient Louisa BryantNatalya [id number] [facility] 00:00:00 00:00:00 Outreach E TAN [id number] [id number] [id number] [address] 2022-08-16 2022-08-16 Transition MELANY Ngo [id number] [facility] 00:00:00 00:00:00 of Care Angelica TAN [id number] [id number] [id number] [address] 2022-08-16 2022-08-16 Transition MELANY Ngo [id number] Univers 00:00:00 00:00:00 of Care Angelica TAN [id number] [id number] [id number] [address] 2022-08-12 2022-08-15 Inpatient U [facility] [id number] Univers 11:27:00 18:44:00 ELLI ity [facility] 2022-08-12 2022-08-15 [facility] Elli Encarnacion 1.2.8 [id number] [facility] 11:27:00 18:44:00 Encounter Ray Vern Ramesh LINDA 350.1.1 3.10 ity [facility] [id number] Larry as [phone] [address] 2022-07-21 2022-07-27 Inpatient ER ABHILASH, [facility] Neuro ICU [id number] [facility] 10:45:00 13:59:00 YASHASH 2022-06-19 2022-06-19 Tumor Se[place], [facility] [id number] [facility] [address] 00:00:00 00:00:00 Board Farzaneh Costa [facility] 2022-06-08 2022-06-14 Inpatient ER ROX [facility] Marketing 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 [id number] [facility] 10:46:00 14:05:00 [facility] Oncology 2022-06-08 2022-06-14 Hospital ER Amalia George [facility] [id number] [facility] 10:46:00 14:05:00 Encounter Hussein Winslow [facility] 2022-06-14 2022-06-14 Outpatient EL SLE SLE [id number] [facility] 07:39:48 07:39:48 2022-06-13 2022-06-13 Outpatient EL [facility] [id number] SLE 11:32:48 11:32:48 2022-06-12 2022-06-12 [id number] 08:50:39 08:50:39 2022-03-18 2022-03-18 Emergency ER Senthil, [facility] [id number] 18:23:00 22:48:00 Boy -[id number] Eron Aaron 2022-03-13 2022-03-13 Outside Jodie [facility] [id number] 00:00:00 00:00:00 Orders Hebert Costa [facility] 2022-03-09 2022-03-12 Inpatient U Yessenia, LSJX MED [id number] STLSJX 08:49:00 14:02:00 Gabe -[id number] 2022-03-12 2022-03-12 Orders Jodie, [facility] [id number] 00:00:00 00:00:00 Only [facility] 2022-03-08 2022-03-09 Emergency ER Wen, [facility] [id number] St 22:41:00 09:05:00 [place] -[id number] Eron garcia Hesham Vitale 2022-03-09 2022-03-09 Admitted [id number] [facility] [id number] 08:49:00 08:49:00 Inpatient [id number] Regional 50 J oseph -[id number] [facility] Re giona [id number] [facility] 2022-03-09 2022-03-09 Telephone Enochs, [facility] [id number] [facility] 00:00:00 00:00:[address] [facility] 2022-02-25 2022-02-27 Inpatient ER CARTER, DANA SLEH Marketing 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 [id number] SLE 21:25:00 19:09:00 Oncology 2022-02-25 2022-02-27 Hospital ER Noris Cabrera [facility] [id number] 21:25:00 19:09:00 Encounter Catherine Mooney Sung In Medical Carter, Dana Cent[facility] 2022-02-25 2022-02-25 Emergency ER Sharer, [facility] [id number] St 10:23:00 19:24:00 [facility] -[id number] Eron Aaron 2022-02-15 2022-02-15 Outpatient GC_BVWC_Sou PRIV PRIV [id number] [facility] 00:00:00 00:00:00 _J [id number] Medica l 2021-10-11 2021-10-11 Emergency EM VANESA SanchezCC ER [id number] [facility] 13:35:00 20:55:00 Dallin Sewell [facility] 2021-10-11 2021-10-11 Emergency EM Laura [facility] [id number] [facility] 13:35:00 20:55:00 Dallin [id number] [facility] Results Test Description Test Time Test Comments Results Result Comments Source Vancomycin Random Level 2022-08-14 16:12:20 Test Item Value Reference Range Interpretation Comme nts VANCO RANDOM (test code = 9011379901) 25.5 ug/mL [facility] [id number] 17:06:44 Test Item Value Reference Range Interpretation Comments LDH (test code = 8641369433) 120 U/L 120-246 Lab Interpretation (test code = Normal 75728-2) [facility]inal [id number] 21:40:51 Test Item Value Reference Range Interpretation Comments NT-proBNP (test code = 5010 pg/mL <=125 H 3146850653) NING (test code = NING) Biotin has been reported to cause a negative bias, interpret results relative to patient's use of biotin. Lab Interpretation (test Abnormal code = 62038-3) [facility] HospitalGlycosylated Hemoglobin (A1C)2022-08-12 20:20:43 Test Item Value Reference Range Interpretation Comments HGB A1C (test code = 5.1 % 4.0-5.7 4548-4) NING (test code = NING) Reference RangesNormal: <5.7%Prediabetes: 5.7 - 6.4%Diabetes: > 6.5% Lab Interpretation (test Normal code = 64869-5) [facility] HospitalThyroid Stimulating [id number] 20:03:36 Test Item Value Reference Range Interpretation Comments TSH (test code = 4.29 See_Comment [Automated message] 0157274175) The system [employer]Two[employer] generated this result transmitted ref erence range: 0.45 - 4 .70 mIU/L. The refe rence range was not u sed to interpret this result as normal/abnor mal. Lab Interpretation (test Normal code = 71723-4) [facility] HospitalBasi Metabolic Panel (NA, K, CL, CO2, Glucose, BUN, Creatinine, CA)2022-08-12 18:34:11 Test Item Value Reference Range Interpretation Comments NA (test code = 141 mmol/L 135-145 6416442425) K (test code = 3.9 mmol/L 3.5-5.0 0584035301) CL (test code = 114 mmol/L 98-108 H 8206426720) CO2 TOTAL (test code = 17 mmol/L 23-31 L 0708825969) AGAP (test code = 10 2-16 1069072736) BUN (test code = 16 mg/dL 7-23 8400347081) GLUCOSE (test code = 81 mg/dL 70-110 3740574277) CREATININE (test code = 1.61 mg/dL 0.50-1.04 H 7483903991) CALCIUM (test code = 7.6 mg/dL 8.6-10.6 L 8832489720) eGFR (test code = 35.8 mL/min/1.73m2 1703194968) NING (test code = NING) Association of Glomerular Filtration Rate (GFR) and Staging of Kidney Disease* + --+ --+ ------+| GFR (mL/min/1.73 m2) ?| With Kidney Damage ?| ?Without Kidney Damage+ --------+ --------+ +| ?>90 ?| ?Stage one ?| ? Normal ?+ ---+ ---+ -------+| ?60-89 ?| ?Stage two ?| ? Decreased GFR ? + --+ --+ ------+| ?30-59 ?| ?Stage three ?| ? Stage three ? + --+ --+ ------+| ?15-29 ?| ?Stage four ? | ? Stage four ?+ ---+ ---+ -------+| ?<15 (or dialysis) ? ?| ?Stage five ? | ? Stage five ?+ ---+ ---+ -------+ *Each stage assumes the associated GFR level has been in effect for at least three months. ?Stages 1 to 5, with or without kidney disease, indicate chronic kidney disease. Notes: Determination of stages one and two (with eGFR >59mL/min/1.73 m2) requires estimation of kidney damage for at least three months as defined by structural or functional abnormalities of the kidney, manifested by either:Pathological abnormalities or Markers of kidney damage (including abnormalities in the composition of the blood or urine or abnormalities in imaging tests). Lab Interpretation Abnormal (test code = 37960-9) [facility] HospitalMagnesium [id number] 18:34:11 Test Item Value Reference Range Interpretation Comments MAGNESIUM (test code = 9624155419) 1.4 mg/dL 1.7-2.4 L Lab Interpretation (test code = Abnormal 41819-5) [facility] HospitalPhosphorus [id number] 18:34:11 Test Item Value Reference Range Interpretation Comments PHOSPHORUS (test code = 1943440462) 3.3 mg/dL 2.5-5.0 Lab Interpretation (test code = Normal 02102-6) [facility] HospitalHepatic Function Panel (ALB, T.PRO, BILI T, BU/BC, ALT, AST, ALK, PHOS)2022-08-12 18:34:11 Test Item Value Reference Range Interpretation Comments TOTAL BILI (test code = 4756198358) 0.6 mg/dL 0.1-1.1 BILI UNCON (test code = 4680774880) 0.4 mg/dL 0.1-1.1 BILI CONJ (test code = 5757447323) 0.0 mg/dL 0.0-0.3 T PROTEIN (test code = 0346075454) 6.2 g/dL 6.3-8.2 L ALBUMIN (test code = 1696777840) 2.8 g/dL 3.5-5.0 L ALK PHOS (test code = 1844133527) 92 U/L 34-122 ALTv (test code = 1742-6) 19 U/L 5-35 AST(SGOT) (test code = 0551004923) 23 U/L 13-40 Lab Interpretation (test code = Abnormal 27465-4) [facility] HospitalaPTT2023-06-05 17:53:33 Test Item Value Reference Range Interpretation Comments APTT Patient (test code = 26 See_Comment [ Automated message] 4843-2) The system [employer] generated this result transmitted ref erence range: 26 - 36 Seconds. The re ference range was not u sed to interpret this result as normal/abnor mal. Lab Interpretation (test Normal code = 38786-0) [facility] HospitalProthrombin Time / [id number] 17:53:33 Test Item Value Reference Range Interpretation Comments PROTIME PATIENT (test 12.8 See_Comment H [Auto mated message] code = 5964-2) The system wh ich generated this result transmitted ref erence range: 10.1 - 1 2.6 Seconds. The reference range was not used to int erpret this result as normal/abnormal . INR (test code = 6301-6) 1.1 Nor mal INR <1.1; Warfarin Therap eutic range 2.0 to 3. 0 or 2.5 to 3.5, dep ending upon the indica tions. Lab Interpretation (test Abnormal code = 86057-2) [facility] HospitalCBC with [id number] 17:47:13 Test Item Value Reference Range Interpretation Comments WBC (test code = 14.03 See_Comment H [Automated 6690-2) message] The system which generated this result transmit erna reference range : 4.30 - 11.10 10*3/?L. The reference range was not used to interpret this result as normal/abnormal . RBC (test code = 3.18 See_Comment L [Automated 789-8) message] The system which generated this result transmit erna reference range : 3.93 - 5.25 10*6/?L. The reference range was not used to interpret this result as normal/abnormal . HGB (test code = 9.5 g/dL 11.6-15.0 L 718-7) HCT (test code = 28.5 % 35.7-45.2 L 4544-3) MCV (test code = 89.6 fL 80.6-95.5 787-2) MCH (test code = 29.9 pg 25.9-32.8 785-6) MCHC (test code = 33.3 g/dL 31.6-35.1 786-4) RDW-SD (test code = 53.2 fL 39.0-49.9 H 59511-1) RDW-CV (test code = 16.3 % 12.0-15.5 H 788-0) PLT (test code = 214 See_Comment [Automated 777-3) message] The system which generated this result transmit erna reference range : 166 - 358 10*3/ ?L. The reference range was not u sed to interpret th is result as normal/abnormal . MPV (test code = 9.7 fL 9.5-12.9 56766-1) NRBC/100 WBC (test 0.0 See_Comment [Automat ed code = 3606185332) message] The system which generated this result transmit erna reference range : 0.0 - 10.0 /100 WBCs. The reference range was not used to interpret this result as normal/abnormal . NRBC x10^3 (test code See_Comment [Auto mated = 7091154973) message] The system which generated this result transmit erna reference range : 10*3/?L. The reference range was not used to interpret this result as normal/abnormal . GRAN MAT (NEUT) % 92.1 % (test code = 770-8) IMM GRAN % (test code 0.90 % = 8617011873) LYMPH % (test code = 3.9 % 736-9) MONO % (test code = 2.8 % 5905-5) EOS % (test code = 0.2 % 713-8) BASO % (test code = 0.1 % 706-2) GRAN MAT x10^3(ANC) 12.92 10*3/uL 1.88-7.09 H (test code = 1740003379) IMM GRAN x10^3 (test 0.12 10*3/uL 0.00-0.06 H code = 0219609003) LYMPH x10^3 (test code 0.55 10*3/uL 1.32-3.29 L = 731-0) MONO x10^3 (test code 0.39 10*3/uL 0.33-0.92 = 742-7) EOS x10^3 (test code = 0.03 10*3/uL 0.03-0.39 711-2) BASO x10^3 (test code 0.01-0.07 = 704-7) Lab Interpretation Abnormal (test code = 62500-0) [facility] [id number] 07:57:35 Test Item Value Reference Range Interpretation Comments POC-GLUCOSE METER 96 mg/dL 70-110 : TESTED A T [facility] 6720 (BEAKER) (test code [place], = 1538) 51718: Account Receivable Associate/Techni skip ID = [id number] for Sidney (contract)Tito [id number] 07:34:33 Test Item Value Reference Range Interpretation Comments PHOSPHORUS (BEAKER) (test code = 3.7 mg/dL 2.3-4.7 604) Account Receivable Associate ID - MARCOBASIC METABOLIC [id number] 07:34:32 Test Item Value Reference Range Interpretation [...] not appl icable for dialysis patien ts Account Receivable Associate ID - [id number] 07:34:32 Test Item Value Reference Range Interpretation Comments MAGNESIUM (BEAKER) (test code = 1.8 mg/dL 1.6-2.6 627) Account Receivable Associate ID - MARCOCBC W/PLT COUNT & AUTO [id number] 06:33:48 Test Item Value Reference Range Interpretation [...] 417) IMMATURE GRANULOCYTES-RELATIVE 0.30 % 0.00-1.00 PERCENT (ALEXANDER) (test code = 2801) MR, BRAIN, WITHOUT [id number] 20:08:00Epilepsy protocol Unlisted Reason for Exam - Click Yes and Enter Reason Below->No [facility] 1985 Sex: [...] mass. No mesial temporal sclerosis identified. Signed: Dillan Miguel MDReport Verified Date/Time: 07/26/2022 20:08:29 POCT-GLUCOSE [id number] 16:21:21 Test Item Value Reference Range Interpretation Comments POC-GLUCOSE METER 90 mg/dL 70-110 : TESTED A T [facility] 6720 (Wedivite) (test code [facility], = 1538) 43214: Account Receivable Associate/Techni skip ID = [id number] for Raiza (contract)Janet POCT-GLUCOSE [id number] 11:24:11 Test Item Value Reference Range Interpretation Comments POC-GLUCOSE METER 84 mg/dL 70-110 : TESTED A T [facility] 6720 (Wedivite) (test code = [place], 1538) 55219: Account Receivable Associate/Techni skip ID = [id number] for Alva Gonzalez [id number] 06:24:20 Test Item Value Reference Range Interpretation Comments PHOSPHORUS (BEAKER) (test code = 3.1 mg/dL 2.3-4.7 604) Account Receivable Associate ID - ADMINBASIC METABOLIC [id number] 06:24:19 Test Item Value Reference Range Interpretation [...] not appl icable for dialysis patien ts Account Receivable Associate ID - [id number] 06:24:19 Test Item Value Reference Range Interpretation Comments MAGNESIUM (BEAKER) (test code = 1.8 mg/dL 1.6-2.6 627) Account Receivable Associate ID - ADMINCBC W/PLT COUNT & AUTO [id number] 05:27:14 Test Item Value Reference Range Interpretation [...] PERCENT (BEAKER) (test code = 2801) POCT-GLUCOSE [id number] 18:35:43 Test Item Value Reference Range Interpretation Comments POC-GLUCOSE METER 114 mg/dL 70-110 H : TESTED A T [facility] 6720 (BEAKER) (test code = [facility], 1538) 30819: Account Receivable Associate/Techni skip ID = [id number] for Joni Shook POCT-GLUCOSE [id number] 16:30:37 Test Item Value Reference Range Interpretation Comments POC-GLUCOSE METER 104 mg/dL 70-110 : TESTED A T [facility] 6720 (BEAKER) (test code = [facility], 1538) 87709: Account Receivable Associate/Techni skip ID = [id number] for Mouna peraza, Amanda POCT-GLUCOSE [id number] 13:06:15 Test Item Value Reference Range Interpretation Comments POC-GLUCOSE METER 96 mg/dL 70-110 : TESTED A T [facility] 6720 (BEAKER) (test code = [facility], 1538) 54261: Account Receivable Associate/Techni skip ID = [id number] for Megan odell, Amanda POCT-GLUCOSE [id number] 07:46:57 Test Item Value Reference Range Interpretation Comments POC-GLUCOSE METER 84 mg/dL 70-110 : TESTED A T [facility] 6720 (BEAKER) (test code = [facility], 1538) 50028: Account Receivable Associate/Techni skip ID = [id number] for Megan odell, Amanda [id number] 05:56:08 Test Item Value Reference Range Interpretation Comments MAGNESIUM (BEAKER) (test code = 2.4 mg/dL 1.6-2.6 627) Account Receivable Associate ID - [id number] 05:56:08 Test Item Value Reference Range Interpretation Comments PHOSPHORUS (BEAKER) (test code = 3.2 mg/dL 2.3-4.7 604) Account Receivable Associate ID - ADMINCOMPREHENSIVE METABOLIC [id number] 05:56:07 Test Item Value Reference Range Interpretation [...] not appl icable for dialysis patien ts Account Receivable Associate ID - ADMINCBC W/PLT COUNT & AUTO [id number] 05:18:06 Test Item Value Reference Range Interpretation [...] PERCENT (BEAKER) (test code = 2801) POCT-GLUCOSE [id number] 21:30:58 Test Item Value Reference Range Interpretation Comments POC-GLUCOSE METER 86 mg/dL 70-110 : TESTED A T [facility] 6720 (BEAKER) (test code = [facility], 1538) 53351: Account Receivable Associate/Techni skip ID = [id number] for Suad Pedraza POCT-GLUCOSE [id number] 16:20:27 Test Item Value Reference Range Interpretation Comments POC-GLUCOSE METER 91 mg/dL 70-110 : TESTED A T [facility] 6720 (BEAKER) (test code = [facility], 1538) 42447: Account Receivable Associate/Techni skip ID = [id number] for Megan odell, Amanda POCT-GLUCOSE [id number] 12:01:05 Test Item Value Reference Range Interpretation Comments POC-GLUCOSE METER 87 mg/dL 70-110 : TESTED A T [facility] 6720 (BEAKER) (test code = [facility], 1538) 73170: Account Receivable Associate/Techni skip ID = [id number] for Megan odell, Amanda POCT-GLUCOSE [id number] 08:41:45 Test Item Value Reference Range Interpretation Comments POC-GLUCOSE METER 90 mg/dL 70-110 : TESTED A T [facility] 6720 (BEAKER) (test code = [facility], 1538) 37442: Account Receivable Associate/Techni skip ID = [id number] for Megan odell, Amanda [id number] 07:22:20 Test Item Value Reference Range Interpretation Comments MAGNESIUM (BEAKER) (test code = 1.4 mg/dL 1.6-2.6 L 627) [id number] 07:22:20 Test Item Value Reference Range Interpretation Comments PHOSPHORUS (BEAKER) (test code = 3.5 mg/dL 2.3-4.7 604) BASIC METABOLIC [id number] 07:22:19 Test Item Value Reference Range Interpretation [...] patien ts CBC W/PLT COUNT & AUTO [id number] 06:58:59 Test Item Value Reference Range Interpretation [...] PERCENT (BEAKER) (test code = 2801) POCT-GLUCOSE [id number] 23:49:34 Test Item Value Reference Range Interpretation Comments POC-GLUCOSE METER 96 mg/dL 70-110 : TESTED A T [facility] 6720 (BEAKER) (test code = [facility], [facility]) 05628: Account Receivable Associate/Techni skip ID = [id number] for Tere Davis POCT-GLUCOSE [id number] 17:33:01 Test Item Value Reference Range Interpretation Comments POC-GLUCOSE METER 120 mg/dL 70-110 H : TESTED A T [facility] 6720 (BEAKER) (test code = [facility], 153) 88485: Account Receivable Associate/Techni skip ID = [id number] for Nichole Hair POCT-GLUCOSE [id number] 11:09:16 Test Item Value Reference Range Interpretation Comments POC-GLUCOSE METER 107 mg/dL 70-110 : TESTED A T [facility] 6720 (BEAKER) (test code = [facility], 153) 57909: Account Receivable Associate/Techni skip ID = [id number] for Nichole Hair BASIC METABOLIC [id number] 07:14:49 Test Item Value Reference Range Interpretation [...] not appl icable for dialysis patien ts Account Receivable Associate ID - [id number] 07:11:55 Test Item Value Reference Range Interpretation Comments MAGNESIUM (BEAKER) (test code = 1.6 mg/dL 1.6-2.6 627) Account Receivable Associate ID - [id number] 07:11:55 Test Item Value Reference Range Interpretation Comments PHOSPHORUS (BEAKER) (test code = 3.8 mg/dL 2.3-4.7 604) Account Receivable Associate ID - BSCBC W/PLT COUNT & AUTO [id number] 06:07:30 Test Item Value Reference Range Interpretation [...] (BEAKER) (test code = 2801) BASIC METABOLIC [id number] 23:20:26 Test Item Value Reference Range Interpretation [...] decreased 60-89 G3a Mildl y to moderately 45- 59 G3b Moderately to s everely 30-44 G4 Severl y decreased 15-29 G5 Kidney failure <15Reported eGF R is based on the CKD-EPI 2020 equation that d oes not use a race coefficientEsti mated GFR is not as accur ate as Creatinine [place] pura in predicting glom erular filtration rate . Estimated GFR is not appl icable for dialysis patien ts Account Receivable Associate ID - BSPOCT-GLUCOSE [id number] 19:11:02 Test Item Value Reference Range Interpretation Comments POC-GLUCOSE METER 87 mg/dL 70-110 : TESTED A T [facility] 6720 (BEAKER) (test code = [place], 1538) 55339: Account Receivable Associate/Techni skip ID = [id number] for Nichole Moore, NEPHROSTOMY, PERC, EXTERNAL [id number] 17:55:00Reason for exam:- >b/l [facility] placement [facility] 1985 Sex: FFINAL REPORT PROCEDURE: Genitourinary catheter placement Procedural PersonnelAttending physician(s): Balta Jeronimo M.D.Fellow physician(s): [place] physician(s): NoneAdvanravindra practice provider(s): None Pre-procedure diagnosis: Bilateral hydronephrosisPost-procedure [...] three months. PROCEDURE SUMMARY- Target organ: Bilateral nome kidneys- Image-guided placement of genitourinary catheter(s)- Additional [...] MDReport Verified Date/Time: 07/22/2022 17:55:16 Reading Location: [address] Neuro Reading Room HCG, QUANTITATIVE, [id number] 16:00:13 Test Item Value Reference Range Interpretation Comments GONADOTROPIN, CHORIONIC (HCG) QUANT < mIU/mL 0-10 (BEAKER) (test code = 649) Non- Females: <10 mIU/mL Females: Gestation Age Reference Range(mIU/mL) 0.2-1 Week 5-50 1-2 Weeks 50-500 2-3 Weeks 100-5,000 3-4 Weeks 500-10,000 4-5 Weeks 1,000-50,000 5-6 Weeks 10,000-100,000 6-8 Weeks 15,000- 200,000 2-3 Months 10,000-100,000 Account Receivable Associate ID - BSBASIC METABOLIC PANEL 2022-07-22 12:58:04 Test Item Value [...] not appl icable for dialysis patien ts Account Receivable Associate ID - ADMINPOCT-GLUCOSE [id number] 12:28:22 Test Item Value Reference Range Interpretation Comments POC-GLUCOSE METER 92 mg/dL 70-110 : TESTED A T [facility] 6720 (BEAKER) (test code = [place], 1538) 90290: Account Receivable Associate/Techni skip ID = [id number] for Nichole Moore POCT-GLUCOSE [id number] 07:55:05 Test Item Value Reference Range Interpretation Comments POC-GLUCOSE METER 97 mg/dL 70-110 : TESTED A T [facility] 6720 (BEAKER) (test code = [facility] Sadi [facility], 1538) 05416: Account Receivable Associate/Techni skip ID = [id number] for Nichole Moore POCT-GLUCOSE [id number] 06:39:17 Test Item Value Reference Range Interpretation Comments POC-GLUCOSE METER 90 mg/dL 70-110 : TESTED A T [facility] 6720 (BEAKER) (test code = JANIE Avitia [facility], 1538) 70767: Account Receivable Associate/Techni skip ID = [id number] for KARON WATSON CT, [id number] 05:29:00Unlisted Reason for Exam - Click Yes and Enter Reason Below->YesUnlisted Reason for Exam->ESRD; Hx Cervical CarcinomaProtocol Please Specify:->Standard ProtocolWill this procedure require oralcontrast?->No [facility] : 1985 Sex: FFINAL [...] MDReport Verified Date/Time: 07/22/2022 05:29:38 C METABOLIC [id number] 04:02:59 Test Item Value Reference Range Interpretation [...] not appl icable for dialysis patien ts Account Receivable Associate ID - CLAUDIA [id number] 03:38:17 Test Item Value Reference Range Interpretation Comments PHOSPHORUS (BEAKER) (test code = 4.1 mg/dL 2.3-4.7 604) Account Receivable Associate ID - CLAUDIA [id number] 03:38:16 Test Item Value Reference Range Interpretation Comments MAGNESIUM (BEAKER) (test code = 1.7 mg/dL 1.6-2.6 627) Account Receivable Associate ID Gonzalez TAYLOR [id number] 03:33:49 Test Item Value Reference Range Interpretation Comments PARTIAL THROMBOPLASTIN TIME 33.4 seconds 22.5-36.0 (BEAKER) (test code = 760) PROTHROMBIN TIME/[id number] 03:33:07 Test Item Value Reference Range Interpretation [...] mechanical heart valves.CBC W/PLT COUNT & AUTO [id number] 03:23:16 Test Item Value Reference Range Interpretation [...] = 2801) RAD, CHEST, 1 VIEW, NON [id number] 23:55:00Reason for exam:->PULMONARY EDEMAShould this be performed at the bedside?->Yes [facility] : 1985 Sex: FFINAL [...] aspiration/pneumonia. Follow-up to resolution is advised. Signed: Daron Casarez [facility] Verified Date/Time: 07/21/2022 23:55:02 POCT-GLUCOSE [id number] 22:09:32 Test Item Value Reference Range Interpretation Comments POC-GLUCOSE METER 90 mg/dL 70-110 : TESTED A T [facility] 6720 (BEAKER) (test code = JANIE [facility], 1538) 20630: Account Receivable Associate/Techni skip ID = [id number] for KARON WATSON HEMOGLOBIN AND [id number] 22:02:53 Test Item Value Reference Range Interpretation Comments HEMOGLOBIN (BEAKER) (test code = 7.9 GM/DL 11.2-15.7 L 410) HEMATOCRIT (BEAKER) (test code = 22.4 % 34.1-44.9 L 411) Account Receivable Associate ID - 6000BASIC METABOLIC [id number] 20:36:21 Test Item Value Reference Range Interpretation [...] not appl icable for dialysis patien ts Account Receivable Associate ID - ADMINHEPATITIS B SURFACE [id number] 19:47:38 Test Item Value Reference Range Interpretation Comments HEPATITIS B SURFACE ANTIGEN (2) Nonreactive Nonreactive (BEAKER) (test code = 2585) Specimen is considered negative for HBsAg.HIGH SENSITIVITY TROPONIN [id number] 18:50:26 Test Item Value Reference Range Interpretation Comments HIGH SENSITIVITY TROPONIN I (test 181 pg/ml <=17 H code = 9117719) Account Receivable Associate ID - CHRISTIANO BThe [employer] ADMINISTRATOR STAT High Sensitivity Troponin-I results should be used in conjunction with other diagnostic information such as ECG, clinical observations and information, and patient symptoms to aid in the diagnosis of [place].BASIC METABOLIC [id number] 18:47:16 Test Item Value Reference Range Interpretation [...] (BEAKER) (test code = 652) CALCIUM (BEAKER) 9.3 mg/dL 8.4-10.2 (test code = 697) EGFR (BEAKER) 2 Interpretatio n of eGFR (test code = mL/min/1.73 values Stage De scription 1092) sq m Result G1 Ojjo l or high >=90 G2 Mildly decreased [...] not appl icable for dialysis patien ts Account Receivable Associate ID - CHRISTIANO BU/S, RENAL, [id number] 18:43:00Reason for exam:- >Bilateral Renal HydronephrosisShould this be performed at the bedside?->YesIMELDA ST[facility] : 1985 Sex: FFINAL REPORT Ultrasound of the Kidneys Clinical History: Bilateral Renal Hydronephrosis COMPARISON: CT 06/08/2022 at 6:34 PM from [facility] per [place] IV Discussion: Grayscale and color Doppler ultrasound [...] veins demonstrate patency. Bladder: Bladder is decompressed. 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 Signed: Daron Casarez MDReport Verified Date/Time: 07/21/2022 18:43:10 POCT-GLUCOSE [id number] 17:56:23 Test Item Value Reference Range Interpretation Comments POC-GLUCOSE METER 91 mg/dL 70-110 : TESTED A T [facility] 6720 (BEAKER) (test code = JANIE RUBALCAVA MD, 1538) 550[address]: Account Receivable Associate/Techni skip ID = [id number] for Quac h, [place] RAD, CHEST, 1 VIEW, NON [id number] 15:01:00Reason for exam:->CVC \\T\\ HD catheterShould this be performed at the bedside?->Yes [facility] Y[facility]YA PHILIP : 1985 Sex: FFINAL REPORT Chest, one view History: Insertion of central venous catheter Comparison: 06/09/2022 Findings:Interval development of mild central airspace disease, likely pulmonary edema. Normal size heart. No pleural effusion or pneumothorax. Satisfactory positions of bilateral internal jugular central venous catheters. Signed: Arturo Dumont MDReport Verified Date/Time: 07/22/19 15:01:34 Reading Location: [address] Ortho Consult Reading Room [facility] METABOLIC [id number] 12:30:54 Test Item Value Reference Range Interpretation [...] eGF R is based on the CKD-EPI 202 equation that d oes not use a race coefficientEsti mated GFR is not as accur ate as Creatinine [place] pura in predicting glom erular filtration rate . Estimated GFR is not appl icable for dialysis patien ts Account Receivable Associate ID - CHRISTIANO BOperator ID - CHRISTIANO [id number] 12:22:57 Test Item Value Reference Range Interpretation Comments MAGNESIUM (BEAKER) (test code = 2.3 mg/dL 1.6-2.6 627) Account Receivable Associate ID - CHRISTIANO [id number] 12:22:57 Test Item Value Reference Range Interpretation Comments PHOSPHORUS (BEAKER) (test code = 6.9 mg/dL 2.3-4.7 H 604) Account Receivable Associate ID - CHRISTIANO BHEPATIC FUNCTION [id number] 12:22:57 Test Item Value Reference Range Interpretation [...] (test code = 8 U/L 6-55 347) Account Receivable Associate ID - CHRISTIANO BHIGH SENSITIVITY TROPONIN [id number] 12:21:15 Test Item Value Reference Range Interpretation Comments HIGH SENSITIVITY TROPONIN I (test 58 pg/ml <=17 H code = 3925527) Account Receivable Associate ID - CHRISTIANO BThe LINUX SOLARIS ADMINISTRATOR STAT High Sensitivity Troponin-I results should be used in conjunction with other diagnostic information such as ECG, clinical observations and information, and patient symptoms to aid in the diagnosis of [place].CBC W/PLT COUNT & AUTO [id number] 12:14:08 Test Item Value Reference Range Interpretation [...] 0.00-1.00 PERCENT (BEAKER) (test code = 2801) [id number] 12:06:02 Test Item Value Reference Range Interpretation Comments FIBRINOGEN LEVEL (BEAKER) (test 459 mg/dl 225-434 H code = 658) PROTHROMBIN TIME/[id number] 12:05:45 Test Item Value Reference Range Interpretation Comments PROTIME (BEAKER) (test code = 16.0 seconds 11.9-14.2 H 759) INR (BEAKER) (test code = 370) 1.32 <=5.90 RECOMMENDED COUMADIN/WARFARIN INR THERAPY RANGESSTANDARD DOSE: 2.0 - 3.0 Includes: PROPHYLAXIS for venous thrombosis, systemic embolization; TREATMENT for venous thrombosis and/or pulmonary embolus.HIGH RISK: Target INR is 2.5-3.5 for patients with mechanical heart valves.LACTIC ACID, [id number] 12:04:00 Test Item Value Reference Range Interpretation Comments LACTATE BLOOD VENOUS (2) (BEAKER) 0.53 mmol/L 0.50-2.00 (test code = 2872) Account Receivable Associate ID - ADMINPOCT-GLUCOSE [id number] 12:02:56 Test Item Value Reference Range Interpretation Comments POC-GLUCOSE METER 91 mg/dL 70-110 : TESTED A T [facility] 6720 ([facility]) (test code = [facility], 1538) 36067: Account Receivable Associate/Techni skip ID = [id number] for Quac h, [place]a POCT-GLUCOSE [id number] 11:16:07 Test Item Value Reference Range Interpretation Comments POC-GLUCOSE METER 50 mg/dL 70-110 L : TESTED A T [facility] 6720 ([facility]) (test code = [facility], 1538) 91970: Account Receivable Associate/Techni skip ID = [id number] for Quac h, Louisa Drug Test, General Toxicology, [id number] 20:51:37 Test Item Value Reference Interpretation Comments Range Acetone(Quest) None Detected (test code = 3053) Methanol(Quest) None Detected (test code = 3054) Drug Test,Genrl see note The followin g compounds were Tox,U (test detected: Cotin ine (Nicotine code = 8661197) Metabolite) Acetaminophen Gabapentin MEGx (Lidocaine Metabolite) Caf feine Methamphetamine Lidocaine Benzoylecgonine (Cocaine Metabolite) Mela kyleigh Diphenhydramine Midazolam Cyclobenzaprine For a list of compounds and l imits of detection go to:http://educa tion.[employer]/faq /CUB627 ISOPROPANOL None Detected (test code = 5703364) ETHANOL (test None Detected Volatile Joseph it of Detection: code = 4656374) 5 mg/dL This test was developed and i ts analytical performancechar acteristics have been deter mined by [employer] [place], [place]. It hasnot been dany ared or approved by the U.S. Food and DrugAdministrat ion. This assay has been validated pursuantto the CLIA regulations and is used for clinicalpurpose s. NING (test code Performing Lab = NING) [facility] [address] [facility] [place] [address] Shawn Drake MD, PhD [facility] [id number] 16:00:20 Test Item Value Reference Range Interpretation Comments CULTURE (BEAKER) (test No growth in 5 days code = 1095) The specimen volume collected for this blood culture was below the optimum (10 mL per bottle or 20 mL total). Use of lower volumes may adversely affect recovery and/or detection times of some organisms.BLOOD [id number] 16:00:20 Test Item Value Reference Range Interpretation Comments CULTURE (BEAKER) (test No growth in 5 days code = 1095) BASIC METABOLIC [id number] 03:45:36 Test Item Value Reference Range Interpretation [...] not appl icable for dialysis patien ts Account Receivable Associate ID - BSCBC (HEMOGRAM ONLY)2022-06-14 03:30:35 Test [...] (BEAKER) (test code = 413) BASIC METABOLIC [id number] 04:27:45 Test Item Value Reference Range Interpretation [...] not appl icable for dialysis patien ts Account Receivable Associate ID - MMCBC (HEMOGRAM ONLY)2022-06-13 04:07:18 Test [...] 0-0 (BEAKER) (test code = 413) PROTHROMBIN TIME/[id number] 10:03:21 Test Item Value Reference Range Interpretation Comments PROTIME (ALEXANDER) (test code = 15.4 seconds 11.9-14.2 H 759) INR (ALEXANDER) (test code = 370) 1.30 <=5.90 RECOMMENDED COUMADIN/WARFARIN INR THERAPY RANGESSTANDARD DOSE: 2.0 - 3.0 Includes: PROPHYLAXIS for venous thrombosis, systemic embolization; TREATMENT for venous thrombosis and/or pulmonary embolus.HIGH RISK: Target INR is 2.5-3.5 for patients with mechanical heart valves.ANG, EMBOLIZATION, EXTENSIVE - [id number] 09:57:00Reason for exam:->Embolization of bleeding cervical massSONOMA DEVELOPMENTAL CENTERName: YULIYA PHILIP : 1985 Sex: FFINAL [...] uterine artery hemorrhage status post embolization. Signed: Cristino Mccloud MDReport Verified Date/Time: 06/12/2022 09:57:59 Reading Location: [facility] Diagnostic Imaging Reading Room - [place] [address] CBC W/PLT COUNT & AUTO [id number] 09:56:52 Test Item Value Reference Range Interpretation [...] GRANULOCYTES-RELATIVE PERCENT (BEAKER) (test code = 2801) [id number] 09:25:56 Test Item Value Reference Range Interpretation Comments PHOSPHORUS (BEAKER) (test code = 3.4 mg/dL 2.3-4.7 604) Account Receivable Associate ID - CLAUDIA WHEPATIC FUNCTION [id number] 09:25:56 Test Item Value Reference Range Interpretation [...] code = 117 U/L 6-55 H 347) Account Receivable Associate ID - CLAUDIA WBASIC METABOLIC [id number] 09:25:55 Test Item Value Reference Range Interpretation [...] not appl icable for dialysis patien ts Account Receivable Associate ID - CLAUDIA [id number] 09:25:55 Test Item Value Reference Range Interpretation Comments MAGNESIUM (BEAKER) (test code = 2.0 mg/dL 1.6-2.6 627) Account Receivable Associate ID - CLAUDIA WPrepare Leuko-Red [id number] 23:54:00 Test Item Value Reference Range Interpretation Comments Unit ABO (test code = 8732770) A Neg UNIT NUMBER (test code = [id number] 934-0) Status (test code = 9801104) [place]_TIMEINCHART Blood Bank Product (test code PLATELETS = 2263) PRODUCT CODE (test code = B6582X71 933-2) [facility] Hospital[facility] Leuko-Red [id number] 23:54:00 Test Item Value Reference Range Interpretation Comments Unit ABO (test code = 0256852) A Neg UNIT NUMBER (test code = [id number] 934-0) Status (test code = 0963492) [place]_TIMEINCHART Blood Bank Product (test code PLATELETS = 2263) PRODUCT CODE (test code = L1877S50 933-2) [facility] Hospital[facility] METABOLIC [id number] 13:05:32 Test Item Value Reference Range Interpretation [...] not appl icable for dialysis patien ts Account Receivable Associate ID - MARCOCBC (HEMOGRAM ONLY)2022-06-11 12:42:48 Test [...] WBC 0-0 (test code = 413) PROTHROMBIN TIME/[id number] 12:39:37 Test Item Value Reference Range Interpretation Comments PROTIME (BEAKER) (test code = 15.6 seconds 11.9-14.2 H 759) INR (BEAKER) (test code = 370) 1.32 <=5.90 RECOMMENDED COUMADIN/WARFARIN INR THERAPY RANGESSTANDARD DOSE: 2.0 - 3.0 Includes: PROPHYLAXIS for venous thrombosis, systemic embolization; TREATMENT for venous thrombosis and/or pulmonary embolus.HIGH RISK: Target INR is 2.5-3.5 for patients with mechanical heart valves.CALCIUM, [id number] 12:30:04 Test Item Value Reference Range Interpretation Comments CALCIUM IONIZED (BEAKER) (test 1.08 mmol/L 1.12-1.27 L code = 698) PH, BLOOD (BEAKER) (test code = 7.44 8010) POC-Glucose [id number] 12:05:07 Test Item Value Reference Range Interpretation Comments POC-Glucose Meter (test 85 mg/dL 70-110 : TE STED AT [facility] code = 1538) 67[address] [facility], 770 30: Account Receivable Associate/Techni skip ID = [id number] for LLUVIA GROVES Lab Interpretation (test Normal code = 59611-4) [facility] HospitalPOC-Glucose [id number] 12:05:07 Test Item Value Reference Range Interpretation Comments POC-Glucose Meter (test 85 mg/dL 70-110 : TE STED AT [facility] code = 1538) 67[address] [facility], 770 30: Account Receivable Associate/Techni skip ID = [id number] for LLUVIA GROVES Lab Interpretation (test Normal code = 37537-7) [facility] HospitalPOCT-GLUCOSE [id number] 12:05:07 Test Item Value Reference Range Interpretation Comments POC-GLUCOSE METER 85 mg/dL 70-110 : TESTED A T [facility] 6720 (BEAKER) (test code = [facility], 1538) [address]: Account Receivable Associate/Techni skip ID = [id number] for LLUVIA DANIEL EBV VIRAL [id number] 11:49:33 Test Item Value Reference Range Interpretation Comments EBV VIRAL LOAD - Negative or below See_Comment [Auto mated message] NEGATIVE ([facility]) the linear range The sy stem which (test code = of the assay generated this 2559) (<500 IU /mL) result transmi tted reference range : <500 - >5,00 0,000 IU/mL. The refe rence range was not u sed to interpret th is result as normal/abnormal . POCT-GLUCOSE [id number] 06:43:06 Test Item Value Reference Range Interpretation Comments POC-GLUCOSE METER 82 mg/dL 70-110 : TESTED A T [facility] 6720 (BEAKER) (test code = [facility], 1538) 17183: Account Receivable Associate/Techni skip ID = [id number] for Griselda Mayorga CALCIUM, [id number] 05:38:13 Test Item Value Reference Range Interpretation Comments CALCIUM IONIZED (BEAKER) (test 1.03 mmol/L 1.12-1.27 L code = 698) PH, BLOOD ([facility]) (test code = 7.42 1810) CBC (HEMOGRAM [...] CELLS (BEAKER) (test code = 413) PROTHROMBIN TIME/[id number] 05:28:51 Test Item Value Reference Range Interpretation Comments PROTIME (BEAKER) (test code = 16.1 seconds 11.9-14.2 H 759) INR (BEAKER) (test code = 370) 1.38 <=5.90 RECOMMENDED COUMADIN/WARFARIN INR THERAPY RANGESSTANDARD DOSE: 2.0 - 3.0 Includes: PROPHYLAXIS for venous thrombosis, systemic embolization; TREATMENT for venous thrombosis and/or pulmonary embolus.HIGH RISK: Target INR is 2.5-3.5 for patients with mechanical heart valves.[id number] 03:39:10 Test Item Value Reference Range Interpretation Comments PHOSPHORUS (BEAKER) (test code = 2.8 mg/dL 2.3-4.7 604) Account Receivable Associate ID - BSHEPATIC FUNCTION [id number] 03:39:09 Test Item Value Reference Range Interpretation [...] code = 116 U/L 6-55 H 347) Account Receivable Associate ID - [id number] 03:39:09 Test Item Value Reference Range Interpretation Comments MAGNESIUM (BEAKER) (test code = 1.6 mg/dL 1.6-2.6 627) Account Receivable Associate ID - BSPOCT-GLUCOSE [id number] 00:47:31 Test Item Value Reference Range Interpretation Comments POC-GLUCOSE METER 94 mg/dL 70-110 : TESTED A T [facility] 6720 (BEAKER) (test code = JANIE RUBALCAVA [place], 1538) [address]: Account Receivable Associate/Techni skip ID = [id number] for Pee Valladares Prepare Leuko-Red [id number] 23:54:00 Test Item Value Reference Range Interpretation Comments CROSSMATCH (test code = 2264) COMPATIBLE Unit ABO (test code = A Pos 6964780) UNIT NUMBER (test code = [id number] 934-0) Status (test code = 0345859) [facility] Blood Bank Product (test code RED BLOOD CELLS = 2263) PRODUCT CODE (test code = W6268S81 933-2) [facility] Hospital[facility] Leuko-Red [id number] 23:54:00 Test Item Value Reference Range Interpretation Comments CROSSMATCH (test code = 2264) COMPATIBLE Unit ABO (test code = A Pos 6284843) UNIT NUMBER (test code = [id number] 934-0) Status (test code = 8006183) [facility]INCARIZONA [facility]ALT Blood Bank Product (test code RED BLOOD CELLS = 2263) PRODUCT CODE (test code = O5511Q52 933-2) [facility] HospitalPROTHROMBIN TIME/[id number] 22:37:14 Test Item Value Reference Range Interpretation [...] mechanical heart valves.CBC W/PLT COUNT & AUTO [id number] 22:25:34 Test Item Value Reference Range Interpretation [...] PERCENT (BEAKER) (test code = 2801) CALCIUM, [id number] 22:25:05 Test Item Value Reference Range Interpretation Comments CALCIUM IONIZED (BEAKER) (test 1.07 mmol/L 1.12-1.27 L code = 698) PH, BLOOD (BEAKER) (test code = 7.48 1810) [id number] 17:57:12 Test Item Value Reference Range Interpretation Comments FIBRINOGEN LEVEL (BEAKER) (test 313 mg/dl 225-434 code = 658) PROTHROMBIN TIME/[id number] 17:44:31 Test Item Value Reference Range Interpretation [...] WBC 0-0 (test code = 413) POCT-GLUCOSE [id number] 17:30:09 Test Item Value Reference Range Interpretation Comments POC-GLUCOSE METER 109 mg/dL 70-110 : TESTED A T [facility] 6720 (BEAKER) (test code = JANIE RUBALCAVA [place], 1538) 72979: Account Receivable Associate/Techni skip ID = [id number] for Naina Austin CALCIUM, [id number] 17:28:59 Test Item Value Reference Range Interpretation Comments CALCIUM IONIZED (BEAKER) (test 1.07 mmol/L 1.12-1.27 L code = 698) PH, BLOOD (BEAKER) (test code = 7.48 1810) ANTI-NUCLEAR ANTIBODY (HAYDEN)2022-06-10 14:58:10 Test Item Value Reference Range Interpretation Comments ANTI-NUCLEAR ANTIBODY (HAYDEN) (BEAKER) Negative Negative (test code = 418) Test performed by IFA method.Test performed by IFA method.HEPATITIS C PCR, [id number] 14:01:32 Test Item Value Reference Range Interpretation Comments HCV RESULT COMPONENT HCV RNA not detected HCV RNA not detected (BEAKER) (test code = 2699) HEPATITIS B PCR, [id number] 13:33:52 Test Item Value Reference Range Interpretation Comments HBV RESULT COMPONENT HBV DNA not detected HBV DNA not detected (BEAKER) (test code = 2706) [id number] 12:37:58 Test Item Value Reference Range Interpretation Comments FIBRINOGEN LEVEL (BEAKER) (test 280 mg/dl 225-434 code = 658) PROTHROMBIN TIME/[id number] 12:37:40 Test Item Value Reference Range Interpretation Comments PROTIME (BEAKER) (test code = 17.8 seconds 11.9-14.2 H 759) INR (BEAKER) (test code = 370) 1.57 <=5.90 RECOMMENDED COUMADIN/WARFARIN INR THERAPY RANGESSTANDARD DOSE: 2.0 - 3.0 Includes: PROPHYLAXIS for venous thrombosis, systemic embolization; TREATMENT for venous thrombosis and/or pulmonary embolus.HIGH RISK: Target INR is 2.5-3.5 for patients with mechanical heart valves.CMV PCR, [id number] 12:25:04 Test Item Value Reference Range Interpretation Comments CMV VIRAL LOAD - Negative or below See_Comment [Auto mated message] NEGATIVE (BEAKER) the linear range The sy stem which (test code = of the assay generated this 2556) (<300 IU/mL) result transmit erna reference range [...] WBC 0-0 (test code = 413) CALCIUM, [id number] 12:09:13 Test Item Value Reference Range Interpretation Comments CALCIUM IONIZED (BEAKER) (test 1.05 mmol/L 1.12-1.27 L code = 698) PH, BLOOD (BEAKER) (test code = 7.46 5564) POCT-GLUCOSE [id number] 11:23:12 Test Item Value Reference Range Interpretation Comments POC-GLUCOSE METER 92 mg/dL 70-110 : TESTED A T [facility] 6720 ([facility]) (test code = JANIE RUBALCAVA MD, 1538) [address]79: Account Receivable Associate/Techni skip ID = [id number] for ADRIEN C (V), ANNMARIE EBV ANTIBODY, [id number] 10:34:21 Test Item Value Reference Range Interpretation Comments ANDREW SUAREZ VIRAL CAPSID Negative Negative, Equivocal ANTIGEN IGM (BEAKER) (test code = 3418) Andrew Suarez Viral Capsid Antigen IgM Result Interpretation: </= 0.8 Al Negative 0.9-1.0 Al Equivocal >/= 1.1 Al PositiveVANCOMYCIN LEVEL, TROUGH 2022-06-10 09:41:44 Test Item Value Reference Range Interpretation Comments VANCOMYCIN TROUGH (BEAKER) (test 16.1 ug/mL 10.0-20.0 code = 522) Account Receivable Associate ID - EUUWLZWPKGCYGHL3698-46-08 06:41:29 Test Item Value Reference Range Interpretation Comments FIBRINOGEN LEVEL (BEAKER) (test 260 mg/dl 225-434 code = 658) PROTHROMBIN TIME/[id number] 06:41:06 Test Item Value Reference Range Interpretation [...] WBC 0-0 (test code = 413) CALCIUM, [id number] 06:04:52 Test Item Value Reference Range Interpretation Comments CALCIUM IONIZED (BEAKER) (test 1.12 mmol/L 1.12-1.27 code = 698) PH, BLOOD (BEAKER) (test code = 7.48 1810) POCT-GLUCOSE [id number] 05:43:21 Test Item Value Reference Range Interpretation Comments POC-GLUCOSE METER 91 mg/dL 70-110 : TESTED A T [facility] 6720 (BEAKER) (test code = JANIE RUBALCAVA MD, 1538) 24025: Account Receivable Associate/Techni skip ID = [id number] for MSIB I, MNCEDISI BASIC METABOLIC [id number] 03:27:46 Test Item Value Reference Range Interpretation [...] not appl icable for dialysis patien ts Account Receivable Associate ID - MARCOSpecimen slightly ictericHEPATIC FUNCTION [id number] 03:26:54 Test Item Value Reference Range Interpretation [...] code = 153 U/L 6-55 H 347) Account Receivable Associate ID - SUOSpecimen slightly qhprdhhEHKQSGWHG5704-24-33 03:26:53 Test Item Value Reference Range Interpretation Comments MAGNESIUM (BEAKER) (test code = 1.6 mg/dL 1.6-2.6 627) Account Receivable Associate ID - ZYPMCEVBXJMBCJO1231-17-41 03:26:53 Test Item Value Reference Range Interpretation Comments PHOSPHORUS (BEAKER) (test code = 2.0 mg/dL 2.3-4.7 L 604) Account Receivable Associate ID - MARCOCALCIUM, [id number] 01:25:13 Test Item Value Reference Range Interpretation Comments CALCIUM IONIZED (BEAKER) (test 1.04 mmol/L 1.12-1.27 L code = 698) PH, BLOOD (BEAKER) (test code = 7.48 1810) [id number] 01:24:42 Test Item Value Reference Range Interpretation Comments FIBRINOGEN LEVEL (BEAKER) (test 257 mg/dl 225-434 code = 658) PROTHROMBIN TIME/[id number] 01:23:57 Test Item Value Reference Range Interpretation [...] CELLS (BEAKER) (test code = 413) Prepare [id number] 23:54:00 Test Item Value Reference Range Interpretation Comments Unit ABO (test code = A Pos 1210180) UNIT NUMBER (test code = [id number] 934-0) Status (test code = 4508553) TX_TIMEINCHART Blood Bank Product (test code CRYOPRECIPITATE = 2263) PRODUCT CODE (test code = C3209Y65 933-2) [facility] HospitalPrelittle [facility] [id number] 23:54:00 Test Item Value Reference Range Interpretation Comments Unit ABO (test code = 5307002) A Neg UNIT NUMBER (test code = [id number] 934-0) Status (test code = 9391938) TX_TIMEINCHART Blood Bank Product (test code FFP = 2263) PRODUCT CODE (test code = C0609Q77 933-2) [facility] HospitalPrestaten [facility] [id number] 23:54:00 Test Item Value Reference Range Interpretation Comments Unit ABO (test code = A Pos 3627506) UNIT NUMBER (test code = [id number] 934-0) Status (test code = 9663248) TX_TIMEINCHART Blood Bank Product (test code CRYOPRECIPITATE = 2263) PRODUCT CODE (test code = I6404F40 933-2) [facility] HospitalPrepare [id number] 23:54:00 Test Item Value Reference Range Interpretation Comments Unit ABO (test code = 5947749) A Neg UNIT NUMBER (test code = [id number] 934-0) Status (test code = 3320071) TX_TIMEINCHART Blood Bank Product (test code FFP = 2263) PRODUCT CODE (test code = O3858B61 933-2) [facility] HospitalPOCT-GLUCOSE [id number] 23:42:59 Test Item Value Reference Range Interpretation Comments POC-GLUCOSE METER 91 mg/dL 70-110 : TESTED A T [facility] 6720 (BEAKER) (test code = JANIE [place], 1538) [address]: Account Receivable Associate/Techni skip ID = [id number] for MSIB I, MNCEDISI CALCIUM, [id number] 18:10:25 Test Item Value Reference Range Interpretation Comments CALCIUM IONIZED (BEAKER) (test 1.11 mmol/L 1.12-1.27 L code = 698) PH, BLOOD (BEAKER) (test code = 7.48 1810) [id number] 17:48:32 Test Item Value Reference Range Interpretation Comments FIBRINOGEN LEVEL (BEAKER) (test 179 mg/dl 225-434 L code = 658) PROTHROMBIN TIME/[id number] 17:48:12 Test Item Value Reference Range Interpretation [...] WBC 0-0 (test code = 413) POCT-GLUCOSE [id number] 17:29:37 Test Item Value Reference Range Interpretation Comments POC-GLUCOSE METER 95 mg/dL 70-110 : [facility] (BEAKER) (test code = [facility] Sadi [facility], 1538) [address]: Account Receivable Associate/Techni skip ID = [id number] for Joyce Hilario [id number] 13:31:18 Test Item Value Reference Range Interpretation Comments PROCALCITONIN (BEAKER) (test code 18.38 ng/mL <0.05 = 3036) SEPSIS RISK (ng/mL)Low: 0.05-0.50Intermediate: 0.51-2.00High: >=2.01 [id number] 12:31:16 Test Item Value Reference Range Interpretation Comments FIBRINOGEN LEVEL (BEAKER) (test 178 mg/dl 225-434 L code = 658) POCT-GLUCOSE [id number] 12:29:44 Test Item Value Reference Range Interpretation Comments POC-GLUCOSE METER 116 mg/dL 70-110 H : TESTED A T [facility] 6720 (BEAKER) (test code [facility], = 1538) 46[address]: Account Receivable Associate/Techni skip ID = [id number] for Amanda Giles CALCIUM, [id number] 12:27:55 Test Item Value Reference Range Interpretation Comments CALCIUM IONIZED (BEAKER) (test 1.10 mmol/L 1.12-1.27 L code = 698) PH, BLOOD (BEAKER) (test code = 7.48 1810) PROTHROMBIN [id number] 12:25:56 Test Item Value Reference Range Interpretation [...] 0-0 (test code = 413) BASIC METABOLIC [id number] 09:00:33 Test Item Value Reference Range Interpretation [...] not appl icable for dialysis patien ts Account Receivable Associate ID - MARCOSpecimen slightly ptljbqaRFSEBBHEJ9407-68-09 08:56:11 Test Item Value Reference Range Interpretation Comments MAGNESIUM (BEAKER) (test code = 2.0 mg/dL 1.6-2.6 627) Account Receivable Associate ID - MARCOLactic Acid, Rocmyqpz1500-15-73 08:52:09 Test Item Value Reference Range Interpretation Comments Lactate, Art (test code 0.9 mmol/L 0.5-2.2 = 2874) NING (test code = NING) Account Receivable Associate ID - MARCOSpecimen slightly icteric Lab Interpretation Normal (test code = 19847-2) [facility], [id number] 08:52:09 Test Item Value Reference Range Interpretation Comments Lactate, Art (test code 0.9 mmol/L 0.5-2.2 = 2874) NING (test code = NING) Account Receivable Associate ID - Iam slightly icteric Lab Interpretation Normal (test code = 47256-2) [facility], [id number] 08:52:09 Test Item Value Reference Range Interpretation Comments LACTATE BLOOD ARTERIAL (2) 0.9 mmol/L 0.5-2.2 (BEAKER) (test code = 2874) Account Receivable Associate ID - Iam slightly omrfmxeKROQOVAKJW8804-55-94 08:37:49 Test Item Value Reference Range Interpretation Comments FIBRINOGEN LEVEL (BEAKER) (test 174 mg/dl 225-434 L code = 658) PROTHROMBIN TIME/[id number] 08:37:17 Test Item Value Reference Range Interpretation [...] H (test code = 413) Blood gas, [id number] 08:26:39 Test Item Value Reference Range Interpretation [...] 21 Lab Interpretation Abnormal (test code = 04587-0) [facility], [id number] 08:26:39 Test Item Value Reference Range Interpretation [...] 21 Lab Interpretation Abnormal (test code = 06255-4) [facility], [id number] 08:26:39 Test Item Value Reference Range Interpretation [...] (BEAKER) (test code = 1819) 21.0 CALCIUM, [id number] 08:25:08 Test Item Value Reference Range Interpretation Comments CALCIUM IONIZED (BEAKER) (test 1.13 mmol/L 1.12-1.27 code = 698) PH, BLOOD (BEAKER) (test code = 7.50 1810) RAD, CHEST, 1 VIEW, NON [id number] 07:18:00Reason for exam:->Retracted R IJ CVC. Please, re-evaluate placementShould this be performed at the bedside?->YesIMELDA [facility] : 1985 Sex: [...] Stable surgical changes. Additional findings: None. Signed: Kevin Schofield MDR[place] Verified Date/Time: 06/09/2022 07:18:03 Urinalysis w/Microscopic + Reflex to [id number] 06:11:15 Test Item Value Reference Range Interpretation Comments Color, UA (test code Yellow = 5778-6) Clarity, UA (test Clear code = 5767-9) Specific [place], UA 1.020 1.001-1.035 (test code = 5811-5) pH, UA (test code = 6.5 5.0-8.0 5803-2) Protein, UA (test Negative negative code = 56534-0) Glucose, UA (test Negative Negative code = 365) Ketones, UA (test Negative negative code = 2514-8) Bilirubin, UA (test Negative Negative code = 65237-5) Blood, UA (test code Small Negative A = 83103-7) Nitrite, UA (test Negative Negative code = 5802-4) Leukocytes, UA (test Negative Negative code = 5799-2) Urobilinogen, UA 2.0 (test code = 04882-8) RBC, UA (test code = 4 See_Comment [Autom ated 78909-9) message] The system which generated this result [...] . Bacteria, UA (test Rare code = 19966-7) Squam Epithel, UA See_Comment [Automate d (test code = 04960-4) messag e] The system which generated this result transmit erna reference range : /HPF. The reference range was not used to interpret this result as normal/abnormal . Hyaline Casts, UA 3 See_Comment [Automate d (test code = 56372-3) messag e] The system which generated this result transmit erna reference range : /LPF. The reference range was not used to interpret this result as normal/abnormal . Specimen Source (test code = 2795) NING (test code = NING) Account Receivable Associate ID - tech Lab Interpretation Abnormal (test code = 20019-6) [facility] + Reflex to Culture 2022-06-09 06:11:15 Test Item Value Reference Range Interpretation Comments Color, UA (test code Yellow = 5778-6) Clarity, UA (test Clear code = 5767-9) Specific [place], UA 1.020 1.001-1.035 (test code = 5811-5) pH, UA (test code = 6.5 5.0-8.0 5803-2) Protein, UA (test Negative negative code = 86759-1) Glucose, UA (test Negative Negative code = 365) Ketones, UA (test Negative negative code = 2514-8) Bilirubin, UA (test Negative Negative code = 29328-9) Blood, UA (test code Small Negative A = 31012-0) Nitrite, UA (test Negative Negative code = 5802-4) Leukocytes, UA (test Negative Negative code = 5799-2) Urobilinogen, UA 2.0 (test code = 86635-5) RBC, UA (test code = 4 See_Comment [Autom ated 20815-4) message] The system which generated this result [...] . Bacteria, UA (test Rare code = 45595-1) Squam Epithel, UA See_Comment [Automate d (test code = 54149-0) messag e] The system which generated this result transmit erna reference range : /HPF. The reference range was not used to interpret this result as normal/abnormal . Hyaline Casts, UA 3 See_Comment [Automate d (test code = 00263-2) messag e] The system which generated this result transmit erna reference range : /LPF. The reference range was not used to interpret this result as normal/abnormal . Specimen Source (test code = 2795) NING (test code = NING) Account Receivable Associate ID - tech Lab Interpretation Abnormal (test code = 72150-2) [facility]/ REFLEX URINE [id number] 06:11:15 Test Item Value Reference Range Interpretation [...] /LPF 514) SOURCE(BEAKER) (test code = 2795) Account Receivable Associate ID - techRapid drug screen, dkewv0522-26-64 05:42:00 Test Item Value Reference Range Interpretation Comments Barbiturate Screen Negative Negative (test code = 10868-0) Benzodiazepine Screen Positive Negative A (test code = 00301-4) Cocaine (Metab.) Positive Negative A Screen (test code = 3397-7) Methadone Screen (test Negative Negative code = 95306-6) Opiate Screen (test Negative Negative code = 99154-8) Cannabinoid Screen Negative Negative (test code = 61276-3) Amph/Methamph Screen Negative Negative (test code = 80868-5) Phencyclidine Screen Negative Negative (test code = 09156-6) pH, UA (test code = 6.5 5.0-8.0 5803-2) NING (test code = NING) DRUG CUTOFF CONC.Cocaine 300 ng/mL Cannabinoid 50 ng/mLBenzodiazepine 200 ng/mLBarbiturate 200 ng/mLPhencyclidine 25 ng/mLOpiate 300 ng/mLMethadone 300 ng/mLAmphetamine/ 1000 ng/mL Methamphetamine This assay provides an unconfirmed qualitative test result for the clinical management of patients in emergency situations. Chain of custody not maintained. Some pszp-mgy-oyztsai medications, as well as adulterants, may cause inaccurate results. Clinical correlation should be applied. A more comprehensive drug screen or confirmation of a detected drug may be performed upon request.Account Receivable Associate ID - BS Lab Interpretation Abnormal (test code = 97223-5) [facility], [id number] 05:42:00 Test Item Value Reference Range Interpretation Comments Barbiturate Screen Negative Negative (test code = 76553-1) Benzodiazepine Screen Positive Negative A (test code = 85184-1) Cocaine (Metab.) Positive Negative A Screen (test code = 3397-7) Methadone Screen (test Negative Negative code = 68647-4) Opiate Screen (test Negative Negative code = 65330-4) Cannabinoid Screen Negative Negative (test code = 87279-9) Amph/Methamph Screen Negative Negative (test code = 06130-3) Phencyclidine Screen Negative Negative (test code = 57112-7) pH, UA (test code = 6.5 5.0-8.0 5803-2) NING (test code = NING) DRUG CUTOFF CONC.Cocaine 300 ng/mL Cannabinoid 50 ng/mLBenzodiazepine 200 ng/mLBarbiturate 200 ng/mLPhencyclidine 25 ng/mLOpiate 300 ng/mLMethadone 300 ng/mLAmphetamine/ 1000 ng/mL Methamphetamine This assay provides an unconfirmed qualitative test result for the clinical management of patients in emergency situations. Chain of custody not maintained. Some lbdu-jsb-ffvtxxy medications, as well as adulterants, may cause inaccurate results. Clinical correlation should be applied. A more comprehensive drug screen or confirmation of a detected drug may be performed upon request.Account Receivable Associate ID - BS Lab Interpretation Abnormal (test code = 66959-6) [facility] S[facility]EN, [id number] 05:42:00 Test Item Value Reference Range Interpretation [...] situations. Chain of custody not maintained. Some nfao-qbs-bkeuagm medications, as well as adulterants, may cause inaccurate results. Clinical correlation should be applied. A more comprehensive drug screen or confirmation of a detected drug may be performed upon request.Account Receivable Associate ID - BSBLOOD GAS, ARTERIAL 2022-06-09 05:16:29 [...] (BEAKER) (test code = 1819) 21.0 CALCIUM, [id number] 05:14:38 Test Item Value Reference Range Interpretation Comments CALCIUM IONIZED (BEAKER) (test 1.21 mmol/L 1.12-1.27 code = 698) PH, BLOOD (BEAKER) (test code = 7.47 1810) BASIC METABOLIC [id number] 05:08:20 Test Item Value Reference Range Interpretation [...] (test code = 697) EGFR (BEAKER) 112 Interpretati on of eGFR (test code = [...] not appl icable for dialysis patien ts Account Receivable Associate ID - Iam slightly ictericHEPATIC FUNCTION [id number] 05:08:20 Test Item Value Reference Range Interpretation [...] code = 121 U/L 6-55 H 347) Account Receivable Associate ID - Bayronn slightly eiakvxuLSNSZEMXL0616-61-83 05:08:19 Test Item Value Reference Range Interpretation Comments MAGNESIUM (BEAKER) (test code = 2.4 mg/dL 1.6-2.6 627) Account Receivable Associate ID - IBVNVCZXWNGHADT6040-11-42 05:08:19 Test Item Value Reference Range Interpretation Comments PHOSPHORUS (BEAKER) (test code = 2.8 mg/dL 2.3-4.7 604) Account Receivable Associate ID - MARCOTHROMBOELASTOGRAPH (TEG)2022-06-09 05:00:32 Test Item [...] % 0.0-5.0 code = 1414) LACTIC ACID, [id number] 04:54:00 Test Item Value Reference Range Interpretation Comments LACTATE BLOOD ARTERIAL (2) 0.9 mmol/L 0.5-2.2 (BEAKER) (test code = 2874) Account Receivable Associate ID - BSSpecimen slightly qgaatoqDRINVUGBQF8535-61-62 04:50:13 Test Item Value Reference Range Interpretation Comments FIBRINOGEN LEVEL (BEAKER) (test 167 mg/dl 225-434 L code = 658) PROTHROMBIN TIME/[id number] 04:49:50 Test Item Value Reference Range Interpretation [...] WBC 0-0 (test code = 413) VITAMIN [id number] 02:35:55 Test Item Value Reference Range Interpretation Comments VITAMIN B12 (BEAKER) (test code = > pg/mL 213-816 H 774) Account Receivable Associate ID - MARCOBASIC METABOLIC [id number] 01:39:15 Test Item Value Reference Range Interpretation [...] not appl icable for dialysis patien ts Account Receivable Associate ID - BSSpecimen slightly plgjxbjIHYLXPEOE5813-64-76 01:23:08 Test Item Value Reference Range Interpretation Comments MAGNESIUM (BEAKER) (test code = 1.5 mg/dL 1.6-2.6 L 627) Account Receivable Associate ID - BSLACTIC ACID, [id number] 01:17:49 Test Item Value Reference Range Interpretation Comments LACTATE BLOOD ARTERIAL (2) 2.3 mmol/L 0.5-2.2 H (BEAKER) (test code = 2874) Account Receivable Associate ID - BSSpecimen slightly icteric(CELLAVISION MANUAL DIFF)2022-06-09 [...] CONCENTRATION Decreased (CELLAVISION)(BEAKER) (test code = 3438) Account Receivable Associate ID - Carine Bobo comments: Slide comments:CBC W/PLT COUNT & AUTO [id number] 01:10:12 Test Item Value Reference Range Interpretation [...] H CELLS (BEAKER) (test code = 413) [id number] 01:04:07 Test Item Value Reference Range Interpretation Comments FIBRINOGEN LEVEL (BEAKER) (test 151 mg/dl 225-434 L code = 658) CALCIUM, [id number] 00:40:04 Test Item Value Reference Range Interpretation Comments CALCIUM IONIZED (BEAKER) (test 1.06 mmol/L 1.12-1.27 L code = 698) PH, BLOOD (BEAKER) (test code = 7.45 1810) BLOOD GAS, [id number] 00:39:58 Test Item Value Reference Range Interpretation [...] 1819) 21.0 RAD, CHEST, 1 VIEW, NON [id number] 00:26:00Reason for exam:->Left IJ central line placementShould this be performed at the bedside?->Yes [facility] : 1985 Sex: FFINAL [...] complication post left IJ line placement. Signed: Flora Marinelli Verified Date/Time: 06/09/2022 00:26:48 BLOOD GAS, [id number] 22:28:00 Test Item Value Reference Range Interpretation [...] (test 1.0 % 0.0-5.0 code = 1414) [id number] 21:35:45 Test Item Value Reference Range Interpretation Comments FIBRINOGEN LEVEL (BEAKER) (test 149 mg/dl 225-434 L code = 658) [id number] 21:28:48 Test Item Value Reference Range Interpretation Comments FERRITIN (BEAKER) (test code = 223.31 ng/mL 5.00-275.00 361) Account Receivable Associate ID - MMLACTIC ACID, [id number] 21:17:43 Test Item Value Reference Range Interpretation Comments LACTATE BLOOD ARTERIAL (2) 9.0 mmol/L 0.5-2.2 HH (BEAKER) (test code = 2874) Account Receivable Associate ID - GUAJOQVSZBJG6839-36-09 21:17:07 Test Item Value Reference Range Interpretation Comments PHOSPHORUS (BEAKER) (test code = 3.8 mg/dL 2.3-4.7 604) Account Receivable Associate ID - [id number] 21:17:06 Test Item Value Reference Range Interpretation Comments MAGNESIUM (BEAKER) (test code = 1.9 mg/dL 1.6-2.6 627) Account Receivable Associate ID - BSBLOOD GAS, [id number] 21:12:20 Test Item Value Reference Range Interpretation [...] (test code = 1819) 21.0 BASIC METABOLIC [id number] 21:11:38 Test Item Value Reference Range Interpretation [...] not appl icable for dialysis patien ts Account Receivable Associate ID - [id number] 21:10:06 Test Item Value Reference Range Interpretation Comments PARTIAL THROMBOPLASTIN TIME 32.3 seconds 22.5-36.0 (BEAKER) (test code = 760) PROTHROMBIN TIME/[id number] 21:09:27 Test Item Value Reference Range Interpretation Comments PROTIME (BEAKER) (test code = 23.4 seconds 11.9-14.2 H 759) INR (BEAKER) (test code = 370) 2.23 <=5.90 RECOMMENDED COUMADIN/WARFARIN INR THERAPY RANGESSTANDARD DOSE: 2.0 - 3.0 Includes: PROPHYLAXIS for venous thrombosis, systemic embolization; TREATMENT for venous thrombosis and/or pulmonary embolus.HIGH RISK: Target INR is 2.5-3.5 for patients with mechanical heart valves.CALCIUM, [id number] 21:01:33 Test Item Value Reference Range Interpretation Comments CALCIUM IONIZED (BEAKER) (test 0.93 mmol/L 1.12-1.27 L code = 698) PH, BLOOD (BEAKER) (test code = 7.48 1810) LACTATE DEHYDROGENASE (LDH)2022-06-08 20:52:07 Test Item Value Reference Range Interpretation Comments LACTATE DEHYDROGENASE 300 U/L 125-220 H Specim en slightly (BEAKER) (test code = hemoly zed 635) Account Receivable Associate ID - BSIRON, TIBC, % SAT. (WITHOUT FERRITIN)2022-06-08 20:50:25 Test Item Value Reference Range Interpretation Comments IRON (BEAKER) (test code = 547) 120.0 ug/dL 40.0-160.0 TOTAL IRON BINDING CAPACITY 121 ug/dL 250-450 L (BEAKER) (test code = 769) IRON % SATURATION (2) (BEAKER) 99 % 20-55 H (test code = 2590) Account Receivable Associate ID - BSRETICULOCYTE [id number] 20:36:25 Test Item Value Reference Range Interpretation Comments RETICULOCYTE COUNT PCT (BEAKER) (test 1.3 % 0.5-1.7 code = 575) Account Receivable Associate ID - [id number] ANTIGEN WITH HIV-1/2 [id number] 20:11:17 Test Item Value Reference Range Interpretation [...] 4.1 % 0.0-5.0 code = 1414) Screen, [id number] 18:29:14 Test Item Value Reference Range Interpretation Comments Preg Test, Ur (test code = 2112-1) Negative Negative Lab Interpretation (test code = Normal 50150-1) [facility]regnancy Screen, [id number] 18:29:14 Test Item Value Reference Range Interpretation Comments Preg Test, Ur (test code = 2112-1) Negative Negative Lab Interpretation (test code = Normal 76587-2) [facility] HospitalPREGNANCY SCREEN, [id number] 18:29:14 Test Item Value Reference Range Interpretation Comments TEST URINE (BEAKER) (test Negative Negative code = 583) BASIC METABOLIC [id number] 18:17:25 Test Item Value Reference Range Interpretation [...] not appl icable for dialysis patien ts Account Receivable Associate ID - BSCALCIUM, [id number] 18:05:08 Test Item Value Reference Range Interpretation Comments CALCIUM IONIZED (BEAKER) (test 0.71 mmol/L 1.12-1.27 LL code = 698) PH, BLOOD (BEAKER) (test code = 7.46 1810) CBC W/PLT COUNT & AUTO [id number] 18:04:39 Test Item Value Reference Range Interpretation [...] PERCENT (BEAKER) (test code = 2801) T4, [id number] 18:01:04 Test Item Value Reference Range Interpretation Comments FREE T4 (BEAKER) (test code = 655) 1.36 ng/dL 0.70-1.48 Account Receivable Associate ID - MMLACTIC ACID, [id number] 17:58:08 Test Item Value Reference Range Interpretation Comments LACTATE BLOOD 1.7 mmol/L 0.5-2.2 Specimen sligh tly ARTERIAL (2) (BEAKER) hemoly zed (test code = 2874) Account Receivable Associate ID - AHC-[id number] 17:55:47 Test Item Value Reference Range Interpretation [...] exclusion of thrombosis is within 95-100% range. PT/[id number] 17:53:22 Test Item Value Reference Range Interpretation [...] is 2.5-3.5 for patients with mechanical heart valves.[id number] 17:53:09 Test Item Value Reference Range Interpretation Comments FIBRINOGEN LEVEL (BEAKER) (test 243 mg/dl 225-434 code = 658) POC [id number] 17:40:15 Test Item Value Reference Range Interpretation Comments POC-Glucose (test code = 187 mg/dL 70-110 H : T ESTED AT [facility] 1855) [address] [facility], [address]: Account Receivable Associate/Techni skip ID = [id number] for ANGELINA MOURA Lab Interpretation (test Abnormal code = 81367-8) [facility] Bqrysgw8423-30-77 17:40:15 Test Item Value Reference Range Interpretation Comments POC-Glucose (test code = 187 mg/dL 70-110 H : T ESTED AT [facility] 1855) [address] [facility], [address]70 30: Account Receivable Associate/Techni skip ID = [id number] for ANGELINA MOURA Lab Interpretation (test Abnormal code = 05004-0) [facility]-[id number] 17:40:15 Test Item Value Reference Range Interpretation Comments POC-GLUCOSE (BEAKER) 187 mg/dL 70-110 H : TESTE D AT [facility] 6720 (test code = 1855) [facility], [address]: Account Receivable Associate/Techni skip ID = [id number] for ANGELINA MOURA BCMM-[id number] 17:40:14 Test Item Value Reference Range Interpretation Comments POC-Hemoglobin (test code 11.9 g/dL 12.0-15.0 L : TESTED AT [facility] = 1856) [address] [facility], [address]: Account Receivable Associate/Techni skip ID = [id number] for ANGELINA MOURA Lab Interpretation (test Abnormal code = 19300-0) [facility] HospitalBmrwytNOSS-QSQDNDYQYF8245-05-01 17:40:14 Test Item Value Reference Range Interpretation Comments POC-Hematocrit (test code 35 % 36-45 L : = 1857) Account Receivable Associate/Techni skip ID = [id number] for ANGELINA MOURA Lab Interpretation (test Abnormal code = 68454-2) [facility] HospitalVayjolUDIB-[id number] 17:40:14 Test Item Value Reference Range Interpretation Comments POC-Hemoglobin (test code 11.9 g/dL 12.0-15.0 L : TESTED AT [facility] = 1856) [address] [facility], [address]: Account Receivable Associate/Techni skip ID = [id number] for ANGELINA MOURA Lab Interpretation (test Abnormal code = 98374-9) [facility] HospitalUnrhwqDZTQ-QOJVBNFWPR9807-51-01 17:40:14 Test Item Value Reference Range Interpretation Comments POC-Hematocrit (test code 35 % 36-45 L : = 1857) Account Receivable Associate/Techni skip ID = [id number] for ANGELINA MOURA Lab Interpretation (test Abnormal code = 93443-3) [facility] HospitalYzzapcAQAL-[id number] 17:40:14 Test Item Value Reference Range Interpretation Comments POC-HEMOGLOBIN 11.9 g/dL 12.0-15.0 L : TESTED AT [facility] 67[address] (BEAKER) (test code [facility], = 1856) [address]: Account Receivable Associate/Techni skip ID = [id number] for ANGELINA MOURA NEPT-[id number] 17:40:14 Test Item Value Reference Range Interpretation Comments POC-HEMATOCRIT 35 % 36-45 L : Account Receivable Associate/Te chnician ID = (BEAKER) (test code = 152822 for ANGELINA MOURA 1857) POC-Blood gases, [id number] 17:40:13 Test Item Value Reference Range Interpretation [...] tomated message] code = 1838) The system Song[employer] h generated this result transmit erna reference range : 80.0 - 90.0 mm Hg. The reference r yolanda was not used to interpret this result as normal/abnormal . SO2, Arterial-POC (test 98.0 % 96.0-97.0 H code = 1839) HCO3, Arterilal-POC 18.2 meq/L 21.0-29.0 L (test code = 1840) BE, Arterial-POC (test -6.0 meq/L -2.0-3.0 L : ZOILA ERNA AT [facility] code = 1841) [address] [address], [address]: Account Receivable Associate/Techni skip ID = [id number] for ANGELINA MOURA Lab Interpretation Abnormal (test code = 08183-9) [facility]-Tvkvmkrpm8865-77-94 17:40:13 Test Item Value Reference Range Interpretation Comments POC-Potassium (test code 3.9 meq/L 3.6-5.5 : T ESTED AT [facility] = 1540) [address] [place] [address], [address]: Account Receivable Associate/Techni skip ID = [id number] for ANGELINA MOURA Lab Interpretation (test Normal code = 20489-7) [facility]-Kuyzbf9593-87-22 17:40:13 Test Item Value Reference Range Interpretation Comments POC-Sodium (test code = 134 meq/L 135-148 L : TE STED AT [facility] 1542) [address] [place] [address], [address]: Account Receivable Associate/Techni skip ID = [id number] for ANGELINA MOURA Lab Interpretation (test Abnormal code = 32640-6) [facility]-Blood gases, chocifut4294-34-64 17:40:13 Test Item Value Reference Range Interpretation [...] tomated message] code = 1838) The system [employer] h generated this result transmit erna reference range : 80.0 - 90.0 mm Hg. The reference r yolanda was not used to interpret this result as normal/abnormal . SO2, Arterial-POC (test 98.0 % 96.0-97.0 H code = 1839) HCO3, Arterilal-POC 18.2 meq/L 21.0-29.0 L (test code = 1840) BE, Arterial-POC (test -6.0 meq/L -2.0-3.0 L : ZOILA ERNA AT [facility] code = 1841) [address] [place], [address]: Account Receivable Associate/Techni skip ID = [id number] for ZENY ANGELINA Lab Interpretation Abnormal (test code = 28268-6) [facility]-Fjdsalyer2482-38-03 17:40:13 Test Item Value Reference Range Interpretation Comments POC-Potassium (test code 3.9 meq/L 3.6-5.5 : T YAMILET AT [facility] = 1540) [address] [facility] [place], [address]: Account Receivable Associate/Techni skip ID = [id number] for ZENY ANGELINA Lab Interpretation (test Normal code = 24892-7) [facility]-Kinofq1452-74-59 17:40:13 Test Item Value Reference Range Interpretation Comments POC-Sodium (test code = 134 meq/L 135-148 L : TE STED AT [facility] 1542) [address] [facility], [address]: Account Receivable Associate/Techni skip ID = [id number] for ANGELINA MOURA Lab Interpretation (test Abnormal code = 41403-7) [facility] HospitalPOCT-BLOOD GASES, [id number] 17:40:13 Test Item Value Reference Range Interpretation [...] TESTED AT [facility] [address] ARTERIAL-POC [facility], (BEAKER) (test [address]: code = 1841) Account Receivable Associate/Techni skip ID = [id number] for ANGELINA MOURA ZMEM-[id number] 17:40:13 Test Item Value Reference Range Interpretation Comments POC-SODIUM (BEAKER) 134 meq/L 135-148 L : TESTED AT [facility] 6720 (test code = 1542) [facility], [address]: Account Receivable Associate/Techni skip ID = [id number] for ANGELINA MOURA [id number]-[id number] 17:40:13 Test Item Value Reference Range Interpretation Comments POC-POTASSIUM 3.9 meq/L 3.6-5.5 : TESTED AT [facility] 6720 (BEAKER) (test code [facility], = 1540) [address]: Account Receivable Associate/Techni skip ID = [id number] for ANGELINA MOURA U/S, DUPLEX, [id number] 17:35:00Reason for exam:->please evaluate hepatic vasculature [facility] CENTERName: YULIYA PHILIP : 1985 Sex: FFINAL [...] Rubio Verified Date/Time: 06/08/2022 17:35:07 Reading Location: [address] Body Reading Room HEPATITIS B SURFACE [id number] 17:32:15 Test Item Value Reference Range Interpretation Comments HEPATITIS B SURFACE ANTIBODY < mIU/mL <8.0 (BEAKER) (test code = 647) Account Receivable Associate ID - BSHEPATITIS B CORE ANTIBODY, [id number] 17:27:01 Test Item Value Reference Range Interpretation Comments HEPATITIS B CORE TOTAL ANTIBODY Nonreactive Nonreactive (BEAKER) (test code = 497) Account Receivable Associate ID - BSHEPATITIS A ANTIBODY, [id number] 17:27:01 Test Item Value Reference Range Interpretation Comments HEPATITIS A IGG ANTIBODY (BEAKER) Nonreactive Nonreactive (test code = 2797) Account Receivable Associate ID - BSHEPATITIS A ANTIBODY, [id number] 17:27:00 Test Item Value Reference Range Interpretation Comments HEPATITIS A IGM ANTIBODY (BEAKER) Nonreactive Nonreactive (test code = 498) Account Receivable Associate ID - [id number] 17:16:00 Test Item Value Reference Range Interpretation Comments POTASSIUM (BEAKER) (test code = 3.0 meq/L 3.5-5.1 L 379) Account Receivable Associate ID - [id number] 17:16:00 Test Item Value Reference Range Interpretation Comments SODIUM (BEAKER) (test code = 381) 134 meq/L 136-145 L Account Receivable Associate ID - [id number] 17:16:00 Test Item Value Reference Range Interpretation Comments GLUCOSE RANDOM (BEAKER) (test code 107 mg/dL 70-105 H = 652) Account Receivable Associate ID - MMSALICYLATE [id number] 17:04:01 Test Item Value Reference Range Interpretation Comments SALICYLATE LEVEL (BEAKER) (test code < mg/dL 15.0-30.0 L = 764) Therapeutic Range: 15.0-30.0 mg/dLToxic: >30.0 mg/dL Lethal: >70.0 mg/dLOperator ID - [id number] 16:50:51 Test Item Value Reference Range Interpretation Comments CORTISOL, TOTAL (BEAKER) (test 13.4 ug/dL 3.7-19.4 code = 2755) Account Receivable Associate ID - [id number]-[id number] 16:35:51 Test Item Value Reference Range Interpretation Comments ALPHA-1 ANTITRYPSIN (BEAKER) 282.30 mg/dL 90.00-200.00 H (test code = 502) Account Receivable Associate ID - BSACETAMINOPHEN [id number] 16:30:13 Test Item Value Reference Range Interpretation Comments ACETAMINOPHEN LEVEL (BEAKER) (test < ug/mL 10.0-30.0 L code = 344) Therapeutic Range: 10.0-30.0 g/mLToxic Levels: >200.0 g/mLOperator ID - MM TSH/FREE T4 IF [id number] 16:15:28 Test Item Value Reference Range Interpretation Comments THYROID STIMULATING HORMONE 0.121 uIU/mL 0.350-4.940 L (BEAKER) (test code = 772) Account Receivable Associate ID - BSHEPATITIS C [id number] 16:10:06 Test Item Value Reference Range Interpretation Comments HEPATITIS C ANTIBODY (BEAKER) Nonreactive Nonreactive (test code = 367) Account Receivable Associate ID - BSHEPATITIS B SURFACE [id number] 16:10:05 Test Item Value Reference Range Interpretation Comments HEPATITIS B SURFACE ANTIGEN (2) Nonreactive Nonreactive (BEAKER) (test code = 2585) Specimen is considered negative for HBsAg.[id number] 15:13:41 Test Item Value Reference Range Interpretation Comments AMMONIA (BEAKER) (test code = 348) 44 mol/L 18-72 Account Receivable Associate ID - MMCREATINE KINASE (CK)2022-06-08 15:03:37 Test Item Value Reference Range Interpretation Comments CREATINE KINASE TOTAL (BEAKER) (test 42 U/L 29-200 code = 380) Account Receivable Associate ID - MMU/S, ABDOMINAL, [id number] 14:56:00Reason for exam:- >eval RUQ and kidneys [facility] : 1985 Sex: FFINAL [...] Rubio MDReport Verified Date/Time: 06/08/2022 14:56:28 ReadingLocation: [facility] B1 C013[facility] Body Reading Room VITAMIN [id number] 14:03:03 Test Item Value Reference Range Interpretation Comments VITAMIN B12 (BEAKER) (test code = > pg/mL 213-816 H 774) Account Receivable Associate ID - MMCOMPREHENSIVE METABOLIC [id number] 13:41:11 Test Item Value Reference Range Interpretation [...] not appl icable for dialysis patien ts Account Receivable Associate ID - MMRAD, CHEST, 1 VIEW, NON [id number] 13:40:00Reason for exam:- >CVC placementShould this be performed at the bedside?->Yes [facility] : 1985 Sex: FFINAL REPORT Chest, one view History: Placement of central venous catheter Comparison: none Findings:Clear lungs. Normal size heart. No pleural effusion or pneumothorax. A rightinternal jugular central venous catheter terminates within the superior vena cava. Impression:Satisfactory position of right internal jugular central venous catheter. Signed: Arturo Dumont MDReport Verified Date/Time: 06/08/2022 13:40:21 [id number] 13:37:09 Test Item Value Reference Range Interpretation Comments FERRITIN (BEAKER) (test code = 273.35 ng/mL 5.00-275.00 361) Account Receivable Associate ID - [id number] 13:11:23 Test Item Value Reference Range Interpretation [...] % 20-55 H (test code = 2590) Account Receivable Associate ID - [id number] 13:08:43 Test Item Value Reference Range Interpretation Comments PHOSPHORUS (BEAKER) (test code = 3.8 mg/dL 2.3-4.7 604) Account Receivable Associate ID - [id number] 13:08:42 Test Item Value Reference Range Interpretation Comments MAGNESIUM (BEAKER) (test code = 2.6 mg/dL 1.6-2.6 627) Account Receivable Associate ID - [id number] 13:02:42 Test Item Value Reference Range Interpretation Comments PARTIAL THROMBOPLASTIN TIME 31.7 seconds 22.5-36.0 (BEAKER) (test code = 760) PROTHROMBIN TIME/[id number] 13:02:02 Test Item Value Reference Range Interpretation [...] mechanical heart valves.CBC W/PLT COUNT & AUTO [id number] 12:49:19 Test Item Value Reference Range Interpretation [...] (test code = 416) BASOPHILS ABSOLUTE COUNT (AKER) 0.01 K/ L 0.01-0.08 (test code = 417) IMMATURE GRANULOCYTES-RELATIVE 0.60 % 0.00-1.00 PERCENT (AKER) (test code = 2801) [id number] 12:31:06 Test Item Value Reference Range Interpretation Comments POC-POTASSIUM 3.6 meq/L 3.6-5.5 : TESTED AT [place] [address] ([facility]) (test code [facility], = 1540) 14[address]: Account Receivable Associate/Techni skip ID = [id number] for ANGELINA MOURA [id number]-[id number] 12:31:06 Test Item Value Reference Range Interpretation Comments POC-HEMOGLOBIN 6.8 g/dL 12.0-15.0 L : [place] [address] ([facility]) (test code = [facility], 1856) [address]: Account Receivable Associate/Techni skip ID = [id number] for ANGELINA MOURA [id number] 12:31:06 Test Item Value Reference Range Interpretation Comments POC-HEMATOCRIT 20 % 36-45 L : Account Receivable Associate/Te chnician ID = ([facility]) (test code = 542056 for ANGELINA MOURA 185) [id number] 12:31:06 Test Item Value Reference Range Interpretation Comments POC-GLUCOSE ([facility]) 105 mg/dL 70-110 : TESTE D AT [place] [address] (test code = 1855) [facility], [address]: Account Receivable Associate/Techni skip ID = [id number] for ANGELINA MOURA POCT-BLOOD GASES, [id number] 12:31:00 Test Item Value Reference Range Interpretation [...] TESTED AT [facility] [address] [facility] [place], (BEAKER) (test [address]: code = 1841) Account Receivable Associate/Techni skip ID = [id number] for ANGELINA MOURA [id number] 12:31:00 Test Item Value Reference Range Interpretation Comments POC-SODIUM (BEAKER) 132 meq/L 135-148 L : TESTED AT [facility] 6720 (test code = 1542) [place], [address]: Account Receivable Associate/Techni skip ID = [id number] for ANGELINA MOURA Culture, [id number] 15:56:00 Test Item Value Reference Range Interpretation Comments Culture, Urine (test code = URC) NF Culture, Urine (test code = URC1) 50 MSF [id number] 19:50:00 Test Item Value Reference Range Interpretation [...] EGFRCR) Estimated GFR: Greater than 90 mL/min/1.73 b1Vsslpnnf eGFR is based on the CK D-EPI [...] code = 14 U/L 8-55 N ALT) [id number] 19:50:00 Test Item Value Reference Range Interpretation Comments Chemistry (test code = LIP) 39 U/L 8-78 N [id number] 19:46:00 Test Item Value Reference Range Interpretation Comments Chemistry (test Less than < 0.028 code = TROPI-R) 0.010 ng/mL Reference Ra nge 0.00 - 0.028 ng /mL Negative 0.029 - 0.29 ng/mL Indetermi vincent Greater or Equa l to 0.3 ng/mL Stron gly suggests [place] Chemistry - [id number] 19:43:00 Test Item Value Reference Range Interpretation Comments Chemistry - Lactate (test code = 0.6 mmol/L 0.5-2.2 N LACTSEP-T) Chemistry - [id number] 19:27:00 Test Item Value Reference Range Interpretation Comments Chemistry - Specials Negative NEGATIVE Method of sensitivity- (test code = BHCGST) Indeter minant: results should be repea erna after 48-72 hrs Positive: resul ts may be detected as early as 1 day after the first missed me nses. [id number] 19:22:00 Test Item Value Reference Range Interpretation [...] code = BASO#) 0.0 thou/uL 0.0-0.2 N [id number] 19:16:00 Test Item Value Reference Range Interpretation Comments Urinalysis (test code = [place] Yellow A UACLR) Urinalysis (test code = [...] Seen A UABAC) Urine Source: Urine VoidedType [id number] 09:43:00 Test Item Value Reference Range Interpretation [...] 7 days from now? NOPacked Cells - Oqaizzwcglsf7784-48-38 09:43:[id number] [facility] 0342 Mnrywrwcdv3930-28-48 05:58:00 Test Item Value Reference Range Interpretation [...] Urine Clean CatchUrine specific gravity measurement by gzobdmkxjupcp7730-64-28 05:17:00 Test Item Value Reference Range Interpretation Comments Urine Specific [place] (test code = 1.054 1.002-1.036 5810-7) [facility] pH measurement by automated test [id number] 05:17:00 Test Item Value Reference Range Interpretation Comments Urine pH (test code = 24537-5) 6.5 5.0-9.0 [facility] leukocyte esterase detection by automated test [id number] 05:17:00 Test Item Value Reference Range Interpretation Comments Urine Leukocyte Esterase (test code 75 Antionette/uL Negative = 99805-2) [facility] in Urine by Test [id number] 05:17:00 Test Item Value Reference Range Interpretation Comments Urine Nitrite (test code = 5802-4) Negative Negative [facility] protein measurement by automated test strip (mass/volume)2022-03-09 05:17:00 Test Item Value Reference Range Interpretation Comments Urine Protein (test code = Negative mg/dL Neg-Trace 27703-8) [facility] glucose measurement by test strip (mass/volume) 2022-03-09 05:17:00 Test Item Value Reference Range Interpretation Comments Urine Glucose (UA) (test code = Normal mg/dL Negative 5792-7) [facility] ketones measurement by automated test strip (mass/volume)2022-03-09 05:17:00 Test Item Value Reference Range Interpretation Comments Urine Ketones (test code = Negative mg/dL Negative 15839-8) [facility] urobilinogen measurement (units/volume) by test [id number] 05:17:00 Test Item Value Reference Range Interpretation Comments Urine Urobilinogen (test code = Normal mg/dL Less than 2 22046-3) [facility] total bilirubin detection by automated test [id number] 05:17:00 Test Item Value Reference Range Interpretation Comments Urine Bilirubin (test code = Negative Negative 73768-7) [facility] hemoglobin detection by automated test strip 2022-03-09 05:17:00 Test Item Value Reference Range Interpretation Comments Urine Blood (test code = 62441-9) 3+ Negative [facility] erythrocytes detection by automated method 2022-03-09 05:17:00 Test Item Value Reference Range Interpretation Comments Urine RBC (test code = 35021-8) 4-6 HPF 0-3 [facility] leukocytes detection by automated method 2022-03-09 05:17:00 Test Item Value Reference Range Interpretation Comments Urine WBC (test code = 22204-4) 0-3 HPF 0-3 [facility] cells.squamous [#/area] in Urine sediment by Automated [id number] 05:17:00 Test Item Value Reference Range Interpretation Comments Urine Squamous Epithelial Cells (test 0-3 HPF 0-3 code = 90606-0) [facility] bacteria detection by automated [id number] 05:17:00 Test Item Value Reference Range Interpretation Comments Urine Bacteria (test code = None Seen HPF None Seen 15960-7) [facility] [id number] 05:17:00 Test Item Value Reference Range Interpretation Comments Urine Color (test code = Light-Yellow Yellow 42174-6) [facility] clarity by refractometry bhpphwiqj4943-20-11 05:17:00 Test Item Value Reference Range Interpretation Comments Urine Clarity (test code = 62149-7) Clear Clear [facility]2022-12-31 03:39:00 Test Item Value Reference Range Interpretation Comments Chemistry (test Less than < 0.028 code = TROPI-R) 0.010 ng/mL Reference Ra nge 0.00 - 0.028 ng /mL Negative 0.029 - 0.29 ng/mL Indetermi vincent Greater or Equa l to 0.3 ng/mL Stronatalya osorio suggests [place] Chemistry - [id number] 01:51:00 Test Item Value Reference Range Interpretation Comments Chemistry - Specials Negative NEGATIVE Method of sensitivity- (test code = BHCGST) Indeter minant: results should be repea erna after 48-72 hrs Positive: resul ts may be detected as early as 1 day after the first missed me nses. Qszjenrcxzq4769-08-86 01:01:00 Test Item Value Reference Range Interpretation [...] NONEMedical Necessity SUSPECT COAGULOPATHYAnticoagulant? NONEMedical Necessity: SUSP UFQYMbiloecrddl7876-37-78 01:01:00 Test Item Value Reference Range Interpretation Comments Coagulation (test code = PTT) 32.5 sec 22.9-36.1 N Anticoagulant? NONEMedical Necessity SUSPECT COAGULOPATHYAnticoagulant? NONEMedical Necessity: SUSP NJKKZufgmvgslmf9125-62-02 01:01:00 Test Item Value Reference Range Interpretation Comments Coagulation (test 0.27 *mcg/mL 0.27-0.43 N * Referenc e Range code = DDIMTT) Units: mcg/mL of fibrinogen equi valent units(FEU)Based upon a retrospective study of [facility] in July 2005, a result of"Less than 0. 44 mcg/mL FEU" is predictive of t he absence ofa DVT or PE. Anticoagulant? NONEMedical Necessity SUSPECT COAGULOPATHYAnticoagulant? NONEMedical Necessity: SUSP COAGChemistry - [id number] 00:53:00 Test Item Value Reference Range Interpretation Comments Chemistry - Lactate (test code = 0.7 mmol/L 0.5-2.2 N LACTSEP-T) Retype Verify-Blood Type [id number] 00:36:00 Test Item Value Reference Range Interpretation Comments Blood Type Rh (test code = BT) A POSITIVE Serum or plasma lactate measurement (moles/volume)2022-03-09 00:26:00 Test Item Value Reference Range Interpretation Comments Lactic Acid Level (test code = 0.7 mmol/L 0.5-2.2 2524-7) [facility]th[facility]bin [facility] (PT) in platelet poor plasma by coagulation nrobf4969-71-50 00:26:00 Test Item Value Reference Range Interpretation Comments Prothrombin Time (test code = 14.1 sec 12.0-14.7 5902-2) [facility] HospitalINR in Platelet poor plasma by Coagulation assay 2022-03-09 00:26:00 Test Item Value Reference Range Interpretation Comments INR International Normalized Ratio 1.1 (test code = 6301-6) [facility] HospitalActivated partial thromboplastin time (aPTT) in platelet poor plasma by coagulation [id number] 00:26:00 Test Item Value Reference Range Interpretation Comments Activated Partial Thromboplast Time 32.5 sec 22.9-36.1 (test code = 85003-7) [facility] HospitalFibrin D-dimer FEU measurement in platelet poor plasma (mass/volume)2022-03-09 00:26:00 Test Item Value Reference Range Interpretation Comments D-Dimer (test code = 33180-7) 0.27 *mcg/mL 0.27-0.43 [facility]istry2022-12-31 00:01:00 Test Item Value Reference Range Interpretation Comments Chemistry (test Less than < 0.028 code = TROPI-R) 0.010 ng/mL Reference Ra nge 0.00 - 0.028 ng /mL Negative 0.029 - 0.29 ng/mL Indetermi vincent Greater or Equa l to 0.3 ng/mL Stron gly suggests [place] Bewtvjifk8827-70-52 23:59:00 Test Item Value Reference Range Interpretation [...] EGFRCR) Estimated GFR: Greater than 90 mL/min/1.73 j1Zfracmjw eGFR is based on the CK D-EPI [...] code = 7 U/L 8-55 L ALT) Erpkezpkv1737-91-95 23:59:00 Test Item Value Reference Range Interpretation Comments Chemistry (test code = LIP) 42 U/L 8-78 N Cisoxvkqov9078-57-44 23:36:00 Test Item Value Reference Range Interpretation [...] (test code = 2951-2) 140 mmol/L 136-145 [facility] or plasma potassium measurement (moles/volume) 2022-03-08 23:16:00 Test Item Value Reference Range Interpretation Comments Potassium Level (test code = 3.7 mmol/L 3.5-5.1 2823-3) [facility] or plasma chloride measurement (moles/volume) 2022-03-08 23:16:00 Test Item Value Reference Range Interpretation Comments Chloride Level (test code = 105 mmol/L 98-107 2075-0) [facility] or plasma carbon dioxide, total measurement (moles/volume)2022-03-08 23:16:00 Test Item Value Reference Range Interpretation Comments Carbon Dioxide Level (test code = 27 mmol/L 2027-11) [facility] or plasma anion [id number] 23:16:00 Test Item Value Reference Range Interpretation Comments Anion Gap (test code = 78304-0) 12 mmol/L 10-20 [facility] or plasma urea nitrogen measurement (mass/volume)2022-03-08 23:16:00 Test Item Value Reference Range Interpretation Comments Blood Urea Nitrogen (test code = 13 mg/dL 7.0-18.7 3094-0) [facility] or plasma creatinine measurement (mass/volume) 2022-03-08 23:16:00 Test Item Value Reference Range Interpretation Comments Creatinine (test code = 2160-0) 0.67 mg/dL 0.6-1.1 [facility] HospitalGlomerular filtration rate/1.73 sq M.predicted [Volume Rate/Area] in Serum, Plasma [id number] 23:16:00 Test Item Value Reference Range Interpretation Comments Estimated GFR (CKD-EPI 2020) (test code 115 = 82286-3) [facility] HospitalGlucose [Mass/volume] in Serum or Latzba7140-79-00 23:16:00 Test Item Value Reference Range Interpretation Comments Glucose Level (test code = 2345-7) 107 mg/dL 70-105 [facility] or plasma calcium measurement (mass/volume) 2022-03-08 23:16:00 Test Item Value Reference Range Interpretation Comments Calcium Level (test code = 53945-0) 8.5 mg/dL 7.8-10.44 [facility] or plasma total bilirubin measurement (mass/volume)2022-03-08 23:16:00 Test Item Value Reference Range Interpretation Comments Total Bilirubin (test code = 0.2 mg/dL 0.2-1.2 1975-2) [facility] or plasma protein measurement (mass/volume) 2022-03-08 23:16:00 Test Item Value Reference Range Interpretation Comments Serum Total Protein (test code = 6.0 g/dL 6.0-8.3 2885-2) [facility] or plasma albumin measurement by bromocresol green (BCG) dye binding method ([id number] 23:16:00 Test Item Value Reference Range Interpretation Comments Albumin (test code = 85535-7) 3.6 g/dL 3.5-5.0 [facility] HospitalGlobulin [Mass/volume] in Serum by calculation 2022-03-08 23:16:00 Test Item Value Reference Range Interpretation Comments Globulin (test code = 13501-7) 2.4 g/dL 2.4-3.5 [facility]Albumin/Globulin [Mass Ratio] in Serum or Plasma 2022-03-08 23:16:00 Test Item Value Reference Range Interpretation Comments Albumin/Globulin Ratio (test code = 1.5 g/dL 1.2-2.2 1759-0) [facility] [Enzymatic activity/volume] in Serum or Vswnma8208-43-93 23:16:00 Test Item Value Reference Range Interpretation Comments Alkaline Phosphatase (test code = 58 U/L 40-110 6768-6) [facility] or plasma aspartate aminotransferase measurement (enzymatic activity/volume)2022-03-08 23:16:00 Test Item Value Reference Range Interpretation Comments Aspartate Amino Transf (AST/SGOT) (test 8 U/L 5-34 code = 1920-8) [facility] or plasma alanine aminotransferase measurement without P-5'-P (enzymatic attqpi6334-54-89 23:16:00 Test Item Value Reference Range Interpretation Comments Alanine Aminotransferase (ALT/SGPT) 7 U/L 8-55 (test code = 1744-2) [facility] or plasma lipase measurement (enzymatic activity/volume)2022-03-08 23:16:00 Test Item Value Reference Range Interpretation Comments Lipase (test code = 3040-3) 42 U/L 8-78 [facility] human chorionic gonadotropin detection for ghotjcjkl5041-99-85 23:16:00 Test Item Value Reference Range Interpretation Comments Serum Test, Qualitative Negative NEGATIVE (test code = 2118-8) [facility]Leukocytes [#/volume] in Blood by Automated count 2022-03-08 23:16:00 Test Item Value Reference Range Interpretation Comments White Blood Count (test code = 7.8 10x3/uL 4.8-10.8 6690-2) [facility] erythrocytes automated count (number/volume) 2022-03-08 23:16:00 Test Item Value Reference Range Interpretation Comments Red Blood Count (test code = 2.42 mill/uL 4.20-5.40 789-8) [facility] hemoglobin measurement (mass/volume)2022-03-08 23:16:00 Test Item Value Reference Range Interpretation Comments Hemoglobin (test code = 718-7) 8.3 g/dL 12.0-16.0 [facility] erythrocyte mean corpuscular volume 2022-03-08 23:16:00 Test Item Value Reference Range Interpretation Comments Mean Corpuscular Volume (test code = 94.0 fl 78.0-98.0 787-2) [facility]Autom[facility] erythrocyte mean corpuscular hemoglobin (mass per erythrocyte)2022-03-08 23:16:00 Test Item Value Reference Range Interpretation Comments Mean Corpuscular Hemoglobin (test 34.2 pg 27.0-31.0 code = 785-6) [facility] erythrocyte mean corpuscular hemoglobin concentration measurement (mass/dtx2597-98-29 23:16:00 Test Item Value Reference Range Interpretation Comments Mean Corpuscular Hemoglobin Concent 36.4 g/dL 32.0-36.0 (test code = 786-4) [facility] width ratio 2022-03-08 23:16:00 Test Item Value Reference Range Interpretation Comments Red Cell Distribution Width (test code 13.8 % 11.5-14.5 = 788-0) [facility] platelet count (count/volume) 2022-03-08 23:16:00 Test Item Value Reference Range Interpretation Comments Platelet Count (test code = 237 10x3/uL 130-400 777-3) [facility] platelet mean egymmc0806-40-10 23:16:00 Test Item Value Reference Range Interpretation Comments Mean Platelet Volume (test code = 7.2 fL 7.4-10.4 06720-8) [facility] neutrophils/100 ngcqosbqka3199-57-51 23:16:00 Test Item Value Reference Range Interpretation Comments Neutrophils % (test code = 770-8) 60.3 % 42.0-75.0 [facility] HospitalLymphocytes/100 leukocytes in Blood by Automated count 2022-03-08 23:16:00 Test Item Value Reference Range Interpretation Comments Lymphocytes % (test code = 736-9) 30.8 % 21.0-51.0 [facility] monocytes/100 wgqbqnbtuh2618-63-29 23:16:00 Test Item Value Reference Range Interpretation Comments Monocytes % (test code = 5905-5) 5.5 % 0.0-10.0 [facility] eosinophils/100 kmwcqnteiq4982-19-05 23:16:00 Test Item Value Reference Range Interpretation Comments Eosinophils % (test code = 713-8) 3.2 % 0.0-10.0 [facility] basophils/100 wnjhtuasbh1120-27-78 23:16:00 Test Item Value Reference Range Interpretation Comments Basophils % (test code = 706-2) 0.2 % 0.0-1.0 [facility] neutrophils automated count (number/volume) 2022-03-08 23:16:00 Test Item Value Reference Range Interpretation Comments Neutrophils # (test code = 751-8) 4.7 thou/uL 1.40-6.50 [facility] Blood by Automated count 2022-03-08 23:16:00 Test Item Value Reference Range Interpretation Comments Lymphocytes # (test code = 731-0) 2.4 thou/uL 1.20-3.40 [facility] monocytes automated count (number/volume) 2022-03-08 23:16:00 Test Item Value Reference Range Interpretation Comments Monocytes # (test code = 742-7) 0.4 thou/uL 0.11-0.59 [facility] eosinophils automated count (count/volume) 2022-03-08 23:16:00 Test Item Value Reference Range Interpretation Comments Eosinophils # (test code = 711-2) 0.2 thou/uL 0.0-0.7 [facility] basophil count (count/volume) 2022-03-08 23:16:00 Test Item Value Reference Range Interpretation Comments Basophils # (test code = 704-7) 0.0 thou/uL 0.0-0.2 [facility] [id number] 16:47:26 Test Item Value Reference Range Interpretation Comments Case Report (test code Surgical Pathology = 104) Report Case: [id number] Authorizing Provider: Nathaniel Dooley MD Collected: 02/26/2022 04:38 PM Ordering Location: [address] Received: 02/27/2022 07:57 AM Service Pathologist: Gene Carlton MD Specimen: Cervix DIAGNOSIS (test code = r2rnqXGuMDOwg3hkLSPwbV 3220) FuZzEwMzNcZnRuYmpcdWMx IHtccnRmMVxlcGljOTYwMl msahZeVJJyhHSfP0Rtmwyh ZWaeDF2mUI9veGxspDEcwP UxFNLbMkZaa3wpq073lHRd y0oxPRFTpcfipVn0dWfbA8 8et0R4PdoeI03zeDEeFVS7 RCKdBPDzaTVkQYWfDIC7XF NwvHEzD4lkCEDnSN7qokpx KKadFNgmAJPaiYT3IZUziV QwB9PuIVIfDQgmSAOcwif3 AbNdIe7rxMCccKtqNBnxGY SlXWGfPZakHYItShEnF6OH PlvYINLSFAJOQRWJRA6WX7 z0QMMyzoi9VJXvZGJEEKAX EhQMT5zEBSJFXiSEXVPFUN ZsF0OwR9HJSF2LRWWxX0IJ QYZUYZTXWJ5FRGFaBEDdNY Rlk54hKN89EPhuXCY1w0oy dGYxXHNzdGUxODAwMFxhbn NpXGRlZmxhbmcxMDMzXGZ0 bmJqXHVjMVxkZWZmMHtcZm 8uyMSjmZlfTfObBNWss5pc bwVQidbopWy7n4lgVYKaXa Z3vYJuBHeiB3kuwaUymFCv PULnYSe0gX35IPQkhZ1xxR YkLEbxuyZzNeZ3DGpgTIWo WbC6IDItmFIvNNTsU3bsBN QwXGdyZWVuMFxibHVlMCA7 bPxrv1R8xOVlaLDiqIinUq WvZdTdNiWSp0GsZAa8nNtd A5JkFUFtUuM1sUIqJRQwHB egXCYiSXEqtpM5kL19TZwe iyN0iYOil8Eqb90mw713kT 6hsJDuLQR5GAPsBVRzoOUz YPBxHQL9TIIgkEDpB2ttWD ToGK2cyqgcUMeoOFyhCCUu xMA5MFCjoQSzT7DmZPVsZP aqJOFtiro3DpPbTc7bpVDd iIwhWVgil1dsh2cwgSUeEu u1PSDyOzLbWqwxDLbfq6Nf c3luLBDklw5tYSB6wILinX xwg4N6qYJeRUFmxAGpTTTs TY7jdZJiHQFjmT4ftsliPI BnYnJkcmhlYWRccGdicmRy Yd0lwXreNGX3QDxhR8cjrT 0zObV1YNjyR9jgaN2sULl3 YCvbHHSicJJ7ymN6FZPxxP RmZ5VlbA8zXYCuJP6rivq1 w7dhZBB0JFmfGXUpWwZ8sm E6OIUkuNKdMLOkqFyhVRrk l935TNZ9AxHwDODeg8NvP1 PwmFppI02yrExrR64aONLk xRmscD5rtKiyaM1kVgYwXm DiAHmozFobLZ7cXKTwA5xc dYQhHNObQZBfU2jmKoVvwY 1pxHjsOYhkdrMdAYZpTqf8 LQWjhDUsXJDsHqs1IVWdSS ZtL48hwlelWGA9dY6mt4fl s6XaQEegGTL7XATja52yYG dyssG1IXsuKq43JBwkBYK4 USktZKJ4zG== COMMENT (test code = e9zaaIZuDWYryNA2LiTuPZ 2374) Jej6ffe2QjtLDrhCXnWMie mFSiwiNvkp98nHM3pJ82RE 2sERPpRqF9UURpexV7Kcb9 GMKbTNUacRMlY872z3bxy3 dtazTzjSI1tDpaZGDdovde QsN8XFbcIAVeqpitAZu0CH urTVYkzRQ1GEPxvNShO1Eo YFXfBK4ukna9ZNE5ONnkUM XaXmW3OOMebPDtHLRtbZok NYrnf791IUO7XsCoNFJbab YpxWejdT0qMtFyVRYDqUTp mJX8bBMkhNaxDIhvr1Tehz iyv2SeR6KsxzmwSUjojWSa nnNlcbPdr5KxWB7aNLalQI W6hU0aGRJax2diKCVkZ4Ea LP6iO5Kwy1ihSZZcy6eavc PcTTX4tMHmHMMeyuUazkVy FFG0rFEydKOzgBTevPNxwS Srk8WylZC0mqSpviEchEL8 JARrw6MzkK47LHNkq39mRZ Bhcn0= CPT Code(s) (test code z6khpUCzEHDdeRH9OdUfGC = 3357) Ugp3caa4SohOSvsKSjSLsn eFRuogZlws03rHM2bT22FM 2yZKUbCuA1JYNutrZ6Djx8 LWIeYEXihKFqE902k6efv4 tmvcMauBM8xWrxOMRbateh YsH7DSptSBLamvrjPWm8PP nkQCNutYW2ZBZlfEKpR4Sm ZOMeXC3cbek7EBI0HAkdNB NwSeS7WXYtlSZaKKMgfDgg LYeof765ZMD8RtJvTGZcur WnbThejX3pNmSwXZB9WBCc NVxwYXJ9 CLINICAL HISTORY (test z5nfkPAaATCmzFB8KyUlIW code = 3356) Jvq9aso6JucCAnpIFqTQye kNPbxxSrfe37oZS0bB46FN 1dBVFaZmI0CFUevsU0Fuc4 MRTwPELwjKPtB278s0dyq9 ueryHuhRO6lLloXNJioisd PqF6WVfuVIMnxwviPBb7AZ ssILPgiIP0SEBozZYgF7At OKHsOJ0yjoq3PHX0DIhlGG JiJtG2ZFSehYNnVLJqfAgx EYmjh330SPW5MpRmOWWuvs YeyPhxjC8hGxWcEPVcLDC0 Kd7aQH4pVC2dsBGvkiusaj HncbCkntVtolTiiyA8CMHl r9j4vGODBFe8IL1sFRlVHR OjtjGoXhuutV6whFwzkMAh RC24rJ8rgXQek0EnpBUxUH lxuNesnbSnggOgCOtupU3i bKymQU7xImL3WGttmsWrQC GxHLYfxB1jXFOcr9lmufYh YmRvbWluYWwgcGFpbiwgU0 9EBWGlbDwkpIwlCCKsZS6y p2NljfXxBXHtIKLlA9QyJY Nie2CqGQI0yiEcLRJcCQI0 qRP3k76kqUudWBQdCC6uRK HqJBydCWKsLNluYV0yNDYk byFuH4YjFZ7sv3Saa7q+b2 9coC7wY1hoC9akVRQ4 GROSS DESCRIPTION (test p2txxTHeWKWcxGBFHBPkN2 code = [id number]) llctZkMZPtyOPeA9Psoeqs RMckIN7mWE9pcFegzWYvuJ UwIG9QJSBwYsUyWQDbyBBk hzPkUoFaDQRnsBUqnTN6BR ZoWI7lhhzcJYnsYMdrLDNw doG5TAEoyBAwG5ApQVZnLS 1ivmcqBCK7XTnkbI7jwqNK PzseLv5hdDTlwXgtFnNnVk NoYXJzZXQwXGZuaWwgQXJp YNz6tT4UXwiyYYN9GHZMBb zxXSSzWF1Eu3fxDGQrkVKs JZW0YKgbvXPbTLOoLLItRI f8KLZmXZdrkSBiPP7qySdi KuxnuNsmr1TqfYRaQUdiHY FzDOTzHMzvQFIvDU7UZpRm SIK9MRl0VNGrGDp8DGb6RF 4NShFlCXTqWVF0APV9NjMz QYe6YAxcYG8AZXJ6ZSR8XH vuTjG4PKV5CgXbBORaIoLf XGYgQXJpYWwgXFxmbCBcXG 9lyCfcuUWhcrXKHeQDRAJ9 aXguXHBhciANClxlcGljTm VzdERvYzEgDQpcbHRycGFy XGxpbjBccmluMCANClxsdH XrgGxyqdPtFMXvD2YldcSl WWczLTEbyv6ddXtlKOpfUv RwENOlt3i3wTD8sHDzqYN9 vWMijWxmWtXbUA6ptDNnAM 7wNNslLKbtroSmh7QfRD90 bWJlciBhbmQgImNlcnZpeC IgaXMgYSAwLjUgeCAwLjMg zWGdYyPcR76iiXVhWBdtCJ ipi44xdJM4qCYapKJlBxBs Z68njkQmAZCqoOzvKCO4aM WjCEFqv68jRAJ0Gt7ciCLz QIAdeoW0m4UvUVpzQWIoMz nwXYRpLLgoaZYqHD0XX3ue qIZcFVSMzzR8nupkCQhXNL ANFWSvVNRKTBvkaGibrJ3l BHstvV2yNB9WOHDwBSqmER QcdOKGDOL3PC2vNUlazBFp jlguERYwB0JzM0BmjgQemG OaABSgwrCjj6ioTAM5WLHt yCTnzEWgVqOdOwtmTJC4RI yjd9unIWQ8AOJulCBppATy WVsiDjFuRkotWIWlC5TfM8 XqgtK1OHj9 MICROSCOPIC DESCRIPTION b5ewuIZwFQYyjFK0XnLrHN (test code = 3371) Hsr3uef1PsvQFptKNiJYny tSAbqwAglk18pCM3hO64NT 3lFPPvItI4LFWmszO7Qbf4 QPQpJFJsfUDzV049s0qrz1 xckmPzoRY3yFlxEXObccxl DgQ0EVdmKZEuguzqCFz0CJ jfVHWwhIL1FGIxaBCqV6Dx NWYrMN8gxef3SQH9XKxpYD GcKmO8ITWfjCMnKJVonHjt QXnew322IQB9SoJmVYQist BrbXzuyW6lGhDmANTRDXRf u1GwLYAzMYRgrn1= SPECIAL STUDIES (test u7tnnCSlTVUmx0mdSSVusN code = 3376) FuZzEwMzNcZnRuYmpcdWMx JBigtrKlHLnyh7IuN2TsDb AwMFxhbnNpXGRlZmxhbmcx ZRCyUAU9ayCxPSLjHLgbVS PmWCwmBl7csQLpzSyqJeQi PKSnz3tpfkBRqdidfKr0r3 qdVNPhZoQ0fGHeVJejI6uk iaJwrOMmP2WuyJLaxSt5g0 utBlOhIqB2bRGuVJkfA8ef kePbrMYrUXJsMCk7gK85KK DhuU0qpFFsRPkqdxZtPqG3 GGpaONTwDcI7JRHumEHcBY PkK8mtWCIeJEalFDLsVAkc iNIwZJC4xNyby7L6iJBxhI ApzSqfJgHtQiYhWiYCe5Wm FOf7tZlbA0HkDVCmZaP6sO QgUGFyYWdyYXBoIEZvbnQ7 dWjmpnGrk54wlAEqAEIkWR PqZeVesAalYGPeGDVQy9Mg iGnjCKI7vNb6gEoxWfojVK X3Eir8EK7wpj91ncs6gHpn ZDSkvuhhBpP8GQteKJBrfu egPGh5DVpoTHLhaYG9BQSr lXMzB4WnJDJlWL2vuyh7KX H0NDpsBSZtEzM2GNMcuMXe MJLpwPwvYAsns278BOC0Bh NoNN0sC4Llf1L5rJ8amMCg DHBblATsVaIfXTAykg8xiH QvZJvww8SeKCW9pzI8iAKa aSYeNVFmGU73Jxzfn9PwDj tfn6GjT28dbSO6PDczr1qi KF3aXtE7zwSaZYfoy1cwmA 3xGaT3QAzuFG4lXK3pWSIg jI1cpvhdLNBpAvMhyxhhUZ NdvUabyqAsZz5vvMqeELM4 QXkhQ0jxoY5pDbZ6KFwiN2 blaZ8bGNy9LNemwUN7CHCk fU9hHV6yhwflz1fuAEqfTC kuPTNoytY9amB6TVPduNZv A7ZqzY5mZPXpLR0msympw4 mfVVJ0HMkzSQRbYRI1SqYu VAMii1Jiwpv1NeNqk3UpfA RlIWsbL79zi396UYNmtpLk E2fctIJlwtvcrLKtlznvGF hfnoG5MMDnUNFgSKjePOEa XGZzMjJcbGFuZzEwMzNcaG ljaFxmMVxkYmNoXGYxXGxv I3qlXhLfE0DvDFEnKhJcOE loIVmwiVMazBRwqVS4rH6p QP6kPIXujUOmQ9FqWTVxeq SkgTRuJQC6tBTdaFNhFV7n ABtdjGRaa9lud6EwP0przV sprHN8HI9jCRWfWMZvTQgl x0HslZ2nRmvzoCWyodhoZX xmczIyXGxhbmcxMDMzXGhp Z4sbPeRxKFIkePniQGbqf4 NoXGYxXGNmMlxmczIyXGx0 cmNoXHBhclxwYXJccGxhaW 2bLrImIjGbYpkuPF5hDZOg Y3bfbYQtGEJxQNLdF6owOq SnzC9dlVnfMAxnMlUxQaTr ZeQXq132ev1vVQBokFMmjc HWmQHuxR6jRLfhGHzqIYbn tNRwEAvgb2rpHOKtl6a9kC OcBKGsbjPfw3zwRLzlhzTn IGPcwMEmaEXsNAVgv63eNV vwsUiojUtyTPPlz4ZfdDfl p7CdNmBpWEvje4YcA77ccI JvbCBzbGlkZXMgcnVuIGFs g05vy8rwPJNyXkO5oWLzxP Q2wIDehJJqb8YtlJmaMAXj d0hqGXDaab2lgaalaACje2 GqeU7boztlZFrwtRPgxbLt KVHvj0q5yWWnZKMuIDZvXJ cvbDm5GUVkg982qm5lkvB1 fOGoZOH6IDkqBFNsPRNymt UgZXZhbHVhdGVkXHBsYWlu XGYxXGZzMjJcbGFuZzEwMz NcaGljaFxmMVxkYmNoXGYx WXrfO3svGrEgE4FhXXIhVg IswGMhH6pnzJRfMLMmBOpl XGYxXGZzMjJcbGFuZzEwMz NcaGljaFxmMVxkYmNoXGYx UNobU2ogXyHtW7MbSECrGy IgIFxwbGFpblxmMVxmczIy JAinwrgbWVSrSQxrO4zcRa GaEOBepEiiBAzks2PvLKHq HYHlMjwdzzIcDSq1huIoKS BhclxwbGFpblxmMVxmczIy VQajqnlmUISfFIngB9keRt FmYGNfhQzaWKnif0TkPNIm XGNmMlxmczIyIEltbXVub2 edt5BuX2emsRqtsOE8YSKx N3aiyXMhnOV9AVG8mO7vTQ tvqaYrUVNno6EoQQGvANZi YuT1sY2vTOU7FnZZyKreZL BsYWluXGYxXGZzMjJcbGFu ZzEwMzNcaGljaFxmMVxkYm EkPHLyRPhfU0zfCnQmB7Jb USSbOcJaiIpkYQbdRLl4Wu xwbGFpblxmMVxmczIyXGxh rpslRDMpKPlyU9gsVmSdSS LvuLudCQkyx8LoJNThBHCs MlxmczIyIHMgTWVkaWNhbC YNSN60VUGwYCJhbNoepG0a bLAHMHAgycS3k4Q5XMggQN SpGPo4ZHgzxdDpXHTuxF2p LLSdWO8gVZj3yaShRMNyw4 VxIS5gLRMyxZQwYIE3NSWy k0KzM7Fqj8PdAVHeWKFsfp 5pmvQoNtIVzBVgEEXxhg67 VAJpIE0wN5wzDVFaPNEkfx ZelTVaa4QoDFTtsTE3qQSt VW5OAwVPs83cSOKdEWOMgf HmEMOpeBsbtNB6oqR5tP9r LiBUaGUgRkRBIGhhcyBkZX Glzp5mvkTkGRXaBAWsm0Ym jJOtcQHmvdMdU4Any5YvBF Ixsr78ZXbsiFWeaa97LB1b P7Cfj4SkwC4vUPhzPFLrf4 FnyNOnbNKfIZCuf2HdS7jr yaguVGwjcDJbrP7dQUAmYR r3BHHcy0BxKKKfv7CfXpEr gxTmGFLgJXJtHDVuxJ40UK W6bAukuKapvgPpTE0hNHDq nxVeOIHxQRUgoJ5kVFvdsa GbWCKvpxE8r0R3ENgdFNYr sqHvTqfmVBA7xyKhgkZ9sY ZwD1hlwzdpLSjzLUNlg3Ib lD3weGOYvLRgy5GsmLFuvO KMkZDnXY7ewfPsDS6mHXB7 ODggKENMSUEtODgpIGFzIH K2TZyrOtpjEXI4rwVmDOAx k6UwQLmwD0xpS75etOzmeE g7wIHooTvnkGLbkAYoACPy rtX7r2I3QCNxf2PqrvuuNO BsYWluXGYyXGZzMjJcbGFu ZzEwMzNcaGljaFxmMlxkYm XqVKMvDLwbM6hbSsWzUiBa PbtxWCN0mC== [facility] [id number] 16:47:26 Test Item Value Reference Range Interpretation Comments Case Report (test code Surgical Pathology = 104) Report Case: [id number] Authorizing Provider: Nathaniel Dooley MD Collected: 02/26/2022 04:38 PM Ordering Location: [address] Received: 02/27/2022 07:57 AM Service Pathologist: Gene Carlton MD Specimen: Cervix DIAGNOSIS (test code = w6nulEUmUNTdr7hpTRUmlG 3220) FuZzEwMzNcZnRuYmpcdWMx IHtccnRmMVxlcGljOTYwMl ugxbNfDAUadOXdG8Dgtkkh JGygYN8bGN9mfJpveBXucH GyREUtWvLqm4ogv710gNLq h4leSGVCkmnyeUf6zJvwX8 6ud4W4ZvmeJ50xzLJuOPM8 QRLyWXDmvOVxFYIfGDE3KK ZjuIClB4ylZNGoJX0pdazh HJlpEVppUDPxjHB3PQUktE UfO3IpFFEiYBleSTFcnhs9 ZsRoRn9tfFHyuJlcGVcuZL ByADSlEXugSYYdKzSgZ8CK PvaCKOIEHOODXFPRPU1NB1 k3URPozib9YXCkOUDLSKCJ NvVXW1gZKJHMXkCIAVVRVB XfD2SuX1RZCF3QJSJnQ6CP NRRZWWTRQM5MUKPjABHcJP Yiz78qAR00FXxsRWJ1g1kb dGYxXHNzdGUxODAwMFxhbn NpXGRlZmxhbmcxMDMzXGZ0 bmJqXHVjMVxkZWZmMHtcZm 8kkYKpsAteDvEfVUMjn5ul ofQLglvozWg9q4qmJZCeOv W0aVXbZNizI3fiwuVneCOg CPLsZAm4iS48RDRbiA9bjV BeMIhjkoFtSwU6UBvkTYWm BaP6RQMsdNBkDSZiH8pzHF QwXGdyZWVuMFxibHVlMCA7 rGfra1U9eLUzdWLliYtyRo ItZqSsUfHEw4HjPWb3oVsc M9SgYSDoBkW6wDZkKCEqEV wjKAYyYJBlqfB1rC07NRoi kfZ2dTHkc7Qej19an886sI 6zjAThETN0ZLWtYSAipMSa OLSmNKK5XCNeeQFqK9hlPS SdYY2ycslhCIrrQRuqXQZh sRB2PSJrhQYdM7GcNUXuTM whWSZfvgl8YdMiNb5rzKFe bAfhBRbji4exc3ltqLOqAl f7EKBcSaHxSwrkFPqgq0Gk s6slFAFsof4mAQX6pLFvfI wap6U5kVHmGNXztMMkPZZu GQ4quBYqOWCztD9vbjbhAA BnYnJkcmhlYWRccGdicmRy Vf4xjPdjYPJ3ZIqnD7ubcI 1cOaN5XAyeY3askJ8gQYh0 PIvdCSSgmUG2tfP7GWOjdC ToZ8SrkC9vGFZlZY7vrgf8 r9afYRW7OOdjWWMiCmX5gy L6CKNchTJbNGKjhAxcGKyl z060NQK8PnJvRLOyj8QpD0 HtcHakX31prXnqJ15hFHQp kLksvN0sqUsteS1cIeLfLd JpELfnxUjpVU1jXYToO6tp dGPaFTYcTLWjX4cpTxKhlU 1ijXcrZCvxpiGqGGZuKnv4 TWQjuRNyNANpRhl1VFFgUP XhZ40qpdwwYSH7vI8gq5bp m0JcGDeqOOW1WGUsw34dXU psbpE0WEdrEn84KMrlHMC1 XLimABT9dP== COMMENT (test code = e8qdvNPkJAFdpYI1OmUbYR 3352) Bpp8eby1IdzVMspEXoPTyq tFBploUefz78jAF9vF58AO 9nQZOoGmE9FWVfvfB1Eqs6 IAMbVBZmoPOlH792q8wlu8 wlkxRigEH6eHwoINKvmgdo JcF8XUsjGKHqujvhCSy9YK axNHRutSD4GUOqbZFeX1Vi MMFjMA3chvq0ZRW2HIhrJN ErMyD3BQOgcNXxJQRfuNuu XPdhs210DTU8RiIzSHPdee MvnFkajT0mXsGxOVBKrBXg gBP0nVRbbDpyPOahc4Ftuh qho2XhR7JlvhynNPdfsOEw rdFywgHyo0WaJI2wHUedAK G8cD4kEVTuz5jhYHFqY2Vy OZ9gX7Xre8wfINRgn5bjwo HzJSN1dQTdULYlowZwjtLx VWU4rLTjfJKcgKVqhXYtvX Nmx3PhbNK7qwKjpmHatEQ6 XWHmd8QdjI38ALVuo14tTS Bhcn0= CPT Code(s) (test code r8ajiJYtMZTzxFR8LhOpUL = 8093) Glu6iyc7UkpJFwlHNuCBzh xBIgcmWzay36iNX1eU89WL 7eWUQqUgU1TTLxctT1Aad7 PHIgIOJwvLPvU254c0mis9 bjcmDjiIT8zSnxEZXkepkg VoE9VCuoVFHnkyssAFi0PL tmESOpaDH7MVGcdAZkL1Np QDAvFE9svut4JAQ2EUcuHX TwIdP5ZZBzzRAtVBZfsNsa GCvri241MSU2MpNpUMKyij VztThgvH0eRhYaBTN4WZSc NVxwYXJ9 CLINICAL HISTORY (test j8tzaEXxQDSlfHE9ZsKzRB code = 3356) Nug0lkn5NudBWyvSJuXHad mWHdcuRelc85dLM7hR81WV 8vWQWuEgJ4LPPzvkB9Lbt6 UFFdEIEmgRUgH130r5fzd4 ylrwGaxXO5jEwiINMwcyfi GbJ8LZfhHBFlcuumUTh7MA iaYUPkgER7THUjiHTlF9Ve VHPgUA4yapw2BKM5GFbcLR RzChN3VXStzDGiCUHwcZpl PBhlg983YAW5CbFxAMGnph HtmJuyfN0yBmKaBTDvINB5 Ni0cTY5nEW0hyFVpfzsmyz IdhwCgtkBenaJjuaN4PZFu l8t9kAFNEGq5DQ0xKTjQHT ErvfPnTyvvwH6znNyqiAPh RQ79jU3gqONpu7KxlYYmYH dcjPftmaZqxwNmOQhrnC3s vGhkHV3bBmC8CZkkciBwWF PyPJKhoL2oDDUci1dnsuMm YmRvbWluYWwgcGFpbiwgU0 0ICRAlbQpkaNnyQBPxOO8f t7XqrjVpOLFvPVSlW6ZtYC Cih2UjLUC6jeXgIJHlELV1 hJA5v92hxRekVDZwUQ6kVZ JrDBebGIEkOKtrZU8rIPWn wgEkM3FnCR0ay3Sno4u+b2 4yoF4sX1vkW6hsSTN3 GROSS DESCRIPTION (test a3ofnIVyPJTlmREPPCOlG7 code = [id number]) sninIeDDCxqAQhA3Uwfuur HTsqNR5aBA3nqXfncJDpwO PeZT6MQOLmHgIvHMZsaVHl saOlTaCvKZQojGWvxPP2XU HkMK2ymuyvGKwtXCddTHHb pjS4YBZxiPBaC9ZbFUZhKP 3xunowCNI8DPdefZ8nuiJN VrxzMq0vrTCleQcyMtAhOx NoYXJzZXQwXGZuaWwgQXJp LMd3aM8XBqwiNXT0ABRVYt veOXSzYD2Fl0jnROGczSMz EEZ1TVjykQUdAJXoPMOdQI p3FTBcBFyrkPNxSD4dsMzu ClzpfUjbd5DciNCjZHfpXK RjZXMbNEzaHYZeSR0JMaVj OGE8ITw0RIPuPKu2LJj2LY 9EEeKsYTRsNFO8YPW4UdYw MPc0AEsoDQ8ATVO0QCM6XG slDzQ2SQR8NaGdSQLwLrWz XGYgQXJpYWwgXFxmbCBcXG 1psIrqvETvzjXKQfQICFA4 aXguXHBhciANClxlcGljTm VzdERvYzEgDQpcbHRycGFy XGxpbjBccmluMCANClxsdH BfoJfnovIgWCWrS0KwbyMc MMmuDJSwpv2zdHfeOOicQs XeBFDtj2s4gIL6sAYjsLZ3 xSThuCxfLxJuUO8caYPbMV 2zKGzmUQexlgQgg4MtNW42 bWJlciBhbmQgImNlcnZpeC IgaXMgYSAwLjUgeCAwLjMg uYHeTnOnQ12zvUGuGQpcMD mht61flPV1xWEjiSIaYjQu S22sntWfEYLiqZodASW1sF MuLQPab57gEPQ2Fy9oeHKw MIFrpaI1r6JlMMutYTCnMc pbXPMuEEpbmJYrYD5BG8tz dLClXQNRhmX0ewtqODpGPX DHURYkKCHMSSmnhAehdO4g TCrcnJ5eUC0RLQNdSNjfON WcyAQAGRB8XI8aEJiyzZNp yevcJYZgE4BtI5WbreCpcO KmZBLmkvTxg6qmSMG5SRRz xXUvzKWwZxFlMpgwHVO6ZP kpb0eoEZC0AYLehLQuoFWx UBckAaFbXovrOEMvN6MfC3 BovgV1MYz3 MICROSCOPIC DESCRIPTION h1yenVMuVGOxnLE6XeQcQI (test code = 3371) Dhq1szb3EbkLOmmLHgBRqc fITvlfBkdn87fZH2yS21CK 9eBXRjTiO7RWJdbwH6Abp1 CSIwPSQgrAFjR417p9oxr6 qgsuQlzFD6wZxqZJHqqzaq IcW6ICpyPQZiorbtZQq1VL caQVUtvOS5RYNtkZZnP3Of NFHtFT3hhnd0DTD7FYcaVT CvTmC5UKVctWBjHCYunCtp BGlcx875PXH5GhGlLYOqpn FrbBvlpK8fQcAmJNKNGZAq w3YhKASsDGByms6= SPECIAL STUDIES (test q8hokHCvUMDae7gmDDRmsP code = 3996) FuZzEwMzNcZnRuYmpcdWMx KXlqdyTnISbgq3InK2FlNp AwMFxhbnNpXGRlZmxhbmcx ZUDsEVC7zjHtBBMbBZbzXX VsMQbyDp0afEJpxLjmGmDy NTGsz6ikktOAfolmpMq0r2 lbLHWxEiF8tUJlLNdkQ8qn wsQthGXlO1JkdYScyXw5a9 wvPxMeTrP3aFMuOWftZ0kd skNxyJTrMLMxOWc9wU98VK SpyL2bnZKhJBkrpbJoRwK3 GBeiDIPnElS2EREadQAsFK XsM1ucATTbHUlxBOUeGMpb wKUwOPI7mYrih4T3sRXzeS YhbExwBsNsWtLuMjPWo3Jm ZDp3lIweX4QxJNJqTmL8pH QgUGFyYWdyYXBoIEZvbnQ7 oFdncwBbb53fhQQmGVMwVZ YsEcPbjOroFMDsANRUx7Ui zDncKRO4pTg4fDuiQnrpVN G5Lep3FR5wfu19fet9wBda RXGrapxzGkS4SJqgDKIfpd lnAHu7RVusOBHmhTD6UDPr uCJjL6QxXKTsIF1ujtq4FK P6NJmdDBMyTyI4DHStqZJd XIXpcQqkVAcif090CAS6Rn FiIV6iY6Zgr3N2zI3ioUXc HBEtsUTbTnCyXZRdpj7xyI EbUZfgh6XvPQI2msB7iBCg mPNeIHBxOB64Debpy1McMh teo7HpN34fcFJ1ZTwbe8gx YG7lPcT7qzFaEThrr0prrC 9vPiF5EUjsZA1hBF0zATDk lD2uzwksSLImAyKehyquFW QchYghvuTdUj3owAeaZNS2 HJnrO1affE4bZnU3JIbuF6 fhaC5oCSn3NAvnbTI2RDFv bH8aKS9wzlzwh3fiRNhpAC seXNNyktE7jgH3EUCkjYNc M7EvzG0mPPGsVO4wofuwy5 kpNTV9QMjxAVIiJFD3OlZb AKDvc7Xpccd5YsLma3DcqX NfVXlvJ14ll578HEUcwfOc A9eobWSaoumqmJNskbpyIT rvvmP0WYXxNKHaAKtbWTSr XGZzMjJcbGFuZzEwMzNcaG ljaFxmMVxkYmNoXGYxXGxv B0qwFtOiE0GdITNfIfRmBN geOLfigPNxcBOztIC2lI0g CT5gBMGyiBXhD7RtWHBgtb VppDTrDWJ1xZPzdNDsVN2o IDyolMXpd1vtg3VqF5zreQ urrQF6WK4dVMXmWCJhLGgr t8RkzI5lFyfxbSIsibjwWQ xmczIyXGxhbmcxMDMzXGhp L9pkNrVpGEVinRbhZVdqh2 NoXGYxXGNmMlxmczIyXGx0 cmNoXHBhclxwYXJccGxhaW 7aCbUoKoGiDoumJT8nKDZp R4qhfTQhRGIbCVDiD1udPa LupQ5slTzqWAgxCrTtZpId HaQSy971sk0vWQXniRHmxn GUwIWwuQ2fVRmlOTzbFVkl uNHaSFnkq9wsYNWhp6c6cG AaZTPqlzXfq8ztEHguynPu XFVikERvuCBiOCCwb10uMU sbnDlkiIteSTMlr2RtdVrf m5HjFuOjOIiax5LpJ39wsC JvbCBzbGlkZXMgcnVuIGFs k12yu1zmZQZcNeJ9sSXodH M4dHErfOZmo0BviOzzQBVw v8ztTYHskm2rwcjbwNKig7 IrtN0zyybbDErcvIJwinMf PNQhm4j6hEVoXSQzHYFuXF kfgRr0FEItc253rp3qwsX8 xCRaCCK5LZwbMVLkRDQjzr UgZXZhbHVhdGVkXHBsYWlu XGYxXGZzMjJcbGFuZzEwMz NcaGljaFxmMVxkYmNoXGYx BXohY1orMlBsE7BnZKPzBi UgzFLvW1wxlXYkULQgEPez XGYxXGZzMjJcbGFuZzEwMz NcaGljaFxmMVxkYmNoXGYx KRrsH0izUaDbN7EdBZEgPs IgIFxwbGFpblxmMVxmczIy CMdvkwtoPFHmCDkqG9qiEg JzTGSxrGjqUAymn3IrMBVu WAIiBqrhtoBmZLf8uoNiZI BhclxwbGFpblxmMVxmczIy INyclsviMWHmCVdmK6amPo BlWCDctNpmMUjnl8KlPRAs XGNmMlxmczIyIEltbXVub2 jyi1QaZ9ymvWhakUD7KAGm T5ozzUMofIG5QLH8bO0pIO rjkpGlIYUbo6CkSNTkURLf BuT0vN4wZET0PwRMiUvnLK BsYWluXGYxXGZzMjJcbGFu ZzEwMzNcaGljaFxmMVxkYm PnGUByZPrgU2gqTqAvS4Ha LEJwRkUlgJfjSKwuORe8Ig xwbGFpblxmMVxmczIyXGxh wsmsHHPkAQcnC3kuXiCxUJ MrvEyvDKijt6QfGIRwVAEk MlxmczIyIHMgTWVkaWNhbC TYFE08QPYfKYPojBoiuX5i oWWXDCYimiP2k6B7UIdiQC PiNPk3KYwixlFtFUSxgJ9c ICVlSM7gXVp3arLnJTMne2 PaWV8fYYKoyTMqRAZ9KZMt h6UxK5Ijx5KoYDFbSWWdjw 1eioYyCtBVaTDyGZHjku25 RJCgJB8pY2foPOAaNFRrnu IbgGSip7PrZLKvxOO1qZXx RO8IZaTDt32dRJXxLBDXmz EtHNBsyBlotUO9tpY6pM3d LiBUaGUgRkRBIGhhcyBkZX Genc0bgqJgXNTzKZOsv3Um rCSmnUZzqsFcV1Nny3TzUQ Lnka53YVgcxBMfzk78YH2c U7Rhn8SzaC7tZUiyIMZlc6 WjmMDtvHRrMYNpd5OjO8ha yilmWXhipLUrpX9uQDFbKR y8LIDxb7ShMPPzh4UqIsTa slIiKDKqKRJaUAQkyS52XB A3aLtuyDqmmdOlUI6fAFUf rhEyNIGePEXdbB3gUNzgcc ZjVRMmugE8n2L7FDnlZPGq rfIkDlmkYYX3lrIwfrG2fZ WhY4eurcgrFXeaAKBpf3Qb wJ4mkENOdKCad8HhzKCxuN RFmTRcXU9pmiBbTP6aSFB2 ODggKENMSUEtODgpIGFzIH G8GMhcVdntBPF4lmLoIXQq j1WaEXvpX6foU34zwGvfjV z9yEEqpQdzmTWyrYOmWSFw kyA4b3B3CERwk3SrhpocGG BsYWluXGYyXGZzMjJcbGFu ZzEwMzNcaGljaFxmMlxkYm YdPBWdLDjsU0xvHaLuCqBe LuguGPZ6iR== [facility] [id number] 16:47:26 Test Item Value Reference Range Interpretation Comments Case Report (test code Surgical Pathology = 104) Report Case: [id number] Authorizing Provider: Nathaniel Dooley MD Collected: 02/26/2022 04:38 PM Ordering Location: [address] Received: 02/27/2022 07:57 AM Service Pathologist: Gene Carlton MD Specimen: Cervix DIAGNOSIS (test code = [id number] 3220) FuZzEwMzNcZnRuYmpcdWMx IHtccnRmMVxlcGljOTYwMl xtysCiZGHvzBJeW9Peuaac VYeoPS8qPX7kwLskiSVtdB QbWXGsBpSvk9ech280zDTg j3inLGOHixvjtPa0cStuI6 9zc6J1IboaK39gaOCzCTG0 NDHbRATonOTiXMSlVYR2UF UwlWXgH5wdHUJfLV2vwucc QYsiJMfeZNOitWX3SBIkvP UcU6HbRJUxIOeqUSZsjlx0 RsMjJm8dtAEfqXgwNCitXX IrHOMySFxaLKHrDdOcO9AX WceCSCNYNMFDBDKFGY4ID7 x4XLWvdwz3FNWmWYKXVKSG DqQLE4sLQGLTFyBQLCAXZA UnO8AkC9GXEX0USCIcM1XJ HHJMGHMQWF4QQLCyHBPkVO Tlz57tIL87FEosENK6a5ti dGYxXHNzdGUxODAwMFxhbn NpXGRlZmxhbmcxMDMzXGZ0 bmJqXHVjMVxkZWZmMHtcZm 5khEHwjRqnAhQyJEAsb6wf wpUBtaauxQk6t0zjWPCnRu Z8kRGoUNhyR2zouvCnuARp QEYcLNq5bB23EHCxiH6eoC DfHRtuolEdMiS2CJnmXFTm QdX5PVDxeBDkTHEaA3sgOI QwXGdyZWVuMFxibHVlMCA7 rEzvs1M9zBOwhDNrmZdmEc TfVyIoNtAAt3JdRPm9cUmp P3YeCJEqNaC9sXGrAARiCP txRSWvLHIuxuU6rT92GTtr wrS3bEGpb3Mxd11eu008sJ 0mcITaWWY7ITQuMGVvnULu WMHiWCJ2VWEspJWeY6eyJO KsXT6opfasXXoeZRckJPUv fQL9FXZonPLfQ6XbJTKcFK mfMQChbkf8CeHvBr2kvVCu fCybIUacc2qbq3kbsAMlAa e1WBOcSxUkAtmzZXroy1Aq g9jtXNIfqy4jYMW0xAPggJ zft3H7pGPoFZPumYBkOETy SL8hiQGpIYVczX5zkoqqRE BnYnJkcmhlYWRccGdicmRy Rq2ibTzoIFC6DLoyS5layQ 2oPgT0AKmuC6rvxO7hDOr1 FReoJUAmfRS5vgX6ZFWlsP OlX8YrdZ0mXJJuYV5hzbb0 v2rfGNW9XBbuSESkXvI2be S1VNAlvCImBNCxnYjhYSfj b159XQE5DlOiKWFzt3XeB7 KktZdeT14iqEuzH15tUWMc aElvhS7yhPsciH4uQuDpJq HeFSxieWwdGM5vANMgI4xl oZLuLICzKTPxK8lmEzZxrY 8piLlpNHrkbyCgMLUlYip7 GSWsiFErHQLfZfn3RAIsEO UfV89xqlemVUF0oT5eg6lb i2YbBGeyPMF5EVEor59jQS wblgW4TYdiBk67RGbiQER5 NEieHOC8rU== COMMENT (test code = [id number] 9900) Ayj2cok8UdaCEjvVBsGLqm pGHgczQbcu47rXJ8zX27YV 6qPWPhJpH9RBIklvH1Gom9 NKYcTOOgdRXlZ405e0ktg3 njecCbhLN5kNucUMXytqrg IfT7SKsrSMZrigdoDXk9ES cdGSYsbDC2YDLyxTUdY4Zt DYSnBD0wqvu8WYV2ZVolYI VqAtX1JGCbjYYgGUHjvKkh LQopy236LFQ3FmTbCKFynl QdvDajoN9nViVlHCCUpWXl qZB5pOSkyLcyEEkaa0Lprb luo8PlG5PnstjoBQwclDEx qzMpjuRav3PgWF0dVXqjJQ N6eL0kZAPmh3nwEDDtG5Ne TP4rY5Mtz8mlQBPcj7pqne FyQSL7gBLcHYGhkdLcdxIs GBX2nPBxqOGlxDHxpIJvpG Bav9GxwXS4trQuiuXjoBX2 SIOlh1WjgY60SVVox22iFF Bhcn0= CPT Code(s) (test code a2krnLGhRWPfuHF7EaAuUJ = 3357) Rtd0rcl4DfaJYtsCZhGAbc vXBnfnDkug91aZX5qG15XG 7oCJDsIbH7ZYDmdiB9Vmd4 JADtEYAbhWUsI347o0pqx2 mhefTakUI8aQnbNHXanknh TnX8NRvuEPIubrxrYBg9XV dcTQOryCB0NOPiuIItT8Ym KBRzFB5jhyi0KIY8CHfnOO YvWiM6URRxvHIdZPVlbGct CBhmd219GSS7MrWmDTBzrj OdmIwohY5kFgIuVFE0WDAw NVxwYXJ9 CLINICAL HISTORY (test o0fipCWcRXAjvPF1OdMrLY code = 3356) Sxg7mnf2BldVTrvTIpQJjv eKSmihQfza38tVN8gZ10IV 9eOEGdHqW0XUVyzyR7Cmj0 WOQsKZFruVFuI555y9kpl9 mxciHmiPM3zEquPOWjxmbp YvQ3LTdcFZQaspaxEOw2RQ xkXKHkyUD7RHJdyUTvX8Qs RMEeFE5clqk7QBG4XArtCH FmDgG1TSQkyTExBRDnlXze MOubx689YOX3FyKnNZOknm YgnRjmpL3jUnJgIAFcQWN2 Op1aIQ8sRD5siMKrbttmpm DzgiHsqoRpfqEfsbY4KPZa s0i8pPQEFLp7YO3zSGxLFI DxhsTfAvaizE1etAgstHDp XD83vQ6ojSAhw1RhhOFmCO wagFhtudLkvyNsYXdhvP4y qNzfFZ5lCiW5KKxxggOcQD QsYFSxoS0sACLdu9nrqdCz YmRvbWluYWwgcGFpbiwgU0 0HDUMruAvtyKtxPKCjZY2q w3TapdVsJCNiIIJnP6HoEM Ziz4KoXTP0cdAgWBWvYPR3 mBP8t19zkWeeRHHySL0iTQ NqAKgwPXYoHFnuTT2oBKLk vbQaB5EcVN9cn0Fli7i+b2 5lcE7jD6gmA8pxHFY5 GROSS DESCRIPTION (test q2bldITkPFJohYDINMLdW7 code = [id number]) ujujFdXSYquNYzF3Khjfvt HTpvLD0iLK7gxVygzDKmqP VkBD5MPIDgQiUfGIEboUTm ofJnSlQeJWNwoCVpfMS2XE BhRF4pdmhyCRzgYNgyXBZs ypD6KZDngYGjV5WtAJSwVM 8lrddlHYS7RHnwkC2hxwSX TqkmRo5ukRLjvNvfPiFrVc NoYXJzZXQwXGZuaWwgQXJp RHc9aF3YFtdoJHN9LSFALm exHJNgYT4Yk7qxWOByhTPx VTT8CBhsjWUjCLZkZXJoAZ x4KBYpJPuidMNkFB6vqQgk JduehWupt5AioLAoOIcxZR IwODBuUPkdOQApLB5PYrXw LEG7GYz4YLUcKOg1AIu6IT 7BUqUaNPSkJYL8GHH3IwTf JZs6JFoyEV2LPBG0RIE7LE pqIcX1HQY8PjJxAIXyAbYk XGYgQXJpYWwgXFxmbCBcXG 8izVvpjTAudmKQFxGSSPM8 aXguXHBhciANClxlcGljTm VzdERvYzEgDQpcbHRycGFy XGxpbjBccmluMCANClxsdH LnwByfxwJaNMEmQ5FbmbFb BFllHJExew4mdIpfRPaoDv ZtLRPxh3x6sQK5sNEsuTJ6 bOYbeZmiJuVvZC7ewRHdAY 2kMYgpUQdpibTcv1RlSP75 bWJlciBhbmQgImNlcnZpeC IgaXMgYSAwLjUgeCAwLjMg eHIyWgDbY51heLYhBTgmPV dsx27dcLE0dDTvoMWtTlKe H55kucLjJICikAvtDLU0oS YcJVNed14jTDD2Bt3iiVQa UXOnyeQ0q6BqNBitLWAeCb ynCFLdUMzzkKKfYT3SC8cl lGCaWQZZkgA8snhtAHtVQN JGXRPpEGFRUPdvvPralL8c QVlmtL7tGX9RTUMtOYduXT CyhHHBCDE8JQ3mLYhgvRUf nwevRVMhH5KvG4XmreUkxH WyRSPdtgFmp7anIOK8MFJy gQFjrUNcWyVoJpgjBPF6YT mfi6vmXUV1OHLdlFKzfPKj GPfbBwRzKavvLLMhP1AyS9 MpyaC6NMm6 MICROSCOPIC DESCRIPTION f6pouABnYYDvgNA3ViWuXC (test code = 3371) Tym4pif9EbdJVzyHEgGYlc sWSobrCsdm01lBO4mD64ND 7gCOEzOeA0CPGwddO2Aiw0 XAVwODJgaEDdU458t0fph3 mlxnKgdQO4ePcwTIFjddjs FpG2CXydRTTnmsqbNJv0XQ zwDBNjoOK5SCNzqDWjK6Ou BDUkUG2wrnx0MEC6ANmmDT ZfLxY6YQUxfHWaNXPlfOmg VDoxn586KKU9RfUpHCChct NtsChriS2lGiGoIOOQTNYs u7VjMKYaLLMddp6= SPECIAL STUDIES (test o2kehGGnBKMtz8rnVRDwmL code = 3376) FuZzEwMzNcZnRuYmpcdWMx SXdchoFaDCohj5JuV2SiUh AwMFxhbnNpXGRlZmxhbmcx TTBhNQI7ygWuTHJcOZjqJU TiSNhdYl6qdSSamMafIxWw EUIyd5cujuLAovhduLt7j9 bvAKEiDqL1rQBvXSbeD7lj mePmeEBwP0KdrNCxmTv4v9 yrPeItYhF2qCEwQAznD7in nwBymVWmJCDuEOw8pE63HZ PljQ0pbWJwYLjuxaRiAwN2 XWqzLHExYlY9ZUSffGUhUA EqV5scDHNmDGavAXNhMXnj kHPuDGL6iYxjn1K9oOEnqI NnwSfoTqGsMkJsXsVBb4Qf UIh1xPcjL3FfLPImTrH3cO QgUGFyYWdyYXBoIEZvbnQ7 uOkyhpCwt14tuROoYXChQB MvWjXelWojWXBjNGZOf8Ju aBjeRJD3wSm7xEvdZbxkGR C3Bep2UI5ptk20xgs5zQao EUEkxxbnHuV1YLvlOHGymr qmTZg9VVhxHQVfkGR7GLQt vLEzC8WlEHQcJT6pmir7JJ K2PUqsRMOwOuV2TZTsiTYv FFZyzSbmAVwhb060WNJ4Hn NcRK9dV8Aqy4P7uG6rlFQb OWPjgISnDmMiIERafq9jjR UuWOkhe0OgOIQ5kgG3uNVp lKBkSVBkKQ21Ebviu8NeQr fxq9UxR75bpVO0OVedf5ys PR7sGyD0teYvZObte3zyrS 0iReV2IDcmEU8nGR5vNVZl zR7ehfhrUWZmOcGtqbvjKS PwsGlrebQjOv3zoXzaMZJ9 SVxwP7smtU0yYnK7SHxoW1 gwsN4fBWw1DSafeYA0HBPi fT6nLW6yptyke1qpTRaoNM dqZZHvdsD1acM4ULRyhVFs W5YsrR4kNQOtWK2vwfnzj9 apBDY1FQzgFAMiZZQ0EjDp PKLlm9Awhks6LlFpc4VdmX BoAVliF84dp399UVWtsvPr H1dipAVzcpgapOLyidegJW ivhyZ5IWPfYNLwOUqfMZLd XGZzMjJcbGFuZzEwMzNcaG ljaFxmMVxkYmNoXGYxXGxv E3rrMrMgL1ChOGEoNgGeZF zkFRdegZCxcIEexCK9cM1x GQ3qETRlcGCyJ7LyIEIrgr XmzBUrXDG2pXVanTFnIK5y NFpaaDMkr1eow5QyL2jzhC ohaCH6KK4eOBTiRPUhYSej h3BnuP7hEpxhdAAxhpnmWQ xmczIyXGxhbmcxMDMzXGhp K7hdEtEdJWNvcWxpNFtfj9 NoXGYxXGNmMlxmczIyXGx0 cmNoXHBhclxwYXJccGxhaW 5aIpDmVyQlVqfhDE2mNSVr P3wrrMUzWXYyLAWoS4yuLm GuqX8zsPrtLZtdZjFfPxJl RvJZn463rr7uTHHnnZBbco RFmIWoxR1mCMgaOXwtAZpz xAWlVUcgh6cnVWDfy6z6nV XkMBOdarOuj6kbKVngufHp GMUuoGSxyOGeOBAuj24vDM jhfKnmsQbqLQYtn7SonLyn b0GvQgAtSVivg1SmL10alJ JvbCBzbGlkZXMgcnVuIGFs f79hf8foIJDaGxJ9vSWcrH X6yMZtkWGsu0RzhGfbYAEb p2ieMOJete6glrrqpMOcg1 MhjG2pdpdhCUrshXIxijVf XZDpm6r9lRDcKVJzWNRsMK xlxGi5DFFqc683jd3nikT0 oDOzEZS0FDayYRLlXBHjim UgZXZhbHVhdGVkXHBsYWlu XGYxXGZzMjJcbGFuZzEwMz NcaGljaFxmMVxkYmNoXGYx ZRhdJ0yzXrIqV9AxDZEdBl TdoILsT6yftIIkQBRdPJay XGYxXGZzMjJcbGFuZzEwMz NcaGljaFxmMVxkYmNoXGYx FCxlU5lsNsQhH6FtNTDiXn IgIFxwbGFpblxmMVxmczIy LPlrobgeNEXkNMabW3foVs QzWBFtgBmiUXnit1SkZWAe HPDzAgnjbeGiKIw8jfGxIX BhclxwbGFpblxmMVxmczIy YCmfeaapYWUhHYjqF4oaRu OxBLTlzWpiKGinr3PaSMFa XGNmMlxmczIyIEltbXVub2 tra9AgA9ndzZuotIT9XKVc M3amyRPyhHI7ROP6fY5bWI txlhPqCKVwp9OoGHBwETDa PyD9fV0cCXR0SrDSqCliYA BsYWluXGYxXGZzMjJcbGFu ZzEwMzNcaGljaFxmMVxkYm QfNUNeFJbhH4puDlSpD8Rd PZDgYbJdlIbtFPqxFVe4Sl xwbGFpblxmMVxmczIyXGxh baywFICtHAcpQ1epEfCfFA BmmIxmSNtzd9CtNFUtCUEb MlxmczIyIHMgTWVkaWNhbC RDXA08MAAvAZNobVdqeG5n uVLNJEAaasE2w8C5BRicEM MuRSc3MWrbkvRqTZHwpF4o GEIuDP5wZUa4ihTbMGPnj0 WdAI6nGNJmzZWeMJT6PGSg y3QgX3Dqj5AlNECcLDAuwy 6bjmZeShGTbSShWEEtiy45 YRAuHF6aI2foYXUyUYGhbx MaiRRox3DcEKUrrBQ3fZVp KB0KZgLFe98jVNQwOKRLuk GeNMYxzPhogUN1gpV6uK7j LiBUaGUgRkRBIGhhcyBkZX Bvur9gnfHnGESsNAAbq9Vs pSLziSDpdsLyM5Sky8RxEE Msyb96TQrdvBFdlu36JQ4h U2Qmm7AmwR5mPRuoQAJae6 TbyQHvqJIvJNEfj6YsU6jy ffczIVahmVPwkE1lGYCbEO b2TDXxz4IwTQVgv0BfYfWb ejIzFHXfGKScPRMhiA73HM P2cXkdiZtytfKhFA7wGGSq jwTbKAAcUZLvqA6kLOcehm IaMLEaovA2z5H5KDdjBQYc ivHoHjjeUBI9fxObswS2cM RuB3frxbkqKBgjJKUcf3Tw fI5otLIRqNZkm1IbtNEwdF BXpSSkSI9pxhWvVL9xFPY1 ODggKENMSUEtODgpIGFzIH P7LBfaDwteXOI8yfTdJFYs d8WkLBtiK0igW21nlDjpnY e1zLPmqKmnvYWaiZExQVQh mpC0i1N0DHMmn0BkciqfJW BsYWluXGYyXGZzMjJcbGFu ZzEwMzNcaGljaFxmMlxkYm MaEZQzRIlpI7lxSwOdMlBq NlxvZFG6yH== [facility] [id number] 16:47:26 Test Item Value Reference Range Interpretation Comments Case Report (test code Surgical Pathology = 104) Report Case: [id number] Authorizing Provider: Nathaniel Dooley MD Collected: 02/26/2022 04:38 PM Ordering Location: [address] Received: 02/27/2022 07:57 AM Service Pathologist: Gene Carlton MD Specimen: Cervix DIAGNOSIS (test code = [id number] 3220) FuZzEwMzNcZnRuYmpcdWMx IHtccnRmMVxlcGljOTYwMl ycqaQdVVLjgZJnN7Ucluiq XFmrVX3gIE1wqIycgARyqT PwIQNiMpLqe4ngf767lUDm h6rzZCZGhyajxIj5eLopK3 8ed3S1LvokY66exVKbUSC2 YUQfMWDqxKQqGMVmMOQ0AE BtmRNrN0fzXBKhEE3culmh NQlrAHklQWOcbRH2LGRcnP AgA5ZzRCIoUZmiPRWcjyj3 XdLeAn9yfDPwfOpxBCepSD RlGDJdHWbwCQFaOdWyO1GF LwdCFAQQHZNVALZFPG7XI0 o0QPVplzb4TBNeZYFAVMWU MlQZT3sFEJZWLzJPQXWFIX SmS8WsU5PBRY6KYBHpP9NW XVRUEUJKAP3XCBFsLMWhBB Cqw48dXV41GQzpEVU6e8hm dGYxXHNzdGUxODAwMFxhbn NpXGRlZmxhbmcxMDMzXGZ0 bmJqXHVjMVxkZWZmMHtcZm 9hzTUttCrxNaYjLKTnd4bz kuBUqlpgpPw9x6msGIMnFh K7sXAyFDfeC3tcytJknGEz ZJEgPAy3dS60LRPnoA2xjT LfFMcpacGpEdF2INtzYUDp OhL0ZORdxHLhRGRgH1ovIM QwXGdyZWVuMFxibHVlMCA7 yOhgh4R9fTYcsRQkpOwtRl ZlBsEzSlDOg7BoNZx4sCav S8CcWMVnFjY1qMPbUSWbBM ofKUPbYEEzfeF0fZ58NZpi avA4kOIjd1Unj37sb119tV 1ngHGsGZP8WOFgHPWipSFi YBMfIXM6AJAfaSBcS6lwZD OmJQ3uectmIYleAXfpKOSy wQL0SXAucCByL2KzTGEuVN ezBTLpjtr7DtRxFo9nfWCd oVqqQScob0zzq9ukuHElBp v1COCmXeXnIeoyMIezh4Nq f1enSSEcba5cQXD1oCUrfX krw6S6bYTaCVXlrZOpQECz NK1rkEHfBFKqtO0cywtiMC BnYnJkcmhlYWRccGdicmRy Md2jhUvhKDJ1MCfjG7jbkD 0pUvQ2YBgqQ6yvsI6fXXk9 CDmhGWWmkCD9tuP5KJHxzZ ChK9IpmI5nBMSpJA5xhzb4 v1jlASZ5HKteZXXyAnF4ku K0XIAraUBfUYQqsUvxPDlz p306UUN7DiGyTJKuh8OnB7 ZnzZzvB67gmJmdJ03nJADu hSbusD9jsHrluI2nFhTlAb KfTTaxdShrVT9yHVLnW9cc hSOfECMbDBUiQ5ytCaQytJ 3wlDoaLPpeupRyEVUpEuq5 SSLihOFcPOPeCae9KGPkRK QeH15ungotHFY4rS3wc9wl t8VnQHnlQIE0NIDti97eJL moroY5RCmlUa85CUanTPX5 HQvrZNT0vY== COMMENT (test code = p3qahYBuZKWtiMO6UhIsAQ 3353) Fjp2kpz1TjbRBprAHlTWyq fCInklKqnf21yAD4sV39EL 6pCSMsKhF1KMQwhqT3Icx3 EXHhOJAabPTpH225o6cvm6 exlyWfpUO0yQrpJTJjzlvd StE1YXtcTDHcemocDWw8IF njFKKggCU9HMBopLFwE6Jk GBNwJN8csrm3WOA2QHmuNO DyWaA8UUJbfAXjVWLmeLkb NPedf364DYJ5UoNuESOydh TxoNtyfE5hBoKoHPLXcHIb oKJ1iLWfvWnqVWkxt7Kqvb ixk7JqU3GobwsgIOjxjHNt lhQqfrWvt3NhLY5pPSdoKE J4aM6jHONls4ulUILwS5Mn JJ0vX3Crc4ybBIIgf9vdvf LpJZZ4nFJbWNNthrNgrhRw JTP7hTSyqWArsHDzuFXjnF Tdc4FtvSR3flOprtEryGH7 VBWlm8NtjZ32VMYra22pYS Bhcn0= CPT Code(s) (test code o2arjWYzMLSjvEZ4VyKgXR = 3356) Oej5wwz3LvnOChdMWqFAnd aNLomlZgyz63mOM7uD98XU 5lCBIuWrK9CCSxypS2Nqm4 MLUmOMAdtFKqY550c0rsb8 cygnJsoNK8xVfdXIJmyigp SoO3XQfwUENnqgwgUOq5ZM rySQFiqXP4MHDraHLxH3Zg OGQuGG5vjiv5SHN9AKcmBA FiZfZ7JKOauFTvUKNeyDbd RModh836UPH3SfOlXPEvah RyvCrxpN2aAnIcGGE3NUOs NVxwYXJ9 CLINICAL HISTORY (test l7cbmTNtCAQtpTW1WoKsAC code = 3356) Vid7ggv5PczDAwmEVcVWsn cNYrmhWzrb72zAS7fU12UW 7rCVQhFaB1CYSgkmC4Oxg4 JELnFRLlvBAzJ800w9xqz0 glqgTzkBM9mUkuWSGzejqk IoM9HNzeOGFqjxasRTz8PB ikHWCghYH4AJLjyVWwF7Mz LIHmYD5jhzf5PBB0SKlvCO IjUtH2JTZydIZfKVOnvMis HPtdv211KEX3ZlJkOPBkxf UfyNtyiH2dHyAuKBWmXHA3 Ab6kWD0lJH2yyRAatkcbyc OzgsFmczLkuiTciwH7WGJy j1c9jATHTEw1MF5oTTfDKD XmukHjLjxisM6jxNnfxNVc XO87jP5dgUQvx7YspYShYW zweUwvezDsljJeWKwcvW8q yFknOM5xXtK7WHioohJtNX ThJCSpoJ6zCMKzj2tqkxQc YmRvbWluYWwgcGFpbiwgU0 1QFVSbkAmulIjvELBuTM5v w6UcloBzESTqIZPfZ9VhHH Ibv9XdNBB9weOxUCPxQSL4 xYJ1d18zgPdeHXPmXS5zWL JoHXykPHMxVTrfUX0nROTl pxCnH1PmYF0ur2Xkb8s+b2 5iyD1bC8pbP2qtFSP7 GROSS DESCRIPTION (test n5qemELxPTCirPEFQIRbV0 code = [id number]) mrgiMpGQNvyQZrU6Xsrtsj LSyqGD1pDH2jdHtnbSFwbS AvYQ7YCTAdSqDgPTUqdALk eiDhBwCeAGEenQYwzVY6WO HlCP4floisIWijAMrlGFCr fmX8IASsuVBxC2SiVIOoBT 0vnpeiZUH5JWbhdR4kdeGG DrfwQf3kgFJtcIvqKjRzZi NoYXJzZXQwXGZuaWwgQXJp WNk8lV8LUfmxODS8PDBMFc onPCBlJF5Nw5tyQOBqtIPy XQC5YVtqeLCjMSInACJwRW i2MPEaNNvinBEdQA4aiFtu PtthsGxvz7HjgJUlLNmdRL DyPEFyQFxmEIMkWA1RSbMf MYS1ZIe6JKJbWZa7WLs8RP 1KCmQrLICyHQQ3IMM9TsAq GPc3QLgiTA3LIGK4WBU1MB pvXzK6FWF9UoZwBHElYsLk XGYgQXJpYWwgXFxmbCBcXG 5lhImmxBApsuFPRgITIXH0 aXguXHBhciANClxlcGljTm VzdERvYzEgDQpcbHRycGFy XGxpbjBccmluMCANClxsdH RqpLaehzXkBHBvH1WxbrNf QRvvSNUcuj9faExgJEocLn MeGUXwh0l0zXJ6iYIrwZW1 jMIjxJfdVoRhBP7rrMTjYU 6hKHhuRUlnprDjv3YgJC10 bWJlciBhbmQgImNlcnZpeC IgaXMgYSAwLjUgeCAwLjMg bGTsUbCzA93xkOJbSWeeRN sbm19moKY7uUCutQFjWtUz Y83fpePxRVDrdIsmUJN7oN TeOUKpr41sIHE1Lv0tqJOv GTCjqnQ8f3DuHJktEKMpAt saTNFeARqllZJfYR0XI8yc nEFzLOKGhqZ8yyouEQnEOO KMZKWmZTCACKocnKssrS8a XDcgnA9mUA4JARJwHJbtBV XqdYIYBJW0IH7tKKzcmPBz xuhcXBOmU1NlS1MeuxQpiH CsCOHlgsCdf9ptYDQ9OBMg eYCkjYZrUuPpNcrxWQK3NW kmg7buCFE4CGDulVPkbFGf SBgmHtAgAwyoWDNiK1NiE4 KeudM3FJx1 MICROSCOPIC DESCRIPTION b2lviZJhRSVopGC8ImEcNT (test code = 3371) Huj9yxf5WujBMvqIXaNJxu gNBhtzRblt59gOC4xJ45QT 2pZLRnUqV4YMKbkdT8Bau7 AMAkRFMnfGGeZ085l1ivb9 tjylRwvEC0kJjiWCNxnmgm FkF7HZwrVAUpvdanISf2DS zzLCIbhOF2ONDwbUWgK8Dx DIHjDP8fdbw1NAR5NYseSS DyInH3LCDxnRDlEKTnfSpt HUfca055NWM8MfXrIIAotb ZafCkybI6cHwSpXMTQQTHd m7SaEKAcNMYtbr6= SPECIAL STUDIES (test p7gqtYNvROOvj6peGSDvaY code = 3376) FuZzEwMzNcZnRuYmpcdWMx ZVgujhQlTCbdt5UgI4UiCg AwMFxhbnNpXGRlZmxhbmcx BTBbLBO4zzLpJSVdRZyjCO NwAIvxTh0tjGSipTrfZzIs NVDjh2cqghARqcibsJb5g8 bnWKOrFgS2kRVzQNwhI4hi wgOgcXFgN6CfaWYcaLx7w7 fxAjSbVeG5zCFvXSofS1tn jkXbnHMcWRVdJXk8jP73FJ MqqM7hkGHkHWigadGuNjE9 JArdUKBqVgR6WRAvnKUnGK XxR2zeWOPjXHxuKLAaJUfz qIPlNLC7lRonr9Y0kVAdmT RynEipOkAxZqHqFlVZc9Ec CQu2oNsqW5PxHVKjVvK1fE QgUGFyYWdyYXBoIEZvbnQ7 mZzkpuDdq42jiTMzHCAoDO MpVjUksNybKPPcBCPOw5Rt qAsfUQQ0qQg9mQxiEubwGP Y5Grq6ZT3cfo85pdl0jLja VKNqeoavQyG8SGdbTOJedc vqJYg9FVnlICKelYP4YDLx uUHvT5NwKETfFL9tjxl7ZY X4DYprAYJiOdD6TEBlwUBd DGMdeHncBEfxi586ASA0Ox BnOD6tE4Bca0K9bJ1iiQYk RDCfeXQkDlLdEQBaxg4yiT PdRPukh8OpGLX6gjN7uGFq dPYhDXPfZO81Ljbag9PvDc uao8WtS62meXF4WExtn4lw RE6mNdI8pdGeWXyum0qpdJ 1aYdB9SPsiVL0bON0sOKZf nJ8cxcvgZLDsPsWmaflcXU XhtTnmmkPxPq3rzZytEYB3 MKweN5ctmE4pJtU4VTrkR4 sceR7zUAd1MSxwlES4YMFy sT9eXQ6ixovyk1zaJUjqDH cxKICinlI4nzQ2JQCfhXSk R5QnhT3qGMMjKD9qcequl3 vsOEL3HVqlFHLyJMC2QwZr LKKnt5Qpnjx2HjLto8BjzG RjNVjhP15cs690YFVuqgSo X2xiqBKiwdzamYRmhgkrWH nexiP5FUAsDQUwEKzwZGUe XGZzMjJcbGFuZzEwMzNcaG ljaFxmMVxkYmNoXGYxXGxv T5ckKuTmW1ZaUAMqFjWgXY ucRGircNCzmELvaET1eE8f BH5jSZHgaAFaV9YwPPHmbn JuaCPcWAG1xPJzeGLdWX1g OBxclZXll8leu8AnT7vfjO mjyJN7EZ3lICRdCNFbFRbw t9IlbZ7lVxassMMtalzfAO xmczIyXGxhbmcxMDMzXGhp J3yrYeFtCVOvrIwrEPgyo7 NoXGYxXGNmMlxmczIyXGx0 cmNoXHBhclxwYXJccGxhaW 1vLpVjShLoAnitEF8oIJQt Z5okvUUnZTQiIGWjR8jsSa GbtY3cjXjwRWjsXqOoEaJz VnXDf683te8hLURvoOPdez YLtVDipU3lMQtoQWsvJNca yVHfZKena7ulEWJoh4f8nS JnMDUnqqLfv1okCVvrybPi OAGtsBMoqKMiVVBvl12wOA jjcBtesBzmBREru3ZloZyy g7MuSwWqMJnkk4UmB59cvI JvbCBzbGlkZXMgcnVuIGFs v72pp2anCQQuSxZ9eVCfoK A6vLFhoEMyw6LieLsqOAOr w8vdWFLklh6tmfoovKKpu6 VhaO0douxoSKtlxLKiccLh ERDsi6c5nEAwIJNwLZNmZO onoPf7VPAda536xc6ngpP0 zKWnNQK3AEdzSOJbLRJljy UgZXZhbHVhdGVkXHBsYWlu XGYxXGZzMjJcbGFuZzEwMz NcaGljaFxmMVxkYmNoXGYx JBteD6tgDbFeM8WhCLDaDm XveNMmM4bakHVxMCFoSSwy XGYxXGZzMjJcbGFuZzEwMz NcaGljaFxmMVxkYmNoXGYx FDgxH3ugVnKgQ1HwPAYnKb IgIFxwbGFpblxmMVxmczIy INhpmslaWHKrRXicR6heHk XiZBGscNfgDEqzm3RoFHFj OOOzQltivqYgGIc0hpIlOS BhclxwbGFpblxmMVxmczIy KLunwlhnPPRoOQjhY7czPv CmHFOeaLegFHzrt6CqMHNg XGNmMlxmczIyIEltbXVub2 ggt6NwT0wksJjnuBU2MQNe E0nvaSHkfMY6KUN5rI4tVX oloiWsOPRxy0KdTJJxWSQl KbI9uI0vTXN1JsOAkZlrVM BsYWluXGYxXGZzMjJcbGFu ZzEwMzNcaGljaFxmMVxkYm TmDZEaXJamN6swSqIyE0Kr CUPfFnSiaGsmGKkpVEt8Mw xwbGFpblxmMVxmczIyXGxh vtbvUKSmMHfdC8lvMsHoQI IgpWqmDCwcp7UuBCSoBZPh MlxmczIyIHMgTWVkaWNhbC IKUX14RWSxOOAfqXsqdS1y tWRCAOEsnwJ7n1C0UAtlLM NpYEo4MPdetePkJMAgnV3w RIKcCJ5dUWd9fdTlGZXrm8 FjDC8zZAQosQOwWXT9EFVi s3CeP5Els5NuQABxIEPzkj 7uhgStDtTEqOPoZFHeob44 LLDjFN7fL7jcCQDmMZWwvz GwvQHis9DnBXWmlZS6bLVu BZ0HHwQEo17hCQHlDVAPqs KlRQKomEsonRA7ifZ0zN8j LiBUaGUgRkRBIGhhcyBkZX Erxm1savZmEMUvWKUnc3Of sIBmaBEjieVlG0Vti1JrPD Laur69POnjkRTxmx10LX3h T7Rft9RwgK5vKZcuWUUoq9 OfxQNqoYPoONZzs7GbY6tt qdhrVHygePXmnE5sJKSsTT e7BSBuc8WlBZCeh0MwGdEw grVnAKBrCWMzARTrnO23YD L6rMracYqwlxGmIF6fYMDn fvAvILBqYSPjoX5gKSpprt WcWEBnstB1t9S6WDgtBEQx ssBwQfaxAWW1yaApayR6gC XmO3gnvukdLNitKWQuw1Ho wZ3llFEYgSRkh2ZweMPjiZ MXdKQrND0afiJeES1rTEM1 ODggKENMSUEtODgpIGFzIH X9OIgtVmitOLF2qoYePOQc f4UkJYytJ1dxQ17ssCqgjZ f4bFBpgBzhaAFajDNiKSVd yaB9h0K6HOMuu4UnpscfES BsYWluXGYyXGZzMjJcbGFu ZzEwMzNcaGljaFxmMlxkYm BfUPVdRNuzQ1zdZqKwPgPc LpxjYSV9cI== [facility] [id number] 16:47:26 Test Item Value Reference Range Interpretation Comments Case Report (test code Surgical Pathology = 104) Report Case: [id number] Authorizing Provider: Nathaniel Dooley MD Collected: 02/26/2022 04:38 PM Ordering Location: [address] Received: 02/27/2022 07:57 AM Service Pathologist: Gene Carlton MD Specimen: Cervix DIAGNOSIS (test code = [id number] 3220) FuZzEwMzNcZnRuYmpcdWMx IHtccnRmMVxlcGljOTYwMl xgqrIjYMAurFHhI0Sfhagc GVaaSM8hHF9jlPjcpXFrbD UbLBQgRmBye0msx512sZKn s7vbQTICdpmeaPm9eBywX2 2xs5G6HwtnA67odAWwWHP0 XNIlDSMbkCHdRZStJJR0YI LvmTYfW0dfGCCgKH4atudf SSsrPGmoPFTfaWQ1QFAoeW IkR0EfWMGhOHypHMXcoai4 WcWiTi5qnLUbsJecVWiiUO HvHNDgEUozXQSuVgRjL2WK GaiXEVIGQANZLLVLMA1MV5 e4TCGtgsr4HEReKOSGQWOT VhIHE8gOOHHTDrORKBUREM HcD8UmZ3DVNA0AVEKbQ8HJ FIUYHYQADR7CDRFpYCLuLA Ulf04xAK13QFdoWPU6c2hb dGYxXHNzdGUxODAwMFxhbn NpXGRlZmxhbmcxMDMzXGZ0 bmJqXHVjMVxkZWZmMHtcZm 7qqCStgWslEfTfTLPic9yz zvJYkhhqhFn7w3bwEMUlQg G3dNNaZJikJ7qinxTtzQMw IVRrEPa6nT46DNNflP2stY MgEEybvzNvBsU0YQpwWWQx YgB0EWCziKXzCWKkJ9grFY QwXGdyZWVuMFxibHVlMCA7 vGsfp0J3jLYevCScpMrgGb JcPnZnYgZPy8CqAQh1pZlq L8QdNCUuXmV5rLKnLFCjXA jbGZZxQTXarfA4xZ09QEmz qyV2lBLcq0Uig80gr423oS 6uvTReYYP0IWPvOAUnmKIo GYEzHVV4NLFafTUfD9wgSO TbAU8riqdvXGvzPEmtNFSu eXF2BRQthOBkO2DgMTLtIE mfJXIgjyg2LkNhCb9ukOZj qBeaJUzgp0mou9vinGQzVq w4RHLyDrMiUdlxHDxgr8Bt g6iaAZWoll8qTAJ0hINjlR zwx1O0oSGvIVMhsWYkJDCh ZQ0miUQtXWXiaD3bxiqxDC BnYnJkcmhlYWRccGdicmRy Zq1vvQfoQYV2AOdxV9qjwZ 1nOgP0XKzlK3gwrS4hJMw7 YXmvANVebXW5tlZ7UQAzzF OkS0SxqP2rHAIqMA3iikk8 w1czXCZ4TBkvBYWyVzP7ez B5ZZZrbKBjCLRlyIjjBUlu w903BEP8TgOjFXFox3ImC7 AytOmhW46htLxjE57vFXFb eWowlS2cqDqezU1hFwXkHf UbYGvwiTngVN6tPCWaM1eu vYMhFRHqAJYiL0cdCnBguB 0yaGniWYazmgIqABKsHlz1 BUSzlGVuLMYmNkm2LZMhEC FqR93zcrymCBP4iF6wu8lu u4FpBTmoYJM2ANNkq29nIT leasY8GKjsPp79XDnoNYH1 ABhePYX4yV== COMMENT (test code = q0byrWWrXDFwsSV3MrLkYC 9388) Ekv2jtj2MjcZZlaMBvVItq sBUzwfSosw64dTC8bA70WU 6cWOCoWdF6DYQdidC4Sow9 OURfZXWkwJMyP704e1myz4 hvbyRtaEJ0eCngUEZavzcp YkE6QWpyLJMplfonXVc5TR dkWUEjkMB5IGXvmSVfI5If OEXyZT2xdaa8HNG3ZXufFP GvRlG3ZSHikNEoICQjaBin QAxeh703AIW1XaIpAQDvnl WjuEwvuQ7cTjUfWAOTdRIf lUV0ePMhgVowVVwrh1Ftns hit2QiL9LkvhxjJXltnYDc sfJlavFwh4HcYJ5aIIhrRT Z0jH0iZCOjh5jyQCQuG3Nj DN5iA8Qgj3niNJOqs5xigc JsOAU6xHVvKKIzjaNkjuPc VEX8sBWwoGVabMUmjGIryS Vtk3UmrOT9yoEbiuPfsZL7 LRRju0SygS46EKAos26gUR Bhcn0= CPT Code(s) (test code k2efyISlPTYmkWC6LyOqCJ = 3357) Koo5crb5RifZFnhASdUCio jVCqcgXuim19hEW1mM56XC 5lUHLtHeR7RGHgynD6Vbd7 CSTtOEIosIReF837t2cgy6 naoyKgqTX8wAazGDJhtfah PzP9NWmjCNNjrodhVAx8ZV kxFNWhuON9UXUbtAYiQ9Zy QEKdJN1rwdx3MFN0PJzlSB ZiFxP2ORYsiHAxNWOgtEua ZDcqf978OWJ0ClFyMBFiyo SdjHxzvP6hPrDdIXQ2HGIo NVxwYXJ9 CLINICAL HISTORY (test b1edxDAvSMHrwPL2UbZzPU code = 3356) Keh9skb0KnsKHuwPChHKpp lZTioaMdzg99pEF2oD44HB 8bAQXlMvW9KNSsnrA1Yji0 VTGjTPWugFVxX529o9aqq7 dohcYuwGE4cHlmPNFpfjfg VkP3MNbtDDFbqlorENh9EQ vcBGLaqAE0HPFkgUHrH0Ll EJGlBO4gafu1UTI9BMbmVZ VyWqU0OEWkhLWjOOAajMxi VHqjq964QUK1ObHaROZuql SjrOvdtJ4bVfKvBEDuTBN2 Sf8jJX3mQZ6txJTasarxzz RwprIjmbElvzBgtmR3ZAJk b9x6nBSAXFn8OP3hDTxVGR UkezCdBqyajZ4ovVdxeGPp YT38wI2esBMwz3SvhEQcFW qyjAfuywLgwfIaEOgwpR9d uThzTT2yWgN1MUfsxjCkJD ZnFLGmuT0wGPQoh9dtzvEp YmRvbWluYWwgcGFpbiwgU0 6ZSTDexGxnlNbpTYGoQQ0c g3GqpoCxILWjTMRfK2ZeAX Vke5IwSOY3yfEfIPShCSN2 fMV9b55vaYxoSWKeWY7vPW UsIRgtEZXmWYbbNJ8sDINq qcYrT0MrTM4bi0Joa7n+b2 8nvG1dV1luY0twGDH7 GROSS DESCRIPTION (test l1wamNTdMZDlcXWHKJJbZ7 code = [id number]) nksvZoHTOorLAvP2Qfkrff OFvlQF5sXJ3ltOlbtOOcxD ClND5QITSoTtUaJJCelBDu ofIwYcQoBZDwsOPsfHC9RZ NkJG4yubiiJAovRWrcKLYa ugE9BKGurKQvU1KiUNCuVX 2wrsxyVGR7FNdizX9hadII IxvfCt4pqXXrzMveShLtCv NoYXJzZXQwXGZuaWwgQXJp PDf7fR0YYrxzKPV6RGLHKh zvXMOvKB8Tr2gyYCBteLTd TKZ7GBcszZTtIAShQIAvGK z5BFEuBBqzeXWdIK5qcJza FdewsZdsp0WoiTAlUYhsDY CiEKSxOIsiAMDqWY8IUhVt AUK2KSi7WCEvTBr1SGj0OL 8PAyVwFUErSPN4LYA3CsNq LXz5FMqaPH8GRJT0YME6HQ stXaR6LWA3UwBgFDFqLhGf XGYgQXJpYWwgXFxmbCBcXG 4axKijdNNvfxNSUyCLSBQ2 aXguXHBhciANClxlcGljTm VzdERvYzEgDQpcbHRycGFy XGxpbjBccmluMCANClxsdH FjzCjvgvQyNBCvI4IpzoDn EHocYRHitv1urKwxNBsbAx ZfGJIkw0s5eDJ1aOWdqDX5 gJQhbLzsDkBwTH2wtKWzPY 0bZGvcBSyxipMsh9GeFZ72 bWJlciBhbmQgImNlcnZpeC IgaXMgYSAwLjUgeCAwLjMg tUDvMnMbN18wnMDiSTrmMU wcy61ltPD4vVBmrMRkVsUx W53bouNiRAVneYwbNYN2qT QtEUZcq54wOJK1Ov8obIVg XVIxxoO3l5FtIGchSHHpEf bnQIGpBBkswJHuNL7XO0xe xEWkUVMDjzG4rxvgEHbZDI SELOYrYNVKUJkolLrlgS0l MZtefV0pYI5PSIDpOHqtYK OmyWICQHO5GU5aPAlzzJEy qsbbJHYqZ5WiZ2YesgIbmW RhTMZptdCyl0bjKJI1IOAk aAGekBOhDdQaCjgyGZR8VL rvu4bpNRQ7VBUlpLPepLDr QOdePrGePjteAHCtK8DzL3 ZpteZ7DUu5 MICROSCOPIC DESCRIPTION b7imdDGjHRZcqBT4HcMfDK (test code = 3371) Frv1mnv9IdnBEbtNDaDQzo kNJoryCvyh65rEG6iV25ZI 0eMSMdXxJ7SQKaamT2Qjj3 BHNmXDOlwGGrS116s0qqz1 ixizNzuFY0iMioISCzfvgl ViU6VBjjHVXddkvmIUh9LZ cpFFMknRR4ZIRzwBEhJ9Fj RJNsMT1kdnu4AZZ2GFkuWM BdZvA6TAToeJQhOKNdaQes ZPiie320XPX7OqDwKOGnin VurJzymS8aHnKcGIXNUKCg z7QiYOZzDALtbf3= SPECIAL STUDIES (test w8zvyZQkONKgc3skJKDsaF code = 3376) FuZzEwMzNcZnRuYmpcdWMx IYiwfuLiDKokt0DdQ7VxHk AwMFxhbnNpXGRlZmxhbmcx YDViDIW0jxGoCBJjDWswMT EfDIlaJb5enCLrpUduHmGd LYVjd5tvwlFXtvvwcPx5m8 rjROGdMiD8iHWxHNswO9cb beAgrDFiW1MzgJMkoLs3n7 haNxYoWwB2mUBnLApwV7ox qeOywDZjJSJqEMw8dD42PF OdoP7pfBJsSShrpnHiYlB2 UJssSCDsDjL5BSFhvYAtEJ MrE6wvDGAdMVvgLCQqAAzh pNPtVXD5wEbls0D7yAIwyJ CfxBpxJuXjLwNcYaTFf7Ir GUa0xBdhZ4AbHRHvRaN5rB QgUGFyYWdyYXBoIEZvbnQ7 sWnqhbYux63csXSlDZJqWT KuNeWgkPkfNBYwECKZt4Yw nUhqGSW2jXg3pQxoYgshRD C6Lui8BC2tet66kzm7lWiu FIKgccljBlH2LKhkWWFukp fyKDm1XMymTJFtnZC2AKHa rFDtE5WyVDOnRX3zkot0PP Z0MTzrSCGeMfK7BYCrnVAz IAKxmNxqCBgga350HZM7Zi InQQ3iQ0Nny3J2aV8rfUPl GPDqcNIbZzEwSDCeuk7gmF DsSQwvu0HoKUH5wkB3wWTo hSEjSXUfNI91Xeuoq5RlGd tlc6FhB73eqJL1QUwer4sk PW7rYsV6glPbKGfzm7abiE 0pFlO8NPbdGT1bGI3jHGXn cF1pfhuoUINwIxZqohjmZD QnmRbrvrLqLm9afHmmXLY2 TFdmE2gslF2bUbA5ALmwT7 noiH4cWEs8GCixhPA7JMIh dK1jKY8zuocqs1euTLrhKC upENVasnJ6bkR9QCDdiJEq F9DeeS0yUQNmSU9ivsqfo4 raUGE2JYgnJXSzAHU1ZvRq WRBeu4Cqhlr0ZlDdu5EuzS ZbBJldG92qg694ZQUlajSr G6uqzUIsqcdylRFtnpzeGI ubcsB2TNTrUEQjKWxvOQQz XGZzMjJcbGFuZzEwMzNcaG ljaFxmMVxkYmNoXGYxXGxv E3wjFxBcC4CbOICgHgMePP stHKzrxWJwgGJerTZ2vS9e ST3uVDCgoYSnU1NyXJTkmz HtnDOzHUT8hGInoZMlSH3t SRhdgJPvz1jbh0VdZ3eiwI mruQR6US0uEJRrKTHgRLah p5YvsT2vJfyueJDusnjsPA xmczIyXGxhbmcxMDMzXGhp H1odOfMyLIBibVpaFJrjk1 NoXGYxXGNmMlxmczIyXGx0 cmNoXHBhclxwYXJccGxhaW 0zMzGqGeXnVlpoDR4aLAQk R2sxlUIvYZAuQDHmB1uiMz SmjY0dwZjpGVfjReBlZhYy NbTHo374xm8tUREcwWTyku OTqAWmpD0rNDdoORsxPRwy vIZjTEkec5riFZOzf5c2nJ YqPXZjnfGpf2skQVtcwtFv RFVqmEPakAPhAFTca83vPT nyfEqtjGkmXFFni0VayKws u5FcQkYbEEmtf6RvM94jeI JvbCBzbGlkZXMgcnVuIGFs y99ml4jdCDHpIcE2wMFaxF N6mGBidIDqb0ToqAtzYMHw h9ccQAObts0rquacvDGfg5 QaoK5csymrELizzWTkyrQq ZTNxo2a3hTBjXYJoBEJwHK urrWr7JCSml048co1tdwE2 gELmYLX6PXymQJQdXGTyhk UgZXZhbHVhdGVkXHBsYWlu XGYxXGZzMjJcbGFuZzEwMz NcaGljaFxmMVxkYmNoXGYx CCvxP5fgHlOdL5DxVMAkWc RkvOBjN9yazGIbDTEgMXlv XGYxXGZzMjJcbGFuZzEwMz NcaGljaFxmMVxkYmNoXGYx BFocR5zlJpZdI9NfAPSdLg IgIFxwbGFpblxmMVxmczIy YOpbmkrsQHBoDObhF3wxBr WjLGShyHxnCGlif7BoBIGq ELKmIbhwgfHpVKs2gnQnPA BhclxwbGFpblxmMVxmczIy DSindmjoIOPhQKdkX6paDh HuMDPwkYfdZKpgk7HrMXQk XGNmMlxmczIyIEltbXVub2 tqm4JhY3iqyVdjpWB4FWQi S1kqsYRcuYU4ILQ2oP8sQN qqmgHwKOBfb2QqUZRbSVPw JmL5cG9tPRV1TeTYmZkdGS BsYWluXGYxXGZzMjJcbGFu ZzEwMzNcaGljaFxmMVxkYm BhBWQcFBinY6npPzAzZ5Kz PIWcLzToqOqcDIgiTUf9Bl xwbGFpblxmMVxmczIyXGxh dzxmITHrSOtzD6nuCfHhHB LglNzmUArkv1PqAAWfPFOh MlxmczIyIHMgTWVkaWNhbC CVEN57AHRdHPUbhNxnkV8u qJFDUCArawE8p3C2EKqtCR YdTTg4BFxpjsUiKBBwkV5i XTQlCP6aWGc4vlOwJGUwo5 OaDJ3jGWDioYEoVHS1AMBo g7XmF1Tlf2OlQIMbZLWbgg 1cchVeLmSBhXViDIXetc83 BHQhUQ5eY7glWHAfHYDbza StmNPdk0OqABPcaZN9cABr BB0QGgZFj06tUNHtZTGUsw ZfIULdzAdxsKT2qwU9uC4e LiBUaGUgRkRBIGhhcyBkZX Ojze8ghkNePRMmGUEua9Wa qTPipNStpnHpU6Iqn1KnUV Yify18NFigyUByic35EH4k N8Hfk9AfpK4aMOybSFEwb9 QizUGlhIQiYFRpd4SrX2mw ljojLQwinIEwyE8yXPHcMT l5PZJaj0MbNVXoj0LzKrOu adGdCJGcFHNrYHNzoX46RQ Q1iYuaiYpkyiJcKS8tNZNu umAiGFXaUMAsaR0iFKemlb PsHWIhiqF6g0Y6LCszAVZm ebLwTgijDBV8uwQzimX3vJ HuD6dbunpzMLwwCDZzp1Kw aF3emOIFuQIwb1RnuAMgiR CXmCSrMS0nlqFxXV9bTAM5 ODggKENMSUEtODgpIGFzIH X3ZXzcJfzuMRR3amFnYVNd l9ElLGltZ8bjP67jaCgfjY f3oGXfwLmbeAJkzAJmZZQo vjF4d3I6OMBnj1WpjamaYT BsYWluXGYyXGZzMjJcbGFu ZzEwMzNcaGljaFxmMlxkYm TmUOIwFTptM5cxOcRkAxOa SoaqOVQ1qO== [facility] [id number] 16:47:26 Test Item Value Reference Range Interpretation Comments Case Report (test code Surgical Pathology = 104) Report Case: [id number] Authorizing Provider: Nathaniel Dooley MD Collected: 02/26/2022 04:38 PM Ordering Location: [address] Received: 02/27/2022 07:57 AM Service Pathologist: Gene Carlton MD Specimen: [employer] DIAGNOSIS (test code = i2lxoNXyMRKio4knSMLgcF 3220) FuZzEwMzNcZnRuYmpcdWMx IHtccnRmMVxlcGljOTYwMl vdjgIkDFMygESgC1Kivetz EZqwPP0eYY4ztHiyqBDgnG NuRLScMdYli2mwu517eWRr r4rbZFMDwbennJi5zEgjL0 1qc5D9SejrL83bqBSwYAB3 UHGhZSQfqWOqSXOoVDN3QO ZdlZRdY5peGUUxCZ5wjqde AKqyGQimSISwwWV1LDPleW FcH3YwNDRkOWqbEMEkpmn5 AcLyXt9tpEYihWvsTQloLL SzXMTtJBxkPYLyPkKjE2LU HcsTFPOCMYJGSYPOEQ0RE0 s1FKJvfqh8ONJmOQNVZWDN FyWCM9lOMBANZsGADGODKL OeI0CfU3MQIU2OBRJeH7HU ATUUVJEEMS2GJBJnNKPiTE Ues07hAB47MRfsWBJ4w4lh dGYxXHNzdGUxODAwMFxhbn NpXGRlZmxhbmcxMDMzXGZ0 bmJqXHVjMVxkZWZmMHtcZm 2vpYLjeGaiSfPmYONiw8mn vfYQngyogAi4w0jbOVSqCf W4dVEgTEjfI7vagjHatWRo DMUbDPl3yM55PMLnlI9dwE BxWElsbcVnZmE2BEsoAHOq JzJ6ERUqcSIzLGQiO1suPR QwXGdyZWVuMFxibHVlMCA7 kFecq2W7iXNfeVPftTquNp SgUmHrFvHVr2EsPTz0qFta Z5LcUMDgKnO1xFWsZXMeXH sjGQYwWUDoosN2cE33ETut lkN0gVApu3Fzr01of559wG 6awHDbRDW3VMJmUWGgmZPo HYZoIDA5GGOmwUOiQ3xbKS NdGD0gitbtSOxuBHhtZIAp qFP7ZXFwiOJrV1XeXSYlSZ jdMWJkzdt1EbQeOl7xdMQf nDqwOKalu7you7wzeLWpYp k8AILdFuKkVcrjBOntr2Iu b6jjLCCsyo9tVZQ4sZRvbR afk4B3aWLyNAPfkEUiKGNm EI8rgAKnNQUmlI9iuberLU BnYnJkcmhlYWRccGdicmRy Kq4sdXdxVVK6QMfnN2zctC 7wAnD8MCyzB4tnaS9yQWp7 LKxrCTYxaEW4ezA0YNKftG AsO5VkbF0vUESaDD1unqw3 r7tnPWJ9PJzoRHJkQpC6xf A4PKPymRByWGNhfHieKLhe o452CPS3BnNbHWDvh3NoE7 QscHfsG71lrSrxK40jUSOh nUrpiY5woWgiqZ2oJeUlIn EcUSkxmXvcOR2lPCNfF3oj gKYjZMEkUXBaI2cxRaCfvA 7ukFbcYOieznHjNCCvAnx1 ATHuxPIvNPAaKhb7TIKzII YaM58tftlaYAP6lM4nl9ta s8RiLFmbXVT6STQzo13lXK fmyjG4PKkbBj44TAplGPZ5 LXgaIQK1dQ== COMMENT (test code = c4yjyZFeZUHmyIW7WsSdJF 9789) Crz0xcq7NefCNlkVGoPLvd tJOjzhAvmx73gSU6sF94YG 8aQETfQhA4HILrzyG0Zyi9 RGLrQSWmlLWhM574q9xym5 twrmPqhGI0wImnLBDjayip JbO4LHdmJLQwmxioFEb3ER dmGNLggGR1PZXkyFJsO6Ql PREzYD5uemb8DWW5XAhuGG MvDhK6OAUxiBQnDNSaiXgv ODnme849DJZ6TzTsCOHqzr JbxIkjmI2yPkXcRSOGiNZm qQT8gVNjoXsuYGrmi8Eaio uiq4PvZ0GoojcvWAkdiYTb kmKnqrIej3ElPL1sRDhyMG P0lF2nSHHoo6ctTUPmI8Dd EF5nT9Heo1ubBNFde9qtcw NsOWU3uMAsYGShogZmjnYc NTW3fMBlsMYttNMhdXHgmF Zbf8WqhOC5owTmbzObgVS4 EIObb0VxsL97HKExr64cVN Bhcn0= CPT Code(s) (test code k3bryNHxOCHzeGV1QjHoVB = 3357) Qme1sum6SxjCMpeEUxFFre jHGkypHcnq70wRA0xG28UP 2eFXQqNaH8VVNnqrA3Cih0 VBUpTDBpjLWoZ412l1bxg9 rypfQknCR4lIpsSETxrrrj GrJ7DIynQBHyzhtkRJa9KO hmAPAjsCG3TSGumIOxL5Eb OXQkWY7urjf9AGH6RRffIW GuJhB0QBOoqFFvWCOowJfw SNhwm839GRB8QaJgULKopx ObhAonmM2cIlBsMWD5HZVu NVxwYXJ9 CLINICAL HISTORY (test a4ebrKKtWCNbsKZ7EuVkLD code = 3356) Nra7trn9OjrQYhaIDqFJbj zPEsuwTrcf99jTD3uU65HH 9hKOPeLgP6MVUhypJ2Dyu1 YIKwZFLnkSTkI505w4bgu2 qqktHyrZD7cZqrOZIzthly WfR4NKxfIAHcpkpzZIa5MT gfUWDniQR0SCXbgRAqB7Lh TPXwCL6ajbc9MWB8UAnzJH KtGoI4QCHuuEWlPCMnrPgj FUjvp937GQM8NpLrLSRxke KvvZmdfG6qIhUjPEFaCAX3 Xp3cEK6wXD7ybJIhsiskqm DuccHdrfYembAidpS2YPUt g3v9kVXZNNp6DD0rHRiNYS VdhiQqHsdnqI9jcSczvCOx KU25dI6qtWYbg2QggPIaDG yprEqfkoKdgvNoDJaolK7e dQpaRY3dUhE5AMitgmGgIJ IdPRNyoU2eOFTpt1lvpeMw YmRvbWluYWwgcGFpbiwgU0 8QYNEnuUpiwMurFQCoRO1p f6CjrrJyJOLkJCNcQ8TkSK Gvc8HpARP1wkCeOVYuKHM4 gXE4u41gtGtwFTJtTR6eQR KqXQiwNTViDRrbRC6aHSNg dcTfL9RlRI7ql5Pnh7k+b2 6jqZ6iZ2bcC0ujTVU1 GROSS DESCRIPTION (test t8kpnGEqAZRsgPDFIJVqK0 code = 4836023371) ewuiQfWLIzqJNkP0Evbtjt IQhhJR4aEM6lyGyhkKEltL TkSR8UDBThUwYxUXNewCWc ehFvDsXkWALcdBXvcQD4CJ WnVI1ptirlKZgwCLsaBYSa lbA9VMQqbWTtQ9DaJYZgLB 7esewsKFQ6EAtxcI8lreXJ RrwbXt2byKYhjLroNvEtNu NoYXJzZXQwXGZuaWwgQXJp GJs8qS7TYtkuHLX7GNGJCo xvLFSsUB2Nd0wzAPFjoAPa NZK2GOsxeLJvFLVoPNBiWR u2USPzBDwrjDRrUE6kmBwe TsgikJzbf1CueTRvEEafZH DmBJFmSMeyWUQmSV1MFjIv CNT5ZDa4ONCtPKj3IYf0KV 2JBnFiIEAsGBK9OGV5JeQv OOu0IUtgBD1KAPF7KEK5XZ zbVaX0KOA4OqHzDTUsZuXt XGYgQXJpYWwgXFxmbCBcXG 2ubLkhbFNqrhVPAjSFIOL6 aXguXHBhciANClxlcGljTm VzdERvYzEgDQpcbHRycGFy XGxpbjBccmluMCANClxsdH CtlVnsexCqFQHgR5QiiuCj VWroCOFrsx1zqBycJJdiOt BzCZKzf9c6wDN3eREzwUC1 sUFxtSgfSnBhXE4oyQDuOC 6gPKomQScursTkk3ZhNX71 bWJlciBhbmQgImNlcnZpeC IgaXMgYSAwLjUgeCAwLjMg qHTaBkCcM99guSFwLFweEI xpo72myPE8zFYohVKcCmIa Y39pwyVqKYQgmVadGGP1kO WrQUYta48bONT0Yc7fvGFa HFKgvxY5f2PqZUcvWDQqKh eeITSfXXjlhOGxWQ1TI1nu nKGwXKCKgpZ6ozibNYsKEV WPAAGfZVANTGywbVefkG1o TLkvqE3xVN1HGEJjNDciYO UppLPWFBG2SP8aFIdduHZn oghhWZLwM5RtU2BtbiDitV IdJBMmcsAhm5geIKZ2GMBf yPJghOKgFyTkCcoxFUO5GA atf2mgXES9YJQycERobKCy SKztSdVoBmsfTKBaD4SaD2 GjqkM9MHj5 MICROSCOPIC DESCRIPTION c7ufiKBmBZEufIH1IhUqYG (test code = 3371) Nsf1pqv4TlfMSbyLZjXGer fMMxyrNgjw59cLL9gG15YE 9hJAEiMmE4UZOypfG3Fvg0 MLToNQKyrCIeC451b8zir6 iikdBrzVC9cFamZBHaucpm RhN9VZhnRJXncbjhVPk0FN twFUPtlBN0UWHsnIWiW7Qk VGYoFG2expl9UBU8LIfdVQ ChGiJ6IJBvmRIpRMQnmZuq TPmbu867WHV5GtGiOCCxpq WdqNuvfT1eYzDhQXWDPCWe m2EmWUFvZZVrwb9= SPECIAL STUDIES (test w3mwtJCyGVDnn8sxVYXfhZ code = 3376) FuZzEwMzNcZnRuYmpcdWMx JWkknsVkAZgdi7DlI2XeUg AwMFxhbnNpXGRlZmxhbmcx YDPvNDA6jfKsMUXyEYltJO JqBZvpBd4ixSDurPnpWcWw CZOqw7jagbWIzlxnjUk4u5 fbYEKjYtR2wVYhZTjvO9ol wbFbxUSyA3HcrWCocBv3v4 miMjLdClI7aOWlQEgkZ0fl udCghWMzHRFtYQl4jO62MO IbmW4paJFoLDbgbxUrWeI1 DTniLMZrZdF8HKSlyTGuRQ GqZ4vzECWqORypSVHmIYzj oVRxCEJ2qEvef7T2dQXzqM QghGywCzLoMdPeXcWQh0Jy JKh9eReiU4LeNFStYoP9sD QgUGFyYWdyYXBoIEZvbnQ7 xVukikIiy74itMNuFHRsXL YtXwCchPkzYSToUCZLq0Zx jMhsILA4tUw6oOeqGfswGT O2Yxw2JP4cev19poe4gBob GMQghlflNnU6CRszXZXfvl ttGJu5YCfpSJOhfVT0WRDt nVAkK7OpWHEpYG1qxzs1AU B6XVreOIJcVpJ5KQVjdOIn ZELvpEvtZKibf619VTI4Lv WkQS7nQ6Kiy8Q2lF5gzWSw BLOutCPdKdVsSVGxfn7ssP AsRBrnx8RdMFZ2kfZ5cGBb dEFyNUWqXY95Axbqd8LfPh qef3PsX28ovMV5BAwfq5yc QS6jOkW8esMiIKqwt9ytbH 4mZyB6RHizRL7lYK6bPPXu sS5ysmetEKBuMyDknrvbYA UrpOxpqzWfYu6onSgnFUS4 CKxsS4yjcR6pQhM4DXrwD1 dvkK0dKLw1TYdcoBH9EFRj jN8cDP6pukrat5elTIfjLS glNEXnggG9uuM7OCNmrXCi A4FfpJ8mNVKtGI4dribdj3 ssQYL6CQilPUCgSBM4QtJo JXVtv8Vdgjd0CyUus7QatA RmWGrrD04sy018GVSanbZz W1bieVRkrabcaAUvaajxFF pdjmV4IETyRUVeFYuvBUPb XGZzMjJcbGFuZzEwMzNcaG ljaFxmMVxkYmNoXGYxXGxv F7gxHxTjU1InQVUoKzSiED oxSVjbbLBqyVClnUP2zO6x JS2sWGDcfLXlD9XbCSDbon RzlVPwAPK4tMAwjBKhLV3d XGypfFGzu1url9DrT3vwfM gktFV0GF6aZVAfZUTyVCrz e4VqjM1hZcrbfGVygktoPG xmczIyXGxhbmcxMDMzXGhp A5orAeIkFOQwpMryMXedz6 NoXGYxXGNmMlxmczIyXGx0 cmNoXHBhclxwYXJccGxhaW 2xCnLnZhSwNsjpIX1cQYVh U8ctwEKjFWStUFGmL4nhAg YaqT4ncJgfSCqbWmRwNkIo HrUMk989ci9dIMDrfJYatw CKfRBsnT6eGVmxWNrjTWlo rFRoQKgwz6ioUDFyj0x8eY PtEBEjdtTes5pbSYdecbYw SMWvoWVehKAtGWWoy10iQK hnaYqpgSxfVEVso8SrrDww t7KoPqGbNZeww5SmK12gqI JvbCBzbGlkZXMgcnVuIGFs y11pc7ctPZWkPfW9jOSolD C1vJYfjVNoz9XldTvfKSVh y1fbFAIgtf1gbeygrWFzj3 UygF3nshntCScrwVIpdbVh [id number] lkjNi3QRKln335id7pxaF6 oNHxQFK8GHhoVOYkHOXfzw UgZXZhbHVhdGVkXHBsYWlu XGYxXGZzMjJcbGFuZzEwMz NcaGljaFxmMVxkYmNoXGYx KQblO8cnBmZeV2GrAIPpVq SatNYtC3lxlSQhPUAeAQqy XGYxXGZzMjJcbGFuZzEwMz NcaGljaFxmMVxkYmNoXGYx OEelI0xdJwZyA3SpAWTgXb IgIFxwbGFpblxmMVxmczIy UVvzvsicKSXfKSnxL2bqKo TxHQYisXcgDGmfp0YuAJTb AWNuWqsdtaKhMAi3iuIiQV BhclxwbGFpblxmMVxmczIy AMrhyauvYLPuFZlfQ6shDd ZcTFJxbQjhHNxbq5QeYQMd XGNmMlxmczIyIEltbXVub2 zdo9RaA8rmtOhhbNA9IANo Z4skjKQeqUW6NEG6pF1lON oypwQzDZJfs1JmJKIoIUHj UdZ0wQ3lUCP3BgZTkWzzQN BsYWluXGYxXGZzMjJcbGFu ZzEwMzNcaGljaFxmMVxkYm UiAWXjWKczJ9bkSxUeJ1Fu XGBkBcBrbXpdPEvhCVw6Qh xwbGFpblxmMVxmczIyXGxh ohzyWQCmVJokD0ovPeLxAX JecEstKWwpm5GaEWSkEBZh MlxmczIyIHMgTWVkaWNhbC PHIR43KHBzHIHceJrroB6j jEPOYKKpfaR3o7S3TFljUM EsNEg7BQnsygQbAWYqtS8y JTVsTJ6nXJe6blGsFSTbc4 QvNH8lXRGrrVJuAVA4LAUp a8AmR2Cwf0TsQYDoHGBggo 7wngKgFoLLnCZrCIQllh56 ORYzXT1kT5puGGSrJTImur KcuKUej8WoKFQjyFI4nQXk WC1EJtLRe30oIAHaLFUUco JxTIBndZeskJY8ivW5xK4q LiBUaGUgRkRBIGhhcyBkZX Wyoz0ngzPsEVGeBEXtw7Ij zIAuiEAarxHkP9Teq4JtTT Zzik67NEuugFOghn36TK4q Z5Zad4IyiB4pEFroJGTbo2 QubVNjxBSuQTZdi2JfF1mk irwuHTgvpUYyzW6fSQWuGB b9FMQqs7XlRYSen6UfRiGr fqCaRALnJYMyOGBppJ80QY F2oBauyCisraZtQL5kHVUn ctBlGWVhVWGmrP8eMXsetr SqNZVlclN8w0N4AQokPCEk dnJpCztzUKZ1zzRzhtQ5lN BmF6yofbrxKClmCISzk1Le zO8pbBIYhEQbj0GyuEUqsK GUwIKfEF5iveCaMM2iRKH8 ODggKENMSUEtODgpIGFzIH R5BXewJldlCLO0rwYgUKSo d3XyWMrdL6vuP37xcFylzO y5jFKhdTzgcQRanZSdBTRp npI2k2B3RXUgr4WkbkmbJZ BsYWluXGYyXGZzMjJcbGFu ZzEwMzNcaGljaFxmMlxkYm IoOQUoNZucV8siYtZmYrWu QhwoHRW3pD== [facility] [id number] 16:47:26 Test Item Value Reference Range Interpretation Comments Case Report (test code Surgical Pathology = 104) Report Case: [id number] Authorizing Provider: Nathaniel Dooley MD Collected: 02/26/2022 04:38 PM Ordering Location: [address] Received: 02/27/2022 07:57 AM Service Pathologist: Gene Carlton MD Specimen: Cervix DIAGNOSIS (test code = [id number] 3220) FuZzEwMzNcZnRuYmpcdWMx IHtccnRmMVxlcGljOTYwMl uaohAzROAuvWFjH2Xqowqy WQpxOU0wCY8oyDclvPYilS UoXWRzIjIhq4wgq891xYYq b4qhFQCWmmphdZf1xWyyE8 0vx7X8ZxcxV31nkMLzWCL7 BIDoJFDypMLqTHMoFOJ0KZ XpxBSmU7tkVYGqDC9ogzsf CQppAVwwJHSysWL4ENQhmF ZgW4NaWFBrVBghEVAldrh6 NjGuZi1djFMfnCtfDJjiJL StBISdACevVOHoKlLoY2UW WmiNZAGGOIUGTHIYEA0WO6 q9BFBomgj0QOJjJPBBFBLW MxOOR0sFKLMXQoADGGEPUH VqV1LiB7BZDQ3CSKAkG7GZ PETDGNCXLD9BGDGdKSJiKH Cda03cPC85RZffLAL2s3et dGYxXHNzdGUxODAwMFxhbn NpXGRlZmxhbmcxMDMzXGZ0 bmJqXHVjMVxkZWZmMHtcZm 3rjKSqvItiVxFvUWEir1wh ffUAjypleSa4z0htMGMyWt A4lKMvZOauI9nvvuSupTUg PLXtNCj6gF37YYWybD9oqJ MnRNlfadImFxG8ADklEOYj HgL4ZSZzvWKmPJKqN3bfDY QwXGdyZWVuMFxibHVlMCA7 zMgtt4J2jJDisTKzwUbwGm ShLoZhHqPNn3TgYBk5bRmu J3RuRDKjNyM4nDEjQPZjCF prTZCgZZGhgwG7fI96QQne hvZ4mELex1Xsu03xj843fA 3vjRStQBZ7AYFvNXNenNJn QLZjNSC9VCLrkGEpR3rmHB IpJZ5ueptpRVtqENdwURMw tYV0UDDbmXVoU0SkPDRmUG agQWDbebm4UxGwIr2ncKMz tJabENqgp2plh2qisQGcOd n5ZAIyThOcMeutCMdzs3Pd u3nkXQYubv7oJFD1gBFcdX evp9E9nEYqNFGnaBKdZIRm IY5lpKSaMHXcgY2nnzapBB BnYnJkcmhlYWRccGdicmRy Be2twSosUKY0YQnsU4mayH 0wMqI7YAylA4smgW6gLIg6 RVnkZUKttNT6njH7LRRdeD CfJ2BudE2hDCSlGV0kklb8 p9yqTTV0DIzfPSMsOwP8ou T2UZBteMSoGEVeyOchNYcp j145CZM4WwDuUQDdf6WmX6 EinTiuF11dnOstQ87jWXRz lOuhbT1shUpvzU7rQjHbKg HfEQuzeFxvLA4nJQIvR1wa yPLeSPReEHFgC1xbBtHncM 4azVgsXWgfzcSeHPIoJph6 NRZarLGnVWAuPiv5CERfTE OjT59shykyPAG3nN5da7mz v1LqAOxrAZG0NMHvr28aEW rkvsP4MRalQz60KEaxUZD3 LNtfHZU5sB== COMMENT (test code = y2wmfFZrTHQcwDY6UnBtUU 3359) Jub4crd0GrjBNwgLDgYXqn qDQnfrZftt06qOD2xT57GB 7zQEYjNzY6CQZznjX9Kpa4 WPHvKXOdhOMnM994e0ier9 kmkdItwUM4lLkyCBUyyurz YiL7UEstFDIenhxpMZj7BT dcVYTtwRU8HMLecZOcR5Ra PASwSB9kuxb8WUK9IUjpRC ZvRsW0UYApeCJiBQPkoYrr SWvax370FCH8ShRoCNMpxw LjsArbdA7vAfYmSIOEiFGu kUJ4sUVgiXwfCDtqo0Ympe sqr0DkK9PlggjlSBwwyLVn yhOjkpBdo5QzKQ5gCTdxZK H7mB6pPJHsl7wtNXCgY6Yr TO1mP4Zfr0saYERkx5kjyy BcVHO6yLByTCRkceMcocMk YGD7dAPjvWRhmJDkcZEphZ Dne8VjeHX8czKuxiFwsAE6 IGYab9OcjI12JAYfb95aLZ Bhcn0= CPT Code(s) (test code m8zkzVTgCQNnaRT3FpUcXV = 3357) Gmo2mjf0XvvTZdhFFhKOnx kVUjyrBwqp10zOC4lJ00KZ 9qZIDxGyK5PZKoytM5Dju4 YJXeTUTymMVuR988s8jos0 cusyXheUG7nFevZCYvjcpt AcJ1YPizXLItpzzqKYc1EK kgRXIqqKZ5RSWzsSFmH1Sk WNZrOL0iesq3GGT5BFzfZA UlLtC5UPNfvOMmECGfqGcc FWtyd803JMJ1AeIzNTSgfm HgcPxfaD4rJfLiJJZ1NBJy NVxwYXJ9 CLINICAL HISTORY (test p1mktRZzDSSyfQK8LqLzXF code = 3356) Iwz8ozi9NtcBNsgWQwDEjh qFZuraDtaz93vDJ3fW07HY 2zKBPwLyR2GBJajnB7Wez1 YOFkTZLxdZEkY412s6rnc6 uwfxPsyNB7sHbqJYIctwaa InF8VAffUQDiimyyLDn9QF xbTDDvcDK2MBXerZBgO8Et FOZqPL8hdgd8GXV3QJijIR ZkIyV1ZJGfdSAcWBDngBqx JOphf095BBZ5EfKvLTVmsz OdvPcojG2oZiUxMRZcQPY7 Wn4qQV8oJY9hcDHlwmreag SoxuOwjySqoqRkmuU4NVSp l9n8sWRMUBr3XV7cJTaDPI AdoxQlOvlvfK1jrSgmvCQf SA11bY5ylMCuh4YyhMLaHZ ungRvazeEkxwZqJMbznO4u rKncHN7iPzS1ILycthStGK VmERAprW1rNWYzl3wwycVg YmRvbWluYWwgcGFpbiwgU0 3LNJJbmSlteLceUOUfAG1m n7HeseBaTAJwXCMwU7YyYK Gxm6CtYBD1kzJwVVAtSQU9 uVZ3w77afNicREDnGI7aRG TcIQmtPQQnWFyhGB1aZBVd fmXvK1AuPY3mf8Ozc1w+b2 0tvF4sE6trF7xoBMA3 GROSS DESCRIPTION (test q5nuzMNaIBEtkLJAVAMyR0 code = [id number]) goisSzIRRihRKeH4Sonene XOezLF7wEQ0wxDykoTYkvE QmYL8WWHZtVeErPEFzgOJk ntPyGlJqPJPzgQPlsMZ8RZ OyZU4lalcfZOacXQhhCDWs zaH7EUQnyXMoO0FpPOTaHJ 4irobjIEC6RVfiqR6bvhCI KsovWe7zsLAzmLmgSvZgNj NoYXJzZXQwXGZuaWwgQXJp QLp3sR5ECykzFCV0IBIDVv nvGOCtXP1Rz0yrVUZciIBl HOC0ZJjokAEuZFZtYOFnOX p3HAWzETuxjJZaMF7idEjq OqbnoWtfv5AemDSbJDgdQV FcSPEnRNjrLAIkYZ9GQrMn ULM5ZEm3KAZlJOh0SNe5LY 3OGuRpOHSoBWA6EYI6ThBs VNz0CSyaPF9PEJP6DMM0IT atMwJ6FYJ1MrLzFVDiSzGw XGYgQXJpYWwgXFxmbCBcXG 9dgXntbLJksoRKXjNLMMK7 aXguXHBhciANClxlcGljTm VzdERvYzEgDQpcbHRycGFy XGxpbjBccmluMCANClxsdH KohRdpedMsEMKjL5FrzvOr NQtuDVLrfw2ceGkkCNwbFk YnFBCtv4r6dDN9nOKfcTM6 mUPxeZawHaPtVJ3wmNCmFY 9iKYtqTQxsnyGbv9ZvLS86 bWJlciBhbmQgImNlcnZpeC IgaXMgYSAwLjUgeCAwLjMg sVKaRuEpL36vbECaJZbcSL gga84zcDL5oTQhbJCaDoKn L39xzaYlFWLcjAgaCZE7uR KlHGTev32nEMR9Hi6gmKUi JCXvfmB5a5CcWPxyMYEkLh wyZSQxHYxxtNMcGQ2LH6sh eMDwSGPPdsO1tbuiCDoPYS RIDTXnLWCQJWmllKswpO2h QGdhhU3mTQ9UOGScSPkqVI DifSSMEVU4TU0xQWapkMSc idztTUQlB0BfF2UrkqCvkY QbFRCtroBlb2osUWU8XFNe hESzaVAiEpFuAfwjHSV3JA jgs0qsITZ1NLYpoZXxfYRq TWoaSsRjXqndXQMiS2YzE2 CmtqK1OAy9 MICROSCOPIC DESCRIPTION f9iesZSwLLJbjDI9EnPbHZ (test code = 3371) Rrq0imc6JltKCmiQYfIDuw sJCigwSkua19dLB2zQ80IZ 7cJZZtRvI4NBYpaeT9Qfm7 FBVtCFYwpKSkH178o7ubt7 nttuRmpJT3vXwvDWMegfbn DzC7MAreXBRyimlbKUg4IZ vsZUGevGZ5CNCsxCIbB7Jr SGDyYI3limp8MPL4XXswAE GyPnN6MKGjhXBdNBDgrOtc LHrsr622ECM3AtVgHEWdvt SdrEdhdD6eCiBsSLADMEZx i7BaOCYeSKUpdt3= SPECIAL STUDIES (test h7qusSHzEXYos9oyRJHpfG code = 3376) FuZzEwMzNcZnRuYmpcdWMx GIedgqOdXJiix1HdA9RgBv AwMFxhbnNpXGRlZmxhbmcx SOHpYCB4ioBgZJMsZAzkJE NpTWxoVi8ixJEvqBfbPmZe ZADov4odqdIPwxajaUd9e5 bvCLCaCyY5gYTaDHncQ8qj glPniIUqF0TceBJcaDd9i5 qtTpMfHnA7cWKrFKviL7kt lqFrkVDlDJIeESt4iO91EH TpxC2fpAKmXIxgolNsAtF4 FRefREHjEdV5IIWpyFXqCW FqC4gcNTJmCTxfSJEpSSfe wNHiZGB5lDivl3H1iFPppD AclIzaOrKpJpVrGjZZa9Bz DMq6oXjpO6QjGJGbRnP9qC QgUGFyYWdyYXBoIEZvbnQ7 hLjckxUum95luQWvAKDjZS BrAeGpxXqrONYpFYCBq6Rl vFetCRI0pYf9lGwhPylxEI Z5Clv3TC4zar35kwf5oZzr MULiawfeItS1MQiiIFBpgl lgLLq4NGdyIJXhrLA2YJPd nFQbK8XaRWDnTN3qtrg2HR T5VSlyHTLtTpJ6AAHalSBy OMUqfAlcBQlbt332MCM4Jl LjPA3zJ1Bfn4R0zM0rfDJl TFYvmWPxXfVgKMRcuk8cdU WaKIrox7JfHLY0pmQ1kGYq iFEgZNJkEO61Vbnfz6ZyGp gkf0SbD88buKW5LVzuo7cg BS8xWrY4qpYyWFmsc1vnaB 6sBsY9HMbuMV8jFZ4qTBBx kF4xoerpPIWvHcHgvfrlDV BybCiofqKlBd6uvKbtCIA5 WLdzW7fcoG9jIqO6JTzqN2 vfuB3sJMs8ZEiszJV0TFVe qZ4xDI2ittuld5gaMAnsPG hnUXNfejN9kpK5NAKdsEOz X5WmsX1tUEMuNU1ktnjim3 qdRPJ8GNrxIUIfZZF7ErMn VMEme5Nchom2GnLjc7NxaH NhCEvoN01ig098UHDntcMo E9fvoCIfxuuzrMOiaqzvOQ clxgP7YQQqGWZnOAtaSAYb XGZzMjJcbGFuZzEwMzNcaG ljaFxmMVxkYmNoXGYxXGxv S4krJwAiO6WlNLVwDbQxSC mmEFfurIRqxHAiyHG8qI1q ET3yDJLclRTsY2XsMWUbpv RdbFGcTVC2rZOhwUTvUO0u UGhrsZHnu6tci8EqR6upkQ jirLN7FO2qJPFgQASzXRyg v0BhpU6iMzchwSApzgbqVL xmczIyXGxhbmcxMDMzXGhp T1zfZcAiFSFbcSzsURepd3 NoXGYxXGNmMlxmczIyXGx0 cmNoXHBhclxwYXJccGxhaW 3xXrTjTqJzUgpaPG2ySRCg A3sacXDvZTPqUFReX3aqGf TjfO8cpJvgOCrpNbAxMpOz PnOBs931xt8jNOWyoAAdml QPqICcrK2oRMrkMPboCYtn nDHaFQfeb2euRAYgf3z7dG KtVIOfwkGpc4dwMXrpufNg FPRxxREusOLyPAMob94cVG gauVgafXljCXTqh4MbwYaj k8CgThXtFGlnr4GuQ42kvR JvbCBzbGlkZXMgcnVuIGFs s01li4uvIAOrSmT1jWUhwT F0mHFsvFSwk4KmbCjfOVEo z7ppACOhad5eivmcbMZge5 VpbC3dngbaFJgsiWAizyPk NSQcq9u9uIJiZYSsMORqIJ qcnCw5ROAwn035gi5qhzD5 zIZcDJJ2JTikKXDiOCIdzx UgZXZhbHVhdGVkXHBsYWlu XGYxXGZzMjJcbGFuZzEwMz NcaGljaFxmMVxkYmNoXGYx VZygZ5weWwDcW1UeAKWoNp WzoMZgT6ecgHFgIEBrDVae XGYxXGZzMjJcbGFuZzEwMz NcaGljaFxmMVxkYmNoXGYx EFecQ5zvJhXyF4QhFFRzLx IgIFxwbGFpblxmMVxmczIy RDbnyrcjMQNhGTujT0dxJa RjKZQszFyfFGbzl0JqCYNf PSXnDfxzjqNzTCe8dfIwFN BhclxwbGFpblxmMVxmczIy GWrqbrnjKPWhMNytG0prCu PcADYqrLbsZOwbs8OqKHAt XGNmMlxmczIyIEltbXVub2 jne2LrJ2ccfLyzxBB6QYOh C3oirHJdhAO3MUM2cX4pSU oxbzSmVPLde7BdQUTbEFBv GoA5uM3fHTH5GeDKqXnsVN BsYWluXGYxXGZzMjJcbGFu ZzEwMzNcaGljaFxmMVxkYm VdHXHdNWufA6akFaYcN7Cp GQKaCbSvsKsnZFmfRWn8Cn xwbGFpblxmMVxmczIyXGxh rfutQZAhYTikK3gcHoIvHS XenMkfMCwqv7FuRYJuYNKa MlxmczIyIHMgTWVkaWNhbC GWPS74MDNqNYBmyEddkF7r oXRCTPStinQ6o1C4CUqyIB KdIRq9GWzesbWvLZFjcC4t YIPzUC9kGQb1eyEoXNNeq0 GvYB3vOXFpdNQzCYH7PLFc u2PwF6Mbe2GoPTFwPPSzgm 0oiyDyIrEVxUSoSAQqsr31 YOYgTV3pZ4ndFLWoMSQwsg EajDGei0VvCOLylBM4wCXg EO4IDpCMx28mWPCbDYPPat ZcNOHdqCbirEP4rlG7bW1s LiBUaGUgRkRBIGhhcyBkZX Iytp1dhaPmGAVtJPXsm7Qt iFImmBZtgpBkM1Dmm8BjHU Ojkm31EPnjqRSbte24UI1i F5Geu3TbvA5qCUthHGFva7 GcsHKfbQWzUIIii7KnE9bo dnjsLExojQLdmM8eHKAwBQ e1HXQvt8FbRBEch5CeXuQh qiKyXIAbHGHrLKJjqD47IN M6cPtnqMdhtzJvXC7sIFDk hjJbQRHmEPZhnA7mEVnczs XqIDHnpgV1a1G8FLjwLRLv tmQrMivuKRF9fzQabuT7cL FkC2loipeuJJgkIBYdb0Lu nX1fnTVCwASgs1QbqLFevQ RMfGEdOK3ntsHoKH6mRVK9 ODggKENMSUEtODgpIGFzIH C9BPgiGfthUAM6wuCqNYKh q3QhPVthM4srW64eqZswpJ r9dKAeyHdxoATjcGYuLNIs xsB0j8J6BCZru9RkpamwDJ BsYWluXGYyXGZzMjJcbGFu ZzEwMzNcaGljaFxmMlxkYm EjPGZnCUwsU0jlGvYiMlCo IhwbLWC1zU== [facility] [id number] 16:47:26Surgical Pathology Report Case: [id number] Authorizing Provider: Nathaniel Dooley MD Collected: 02/26/2022 04:38 PM Ordering Location: [address] Received: 02/27/2022 07:57 AM Service Pathologist: Gene Carlton MD Specimen: Cervix CERVIX, MASS, 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 The tumor shows focal necrosis, however, there is no cervical stroma present to evaluate for invasion.[id number] y.o. female who is incarcerated with PMHx [...] are evaluated [facility] [...] to perform high complexity clinical laboratory testing.Prepare [id number] 23:54:00 Test Item Value Reference Range Interpretation Comments Unit ABO (test code = A Pos 0163549) UNIT NUMBER (test code = [id number] 934-0) Status (test code = 0786414) [facility] Blood Bank Product (test code RED BLOOD CELLS = 2263) PRODUCT CODE (test code = Q2630H44 933-2) CROSSMATCH (test code = 2264) COMPATIBLE [facility] [id number] 23:54:00 Test Item Value Reference Range Interpretation Comments Unit ABO (test code = A Pos 2206051) UNIT NUMBER (test code = [id number] 934-0) Status (test code = 4044218) [facility] Product (test code RED BLOOD CELLS = 2263) PRODUCT CODE (test code = H0569X40 933-2) CROSSMATCH (test code = 2264) [facility] [id number] 23:54:00 Test Item Value Reference Range Interpretation Comments Unit ABO (test code = A Pos 6526669) UNIT NUMBER (test code = [id number] 934-0) Status (test code = 3897153) TX_TIMEINCHART Blood Bank Product (test code RED BLOOD CELLS = 2263) PRODUCT CODE (test code = O6662E45 933-2) CROSSMATCH (test code = 2264) COMPATIBLE [facility] [id number] 23:54:00 Test Item Value Reference Range Interpretation Comments Unit ABO (test code = A Pos 5891595) UNIT NUMBER (test code = [id number] 934-0) Status (test code = 1197626) TX_TIMEINCHART Blood Bank Product (test code RED BLOOD CELLS = 2263) PRODUCT CODE (test code = V2759T68 933-2) CROSSMATCH (test code = 2264) COMPATIBLE [facility] [id number] 23:54:00 Test Item Value Reference Range Interpretation Comments Unit ABO (test code = A Pos 6452341) UNIT NUMBER (test code = [id number] 934-0) Status (test code = 2431861) TX_TIMEINCHART Blood Bank Product (test code RED BLOOD CELLS = 2263) PRODUCT CODE (test code = A0954H34 933-2) CROSSMATCH (test code = 2264) COMPATIBLE [facility] [id number] 23:54:00 Test Item Value Reference Range Interpretation Comments Unit ABO (test code = A Pos 9391545) UNIT NUMBER (test code = [id number] 934-0) Status (test code = 9371500) TX_TIMEINCHART Blood Bank Product (test code RED BLOOD CELLS = 2263) PRODUCT CODE (test code = I1607H63 933-2) CROSSMATCH (test code = 2264) COMPATIBLE [facility] [id number] 23:54:00 Test Item Value Reference Range Interpretation Comments Unit ABO (test code = A Pos 7535625) UNIT NUMBER (test code = [id number] 934-0) Status (test code = 0997333) TX_TIMEINCHART Blood Bank Product (test code RED BLOOD CELLS = 2263) PRODUCT CODE (test code = X0239K81 933-2) CROSSMATCH (test code = 2264) COMPATIBLE [facility] M[facility]ING [id number] 14:04:42 Test Item Value Reference Range Interpretation Comments IMMEDIATE PT (BEAKER) 13.6 seconds 11.7-14.7 (test code = 1487) IMMEDIATE PTT (BEAKER) 26.4 seconds 22.5-36.0 (test code = 1488) IMMEDIATE 1:1 MIX PT 13.2 seconds 11.7-14.7 (BEAKER) (test code = 7225935656) IMMEDIATE 1:1 MIX PTT 27.5 seconds 22.5-36.0 (BEAKER) (test code = 8604929702) 1:1 MIX, 1 HOUR INC PT 13.4 seconds (BEAKER) (test code = 1501) 1:1 MIX, 1 HOUR INC PTT 27.3 seconds (BEAKER) (test code = 1502) MIXING STUDY PATHOLOGIST Normal PT and PTT INTERPRETATION (BEAKER) at baseline and (test code = 9509196569) after incubation. [id number] Christina Ashby M.D (BEAKER) (test code = (electronic 2608) signature) FACTOR 9 [id number] 10:15:32 Test Item Value Reference Range Interpretation Comments FACTOR IX ACTIVITY (BEAKER) (test 157.0 % 60.0-150.0 H code = 666) FACTOR 8 [id number] 10:15:32 Test Item Value Reference Range Interpretation Comments FACTOR VIII ACTIVITY (BEAKER) (test 377.0 % 45.0-150.0 H code = 663) [id number] 05:22:17 Test Item Value Reference Range Interpretation Comments FERRITIN (BEAKER) (test code = 18.37 ng/mL 5.00-275.00 361) Account Receivable Associate ID - LETTY GBASIC METABOLIC [id number] 05:15:22 Test Item Value Reference Range Interpretation [...] not appl icable for dialysis patien ts Account Receivable Associate ID - LETTY [id number] 05:15:22 Test Item Value Reference Range Interpretation Comments MAGNESIUM (BEAKER) (test code = 1.9 mg/dL 1.6-2.6 627) Account Receivable Associate ID - LETTY [id number] 05:15:22 Test Item Value Reference Range Interpretation Comments PHOSPHORUS (BEAKER) (test code = 4.2 mg/dL 2.3-4.7 604) Account Receivable Associate ID - LETTY SUMMERS, TIBC, % SAT. (WITHOUT FERRITIN)2022-02-27 05:01:35 Test Item Value Reference Range Interpretation Comments IRON (BEAKER) (test code = 547) 52.0 ug/dL 40.0-160.0 TOTAL IRON BINDING CAPACITY 211 ug/dL 250-450 L (BEAKER) (test code = 769) IRON % SATURATION (2) (BEAKER) 25 % 20-55 (test code = 2590) Account Receivable Associate ID - LETTY GCBC (HEMOGRAM ONLY)2022-02-27 04:46:45 [...] WBC 0-0 (BEAKER) (test code = 413) [id number] 15:28:00 Test Item Value Reference Range Interpretation [...] Hematology (test Appears Adequate code = PCOMMENT) [id number] 15:28:00 Test Item Value Reference Range Interpretation Comments Hematology (test code Clinic al History: 36 y/o F = PATH) with abdominal pain and vaginalbleeding .Microscopi c examination:W BC: Morpholgically unremarkable leukocytes.RBC: Significanlty d ecreased in number with hyp ochromia andpolychromasi a.PLT: Morphologically unremarkable.Im pression: Marked normocyt ic anemia. Clinical correl ationis recommended.Chr istopher [facility], [facility] T code 96233 Molecular Testing [id number] 12:09:00 Test Item Value Reference Range Interpretation [...] in the absence of viable organism s. PT/[id number] 08:47:17 Test Item Value Reference Range Interpretation [...] 0-0 (BEAKER) (test code = 413) RETICULOCYTE [id number] 07:50:02 Test Item Value Reference Range Interpretation Comments RETICULOCYTE COUNT PCT (BEAKER) (test 2.1 % 0.5-1.7 H code = 575) Account Receivable Associate ID - [id number] AND [id number] 05:48:24 Test Item Value Reference Range Interpretation Comments HEMOGLOBIN (BEAKER) (test code = 8.4 GM/DL 11.2-15.7 L 410) HEMATOCRIT (BEAKER) (test code = 24.4 % 34.1-44.9 L 411) Account Receivable Associate ID - [id number], [id number] 04:24:58 Test Item Value Reference Range Interpretation Comments CALCIUM IONIZED (BEAKER) (test 1.05 mmol/L 1.12-1.27 L code = 698) PH, BLOOD (BEAKER) (test code = 7.42 1810) SARS-CoV2/RT-PCR (Asymptomatic ONLY)2022-02-26 00:54:18 Test Item Value Reference Interpretation Comments Range SARS-COV2/RT-PCR Negative Negative The SARS-Co V-2 (test code = target nucleic 52069-2) acids are not detected in thi s [...] S ARS CoV-2 test is a rapid, real-cherie e RT-PCR test intended for th e [...] revoked sooner. Fact Sheet for Healthcare Providers: https://www.[employer]/Documents/Xp ert%20Xpress%20SAR S%20CoV-2/Fact%20S heets/302-3802%20S ARS-COV-2%20HEALTH CARE%20PROVIDERS%2 0FACT%20SHEET.pdf Fact Sheet for Healthcare Patients: https://www.[employer]/Documents/Xp ert%20Xpress%20SAR S%20CoV-2/Fact%20S heets/302-3801%20S ARS-COV-2%20PATIEN T%20FACT%20SHEET.p df Lab Interpretation Normal (test code = 02218-5) [facility] 00:54:18 Test Item Value Reference Interpretation Comments Range SARS-COV2/RT-PCR Negative Negative The SARS-Co V-2 (test code = target nucleic 63575-5) acids are not detected in thi s [...] S ARS CoV-2 test is a rapid, real-cherie e RT-PCR test intended for th e [...] revoked sooner. Fact Sheet for Healthcare Providers: https://www.[employer]/Documents/Xp ert%20Xpress%20SAR S%20CoV-2/Fact%20S heets/302-3802%20S ARS-COV-2%20HEALTH CARE%20PROVIDERS%2 0FACT%20SHEET.pdf Fact Sheet for Healthcare Patients: https://www.[employer]/Documents/Xp ert%20Xpress%20SAR S%20CoV-2/Fact%20S heets/302-3801%20S ARS-COV-2%20PATIEN T%20FACT%20SHEET.p df Lab Interpretation Normal (test code = 42819-0) [facility]26 00:54:18 Test Item Value Reference Interpretation Comments Range SARS-COV2/RT-PCR Negative Negative The SARS-Co V-2 (test code = target nucleic 38435-8) acids are not detected in thi s [...] S ARS CoV-2 test is a rapid, real-cherie e RT-PCR test intended for th e qualitative detection of nucleic acid fr om SARS-CoV-2 in a [facility]opharyngeal [facility]ab [facility] s suspected of [facility]-19 by [...] revoked sooner. Fact Sheet for Healthcare Providers: https://www.[employer]/Documents/Xp ert%20Xpress%20SAR S%20CoV-2/Fact%20S heets/302-3802%20S ARS-COV-2%20HEALTH CARE%20PROVIDERS%2 0FACT%20SHEET.pdf Fact Sheet for Healthcare Patients: https://www.[employer]/Documents/Xp ert%20Xpress%20SAR S%20CoV-2/Fact%20S heets/302-3801%20S ARS-COV-2%20PATIEN T%20FACT%20SHEET.p df Lab Interpretation Normal (test code = 35752-2) [facility]26 00:54:18 Test Item Value Reference Interpretation Comments Range SARS-COV2/RT-PCR Negative Negative The SARS-Co V-2 (test code = target nucleic 31368-5) acids are not detected in thi s [...] S ARS CoV-2 test is a rapid, real-cherie e RT-PCR test intended for th e qualitative detection of nucleic acid fr om SARS-CoV-2 in a nasopharyngeal swab specimen [facility] s suspected of COVID-19 by [...] revoked sooner. Fact Sheet for Healthcare Providers: https://www.[employer]/Documents/Xp ert%20Xpress%20SAR S%20CoV-2/Fact%20S heets/302-3802%20S ARS-COV-2%20HEALTH CARE%20PROVIDERS%2 0FACT%20SHEET.pdf Fact Sheet for Healthcare Patients: https://www.[employer]/Documents/Xp ert%20Xpress%20SAR S%20CoV-2/Fact%20S heets/302-3801%20S ARS-COV-2%20PATIEN T%20FACT%20SHEET.p df Lab Interpretation Normal (test code = 28163-7) [facility]26 00:54:18 Test Item Value Reference Interpretation Comments Range SARS-COV2/RT-PCR Negative Negative The SARS-Co V-2 (test code = target nucleic 08213-0) acids are not detected in thi s [...] S ARS CoV-2 test is a rapid, real-cherie e RT-PCR test intended for th e [...] revoked sooner. Fact Sheet for Healthcare Providers: https://www.[employer]/Documents/Xp ert%20Xpress%20SAR S%20CoV-2/Fact%20S heets/302-3802%20S ARS-COV-2%20HEALTH CARE%20PROVIDERS%2 0FACT%20SHEET.pdf Fact Sheet for Healthcare Patients: https://www.[employer]/Documents/Xp ert%20Xpress%20SAR S%20CoV-2/Fact%20S heets/3023801%20S ARS-COV-2%20PATIEN T%20FACT%20SHEET.p df Lab Interpretation Normal (test code = 70713-1) [facility]2022-[facility]-26 00:54:18 Test Item Value Reference Interpretation Comments Range SARS-COV2/RT-PCR Negative Negative The SARS-Co V-2 (test code = target nucleic 37244-5) acids are not detected in thi s [...] S ARS CoV-2 test is a rapid, real-cherie e RT-PCR test intended for th e [...] revoked sooner. Fact Sheet for Healthcare Providers: https://www.[employer]/Documents/Xp ert%20Xpress%20SAR S%20CoV-2/Fact%20S heets/3023802%20S ARS-COV-2%20HEALTH CARE%20PROVIDERS%2 0FACT%20SHEET.pdf Fact Sheet for Healthcare Patients: https://www.[employer]/Documents/Xp ert%20Xpress%20SAR S%20CoV-2/Fact%20S heets/302-3801%20S ARS-COV-2%20PATIEN T%20FACT%20SHEET.p df Lab Interpretation Normal (test code = 76403-0) [facility]26 00:54:18 Test Item Value Reference Interpretation Comments Range SARS-COV2/RT-PCR Negative Negative The SARS-Co V-2 (test code = target nucleic 57630-0) acids are not detected in thi s [...] S ARS CoV-2 test is a rapid, real-cherie e RT-PCR test intended for th e [...] revoked sooner. Fact Sheet for Healthcare Providers: https://www.[employer]/Documents/Xp ert%20Xpress%20SAR S%20CoV-2/Fact%20S heets/302-3802%20S ARS-COV-2%20HEALTH CARE%20PROVIDERS%2 0FACT%20SHEET.pdf Fact Sheet for Healthcare Patients: https://www.[employer]/Documents/Xp ert%20Xpress%20SAR S%20CoV-2/Fact%20S heets/302-3801%20S ARS-COV-2%20PATIEN T%20FACT%20SHEET.p df Lab Interpretation Normal (test code = 29999-2) [facility]2022-02-26 00:54:18 Test Item Value Reference Range Interpretation Comments SARS-COV2/RT-PCR Negative Negative The SARS-Co V-2 target (test code = nucleic acids a re not 1466493) detected in thi s specimen. Negative result [...] revoked sooner. Fact Sheet for Healthcare Providers: https://www.[employer]/Documents/Xpert%20Xpress%20SARS%20CoV-2/Fact%20Sheets/302-3802%55FYXX-DOP-8%20 HEALTHCARE%20PROVIDERS%20FACT%20SHEET.pdf Fact Sheet for Healthcare Patients: https://www.[employer]/Documents/Xpert%20Xp ress%20SARS%20CoV-2/Fact%20Sheets/302-3801%13VLOM-ETX-3%20PATIENT%20FACT%20SHEET .pdfCOMPREHENSIVE METABOLIC [id number] 22:35:11 Test Item Value Reference Range Interpretation [...] not appl icable for dialysis patien ts Account Receivable Associate ID - [id number] 22:34:35 Test Item Value Reference Range Interpretation Comments MAGNESIUM (BEAKER) 2.1 mg/dL 1.6-2.6 Specimen slightly (test code = 627) hemolyzed Account Receivable Associate ID - [id number] TIME/[id number] 22:30:47 Test Item Value Reference Range Interpretation Comments PROTIME (BEAKER) 15.3 seconds 11.9-14.2 H (test code = 759) INR (BEAKER) (test 1.28 See_Comment [Automat ed message] code = 370) The system [employer] generated this result transmitted ref erence range: <=5.90. The reference range was not used to int erpret this result as normal/abnormal . RECOMMENDED COUMADIN/WARFARIN INR THERAPY RANGESSTANDARD DOSE: 2.0 - 3.0 Includes: PROPHYLAXIS for venous thrombosis, systemic embolization; TREATMENT for venous thrombosis and/or pulmonary embolus.HIGH RISK: Target INR is 2.5-3.5 for patients with mechanical heart valves.CBC W/PLT COUNT & AUTO [id number] 22:15:27 Test Item Value Reference Range Interpretation [...] (test code = 2801) Packed Cells - Hnmsiwloenhn4668-29-73 21:30:[id number] ON LRPC TRANSFUSED 02/25/22 1155 [id number] AP LRPC TRANSFUSED 02/25/22 1318 [id number] AP LRPC TRANSFUSED 02/25/22 1529Type [id number] 21:30:00 Test Item Value Reference Range Interpretation [...] from now? NOVaginitis Panel 3 by DNA [id number] 17:54:00 Test Item Value Reference Range Interpretation Comments Vaginitis Panel 3 by DNA Probe VPIIICANDI (test code = VP3) Vaginitis Panel 3 by DNA Probe N (test code = VP31) Vaginitis Panel 3 by DNA Probe VPIIITRICH (test code = VP31) [id number] 17:33:00 Test Item Value Reference Range Interpretation [...] code = BASO#) 0.0 thou/uL 0.0-0.2 N Xpalnoxzwy4727-59-20 16:38:00 Test Item Value Reference Range Interpretation [...] Seen UABAC) Urine Source: Urine VoidedMolecular Testing [id number] 15:14:00 Test Item Value Reference Range Interpretation Comments Molecular Testing Not Detected NotDetected Performanc e of the MM (test code = Cepheid SARS -CoV-2 has [id number]) only beenestab lished in nasopharyngeal swab specimens. [...] Test: UnknownHospitalized: UnknownICU: UnknownDate of Symptom Onset: [id number]: UnknownReason for Testing: Admission ScreeningSource: Nasopharyngeal SwabSymptomatic as defined by CDC: UnknownChemistry - Specials 2022-02-25 12:36:00 Test Item Value Reference Range Interpretation Comments Chemistry - Specials Negative NEGATIVE Method of sensitivity- (test code = BHCGST) Demareter minant: results should be repea erna after 48-72 hrs Positive: resul ts may be detected as early as 1 day after the first missed me nses. Comment add on to prior labsRetype Verify-Blood Type [id number] 12:14:00 Test Item Value Reference Range Interpretation Comments Blood Type Rh (test code = BT) A POSITIVE [id number] 11:38:00 Test Item Value Reference Range Interpretation [...] EGFRCR) Estimated GFR: Greater than 90 mL/min/1.73 o7Jgbppcis eGFR is based on the CKD-EPI 1 equation thatdo es not use a race [...] code 8 U/L 8-55 N = ALT) Tskgtudof0082-93-53 11:38:00 Test Item Value Reference Range Interpretation Comments Chemistry (test code = LIP) 13 U/L 8-78 N Chemistry - Tpwoaoo4290-16-42 11:37:00 Test Item Value Reference Range Interpretation Comments Chemistry - Lactate (test code = 1.9 mmol/L 0.5-2.2 N LACTSEP-T) HGB [id number] 18:56:00 Test Item Value Reference Range Interpretation Comments HEMOGLOBIN (test code = HGB) 10.0 G/DL 12.0-16.0 L HEMATOCRIT (test code = HCT) 30.3 % 37-47 L MEAN CELL HGB CONCENTRATION (test 33.0 G/DL 33-37 N code = MCHC) - DUP AB/PEL/SC [id number] 18:20:00 [facility] 1985 Sex: F Patient Name: YULIYA LARA Unit No: [id number] EXAMS: CPT CODE: [id number] DUP AB/PEL/SC COMP 78400 EXAMINATION: - DUP AB/PEL/SC COMP, - US [...] cyst. Otherwise unremarkable exam. at 1820 Reported andsigned by: Cheikh Chua MD CC: Armond Owens MD; Dallin Sanchez DO Technologist: Sanjuanita Woo, Trnscrbd D/ (1819) t.AMBERR.[email or web address] Orig Print D/T: S: 10/11/2021 (1822) [facility]: [facility] [address] PHYS: [id number] [place] [address] : 1985 AGE: 36 SEX: F LOC: SHERRI PHONE #: [phone] EXAM DATE: 10/11/2021 STATUS: REG ER FAX #: RAD NO: Page 1 Signed Report- US PELVIC [id number] 18:20:00 [facility] : 1985 Sex: F Patient Name: YULIYA LARA Unit No: [id number] EXAMS: CPT CODE: [id number] US PE LVIC COMPLETE 40999 EXAMINATION: - DUP AB/PEL/SC COMP, - US [...] Orig Print D/T: S: 10/11/2021 (1822) Probe: [facility] NAME: YULIYA LARA [address] PHYS:[place] [address] : 1985 AGE: 36 SEX: F LOC: SHERRI PHONE #: [phone] EXAM DATE: 10/11/2021 STATUS: REG ER FAX #: RAD NO: Page 1 Signed Report- US TRANSVAGINAL NON [id number] 18:20:00 [facility] : 1985 Sex: F Patient Name: YULIYA LARA Unit No: [id number] EXAMS: CPT CODE: [id number] [place] [address] EXAMINATION: - DUP AB/PEL/SC COMP, - US TRANSVAGINAL NON OB, - US PELVIC COMPLETE INDICATION: BLEEDING COMPARISON: None available at time of dictation LOCATION: [facility] TECHNIQUE: Grayscale and color Doppler and [...] Orig Print D/T: S: 10/11/2021 (1822) Probe: [id number] [facility] NAME: YULIYA LARA [address] PHYS: [place] [address] : 1985 AGE: 36 SEX: F LOC: SHERRI PHONE #: [phone] EXAM DATE: 10/11/2021 STATUS: REG ER FAX #: RAD NO: Page 1 Signed [id number] 17:27:00 Test Item Value Reference Range Interpretation Comments GLUBED (test code = 80 MG/DL 65-99 N Performe d by certified GLUBED) 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 UnknownTHROMBOPLASTIN TIME [id number] 14:40:00 Test Item Value Reference Range Interpretation Comments THROMBOPLASTIN TIME 30.9 SECONDS 24.7-38.0 N *Therap eutic level PARTIAL (test code = for hep felecia: 1.5 - PTT) 2.5 times the average patient value of 30.0 seconds. The aP TT tet should not be used to evaluat e low moleculat weigh t heparin anticoagulant therapy. Is patient on anticoagulants? UnknownCOMPREHENSIVE METABOLIC [id number] 14:34:00 Test Item Value Reference Range Interpretation [...] TOTAL (test code = ALKP) TROP-I HIGH [id number] 14:34:00 Test Item Value Reference Range Interpretation [...] taking high doses of Biotin. HCG SERUM [id number] 14:27:00 Test Item Value Reference Range Interpretation [...] using aquantitative h CG assay. CBC W/AUTO [id number] 14:24:00 Test Item Value Reference Range Interpretation [...] x10 3/uL 0.0-0.2 N AG HEPATITIS B [id number] 12:39:00 Test Item Value Reference Range Interpretation Comments AG HEPATITIS B SURFACE (test code = Negative Negative HBSAG) AB RUBELLA [id number] 12:39:00 Test Item Value Reference Range Interpretation Comments AB RUBELLA IGG (test code = RUBGAB) 1.77 IMMUNE >0.99 HIV 1 2 COMBO AG/AB [id number] 12:39:00 Test Item Value Reference Range Interpretation Comments HIV 1 2 COMBO AG/AB Non Reactive NonReactive HIV 4th Generation SCREEN (test code = Detects HIV-specific [id number]) antibodies and HIV-p24 antigen. 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 [facility] SRCIST) RAPID PLASMA [id number] 09:39:00 Test Item Value Reference Range Interpretation Comments RAPID PLASMA REAGIN (test code = Nonreactive Nonreactive RPR) HIV 1/2 RAPID [id number] 09:39:00 Test Item Value Reference Range Interpretation Comments HIV 1/2 RAPID SCREEN (test code = NonReactive NonReactive VFP09YLF) RAPID PLASMA [id number] 09:17:00 Test Item Value Reference Range Interpretation Comments RAPID PLASMA REAGIN (test code = RPR) Nonreactive HIV 1/2 RAPID [id number] 09:17:00 Test Item Value Reference Range Interpretation Comments HIV 1/2 RAPID SCREEN (test code = NonReactive NonReactive WRE52IZW) DRUG OF ABUSE SCREEN [id number] 06:33:00 Test Item Value Reference Interpretation Comments [...] by scott mazariegos methods (i.e., GC/MS) at [facility]. Results of scre en may not be usedin crimi nal justice, job performance or professionalcre dential review, or infa nt custody issues. Negativ e [place] Level ng/ml ------- ----- Cocaine 3 00 Methamphetamine (Ecstacy) 500 Cannabinoid s (THC) 50 Amphetamine 100 0 Barbiturates 20 0 Benzodiazepines 200 Opiates 300 Phe ncyclidine (PCP) 25 UA RFLX [id number] 05:46:00 Test Item Value Reference Range Interpretation [...] URINE SOURCE: Clean CatchCOVID 19 Asymptomatic IH [id number] 05:13:00 Test Item Value Reference Interpretation Comments [...] allows for the detection o f SARS-CoV gdoEBJX-TvR-8. The test detects, but does not differentiate,b etween the two viruses. " Resu lts are for the identification of FVXU-RqE-9ulegx ocapsid protein antigen. Antige n is generallydetect [...] Compliance, or Certificate of Accreditation CBC W/AUTO [id number] 05:00:00 Test Item Value Reference Range Interpretation [...] X10 3/uL 0.0-0.2 N NRBC#) AB RUBELLA [id number] 08:19:00 Test Item Value Reference Range Interpretation Comments AB RUBELLA IGG (test 1.22 index Immune >0.99 Non-im mune <0.90 code = RUBGAB) Equivocal 0.9 0 - 0.99 Immune >0.99Per formed At: [facility] [address] [facility]jose[facility] [place], [place] [id number] Everardo Schmidt MD Ph:[phone] [id number] 06:07:00 Test Item Value Reference Range Interpretation Comments HEMATOCRIT (test code = HCT) 32.0 % 37-47 L ISTAT CORD [id number] 20:50:00 Test Item Value Reference Range Interpretation [...] Performe d by certified (test code = 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 Results US Pelvic Transvag W Doppler HISTORY: Vaginal bleeding.Thickened endometrium noted on CT done earlier today. COMPARISON: CT study done today. FINDINGS: Real-time imaging of the pelvis was obtained transabdominally and with an endovaginal probe. The uterus measures 5 x 7.6 x 12.5 cm in size. No focal fibroids. A thickened heterogeneous endometrium at 2.6 cm. Ovaries are not visualized. IMPRESSION: Thickened endometrium. No uterine fibroids. Nonvisualization of the ovaries. Reported By:Amalia Luna MD Electronically Signed Date/Time: 03/18/222126 Technologist: CHRIS Dictated Date/Time: 03/18/222125 Transcribed Date/Time:CT Abdomen Pelvis W Con [facility] BR[facility]ANName: YULIYA HAMILTON : 1985 [facility] Pt Name: YULIYA HAMILTON [address] [employer] Phys: Boy Ndiaye MD, [place] [address] : 1985 Age: 36 SEX:F [phone] Exam Date: 03/18/22 Status: REG ER Acct: [id number] Loc: ERS Pt Unit #: [id number] Report #: [id number] CC: EDTEMP PROVIDER Boy Ndiaye MD CAT SCAN REPORT Report Status: Signed Order # Category/Exam [id number] CT/CT Abdomen Pelvis W Con ([id number]): . Results CT Abdomen Pelvis W Con [...] By: Amalia Luna MD Electronically Signed Date/Time: 03/18/22 1950 Technologist: AALIYAH.FV Dictated Date/Time: 03/18/221945 Transcribed Date/Time:XR Chest 1 View Portable [facility] BRYANName: YULIYA HAMILTON : 1985 [facility] Pt Name: YULIYA HAMILTON [address] Phys: Boy Ndiaye [place], [place] [address] : 1985 Age: 36 SEX:F [phone] Exam Date: 03/18/22 Status: REG ER Acct: [id number] Loc: ERS Pt Unit #: [id number] Report #: [id number] CC: Boy Ndiaye MD IMAGING SERVICES REPORT Report Status: Signed Order # Category/Exam [id number] RAD/XRChest 1 View Portable ([id number]): . Results XR Chest 1 View Portable [...] Con Name: YULIYA PHILIP : 1985 [facility] Pt Name: YULIYA PHILIP [address] Phys: [place] [address] : 1985 Age: 36 SEX:F Exam Date: 03/10/22 Status: ADM IN Acct: [id number] Loc: [facility] Pt Unit #: [id number] Report #: [id number] CC: Narcisa Ruiz MD MRI REPORT ReportStatus: Signed Order # Category/Exam [id number] MRI/MRI Pelvis W WO Con ([id number]): . Results MRI Pelvis W WO Con [...] Reported By: SALEEM MCGILL Electronically Signed Date/Time: 03/12/22 08 Technologist: ALONZO Dictated Date/Time: 03/12/22 0801 Transcribed Date/Time: Renal Bilateral STANDARD Name: YULIYA PHILIP : 1985 [facility] Pt Name: YULIYA PHILIP [address] [facility] Phys: Gurmeet Naylor III, [place] [address] : 1985 Age: 36 SEX:F Exam Date: 03/09/22 Status: ADM IN Acct: [id number] Loc: [facility] Pt Unit #: [id number] Report #: [id number] CC: Bárbara Lemons MD, III, Joe MD ULTRASOUND REPORT Report Status: Signed Order # Category/Exam [id number] ULT/US Renal Bilateral STANDARD ([id number]): . Results US Renal Bilateral STANDARD HISTORY: [...] 03/09/221714 Transcribed Date/Time:US Pelvic Transvag W Doppler [facility] : 1985 [facility] Pt Name: YULIYA PHILIP [address] Phys: [place] [address] : 1985 Age: 36 SEX:F [phone] Exam Date: 03/09/22 Status: DEP ER Acct: [id number] Loc: [facility] Pt Unit #: [id number] Report #: [id number] CC: Livier Carver MD ULTRASOUND REPORT Report Status: Signed Order # Category/Exam [id number] ULT/US Pelvic Transvag W Doppler ([id number]): . Results PRELIMINARY REPORT EXAM: US Pelvis, Complete. CLINICAL HISTORY: HX: VAG BLEEDING, CERVICAL MASS. SEE NOTES ON LAST IMAGE. THANKS TECHNIQUE: Transvaginal and transabdominalpelvic ultrasound (complete) with image documentation. COMPARISON: CT - CT ABDOMEN PELVIS W CON - 03/09/2022 02:04 AM PRE PRESS MANAGER FINDINGS: ENDOMETRIUM: Normal thickness. UTERUS/CERVIX: Measures 9.5 [...] correlation is advised witha view to possible biopsy.ELECTRONICALLY SIGNED BY: Murali Medina MD Mar 09, 2022 5:24:05 AM PRE PRESS MANAGER US Pelvic Transvag W Doppler HISTORY: Vaginal [...] 0756 Transcribed Date/Time:CT Abdomen Pelvis W Con [facility] : 1985 [facility] Pt Name: YULIYA PHILIP [employer] Phys: [place] [address] : 1985 Age: 36 SEX:F [phone] Exam Date: 03/09/22 Status: DEP ER Acct: [id number] Loc: ERS Pt Unit #: [id number] Report #: [id number] CC: Livier Carver MD CAT SCAN REPORT Report Status: Signed Order # Category/Exam [id number] CT/CT Abdomen Pelvis W Con ([id number]): . Results PRELIMINARY REPORT EXAM: CT Abdomen and Pelvis with Intravenous Contrast CLINICAL HISTORY: Patient is a 36-year-old inmate who presents to the emergency department with a 2-week history of pelvic pain, increased vaginal bleeding reports to 8-9 blood-filled pads and now also com plaining of retrosternal chest tightness as though "an elephant is sitting on her chest". Patient denies history of heart disease. Patient seen about a month ago and diagnosed with a pelvic mass was transferred to [facility] for further evaluation and treatment. Patient is currently not on any hormonal therapy. TECHNIQUE: Axial computed tomography images of the abdomen and pelvis with intravenous contrast. CONTRAST: With; ISOVUE 370,80mL COMPARISON: None provided. FINDINGS: LUNG BASES: There is bibasilar subsegmental atelectasis. LIVER: Unremarkable. GALLBLADDER AND BILE DUCTS: There is mild nonspecific gallbladder wall edema. PANCREAS: Unremarkable. SPLEEN: Unremarkable. ADRENAL GLANDS: Unremarkable. KIDNEYS, URETERS, AND BLADDER: Unremarkable. No hydronephrosis or nephrolithiasis. No ureteral or bladder calculi. STOMACH AND BOWEL: There is a moderate fecal load noted throughout the colon. Correlate for history of constipation. APPENDIX: A normal appendix is identified. PERITONEUM: No free fluid.No free air. LYMPH NODES: No lymphadenopathy. REPRODUCTIVE: There is masslike prominence of the cervix, which appears enlarged and measures approximately 7.8 x5.4 cm ( series 2, image 80). Further characterization with pelvic ultrasound can be obtained if not already recently obtained. VASCULATURE: Noaortic aneurysm. BONES: No fracture or suspicious osseous abnormality. ABDOMINAL WALL AND SOFT TISSUES: Unremarkable. IMPRESSION: 1. There is a moderate fecal load noted throughout the colon. Correlatefor history of constipation. 2. There is mild nonspecific gallbladder wall edema. 3. There is masslike prominence of the cervix, which appears enlarged and measures approximately 7.8 x 5.4 cm ( series 2, image 80). Further characterization with pelvic ultrasound can be obtained if not already recentlyobtained. ELECTRONICALLY SIGNED BY: Ana Rosales MD Mar 09, 2022 3:13:[address] Abdomen Pelvis W Con HISTORY: Pelvic pain and increased vaginal bleeding. COMPARISON: Ultrasound examination of the pelvis done same day. FINDINGS: Lung bases show subsegmental atelectatic change. There may be some minimal pneumonitis changes in the left lower lobe. The liver, spleen, pancreas and gallbladder regions shawn ear unremarkable. Right and left adrenal glands and right and left kidneys are normal. There is no significant periaortic or mesenteric adenopathy. The appendix is normal in size. It is retrocecal in location. CT of pelvis performed with contrast: There is masslike fullness to the lower uterine segment or cervix region. No significant pelvic lymphadenopathy no free fluid. IMPRESSION: Ill- defined masslike fullness to the lower uterine segment or cervix region. This does not have a typical appearance of a fibroid. Cervical mass is not excluded. Gynecologic consultation is recommended. This report is in agreement with the temporary report. Transcribed Date/Time: 03/09/2022 10:08 AM Reported By: Amalia Luna MD Electronically Signed Date/Time: 03/09/22 1242 Technologist: Dictated Date/Time: 03/09/2211 Transcribed Date/Time:XR Chest 1 View Portable [facility] : 1985 [facility] Pt Name: YULIYA PHILIP [employer] Phys: ER* STANDING MEDICAL DOC ORDER [place] [address] : 1985 Age: 36 SEX:F [phone] Exam Date:03/08/22 Status: REG ER Acct: [id number] Loc: ERS Pt Unit #: [id number] Report #: [id number] CC: ER* STANDING MEDICAL DOC ORDER IMAGING SERVICES REPORT Report Status: Signed Order # Category/Exam [id number] RAD/XR Chest 1 View Portable ([id number]): . Results XR Chest 1 View Portable History: Chestpain Comparison: None. Findings: Lungs are clear. No pneumothorax. No effusion. No acute osseous abnormality. Impression: No acute intrathoracic abnormality. Reported By: SALEEM MCGILL Electronically Signed Date/Time: 03/08/222345 Technologist: LIZETT Dictated Date/Time: 03/08/222339 Transcribed Date/Time:US Pelvic Transvag W Doppler [facility] : 1985 [facility] Pt Name: YULIYA HAMILTON [address] Phys: [place] [address] : 1985 Age: 36 SEX:F [phone] Exam Date: 02/25/22 Status: REG ER Acct: [id number] Loc: ERS Pt Unit #: [id number] Report #: [id number] CC: DialloLouisa avitia ULTRASOUND REPORT Report Status: Signed Order # Category/Exam [id number] ULT/US Pelvic Transvag W Doppler ([id number]): . Results Exam: Pelvic ultrasound including Transvaginal, [...] with neoplasm being a strong concern. Follow-up pelvicMRI with and without IV contrast recommended for further assessment. Reported By: Woody Ramirez MD Electronically Signed Date/Time: 02/25/22 1502 Technologist: Dictated Date/Time: 02/25/22 1456 Transcribed Date/Time:XR Chest 1 View [facility]ableL[facility]bury [facility] Centerm[facility]: [facility]AMIL[facility] : 1985 [facility] Pt Name: YULIYA HAMILTON [address] [employer] [place]: [place] [address] : 1985 Age: 36 SEX:F [phone] Exam Date: 02/25/22 Status: REG ER Acct: [id number] Loc: ERS Pt Unit #: [id number] Report #: [id number] CC: Louisa Sosa DO IMAGING SERVICES REPORT Report Status: Signed Order # Category/Exam [id number] RAD/XR Chest 1 View Portable ([id number]): . Results XR Chest 1 View Portable HISTORY: Cough COMPARISON: None FINDINGS: The heart size is normal. The lungs are well expanded without focal areas of consolidation, pneumothorax or pleural effusions. IMPRESSION: No radiographic evidence of acute cardiopulmonary process. Reported By: Mat Diaz MD Electronically Signed Date/Time: 02/25/221120 Technologist: EVELYN Dictated Date/Time: 02/25/221120 Transcribed Date/Time: CT Abdomen Pelvis W Con [facility] : 1985 [facility] Pt Name: YULIYA HAMILTON [address] [place]: [place] [address] : 1985 Age: 36 SEX:F [phone] Exam Date: 02/25/22 Status: REG ER Acct: [id number] Loc: ERS Pt Unit #: [id number] Report #: [id number] CC: ED TEMP PROVIDER Louisa Sosa DO CAT SCAN REPORT Report Status: Signed Order # Category/Exam [id number] CT/CT Abdomen Pelvis W Con ([id number]): . Results CT abdomen and pelvis with [...] Aaron Stone MD Electronically Signed Date/Time: 02/25/22 1329Technologist: JOAN Dictated Date/Time: 02/25/22 1325 Transcribed Date/Time: Notes Date/Time Note Provider Source 2022-03-16 18:34:00-00:[address] [facility] [place] [place] Name: YULIYA RODRÍGUEZ Gabe Casas STLSJX [address] [facility] : 1985, Age: 36, S ex: [place] [address] Unit #: [id number], St atus: DIS IN Location: [address] Report D[address].: Gabe Casas DO Admission Date: 03/09/22 Report #: [id number] Discharge Date: 03/12/22 CC: Hospitalist Progress Note [...] She reports outpatient follow-up with provider at [facility] in [place], Dr. Stringer, last visit 2 weeks ago. She states she was seen at [facility] on 02/25 for vaginal bleeding concerns, and was given 3 units of PRBC for symptomati c anemia at that time. She returned to the [facility] yesterday with onset of pelvic pain [...] given Demerol IM by primary team Continue [place] Hypotension Baseline BP maintaining 99/50 since initial pre sentation to [facility]. Closely monitor vital signs Continue IVF Chronic Constipation As needed MiraLAX, Colace Monitor I/O UTI Continue IV ceftriaxone Trend labs, trend cultures Squamous cell carcinoma cervix Continue outpatient followin g with provider at [facility] in [place], [place], Dr. Stringer. [facility] [place]. Pending MRI outpatient for cancer staging once released from current facility. STEEL FITTER following. Patient is G 19, P 11, A8, serum preg negative. Patient medically stable. Ho spitalist team will sign off for now. Reconsult us should you need us. Thank you for this consult ===== DVT prophylaxisSCD. GI prophylaxisProtonix. CODE STATUSfull code. Total time spent in care of this patient: 40 min utes <Electronically signed by Gabe Casas MD> 09/292022-03-13 14:15:00-00:00 [facility] Name: YULIYA PHILIP Ching Layne STLSJX [address] [facility] : 1985, Age: 36, S ex: [place] [address] Unit #: [id number], S tatus: DIS IN Location: [address] Dictated by: Ching Layne MD *r Admission Date: 03/09/22 Report #: [id number] Discharge Date: 03/12/22 CC: Ching Layne MD *r NO PCP PROVIDER Bárbara Lemons MD, Thomas DO DISCHARGE SUMMARY REPORT Report Status: Signed DATE OF ADMISSION: 03/09/2022 DATE OF DISCHARGE: 03/12/2022 RESIDENT: Dr. Ching Layne. ADMITTING PHYSICIAN: Dr. Naylor. DISCHARGING PHYSICIAN: Dr. Sheldon. CONSULT: General Medicine. PROCEDURES: Renal ultrasound on 03/09/2022, [facility] shows unremarkable renal ultrasound. Pelvic MRI on [...] bleeding. She was trans ferred to the [facility] in [place] on 02/25/2022 after she was seen for pelvic pain and bleeding and was seen by gynecologic oncologist, Dr. Stringer, who found a cervical mass suspicious for cancer. 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 She was later discharged from [facility] and was stable. She was due to [...] that she can easily get at the prison that is stronger than NSAIDs. Encouraged patient to schedule routine followu p with her gynecologic oncologist, Dr. Stringer, at [facility] for further management for squamous cell carcinoma of the cervix. DISPOSITION: Stable. DISCHARGE INSTRUCTIONS: 1. Location, to prison. 2. Diet; regular diet. 3. Activity as tolerated. 4. Followup: Followup with Dr. Stringer, Gynecologic Oncology as previously scheduled for further management of the cervical cancer. Job ID: [id number] Dictated by: Ching Layne MD *r <Electronically signed by Ching Layne MD *r> 04/18/22 0924 <Electronically signed by Ulysses Sheldon MD> 0842 Dictated Date/Time: 04/15/22 1653 Transcribed Date/Time: 04/16/22 0405 Boat Dispatcher: LOPEZ 2022-03-12 06:38:00-00:[address] [facility] [place] Name: YULIYA RICARDO Ching Layne STLSJX [address] [facility] : 1985, Age: 36, S ex: [place] [address] Unit #: [id number], St atus: ADM IN Location: [address] Report Dict Dr.: Ching Layne MD *r Admission Date: 03/09/22 Report #: [id number] Discharge Date: CC: Brief Progress Note Report [...] the Cervix -following w Dr Myke Mallory, TUBE CUTTER OPERATOR Onc -MRI done for staging, pending official read. unable to get ahold of radiology -bleeding stable, vitals stable -pain controlled, will d/c with Tylenol #3 GERD -improved w Pepcid dispo: back to prison today. <Ulysses Sheldon - Last Filed: 03/12/22 [...] above. <Electronically signed by Ching Layne MD> 03/12/2239 <Electronically signed by SARAH SHELDON MD> 03/1244 2022-03-11 18:36:00-00:[address] [facility] [place] Name: ISAIAH FRANKGabe Frankel STLSJX [address] [facility] : 1985, Age: 36, S ex: [place] [address] Unit #: [id number], St atus: ADM IN Location: [address] Report Dict : Gabe Casas DO Admission Date: 03/09/22 Report #: [id number] Discharge Date: CC: Hospitalist Progress Note Report [...] 1850 1560 1550 Output Total 41 1999 175 Balance 1809 -440 -203 Result Diagrams: 03/10/22 [...] 14:56 Sodium Chloride IVPB 100 mls Q24HR AXEL Administration Lactated Ringer's 1,000 mls @ 75 mls/hr 03/10/22 07:45 03/11/22 05:56 Lactated Ringer's IV 1,000 mls .[id number] AXEL Administration Lorazepam 0.5 mg 03/11/22 15:24 03/11/22 [...] She reports outpatient follow-up with provider at [facility] in [place], Dr. Stringer, last visit 2 weeks ago. She states she was seen at [place] [facility] on 02/25 for vaginal bleeding concerns, and was given 3 units of PRBC for symptomati c anemia at that time. She returned to the [place] ED yesterday with onset of pelvic pain [...] given Demerol IM by primary team Continue [place] Hypotension Baseline BP maintaining 99/50 since initial pre sentation to [place] [facility]. Closely monitor vital signs Continue IVF Chronic Constipation As needed MiraLAX, Colace Monitor I/O UTI Continue IV ceftriaxone Trend labs, trend cultures Squamous cell carcinoma cervix Continue outpatient followin g with provider at [facility] in [place], [place], Dr. Stringer. Patient states she is on [facility] in [place], [place]. Pending MRI outpatient for cancer staging once released from current facility. STEEL FITTER following. Patient is G 19, P 11, A8, serum preg negative. ===== DVT prophylaxisSCD. GI prophylaxisProtonix. CODE STATUSfull code. Total time spent in care of this patient: 40 min utes <Electronically signed by Gabe Casas MD> 05/022022-03-11 18:33:00-00:00 [place] [facility] Name: YULIYA RICARDO Ching Layne STLSJX [address] [facility] : 1985, Age: 36, Sex: [place] [address] Unit #: [id number], St atus: ADM IN Location: [address] Report Dict Dr.: Ching Layne MD *r Admission Date: 03/09/22 Report #: [id number] Discharge Date: CC: Brief Progress Note Report Status: Signed <Ching Layne J - Last Filed: 03/11/22 18:33> - Brief Progress Note Encounter Date: 03/11/22 Encounter Time: 18:33 went to patient bedside to andrew lawrence in on her. she states she feels [...] Addendum - Attending - Attending Attestation Date/Time: 03/11/221856 I personally evaluated the p atient and [...] signed by SARAH SHELDON MD> 03/112022-03-11 06:15:00-00:[address] [facility] [place] Name: YULIYA RICARDO Ching Layne STLSJX [address] [facility] : 1985, Age: 36, S ex: [place] [address] Unit #: [id number], St atus: ADM IN Location: [address] Report Dict Dr.: Ching Layne MD *r Admission Date: 03/09/22 Report #: [id number] Discharge Date: CC: Brief Progress Note Report [...] the Cervix -following w Dr Myke Mallory, TUBE CUTTER OPERATOR Onc -MRI done for staging, pending official read -bleeding stable, vitals stable -pain controlled, will d/c with Tylenol #3 dispo: back to prison today. w ill talk w guard when they are in room to see about where to send patient's pain meds <Narcisa Ruiz - Last Filed: 03/11/22 07:15> Addendum - Attending - Attending Attestation Date/Time: 03/11/22713 I personally evaluated the p atient and discussed the management with Dr. Layne. I agree with the History, Ex amination, Assessment and Plan documented above. D/c back to prison today. MRI done but not reported. Can send to [facility] onc w hen requested. <Electronically signed by Ching Layne MD> 0 03/11/2207 <Electronically signed by Narcisa Ruiz MD> 16 2022-03-10 16:38:00-00:[address] [facility] [place] Name: YULIYA RICARDO Gabe Casas STLSJX [address] [facility] : 1985, Age: 36, S ex: [place] [address] Unit #: [id number], St atus: ADM IN Location: [address] Report Dict : Gabe Casas DO Admission Date: 03/09/22 Report #: [id number] Discharge Date: CC: Hospitalist Progress Note Report [...] 14:48 Sodium Chloride IVPB 100 mls Q24HR AXEL Administration Lactated Ringer's 1,000 mls @ 75 mls/hr 03/10/22 07:45 03/10/22 08:03 Lactated Ringer's IV 1,000 mls .[id number] AXEL Administration Pantoprazole Sodium 40 mg 03/10/22 09:00 3 08:03 Pantoprazole 40 Mg Tab PO 40 mg DAILY AXEL Administration Polyethylene Glycol 17 gm 03/09/22 18:00 [...] She reports outpatient follow-up with provider at [facility] in [place], Dr. Stringer, last visit 2 weeks ago. She states she was seen at [place] [facility] on 02/25 for vaginal bleeding concerns, and was given 3 units of PRBC for symptomati c anemia at that time. She returned to the [place] ED yesterday with onset of pelvic pain [...] given Demerol IM by primary team Continue [place] Hypotension Baseline BP maintaining 99/50 since initial pres entation to [place] [facility]. Closely monitor vital signs Continue IVF Chronic Constipation As needed MiraLAX, Colace Monitor I/O UTI Continue IV ceftriaxone Trend labs, trend cultures Squamous cell carcinoma cervix Continue outpatient followin g with provider at [facility] in [place], [place], Dr. Stringer. Patient states she is on [facility] in [place], [place]. Pending MRI outpatient for cancer staging once released from current facility. STEEL FITTER following. Patient is G 19, P 11, A8, serum preg negative. ===== DVT prophylaxisSCD. GI prophylaxisProtonix. CODE STATUSfull code. Total time spent in care of this patient: 40 min utes <Electronically signed by Gabe Casas MD> 04/01 1639 2022-03-10 06:35:00-00:[address] [facility] [place] Name: MAC RICARDOARET Gurmeet Naylor STLSJX [address] [facility] : 1985, Age: 36, S ex: [place] [address] Unit #: [id number], St atus: ADM IN Location: [address] Report Dict Dr.: Gurmeet Naylor III, MD Admission Date: 03/09/22 Report #: [id number] Discharge Date: CC: Brief Progress Note Report Status: Signed - Brief Progress Note Encounter Date: 03/10/22 Encounter Time: 06:20 S HD #2 Continues with moderate bilateral pelvi c pain. No excessive vaginal bleeding. HD #2 rocephin. States that she slipped and fel l in the bathroom earlier. Did not hit her head, no injury. Did not notif y the nursing staff. No shortness of breath, [...] Naylor III, MD> 05/30 1335 2022-03-09 17:38:00-00:[address] [facility] [place] Name: YULIYA RICARDO Polly Celis STLSJX [address] [facility] : 1985, Age: 36, S ex: [place] [address] Unit #: [id number], St atus: ADM IN [address]: [address] Report Dict DrHarper: Polly Celis COMMERCIAL PEST CONTROL TECHNICIAN Admission Date: 03/09/22 Report #: [id number] Discharge Date: CC: Hospitalist Consult Note Report Status: Signed Hospitalist Consult - Consult Date Date: 03/09/22 Time: 17:38 - Reason for Consult Reason for Consult: Medical Management Requesting Physician: Dr. Naylor - History and Present Illness HPI: Patient is a 36-year-old fem laya with recent diagnosis of squamous cell carcinoma of the cervix. She reports outpatient follow-up with provider at [facility] in [place], Dr. Stringer, last visit 2 weeks ago. She is scheduled to hav e an MRI for staging of the cancer; however due to her current incarceration status this call s not been done yet. She states she was seen at [place] [facility] on 02/25 for vaginal bleeding concerns, a nd was given 3 units of PRBC for symptomatic anemia at that time. She returned to the [place] ED yes terday with onset of pelvic pain as well as continued vaginal bleeding. Prior to transfer to the [facility] she was given TXA and 1 unit [...] any new concerns or complaints. She reports leatha ed improvement in her abdominal pain post administration of Demerol IV and [place] over the past several hours. - Allergies/Home [...] 10:28 Lactated Ringer's IV 1,000 mls .Q10H AXEL Administration Meperidine HCl 12.5 mg 03/09/22 09:53 [...] (136-145) 03/09/22 12:38 Potassium 3.9 mmol/L (3.5-5.1) 03/09/22 12:38 Chloride 111 mmol/L (98-107) H 03/09/22 12:38 Carbon Dioxide 21 mmol/L (22-29) L 03/09/22 12:3 8 Anion Gap 12 mmol/L (10-20) 03/09/22 12:38 Hospitalist H P A/P Plan: Patient is a 36-year-old fem laya with recent diagnosis of squamous cell carcinoma of the cervix. She reports outpatient follow-up with provider at [facility] in [place], Dr. Stringer, last visit 2 weeks ago. She states she was seen at [place] [facility] on 02/25 for vaginal bleeding concerns, and was given 3 units of PRBC for symptomati c anemia at that time. She returned to the [place] ED yesterday with onset of pelvic pain [...] given Demerol IM by primary team Continue [place] prn Hypotension Baseline BP maintaining 99/50 since initial pres entation to [place] ED. Closely monitor vital signs Continue IVF Chronic Constipation As needed MiraLAX, Colace Monitor I/O UTI Continue IV ceftriaxone Trend labs, trend cultures Squamous cell carcinoma cervix Continue outpatient followin g with provider at [facility] in [place], [place], Dr. Stringer. Patient states she is on [facility] in [place], [place]. Pending MRI outpatient for cancer staging once released from current facility. STEEL FITTER following. Patient is G 19, P 11, A8, serum preg negative. DVT prophylaxisSCD. GI prophylaxisProtonix. CODE STATUSfull code. <Electronically signed by Polly QIU> 0 03/10/22 1708 2022-03-09 09:41:00-00:00 [facility] Name: YULIYA RICARDO Gurmeet Naylor STLSJX [address] [facility] : 1985, Age: 36, S ex: [place] [address] Unit #: [id number], atus: ADM IN Location: [place] [address] CS-P Report Dict Dr.: Gurmeet Naylor III, MD Admission Date: 03/09/22 Report #: [id number] Discharge Date: CC: History Physical Report Status: Signed - History Physical Encounter Time: 03/09/22 Encounter Time: 09:30 36 year old female G 19 P 11 AB 8 CC Pelvic pain, vaginal bleeding HPI She was initially seen in [place] on 02/25/22 the above noted complaints. [facility] [place], Marketing 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 Onc Dr Stringer, with th e finding of a mass of the cervix suspicious for cancer. Her biopsy showed squamous cell carcinoma of th e cervix. She was later discharged home from [facility]. Completion of her work up for the cancer will b een done upon f/u with Marketing 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 Oncologyl. She is to have MRI for staging of the cancer. In [place] on 02/25 sh garcía received blood transfusion for the anemia secondary to her vaginal bleeding. Recieved 3 units of ND BC. Most recently she was seen here in our ER for retrosternal chest pain vaginal bleeding, pelvic pain. She w as cleared in the main ER and brought to the floor for admiission by the OB Hospitalist. Prior to coming to the floor was given TXA for the bleeding, symptoms [...] TSVD, 8 SAB no d and c. 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 LMP 2 weeks ago . 7 day of flow. History of trichimonas. Sqaumous cell carcinoma of the cervix, recent d iagnosis PMH Carcinoma of the cervix, constipation PSH Denied MEDS Iron FMH Positive for diabetes and hypertension SH F ormer smoker, no etoh abuse, drug use at present denied ROS No headache, no shortne ss of breath, no chest pain, no nausea and vomiting, abdominal pain as noted in the history of the present illness, no dysuria, la st bowel movement was yesterday. EXAM NAD Alert, [...] A Pelvic pain recent diagnosis of squamous canc er of cervix. staging pending MRI to be done. Vaginal bleeding LMP 2 weeks ago, present HGC n egative, mostly secondary to cervix carcinoma P Admit for pain control. Monitor her vaginal b leeding, H AND H. All questions answered. jr <Electronically signed by Gurmeet Naylor III, MD> 19262021-10-11 14:14:00-00:00 [id number] [place], [place] PATIENT NAME: YULIYA LARA ADMIT D ATE: 10/11/21 ACCOUNT NO: [id number] ROOM NO: AGE: 36 REPORT TYPE: ELECTROCARDIOGRAM SEX: F : 83 ADMITTING PHYSICIAN: ATTENDING PHYSICIAN:Dallin Sanchez DO Order: [id number] Test Reason : cp Test Date/Time Stamp: FriOct 11 2021 14:14:32 Blood Pressure : / mmHG Vent. Rate : 053 BPM Atrial Rate : 053 BPM P-R Int : 160 ms QRS Dur : 084 ms QT Int : 426 ms P-R-T Axes : 044 -19 038 degree s QTc Int : 399 ms Sinus bradycardia Otherwise normal ECG Confirmed by MD Laura, Dallin (), features editor A IKE ZAMUDIO ([id number]) on 12/18/2021 8:47:39 AM Referred By: Self Referred Confirmed by:Dallin jeter MD Electronically Signed by Dallin Sanchez DO on at 0847 PATIENT NAME: YULIYA LARA 2021-10-11 14:10:00-00:00 [facility] OR A [facility] EMERGENCY PROVIDER REPORT REPORT#:[id number] REPORT STATUS: Signed DATE:10/11/21 TIME: 1410 PATIENT: YULIYA LARA UNIT #: [id number] ROOM/BED: AGE: 36 SEX: F PCP PHYS: Armond Owens MD SERVICE AUTHOR: Dallin Sanchez DO * ALL edits or amendments must be made on the [employer]/computer document * Dallin Sanchez 10/11/21 1410: HPI- Female Free Text HPI Notes Free Text HPI Notes Patient is a 36-year-old female, currently in [facility], presenting to the emergency room for [...] had hemophilia. General Initial Greet Date/Time 10/11/21 1335 Presentation Chief Complaint Vaginal bleeding Review of [...] nsfer. She is being transferred to the [facility] ER and was accepted by the ER physician in order to get further evaluation with US and for further monitoring. Time of Re-Eval 1605 Patient Discharge Departure Vital Signs/Condition Condition Stable Clinical Impression Clinical Impression Primary Impression: Abnormal vaginal bleeding Secondary Impressions: Anemia, Lower abdominal p ain, Pre-syncope Discharge/Care Plan Referrals Provider Referral: Armond Owens MD Address: [address] [place] [address], [address] [place] [address] Provider Referral: Yusra Arreguin MD Address: [address] [place] [address] [address] [place] [address] Mary Vo 10/11/21 1655: Physical Exam Vital Signs Vital Signs First Documented: Result Date Time Pulse Ox 97 10/11 1335 B/P 102/51 10/11 1335 B/P Mean 68 10/11 133 O2 Delivery Room air 10/11 1334 Temp 36.9 10/11 133 Pulse 65 10/11 1335 Resp 16 10/11 1335 Last Documented: Result Date Time Pulse Ox 97 10/11 2054 B/P 104/64 10/11 205 B/P Mean 77 10/11 2054 O2 Delivery Room air 10/11 2054 Temp 36.9 10/11 205 Pulse 65 10/11 205 Resp 16 10/11 205 Interpretation Diagnostics Lab Results Interpretation Results Laboratory Tests 10/11/21 1838: [Embedded Image Not Available] 10/11/21 1405: [Embedded Image Not Available] Laboratory Tests: 10/118 1725 1438 Chemistry POC Glucose (65 - 99 MG/DL) 80 Hematology Hgb (12.0 - 16.0 G/DL) 10.0 L Hct (37 - 47 %) 30.3 L MCHC (33 - 37 G/DL) 33.0 Urines Ur Spec Description Clean Catch Urine Color (YELLOW) YELLOW Urine Appearance (CLEAR) CLOUDY Urine pH (5.5 - 7.0) 6.0 Ur Specific [place] (1.001 - 1.035) 1.015 Urine Protein (NEGATIVE [...] % (Auto) (24 - 44 %) 37.8 [place] % (Auto) (0.0 - 4.0 %) 4.2 H Eos % (Auto) (0.0 - 2.7 %) 2.6 Baso % (Auto) (0.0 - 0.5 %) 0.0 Eos # (Auto) (0.0 - 0.5 x10 3/uL) 0.15 Baso # (Auto) (0.0 - 0.2 x10 3/uL) 0.00 Absolute Neuts (auto) (1.8 - 7.7 x10 3/uL) 3.1 5 Absolute Lymphs (auto) (1.0 - 4.8 x10 3/uL) 2.1 5 Absolute Monos (auto) (0.0 - 0.8 x10 3/uL) 0.24 Microbiology: Date/Time Procedure - Status Source Growth 10/11 145 Urine Culture - RECD URINE Recent Impressions: ULTRASOUND - US TRANSVAGINAL NON OB 10/11 1529 Report Impression - Status: SIGNED Entered: 10/11/20211822 IMPRESSION: Findings consistent with 1.9 cm left ovarian hem orrhagic or corpus luteum cyst. Otherwise unremarkable exam. Impression By: Whitney - Cheikh Chua MD ULTRASOUND - US PELVIC COMPLETE 10/11 1529 Report Impression - Status: SIGNED Entered: 10/11/20211822 IMPRESSION: Findings consistent with 1.9 cm left ovarian hem orrhagic or corpus luteum cyst. Otherwise unremarkable exam. Impression By: Whitney Chua MD ULTRASOUND - DUP AB/PEL/SC COMP 10/11 1705 Report Impression - Status: SIGNED Entered: 10/11/2021 1823 IMPRESSION: Findings consistent with 1.9 cm left [...] with her primary care provider or her FOOD AND NUTRITION SERVICES ASSISTANT. Return to E D immediately if condition worsens. Additional Text [id number] patient arrived from [place], blo od pressure is 87/49, patient is alert and oriented at this time, s he states that her heavy menstrual bleeding started today. We will order the pelvic ultrasound at th is time. ED Course Medication(s) Ordered Medication(s) Ordered: Anti-Infective Agents Sig/Axel Start time Last Medication Dose Route Stop Time Status Admin Ceftriaxone Sodium 1,000 MG X1ED STA 10/11 1505 DCD 10/11 Sodium Chloride 10 ML IV 10/12 0104 1534 Electrolytic, Caloric, And Rita Sig/Axel Start time Last Medication Dose Route Stop Time Status Admin Sodium Chloride 1,000 ML STAT STA 10/11 1713 DC / IV 10/11 1812 1714 Sodium Chloride 1,000 ML BOLUS 10/11 1400 DCD 0 10/11 IV 02/08 1402 1534 Patient Discharge Departure Vital Signs/Condition Vital Signs First Documented: Result Date Time Pulse Ox 97 10/11 1335 B/P 102/51 10/11 1335 B/P Mean 68 10/11 133 O2 Delivery Room air 10/11 1334 Temp 36.9 10/11 1334 Pulse 65 10/11 1334 Resp 16 10/11 1334 Last Documented: Result Date Time Pulse Ox 97 10/11 2054 B/P 104/64 10/11 2054 B/P Mean 77 10/11 2054 O2 Delivery Room air 10/11 2054 Temp 36.9 10/11 2054 Pulse 65 10/11 2054 Resp 16 08/04 2055 All vital signs available at the time of this en try have been reviewed. Disposition Decision Discharge )( Discharged to Home Yes )( Time 192 )( Date 10/11/21 Discharge/Care Plan Counseled Regarding [...] needed for pain, follow-up with you r FOOD AND NUTRITION SERVICES ASSISTANT call soon for an appointment, return to [...] symptoms should prompt an immediate return to [facility] or the closest emergency department or a call to 911. Andi Walters 10/12/21 0458: Patient Discharge Departure Supervising Physician Note MidLv Saw Pt Alone I did not see this patient; however, I was available for consultation during the patients ER visit Electronically Signed by Mary Vo 10/11/21 at 2216 Electronically Signed by Andi Walters MD on 07/29 at 0458 Electronically Signed by Dallin Sanchez DO on at 0723 RPT #:[id number] END OF REPORT 2020-01-25 07:58:00-00:00 [facility] ([facility]) OB Postpart Progr Note REPORT#:[id number] REPORT STATUS: Signed DATE:01/25/20 TIME: 0758 PATIENT: YULIYA LARA UNIT #: [id number] ROOM/BED: Y214-1 : 83 AGE: 34 SEX: F ATTEND: Justin Kelly MD ADM AUTHOR: Pa Kelly MD * ALL edits or amendments must be made on the [employer]/computer document * Subjective Subjective Admission EGA: Weeks: [...] 01/23 0951 86 100 01/23 0948 105.0 0948 98 134/87 / 0946 91 100 /16 0941 97 99 / 0936 87 98 / 0933 84.0 01/23 0933 88 124/58 01/23 0931 83 98 /16 0930 98.1 16 01/23 0926 80 100 / 0921 85 99 /16 0919 88.0 / 0919 88 120/71 01/23 0916 97 100 /16 0911 93 100 / 0906 76 100 /16 0903 97.0 01/23 0903 71 132/76 01/23 0901 66 100 / 0856 71 100 / 0851 72 100 / 0849 94.0 01/23 0849 53 120/81 01/23 0846 77 98 01/23 0841 66 98 01/23 0836 66 98 / 0832 78.0 01/23 0832 65 110/60 01/23 0831 73 99 01/23 0826 91 98 01/23 0821 77 95 01/23 0817 74.0 01/23 0817 68 105/58 01/23 0816 73 99 01/23 0811 87 96 / 0806 83 98 01/23 0802 67.0 01/23 0802 63 92/53 01/23 [...] Pa Kelly MD on at 0759 RPT #:[id number] END OF REPORT 2020-01-24 10:26:00-00:00 [facility] ([facility]) OB Delivery Note REPORT#:[id number] REPORT STATUS: Signed DATE:01/24/20 TIME: 1026 PATIENT: YULIYA LARA UNIT #: [id number] ROOM/BED: [facility]871 : 83 AGE: 34 SEX: F ATTEND: Justin Kelly MD ADM AUTHOR: Pa Kelly MD * ALL edits or amendments must be made on the [employer]/computer document * OB Delivery Pre-delivery GBS status: GBS status: unknown Prophylaxis administered: penicillin [place] evaluation at delivery: NRP certified pe rsonnel Admission EGA: Weeks: 35 Days: 1 EGA at delivery (wks/days): 35 weeks (2 days) Baby A Information Baby A information Delivery date: 01/24/20 Delivery time: 1014 status: live born Wt of baby (grams): 3420 Wt of baby (lbs/oz): 7/9 Gender: male 1 minute: 9 5 minutes: [...] Vaginal packing: No Mother's condition: mother stable Infant's condition: infant stable in room Lacerations: Perineal laceration(s): 1st Degree Extraction details OVD performed: no Shoulder dystocia present: no Blood Loss/Details Blood loss at delivery: <1000 ml QBL at delivery (ml's): 100 Electronically Signed by Pa Kelly MD on at 1028 RPT #:[id number] END OF REPORT 2020-01-24 10:26:00-00:00 [facility] ([facility]) OB Delivery Note REPORT#:[id number] REPORT STATUS: Signed DATE:01/24/20 TIME: 1026 PATIENT: YULIYA LARA UNIT #: [id number] ROOM/BED: D.Y287-1 : 83 AGE: 34 SEX: F ATTEND: Justin Kelly MD ADM AUTHOR: aP Kelly MD * ALL edits or amendments must be made on the [employer]/computer document * See Addendum OB Delivery Pre-delivery GBS status: GBS status: unknown Prophylaxis administered: penicillin [place] evaluation at delivery: NRP certified pe rsonnel Admission EGA: Weeks: 35 Days: 1 EGA at delivery (wks/days): 35 weeks (2 days) Baby A Information Baby A information Delivery date: 01/24/20 Delivery time: 1014 status: live born Wt of baby (grams): 3420 Wt of baby (lbs/oz): 7/9 Gender: male 1 minute: 9 5 minutes: [...] Pa Kelly MD on at 1033 RPT #:[id number] END OF REPORT 2020-01-24 08:21:00-00:00 [facility] OB Intrapart Prog Note REPORT#:[id number] REPORT STATUS: Signed DATE:01/24/20 TIME: 820 PATIENT: YULIYA LARA UNIT #: [id number] ROOM/BED: [facility]871 : 83 AGE: 34 SEX: F ATTEND: Justin Klely MD ADM AUTHOR: Pa Kelly MD * [...] 0748 B/P 94/53 01/23 0748 Temp 98.3 01/24 716 Resp 16 01/24 716 Vital Signs Date Temp Pulse Resp B/P B/P Mean Pulse Ox FiO2 01/23 98.2-98.5 66-97 16-18 82-110/48-60 63.0-7 7.0 94-100 Patient Weight Weight (lb): 210 Weight (oz): Weight (kg): 95.254 Objective Cervical/ exam: Dilatation (cm): 8 Effacement (%): 97349 station: - 2 presentation: cephalic Est. wt [...] % (Auto) (24 - 44 %) 40.2 [place] % (Auto) (0.0 - 4.0 %) 4.5 [...] pH (5.5 - 7.0) 6.5 Ur Specific [place] (1.001 - 1.035) 1.003 Urine Protein (NEGATIVE mg/dL) NEGATIVE Urine Glucose (UA) (NEGATIVE mg/dL) NORMAL Urine Ketones (NEGATIVE mg/dL) NEGATIVE Urine Blood (NEGATIVE) NEGATIVE Urine Nitrite (NEGATIVE) NEGATIVE Urine Bilirubin (NEGATIVE) NEGATIVE Urine Urobilinogen (NORMAL mg/dL) NORMAL Ur Leukocyte Esterase (NEGATIVE) NEGATIVE Urine Comment VOLUME 10-12 ML Microbiology: Date/Time Procedure - Status Source Growth 01/23 449 Group B Streptococcus Culture - COLB VAGINAL Diagnosis, Assessment Plan Assessment: normal FHR pattern, normal progress of labor, stable, doing well Plan: anticipate vag delivery Plan discussed with: patient, nurse Electronically Signed by Pa Kelly MD on at 0825 RPT #:[id number] END OF REPORT 2020-01-24 08:21:00-00:00 [facility]) OB Intrapart Prog Note REPORT#:[id number] REPORT STATUS: Signed DATE:01/24/20 TIME: 0821 PATIENT: YULIYA LARA UNIT #: [id number] ROOM/BED: [place] [address] : 83 AGE: 34 SEX: F ATTEND: Justin Kelly MD ADM AUTHOR: Pa Kelly MD * ALL edits or amendments must be made on the el [employer]/computer document * See Addendum Subjective Subjective Admission [...] Cervical/ exam: Dilatation (cm): 8 Effacement (%): 18896 station: - 2 presentation: cephalic Est. wt [...] % (Auto) (24 - 44 %) 40.2 [place] % (Auto) (0.0 - 4.0 %) 4.5 [...] pH (5.5 - 7.0) 6.5 Ur Specific [place] (1.001 - 1.035) 1.003 Urine Protein (NEGATIVE mg/dL) NEGATIVE Urine Glucose (UA) (NEGATIVE mg/dL) NORMAL Urine Ketones (NEGATIVE mg/dL) NEGATIVE Urine Blood (NEGATIVE) NEGATIVE Urine Nitrite (NEGATIVE) NEGATIVE Urine Bilirubin (NEGATIVE) NEGATIVE Urine Urobilinogen (NORMAL mg/dL) NORMAL Ur Leukocyte Esterase (NEGATIVE) NEGATIVE Urine Comment VOLUME 10-12 ML Microbiology: Date/Time Procedure - Status Source Growth 01/23 0449 Group B Streptococcus Culture - COLB VAGINAL Diagnosis, Assessment Plan Assessment: normal FHR pattern, normal progress of labor, stable, doing well Plan: anticipate vag delivery Plan discussed with: patient, nurse Electronically Signed by Pa Kelly MD on at 0825 Addendum 1: 01/24/20 1032 by Pa Kelly MD Admitted at 37 weeks Electronically Signed by Pa Kelly MD on at 1032 RPT #:[id number] END OF REPORT 2018-04-17 06:54:00-00:00 [facility] ([facility]) OB Postpart Progr Note REPORT#:[id number] REPORT STATUS: Signed DATE:04/17/18 TIME: 0654 PATIENT: YULIYA LARA UNIT #: [id number] ROOM/BED: Y213-1 : 83 AGE: 32 SEX: F ATTEND: Justin Kelly MD ADM AUTHOR: Armond Owens MD * ALL edits or amendments must be made on the [employer]/computer document * Subjective Subjective Status/Day: post (2) [...] er, office fu, contraception. at 0655 RPT #:[id number] END OF REPORT 2018-04-16 06:51:00-00:00 [facility]) OB Postpart Progr Note REPORT#:[id number] REPORT STATUS: Signed DATE:04/16/18 TIME: 0651 PATIENT: YULIYA LARA UNIT #: [id number] ROOM[address]BED[address] : 83 AGE: 32 SEX: F ATTEND: Justin Kelly MD ADM AUTHOR: Jenifer Buckley MD * ALL edits or amendments must be made on the el [employer]/computer document * Subjective Subjective Status/Day: post (day [...] Pulse Resp B/P B/P Pulse O2 O2 Flow FiO2 Mean Ox Delivery Rate 04/16 0412 98.6 66 18 113/61 04/15 2352 97.8 66 18 94/56 04/15 1900 98.2 74 18 99/54 04/15 1637 98.1 72 16 102/48 04/15 1505 98.3 75 16 105/52 04/15 1444 98.0 18 04/15 1444 76.0 04/15 1444 75 109/53 02/06 1414 79.0 02/06 1414 97.7 68 18 112/59 02/06 1359 97.7 18 02/06 1359 79.0 02/06 1359 69 118/55 02/06 1345 97.7 18 02/06 1345 89.0 02/06 1345 66 131/62 02/06 1329 84.0 02/06 1329 97.7 73 18 [...] Edema: none Result Findings/Data: Laboratory Tests: 04/16 02/ 0517 1322 Blood Gas POC Cord Blood [...] care, discharge tomorro w at 0652 RPT #:[id number] END OF REPORT 2018-04-15 13:02:00-00:00 [facility] OB Delivery Note REPORT#:[id number] REPORT STATUS: Signed DATE:04/15/18 TIME: 1302 PATIENT: YULIYA LARA UNIT #: [id number] ROOM/BED: [place] [address] : 83 AGE: 32 SEX: F ATTEND: Justin Kelly MD ADM AUTHOR: Pa Kelly MD * ALL edits or amendments must be made on the [employer]/computer document * OB Delivery Pre-delivery GBS status: GBS status: positive Prophylaxis administered: vancomycin [place] evaluation at delivery: NRP certified pe rsonnel EGA (weeks/days): 39 weeks (3 days) General VS: Last Documented: Result Date Time B/P Mean 76.0 04/15 1244 B/P 108/53 02 1244 Pulse 66 02/ 1244 Temp 98.2 / 1022 Resp 18 04/15 1022 Pulse Ox 100 04/15 0433 Membranes: AROM ROM date: 04/15/18 ROM time: 0838 Amniotic fluid: clear Baby A Information Baby A information Delivery date: 04/15/18 Delivery time: 1310 status: live born Wt of baby (grams): 3195 Wt of baby (lbs/oz): 09/07 Gender: female 1 minute: 8 5 minutes: [...] correct Mother's condition: mother stable 's condition: stable in room Lacerations: Perineal laceration: none Extraction details OVD performed: no Shoulder dystocia Shoulder dystocia present: no Electronically Signed by Pa Kelly MD on at 1506 RPT #:[id number] END OF REPORT 2018-04-15 08:43:00-00:00 [facility] ([facility]) OB Intrapart Prog Note REPORT#:[id number] REPORT STATUS: Signed DATE:04/15/18 TIME: 0843 PATIENT: YULIYA LARA UNIT #: [id number] ROOM/BED: Y289-1 : 83 AGE: 32 SEX: F ATTEND: Justin Kelly MD ADM AUTHOR: Pa Kelly MD * ALL edits or amendments must be made on the [employer] document * Subjective Subjective Patient reports: Patient reports: Yes comfortable with epidural Objective Objective VS: Vital Signs Date Time Temp Pulse Resp B/P B/P Pulse O2 O2 F low FiO2 Mean Ox Delivery Rate /08 1444 74.0 02/08 1444 75 105/55 02/06 0714 70.0 02/06 0714 65 96/53 02/06 0708 98.5 18 /08 1344 75.0 02/08 1344 78 108/52 /08 1314 73.0 02/06 0614 70 101/54 02/06 0544 [...] 0320 62 104/53 02/06 0319 98.4 16 02/05 2326 78.0 02/05 2326 78.0 02/05 2326 98.1 74 16 107/61 02/05 2326 [...] Signed by Pa Kelly MD on at 08[facility] #:[id number] END OF REPORT
[2022-09-12] MEDS ORDERED: ONDANSETRON 4 MG/2 ML VIAL ONE (15:49)
[2022-09-12] MEDS ORDERED: NA CHLORIDE 0.9% 1,000 ML ONE (15:49)
[2022-09-12 16:10] LABS: Absolute Lymphocytes (CBC) 1.1 K/uL (0.7-4.9); Hematocrit 21.6 % (36.0-45.0); Lymphocytes % 14.5 % (15.3-44.8); MCV 88.4 fL (80-100); RBC Red Blood Cell Count 2.44 M/uL (3.86-4.86)
[2022-09-12 16:21] LABS: Albumin 2.7 g/dL (3.4-5.0); Bilirubin Total 0.2 mg/dL (0.2-1.0); Protein, Total 7.8 g/dL (6.4-8.2)
--- NOTE | 2022-09-12 18:16 | RAD REPORT ---
EXAM DESCRIPTION: CT - Abdomen Pelvis Wo Contrast - 09/12/2022 5:27 pm CLINICAL HISTORY: hx of cervical cancer and radiation;Abd pain COMPARISON: Abdomen Pelvis Wo Contrast dated 08/12/2022; Abdomen Pelvis Wo Contrast dated 06/08/2022 ; CT-STONE PROTOCOL dated 12/27/2008 TECHNIQUE: Thin cut axial CT imaging of the abdomen and pelvis was performed without IV contrast. Mu ltiplanar reformats were generated and reviewed. All CT scans are performed using dose optimization technique as appropriate and may include automated exposure control or mA/KV adjustment according to patient size. FINDINGS: No suspicious findings in the lung bases. The liver, spleen, and pancreas show no suspicious findings. Gallbladder and biliary tree are also wi thout suspicious finding. Symmetric renal contour, without suspicious parenchymal findings within limits of noncontrast techniq ue. Bilateral percutaneous nephrostomy stent placed. Interval decrease in caliber of the ureters bila terally particularly on the right. Mildly prominent small bowel loops in the left with short-segment air-fluid levels, nonspecific. No s ignificantly dilated bowel loops or bowel wall thickening. No free air, free fluid or inflammatory st randing. Stable left pelvic sidewall 1 centimeter lymph node. No hernia, intra-abdominal mass or bulk y lymphadenopathy. Stable nodular thickening in the region of the uterine cervix, including nodular protrusion along the left base of the bladder. The urinary bladder is suboptimally distended, without significant finding . No suspicious bony findings. IMPRESSION: Mildly prominent small bowel loops in the left with short-segment air-fluid levels, nons pecific, and could relate to diarrheal state. Stable nodular thickening in the region of the cervix, with small nodular protrusion along the left b ase of the bladder. Evaluation of cervical malignancy is limited on CT. Stable left pelvic sidewall small lymph node. Improving caliber prominence of the ureters. Stable positioning of percutaneous nephrostomy tubes.
[2022-09-12] MEDS ORDERED: FENTANYL CITR 100 MCG/2 ML ONE (18:57)
[2022-09-12 20:01] LABS: Specific Gravity 1.018 (1.005-1.030); Urine Bacteria <20 /HPF (<20); Urine Bilirubin NEGATIVE (Negative); Urine Blood Trace (Negative); Urine Clarity Extremely Turbid (Clear); Urine Color Yellow (Yellow); Urine Crystals Unidentified Many /HPF (None Seen); Urine Glucose NEGATIVE (Negative); Urine Mucus Slight /HPF (None Seen); Urine Protein 1+ (Negative); Urine RBC 21-50 /HPF (None Seen); Urine Urobilinogen Normal (Normal); Urine WBC Clump Occasional /HPF (None Seen); Urine pH 5.5 (5.0-7.0)
--- NOTE | 2022-09-12 20:10 | EDPHYS ---
Physician Documentation [facility] Name: Jayashree Khan Age: 37 yrs Sex: Female : 1985 Arrival Date: 09/12/2022 Time: 15:06 Bed 13 Private MD: ED Physician Dayday Sandoval HPI: 09/12 15:26 This 37 yrs old Female presents to ER via EMS with complaints of Abdominal rn Pain. 15:26 The patient presents with abdominal pain in the lower abdomen. rn 15:26 Onset: The symptoms/episode began/occurred this morning. The symptoms do not radiate. rn Associated signs and symptoms: Pertinent positives: anorexia, Pertinent negatives: blood in stools, chest pain, dysuria, fever, vomiting, vomiting blood. Modifying factors: The symptoms are alleviated by nothing, the symptoms are aggravated by touching the area. Severity of pain: At its worst the pain was moderate in the emergency department the pain is unchanged. The patient has experienced similar episodes in the past. Pt reports cervical cancer, has received radiation therapy, currently not receiving any other treatment. Woke up today with lower abd pain, usually has lower abd pain but worse today. No fever. No vaginal bleeding or discharge. No blood in stool. No trauma. . 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 - Social history:: Smoking status: Patient reports the use of cigarette tobacco products, denies chronic smoking, but will smoke occasionally. - Family history:: not pertinent. - Hospitalizations: : No recent hospitalization is reported. ROS: 15:26 Constitutional: Negative for fever, chills Eyes: Negative for injury, pain, redness, rn and discharge, Neck: Negative for injury, pain, and swelling, Cardiovascular: Negative for chest pain, palpitations, and edema, Respiratory: Negative for shortness of breath, cough, wheezing, and pleuritic chest pain, Abdomen/GI: + lower abd pain Back: Negative for injury : Negative for injury, bleeding, discharge, and swelling, MS/Extremity: Negative for injury and deformity, Skin: Negative for injury, rash, and discoloration, Neuro: Negative for headache, numbness, tingling, and seizure. 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 No pulse deficits. Respiratory: No increased work of breathing, no retractions or nasal flaring. Abdomen/GI: soft, + tender suprapubic/LLQ/LUQ Skin: Warm, dry MS/ Extremity: Pulses equal, no cyanosis. Neuro: Awake and alert, GCS 15 Vital Signs: 15:13 BP 103 / 64; Pulse 75; Resp 16; Temp 98.1(TE); Pulse Ox 100% on R/A; Height 5 ft. 5 in. ss ; Pain 7/10; 17:00 BP 102 / 61; Pulse 71; Resp 16 S; Pulse Ox 100% on R/A; aa5 18:50 BP 98 / 59; Pulse 90; Resp 17 S; Pulse Ox 100% on R/A; aa5 19:53 BP 109 / 66; Pulse 86; Resp 17 S; Pulse Ox 100% on R/A; ha1 20:50 BP 104 / 63; Pulse 82; Resp 16; Pulse Ox 100% on R/A; ha1 15:13 Pain Scale: Adult ss MDM: 15:13 Patient medically screened. rn 20:07 Differential diagnosis: non-specific abd pain, Pyelonephritis, Ureterolithiasis, rn urinary tract infection. Differential diagnosis: bowel obstruction. Data reviewed: vital signs, nurses notes. Data reviewed: lab test result(s), radiologic studies, CT scan, and as a result, I will discharge patient. Consideration of Admission/Observation Escalation of care including admission/observation considered. Mother reports BP "always runs low", and "always has pain". Patient and mother request to go home, no signs of sepsis, lactate normal, urine with WBC but no bacteria, will treat with IV abx and dc home with return precautions.. Counseling: I had a detailed discussion with the patient and/or guardian regarding: the historical points, exam findings, and any diagnostic results supporting the discharge/admit diagnosis, lab results, radiology results, the need for outpatient follow up, to return to the emergency department if symptoms worsen or persist or if there are any questions or concerns that arise at home. 20:36 ED course: patient and mother decline IV abx, request pill form because IV is bothering rn her. . 09/12 15:14 Order name: CBC with Diff; Complete Time: 16:40 rn 09/12 15:14 Order name: CMP; Complete Time: 16:40 rn 09/12 15:14 Order name: Lipase; Complete Time: 16:40 rn 09/12 15:14 Order name: Urinalysis w/ reflexes; Complete Time: 20:06 rn 09/12 15:14 Order name: Blood Culture Adult (2) rn 09/12 15:14 Order name: Lactate w/ 2H reflex if indic.; Complete Time: 17:06 rn 09/12 20:05 Order name: Urine Culture EDUT 09/12 17:14 Order name: Abdomen ; Complete Time: 18:18 EDUT 09/12 15:14 Order name: IV Saline Lock; Complete Time: 16:06 rn 09/12 15:14 Order name: Labs collected and sent; Complete Time: 16:06 rn Administered Medications: 16:00 Drug: NS 0.9% IV 1000 ml Route: IV; Rate: 1 bolus; Site: left wrist; aa5 16:00 Drug: Ondansetron IVP 4 mg Route: IVP; Site: left wrist; aa5 18:50 Drug: fentaNYL (PF) IVP 25 mcg Route: IVP; Site: left wrist; aa5 20:36 Not Given (Duplicate Order): Ciprofloxacin IVPB 400 mg 200 ml IVPB once over 60 mins rn 20:40 Drug: Ciprofloxacin PO 500 mg Route: PO; ha1 20:51 Follow up: Response: No adverse reaction ha1 Disposition Summary: 09/12/22 20:09 Discharge Ordered Location: Home rn Problem: an ongoing problem rn Symptoms: have improved rn Condition: Stable rn Diagnosis - UTI/ Urinary tract infection, site not specified rn - Abdominal pain, unspecified rn Followup: rn - With: Private Physician - When: As needed - Reason: Recheck today's complaints, Re-evaluation by your physician Discharge Instructions: - Discharge Summary Sheet rn - Abdominal Pain, Adult rn - Urinary Tract Infection, Adult rn Forms: - Medication Reconciliation Form rn - Thank You Letter rn - Antibiotic care director rn - Prescription Opioid Use rn - [email or web address] rn Prescriptions: - Cipro 500 mg Oral Tablet - take 1 tablet by ORAL route every 12 hours for 10 days; 20 tablet; Refills: 0, rn Product Selection Permitted Signatures: Dispatcher [employer] EDMS Dayday Sandoval MD MD rn Calderon, Audri, RN RN aa5 Dora Lopez RN RN Adelia Arango, RN RN ha1 Corrections: (The following items were deleted from the chart) 17:14 15:15 Abdomen Pelvis W Con+CT.RAD.BRZ ordered. EDMS EDMS
--- NOTE | 2022-09-12 20:10 | ER ---
Nurse's Notes [facility] Name: Jayashree Khan Age: 37 yrs Sex: Female : 1985 Arrival Date: 09/12/2022 Time: 15:06 Bed 13 Private MD: Diagnosis: UTI/ Urinary tract infection, site not specified;Abdominal pain, unspecified Presentation: 09/12 15:13 Chief complaint: Patient states: lower abd pain that began this morning. Pt also ss reports intermittent dizziness/ fatigue x 1 week. HX of cervical CA. Pt is not currently receiving treatment. Denies fever. Coronavirus screen: Client denies travel out of the [place] in the last 14 days. Ebola Screen: Patient denies exposure to infectious person. Patient denies travel to an Ebola-affected area in the 21 days before illness onset. Initial Sepsis Screen: Does the patient meet any 2 criteria? No. Patient's initial sepsis screen is negative. Does the patient have a suspected source of infection? No. Patient's initial sepsis screen is negative. Risk Assessment: Do you want to hurt yourself or someone else? Patient reports no desire to harm self or others. Onset of symptoms is unknown. 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 - Social history:: Smoking status: Patient reports the use of cigarette tobacco products, denies chronic smoking, but will smoke occasionally. - Family history:: not pertinent. - Hospitalizations: : No recent hospitalization is reported. Screenin:20 [facility] ED Fall Risk Assessment (Adult) History of falling in the last 3 months, aa5 including since admission No falls in past 3 months (0 pts) Confusion or Disorientation No (0 pts) Intoxicated or Sedated No (0 pts) Impaired Gait Yes (1 pt) Mobility Assist Device Used Yes (1 pt) Altered Elimination No (0 pt) Score/Fall Risk Level 0 - 2 = Low Risk Oriented to surroundings, Maintained a safe environment, Educated pt \T\ family on fall prevention, incl call for assistance when getting out of bed. Abuse screen: Denies threats or abuse. Nutritional screening: No deficits noted. Tuberculosis screening: No symptoms or risk factors identified. Assessment: 15:20 General: Appears comfortable, Behavior is calm, cooperative, Reports fatigue. Pain: aa5 Complains of pain in right lower quadrant and left lower quadrant Pain currently is 7 out of 10 on a pain scale. Quality of pain is described as aching, Pain began this morning Is continuous. Neuro: Level of Consciousness is awake, alert, obeys commands, Oriented to person, place, time, situation. Cardiovascular: Heart tones S1 S2 present Rhythm is regular. Respiratory: Airway is patent Respiratory effort is even, unlabored, Respiratory pattern is regular, symmetrical. GI: Abdomen is flat, non-distended, Bowel sounds present X 4 quads. Abd is soft and non tender X 4 quads. Reports nausea. : No signs and/or symptoms were reported regarding the genitourinary system. Denies vaginal bleeding. EENT: No signs and/or symptoms were reported regarding the EENT system. Derm: Skin is pink, warm \T\ dry. Musculoskeletal: Range of motion: intact in all extremities. 17:00 Reassessment: Patient is alert, oriented x 3, equal unlabored respirations, skin aa5 warm/dry/pink. 18:50 Reassessment: Patient is alert, oriented x 3, equal unlabored respirations, skin aa5 warm/dry/pink. 19:51 General: Appears comfortable, Behavior is calm, cooperative. Pain: Complains of pain in ha1 left lower quadrant Pain currently is 4 out of 10 on a pain scale. Quality of pain is described as pressure, Pain began gradually, Is continuous. Neuro: Level of Consciousness is awake, alert, obeys commands, Oriented to person, place, time, situation. Cardiovascular: Heart tones S1 S2 absent Patient's skin is warm and dry. Respiratory: Airway is patent Respiratory effort is even, unlabored, Respiratory pattern is regular, symmetrical. GI: Abdomen is flat, non-distended, Reports nausea. : No signs and/or symptoms were reported regarding the genitourinary system. Musculoskeletal: Range of motion: intact in all extremities. 20:50 Reassessment: Patient and/or family updated on plan of care and expected duration. Pain ha1 level reassessed. Patient is alert, oriented x 3, equal unlabored respirations, skin warm/dry/pink. Vital Signs: 15:13 BP 103 / 64; Pulse 75; Resp 16; Temp 98.1(TE); Pulse Ox 100% on R/A; Height 5 ft. 5 in. ss ; Pain 7/10; 17:00 BP 102 / 61; Pulse 71; Resp 16 S; Pulse Ox 100% on R/A; aa5 18:50 BP 98 / 59; Pulse 90; Resp 17 S; Pulse Ox 100% on R/A; aa5 19:53 BP 109 / 66; Pulse 86; Resp 17 S; Pulse Ox 100% on R/A; ha1 20:50 BP 104 / 63; Pulse 82; Resp 16; Pulse Ox 100% on R/A; ha1 15:13 Pain Scale: Adult ss ED Course: 15:13 Patient arrived in ED. ss 15:13 Dayday Sandoval MD is Attending Physician. rn 15:15 Triage completed. ss 15:15 Arm band placed on right wrist. ss 15:20 Patient has correct armband on for positive identification. Bed in low position. Call aa5 light in reach. Side rails up X2. 15:33 Maritza Allred, RN is Primary Nurse. aa5 15:57 Inserted saline lock: 22 gauge in left wrist, using aseptic technique. Blood collected. ss 17:29 Abdomen In Process Unspecified. EDMS 19:00 Report given to HUGO Delvalle. aa5 20:50 No provider procedures requiring assistance completed. IV discontinued, intact, ha1 bleeding controlled, No redness/swelling at site. Pressure dressing applied. Administered Medications: 16:00 Drug: NS 0.9% IV 1000 ml Route: IV; Rate: 1 bolus; Site: left wrist; aa5 16:00 Drug: Ondansetron IVP 4 mg Route: IVP; Site: left wrist; aa5 18:50 Drug: fentaNYL (PF) IVP 25 mcg Route: IVP; Site: left wrist; aa5 20:36 Not Given (Duplicate Order): Ciprofloxacin IVPB 400 mg 200 ml IVPB once over 60 mins rn 20:40 Drug: Ciprofloxacin PO 500 mg Route: PO; ha1 20:51 Follow up: Response: No adverse reaction ha1 Medication: 16:43 VIS not applicable for this client. aa5 Outcome: 20:09 Discharge ordered by . rn 20:51 Discharged to home via wheelchair, with family. ha1 20:51 Condition: stable 20:51 Discharge instructions given to patient, family, Instructed on discharge instructions, follow up and referral plans. medication usage, Demonstrated understanding of instructions, follow-up care, medications, Prescriptions given X 1. 20:52 Patient left the ED. ha1 Signatures: Dispatcher [employer] EDMS Dayday Sandoval MD MD rn Calderon, Audri, RN RN aa5 Dora Lopez RN RN ss Ayala, Heidy, RN RN ha1
[2022-09-12] MEDS ORDERED: CIPROFLOXACIN 400mg IV 400 MG/200 ML BAG IV ONE (20:30)
[2022-09-12] MEDS ORDERED: CIPROFLOXACIN HCL 500 MG TAB ONE (20:51)
[2022-09-12 21:09] VITALS: TEMP 98.1; O2SAT 100
[2022-09-12 21:16] VITALS: BP 104/63
== END 2022-09-12 20:52 | disposition home or self-care (01) ==
LOC: ER 15:06
DX: N39.0 Urinary tract infection, site not specified (principal)
CPT/HCPCS: 36415; 74176; 80053; 81001; 83605; 83690; 85025; 87040; 87077; 87086; 87088; 87186; 96374; 96375; 99285; J0744; J2405; J3010; J7030

== ENCOUNTER 2022-11-10 01:23 | Emergency (ER) | payer SELFPAY ==
--- OUTSIDE RECORDS SUMMARY | 2022-11-10 01:34 | XMS REPORT | Continuity of Care Document ---
:1985 Author Organization [facility] t Address [address] [facility] [address] [place] [address] Care Team Providers Name Role Phone Pcp, Patient Does Not Have A Primary Care Physician [phone] Armond Owens Attending Clinician Unavailable Fiona Aldridge Attending Clinician Unavailable Jojo Escobar Attending Clinician Doctor Unassigned, [place] Attending Clinician Unavailable Louisa Bryant RN Attending Clinician Angelica Ngo LVN Attending Clinician ELLI ENCARNACION Attending Clinician Unavailable Elli Encarnacion MD Attending Clinician Ray SERRA Vern Ramesh Attending Clinician BEN HUNG Attending Clinician Unavailable MT COY Attending Clinician Unavailable Farzaneh Horvath Attending Clinician ELENI GRAMAJO Attending Clinician Unavailable Amalia George MD Attending Clinician [phone] Nayla ANDRADE, Hussein Chand Attending Clinician Rox ANDRADE, Eleni Leary Attending Clinician [phone] Boy Ndiaye Attending Clinician Unavailable Jodie ANDRADE, Hebert Joaquin Attending Clinician [phone] Gabe Casas Attending Clinician Unavailable Livier Carver Attending Clinician Unavailable Sidney ANDRADE, Bradley Rich Attending Clinician [phone] CARTER, DANA Attending Clinician Unavailable Rick ANDRADE, Noris Castaneda Attending Clinician Catherine Mooney MD Attending Clinician [phone] Miah ANDRADE, [place] [facility] In Attending Clinician Carter ANDRADE, Dana Attending Clinician Louisa Sosa Attending Clinician Unavailable _[facility]_South_J Attending Clinician Unavailable Dallin Sanchez Attending Clinician Unavailable Armond Owens Admitting Clinician Unavailable ELLI ENCARNACION Admitting Clinician Unavailable Elli Encarnacion MD Admitting Clinician MT COY Admitting Clinician Unavailable AMALIA GEORGE Admitting Clinician Unavailable Bárbara Lemons Admitting Clinician Unavailable CATHERINE MOONEY Admitting Clinician Unavailable _[facility]_South_J Admitting Clinician Unavailable Payers Payer Name Policy Type Policy Number Effective Date Expiration Date S melany GENERIC [id number] 2022 INSTIT,SNF,LTAC,R 00:00:00 [facility] [place] [id number] 2022 2022 00:00:00 00:00:00 [facility] [id number] Problems Condition Condition Condition Status Onset Resolution Last Treating Co mments Source Name Details Category Date Date Treatment Clinician Date Complicate Complicate Disease Active U nivers d UTI d UTI 08-15 ity of (urinary (urinary 00:00: [place] tract tract 00 Medical infection) infection) Br anch Cervical Cervical Disease Active Unive rs cancer cancer 08-12 ity of 00:00: [place] [facility] Acute on Acute on Disease Active [facility] blood loss blood loss 00:00: [place] dical anemia anemia 00 [place] Cervical Cervical Disease Active 2021-03 [facility] mass mass [facility] 00:00: 00 [place] Symptomati Symptomati Disease Active 2021-[address] [facility] anemia c anemia 2- [facility] 00:00: Medical 00 [place] Vaginal Vaginal Disease Active 2021-[address] bleeding bleeding 2- [facility] 00:00: Medical 00 [place] AMANDA (iron AMANDA (iron Disease Recurre [facility] I [facility] deficiency deficiency [facility] anemia) anemia) [facility] Cervical Cervical Disease Recurre [facility] carcinoma carcinoma [facility] Drug use Drug use Disease Recurre [facility] Incarcerat Incarcerat Disease Recurre [facility] ion [facility] Hypotensio Hypotensio Disease Active C [facility] n due to n due to [facility] loss [facility] Hemorrh[facility] Disease Active [facility] c shock c shock [facility] Acute pain Acute pain Disease Active C HI [facility] Allergies, Adverse Reactions, Alerts Allergy Allergy Status Severity Reaction(s) Onset Inactive Treating Comm ents Source Name Type Date Date Clinician IBUPROFE DRUG Active Hives Univers N INGREDI 08-12 ity of 00:00: [place] [facility] PENICILL DRUG Active Hiv Univers IN INGREDI 08-12 ity of 00:00: [place] [facility] Ibuprofe Propensi Active Hiv Univer s n ty to 605 ity of adverse 00:00: [place] reaction 00 Medical s Branch Penicill Propensi Active Hives Univer s in ty to 605 ity of adverse 00:00: [place] reaction 00 Medical s Branch IBUPROFE Allergy Active [facility] N 06-08 00:00: 00 Ibuprofe Propensi [facility] ty to 06-08 [facility] adverse 00:00: Medical reaction 00 Center s Penicill Propensi Active [facility] ins ty to 06-08 [facility] adverse 00:00: Medical reaction 00 Center s PENICILL Allergy Active [facility] INS 06-08 00:00: 00 ibuprofe DA Active [place] [facility] 03[facility]10 [facility] 00 [place] NSAIDS Allergy Active 2021-03 St. (Non-[facility] to [facility] substan 09:12: Regiona Anti-Inf e 09 l lamma Health ibuprofe Allergy Active 2021-03 St. n to [place] substanc 09:05: Regiona e 34 l Health Penicill Allergy Active 2021-03 St. ins to [place] substanc 09:05: Regiona e 21 l Health NSAIDS DA Active U 2021-03 [facility] Anti-Inf 00 lamma Pen[place] DA Active U 2021-03 STLSJX ins 00:00: 00 ibuprofe DA Active U 2021-03 STLSJX n 00:00: 00 IBPROFEN DA Active MO EDEMA 2018-0 [facility] 2- [facility] 00:00: [facility] Penicill DA Active U 0 [facility] ins 04-14 [facility] 00:00: [facility] Penicill DA Active U RASH-UNKNOWN 2018- HC A ins 2 [facility] 00:00: [facility] Penicill DA Active U 2017-0 [facility] ins 03-27 [facility] 00:00: [place] 00 Medical [place] NO KNOWN Allergy Active [facility] ALLERGIE [facility] Social History Social Habit Start Date Stop Date Quantity Comments Source History of tobacco Passive smoker Un iversity of use [facility] Gender identity [facility] [place] [facility] Sexual orientation [facility] [place] [facility] History SDOH University o f Alcohol Std Drinks [place] [facility] History SDOH University o f Alcohol Binge [place] [facility] History SDOH University o f Social Connections [place] [facility] Get Together Branch History SDOH University o f Social Connections [place] [facility] Episcopalian Branch History SDOH University o f Social Connections [place] [facility] Membership Branch History SDOH University o f Social Connections [place] [facility] Meetings Branch Tobacco use and 2022-10-23 2022-10-23 Smokeless tobacco Un iversity of exposure 00:00:00 00:00:00 non-user [facility] History of Social 2022-10-23 2022-10-23 Univers ity of function 00:00:00 00:00:00 [facility] Cigarettes smoked 2022-10-23 2022-10-23 Univers ity of current (pack per 00:00:00 00:00:00 [facility] day) - Reported Branch Cigarette 2022-10-23 2022-10-23 University of pack-years 00:00:00 00:00:00 [facility] Alcohol intake 2022-10-23 2022-10-23 Ex-drinker University of 00:00:00 00:00:00 (finding) [facility] Tobacco Comment 2022-10-23 2022-10-23 Patient is living Un iversity of 00:00:00 00:00:00 temporarily at [facility] with friends. Branch Was released from halfway in April 2022. History [facility] 2022-08-13 2022-08-13 1 University o f Alcohol Frequency 00:00:00 00:00:00 [facility] [place] [facility] edical Branch History SDOR 2022-08-13 2022-08-13 5 University o f Social Connections 00:00:00 00:00:00 [place] [facility] Phone Branch History SDOR 2022-08-13 2022-08-13 7 University o f Social Connections 00:00:00 00:00:00 [place] [facility] Living Branch History SDOR 2022-08-13 2022-08-13 0 University o f Physical Activity 00:00:00 00:00:00 [facility] [place] [facility] edical DPW Branch History SDOR 2022-08-13 2022-08-13 0 University o f Physical Activity 00:00:00 00:00:00 [facility] [place] [facility] edical MPS Branch History SDOH 2022-08-13 2022-08-13 5 University o f Financial 00:00:00 00:00:00 [place] [facility] History SDOH Food 2022-08-13 2022-08-13 1 Univers ity of Worry 00:00:00 00:00:00 [place] [facility] History SDOH Food 2022-08-13 2022-08-13 1 Univers ity of Scarcity 00:00:00 00:00:00 [place] [facility] History SDOH 2022-08-13 2022-08-13 2 University o f Transport Med 00:00:00 00:00:00 [place] Medic al Branch History SDOH 2022-08-13 2022-08-13 2 University o f Transport Non-Med 00:00:00 00:00:00 [place] M edical Branch History SDOH 2022-08-13 2022-08-13 2 University o f Housing Unable to 00:00:00 00:00:00 [place] M edical Pay Branch History SDOR 2022-08-13 2022-08-13 1 University o f Housing Places 00:00:00 00:00:00 [place] Medi gray Lived Branch History SDOR 2022-08-13 2022-08-13 2 University o f Housing Homeless 00:00:00 00:00:00 [facility] dical Last Year Branch Sex [birth year] At [birth year] Universit y of 00:00:00 00:00:00 [facility] Smoking Status Start Date Stop Date Source Smokes tobacco daily 2022-10-23 00:00:00 Univers ity of [facility] Tobacco smoking [place] [facility] [facility] consumption unknown Health (finding) Ex-smoker 2022-02-25 00:00:00 2022-02-25 [facility] 00:00:00 Center Medications Ordered Filled Start Stop Current Ordering Indication Dosage Frequency Signature Comments Components Source Medication Medication Date Date Medication? Clinician (SIG) Name Name sulfamethox 2022- Yes [id number] 1{tbl} Take 1 Univers azole-trime 08-16 tablet by it y of thoprim 00:00: 04:59 mouth in [place] 800-160 mg 00 :00 the Medical per tablet morning Branch and 1 tablet in the evening. Do all this for 12 days. sulfamethox 2022- Yes [id number] 1{tbl} Take 1 Univers azole-trime -11 13- tablet by it y of thoprim 00:00: 04:59 mouth in [place] 800-160 mg 00 :00 the Medical per tablet morning Branch and 1 tablet in the evening. Do all this for 12 days. sulfamethox 2022- Yes [id number] 1{tbl} Take 1 Univers azole-trime 08-16 tablet by it y of thoprim 00:00: 04:59 mouth in [place] 800-160 mg 00 :00 the Medical per tablet morning Branch and 1 tablet in the evening. Do all this for 12 days. sulfamethox 2022- Yes [id number] 1{tbl} Take 1 Univers azole-trime 08-16 tablet by it y of thoprim 00:00: 04:59 mouth in [place] 800-160 mg 00 :00 the Medical per tablet morning Branch and 1 tablet in the evening. Do all this for 12 days. sulfamethox 2022- Yes [id number] 1{tbl} Take 1 Univers azole-trime 08-16 tablet by it y of thoprim 00:00: 04:59 mouth in [place] 800-160 mg 00 :00 the Medical per tablet morning Branch and 1 tablet in the evening. Do all this for 12 days. sulfamethox 2022- Yes [id number] 1{tbl} Take 1 Univers azole-trime 08-16 tablet by it y of thoprim 00:00: 04:59 mouth in [place] 800-160 mg 00 :00 the Medical per tablet morning Branch and 1 tablet in the evening. Do all this for 12 days. sulfamethox 2022- No [id number] 1{tbl} Take 1 Univers azole-trime 08-16 tablet by it y of thoprim 00:00: 00:00 mouth in [place] 800-160 mg 00 :00 the Medical per tablet morning Branch and 1 tablet in the evening. Do all this for 11 days. vancomycin 2022- Yes 15mg/kg 1,000 mg Univers (VANCOCIN) 08-15- (rounded ity of 1,000 mg in 12:15: 12:14 [place] NaCl 0.9% 00 :00 mg = 15 Medical (NS) 250 mL mg/kg ?62 [facility] VIAL-MATE kg), IV IV Piggyback, piggyback Q12H ABX, 10 doses, First dose on Mary Beth 08/15/22 at 0715, Last dose on 08/19/22 at 1915, Administer over 60 Minutes, 250 mL
Reas on for Anti-Infec tive: Empiric Therapy for Suspected Infection< br>Empiric Therapy Site: Abdominal< br>Duratio n of therapy: 5 days sennosides- 0 Yes 1{tbl} 1 tablet, Univers docusate 608 Oral, ity of sodium 06:15: DAILY, [place] (SENOKOT-S) 00 First dose Me dical 8.6-50 [...] 4647 1{tbl} Take 1 U nivers -acetaminop 6-10 13-16 tablet by it y of hen 5-325 00:00: 04:59 mouth [place] mg tablet 00 :00 every 6 Medical (six) Branch hours as needed for Pain (scale 7-10) for up to 7 days. Indication s: acute pain HYDROcodone 2022- Yes [id number] 1{tbl} Take 1 U nivers -acetaminop 08-15 tablet by it y of hen 5-325 [...] Yes 1000mg 1,000 mg, U nivers (MAXIPIME) 08-13-11 IV ity of 1,000 mg in 09:00: 08:59 Piggyback, [place] NaCl 0.9% 00 :00 Q12H ABX, Medic al (NS) 100 mL 10 doses, [facility] MINI-BAG First dose on Fri08/13/22 at 0400, Last dose on Fri08/17/22 at 1600, Administer over 4 Hours, 100 mL
Reas on for Anti-Infec tive: Empiric Therapy for Suspected Infection< br>Empiric Therapy Site: Urine
D uration of therapy: 5 days vancomycin 2022- No 15mg/kg 1,000 mg Univers (VANCOCIN) 08-13 (rounded ity of 1,000 mg in 00:00: 11:42 [place] NaCl 0.9% 00 :39 mg = 15 Medical (NS) 250 mL mg/kg ?62 [facility] VIAL-MATE kg), IV IV Piggyback, piggyback Q12H [...] ity of 1,000 mg in 21:00: 02:12 [place], [place] NaCl 0.9% 00 :00 ONCE, 1 Medical (NS) 100 mL dose, On Bran ch MINI-BAG 08/12/22 at 1600, Administer over 4 Hours, 100 mL
R tonya for Anti-Infec tive: Empiric Therapy for Suspected Infection< br>Empiric Therapy Site: Urine
D uration of therapy: 5 days morpHINE (2 2022- No 2mg 2 mg, Slow Univers mg/mL) 08-12 IV Push, ity of injection 2 20:48: 05:59 [place]PRN[place] mg 27 :35 Starting Medical on Mon Branch 08/12/22 at 1548, Until Mary Beth 08/15/22 at [...] dose, On Fri08/12/22 at 1400, STAT ferrous Yes 325mg Take 325 [facility] sulfate 325 4-07 mg by [facility] (65 FE) MG 14:05: mouth Medica l tablet 14 daily with Center breakfast. ferrous Yes 325mg Take 325 [facility] t sulfate 325 4-07 mg by [facility] (65 FE) MG 14:05: mouth Medica l tablet 14 daily with Center breakfast. folic acid 2023- No 1mg QD Take [address] (FOLVITE) 1 4- 04-06 tablet (1 Marj kes MG tablet 00:00: 23:59 mg total) Me dical 00 :00 by mouth Center in the morning. thiamine 2023- No 100mg QD Take 1 [facility] t 100 MG 4- 04-06 tablet [facility] tablet 00:00: 23:59 (100 mg Medical 00 :00 total) by Center mouth in the morning. folic acid 2023- No 1mg QD Take [address] (FOLVITE) 1 4- 04-06 tablet (1 Marj kes MG tablet 00:00: 23:59 mg total) Me dical 00 :00 by mouth Center in the morning. thiamine 2023- No 100mg QD Take 1 [facility] 100 MG 4- 04-06 tablet [facility] tablet 00:00: 23:59 (100 mg [...] for up to 7 days. ondansetron 2021-03 4mg Take [address] (ZOFRAN-ODT 04-30 tablet (4 Marj kes ) 4 MG 00:00: 23:59 mg total) Medic al disintegrat 00 :00 by mouth Cent er ing tablet every 8 (eight) hours as needed for up to 7 days. Vital Signs Vital Name Observation Time Observation Value Comments Source Systolic blood 2022-08-15 20:56:00 104 mm[Hg] Univer sity [facility] Diastolic blood 2022-08-15 20:56:00 58 mm[facility]Hg[facility] 2022-08-15 20:56:00 78 /min [facility] Body temperature 2022-08-15 20:56:00 36.39 Emelyn [facility] Respiratory rate 2022-08-15 20:56:00 18 /min [facility] Oxygen saturation in 2022-08-15 20:56:00 99 /[facility] Arterial blood by [facility] [place] [facility] Pulse oximetry [place] Body weight 2022-08-14 15:00:[address] [facility] BMI 2022-08-14 15:00:00 22.75 kg/m2 [facility] Body height 2022-08-12 16:29:[address] [facility] WEIGHT 2022-07-27 04:25:00 60.328 kg WEIGHT [...] 2022-06-08 11:00:00 63.5 kg WEIGHT 2022-03-09 11:47:00 72.317603 kg HEIGHT 2022-03-09 11:47:00 165.1 cm Body Temperature 2022-03-09 09:36:00 97.7 [degF] [facility] Heart Rate 2022-03-09 09:36:00 59 /min [facility] Respiratory rate 2022-03-09 09:36:00 20 /min [facility] Oxygen saturation by 2022-03-09 09:36:00 97 /min [place] Pulse oximetry [facility] BP Systolic 2022-03-09 09:36:00 99 mm[Hg] [facility] BP Diastolic 2022-03-09 09:36:00 58 mm[Hg] [facility] HEIGHT 2022-02-26 17:00:00 165.1 cm WEIGHT 2022-02-26 17:00:00 72.576 kg HEIGHT 2022-02-26 17:00:00 165.1 cm WEIGHT 2022-02-26 17:00:00 72.576 kg Heart rate 2022-06-14 12:46:18 73 /min [facility] Respiratory rate 2022-06-14 12:46:18 18 /min [facility] Oxygen saturation in 2022-06-14 12:46:18 100 /min [facility] Arterial blood by Medical nter Pulse oximetry Body temperature 2022-06-14 12:45:29 36.61 Emelyn [facility] Systolic blood 2022-06-14 12:45:15 100 mm[Hg] [facility] Diastolic blood 2022-06-14 12:45:15 64 mm[Hg] [facility] Body height 2022-06-08 11:00:00 165.1 cm [facility] Body weight 2022-06-08 11:00:00 63.5 kg [facility] BMI 2022-06-08 11:00:00 23.30 kg/m2 [facility] Heart rate 2022-02-27 11:58:02 65 /min [facility] Respiratory rate 2022-02-27 11:58:02 17 /min [facility] Oxygen saturation in 2022-02-27 11:58:02 96 /min [facility] Arterial blood by Medical Ce nter Pulse oximetry Body temperature 2022-02-27 11:57:00 36.89 Emelyn [facility] Systolic blood 2022-02-27 11:56:30 95 mm[Hg] [facility] Diastolic blood 2022-02-27 11:56:30 54 mm[Hg] [facility] Body height 2022-02-26 18:01:00 165.1 cm [facility] Body weight 2022-02-26 18:01:00 72.6 kg [facility] BMI 2022-02-26 18:01:00 26.63 kg/m2 [facility] Procedures Procedure Date / Time Performing Clinician Source Performed [facility] CONSENT FOR 2022-10-23 Doctor Unassigned, [facility] FREE TREATMENT FORM 14:31:18 [place] Medical Bran ch VANCOMYCIN RANDOM LEVEL 2022-08-15 Venkat Del Valle [facility] 10:23:00 [facility] VANCOMYCIN RANDOM LEVEL 2022-08-14 Venkat [facility] 14:26:00 Medical Branch MAGNESIUM 2022-08-14 Kevin Rosario [facility] 09:57:00 [facility] BASIC METABOLIC PANEL (NA, 2022-08-14 Abraham [facility] K, CL, CO2, GLUCOSE, BUN, 09:57:00 [facility] CREATININE, [place]) VANCOMYCIN TROUGH 2022-08-14 [facility]:57[facility] WITH DIFF 2022-08-14 Abraham [facility] 09:57:00 Medical Branch US RETROPERITONEAL LIMITED 2022-08-13 Venkat Del Valle [facility] 21:14:00 [facility] LACTATE DEHYDROGENASE 2022-08-13 [facility] 15:56:00 Medical Branch RETICULOCYTES AUTOMATED 2022-08-13 [facility] 08:[facility] MAGNESIUM 2022-08-13 [facility] 08:53:00 Medical Branch FERRITIN SERUM 2022-08-13 [facility] [place] 08:53:00 [facility] HAPTOGLOBIN, SERUM 2022-08-13 [facility] 08:53:00 [facility] BASIC METABOLIC PANEL (NA, 2022-08-13 Rohan [facility] K, CL, CO2, GLUCOSE, BUN, 08:53:00 [facility] CREATININE, CA) IRON PANEL 2022-08-13 Ivon [facility] xas 08:53:00 Medical Branch CBC WITH DIFF 2022-08-13 [facility] 08:53:00 Medical Branch CREATININE, URINE RANDOM 2022-08-12 Venkat [facility] 21:18:00 [facility] UREA NITROGEN, URINE RANDOM 2022-08-12 [facility] 21:18:00 [facility] SODIUM, URINE RANDOM 2022-08-12 Ivon [facility] 21:18:00 [facility] TEST, URINE 2022-08-12 [facility] 21:18:00 [facility] URINALYSIS 2022-08-12 [facility] 21:18:00 [facility] N-TERMINAL PRO-BNP 2022-08-12 Rohan [facility] 21:07:[address] [facility] [address] ABDOMEN PELVIS WO 2022-08-12 [facility] CONTRAST 20:14:10 [facility] MRSA / MSSA SCREEN BY PCR, 2022-08-12 [facility] 17:31:00 [facility] PHOSPHORUS 2022-08-12 Rohan [facility] xas 17:27:00 [facility] MAGNESIUM 2022-08-12 Rohan, [facility] xas 17:27:00 [facility] THYROID STIMULATING HORMONE 2022-08-12 Rohan, [facility] 17:27:00 [facility] HEPATIC FUNCTION PANEL 2022-08-12 [id number] (ALB,T.PRO,BILI 17:27:00 [facility] T,BU/BC,ALT,AST,ALK PHOS) BASIC METABOLIC PANEL (NA, 2022-08-12 Rohan, [facility] K, CL, CO2, GLUCOSE, BUN, 17:27:00 Medica l Branch CREATININE, [place]) CBC WITH DIFF 2022-08-12 [facility] 17:27:00 [facility] GLYCOSYLATED HEMOGLOBIN 2022-08-12 [facility] ([facility] 17:27:00 [facility] PROTHROMBIN TIME / INR 2022-08-12 [facility] 17:27:00 [facility] ACTIVATED PARTIAL THRMPLAS 2022-08-12 [facility]IE 17:27:00 [facility] XR CHEST 1 VW 2022-08-12 [facility] 17:10:00 [facility] BASIC METABOLIC PANEL 2022-06-[address] [facility] 03:21:00 [facility] CBC (HEMOGRAM ONLY) 2022-06-[address] [facility] 03:21:00 [facility] CBC (HEMOGRAM ONLY) 2022-06-[address] [facility] 17:15:00 [facility] CBC (HEMOGRAM ONLY) 2022-06-[address] [facility] 03:20:00 [facility] BASIC METABOLIC PANEL 2022-06-[address] [facility] 03:20:00 [facility] PROTHROMBIN TIME/INR 2022-06-[address] [facility] 09:42:00 [facility] CBC W/PLT COUNT & AUTO 2022-06-12 Rox[facility]inalini [facility] DIFFERENTIAL 09:42:00 [facility] CBC W/PLT COUNT & AUTO 2022-06-12 Rox, [facility]inalini [facility] DIFFERENTIAL 09:42:00 [facility] BASIC METABOLIC PANEL 2022-06-12 Naomyhorifroilan, Jennifer [facility] 08:39:00 [facility] MAGNESIUM 2022-06-12 Naomyhorifroilan, Jennifer [facility] 08:39:00 [facility] PHOSPHORUS 2022-06-[address] [facility] 08:39:00 [facility] HEPATIC FUNCTION PANEL 2022-06-[address] [facility] 08:39:00 [facility] PREPARE LEUKO-REDUCED 2022-06-[address] [facility] PLATELETS 23:54:00 [facility] CALCIUM, IONIZED 2022-06-[address] [facility] 12:08:00 [facility] CBC (HEMOGRAM ONLY) 2022-06-[address] [facility] 12:08:00 [facility] PROTHROMBIN TIME/INR 2022-06-[address] [facility] 12:08:00 [facility] BASIC METABOLIC PANEL 2022-06-11 Zahorifroilan, Jennifer [facility] 12:08:00 [facility] POCT-GLUCOSE METER 2022-06-[address] [facility] 11:51:00 [facility] POCT-GLUCOSE METER 2022-06-[address] [facility] 06:30:00 [facility] CBC (HEMOGRAM ONLY) 2022-06-[address] [facility] 05:01:00 Medical Center PROTHROMBIN TIME/INR 2022-06-11 Alore, Becki Murry [facility] 05:01:00 [facility] CALCIUM, IONIZED 2022-06-11 Alore, Becki Ann [facility] 04:32:00 [facility] HEPATIC FUNCTION PANEL 2022-06-11 Manuel, Kouame [facility] 03:02:00 [facility] PHOSPHORUS 2022-06-11 Manuel, Kouame [facility] 03:02:00 [facility] MAGNESIUM 2022-06-11 Alore, Becki Murry [facility] 03:02:00 [facility] POCT-GLUCOSE METER 2022-06-[address] [facility] 00:34:00 [facility] PREPARE LEUKO-REDUCED RBC 2022-06-10 Manuel, Kouame [facility] 23:54:00 [facility] PREPARE LEUKO-REDUCED 2022-06-[address] [facility] 23:54:00 [facility] CALCIUM, IONIZED 2022-06-10 Alore, Becki Murry [facility] 22:12:00 [facility] PROTHROMBIN TIME/INR 2022-06-10 Alore, Becki Ann [facility] 22:12:00 [facility] CBC W/PLT COUNT & AUTO 2022-06-10 Denilson, Emir Kane [facility] DIFFERENTIAL 22:12:00 [facility] CBC W/PLT COUNT & AUTO 2022-06-10 Denilson, Emir Kane [facility] DIFFERENTIAL 22:12:00 [facility] CALCIUM, IONIZED 2022-06-10 Alore, Becki Murry [facility] 17:19:00 [facility] CBC (HEMOGRAM ONLY) 2022-06-10 Alore, Becki Ann [facility] 17:19:00 [facility] FIBRINOGEN 2022-06-10 Alore, Becki Ann [facility] 17:19:00 [facility] PROTHROMBIN TIME/INR 2022-06-10 Alore, Becki Ann [facility] 17:19:00 [facility] POCT-GLUCOSE METER 2022-06-[address] [facility] 17:18:00 [facility] TRANSFUSE LEUKO-REDUCED 2022-06-[address] [facility] 12:05:00 [facility] CALCIUM, IONIZED 2022-06-10 Alore, Becki Lovely [facility] 12:03:00 [facility] CBC (HEMOGRAM ONLY) 2022-06-10 Alore, Becki Murry [facility] 12:03:00 [facility] FIBRINOGEN 2022-06-10 Alore, Becki Ann [facility] 12:03:00 [facility] PROTHROMBIN TIME/INR 2022-06-10 Alore, Becki Ann [facility] 12:03:00 [facility] POCT-GLUCOSE METER 2022-06-[address] [facility] 11:11:00 [facility] VANCOMYCIN LEVEL, TROUGH 2022-06-[address] [facility] 09:06:00 [facility] CALCIUM, IONIZED 2022-06-10 Alore, Becki Ann [facility] 05:57:00 [facility] CBC (HEMOGRAM ONLY) 2022-06-10 Alore, Becki Lovely [facility] 05:57:00 [facility] FIBRINOGEN 2022-06-10 Alore, Becki Lovely [facility] 05:57:00 Medical Center PROTHROMBIN TIME/INR 2022-06-10 Alore, Becki Lovely [facility] 05:57:00 [facility] POCT-GLUCOSE METER 2022-06-[address] [facility] 05:30:[address] [facility] CALCIUM, IONIZED 2022-06-10 Alore, Becki Ann [facility] 01:00:00 [facility] CBC (HEMOGRAM ONLY) 2022-06-10 Alore, Becki Lovely [facility] 01:00:00 [facility] FIBRINOGEN 2022-06-10 Alore, Becki Lovely [facility] 01:00:00 [facility] PROTHROMBIN TIME/INR 2022-06-10 Alore, Becki Lovely [facility] 01:00:00 [facility] HEPATIC FUNCTION PANEL 2022-06-[address] [facility] 01:00:00 [facility] PHOSPHORUS 2022-06-10 Manuel, Kouame [facility] 01:00:00 [facility] BASIC METABOLIC PANEL 2022-06-10 [facility]za [facility] 01:00:00 [facility] MAGNESIUM 2022-06-[address] [facility] 01:00:00 [facility] PREPARE LEUKO-REDUCED RBC 2022-06-09 Noa Loyola [facility] 23:54:00 [facility] PREPARE PLASMA 2022-06-[address] [facility] 23:54:00 [facility] PREPARE CRYOPRECIPITATE 2022-06-[address] [facility] 23:54:00 [facility] PREPARE LEUKO-REDUCED 2022-06-[address] [facility] 23:54:00 [facility] POCT-GLUCOSE METER 2022-06-[address] [facility] 23:22:[address] [facility] TRANSFUSE LEUKO-REDUCED 2022-06-09 [address] [facility] 22:55:00 [facility] POCT-GLUCOSE METER 2022-06-[address] [facility] 17:17:[address] [facility] CALCIUM, IONIZED 2022-06-09 Becki Barboza [facility] 17:14:00 [facility] CBC (HEMOGRAM ONLY) 2022-06-[address] [facility] 17:14:00 [facility] FIBRINOGEN 2022-06-[address] [facility] 17:14:00 [facility] PROTHROMBIN TIME/INR 2022-06-[address] [facility] 17:14:00 [facility] BLOOD CULTURE 2022-06-[address] [facility] 15:03:00 [facility] POCT-GLUCOSE METER 2022-06-[address] [facility] 12:15:[address] [facility] CALCIUM, IONIZED 2022-06-09 Becki Barboza [facility] 12:05:00 [facility] CBC (HEMOGRAM ONLY) 2022-06-09 Alore, Becki Lovely [facility] 12:05:00 [facility] FIBRINOGEN 2022-06-09 Alore, Becki Lovely [facility] 12:05:00 [facility] PROTHROMBIN TIME/INR 2022-06-09 Alore, Becki Lovely [facility] 12:05:00 [facility] PROCALCITONIN 2022-06-09 Alore, Becki Lovely [facility] 12:05:00 [facility] BLOOD GAS, ARTERIAL 2022-06-09 Manuel, Kouame [facility] 08:18:00 [facility] PROTHROMBIN TIME/INR 2022-06-09 Alore, Becki Lovely [facility] 08:13:00 [facility] CBC (HEMOGRAM ONLY) 2022-06-09 Manuel, Kouame [facility] 08:13:00 [facility] BASIC METABOLIC PANEL 2022-06-09 Manuel, Kouame [facility] 08:13:00 [facility] FIBRINOGEN 2022-06-09 Manuel, Kouame [facility] 08:13:00 [facility] LACTIC ACID, ARTERIAL 2022-06-09 Manuel, Kouame [facility] 08:13:00 [facility] CALCIUM, IONIZED 2022-06-09 Manuel, Kouame [facility] 08:13:00 [facility] MAGNESIUM 2022-06-09 Manuel, Kouame [facility] 08:13:00 [facility] URINALYSIS W/ REFLEX URINE 2022-06-09 Ruperto, Patsy Lisa [facility] CULTURE 04:49:00 [facility] RAPID DRUG SCREEN, URINE 2022-06-09 Ruperto, Patsy [facility] 04:49:00 [facility] DRUG TEST, GENERAL 2022-06-[address] [facility] TOXICOLOGY, URINE 04:49:00 D. [facility] BLOOD GAS, ARTERIAL 2022-06-09 Manuel, Kouame [facility] 04:29:00 [facility] PROTHROMBIN TIME/INR 2022-06-09 Alore, Becki Lovely [facility] 04:28:00 [facility] CBC (HEMOGRAM ONLY) 2022-06-09 Manuel, Chikis [facility] 04:28:00 [facility] BASIC METABOLIC PANEL 2022-06-09 Manuel, Chikis [facility] 04:28:00 [facility] FIBRINOGEN 2022-06-09 [facility] 04:28[facility]00 [facility] LACTIC ACID, ARTERIAL 2022-06-09 Manuel, Chikis [facility] 04:28:00 [facility] HEPATIC FUNCTION PANEL 2022-06-09 [facility] 04:28[facility]00 [facility] CALCIUM, IONIZED 2022-06-09 Manuel, [facility]ikis [facility] 04:28:00 [facility] PHOSPHORUS 2022-06-09 [facility] 04:28:00 [facility] MAGNESIUM 2022-06-09 [facility] 04:28:00 [facility] VWF ACTIVITY 2022-06-09 Ramon Botello [facility] 04:28:00 [facility] XR CHEST 1 VIEW PORTABLE / 2022-06-09 Manuel [facility]is [facility] 01:43:00 [facility] TRANSFUSE LEUKO-REDUCED 2022-06-09 [facility] 01:38:00 [facility] THROMBOELASTOGRAPH (TEG) 2022-06-09 Manuel Chikis [facility] 01:14:00 [facility] TRANSFUSE PLASMA 2022-06-09 [facility] 00:46:00 [facility] TRANSFUSE LEUKO-REDUCED RED 2022-06-09 [facility] BLOOD CELLS 00:34:00 [facility] CBC W/PLT COUNT & AUTO 2022-06-09 [facility] DIFFERENTIAL 00:29:00 [facility] CBC W/PLT COUNT & AUTO 2022-06-09 Manuel, Kouame [facility] DIFFERENTIAL 00:29:00 [facility] (CELLAVISION MANUAL DIFF) 2022-06-09 Manuel, Kouame [facility] 00:29:00 [facility] BLOOD GAS, ARTERIAL 2022-06-09 Manuel, Kouame [facility] 00:26:00 [facility] VITAMIN B12 2022-06-[address] [facility] 00:25:00 [facility] BASIC METABOLIC PANEL 2022-06-09 Manuel, Kouame [facility] 00:25:00 [facility] FIBRINOGEN 2022-06-09 Manuel, Kouame [facility] 00:25:00 [facility] LACTIC ACID, ARTERIAL 2022-06-09 Manuel, Kouame [facility] 00:25:00 [facility] CALCIUM, IONIZED 2022-06-09 Manuel, Kouame [facility] 00:25:00 [facility] MAGNESIUM 2022-06-09 Manuel, Kouame [facility] 00:25:00 [facility] XR CHEST 1 VIEW PORTABLE / 2022-06-09 Manuel, [facility] 00:15:00 [facility] CBC (HEMOGRAM ONLY) 2022-06-08 Manuel, Kouame [facility] 22:09:00 [facility] BLOOD GAS, ARTERIAL 2022-06-08 Manuel, Kouame [facility] 22:06:00 [facility] TRANSFUSE PLASMA 2022-06-08 Mofor, Loyce Tiomela [facility] 21:51:00 [facility] PREPARE PLASMA 2022-06-08 Manuel, Kouame [facility] 21:29:00 [facility] BLOOD GAS, ARTERIAL 2022-06-08 Mofor, Loyce Tiomela [facility] 20:53:00 [facility] FIBRINOGEN 2022-06-[address] [facility] 20:50:00 [facility] PROTHROMBIN TIME/INR 2022-06-[address] [facility] 20:50:00 [facility] [place] MAGNESIUM 2022-06-08 Manuel, Kouame [facility] 20:50:00 [facility] PHOSPHORUS 2022-06-08 Manuel, Kouame [facility] 20:50:00 [facility] CALCIUM, IONIZED 2022-06-08 Manuel, Kouame [facility] 20:50:00 [facility] LACTIC ACID, ARTERIAL 2022-06-08 Manuel, Kouame [facility] 20:50:00 [facility] APTT 2022-06-08 Manuel, Kouame [facility] 20:50:00 [facility] THROMBOELASTOGRAPH (TEG) 2022-06-08 Manuel, Kouame [facility] 20:50:00 [facility] IR EMBOLIZATION ARTERIAL 2022-06-08 Mofor, Landene [facility]ela [facility] 20:33:00 [facility] TRANSFUSE LEUKO-REDUCED RED 2022-06-08 Analior, Landene Tiomela [facility] BLOOD CELLS 20:31:00 [facility] TRANSFUSE LEUKO-REDUCED RED 2022-06-08 Mofor, Loyce Tiomela [facility] BLOOD CELLS 18:18:00 [facility] SCREEN, URINE 2022-06-08 Mofor, Landene Tiomela [facility] 18:14:00 [facility] TRANSFUSE CRYOPRECIPITATE 2022-06-[address] [facility] 18:04:00 [facility] TRANSFUSE PLASMA 2022-06-08 Jack, Landene Tiomela [facility] 17:57:00 [facility] TRANSFUSE LEUKO-REDUCED 2022-06-08 Manuel, Yordanme [facility] 17:41:00 [facility] THROMBOELASTOGRAPH (TEG) 2022-06-08 Mofor, Loyce [facility]ela [facility] 17:36:00 [facility] LACTIC ACID, ARTERIAL 2022-06-[address] [facility] [facility] 17:35:00 [facility] PT/APTT 2022-06-08 Mofor, Loyce Tiomela [facility] 17:35:00 [facility] FIBRINOGEN 2022-06-08 Matthew Santiago Tiomela [facility] 17:35:00 [facility] D-DIMER 2022-06-[address] [facility] 17:35:00 [facility] CALCIUM, IONIZED 2022-06-[address] [facility] 17:35:00 [facility] CBC W/PLT COUNT & AUTO 2022-06-[address] [facility] DIFFERENTIAL 17:35:00 [facility] BASIC METABOLIC PANEL 2022-06-08 Matthew Santiago [facility] 17:35:00 [facility] RETICULOCYTE COUNT 2022-06-[address] [facility] [facility] 17:35:00 [facility] LACTATE DEHYDROGENASE (LDH) 2022-06-[address] [facility] 17:35:00 [facility] CBC W/PLT COUNT & AUTO 2022-06-[address] [facility] DIFFERENTIAL 17:35:00 [facility] POCT-BLOOD GASES, ARTERIAL 2022-06-08 DorisAmalia [facility] 17:22:[address] [facility] POCT-SODIUM 2022-06-[address] [facility] 17:22:[address] [facility] POCT-POTASSIUM 2022-06-08 Doris, Amalia [facility] 17:22:[address] [facility] POCT-HEMOGLOBIN 2022-06-[address] [facility] 17:22:[address] [facility] POCT-HEMATOCRIT 2022-06-[address] [facility] 17:22:[address] [facility] POCT-GLUCOSE 2022-06-[address] [facility] 17:22:[address] [facility] HEPATITIS C PCR, 2022-06-08 Dadlani, Apaar [facility] QUANTITATIVE 16:26:00 [facility] HEPATITIS B PCR, 2022-06-08 Dadlani, Apaar [facility] QUANTITATIVE 16:26:00 [facility] CMV PCR, QUANTITATIVE 2022-06-08 Dadlani, Apaar [facility] 16:26:00 [facility] EBV VIRAL LOAD 2022-06-08 [address]enez [facility] 16:26:00 [facility] TRANSFUSE LEUKO-REDUCED RED 2022-06-08 Chikis Jackson [facility] BLOOD CELLS 16:15:00 [facility] SALICYLATE LEVEL 2022-06-08 Joey Cr[address] [facility] 15:26:00 [facility] CORTISOL 2022-06-[address] [facility] 15:26:00 [facility] HEPATITIS B CORE ANTIBODY, 2022-06-08 [facility] TOTAL 15:26:00 [facility] HEPATITIS A ANTIBODY, IGG 2022-06-08 [facility] 15:26:00 [facility] HEPATITIS B SURFACE ANTIBODY 2022-06-08 [facility] 15:26:00 [facility] CERULOPLASMIN 2022-06-08 [facility] 15:26:00 [facility] [id number]\\, SERUM 2022-06-[address] [facility] 15:26:00 [facility] ANTI-NUCLEAR ANTIBODY (HAYDEN) 2022-06-08 [facility] 15:26:00 [facility] HEPATITIS A ANTIBODY, IGM 2022-06-08 Pernell Apaar [facility] 15:26:00 [facility] EBV ANTIBODY, IGM 2022-06-08 [facility] 15:26:00 [facility] FERRITIN 2022-06-08 Ramon Botello [facility] 15:26:00 [facility] IRON, TIBC, % SAT. (WITHOUT 2022-06-08 Rosmery Ramon Carson [facility] FERRITIN) 15:26:00 [facility] ACTIN (SMOOTH MUSCLE) 2022-06-08 Y[address]Laura jones [facility] ANTIBODY, IGG 15:26:00 [facility] HEPATITIS E ABS IGG/IGM EIA 2022-06-08 Yonatanrobert Apagarry [facility] 15:26:00 [facility] MITOCHONDRIAL AB SCREEN 2022-06-08 [facility] Laura [facility] 15:26:00 [facility] [place] MITOCHONDRIAL AB TITER 2022-06-[address] [facility] 15:26:00 [facility] AMMONIA 2022-06-[address] [facility] 15:00:00 [facility] CREATINE KINASE (CK) 2022-06-[address] [facility] 14:37:00 [facility] GLUCOSE 2022-06-08 Mofor, Loyce Tiomela [facility] 14:37:00 [facility] SODIUM 2022-06-08 Mofor, Loyce Tiomela [facility] 14:37:00 [facility] POTASSIUM 2022-06-08 Mofor, Loyce Tiomela [facility] 14:37:00 [facility] [place] BASIC METABOLIC PANEL 2022-06-[address] [facility] 14:37:00 [facility] US ABDOMEN COMPLETE 2022-06-[address] [facility] 13:36:00 [facility] US DOPPLER 2022-06-[address] [facility] 13:36:00 [facility] Center XR CHEST 1 VIEW PORTABLE / 2022-06-[address] [facility] BEDSIDE 12:26:00 [facility] CBC W/PLT COUNT & AUTO 2022-06-[address] [facility] DIFFERENTIAL 12:23:00 D. [facility] [place] COMPREHENSIVE METABOLIC 2022-06-[address] [facility] PANEL 12:23:00 D. [facility] APTT 2022-06-08 José Miguel-Raya, Joey [facility] 12:23:00 [facility] PROTHROMBIN TIME/INR 2022-06-08 José Miguel-Raya, Joey [facility] 12:23:00 [facility] MAGNESIUM 2022-06-08 José Miguel-Raya, Joey [facility] 12:23:00 [facility] PHOSPHORUS 2022-06-08 José Miguel-Raya, Joey [facility] 12:23:00 D. [facility] [place] IRON, TIBC, % SAT. (WITHOUT 2022-06-08 Zachariaho, Joey [facility] FERRITIN) 12:23:00 D. [facility] FERRITIN 2022-06-08 MelaniealMiltono, Joey [facility] 12:23:00 [facility] VITAMIN B12 2022-06-08 MelaniealMiltono, Joey [facility] 12:23:00 [facility] FIBRINOGEN 2022-06-08 Nir, Noa [facility] 12:23:00 [facility] TSH/FREE T4 IF INDICATED 2022-06-08 Vassar, Noa [facility] 12:23:00 [facility] HEPATITIS C ANTIBODY 2022-06-08 [facility] 12:23:00 [facility] HEPATITIS B SURFACE ANTIGEN 2022-06-08 [facility], Apaar [facility] 12:23:00 [facility] HC LAB HIV-1 AG W/HIV-1&2 AB 2022-06-08 [facility] 12:23:00 [facility] T4, FREE 2022-06-08 Nir, Noa [facility] 12:23:00 [facility] TYPE AND SCREEN, AUTOMATED 2022-06-08 Karley, Joey [facility] 12:23:00 D[facility] CBC W/PLT COUNT & AUTO 2022-06-[address] [facility] DIFFERENTIAL 12:23:00 D[facility] POCT-BLOOD GASES, ARTERIAL 2022-06-08 Amalia George [facility] 12:18:[address] [facility] POCT-SODIUM 2022-06-08 Doris, Amalia [facility] 12:18:[address] [facility] POCT-POTASSIUM 2022-06-08 Doris, Amalia [facility] 12:18:[address] [facility] POCT-HEMOGLOBIN 2022-06-08 Doris, Amalia [facility] 12:18:[address] [facility] POCT-HEMATOCRIT 2022-06-08 Doris, Amalia [facility] 12:18:[address] [facility] POCT-GLUCOSE 2022-06-08 Amalia George [facility] 12:18:[address] [facility] EKG-SCANNED 2022-06-08 Provider, Default [facility] 00:00:00 [facility] US Pelvic Transvag W Doppler 2022-03-09 [facility] 03:52:[address] Abdomen Pelvis W Con 2022-03-09 [facility] 00:15:00 Health EKG 12 Lead in Emergency 2022-03-[facility] Room 23:09:00 Health XR Chest 1 View Portable 2022-03-[facility] 23:08:00 Health PREPARE RBC 2022-02-[address] [facility] 23:54:00 [facility] MAGNESIUM 2022-02-[address] [facility] 03:49:00 [facility] PHOSPHORUS 2022-02-[address] [facility] 03:49:00 [facility] IRON, TIBC, % SAT. (WITHOUT 2022-02-27 Soheila-Rach Sung In [facility] FERRITIN) 03:49:00 [facility] FERRITIN 2022-02-27 Soheila-Rcah, Sung In [facility] 03:49:00 [facility] INCUBATED 1:1 MIXING STUDY 2022-02-27 Soheila-Rach Sung [facility] 03:49:00 [facility] BASIC METABOLIC PANEL 2022-02-27 Soheila-Rach Sung In [facility] 03:49:00 H [facility] CBC (HEMOGRAM ONLY) 2022-02-27 Soheila-Rach Sung In [facility] 03:49:00 [facility] TISSUE EXAM 2022-02-26 Chirumbole, Yamile [facility] 16:38:00 [facility] CBC (HEMOGRAM ONLY) 2022-02-26 Soheila-Rach, Sung [facility] 08:34:00 [facility] PT/APTT 2022-02-26 Soheila-Rach, Sung In [facility] 08:33:00 H [facility] FACTOR 9 ACTIVITY 2022-02-26 Soheila-Rach Sung In [facility] 08:33:00 [facility] FACTOR 8 ACTIVITY 2022-02-26 Nathaniel Dooley In [facility] 08:33:00 [facility] HEMOGLOBIN AND HEMATOCRIT 2022-02-[address] [facility] 05:29:00 [facility] RETICULOCYTE COUNT 2022-02-26 Nathaniel Dooley In [facility] 05:29:00 [facility] CALCIUM, IONIZED 2022-02-[address] [facility] 03:56:00 [facility] TRANSFUSE LEUKO-REDUCED RED 2022-02-[address] [facility] BLOOD CELLS 01:35:00 [facility] SARS-COV2/RT-PCR ([facility] & REF 2022-02-[address] [facility] LABS) 23:23:00 [facility] ABORH, MANUAL 2022-02-[address] [facility] 23:22:00 [facility] CBC W/PLT COUNT & AUTO 2022-02-[address] [facility] DIFFERENTIAL 22:03:00 [facility] COMPREHENSIVE METABOLIC 2022-02-[address] [facility] PANEL 22:03:00 [facility] PROTHROMBIN TIME/INR 2022-02-[address] [facility] 22:03:00 [facility] MAGNESIUM 2022-02-[address] [facility] 22:03:00 [facility] TYPE AND SCREEN, AUTOMATED 2022-02-[address] [facility] 22:03:00 [facility] CBC W/PLT COUNT & AUTO 2022-02-[address] [facility] DIFFERENTIAL 22:03:00 [facility] [id number] 2020-01-24 [facility] 00[facility]:00 [facility] [id number] 2020-01-24 [facility] 00:00:00 [facility] [id number] 2020-01-24 [facility] 00:[facility]:00 [facility] Plan of Care Planned Activity Planned [facility]00 (#1) [code = [facility] INFLUENZA VACCINE (#1)] Future Scheduled 2021-11-[address] [facility] Test 00:00:00 (#1) [code = [facility] INFLUENZA VACCINE (#1)] Future Scheduled 2021-11-[address] [facility] Test 00:00:00 (#1) [code = [facility] INFLUENZA VACCINE (#1)] Future Scheduled 2021-11-[address] [facility] Test 00:00:00 (#1) [code = [facility] INFLUENZA VACCINE (#1)] Future Scheduled 2021-03-[address] [facility] Test 00:00:00 (12+) [code = Medical Center DEPRESSION SCREENING (12+)] Future Scheduled 2004-09-[address] [facility] [facility] Test 00:00:00 malignant neoplasm of Medica l Center cervix (procedure) [code = [id number]] Future Scheduled 2002-09-07 DTAP/TDAP/TD VACCINES CH I [...] Clinicians Facility Department ID 2022-08-12 Inpatient ER [facility] Obstetrics [id number] 06:20:02 a [facility] 2022-03-09 Hospital ER [facility] Gynecology [id number] 00:00:00 Encounter [facility] 2020-01-24 Inpatient [place], [facility] SHANA [id number] [facility] 04:01:00 Armond [id number] [facility] 2022-11-04 2022-11-04 Patient JEFF Saba [id number] 00:00:00 00:00:00 Outreach Fiona GARCIA [id number] i ty of WELLNESS [id number] Larry as CENTER [id number] [facility] [address] 2022-10-23 2022-10-23 Patient MELANY Escobar [id number] [facility] 00:00:00 00:00:00 Outreach Jojo TAN [id number] i ty [id number] [id number] [facility] [facility] [address] 2022-10-23 2022-10-23 Orders Doctor LONGO 1.2.840.114 [id number] Univers 00:00:00 00:00:00 Only Unassigned, LINDA 350.1.13.10 ity of [place] [facility] 4.2.7.2.686 Larry as [phone] [facility] [address] 2022-10-23 2022-10-23 Patient JEFF Saba 1.2.840.114 [id number] Univers 00:00:00 00:00:00 Outreach Fionabud GARCIA 350.1.13.10 i ty of [place]LL[place] 4.2.7.2.686 Larry as CENTER [id number] [facility] [address] 2022-10-14 2022-10-14 Patient JEFF Saba 1.2.840.114 [id number] Univers 00:00:00 00:00:00 Outreach Fiona GARCIA 350.1.13.10 i ty of [place]LL[place] 4.2.7.2.686 Larry as CENTER [id number] [facility] [address] 2022-10-11 2022-10-11 Patient JEFF Saba 1.2.840.114 [id number] Univers 00:00:00 00:00:00 Outreach Fiona GARCIA 350.1.13.10 i ty of [place] 4.2.7.2.686 Larry as CENTER [id number] [facility] [address] 2022-10-10 2022-10-10 Patient JEFF Saba 1.2.840.114 [id number] Univers 00:00:00 00:00:00 Outreach Fiona GARCIA 350.1.13.10 i ty of [place] 4.2.7.2.686 Larry as CENTER [id number] [facility] [address] 2022-10-07 2022-10-07 Patient JEFF Saba 1.2.840.114 [id number] Univers 00:00:00 00:00:00 Outreach Fiona GARCIA 350.1.13.10 i ty of [place] 4.2.7.2.686 Larry as CENTER [id number] [facility] [address] 2022-10-04 2022-10-04 Patient JEFF Saba 1.2.840.114 [id number] Univers 00:00:00 00:00:00 Outreach Fiona GARCIA 350.1.13.10 i ty of [place]LL[place] 4.2.7.2.686 Larry as CENTER [id number] [place] [address] Branch 2022-10-03 2022-10-03 Patient Louisa Bryant 1.2.840.114 10 [id number] Univers 00:00:00 00:00:00 Outreach E TAN 350.1.13.10 [place] [id number] [address] 2022-09-19 2022-09-19 Patient JEFF Saba 1.2.840.114 [id number] Univers 00:00:00 00:00:00 Outreach Fiona CHAMBERSENS 350.1.13.10 i ty of [place]LL[place] 4.2.7.2.686 Larry as CENTER [id number] [address] 2022-09-18 2022-09-18 Patient JEFF Saba 1.2.840.114 [id number] Univers 00:00:00 00:00:00 Outreach Fiona CHAMBERSENS 350.1.13.10 i ty of [place]LL[place] 4.2.7.2.686 Larry as CENTER [id number] [address] 2022-09-12 2022-09-12 Patient Louisa Bryant 1.2.840.114 10 [id number] Univers 00:00:00 00:00:00 Outreach E TAN 350.1.13.10 [place] [id number] [address] 2022-09-05 2022-09-05 Patient Louisa Bryant 1.2.840.114 10 [id number] Univers 13:00:00 14:00:00 Outreach E TAN 350.1.13.10 [place] [id number] [address] 2022-09-03 2022-09-03 Patient Louisa Bryant 1.2.840.114 10 [id number] Univers 00:00:00 00:00:00 Outreach E TAN 350.1.13.10 [place] [id number] [address] 2022-08-27 2022-08-27 Patient Louisa Bryant 1.2.840.114 10 [id number] Univers 00:00:00 00:00:00 Outreach E TAN 350.1.13.10 [place] [id number] [address] 2022-08-23 2022-08-23 Patient Louisa Bryant 1.2.840.114 10 [id number] [facility] 00:00:00 00:00:00 Outreach E TAN 350.1.13.10 [place] [id number] [address] 2022-08-16 2022-08-16 Transition MELANY Ngo 1.2.840.114 [id number] Univers 00:00:00 00:00:00 of Care Angelica TAN 350.1.13.10 [place] [id number] [address] 2022-08-16 2022-08-16 Transition MELANY Ngo 1.2.840.114 103 [id number] Univers 00:00:00 00:00:00 of Care Angelica TAN 350.1.13.10 [place] [id number] [address] 2022-08-12 2022-08-15 Inpatient U [facility] [id number] Univers 11:27:00 18:44:00 ELLI mohan of [facility] 2022-08-12 2022-08-15 Hospital Elli Encarnacion 1.2.8 40.114 [id number] Univers 11:27:00 18:44:00 Encounter Vern Bell 350.1.1 3.10 ity of HOSPITAL 4.2.7.2.686 Larry as [id number] [address] 2022-07-21 2022-07-27 Inpatient ER JILLIAN HUNG Neuro ICU [id number] [facility] 10:45:00 13:59:00 BEN 2022-06-19 2022-06-19 Tumor Yuliet, [facility] [id number] [facility] [place] 00:00:00 00:00:00 Board [facility] 2022-06-08 2022-06-14 Inpatient ER ROX, SLE Circulation Crew Leader [id number] [facility] 10:46:00 [facility]:05:[facility] 2022-06-08 2022-06-14 Hospital ER Amalia George [facility] [id number] 10:46:00 14:05:00 Encounter Hussein Winslow [facility] Rox, [facility] 2022-06-14 2022-06-14 Outpatient EL SLE SLE [id number] [facility]H 07:39:48 07:39:48 2022-06-13 2022-06-13 Outpatient EL SLE SLE [id number] [facility] 11:32:48 11:32:48 2022-06-12 2022-06-12 Outpatient EL SLE SLE [id number] [facility] 08:50:39 08:50:39 2022-03-18 2022-03-18 Emergency ER [place], [facility] [id number] 18:23:00 22:48:00 Boy -[id number] Eron garcia Hesham Iam 2022-03-13 2022-03-13 Outside Jodie [facility] [id number] 00:00:00 00:00:00 Orders [facility] 2022-03-09 2022-03-12 In[facility] [id number] STJX 08:49:00 14:02:00 Gabe -[id number] 2022-03-12 2022-03-12 Orders Jodie [facility] [id number] 00:00:00 00:00:00 Only [facility] 2022-03-08 2022-03-09 Emergency ER Carver, [facility] [id number] 22:41:00 09:05:00 Livier -[id number] Eron s Hesham Vitale 2022-03-09 2022-03-09 Admitted [id number]- [place] [id number] 08:49:00 08:49:00 Inpatient [id number] [facility] 50 J oseph -[id number] [facility] Re georgie [id number] [facility] 2022-03-09 2022-03-09 Telephone Little, [facility] [id number] 00:00:00 00:00:00 [facility] 2022-02-25 2022-02-27 Inpatient ER CARTER, DANA SLEH Circulation Crew Leader [id number] SLE 21:25:00 19:09:00 Oncology 2022-02-25 2022-02-27 Hospital ER Noris Cabrera [facility] [id number] 21:25:00 19:09:00 Encounter Catherine Mooney Sung In Medical Carter, [facility] 2022-02-25 2022-02-25 Emergency ER Sharer, [facility] [id number] 10:23:00 19:24:00 Louisa -[id number] Lu s Hesham Vitale 2022-02-15 2022-02-15 Outpatient GC_BVWC_Sou PRIV PRIV [id number] [facility] 00:00:00 00:00:00 phi_Cherise [id number] Medica l 2021-10-11 2021-10-11 Emergency EM Laura, [facility] ER [id number] [facility] 13:35:00 20:55:00 Dallin Sewell [facility] 2021-10-11 2021-10-11 Emergency EM Laura, [facility] [id number] [facility] 13:35:00 20:55:00 Dallin [id number] [facility] Results Test Description Test Time Test Comments Results Result Comments Source Vancomycin Random Level 2022-08-14 16:12:20 Test Item Value Reference Range Interpretation Comme nts VANCO RANDOM (test code = 7639707580) 25.5 ug/mL [facility] [id number] 17:06:44 Test Item Value Reference Range Interpretation Comments LDH (test code = 7637539038) 120 U/L 120-246 Lab Interpretation (test code = Normal 43050-4) [facility] [id number] 21:40:51 Test Item Value Reference Range Interpretation Comments NT-proBNP (test code = 5010 pg/mL <=125 H 6615758053) NING (test code = NING) Biotin has been reported to cause a negative bias, interpret results relative to patient's use of biotin. Lab Interpretation (test Abnormal code = 38134-1) [facility] Hospital[facility]cosylated Hemoglobin (A1C)2022-08-12 20:20:43 Test Item Value Reference Range Interpretation Comments HGB A1C (test code = 5.1 % 4.0-5.7 4548-4) NING (test code = NING) Reference RangesNormal: <5.7%Prediabetes: 5.7 - 6.4%Diabetes: > 6.5% Lab Interpretation (test Normal code = 22222-8) [facility] HospitalThyroid Stimulating [id number] 20:03:36 Test Item Value Reference Range Interpretation Comments TSH (test code = 4.29 See_Comment [Automated message] 5264956034) The system [employer] generated this result transmitted ref erence range: 0.45 - 4 .70 mIU/L. The refe rence range was not u sed to interpret this result as normal/abnor mal. Lab Interpretation (test Normal code = 58218-0) [facility] (NA, K, CL, CO2, Glucose, BUN, Creatinine, CA)2022-08-12 18:34:11 Test Item Value Reference Range Interpretation Comments NA (test code = 141 mmol/L 135-145 7162781266) K (test code = 3.9 mmol/L 3.5-5.0 3371739080) CL (test code = 114 mmol/L 98-108 H 6809661060) CO2 TOTAL (test code = 17 mmol/L 23-31 L 1505526629) AGAP (test code = 10 2-16 2704694395) BUN (test code = 16 mg/dL 7-23 1543818768) GLUCOSE (test code = 81 mg/dL 70-110 0522955992) CREATININE (test code = 1.61 mg/dL 0.50-1.04 H 6947556609) CALCIUM (test code = 7.6 mg/dL 8.6-10.6 L 2010454870) eGFR (test code = 35.8 mL/min/1.73m2 9115208670) NING (test code = NING) Association of [...] tests). Lab Interpretation Abnormal (test code = 38689-2) [facility] HospitalMagnesium [id number] 18:34:11 Test Item Value Reference Range Interpretation Comments MAGNESIUM (test code = 5522571397) 1.4 mg/dL 1.7-2.4 L Lab Interpretation (test code = Abnormal 23551-7) [facility] HospitalPhosphorus [id number] 18:34:11 Test Item Value Reference Range Interpretation Comments PHOSPHORUS (test code = 6876842757) 3.3 mg/dL 2.5-5.0 Lab Interpretation (test code = Normal 39679-3) [facility] HospitalHepatic Function Panel (ALB, T.PRO, BILI T, BU/BC, ALT, AST, ALK, PHOS)2022-08-12 18:34:11 Test Item Value Reference Range Interpretation Comments TOTAL BILI (test code = 3764779236) 0.6 mg/dL 0.1-1.1 BILI UNCON (test code = 2492495209) 0.4 mg/dL 0.1-1.1 BILI CONJ (test code = 8670954487) 0.0 mg/dL 0.0-0.3 T PROTEIN (test code = 2691748489) 6.2 g/dL 6.3-8.2 L ALBUMIN (test code = 3758858452) 2.8 g/dL 3.5-5.0 L ALK PHOS (test code = 6682922995) 92 U/L 34-122 ALTv (test code = 1742-6) 19 U/L 5-35 AST(SGOT) (test code = 3813800662) 23 U/L 13-40 Lab Interpretation (test code = Abnormal 23866-3) [facility] HospitalaPTT2023-06-05 17:53:33 Test Item Value Reference Range Interpretation Comments APTT Patient (test code = 26 See_Comment [ Automated message] 3173-2) The system [employer] generated this result transmitted ref erence range: 26 - 36 Seconds. The re ference range was not u sed to interpret this result as normal/abnor mal. Lab Interpretation (test Normal code = 10338-2) [facility] HospitalProthrombin Time / [id number] 17:53:33 Test Item Value Reference Range Interpretation Comments PROTIME PATIENT (test 12.8 See_Comment H [Auto mated message] code = 5964-2) The system [employer] generated this result transmitted ref erence range: 10.1 - 1 2.6 Seconds. The reference range was not used to int erpret this result as normal/abnormal . INR (test code = 6301-6) 1.1 Nor mal INR <1.1; Warfarin Therap eutic range 2.0 to 3. 0 or 2.5 to 3.5, dep ending upon the indica tions. Lab Interpretation (test Abnormal code = 76538-4) [facility] with Qoenaxrskfrl3451-06-51 17:47:13 Test Item Value Reference Range Interpretation [...] (test code = 53.2 fL 39.0-49.9 H 32249-2) RDW-CV (test code = 16.3 % 12.0-15.5 H 788-0) PLT (test code = 214 See_Comment [Automated 777-3) message] The system which generated this result transmit erna reference range : 166 - 358 10*3/ ?L. The reference range was not u sed to interpret th is result as normal/abnormal . MPV (test code = 9.7 fL 9.5-12.9 13201-0) NRBC/100 WBC (test 0.0 See_Comment [Automat ed code = 5781021112) message] The system which generated this result transmit erna reference range : 0.0 - 10.0 /100 WBCs. The reference range was not used to interpret this result as normal/abnormal . NRBC x10^3 (test code See_Comment [Auto mated = 9802543363) message] The system which generated this result transmit erna reference range : 10*3/?L. The reference range was not used to interpret this result as normal/abnormal . GRAN MAT (NEUT) % 92.1 % (test code = 770-8) IMM GRAN % (test code 0.90 % = 9197929876) LYMPH % (test code = 3.9 % 736-9) MONO % (test code = 2.8 % 5905-5) EOS % (test code = 0.2 % 713-8) BASO % (test code = 0.1 % 706-2) GRAN MAT x10^3(ANC) 12.92 10*3/uL 1.88-7.09 H (test code = 5715257682) IMM GRAN x10^3 (test 0.12 10*3/uL 0.00-0.06 H code = 1626865937) LYMPH x10^3 (test code 0.55 10*3/uL 1.32-3.29 L = 731-0) MONO x10^3 (test code 0.39 10*3/uL 0.33-0.92 = 742-7) EOS x10^3 (test code = 0.03 10*3/uL 0.03-0.39 711-2) BASO x10^3 (test code 0.01-0.07 = 704-7) Lab Interpretation Abnormal (test code = 61259-6) [facility] HospitalPOCT-GLUCOSE [id number] 07:57:35 Test Item Value Reference Range Interpretation Comments POC-GLUCOSE METER 96 mg/dL 70-110 : TESTED A T [facility] 6720 (BEAKER) (test code [facility], = 1538) 54205: Document Design Specialist/Techni skip ID = [id number] for Sidney (contract), Tito onrosa maria [id number] 07:34:33 Test Item Value Reference Range Interpretation Comments PHOSPHORUS (BEAKER) (test code = 3.7 mg/dL 2.3-4.7 604) Document Design Specialist ID - MARCOBASIC METABOLIC [id number] 07:34:32 Test Item Value Reference Range Interpretation [...] not appl icable for dialysis patien ts Document Design Specialist ID - [id number] 07:34:32 Test Item Value Reference Range Interpretation Comments MAGNESIUM (BEAKER) (test code = 1.8 mg/dL 1.6-2.6 627) Document Design Specialist ID - MARCOCBC W/PLT COUNT & AUTO [id number] 06:33:48 Test Item Value Reference Range Interpretation [...] (test code = 2801) MR, BRAIN, WITHOUT [id number] 20:08:00Epilepsy protocol Unlisted Reason for Exam - Click Yes and Enter Reason Below->No [facility] : 1985 Sex: FFINAL REPORT [...] Miguel MDReport Verified Date/Time: 07/26/2022 20:08:29 POCT-GLUCOSE [id number] 16:21:21 Test Item Value Reference Range Interpretation Comments POC-GLUCOSE METER 90 mg/dL 70-110 : TESTED A T [facility] 6720 (BEAKER) (test code [facility], = 1538) 10349: Document Design Specialist/Techni skip ID = [id number] for Raiza (contract)Janet POCT-GLUCOSE [id number] 11:24:11 Test Item Value Reference Range Interpretation Comments POC-GLUCOSE METER 84 mg/dL 70-110 : TESTED A T [facility] 6720 (BEAKER) (test code = [facility], 1538) 64368: Document Design Specialist/Techni skip ID = [id number] for Alva Gonzalez [id number] 06:24:20 Test Item Value Reference Range Interpretation Comments PHOSPHORUS (BEAKER) (test code = 3.1 mg/dL 2.3-4.7 604) Document Design Specialist ID - ADMINBASIC METABOLIC [id number] 06:24:19 Test Item Value Reference Range Interpretation [...] not appl icable for dialysis patien ts Document Design Specialist ID - UJTDJNDSOXEMTV7537-50-55 06:24:19 Test Item Value Reference Range Interpretation Comments MAGNESIUM (BEAKER) (test code = 1.8 mg/dL 1.6-2.6 627) Document Design Specialist ID - ADMINCBC W/PLT COUNT & AUTO [id number] 05:27:14 Test Item Value Reference Range Interpretation [...] PERCENT (BEAKER) (test code = 2801) POCT-GLUCOSE [id number] 18:35:43 Test Item Value Reference Range Interpretation Comments POC-GLUCOSE METER 114 mg/dL 70-110 H : TESTED A T [facility] 6720 (BEAKER) (test code = [facility], 153) 33565: Document Design Specialist/Techni skip ID = [id number] for Joni Shook POCT-GLUCOSE [id number] 16:30:37 Test Item Value Reference Range Interpretation Comments POC-GLUCOSE METER 104 mg/dL 70-110 : TESTED A T [facility] 6720 (BEAKER) (test code = [facility], 1538) 63139: Document Design Specialist/Techni skip ID = [id number] for Ca tallero, Amanda POCT-GLUCOSE [id number] 13:06:15 Test Item Value Reference Range Interpretation Comments POC-GLUCOSE METER 96 mg/dL 70-110 : TESTED A T [facility] 6720 (BEAKER) (test code = [facility] Sadi [facility], 1538) 25947: Document Design Specialist/Techni skip ID = [id number] for Megan odell, Amanda POCT-GLUCOSE [id number] 07:46:57 Test Item Value Reference Range Interpretation Comments POC-GLUCOSE METER 84 mg/dL 70-110 : TESTED A T [facility] 6720 (BEAKER) (test code = [facility], 1538) 75944: Document Design Specialist/Techni skip ID = [id number] for Megan odell, Amanda [id number] 05:56:08 Test Item Value Reference Range Interpretation Comments MAGNESIUM (BEAKER) (test code = 2.4 mg/dL 1.6-2.6 627) Document Design Specialist ID - AYUBFRRYSKNBRUY5397-76-15 05:56:08 Test Item Value Reference Range Interpretation Comments PHOSPHORUS (BEAKER) (test code = 3.2 mg/dL 2.3-4.7 604) Document Design Specialist ID - ADMINCOMPREHENSIVE METABOLIC [id number] 05:56:07 Test Item Value Reference Range Interpretation [...] not appl icable for dialysis patien ts Document Design Specialist ID - ADMINCBC W/PLT COUNT & AUTO [id number] 05:18:06 Test Item Value Reference Range Interpretation [...] PERCENT (BEAKER) (test code = 2801) POCT-GLUCOSE [id number] 21:30:58 Test Item Value Reference Range Interpretation Comments POC-GLUCOSE METER 86 mg/dL 70-110 : TESTED A T [facility] 6720 (BEAKER) (test code = [facility], 153) 61468: Document Design Specialist/Techni skip ID = [id number] for Ayan matson, Suad POCT-GLUCOSE [id number] 16:20:27 Test Item Value Reference Range Interpretation Comments POC-GLUCOSE METER 91 mg/dL 70-110 : TESTED A T [facility] 6720 (BEAKER) (test code = [facility], 153) 28873: Document Design Specialist/Techni skip ID = [id number] for Megan odell, Amanda POCT-GLUCOSE [id number] 12:01:05 Test Item Value Reference Range Interpretation Comments POC-GLUCOSE METER 87 mg/dL 70-110 : TESTED A T [facility] 6720 (BEAKER) (test code = JANIE [facility] [place], 1538) 15194: Document Design Specialist/Techni skip ID = [id number] for Amanda Crowder POCT-GLUCOSE [id number] 08:41:45 Test Item Value Reference Range Interpretation Comments POC-GLUCOSE METER 90 mg/dL 70-110 : [facility] ([facility] (test code = JANIE [facility], 1538) 81012: Document Design Specialist/Techni skip ID = [id number] for Amanda Crowder [id number] 07:22:20 Test Item Value Reference Range Interpretation Comments MAGNESIUM (BEAKER) (test code = 1.4 mg/dL 1.6-2.6 L 627) [id number] 07:22:20 Test Item Value Reference Range Interpretation Comments PHOSPHORUS (BEAKER) (test code = 3.5 mg/dL 2.3-4.7 604) BASIC METABOLIC [id number] 07:22:19 Test Item Value Reference Range Interpretation [...] patien ts CBC W/PLT COUNT & AUTO [id number] 06:58:59 Test Item Value Reference Range Interpretation [...] PERCENT (BEAKER) (test code = 2801) POCT-GLUCOSE [id number] 23:49:34 Test Item Value Reference Range Interpretation Comments POC-GLUCOSE METER 96 mg/dL 70-110 : TESTED A T [facility] 6720 (BEAKER) (test code = [facility], 1538) 38994: Document Design Specialist/Techni skip ID = [id number] for Tere Davis POCT-GLUCOSE [id number] 17:33:01 Test Item Value Reference Range Interpretation Comments POC-GLUCOSE METER 120 mg/dL 70-110 H : TESTED A T [facility] 6720 (BEAKER) (test code = [facility], 1538) 13477: Document Design Specialist/Techni skip ID = [id number] for Garfield radhahenriettaNichole POCT-GLUCOSE [id number] 11:09:16 Test Item Value Reference Range Interpretation Comments POC-GLUCOSE METER 107 mg/dL 70-110 : TESTED A T [facility] 6720 (BEAKER) (test code = [facility], 1538) 93414: Document Design Specialist/Techni skip ID = [id number] for Aquilino Hairlynn BASIC METABOLIC [id number] 07:14:49 Test Item Value Reference Range Interpretation [...] not appl icable for dialysis patien ts Document Design Specialist ID - [id number] 07:11:55 Test Item Value Reference Range Interpretation Comments MAGNESIUM (BEAKER) (test code = 1.6 mg/dL 1.6-2.6 627) Document Design Specialist ID - [id number] 07:11:55 Test Item Value Reference Range Interpretation Comments PHOSPHORUS (BEAKER) (test code = 3.8 mg/dL 2.3-4.7 604) Document Design Specialist ID - BSCBC W/PLT COUNT & AUTO [id number] 06:07:30 Test Item Value Reference Range Interpretation [...] (BEAKER) (test code = 2801) BASIC METABOLIC [id number] 23:20:26 Test Item Value Reference Range Interpretation [...] 8.4-10.2 (test code = 697) EGFR (ALEXANDER) 6 Interpretatio n of eGFR (test code [...] not appl icable for dialysis patien ts Document Design Specialist ID - BSPOCT-GLUCOSE [id number] 19:11:02 Test Item Value Reference Range Interpretation Comments POC-GLUCOSE METER 87 mg/dL 70-110 : TESTED A T [facility] 6720 (ALEXANDER) (test code = JANIE [facility], 1538) 44420: Document Design Specialist/Techni skip ID = [id number] for Monica quinterosNichole, NEPHROSTOMY, PERC, EXTERNAL [id number] 17:55:00Reason for exam:- >b/l [facility] : 1985 Sex: FFINAL REPORT [...] three months. PROCEDURE SUMMARY- Target organ: Bilateral [place] kidneys- Image-guided placement of genitourinary catheter(s)- Additional [...] Contrast injection was performed.Genitourinary catheter placed: 10.2 Iranian multipurpose drainage catheter Findings: Pigtail positioned inthe renal pelvisExternal catheter securement: Non-absorbable suture Left genitourinary catheter placementLocal anesthesia was administered. A needle was advanced into the renal collecting system under ultrasound and fluoroscopy guidance. A wire was advanced, the tract was serially dilated and a nephrostomy tube was placed. Contrast injection was performed.Genitourinary catheter placed: 10.2 Iranian multipurpose drainage catheter Findings: Pigtail positioned in [...] MDReport Verified Date/Time: 07/22/2022 17:55:16 Reading Location: [address] Neuro Reading Room HCG, QUANTITATIVE, [id number] 16:00:13 Test Item Value Reference Range Interpretation Comments GONADOTROPIN, CHORIONIC (HCG) QUANT < mIU/mL 0-10 (BEAKER) (test code = 649) Non- Females: <10 mIU/mL Females: Gestation Age Reference Range(mIU/mL) 0.2-1 Week 5-50 1-2 Weeks 50-500 2-3 Weeks 100-5,000 3-4 Weeks 500-10,000 4-5 Weeks 1,000-50,000 5-6 Weeks 10,000-100,000 6-8 Weeks 15,000- 200,000 2-3 Months 10,000-100,000 Document Design Specialist ID - [facility] 2022-07-22 12:58:04 Test Item Value [...] not appl icable for dialysis patien ts Document Design Specialist ID - ADMINPOCT-GLUCOSE [id number] 12:28:22 Test Item Value Reference Range Interpretation Comments POC-GLUCOSE METER 92 mg/dL 70-110 : TESTED A T [facility] 6720 (Ecomsual) (test code = [facility], 153) 88303: Document Design Specialist/Techni skip ID = [id number] for Monica Nichole quinteros POCT-GLUCOSE [id number] 07:55:05 Test Item Value Reference Range Interpretation Comments POC-GLUCOSE METER 97 mg/dL 70-110 : TESTED A T [facility] 6720 (BEAKER) (test code = [facility], 1538) 28097: Document Design Specialist/Techni skip ID = [id number] for Monica ramirezy, Nichole POCT-GLUCOSE [id number] 06:39:17 Test Item Value Reference Range Interpretation Comments POC-GLUCOSE METER 90 mg/dL 70-110 : TESTED A T [facility] 6720 (BEAKER) (test code = [facility], 1538) 34911: Document Design Specialist/Techni sikp ID = [id number] for KARON WATSON CT, [id number] 05:29:00Unlisted Reason for Exam - Click Yes and Enter Reason Below->YesUnlisted Reason for Exam->ESRD; Hx Cervical CarcinomaProtocol Please Specify:->Standard ProtocolWill this procedure require oralcontrast?->No [facility] CENTERName: YULIYA PHILIP : 1985 [...] MDReport Verified Date/Time: 07/22/2022 05:29:38 C METABOLIC [id number] 04:02:59 Test Item Value Reference Range Interpretation [...] not appl icable for dialysis patien ts Document Design Specialist ID - CLAUDIA [id number] 03:38:17 Test Item Value Reference Range Interpretation Comments PHOSPHORUS (BEAKER) (test code = 4.1 mg/dL 2.3-4.7 604) Document Design Specialist ID - CLAUDIA [id number] 03:38:16 Test Item Value Reference Range Interpretation Comments MAGNESIUM (BEAKER) (test code = 1.7 mg/dL 1.6-2.6 627) Document Design Specialist ID - CLAUDIA [id number] 03:33:49 Test Item Value Reference Range Interpretation Comments PARTIAL THROMBOPLASTIN TIME 33.4 seconds 22.5-36.0 (BEAKER) (test code = 760) PROTHROMBIN TIME/[id number] 03:33:07 Test Item Value Reference Range Interpretation [...] mechanical heart valves.CBC W/PLT COUNT & AUTO [id number] 03:23:16 Test Item Value Reference Range Interpretation [...] = 2801) RAD, CHEST, 1 VIEW, NON [id number] 23:55:00Reason for exam:->PULMONARY EDEMAShould this be performed at the bedside?->Yes [facility] : 1985 Sex: FFINAL REPORT [...] to resolution is advised. Signed: Daron Casarez MDReport Verified Date/Time: 07/21/2022 23:55:02 POCT-GLUCOSE [id number] 22:09:32 Test Item Value Reference Range Interpretation Comments POC-GLUCOSE METER 90 mg/dL 70-110 : TESTED A T [facility] 6720 (BEAKER) (test code = JANIE [place], 1538) [address]: Document Design Specialist/Techni skip ID = [id number] for KARON WATSON HEMOGLOBIN AND [id number] 22:02:53 Test Item Value Reference Range Interpretation Comments HEMOGLOBIN (BEAKER) (test code = 7.9 GM/DL 11.2-15.7 L 410) HEMATOCRIT (BEAKER) (test code = 22.4 % 34.1-44.9 L 411) Document Design Specialist ID - [id number] METABOLIC [id number] 20:36:21 Test Item Value Reference Range Interpretation [...] not appl icable for dialysis patien ts Document Design Specialist ID - ADMINHEPATITIS B SURFACE [id number] 19:47:38 Test Item Value Reference Range Interpretation Comments HEPATITIS B SURFACE ANTIGEN (2) Nonreactive Nonreactive (BEAKER) (test code = 2585) Specimen is considered negative for HBsAg.HIGH SENSITIVITY TROPONIN [id number] 18:50:26 Test Item Value Reference Range Interpretation Comments HIGH SENSITIVITY TROPONIN I (test 181 pg/ml <=17 H code = 5455667) Document Design Specialist ID - CHRISTIANO BThe PRODUCE LABORER STAT High Sensitivity Troponin-I results should be used in conjunction with other diagnostic information such as ECG, clinical observations and information, and patient symptoms to aid in the diagnosis of TX.BASIC METABOLIC [id number] 18:47:16 Test Item Value Reference Range Interpretation [...] high >=90 G2 Mildly decreased 60-89 G3a Mild ly to moderately 45-5 9 G3b Moderately to [...] not appl icable for dialysis patien ts Document Design Specialist ID - CHRISTIANO BU/S, RENAL, [id number] 18:43:00Reason for exam:- >Bilateral Renal HydronephrosisShould this be performed at the bedside?->YesIMEL[facility] : 1985 Sex: FFINAL REPORT Ultrasound of the Kidneys Clinical History: Bilateral Renal Hydronephrosis COMPARISON: CT 06/08/2022 at 6:34 PM from [facility] per Thelma IV Discussion: Grayscale and color Doppler ultrasound [...] veins demonstrate patency. Bladder: Bladder is decompressed. Boxing Inspector reported a patient had a recent Bearden [...] Casarez MDReport Verified Date/Time: 07/21/2022 18:43:10 POCT-GLUCOSE [id number] 17:56:23 Test Item Value Reference Range Interpretation Comments POC-GLUCOSE METER 91 mg/dL 70-110 : TESTED A T [facility] 6720 (DEVIKAELIZ) (test code = JANIE [place], 1538) [address]: Document Design Specialist/Techni skip ID = [id number] for Louisa Castellon RAD, CHEST, 1 VIEW, NON [id number] 15:01:00Reason for exam:->CVC \\T\\ HD catheterShould this be performed at the bedside?->Yes [facility] : 1985 Sex: FFINAL REPORT Chest, one view History: Insertion of central venous catheter Comparison: 06/09/2022 Findings:Interval development of mild central airspace disease, likely pulmonaryedema. Normal size heart. No pleural effusion or pneumothorax. Satisfactory positions of bilateral internal jugular central venous catheters. Signed: Arturo Dumont MDReport Verified Date/Time: 023 15:01:34 Reading Location: [address] Ortho Consult Reading Room BASIC METABOLIC [id number] 12:30:54 Test Item Value Reference Range Interpretation [...] not appl icable for dialysis patien ts Document Design Specialist ID - CHRISTIANO BOperator ID - CHRISTIANO [id number] 12:22:57 Test Item Value Reference Range Interpretation Comments MAGNESIUM (BEAKER) (test code = 2.3 mg/dL 1.6-2.6 627) Document Design Specialist ID - CHRISTIANO [id number] 12:22:57 Test Item Value Reference Range Interpretation Comments PHOSPHORUS (BEAKER) (test code = 6.9 mg/dL 2.3-4.7 H 604) Document Design Specialist ID - CHRISTIANO FIERROEPATIC FUNCTION [id number] 12:22:57 Test Item Value Reference Range Interpretation [...] (test code = 8 U/L 6-55 347) Document Design Specialist ID - CHRISTIANO FIERROIGH SENSITIVITY TROPONIN [id number] 12:21:15 Test Item Value Reference Range Interpretation Comments HIGH SENSITIVITY TROPONIN I (test 58 pg/ml <=17 H code = 4474331) Document Design Specialist ID - CHRISTIANO BThe PRODUCE LABORER STAT High Sensitivity Troponin-I results should be used in conjunction with other diagnostic information such as ECG, clinical observations and information, and patient symptoms to aid in the diagnosis of TX.CBC W/PLT COUNT & AUTO [id number] 12:14:08 Test Item Value Reference Range Interpretation [...] % 0.00-1.00 PERCENT (BEAKER) (test code = 2809) [id number] 12:06:02 Test Item Value Reference Range Interpretation Comments FIBRINOGEN LEVEL (BEAKER) (test 459 mg/dl 225-434 H code = 658) PROTHROMBIN TIME/[id number] 12:05:45 Test Item Value Reference Range Interpretation Comments PROTIME (BEAKER) (test code = 16.0 seconds 11.9-14.2 H 759) INR (BEAKER) (test code = 370) 1.32 <=5.90 RECOMMENDED COUMADIN/WARFARIN INR THERAPY RANGESSTANDARD DOSE: 2.0 - 3.0 Includes: PROPHYLAXIS for venous thrombosis, systemic embolization; TREATMENT for venous thrombosis and/or pulmonary embolus.HIGH RISK: Target INR is 2.5-3.5 for patients with mechanical heart valves.LACTIC ACID, [id number] 12:04:00 Test Item Value Reference Range Interpretation Comments LACTATE BLOOD VENOUS (2) (ALEXANDER) 0.53 mmol/L 0.50-2.00 (test code = 2872) Document Design Specialist ID - ADMINPOCT-GLUCOSE [id number] 12:02:56 Test Item Value Reference Range Interpretation Comments POC-GLUCOSE METER 91 mg/dL 70-110 : TESTED A T [facility] 6720 (ALEXANDER) (test code = JANIE Avitia [facility], 1538) [address]: Document Design Specialist/Techni skip ID = [id number] for Louisa Castellon POCT-GLUCOSE [id number] 11:16:07 Test Item Value Reference Range Interpretation Comments POC-GLUCOSE METER 50 mg/dL 70-110 L : TESTED A T [facility] 6720 (ALEXANDER) (test code = [facility], 1538) [address]: Document Design Specialist/Techni skip ID = [id number] for Louisa Castellon Drug Test, General Toxicology, [id number] 20:51:37 Test Item Value Reference Interpretation Comments Range Acetone(Quest) None Detected (test code = 3053) Methanol(Quest) None Detected (test code = 3054) Drug Test,Genrl see note The followin g compounds were Tox,U (test detected: Cotin ine (Nicotine code = 1274148) Metabolite) Acetaminophen Gabapentin MEGx (Lidocaine Metabolite) Caf feine Methamphetamine Lidocaine Benzoylecgonine (Cocaine Metabolite) Mela kyleigh Diphenhydramine Midazolam Cyclobenzaprine For a list of compounds and l imits of detection go to:http://educa tion.[employer].com/faq /VLA051 ISOPROPANOL None Detected (test code = 9479128) ETHANOL (test None Detected Volatile Li samy of code = 5749333) Detection: 5 mg/dL This test was developed a nd its analytical performancechar [employer] have been deter mined by [employer] [place], [place]. It hasnot been dany ared or approved by the U.S. Food and DrugAdministrat ion. This assay has been validated pursuantto the CLIA regulations and is used for clinicalpurpose s. NING (test code Performing Lab = NING) [address] [employer] [facility] [place] [address] [facility] [place], [place] Shawn Drake MD, PhD [facility] HospitalBLOOD [id number] 16:00:20 Test Item Value Reference Range Interpretation Comments CULTURE (BEAKER) (test No growth in 5 days code = 1095) The specimen volume collected for this blood culture was below the optimum (10 mL per bottle or 20 mL total). Use of lower volumes may adversely affect recovery and/or detection times of some organisms.BLOOD [id number] 16:00:20 Test Item Value Reference Range Interpretation Comments CULTURE (BEAKER) (test No growth in 5 days code = 1095) BASIC METABOLIC [id number] 03:45:36 Test Item Value Reference Range Interpretation [...] not appl icable for dialysis patien ts Document Design Specialist ID - BSCBC (HEMOGRAM ONLY)2022-06-14 03:30:35 Test [...] (BEAKER) (test code = 413) BASIC METABOLIC [id number] 04:27:45 Test Item Value Reference Range Interpretation [...] not appl icable for dialysis patien ts Document Design Specialist ID - MMCBC (HEMOGRAM ONLY)2022-06-13 04:07:18 Test [...] 0-0 (BEAKER) (test code = 413) PROTHROMBIN TIME/[id number] 10:03:21 Test Item Value Reference Range Interpretation Comments PROTIME (BEAKER) (test code = 15.4 seconds 11.9-14.2 H 759) INR (BEAKER) (test code = 370) 1.30 <=5.90 RECOMMENDED COUMADIN/WARFARIN INR THERAPY RANGESSTANDARD DOSE: 2.0 - 3.0 Includes: PROPHYLAXIS for venous thrombosis, systemic embolization; TREATMENT for venous thrombosis and/or pulmonary embolus.HIGH RISK: Target INR is 2.5-3.5 for patients with mechanical heart valves.ANG, EMBOLIZATION, EXTENSIVE - [id number] 09:57:00Reason for exam:->Embolization of bleeding cervical massIMELDA [facility]Name: [facility]IP : 1985 Sex: FFINAL REPORT [...] MDReport Verified Date/Time: 06/12/2022 09:57:59 Reading Location: [facility] Diagnostic Imaging Reading Room - SLSWV F1 1129 CBC W/PLT COUNT & AUTO [id number] 09:56:52 Test Item Value Reference Range Interpretation [...] GRANULOCYTES-RELATIVE PERCENT (BEAKER) (test code = 2801) [id number] 09:25:56 Test Item Value Reference Range Interpretation Comments PHOSPHORUS (BEAKER) (test code = 3.4 mg/dL 2.3-4.7 604) Document Design Specialist ID - CLAUDIA WHEPATIC FUNCTION [id number] 09:25:56 Test Item Value Reference Range Interpretation [...] code = 117 U/L 6-55 H 347) Document Design Specialist ID Gonzalez TAYLOR WBASIC METABOLIC [id number] 09:25:55 Test Item Value Reference Range Interpretation [...] not appl icable for dialysis patien ts Document Design Specialist ID - CLAUDIA [id number] 09:25:55 Test Item Value Reference Range Interpretation Comments MAGNESIUM (BEAKER) (test code = 2.0 mg/dL 1.6-2.6 627) Document Design Specialist ID - CLAUDIA WPrepare Leuko-Red [id number] 23:54:00 Test Item Value Reference Range Interpretation Comments Unit ABO (test code = 7202729) A Neg UNIT NUMBER (test code = [id number] 934-0) Status (test code = 1540302) [place]_TIMEINCHART Blood Bank Product (test code PLATELETS = 2263) PRODUCT CODE (test code = W3027I29 933-2) [facility] HospitalPrep[facility] Leuko-Red [id number] 23:54:00 Test Item Value Reference Range Interpretation Comments Unit ABO (test code = 6365161) A Neg UNIT NUMBER (test code = [id number] 934-0) Status (test code = 2726777) [place]_TIMEINCHART Blood Bank Product (test code PLATELETS = 2263) PRODUCT CODE (test code = X6556I56 933-2) [facility] HospitalBASIC METABOLIC [id number] 13:05:32 Test Item Value Reference Range Interpretation [...] not appl icable for dialysis patien ts Document Design Specialist ID - MARCOCBC (HEMOGRAM ONLY)2022-06-11 12:42:48 Test [...] WBC 0-0 (test code = 413) PROTHROMBIN TIME/[id number] 12:39:37 Test Item Value Reference Range Interpretation Comments PROTIME (BEAKER) (test code = 15.6 seconds 11.9-14.2 H 759) INR (BEAKER) (test code = 370) 1.32 <=5.90 RECOMMENDED COUMADIN/WARFARIN INR THERAPY RANGESSTANDARD DOSE: 2.0 - 3.0 Includes: PROPHYLAXIS for venous thrombosis, systemic embolization; TREATMENT for venous thrombosis and/or pulmonary embolus.HIGH RISK: Target INR is 2.5-3.5 for patients with mechanical heart valves.CALCIUM, [id number] 12:30:04 Test Item Value Reference Range Interpretation Comments CALCIUM IONIZED (BEAKER) (test 1.08 mmol/L 1.12-1.27 L code = 698) PH, BLOOD (BEAKER) (test code = 7.44 1810) POC-Glucose [id number] 12:05:07 Test Item Value Reference Range Interpretation Comments POC-Glucose Meter (test 85 mg/dL 70-110 : TE STED AT [facility] code = 1538) [address] [place] [address], [facility] 30: Document Design Specialist/Techni skip ID = [id number] for LLUVIA GROVES Lab Interpretation (test Normal code = 97940-5) [facility] HospitalPOC-Glucose [id number] 12:05:07 Test Item Value Reference Range Interpretation Comments POC-Glucose Meter (test 85 mg/dL 70-110 : TE STED AT [facility] code = 1538) [address] [place] [address], 770 30: Document Design Specialist/Techni skip ID = [id number] for LLUVIA GROVES Lab Interpretation (test Normal code = 66650-7) [facility]-GLUCOSE [id number] 12:05:07 Test Item Value Reference Range Interpretation Comments POC-GLUCOSE METER 85 mg/dL 70-110 : TESTED A T [facility] 6720 (BEAKER) (test code = JANIE Av[place], 1538) [address]: Document Design Specialist/Techni skip ID = [id number] for LLUVIA DANIEL EBV VIRAL [id number] 11:49:33 Test Item Value Reference Range Interpretation [...] th is result as normal/abnormal . POCT-GLUCOSE [id number] 06:43:06 Test Item Value Reference Range Interpretation Comments POC-GLUCOSE METER 82 mg/dL 70-110 : [facility] ([facility]ER[facility] (test code = JANIE Avitia [facility], 1538) [address]: Document Design Specialist/Techni skip ID = [id number] for Griselda Mayorga CALCIUM, [id number] 05:38:13 Test Item Value Reference Range Interpretation [...] CELLS (BEAKER) (test code = 413) PROTHROMBIN TIME/[id number] 05:28:51 Test Item Value Reference Range Interpretation Comments PROTIME (BEAKER) (test code = 16.1 seconds 11.9-14.2 H 759) INR (BEAKER) (test code = 370) 1.38 <=5.90 RECOMMENDED COUMADIN/WARFARIN INR THERAPY RANGESSTANDARD DOSE: 2.0 - 3.0 Includes: PROPHYLAXIS for venous thrombosis, systemic embolization; TREATMENT for venous thrombosis and/or pulmonary embolus.HIGH RISK: Target INR is 2.5-3.5 for patients with mechanical heart valves.[id number] 03:39:10 Test Item Value Reference Range Interpretation Comments PHOSPHORUS (BEAKER) (test code = 2.8 mg/dL 2.3-4.7 604) Document Design Specialist ID - BSHEPATIC FUNCTION [id number] 03:39:09 Test Item Value Reference Range Interpretation [...] code = 116 U/L 6-55 H 347) Document Design Specialist ID - HSHQTFJHTGC1643-45-63 03:39:09 Test Item Value Reference Range Interpretation Comments MAGNESIUM (BEAKER) (test code = 1.6 mg/dL 1.6-2.6 627) Document Design Specialist ID - BSPOCT-GLUCOSE [id number] 00:47:31 Test Item Value Reference Range Interpretation Comments POC-GLUCOSE METER 94 mg/dL 70-110 : TESTED A T [facility] 6720 (BEAKER) (test code = JANIE [place], 1538) [address]: Document Design Specialist/Techni skip ID = [id number] for Pee Valladares Prepare Leuko-Red [id number] 23:54:00 Test Item Value Reference Range Interpretation Comments CROSSMATCH (test code = 2264) COMPATIBLE Unit ABO (test code = A Pos 5576337) UNIT NUMBER (test code = [id number] 934-0) Status (test code = 1700772) [place]IN[facility] Blood Bank Product (test code RED BLOOD CELLS = 2263) PRODUCT CODE (test code = Q6060Q64 933-2) [facility] HospitalPrepare Leuko-Red [id number] 23:54:00 Test Item Value Reference Range Interpretation Comments CROSSMATCH (test code = 2264) COMPATIBLE Unit ABO (test code = A Pos 4904613) UNIT NUMBER (test code = [id number] 934-0) Status (test code = 6776098) TX_TIMEINCHART Blood Bank Product (test code RED BLOOD CELLS = 2263) PRODUCT CODE (test code = R2959H30 933-2) [facility] HospitalPROTHROMBIN TIME/[id number] 22:37:14 Test Item Value Reference Range Interpretation [...] mechanical heart valves.CBC W/PLT COUNT & AUTO [id number] 22:25:34 Test Item Value Reference Range Interpretation [...] PERCENT (BEAKER) (test code = 2801) CALCIUM, [id number] 22:25:05 Test Item Value Reference Range Interpretation Comments CALCIUM IONIZED (BEAKER) (test 1.07 mmol/L 1.12-1.27 L code = 698) PH, BLOOD (BEAKER) (test code = 7.48 1810) [id number] 17:57:12 Test Item Value Reference Range Interpretation Comments FIBRINOGEN LEVEL (BEAKER) (test 313 mg/dl 225-434 code = 658) PROTHROMBIN TIME/[id number] 17:44:31 Test Item Value Reference Range Interpretation [...] WBC 0-0 (test code = 413) POCT-GLUCOSE [id number] 17:30:09 Test Item Value Reference Range Interpretation Comments POC-GLUCOSE METER 109 mg/dL 70-110 : TESTED A T [facility] 6720 (BEAKER) (test code = JANIE Av[place], 1538) [address]: Document Design Specialist/Techni skip ID = [id number] for Naina Austin CALCIUM, [id number] 17:28:59 Test Item Value Reference Range Interpretation Comments CALCIUM IONIZED (BEAKER) (test 1.07 mmol/L 1.12-1.27 L code = 698) PH, BLOOD (BEAKER) (test code = 7.48 2192) ANTI-NUCLEAR ANTIBODY (HAYDEN)2022-06-10 14:58:10 Test Item Value Reference Range Interpretation Comments ANTI-NUCLEAR ANTIBODY (HAYDEN) (BEAKER) Negative Negative (test code = 418) Test performed by IFA method.Test performed by IFA method.HEPATITIS C PCR, [id number] 14:01:32 Test Item Value Reference Range Interpretation Comments HCV RESULT COMPONENT HCV RNA not detected HCV RNA not detected (BEAKER) (test code = 2699) HEPATITIS B PCR, [id number] 13:33:52 Test Item Value Reference Range Interpretation Comments HBV RESULT COMPONENT HBV DNA not detected HBV DNA not detected (BEAKER) (test code = 2701) [id number] 12:37:58 Test Item Value Reference Range Interpretation Comments FIBRINOGEN LEVEL (BEAKER) (test 280 mg/dl 225-434 code = 658) PROTHROMBIN TIME/[id number] 12:37:40 Test Item Value Reference Range Interpretation Comments PROTIME (BEAKER) (test code = 17.8 seconds 11.9-14.2 H 759) INR (BEAKER) (test code = 370) 1.57 <=5.90 RECOMMENDED COUMADIN/WARFARIN INR THERAPY RANGESSTANDARD DOSE: 2.0 - 3.0 Includes: PROPHYLAXIS for venous thrombosis, systemic embolization; TREATMENT for venous thrombosis and/or pulmonary embolus.HIGH RISK: Target INR is 2.5-3.5 for patients with mechanical heart valves.CMV PCR, [id number] 12:25:04 Test Item Value Reference Range Interpretation [...] WBC 0-0 (test code = 413) CALCIUM, [id number] 12:09:13 Test Item Value Reference Range Interpretation Comments CALCIUM IONIZED (BEAKER) (test 1.05 mmol/L 1.12-1.27 L code = 698) PH, BLOOD (BEAKER) (test code = 7.46 1810) POCT-GLUCOSE [id number] 11:23:12 Test Item Value Reference Range Interpretation Comments POC-GLUCOSE METER 92 mg/dL 70-110 : TESTED A T [facility] 6720 (BEAKER) (test code = JANIE [place], 1538) [address]: Document Design Specialist/Techni skip ID = [id number] for ADRIEN C (V), ANNMARIE EBV ANTIBODY, [id number] 10:34:21 Test Item Value Reference Range Interpretation Comments ANDREW SUAREZ VIRAL CAPSID Negative Negative, Equivocal ANTIGEN IGM (BEAKER) (test code = 3418) Andrew Suarez Viral Capsid Antigen IgM Result Interpretation: </= 0.8 Al Negative 0.9-1.0 Al Equivocal >/= 1.1 Al PositiveVANCOMYCIN LEVEL, TROUGH 2022-06-10 09:41:44 Test Item Value Reference Range Interpretation Comments VANCOMYCIN TROUGH (BEAKER) (test 16.1 ug/mL 10.0-20.0 code = 522) Document Design Specialist ID - [id number] 06:41:29 Test Item Value Reference Range Interpretation Comments FIBRINOGEN LEVEL (BEAKER) (test 260 mg/dl 225-434 code = 658) PROTHROMBIN TIME/[id number] 06:41:06 Test Item Value Reference Range Interpretation [...] WBC 0-0 (test code = 413) CALCIUM, [id number] 06:04:52 Test Item Value Reference Range Interpretation Comments CALCIUM IONIZED (BEAKER) (test 1.12 mmol/L 1.12-1.27 code = 698) PH, BLOOD (BEAKER) (test code = 7.48 1810) POCT-GLUCOSE [id number] 05:43:21 Test Item Value Reference Range Interpretation Comments POC-GLUCOSE METER 91 mg/dL 70-110 : TESTED A T [facility] 6720 (BEAKER) (test code = JANIE [place], 1538) [address]: Document Design Specialist/Techni skip ID = [id number] for MSIB I, MNCEDISI BASIC METABOLIC [id number] 03:27:46 Test Item Value Reference Range Interpretation [...] high >=90 G2 Mildly decreased 60-89 G3a Mild ly to moderately 45-5 9 G3b Moderately to [...] not appl icable for dialysis patien ts Document Design Specialist ID - Iam slightly ictericHEPATIC FUNCTION [id number] 03:26:54 Test Item Value Reference Range Interpretation [...] code = 153 U/L 6-55 H 347) Document Design Specialist ID - SUOSpecimen slightly [id number] 03:26:53 Test Item Value Reference Range Interpretation Comments MAGNESIUM (BEAKER) (test code = 1.6 mg/dL 1.6-2.6 627) Document Design Specialist ID - NLNVDIBSBCEZCEQ8065-82-02 03:26:53 Test Item Value Reference Range Interpretation Comments PHOSPHORUS (BEAKER) (test code = 2.0 mg/dL 2.3-4.7 L 604) Document Design Specialist ID - SUOCALCIUM, [id number] 01:25:13 Test Item Value Reference Range Interpretation Comments CALCIUM IONIZED (BEAKER) (test 1.04 mmol/L 1.12-1.27 L code = 698) PH, BLOOD (BEAKER) (test code = 7.48 1810) [id number] 01:24:42 Test Item Value Reference Range Interpretation Comments FIBRINOGEN LEVEL (BEAKER) (test 257 mg/dl 225-434 code = 658) PROTHROMBIN [id number] 01:23:57 Test Item Value Reference Range Interpretation [...] CELLS (BEAKER) (test code = 413) Prepare [id number] 23:54:00 Test Item Value Reference Range Interpretation Comments Unit ABO (test code = A Pos 8614819) UNIT NUMBER (test code = [id number] 934-0) Status (test code = 4898163) [place]_TIMEINCHART Blood Bank Product (test code CRYOPRECIPITATE = 2263) PRODUCT CODE (test code = V6330W84 933-2) [facility] [id number] 23:54:00 Test Item Value Reference Range Interpretation Comments Unit ABO (test code = 7877013) A Neg UNIT NUMBER (test code = [id number] 934-0) Status (test code = 7174097) TX_TIMEINCHART Blood Bank Product (test code FFP = 2263) PRODUCT CODE (test code = I2755J67 933-2) [facility] Hospital[facility] [id number] 23:54:00 Test Item Value Reference Range Interpretation Comments Unit ABO (test code = A Pos 7812018) UNIT NUMBER (test code = [id number] 934-0) Status (test code = 3056317) TX_TIMEINCHART Blood Bank Product (test code CRYOPRECIPITATE = 2263) PRODUCT CODE (test code = K3444F62 933-2) [facility] Hospital[facility] [id number] 23:54:00 Test Item Value Reference Range Interpretation Comments Unit ABO (test code = 3201054) A Neg UNIT NUMBER (test code = [id number] 934-0) Status (test code = 0307254) TX_TIMEINCHART Blood Bank Product (test code FFP = 2263) PRODUCT CODE (test code = D4452E55 933-2) [facility] HospitalPOCT-GLUCOSE [id number] 23:42:59 Test Item Value Reference Range Interpretation Comments POC-GLUCOSE METER 91 mg/dL 70-110 : TESTED A T [facility] 6720 (BEAKER) (test code = [place]IE [place], 1538) [address]: Document Design Specialist/Techni skip ID = [id number] for MSIB IMC CALCIUM, [id number] 18:10:25 Test Item Value Reference Range Interpretation Comments CALCIUM IONIZED (BEAKER) (test 1.11 mmol/L 1.12-1.27 L code = 698) PH, BLOOD (BEAKER) (test code = 7.48 1810) [id number] 17:48:32 Test Item Value Reference Range Interpretation Comments FIBRINOGEN LEVEL (BEAKER) (test 179 mg/dl 225-434 L code = 658) PROTHROMBIN TIME/[id number] 17:48:12 Test Item Value Reference Range Interpretation [...] WBC 0-0 (test code = 413) POCT-GLUCOSE [id number] 17:29:37 Test Item Value Reference Range Interpretation Comments POC-GLUCOSE METER 95 mg/dL 70-110 : TESTED A T [facility] 6720 (BEAKER) (test code = JANIE [facility], 1538) [address]: Document Design Specialist/Techni skip ID = [id number] for Joyce Hilario [id number] 13:31:18 Test Item Value Reference Range Interpretation Comments PROCALCITONIN (BEAKER) (test code 18.38 ng/mL <0.05 HH = 3036) SEPSIS RISK (ng/mL)Low: 0.05-0.50Intermediate: 0.51-2.00High: >=2.01 [id number] 12:31:16 Test Item Value Reference Range Interpretation Comments FIBRINOGEN LEVEL (BEAKER) (test 178 mg/dl 225-434 L code = 658) POCT-GLUCOSE [id number] 12:29:44 Test Item Value Reference Range Interpretation Comments POC-GLUCOSE METER 116 mg/dL 70-110 H : TESTED A T [facility] 6720 (BEAKER) (test code [facility], = 1538) [address]: Document Design Specialist/Techni skip ID = [id number] for Amanda Giles h CALCIUM, [id number] 12:27:55 Test Item Value Reference Range Interpretation Comments CALCIUM IONIZED (BEAKER) (test 1.10 mmol/L 1.12-1.27 L code = 698) PH, BLOOD (BEAKER) (test code = 7.48 1810) PROTHROMBIN TIME/[id number] 12:25:56 Test Item Value Reference Range Interpretation [...] 0-0 (test code = 413) BASIC METABOLIC [id number] 09:00:33 Test Item Value Reference Range Interpretation [...] not appl icable for dialysis patien ts Document Design Specialist ID - Iam slightly asbrzdvYJZSKAHHB9883-75-49 08:56:11 Test Item Value Reference Range Interpretation Comments MAGNESIUM (BEAKER) (test code = 2.0 mg/dL 1.6-2.6 627) Document Design Specialist ID - MARCOLactic Acid, Ncrqnobe3415-92-84 08:52:09 Test Item Value Reference Range Interpretation Comments Lactate, Art (test code 0.9 mmol/L 0.5-2.2 = 2874) NING (test code = NING) Document Design Specialist ID - Bayronn slightly icteric Lab Interpretation Normal (test code = 22275-4) [facility], [id number] 08:52:09 Test Item Value Reference Range Interpretation Comments Lactate, Art (test code 0.9 mmol/L 0.5-2.2 = 2874) NING (test code = INNG) Document Design Specialist ID - MARCOSpecimen slightly icteric Lab Interpretation Normal (test code = 54133-4) [facility] Hospital[facility], [id number] 08:52:09 Test Item Value Reference Range Interpretation Comments LACTATE BLOOD ARTERIAL (2) 0.9 mmol/L 0.5-2.2 (BEAKER) (test code = 2874) Document Design Specialist ID - SUOSpecvernonn slightly xpzzejqJXWGORALKT2144-12-35 08:37:49 Test Item Value Reference Range Interpretation Comments FIBRINOGEN LEVEL (BEAKER) (test 174 mg/dl 225-434 L code = 658) PROTHROMBIN TIME/[id number] 08:37:17 Test Item Value Reference Range Interpretation [...] H (test code = 413) Blood gas, [id number] 08:26:39 Test Item Value Reference Range Interpretation Comments pH, Arterial (test code 7.51 7.35-7.45 H = 2744-1) pCO2, Arterial (test 27 See_Comment L [Autom ated code = 2018-) message] The system which generated this result [...] 21 Lab Interpretation Abnormal (test code = 57418-2) [facility] HospitalBlood [facility], [id number] 08:26:39 Test Item Value Reference Range Interpretation Comments pH, Arterial (test code 7.51 7.35-7.45 H = 2744-1) pCO2, Arterial (test 27 See_Comment L [Autom ated code = 2019-8) message] The system which generated this result [...] 21 Lab Interpretation Abnormal (test code = 28990-1) [facility] HospitalBLOOD GAS, [id number] 08:26:39 Test Item Value Reference Range Interpretation [...] (BEAKER) (test code = 1819) 21.0 CALCIUM, [id number] 08:25:08 Test Item Value Reference Range Interpretation Comments CALCIUM IONIZED (BEAKER) (test 1.13 mmol/L 1.12-1.27 code = 698) PH, BLOOD (BEAKER) (test code = 7.50 1810) RAD, CHEST, 1 VIEW, NON [id number] 07:18:00Reason for exam:->Retracted R IJ CVC. Please, re-evaluate placementShould this be performed at the bedside?->Yes[facility]IP : 1985 Sex: FFINAL REPORT [...] changes. Additional findings: None. Signed: Kevin Schofield MDReport Verified Date/Time: 06/09/2022 07:18:03 Urinalysis w/Microscopic + Reflex to [id number] 06:11:15 Test Item Value Reference Range Interpretation Comments Color, UA (test code Yellow = 5778-6) Clarity, UA (test Clear code = 5767-9) Specific [place], UA 1.020 1.001-1.035 (test code = 5811-5) pH, UA (test code = 6.5 5.0-8.0 5803-2) Protein, UA (test Negative negative code = 05384-1) Glucose, UA (test Negative Negative code = 365) Ketones, UA (test Negative negative code = 2514-8) Bilirubin, UA (test Negative Negative code = 63805-2) Blood, UA (test code Small Negative A = 63923-4) Nitrite, UA (test Negative Negative code = 5802-4) Leukocytes, UA (test Negative Negative code = 5799-2) Urobilinogen, UA 2.0 (test code = 91379-0) RBC, UA (test code = 4 See_Comment [Autom ated 80117-4) message] The system which generated this result [...] . Bacteria, UA (test Rare code = 51456-3) Squam Epithel, UA See_Comment [Automate d (test code = 63291-1) messag e] The system which generated this result transmit erna reference range : /HPF. The reference range was not used to interpret this result as normal/abnormal . Hyaline Casts, UA 3 See_Comment [Automate d (test code = 66146-9) messag e] The system which generated this result transmit erna reference range : /LPF. The reference range was not used to interpret this result as normal/abnormal . Specimen Source (test code = 2795) NING (test code = NING) Document Design Specialist ID - tech Lab Interpretation Abnormal (test code = 03960-8) [facility] Hospital[facility]inalysis w/Microscopic + Reflex to Culture 2022-06-09 06:11:15 Test Item Value Reference Range Interpretation Comments Color, UA (test code Yellow = 5778-6) Clarity, UA (test Clear code = 5767-9) Specific [place], UA 1.020 1.001-1.035 (test code = 5811-5) pH, UA (test code = 6.5 5.0-8.0 5803-2) Protein, UA (test Negative negative code = 38247-6) Glucose, UA (test Negative Negative code = 365) Ketones, UA (test Negative negative code = 2514-8) Bilirubin, UA (test Negative Negative code = 28873-6) Blood, UA (test code Small Negative A = 72625-3) Nitrite, UA (test Negative Negative code = 5802-4) Leukocytes, UA (test Negative Negative code = 5799-2) Urobilinogen, UA 2.0 (test code = 32817-2) RBC, UA (test code = 4 See_Comment [Autom ated 66235-4) message] The system which generated this result [...] . Bacteria, UA (test Rare code = 33878-2) Squam Epithel, UA See_Comment [Automate d (test code = 62319-6) messag e] The system which generated this result transmit erna reference range : /HPF. The reference range was not used to interpret this result as normal/abnormal . Hyaline Casts, UA 3 See_Comment [Automate d (test code = 54996-6) messag e] The system which generated this result transmit erna reference range : /LPF. The reference range was not used to interpret this result as normal/abnormal . Specimen Source (test code = 2795) NING (test code = NING) Document Design Specialist ID - tech Lab Interpretation Abnormal (test code = 47668-3) [facility]/ REFLEX URINE [id number] 06:11:15 Test Item Value Reference Range Interpretation [...] /LPF 514) SOURCE(BEAKER) (test code = 2795) Document Design Specialist ID - techRapid drug screen, libpb6244-99-56 05:42:00 Test Item Value Reference Range Interpretation Comments Barbiturate Screen Negative Negative (test code = 27241-2) Benzodiazepine Screen Positive Negative A (test code = 19227-6) Cocaine (Metab.) Positive Negative A Screen (test code = 3397-7) Methadone Screen (test Negative Negative code = 42139-7) Opiate Screen (test Negative Negative code = 91309-6) Cannabinoid Screen Negative Negative (test code = 53294-0) Amph/Methamph Screen Negative Negative (test code = 61086-2) Phencyclidine Screen Negative Negative (test code = 70031-1) pH, UA (test code = 6.5 5.0-8.0 5803-2) NING (test code = NING) DRUG CUTOFF CONC.Cocaine 300 ng/mL Cannabinoid 50 ng/mLBenzodiazepine 200 ng/mLBarbiturate 200 ng/mLPhencyclidine 25 ng/mLOpiate 300 ng/mLMethadone 300 ng/mLAmphetamine/ 1000 ng/mL Methamphetamine This assay provides an unconfirmed qualitative test result for the clinical management of patients in emergency situations. Chain of custody not maintained. Some glty-dim-vwjlupi medications, as well as adulterants, may cause inaccurate results. Clinical correlation should be applied. A more comprehensive drug screen or confirmation of a detected drug may be performed upon request.Document Design Specialist ID - BS Lab Interpretation Abnormal (test code = 14028-9) [facility] HospitalRad drug screen, [id number] 05:42:00 Test Item Value Reference Range Interpretation Comments Barbiturate Screen Negative Negative (test code = 92047-8) Benzodiazepine Screen Positive Negative A (test code = 24493-5) Cocaine (Metab.) Positive Negative A Screen (test code = 3397-7) Methadone Screen (test Negative Negative code = 89175-2) Opiate Screen (test Negative Negative code = 16249-5) Cannabinoid Screen Negative Negative (test code = 51286-5) Amph/Methamph Screen Negative Negative (test code = 06478-8) Phencyclidine Screen Negative Negative (test code = 87435-5) pH, UA (test code = 6.5 5.0-8.0 5803-2) NING (test code = NING) DRUG CUTOFF CONC.Cocaine 300 ng/mL Cannabinoid 50 ng/mLBenzodiazepine 200 ng/mLBarbiturate 200 ng/mLPhencyclidine 25 ng/mLOpiate 300 ng/mLMethadone 300 ng/mLAmphetamine/ 1000 ng/mL Methamphetamine This assay provides an unconfirmed qualitative test result for the clinical management of patients in emergency situations. Chain of custody not maintained. Some wqug-cpd-cqcqcyt medications, as well as adulterants, may cause inaccurate results. Clinical correlation should be applied. A more comprehensive drug screen or confirmation of a detected drug may be performed upon request.Document Design Specialist ID - BS Lab Interpretation Abnormal (test code = 56361-2) [facility] HospitalRAPID DRUG SCREEN, [id number] 05:42:00 Test Item Value Reference Range Interpretation [...] situations. Chain of custody not maintained. Some emqd-shk-fxhavyw medications, as well as adulterants, may cause inaccurate results. Clinical correlation should be applied. A more comprehensive drug screen or confirmation of a detected drug may be performed upon request.Document Design Specialist ID - BSBLOOD GAS, ARTERIAL 2022-06-09 05:16:29 [...] (BEAKER) (test code = 1819) 21.0 CALCIUM, [id number] 05:14:38 Test Item Value Reference Range Interpretation Comments CALCIUM IONIZED (BEAKER) (test 1.21 mmol/L 1.12-1.27 code = 698) PH, BLOOD (BEAKER) (test code = 7.47 1810) HEPATIC FUNCTION [id number] 05:08:20 Test Item Value Reference Range Interpretation [...] code = 121 U/L 6-55 H 347) Document Design Specialist ID - MARCOSpecimen slightly ictericBASIC METABOLIC [id number] 05:08:20 Test Item Value Reference Range Interpretation [...] not appl icable for dialysis patien ts Document Design Specialist ID - MARCOSpecimen slightly mqrasujXLKBDSNBZ2718-67-94 05:08:19 Test Item Value Reference Range Interpretation Comments MAGNESIUM (BEAKER) (test code = 2.4 mg/dL 1.6-2.6 627) Document Design Specialist ID - NNEREDTDCYHMQGN5984-81-81 05:08:19 Test Item Value Reference Range Interpretation Comments PHOSPHORUS (BEAKER) (test code = 2.8 mg/dL 2.3-4.7 604) Document Design Specialist ID - MARCOTHROMBOELASTOGRAPH (TEG)2022-06-09 05:00:32 Test Item [...] % 0.0-5.0 code = 1414) LACTIC ACID, [id number] 04:54:00 Test Item Value Reference Range Interpretation Comments LACTATE BLOOD ARTERIAL (2) 0.9 mmol/L 0.5-2.2 (BEAKER) (test code = 2874) Document Design Specialist ID - BSSpecimen slightly wrbavqjQHJBSGCKCH1259-57-07 04:50:13 Test Item Value Reference Range Interpretation Comments FIBRINOGEN LEVEL (BEAKER) (test 167 mg/dl 225-434 L code = 658) PROTHROMBIN TIME/[id number] 04:49:50 Test Item Value Reference Range Interpretation [...] WBC 0-0 (test code = 413) VITAMIN [id number] 02:35:55 Test Item Value Reference Range Interpretation Comments VITAMIN B12 (BEAKER) (test code = > pg/mL 213-816 H 774) Document Design Specialist ID - MARCOBASIC METABOLIC [id number] 01:39:15 Test Item Value Reference Range Interpretation [...] not appl icable for dialysis patien ts Document Design Specialist ID - BSSpecimen slightly gibgethROIICKQHU8921-08-10 01:23:08 Test Item Value Reference Range Interpretation Comments MAGNESIUM (BEAKER) (test code = 1.5 mg/dL 1.6-2.6 L 627) Document Design Specialist ID - BSLACTIC ACID, [id number] 01:17:49 Test Item Value Reference Range Interpretation Comments LACTATE BLOOD ARTERIAL (2) 2.3 mmol/L 0.5-2.2 H (BEAKER) (test code = 0954) Document Design Specialist ID - BSSpecimen slightly icteric(CELLAVISION MANUAL DIFF)2022-06-09 [...] CONCENTRATION Decreased (CELLAVISION)(BEAKER) (test code = 3438) Document Design Specialist ID - Carine Bobo comments: Slide comments:CBC W/PLT COUNT & AUTO [id number] 01:10:12 Test Item Value Reference Range Interpretation [...] H CELLS (BEAKER) (test code = 413) [id number] 01:04:07 Test Item Value Reference Range Interpretation Comments FIBRINOGEN LEVEL (BEAKER) (test 151 mg/dl 225-434 L code = 658) CALCIUM, [id number] 00:40:04 Test Item Value Reference Range Interpretation Comments CALCIUM IONIZED (BEAKER) (test 1.06 mmol/L 1.12-1.27 L code = 698) PH, BLOOD (BEAKER) (test code = 7.45 1810) BLOOD GAS, [id number] 00:39:58 Test Item Value Reference Range Interpretation [...] 1819) 21.0 RAD, CHEST, 1 VIEW, NON [id number] 00:26:00Reason for exam:->Left IJ central line placementShould this be performed at the bedside?->Yes [facility] : 1985 Sex: FFINAL REPORT [...] left IJ line placement. Signed: Flora Marinelli [facility] Verified Date/Time: 06/09/2022 00:26:48 BLOOD GAS, [id number] 22:28:00 Test Item Value Reference Range Interpretation [...] (test 1.0 % 0.0-5.0 code = 1414) [id number] 21:35:45 Test Item Value Reference Range Interpretation Comments FIBRINOGEN LEVEL (BEAKER) (test 149 mg/dl 225-434 L code = 658) [id number] 21:28:48 Test Item Value Reference Range Interpretation Comments FERRITIN (BEAKER) (test code = 223.31 ng/mL 5.00-275.00 361) Document Design Specialist ID - MMLACTIC ACID, [id number] 21:17:43 Test Item Value Reference Range Interpretation Comments LACTATE BLOOD ARTERIAL (2) 9.0 mmol/L 0.5-2.2 HH (BEAKER) (test code = 2874) Document Design Specialist ID - ESTQVTNYUFIC9645-00-11 21:17:07 Test Item Value Reference Range Interpretation Comments PHOSPHORUS (BEAKER) (test code = 3.8 mg/dL 2.3-4.7 604) Document Design Specialist ID - KTMAMEIPZPC9832-10-20 21:17:06 Test Item Value Reference Range Interpretation Comments MAGNESIUM (BEAKER) (test code = 1.9 mg/dL 1.6-2.6 627) Document Design Specialist ID - BSBLOOD GAS, [id number] 21:12:20 Test Item Value Reference Range Interpretation [...] (test code = 1819) 21.0 BASIC METABOLIC [id number] 21:11:38 Test Item Value Reference Range Interpretation [...] not appl icable for dialysis patien ts Document Design Specialist ID - [id number] 21:10:06 Test Item Value Reference Range Interpretation Comments PARTIAL THROMBOPLASTIN TIME 32.3 seconds 22.5-36.0 (BEAKER) (test code = 760) PROTHROMBIN TIME/[id number] 21:09:27 Test Item Value Reference Range Interpretation Comments PROTIME (BEAKER) (test code = 23.4 seconds 11.9-14.2 H 759) INR (BEAKER) (test code = 370) 2.23 <=5.90 RECOMMENDED COUMADIN/WARFARIN INR THERAPY RANGESSTANDARD DOSE: 2.0 - 3.0 Includes: PROPHYLAXIS for venous thrombosis, systemic embolization; TREATMENT for venous thrombosis and/or pulmonary embolus.HIGH RISK: Target INR is 2.5-3.5 for patients with mechanical heart valves.CALCIUM, [id number] 21:01:33 Test Item Value Reference Range Interpretation Comments CALCIUM IONIZED (BEAKER) (test 0.93 mmol/L 1.12-1.27 L code = 698) PH, BLOOD (BEAKER) (test code = 7.48 1810) LACTATE DEHYDROGENASE (LDH)2022-06-08 20:52:07 Test Item Value Reference Range Interpretation Comments LACTATE DEHYDROGENASE 300 U/L 125-220 H Specim en slightly (BEAKER) (test code = hemoly zed 635) Document Design Specialist ID - BSIRON, TIBC, % SAT. (WITHOUT FERRITIN)2022-06-08 20:50:25 Test Item Value Reference Range Interpretation Comments IRON (BEAKER) (test code = 547) 120.0 ug/dL 40.0-160.0 TOTAL IRON BINDING CAPACITY 121 ug/dL 250-450 L (BEAKER) (test code = 769) IRON % SATURATION (2) (BEAKER) 99 % 20-55 H (test code = 2590) Document Design Specialist ID - BSRETICULOCYTE [id number] 20:36:25 Test Item Value Reference Range Interpretation Comments RETICULOCYTE COUNT PCT (BEAKER) (test 1.3 % 0.5-1.7 code = 575) Document Design Specialist ID - [id number] ANTIGEN WITH HIV-1/2 [id number] 20:11:17 Test Item Value Reference Range Interpretation [...] 4.1 % 0.0-5.0 code = 1414) Screen, [id number] 18:29:14 Test Item Value Reference Range Interpretation Comments Preg Test, Ur (test code = 2112-1) Negative Negative Lab Interpretation (test code = Normal 58672-6) [facility] HospitalPregnancy Screen, [id number] 18:29:14 Test Item Value Reference Range Interpretation Comments Preg Test, Ur (test code = 2112-1) Negative Negative Lab Interpretation (test code = Normal 54812-1) [facility] HospitalPREANCY SCREEN, [id number] 18:29:14 Test Item Value Reference Range Interpretation Comments TEST URINE (BEAKER) (test Negative Negative code = 583) BASIC METABOLIC [id number] 18:17:25 Test Item Value Reference Range Interpretation [...] not appl icable for dialysis patien ts Document Design Specialist ID - BSCALCIUM, [id number] 18:05:08 Test Item Value Reference Range Interpretation Comments CALCIUM IONIZED (BEAKER) (test 0.71 mmol/L 1.12-1.27 LL code = 698) PH, BLOOD (BEAKER) (test code = 7.46 1810) CBC W/PLT COUNT & AUTO [id number] 18:04:39 Test Item Value Reference Range Interpretation [...] PERCENT (BEAKER) (test code = 2801) T4, [id number] 18:01:04 Test Item Value Reference Range Interpretation Comments FREE T4 (BEAKER) (test code = 655) 1.36 ng/dL 0.70-1.48 Document Design Specialist ID - MMLACTIC ACID, [id number] 17:58:08 Test Item Value Reference Range Interpretation Comments LACTATE BLOOD 1.7 mmol/L 0.5-2.2 Specimen sligh tly ARTERIAL (2) (BEAKER) hemoly zed (test code = 2874) Document Design Specialist ID - NGF-JZYRN6204-12-01 17:55:47 Test Item Value Reference Range Interpretation [...] exclusion of thrombosis is within 95-100% range. PT/[id number] 17:53:22 Test Item Value Reference Range Interpretation [...] is 2.5-3.5 for patients with mechanical heart valves.[id number] 17:53:09 Test Item Value Reference Range Interpretation Comments FIBRINOGEN LEVEL (BEAKER) (test 243 mg/dl 225-434 code = 658) POC [id number] 17:40:15 Test Item Value Reference Range Interpretation Comments POC-Glucose (test code = 187 mg/dL 70-110 H : T ESTED AT [facility] 1855) 67[address] [facility], 770 30: Document Design Specialist/Techni skip ID = [id number] for ANGELINA MOURA Lab Interpretation (test Abnormal code = 21112-2) [facility] [id number] 17:40:15 Test Item Value Reference Range Interpretation Comments POC-Glucose (test code = 187 mg/dL 70-110 H : T ESTED AT [facility] 1855) 67[address] [facility], 770 30: Document Design Specialist/Techni skip ID = [id number] for ANGELINA MOURA Lab Interpretation (test Abnormal code = 43144-6) [facility]-[id number] 17:40:15 Test Item Value Reference Range Interpretation Comments POC-GLUCOSE (BEAKER) 187 mg/dL 70-110 H : TESTE D AT [facility] 6720 (test code = 1855) [facility], [address]: Document Design Specialist/Techni skip ID = [id number] for ANGELINA MOURA SJFP-[id number] 17:40:14 Test Item Value Reference Range Interpretation Comments POC-Hemoglobin (test code 11.9 g/dL 12.0-15.0 L : TESTED AT [facility] = 1856) [address] [facility], 770 30: Document Design Specialist/Techni skip ID = [id number] for ANGELINA MOURA Lab Interpretation (test Abnormal code = 22229-8) [facility]-[id number] 17:40:14 Test Item Value Reference Range Interpretation Comments POC-Hematocrit (test code 35 % 36-45 L : = 1857) Document Design Specialist/Techni skip ID = [id number] for ANGELINA MOURA Lab Interpretation (test Abnormal code = 14100-1) [id number] 17:40:14 Test Item Value Reference Range Interpretation Comments POC-Hemoglobin (test code 11.9 g/dL 12.0-15.0 L : TESTED AT [facility] = 1856) 67[address] [facility] [place], 770 30: Document Design Specialist/Techni skip ID = [id number] for ANGELINA MOURA Lab Interpretation (test Abnormal code = 41050-6) [facility] HospitalDyavrfGOBE-[id number] 17:40:14 Test Item Value Reference Range Interpretation Comments POC-Hematocrit (test code 35 % 36-45 L : = 1857) Document Design Specialist/Techni skip ID = [id number] for ANGELINA MOURA Lab Interpretation (test Abnormal code = 19767-7) [facility] HospitalGfgmbwFQHZ-PJGWMDSFEL8001-90-01 17:40:14 Test Item Value Reference Range Interpretation Comments POC-HEMOGLOBIN 11.9 g/dL 12.0-15.0 L : TESTED AT [facility] 6720 (BEAKER) (test code [facility], = 1856) [address]: Document Design Specialist/Techni skip ID = [id number] for ANGELINA MOURA GDOD-[id number] 17:40:14 Test Item Value Reference Range Interpretation Comments POC-HEMATOCRIT 35 % 36-45 L : Document Design Specialist/Te chnician ID = (BEAKER) (test code = 847518 for ANGELINA MOURA 1857) POC-Blood gases, oovfirhj2661-08-03 17:40:13 Test Item Value Reference Range Interpretation [...] tomated message] code = 1838) The system [employer] generated this result transmit erna reference range : 80.0 - 90.0 mm Hg. The reference r yolanda was not used to interpret this result as normal/abnormal . SO2, Arterial-POC (test 98.0 % 96.0-97.0 H code = 1839) HCO3, Arterilal-POC 18.2 meq/L 21.0-29.0 L (test code = 1840) BE, Arterial-POC (test -6.0 meq/L -2.0-3.0 L : ZOILA ERNA AT [facility] code = 1841) [address] [facility], [address]: Document Design Specialist/Techni skip ID = [id number] for ANGELINA MOURA Lab Interpretation Abnormal (test code = 29247-8) [facility]-Tsqeexsgd5303-53-58 17:40:13 Test Item Value Reference Range Interpretation Comments POC-Potassium (test code 3.9 meq/L 3.6-5.5 : T ESTED AT [facility] = 1540) [address] [place] [address], 770 30: Document Design Specialist/Techni skip ID = [id number] for ANGELINA MOURA Lab Interpretation (test Normal code = 97248-4) [facility]-Anqgry6370-19-08 17:40:13 Test Item Value Reference Range Interpretation Comments POC-Sodium (test code = 134 meq/L 135-148 L : TE STED AT [facility] 1542) [address] [facility], 770 30: Document Design Specialist/Techni skip ID = [id number] for ANGELINA MOURA Lab Interpretation (test Abnormal code = 28963-6) [facility]-Blood gases, uvmsdqzo3570-47-38 17:40:13 Test Item Value Reference Range Interpretation [...] tomated message] code = 1838) The system [employer] generated this result transmit erna reference range : 80.0 - 90.0 mm Hg. The reference r yolanda was not used to interpret this result as normal/abnormal . SO2, Arterial-POC (test 98.0 % 96.0-97.0 H code = 1839) HCO3, Arterilal-POC 18.2 meq/L 21.0-29.0 L (test code = 1840) BE, Arterial-POC (test -6.0 meq/L -2.0-3.0 L : ZOILA ERNA AT [facility] code = 1841) 67[address] [facility], [address]: Document Design Specialist/Techni skip ID = [id number] for ANGELINA MOURA Lab Interpretation Abnormal (test code = 09335-0) [facility]-[id number] 17:40:13 Test Item Value Reference Range Interpretation Comments POC-Potassium (test code 3.9 meq/L 3.6-5.5 : T ESTED AT [facility] = 1540) [address] [place] [address], 770 30: Document Design Specialist/Techni skip ID = [id number] for ANGELINA MOURA Lab Interpretation (test Normal code = 62958-5) [facility]-[id number] 17:40:13 Test Item Value Reference Range Interpretation Comments POC-Sodium (test code = 134 meq/L 135-148 L : TE STED AT [facility] 1542) [address] [place] [address], 770 30: Document Design Specialist/Techni skip ID = [id number] for ANGELINA MOURA Lab Interpretation (test Abnormal code = 32843-1) [facility]-BLOOD GASES, [id number] 17:40:13 Test Item Value Reference Range Interpretation [...] -6.0 meq/L -2.0-3.0 L : TESTED AT [facility] 6720 ARTERIAL-POC [facility], (BEAKER) (test 47984: code = 1841) Document Design Specialist/Techni skip ID = [id number] for ANGELINA MOURA [id number] 17:40:13 Test Item Value Reference Range Interpretation Comments POC-SODIUM (BEAKER) 134 meq/L 135-148 L : TESTED AT [facility] 67 (test code = 1542) [facility], [address]: Document Design Specialist/Techni skip ID = [id number] for ANGELINA MOUAR [id number] 17:40:13 Test Item Value Reference Range Interpretation Comments POC-POTASSIUM 3.9 meq/L 3.6-5.5 : TESTED AT [place] [address] (BEAKER) (test code [facility], = 1540) [address]: Document Design Specialist/Techni skip ID = [id number] for ANGELINA MOURA U/S, DUPLEX, [id number] 17:35:00Reason for exam:->please evaluate hepatic vasculature [facility] TAMERAEZRAPeng COSTA : 1985 Sex: FFINAL REPORT Real-time Color [...] arteries and portal veins. Signed: Amalia Rubio MDReport Verified Date/Time: 06/08/2022 17:35:07 Reading Location: [address] Body Reading Room HEPATITIS B SURFACE [id number] 17:32:15 Test Item Value Reference Range Interpretation Comments HEPATITIS B SURFACE ANTIBODY < mIU/mL <8.0 (BEAKER) (test code = 647) Document Design Specialist ID - BSHEPATITIS B CORE ANTIBODY, [id number] 17:27:01 Test Item Value Reference Range Interpretation Comments HEPATITIS B CORE TOTAL ANTIBODY Nonreactive Nonreactive (BEAKER) (test code = 497) Document Design Specialist ID - BSHEPATITIS A ANTIBODY, [id number] 17:27:01 Test Item Value Reference Range Interpretation Comments HEPATITIS A IGG ANTIBODY (BEAKER) Nonreactive Nonreactive (test code = 2797) Document Design Specialist ID - BSHEPATITIS A ANTIBODY, [id number] 17:27:00 Test Item Value Reference Range Interpretation Comments HEPATITIS A IGM ANTIBODY (BEAKER) Nonreactive Nonreactive (test code = 498) Document Design Specialist ID - [id number] 17:16:00 Test Item Value Reference Range Interpretation Comments POTASSIUM (BEAKER) (test code = 3.0 meq/L 3.5-5.1 L 379) Document Design Specialist ID - [id number] 17:16:00 Test Item Value Reference Range Interpretation Comments SODIUM (BEAKER) (test code = 381) 134 meq/L 136-145 L Document Design Specialist ID - [id number] 17:16:00 Test Item Value Reference Range Interpretation Comments GLUCOSE RANDOM (BEAKER) (test code 107 mg/dL 70-105 H = 652) Document Design Specialist ID - MMSALICYLATE [id number] 17:04:01 Test Item Value Reference Range Interpretation Comments SALICYLATE LEVEL (BEAKER) (test code < mg/dL 15.0-30.0 L = 764) Therapeutic Range: 15.0-30.0 mg/dLToxic: >30.0 mg/dL Lethal: >70.0 mg/dLOperator ID - [id number] 16:50:51 Test Item Value Reference Range Interpretation Comments CORTISOL, TOTAL (BEAKER) (test 13.4 ug/dL 3.7-19.4 code = 2755) Document Design Specialist ID - FJIKZYJ-3-[id number] 16:35:51 Test Item Value Reference Range Interpretation Comments ALPHA-1 ANTITRYPSIN (BEAKER) 282.30 mg/dL 90.00-200.00 H (test code = 502) Document Design Specialist ID - BSACETAMINOPHEN [id number] 16:30:13 Test Item Value Reference Range Interpretation Comments ACETAMINOPHEN LEVEL (BEAKER) (test < ug/mL 10.0-30.0 L code = 344) Therapeutic Range: 10.0-30.0 g/mLToxic Levels: >200.0 g/mLOperator ID - MM TSH/FREE T4 IF [id number] 16:15:28 Test Item Value Reference Range Interpretation Comments THYROID STIMULATING HORMONE 0.121 uIU/mL 0.350-4.940 L (BEAKER) (test code = 772) Document Design Specialist ID - BSHEPATITIS C [id number] 16:10:06 Test Item Value Reference Range Interpretation Comments HEPATITIS C ANTIBODY (BEAKER) Nonreactive Nonreactive (test code = 367) Document Design Specialist ID - BSHEPATITIS B SURFACE [id number] 16:10:05 Test Item Value Reference Range Interpretation Comments HEPATITIS B SURFACE ANTIGEN (2) Nonreactive Nonreactive (BEAKER) (test code = 2585) Specimen is considered negative for HBsAg.[id number] 15:13:41 Test Item Value Reference Range Interpretation Comments AMMONIA (BEAKER) (test code = 348) 44 mol/L 18-72 Document Design Specialist ID - MMCREATINE KINASE (CK)2022-06-08 15:03:37 Test Item Value Reference Range Interpretation Comments CREATINE KINASE TOTAL (BEAKER) (test 42 U/L 29-200 code = 380) Document Design Specialist ID - MMU/S, ABDOMINAL, [id number] 14:56:00Reason for exam:- >eval RUQ and kidneys [facility] : 1985 Sex: FFINAL REPORT [...] Hepatomegaly.2. Cholelithiasis without biliary dilatation. Signed: Amalia Ruibo MDReport Verified Date/Time: 06/08/2022 14:56:28 ReadingLocation[facility] Body Reading Room VITAMIN [id number] 14:03:03 Test Item Value Reference Range Interpretation Comments VITAMIN B12 (BEAKER) (test code = > pg/mL 213-816 H 774) Document Design Specialist ID - MMCOMPREHENSIVE METABOLIC [id number] 13:41:11 Test Item Value Reference Range Interpretation [...] not appl icable for dialysis patien ts Document Design Specialist ID - MMRAD, CHEST, 1 VIEW, NON [id number] 13:40:00Reason for exam:- >CVC placementShould this be performed at the bedside?->Yes [facility] : 1985 Sex: FFINAL REPORT Chest, one view History: Placement of central venous catheter Comparison: none Findings:Clear lungs. Normal size heart. No pleural effusion or pneumothorax. A rightinternal jugular central venous catheter terminates within the superior vena cava. Impression:Satisfactory position of right internal jugular central venous catheter. Signed: Arturo Dumont MDReport Verified Date/Time: 06/08/2022 13:40:21 [id number] 13:37:09 Test Item Value Reference Range Interpretation Comments FERRITIN (BEAKER) (test code = 273.35 ng/mL 5.00-275.00 361) Document Design Specialist ID - [id number] 13:11:23 Test Item Value Reference Range Interpretation [...] % 20-55 H (test code = 2590) Document Design Specialist ID - [id number] 13:08:43 Test Item Value Reference Range Interpretation Comments PHOSPHORUS (BEAKER) (test code = 3.8 mg/dL 2.3-4.7 604) Document Design Specialist ID - [id number] 13:08:42 Test Item Value Reference Range Interpretation Comments MAGNESIUM (BEAKER) (test code = 2.6 mg/dL 1.6-2.6 627) Document Design Specialist ID - [id number] 13:02:42 Test Item Value Reference Range Interpretation Comments PARTIAL THROMBOPLASTIN TIME 31.7 seconds 22.5-36.0 (BEAKER) (test code = 760) PROTHROMBIN TIME/[id number] 13:02:02 Test Item Value Reference Range Interpretation [...] mechanical heart valves.CBC W/PLT COUNT & AUTO [id number] 12:49:19 Test Item Value Reference Range Interpretation [...] 0.00-1.00 PERCENT (BEAKER) (test code = 2801) [id number] 12:31:06 Test Item Value Reference Range Interpretation Comments POC-POTASSIUM 3.6 meq/L 3.6-5.5 : TESTED AT [facility] 6720 (BEAKER) (test code [facility], = 1540) [address]: Document Design Specialist/Techni skip ID = [id number] for WILL MOURAAN JUBY-[id number] 12:31:06 Test Item Value Reference Range Interpretation Comments POC-HEMOGLOBIN 6.8 g/dL 12.0-15.0 L : TESTED AT [facility] 6720 (BEAKER) (test code = JANIE [employer], 185) [address]: Document Design Specialist/Techni skip ID = [id number] for ANGELINA MOURA [id number]-[id number] 12:31:06 Test Item Value Reference Range Interpretation Comments POC-HEMATOCRIT 20 % 36-45 L : Document Design Specialist/Te chnician ID = (BEAKER) (test code = 982666 for ANGELINA MOURA 185) [id number] 12:31:06 Test Item Value Reference Range Interpretation Comments POC-GLUCOSE (BEAKER) 105 mg/dL 70-110 : TESTE D AT [facility] 6720 (test code = 1855) [place], [address]: Document Design Specialist/Techni skip ID = [id number] for ANGELINA MOURA POCT-BLOOD GASES, [id number] 12:31:00 Test Item Value Reference Range Interpretation [...] -3.0 meq/L -2.0-3.0 L : TESTED AT [facility] 6720 ARTERIAL-POC [facility], (BEAKER) (test [address]55[address]: code = 1841) Document Design Specialist/Techni skip ID = [id number] for ANGELINA MOURA [id number] 12:31:00 Test Item Value Reference Range Interpretation Comments POC-SODIUM (BEAKER) 132 meq/L 135-148 L : TESTED AT [facility] 6720 (test code = 1542) [place], [address]: Document Design Specialist/Techni skip ID = [id number] for ANGELINA MOURA Culture, [id number] 15:56:00 Test Item Value Reference Range Interpretation Comments Culture, Urine (test code = URC) NF Culture, Urine (test code = URC1) 50 MSF [id number] 19:50:00 Test Item Value Reference Range Interpretation [...] EGFRCR) Estimated GFR: Greater than 90 mL/min/1.73 v8Xljxslqa eGFR is based on the CK D-EPI [...] code = 14 U/L 8-55 N ALT) [id number] 19:50:00 Test Item Value Reference Range Interpretation Comments Chemistry (test code = LIP) 39 U/L 8-78 N [id number] 19:46:00 Test Item Value Reference Range Interpretation Comments Chemistry (test Less than < 0.028 code = TROPI-R) 0.010 ng/mL Reference Ra nge 0.00 - 0.028 ng /mL Negative 0.029 - 0.29 ng/mL Indetermi vincent Greater or Equa l to 0.3 ng/mL Stron gly suggests [place] Chemistry - [id number] 19:43:00 Test Item Value Reference Range Interpretation Comments Chemistry - Lactate (test code = 0.6 mmol/L 0.5-2.2 N LACTSEP-T) Chemistry - [id number] 19:27:00 Test Item Value Reference Range Interpretation Comments Chemistry - Specials Negative NEGATIVE Method of sensitivity- (test code = BHCGST) Indeter minant: results should be repea erna after 48-72 hrs Positive: resul ts may be detected as early as 1 day after the first missed me nses. [id number] 19:22:00 Test Item Value Reference Range Interpretation [...] code = BASO#) 0.0 thou/uL 0.0-0.2 N [id number] 19:16:00 Test Item Value Reference Range Interpretation Comments Urinalysis (test code = [place] Yellow A UACLR) Urinalysis (test code = [...] Seen A UABAC) Urine Source: Urine VoidedType Tehhir0558-85-16 09:43:00 Test Item Value Reference Range Interpretation [...] 7 days from now? NOPacked Cells - Vhtmzqmuvfsj4352-02-32 09:43:[id number] OP LRPC TRANSFUSED 03/09/22 0342 Fyxfehsklb5623-51-16 05:58:00 Test Item Value Reference Range Interpretation [...] Urine Clean CatchUrine specific gravity measurement by zfgwxhbyuhaxc9912-86-55 05:17:00 Test Item Value Reference Range Interpretation Comments Urine Specific [place] (test code = 1.054 1.002-1.036 5810-7) [facility] pH measurement by automated test [id number] 05:17:00 Test Item Value Reference Range Interpretation Comments Urine pH (test code = 15206-7) 6.5 5.0-9.0 [facility] leukocyte esterase detection by automated test [id number] 05:17:00 Test Item Value Reference Range Interpretation Comments Urine Leukocyte Esterase (test code 75 [place]ion[place]/uL Negative = 37308-2) [facility] in Urine by Test bldjt0319-08-77 05:17:00 Test Item Value Reference Range Interpretation Comments Urine Nitrite (test code = 5802-4) Negative Negative [facility] protein measurement by automated test strip (mass/volume)2022-03-09 05:17:00 Test Item Value Reference Range Interpretation Comments Urine Protein (test code = Negative mg/dL Neg-Trace 26291-8) [facility] glucose measurement by test strip (mass/volume) 2022-03-09 05:17:00 Test Item Value Reference Range Interpretation Comments Urine Glucose (UA) (test code = Normal mg/dL Negative 5792-7) [facility] ketones measurement by automated test strip (mass/volume)2022-03-09 05:17:00 Test Item Value Reference Range Interpretation Comments Urine Ketones (test code = Negative mg/dL Negative 12669-9) [facility] urobilinogen measurement (units/volume) by test [id number] 05:17:00 Test Item Value Reference Range Interpretation Comments Urine Urobilinogen (test code = Normal mg/dL Less than 2 92494-7) [facility] total bilirubin detection by automated test [id number] 05:17:00 Test Item Value Reference Range Interpretation Comments Urine Bilirubin (test code = Negative Negative 55722-9) [facility] hemoglobin detection by automated test strip 2022-03-09 05:17:00 Test Item Value Reference Range Interpretation Comments Urine Blood (test code = 61898-7) 3+ Negative [facility] erythrocytes detection by automated method 2022-03-09 05:17:00 Test Item Value Reference Range Interpretation Comments Urine RBC (test code = 75624-7) 4-6 HPF 0-3 [facility] leukocytes detection by automated method 2022-03-09 05:17:00 Test Item Value Reference Range Interpretation Comments Urine WBC (test code = 01262-4) 0-3 HPF 0-3 [facility] CenterEpithelial cells.squamous [#/area] in Urine sediment by Automated [id number] 05:17:00 Test Item Value Reference Range Interpretation Comments Urine Squamous Epithelial Cells (test 0-3 HPF 0-3 code = 85429-3) [facility] bacteria detection by automated [id number] 05:17:00 Test Item Value Reference Range Interpretation Comments Urine Bacteria (test code = None Seen HPF None Seen 82764-5) [facility] CenterColor of Urine by Nmhd3946-38-25 05:17:00 Test Item Value Reference Range Interpretation Comments Urine Color (test code = Light-Yellow Yellow 79068-6) [facility] clarity by refractometry xwfxmgkia7745-85-04 05:17:00 Test Item Value Reference Range Interpretation Comments Urine Clarity (test code = 70218-2) Clear Clear [facility] CenterChemistry2022-12-31 03:39:00 Test Item Value Reference Range Interpretation Comments Chemistry (test Less than < 0.028 code = TROPI-R) 0.010 ng/mL Reference Ra nge 0.00 - 0.028 ng /mL Negative 0.029 - 0.29 ng/mL Indetermi vincent Greater or Equa l to 0.3 ng/mL Stron gly suggests [place] Chemistry - Qbgublrb5141-06-25 01:51:00 Test Item Value Reference Range Interpretation Comments Chemistry - Specials Negative NEGATIVE Method of sensitivity- (test code = BHCGST) Indeter minant: results should be repea erna after 48-72 hrs Positive: resu lts may be detected as early as 1 day after the first missed me nses. Xsmpgglofyf4346-23-04 01:01:00 Test Item Value Reference Range Interpretation Comments Coagulation (test 14.1 sec 12.0-14.7 N code = PT-T) Coagulation (test 1.1 ATTE NTION: READ code = INR) CAREFULLY-- The recommended the rapeutic ranges for oral anticoagulanttr eatments are: ------ Low Inte nsity: 1.5 - 2.0 Moderate In tensity: 2.0 - 3.0 High Inten sity (1): 2.5 - 3.5 High Inte nsity (2): 3.0 - 4.0 CRITICAL: > 6.0 Anticoagulant? NONEMedical Necessity SUSPECT COAGULOPATHYAnticoagulant? NONEMedical Necessity: SUSP OJAQCisufnemvfp0571-81-36 01:01:00 Test Item Value Reference Range Interpretation Comments Coagulation (test code = PTT) 32.5 sec 22.9-36.1 N Anticoagulant? NONEMedical Necessity SUSPECT COAGULOPATHYAnticoagulant? NONEMedical Necessity: SUSP LUWMPtoajctcvsu4203-53-54 01:01:00 Test Item Value Reference Range Interpretation Comments Coagulation (test 0.27 *mcg/mL 0.27-0.43 N * Referenc e Range code = DDIMTT) Units: mcg/mL of fibrinogen equi valent units(FEU)Based upon a retrospective study of [facility] in July 2005, a result of"Less than 0. 44 mcg/mL FEU" is predictive of t he absence ofa DVT or PE. Anticoagulant? NONEMedical Necessity SUSPECT COAGULOPATHYAnticoagulant? NONEMedical Necessity: SUSP COAGChemistry - [id number] 00:53:00 Test Item Value Reference Range Interpretation Comments Chemistry - Lactate (test code = 0.7 mmol/L 0.5-2.2 N LACTSEP-T) Retype Verify-Blood Type [id number] 00:36:00 Test Item Value Reference Range Interpretation Comments Blood Type Rh (test code = BT) A POSITIVE Serum or plasma lactate measurement (moles/volume)2022-03-09 00:26:00 Test Item Value Reference Range Interpretation Comments Lactic Acid Level (test code = 0.7 mmol/L 0.5-2.2 2524-7) [facility] CenterProthrombin time (PT) in platelet poor plasma by coagulation senat0796-00-11 00:26:00 Test Item Value Reference Range Interpretation Comments Prothrombin Time (test code = 14.1 sec 12.0-14.7 5902-2) [facility] CenterINR in Platelet poor plasma by Coagulation assay 2022-03-09 00:26:00 Test Item Value Reference Range Interpretation Comments INR International Normalized Ratio 1.1 (test code = 6301-6) [facility] CenterActivated partial thromboplastin time (aPTT) in platelet poor plasma by coagulation [id number] 00:26:00 Test Item Value Reference Range Interpretation Comments Activated Partial Thromboplast Time 32.5 sec 22.9-36.1 (test code = 44819-4) [facility] CenterFibrin D-dimer FEU measurement in platelet poor plasma (mass/volume)2022-03-09 00:26:00 Test Item Value Reference Range Interpretation Comments D-Dimer (test code = 22157-8) 0.27 *mcg/mL 0.27-0.43 [facility] CenterChemistry2022-12-31 00:01:00 Test Item Value Reference Range Interpretation Comments Chemistry (test Less than < 0.028 code = TROPI-R) 0.010 ng/mL Reference Ra nge 0.00 - 0.028 ng /mL Negative 0.029 - 0.29 ng/mL Indetermi vincent Greater or Equa l to 0.3 ng/mL Stron gly suggests [place] Udtxmehtu9883-34-53 23:59:00 Test Item Value Reference Range Interpretation [...] EGFRCR) Estimated GFR: Greater than 90 mL/min/1.73 k0Ctpkqwyk eGFR is based on the CK D-EPI [...] code = 7 U/L 8-55 L ALT) Cbtcdaknl5631-65-01 23:59:00 Test Item Value Reference Range Interpretation Comments Chemistry (test code = LIP) 42 U/L 8-78 N Rgiwncrurc9553-89-80 23:36:00 Test Item Value Reference Range Interpretation [...] = 2951-2) 140 mmol/L 136-145 [facility] or plasma potassium measurement (moles/volume) 2022-03-08 23:16:00 Test Item Value Reference Range Interpretation Comments Potassium Level (test code = 3.7 mmol/L 3.5-5.1 2823-3) [facility] or plasma chloride measurement (moles/volume) 2022-03-08 23:16:00 Test Item Value Reference Range Interpretation Comments Chloride Level (test code = 105 mmol/L 98-107 2075-0) [facility] or plasma carbon dioxide, total measurement (moles/volume)2022-03-08 23:16:00 Test Item Value Reference Range Interpretation Comments Carbon Dioxide Level (test code = 27 mmol/L 2027-11) [facility] or plasma anion [id number] 23:16:00 Test Item Value Reference Range Interpretation Comments Anion Gap (test code = 67321-3) 12 mmol/L 10-20 [facility] or plasma urea nitrogen measurement (mass/volume)2022-03-08 23:16:00 Test Item Value Reference Range Interpretation Comments Blood Urea Nitrogen (test code = 13 mg/dL 7.0-18.7 3094-0) [facility] or plasma creatinine measurement (mass/volume) 2022-03-08 23:16:00 Test Item Value Reference Range Interpretation Comments Creatinine (test code = 2160-0) 0.67 mg/dL 0.6-1.1 [facility] filtration rate/1.73 sq M.predicted [Volume Rate/Area] in Serum, Plasma [id number] 23:16:00 Test Item Value Reference Range Interpretation Comments Estimated GFR (CKD-EPI 2020) (test code 115 = 58579-9) [facility] CenterGlucose [Mass/volume] in Serum or Trbhbe1134-63-16 23:16:00 Test Item Value Reference Range Interpretation Comments Glucose Level (test code = 2345-7) 107 mg/dL 70-105 [facility] or plasma calcium measurement (mass/volume) 2022-03-08 23:16:00 Test Item Value Reference Range Interpretation Comments Calcium Level (test code = 57861-3) 8.5 mg/dL 7.8-10.44 [facility] or plasma total bilirubin measurement (mass/volume)2022-03-08 23:16:00 Test Item Value Reference Range Interpretation Comments Total Bilirubin (test code = 0.2 mg/dL 0.2-1.2 1974-2) [facility] or plasma protein measurement (mass/volume) 2022-03-08 23:16:00 Test Item Value Reference Range Interpretation Comments Serum Total Protein (test code = 6.0 g/dL 6.0-8.3 2885-2) [facility] or plasma albumin measurement by bromocresol green (BCG) dye binding method ([id number] 23:16:00 Test Item Value Reference Range Interpretation Comments Albumin (test code = 98636-4) 3.6 g/dL 3.5-5.0 [facility] CenterGlobulin [Mass/volume] in Serum by calculation 2022-03-08 23:16:00 Test Item Value Reference Range Interpretation Comments Globulin (test code = 51997-1) 2.4 g/dL 2.4-3.5 [facility] CenterAlbumin/Globulin [Mass Ratio] in Serum or Plasma 2022-03-08 23:16:00 Test Item Value Reference Range Interpretation Comments Albumin/Globulin Ratio (test code = 1.5 g/dL 1.2-2.2 1759-0) [facility] CenterAlkaline phosphatase [Enzymatic activity/volume] in Serum or Fbjemb3542-08-30 23:16:00 Test Item Value Reference Range Interpretation Comments Alkaline Phosphatase (test code = 58 U/L 40-110 6768-6) [facility] or plasma aspartate aminotransferase measurement (enzymatic activity/volume)2022-03-08 23:16:00 Test Item Value Reference Range Interpretation Comments Aspartate Amino Transf (AST/SGOT) (test 8 U/L 5-34 code = 1920-8) [facility] or plasma alanine aminotransferase measurement without P-5'-P (enzymatic cqqxer9042-25-97 23:16:00 Test Item Value Reference Range Interpretation Comments Alanine Aminotransferase (ALT/SGPT) 7 U/L 8-55 (test code = 1744-2) [facility] or plasma lipase measurement (enzymatic activity/volume)2022-03-08 23:16:00 Test Item Value Reference Range Interpretation Comments Lipase (test code = 3040-3) 42 U/L 8-78 [facility] human chorionic gonadotropin detection for vpylkcqgm9307-89-10 23:16:00 Test Item Value Reference Range Interpretation Comments Serum Test, Qualitative Negative NEGATIVE (test code = 2118-8) [facility] CenterLeukocytes [#/volume] in Blood by Automated count 2022-03-08 23:16:00 Test Item Value Reference Range Interpretation Comments White Blood Count (test code = 7.8 10x3/uL 4.8-10.8 6690-2) [facility] erythrocytes automated count (number/volume) 2022-03-08 23:16:00 Test Item Value Reference Range Interpretation Comments Red Blood Count (test code = 2.42 mill/uL 4.20-5.40 789-8) [facility] hemoglobin measurement (mass/volume)2022-03-08 23:16:00 Test Item Value Reference Range Interpretation Comments Hemoglobin (test code = 718-7) 8.3 g/dL 12.0-16.0 [facility] corpuscular volume 2022-03-08 23:16:00 Test Item Value Reference Range Interpretation Comments Mean Corpuscular Volume (test code = 94.0 fl 78.0-98.0 787-2) [facility] mean corpuscular hemoglobin (mass per erythrocyte)2022-03-08 23:16:00 Test Item Value Reference Range Interpretation Comments Mean Corpuscular Hemoglobin (test 34.2 pg 27.0-31.0 code = 785-6) [facility] erythrocyte mean corpuscular hemoglobin concentration measurement (mass/zwo4632-12-73 23:16:00 Test Item Value Reference Range Interpretation Comments Mean Corpuscular Hemoglobin Concent 36.4 g/dL 32.0-36.0 (test code = 786-4) [facility] 2022-03-08 23:16:00 Test Item Value Reference Range Interpretation Comments Red Cell Distribution Width (test code 13.8 % 11.5-14.5 = 788-0) [facility] platelet count (count/volume) 2022-03-08 23:16:00 Test Item Value Reference Range Interpretation Comments Platelet Count (test code = 237 10x3/uL 130-400 777-3) [facility] mean leinpc4758-90-75 23:16:00 Test Item Value Reference Range Interpretation Comments Mean Platelet Volume (test code = 7.2 fL 7.4-10.4 20392-2) [facility] blood neutrophils/100 mngkooozay5271-90-53 23:16:00 Test Item Value Reference Range Interpretation Comments Neutrophils % (test code = 770-8) 60.3 % 42.0-75.0 [facility] leukocytes [facility] Blood by Automated count 2022-03-08 23:16:00 Test Item Value Reference Range Interpretation Comments Lymphocytes % (test code = 736-9) 30.8 % 21.0-51.0 [facility] monocytes/100 txumkbzcvr1067-72-21 23:16:00 Test Item Value Reference Range Interpretation Comments Monocytes % (test code = 5905-5) 5.5 % 0.0-10.0 [facility] eosinophils/100 wlcurqmomc8648-78-00 23:16:00 Test Item Value Reference Range Interpretation Comments Eosinophils % (test code = 713-8) 3.2 % 0.0[facility]10.0 [facility] owksjfxyvp7047-02-26 23:16:00 Test Item Value Reference Range Interpretation Comments Basophils % (test code = 706-2) 0.2 % 0.0-1.0 [facility] neutrophils automated count (number/volume) 2022-03-08 23:16:00 Test Item Value Reference Range Interpretation Comments Neutrophils # (test code = 751-8) 4.7 thou/uL 1.40-6.50 [facility] Blood by Automated count 2022-03-08 23:16:00 Test Item Value Reference Range Interpretation Comments Lymphocytes # (test code = 731-0) 2.4 thou/uL 1.20-3.40 [facility] monocytes automated count (number/volume) 2022-03-08 23:16:00 Test Item Value Reference Range Interpretation Comments Monocytes # (test code = 742-7) 0.4 thou/uL 0.11-0.59 [facility] (count/volume) 2022-03-08 23:16:00 Test Item Value Reference Range Interpretation Comments Eosinophils # (test code = 711-2) 0.2 thou/uL 0.0-0.7 [facility] (count/volume) 2022-03-08 23:16:00 Test Item Value Reference Range Interpretation Comments Basophils # (test code = 704-7) 0.0 thou/uL 0.0-0.2 [facility] Orbc9160-76-40 16:47:26 Test Item Value Reference Range Interpretation Comments Case Report (test code Surgical Pathology = 104) Report Case: [id number] Authorizing Provider: Nathaniel Dooley MD Collected: 02/26/2022 04:38 PM Ordering Location: [address] Received: 02/27/2022 07:57 AM Service Pathologist: Gene Carlton MD Specimen: Cervix DIAGNOSIS (test code = [id number] 3220) FuZzEwMzNcZnRuYmpcdWMx IHtccnRmMVxlcGljOTYwMl vczkAuFEDzjFFdD9Ezfygp UOfwUO1qGS1coYiyyOEshJ YqLURjNmSlr6gcf996aJRa y6pnVRAPghdvaGt3tMkrD1 2ca1K3KqhkQ10dxAPwTPV1 HKRtUEAfsMXlPJKgZRP5AE JzoEVdR9quLRWeJL7qptxo LWttGAvcVPWygQW2VJZcbT YwF0IpUJUqHTwoWKQbzjx0 KnIwLd8sxXDubMtaNBadHZ WhAQEbFDteIQUmZtCkV2NL FlmZHPBRVBPSSKADLN3IP8 f8ZAQqwuw0CEPqIGXJMFYJ VfFSV9aKCPPNZxSKCXMVJV ByG3GwF4OOZI7TJNMzK4AA GTTOFOHBVX3VAMLmHCAsUW Tlk93gGO81RDlkESK5j0iy dGYxXHNzdGUxODAwMFxhbn NpXGRlZmxhbmcxMDMzXGZ0 bmJqXHVjMVxkZWZmMHtcZm 0phMMefIypXcNuIEOpc3do tvTQsisygKh9i4gxXRYtOe I6iDCsUQmaF6pjujHigNFu CWCuVMa8fK41PYYwnL3mhL OxPUuacjUnTvM1TGkaBFRy JdO4EUAqfHBxGYSwP1qkZB QwXGdyZWVuMFxibHVlMCA7 fLklf5S1oTNdeIDsbVhkIl UgYrSlDsQSv6WmJQr5nLkm M2CtQBKwYmW4lYIxRWJhRL nsBYIdDVOgooU5hY44IDox ssZ8fNEre2Ffp81hs365fM 3ufHVfRWH7CYYiUARsqDEk QCCeSMA4TXApkYSvD4fyIF FdDN8nwndkFUemYBtuKRZi qZQ0YRZkhGPxS2PdEWJuDF vzFNDwgiz4UqGtCp6zkUVe kMklICish4cui7ajaBZmUf u7OFLdZkZnXpvmGRlzp6Ba h3xfBLKllm8zZOL9gXXccD pcn6S0iPPvGKFndWJmQYGc TP8rlZBqCGXggU7fjahnGO BnYnJkcmhlYWRccGdicmRy Ci0npVvtLRA9CJltV3ortY 0nTwP9XIqcX2uomV9bOBh0 FOvrAHGhhBT8nzZ4PZJzpY PnS5DhuG0vZOHaZT6ekmu6 k3gxOSY1TDorGPNgYfT9wz U6PMOuoEFaGLOdxWbmEOsr y241AXE9KeUkSNGic7VbP5 MxyNvtQ10snTlwQ28fKQIu gCopvG6biDpdtU6wSwDmDs MnIDwypOqpZS7cZRHtO7mp xEDpYLImDXYtU8cmYoUuuO 8ssJkhKEignbGiEDFnMje3 KUPxoQJcIQOqWma5WJLxPS WeP16fzgscERV4wI9ic6bp d0WdLDefESR6TGIov25eBC yzzgY8PKcpSy50ZQlbCDT3 SGrnOUQ2rE== COMMENT (test code = f3gnrHXsAEJegEI3KrQwQL 3354) Joq0poa3ZirRYziRNuHKfh sLEhwrXfcz71sAK1vR91CX 0pSZZbDrE0ICGqxdI7Uta7 LMGpEBNqdNDbR022n3jln8 xdgwRxoRQ7vApdGDGdhvsg TaH3PPghXBDwgawbFQk7WJ grIKFvyXR4PYQwnSBvX5Nn RHEwOM5kzzo8XTB5HMluVZ KkEpM2RCNjbZJeRNGrjQmj NJplq010INQ6NhGjNSEgpi IsnUlhsB9rBvAoLAKCiANk jZJ6wSYyiYnjLFnmb0Onat vvf4BnF3SmidihAAkcaWHj nnPtnoRqv8UaID9iEJerFT P3gO0wIVEof8pvEYBoJ0Te FX4sS5Xds9ioPVEyh1aycb PkSVF5sMOgGYPyhsJdfhSw NDH3fQSjvRQwvXOhkYAabX Res2OegMH0ogGaehQamBF8 XQOyn7ZfjU79UZNnw82qNJ Bhcn0= CPT Code(s) (test code b3dxiVZgTPNoiQF5NiYwEV = 3354) Bmw0qaz8MekLRscOTaWPdm sVWpdwPbqu72lGD2lZ30IM 1eQSDdEjB9BFNnwqO0Xcu3 ESBrLEFatTSuG094i3iem4 ctfiPjlCK2nNzuOEMwbori CaU4RKjfAJDtumyyGFr3EA ajTOCflSV7ISMiiFNuD8Dd EUMpDF0uffr4YEM2XXetMZ VfBnI4HDAaaXZxAFAhpGad PFvbm202EPQ7GrFxWVHfkx UtvStfuE2lHpNkAUS4OEXz NVxwYXJ9 CLINICAL HISTORY (test b8gufBChMLClmQN7NrIxVN code = 3356) Mbr3vhy2EohLFarITxVBso dZRlenDzdc10aMT5pP10QR 3lABRzOoB8RNGyyxX0Lfv7 DAJbUCSyxGJyK280t3vgo7 lahtGjiIX9tTvgPMCwyljf NyA7OXueNYOwkyjiFOn1UX drNJTkxDD2ZXYquQNpP2Jl TEZiBP7haaw7YYQ8LEsyXN YqNnH3NMQwqVFyFQBrtVnc EGeak069QNZ8IwEyQOZcip QxtKzsoS5hBiAtDGGnTLG9 Qp1uLP7tET2drYJzbksfor QyebZoaiQufmRytmP8MYOi i6x0sDENFVr0VU8rAMlIEN FftvMrIbbfcR5jlPhhvSUd LK23zY6tmLFfo6RkpWWkHY wjtFaruzQcwfQvUZmxcJ7x gTlbWL9qHsT0BMlmxaBwFN TtUFDolH1pSJXop8eafoRy YmRvbWluYWwgcGFpbiwgU0 7VLHYwtDhvkPduQCSrBW2j y6SbrcRaNMZvWVGfB0CtKV Cxk5FbTQI1wbXsIBAiQCI9 cNJ0f57fyBumHMByWO1bEQ YyDDwnRQRhRFqnMM8nILSg vrTtG4SkAY9ih3Zng5g+b2 4crZ3qV5guV8yzIXY7 GROSS DESCRIPTION (test f5gqvAGhSOMcaMBXGJGkF8 code = [id number]) qqoiGrRGGjwSChQ5Nldpjr WBocWH1dFH1jdZnepUFwjN JyCN5XLCEsUyBrFRMnfVBg zlBdYzRyFKFlrPKcuVR7MA LvKZ2dfinoBYimGAfiCZRy mrN6VJQqrGBsL0PnXRWsDP 9ykwwoUJS2MSzthX5rusIC VogtLk3ryLXiyAiwRlZiDk NoYXJzZXQwXGZuaWwgQXJp GSi9sZ1CXctxGKJ6TEWUZc fuKXNhDH4Mq0jcBYTuaTEl HXV4REovvDUtKTXvITRoBR d0OJRuTHdszQUiKN5ydLwb NoickUwuu2JnmPVhKCctVK MsKGLkJVvtSOAlFK0BIhGq XDV8VLn2CGKzAFq4KMj5BZ 8QIrLuYHZqKHP9ZXG2MkHr IDt8WHqtRK8WQRJ8CMQ1JQ avNhF7AJA8QtEwIPSgUyBr XGYgQXJpYWwgXFxmbCBcXG 3cdNmazAWtxnAZQbCBMGC7 aXguXHBhciANClxlcGljTm VzdERvYzEgDQpcbHRycGFy XGxpbjBccmluMCANClxsdH ShoRauhdGrNXAjP5OaqxMg MVwuKIJjbg3ttChnEUblTz EcTVZfl8y8xMR8fCEivSD0 rIUqpYxyZlYwCG2giHTuEL 0cOJhmFPqvzbWsh5DdXW15 bWJlciBhbmQgImNlcnZpeC IgaXMgYSAwLjUgeCAwLjMg dYCkMaPmN23cwAQfFAvhRY mbx04sdYB5hKVzpIGmIsEu H78mqmIhGVWdlZnvDHY2nV YjQCOjf61qDHO2Mz4oyUWt CGHavlJ1t7MwYHhkVWPmIw jvOLNcZKpwsVHhTA9KF8ys vUDxEIAQxkX6jbfkCAxEYN NAIKCkINUIBDfpaVydyE0f MIrdjN3oAB1EHSZtFVjjZL WceDATDBE6GJ8tCElpqVNx erlqTEHbQ2HfC0RswuRhtF TkVGQaiqIik8lxLOF4BVCj uIZiaONuMkKwYqjoEGJ5JH mig3kfBWJ4UANucJVcgIZz FPswQwBsHquaDWKhQ5ZnU8 HshwA5XSo6 MICROSCOPIC DESCRIPTION h4oglVAeIJXreVR2BrTlZQ (test code = 3371) Gwr6cfv2NfrXUudEHrLOkx dXLedqYtkj93vMA2xU08FW 3lOHBwRxS9WYAmmeL1Omh1 EKYfOPIozMDyD557y0qba7 fsqeNjsUF8oJzsBNQbpezn YmJ6RNhsSJXicvosWFn7QA iaRSMgiOJ3ZAYyqGZaP3Qs HLRiWV2znhe5VQP8MVqwAL KyEyW0YBYmjIDoLWJgrXjo HLwob238HEU1CtOrLXXxki PfrKtcnT8cPvLvNSZTJMSt e1YsKIMxEFZucy7= SPECIAL STUDIES (test r7shtSLtUHLfd1ucLOLsiG code = 3376) FuZzEwMzNcZnRuYmpcdWMx OOweauPtLTbez2QgA6HsGl AwMFxhbnNpXGRlZmxhbmcx IEFrNHR6eaHoTEXoMDzfUQ UaRMkyFe0iaXTkeOtfRzMu KHNuv0amgiAOkujdaPy7v9 enNKBhMpF1eYLuLRvdU7mz xgKgtLWmW1WgqZDgfKh5s9 bjCbToRxU4kDKnOYcpI1oe erAnkESaPBBwEVi1zO50EN EryR7frTYsQKriunTvLjS4 IKxyPRQfPaX5FRBokUWyAU TrA2doAKBcAAtsXZEbHBns pGXwGPN3yJzdh4B8sYUfqX RjyCkrPgZhXaAdSxJBv1Le SGr5mNodV5YtQOZtOjF3rD QgUGFyYWdyYXBoIEZvbnQ7 tRuvyvFxn53anETjSFHzVV XaNyVljYrpWYOfPLBHo0Av pSeuSZA3hCt0hPmqCjgwMZ P7Rbb6MD6olg28wnx3jOsw DYDjmfdoQeM1JMqkWRRgxe fwIQt1TWhuNAPkcHP4LAWz tHNmK7RqNPJuVR4eleq2CF T7AJtcYHDpWsS7TIZeiNPo BGRnxLbsLYinm268IXS5Vu UjFX1qY0Vfm2L5wG3atKMf IWVouQYuCwHiSWWvpi5xiN OuBHiiq6NtRVX1lyK3wRTf zQGeBSUfSJ02Gnwtz9DaQz kwy1QuB22njHM4LTdzd1cz VS4rTeO8dvDaCAbel8klgB 2iMvS5DKxgUP2bXM7yEMFq oD6upxfuJRTcWeLzznikYY QczBwqekXiBt7rvOcoXRB3 JRrdJ8xksH0cSnL0BJxpW5 xeaP0yFWg1MQsnnDS4NAPz uB1yGA3vzeedn2yrTVlwIS rzWRUabwT2eqX9UBJinQEd S2YjbZ6pRAQdXE2nrjjyf8 xuRTI0LMpxYYDaSUQ0UmMs TARli9Zwiyr8JuRgc0DsdS NmOFtsM11jh826RPDlhbSf W7bxiLHhrfyvcOAfwlllPQ grmhL2PGAsSLWhAMjpTRJn XGZzMjJcbGFuZzEwMzNcaG ljaFxmMVxkYmNoXGYxXGxv Q6aoWrHsI3AtIIBeNtXpWJ flKWivhCFaqSJouYG4tN3l NU2iOWEupNZuU8NoDJInvr OoqLPxAUM9yJOnuKYhTP9u WJrzyJLcx9khr7YyQ5upqC jkbIK0QG0yILAnBSKnSCyx w8ZzlB5gHnbauVSbhnqnWQ xmczIyXGxhbmcxMDMzXGhp Z7rcOeTsXHIdkGhsCAekh7 NoXGYxXGNmMlxmczIyXGx0 cmNoXHBhclxwYXJccGxhaW 4gViJdCgAiUvwjIT4fSYIw X2hesYCdZLRfBHJfJ4xuLb VcuI5wdGhrFXtjQqHhKnEw PiNJq022hx6dGKGlzGDgom VOuGKztV6mCWwfJQdzZWno uFOzFWtvg8miDIXaw1w5yW AwWZAunyMeu1txKXswtiLq AOHptAUhpEBaSNXue68lYN cqjHvtgCclVLHuo1QyxIwp h1EiJpKaXYmah8XdA11jfX JvbCBzbGlkZXMgcnVuIGFs f85bd8qtIIZvCkT9lXCstI U8hIXmxVCmt3LtzHfuIVIj s0kdKAQsts7ntimanBUjs0 AmgK2ukplmFWnfmAGfcnBx MFOny9x5mBAkZEDjFHFwGJ ozzCu4DCYgq657jg9bwsP4 sYNdLWT9WJanRVMsJOTsll UgZXZhbHVhdGVkXHBsYWlu XGYxXGZzMjJcbGFuZzEwMz NcaGljaFxmMVxkYmNoXGYx LFvpI8bwLqIdD6HqMHYzOy TguYPoF3penJDwFSAzPMxl XGYxXGZzMjJcbGFuZzEwMz NcaGljaFxmMVxkYmNoXGYx AExeK5akVzVkP3YaDLYiBr IgIFxwbGFpblxmMVxmczIy IAtuedyfCOBkTBygX4neEm CzSGXbzNydWSqtp7QqEOCn ZMMuMqanatWfXNm8rvKoJE BhclxwbGFpblxmMVxmczIy TNzwjcxrPVJiDGdaY8iuEt PvBXFasTdaSOpku3ZrISOp XGNmMlxmczIyIEltbXVub2 ate3LtA0ikyFivfEY8MYUj N9vgiEBelKL5MGJ3lQ8kEJ tiqfVsRBNsw5RmHKSeWHIj SfS1tA5oMHX8StCAqHwlFW BsYWluXGYxXGZzMjJcbGFu ZzEwMzNcaGljaFxmMVxkYm ReHBIdUAeuL4xpUrKiA9Uc ZAOoPpQtaDztPRjxATn4Zb xwbGFpblxmMVxmczIyXGxh gxykDXSpIHggO4jiJwMxHN ZnkTldEArka4IkOJTwYEOz MlxmczIyIHMgTWVkaWNhbC LNNW75WQBnCJOjrYgncW1w rJWBDZJlupX9z6G5MLacQU XnWAw0JPhgzzAwFLSflP5z MDHlYE5kPIu0mzOnSQUsd7 OcWP1nBIMxhZXlARC6DDMy q9PbS4Ndm2FeIRXgGAZrxi 4cuaZzLlYLkBQpOIWsnz85 SMGqZU7tI7mpWRJjUGZpbp RbcPCoq7BlUAGogWU6aGCx VE1ONeHNi66uHCTwFUOIxw BwYXKdcMyzdIJ4ihP0zI1n LiBUaGUgRkRBIGhhcyBkZX Bfdl8tcjOuKRUjWZZka5Dw fJPoyRNywhApL9Anl6ElQV Kqbr96OMqhrXDkib21FB8y M1Bjs3DhpA6vJKwtUQSlb6 NftYYgwYHcAOLdc9AvH0hb jrueMQecyHZhsH8eXCPuIE s1TYLpk1VnWBOli2NeVvWe mgKlKJNyAPSdBJCewF89VG U9pVzczTnmjzPrXX5sPFGl rfTrTXYsFHCvnW5xWJqbtc HhXOFnumE5q5Q7IDmnHIIu jiBdFrvkQDA8xfBuexS8nM DrY2ltqflfPRfpYRTlk0Xr xH5luGJQaMIll2CcfNWdpS NDcVBrZC2cxxBtUH9yGNB9 ODggKENMSUEtODgpIGFzIH K7XTxcMouaKWJ8onLdSSUq z3FnLNjtU2olA39nrRjhqJ s0iXHhwZxkaSPadMDtKMOl vsC4g9O3SMDjn6GtusuxDG BsYWluXGYyXGZzMjJcbGFu ZzEwMzNcaGljaFxmMlxkYm CtNUMkHLocK7jeGaCuQdJx BrgvFSY8dJ== [id number] 16:47:26 Test Item Value Reference Range Interpretation Comments Case Report (test code Surgical Pathology = 104) Report Case: [id number] Authorizing Provider: Nathaniel Dooley MD Collected: 02/26/2022 04:38 PM Ordering Location: [address] Received: 02/27/2022 07:57 AM Service Pathologist: Gene Carlton MD Specimen: Cervix DIAGNOSIS (test code = [id number] 3220) FuZzEwMzNcZnRuYmpcdWMx IHtccnRmMVxlcGljOTYwMl jstbLrFKEmpPBpE6Alpdur HPkzGX0mGT2flMoyeMQaaB VjQGVeTtNzk6pie934vBLq p8kdUEMMsnthpVz0mCzdZ0 1ab2M8UaowG65xrAMpKOK8 TWBhGYVydUDrRLZyNNZ3FR UsfGPmF8tpRSRsXP8ganao JJtxAPmuCNSblPU0DMKdwP RyJ9YvXXYxUAdoBTTyeuq1 VkLiUv0nxARroFddNStyHW WkIYDmEVwpVQMcLuKlM3WK OokNQBGTIQDNJDUUOB9RR0 j3TJDmbnb2WKQiISURSVGT NiHJU0eLCKWNXmSTNXPEQX ZvU4GuI5SFMT8TLVOsB3AC IWIWIRBPXN2HKSErCMKpGR Bus91sDL77EUhnPXO6p9fp dGYxXHNzdGUxODAwMFxhbn NpXGRlZmxhbmcxMDMzXGZ0 bmJqXHVjMVxkZWZmMHtcZm 9trHArvXajSaPrSZCcb8qe wsUAqtesoOo8i3kzKYVtTn X0lZHwAGwrZ4lrnpNzsFHm SKUnEJc4lI07RPHaxU5jeK EsYUyvlySvSlL9NEqrKVQq YxA9UFOqgUPzUPSbS0buDZ QwXGdyZWVuMFxibHVlMCA7 uSozj5O9bRHdmOJcgYugQf AaByIePkQJg9IeRUy9kNoq U2TsTPEiVoQ7yLIhSKZuWR ocQGXhEGMxhaL3zV55YCet svI2yMPhq1Cwk64gp116vP 1izHTiLAT7PYSiWTTirWPb HASoRZY0ORRxzIQzQ1keFX HiGZ9haofiUEmdLGngCRTe iKE4NRFxhZGiV6UgYCHtLR uoTIYelji8YrTxHo2rkNLj iYumKXjht9iay1wntMPuIb a9AECcDgKwXtdqCNzak0Rf d0dmRJSoem4tHJU0vTQweM lbw5N4vTQmQNUzaBHuYAMb SC0dmRHfHZQhlZ5wwuknYF BnYnJkcmhlYWRccGdicmRy Ve4tfEfaRYH5BLocM7yonL 2gJsT0WFvlT2guoO5nEHl8 QDluGNFvfVE3ejT5BVCrrG IoA4KobG9vIFPxWF0qcvm4 j4ooCFT1GJvyBTAsGeJ4nd Y1EUOunKQdAMRdjOutPAzw p142MIE0NrQhQBJau5ZxW3 LccDfnV27jkUzyT88tDTVy vCczdG0thUimvA8tQdFrKg AlEXfrwGgrHG3mYMKiR2dv nPNfQEZoRZJqN2mqEqLbvR 2pzZwpBUkyafJpGUWnHiz6 VAWzmHVgURRvWoq7XTNjNF PqM34kdqotSVR2oO7td7yr z7MeWJmvTMT6IQSuy92uNG avkcT7TXdjVe85OFgjKAA1 XPorDKA0oA== COMMENT (test code = d9ssnBOuWYZjoAR7QsBvEV 7855) Fuq4brw6GykBEjzADqTDye tALcbbFsuz34kPZ2vO47YD 7wAQXkOuD1PODjorW9Dit4 YVWiMNYsxKXjB835f0ccu3 iaukEfeKD7zZaoHTBxtmbr XzY1OTptIGMlequiKOa4PX tsLOVocPL5TUXfhLGnJ6Yg FXYoLU7ozzh8TWI6QHlhWP KnUpP7NRPwbDXcHDUwrVrt DQkko847HRP6ApGxRGHwzx DrlRdesZ5aSoLfKKCPxQGj bVY5cXDwnCqmWQryv5Cgmq jjw0BrZ0CabxioACrlpIWl mcNmnaWpf7KeZJ2yIKmzWZ O5jI7gDIPzc1rnCULtX4Bk HX1yK6Zna5kqPSYzh3nvpq IxMTN5lEUgSKOvtqGovlEx RDS4xEKzqKUkrQYeuQIhkW Jim2IdoSP1vdXfkbEtkUO9 XWXnm9AuwP94FVZox05sNI Bhcn0= CPT Code(s) (test code k4ugkJQtDMVhfKT5NzZkTR = 3357) Pdu5bmq8OmuBPewEDbWOce oVQriwYrdq23nXJ7eZ42QC 5gNQQvQkK5VVCwkdA4Lwu1 YAKkYVVbaBEqP383o9axk0 bqsvYopMF4lDvoFZAzuyyf MkT6ICnhGSAmxaxwUIm6DY juQCQnxXE2WULxtAHxY6Zh LGWsVH3nbod3TQZ3KBnnMR VfRmO7TXMxxVXdEYKobSza DGobw026XQK4AjRoLMRnaa XdrZusiA1zDzGgCQM7APMy NVxwYXJ9 CLINICAL HISTORY (test u9rfuNOoWSCbkYR4NuHnDF code = 3356) Cjb5mal2FxnJYhzMRiNQyb pNXglzFnpn15pWV3jP37BK 8kHHYqTwG3BFEbgpT7Hsr2 EKAxQFUmmCCiA142s5ckz3 eskhWipKO3eSqtNUKhzbnk YnR0LPtoJWSvxxuiMEi4KJ hqMQTrzGW6CMCeyPSuL9Ru QNDeME7cjvi8LQU6QGhiWD KeErL8ARPzbNPiTZXcdDee MBzij166HBA0HmWxQEEvyo HbgDvsuX9vUhSvJIVzLDA1 Be2vFW1pKA5buMAgtbecci JmaaGznvVlxwGkhcQ0HOWj u2f6xFNKNHp0FC5hNApNII EgmpYxXnphuR0yoDpkaNRm CL47nQ6fdCArz1AvhHLfQY csvGpytsSbreSuXLtkrF0n nWmyZN0cCcH5PIildhMzIN XpQFAiyG2lOWEcl3zcrdJa YmRvbWluYWwgcGFpbiwgU0 5BPWKfhEbuuKmvWFAkLU0g q5PanfVdARMwHVVeP2ZuKW Lpi6QiTMP5obPlCIItGSE7 vLR2j16uvMcjIVOyEJ6bCE IdZTzhJACqHFjuZG0zQFLg pjRuU9XeCU3ej9Biu4e+b2 6hkY6vI9xjE7wzXLB9 GROSS DESCRIPTION (test c8vhkSXpVPIicZJFUKTeX3 code = [id number]) kofeFmANHlmFLjE1Gsewps NBooFB9tEH6tfUaguXFsqR IvAP0GPMQlHmPtECRdgRTa roPrCeSdJUDyxPJedTM7IG XhAV3apqftPIjxRXhcVILw zvB4RFGpuOHfU1IlKEYdEN 2khusdPDH7VPtdqB3oupWY IwpqZe4ewQXrnUcuLhTlTt NoYXJzZXQwXGZuaWwgQXJp IJq8nT5LXqkkMDT4WEZNLo nnIWHkXP5Pp9jkEGNhpEAj VKZ3MEzybYSeNSQeEPFxSU b3ELJbPQvkbAPbTS1dtKbi BwqayQnyk1FgnLJeHDywFU GtYNPmIKeaZVJlXK8SGxJt CGP9VXp2DXUbKIn7TFk1TT 4FObWqRRDvUQQ7OJM9AmFv ZMx7AAcfEN7LHFV1RWD3ZL zcIeH9ZBZ3YfXzIOHkLjQk XGYgQXJpYWwgXFxmbCBcXG 6vjIuyjDCbvnEONzXJAVD9 aXguXHBhciANClxlcGljTm VzdERvYzEgDQpcbHRycGFy XGxpbjBccmluMCANClxsdH OllFzfedFcCVKwS2RbmfDd GByaVIKjdl6qzHvdKEoqZd OkHJRyq8i9sWY6zHVmiLI5 uJXpqHllOjCfMR8llPVwIC 4qOMxqEXsjduMve5PaAR22 bWJlciBhbmQgImNlcnZpeC IgaXMgYSAwLjUgeCAwLjMg nRNdDiZlK42xaXLcSNeqUQ pqb80ywCD9rEEcwYRyDwGz S72zpeRsCINgyJvyNDU1cS IrRQLdn62pOVB5Jz8owPIy LLAihmR7q2XaEVmvVHBzKt aeCKNnQYdurVZaJU7IR8ta zKBiIXTValX8bjopIZbYYE VOHKOhHOAMZQgbpHkyjS8d QMofvE0vQQ6CQWNuLMxjSC ZxgFZPVFI1MF8qRTbcePMt obpiYWPzD7MeO2CxgzInuS DzFGYcpwEss1tvHDL0NEDv zLCsfTJuYkLsEcahMDB9MR vzl7ouXFB1ABEsuAYstWQu WEmuGfPhGesqRBSnW8YuA5 VvfaF8YXf6 MICROSCOPIC DESCRIPTION t4vwlZTlVLMujKQ0TgNkCH (test code = 3371) Vfd7xll7UktHCoqOXrYZev zKWqgwMtmk08nWR3hN66GR 9gYWDmEeE7NUFrvfQ7Bxc1 TBShMCCexLGjK096u2fnt4 atfkYnmFO5bUvjDRRkicoy NsZ2YRzzMLUfscuyNOy2FZ meDJNmqNG9JBCraXGuI6Je JRUuTT0iyjl4WSE1XVrkNV WbYxR1XHHqzVRfGFZbcYar JOzlu180VIT0PkJkZAUxhz UscZspqL3pSyVvCOERQSQk x0TwXQRtJBKfza0= SPECIAL STUDIES (test f5djlNCqUCXlz0qnRPGesM code = 3376) FuZzEwMzNcZnRuYmpcdWMx VDgcpcKyADuaw9UdX3RaNy AwMFxhbnNpXGRlZmxhbmcx NGJfXJX3quRbWPGyMDsxBL IxFDksDy4wpDZehTqgNfBw TVRgs2celqOGfsrseQj8v0 ueCHKlIpF5bMJbVYrvI8zf xnEmdDQqX9KdiTXyhUd6y1 laRuPnJfO2eMVdVHlzM6pn cfOjmJWdYQEoBZc8gE29TU CwkB4tmYRlAWjqfzFzOaH5 EQcsXYBhNmP0UANopSHiEQ WkU3bkRQYbNJqmZILpONqg cIOiELQ6bYycn2G9zEHvnW ZaaZbtLqUvWdNjCtEZl1Cr ACq1fBtoF8QtPVHfYqK7cZ QgUGFyYWdyYXBoIEZvbnQ7 oJywnjAli08htSGvFTDmDM ToOxVrcNctHLChEPUIj2Up tJfuJER7oAg1vUdzEiltJM K0Mwb8BQ4fcc72kyn6tDha PROjotldWvN5OWhvNAEual xqRDw4MUmcUXUrlET0JMXu rCOvQ6CzNJDmAU4nosh3JQ O5XGvsKNTsUaO8UPOhrBXd HYCeyPleUKyqo969PJE3Js ZwNO5jK6Nlw0Z0lO0vzTPx AOEkdGNiRiFnFZJqbk1vrV IjPRfsj9UaBAU8ncZ7hTGg wNPuOQOpZY09Feqkr7AjWd cpp6PeN83luEN4WDnub5tq IH2iClA9boZsLBeas6cgzT 4uQvF8VXgzXV8lCW7aBCDt aL3jzsxpXFRdIyKvpqzwYK GfhExpagHcRd1tyNidMEZ7 EPjtC9abpP8bCvD3EYsbL0 oleJ4gNPm2NYghqWN4BBNj rS1vNY3hwkcxc7aaPNgwJQ qkAPYromI0huG1KAVrcXRx A0LezD1yPNNgNS8pikixi6 qmJVF9BBlkMPBmMUQ8UdTz RGUlm9Iweiv9EvChn4BjtA DkDQbzI23uj992IHScniDz B2hybSHzdtqeuEHipqovJW disjN0PDTgCPZkAPtnZDAb XGZzMjJcbGFuZzEwMzNcaG ljaFxmMVxkYmNoXGYxXGxv W8lxDjMiL7PyDSKqBaDsZU peMBgbdFAnpFQctVT0gU1x VH9rYDCdtEDfV3TfSGNfrv JykSZuZQT9mLBorVKpOU1o UVemjKOog7ktw6MqB8rgjG hhkFL9ID0nKVBpKIKpXVmc n1HznA1rDebjuWAvzcygFA xmczIyXGxhbmcxMDMzXGhp P6trQnWxUWIneObzAFeto9 NoXGYxXGNmMlxmczIyXGx0 cmNoXHBhclxwYXJccGxhaW 9fTfIwThJuDdrsUY9dEKGi S1afwSEiFQRzOBZhC6jbPw ZayV9ggWtyHYhqDrQrMsDf AiJRu423fv8kKRFuuZGyum XGoNHvpT4aDRlxMQodIYcm iFBqDJtcz3bjCOYch7u7hK UcXJQwwdMrt4avTHsnekRf JZWwuWYjpRLqVSGgl56zQD fleQrdmLnnAYJqu0JftUau e1GyLwYqIJolg9CbT98dgB JvbCBzbGlkZXMgcnVuIGFs u87tg6zjSCKcCaD6sQXkqT W9tMAmcQEgh2CxmZfvLEZd f4laRHCqyp5iexfrhCXch8 OulD6inndfOZsmhKYsngVq ECCek5z7vTVyHOGiDBNnYU acfKb0CFRuw752ds5gkaE7 cXTfACY8FBndHCLuEZXlnh UgZXZhbHVhdGVkXHBsYWlu XGYxXGZzMjJcbGFuZzEwMz NcaGljaFxmMVxkYmNoXGYx ARxxH7jcJhPdO8SvTMYiTj DqoZDtZ1xcwNZcEOFuFHmr XGYxXGZzMjJcbGFuZzEwMz NcaGljaFxmMVxkYmNoXGYx EWvkS6joYrIiX5ZrDNWwHt IgIFxwbGFpblxmMVxmczIy JNdmnbdsNKLeBAyoY3hnJn QdXCEjjNygBLhdp1SqGWUb NDAuKfztgvPvMUh5iyGsIR BhclxwbGFpblxmMVxmczIy GHyamhtkOGOrUSfyI6qwXl XnYWKecThdNAkkz6TtXCTc XGNmMlxmczIyIEltbXVub2 owr8CwN1aifTqxoYC1RVUk F4bkoDCfzQI0OFR4kI5pRS dxwyRdCQUen0JyVZTkXSHz AdJ2fN9tJHT3YzXUdJdgMQ BsYWluXGYxXGZzMjJcbGFu ZzEwMzNcaGljaFxmMVxkYm PgMSVqXNzzH5tjVeJaN1Ns MZOcIaBsrAhmXXloAUm7Rd xwbGFpblxmMVxmczIyXGxh gtudXKEcTPtmP5lhCoNvRU SfkNhwQUnlr8LdEPNoISYh MlxmczIyIHMgTWVkaWNhbC PLQG25PYFzZPFnnZicvY0e cIAJAIGlhrB1r0P8IDpaRA XkKUk9BTfpgwNcRQMzaT5r RREhJV8zRDo3jfXsNIXog1 MbVP3pVJWntMAeBRT4JLJh j3QgU6Mza2VwLPTbKIMwxv 2uyaHrGrVXtATdCJYhmt03 ZCVvLD7nX4oyQKAcHQJnfz OpwZImz7BmWYOnkIU8rWZy GT2GEoQLo58wHPPvVGBRwl XtYJEfaKyszEO4bdN2xF1g LiBUaGUgRkRBIGhhcyBkZX Pymt0ebaBqDHMpTSFcr2Ii lFEetLRxteUfM5Zxx1FxSO Kgqz25AHskqUEexb66FN9m R0Rfo8GqvJ8hFUxoBWEot5 PovIQasZRjLAClo9YfC0tq xbgqQBjwaUHykM0aUKHrJK y6YYBwx6OeEWRur9QdKgJt zeGcSCFyXEBvDXJdcI98WT T4xSojmLuseuGaHY1tRMHw rgXjMHMhMODnvL8nDUkhmn MuKQNgasY3t9V9DAjqQHZq dxCcZqzlNGT3eaEmtxR2bO RmL5zjwghmVKyiENYun2Zj vN8qvGVXlNUyu6RsgSKgqR LGvQDaXI8afrJxDT6sTCQ2 ODggKENMSUEtODgpIGFzIH A7GDolZozuCON7wiSmWXEj t3RcYKybL4vqM80mwAygcV c4iEWzwCoqeQXjrBIoQQNd nmM8o4Q0YBYyq4XnvqzwSM BsYWluXGYyXGZzMjJcbGFu ZzEwMzNcaGljaFxmMlxkYm YtAXAwIVztJ5owFnUoGcOv AmwjLDM7qG== [id number] 16:47:26 Test Item Value Reference Range Interpretation Comments Case Report (test code Surgical Pathology = 104) Report Case: [id number] Authorizing Provider: Nathaniel Dooley MD Collected: 02/26/2022 04:38 PM Ordering Location: [address] Received: 02/27/2022 07:57 AM Service Pathologist: Gene Carlton MD Specimen: [employer]ix DIAGNOSIS (test code = [id number] 3220) FuZzEwMzNcZnRuYmpcdWMx IHtccnRmMVxlcGljOTYwMl zoffLcBKDvgDUsM3Vpggcf KKpjOQ9sGZ3dlLxzmHTqkV HoGTQrIyAfn0fkl038qWQr q7geGLXKdpwdiGe8nAjcV0 9iz9N8HtcyK90yuBGaQSW2 BOAhGHDdiRTbWXDlBYL0TU PjfTSuN9oaMMWnCU2zlkdz BYbsIOayVDAbtCI2DOGkmS FvE2NsBKZiJCbxDBPacho4 EwYuBp2ctPPitDlgAKrbJW FoKEFdEZmdYGFlAuKbC5EY BriMEYOHEBDMCZGJTX2YP3 x8IPAogwv1MNVxXZDEPWUH UjHMF6qWFMDYNeKHIVHLDD XgQ9PxR4NNTV7SHFWgN8LW VOPOCIBJCM5HPLJlYJDnEG Jud89oED51SFinKWE8b0kh dGYxXHNzdGUxODAwMFxhbn NpXGRlZmxhbmcxMDMzXGZ0 bmJqXHVjMVxkZWZmMHtcZm 7bsYUjmBvlTdHwVJZhr0gc djTKfwwnvBt9k1liMRZvJy V9hIUrVAnjG8juifFqnLDy SFZmRCc7gK40CWBanG6zvU QaYXxlfhBxGsD6YFisCMNn LkT1FTPkzKNnRCZbA6dvLZ QwXGdyZWVuMFxibHVlMCA7 dMogg8K6bVJcxELegTyuDa KgLzQiFwLMn2MgGAa7yJwt T9HxTGKlYeO1kBKtDIXnRF kqFENlAHFusxS3uZ48BTgh asP9hGBcg0Zue00tk343mA 1nkMIsDHA0SWTdUGUzoUGi RTOoETD4LJJxnDGuE9ykPK GpNB3jcmzuECodIQyjBAOq tLR4KEIidBAxL3SgFCXqOS ugPAUdagy6MvHrAv9frXFf wDzeJIaaf9eaq1ftjSTjEg h4PBLoKzRuCcfkDPhxo1Wh x0lfGRTokr4iGQR4cDLdiN mpk1H7iNYkDXRktVPaRIJl TB5mkDAcIBRqpM6trzbxRM BnYnJkcmhlYWRccGdicmRy Xk8feUnjYIW3LFzvH1bjnG 0bJtT9DUqlG2qzqP6bJFi7 OVynJIBjhZL8qwR9DPLtaD TsL0TjlL2jKZSaRL3rehi9 p7naXAW4VOsdLEUrRkY2qr J4PPAbuDTgYBNrqFvtDKrh u464LCW7CuAoCCHqj1OlK0 QznItoX92nmVtcS40kQXHj dGmgtK2arOwmhG4nZmNxVy JvVWsluOgmAP8iQBFvM4be oURsJWYdERRuH5tcXhGnbC 1zbNjsTJsdtyHeSCWbYpx3 ZVNgiMKtGBRxGxj0MPOuJW VsG46gzkowKGZ6wF6wy5el t9LvYJcnGIL1QRUro51fOJ dgsmA7UEvpGu69YLjgMUU4 FSktJRT6uO== COMMENT (test code = d7nzqHZzYRSpnZQ7YdBnVG 6083) Gfa3reo3QoyTEufKMnORkc tQUbdwLxlj56dXV0lA96UL 9gVTLkPhC6NXPfegY8Vxy3 YSQnGTWklUCvP997i6rgd1 zgdsDcyVD4jCebZILmnzeq GaG4KJswVOPxjtgaUWb2IF vhKBYiiRT1DRAgwMRsQ9Pq AUEnUR0nerm1VNA1VGkeJI QkVsE4UHVsxGLxNJQbuOvt EEmxt555QJS9SbWmVBRygx KoiKgzvG4tBuWpASHHbKKr tMP3vYUyxAymHPbhn5Buvl dgl6OeV4SvsgvqSIaurAXw xiHwbxVgb2KfRG4pDEsoPN T6yB3nMSHwv4tpSSXnU7Cg ET8lG5Pjs5rnXBBdk0jcdd RoMDB5sMLqHUPgkfOedrEu ZZN8pYFxgDFeuMRyzJYweO Qlw5ZyrJQ4ajJdmmEywJU6 EJOdf6PcrI61ERYxw50fIO Bhcn0= CPT Code(s) (test code m0umdYAgPTVaxHM6ZuGxSP = 3352) Gkj0iyv0IihFRcvBNlEHln nEMcrkLkhw38jAS8aX70LV 9dXRCnIkR7ZUTvqiT4Tbz0 OCHvMMDsyEBaS899e8rmh2 jrzpPvwEB6zIsfWYCdapbi IoF6NHetURTokyamALd9DD ffXQKotPH6OOXudRPhZ8Bw GYDjIT2lisi3RCF0IHmeEX SxZeX1WSAkgODyJVHvsScg OSujt317RCO1VpBwTMOpjy McrOzyxY9bIhHlIHN3KHQg NVxwYXJ9 CLINICAL HISTORY (test r5odfBVgIBFwdDY1IuYpKF code = 3355) Peb9cpr0RlwRXlsHRyRIos mARnowDeen93lZF0hE08FX 8mNBXqIpQ9AYDyidG5Aqc6 ZCCzLUNwzUJqW870u2psu0 obrkEqyDA1eJwfASTupgqw BmC7LYtjOQUzwzaxQPk2TJ jmMHVnfFE1YABjaSPwB2It BFGhRI8pzlu6QSF9GHydCK BbKtL1ANYdjAWoHHNfmKuu QOxtx386EBD8XjTkONBull XljMjpoZ0dFlGjJQEdOBJ3 Jx4uZL8tQG8beCIjmddkrj XwanNqstUsllIkpgH0FERa q9o7jXJUMHn1SU8nKJdGGM ZuhfYxKqcpjH1fqPbyyNVf WZ70aY9kiYJxf7ZxdFClCP dbwJosivKuhqUuLRjecP3n zCspZD8pGuC0RKhtoiWfNR RtMSApzU5xCOZna0cfhbNk YmRvbWluYWwgcGFpbiwgU0 5NLYUzkEjzmJywKEPpUF7q q6DqehAlQBEjWAGmU8EnKU Bho2XqRRF1thXjDABzPLR3 jFS5v08wzVioONJoKD2vOC SkTVenNYHkCXinHP2tXRCi gqRtL1AkEY3kh5Rpd6o+b2 9epZ8mW7jxX8hfZIJ6 GROSS DESCRIPTION (test w8xlaMSkRDFyoIQXGIAnB7 code = [id number]) iuryHcOQVkeFCeI7Fbzinr ZVogOU4jLS0uoNizzXFpoN ErXI9JPLLkUuCyEXLxnHPx esOtZoFfWGWfhMKneLS0OO PqHA9rpucxTByfNWwfVRQt kfO9TFCbePWpG9ZeOCCtPT 9pebvoGZC1OVbndL1vvjSZ UphhEi4elSMuhTwyMbTkKj NoYXJzZXQwXGZuaWwgQXJp NVl8vK9XQhamOVH0ZMGEIo qhPIYnMB5Qy9sjKTBxaXOl KFD4DLqbtIHtQHPcKTArOM h9SWVvLEyhwBRoUF3thXks ZtxiyPkhk0IhoSVrUWvtXZ AiLZQdRCqzKVUuZR8HAdOg SPU2RXp9MVKmLMz1QXd7BJ 6WRuZpSDPcORZ0DLH6BvNd YSt7ODatVX5FUJR2ULP3RQ cpYzQ2RBV7TbJlVXPyTrYi XGYgQXJpYWwgXFxmbCBcXG 0kiFpjhKQgvsCUIqOOOSG5 aXguXHBhciANClxlcGljTm VzdERvYzEgDQpcbHRycGFy XGxpbjBccmluMCANClxsdH RqmVflglNeDABmQ2BtvtDk TSdxUCJvgt5fiMulLCpsEi GqTMQpo3o5vUZ2fMDmhZN0 gPIhfVfgCfHzQT9zrZXcHC 7eNUyzKKteimSvq0VwTF94 bWJlciBhbmQgImNlcnZpeC IgaXMgYSAwLjUgeCAwLjMg rSBjGlGkP70qlJKjVNolPT omk04qfDD4fVPgqMKaVgKs T49ckzIrALGluLtvYRO1oR SwVGGyb42wBUU1Hq7nqSRx UHZkxmA2a6SyDUohQDNiGe oeSEXoUGsloIVwDX3GE8pb tZTzVBMPqoD6tpujMPrYKM ODNUVnBDYMRMukmPuryZ1m LYnldT0nWR5GQHLeJDbsKM VfcLQOKIA0RD2aELyeiRCd jgfnMHCfY4OsE7BsnwMadY QlRVQtsfDyf3dqVBI3YOJx iRFgbKFrPvPeXokpJND7MA hcq3wdOQM4DSUpsNYuqUKq IJtyGcKxAirqMKVjO0VcT0 EnxdQ4LOq8 MICROSCOPIC DESCRIPTION h9xccYLuLJJpuTM2AtGoWZ (test code = 3371) Syn7ucq5BmzKAfiVUfJOgk pQQmbtUxyd22nUS1jO42HL 1tRHCfCzV1RQEcdoM1Nly7 URJkPTVduJZjQ806z5bbq5 hihvFscSW6jXbwFYTrebeb VkX6VMezTXNygntxXJi0PK vzNYDahXJ5HEDjkGAvG9Nc RAJaLH9rsfx9OKA4WUbqEM ZcGvM7NMHiuJUxICKbnLxf LGmgp246JUS5GeGpJVYlub IydTiljP4wAsZrGDDDOXQg i1VlNXTyDKCwbz0= SPECIAL STUDIES (test x0lvqTJcDTQdu0vfHXKckB code = 3376) FuZzEwMzNcZnRuYmpcdWMx AXppowSxABcet6LaH4UqUb AwMFxhbnNpXGRlZmxhbmcx HSOhSRF5ygLbGPCxTQngKX QtAAieSf6ocHWztWbxHcXu QCImh0qwzdHPanpbgIm2h0 dtFYZqHlL6jKIyTQpcO3fb rqNaiMNfO5KsfQKbmEo7u8 reEpYiQoE6zZTkDUaxE5qo msNyoQZtMGDqARk6jT50QT LjmI3bdYTvNQgdyaGpAvW8 UEynCFTpEiQ0XWJzyUPmIR VbC7lrMCMcUVqrADTiRMlc wJKaQGE7aLxqq1I8yWVqjF FsqWecJlKzEtAhFeJXe2Ye YDp2xUakM4IrERPiJiX6hK QgUGFyYWdyYXBoIEZvbnQ7 wXklihUdp11dmAWyMJSbMU XaTmFviXdyJWQzLDLAn7Sq gRiiFHN3hUj1lTryMjceJW U5Efm7VJ8hrt59nvw5tRyw FYEsnnqnMmC8SCelIIHmhf luVMj1TRbpYLDcgEF1QWLj jJSxJ1JfJWPrJN0hqya8RC B2KZjbIHReQqE9JQPtqIXd HRVbpKxhBObng790ZAX3Yr VaJQ4fS6Vef2B1gB9woNRu EEUuvHSnKmAmYBAggm0lnU ScJQsqc3QsZQL2qmA9tUXv jCJsUOWzOD92Amjci7SkSm ptq0YcO65drQU8ZHvyg5ia IL7zMuL2roByMXost3eacW 7tIbG1QEboNB6iSD2vIHLu pZ0gphhwWAYtFpBiuztnAV JqvCkoaoCeCf7ypJatVLS9 KQclR3xroQ0uTtC2JPxsV2 wjlQ4gUGm4QCwekKM3YRGs hK8nIO1adrkxg4qcRVszPM svCKUxekX3djS3HYJsiTFr Y2IjhX7dCQWkIY9pacccr4 asAPP1PUyqOSRcHEH4YvLj GCHck0Glvgh2PtEgh2RjfW KiFHpsH15mb549LRHccwZc D3voaFEvhyjijZXfedmfNX ykpmV9IZAlFHSdNCobWTAd XGZzMjJcbGFuZzEwMzNcaG ljaFxmMVxkYmNoXGYxXGxv C3ixUrUmB2SjEVAuOlIfDT ocHPyvfBVifNIjuWI0gJ1q SA2hOCNxjLVgJ6OjDXItoi YdsIVyHUE6hBFeeRGeLQ2i XKxfwHEep2ydp0KeE5fejM hswKZ3AW9hXHTaYOXuAGsy p9AgyV1qXgdvtTWcrlatOV xmczIyXGxhbmcxMDMzXGhp H1fuYvWeEDDbsWesSDhga1 NoXGYxXGNmMlxmczIyXGx0 cmNoXHBhclxwYXJccGxhaW 0dMnWtIsMsUdvtAP4xFRLy N1dwlFPeZALgLXLyP8tuCu TixT1nyUkrSQjeIqClCzFc VfNVd207ad6vNPAraUIkgz HFxRTbdH3oZVmoSKsiTXtf qYLkOVacw2ruMCLzy5g1yA KqIOIzkbSkx4kiYDlzxxRa BUAbkVZzdKVoQUKos62pBZ fvoBgyrMxbZTRpl3SmiBsg k0WiFjXbVOulm7CtC45mqB JvbCBzbGlkZXMgcnVuIGFs f62ne7arPFFnYfM4lBOioB A7cXKxiQUaj6TftAjfYHMj i7obDDYulk4jpiwgtJEij0 SocQ5gnwvnSUmdmBLwcuCy ILMey1l7sFXqJHGgEZVdSY vymQz6SVKzy124ua2zkhU4 aXUoIJI1JAnnWFVpHCNnvz UgZXZhbHVhdGVkXHBsYWlu XGYxXGZzMjJcbGFuZzEwMz NcaGljaFxmMVxkYmNoXGYx JTpwE2crGlLcI8AjZYUqWo KopCYeF8rgcUKvKKIhZGqo XGYxXGZzMjJcbGFuZzEwMz NcaGljaFxmMVxkYmNoXGYx JBrwO7dcZeHiZ5EsOKHrNj IgIFxwbGFpblxmMVxmczIy VYnujlrxBDAwCRxxV6cnYd HkOSFslVbxAKikq5DpPEXm HSWrOwvmemZrLUe9ggOaJR BhclxwbGFpblxmMVxmczIy SWkgutelHHAgHXozJ4idQv HoPANovJkqRTpbq4LkDVLj XGNmMlxmczIyIEltbXVub2 ptw1VeN1xvePhxpGC6POFt O8jmqMBluCT2OYZ5bY0qBC vvglMkZPXfp8BcJLQyPMDq SlH4bG9iFSS9UcBWhKzbPG BsYWluXGYxXGZzMjJcbGFu ZzEwMzNcaGljaFxmMVxkYm DwNZDqRHjhY5ymZrLqH8Mw VJCiIsMlxYtzRAidELl5Sw xwbGFpblxmMVxmczIyXGxh lndlRMFbCHeeZ2asDyCzPE TcvPkfYAuzt5GpNSUpFHAq MlxmczIyIHMgTWVkaWNhbC YAWX74PTWgCDTxiDmzhE1g jTAUDHQfmjI8a9O9OSgvZA YkPYs5SFkzaxPqEAEhqS7t XDQvDQ6wVIc0kvJcADMmx9 IyJM6jMHRpvYWlEJQ5GNZi z0TtB0Qau5NhNAUfUHQjwc 1idiAfCaYNkIBtUGIsmt82 PYXaLD7gZ8leLRTtWPPdzu CghQWyn3HuKWPqtXY3nDWv NE8CSpAUk17tTTNbWJXCun UiSAFptWyqmBW4xwB3zI6f LiBUaGUgRkRBIGhhcyBkZX Ddev3zfqWmQLIpESRrj1Cy zESbeRJytvLsB4Zcr5JxTR Bfyg53XJpyuQOuql67JP4o S9Rys8WviP7tTMbrAEXal1 KlsNLdvIOuHFJrs6PfQ9fm itlgMEywwRPrkZ2vRZYfAS i0UAAdu3QqXATcq3GuUyYb eoTfPMOpSOWwLTSnlZ41XH O0dOhuwEzvilKwPM9lIKFa tnPkJYKtNIHxiT3xSNptzu BsKXSsoiT2o5H2PEzxJKIz dvLvNharTZD8xiGabbZ9vH CeX5spkllkVZnsDIHsm9Gn wK3qlTVNcVRmc8TfmFTbrI EDjGVwRP3vngLdAG6gUXT6 ODggKENMSUEtODgpIGFzIH G7OVaeNpgbHKS6ciDaARCw w6NrMUwzG9afF24isCzjoA y6sHXsiKngdGIzzSPnXDFr xzC0d4O8MZOpg0EvblswMF BsYWluXGYyXGZzMjJcbGFu ZzEwMzNcaGljaFxmMlxkYm VvYUZfLDutL6qhJrUxLcOf EchxPWJ0oC== [facility] [id number] 16:47:26 Test Item Value Reference Range Interpretation Comments Case Report (test code Surgical Pathology = 104) Report Case: [id number] Authorizing Provider: Nathaniel Dooley MD Collected: 02/26/2022 04:38 PM Ordering Location: [address] Received: 02/27/2022 07:57 AM Service Pathologist: Gene Carlton MD Specimen: Cervix DIAGNOSIS (test code = [id number] 3220) FuZzEwMzNcZnRuYmpcdWMx IHtccnRmMVxlcGljOTYwMl gzmyLqPLFdvGXpZ6Eowqje VNgxGZ6cSM2jnUpfkNEnjC KwAOYeStDtx4irj410cYRz v1fvCJZBdvxfvYl3uDzyF6 1ci6O1NqxpW91mjPWvVQS0 YXGgBLGaxRFsSSFnENK5JR VmkGCkQ9veBZJcWE0bokbl XKcwRPtuOFQnfCA6OWVmxY VrV1WaDATwMTbeTXKyidq0 CpOxOc7jmFFxeRzcJLmlHH FaURRbAUkyMFHdGpKvC4LC TujATTYJYGQOAQKUTR0DM6 x8IANattg7CXNmVIOWJZEX ZxCAO9pOKLZKGgTJOHFIZK KkD0AuZ6EHHC8GTHIxX7DG KDGLIHQOUL6LGGLmNJZqGS Gbs58yGT39SKkzJDI5s0lh dGYxXHNzdGUxODAwMFxhbn NpXGRlZmxhbmcxMDMzXGZ0 bmJqXHVjMVxkZWZmMHtcZm 7ukCQjiEwuLbQdZYOxu1px zrXMjrpmsWl8q5dbDMFtMy D1wCEfLZowQ9ncogZvyPZv XMLrLEu2pC90PZHtqS4deR BnYZahdhHnNjK0RPhkSRFe AuA9LZNxjPMcIVRkY6lzUW QwXGdyZWVuMFxibHVlMCA7 uFbae7S2xAWkaCGjnUjnXo BdAjAjDiHTz0YpGVk1oLrw S5CvJJStKbQ1pVRvOZTdQO uiZDJzFRKkwxZ6gC14XQcx axL0tTVwh4Rnn35ri765gB 9ipIZsNMJ6ZIIvMPYncSPp LKBsROF2KHAmjLDaB3svWP FaZU1inweuNZimHDshMSZk gCU1WJTzkWIxU0UrFWOzZW inSOYwpno1XeNwGz0yfYNc kTjwPNacv7coz9tkdFSePj y4YIOgUiCnVfjsEAuns8Ax o9moVEDkip9eKZJ4qIHdzT bqo8N6wRThXAUxcQGsCERe XK9xoSMvXYIdcY3ytlwqFO BnYnJkcmhlYWRccGdicmRy El9zkYtyUYR9QFefJ3djzX 7yQwZ5BSkgD6nvqY4fGAr8 ESnsNCJjvUW2shQ5JOGknK FbI9RnfL8hQTRpTE8hddv4 g5urDHM2YOptZHIuPdN8zv K5ICZgkCUaANFvsNwxTGny q037RAL1GkCyLRZpc7FjV8 UvtRmvM05gvFziZ33hYWGu dCqrtC9tpMrddM4fGtYkZf MrPXksuUmyUX9zYSRoU8ip gAOjSVGgHIIsE7ejNvMjzJ 5psFigDMmayxPlKUDvVta6 DPNtgVPkBNBnZlp6WHBtNN YaB52bwkbrKVM7oN7yx1za z7YyABbhAGE8VVWax23lOI jpkgK3KMjvKe55QHzaYGT2 JRidVLA9cM== COMMENT (test code = x7emiAXqEATixUZ0EuSkGM 3129) Ytx3zne0FanULtaYJjQObq vFKggzBsvw86jMT0uP69NJ 6pOVKgCdZ4HLSzdeI3Qbd8 PPVlYCWmhKUkD854e4fhf6 pzcbQgiXP0vQwaDUFmigxd HpM3KXwgTZPwwlokZRm3PY ilFUQtxVG3PXKngLRhS4Qu NORbPK4avqo4BVG0CHghBN WaStP9CFJhqGPlTEEdzLyu GHjja700VUO2RfVfDYGhxf AlpAnurZ6oWcBgLRIZrFEi tNF7eUOiuIjvWGdru9Kjqo ure0YeG7XtfnymKViadPPm epQjsrBph3EcZH7tEJqkPE K0fJ1nBXKly5olCNNrX4Et NA7qI5Anu9saOTEan4cqos UiWCW5qWKnMZQocsPqqeBa YZP8kHJfgRDoyDNqyPTacR Gyz4XvvAX9ajGzizIonYT8 MMRqt4RchZ13ZEOxj53fAS Bhcn0= CPT Code(s) (test code y3jwaCLyTGPiyZJ1KfDtIA = 3357) Try9hiu1AwmFYxbFFmDHge cYIeehKgif90iEA8vR79ZJ 1dLVKbIrO5RAZzptL6Yak5 OTFdTMDjwFBaU976c9zym5 pvfxRudPM7dVudBNDmupne SdZ6RJrnAWCvpggnQVj7PD luWNYueKW8ZCQcyMAyK8Mg RKXbXL6xlrw0TQB6CPtyNN IsHtE0JGAmgOAtFICsiXgh DMwai711TWP0WcDgJYTuyb BwvOhfbZ6sBoIeEPF9GGLk NVxwYXJ9 CLINICAL HISTORY (test p7supDDlMQVpiFW2BpCxXJ code = 3356) Iqz0rcv6WpuAWvkYJfOAlw dBVndnJjrw59sTJ2hO30DT 3vUMZkWaK8NJPgriS2Nqa7 JLPaKAHscVTvV446y7wnn0 fwjfZquZI7kLwhMISlsnfk SfG1XJcdCGKckuveMGo5AF khEIVamOT0LGFnsDApR9Ek GUGxKN2xbte0ARO3ZXjkJX JxTcR7KPLfuWXdNWRveHxf IEcuh360HFA5QrFoMEOsxq VduCyjqR0cCsXqKYYgQAM7 Wx2bXV2rYF6ycAZvufhnbk IizdWggvOxitJlhnV7JTZg c7a6sYLFMXd0IA5vHXfQZL TuehQuMxqplW9vnXreaWAp GA54qY6vwWGdb5VlfAJnZA jxoKcmndZuwfCaALagjW9z lCtdRB6hUfB8SBefhgLvDB VoUKDnlV4yLBLut1yasmSg YmRvbWluYWwgcGFpbiwgU0 3CXXDpzNvfbAvdJMPiDO3r o3OazuHrCHYtOZVeV8GhPH Vec2CzQZX0vwYrLOKuRLE0 gCO2m91iuWbeQBGcJU4pXD BkKPwtYQVzJGfvTH4qHWUc fiQcC0MgKE4uo2Jlz2e+b2 0caK2kL4efZ1tqFDS3 GROSS DESCRIPTION (test m5ijnWCkKOJupSZYRCLhY1 code = [id number]) vuvlPuVDSvuMSrT2Uqqica SNtaMD9cON9ooLidtODcdR VeRX2YQBXgLyOqPWXpoNSc veGjDcCfGNTxsRGkyZI0OF IkQG9heftkHWdcKZifAXAn lsW8SMCqhICwL2JmWELyYD 5oxjqqLDV7UFmasN7nvgEE ZkzvJr4ldIKdzJawZfOvLu NoYXJzZXQwXGZuaWwgQXJp AVr6xB6JAchcDPT8ROQAHa kwHLJvRX2Re7wnRURemNGo ZRH9BLdvnBTqDMEmCXAmBQ t0WRIvIIitnYYuAC5sgOsz PxxwpHzmo2ShgDQjCCeiMI FfBGGzZPsuLLEhQO1RZyWu INO9SHw8PCFhSYu4RYg2PR 2XEbUhSVCySVQ6SQY3CrEt PHr9CDjvUL7XIWD9LWF3SI xoVpA6ODR0TyVbFUKxAqMs XGYgQXJpYWwgXFxmbCBcXG 1mnLqxfRMcwcXOIgBMDBH0 aXguXHBhciANClxlcGljTm VzdERvYzEgDQpcbHRycGFy XGxpbjBccmluMCANClxsdH FnlBenupKnRRJoQ4BwqsJb FSwlALUwis3nzKctAGorXi ZnBYDia0t8aTU3bIElxIP0 hETegUwoUcGqCI5feUOpZZ 1wCLtzUYwvxqUey9OiKU75 bWJlciBhbmQgImNlcnZpeC IgaXMgYSAwLjUgeCAwLjMg bYPfGoTxN00jrVKpBJlzCW fnn41lbGM0nDZmhJOjWmUh S93tivExPUXobNuwUWG0sI QwLSHhl89aYEH5Jj6tpXEw UKFwpjC0u4PyMJeeMQOqLx aqPQRlFOwloHEpBQ7DB5vb iLTsSBLAoxU8mlfuBLoWSW NLYCVzRHCQLRruiYacpO7k ZJawrO2vKT1ZPONfCCkjNY EmwHIUMTK6SX1aZPjguBGv tjpdYMQyM9QnE6OwsaTkrU KoLVHwwdHmn8hfDQL9JQBf wKZmrZOwHfPmTikoEKD2MP evi0rbAUU9WINxqRSojXRn YLpzLcUqJcljVWSyC2IgT7 KavdI1UEm6 MICROSCOPIC DESCRIPTION u6gpzSFxEIIakCL5RrQuQP (test code = 3371) Exk8afb0SjrFKerYYfAJng aHBevsCmmc31oYV4kR64XY 4vDGRkCqE0FIYdufY9Zeg6 RMDtVPLhqALlV655r3ydk0 wafjXvrHP5tSjhVFHgpnqo FtG9QIzlALSdcpszMVr7GE lgSHUokKJ0JXKxdOYbP8Ks JWTtNB6osdx9JKJ4HGalUZ RsBtM3GFRpdIHdLPDxaAmb QFazo765IDS9SmPiRCAozd HfpJbksZ6jYoEiCEUTBVCa y3PbDIRgPSApwf1= SPECIAL STUDIES (test c8iqcADqELQfj8ysKURjoG code = 3376) FuZzEwMzNcZnRuYmpcdWMx XJjmvpYpVZmsa1YiL5SeMe AwMFxhbnNpXGRlZmxhbmcx EUHtTGT7xaFrYHFwCVyjFM MmDKqkUs4azOXklHghXrHy VCFge1tsxnXVkivonKv2j5 klGDYfAwD4lMSvEMbvC8xj vhUskOGzM7IrbGTnrWm2z5 teFcBgXcD0wISrQSriB8om qfPcdORjSBAnOVq0pU29SZ RriP7feQMpFQgproGrHaQ0 AXohGEXlYxM0JMYcaZGkMO QfT9tdNGLsLBxkVNDsHZlj gZBqPAO4eMpae3T6mIUqtS MknXmgWkTyWlBlMfFCj0Yq YZr5jNhsI7QrPHHjZaF4hJ QgUGFyYWdyYXBoIEZvbnQ7 zBbaleDiv78ceCGvYSXyUS AoNnWswKbcVZDfRWUAx2Ch wHzuFOY8tWa8sNspFzmyAN C1Vjm6EZ2ssf05pkn4mFle GMXbhwdrCnO6BHovSCBdfa xpDYn4KFhwDJOxfII4KVTg kAZhG4RgXHMtCU4pfvl0WI Y0NVamUNJkIfK2UNTkgXFa RTRkjAwuSDfqx376BIY3Dn JrSQ8hN6Ccz8N9dO9rxSNm VTJiqUAcAeHySJAoot8ntC ChRCpky5MjXVO4fyQ8jMYq mZYnCPGjBV30Jekwj6MdOf wqj9EkM00dwHL9FIkhh3ab ZL4zIgX1teUwMJslm7tcbC 7bOgN7DTqdDH2iVJ0bPNLo bQ6abuzeTUSyPvEppxeaIR TpgBvfinHbDu7wnEdkCJP8 AJkaW2wguN6bHiZ5FAqbT7 zojG2jJOg2MUxqaUI4EYXk sN0wGR8tzjpoz6jyFRaqCW dwEWFqydD3byQ7IKClyVOy O8MnkE0wCBUuLF0lydqij2 ycTAD1COpdYMHyEPS5YuPp NVWgy1Mwrng3UwDms6KcpC QiRBabP09mi055PQIcwnDd S3kpyBAnxxsywHFdxupsDO nsjkZ8HAYvLZJnVCouDXHt XGZzMjJcbGFuZzEwMzNcaG ljaFxmMVxkYmNoXGYxXGxv D6ftXuVnE3WxFAPnNrEzNU znDEdqtHQtqHOiaVD1nD7l CW3gJREruZMgR5ObJDEivr HenCYqROK2sRHwyNDoPO1b TOmrtMNpo8rgm0UpS5xwzE bwkHZ6OL5xQWCnFSZfPUnk y3AzjZ3oYevnwQDdadkuGI xmczIyXGxhbmcxMDMzXGhp E5uvAeHjIQLhnDneWLuzl4 NoXGYxXGNmMlxmczIyXGx0 cmNoXHBhclxwYXJccGxhaW 0kGgQyFoHxFofnQA8lRKKl F7loiGXrHYUrKBElT6ovYq LhdX2kdWwsWSwfBqVzSpUb WdCUx323sz5pQRTqrTElhm OXqPLglJ3eSVzpEYbsUIvi jOGbIAolq2fcMJOro2i8nQ TwBNYhbqTad8pvNVkwgnVh BOUhwCMzyEFvIFIrq18oAH ubbMmpfUwmVAOki0GivWdi g6GnCxQsZOmuh8DqN76zcP JvbCBzbGlkZXMgcnVuIGFs d06sa1khSWEvUyQ4mPFzrL G5cKRfeUIpn7AavXdbBSIg s8wiJIYlaq5omoqfgKGgu9 QlqA1maitqTKakzNAlsyVg CKZpw3x4aEOhNSJoAVTmDM ijwSk9YZKlo946am2xvnD6 hWLhBVY6JWwwFJMaWOYwbi UgZXZhbHVhdGVkXHBsYWlu XGYxXGZzMjJcbGFuZzEwMz NcaGljaFxmMVxkYmNoXGYx VIhiT9bpVvBfR4FrUIFnHv DjeFUnM8tmcJObNYYtZFdu XGYxXGZzMjJcbGFuZzEwMz NcaGljaFxmMVxkYmNoXGYx PQyjA6rbRoRuZ2LtRGTdCh IgIFxwbGFpblxmMVxmczIy AVhzhxygGZUhVOvwU4nfJv EsYVWloFraPRdkr3MySIQt GBHiAuwbwrXgOQo0msZwLA BhclxwbGFpblxmMVxmczIy DGihkckpVNCoQNneJ0htEs OuFSQdnWjwKZwvj3UzKWLh XGNmMlxmczIyIEltbXVub2 vfm0QdU3ahvZpygMZ9LQNj D1dwuLSgmYH4JHH5bX5yGK pkyuNwTRCgc9HdNURiQMGx ZcC5yZ9sFML8ReGMcNobOU BsYWluXGYxXGZzMjJcbGFu ZzEwMzNcaGljaFxmMVxkYm PrSLGpGKilD7eoDpLiO9Kc XHYkNeSjtKgfGHwmAPr5Zu xwbGFpblxmMVxmczIyXGxh qcgmICAdIJigA1zoAuPoCP SxwUmrWBmme8WnYGZiOKWx MlxmczIyIHMgTWVkaWNhbC PXQV91YWWjNMBkkWhidP1z sEEUBSAhuyQ2m2N0SCxpBX LfTPl8ILvjaoQtRTVczD3d IDDfYE5oPCj2nfJbYKSjq8 EuOI1hCZMtlBRhDDX8WFZq v0CuA6Ioc2OaFKSlJIMuru 2zjwWmDoTOgFHgFHYzle97 ITFoGJ0sE4wzLHYcNYLyzh NmcCBee4ZoAKCxeUO1oYLv MJ2PXfHYx88mZJZxIJJQvi EmVNYrfRodvCM0psK3jV5n LiBUaGUgRkRBIGhhcyBkZX Wrea3odnWzONWuSJTgh9Ug eYXmqVLnbfWwR4Lnz3VvDJ Ywqf36THxlbCAvwc70PI5o Z9Uge2NexZ9rATvdLWZzj0 LdoOJieJVhHRFeg6IvI4zg lntbNFvorSVbyJ8cYQSlGC m3DVApl5PyNCCyo7UgYfDs hqOqOGFlNBZwJLGofB31TH F9aScxbGzuzmEzSW1yCDEj cqXmCRMzLDDdpI1mDSohzn MgHNNxouQ8g1E3OYmrVGOu mcDsYtgwIAG0rpZpsyV2oD NjX5kzwpjkYTvgCQGxd0Jj kD2anMZYxYGbv5YwoCPgcM BWiHIvFZ1jtoZcNT7vDDT2 ODggKENMSUEtODgpIGFzIH I2FAqeBxzsBXB8flHuMDOb u1JkKVmfW1fiV58xbQywsV v4wGRucZimzBIiqYAaQJXe noV4a4R5AXMce7AmmswcCP BsYWluXGYyXGZzMjJcbGFu ZzEwMzNcaGljaFxmMlxkYm YiVFNvOXssB3lpNyTaJyXn YpvlWEN2bF== [facility] [id number] 16:47:26 Test Item Value Reference Range Interpretation Comments Case Report (test code Surgical Pathology = 104) Report Case: [id number] Authorizing Provider: Nathaniel Dooley MD Collected: 02/26/2022 04:38 PM Ordering Location: [address] Received: 02/27/2022 07:57 AM Service Pathologist: Gene Carlton MD Specimen: Cervix DIAGNOSIS (test code = k7nyhRXsDCSyf3qlVPCijQ 3220) FuZzEwMzNcZnRuYmpcdWMx IHtccnRmMVxlcGljOTYwMl utnsZiIPEsoXFvW2Uaxmpl XNgeLH4xUM5mpCzgcXJddY YoVJTdKbNix4kht240qFIx u9guWYOKtxqovIu2eSlaN4 7zv4Z0OdprB94shDRsEIJ8 LWEbBVOtrHJzTIYnGQT0SI ZfnEPiZ6fqTPKhZN2lawyw WLqtZNvgMATaqKV6NAUtfM JyE8ErUSQtAOvtOCIsyaq1 PcPvNt6etCBzkZytMKmfOZ PqNESdSKyiNTEkBkDvE5LZ MbvLVTRGNFHRJAAFPR8JP1 e3DSVbxsn4XKJaEXBFJMQJ DbTHV2lEYWRTBpBRBRVGJZ SvU6XkU4BWKW4JKSMuG8OM OCCVKUUCCA9HGVGiDJEcRT Bwf04mHC03EYxkDBS0l4mt dGYxXHNzdGUxODAwMFxhbn NpXGRlZmxhbmcxMDMzXGZ0 bmJqXHVjMVxkZWZmMHtcZm 4bnMNyyQhwKuQtKAYce5kr zhSLosdbxGv3a4eaPKJiUh H1eDQhZJhoT1jstqQwuYKx OYVvMCt3xT63KGLhmU9heQ UcIReppwYaYeM5VOhlEWDe ZhY9SLPtjNAgKHGrG1owJV QwXGdyZWVuMFxibHVlMCA7 sEaqt3D3eNYbdIAoiMxvYz XgKbMtYlEKe5VmLXs7sKsq E7VdNXQoCzC1tGEuHBWdLI owEIAtCERczyB1lH99BAuv itE9bCJdu4Rbw86us937yL 0vzBFmFAB2UNSvJJWvmEMm LGWnFZJ4ALBehZBhY6pgTY JdZX1aocnhYQiaQOzuDRWy zKW4WKUcuEGfF7YeMYLcFQ lpSGKlspy4AtPxBu9cyNNk wTaqQMnji2epp0xygBHmCv k4GFHqRlDxOpspJRpux4Nf x8upNMXrfj1cOZM1jUDrtE roa8F2eUEoUFOmlIQrOUYm CA8epRNqVTQtfW7klqiuDM BnYnJkcmhlYWRccGdicmRy Ut3wyJzfONJ2ENurW8zdxY 4mXdP2ZUhhO7hlkV7dCKd6 RDbtUYTxyOE2ntK7JPEbkM ToS8QdoY5wRJAwYG1gvbe0 h9uyQWZ0LBidPFRfRfX6jn T1VEJbwHAlIIChbIifVUsf u449RNW4UwEyFAVja5SwL1 XqrEwsC51omKnjJ04oLPFo tIstbB1rqMygrC4jElBvUa HtCBugkQqhTE8eKNYcJ0de xULcCVQlGFHeR7kzKnNzvQ 3mmGcrLTityjBhHQLdYuc7 FPUoeSIwPHPoJmh3BBBaFO AmG57oryplTHN6iL0ps9fa k5OeIYwoDKR4KJFke30vHI fwjhF1CPpzRu78PKqhLTZ4 LMytNRI4qP== COMMENT (test code = v6ypfDNaGJBgzKP5IjUpHS 8775) Tbu2bza5RipQCwoPMvFAqv oNFxisFfhq32mZV2hC25YA 4dUHCkImZ7KFSnheU6Eje9 QMZbGRUsiKCmH687w4zyp0 igolDoeWT3zHsoKQJyekwp QkG4SXjkYPUskdtiTHp9PD smHOAriIH0ZMAvjVAoR2Zs IYRxFA5ehgt2GUY7HOyaZD MwXxC4KJSvkLNiOBWbqVfa ORkql908BZW9XpSmUXTxxv QouAcvsP7kKcWzUCMAiHUh zSR3hTFebTabRPhdz3Txrj jom1DpV9RzvzcsTDypyYEy wfAjrbCss8LeMI0cNEzhOK E5fB9oMGUfl7ptFENfF1Om EQ6mD4Mqh5jwVZQki1szim HcPLU7oUZwPAJyqeInrcKh EMR6pCDcpLFyrZLruSMblO Pxn1OvdGP9sfWotnTmgXM0 JKTkx4FkaO71RLZpn09hHU Bhcn0= CPT Code(s) (test code y9qspKJaZDHapUX8RtMfTO = 3357) Tmv0yqt4IvoLJhwIPkKXlr bMTpgoHhpz66vOB2yE52UY 7vQVPxPpC7WOJdwtS2Gcp9 USFuCTVfcNHfY606g3zmf6 qgxmOwlSK5xWoyJYVfowzo KvX9KQgdPPXsnnqzDGt0OC rfNRAbaFG6VOCduCRuG1Um TYNtYI1dhrp5VGW8USyjGQ ZqFfQ1AMVtdTHuIVSvbHfx CGsbo854CWI8WmRfAIYzts HxhDdhnH5mRcBpKRZ0DTHc NVxwYXJ9 CLINICAL HISTORY (test q7edxSYhIQJjeXT7RaEiTP code = 3356) Ifi0tgg7PofFRtsLOlOVmc oHNyliQero29sRW8mI64KE 7eCKPmOcE9YBMmbuD8Amr6 DUPxJFNegLDxT109p8law4 ifdgTjoPR0mNivAUVjcbaa DmM0YEayGBPjuxsdWBh7PB cdFDLzpSI8JYAhnSZqT9Th FTHlMB3pimb6TXQ3DIliJK TuPiX0EDZamCKxXBXmaReb IJytg649TBT1XlItIOMjgv RgvYwslE5dFzNkKGJaWDJ4 Un8jYG3nBF1zqYMorilhsd QtczJrulUlvwEsctM4QUQc j5w4aEIKSOs0WW2tEHmRBV BnrfClGqpllV9laQcktOPt KH82dQ2tdYFhb7JxvVUmPJ qeqDmbvyJtoiYvHTcbpB2y cPbwCK2jCuU4YElckxXmYV GxZIFyhS0hLIJds2iigwVi YmRvbWluYWwgcGFpbiwgU0 1NYSZsxUhxnJczCHWbEA9l w8RxssHrDCRqCMLqL1EtKE Ypd1IgOCE9jbGaUOKmXUB2 hWK6v14vnTjaPWFxYW4tTI VzXSbsRCLaJZejMQ8dXUVn slGgS8BtUU3yl9Jua9j+b2 3onS6wH3giC3tcNNY9 GROSS DESCRIPTION (test d3bzrOMvKZZuoIMQSZTlK5 code = 2320714721) wdjrCuAYWksVUsB0Aqpccn LYytMV9sKL2rcLvggIHgoK PaCV2CBSIfXtMoCJNbkEEb gmXpOsXtWJVthSAgsTA4XH LoKO9higlsPWbgXCndQAOb mbR5CIAljGFxT2CzFXVmIW 7xowzzTWX4ROvloG0rimOM PoqpMb5fuYZliEpxFwJsKx NoYXJzZXQwXGZuaWwgQXJp YEr0kR3EBauuBWL3RRGBXy vlDRFmGP8Ma1ttBWXyoFVz XBQ9VWkitFKeBGKlQSAcUR y2XPTcCWjetWVhTQ3fqFdi LaacsLvwr6VnzUVuPTlqYB LqNNUaVWlmZQDsKK5BAqHh PXS1GYk1MSYaACj5RYc0HN 6TLgIeCQWiRHA0IMS6NbLy SVd4IZpuCP0VITM4UMR2IX boPaX1OZT2XcEvASAwXhEk XGYgQXJpYWwgXFxmbCBcXG 3qlNapyXOasbKDUaJZKPT8 aXguXHBhciANClxlcGljTm VzdERvYzEgDQpcbHRycGFy XGxpbjBccmluMCANClxsdH WvvTuagkHuZJNbK6CdoyWq CVvbKPPcmd0hjAgdOXuhJl SdXXGey7e1iET7uNEoyEL4 kIExbDjuSqUaGY9etSZrKF 2iTUlwTZpokwGiv5XhIA16 bWJlciBhbmQgImNlcnZpeC IgaXMgYSAwLjUgeCAwLjMg pPGrRqOoN36ypQIlRWiiSO xqt64geIL9vHXcrIKpRtAd Q01smfHsJQRqxAxfNDR5hF QpLMUjm05gDRU0Ih8rkTTv CLYgbpJ6x4OeDFysJDBpNy vuVCAzWIzcvBQfTW6CB8hp uOFxRTHLgzO4ocgnJLrFWT QBXMOySOMZAZieuZpyiK3q CSrfsA5gNJ3RVYYnHQfqGR TkzMVBDCN6MI3lENdgkODo amiqVHCdJ7JkK3QrueLslL BwJFQgjiVdm9shRNF1ISTl uFYzrKVqHrYnAhnqXRD3HV vkh2ddCNS4UIWytEFqwXAn YDpjCmTwYcsmOYSiF3NoQ3 AgjqV3VLy4 MICROSCOPIC DESCRIPTION m5dejOEeGEEnrNQ8FwKgIQ (test code = 3371) Guo4szk9FafQUftCOyKRdo dIWdrcUejm82oIA3yZ57MT 0mXXHkJkN9MVZuiyV9Xod9 NMCbSRTmhMSkS692f1gbg9 glnwGwsQF0zPbsFHFmbjft XqG1RMasFTArcswrOSi1DN vpJXEggCM2WBUgmMYkG0Eu UFAzRU2iryc5NWI2QHhjWS VfTfQ5JACfcKFtSGPitRfx HMpsk470PXX7LdSlAGGzbi NbuJwpcU7fHtNyXKVARZFq r7MsMCXzWTNmpq4= SPECIAL STUDIES (test d0ykhNEqWRMut8aySVKcmS code = 3376) FuZzEwMzNcZnRuYmpcdWMx ZCsfvyYmXPqjj4XbE5QqLo AwMFxhbnNpXGRlZmxhbmcx VFOlYDE3mxNyNKVyPXfmKN BaDDnlOj0sqYSkoCmiSsLv BJIrm3bfokPYeygvaCa3r0 lpHBAbCaN6kWNcGVkqU2px ccWexQXiP7RhtVHxdEe3s4 pnGlBpQqF8iUXqLMmwM7jb imJomCWgFRQwSFj4rG21ZW XraJ6cjDMjFWgzlkAnLvQ0 UBvkZFYrHdC4RBQutXTcYB AcO5tfZBSjQIseMTGoSXck rKGgNMD9cSphz7H4lJErvE LhcKnsZxJeKoMhDbKHs2Qb NHs0eIatG9IwZMXfSfJ0kM QgUGFyYWdyYXBoIEZvbnQ7 mGbdfyXwd42riNPlGTEtMD XmLhOhvJhcQRPfHBYBv2Pz xWfkFCL0sIp1uEthNrofOW S5Nnw2KF4uil71uvs6oQhu BPBgkndnIvY9AZhuXHEkns fwFHn1SXjjPWWxjZF1UVBw hECjT4RyTHAqJW4ezfl0SO B7WCvmYDKwSyD0RTIcoHXi ARHytHfzXGrur466VNW0Af UtCY3zL5Jxg7A6gH0zhEXy WBGqsBThTyBxPBTbgc3ppO NnHJgig1RnTXK8miD5eIUq eWNnCNIbYC05Kejwq9CtOu ibf7SmO53rqYM2ARmwx9mz KD6qPvB7wlSiUUcnl2gogF 0tTwS3FNqkAJ9fIV7lZNXt iM7vqpkfDUAcLwTpbmvlLI NkfOlthnAmOj5ioBtlQNB9 HFhbV4sjoF7iIsZ4QJjlK0 qaoD1pIHs5XAsemPN6KCIp vC1mTO7rfwtra8jwZLesWB snZRGyfyS9blL0ANMhvDXt H9KslD6eVUYfTG3ltgfcl7 wdVXX8GUpiUPOxRRE3MaSb MRUtg6Usjjc5SgAfv3BljU DePOpkZ34oh152BYLpllHz S9uwgIRawliuoPTmzrurWA tqjnP1UJDsWEQsDTeoJHYo XGZzMjJcbGFuZzEwMzNcaG ljaFxmMVxkYmNoXGYxXGxv M5sjWhYcV4DdVCErPkSkFZ tdFTghkCXvcEJldTG6pM9o EH8wPQCkhGLlJ0CnNZUjyz WfwYRdPLW8tBLsnPPnNV8w QDsrvTCjj3jzl0OpT5qisP xtqAF3SV4cZHKwEZNrDAhh f0DbkS9wLrzvhCJydtriGR xmczIyXGxhbmcxMDMzXGhp L9pmFtKpFRFfiObgNDsvt6 NoXGYxXGNmMlxmczIyXGx0 cmNoXHBhclxwYXJccGxhaW 8xAmDbImMoBtofTA9xDQGs P9kkoWJnXFIjMOTaF2tdBb XufD7zmBnmTNqtWwDoEeMj AaOTg406yp7gUQZthTGxss INwGLlzD5xRGqqLHvnJCik lGChOUtaj8atQUKqn3j4wK QuIWNfxcGci4dcWLpvumIx NQWzzBPaaTOiFIZfo04hUI gujRilcIdqMGFcn3XucUfy d6TqMtSjXEptw6SnZ37plW JvbCBzbGlkZXMgcnVuIGFs n71ea5ywNGMuUvB7lUOxwO M8mVUmjPAox0NsoPpsZBCr c0mcBDWonq4yscvvvGYwc8 UylM1cmynfBOyqsVQswkYq HYKcn8t5lYWqMMPbHIVcGK hktPa7WROlt905fp8vrdU1 nMGrLNN9GXcoVPZcRORaph UgZXZhbHVhdGVkXHBsYWlu XGYxXGZzMjJcbGFuZzEwMz NcaGljaFxmMVxkYmNoXGYx KHekQ7msLzWzN5FlAFOqRk BksCGzH2fgkZZiZLKkXVrh XGYxXGZzMjJcbGFuZzEwMz NcaGljaFxmMVxkYmNoXGYx JEupQ5mfXyDjX7QnVMHwRp IgIFxwbGFpblxmMVxmczIy TFfpglowVJAiCYxmB5amQq AbMVOinSsdPHmxm5AtOPTv HSKpXwzxjgGrSJx1lpBtQD BhclxwbGFpblxmMVxmczIy PGsdmbbtNFXnAIoiG6cwFa SlGJGpdBmoSWqtz1OhEEOr XGNmMlxmczIyIEltbXVub2 uzd3RmN7kvwLbjsEE5TZJf K5bpvBOyrWE6ZFE8vA4uMA fcreNvNYQee6FuUIUeKHOs HyS1fH5nIXL8TrSQcGagTM BsYWluXGYxXGZzMjJcbGFu ZzEwMzNcaGljaFxmMVxkYm RwUHNmTEudG4mcTzDnG3Kn GDGkMhNqtNogBSokHBx6Up xwbGFpblxmMVxmczIyXGxh ubtlUHKxTAklA4wdGfSmFQ JjxHfpRRipf3LwGVWxOADl MlxmczIyIHMgTWVkaWNhbC FNPO60FXUjRYTokTuepK6a lZYKCEAxkaG1p0X5LAqiQP QsRDr8XGgqxoPfEBSaaE6y KSGlKW3pJQk5qoWwCROmi0 LuUA5mTRXolWHnUEP6POIr r6TtD3Ngw8KtJYHfIDOzqb 7qcgHsRmAMtGGeORRfuw31 LWRvOG2sO1hkDXFkOBImub InmZBsr0EoUKMxkGZ7hFCc CG9SKaYPr24bJXVtBLBMho MvJFAofIvpxHN7djD6qQ1o LiBUaGUgRkRBIGhhcyBkZX Qjjy6xteQjABOrUVLdz8Fq qSVpsRFxgiGtY5Egv2GwOT Pwst21ZEtlbGTtsw59RI0d N1Deb0WmyJ5tHEkiAEYrv9 GcsIRfoHNsVRPfp3SgI4kg ajcwOCtmfVTveM7nKCUwRK x4FJWje9GxZXDvj5RvGlTg biBsBQDaRAAzGWNrnI26FV V1tPmcuWffntIiXP1xCKTj jfEbCWOdDPVucN7aSSnlxq XhHUDnbkY2x2K0ZEncSTXm dkJoJqnjYEN2gvXzqzZ3lA VfF9meqzgjBOraVEYeh8Ys mF6stAIAmFRry8MjkRZsvI KCoIDiRS6dxmHoQW8dASB0 ODggKENMSUEtODgpIGFzIH L6GYuqVlqdFWC8ycFsNVUe r1PiBKxjM8tgZ86ahMoxuS l1uYFwlUeivIVmyKViJROk rkJ7s6F8IKMkb4ExaogjRW BsYWluXGYyXGZzMjJcbGFu ZzEwMzNcaGljaFxmMlxkYm MkFRPvPGtoN5ovZrAiRrJo QegxXRK3oU== [facility] [id number] 16:47:26 Test Item Value Reference Range Interpretation Comments Case Report (test code Surgical Pathology = 104) Report Case: [id number] Authorizing Provider: Nathaniel Dooley MD Collected: 02/26/2022 04:38 PM Ordering Location: [address] Received: 02/27/2022 07:57 AM Service Pathologist: Gene Carlton MD Specimen: [employer] DIAGNOSIS (test code = [id number] 3220) FuZzEwMzNcZnRuYmpcdWMx IHtccnRmMVxlcGljOTYwMl tjvrPjQYJaaFUyO5Xroeov BIdrNR1wEH6voAdpzJRpaC OrRSPlMqEyz0dib167xDXz k8ttRQCMoywrmDw8rUeeO0 7nt4P7OvkhJ21jmTYzNJZ8 LOEdLJDzwKBvLJLnIDQ3DL YxwXWsR3kkLZSuGS2mrkrt AGndWBfdEJZwjPS5ZTOonR PdR3SlMSKwMZbeEXMqiak4 JmPpUt7bmEHvhRohGWqtCN IuGCDtXRoyLKHgVmRyE7ZE CmdMOEBKZNMEBMFWEM2KC3 b0RJCpajt7FVHtBKAZFTRT LdJCL3rQHPSPUkRKLOESCL WkH4DfY8YFGC7OHBHqY7WY AIZHGWGQYF9OJNStXUXeHD Ver65tBG44NDhrEFZ0j9xf dGYxXHNzdGUxODAwMFxhbn NpXGRlZmxhbmcxMDMzXGZ0 bmJqXHVjMVxkZWZmMHtcZm 9slFZefBgnXdPxIHEbp1ql qkSWrpnukZs5p1giXBEdDm K4wUKlTUwxZ9vnlsFwkJMu BKYwGIp0aS42QQSogM6huV XuVFcplsLfZrO3CKgqADQf TtH9JZMyyBPzGGEaT0orEV QwXGdyZWVuMFxibHVlMCA7 mNrrg4Y4qBVrvAIneWjjLe DzRqMgQjYJp0ScEMf0sFko B5RuHMErSqM9rMQxEXYcXB obCIGrOVFzbtM2aY11POrt maO9rCDnc7Pum61ul851yN 3orIVxSBJ5IPBkORNqdCWl DLReLNX7RQOlaYLpW8zlYR RuWP6lvydcKXehUTzxYXMw tBT5VYOspRPkB7KyRJYvHV doJPYfsuq2RaDaVt7gjDRw uHjsSEiyd6vtk8mjpUSiPa i7KIDnGvQdSibhRZcaq0Jf c6wyBPNpam8wKVW8qXAlzN fas8D2oJZsEIGjwZFyIARe JA7tvPEoYKLbgH8jofmcPN BnYnJkcmhlYWRccGdicmRy Xj5wdLcrAIJ6GUxrE7zmeJ 0bUxB7OTmnN6sucA0lITf7 YOgvLOMkhEL0anK6QEMvpH KwC2CiaW8eNRKiHW6olxm3 z1qyPDQ6OZkfKHQzSvH9uo J1CGGaxYIoGATlkNqeZTsu d937QCJ4EqSvESVcp9LxZ1 QqoFrfO57buLxwO86lDDBd nYikxR7sdJjflE5vIpWnXw BxGLchxTsbIO1fGYKvW7ay aIWfQMJkJGJfW3yiYnZwvX 0zvYtzVRvsviBdQIIiUtc6 BPLnpWNrNPXnGrw5VACtMZ GoQ91ckfgeOKC1xE9nv4kt w6ZbORrfNOK4FRWyc72yEK cqljL3RMcuBd08ENtuNXM7 RYqvXFY5xF== COMMENT (test code = o0ddpLOjUMFjjNH7GpPnTF 3352) Xru6jfs7LzcYYtvIWxLGun aUBnhgTknw90qNE8oX95UT 5aNLEnKyN4GUJkltW5Gqv5 AOXsIHDecYJrO007n5yrf7 hwsiMvrOP6jKatNVTwodcy OmO4XNbcQMVouvbgHGw1NM wlWEChnWX0BXWghFDmH6Hc XXZjTC6pwhj8WCB5CFnxLO UoHgH7ZDYyuAQxYOQwqQfp XIuwc729ECD9HaCjCXGzxf YqeGlskK6kWyXyWQUEiWPr jHO1vDKixOraAXdxe2Efzd hjv0LvB3HhubgtZKbloIVj kmPxfgUdi3DmOZ3tWXcvQL N0fA0wTVFtc4ncLYDeV5Dc OK5xK1Vuv5orJKPoz1unvs FzQPZ5xIMuCFMadiFihfHb HRT7bGNirIQahXZlvVTleU Zop9TaiEJ0srBpvjMsyPK8 PQBpx8GddF05MAFlk63vKD Bhcn0= CPT Code(s) (test code v4quwQKtXTHnwSX0ZbOtRJ = 8698) Eha7kyb6NbwLBxmVXdLLsu yWRngrHzwu30iWQ7tU70PX 3uDXPsPnP7ADEkcpH4Ggt9 NQHkMLUnuIAvL221y4pbc7 zkjnScjLY3xQxwYDWsvsba SqG6AGypVXStkplqFRn5WN dyQDHcqER8OJTzsUBxI1Tx YWKsGL6omne0WDL4PCcoIA OkRiC0PQMfpSNiKWRqbFvy CZnhd256QYH3LhGhGCKnay RzmZbzjW2mAeKfMVS3EKCv NVxwYXJ9 CLINICAL HISTORY (test m8fhlWLbASPciFL1NyDlZG code = 3356) Mxg4fms5ZnwWQgfQUaYUsq iDCxtlZklo05hKK1hN71BC 0dDWXvOoB9LOFfbqV8Ksf9 RHSmDNNaxLUvC444l2csm6 ncikPoqMG1jUhcJQFbjnsu IpF4TQjgRJUtfusbKVs2VK zdWDGfyCR4YKQgmSGbL1Lr SUJoJH2qwyg4XSE2EBqwGX KsYsL7GQJjvEHgNTGqjBfj TTjks695OTY6QlFpBJHodx GlfWpwzT4eFkCfFJMnIDW9 Ae8cSJ6sPV5spAValmwtdl PzajOxgeCwvmQoqgN0TBWn a6s9eWVTONi0IT0iLVbODC VuljOwCgbclP3xtYysmPVm YE54qN8nnGEjd6AkdPGkZJ jgcJisgdBfqpWwHFhtlH2z nDlyVL1fDeD5WFtjyjKfFL QgBJWfzL6zWXZnu4uuefJa YmRvbWluYWwgcGFpbiwgU0 1GVPYysYxnrGwkKDKzJM9d v1ObajFhHJHlRWUpT1EfZD Sbv7DcGLQ3dwEmUJByEFW9 fSS5a02stUulOGYkRS0jAO IuKVzsSUVjWPpzFN9dXMOe frYxC6YwKC2ma6Ysk5k+b2 1efT0aV2mzK0uxAUI9 GROSS DESCRIPTION (test u8zzgRIpGFJzdDNQSUDpY4 code = [id number]) cljwJqUNXivIAcT6Jfijef WJpxMN4tSP3uyWxepSQxsS KzWW4KWLAjXqTcCEOptOVw smLbGoJhNZAdmXRcrUD8FH QfEM8yzmriUNjeJGzzQOGg bcO5GBAsvCZiZ1KwBNSkMG 0yflkfZSR1XQfozH0sxoTP MskkUh4afAQpsCsuDfNyZj NoYXJzZXQwXGZuaWwgQXJp LLx4tM0AWpsrNVL3SFKCEi qySKFhSS9Bw3tkKAGqqGXg IJK0DMvcyJDyDXJwXCMfZI f3PXCiAKflfBFrYF4oxQdi IhoogCgtd0IfePOpQOeaQW AqGMJjYCeyYBZyOL5HFmDy SCT7NSu3ATLoYBa9JWu1ZQ 3VZsCvHEGvZAK4WIG2DvYs HPm4TVarVZ6AXTM0KCJ0VP zxPoV0JIA1IoYmYEBqEiPr XGYgQXJpYWwgXFxmbCBcXG 4lxAdzvJIuwtQNSkSSBJM5 aXguXHBhciANClxlcGljTm VzdERvYzEgDQpcbHRycGFy XGxpbjBccmluMCANClxsdH SgqEwcjjGoCXHzO9EnawDt VFvwRYHwhr9khSzmBYdmTk CsBCVll9p5mQB0aUCyaNM1 fNRcvNayJyXkEX3bqJXgDB 6bNKpwNLwdkhHmn3PyUV37 bWJlciBhbmQgImNlcnZpeC IgaXMgYSAwLjUgeCAwLjMg mHEoWxNaA69uhGDzTSjaAI jcx01ztSC4jEFybAAkNtMl O97jnfKhPFPmaVvlEXD3lO UfBBJxu17jXTM2Xy5tqFSx MVMzmlF2f6RiCNccGWPyGr gtNOBrCCyjvAXwJL3KL6pd dHVsRAVUxuZ6eenfXAmJOA NTZCNiLEXBDGmbcZjztJ6r RKqvmD8vTF3LMWGpOTdrHF EssCZHVZW4BO7yKMocgRYy auazARJjO1IpA6UimkNsdV CaMSCgdsYcw3utNWL0JBDu lTFfqQDcAnBrLdqoNTC5TA srf7fiEOW4DYGkpLTlqCMh BLalQmAnUtoxOVZsT3AwE5 WtjgL1WGv4 MICROSCOPIC DESCRIPTION d3fyfOZpIAMjnMU1JiRcFN (test code = 3371) Wij3glq9UuoQZcvCRdOQgj hPCdukDrkr38aZJ3bO30QW 4lZRMjDxL9CFRzquR3Frj6 RIOsCJFfmAYcL841i6mfc4 cxzoAkfJR4rRjmFKMskyeu UxF3QKfvEFMcqallTSa7WD dbOVWpyUF7AFTyjQAdE9Jc ZXWgPT9puqv9ZQU3ADsmLF CvNaR5HQLrnCZxABSyzNxx VMtow097HMF0SbAoAHGdnx UteJmpoH9hKfDdFPEPLATz k1DoOBDqUTOdfy7= SPECIAL STUDIES (test t0hrxGQnBAFyg1syEMKziP code = 3376) FuZzEwMzNcZnRuYmpcdWMx APyidtPwCOnuw8KgC9HrVy AwMFxhbnNpXGRlZmxhbmcx VNPiILB3tiHqNQVxRQzfQC GmHIddFb2xhDVolKvyWrOe MBSub5rkehGUtmwlaAe3o7 wzXXLpDqX3sEGvYLtxB0iu ehFitKWrD0OhwUJjmCy3h1 cyUeVkNlJ0qTOvCFasF7rd dpLaiYIaFXXfWAf2uN96TQ XssX7wmQLcROvnsiAwUqX2 DGyhWDSjCrD6VAZpeYDmMZ ViE6qhNUXbYGkbDPWuSFsr sXOvDOH0wNwue2A6zMVqkS PerFxnNcBfNkQtQfROt4Ve OVl2rPnmA9TfSPJlHsR9wY QgUGFyYWdyYXBoIEZvbnQ7 wVahviLxx43mpQZeKATcZL TgMxQooNauNYGbVYEOm7Px zFdvATP0uKw3yWiyUqpzHQ B0Mqt8YK3czy30ata9yWrt XKQouvsaKxG0GCqbKRLvon jdADb9ZZloSVHaoXS1JYZr pUKrN6TpAFFgCD8rapu9JS X1BEufIWJzChV2JVXnfCXp CVWydIvbEBytn550ZDC4Mi BjMK0gL1Jij6N7jY1dcAPk RBIftEFmExVrGOMuqh9vlC LqZTeku6PmBSS7mtD0uUGd iSPkIUZkEW34Bycld5TnOt loh6LtP44aiFC0PKtng7qr OE0nLoF4rvJoJQvkj6ftuH 9gFmI6QYaxYF0gPO5pONLk gF9qbtoaEMGsYgZzqxknDO NvqGftrfUlHz0onGnwNUU5 ECbiB7dvyX4gIvI9JDdbK7 yhwA2eWJy9IVutpXK5EMQh rL2nKF1tcumrf8moZSkmLF brPIOsgbP7neS6TXGoqEMz T2CluL8lJXWbYZ2qadbtk7 hjRMY6NPljMMBcQML6LsWx CYVnm3Wgpym3KqEuo0UsyV XjCVpyW85ba224RJXndzBp V2udrOFzwrumeCPxfieyJQ ubhkA6EXWsTJEjGOlcPWSt XGZzMjJcbGFuZzEwMzNcaG ljaFxmMVxkYmNoXGYxXGxv P7soKqYvB0MsOWIkFrAnDY ltSZzhkOVkrAUqaNB6oE8s LG5yHYSprSZfU6DfQZUuko RasIHrXRB5uSKgkJLbBW1x HBfwiRLmt0eoc3AsZ1ptiP fvqBP6MP2zPZZkLYPnCSzk y8HdkD9pEzujcYZplgvdTX xmczIyXGxhbmcxMDMzXGhp T0poMcXmGAKtjUprSIxmc7 NoXGYxXGNmMlxmczIyXGx0 cmNoXHBhclxwYXJccGxhaW 1iRqOoPxNmEmrsBX5mVUQa G1erjMDpNXRsVUSzG0hbPy FcyW3xkYckTLrrBkBgLsFm VdWXr525af7oSASmiWBvld HXaVRktU3xFDgsGGbhOWpf eWFpDXidf5epDEKla2x4fJ DdDVEycvCzf8gpITougkLl LGYsbGFnoKMkRDEkp61jRM jbhPbheMwvPRXox5TefLny w0OmDjQpLGsxv6KqD08osJ JvbCBzbGlkZXMgcnVuIGFs p76ti7gkXWRfLjZ8eKCrvG Q6yULqxKIkg0MivVruTVOa c8stRWRnnc9sqbsfdNMsi7 SvuC6earoiWHxeiPSzuePr WDVxd8i4lPVwBSXaLPOhSV cctPu3JCAyz434be6zaqS4 yYEwQRE3IDkyTEXpJOEtno UgZXZhbHVhdGVkXHBsYWlu XGYxXGZzMjJcbGFuZzEwMz NcaGljaFxmMVxkYmNoXGYx GYthY8rsAlZkD4DbBRNfNb DbiFOvB6xigNEaPNKxJJad XGYxXGZzMjJcbGFuZzEwMz NcaGljaFxmMVxkYmNoXGYx MSckA8hcUfSwZ9VzIWJlVu IgIFxwbGFpblxmMVxmczIy LLwplqxtSXRxAHqfS7dxJf OcAAJbmDsvWGdjl8ZqGWBv QLOzKqfmzvJgXYm7ioWlVV BhclxwbGFpblxmMVxmczIy PPyiydenAWMtPJggY5blVu ShRXUdmSgsEOaih6TwJWZv XGNmMlxmczIyIEltbXVub2 xss9CsH6zulMszlRX4BIMm Q8mjaJTygVO4DDK2wZ9iUA iiheEsWWTdc9WbWQScUUFx VjC5vN4oMQU2EhMTwXfzFA BsYWluXGYxXGZzMjJcbGFu ZzEwMzNcaGljaFxmMVxkYm UaETLdSOsjB0crTzNuO8Fa QJRaEdSjoRdbQCtmNUg4Qt xwbGFpblxmMVxmczIyXGxh tnszPACiLTpqW4hdAoXrGP DbuCpmFBtsy9VdGZQnNLPt MlxmczIyIHMgTWVkaWNhbC SIAI97OINwADLqgCqpwV5e eUTCSCLrsxH1m1X9QCdbIU RvCWm1YSbtanEaDCSgyK5w XBTwHN8xXXp1voVcVDTdr2 SsUO0qIXEeaTAfKMZ9XZYq s9SuG5Gwm4AgBYSaBAQgbz 4frnBzCsAYiFZmRBRjfo95 CLApCF5bQ9fzYLShWBBlgt LqjBVxd2PdNOCrySB3bGUq IC3GIwAAa96wJKVyAZWUfs KvLBVwwHeohWF7laS2dV6g LiBUaGUgRkRBIGhhcyBkZX Exle9unxWqUIVsJRRdd4Th xDPtuJXzgvNiJ8Dyq6ZaIG Mcxe24XQzzeOQxrr21ZK0z J1Gbp2XjpU9mRSxpTSPwj0 ZdtSWiwOKtJCSvu5AtP3ug qbawDAxqpYIodO4oJNUxUX t3AOBnh1OtZSNei9TrBrHx tbJqEJSxKXCiQQQtjD36HG W1fSeayGefqgGbYG8yCQCz swAaYDIsFSAciA6wFOrdhb CvPHXowsC8s8J9QQhjJHZq zwOuNsunOHE4xbIshyS8tJ HxM1xsdiblHBcfFWMca0On hO0qsQDQkTEuu8WwcREkkB MRxMRjGG3xtwLuOY5oRWC0 ODggKENMSUEtODgpIGFzIH A7SHjgWdhrECN7daHvOHWv k0RhJZpiQ3reK60ybInzgP x9mTUngYivaJTmiBAjRPQf viW4j2E0MDYde8YxqfnpQS BsYWluXGYyXGZzMjJcbGFu ZzEwMzNcaGljaFxmMlxkYm MsPZXwCSpxU3ppIuHeMpMh YnjzRIX7tN== [facility]issue [id number] 16:47:26 Test Item Value Reference Range Interpretation Comments Case Report (test code Surgical Pathology = 104) Report Case: [id number] Authorizing Provider: Nathaniel Dooley MD Collected: 02/26/2022 04:38 PM Ordering Location: [address] Received: 02/27/2022 07:57 AM Service Pathologist: Gene Carlton MD Specimen: Cervix DIAGNOSIS (test code = [id number] 3220) FuZzEwMzNcZnRuYmpcdWMx IHtccnRmMVxlcGljOTYwMl mtyoGgOWYpuLFcZ3Quilil GHilIU2hVY9esPauxDLyjE MgRIYjPgXjv0joy977kAOf r9qeDTLLfqgdyKv0rMejR1 9jj9H3SiesA01caZPvYCT3 JMBfEYLqeHLsOPXyANS4DS ZleTYpZ3rkMWVdFF7obekv VGvaHKxzANQqaFU7JZWeuZ YpX7QyCOMcVGpuFVSadkp5 LlXrPm1wgYIctDwzPRodSO BjLSWaNEccDZSiDzXmF2FM OcqDYZHAPYHNFBNRGF8WO2 o9DGCajlj8IIMsPHRNHFPC QgSMK4oDFSHVOxTTOWWPMH BbW5NlM2HAWJ4OWBPhU1EL ZHWMWQJZRT9XXEGpRYCdFV Ute64xOQ48NClgUJV5q4ij dGYxXHNzdGUxODAwMFxhbn NpXGRlZmxhbmcxMDMzXGZ0 bmJqXHVjMVxkZWZmMHtcZm 2fuOQswGrdHdFwAGUrs1vv yzEBpyklkEn8j0scSNJpIw C0dBMuXFdaL7qbbtLldWHd VCRgNId2hM70JCIswU0rcB YrGHezyxXpBhZ7DRcjFXEw SwY4DMPizVKbAYUaY5yqEE QwXGdyZWVuMFxibHVlMCA7 qWblw6Y4oSGzyZEzpYpeAy MtYmBuPxMTd6OaEZp3zTdf T6CrHTLeSaF8qOWoSPOxGO nfRCBxXYNcmgP8dE58XWjg mcK6uXBfl5Fng99wn131nQ 8yoGEnELA5YDYmWESmaTFb BRMiZFL3YOCetCJpD8wsBC JfIJ3esxxdAJlwNTeiDXCk zHZ0DRExeRMoL9VeOHExIW gcZHYiwfv0IjXzDi6stUCy oLuvJYenc9ply5vcsDBaHb f5BGUkGaVoPegwEUazo9Aq b9toOVJawz8rCWG5yPElpT wkf2F4yDKpRCYctHKoOPWe QD0jwTYpWHPsuM0okcrvOH BnYnJkcmhlYWRccGdicmRy Jj5ifHleSAE0EGlsX3ripD 6pEjD4FPmvU3yhkB8tACq5 ALhiJXYdvJL5huI7UQValI RjN0EniK3aPDDlNB3lvni7 y3edHFT7LRpsXWNaQrZ5qk K1TTJdgXGyHIMtqXduGPek r753MAA0XoZpAJNfx8LoS9 PrmYrkF50wyWdwQ83eOOZi xJqmoN6brPmliQ6yWdTxUo RfRVxaaScmSG6lYBVvL8oq hYRvCYHuEPVaI8akAqYjzV 8edRxtKRtompCbLIQcRhf5 NDAnnRCkWVJzOlv9KZNcEL TfJ81opffsUXF0yI1gl7cn m9CdGEatOQC7NAYbp83rNJ rpxrU5HXqeSb17EZyeHDT3 NPdsTUB0sP== COMMENT (test code = t3azaLNgVETbkBI9UwIgZR 6962) Sfa5soi5DmgTUuwEKwNZdn sEQpgpOrhy60fEZ6pR43TW 2fTSXzOqS0UBWsujR9Dgw0 PTOnHWFqgOLeL516f2nhi3 ldzxKicDD4yBpjZTHuspzu QbK9HHpiVTXgkanxGGo7HU ikJFBgbQJ4WNUksBCkX5Cx YUAuOT2prko5FZR8SAfeXR VyGvG8CRRetKOgNNZhjFid PZfmx399EDO5GhMyIXPxai IiaVxonV0vDbSzXIAXcZPk zSV7yFQjjBdjGSfdq6Bmzz zaw7EzY4PntdqwHBekeYHl zrPbiyZfs4BjAR7rLOpgSX D9fH0nTCMtc8hqBLKoH2Ji RS9pO5Rwc7fgJMYiz3wuup LwPBG1jAChOWUekiIubjMt DMV3pVWkwWFlaBTvqZEcyN Nho3FuvJF3vmBgtkXweJB3 WMQbe1CjeE58EOJoe14kTQ Bhcn0= CPT Code(s) (test code y4tvfBPcJMLloSI6QuCmXA = 3357) Nqu2agl2AplAJiaGQrZZjc qZKhhmIxpy87fTG6mQ77CR 5qXWDxBaE7BQRwcuQ0Hds0 XYSgKWMurZIzP431s1pww9 wgojXdyTM7sSzaLIHmjmhi CeD8VBhrNAIjdambGWu7DY upUJUtlFK4AQWzoGZdW8Lv RGVoOK8labi1NNE9PUrkNO IsUnV2MKIeeRIdTIQrcBzo HMqit262EHL8FpHbPJZdnr EtsXtepZ4mXkClQYJ0YPZp NVxwYXJ9 CLINICAL HISTORY (test o2fszIQcCTUlrZT6UqCtLH code = 3356) Rwx0wet7QopUZkeLWbQXze iSNibsSmwm19oEU6uM30IR 2fZFFbSmH7ZBApukM0Qff6 QPXdTTEvvQHrE332c6obg7 yeikKdxIJ3tMvvBSCwezpt XqT2JRgaZTVwpfpaMLy8VB buOJOspUF2OUQjxZYnZ3Wh CDPzAN4utgs6BQZ4SJbrBZ LgVoT8WALsqWIdGHTrqVef LUbyp385TQG4ZiIfWXDnav CybLdogP4lPdYwEGYkXNW5 Bx7zTN0tGH5tjEZhsnzijo PwrmUfshKndhKymuX2SGYu z7s3mDBDRIx7ZT6oCZxFXD ZdwiCkFhepoN5fhEepeUFd BA98cU2awHSpj6AwrSDlHU uvuUzvzfEaoyFmETjjyU4d sTteYC5yGdQ1RYpshaIhDG MlJFNdaT7wHRTnc7chkaUh YmRvbWluYWwgcGFpbiwgU0 1DFSHasZiakZtgONPiMI7y v3YaafFwHGFfAUPoC2QqWZ Uwm7QmGAF1reDkYKGwTPB1 yXG7n67vkDqwPUJyUF9eBP HaUUxqAZSuGAvaDO3wPEYv qnDvB3ZsOT8re6Fna5y+b2 9nlO9yQ5kkN1xdSOE9 GROSS DESCRIPTION (test q2mdlDTrNKYqbWPGDITcN3 code = [id number]) iyxkZeDEFlyQXiI8Vwagbk ORzyRP9aNF3wsEylzNZloZ SeWZ0GFVDzTnEaLYVrbWLt rzFvCaHfMULrpBTboNX8RE WtGH8nntocAOhbVMezSBEx yaZ0BCQzaHBfV1BdCKAnJF 8cuvqqALI8RUnpkR6sdvQE CphcQf9tpWVbjKkmVnSxQp NoYXJzZXQwXGZuaWwgQXJp TIo6mV9UChboPVH9SQPRFc csGIOvSS5Vd6xcFLIsaIMz FXW1YWglhFDsIRFwABTyHD s3STNoHGsqpBFaYM1rzLhj TfijjQfao8JjsENuJZehZP IiPDDsDIscSNQqYH3BSzXk DJN8UNn6ZJGiUCb2OPr6GQ 1OOaSzTUFcJZF3FWP7XyHq CFv3KJplCV1TEEI0VRW5LZ chWkT4AZN4BkOeEZSpMwEu XGYgQXJpYWwgXFxmbCBcXG 9ifFrhdUZypaVEZgWJALP3 aXguXHBhciANClxlcGljTm VzdERvYzEgDQpcbHRycGFy XGxpbjBccmluMCANClxsdH DgfOobvtNkMAJlP5YilyMw SIxcYKVsyx5gpBakDBrsFv DhHJGpb0b4sQI4yBNxvSV8 hIQewIwjWbYnXT1zlERuBJ 9jDIsrZNtzryNcl6AcRB21 bWJlciBhbmQgImNlcnZpeC IgaXMgYSAwLjUgeCAwLjMg dJUeQkAqH17ztZUcCCemNV ebd12xqDL9oOPspUZlRbEh O94poyEmSZKlqOyiDAA9zD XeFVHlx30oYRT4Ck0icOIx UUPpvuM3u2EvHCmyQIPlDw xuLNUkHJizjVUgDT3LX2hr jVCwISERnwE7qvofVEmYSF OJUQBuLEPOAQvquUyeeP9a HXqnnV5qWL6MFWIdTVwaUE XytVIWYGG2QV0jLWwwdZYw hptzTEXvU8PwC0UomhJtsS OdRKEokuZzg1raQPH3XHHu pDWefFPnAwWpNhwuJOF2LU ydk6zeSFA2CVFzgFLeqMQi LGyoGsGmVvinYDHcW3OaH4 GdtbK4VFf5 MICROSCOPIC DESCRIPTION x3wilIOzGVVpkQL1UdCaCJ (test code = 3371) Rej9ega6YucFJcdRNxJCbc sGDvqjFftq98oKY7eM18ZK 4qLROxDmS5FMHtsuX9Ivb7 BEVeCPDdkTAfS925m4gso9 yxtcIyyKV5bPouPYRyjrrj VnP2UFruWPMbmnifAYr0PP kpDGXxlUK2LYRgyGJzF4Fy ZNBhYX1szfd8ZED6PZmdZN UwOnV2TMZowLMcYPIclLab RTdxq438POE1ZoYkFCNeme PrhLvodK0xXvGvTBMBWRHd c1CaFKMjETQurc9= SPECIAL STUDIES (test h7hnrVHtDQQaz2ozHBWezV code = 3376) FuZzEwMzNcZnRuYmpcdWMx FVofiqIlAHfpm7GdO4QkKh AwMFxhbnNpXGRlZmxhbmcx EANkOHY2foOxLHLtCZopNI UeENzeFa4efNBghSpjPyFp YNVnt8mpmrWJrmfcmRq8b6 alAGKmOlQ7zZAvBGwdJ1ja xvHcpXIyF5GsjGPnbGo0c5 fvTnGqIsZ6pHNrSBxvS7ez diEsnTTrHQFdYFy8xK75LF IkjV1ceQOkJMajxnYwXwK9 WFogCDAoAjS3SYIzsCYhMF YzY6mtGFIoHFoaFQMvKXvg sBHuTTL2zAvmd1O0kBVmlP AirQciYkDgOcIcXlQMu6Rx ZPr9eEurG4GbMGAjUgD2jJ QgUGFyYWdyYXBoIEZvbnQ7 sHlymoPxz33zoUFzGIAeZW HlPoEggFezIWZvIVBRk3Gn kThrUXV8gDu5aOhxRylgTS C0Qid4KH4yip68qhu3tQvp NOFvlareLoD4EScaTRJqpc ozMMl5OUmxPDKqtHZ1LBPa jDLaJ6IrVFGiPB5alzy7RU F0MPpyMCRwWrM3MOZjpRVm YUXwfPrjSNpyg412NYP4Sz SySS8aA0Wly9G1yV3flQLq PZJmnTZsLaEjXPVbes8fuS CmNUmsr3ZtVWD5jhG4yNHz kRBqYKGoQV75Xomzv7ZyTi ajr3KyE61tvSJ3ABzfr9bt OD6uUaY4ztJwDYgnd6cvzB 8tOgG6FFzwYM9vXE0tYCCf pY0hskkoRXPhQhPrrwpqYX EkmWidslRoWw0xdPwrGIR7 ACcgW2sdsY4eQhA7GXvhW9 ytxY0fTXi6DThknWB9FSRl gO7wFV7ymlscn8uvUBgsDV rnXURdgqK0icQ3ESFepFIi X5OpeD4yZWVlEW1uglnbw4 whDQX0VPjzGGDtZZW3BuXn AHLle2Hsbye1GbZwf9CwzQ HoTIivQ62fs700OVCckzPt R3ulfJXysjfhgAIttzbpQJ rpgnW6CLUcYLCoVVhwEFFi XGZzMjJcbGFuZzEwMzNcaG ljaFxmMVxkYmNoXGYxXGxv K3yjNmMnQ6OsVRAyYaCoJE lsOOvzjMScyLYkyXF4uF3r SV3lKCVwvRGxP0PyXASsxj YarKSgODQ5xNBroPZpMM1g XBwmeLGey9akj3ObX1bxjI qlpXQ2TF4iPDIdKMUsVNha d0HkrX2uNoyrxBXimxfdXE xmczIyXGxhbmcxMDMzXGhp R9xhFjIzEXFliGqmNRrgi0 NoXGYxXGNmMlxmczIyXGx0 cmNoXHBhclxwYXJccGxhaW 5bTlLjBsYxUzhhNO5aRTPn J7hkoTNoBMXxEYTuV9umLv ElbA1zoPdzXGroDuPtBxWl XlHOu044jk1uLKSeiCTkbm MCiMZbfH3dHBptJUykVJio bBGwFRgji6wwTBLab6e7tC IkRKJhohGny7xxVJqxjjSl VPXhjQHaaSAhFKUde92tFF uvhIfbpQpxTJJuh3HvkIun q1UpSvRcPWlwf4ZrL99jxV JvbCBzbGlkZXMgcnVuIGFs x12uy6rgFRMbVjQ8wYTvrH K1dSKzmPTpf4AlhEatZRVt z6feCGVxpc4xmcpapUEqs3 AabL3uomciETvqnAUlabDi YIPdq4i7hKPbMRUpEIGnOI hjqEd2UYXtp284an9xpeF1 nOLzNFH3QBwhMFWgDDStyg UgZXZhbHVhdGVkXHBsYWlu XGYxXGZzMjJcbGFuZzEwMz NcaGljaFxmMVxkYmNoXGYx MSlmT6raKaYyC9RzVBYePh UhqOOaZ4omyCOwXKPaKRam XGYxXGZzMjJcbGFuZzEwMz NcaGljaFxmMVxkYmNoXGYx ULszX3opFqFzA6EvCHEgTf IgIFxwbGFpblxmMVxmczIy MIuqalwjWPRtNZiaQ6maJq MtQXMkiXawTPlpb0ZaOGLb XUMoOweqcpUtUEp4ojSaYM BhclxwbGFpblxmMVxmczIy ZUosxvfbLNZsJZrqN4ksCt IvOKAgtKjkXAmgy1NqBGQf XGNmMlxmczIyIEltbXVub2 klr3AeH9fqnNyaqWK7NMJs I7jnqTLbqYS3BON4gI1hTM hcbtCeLYCkz9BeAYWwOTTw KeO3oP6hZUH2JbXLiIegSK BsYWluXGYxXGZzMjJcbGFu ZzEwMzNcaGljaFxmMVxkYm ZiQVFgDKniK6nrOvBpO4Zd OYOwGhYwaTvtYMsuIEs3Yh xwbGFpblxmMVxmczIyXGxh vpumUWTbWGawF4qhRmXoRQ LxlQzdPRmsn2FjAUWaHGMe MlxmczIyIHMgTWVkaWNhbC OGHK69YDDmNTWeiNsbmN5w pDRIADDqohP6n9M1JQdoTF IgWUb2HLhaxoAhVJHekC0i EGFeMY1jPEl0siAwQLOvy4 SkHH4mTSBsqSKqPGQ2JXZf v1OxJ0Qvj3LoUPZeKEPxkg 3zceYzTfQHkRFbZXWwnc60 XNLyKF4kD7ibUHGrJTIuwb KgpMPbv4LrNAGkdAW6uFEw UJ2SOeBKu71qQQFkSJENmu GzILRbeCxqnLV1dgR4wW6r LiBUaGUgRkRBIGhhcyBkZX Mvux0qmtXyVJUqTDFuj7Wa gVRmePIeuqNbG5Cew0DqYB Ulst23EPojdAQdvg61LI4w L0Xhl6EzaE1mGEhkLWGej9 OolHEqhDIkFEAfb9TkJ6vb kbggEHeywORigE2hWZDpSN g4EOOfw9UlETZfu0FoFnJt cdThUCAwSYFoRBPugJ88OC Z2eBvsbEeorlHtLX2uHAOy jcViFKCoUNAhvX3tHQkyyu IhDSBmseD6h7Q1TBrlHQYn trUdHomzOWU0vmGqpuF0gX FuT1aetyqgBSyrLZNhq3Rk uF8iaFITfRAhv4WrdRWumU MRgAGsCY1rcnRhXU8uVGB1 ODggKENMSUEtODgpIGFzIH B8YBhlWgxaKUL3kqQmTYDl e2YqADduB3stH99wcBcswU i3rIPfpFvheBXstTCpBMSn tvW2y9L9XBYrs5OrcmlmTI BsYWluXGYyXGZzMjJcbGFu ZzEwMzNcaGljaFxmMlxkYm KaORRvWFcyQ5yzQbEsCkUj HxrvTEY6fI== [facility]ISS[facility] [id number] 16:47:26Surgical Pathology Report Case: [id number] Authorizing Provider: Nathaniel Dooley MD Collected: 02/26/2022 04:38 PM Ordering Location: [address] Received: 02/27/2022 07:57 AM Service Pathologist: Gene Carlton MD Specimen: Cervix CERVIX, MASS, 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 The tumor shows focal necrosis, however, there is no cervical stroma present to evaluate for invasion.[id number] y.o. female who is incarcerated with PMHx [...] blood submitted in toto in A1.OCTAVIO Timmons, PILI (ASCP)cmPerformed.The interpretation of this case included the use of immunohistochemistry or special stains.ControlSlides Examined: In-house known positive controls were evaluated along with the test tissue. These control slides run alongside of the patients sample show appropriate staining. Internal positive and negative controls when available are evaluated [facility] [...] to perform high complexity clinical laboratory testing.Prepare [id number] 23:54:00 Test Item Value Reference Range Interpretation Comments Unit ABO (test code = A Pos 3527156) UNIT NUMBER (test code = [id number] 934-0) Status (test code = 8879732) TX_TIMEINCHART Blood Bank Product (test code RED BLOOD CELLS = 2263) PRODUCT CODE (test code = R4512D37 933-2) CROSSMATCH (test code = 2264) COMPATIBLE [facility] [id number] 23:54:00 Test Item Value Reference Range Interpretation Comments Unit ABO (test code = A Pos 0891979) UNIT NUMBER (test code = [id number] 934-0) Status (test code = 9827201) [facility] Product (test code RED BLOOD CELLS = 2263) PRODUCT CODE (test code = C1576G67 933-2) CROSSMATCH (test code = 2264) COMPATIBLE [facility] [id number] 23:54:00 Test Item Value Reference Range Interpretation Comments Unit ABO (test code = A Pos 0498080) UNIT NUMBER (test code = [id number] 934-0) Status (test code = 5268772) TX_TIMEINCHART Blood Bank Product (test code RED BLOOD CELLS = 2263) PRODUCT CODE (test code = U8760S49 933-2) CROSSMATCH (test code = 2264) COMPATIBLE [facility] [id number] 23:54:00 Test Item Value Reference Range Interpretation Comments Unit ABO (test code = A Pos 3834837) UNIT NUMBER (test code = [id number] 934-0) Status (test code = 3569303) TX_TIMEINCHART Blood Bank Product (test code RED BLOOD CELLS = 2263) PRODUCT CODE (test code = F6573S42 933-2) CROSSMATCH (test code = 2264) [id number] 23:54:00 Test Item Value Reference Range Interpretation Comments Unit ABO (test code = A Pos 7676516) UNIT NUMBER (test code = [id number] 934-0) Status (test code = 2030408) TX_TIMEINCHART Blood Bank Product (test code RED BLOOD CELLS = 2263) PRODUCT CODE (test code = G3981O39 933-2) CROSSMATCH (test code = 2264) [facility] [id number] 23:54:00 Test Item Value Reference Range Interpretation Comments Unit ABO (test code = A Pos 8594065) UNIT NUMBER (test code = [id number] 934-0) Status (test code = 3263665) TX_TIMEINCHART Blood Bank Product (test code RED BLOOD CELLS = 2263) PRODUCT CODE (test code = S6298B72 933-2) CROSSMATCH (test code = 2264) [facility] [id number] 23:54:00 Test Item Value Reference Range Interpretation Comments Unit ABO (test code = A Pos 4811677) UNIT NUMBER (test code = [id number] 934-0) Status (test code = 7427777) TX_TIMEINCHART Blood Bank Product (test code RED BLOOD CELLS = 2263) PRODUCT CODE (test code = X9204N96 933-2) CROSSMATCH (test code = 2264) [facility] [id number] 14:04:42 Test Item Value Reference Range Interpretation Comments IMMEDIATE PT (BEAKER) 13.6 seconds 11.7-14.7 (test code = 1487) IMMEDIATE PTT (BEAKER) 26.4 seconds 22.5-36.0 (test code = 1488) IMMEDIATE 1:1 MIX PT 13.2 seconds 11.7-14.7 (BEAKER) (test code = 2360102137) IMMEDIATE 1:1 MIX PTT 27.5 seconds 22.5-36.0 (BEAKER) (test code = 0854323707) 1:1 MIX, 1 HOUR INC PT 13.4 seconds (BEAKER) (test code = 1501) 1:1 MIX, 1 HOUR INC PTT 27.3 seconds (BEAKER) (test code = 1502) MIXING STUDY PATHOLOGIST Normal PT and PTT INTERPRETATION (BEAKER) at baseline and (test code = 4416137250) after incubation. [id number] Christina Ashby M.D (BEAKER) (test code = (electronic 2608) signature) FACTOR 9 [id number] 10:15:32 Test Item Value Reference Range Interpretation Comments FACTOR IX ACTIVITY (BEAKER) (test 157.0 % 60.0-150.0 H code = 666) FACTOR 8 [id number] 10:15:32 Test Item Value Reference Range Interpretation Comments FACTOR VIII ACTIVITY (BEAKER) (test 377.0 % 45.0-150.0 H code = 663) [id number] 05:22:17 Test Item Value Reference Range Interpretation Comments FERRITIN (BEAKER) (test code = 18.37 ng/mL 5.00-275.00 361) Document Design Specialist ID - LETTY GBASIC METABOLIC [id number] 05:15:22 Test Item Value Reference Range Interpretation [...] not appl icable for dialysis patien ts Document Design Specialist ID - LETTY [id number] 05:15:22 Test Item Value Reference Range Interpretation Comments MAGNESIUM (BEAKER) (test code = 1.9 mg/dL 1.6-2.6 627) Document Design Specialist ID - LETTY [id number] 05:15:22 Test Item Value Reference Range Interpretation Comments PHOSPHORUS (BEAKER) (test code = 4.2 mg/dL 2.3-4.7 604) Document Design Specialist ID - LETTY SUMMERS, TIBC, % SAT. (WITHOUT FERRITIN)2022-02-27 05:01:35 Test Item Value Reference Range Interpretation Comments IRON (BEAKER) (test code = 547) 52.0 ug/dL 40.0-160.0 TOTAL IRON BINDING CAPACITY 211 ug/dL 250-450 L (BEAKER) (test code = 769) IRON % SATURATION (2) (BEAKER) 25 % 20-55 (test code = 2590) Document Design Specialist ID - LETTY GCBC (HEMOGRAM ONLY)2022-02-27 04:46:45 [...] WBC 0-0 (BEAKER) (test code = 413) [id number] 15:28:00 Test Item Value Reference Range Interpretation [...] Hematology (test Appears Adequate code = PCOMMENT) [id number] 15:28:00 Test Item Value Reference Range Interpretation Comments Hematology (test code Clinic al History: 36 y/o F = PATH) with abdominal pain and vaginalbleeding .Microscopi c examination:W BC: Morpholgically unremarkable leukocytes.RBC: Significanlty d ecreased in number with hyp ochromia andpolychromasi a.PLT: Morphologically unremarkable.Im pression: Marked normocyt ic anemia. Clinical correl ationis recommended.[facility] T code 56217 Molecular Testing [id number] 12:09:00 Test Item Value Reference Range Interpretation [...] in the absence of viable organism s. [id number] 08:47:17 Test Item Value Reference Range Interpretation [...] 0-0 (BEAKER) (test code = 413) RETICULOCYTE [id number] 07:50:02 Test Item Value Reference Range Interpretation Comments RETICULOCYTE COUNT PCT (BEAKER) (test 2.1 % 0.5-1.7 H code = 575) Document Design Specialist ID - [id number] AND [id number] 05:48:24 Test Item Value Reference Range Interpretation Comments HEMOGLOBIN (BEAKER) (test code = 8.4 GM/DL 11.2-15.7 L 410) HEMATOCRIT (BEAKER) (test code = 24.4 % 34.1-44.9 L 411) Document Design Specialist ID - [id number], [id number] 04:24:58 Test Item Value Reference Range Interpretation Comments CALCIUM IONIZED (BEAKER) (test 1.05 mmol/L 1.12-1.27 L code = 698) PH, BLOOD (BEAKER) (test code = 7.42 1810) SARS-CoV2/RT-PCR (Asymptomatic ONLY)2022-02-26 00:54:18 Test Item Value Reference Interpretation Comments Range SARS-COV2/RT-PCR Negative Negative The SARS-Co V-2 (test code = target nucleic 04619-2) acids are not detected in thi s [...] revoked sooner. Fact Sheet for Healthcare Providers: https://www.[employer]That[employer].com/Documents/Xp ert%20Xpress%20SAR S%20CoV-2/Fact%20S heets/3023802%20S ARS-COV-2%20HEALTH CARE%20PROVIDERS%2 0FACT%20SHEET.pdf Fact Sheet for Healthcare Patients: https://www.[employer].com/Documents/Xp ert%20Xpress%20SAR S%20CoV-2/Fact%20S heets/302-3801%20S ARS-COV-2%20PATIEN T%20FACT%20SHEET.p df Lab Interpretation Normal (test code = 93203-6) [facility]22-02-26 00:54:18 Test Item Value Reference Interpretation Comments Range SARS-COV2/RT-PCR Negative Negative The SARS-Co V-2 (test code = target nucleic 65438-6) acids are not detected in thi s [...] revoked sooner. Fact Sheet for Healthcare Providers: https://www.[employer].com/Documents/Xp ert%20Xpress%20SAR S%20CoV-2/Fact%20S heets/302-3802%20S ARS-COV-2%20HEALTH CARE%20PROVIDERS%2 0FACT%20SHEET.pdf Fact Sheet for Healthcare Patients: https://www.[employer].com/Documents/Xp ert%20Xpress%20SAR S%20CoV-2/Fact%20S heets/302-3801%20S ARS-COV-2%20PATIEN T%20FACT%20SHEET.p df Lab Interpretation Normal (test code = 36462-5) [facility]2022-02-26 00:54:18 Test Item Value Reference Interpretation Comments Range SARS-COV2/RT-PCR Negative Negative The SARS-Co V-2 (test code = target nucleic 12919-6) acids are not detected in thi s [...] revoked sooner. Fact Sheet for Healthcare Providers: https://www.[employer].com/Documents/Xp ert%20Xpress%20SAR S%20CoV-2/Fact%20S heets/302-3052%20S ARS-COV-2%20HEALTH CARE%20PROVIDERS%2 0FACT%20SHEET.pdf Fact Sheet for Healthcare Patients: https://www.[employer].com/Documents/Xp ert%20Xpress%20SAR S%20CoV-2/Fact%20S heets/302-0351%20S ARS-COV-2%20PATIEN T%20FACT%20SHEET.p df Lab Interpretation Normal (test code = 99516-8) [facility]2022-02-26 00:54:18 Test Item Value Reference Interpretation Comments Range SARS-COV2/RT-PCR Negative Negative The SARS-Co V-2 (test code = target nucleic 69394-8) acids are not detected in thi s [...] revoked sooner. Fact Sheet for Healthcare Providers: https://www.[employer].com/Documents/Xp ert%20Xpress%20SAR S%20CoV-2/Fact%20S heets/302-3802%20S ARS-COV-2%20HEALTH CARE%20PROVIDERS%2 0FACT%20SHEET.pdf Fact Sheet for Healthcare Patients: https://www.[employer].com/Documents/Xp ert%20Xpress%20SAR S%20CoV-2/Fact%20S heets/302-3801%20S ARS-COV-2%20PATIEN T%20FACT%20SHEET.p df Lab Interpretation Normal (test code = 01390-6) [facility]2022-02-26 00:54:18 Test Item Value Reference Interpretation Comments Range SARS-COV2/RT-PCR Negative Negative The SARS-Co V-2 (test code = target nucleic 53536-9) acids are not detected in thi s [...] rapid, real-cherie e RT-PCR test intended for e qualitative [...] revoked sooner. Fact Sheet for Healthcare Providers: https://www.[employer].com/Documents/Xp ert%20Xpress%20SAR S%20CoV-2/Fact%20S heets/302-3802%20S ARS-COV-2%20HEALTH CARE%20PROVIDERS%2 0FACT%20SHEET.pdf Fact Sheet for Healthcare Patients: https://www.[employer].com/Documents/Xp ert%20Xpress%20SAR S%20CoV-2/Fact%20S heets/302-3801%20S ARS-COV-2%20PATIEN T%20FACT%20SHEET.p df Lab Interpretation Normal (test code = 48639-0) [facility]2022-02-26 00:54:18 Test Item Value Reference Interpretation Comments Range SARS-COV2/RT-PCR Negative Negative The SARS-Co V-2 (test code = target nucleic 27745-5) acids are not detected in thi s [...] rapid, real-cherie e RT-PCR test intended for e qualitative [...] revoked sooner. Fact Sheet for Healthcare Providers: https://www.[employer].com/Documents/Xp ert%20Xpress%20SAR S%20CoV-2/Fact%20S heets/302-3802%20S ARS-COV-2%20HEALTH CARE%20PROVIDERS%2 0FACT%20SHEET.pdf Fact Sheet for Healthcare Patients: https://www.[employer].com/Documents/Xp ert%20Xpress%20SAR S%20CoV-2/Fact%20S heets/302-3801%20S ARS-COV-2%20PATIEN T%20FACT%20SHEET.p df Lab Interpretation Normal (test code = 17663-3) [facility]2022-02-26 00:54:18 Test Item Value Reference Interpretation Comments Range SARS-COV2/RT-PCR Negative Negative The SARS-Co V-2 (test code = target nucleic 28028-2) acids are not detected in thi s [...] revoked sooner. Fact Sheet for Healthcare Providers: https://www.[employer].com/Documents/Xp ert%20Xpress%20SAR S%20CoV-2/Fact%20S heets/302-3802%20S ARS-COV-2%20HEALTH CARE%20PROVIDERS%2 0FACT%20SHEET.pdf Fact Sheet for Healthcare Patients: https://www.[employer].com/Documents/Xp ert%20Xpress%20SAR S%20CoV-2/Fact%20S heets/302-3801%20S ARS-COV-2%20PATIEN T%20FACT%20SHEET.p df Lab Interpretation Normal (test code = [address]-1) [facility])2022-02-26 00:54:18 Test Item Value Reference Range Interpretation Comments SARS-COV2/RT-PCR Negative Negative The SARS-Co V-2 target (test code = nucleic acids a re not [id number]) detected in thi s specimen. Negative result [...] revoked sooner. Fact Sheet for Healthcare Providers: https://www.[employer] m/Documents/Xpert%20Xpress%20SARS%20CoV-2/Fact%20Sheets/3023802%77FDID-WJF-3%20 HEALTHCARE%20PROVIDERS%20FACT%20SHEET.pdf Fact Sheet for Healthcare Patients: https://www.N(i)²/Documents/Xpert%20Xp ress%20SARS%20CoV-2/Fact%20Sheets/3023801%55JKUP-WFS-5%20PATIENT%20FACT%20SHEET .pdfCOMPREHENSIVE METABOLIC [id number] 22:35:11 Test Item Value Reference Range Interpretation [...] not appl icable for dialysis patien ts Document Design Specialist ID - [id number] 22:34:35 Test Item Value Reference Range Interpretation Comments MAGNESIUM (BEAKER) 2.1 mg/dL 1.6-2.6 Specimen slightly (test code = 627) hemolyzed Document Design Specialist ID - BSPROTHROMBIN TIME/[id number] 22:30:47 Test Item Value Reference Range Interpretation Comments PROTIME (BEAKER) 15.3 seconds 11.9-14.2 H (test code = 759) INR (BEAKER) (test 1.28 See_Comment [Automat ed message] code = 370) The system [employer] generated this result transmitted ref erence range: <=5.90. The reference range was not used to int erpret this result as normal/abnormal . RECOMMENDED COUMADIN/WARFARIN INR THERAPY RANGESSTANDARD DOSE: 2.0 - 3.0 Includes: PROPHYLAXIS for venous thrombosis, systemic embolization; TREATMENT for venous thrombosis and/or pulmonary embolus.HIGH RISK: Target INR is 2.5-3.5 for patients with mechanical heart valves.CBC W/PLT COUNT & AUTO [id number] 22:15:27 Test Item Value Reference Range Interpretation [...] (test code = 2801) Packed Cells - Xrwlemfcsjmr4038-27-72 21:30:[id number] ON LRPC TRANSFUSED 02/25/22 1155 [id number] AP LRPC TRANSFUSED 02/25/22 1318 [id number] AP LRPC TRANSFUSED 02/25/22 1529Type [id number] 21:30:00 Test Item Value Reference Range Interpretation [...] from now? NOVaginitis Panel 3 by DNA [id number] 17:54:00 Test Item Value Reference Range Interpretation Comments Vaginitis Panel 3 by DNA Probe VPIIICANDI (test code = VP3) Vaginitis Panel 3 by DNA Probe N (test code = VP31) Vaginitis Panel 3 by DNA Probe VPIIITRICH (test code = VP31) Ufblnfsiud3529-28-07 17:33:00 Test Item Value Reference Range Interpretation [...] code = BASO#) 0.0 thou/uL 0.0-0.2 N Ihrulznlpg4712-73-46 16:38:00 Test Item Value Reference Range Interpretation [...] Seen UABAC) Urine Source: Urine VoidedMolecular Testing [id number] 15:14:00 Test Item Value Reference Range Interpretation Comments Molecular Testing Not Detected NotDetected Performanc e of the MM (test code = Cepheid SARS -CoV-2 has LQGTU14HQWGD) only beenestab lished in nasopharyngeal swab specimens. [...] Test: UnknownHospitalized: UnknownICU: UnknownDate of Symptom Onset: [id number]: UnknownReason for Testing: Admission ScreeningSource: Nasopharyngeal SwabSymptomatic [...] add on to prior labsRetype Verify-Blood Type [id number] 12:14:00 Test Item Value Reference Range Interpretation Comments Blood Type Rh (test code = BT) A POSITIVE Rzwtjbhwv1819-57-97 11:38:00 Test Item Value Reference Range Interpretation [...] EGFRCR) Estimated GFR: Greater than 90 mL/min/1.73 p6Kjscmxsd eGFR is based on the CKD-EPI 2020 [...] code 8 U/L 8-55 N = ALT) Uiptqpoxc3527-78-11 11:38:00 Test Item Value Reference Range Interpretation Comments Chemistry (test code = LIP) 13 U/L 8-78 N Chemistry - Dzloxoe0495-27-23 11:37:00 Test Item Value Reference Range Interpretation Comments Chemistry - Lactate (test code = 1.9 mmol/L 0.5-2.2 N LACTSEP-T) HGB [id number] 18:56:00 Test Item Value Reference Range Interpretation Comments HEMOGLOBIN (test code = HGB) 10.0 G/DL 12.0-16.0 L HEMATOCRIT (test code = HCT) 30.3 % 37-47 L MEAN CELL HGB CONCENTRATION (test 33.0 G/DL 33-37 N code = MCHC) - DUP AB/PEL/SC [id number] 18:20:00 [facility] 1985 Sex: F Patient Name: YULIYA LARA Unit No: [id number] EXAMS: CPT CODE: [id number] DUP AB/PEL/SC COMP 44994 EXAMINATION: - DUP AB/PEL/SC COMP, - US [...] Orig Print D/T: S: 10/11/2021 (1822) Probe: [facility] Area NAME: YULIYA LARA [address] PHYS: [id number] - [place] [address] : 1985 AGE: 36 SEX: F LOC: GinaBRADEN PHONE #: [phone] EXAM DATE: 10/11/2021 STATUS: REG ER FAX #: RAD NO: Page 1 Signed Report- US PELVIC [id number] 18:20:00 [facility] 1985 Sex: F Patient Name: YULIYA LARA Unit No: [id number] EXAMS: CPT CODE: [id number] US P ELVIC COMPLETE 77901 EXAMINATION: - DUP AB/PEL/SC COMP, - US [...] CC: Armond Owens MD; Mary Vo; Shea Mendenhall; Dallin Sanchez DO Technologist: Sanjuanita Woo, Trnscrbd D/ (1819) [email or web address] Orig Print D/T: S: 10/11/2021 (1822) Probe: [facility] Area NAME: YULIYA LARA [address] PHYS: [place] [address] : 1985 AGE: 36 SEX: F LOC: GinaBRADEN PHONE #: [phone] EXAM DATE: 10/11/2021 STATUS: REG ER FAX #: RAD NO: Page 1 Signed Report- US TRANSVAGINAL NON [id number] 18:20:00 [facility] 1985 Sex: F Patient Name: YULIYA LARA Unit No: [id number] EXAMS: CPT CODE: [id number] [place] [address] EXAMINATION: - DUP AB/PEL/SC COMP, - US [...] Technologist: US Hien Trnscrbd D/ (1819) RandyPE1 Orig Print D/T: S: 10/11/2021 (1822) Probe: [id number] [facility] NAME: YULIYA LARA [id number] SPID PHYS: [place] [address] : 1985 AGE: 36 SEX: F LOC: SHERRI PHONE #: [phone] EXAM DATE: 10/11/2021 STATUS: REG ER FAX #: RAD NO: Page 1 Signed [id number] 17:27:00 Test Item Value Reference Range Interpretation Comments GLUBED (test code = 80 MG/DL 65-99 N Performe d by certified GLUBED) 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 UnknownTHROMBOPLASTIN TIME [id number] 14:40:00 Test Item Value Reference Range Interpretation Comments THROMBOPLASTIN TIME 30.9 SECONDS 24.7-38.0 N *Therap eutic level PARTIAL (test code = for hep felecia: 1.5 - PTT) 2.5 times the average patient value of 30.0 seconds. The aP TT tet should not be used to evaluat e low moleculat weigh t heparin anticoagulant therapy. Is patient on anticoagulants? UnknownCOMPREHENSIVE METABOLIC [id number] 14:34:00 Test Item Value Reference Range Interpretation [...] TOTAL (test code = ALKP) TROP-I HIGH [id number] 14:34:00 Test Item Value Reference Range Interpretation [...] taking high doses of Biotin. HCG SERUM [id number] 14:27:00 Test Item Value Reference Range Interpretation [...] using aquantitative h CG assay. CBC W/AUTO [id number] 14:24:00 Test Item Value Reference Range Interpretation [...] x10 3/uL 0.0-0.2 N AG HEPATITIS B [id number] 12:39:00 Test Item Value Reference Range Interpretation Comments AG HEPATITIS B SURFACE (test code = Negative Negative HBSAG) AB RUBELLA [id number] 12:39:00 Test Item Value Reference Range Interpretation Comments AB RUBELLA IGG (test code = RUBGAB) 1.77 IMMUNE >0.99 HIV 1 2 COMBO AG/AB [id number] 12:39:00 Test Item Value Reference Range Interpretation Comments HIV 1 2 COMBO AG/AB Non Reactive NonReactive HIV 4th Generation SCREEN (test code = Detects HIV-specific EQQ44WPXFJ) antibodies and HIV-p24 antigen. [id number] 06:19:00 Test Item Value Reference Range Interpretation Comments HEMATOCRIT (test code = HCT) 35.1 % 37-47 L ISTAT CORD [id number] 10:32:00 Test Item Value Reference Range Interpretation [...] Cord Performed by certified (test code = silica mixer operator at [facility] SRCIST) RAPID PLASMA [id number] 09:39:00 Test Item Value Reference Range Interpretation Comments RAPID PLASMA REAGIN (test code = Nonreactive Nonreactive RPR) HIV 1/2 RAPID [id number] 09:39:00 Test Item Value Reference Range Interpretation Comments HIV 1/2 RAPID SCREEN (test code = NonReactive NonReactive EWD68RZP) RAPID PLASMA [id number] 09:17:00 Test Item Value Reference Range Interpretation Comments RAPID PLASMA REAGIN (test code = RPR) Nonreactive HIV 1/2 RAPID [id number] 09:17:00 Test Item Value Reference Range Interpretation Comments HIV 1/2 RAPID SCREEN (test code = NonReactive NonReactive EAX97WST) DRUG OF ABUSE SCREEN [id number] 06:33:00 Test Item Value Reference Interpretation Comments [...] preliminary PHENCU) results thatmay be confirmed by al yair methods (i.e., GC/MS) at [facility]. Results of scre en may not be usedin crimi nal justice, job performance or professionalcre dential review, or infa nt custody issues. Negativ e Rigby Level ng/ml ------- ----- Cocaine 3 00 Methamphetamine (Ecstacy) 500 Cannabinoi ds (THC) 50 Amphetamine 100 0 Barbiturates 20 0 Benzodiazepines 200 Opiates 300 Phencyclidi ne (PCP) 25 UA RFLX [id number] 05:46:00 Test Item Value Reference Range Interpretation [...] URINE SOURCE: Clean CatchCOVID 19 Asymptomatic IH [id number] 05:13:00 Test Item Value Reference Interpretation Comments [...] allows for the detection o f SARS-CoV jhiCSSJ-PkX-1. The test detects, but does not differentiate,b etween the two viruses. " Resu lts are for the identification of ZSOF-FkS-8rwfqn ocapsid protein antigen. Antige n is generallydetect [...] Compliance, or Certificate of Accreditation CBC W/AUTO [id number] 05:00:00 Test Item Value Reference Range Interpretation [...] X10 3/uL 0.0-0.2 N NRBC#) AB RUBELLA [id number] 08:19:00 Test Item Value Reference Range Interpretation Comments AB RUBELLA IGG (test 1.22 index Immune >0.99 Non-i mmune <0.90 code = RUBGAB) Equivocal 0.9 0 - 0.99 Immune >0.99Per formed At: [facility] [address] [place], [place] [id number] Kyle L MD Ph:[phone] [id number] 06:07:00 Test Item Value Reference Range Interpretation Comments HEMATOCRIT (test code = HCT) 32.0 % 37-47 L ISTAT CORD [id number] 20:50:00 Test Item Value Reference Range Interpretation [...] Performe d by certified (test code = silica mixer operator at [facility] SRCIST) US Pelvic Transvag W Doppler [facility] : 1985 [facility] Pt Name: YULIYA HAMILTON [address] Phys: [place] [address] : 1985 Age: 36 SEX:F [phone] Exam Date: 03/18/22 Status: REG ER Acct: [id number] Loc: ERS Pt Unit #: [id number] Report #: [id number] CC: Boy Ndiaye MD ULTRASOUND REPORT Report Status: Signed Order # Category/Exam [id number] ULT/US Pelvic Transvag W Doppler ([id number]): . Results US Pelvic Transvag W Doppler [...] 03/18/222125 Transcribed Date/Time:CT Abdomen Pelvis W Con [facility] : 1985 [facility] Pt Name: YULIYA HAMILTON [address] Phys: [place] [address] : 1985 Age: 36 SEX:F [phone] Exam Date:03/18/22 Status: REG ER Acct: [id number] Loc: ERS Pt Unit #: [id number] Report #: [id number] CC: ED TEMP PROVIDER Boy Ndiaye MD CAT SCAN REPORT Report Status: Signed Order # Category/Exam [id number] CT/CT Abdomen Pelvis W Con ([id number]): . Results CT Abdomen Pelvis W Con [...] mesenteric adenopathy. CT of pelvis performed with contrast:The endometrium appears rather markedly thickened. This is more prominent than on the previous exam.There is some trace free fluid present. Partially collapsed follicle involving the right ovary. The appendix is normal. Review of osseous structures show some arthritic changes of the spine. IMPRESSION: 1. Thickened endometrium, this is more prominent than typically seen, clinical correlation as to pos sibility of . There is a partially ruptured right ovarian follicle and free fluid within the cul-de-sac. Pelvic ultrasound may be helpful. Reported By: Amalia Luna MD Electronically Signed Date/Time: 03/18/221949 Technologist: WILLOW Dictated Date/Time: 03/18/221945 Transcribed Date/Time:XR Chest 1 View PortableCHI SSM Health Careme: [facility] : 1985 Sex: [facility] Pt Name: YULIYA HAMILTON [address] Phys: [place] [address] : 1985 Age: 36 SEX:F [phone] Exam Date:03/18/22 Status: REG ER Acct: [id number] Loc: ERS Pt Unit #: [id number] Report #: [id number] CC: Boy Ndiaye MD IMAGING SERVICES REPORT Report Status: Signed Order # Category/Exam [id number] RAD/XR Chest 1 View Portable ([id number]): . Results XR Chest 1 View Portable HISTORY: Chest pain COMPARISON: 02/25/2022 FINDINGS: The heart size is normal. The lungs are well expanded without focal areas ofconsolidation, pneumothorax or pleural effusions. IMPRESSION: No radiographic evidence of acute cardiopulmonary process. Reported By: Mta Diaz MD Electronically Signed Date/Time: 03/18/221854 Technologist: Dictated Date/Time: 03/18/221853 Transcribed Date/Time:MRI Pelvis W WO Con Name: YULIYA PHILIP : 1985 Sex: [facility] Pt Name: YULIYA PHILIP [address] [facility] Phys: [place] [address] : 1985 Age: 36 SEX:F Exam Date: 03/10/22 Status: ADM IN Acct: [id number] Loc: [facility] Pt Unit #: [id number] Report #: [id number] CC: Narcisa Ruiz MD MRI REPORT Report Status: Signed Order # Category/Exam [id number] MRI/MRI Pelvis W WO Con ([id number]): . Results MRI Pelvis W WO Con [...] Normal appearance of both ovaries. No pelvic adenopathy . No abnormal bone marrow signal. Left Bartholin gland cyst measures 7 mm. 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 No extraserosal extension appreciated nor pelvic adenopathy. Reported By: SALEEM MCGILL Electronically Signed Date/Time: 03/12/22805 Technologist: ALONZO Dictated Date/Time: 03/12/22 08 Transcribed Date/Time:US Renal Bilateral STANDARD Name: YULIYA PHILIP : 1985 [facility] Pt Name: YUL[facility]YA PHILIP [address] [facility] Phys: Gurmeet Naylor III, [place] [address] : 1985 Age: 36 SEX:F Exam Date: 03/09/22 Status: ADM IN Acct: [id number] Loc: [facility] Pt Unit #: [id number] Report #: [id number] CC: Bárbara Lemons MD, III, Joe MD ULTRASOUND REPORT Report Status: Signed Order # Category/Exam [id number] ULT/US Renal Bilateral STANDARD ([id number]): . Results US Renal Bilateral STANDARD HISTORY: [...] 03/09/221714 Transcribed Date/Time:US Pelvic Transvag W Doppler [facility] : 1985 Sex: [facility] Pt Name: YULIYA PHILIP [address] Phys: [place] [address] : 1985 Age: 36 SEX:F [phone] Exam Date: 03/09/22 [facility] Acct: [id number] Loc: [facility] Pt Unit #: [id number] Report #: [id number] CC: Livier Carver MD ULTRASOUND REPORT Report Status: Signed Order # Category/Exam [id number] ULT/US Pelvic Transvag W Doppler ([id number]): . Results PRELIMINARY REPORT EXAM: US Pelvis, Complete. CLINICAL HISTORY: HX: VAG BLEEDING, CERVICAL MASS. SEE NOTES ON LAST IMAGE. THANKS TECHNIQUE: Transvaginal and transabdominalpelvic ultrasound (complete) with image documentation. COMPARISON: CT - CT ABDOMEN PELVIS W CON - 03/09/2022 02:04 AM RESILIENT TILE INSTALLER FINDINGS: ENDOMETRIUM: Normal thickness. UTERUS/CERVIX: Measures 9.5 [...] uterine segment. This may represent a fibroid howeverother pathology is not excluded and clinical correlation is advised witha view to possible biopsy. ELECTRONICALLY SIGNED BY: Murali Medina MD Mar 09, 2022 5:24:05 AM RESILIENT TILE INSTALLER US Pelvic Transvag W Doppler HISTORY: Vaginal [...] seen involving the right adnexa. Color Doppler evaluation with spectral analysis: Normal flow shown to [...] 03/09/22 0756 Transcribed Date/Time:CT Abdomen Pelvis W ConIMELDA [facility] SABINEANName: [facility]IYA PHILIP : 1985 Sex: F[facility]DA [facility] Pt Name: YULIYA PHILIP [address] Phys: Livier Carver MD [place] [address] : 1985 Age: 36 SEX:F [phone] Exam Date: 03/09/22 Status: DEP ER Acct: [id number] Loc: ERS Pt Unit #: [id number] Report #: [id number] CC: Livier Carver MD CAT SCAN REPORT Report Status: Signed Order # Category/Exam [id number] CT/CT Abdomen Pelvis W Con ( [id number]): . Results PRELIMINARY REPORT EXAM: CT Abdomen [...] with a pelvic mass was transferred to [facility] for further evaluation and treatment. Patient is currently not on any hormonal therapy. TECHNIQUE: Axial computed tomography images of the abdomen and pelvis with intravenous contrast. CONTRAST: With; ISOVUE 370,80mL COMPARISON: None provided. FINDINGS: LUNG BASES: There is bibasilar subsegmental atelectasis. LIVER: Unremarkable. GALLBLADDER AND BILE DUCTS: There is mild nonspecific gallbladder wall edema. PANCREAS: Unremarkable. SPLEEN: Unremarkable. ADRENAL GLANDS: Unremarkable. KI DNEYS, URETERS, AND BLADDER: Unremarkable. No hydronephrosis or [...] Rosales MD Mar 09, 2022 3:13:[address] TILE INSTALLER CT Abdomen Pelvis W Con HISTORY: Pelvic [...] normal in size. It is retrocecal in l ocation. CT of pelvis performed with contrast: There is masslike fullness to the lower uterine segment or cervix region. No significant pelvic lymphadenopathy no free fluid. IMPRESSION: Ill-defined masslike fullness to the lower uterine segment or cervix region. This does not have a typical appearanceof a fibroid. Cervical mass is not excluded. Gynecologic consultation is recommended. This report isin agreement with the temporary report. Transcribed Date/Time: 03/09/2022 10:08 AM Reported By: Amalia Luna MD Electronically Signed Date/Time: 03/09/22 1242 Technologist: Dictated Date/Time: 03/09/22 0811 Transcribed Date/Time:XR Chest 1 View Portable [facility] Lawrenceme: Y[facility] : 1985 [facility] Pt Name: YULIYA PHILIP [address] Phys: ER* STANDING MEDICAL DOC ORDER [place] [address] : 1985 Age: 36 SEX:F [phone] Exam Date:03/08/22 Status: REG ER Acct: [id number] Loc: ERS Pt Unit #: [id number] Report #: [id number] CC: ER* STANDING MEDICAL DOC ORDER IMAGING SERVICES REPORT Report Status: Signed Order # Category/Exam [id number] RAD/XR Chest 1 View Portable ([id number]): . Results XR Chest 1 View Portable History: Chest pain Comparison: None. Findings: Lungs are clear. No pneumothorax. No effusion. No acute osseous abnormality. Impression: No acute intrathoracic abnormality. Reported By: SALEEM MCGILL Electronically Signed Date/Time: 03/08/222345 Technologist: LIZETT Dictated Date/Time: 03/08/222339 Transcribed Date/Time: Pelvic Transvag W Doppler [facility] : 1985 Sex: F[facility] Pt Name: YULIYA HAMILTON [address] Phys: [place]a [place], [place] [address] : 1985 Age: 36 SEX:F [phone] Exam Date: 02/25/22 Status: REG ER Acct: [id number] Loc: ERS Pt Unit #: [id number] Report #: [id number] CC: DialloLouisa avitia DO ULTRASOUND REPORT Report Status: Signed Order # Category/Exam [id number] ULT/US Pelvic Transvag W Doppler ([id number]): . Results Exam: Pelvic ultrasound including Transvaginal, [...] 02/25/22 1456 Transcribed Date/Time:XR Chest [facility] : 1985 [facility] Pt Name: YULIYA HAMILTON [address] Phys: [place] [address] : 1985 Age: 36 SEX:F [phone] Exam Date: 02/25/22 Status: REG ER Acct: [id number] Loc: ERS Pt Unit #: [id number] Report #: [id number] CC: Louisa Sosa DO IMAGING SERVICES REPORT Report Status: Signed Order # Category/Exam [id number] RAD/XR Chest 1 View Portable ([id number]): . Results XR Chest 1 View Portable [...] Abdomen Pelvis W Con [facility] Lawrenceme: YULIYA HAMILTON : 1985 Sex: F[facility]DA [facility] Pt Name: YULIYA HAMILTON [address] Phys: [place] [address] : 1985 Age: 36 SEX:F [phone] Exam Date: 02/25/22 Status: REG ER Acct: [id number] Loc: ERS Pt Unit #: [id number] Report #: [id number] CC: ED TEMP PROVIDER Louisa Sosa DO CAT SCAN REPORT Report Status: Signed Order # Category/Exam [id number] CT/CT Abdomen Pelvis W Con ([id number]): . Results CT abdomen and pelvis with [...] and appears unremarkable. Colon is unremarkable. Aorta isnormal caliber. No evidence of retroperitoneal or mesenteric [...] Notes Date/Time Note Provider Source 2022-03-16 18:34:00-00:00 [facility] Name: YULIYA RICARDO Gabe STLSJX [address] [facility] : 1985, Age: 36, [place] ex: [place] [address] Unit #: [id number], St atus: [id number] Location: [address]-P Report Dict DrHarper: Gabe Casas DO Admission Date: 03/09/22 Report #: [id number] Discharge Date: 03/12/22 CC: Hospitalist Progress Note [...] She reports outpatient follow-up with provider at [facility] in [place], Dr. Stringer, last visit 2 weeks ago. She states she was seen at [place] ED on 02/25 for vaginal bleeding concerns, and was given 3 units of PRBC for symptomati c anemia at that time. She returned to the [place] ED yesterday with onset of pelvic pain as well as continued vaginal bleeding. Prior to transfer to the [facility] she was given TXA and 1 unit PRBC . Symptomatic anemia In setting of heavy vaginal bleeding, 1 unit PRBC given prior to transfer to [facility]. Patient also given TXA with marked impro vement in vaginal bleeding. Closely monitor labs Transfuse as needed Pelvic pain 03/09/2022: CT abdomen pelv is W Con with findings of masslike prominence of the cervix. Follow- up Renal ultrasound unremarkable. Patient given Demerol IM by primary team Continue Franklin Hypotension Baseline BP maintaining 99/50 since initial pre sentation to [place] ED. Closely monitor vital signs Continue IVF Chronic Constipation As needed MiraLAX, Colace Monitor I/O UTI Continue IV ceftriaxone Trend labs, trend cultures Squamous cell carcinoma cervix Continue outpatient followin g with provider at [facility] in [place], [place], Dr. Stringer. Patient states she is on [facility] in [place], [place]. Pending MRI outpatient for cancer staging once released from current facility. RAIL CAR REPAIRMAN following. Patient is G 19, P 11, A8, serum preg negative. Patient medically stable. Ho spitalist team will sign off for now. Reconsult us should you need us. Thank you for this consult ===== DVT prophylaxisSCD. GI prophylaxisProtonix. CODE STATUSfull code. Total time spent in care of this patient: 40 min utes <Electronically signed by Gabe Casas MD> 09/29 1836 2022-03-13 14:15:00-00:00 [facility] Name: YULIYA PHILIP Ching Layne STLSJX [address] : 1985, Age: 36, [place] ex: [place] [address] Unit #: [id number], St atus: DIS IN Location: [address] Dictated by: Ching Layne MD *r Admission Date: 03/09/22 Report #: [id number] Discharge Date: 03/12/22 CC: Ching Layne MD *r NO PCP PROVIDER Bárbara Lemons MD, Thomas DO DISCHARGE SUMMARY REPORT Report Status: Signed DATE OF ADMISSION: 03/09/2022 DATE OF DISCHARGE: 03/12/2022 RESIDENT: Dr. Ching Layne. ADMITTING PHYSICIAN: Dr. Naylor. DISCHARGING PHYSICIAN: Dr. Sheldon. CONSULT: General Medicine. PROCEDURES: Renal ultrasound on 03/09/2022, [facility] shows unremarkable renal ultrasound. Pelvic MRI on [...] bleeding. She was trans ferred to the [facility] in [place] on 02/25/2022 after she was seen for pelvic pain and bleeding and was seen by gynecologic oncologist, Dr. Stringer, who found a cervical mass suspicious for cancer. 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 She was later discharged from [facility] and was stable. She was due to [...] that she can easily get at the penitentiary that is stronger than NSAIDs. Encouraged patient to schedule routine followu p with her gynecologic oncologist, Dr. Stringer, at [facility] for further management for squamous cell carcinoma of the cervix. DISPOSITION: Stable. DISCHARGE INSTRUCTIONS: 1. Location, to penitentiary. 2. Diet; regular diet. 3. Activity as tolerated. 4. Followup: Followup with Dr. Stringer, Gynecologic Oncology as previously scheduled for further management of the cervical cancer. Job ID: [id number] Dictated by: Ching Layne MD *r <Electronically signed by Ching Layne MD *r> 04/18/22 0924 <Electronically signed by Ulysses Sheldon MD> 0842 Dictated Date/Time: 04/15/22 1653 Transcribed Date/Time: 04/16/22 0405 Screener And Blender: LOPEZ 2022-03-12 06:38:00-00:00 [facility] Name: LASHAUN CASIEDIMITRISYULIYA COHEN Katelyn STLSJX [address] : 1985, Age: 36, S ex: [place] [address] Unit #: [id number], atus: ADM IN Location: [address] Report Dict Dr.: Ching Layne MD *r Admission Date: 03/09/22 Report #: [id number] Discharge Date: CC: Brief Progress Note Report Status: Signed <Ching Layne - Last Filed: 03/12/22 06:38> - Brief [...] the Cervix -following w Dr Myke Mallory, DATA INTEGRATION ANALYST Onc -MRI done for staging, pending official read. unable to get ahold of radiology -bleeding stable, vitals stable -pain controlled, will d/c with Tylenol #3 GERD -improved w Pepcid dispo: back to penitentiary today. <Ulysses Sheldon - Last Filed: 03/12/22 [...] SARAH SHELDON MD> 03/12 0644 2022-03-11 18:36:00-00:00 [facility] Name: YULIYA RODRÍGUEZ Thomas STLSJX [address] : 1985, Age: 36, S ex: [place] [address] Unit #: [id number], St atus: ADM IN Location: [address] Report D[address] Dr.: Gabe Casas DO Admission Date: 03/09/22 Report #: [id number] Discharge Date: CC: Hospitalist Progress Note Report [...] of her chest. EKG was done. When examinin g the patient she says it was more [...] 1550 Output Total 41 1999 1753 Balance 4500 -784 -665 Result Diagrams: 03/10/22 04:14 03/10/22 04:14 Hospitalist [...] 03/11/22 05:56 Lactated Ringer's IV 1,000 mls .[id number] AXEL Administration Lorazepam 0.5 mg 03/11/22 15:24 [...] She reports outpatient follow-up with provider at [facility] in [place], Dr. Stringer, last visit 2 weeks ago. She states she was seen at [place] ED on 02/25 for vaginal bleeding concerns, and was given 3 units of PRBC for symptomati c anemia at that time. She returned to the [place] ED yesterday with onset of pelvic pain as well as continued vaginal bleeding. Prior to transfer to the [facility] she was given TXA and 1 unit PRBC . Symptomatic anemia In setting of heavy vaginal bleeding, 1 unit PRBC given prior to transfer to [facility]. Patient also given TXA with marked impro vement in vaginal bleeding. Closely monitor labs Transfuse as needed Pelvic pain 03/09/2022: CT abdomen pelv is W Con with findings of masslike prominence of the cervix. Follow- up Renal ultrasound unremarkable. Patient given Demerol IM by primary team Continue Franklin Hypotension Baseline BP maintaining 99/50 since initial pre sentation to [place] ED. Closely monitor vital signs Continue IVF Chronic Constipation As needed MiraLAX, Colace Monitor I/O UTI Continue IV ceftriaxone Trend labs, trend cultures Squamous cell carcinoma cervix Continue outpatient followin g with provider at [facility] in [place], [place], Dr. Stringer. Patient states she is on [facility] in [place], [place]. Pending MRI outpatient for cancer staging once released from current facility. RAIL CAR REPAIRMAN following. Patient is G 19, P 11, A8, serum preg negative. ===== DVT prophylaxisSCD. GI prophylaxisProtonix. CODE STATUSfull code. Total time spent in care of this patient: 40 min utes <Electronically signed by Gabe Casas MD> 05/022022-03-11 18:33:00-00:00 [facility] Name: YULIYA RICARDO Katelyn STLSJX [address] [facility] [facility] : 1985, Age: 36, S ex: [place] [address] Unit #: [id number], St atus: ADM IN [facility] #: [id number] Location: [address]-P Report Dict Dr.: Ching Layne MD *r Admission Date: 03/09/22 Report #: [id number] Discharge Date: CC: Brief Progress Note Report [...] signed by SARAH SHELDON MD> 03/112022-03-11 06:15:00-00:00 [facility] Name: YULIYA RODRÍGUEZ Ching Layne STLSJX [address] [facility] : 1985, Age: 36, S ex: [place] [address] Unit #: [id number], St atus: ADM IN Location: [address] DrHarper: Ching Layne MD *r Admission Date: 03/09/22 Report #: [id number] Discharge Date: CC: Brief Progress Note Report [...] Cell Carcinoma of the Cervix -following w [facility], Dr Stringer, DATA INTEGRATION ANALYST Onc -MRI done for staging, pending official read -bleeding stable, vitals stable -pain controlled, will d/c with Tylenol #3 dispo: back to penitentiary today. w ill talk w guard when [...] and Plan documented above. D/c back to penitentiary today. MRI done but not reported. Can send to [facility] onc w hen requested. <Electronically signed by Ching Layne MD> 0 03/11/2207 <Electronically signed by Narcisa Ruiz MD> 16 2022-03-10 16:38:00-00:00 [place] [facility] Name: ISAIAH FRANKYULIYA Thomas STLSJX [address] [facility] [address] [facility] [address] : 1985, Age: 36, S ex: [place] [address] Unit #: [id number], atus: ADM IN Location: [address] Report Dict DrHarper: Gabe Casas DO Admission Date: 03/09/22 Report #: [id number] Discharge Date: CC: Hospitalist Progress Note Report [...] 03/10/22 08:03 Lactated Ringer's IV 1,000 mls .[id number] AXEL Administration Pantoprazole Sodium 40 mg 03/10/22 [...] She reports outpatient follow-up with provider at [facility] in [place], Dr. Stringer, last visit 2 weeks ago. She states she was seen at [place] ED on 02/25 for vaginal bleeding concerns, and was given 3 units of PRBC for symptomati c anemia at that time. She returned to the [place] ED yesterday with onset of pelvic pain as well as continued vaginal bleeding. Prior to transfer to the [facility] she was given TXA and 1 unit PRBC . Symptomatic anemia In setting of heavy vaginal bleeding, 1 unit PRBC given prior to transfer to [facility]. Patient also given TXA with marked improvement in vaginal bleeding. Closely monitor labs Transfuse as needed Pelvic pain 03/09/2022: CT abdomen pelvi s W Con with findings of masslike prominence of the cervix. Follow-up Renal ultrasound unremarkable. Patient given Demerol IM by primary team Continue Franklin Hypotension Baseline BP maintaining 99/50 since initial pres entation to [place] ED. Closely monitor vital signs Continue IVF Chronic Constipation As needed MiraLAX, Colace Monitor I/O UTI Continue IV ceftriaxone Trend labs, trend cultures Squamous cell carcinoma cervix Continue outpatient followin g with provider at [facility] in [place], [place], Dr. Stringer. Patient states she is on [facility] in [place], [place]. Pending MRI outpatient for cancer staging once released from current facility. RAIL CAR REPAIRMAN following. Patient is G 19, P 11, A8, serum preg negative. ===== DVT prophylaxisSCD. GI prophylaxisProtonix. CODE STATUSfull code. Total time spent in care of this patient: 40 min utes <Electronically signed by Gabe Casas MD> 04/01 1639 2022-03-10 06:35:00-00:00 [facility] Name: YULIYA RICARDO Joe STLSJX [address] [facility] : 1985, Age: 36, S ex: [place] [address] Unit #: [id number], St atus: ADM IN Location: [place] [address] CS-P Report Dict Dr.: Gurmeet Naylor III, MD Admission Date: 03/09/22 Report #: [id number] Discharge Date: CC: Brief Progress Note Report Status: Signed - Brief Progress Note Encounter Date: 03/10/22 Encounter Time: 06:20 S HD #2 Continues with moderate bilateral pelv ic pain. No excessive vaginal bleeding. HD #2 rocephin. States that she slipped and fel l in the bathroom earlier. Did not hit her head, no injury. Did not notify the nursing staff. No shortness of breath, no chest pain, mild vaginal bleedin g. O Vital Signs (24 hours) Temp Pulse [...] rebound EXT no pathological pretibial edema, normal re flexes, no calf tenderness Laboratory Results - last [...] Naylor III, MD> 05/30 1335 2022-03-09 17:38:00-00:00 [facility] Name: YULIYA RICARDO Sara STLSJX [address] [facility] : 1985, Age: 36, S ex: [place] [address] Unit #: [id number]: ADM IN Location: [address] Report Dict : Polly Celis NP Admission Date: 03/09/22 Report #: [id number] Discharge Date: CC: Hospitalist Consult Note Report Status: Signed Hospitalist Consult - Consult Date Date: 03/09/22 Time: 17:38 - Reason for Consult Reason for Consult: Medical Management Requesting Physician: Dr. Naylor - History and Present Illness HPI: Patient is a 36-year-old fem laya with recent diagnosis of squamous cell carcinoma of the cervix. She reports outpatient follow-up with provider at [facility] in [place], Dr. Stringer, last visit 2 weeks ago. She is scheduled to hav e an MRI for staging of the cancer; however due to her current incarceration status this call s not been done yet. She states she was seen at [place] ED on 02/25 for vaginal bleeding concerns, a nd was given 3 units of PRBC for symptomatic anemia at that time. She returned to the [place] ED yes terday with onset of pelvic pain as well as continued vaginal bleeding. Prior to transfer to the [facility] she was given TXA and 1 [...] pain post administration of Demerol IV and Franklin over the past several hours. - Allergies/Home [...] She reports outpatient follow-up with provider at [facility] in [place], Dr. Stringer, last visit 2 weeks ago. She states she was seen at [facility] ED on 02/25 for vaginal bleeding concerns, and was given 3 units of PRBC for symptomati c anemia at that time. She returned to the [place] ED yesterday with onset of pelvic pain as well as continued vaginal bleeding. Prior to transfer to the [facility] she was given TXA and 1 unit PRBC . Symptomatic anemia In setting of heavy vaginal bleeding, 1 unit PRBC given prior to transfer to [facility]. Patient also given TXA with marked improvement in vaginal bleeding. Closely monitor labs Transfuse as needed Pelvic pain 03/09/2022: CT abdomen pelvi s W Con with findings of masslike prominence of the cervix. Follow-up Renal ultrasound unremarkable. Patient given Demerol IM by primary team Continue Franklin prn Hypotension Baseline BP maintaining 99/50 since initial pres entation to [facility] ED. Closely monitor vital signs Continue IVF Chronic Constipation As needed MiraLAX, Colace Monitor I/O UTI Continue IV ceftriaxone Trend labs, trend cultures Squamous cell carcinoma cervix Continue outpatient followin g with provider at [facility] in [place], [place], Dr. Stringer. Patient states she is on [facility] in [place], [place]. Pending MRI outpatient for cancer staging once released from current facility. RAIL CAR REPAIRMAN following. Patient is G 19, P 11, A8, serum preg negative. DVT prophylaxisSCD. GI prophylaxisProtonix. CODE STATUSfull code. <Electronically signed by Polly QIU> 0 03/10/22 1708 2022-03-09 09:41:00-00:00 [facility] Name: LASHAUN PAMELAVICKIYULIYA Joe STLSJX [address] [facility] : 1985, Age: 36, S ex: [place] [address] Unit #: [id number], St atus: ADM IN Location: [address] Report Dict DrHarper: Gurmeet Naylor III, MD Admission Date: 03/09/22 Report #: [id number] Discharge Date: CC: History Physical Report Status: Signed - History Physical Encounter Time: 03/09/22 Encounter Time: 09:30 36 year old female G 19 P 11 AB 8 CC Pelvic pain, vaginal bleeding HPI She was initially seen in [place] on 02/25/22 the above noted complaints. She was ultimately[facility] to [facility] in [place], Circulation Crew Leader Onc Dr Stringer, with th e finding of a mass of the cervix suspicious for cancer. Her biopsy showed squamous cell carcinoma of th e cervix. She was later discharged home from [facility]. Completion of her work up for the cancer will b een done upon f/u with Circulation Crew Leader Oncologyl. She is to have MRI for staging of the cancer. In [place] on 02/25 sh garcía received blood transfusion for the anemia secondary to her vaginal bleeding. Recieved 3 units of MN BC. Most recently she was seen here in our ER for retrosternal chest pain vaginal bleeding, pelvic pain. She w as cleared in the main ER and brought to the floor for admiission by the OB Hospitalist. Prior to coming to the [facility]la was given TXA for the bleeding, symptoms improved. Her bleeding is now mild. Her pelvic pain cont inues. It is located in the mid bilateral [...] TSVD, 8 SAB no d and c. DATA INTEGRATION ANALYST Monthly menses every month. LMP 2 weeks ag o. 7 day of flow. History of trichimonas. [...] bleeding LMP 2 weeks ago, present HGC negative, mostly secondary to cervix carcinoma P Admit for pain control. Monitor her vaginal b leeding, H AND H. All questions answered. jr <Electronically signed by Gurmeet Naylor III, MD> 19262021-10-11 14:14:00-00:00 [id number] [place], [place] PATIENT NAME: YULIYA LARA ADMIT D ATE: 10/11/21 ACCOUNT NO: [id number] ROOM NO: AGE: 36 REPORT TYPE: ELECTROCARDIOGRAM SEX: F : 83 ADMITTING PHYSICIAN: ATTENDING PHYSICIAN:Dallin Sanchez DO Order: [id number] Test Reason : cp Test Date/Time Stamp: [...] ECG Confirmed by MD Sanchez John (), video tape editor A IKE ZAMUDIO ([id number]) on 12/18/2021 8:47:39 AM Referred By: Self Referred Confirmed by:Dallin jeter MD Electronically Signed by Dallin Sanchez DO on at 0847 PATIENT NAME: YULIYA LARA 2021-10-11 14:10:00-00:00 [facility] ([facility]) OR [facility] EMERGENCY PROVIDER REPORT REPORT#:[id number] REPORT STATUS: Signed DATE:10/11/21 TIME: 1410 PATIENT: YULIYA LARA UNIT #: [id number] ROOM/BED: AGE: 36 SEX: F PCP PHYS: Armond Owens MD SERVICE AUTHOR: Dallin Sanchez DO * ALL edits or amendments must be made on the [employer]/computer document * Dallin Sanchez 10/11/21 1410: HPI- Female Free Text HPI Notes Free Text HPI Notes Patient is a 36-year-old female, currently in stody of a residential center, presenting to the emergency room for [...] had hemophilia. General Initial Greet Date/Time 10/11/21 6815 Presentation Chief Complaint Vaginal bleeding Review of [...] nsfer. She is being transferred to the [facility] ER and was accepted by the ER physician in order to get further evaluation with US and for further monitoring. Time of Re-Eval 1605 Patient Discharge Departure Vital Signs/Condition Condition Stable Clinical Impression Clinical Impression Primary Impression: Abnormal vaginal bleeding Secondary Impressions: Anemia, Lower abdominal p ain, Pre-syncope Discharge/Care Plan Referrals Provider Referral: Armond Owens MD Address: [address] [place] [address] Provider Referral: Yusra Arreguin MD Address: [address] [place] [address] Mary Vo 10/11/21 1655: Physical Exam Vital Signs Vital Signs First Documented: Result Date Time Pulse Ox 97 10/11 1335 B/P 102/51 10/11 1335 B/P Mean 68 10/11 133 O2 Delivery Room air 10/11 1334 Temp 36.9 10/11 1334 Pulse 65 10/11 133 Resp 16 10/11 1334 Last Documented: Result Date Time Pulse Ox 97 10/11 2054 B/P 104/64 10/11 2054 B/P Mean 77 10/11 2054 O2 Delivery Room air 10/11 2054 Temp 36.9 10/11 2054 Pulse 65 10/11 2054 Resp 16 10/11 2054 Interpretation Diagnostics Lab Results Interpretation Results Laboratory [...] pH (5.5 - 7.0) 6.0 Ur Specific [place] (1.001 - 1.035) 1.015 Urine Protein (NEGATIVE [...] % (Auto) (24 - 44 %) 37.8 Vance % (Auto) (0.0 - 4.0 %) 4.2 [...] 1530 Report Impression - Status: SIGNED Entered: 10/11/20211822 IMPRESSION: Findings consistent with 1.9 cm left ovarian hem orrhagic or corpus luteum cyst. Otherwise unremarkable exam. Impression By: Whitney Chua MD ULTRASOUND - DUP AB/PEL/SC COMP 10/11 1705 Report Impression - Status: SIGNED Entered: 10/11/20211822 [...] with her primary care provider or her SOFTWARE FIRMWARE ENGINEER. Return to E D immediately if condition worsens. Additional Text 2762 patient arrived from [place], blo od pressure is 87/49, patient is [...] 1,000 ML STAT STA 10/11 1713 DC 08/ IV 10/11 1812 1714 Sodium Chloride 1,000 ML BOLUS 10/11 1400 DCD 0 10/11 IV 02/08 1402 1534 Patient Discharge Departure Vital Signs/Condition Vital Signs First Documented: Result Date Time Pulse Ox 97 10/11 1335 B/P 102/51 10/11 1335 B/P Mean 68 10/11 133 O2 Delivery Room air 10/11 1334 Temp 36.9 10/11 1334 Pulse 65 10/11 1335 Resp 16 10/11 [...] needed for pain, follow-up with you r SOFTWARE FIRMWARE ENGINEER call soon for an appointment, return to [...] symptoms should prompt an immediate return to [facility] or the closest emergency department or [...] Dallin Sanchez DO on at 0723 RPT #:[id number] END OF REPORT 2020-01-25 07:58:00-00:00 [facility] ([facility]) OB Postpart Progr Note REPORT#:[id number] REPORT STATUS: Signed DATE:01/25/20 TIME: 757 PATIENT: YULIYA LARA UNIT #: [id number] ROOM/BED: Y214-1 : 83 AGE: 34 SEX: F ATTEND: Justin Kelly MD ADM AUTHOR: Pa Kelly MD * ALL edits or amendments must be made on the [employer]/computer document * Subjective Subjective Admission EGA: Weeks: [...] 0903 71 132/76 01/23 0901 66 100 01/23 0856 71 100 01/23 0851 72 100 01/23 0849 94.0 01/23 0849 53 120/81 01/23 0846 77 98 01/23 0841 66 98 01/23 0836 66 98 01/23 0832 78.0 01/23 0832 65 110/60 01/23 0831 73 99 01/23 0826 91 98 01/23 0821 77 95 01/23 0817 74.0 01/23 0817 68 105/58 01/23 0816 73 99 01/23 0811 87 96 01/23 0806 83 98 01/23 0802 67.0 01/23 [...] Pa Kelly MD on at 0759 RPT #:[id number] END OF REPORT 2020-01-24 10:26:00-00:00 [facility] ([facility]) OB Delivery Note REPORT#:[id number] REPORT STATUS: Signed DATE:01/24/20 TIME: 1026 PATIENT: YULIYA LARA UNIT #: [id number] ROOM/BED: Y287-1 : 83 AGE: 34 SEX: [...] baby (grams): 3420 Wt of baby (lbs/oz): 79 Gender: male 1 minute: 9 5 minutes: [...] Pa Kelly MD on at 1028 RPT #:[id number] END OF REPORT 2020-01-24 10:26:00-00:00 [facility]) OB Delivery Note REPORT#:[id number] REPORT STATUS: Signed DATE:01/24/20 TIME: 1026 PATIENT: YULIYA LARA UNIT #: [id number] ROOM/BED: Y287-1 : 83 AGE: 34 SEX: F ATTEND: Justin Kelly MD ADM AUTHOR: Pa Kelly MD * ALL edits or amendments must be made on the el [employer] document * See Addendum OB Delivery Pre-delivery GBS status: GBS status: unknown Prophylaxis administered: penicillin [place] evaluation at delivery: NRP certified pe rsonnel [...] Pa Kelly MD on at 1033 RPT #:[id number] END OF REPORT 2020-01-24 08:21:00-00:00 [facility] OB Intrapart Prog Note REPORT#:[id number] REPORT STATUS: Signed DATE:01/24/20 TIME: 820 PATIENT: YULIYA LARA UNIT #: [id number] ROOM/BED: [facility] : 83 AGE: 34 SEX: F ATTEND: Justin Kelly MD ADM AUTHOR: Pa Kelly MD * ALL edits or amendments must be made on the el [employer]/computer document * Subjective Subjective Admission EGA (wks/days): [...] Ox FiO2 01/23 98.2-98.5 66-97 16-18 82-110/48-60 63.0- 77.0 94-100 Patient Weight Weight (lb): 210 Weight (oz): Weight (kg): 95.254 Objective Cervical/ exam: Dilatation (cm): 8 Effacement (%): 35178 station: - 2 presentation: cephalic Est. wt [...] % (Auto) (24 - 44 %) 40.2 Vance % (Auto) (0.0 - 4.0 %) 4.5 [...] Monos (auto) (0.0 - 0.8 x10 3/uL) 0.3 3 Absolute Nucleated RBC (0.0 - 0.2 X10 [...] pH (5.5 - 7.0) 6.5 Ur Specific [place] (1.001 - 1.035) 1.003 Urine Protein (NEGATIVE mg/dL) NEGATIVE Urine Glucose (UA) (NEGATIVE mg/dL) NORMAL Urine Ketones (NEGATIVE mg/dL) NEGATIVE Urine Blood (NEGATIVE) NEGATIVE Urine Nitrite (NEGATIVE) NEGATIVE Urine Bilirubin (NEGATIVE) NEGATIVE Urine Urobilinogen (NORMAL mg/dL) NORMAL Ur Leukocyte Esterase (NEGATIVE) NEGATIVE Urine Comment VOLUME 10-12 ML Microbiology: Date/Time Procedure - Status Source Growth 01/23 9434 Group B Streptococcus Culture - COLB VAGINAL Diagnosis, Assessment Plan Assessment: normal FHR pattern, normal progress of labor, stable, doing well Plan: anticipate vag delivery Plan discussed with: patient, nurse Electronically Signed by Pa Kelly MD on at 0825 RPT #:[id number] END OF REPORT 2020-01-24 08:21:00-00:00 [facility]) OB Intrapart Prog Note REPORT#:[id number] REPORT STATUS: Signed DATE:01/24/20 TIME: 0821 PATIENT: YULIYA LARA UNIT #: [id number] ROOM/BED: Y2871 : 83 AGE: 34 SEX: F ATTEND: Justin Kelly MD ADM AUTHOR: Pa Kelly MD * ALL edits or amendments must be made on the el [employer]/computer document * See Addendum Subjective Subjective Admission [...] Cervical/ exam: Dilatation (cm): 8 Effacement (%): 46334 station: - 2 presentation: cephalic Est. wt [...] % (Auto) (24 - 44 %) 40.2 Vance % (Auto) (0.0 - 4.0 %) 4.5 [...] pH (5.5 - 7.0) 6.5 Ur Specific [place] (1.001 - 1.035) 1.003 Urine Protein (NEGATIVE mg/dL) NEGATIVE Urine Glucose (UA) (NEGATIVE mg/dL) NORMAL Urine Ketones (NEGATIVE mg/dL) NEGATIVE Urine Blood (NEGATIVE) NEGATIVE Urine Nitrite (NEGATIVE) NEGATIVE Urine Bilirubin (NEGATIVE) NEGATIVE Urine Urobilinogen (NORMAL mg/dL) NORMAL Ur Leukocyte Esterase (NEGATIVE) NEGATIVE Urine Comment VOLUME 10-12 ML Microbiology: Date/Time Procedure - Status Source Growth 01/23 0449 Group B Streptococcus Culture - COL B VAGINAL Diagnosis, Assessment Plan Assessment: normal FHR pattern, normal progress of labor, stable, doing well Plan: anticipate vag delivery Plan discussed with: patient, nurse Electronically Signed by Pa Kelly MD on at 0825 Addendum 1: 01/24/20 1032 by Pa Kelly MD Admitted at 37 weeks Electronically Signed by Pa Kelly MD on at 1032 RPT #:[id number] END OF REPORT 2018-04-17 06:54:00-00:00 [facility]) OB Postpart Progr Note REPORT#:[id number] REPORT STATUS: Signed DATE:04/17/18 TIME: 0654 PATIENT: YULIYA LARA UNIT #: [id number] ROOM/BED: Y213-1 : 83 AGE: 32 SEX: F ATTEND: Justin Kelly MD ADM AUTHOR: Armond Owens MD * ALL edits or amendments must be made on the [employer]/computer document * Subjective Subjective Status/Day: post (2) [...] er, office fu, contraception. at 0655 RPT #:[id number] END OF REPORT 2018-04-16 06:51:00-00:00 [facility]) OB Postpart Progr Note REPORT#:[id number] REPORT STATUS: Signed DATE:04/16/18 TIME: 06 PATIENT: YULIYA LARA UNIT #: [id number] ROOM/BED: [facility] : 83 AGE: 32 SEX: F ATTEND: [...] Rate 04/16 0412 98.6 66 18 113/61 02/ 2352 97.8 66 18 94/56 02/ 1900 98.2 74 18 99/54 02/ 1637 98.1 72 16 102/48 02/ 1505 98.3 75 16 105/52 02/ 1444 98.0 18 02/ 1444 76.0 02/ 1444 75 109/53 02/ 1414 79.0 02/ 1414 97.7 68 18 112/59 02/ 1359 97.7 18 02 1359 79.0 02/ 1359 69 118/55 02/ 1345 97.7 18 02/ 1345 89.0 02/ 1345 66 131/62 02/ 1329 84.0 02/ 1329 97.7 73 18 117/65 02/06 1314 84.0 02/ 1314 97.7 82 18 122/66 02/06 1244 76.0 02/ 1244 66 108/53 02/06 1214 63.0 02/06 1214 68 86/50 02/ 1145 67.0 02/ 1145 65 94/49 02/ 1116 69.0 02/06 1116 71 94/51 02/06 [...] care, discharge tomorro w at 0652 RPT #:[id number] END OF REPORT 2018-04-15 13:02:00-00:00 [facility] ([facility] OB Delivery Note REPORT#:[id number] REPORT STATUS: Signed DATE:04/15/18 TIME: 1302 PATIENT: YULIYA LARA UNIT #: [id number] ROOM/BED: [place] [id number] : 83 AGE: 32 SEX: F ATTEND: Justin Kelly MD ADM AUTHOR: Pa Kelly MD * ALL edits or amendments must be made on the el [employer]/computer document * OB Delivery Pre-delivery GBS status: GBS status: positive Prophylaxis administered: vancomycin [place] evaluation at delivery: NRP certified pe rsonnel EGA (weeks/days): 39 weeks (3 days) General VS: Last Documented: Result Date Time B/P Mean 76.0 04/15 1244 B/P 108/53 04/15 1244 Pulse 66 04/15 1244 Temp 98.2 04/15 1022 Resp 18 04/15 1022 Pulse Ox 100 04/15 0433 Membranes: AROM ROM date: 04/15/18 ROM time: 08 Amniotic fluid: clear Baby A Information Baby [...] Pa Kelly MD on at 1506 RPT #:[id number] END OF REPORT 2018-04-15 08:43:00-00:00 [facility] ([facility]) OB Intrapart Prog Note REPORT#:[id number] REPORT STATUS: Signed DATE:04/15/18 TIME: 08 PATIENT: YULIYA LARA UNIT #: [id number] ROOM/BED: [id number].Y289-1 : 83 AGE: 32 SEX: F ATTEND: Justin Kelly MD ADM AUTHOR: Pa Kelly MD * ALL edits or amendments must be made on the [employer]/computer document * Subjective Subjective Patient reports: Patient reports: Yes comfortable with epidural Objective Objective VS: Vital Signs Date Time Temp Pulse Resp B/P B/P Pulse O2 O2 F low FiO2 Mean Ox Delivery Rate 02/06 0744 74.0 02/06 0744 75 105/55 02/06 0714 70.0 02/06 0714 65 96/53 02/06 0708 98.5 18 02/06 0644 75.0 02/06 0644 78 108/52 02/06 [...] 02/06 0320 73.0 02/06 0320 62 104/53 04/15 318 98.4 16 04/14 2325 78.0 04/14 2325 78.0 04/14 2325 98.1 74 16 107/61 04/14 2325 98.1 74 16 Cervical/ exam: Dilatation (cm): 3 Effacement (%): [...] Signed by Pa Kelly MD on at 0845 RPT #:[id number] END OF REPORT
[2022-11-10] MEDS ORDERED: Meropenem 1000 MG/VIAL IV ONE (02:03)
[2022-11-10] MEDS ORDERED: NA CHLORIDE 0.9% 500 ML ONE ×3 (02:04→07:23)
[2022-11-10] MEDS ORDERED: ONDANSETRON 4 MG/2 ML VIAL ONE (02:04)
[2022-11-10] MEDS ORDERED: NA CHLORIDE 0.9% 100 ML ONE (02:04)
[2022-11-10] MEDS ORDERED: ACETAMINOPHEN 325 MG TABLET ONE ×2 (02:04→08:58)
[2022-11-10] MEDS ORDERED: HYDROMORPHONE HCL 1 MG/ML INJ ONE ×2 (02:04→05:36)
[2022-11-10] MEDS ORDERED: NA CHLORIDE 0.9% 2,000 ML ONE (02:05)
[2022-11-10] MEDS ORDERED: FAMOTIDINE 20 MG/2 ML VIAL IV ONE (02:05)
[2022-11-10 02:42] LABS: Absolute Lymphocytes (CBC) 1.5 K/uL (0.7-4.9); Hematocrit 22.1 % (36.0-45.0); MCV 92.4 fL (80-100); MPV 6.5 fL (7.6-11.3); Platelets 509 thou/uL (152-406); RBC Red Blood Cell Count 2.39 M/uL (3.86-4.86)
[2022-11-10 02:46] LABS: Protime INR 1.19
[2022-11-10 03:04] LABS: Albumin 2.4 g/dL (3.4-5.0); Alkaline Phosphatase 151 U/L (45-117); BUN Blood Urea Nitrogen 20 mg/dL (7-18); Bicarbonate 23 mEq/L (21-32); Bilirubin Total 0.2 mg/dL (0.2-1.0); Glomerular Filtration Rate 24 ml/min (=/>90); Glucose Level 90 mg/dL (74-106); Potassium 3.5 mEq/L (3.5-5.1); Protein, Total 7.3 g/dL (6.4-8.2); Sodium Level 132 mEq/L (136-145)
[2022-11-10 03:05] LABS: Magnesium 2.1 mg/dL (1.6-2.4); NT PRO-BNP 949 pg/mL (<125); Troponin High Sensitivity 9.8 pg/mL (<58.9)
[2022-11-10 03:09] LABS: ALT/SGPT < 10 U/L (13-56); AST/SGOT < 4 U/L (15-37); Bilirubin Direct < 0.1 mg/dL (0-0.2); Bilirubin Indirect, Calculated ND mg/dL (0.2-0.8)
--- NOTE | 2022-11-10 03:21 | EDPHYS ---
Physician Documentation [facility] Name: Jayashree Khan Age: 37 yrs Sex: Female : 1985 Arrival Date: 11/10/2022 Time: 01:23 Bed 4 Private MD: ANMOL Physician Gerhard Loja HPI: 11/10 01:48 This 37 yrs old Female presents to ER via EMS with complaints of back pain , amna fever, bilateral neph. 01:48 The patient presents with abdominal pain. Onset: The symptoms/episode began/occurred 3 amna day(s) ago. The patient presents with pain that is acute, with no known mechanism of injury. The symptoms are located in the left low back, left mid back, right mid back and right low back. Onset: The symptoms/episode began/occurred 3 day(s) ago. The pain does not radiate. Associated signs and symptoms: The patient has no apparent associated signs or symptoms. Modifying factors: The patient symptoms are alleviated by remaining still, the patient symptoms are aggravated by bending, coughing, standing, walking. Severity of symptoms: At their worst the symptoms were moderate, severe, in the emergency department the symptoms are unchanged. 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 - Social history:: Smoking status: unknown. - Family history:: not pertinent. ROS: 01:48 Eyes: Negative for injury, pain, redness, and discharge, ENT: Negative for injury, amna pain, and discharge, Neck: Negative for injury, pain, and swelling, Cardiovascular: Negative for chest pain, palpitations, and edema, Respiratory: Negative for shortness of breath, cough, wheezing, and pleuritic chest pain, Abdomen/GI: Negative for abdominal pain, nausea, vomiting, diarrhea, and constipation, : Negative for injury, bleeding, discharge, and swelling, MS/Extremity: Negative for injury and deformity, Skin: Negative for injury, rash, and discoloration, Neuro: Negative for headache, weakness, numbness, tingling, and seizure, Psych: Negative for depression, anxiety, suicide ideation, homicidal ideation, and hallucinations, Allergy/Immunology: Negative for hives, rash, and allergies, Endocrine: Negative for neck swelling, polydipsia, polyuria, polyphagia, and marked weight changes. 01:48 Constitutional: Positive for fever, poor PO intake. 01:48 Back: Positive for flank pain, bilaterally. Exam: 01:48 Constitutional: This is a well developed, well nourished patient who is awake, alert, amna and in no acute distress. Head/Face: Normocephalic, atraumatic. Eyes: Pupils equal round and reactive to light, extra-ocular motions intact. Lids and lashes normal. Conjunctiva and sclera are non-icteric and not injected. Cornea within normal limits. Periorbital areas with no swelling, redness, or edema. ENT: Nares patent. No nasal discharge, no septal abnormalities noted. Tympanic membranes are normal and external auditory canals are clear. Oropharynx with no redness, swelling, or masses, exudates, or evidence of obstruction, uvula midline. Mucous membranes moist. Neck: Trachea midline, no thyromegaly or masses palpated, and no cervical lymphadenopathy. Supple, full range of motion without nuchal rigidity, or vertebral point tenderness. No Meningismus. Chest/axilla: Normal chest wall appearance and motion. Nontender with no deformity. No lesions are appreciated. Respiratory: Lungs have equal breath sounds bilaterally, clear to auscultation and percussion. No rales, rhonchi or wheezes noted. No increased work of breathing, no retractions or nasal flaring. Skin: Warm, dry with normal turgor. Normal color with no rashes, no lesions, and no evidence of cellulitis. MS/ Extremity: Pulses equal, no cyanosis. Neurovascular intact. Full, normal range of motion. Neuro: Awake and alert, GCS 15, oriented to person, place, time, and situation. Cranial nerves II-XII grossly intact. Motor strength 5/5 in all extremities. Sensory grossly intact. Cerebellar exam normal. Normal gait. 01:48 Cardiovascular: Rate: tachycardic, actual rate is 118 bpm, Rhythm: regular, Pulses: Pulses are 4+ in bilateral radial, brachial, femoral, popliteal, posterior tibial and and dorsalis pedis arteries.. Heart sounds: normal, normal S1and S2, no S3 or S4, no murmur, no rub, no gallop, Edema: is not appreciated, JVD: is not appreciated. 01:48 Respiratory: the patient does not display signs of respiratory distress, Respirations: normal, Breath sounds: are clear throughout, Respiratory rate: 20 01:48 Back: pain, that is moderate, of the left mid back and right mid back, ROM is painful, with all movement, normal spinal alignment noted, CVA tenderness, that is moderate, that is severe, is noted bilaterally. 03:10 ECG was reviewed by the Attending Physician. [facility] Vital Signs: 01:33 BP 96 / 51; Pulse 118; Resp 20; Temp 99.3(O); Pulse Ox 100% on R/A; Weight 51.26 kg; kl Height 5 ft. 5 in. ; Pain 10/10; 02:52 BP 117 / 68; Pulse 104; Resp 20; Pulse Ox 100% ; vc1 05:02 BP 96 / 57; Pulse 104; Resp 35; Pulse Ox 100% ; vc1 07:55 BP 94 / 73; Pulse 114; Resp 20 S; Pulse Ox 100% on R/A; kc6 08:40 Pulse 113; Resp 20 S; Pulse Ox 100% on R/A; kc6 09:30 BP 91 / 63; Pulse 112; Resp 21; Pulse Ox 100% on R/A; hb 01:33 Body Mass Index 18.80 (51.26 kg, 165.1 cm) kl 01:33 Pain Scale: Adult kl MDM: 01:34 Patient medically screened. [facility] 01:53 Differential diagnosis: arthritis, Metastatic Disease Neoplasm Peptic Ulcer amna Pyelonephritis Renal Infarction Ureterolithiasis gastritis, non-specific abd pain. Data reviewed: vital signs, nurses notes, EMS record, lab test result(s), EKG, radiologic studies, CT scan, plain films. Consideration of Admission/Observation Escalation of care including admission/observation considered. I considered the following discharge prescriptions or medication management in the emergency department Medications were administered in the Emergency Department. See MAR. Independent interpretation of the following test(s) in the Emergency Department EKG: See my EKG interpretation above. Test considered but Not performed: Ultrasound no abd usg. Historians other than the Patient: EMS: ems well informed. Care significantly affected by the following chronic conditions: Cancer, anemia, cervical ca, hepatomegaly, ovarian and cervical ca. Counseling: I had a detailed discussion with the patient and/or guardian regarding the historical points, exam findings, and any diagnostic results supporting the discharge/admit diagnosis, lab results, radiology results, the need for further work-up and treatment in the hospital. 11/10 01:46 Order name: Basic Metabolic Panel; Complete Time: 03:11 [facility] 11/10 01:46 Order name: CBC with Diff; Complete Time: 03:11 [facility] 11/10 01:46 Order name: LFT's; Complete Time: 03:11 [facility] 11/10 01:46 Order name: Magnesium; Complete Time: 03:11 [facility] 11/10 01:46 Order name: NT PRO-BNP; Complete Time: 03:11 [facility] 11/10 01:46 Order name: PT-INR; Complete Time: 03:11 [facility] 11/10 01:46 Order name: Troponin HS; Complete Time: 03:11 [facility] 11/10 01:46 Order name: Blood Culture Adult (2) [facility] 11/10 01:46 Order name: Lactate w/ 2H reflex if indic.; Complete Time: 03:11 [facility] 11/10 03:15 Order name: Type And Screen [facility] 11/10 05:42 Order name: Packed RBC Leukored EDMI 11/10 06:09 Order name: SARS RAPID; Complete Time: 08:27 11/10 01:46 Order name: XRAY Chest (1 view) [facility] 11/10 03:16 Order name: CT Abd/Pelvis - Without Contrast [facility] 11/10 01:46 Order name: EKG; Complete Time: 01:47 [facility] 11/10 01:46 Order name: Cardiac monitoring; Complete Time: 02:50 [facility] 11/10 01:46 Order name: EKG - Nurse/Tech; Complete Time: 03:04 amna 11/10 01:46 Order name: IV Saline Lock; Complete Time: 02:50 [facility] 11/10 01:46 Order name: Labs collected and sent; Complete Time: 02:50 [facility] 11/10 01:46 Order name: O2 Per Protocol; Complete Time: 02:50 [facility] 11/10 01:46 Order name: O2 Sat Monitoring; Complete Time: 02:50 amna 11/10 03:15 Order name: Transfuse; Complete Time: 09:27 [facility] 11/10 06:44 Order name: IV Saline Lock - Large Bore; Complete Time: 07:15 [facility] EC:10 Rate is 104 beats/min. Rhythm is regular. QRS [place] is Normal. [place] interval is normal. [facility] QRS interval is normal. QT interval is normal. No Q waves. T waves are Normal. No ST changes noted. Clinical impression: Sinus tachycardia. Interpreted by me. Reviewed by me. Administered Medications: 02:30 Drug: Meropenem IV 1 grams Route: IV; Rate: per protocol; Site: right upper arm; vc1 07:53 Follow up: Response: No adverse reaction; IV Status: Completed infusion; IV Intake: kc6 100ml 02:30 Drug: NS 0.9% IV 1000 ml Route: IV; Rate: 1 bolus; Site: right upper arm; vc1 07:53 Follow up: Response: No adverse reaction; IV Status: Completed infusion; IV Intake: kc6 1000ml 02:30 Drug: HYDROmorphone IVP 1 mg Route: IVP; Site: right upper arm; vc1 05:06 Follow up: Response: No adverse reaction; Marked relief of symptoms vc1 02:30 Drug: Famotidine IVP 20 mg Route: IVP; Site: right upper arm; vc1 05:06 Follow up: Response: No adverse reaction; Marked relief of symptoms vc1 02:48 Drug: Ondansetron IVP 4 mg Route: IVP; Site: right upper arm; vc1 05:06 Follow up: Response: No adverse reaction; Marked relief of symptoms vc1 02:49 Drug: NS 0.9% IV 500 ml Route: IV; Rate: bolus; Site: right upper arm; vc1 07:53 Follow up: Response: No adverse reaction; IV Status: Completed infusion; IV Intake: kc6 500ml 02:49 Drug: Acetaminophen PO 650 mg Route: PO; vc1 05:05 Follow up: Response: No adverse reaction; Marked relief of symptoms vc1 05:31 Drug: NS 0.9% IV 1000 ml Route: IV; Rate: 125 ml/hr; Site: right upper arm; vc1 12:07 Follow up: Response: No adverse reaction; IV Status: Infusion continued upon transfer; kc6 IV Intake: 1000ml 05:31 Drug: HYDROmorphone IVP 1 mg Route: IVP; Site: right upper arm; vc1 07:54 Follow up: Response: No adverse reaction; Pain is decreased; RASS: Alert and Calm (0) kc6 07:29 Drug: vancoMYCIN IVPB 1 grams Route: IVPB; Infused Over: 2 hrs; Site: right forearm; kc6 08:52 Follow up: Response: No adverse reaction; IV Status: Completed infusion; IV Intake: kc6 250ml 07:29 Drug: NS 0.9% IV 500 ml Route: IV; Rate: bolus; Site: right forearm; kc6 08:52 Follow up: Response: No adverse reaction; IV Status: Completed infusion; IV Intake: kc6 500ml 08:59 Drug: Acetaminophen PO 650 mg Route: PO; kc6 09:57 Follow up: Response: No adverse reaction; Temperature is decreased kc6 08:59 Drug: diphenhydrAMINE IVP 12.5 mg Route: IVP; Site: right antecubital; kc6 09:57 Follow up: Response: No adverse reaction kc6 11:51 Drug: morphine IVP or IV 2 mg Route: IVP; Infused Over: 4 mins; Site: right antecubital;kc6 12:07 Follow up: Response: No adverse reaction kc6 Disposition Summary: 11/10/22 03:20 Transfer Ordered Transfer Location: [facility] amna Reason: Higher level of care amna Condition: Fair amna Problem: new amna Symptoms: have improved amna 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 EDMS EDMS 05:42 03:15 PACKED RBC LEUKORED+BB.LAB.BRZ ordered. EDMS EDMS 05:42 03:17 ABO/RH typing ordered. EDMS EDMS 05:42 03:17 Antibody Screen ordered. EDMS EDMS 07:04 03:20 to [facility] amna amna 08:26 07:04 to [facility] amna amna 08:28 08:26 to [facility] amna amna 09:38 08:28 to [facility] eb 12:08 09:38 Dr. Ajay Smith [facility] Physician eb kc6
--- NOTE | 2022-11-10 03:21 | ER ---
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 Coronavirus screen: Vaccine status: Patient reports being unvaccinated. Ebola Screen: Patient negative for fever greater than or equal to 101.5 degrees Fahrenheit, and additional compatible Ebola Virus Disease symptoms. Initial Sepsis Screen: Does the patient meet any 2 criteria? Altered Mental Status. HR > 90 bpm. Does the patient have a suspected source of infection? Yes: Catheter related infection ([facility]/dialysis/PICC/central line). Risk Assessment: Do you want to hurt yourself or someone else? Patient reports no desire to harm self or others. Onset of symptoms is unknown. 01:33 Method Of Arrival: EMS: [facility] 01:33 Acuity: WALT 2 kl Triage Assessment: 01:36 General: Appears distressed, uncomfortable, unkempt, Behavior is anxious. Pain: kl Complains of pain in back generalized body aches. EENT: No deficits noted. : nephrostomy tubes in x 2 months pt reports tubes are leaking. 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 - Social history:: Smoking status: unknown. - Family history:: not pertinent. Screenin:11 [facility] ED Fall Risk Assessment (Adult) History of falling in the last 3 months, kl including since admission No falls in past 3 months (0 pts) Confusion or Disorientation No (0 pts) Intoxicated or Sedated No (0 pts) Impaired Gait Yes (1 pt) Mobility Assist Device Used No (0 pt) Altered Elimination No (0 pt) Score/Fall Risk Level 0 - 2 = Low Risk Oriented to surroundings, Maintained a safe environment. Abuse screen: Denies threats or abuse. Nutritional screening: No deficits noted. Tuberculosis screening: No symptoms or risk factors identified. Assessment: 02:12 Reassessment:. kl 02:51 Reassessment: Patient and/or family updated on plan of care and expected duration. Pain vc1 level reassessed. Patient states feeling better. Patient states symptoms have improved. 04:00 Reassessment: Patient and/or family updated on plan of care and expected duration. Pain vc1 level reassessed. Patient states symptoms have improved. 05:00 Reassessment: Patient and/or family updated on plan of care and expected duration. Pain vc1 level reassessed. Patient states feeling better. Patient states symptoms have improved. 07:00 Reassessment: Patient appears in no apparent distress at this time. Patient and/or kc6 family updated on plan of care and expected duration. Pain level reassessed. Patient is alert, oriented x 3, equal unlabored respirations, skin warm/dry/pink. 07:00 Cardiovascular: Heart tones S1 S2 present Capillary refill < 3 seconds Rhythm is sinus kc6 tachycardia. GI: No signs and/or symptoms were reported involving the gastrointestinal system. : LISA nephrostomy tubes present. EENT: No signs and/or symptoms were reported regarding the EENT system. Derm: No signs and/or symptoms reported regarding the dermatologic system. Skin is intact, is healthy with good turgor, Skin is dry, Skin is pale, Skin temperature is warm. Musculoskeletal: No signs and/or symptoms reported regarding the musculoskeletal system. Circulation, motion, and sensation intact. Capillary refill < 3 seconds, Range of motion: intact in all extremities. 07:55 Reassessment: Patient appears in no apparent distress at this time. No changes from kc6 previously documented assessment. Patient and/or family updated on plan of care and expected duration. Pain level reassessed. Patient is alert, oriented x 3, equal unlabored respirations, skin warm/dry/pink. 08:40 Reassessment: Patient appears in no apparent distress at this time. No changes from [facility] previously documented assessment. Patient and/or family updated on plan of care and expected duration. Pain level reassessed. Patient is alert, oriented x 3, equal unlabored respirations, skin warm/dry/pink. 09:10 Reassessment: please refer to blood transfusion flow sheet for further vital signs. [facility] 09:25 Reassessment: pts temp is 100.[address] Castaneda notified. verbal orders received to [facility] proceed with blood transfusion at this time as pt has been febrile periodically since arrival in ED. 09:40 Reassessment: Patient appears in no apparent distress at this time. No changes from [facility] previously documented assessment. Patient and/or family updated on plan of care and expected duration. Pain level reassessed. Patient is alert, oriented x 3, equal unlabored respirations, skin warm/dry/pink. 11:40 Reassessment: Patient appears in no apparent distress at this time. No changes from [facility] previously documented assessment. Patient and/or family updated on plan of care and expected duration. Pain level reassessed. Patient is alert, oriented x 3, equal unlabored respirations, skin warm/dry/pink. Vital Signs: 01:33 BP 96 / 51; Pulse 118; Resp 20; Temp 99.3(O); Pulse Ox 100% on R/A; Weight 51.26 kg; kl Height 5 ft. 5 in. ; Pain 10/10; 02:52 BP 117 / 68; Pulse 104; Resp 20; Pulse Ox 100% ; vc1 05:02 BP 96 / 57; Pulse 104; Resp 35; Pulse Ox 100% ; vc1 07:55 BP 94 / 73; Pulse 114; Resp 20 S; Pulse Ox 100% on R/A; kc6 08:40 Pulse 113; Resp 20 S; Pulse Ox 100% on R/A; kc6 09:30 BP 91 / 63; Pulse 112; Resp 21; Pulse Ox 100% on R/A; hb 01:33 Body Mass Index 18.80 (51.26 kg, 165.1 cm) kl 01:33 Pain Scale: Adult kl ED Course: 01:32 Patient arrived in ED. kl 01:34 Gerhard Loja MD is Attending Physician. amna 01:35 Triage completed. kl 02:10 Missed attempt(s): 20 gauge in left antecubital area. blood culture collected pt non kl compliant and removed catheter. 22 gauge in left antecubital area. pt tolerated poorly. 02:11 Patient has correct armband on for positive identification. Bed in low position. Call kl light in reach. Side rails up X2. 02:28 Accessed midline placed by LAZARUS Dunham. vc1 02:55 XRAY Chest (1 view) In Process Unspecified. EDMS 03:42 CT Abd/Pelvis - Without Contrast In Process Unspecified. EDMS 05:20 Type And Screen Sent. cg3 06:01 Initiated transfer to [facility], spoke with Sherley. wm 06:37 connected the Urologist typewriter ribbon winder for [facility] with Dr. Loja for patient eb transfer consultation. 06:[address] Loja with Adelia from the [facility] transfer center. eb 07:00 Report received from Soheila Yan RN \T\ Humera Cortez RN. kc6 07:00 Arm band placed on. kc6 07:[address] Babin the Typesetter Perforator Operator oncologist typewriter ribbon winder for [facility] with Dr. Freedom davis for patient transfer consultation. 07:[address] Temple the tree faller typewriter ribbon winder for [facility] with Dr. Loja for eb patient transfer consultation. 09:02 per Mario there are no MICU beds/ the patient will have to go to the ER/ She will call eb back shortly with an ED physician for doc to doc. 09:30 administrative approval given by Mario Bernal Rn/ patient has been accepted to [facility] ED/ Dr. Derek Moss has accepted the patient to the ED without conference with Dr. Castaneda/ report to be called through the transfer center at [phone]. 12:07 No provider procedures requiring assistance completed. Patient transferred, IV remains kc6 in place. Administered Medications: 02:30 Drug: Meropenem IV 1 grams Route: IV; Rate: per protocol; Site: right upper arm; vc1 07:53 Follow up: Response: No adverse reaction; IV Status: Completed infusion; IV Intake: kc6 100ml 02:30 Drug: NS 0.9% IV 1000 ml Route: IV; Rate: 1 bolus; Site: right upper arm; vc1 07:53 Follow up: Response: No adverse reaction; IV Status: Completed infusion; IV Intake: kc6 1000ml 02:30 Drug: HYDROmorphone IVP 1 mg Route: IVP; Site: right upper arm; vc1 05:06 Follow up: Response: No adverse reaction; Marked relief of symptoms vc1 02:30 Drug: Famotidine IVP 20 mg Route: IVP; Site: right upper arm; vc1 05:06 Follow up: Response: No adverse reaction; Marked relief of symptoms vc1 02:48 Drug: Ondansetron IVP 4 mg Route: IVP; Site: right upper arm; vc1 05:06 Follow up: Response: No adverse reaction; Marked relief of symptoms vc1 02:49 Drug: NS 0.9% IV 500 ml Route: IV; Rate: bolus; Site: right upper arm; vc1 07:53 Follow up: Response: No adverse reaction; IV Status: Completed infusion; IV Intake: kc6 500ml 02:49 Drug: Acetaminophen PO 650 mg Route: PO; vc1 05:05 Follow up: Response: No adverse reaction; Marked relief of symptoms vc1 05:31 Drug: NS 0.9% IV 1000 ml Route: IV; Rate: 125 ml/hr; Site: right upper arm; vc1 12:07 Follow up: Response: No adverse reaction; IV Status: Infusion continued upon transfer; [facility] IV Intake: 1000ml 05:31 Drug: HYDROmorphone IVP 1 mg Route: IVP; Site: right upper arm; vc1 07:54 Follow up: Response: No adverse reaction; Pain is decreased; RASS: Alert and Calm (0) kc6 07:29 Drug: vancoMYCIN IVPB 1 grams Route: IVPB; Infused Over: 2 hrs; Site: right forearm; kc6 08:52 Follow up: Response: No adverse reaction; IV Status: Completed infusion; IV Intake: kc6 250ml 07:29 Drug: NS 0.9% IV 500 ml Route: IV; Rate: bolus; Site: right forearm; kc6 08:52 Follow up: Response: No adverse reaction; IV Status: Completed infusion; IV Intake: kc6 500ml 08:59 Drug: Acetaminophen PO 650 mg Route: PO; kc6 09:57 Follow up: Response: No adverse reaction; Temperature is decreased kc6 08:59 Drug: diphenhydrAMINE IVP 12.5 mg Route: IVP; Site: right antecubital; kc6 09:57 Follow up: Response: No adverse reaction kc6 11:51 Drug: morphine IVP or IV 2 mg Route: IVP; Infused Over: 4 mins; Site: right antecubital;kc6 12:07 Follow up: Response: No adverse reaction kc6 Medication: 02:11 VIS not applicable for this client. kl Intake: 07:53 IV: 100ml; Total: 100ml. kc6 07:53 IV: 1000ml; Total: 1100ml. kc6 07:53 IV: 500ml; Total: 1600ml. kc6 08:52 IV: 250ml; Total: 1850ml. kc6 08:52 IV: 500ml; Total: 2350ml. kc6 12:07 IV: 1000ml; Total: 3350ml. kc6 Outcome: 03:20 ER care complete, transfer ordered by . [facility] 12:07 Transferred by ground EMS to [facility], Transfer form completed. kc6 Note: report called to HUGO Roberts 12:07 Condition: stable 12:07 Instructed on the need for transfer. 12:08 Patient left the ED. kc6 Signatures: Dispatcher [employer] EDEmily Medel RN RN kl Anderson, Corey, MD MD cha Baxter, Heather, RN RN hb Botello, Elizabeth eb Marsh, Wendy wm Calcote, Vanessa, RN RN vc1 Campbell, Kaitlyn, RN RN kyler Linda Marks 3 Corrections: (The following items were deleted from the chart) 02:48 02:47 Famotidine IVP 20 mg IVP in right upper arm vc1 vc1 05:42 05:20 ABO/RH typing drawn and sent. cg3 EDMS 05:42 05:20 Antibody Screen drawn and sent. 3 EDMS 09:36 07:00 Reassessment: Patient appears in no apparent distress at this time. Patient kc6 and/or family updated on plan of care and expected duration. Pain level reassessed. Patient is alert, oriented x 3, equal unlabored respirations, skin warm/dry/pink. kc6
[2022-11-10 07:19] LABS: SARS-CoV-2 Antigen Rapid Res Negative (Negative)
[2022-11-10] MEDS ORDERED: VANCOMYCIN 1 GM/VIAL ONE (07:23)
[2022-11-10] MEDS ORDERED: DIPHENHYDRAMINE 50 MG/ML VIAL ONE (08:57)
[2022-11-10] MEDS ORDERED: NA CHLORIDE 0.9% 250 ML ONE (11:07)
[2022-11-10] MEDS ORDERED: MORPHINE 2 MG/ML SYR ONE (11:57)
[2022-11-10 12:16] VITALS: O2SAT 100
[2022-11-10 12:17] VITALS: TEMP 99.3
[2022-11-10 12:22] VITALS: BP 91/63
--- NOTE | 2022-11-10 18:00 | RAD REPORT ---
EXAM DESCRIPTION: CT - Abdomen Pelvis Wo Contrast - 11/10/2022 7:41 am COMPARISON: CT abdomen pelvis September 12, 2022 CLINICAL HISTORY: [facility] MAIN ABD PAIN TECHNIQUE: CT of the abdomen and pelvis was acquired without IV contrast material. Coronal and sag ittal reconstructions were obtained. Automated exposure control was utilized on this examination as a dose lowering technique. FINDINGS: Lung bases: Clear. *Evaluation of solid organs is limited due to lack of IV contrast. Liver: Normal. Gallbladder and biliary: Gallbladder sludge. Unremarkable biliary tree. Pancreas: Normal. Spleen: Normal. Adrenal glands: Normal adrenal glands. Kidneys: Moderate bilateral hydronephrosis with nephrostomy catheters in place. Stomach and Small Bowel: The stomach and small bowel are normal. Urinary bladder: Wall thickening with internal gas. Fistula to the lower uterine segment. Uterus and Adnexa: Fluid and gas in the endometrium extending to the vagina. This measures 6.2 x 5.6 x 2.1 cm. Colon and Appendix: The colon is unremarkable. No evidence of appendicitis. Retroperitoneum and lymph nodes: Normal. Vascular: Unremarkable. Peritoneal cavity: No ascites or free air. Musculoskeletal and soft tissues: Soft tissues are unremarkable. No aggressive bone lesions. No com pression fracture. IMPRESSION: ABDOMEN/PELVIS IMPRESSION: 1. Fluid and gas measuring up to 6.2 cm extends from the endometrium to the vagina. This is concernin g for abscess in the context of cervical malignancy. 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 2. Moderate bilateral hydronephrosis with nephrostomy catheters in place. 3. Gallbladder sludge. Electronically signed by: Jean Morales MD 11/10/2022 6:19 AM CDT Due to temporary technical issues with the PACS/Fluency reporting system, reports are being signed by the in house radiologists without review as a courtesy to insure prompt reporting. The interpreting radiologist is fully responsible for the content of the report.
--- NOTE | 2022-11-10 18:02 | RAD REPORT ---
EXAM DESCRIPTION: RAD - Chest Single View - 11/10/2022 2:53 am CLINICAL HISTORY: Cough;Fever TECHNIQUE: AP chest COMPARISON: None available for comparison FINDINGS: CHEST: Heart: The cardiomediastinal silhouette is within normal limits. Lungs: No focal consolidation. Mediastinum: Unremarkable Pleura: No appreciable effusion. No pneumothorax. Bones: Intact IMPRESSION: No acute cardiopulmonary disease. Electronically signed by: Ramses Aguiar MD 11/10/2022 5:13 AM CDT Due to temporary technical issues with the PACS/Fluency reporting system, reports are being signed by the in house radiologists without review as a courtesy to insure prompt reporting. The interpreting radiologist is fully responsible for the content of the report.
--- NOTE | 2022-11-12 16:55 | EKG ---
Test Date: 2022-11-10 Test Time: 02:54:08 Personal Health Coach: SAADIA MEASUREMENT RESULTS: Intervals: Rate: 104 ND: 126 QRSD: 78 QT: 352 QTc: 462 [place]: P: 72 ND: 126 QRS: 43 T: 76 INTERPRETIVE STATEMENTS: Sinus tachycardia Possible Left atrial enlargement Borderline ECG Compared to ECG 07/21/2022 07:29:10 Ventricular premature complex(es) no longer present Left-axis deviation no longer present Incomplete right bundle-branch block no longer present Electronically Signed On 11-12-22 16:46:23 CDT by Nam Azevedo
== END 2022-11-10 12:08 | disposition short-term general hospital (02) ==
LOC: ER 01:23
PROC: 30233N1 Transfusion of Nonautologous Red Blood Cells into Peripheral Vein, Percutaneous Approach (ICD-10-PCS; principal; 2022-11-10)
DX: Z43.6 Encounter for attention to other artificial openings of urinary tract (principal); D64.9 Anemia, unspecified; N13.39 Other hydronephrosis; N82.0 Vesicovaginal fistula; N30.00 Acute cystitis without hematuria; L02.215 Cutaneous abscess of perineum; N17.9 Acute kidney failure, unspecified; R10.819 Abdominal tenderness, unspecified site; Z88.0 Allergy status to penicillin; Z88.6 Allergy status to analgesic agent; Z85.41 Personal history of malignant neoplasm of cervix uteri; Z85.43 Personal history of malignant neoplasm of ovary; Z20.822 Contact with and (suspected) exposure to COVID-19
CPT/HCPCS: 36415; 71045; 74176; 80048; 80076; 83605; 83735; 83880; 84484; 85025; 85610; 86850; 86900; 86901; 86920; 86922; 87040; 87811; 93005; 99285; J1170; J1200; J2185; J2270; J2405; J7030; J7040; J7050; P9016

== ENCOUNTER 2022-11-26 00:32 | Emergency (ER) | payer SELFPAY ==
--- OUTSIDE RECORDS SUMMARY | 2022-11-26 00:43 | XMS REPORT | Continuity of Care Document ---
:1985 Author Organization [facility] t Address [address] [place] [address] Care Team Providers Name Role Phone Pcp, Patient Does Not Have A Primary Care Physician [phone] OUMAR KATHLEEN Attending Clinician Unavailable WASHINGTON RAMOS Attending Clinician Unavailable EDWIGE STEPHENS Attending Clinician Unavailable Armond Owens Attending Clinician Unavailable Fiona Aldridge Attending Clinician Unavailable Jojo Escobar Attending Clinician Doctor Unassigned, Scissors Attending Clinician Unavailable Manny ARIAS, Louisa [place] Attending Clinician Angelica Ngo LVN Attending Clinician ELLI ENCARNACION Attending Clinician Unavailable Elli Encarnacion MD Attending Clinician Vern Bell DO Attending Clinician BEN HUNG Attending Clinician Unavailable MT COY Attending Clinician Unavailable Farzaneh Horvath Attending Clinician ELENI GRAMAJO Attending Clinician Unavailable Doris ANDRADE, Amalia Zapata Attending Clinician [phone] Nayla ANDRADE, Hussein Chand Attending Clinician Faisal ANDRADE, Eleni Leary Attending Clinician [phone] Boy Ndiaye Attending Clinician Unavailable Jodie ANDRADE, Hebert Joaquin Attending Clinician [phone] Gabe Casas Attending Clinician Unavailable Livier Carver Attending Clinician Unavailable Sidney ANDRADE, Bradley Rich Attending Clinician [phone] CARTER, DANA Attending Clinician Unavailable Rick ANDRADE, Noris Castaneda Attending Clinician Catherine Mooney MD Attending Clinician [phone] Miah ANDRADE, [facility] In Attending Clinician Carter ANDRADE, Dana Attending Clinician Louisa Sosa Attending Clinician Unavailable [facility] Attending Clinician Unavailable Dallin Sanchez Attending Clinician Unavailable WASHINGTON RAMOS Admitting Clinician Unavailable Armond Owens Admitting Clinician Unavailable ELLI ENCARNACION Admitting Clinician Unavailable Elli Encarnacion MD Admitting Clinician MT CYO Admitting Clinician Unavailable AMALIA GEORGE Admitting Clinician Unavailable Bárbara Lemons Admitting Clinician Unavailable CATHERINE MOONEY Admitting Clinician Unavailable [email or web address] Admitting Clinician Unavailable Payers Payer Name Policy Type Policy Number Effective Date Expiration Date S melany GENERIC [id number] 2022 INSTIT,SNF,LTAC,R 00:00:00 [facility] [place] [id number] 2022 2022 00:00:00 00:00:00 [facility] [id number] Problems Condition Condition Condition Status Onset Resolution Last Treating Co mments Source Name Details Category Date Date Treatment Clinician Date Complicate Complicate Disease Active U nivers d UTI d UTI 08-15 ity of (urinary (urinary 00:00: [place] tract tract 00 Medical infection) infection) Br anch Cervical Cervical Disease Active Unive rs cancer cancer 08-12 ity of 00:00: [place] 00 Medical Branch Acute on Acute on Disease [facility] blood loss blood loss 00:00: Me dical anemia anemia 00 Center Cervical Cervical Disease Active 2021-03 [facility] mass mass 2[facility]19 [facility] 00[facility] Medical 00 Center Symptomati Symptomati Disease Active 2021-[address] c anemia c anemia 2-19 [facility] 00:[facility]: Medical 00 Center Vaginal Vaginal Disease Active 2021-[address] bleeding bleeding 2-19 [facility] 00:[facility]: Medical 00 Center HGSIL on HGSIL on Disease Active Overview: Un noble cytologic cytologic 09-19 Formattin i ty of smear of smear of 00:00: g of this Larry as cervix cervix 00 note Medical might be Branch different from the original. With +hpv Trichomona Trichomona Disease Active U nivers l l 09-19 ity of vulvovagin vul[place]ovagin [place] Medical Branch Supervisio Supervisio Disease Active U nivers n of n of 09-15 ity of high-risk high-risk 00:[place] 00 [facility] Branch Pap smear Pap smear Disease Active Overview: Univers of cervix of cervix 08-10 Formattin i ty of with with 00:00: g of this [place] ASCUS, ASCUS, 00 note Medical cannot cannot might be Branch exclude exclude different HGSIL HGSIL from the original. Refer to colpo Multiparit Multiparit Disease Active U nivers y y 5-25 ity of 00:00: Medical Branch Tobacco Tobacco Disease Active Univers smoking smoking 5-25 ity of affecting affecting 00:[place] [facility] AMANDA (iron AMANDA (iron Disease Recurre [facility] deficiency deficiency [facility] anemia) anemia) [facility] Cervical Cervical Disease Recurre [facility] carcinoma carcinoma [facility] Drug use Drug use Disease Recurre [facility] Incarcerat Incarcerat Disease Recurre [facility] ion ion [facility] Hypotensio Hypotensio Disease Active C HI [facility] n due to n due to [facility] blood loss [facility] Hemorrhagi Hemorrhagi Disease Active C [facility] c shock c shock [facility] Acute pain Acute pain Disease Active C HI [facility] Allergies, Adverse Reactions, Alerts Allergy Allergy Status Severity Reaction(s) Onset Inactive Treating Comm ents Source Name Type Date Date Clinician Penicill Propensi Active Hives 0 Univer s in ty to 6-05 ity of adverse 00:00: [place] reaction 00 [facility] IBUPROFE DRUG Active Hives 2022-0 Univers N INGREDI 6-05 ity of 00:00: [place] 00 [facility] Branch PENICILL DRUG Active Hives 2022-0 Univers IN INGREDI 6-05 ity of 00:00: [place] 00 [facility] Branch Ibuprofe Propensi Active Hives 2022-0 Univer s n ty to 6-05 ity of adverse 00:00: [place] reaction 00 [facility] Branch PENICILL Allergy Active 2022-0 [facility] INS 4- 00:00: 00 IBUPROFE Allergy Active 2022-0 [facility] N 4- 00:00: 00 Ibuprofe Propensi Active 2022-[address] [facility] ty to 4- [facility] adverse 00:00: Medical reaction 00 Center s Penicill Propensi Active [facility] ins ty to 4- [facility] adverse 00:00: Medical reaction 00 Center s ibuprofe DA Active [place] 2022- [facility]- [facility] 00 [facility] I[facility] NSAIDS Allergy Active 2021-03 St. (Non-[place] to [facility]ham roidal substanc 09:12: Regiona Anti-Inf e 09 l [facility] ibuprofe Allergy Active 2021-03 St. n to [facility] substanc 09:05: Regiona e 34 l Health Penicill Allergy Active 2021-03 St. ins to [facility] substanc 09:05: Regiona e 21 l Health NSAIDS DA Active U 2021-03 STLSJX (Non-Baljete roidal 00:00: Anti-Inf 00 lamma Penicill DA Active U 2021-03 STLSJX ins 00:00: 00 ibuprofe DA Active U 2021-03 STLSJX n 00:00: 00 IBPROFEN DA Active MO EDEMA 2018-0 [facility] 00[facility] Penicill DA Active U 2019-0 [facility] ins 04-14 [facility] 00:[facility]: [place] [facility] Penicill DA Active U RASH-UNKNOWN 2018-0 HC A ins 04-14 [facility] 00:00: [place] 00 [facility] Penicill DA Active U 2018-0 [facility] ins 03-27 [facility] 00:00: [place] 00 [facility] IBUPROFE DRUG Active Low Hives 2013-0 Univers N INGREDI 3-12 ity of 00:00: [place] 00 Medical Branch Ibuprofe Propensi Active Hives 2013-0 Pt Univer s n ty to 3-12 reports ity of adverse 00:00: itching [place] reaction 00 with some Medic al s to hives. Branch drug Penicill Propensi Active Hives 2013-0 Univer s in G ty to 3-10 ity of adverse 00:00: [place] reaction 00 Medical s Branch PENICILL DRUG Active Hives 2013-0 Univers IN G INGREDI 3-10 ity of 00:00: [place] 00 Medical Branch NO KNOWN Allergy Active [facility] Social History Social Habit Start Date Stop Date Quantity Comments Source Gender identity [facility]it y [facility] Branch Sexual orientation Univer sity of [facility] [place] History SDOH University o f Alcohol Std Drinks [place] [facility] History SDOR University o f Alcohol Binge [place] [facility] History SDOH University o f Social Connections [facility] Get Together Branch History SDOH University o f Social Connections [place] [facility] Mormonism Branch History [facility] o f Social Connections [place] [facility] Membership Branch History [facility] o f Social Connections [facility] Meetings Branch Alcohol intake 2022-11-13 2022-11-13 Ex-drinker University of 00:00:00 00:00:00 (finding) [facility] Branch Cigarettes smoked 2022-10-23 2022-10-23 Univers ity of current (pack per 00:00:00 00:00:00 [facility] day) - Reported Branch Cigarette 2022-10-23 2022-10-23 University of pack-years 00:00:00 00:00:00 [facility] [place] Tobacco use and 2022-10-23 2022-10-23 Smokeless tobacco Un iversity of exposure 00:00:00 00:00:00 non-user [facility] [place] History of Social 2022-10-23 2022-10-23 Univers ity of function 00:00:00 00:00:00 [facility] [place] Tobacco Comment 2022-10-23 2022-10-23 Patient is living Un iversity of 00:00:00 00:00:[address] [facility] [place] with friends. Branch Was [facility] from [facility] in April 2022. History [facility] 2022-08-13 2022-08-13 1 University o f Alcohol Frequency 00:00:00 00:00:00 [facility] edical Branch History [facility] 2022-08-13 2022-08-13 5 University o f Social Connections 00:00:00 00:00:00 [facility] Phone Branch History [facility] 2022-08-13 2022-08-13 7 University o f Social Connections 00:00:00 00:00:00 [place] [facility] Living Branch History [facility] 2022-08-13 2022-08-13 0 University o f Physical Activity 00:00:00 00:00:00 [place] M edical DPW Branch History [facility] 2022-08-13 2022-08-13 0 University o f Physical Activity 00:00:00 00:00:00 [facility] edical MPS Branch History [facility] 2022-08-13 2022-08-13 5 University o f Financial 00:00:00 00:00:00 [facility] [place] History SDOH Food 2022-08-13 2022-08-13 1 Univers ity of Worry 00:00:00 00:00:00 [place] [facility] Branch History SDOH Food 2022-08-13 2022-08-13 1 Univers ity of Scarcity 00:00:00 00:00:00 [place] [facility] History SDOH 2022-08-13 2022-08-13 2 University o f Transport Med 00:00:00 00:00:00 [place] Medic al Branch History SDOH 2022-08-13 2022-08-13 2 University o f Transport Non-Med 00:00:00 00:00:00 [place] M edical Branch History SDOH 2022-08-13 2022-08-13 2 University o f Housing Unable to 00:00:00 00:00:00 [place] M edical Pay Branch History SDOR 2022-08-13 2022-08-13 1 University o f Housing Places 00:00:00 00:00:00 [facility] gray Lived Branch History SDOR 2022-08-13 2022-08-13 2 University o f Housing Homeless 00:00:00 00:00:00 [place] Me dical Last Year Branch History of tobacco 2015-06-02 Passive smoker Un iversity of use 00:00:00 [facility] [place] Sex [birth year] Universit y of 00:00:00 00:00:00 [facility] [place] Smoking Status Start Date Stop Date Source Smokes tobacco daily 2022-10-23 00:00:00 [place] [facility] it of [facility] [place] Tobacco smoking [place] [facility] consumption unknown Health (finding) Ex-smoker 2022-02-25 00:00:00 2022-02-25 [facility] 00:00:00 Center Medications Ordered Filled Start Stop Current Ordering Indication Dosage Frequency Signature Comments Components Source Medication Medication Date Date Medication? Clinician (SIG) Name Name sulfamethox 2022- No [id number] 1{tbl} Take 1 Univers azole-trime 08-16 tablet by it y of thoprim 00:00: 04:59 mouth in [place] 800-160 mg 00 :00 the Medical per tablet morning Branch and 1 tablet in the evening. Do all this for 12 days. sulfamethox 2022- No [id number] 1{tbl} Take 1 Univers azole-trime 08-16 tablet by it y of thoprim 00:00: 04:59 mouth in [place] 800-160 mg 00 :00 the Medical per tablet morning Branch and 1 tablet in the evening. Do all this for 12 days. sulfamethox 2022- No [id number] 1{tbl} Take 1 Univers azole-trime 08-16 tablet by it y of thoprim 00:00: 04:59 mouth in [place] 800-160 mg 00 :00 the Medical per tablet morning Branch and 1 tablet in the evening. Do all this for 12 days. sulfamethox 2022- No [id number] 1{tbl} Take 1 Univers azole-trime 08-16 tablet by it y of thoprim 00:00: 04:59 mouth in [place] 800-160 mg 00 :00 the Medical per tablet morning Branch and 1 tablet in the evening. Do all this for 12 days. sulfamethox 2022-0 2022- No [id number] 1{tbl} Take 1 Univers azole-trime 08-16 tablet by it y of thoprim 00:00: 04:59 mouth in [place] 800-160 mg 00 :00 the Medical per tablet morning Branch and 1 tablet in the evening. Do all this for 12 days. sulfamethox 2022-0 2022- No [id number] 1{tbl} Take 1 Univers azole-trime 08-16 tablet by it y of thoprim 00:00: 04:59 mouth in [place] 800-160 mg 00 :00 the Medical per tablet morning Branch and 1 tablet in the evening. Do all this for 12 days. sulfamethox 2022- No [id number] 1{tbl} Take 1 Univers azole-trime 08-16 tablet by it y of thoprim 00:00: 00:00 mouth in [place] 800-160 mg 00 :00 the Medical per tablet morning Branch and 1 tablet in the evening. Do all this for 11 days. vancomycin 2022- No 15mg/kg 1,000 mg Univers (VANCOCIN) 08-1513 (rounded ity of 1,000 mg in 12:15: 12:14 [place] NaCl 0.9% 00 :00 mg = 15 Medical (NS) 250 mL mg/kg ?62 [facility] VIAL-MATE kg), IV IV Piggyback, piggyback Q12H ABX, 10 doses, First dose on Mary Beth 08/15/22 at 0715, Last dose on 08/19/22 at 1915, Administer over 60 Minutes, 250 mL
Reas on for Anti-Infec tive: Empiric Therapy for Suspected Infection< br>Empiric Therapy Site: Abdominal< br>Duratio n of therapy: 5 days sennosides- Yes 1{tbl} 1 tablet, Univers docusate 08 Oral, ity of sodium 06:15: DAILY, [place] [...] ed, Routine, Pain (scale 7-10) HYDROcodone 2022- No [id number] 1{tbl} Take 1 U nivers -acetaminop -10 13-16 tablet by it y of hen 5-325 00:00: 04:59 mouth [place] mg tablet 00 :00 every 6 Medical (six) Branch hours as needed for Pain (scale 7-10) for up to 7 days. Indication s: acute pain HYDROcodone 2022-2022- No [id number] 1{tbl} Take 1 U nivers -acetaminop 6-10 13-16 tablet by it y of hen 5-325 00:00: 04:59 mouth [place] mg tablet 00 :00 every 6 Medical (six) Branch hours as needed for Pain (scale 7-10) for up to 7 days. Indication s: acute pain HYDROcodone 2022- No [id number] 1{tbl} Take 1 U nivers -acetaminop [...] 0800, Until Discontinu ed, Routine ceFEPIme 2022- No 1000mg 1,000 mg, U nivers (MAXIPIME) 08-1311 IV ity of 1,000 mg in 09:00: 08:59 Piggyback, [place] NaCl 0.9% 00 :00 Q12H ABX, Medic al (NS) 100 mL 10 doses, [facility] MINI-BAG First dose on Fri08/13/22 at 0400, Last dose on Fri08/17/22 at 1600, Administer over 4 Hours, 100 mL
Reas on for Anti-Infec tive: Empiric Therapy for Suspected Infection< br>Empiric Therapy Site: Urine
D uration of therapy: 5 days vancomycin 2022- No 15mg/kg 1,000 mg Univers (VANCOCIN) 08-1307 (rounded ity of 1,000 mg in 00:00: 11:42 [place]30 [place] NaCl 0.9% 00 :39 mg = 15 Medical (NS) 250 mL mg/kg ?62 [facility] VIAL-MATE kg), IV IV Piggyback, piggyback Q12H [...] ity of 1,000 mg in 21:00: 02:12 Piggyback, [place] NaCl 0.9% 00 :00 ONCE, 1 Medical [...] [place] mg 27 :35 Starting Medical on Fri Branch 08/12/22 at 1548, Until Mary Beth 08/15/22 at 0059, Routine, Pain (scale 7-10) metroNIDAZO 2022- No 500mg 500 mg, IV Univers LE in [...] dose, On Fri08/12/22 at 1400, STAT ferrous 2022- Yes 325mg Take 325 [facility] sulfate 325 4-07 mg by [facility] (65 FE) MG 14:05: mouth Medica l tablet 14 daily with Center breakfast. ferrous Yes 325mg Take 325 [facility] sulfate 325 4-07 mg by [facility] (65 FE) MG 14:05: mouth Medica l tablet 14 daily with Center breakfast. folic acid 0 2023- No 1mg QD Take [address] (FOLVITE) 1 - 04-06 tablet (1 Marj kes MG tablet [...] QD Take [address] (FOLVITE) 1 - 04-06 tablet (1 Marj kes MG tablet 00:00: 23:59 mg total) Me dical 00 :00 by mouth Center in the morning. thiamine 2023- No 100mg QD Take 1 [facility] 100 MG - 04-06 tablet [facility] tablet 00:00: 23:59 (100 [...] as needed for up to 7 days. PNV without Yes [id number] 1{each} Take 1 Univers Ca-Iron 5-25 09 Each by ity of PsCmplx-FA 00:00: mouth [place] (SELECT-OB, 00 daily. Medica l FOLIC Branch ACID,) 29-1 mg Chew PNV without Yes [id number] 1{each} Take 1 Univers Ca-Iron 5-25 09 Each by ity of PsCmplx-FA 00:00: mouth [place] (SELECT-OB, 00 daily. Medica l FOLIC Branch ACID,) 29-1 mg Chew PNV without Yes [id number] 1{each} Take 1 Univers Ca-Iron 5-25 09 Each by ity of PsCmplx-FA 00:00: mouth [place] (SELECT-OB, 00 daily. Medica l FOLIC Branch ACID,) 29-1 mg Chew Immunizations Ordered Filled Immunization Date Status Comments Sour e Immunization Name Name [facility] 2015-08-16 Completed University of 00:00:00 [facility] [place] TDAP 2015-08-16 Completed University of 00:00:00 [facility] [place] TDAP 2015-08-16 Completed University of 00:00:00 [facility] [place] TDAP 2013-05-19 Completed University of 00:00:00 [facility] [place] MMR 2013-05-19 Completed University of 00:00:00 [facility] [place] TDAP 2013-05-19 Completed University of 00:00:00 [facility] [place] MMR 2013-05-19 Completed University of 00:00:00 [facility] [place] TDAP 2013-05-19 Completed University of 00:00:00 [facility] [place] MMR 2013-05-19 Completed University of 00:00:00 [facility] [place] Vital Signs Vital Name Observation Time Observation Value Comments Source WEIGHT 2022-11-10 15:00:00 51.3 kg WEIGHT 2022-11-10 15:00:00 51.3 kg Systolic blood 2022-08-15 20:56:00 104 mm[Hg] Univer sity of pressure [facility] [place] Diastolic blood 2022-08-15 20:56:00 58 mm[Hg] Unive rsity of pressure [facility] [place] Heart rate 2022-08-15 20:56:00 78 /min Universi ty [facility] Body temperature 2022-08-15 20:56:00 36.39 Emelyn Univ ersity of [facility] [place] Respiratory rate 2022-08-15 20:56:00 18 /[facility] in 2022-08-15 20:56:00 99 /min [facility] blood by [facility] Pulse oximetry Branch Body weight 2022-08-14 15:00:00 62 kg Universi ty [facility] BMI 2022-08-14 15:00:00 22.75 kg/m2 Universi ty [facility] Body height 2022-08-12 16:29:00 165.1 cm Universi ty [facility] WEIGHT 2022-07-27 04:25:00 60.328 kg WEIGHT 2022-07-25 [...] 2022-06-08 11:00:00 63.5 kg WEIGHT 2022-03-09 11:47:00 72.470177 kg HEIGHT 2022-03-09 11:47:00 165.1 cm Body Temperature 2022-03-09 09:36:00 97.7 [degF] [facility] Heart Rate 2022-03-09 09:36:00 59 /min [facility] Respiratory rate 2022-03-09 09:36:00 20 /min [facility] Oxygen saturation by 2022-03-09 09:36:00 97 /min [place] Pulse oximetry [facility] BP Systolic 2022-03-09 09:36:00 99 mm[Hg] [facility] BP Diastolic 2022-03-09 09:36:00 58 mm[Hg] [facility] HEIGHT 2022-02-26 17:00:00 165.1 cm WEIGHT 2022-02-26 17:00:00 72.576 kg HEIGHT 2022-02-26 17:00:00 165.1 cm WEIGHT 2022-02-26 17:00:00 72.576 kg Heart rate 2022-06-14 12:46:18 73 /min [facility] Respiratory rate 2022-06-14 12:46:18 18 /min [facility] Oxygen saturation in 2022-06-14 12:46:18 100 /min [facility] Arterial blood by Medical Ce nter Pulse oximetry Body temperature 2022-06-14 12:45:29 36.61 Emelyn [facility] Systolic blood 2022-06-14 12:45:15 100 mm[Hg] [facility] Diastolic blood 2022-06-14 12:45:15 64 mm[Hg] [facility] Body height 2022-06-08 11:00:00 165.1 cm [facility] Body weight 2022-06-08 11:00:00 63.5 kg [facility] BMI 2022-06-08 11:00:00 23.30 kg/m2 [facility] Heart rate 2022-02-27 11:58:02 65 /min [facility] Respiratory rate 2022-02-27 11:58:02 17 /min [facility] Oxygen saturation in 2022-02-27 11:58:02 96 /min [facility] Arterial blood by Medical Ce nter Pulse oximetry Body temperature 2022-02-27 11:57:00 36.89 Emelyn [facility] Systolic blood 2022-02-27 11:56:30 95 mm[Hg] [facility] Diastolic blood 2022-02-27 11:56:30 54 mm[Hg] [facility] S [facility] Body height 2022-02-26 18:01:00 165.1 cm [facility] Body weight 2022-02-26 18:01:00 72.6 kg [facility] BMI 2022-02-26 18:01:00 26.63 kg/m2 [facility] Procedures Procedure Date / Time Performing Clinician Source Performed [facility] FOR 2022-10-23 [facility] FREE [facility]AT[facility] FORM 14:31:18 Scissors Medical Bran ch VANCOMYCIN RANDOM LEVEL 2022-08-15 Vnekat Del Valle [facility] 10:23:00 [facility] VANCOMYCIN RANDOM LEVEL 2022-08-14 Venkat Del Valle [facility] 14:26:00 [facility] Branch MAGNESIUM 2022-08-14 [facility] 09:57[facility]00 [facility] BASIC METABOLIC PANEL (NA, 2022-08-14 Kevin Rosario [facility] K, CL, CO2, GLUCOSE, BUN, 09:57:00 [facility] CREATININE, [place]) VANCOMYCIN TROUGH 2022-08-14 Ayleen Fay [facility] 09:57:00 [facility] CBC WITH DIFF 2022-08-14 Abraham [facility] 09:57:00 Medical Branch US RETROPERITONEAL LIMITED 2022-08-13 Venkat Del Valle [facility] 21:14:00 [facility] LACTATE DEHYDROGENASE 2022-08-13 [facility] 15:56:00 [facility] RETICULOCYTES AUTOMATED 2022-08-13 Venkat Del Valle [facility] 08:53:00 [facility] Branch MAGNESIUM 2022-08-13 Rohan [facility] xas 08:53:00 Medical Branch FERRITIN SERUM 2022-08-13 Ivon [facility] xa 08:53:00 [facility] HAPTOGLOBIN, SERUM 2022-08-13 [facility] 08:53:00 [facility] BASIC METABOLIC PANEL (NA, 2022-08-13 [facility], CL, CO2, GLUCOSE, BUN, 08:53:00 Medica l [place] CREATININE, CA) IRON PANEL 2022-08-13 Ivon [facility] xa 08:53:00 [facility] CBC WITH DIFF 2022-08-13 [facility] 08:53:00 [facility] CREATININE, URINE RANDOM 2022-08-12 Ivon [facility] 21:18:00 [facility] UREA NITROGEN, URINE RANDOM 2022-08-12 Ivon [facility] 21:18:00 [facility] SODIUM, URINE RANDOM 2022-08-12 Shofderrick [facility] 21:18:00 [facility] TEST, URINE 2022-08-12 [facility] 21:18:00 [facility]INALYSIS 2022-08-12 [facility] 21:18:00 [facility] N-TERMINAL PRO-BNP 2022-08-12 [facility] 21:07:[address] [facility] CT ABDOMEN PELVIS WO 2022-08-12 [facility] CONTRAST 20:14:10 [facility] MRSA / MSSA SCREEN BY PCR, 2022-08-12 [facility] 17:31:00 [facility]OSPHORUS 2022-08-12 [facility] 17:27:00 [facility] MAGNESIUM 2022-08-12 Rohan, [facility] xas 17:27:00 [facility] THYROID STIMULATING HORMONE 2022-08-12 [facility] HEPATIC FUNCTION PANEL 2022-08-12 [id number] (ALB,T.PRO,BILI 17:27:00 [facility] T,BU/BC,ALT,AST,ALK PHOS) BASIC METABOLIC PANEL (NA, 2022-08-12 Rohan, [facility] K, CL, CO2, GLUCOSE, BUN, 17:27:00 Medica l Branch CREATININE, CA) CBC WITH DIFF 2022-08-12 [facility] 17:27:00 [facility] GLYCOSYLATED HEMOGLOBIN 2022-08-12 [facility] 17:27:00 [facility] PROTHROMBIN TIME / INR 2022-08-12 [facility] 17:27:00 [facility] ACTIVATED PARTIAL THRMPLAS 2022-08-12 [facility] CHERIE 17:27:00 [facility] XR CHEST 1 VW 2022-08-12 [facility] 17:10:00 [facility] BASIC METABOLIC PANEL 2022-06-[address] [facility] 03:21:00 [facility] CBC (HEMOGRAM ONLY) 2022-06-[address] [facility] 03:21:00 [facility] CBC (HEMOGRAM ONLY) 2022-06-[address] [facility] 17:15:00 [facility] CBC (HEMOGRAM ONLY) 2022-06-[address] [facility] 03:20:00 [facility] BASIC METABOLIC PANEL 2022-06-[address] [facility] 03:20:00 [facility] PROTHROMBIN TIME/INR 2022-06-[address] [facility] 09:42:00 [facility] CBC W/PLT COUNT & AUTO 2022-06-12 Kong [facility]onalnaida [facility] DIFFERENTIAL 09:42:00 [facility] CBC W/PLT COUNT & AUTO 2022-06-12 Faisal Mrinalini [facility] DIFFERENTIAL 09:42:00 [facility] BASIC METABOLIC PANEL 2022-06-12 Candacerifroilan, Jennifer [facility] 08:39:00 [facility] MAGNESIUM 2022-06-12 Naomyhorifroilan, Jennifer [facility] 08:39:00 [facility] PHOSPHORUS 2022-06-12 Naomyhorifroilan, Jennifer [facility] 08:39:00 [facility] HEPATIC FUNCTION PANEL 2022-06-12 horifroilan, Jennifer [facility] 08:39:00 [facility] PREPARE LEUKO-REDUCED 2022-06-[address] [facility] PLATELETS 23:54:00 [facility] CALCIUM, IONIZED 2022-06-[address] [facility] 12:08:00 [facility] CBC (HEMOGRAM ONLY) 2022-06-[address] [facility] 12:08:00 [facility] PROTHROMBIN TIME/INR 2022-06-[address] [facility] 12:08:00 [facility] BASIC METABOLIC PANEL 2022-06-[address] [facility] 12:08:00 [facility] POCT-GLUCOSE METER 2022-06-[address] [facility] 11:51:00 [facility] POCT-GLUCOSE METER 2022-06-[address] [facility] 06:30:00 [facility] CBC (HEMOGRAM ONLY) 2022-06-[address] [facility] 05:01:00 [facility] PROTHROMBIN TIME/INR 2022-06-[address] [facility] 05:01:00 [facility] CALCIUM, IONIZED 2022-06-[address] [facility] 04:32:00 [facility] HEPATIC FUNCTION PANEL 2022-06-[address] [facility] 03:02:00 [facility] PHOSPHORUS 2022-06-[address] [facility] 03:02:00 [facility] MAGNESIUM 2022-06-[address] [facility] 03:02:00 [facility] POCT-GLUCOSE METER 2022-06-[address] [facility] 00:34:00 [facility] PREPARE LEUKO-REDUCED RBC 2022-06-[address] [facility] 23:54:00 [facility] PREPARE LEUKO-REDUCED 2022-06-[address] [facility] 23:54:00 [facility] CALCIUM, IONIZED 2022-06-10 Alore, Becki Murry [facility] 22:12:00 [facility] PROTHROMBIN TIME/INR 2022-06-10 Alore, Becki Murry [facility] 22:12:00 [facility] CBC W/PLT COUNT & AUTO 2022-06-10 Denilson, Emir Kane [facility] DIFFERENTIAL 22:12:00 [facility] CBC W/PLT COUNT & AUTO 2022-06-10 Denilson, Emir Kane [facility] DIFFERENTIAL 22:12:00 [facility] CALCIUM, IONIZED 2022-06-10 Alore, Becki Murry [facility] 17:19:00 [facility] CBC (HEMOGRAM ONLY) 2022-06-10 Alore, Becki Murry [facility] 17:19:00 [facility] FIBRINOGEN 2022-06-10 Alore, Becki Murry [facility] 17:19:00 [facility] PROTHROMBIN TIME/INR 2022-06-10 Alore, Becki Murry [facility] 17:19:00 [facility] POCT-GLUCOSE METER 2022-06-[address] [facility] 17:18:00 [facility] TRANSFUSE LEUKO-REDUCED 2022-06-[address] [facility] 12:05:00 [facility] CALCIUM, IONIZED 2022-06-10 Alore, Beck[facility] Murry [facility] 12:03:00 [facility] CBC (HEMOGRAM ONLY) 2022-06-10 Alore, Becki Murry [facility] 12:03:00 [facility] FIBRINOGEN 2022-06-10 Alore, Becki Ann [facility] 12:03:00 [facility] PROTHROMBIN TIME/INR 2022-06-[address] [facility] 12:03:00 [facility] POCT-GLUCOSE METER 2022-06-[address] [facility] 11:11:00 [facility] VANCOMYCIN LEVEL, TROUGH 2022-06-[address] [facility] 09:06:00 [facility] CALCIUM, IONIZED 2022-06-10 Altriston, Becki Ann [facility] 05:57:00 [facility] CBC (HEMOGRAM ONLY) 2022-06-10 Alore, Becki Murry [facility] 05:57:00 [facility] FIBRINOGEN 2022-06-10 Alore, Becki Ann [facility] 05:57:00 [facility] PROTHROMBIN TIME/INR 2022-06-10 Alore, Becki Ann [facility] 05:57:00 [facility] POCT-GLUCOSE METER 2022-06-[address] [facility] 05:30:00 [facility] CALCIUM, IONIZED 2022-06-10 Altriston, Becki Murry [facility] 01:00:00 [facility] CBC (HEMOGRAM ONLY) 2022-06-10 Alore, Becki Murry [facility] 01:00:00 [facility] FIBRINOGEN 2022-06-10 Alore, Becki Ann [facility] 01:00:00 [facility] PROTHROMBIN TIME/INR 2022-06-10 Alore, Becki Ann [facility] 01:00:00 [facility] HEPATIC FUNCTION PANEL 2022-06-10 Manuel, Kouame [facility] 01:00:00 [facility] PHOSPHORUS 2022-06-10 Manuel, Kouame [facility] 01:00:00 [facility] BASIC METABOLIC PANEL 2022-06-10 Altriston, Becki Murry [facility] 01:00:00 [facility] MAGNESIUM 2022-06-10 Altriston, Becki Murry [facility] 01:00:00 [facility] PREPARE LEUKO-REDUCED RBC 2022-06-09 Noa Loyola [facility] 23:54:00 [facility] PREPARE PLASMA 2022-06-09 Manuel, Kouame [facility] 23:54:00 [facility] PREPARE CRYOPRECIPITATE 2022-06-[address] [facility] 23:54:00 [facility] PREPARE LEUKO-REDUCED 2022-06-[address] [facility] 23:54:00 [facility] POCT-GLUCOSE METER 2022-06-[address] [facility] 23:22:00 [facility] TRANSFUSE LEUKO-REDUCED 2022-06-[address] [facility] 22:55:00 [facility] POCT-GLUCOSE METER 2022-06-09 Doris, Amalia [facility] 17:17:00 [facility] CALCIUM, IONIZED 2022-06-09 Altriston, Becki Ann [facility] 17:14:00 [facility] CBC (HEMOGRAM ONLY) 2022-06-09 Alore, Becki Lovely [facility] 17:14:00 [facility] FIBRINOGEN 2022-06-09 Alore, Becki Lovely [facility] 17:14:00 [facility] PROTHROMBIN TIME/INR 2022-06-09 Alore, Becki Lovely [facility] 17:14:00 [facility] BLOOD CULTURE 2022-06-[address] [facility] 15:03:00 [facility] POCT-GLUCOSE METER 2022-06-[address] [facility] 12:15:00 [facility] CALCIUM, IONIZED 2022-06-09 Alore, Becki Lovely [facility] 12:05:00 [facility] CBC (HEMOGRAM ONLY) 2022-06-09 Alore, Becki Lovely [facility] 12:05:00 [facility] FIBRINOGEN 2022-06-09 Alore, Becki Lovely [facility] 12:05:00 [facility] PROTHROMBIN TIME/INR 2022-06-09 Alore, Becki Lovely [facility] 12:05:00 [facility] PROCALCITONIN 2022-06-09 Alore, Becki Lovely [facility] 12:05:00 [facility] BLOOD GAS, ARTERIAL 2022-06-09 Manuel, Kouame [facility] 08:18:00 [facility] PROTHROMBIN TIME/INR 2022-06-[address] [facility] 08:13:00 [facility] CBC (HEMOGRAM ONLY) 2022-06-09 Manuel, Kouame [facility] 08:13:00 [facility] BASIC METABOLIC PANEL 2022-06-09 Manuel, Kouame [facility] 08:13:00 [facility] FIBRINOGEN 2022-06-09 Manuel, Kouame [facility] 08:13:00 [facility] LACTIC ACID, ARTERIAL 2022-06-09 Manuel, Kouame [facility] 08:13:00 [facility] CALCIUM, IONIZED 2022-06-09 Manuel, Kouame [facility] 08:13:00 [facility] MAGNESIUM 2022-06-09 Manuel, Kouame [facility] 08:13:00 [facility] URINALYSIS W/ REFLEX URINE 2022-06-09 Ruperto, Patsy Lisa [facility] CULTURE 04:49:00 [facility] RAPID DRUG SCREEN, URINE 2022-06-09 Ruperto, [facility] [facility] 04:49:00 [facility] DRUG TEST, GENERAL 2022-06-[address] [facility] TOXICOLOGY, URINE 04:49:00 [facility] BLOOD GAS, ARTERIAL 2022-06-09 Manuel, Kouame [facility] 04:29:00 [facility] PROTHROMBIN TIME/INR 2022-06-[address] [facility] 04:28:00 [facility] CBC (HEMOGRAM ONLY) 2022-06-09 Manuel, Kouame [facility] 04:28:00 [facility] BASIC METABOLIC PANEL 2022-06-09 Manuel, Kouame [facility] 04:28:00 [facility] FIBRINOGEN 2022-06-09 Manuel, Kouame [facility] 04:28:00 [facility] LACTIC ACID, ARTERIAL 2022-06-09 Manuel, Kouame [facility] 04:28:00 [facility] HEPATIC FUNCTION PANEL 2022-06-09 Manuel, Chikis [facility] 04:28:00 [facility] CALCIUM, IONIZED 2022-06-09 Manuel, Kouame [facility] 04:28:00 [facility] PHOSPHORUS 2022-06-09 Manuel, Yordanme [facility] 04:28:00 [facility] MAGNESIUM 2022-06-09 Manuel, Chikis [facility] 04:28:00 [facility] VWF ACTIVITY 2022-06-[address] [facility] 04:28:00 [facility] XR CHEST 1 VIEW PORTABLE / 2022-06-09 Manuel [facility]is [facility] B[facility] 01:43:00 [facility] TRANSFUSE LEUKO-REDUCED 2022-06-09 Manuel, Chikis [facility] 01:38:00 [facility] THROMBOELASTOGRAPH (TEG) 2022-06-09 Manuel, Chikis [facility] 01:14:00 [facility] TRANSFUSE PLASMA 2022-06-09 Manuel, Chikis [facility] 00:46:00 [facility] TRANSFUSE LEUKO-REDUCED RED 2022-06-09 Manuel, Chikis [facility] BLOOD CELLS 00:34:00 [facility] CBC W/PLT COUNT & AUTO 2022-06-09 Manuel, Chikis [facility] DIFFERENTIAL 00:29:00 [facility] CBC W/PLT COUNT & AUTO 2022-06-09 Manuel, Chikis [facility] DIFFERENTIAL 00:29:00 [facility] (CELLAVISION MANUAL DIFF) 2022-06-09 Manuel, Chikis [facility] 00:29:00 [facility] BLOOD GAS, ARTERIAL 2022-06-09 Manuel, Yordanme [facility] 00:26:00 [facility] VITAMIN B12 2022-06-[address] [facility] 00:25:00 [facility] BASIC METABOLIC PANEL 2022-06-09 Manuel[facility] 00:25:00 [facility] FIBRINOGEN 2022-06-09 Manuel, Kouame [facility] 00:25:00 [facility] LACTIC ACID, ARTERIAL 2022-06-09 Manuel, Kouame [facility] 00:25:00 [facility] CALCIUM, IONIZED 2022-06-09 Manuel, Kouame [facility] 00:25:00 [facility] MAGNESIUM 2022-06-09 Manuel, Kouame [facility] 00:25:00 [facility] XR CHEST 1 VIEW PORTABLE / 2022-06-09 Manuel, Kouame [facility] 00:15:00 [facility] CBC (HEMOGRAM ONLY) 2022-06-08 Manuel, Kouame [facility] 22:09:00 [facility] BLOOD GAS, ARTERIAL 2022-06-08 Manuel, Kouame [facility] 22:06:00 [facility] TRANSFUSE PLASMA 2022-06-08 Mofor, Loyce Tiomela [facility] 21:51:00 [facility] PREPARE PLASMA 2022-06-08 Manuel, Kouame [facility] 21:29:00 [facility] BLOOD GAS, ARTERIAL 2022-06-08 Mofor, Loyce Tiomela [facility] 20:53:00 [facility] FIBRINOGEN 2022-06-[address] [facility] 20:50:00 [facility] PROTHROMBIN TIME/INR 2022-06-[address] [facility] 20:50:00 [facility] MAGNESIUM 2022-06-08 Manuel, Kouame [facility] 20:50:00 [facility] PHOSPHORUS 2022-06-08 Manuel, Kouame [facility] 20:50:00 [facility] CALCIUM, IONIZED 2022-06-08 Amnuel, Kouame [facility] 20:50:00 [facility] LACTIC ACID, ARTERIAL 2022-06-08 Manuel, Kouame [facility] 20:50:00 [facility] APTT 2022-06-08 Manuel, Kouame [facility] 20:50:00 [facility] THROMBOELASTOGRAPH (TEG) 2022-06-08 Manuel, Kouame [facility] 20:50:00 [facility] IR EMBOLIZATION ARTERIAL 2022-06-08 Mofor, Loyce [facility]ela [facility] 20:33:00 [facility] TRANSFUSE LEUKO-REDUCED RED 2022-06-08 Mofor, Loyce Tiomela [facility] BLOOD CELLS 20:31:00 [facility] TRANSFUSE LEUKO-REDUCED RED 2022-06-08 Mofor, Loyce Tiomela [facility] BLOOD CELLS 18:18:00 [facility] SCREEN, URINE 2022-06-08 Mofor, Loyce Tiomela [facility] 18:14:00 [facility] TRANSFUSE CRYOPRECIPITATE 2022-06-[address] [facility] 18:04:00 [facility] TRANSFUSE PLASMA 2022-06-08 Jack, Landene Tiomela [facility] 17:57:00 [facility] TRANSFUSE LEUKO-REDUCED 2022-06-[address] [facility] [facility] 17:41:00 [facility] THROMBOELASTOGRAPH (TEG) 2022-06-08 Jack, Landene [facility] 17:36:00 [facility] LACTIC ACID, ARTERIAL 2022-06-08 [place], Noa [facility] 17:35:00 [facility] PT/APTT 2022-06-08 Mofor, Loinocenciae Tiomela [facility] 17:35:00 [facility] FIBRINOGEN 2022-06-08 Mofor, Loyce Tiomela [facility] 17:35:00 [facility] D-DIMER 2022-06-08 Mofor, Loyce Tiomela [facility] 17:35:00 [facility] CALCIUM, IONIZED 2022-06-08 Mofor, Loyce Tiomela [facility] 17:35:00 [facility] CBC W/PLT COUNT & AUTO 2022-06-08 Mofor, Loyce Tiomela [facility] DIFFERENTIAL 17:35:00 [facility] BASIC METABOLIC PANEL 2022-06-08 Matthew Santiago [facility] 17:35:00 [facility] RETICULOCYTE COUNT 2022-06-[address] [facility] 17:35:00 [facility] LACTATE DEHYDROGENASE (LDH) 2022-06-[address] [facility] 17:35:00 [facility] CBC W/PLT COUNT & AUTO 2022-06-[address] [facility] DIFFERENTIAL 17:35:00 [facility] POCT-BLOOD GASES, ARTERIAL 2022-06-08 DorisAmalia aj [facility] 17:22:00 [facility] POCT-SODIUM 2022-06-08 Doris, Amalia [facility] 17:22:00 [facility] POCT-POTASSIUM 2022-06-08 Doris, Amalia [facility] 17:22:00 [facility] POCT-HEMOGLOBIN 2022-06-08 Doris, Amalia [facility] 17:22:00 [facility] POCT-HEMATOCRIT 2022-06-08 Doris, Amalia [facility] 17:22:00 [facility] POCT-GLUCOSE 2022-06-08 Doris, Amalia [facility] 17:22:00 [facility] HEPATITIS C PCR, 2022-06-08 Yonatanlani, Apaar [facility] QUANTITATIVE 16:26:00 [facility] HEPATITIS B PCR, 2022-06-08 Dadlani, Apaar [facility] QUANTITATIVE 16:26:00 [facility] CMV PCR, QUANTITATIVE 2022-06-08 Donavani, Apaar [facility] 16:26:00 [facility] EBV VIRAL LOAD 2022-06-08 Dadlani, Apaar [facility] 16:26:00 [facility] TRANSFUSE LEUKO-REDUCED RED 2022-06-[address] [facility] BLOOD CELLS 16:15:00 [facility] SALICYLATE LEVEL 2022-06-[address] [facility] 15:26:00 [facility] CORTISOL 2022-06-[address] [facility] 15:26:00 [facility] HEPATITIS B CORE ANTIBODY, 2022-06-08 Laura [facility]imenez [facility] TOTAL 15:26:00 [facility] HEPATITIS A ANTIBODY, IGG 2022-06-[address] [facility] 15:26:00 [facility] HEPATITIS B SURFACE ANTIBODY 2022-06-08 Pernell, Apagarry [facility] 15:26:00 [facility] CERULOPLASMIN 2022-06-[facility] 15:26:00 [facility] OLXLB-2-QTCAXESPNHY\\, SERUM 2022-06-[address] [facility] 15:26:00 [facility] ANTI-NUCLEAR ANTIBODY (HAYDEN) 2022-06-08 [facility] Laura [facility] 15:26:00 [facility] HEPATITIS A ANTIBODY, IGM 2022-06-08 Donavan, Apagarry [facility] 15:26:00 [facility] EBV ANTIBODY, IGM 2022-06-[address] [facility] [address] [facility] 15:26:00 [facility] FERRITIN 2022-06-08 Ramon Botello Carson [facility] 15:26:00 [facility] IRON, TIBC, % SAT. (WITHOUT 2022-06-08 Ramon Botello Carson [facility] FERRITIN) 15:26:00 [facility] ACTIN (SMOOTH MUSCLE) 2022-06-[address] [facility] ANTIBODY, IGG 15:26:00 [facility] HEPATITIS E ABS IGG/IGM EIA 2022-06-[address] [facility] 15:26:00 [facility] MITOCHONDRIAL AB SCREEN 2022-06-[address] [facility] [facility] 15:26:00 [facility] MITOCHONDRIAL AB TITER 2022-06-[address] [facility] 15:26:00 [facility] AMMONIA 2022-06-[address] [facility] 15:00:00 . [facility] CREATINE KINASE (CK) 2022-06-[address] [facility] 14:37:00 [facility] GLUCOSE 2022-06-[address] [facility] 14:37:00 [facility] SODIUM 2022-06-08 Matthew Santiago Tiomela [facility] 14:37:00 [facility] POTASSIUM 2022-06-08 Jack, Matthew Tiomela [facility] 14:37:00 [facility] BASIC METABOLIC PANEL 2022-06-[address] [facility] [facility] 14:37:00 [facility] US ABDOMEN COMPLETE 2022-06-08 Melaniea-Raya, Joey [facility] 13:36:00 D. [facility] US DOPPLER 2022-06-[address] [facility] 13:36:00 [facility] XR CHEST 1 VIEW PORTABLE / 2022-06-08 Nir, Noa [facility] BED[facility]IDE 12:26:00 [facility] CBC W/PLT COUNT & AUTO 2022-06-08 Deleantolina-Raya, Joey [facility] DIFFERENTIAL 12:23:00 D. [facility] COMPREHENSIVE METABOLIC 2022-06-08 José Miguel-Raya, Joey [facility] PANEL 12:23:00 D. [facility] APTT 2022-06-08 Deleantolina-Raya, Joey [facility] 12:23:00 [facility] PROTHROMBIN TIME/INR 2022-06-08 Deleantolina-Raya, Joey [facility] 12:23:00 D. [facility] MAGNESIUM 2022-06-08 Deleija-Raya, Joey [facility] 12:23:00 [facility] PHOSPHORUS 2022-06-08 Deleija-Raya, Joey [facility] 12:23:00 [facility]. [facility] IRON, TIBC, % SAT. (WITHOUT 2022-06-08 Deleija-Raya, Joey [facility] FERRITIN) 12:23:00 D. [facility] FERRITIN 2022-06-08 Deleija-Raya, Joey [facility] 12:23:00 [facility] VITAMIN B12 2022-06-08 Deleantolina-Raya, Joey [facility] 12:23:00 D. [facility] FIBRINOGEN 2022-06-08 [place], Noa [facility] 12:23:00 [facility] TSH/FREE T4 IF INDICATED 2022-06-[address] [facility] 12:23:00 [facility] HEPATITIS C ANTIBODY 2022-06-[address] [facility] 12:23:00 [facility] HEPATITIS B SURFACE ANTIGEN 2022-06-[address] [facility] 12:23:00 [facility] HC LAB HIV-1 AG W/HIV-1&2 AB 2022-06-[address] [facility] 12:23:00 [facility] T4, FREE 2022-06-[address] [facility] 12:23:00 [facility] TYPE AND SCREEN, AUTOMATED 2022-06-08 Margaritoantolina-Raya [facility] 12:23:00 [facility] CBC W/PLT COUNT & AUTO 2022-06-08 Melaniea-Raya, Joey [facility] DIFFERENTIAL 12:23:00 [facility] POCT-BLOOD GASES, ARTERIAL 2022-06-08 Amalia George [facility] 12:18:00 [facility] POCT-SODIUM 2022-06-[address] [facility] 12:18:00 [facility] POCT-POTASSIUM 2022-06-[address] [facility] 12:18:00 [facility] POCT-HEMOGLOBIN 2022-06-[address] [facility] 12:18:00 [facility] POCT-HEMATOCRIT 2022-06-[address] [facility] 12:18:00 [facility] POCT-GLUCOSE 2022-06-[address] [facility] 12:18:00 [facility] EKG-SCANNED 2022-06-08 Provider, Codi [facility] 00:00:00 [facility] US Pelvic Transvag W Doppler 2022-03-09 [facility] 03:52:[address] Abdomen Pelvis W Con 2022-03-09 [facility] 00:15:00 Health EKG 12 Lead in Emergency 2022-03-08 [facility] Room 23:09:00 Health XR Chest 1 View Portable 2022-03-08 [facility] 23:08:00 Health PREPARE RBC 2022-02-[address] [facility] 23:54:00 [facility] MAGNESIUM 2022-02-[address] [facility] 03:49:00 [facility] PHOSPHORUS 2022-02-[address] [facility] 03:49:00 [facility] IRON, TIBC, % SAT. (WITHOUT 2022-02-27 Henrietta Dooleyg In [facility] FERRITIN) 03:49:00 [facility] FERRITIN 2022-02-27 Miah Sung In [facility] 03:49:00 [facility] INCUBATED 1:1 MIXING STUDY 2022-02-27 Nathaniel Dooley [facility] 03:[facility] BASIC METABOLIC PANEL 2022-02-27 Henrietta Dooleyg In [facility] 03[facility] CBC (HEMOGRAM ONLY) 2022-02-27 Nathaniel Dooley In [facility] 03:49:00 [facility] TISSUE EXAM 2022-02-26 [place]irumbole, Yamile [facility] CBC (HEMOGRAM ONLY) 2022-02-26 Nathaniel Dooley In [facility] 08:[facility]00 [facility] PT/APTT 2022-02-26 Henrietta Dooleyg In [facility] 08[facility]33[facility]00 [facility] FACTOR 9 ACTIVITY 2022-02-26 Miah Sung In [facility] [facility] 08:33[facility]00 [facility] FACTOR 8 ACTIVITY 2022-02-26 Miah Sung In [facility] 08:33:00 [facility] HEMOGLOBIN AND HEMATOCRIT 2022-02-[address] [facility] 05[facility]29:00 [facility] RETICULOCYTE COUNT 2022-02-26 Nathaniel Dooley In [facility] St Marj kes 05:29:00 [facility] CALCIUM, IONIZED 2022-02-[address] [facility] 03[facility]56:00 [facility] TRANSFUSE LEUKO-REDUCED RED 2022-02-26 Catherine Mo[address] [facility] BLOOD CELLS 01:35:00 [facility] SARS-COV2/RT-PCR (SL[facility] & REF 2022-02-[address] [facility] 23:23:00 [facility] ABORH, MANUAL 2022-02-[address] [facility] 23:22:00 [facility] CBC W/PLT COUNT & AUTO 2022-02-[address] [facility] DIFFERENTIAL 22:03:00 [facility] COMPREHENSIVE METABOLIC 2022-02-[address] [facility] PANEL 22:03:00 [facility] PROTHROMBIN TIME/INR 2022-02-[address] [facility] 22:03:00 [facility] MAGNESIUM 2022-02-[address] [facility] 22:03:00 [facility] TYPE AND SCREEN, AUTOMATED 2022-02-[address] [facility] 22:03:00 [facility] CBC W/PLT COUNT & AUTO 2022-02-[address] [facility] DIFFERENTIAL 22:03:00 [facility] [id number] 2020-01-24 [facility] [place] 00:[facility]:00 [facility] [id number] 2020-01-24 [facility] [place] 00:00:00 [facility] [id number] 2020-01-24 [facility] [place] 00:00:00 [facility] Plan of Care Planned Activity Planned [...] [facility] Test 00:00:00 (#1) [code = [facility] INFLUENZA VACCINE (#1)] Future Scheduled 2021-11-[address] [facility] Test 00:00:00 (#1) [code = [facility] INFLUENZA VACCINE (#1)] Future Scheduled 2021-11-[address] [facility] Test 00:00:00 (#1) [code = [facility] INFLUENZA VACCINE (#1)] Future Scheduled 2021-11-[address] [facility] Test 00:00:00 (#1) [code = [facility] INFLUENZA VACCINE (#1)] Future Scheduled 2021-03-[address] [facility] Test 00:00:00 (12+) [code = [facility] DEPRESSION SCREENING (12+)] Future Scheduled 2004-09-[address] [facility] Test 00:00:00 malignant neoplasm of [facility]ica l Center cervix (procedure) [code = 947228501] Future Scheduled 2002-09-07 DTAP/TDAP/TD VACCINES CH I [...] Date/Time Type Type Clinicians Facility Department ID 2022-11-14 Inpatient ER FRANNIE SLEAltaf [facility] [id number] [facility] 17:59:02 [facility] 2022-11-14 Inpatient ER FRANNIE SLE [facility] [id number] [facility] 16:00:26 [place] 2022-11-12 Inpatient ER RACHEL SLE [facility] [id number] [facility] 14:33:07 [place] 2022-11-11 Inpatient ER RACHEL SLE [facility] [id number] [facility] 05:35:31 [place] 2022-11-10 Inpatient ER EDWIGE STEPHENS SLE [facility] [id number] [facility] 16:12:26 2022-08-12 Inpatient ER [facility] Obstetrics [id number] 06:20:02 a [facility] 2022-03-09 Hospital ER [facility] Gynecology [id number] 00:00:00 Encounter [facility] 2020-01-24 Inpatient Corrada, [facility]ACC SHANA [id number] [facility] 04:01:00 Armond [id number] [facility] 2022-11-25 2022-11-25 Patient SabaJEFF melo 1.2.840.114 [id number] Univers 00:00:00 00:00:00 Outreach Fiona GARCIA 350.1.13.10 i ty of WELLNESS 4.2.7.2.686 Larry as CENTER [id number] [facility] [address] 2022-11-21 2022-11-21 Patient JEFF Saba 1.2.840.114 [id number] Univers 00:00:00 00:00:00 Outreach Fiona GARCIA 350.1.13.10 i ty of WELLNESS 4.2.7.2.686 Larry as CENTER [phone] [facility] [address] 2022-11-20 2022-11-20 Patient SabaJEFF melo 1.2.840.114 [id number] Univers 00:00:00 00:00:00 Outreach Fiona GARCIA 350.1.13.10 i ty of WELLNESS 4.2.7.2.686 Larry as CENTER [phone] [place] [address] [address] 2022-11-10 2022-11-18 Inpatient ER [facility] Emergency [id number] SLE 12:59:00 14:03:00 OUMAR 2022-11-16 2022-11-16 Inpatient ER [facility] [id number] SLE 16:58:58 00:00:00 [place] 2022-11-15 2022-11-15 Outpatient [facility] [id number] SLE 00:00:00 00:00:00 [place] 2022-11-13 2022-11-13 Inpatient ER [facility] [id number] SLE 11:40:51 00:00:00 [place] 2022-11-12 2022-11-12 [id number] [facility] 07:45:06 00:00:00 [place] 2022-11-04 2022-11-04 Patient JEFF Saba 1.2.840.114 [id number] Univers 00:00:00 00:00:00 Outreach Fiona GARCIA 350.1.13.10 i ty of WELLNESS 4.2.7.2.686 Larry as CENTER [id number] [address] 2022-10-23 2022-10-23 Patient MELANY Escobar 1.2.840.114 [id number] Univers 00:00:00 00:00:00 Outreach Jojo TAN 350.1.13.10 [place] [phone] [facility] [address] [place] 2022-10-23 2022-10-23 Orders Doctor DALLIN 1.2.840.114 [id number] Univers 00:00:00 00:00:00 Only Unassigned, LINDA 350.1.13.10 ity of Scissors [facility] 4.2.7.2.686 Larry as [phone] [address] 2022-10-23 2022-10-23 Patient JEFF Saba 1.2.840.114 [id number] Univers 00:00:00 00:00:00 Outreach Fiona GARCIA 350.1.13.10 i ty of WELLNESS 4.2.7.2.686 Larry as CENTER [id number] [address] 2022-10-14 2022-10-14 Patient JEFF Saba 1.2.840.114 [id number] Univers 00:00:00 00:00:00 Outreach Fiona GARCIA 350.1.13.10 i ty of WELLNESS 4.2.7.2.686 Larry as CENTER [id number] [address] 2022-10-11 2022-10-11 Patient JEFF Saba 1.2.840.114 [id number] Univers 00:00:00 00:00:00 Outreach Fiona GARCIA 350.1.13.10 i ty of WELLNESS 4.2.7.2.686 Larry as CENTER [id number] [address] 2022-10-10 2022-10-10 Patient JEFF Saba 1.2.840.114 [id number] Univers 00:00:00 00:00:00 Outreach Fiona GARCIA 350.1.13.10 i ty of WELLNESS 4.2.7.2.686 Larry as CENTER [id number] [address] 2022-10-07 2022-10-07 Patient JEFF Saba 1.2.840.114 [id number] Univers 00:00:00 00:00:00 Outreach Fiona GARCIA 350.1.13.10 i ty of WELLNESS 4.2.7.2.686 Larry as CENTER [id number] [address] 2022-10-04 2022-10-04 Patient JEFF Saba 1.2.840.114 [id number] Univers 00:00:00 00:00:00 Outreach Fiona GARCIA 350.1.13.10 i ty of WELLNESS 4.2.7.2.686 Larry as CENTER [id number] [address] 2022-10-03 2022-10-03 Patient Louisa Bryant 1.2.840.114 10 [id number] Univers 00:00:00 00:00:00 Outreach Lizett TAN 350.1.13.10 [place] [id number] [address] 2022-09-19 2022-09-19 Patient JEFF Saba 1.2.840.114 [id number] Univers 00:00:00 00:00:00 Outreach Fiona GARCIA 350.1.13.10 i ty of WELLNESS 4.2.7.2.686 Larry as CENTER [id number] [address] 2022-09-18 2022-09-18 Patient JEFF Saba 1.2.840.114 [id number] Univers 00:00:00 00:00:00 Outreach Fiona GARCIA 350.1.13.10 i ty of WELLNESS 4.2.7.2.686 Larry as CENTER [id number] [address] 2022-09-12 2022-09-12 Patient Louisa Bryant 1.2.840.114 10 [id number] Univers 00:00:00 00:00:00 Outreach E TAN 350.1.13.10 [place] [id number] [address] 2022-09-05 2022-09-05 Patient Louisa BryantLul 1.2.840.114 10 [id number] Univers 13:00:00 14:00:00 Outreach E TAN 350.1.13.10 [place] [id number] [address] 2022-09-03 2022-09-03 Patient Louisa BryantLul 1.2.840.114 10 [id number] Univers 00:00:00 00:00:00 Outreach E TAN 350.1.13.10 [place] [id number] [address] 2022-08-27 2022-08-27 Patient Louisa BryantLul 1.2.840.114 10 [id number] Univers 00:00:00 00:00:00 Outreach E TAN 350.1.13.10 [place] [id number] [address] 2022-08-23 2022-08-23 Patient Louisa Bryant 1.2.840.114 10 [id number] Univers 00:00:00 00:00:00 Outreach E TAN 350.1.13.10 [place] [id number] [address] 2022-08-16 2022-08-16 Transition MELANY Ngo 1.2.840.114 [id number] Univers 00:00:00 00:00:00 of Care Angelica TAN 350.1.13.10 [place] [phone] [address] 2022-08-16 2022-08-16 Transition MELANY Ngo 1.2.840.114 [id number] Univers 00:00:00 00:00:00 of Care Angelica TAN 350.1.13.10 [place] [id number] [address] 2022-08-12 2022-08-15 Inpatient [id number] Univers 11:27:00 18:44:00 ELLI ity [facility] 2022-08-12 2022-08-15 [facility] Elli Encarnacion 1.2.8 40.114 [id number] Univers 11:27:00 18:44:00 Encounter Vern Bell 350.1.1 3.10 ity of [facility] 4.2.7.2.686 Larry as [phone] [address] 2022-07-21 2022-07-27 Inpatient ER ABHILASH [facility] Neuro ICU [id number] [facility] 10:45:00 13:59:00 BEN 2022-06-19 2022-06-[address] [facility] [id number] [facility] 00:00:00 00:00:00 Board [facility] 2022-06-08 2022-06-14 Inpatient ER JILLIAN GRAMAJO [employer] [id number] [facility] 10:46:00 14:05:00 [facility] 2022-06-08 2022-06-14 [facility] ER Amalia George [facility] [id number] 10:46:00 14:05:00 Encounter Hussein Winslow, [facility] 2022-06-14 2022-06-14 Outpatient EL SLEH SLEH [id number] [facility] 07:39:48 07:39:48 2022-06-13 2022-06-13 Outpatient EL SLEH SLEH [id number] [facility] 11:32:48 11:32:48 2022-06-12 2022-06-12 Outpatient EL SLEH SLEH [id number] [facility] 08:50:39 08:50:39 2022-03-18 2022-03-18 Emergency ER Senthil, [facility] [id number] 18:23:00 22:48:00 Boy -[id number] [facility] 2022-03-13 2022-03-13 Outside [facility] [id number] 00:00:00 00:00:00 Orders [facility] 2022-03-09 2022-03-12 [facility] [id number] STJX 08:49:00 14:02:00 Gabe -[id number] 2022-03-12 2022-03-12 Orders [facility] [id number] 00:00:00 00:00:00 Only [facility] 2022-03-08 2022-03-09 Emergency ER Wen, [facility] [id number] 22:41:00 09:05:00 [place] -[id number] Eron garcia Hesham Vitale 2022-03-09 2022-03-09 Admitted [id number]- [place] [id number] 08:49:00 08:49:00 Inpatient [id number] Regional 50 J oseph -[id number] [facility] Re giona [id number] POST l Health 2022-03-09 2022-03-09 Telephone Little, [facility] [id number] 00:00:00 00:00:[address] [facility] 2022-02-25 2022-02-27 Inpatient ER DANA VILLARREAL [facility] [employer] [id number] SLE 21:25:00 19:09:00 Oncology 2022-02-25 2022-02-27 Hospital ER Noris Cabrera [facility] [id number] [facility] 21:25:00 19:09:00 [facility] Dooley In Medical CarterDana tovar Centl[facility] r 2022-02-25 2022-02-25 Emergency ER Sharer, [facility] [id number] 10:23:00 19:24:00 [id number] [facility] 2022-02-15 2022-02-15 Outpatient GC_BV[facility] PRIV PRIV [id number] [facility] 00:00:00 00:00:00 _J [id number] Medica l 2021-10-11 2021-10-11 Emergency EM Laura [facility] ER [id number] [facility] 13:35:00 20:55:00 Dallin Sewell [facility] 2021-10-11 2021-10-11 Emergency EM Laura [facility] [id number] [facility] 13:35:00 20:55:00 Dallin [id number] [facility] Results Test Description Test Time Test Comments Results Result [facility] e Comments CT ABDOMEN/PELVIS 2022-11-08 WITHOUT IV 0 CONTRAST 07[facility] : 1985 Sex: F TECHNIQUE: CT of the abdomen and pelvis WITHOUT intravenous contrast andWITHOUT oral contrast. Dose modulation, iterative reconstruction, and/orweight-based adjustment of the mA/kV was utilized to reduce theradiation dose to as low as reasonably achievable.INDICATION: Abdominal pain, fever.COMPARISON: CT 07/22/2022.FINDINGS:ABSENCE OF INTRAVENOUS CONTRAST DECREASES SENSITIVITY FOR DETECTION OFFOCAL LESIONS AND VASCULAR PATHOLOGY.LOWER THORAX: Unremarkable.HEPATOBILIARY : No focal hepatic lesions. Gallbladder is unremarkable. Nobiliary ductal dilatation.SPLEEN: No splenomegaly.ADRENALS: No adrenal nodules.PANCREAS: No focal masses or ductal dilatation.LYMPH NODES: No lymphadenopathy.KIDNEYS/UR ETERS: There has been interval placement of bilateralnephrostomy tubes with resolution of previously noted hydronephrosis andhydroureter. No focal renal lesion. 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 Increasethickening of the wall of the adjacent bladder with possiblefistulization to the bladder. There is effacement of the fat plane withthe anterior wall of the rectum as well.VESSELS: Unremarkable.PERITONEUM/RE TROPERITONEUM: No free air or fluid.GI TRACT: No distention or wall thickening. Normal appendix. Residualcontrast is present throughout the colon and distal small bowel.BONES AND SOFT TISSUES: Unremarkable.IMPRESSION:1. Interval increase in cervical mass now inseparable from the bladder.It is difficult to discern whether gas and air-fluid level are withinthe residual bladder lumen or represent an area of central necrosis.There is now effacement of the fat plane with the anterior wall of therectum.2. Normal appendix.3. Interval placement of bilateral nephrostomy tubes. No hydronephrosisor hydroureter.Electronically Signed By: Daron Casarez11/17/2022 07:12 CDTWorkstation Name: [id number] BLOOD CULTURE 2022-11-16 18:00:31 Test Item Value Reference Range Interpretation Comme nts CULTURE (BEAKER) (test code = 1095) No growth in 5 days BLOOD [id number] 18:00:31 Test Item Value Reference Range Interpretation Comments CULTURE (BEAKER) (test No growth in 5 days code = 1095) IR PERCUTANEOUS NEPHROSTOMY - INT. DRAIN [id number] 12:00:26 [facility] : 1985 Sex: FPROCEDURE: Genitourinary catheter exchangeProcedural PersonnelAttending physician(s): Melyssa Frank physician(s): NoneResident physician(s): NoneAdv[facility] practice provider(s): NonePre-procedure diagnosis: Nephrostomy statusPost-procedure diagnosis: SameIndication: Routine scheduled exchangeAdditional clinical history: NoneComplications: No immediate complications.IMPRESSION:Successful exchange of bilateral 10 Citizen Of [place] nephrostomy catheters.Plan: Routine exchange in 2-3 months PROCEDURE SUMMARY- Target organ: Bilateral ch[place] kidneys- Antegrade nephrostogram(s) via the existing access- Nephrostomy tube exchange- Additional procedure(s): NonePROCEDURE DETAILS:Pre- procedureConsent: Informed consent for the procedure including risks, benefitsand alternatives was obtained and time-out was performed prior to theprocedure.Preparation: The site was prepared and draped using maximal sterilebarrier technique including cutaneous antisepsis.Anesthesia/sedationNo administered.Right genitourinary catheter exchangeLocal anesthesia was admi nistered. Initial nephrostogram was performed.A wire was placed through the existing tube and it wasremoved. The newtube was advanced over the wire and position was confirmed with contrastinjection.Pre-existing genitourinary catheter: 10 Citizen Of [place] Cook nephrostomy catheterGenitourinary catheter(s) placed: 10 [place] Cook nephrostomy catheter External catheter securement: Non-absorbable suture Left genitourinary catheter exchangeLocal anesthesia was administered. Initial nephrostogram was performed.A wire was placed through the existing tube and it was removed. The newtube was advanced over the wire and position was confirmed with contrastinjection.Pre-existing genitourinary catheter: 10 [place] Cook nephrostomy catheterGenitourinary catheter(s) placed: 10 [place] Cook nephrostomy catheter External catheter securement: Non-absorbable suture Additional genitourinary system interventionGenitourinary intervention: NoneLocation of intervention: Not applicableDevice used: Not applicableDescription of intervention: Not applicablePost-intervention findings: Not applicableAdditional DetailsAdditional description of procedure: NoneEquipment details: NoneSpecimens removed: NoneEstimated blood loss (mL): Lessthan 10Standardized report: [email or web address] name: Rome Brandon attest that I was present for the entire procedure. I reviewed thestored images and agree with the report as written.Electronically Signed By: Rome Castaneda11/14/2022 12:02 CDTWorkstation Name: [id number] METABOLIC PANEL 2022-11-13 05:03:07 Test Item Value Reference Range Interpretation Comments SODIUM (BEAKER) 134 meq/L 136-145 L (test code = 381) POTASSIUM 4.5 meq/L 3.5-5.1 (BEAKER) (test code = 379) CHLORIDE (BEAKER) 100 meq/L 98-107 (test code = 382) CO2 (BEAKER) 24 meq/L 22-29 (test code = 355) BLOOD UREA 16 mg/dL 7-21 NITROGEN (BEAKER) (test code = 354) CREATININE 2.47 mg/dL 0.57-1.25 H (BEAKER) (test code = 358) GLUCOSE RANDOM 118 mg/dL 70-105 H (BEAKER) (test code = 652) CALCIUM (BEAKER) 8.0 mg/dL 8.4-10.2 L (test code = 697) EGFR (BEAKER) 25 Interpretatio n of eGFR (test code = [...] not appl icable for dialysis patien ts [place] ID - [id number] 04:57:29 Test Item Value Reference Range Interpretation Comments MAGNESIUM (BEAKER) (test code = 1.8 mg/dL 1.6-2.6 627) [facility] ID - [id number] 04:57:29 Test Item Value Reference Range Interpretation Comments PHOSPHORUS (BEAKER) (test code = 4.2 mg/dL 2.3-4.7 604) [place] ID - EMCALCIUM, [id number] 04:24:11 Test Item Value Reference Range Interpretation Comments CALCIUM IONIZED (BEAKER) (test 1.08 mmol/L 1.12-1.27 L code = 698) PH, BLOOD (BEAKER) (test code = 7.46 1810) CBC W/PLT COUNT & AUTO [id number] 04:13:15 Test Item Value Reference Range Interpretation Comments WHITE BLOOD CELL COUNT (BEAKER) 7.1 K/ L 3.5-10.5 (test code = 775) RED BLOOD CELL COUNT (BEAKER) 2.88 M/ L 3.93-5.22 L (test code = 761) HEMOGLOBIN (BEAKER) (test code = 8.8 GM/DL 11.2-15.7 L 410) HEMATOCRIT (BEAKER) (test code = 27.6 % 34.1-44.9 L 411) MEAN CORPUSCULAR VOLUME (BEAKER) 96 fL 79-95 H (test code = 753) MEAN CORPUSCULAR HEMOGLOBIN 30.6 pg 25.6-32.2 (BEAKER) (test code = 751) MEAN CORPUSCULAR HEMOGLOBIN CONC 31.9 GM/DL 32.2-35.5 L (BEAKER) (test code = 752) RED CELL DISTRIBUTION WIDTH 14.5 % 11.7-14.4 H (BEAKER) (test code = 412) PLATELET COUNT (BEAKER) (test 285 K/CU MM 150-450 code = 756) MEAN PLATELET VOLUME (BEAKER) 8.6 fL 9.4-12.3 L (test code = 754) [...] (test code = 437) NEUTROPHILS ABSOLUTE COUNT 5.29 K/ L 1.56-6.13 (BEAKER) (test code = 670) LYMPHOCYTES ABSOLUTE COUNT 1.10 K/ L 1.18-3.74 L (BEAKER) (test code = 414) MONOCYTES ABSOLUTE COUNT (BEAKER) 0.34 K/ L 0.24-0.36 (test code = 415) EOSINOPHILS ABSOLUTE COUNT 0.34 K/ L 0.04-0.36 (BEAKER) (test code = 416) BASOPHILS ABSOLUTE COUNT (BEAKER) 0.01 K/ L 0.01-0.08 (test code = 417) IMMATURE GRANULOCYTES-RELATIVE 0.40 % 0.00-1.00 PERCENT (BEAKER) (test code = 2801) CREATININE, RANDOM [id number] 23:35:18 Test Item Value Reference Range Interpretation Comments CREATININE URINE (BEAKER) (test 25.6 mg/dL code = 375) Reference Range: No NormalsOperator ID - ADMINSODIUM, RANDOM [id number] 23:35:18 Test Item Value Reference Range Interpretation Comments SODIUM URINE (BEAKER) (test code = 122 meq/L 243) Reference Range: No NormalsOperator ID - ADMINPROTEIN, RANDOM [id number] 23:09:40 Test Item Value Reference Range Interpretation Comments PROTEIN, URINE (BEAKER) (test code = 32 mg/dL 0-14 H 1569) [place] ID - ADMINURINALYSIS [id number] 23:02:10 Test Item Value Reference Range Interpretation Comments RBC UA (BEAKER) (test code = 519) 5 /HPF WBC UA (BEAKER) (test code = 520) 6 /HPF [place] ID - techOSMOLALITY, [id number] 23:02:05 Test Item Value Reference Range Interpretation Comments OSMOLALITY URINE 322 mOsm/kg See_Comment [Automated message] (BEAKER) (test code = The sy stem which 614) generated this result transmitted ref erence range: 50-1,200 mOsm/kg. The reference range was not used to int erpret this result as normal/abnormal . URINALYSIS WITH MICROSCOPIC IF [id number] 23:01:49 Test Item Value Reference Range Interpretation Comments COLOR (BEAKER) (test code = 470) Colorless CLARITY (BEAKER) (test code = 469) Hazy SPECIFIC GRAVITY UA (BEAKER) (test 1.010 1.001-1.035 code = 468) PH UA (BEAKER) (test code = 467) 7.5 5.0-8.0 PROTEIN UA (BEAKER) (test code = 30 mg/dL Negative A 464) GLUCOSE UA (BEAKER) (test code = Negative Negative 365) KETONES UA (BEAKER) (test code = Negative Negative 371) BILIRUBIN UA (BEAKER) (test code = Negative Negative 462) BLOOD UA (BEAKER) (test code = 461) Negative Negative NITRITE UA (BEAKER) (test code = Negative Negative 465) LEUKOCYTE ESTERASE UA (BEAKER) Trace Negative A (test code = 466) UROBILINOGEN UA (BEAKER) (test code 0.2 0.2-1.0 = 463) SOURCE(BEAKER) (test code = 2795) [place] ID - [auto][facility] ID - techVANCOMYCIN LEVEL, [id number] 13:58:24 Test Item Value Reference Range Interpretation Comments VANCOMYCIN TROUGH (BEAKER) (test 13.6 ug/mL 10.0-20.0 code = 522) [place] ID - adminBASIC METABOLIC [id number] 13:39:11 Test Item Value Reference Range Interpretation Comments SODIUM (BEAKER) 136 meq/L 136-145 (test code = 381) POTASSIUM 4.3 meq/L 3.5-5.1 (BEAKER) (test code = 379) CHLORIDE (BEAKER) 101 meq/L 98-107 (test code = 382) CO2 (BEAKER) 26 meq/L 22-29 (test code = 355) BLOOD UREA 19 mg/dL 7-21 NITROGEN (BEAKER) (test code = 354) CREATININE 2.38 mg/dL 0.57-1.25 H (BEAKER) (test code = 358) GLUCOSE RANDOM 82 mg/dL 70-105 (BEAKER) (test code = 652) CALCIUM (BEAKER) 7.9 mg/dL 8.4-10.2 L (test code = 697) EGFR (BEAKER) 26 Interpretatio n of eGFR (test code = [...] not appl icable for dialysis patien ts [place] ID - adminCBC W/PLT COUNT & AUTO [id number] 11:37:54 Test Item Value Reference Range Interpretation Comments WHITE BLOOD CELL COUNT 5.8 K/ L 3.5-10.5 (BEAKER) (test code = 775) RED BLOOD CELL COUNT 2.72 M/ L 3.93-5.22 L (BEAKER) (test code = 761) HEMOGLOBIN (BEAKER) 8.2 GM/DL 11.2-15.7 L (test code = 410) HEMATOCRIT (BEAKER) 26.1 % 34.1-44.9 L (test code = 411) MEAN CORPUSCULAR 96 fL 79-95 H Discordant results VOLUME (BEAKER) (test compar ed to code = 753) previous, clini gray correlation req uired MEAN CORPUSCULAR 30.1 pg 25.6-32.2 HEMOGLOBIN (BEAKER) (test code = 751) MEAN CORPUSCULAR 31.4 GM/DL 32.2-35.5 L HEMOGLOBIN CONC (BEAKER) (test code = 752) RED CELL DISTRIBUTION 14.8 % 11.7-14.4 H WIDTH (BEAKER) (test code = 412) PLATELET COUNT 240 K/CU MM 150-450 (BEAKER) (test code = 756) MEAN PLATELET VOLUME 8.8 fL 9.4-12.3 L (BEAKER) (test code = 754) NUCLEATED RED BLOOD 0 /100 WBC 0-0 CELLS (BEAKER) (test code = 413) NEUTROPHILS RELATIVE 70 % PERCENT (BEAKER) (test code = 429) LYMPHOCYTES RELATIVE 20 % PERCENT (BEAKER) (test code = 430) MONOCYTES RELATIVE 6 % PERCENT (BEAKER) (test code = 431) EOSINOPHILS RELATIVE 4 % PERCENT (BEAKER) (test code = 432) BASOPHILS RELATIVE 0 % PERCENT (BEAKER) (test code = 437) NEUTROPHILS ABSOLUTE 4.07 K/ L 1.56-6.13 COUNT (BEAKER) (test code = 670) LYMPHOCYTES ABSOLUTE 1.17 K/ L 1.18-3.74 L COUNT (BEAKER) (test code = 414) MONOCYTES ABSOLUTE 0.34 K/ L 0.24-0.36 COUNT (BEAKER) (test code = 415) EOSINOPHILS ABSOLUTE 0.21 K/ L 0.04-0.36 COUNT (BEAKER) (test code = 416) BASOPHILS ABSOLUTE 0.01 K/ L 0.01-0.08 COUNT (BEAKER) (test code = 417) IMMATURE 0.30 % 0.00-1.00 GRANULOCYTES-RELATIVE PERCENT (BEAKER) (test code = 2801) CT LUMBAR SPINE WITHOUT IV [id number] 08:21:24 [facility] : 1985 Sex: FCT LUMBAR SPINE WITHOUT IV CONTRASTINDICATION: Low back pain, infection suspectedCOMPARISON: NoneTECHNIQUE: Contiguous noncontrast axial images of the lumbar spine are obtained.Computer reformatted coronal and sagittal images are also provided.Axial images are available in both bone and soft tissuealgorithm.DOSE REDUCTION: Dose modulation, iterative reconstruction, and/orweight-based adjustment of the mA/kV was utilized to reduce theradiation dose to as low as reasonably achievable.FINDINGS: 5 nonrib-bearing lumbar-type vertebral bodies are present. Alignment of the lumbar spine demonstrates loss of the normal lumbarlordosis Vertebral body height is maintained. Mild spondylosis and facet arthropathy are present within the spine. Small Schmorl's nodes are seen in the lower thoracic spine extending tothe L3 level.Noncontrast images of the spinal canal demonstrate no acute findings.No acute findings in the paraspinal soft tissues. A left-sided nephroureteral stent and right-sided nephrostomy tube arepresent.Evaluation of the individual levels demonstrates:L1/L2: No significant spinal canal stenosis or neural foraminalnarrowing.L2/L3: No significant spinal canal stenosis or neural foraminalnarrowing.L3/L4: No significant spinal canal stenosis or neural foraminalnarrowing.L4/L5: No significant spinal canal stenosis or neural foraminalnarrowing.L5/S1: Moderately degenerated disc.IMPRESSION:Mild degenerative changes in the lumbar spine without acute fracture ormalalignment. Electronically Signed By: Dillan Miguel11/12/2022 08:23 CDTWorkstation Name: [id number] METABOLIC [id number] 10:28:53 Test Item Value Reference Range Interpretation Comments TOTAL PROTEIN 5.1 gm/dL 6.0-8.3 L (BEAKER) (test code = 770) ALBUMIN (BEAKER) 2.3 g/dL 3.5-5.0 L (test code = 1145) ALKALINE 118 U/L 40-150 PHOSPHATASE (BEAKER) (test code = 346) BILIRUBIN TOTAL 0.3 mg/dL 0.2-1.2 (BEAKER) (test code = 377) SODIUM (BEAKER) 134 meq/L 136-145 L (test code = 381) POTASSIUM (BEAKER) 4.7 meq/L 3.5-5.1 (test code = 379) CHLORIDE (BEAKER) 99 meq/L 98-107 (test code = 382) CO2 (BEAKER) (test 28 meq/L 22-29 code = 355) BLOOD UREA 24 mg/dL 7-21 H NITROGEN (BEAKER) (test code = 354) CREATININE 2.78 mg/dL 0.57-1.25 H (BEAKER) (test code = 358) GLUCOSE RANDOM 89 mg/dL 70-105 (BEAKER) (test code = 652) CALCIUM (BEAKER) 7.6 mg/dL 8.4-10.2 L (test code = 697) AST (SGOT) 7 U/L 5-34 (BEAKER) (test code = 353) ALT (SGPT) 6 U/L 6-55 (BEAKER) (test code = 347) EGFR (BEAKER) 22 Interpretatio n of eGFR (test code = [...] not appl icable for dialysis patien ts H[facility]mith ID - [id number] 10:25:49 Test Item Value Reference Range Interpretation Comments MAGNESIUM (BEAKER) (test code = 1.7 mg/dL 1.6-2.6 627) Housesmith ID - [id number] 10:25:49 Test Item Value Reference Range Interpretation Comments PHOSPHORUS (BEAKER) (test code = 3.0 mg/dL 2.3-4.7 604) [facility]mith ID - MARCOVANCOMYCIN LEVEL, [id number] 10:22:46 Test Item Value Reference Range Interpretation Comments VANCOMYCIN RANDOM (BEAKER) (test 10.5 ug/mL code = 523) Reference Range: No NormalsOperator ID - MARCOPROTHROMBIN TIME/[id number] 10:10:44 Test Item Value Reference Range Interpretation Comments PROTIME (BEAKER) 15.5 seconds 11.9-14.2 H (test code = 759) INR (BEAKER) (test 1.31 See_Comment [Automat ed message] code = 370) The system [employer] generated this result transmitted ref erence range: <=5.90. The reference range was not used to int erpret this result as normal/abnormal . RECOMMENDED COUMADIN/WARFARIN INR THERAPY RANGESSTANDARD DOSE: 2.0 - 3.0 Includes: PROPHYLAXIS for venous thrombosis, systemic embolization; TREATMENT for venous thrombosis and/or pulmonary embolus.HIGH RISK: Target INR is 2.5-3.5 for patients with mechanical heart valves.CBC W/PLT COUNT & AUTO [id number] 10:05:04 Test Item Value Reference Range Interpretation Comments WHITE BLOOD CELL COUNT (BEAKER) 9.5 K/ L 3.5-10.5 (test code = 775) RED BLOOD CELL COUNT (BEAKER) 2.78 M/ L 3.93-5.22 L (test code = 761) HEMOGLOBIN (BEAKER) (test code = 8.5 GM/DL 11.2-15.7 L 410) HEMATOCRIT (BEAKER) (test code = 25.7 % 34.1-44.9 L 411) MEAN CORPUSCULAR VOLUME (BEAKER) 92 fL 79-95 (test code = 753) MEAN CORPUSCULAR HEMOGLOBIN 30.6 pg 25.6-32.2 (BEAKER) (test code = 751) MEAN CORPUSCULAR HEMOGLOBIN CONC 33.1 GM/DL 32.2-35.5 (BEAKER) (test code = 752) RED CELL DISTRIBUTION WIDTH 15.3 % 11.7-14.4 H (BEAKER) (test code = 412) PLATELET COUNT (BEAKER) (test 267 K/CU MM 150-450 code = 756) MEAN PLATELET VOLUME (BEAKER) 8.7 fL 9.4-12.3 L (test code = 754) [...] (test code = 437) NEUTROPHILS ABSOLUTE COUNT 7.46 K/ L 1.56-6.13 H (BEAKER) (test code = 670) LYMPHOCYTES ABSOLUTE COUNT 1.35 K/ L 1.18-3.74 (BEAKER) (test code = 414) MONOCYTES ABSOLUTE COUNT (BEAKER) 0.53 K/ L 0.24-0.36 H (test code = 415) EOSINOPHILS ABSOLUTE COUNT 0.11 K/ L 0.04-0.36 (BEAKER) (test code = 416) BASOPHILS ABSOLUTE COUNT (BEAKER) 0.01 K/ L 0.01-0.08 (test code = 417) IMMATURE GRANULOCYTES-RELATIVE 0.50 % 0.00-1.00 PERCENT (BEAKER) (test code = 2801) CALCIUM, [id number] 10:04:52 Test Item Value Reference Range Interpretation Comments CALCIUM IONIZED (BEAKER) (test 1.08 mmol/L 1.12-1.27 L code = 698) PH, BLOOD (BEAKER) (test code = 7.54 1810) US ABDOMEN [id number] 17:18:12 [facility] : 1985 Sex: FEXAM: Right upper quadrant abdominal ultrasoundINDICATION: ABDOMINAL PAINCOMPARISON: CT abdomen an d pelvis 07/22/2022 TECHNIQUE: Grayscale and color doppler images of the right upperquadrant of the abdomen were obtained.FINDINGS: Liver:Size: 12.9 cm in the right midclavicular line.Appearance: Normalechogenicity, smooth contourMass: No focal liver mass.Gallbladder: No cholelithiasis, gallbladder distension, pericholecysticfluid, wall thickening, or reported sonographic Corral's sign. Gallbladder wall measures 3 mm. Bile Ducts:Intrahepatic Ducts: No ductal dilatation.Extrahepatic Ducts: The commonbile duct measures 5 mm.Pancreas:Visualized portions of the pancreatic head, neck and proximal body a renormal.Kidney: The right kidney measures 10.9 cm. A percutaneous nephrostomycatheter is identifiedwith tip in the renal pelvis. There is mildhydronephrosis. No shadowing renal calculus is identified. Vessels:Aorta: Normal.Inferior Vena Cava: Normal.Main Portal Vein: 0.9 cm with normal hepatopetal flow..Free Fluid:No ascites or pleural effusionIMPRESSION:Mild right-sided hydronephrosis with indwelling percutaneous nephrostomycatheter, which appears to be well-positioned.No cholelithiasis or sonographic evidence of acute cholecystitis.Electronically Signed By: Balta Jeronimo11/10/2022 17:20 CDTWorkstation Name: [id number] METABOLIC [id number] 14:35:07 Test Item Value Reference Range Interpretation Comments TOTAL PROTEIN 5.9 gm/dL 6.0-8.3 L Specimen sligh tly (BEAKER) (test hemolyzed code = 770) ALBUMIN (BEAKER) 2.5 g/dL 3.5-5.0 L Specimen sl ightly (test code = 1145) hemolyzed ALKALINE 122 U/L 40-150 PHOSPHATASE (BEAKER) (test code = 346) BILIRUBIN TOTAL 0.4 mg/dL 0.2-1.2 Specimen sli ghtly (BEAKER) (test hemolyzed code = 377) SODIUM (BEAKER) 127 meq/L 136-145 L (test code = 381) POTASSIUM (BEAKER) 5.0 meq/L 3.5-5.1 Specimen slightly (test code = 379) hemolyzed CHLORIDE (BEAKER) 100 meq/L 98-107 (test code = 382) CO2 (BEAKER) (test 16 meq/L 22-29 L code = 355) BLOOD UREA 23 mg/dL 7-21 H NITROGEN (BEAKER) (test code = 354) CREATININE 3.05 mg/dL 0.57-1.25 H Specimen slight ly (BEAKER) (test hemolyzed code = 358) GLUCOSE RANDOM 88 mg/dL 70-105 (BEAKER) (test code = 652) CALCIUM (BEAKER) 7.4 mg/dL 8.4-10.2 L (test code = 697) AST (SGOT) 18 U/L 5-34 Specimen slight ly (BEAKER) (test hemolyzed code = 353) ALT (SGPT) 6 U/L 6-55 Specimen slight ly (BEAKER) (test hemolyzed code = 347) EGFR (BEAKER) 19 Interpretatio n of eGFR (test code = [...] not appl icable for dialysis patien ts [place] ID - ADMINHCG, QUANTITATIVE, [id number] 14:19:36 Test Item Value Reference Range Interpretation Comments GONADOTROPIN, CHORIONIC (HCG) QUANT 1 mIU/mL 0-10 (BEAKER) (test code = 649) Non- Females: <10 mIU/mL Females: Gestation Age Reference Range(mIU/mL) 0.2-1 Week 5-50 1-2 Weeks 50-500 2-3 Weeks 100-5,000 3-4 Weeks 500-10,000 4-5 Weeks 1,000-50,000 5-6 Weeks 10,000-100,000 6-8 Weeks 15,000- 200,000 2-3 Months 10,000-100,000 [place] ID - ADMINPROTHROMBIN TIME/INR 2022-11-10 13:54:39 Test Item Value Reference Range Interpretation Comments PROTIME (BEAKER) 15.2 seconds 11.9-14.2 H (test code = 759) INR (BEAKER) (test 1.28 See_Comment [Automat ed message] code = 370) The system [employer] generated this result transmitted ref erence range: <=5.90. The reference range was not used to int erpret this result as normal/abnormal . RECOMMENDED COUMADIN/WARFARIN INR THERAPY RANGESSTANDARD DOSE: 2.0 - 3.0 Includes: PROPHYLAXIS for venous thrombosis, systemic embolization; TREATMENT for venous thrombosis and/or pulmonary embolus.HIGH RISK: Target INR is 2.5-3.5 for patients with mechanical heart valves.CBC W/PLT COUNT & AUTO [id number] 13:49:30 Test Item Value Reference Range Interpretation Comments WHITE BLOOD CELL COUNT (BEAKER) 12.6 K/ L 3.5-10.5 H (test code = 775) RED BLOOD CELL COUNT (BEAKER) 3.17 M/ L 3.93-5.22 L (test code = 761) HEMOGLOBIN (BEAKER) (test code = 9.7 GM/DL 11.2-15.7 L 410) HEMATOCRIT (BEAKER) (test code = 29.8 % 34.1-44.9 L 411) MEAN CORPUSCULAR VOLUME (BEAKER) 94 fL 79-95 (test code = 753) MEAN CORPUSCULAR HEMOGLOBIN 30.6 pg 25.6-32.2 (BEAKER) (test code = 751) MEAN CORPUSCULAR HEMOGLOBIN CONC 32.6 GM/DL 32.2-35.5 (BEAKER) (test code = 752) RED CELL DISTRIBUTION WIDTH 15.1 % 11.7-14.4 H (BEAKER) (test code = 412) PLATELET COUNT (BEAKER) (test 334 K/CU MM 150-450 code = 756) MEAN PLATELET VOLUME (BEAKER) 8.8 fL 9.4-12.3 L (test code = 754) NUCLEATED RED BLOOD CELLS 0 /100 WBC 0-0 (BEAKER) (test code = 413) NEUTROPHILS RELATIVE PERCENT 86 % (BEAKER) (test code = 429) LYMPHOCYTES RELATIVE PERCENT 9 % (BEAKER) (test code = 430) MONOCYTES RELATIVE PERCENT 5 % (BEAKER) (test code = 431) EOSINOPHILS RELATIVE PERCENT 0 % (BEAKER) (test code = 432) BASOPHILS RELATIVE PERCENT 0 % (BEAKER) (test code = 437) NEUTROPHILS ABSOLUTE COUNT 10.86 K/ L 1.56-6.13 H (BEAKER) (test code = 670) LYMPHOCYTES ABSOLUTE COUNT 1.12 K/ L 1.18-3.74 L (BEAKER) (test code = 414) MONOCYTES ABSOLUTE COUNT (BEAKER) 0.58 K/ L 0.24-0.36 H (test code = 415) EOSINOPHILS ABSOLUTE COUNT 0.04 K/ L 0.04-0.36 (BEAKER) (test code = 416) BASOPHILS ABSOLUTE COUNT (BEAKER) 0.01 K/ L 0.01-0.08 (test code = 417) IMMATURE GRANULOCYTES-RELATIVE 0.20 % 0.00-1.00 PERCENT (BEAKER) (test code = 2801) Vancomycin Random [id number] 16:12:20 Test Item Value Reference Range Interpretation Comments VANCO RANDOM (test code = 25.5 ug/mL 5198458117) [facility] TexasLACTATE [id number] 17:06:44 Test Item Value Reference Range Interpretation Comments LDH (test code = 2203155055) 120 U/L 120-246 Lab Interpretation (test code = Normal 15850-5) [facility] TexasN-Terminal [id number] 21:40:51 Test Item Value Reference Range Interpretation Comments NT-proBNP (test code = 5010 pg/mL <=125 H 7955245330) NING (test code = NING) Biotin has been reported to cause a negative bias, interpret results relative to patient's use of biotin. Lab Interpretation (test Abnormal code = 87188-3) [facility] TexasGlycosylated Hemoglobin (A1C)2022-08-12 20:20:43 Test Item Value Reference Range Interpretation Comments HGB A1C (test code = 5.1 % 4.0-5.7 4548-4) NING (test code = NING) Reference RangesNormal: <5.7%Prediabetes: 5.7 - 6.4%Diabetes: > 6.5% Lab Interpretation (test Normal code = 37787-8) [facility] TexasThyroid Stimulating [id number] 20:03:36 Test Item Value Reference Range Interpretation Comments TSH (test code = 4.29 See_Comment [Automated message] [id number]) The system [employer] generated this result transmitted ref erence range: 0.45 - 4 .70 mIU/L. The refe rence range was not u sed to interpret this result as normal/abnor mal. Lab Interpretation (test Normal code = 36015-7) [facility] Metabolic Panel (NA, K, CL, CO2, Glucose, BUN, Creatinine, CA)2022-08-12 18:34:11 Test Item Value Reference Range Interpretation Comments NA (test code = 141 mmol/L 135-145 7632963076) K (test code = 3.9 mmol/L 3.5-5.0 3032335042) CL (test code = 114 mmol/L 98-108 H 1263854270) CO2 TOTAL (test code = 17 mmol/L 23-31 L 6306184053) AGAP (test code = 10 2-16 0324037302) BUN (test code = 16 mg/dL 7-23 6068644360) GLUCOSE (test code = 81 mg/dL 70-110 6839912911) CREATININE (test code = 1.61 mg/dL 0.50-1.04 H 0643877955) CALCIUM (test code = 7.6 mg/dL 8.6-10.6 L 1017621629) eGFR (test code = 35.8 mL/min/1.73m2 1452756028) NING (test code = NING) Association of [...] tests). Lab Interpretation Abnormal (test code = 42371-7) [facility] TexasMagnesium [id number] 18:34:11 Test Item Value Reference Range Interpretation Comments MAGNESIUM (test code = 6650794576) 1.4 mg/dL 1.7-2.4 L Lab Interpretation (test code = Abnormal 65514-3) [facility] TexasPhosphorus [id number] 18:34:11 Test Item Value Reference Range Interpretation Comments PHOSPHORUS (test code = 6205998868) 3.3 mg/dL 2.5-5.0 Lab Interpretation (test code = Normal 04968-6) [facility] TexasHepatic Function Panel (ALB, T.PRO, BILI T, BU/BC, ALT, AST, ALK, PHOS)2022-08-12 18:34:11 Test Item Value Reference Range Interpretation Comments TOTAL BILI (test code = 5145901732) 0.6 mg/dL 0.1-1.1 BILI UNCON (test code = 8744192525) 0.4 mg/dL 0.1-1.1 BILI CONJ (test code = 0039289024) 0.0 mg/dL 0.0-0.3 T PROTEIN (test code = 2803574417) 6.2 g/dL 6.3-8.2 L ALBUMIN (test code = 6089185398) 2.8 g/dL 3.5-5.0 L ALK PHOS (test code = 3350721967) 92 U/L 34-122 ALTv (test code = 1742-6) 19 U/L 5-35 AST(SGOT) (test code = 1214836485) 23 U/L 13-40 Lab Interpretation (test code = Abnormal 02921-0) [facility] TexasaPTT2023-06-05 17:53:33 Test Item Value Reference Range Interpretation Comments APTT Patient (test code = 26 See_Comment [ Automated message] 3173-2) The system whic h generated this result transmitted ref erence range: 26 - 36 Seconds. The re ference range was not u sed to interpret this result as normal/abnor mal. Lab Interpretation (test Normal code = 27553-9) [facility] TexasProthrombin Time / [id number] 17:53:33 Test Item Value Reference Range Interpretation Comments PROTIME PATIENT (test 12.8 See_Comment H [Auto mated message] code = 5964-2) The system ich generated this result transmitted ref erence range: 10.1 - 1 2.6 Seconds. The reference range was not used to int erpret this result as normal/abnormal . INR (test code = 6301-6) 1.1 Nor mal INR <1.1; Warfarin Therap eutic range 2.0 to 3. 0 or 2.5 to 3.5, dep ending upon the indica tions. Lab Interpretation (test Abnormal code = 44251-1) [facility] TexasCBC with Fcxqfjacxuce7233-98-04 17:47:13 Test Item Value Reference Range Interpretation Comments WBC (test code = 14.03 See_Comment H [Automated 3090-2) message] The system which generated this result transmit erna reference range : 4.30 - 11.10 10*3/?L. The reference range was not used to interpret this result as normal/abnormal . RBC (test code = 3.18 See_Comment L [Automated 289-8) message] The system which generated this result [...] (test code = 53.2 fL 39.0-49.9 H 00929-6) RDW-CV (test code = 16.3 % 12.0-15.5 H 788-0) PLT (test code = 214 See_Comment [Automated 777-3) message] The system which generated this result transmit erna reference range : 166 - 358 10*3/ ?L. The reference range was not u sed to interpret th is result as normal/abnormal . MPV (test code = 9.7 fL 9.5-12.9 67590-0) NRBC/100 WBC (test 0.0 See_Comment [Automat ed code = 4053061300) message] The system which generated this result transmit erna reference range : 0.0 - 10.0 /100 WBCs. The reference range was not used to interpret this result as normal/abnormal . NRBC x10^3 (test code See_Comment [Auto mated = 9205945946) message] The system which generated this result transmit erna reference range : 10*3/?L. The reference range was not used to interpret this result as normal/abnormal . GRAN MAT (NEUT) % 92.1 % (test code = 770-8) IMM GRAN % (test code 0.90 % = 2376432474) LYMPH % (test code = 3.9 % 736-9) MONO % (test code = 2.8 % 5905-5) EOS % (test code = 0.2 % 713-8) BASO % (test code = 0.1 % 706-2) GRAN MAT x10^3(ANC) 12.92 10*3/uL 1.88-7.09 H (test code = 4415119301) IMM GRAN x10^3 (test 0.12 10*3/uL 0.00-0.06 H code = 5743361935) LYMPH x10^3 (test code 0.55 10*3/uL 1.32-3.29 L = 731-0) MONO x10^3 (test code 0.39 10*3/uL 0.33-0.92 = 742-7) EOS x10^3 (test code = 0.03 10*3/uL 0.03-0.39 711-2) BASO x10^3 (test code 0.01-0.07 = 704-7) Lab Interpretation Abnormal (test code = 25940-0) [facility] TexasPOCT-GLUCOSE [id number] 07:57:35 Test Item Value Reference Range Interpretation Comments POC-GLUCOSE METER 96 mg/dL 70-110 : [facility] [place]ER[place] (test code [facility], = 1538) [address]: [facility]mith/Techni skip ID = [id number] for Little (contract), LaT onya [id number] 07:34:33 Test Item Value Reference Range Interpretation Comments PHOSPHORUS (BEAKER) (test code = 3.7 mg/dL 2.3-4.7 604) [facility] ID - MARCOBASIC METABOLIC [id number] 07:34:32 Test Item Value Reference Range Interpretation [...] not appl icable for dialysis patien ts [place] ID - [id number] 07:34:32 Test Item Value Reference Range Interpretation Comments MAGNESIUM (BEAKER) (test code = 1.8 mg/dL 1.6-2.6 627) [facility] ID - MARCOCBC W/PLT COUNT & AUTO [id number] 06:33:48 Test Item Value Reference Range Interpretation [...] (test code = 2801) MR, BRAIN, WITHOUT [id number] 20:08:00Epilepsy protocol Unlisted Reason for Exam - Click Yes and Enter Reason Below->No [facility] : 1985 Sex: FFINAL REPORT [...] Miguel MDReport Verified Date/Time: 07/26/2022 20:08:29 POCT-GLUCOSE [id number] 16:21:21 Test Item Value Reference Range Interpretation Comments POC-GLUCOSE METER 90 mg/dL 70-110 : TESTED A T [facility] 6720 (BEAKER) (test code [facility], = 1538) 24771: Housesmith/Techni skip ID = [id number] for Raiza (contract)Janet POCT-GLUCOSE [id number] 11:24:11 Test Item Value Reference Range Interpretation Comments POC-GLUCOSE METER 84 mg/dL 70-110 : TESTED A T [facility] 6720 (BEAKER) (test code = [facility], 1538) [address]: Housesmith/Techni skip ID = [id number] for Alva Gonzalez [id number] 06:24:20 Test Item Value Reference Range Interpretation Comments PHOSPHORUS (BEAKER) (test code = 3.1 mg/dL 2.3-4.7 604) [facility] ID - ADMINBASIC METABOLIC [id number] 06:24:19 Test Item Value Reference Range Interpretation [...] not appl icable for dialysis patien ts [place] ID - [id number] 06:24:19 Test Item Value Reference Range Interpretation Comments MAGNESIUM (BEAKER) (test code = 1.8 mg/dL 1.6-2.6 627) [place] ID - ADMINCBC W/PLT COUNT & AUTO [id number] 05:27:14 Test Item Value Reference Range Interpretation [...] PERCENT (BEAKER) (test code = 2801) POCT-GLUCOSE [id number] 18:35:43 Test Item Value Reference Range Interpretation Comments POC-GLUCOSE METER 114 mg/dL 70-110 H : TESTED A T [facility] 6720 (BEAKER) (test code = [facility], [facility]) [address]: Housesmith/Techni skip ID = [id number] for Miguelmarlena Joni elton POCT-GLUCOSE [id number] 16:30:37 Test Item Value Reference Range Interpretation Comments POC-GLUCOSE METER 104 mg/dL 70-110 : TESTED A T [facility] 6720 (BEAKER) (test code = [facility], [facility]8) [address]: Housesmith/Techni skip ID = [id number] for Ca tallero, Amanda POCT-GLUCOSE [id number] 13:06:15 Test Item Value Reference Range Interpretation Comments POC-GLUCOSE METER 96 mg/dL 70-110 : TESTED A T [facility] 6720 (BEAKER) (test code = [facility], [facility]) [address]: Housesmith/Techni skip ID = [id number] for Megan llero, Amanda POCT-GLUCOSE [id number] 07:46:57 Test Item Value Reference Range Interpretation Comments POC-GLUCOSE METER 84 mg/dL 70-110 : TESTED A T [facility] 6720 (BEAKER) (test code = [facility], [facility]8) [address]: Housesmith/Techni skip ID = [id number] for Megan llero, Amanda [id number] 05:56:08 Test Item Value Reference Range Interpretation Comments MAGNESIUM (BEAKER) (test code = 2.4 mg/dL 1.6-2.6 627) [facility]mith ID - [id number] 05:56:08 Test Item Value Reference Range Interpretation Comments PHOSPHORUS (BEAKER) (test code = 3.2 mg/dL 2.3-4.7 604) [facility] ID - ADMINCOMPREHENSIVE METABOLIC [id number] 05:56:07 Test Item Value Reference Range Interpretation [...] not appl icable for dialysis patien ts [facility] ID - ADMINCBC W/PLT COUNT & AUTO [id number] 05:18:06 Test Item Value Reference Range Interpretation [...] PERCENT (BEAKER) (test code = 2801) POCT-GLUCOSE [id number] 21:30:58 Test Item Value Reference Range Interpretation Comments POC-GLUCOSE METER 86 mg/dL 70-110 : TESTED A T [facility] 6720 (BEAKER) (test code = [facility], 1538) [address]: Housesmith/Techni skip ID = [id number] for Suad Pedraza POCT-GLUCOSE [id number] 16:20:27 Test Item Value Reference Range Interpretation Comments POC-GLUCOSE METER 91 mg/dL 70-110 : TESTED A T [facility] 6720 (BEAKER) (test code = [facility], 1538) [address]: Housesmith/Techni skip ID = [id number] for Megan odell, Amanda POCT-GLUCOSE [id number] 12:01:05 Test Item Value Reference Range Interpretation Comments POC-GLUCOSE METER 87 mg/dL 70-110 : TESTED A T [facility] 67[facility] (BEAKER) (test code = [facility], 1538) 24302: Housesmith/Techni skip ID = [id number] for Megan llero, Amanda POCT-GLUCOSE [id number] 08:41:45 Test Item Value Reference Range Interpretation Comments POC-GLUCOSE METER 90 mg/dL 70-110 : TESTED A T [facility] 67[facility] (BEAKER) (test code = [facility], 1538) 04335: Housesmith/Techni skip ID = [id number] for Megan llero, Amanda [id number] 07:22:20 Test Item Value Reference Range Interpretation Comments MAGNESIUM (BEAKER) (test code = 1.4 mg/dL 1.6-2.6 L 627) [id number] 07:22:20 Test Item Value Reference Range Interpretation Comments PHOSPHORUS (BEAKER) (test code = 3.5 mg/dL 2.3-4.7 604) BASIC METABOLIC [id number] 07:22:19 Test Item Value Reference Range Interpretation [...] patien ts CBC W/PLT COUNT & AUTO [id number] 06:58:59 Test Item Value Reference Range Interpretation [...] PERCENT (BEAKER) (test code = 2801) POCT-GLUCOSE [id number] 23:49:34 Test Item Value Reference Range Interpretation Comments POC-GLUCOSE METER 96 mg/dL 70-110 : TESTED A [facility] 67[facility] (BEAKER) (test code = [facility], 1538) 09181: Housesmith/Techni skip ID = [id number] for Tere Davis POCT-GLUCOSE [id number] 17:33:01 Test Item Value Reference Range Interpretation Comments POC-GLUCOSE METER 120 mg/dL 70-110 H : TESTED A T [facility] (BEAKER) (test code = [facility] [place], 1538) [address]: Housesmith/Techni skip ID = [id number] for Nichole Hair POCT-GLUCOSE [id number] 11:09:16 Test Item Value Reference Range Interpretation Comments POC-GLUCOSE METER 107 mg/dL 70-110 : TESTED A T [facility] 6720 (BEAKER) (test code = JANIE [facility], 1538) [address]: Housesmith/Techni skip ID = [id number] for Nichole Hair BASIC METABOLIC [id number] 07:14:49 Test Item Value Reference Range Interpretation [...] not appl icable for dialysis patien ts Housesmith ID - [id number] 07:11:55 Test Item Value Reference Range Interpretation Comments MAGNESIUM (BEAKER) (test code = 1.6 mg/dL 1.6-2.6 627) Housesmith ID - [id number] 07:11:55 Test Item Value Reference Range Interpretation Comments PHOSPHORUS (BEAKER) (test code = 3.8 mg/dL 2.3-4.7 604) Housesmith ID - BSCBC W/PLT COUNT & AUTO [id number] 06:07:30 Test Item Value Reference Range Interpretation [...] (BEAKER) (test code = 2801) BASIC METABOLIC [id number] 23:20:26 Test Item Value Reference Range Interpretation [...] not appl icable for dialysis patien ts Housesmith ID - BSPOCT-GLUCOSE [id number] 19:11:02 Test Item Value Reference Range Interpretation Comments POC-GLUCOSE METER 87 mg/dL 70-110 : TESTED A T [facility] 6720 (ALEXANDER) (test code = [place], 1538) [address]: Housesmith/Techni skip ID = [id number] for Nichole Moore, NEPHROSTOMY, PERC, EXTERNAL [id number] 17:55:00Reason for exam:- >b/l [facility]N placement [facility] 1985 Sex: FFINAL [...] three months. PROCEDURE SUMMARY- Target organ: Bilateral chipewwa kidneys- Image-guided placement of genitourinary catheter(s)- Additional [...] Contrast injection was performed.Genitourinary catheter placed: 10.2 Citizen Of [place] multipurpose drainage catheter Findings: Pigtail positioned inthe renal pelvisExternal catheter securement: Non-absorbable suture Left genitourinary catheter placementLocal anesthesia was administered. A needle was advanced into the renal collecting system under ultrasound and fluoroscopy guidance. A wire was advanced, the tract was serially dilated and a nephrostomy tube was placed. Contrast injection was performed.Genitourinary catheter placed: 10.2 Citizen Of [place] multipurpose drainage catheter Findings: Pigtail positioned in [...] MDReport Verified Date/Time: 07/22/2022 17:55:16 Reading Location: [facility] C013V Neuro Reading Room HCG, QUANTITATIVE, [id number] 16:00:13 Test Item Value Reference Range Interpretation Comments GONADOTROPIN, CHORIONIC (HCG) QUANT < mIU/mL 0-10 (BEAKER) (test code = 649) Non- Females: <10 mIU/mL Females: Gestation Age Reference Range(mIU/mL) 0.2-1 Week 5-50 1-2 Weeks 50-500 2-3 Weeks 100-5,000 3-4 Weeks 500-10,000 4-5 Weeks 1,000-50,000 5-6 Weeks 10,000-100,000 6-8 Weeks 15,000- 200,000 2-3 Months 10,000-100,000 Housesmith ID - BSBASI METABOLIC PANEL 2022-07-22 12:58:04 [...] not appl icable for dialysis patien ts Housesmith ID - ADMINPOCT-GLUCOSE [id number] 12:28:22 Test Item Value Reference Range Interpretation Comments POC-GLUCOSE METER 92 mg/dL 70-110 : TESTED A T [facility] 6720 (BEAKER) (test code = [facility], 1538) [address]: Housesmith/Techni skip ID = [id number] for Nichole Moore POCT-GLUCOSE [id number] 07:55:05 Test Item Value Reference Range Interpretation Comments POC-GLUCOSE METER 97 mg/dL 70-110 : TESTED A T [facility] 6720 (BEAKER) (test code = [facility], 1538) [address]: Housesmith/Techni skip ID = [id number] for Nichole Moore POCT-GLUCOSE [id number] 06:39:17 Test Item Value Reference Range Interpretation Comments POC-GLUCOSE METER 90 mg/dL 70-110 : TESTED A T [facility] 6720 (BEAKER) (test code = [facility], 1538) 460[address]: Housesmith/Techni skip ID = [id number] for KARON WATSON CT, [id number] 05:29:00Unlisted Reason for Exam - Click Yes and Enter Reason Below->YesUnlisted Reason for Exam->ESRD; Hx Cervical CarcinomaProtocol Please Specify:->Standard ProtocolWill this procedure require oralcontrast?->No [facility] COHEN : 1985 Sex: FFINAL REPORT EXAM/TECHNIQUE: CT [...] MDReport Verified Date/Time: 07/22/2022 05:29:38 C METABOLIC [id number] 04:02:59 Test Item Value Reference Range Interpretation [...] not appl icable for dialysis patien ts Housesmith ID Gonzalez TAYLOR [id number] 03:38:17 Test Item Value Reference Range Interpretation Comments PHOSPHORUS (BEAKER) (test code = 4.1 mg/dL 2.3-4.7 604) Housesmith ID - CLAUDIA [id number] 03:38:16 Test Item Value Reference Range Interpretation Comments MAGNESIUM (BEAKER) (test code = 1.7 mg/dL 1.6-2.6 627) Housesmith ID Gonzalez TAYLOR [id number] 03:33:49 Test Item Value Reference Range Interpretation Comments PARTIAL THROMBOPLASTIN TIME 33.4 seconds 22.5-36.0 (BEAKER) (test code = 760) PROTHROMBIN TIME/[id number] 03:33:07 Test Item Value Reference Range Interpretation [...] mechanical heart valves.CBC W/PLT COUNT & AUTO [id number] 03:23:16 Test Item Value Reference Range Interpretation [...] = 2801) RAD, CHEST, 1 VIEW, NON [id number] 23:55:00Reason for exam:->PULMONARY EDEMAShould this be performed at the bedside?->Yes [facility] : 1985 [...] to resolution is advised. Signed: Daron Casarez [facility] Verified Date/Time: 07/21/2022 23:55:02 POCT-GLUCOSE [id number] 22:09:32 Test Item Value Reference Range Interpretation Comments POC-GLUCOSE METER 90 mg/dL 70-110 : TESTED A T [facility] 6720 (BEAKER) (test code = [place], 1538) [address]: Housesmith/Techni skip ID = [id number] for KARON WATSON HEMOGLOBIN AND [id number] 22:02:53 Test Item Value Reference Range Interpretation Comments HEMOGLOBIN (BEAKER) (test code = 7.9 GM/DL 11.2-15.7 L 410) HEMATOCRIT (BEAKER) (test code = 22.4 % 34.1-44.9 L 411) Housesmith ID - [id number] METABOLIC [id number] 20:36:21 Test Item Value Reference Range Interpretation [...] not as accur ate as Creatinine [place] prua in predicting glom erular filtration rate . Estimated GFR is not appl icable for dialysis patien ts Housesmith ID - ADMINHEPATITIS B SURFACE [id number] 19:47:38 Test Item Value Reference Range Interpretation Comments HEPATITIS B SURFACE ANTIGEN (2) Nonreactive Nonreactive (BEAKER) (test code = 2585) Specimen is considered negative for HBsAg.HIGH SENSITIVITY TROPONIN [id number] 18:50:26 Test Item Value Reference Range Interpretation Comments HIGH SENSITIVITY TROPONIN I (test 181 pg/ml <=17 H code = 7639592) Housesmith ID - CHRISTIANO BThe BRUSH FILLER HAND STAT High Sensitivity Troponin-I results should be used in conjunction with other diagnostic information such as ECG, clinical observations and information, and patient symptoms to aid in the diagnosis of [place].BASIC METABOLIC [id number] 18:47:16 Test Item Value Reference Range Interpretation [...] (test code = 697) EGFR (BEAKER) 2 Interpretati on of eGFR (test code = [...] not appl icable for dialysis patien ts Housesmith ID - CHRISTIANO BU/S, RENAL, [id number] 18:43:00Reason for exam:- >Bilateral Renal HydronephrosisShould this be performed at the bedside?->Yes[facility] : 1985 Sex: FFINAL REPORT Ultrasound of the Kidneys Clinical History: Bilateral Renal Hydronephrosis COMPARISON: CT 06/08/2022 at 6:34 PM from [facility] per [employer] IV Discussion: Grayscale and color Doppler ultrasound [...] veins demonstrate patency. Bladder: Bladder is decompressed. 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 Signed: Daron Casarez [facility] Hospital[facility] Verified Date/Time: 07/21/2022 18:43:10 POCT-GLUCOSE [id number] 17:56:23 Test Item Value Reference Range Interpretation Comments POC-GLUCOSE METER 91 mg/dL 70-110 : TESTED A T [facility] 6720 (BEAKER) (test code = [place], 1538) [address]: Housesmith/Techni skip ID = [id number] for Louisa Castellon, CHEST, 1 VIEW, NON [id number] 15:01:00Reason for exam:->CVC \\T\\ HD catheterShould this be performed at the bedside?->Yes [facility] 1985 Sex: FFINAL REPORT Chest, one view History: Insertion of central venous catheter Comparison: 06/09/2022 Findings:Interval development of mild central airspace disease, likely pulmonary edema. Normal size heart. No pleural effusion or pneumothorax. Satisfactory positions of bilateral internal jugular central venous catheters. Signed: Arturo Dumont MDReport Verified Date/Time: 07/22/19 15:01:34 Reading Location: [address] Consult Reading Room BASIC METABOLIC [id number] 12:30:54 Test Item Value Reference Range Interpretation [...] not appl icable for dialysis patien ts Housesmith ID - CHRISTIANO BOperator ID - CHRISTIANO [id number] 12:22:57 Test Item Value Reference Range Interpretation Comments MAGNESIUM (BEAKER) (test code = 2.3 mg/dL 1.6-2.6 627) Housesmith ID - CHRISTIANO [id number] 12:22:57 Test Item Value Reference Range Interpretation Comments PHOSPHORUS (BEAKER) (test code = 6.9 mg/dL 2.3-4.7 H 604) Housesmith ID - CHRISTIANO BHEPATIC FUNCTION [id number] 12:22:57 Test Item Value Reference Range Interpretation [...] (test code = 8 U/L 6-55 347) Housesmith ID - CHRISTIANO BHIGH SENSITIVITY TROPONIN [id number] 12:21:15 Test Item Value Reference Range Interpretation Comments HIGH SENSITIVITY TROPONIN I (test 58 pg/ml <=17 H code = 5364154) Housesmith ID - CHRISTIANO BThe BRUSH FILLER HAND STAT High Sensitivity Troponin-I results should be used in conjunction with other diagnostic information such as ECG, clinical observations and information, and patient symptoms to aid in the diagnosis of [place].CBC W/PLT COUNT & AUTO [id number] 12:14:08 Test Item Value Reference Range Interpretation [...] 0.00-1.00 PERCENT (BEAKER) (test code = 2801) [id number] 12:06:02 Test Item Value Reference Range Interpretation Comments FIBRINOGEN LEVEL (BEAKER) (test 459 mg/dl 225-434 H code = 658) PROTHROMBIN TIME/[id number] 12:05:45 Test Item Value Reference Range Interpretation Comments PROTIME (BEAKER) (test code = 16.0 seconds 11.9-14.2 H 759) INR (BEAKER) (test code = 370) 1.32 <=5.90 RECOMMENDED COUMADIN/WARFARIN INR THERAPY RANGESSTANDARD DOSE: 2.0 - 3.0 Includes: PROPHYLAXIS for venous thrombosis, systemic embolization; TREATMENT for venous thrombosis and/or pulmonary embolus.HIGH RISK: Target INR is 2.5-3.5 for patients with mechanical heart valves.LACTIC ACID, [id number] 12:04:00 Test Item Value Reference Range Interpretation Comments LACTATE BLOOD VENOUS (2) (BEAKER) 0.53 mmol/L 0.50-2.00 (test code = 2872) Housesmith ID - ADMINPOCT-GLUCOSE [id number] 12:02:56 Test Item Value Reference Range Interpretation Comments POC-GLUCOSE METER 91 mg/dL 70-110 : TESTED A T [facility] 6720 (BEAKER) (test code = [place]IE [place], 1538) [address]: Housesmith/Techni skip ID = [id number] for Louisa Castellon POCT-GLUCOSE [id number] 11:16:07 Test Item Value Reference Range Interpretation Comments POC-GLUCOSE METER 50 mg/dL 70-110 L : TESTED Ladonna Zhang [facility] 6720 (BEAKER) (test code = JANIE [facility], 1538) [address]: Housesmith/Techni skip ID = [id number] for Louisa Castellon Drug Test, General Toxicology, [id number] 20:51:37 Test Item Value Reference Interpretation Comments Range Acetone(Quest) None Detected (test code = 3053) Methanol(Quest) None Detected (test code = 3054) Drug Test,Genrl see note The followin g compounds were Tox,U (test detected: Cotin ine (Nicotine code = 1590039) Metabolite) Acetaminophen Gabapentin MEGx (Lidocaine Metabolite) Caf feine Methamphetamine Lidocaine Benzoylecgonine (Cocaine Metabolite) Mela kyleigh Diphenhydramine Midazolam Cyclobenzaprine For a list of compounds and l imits of detection go to:http://educa tion.CoaLogix.EmSense/faq /ZYO517 ISOPROPANOL None Detected (test code = 5210417) ETHANOL (test None Detected Volatile Joseph it of Detection: code = 1588908) 5 mg/dL This test was developed and i ts analytical performancechar acteristics have been deter mined by [employer] s [place], [place]. It hasnot been dany ared or approved by the U.S. Food and DrugAdministrat ion. This assay has been validated pursuantto the CLIA regulations and is used for clinicalpurpose s. NING (test code Performing Lab = NING) [address] [facility] [address] [facility] [place] [address] Shawn Drake MD, PhD [facility] CenterBLOOD [id number] 16:00:20 Test Item Value Reference Range Interpretation Comments CULTURE (BEAKER) (test No growth in 5 days code = 1095) The specimen volume collected for this blood culture was below the optimum (10 mL per bottle or 20 mL total). Use of lower volumes may adversely affect recovery and/or detection times of some organisms.BLOOD [id number] 16:00:20 Test Item Value Reference Range Interpretation Comments CULTURE (BEAKER) (test No growth in 5 days code = 1095) BASIC METABOLIC [id number] 03:45:36 Test Item Value Reference Range Interpretation [...] not appl icable for dialysis patien ts Housesmith ID - BSCBC (HEMOGRAM ONLY)2022-06-14 03:30:35 Test [...] (BEAKER) (test code = 413) BASIC METABOLIC [id number] 04:27:45 Test Item Value Reference Range Interpretation [...] not appl icable for dialysis patien ts Housesmith ID - MMCBC (HEMOGRAM ONLY)2022-06-13 04:07:18 Test [...] 0-0 (BEAKER) (test code = 413) PROTHROMBIN TIME/[id number] 10:03:21 Test Item Value Reference Range Interpretation Comments PROTIME (BEAKER) (test code = 15.4 seconds 11.9-14.2 H 759) INR (BEAKER) (test code = 370) 1.30 <=5.90 RECOMMENDED COUMADIN/WARFARIN INR THERAPY RANGESSTANDARD DOSE: 2.0 - 3.0 Includes: PROPHYLAXIS for venous thrombosis, systemic embolization; TREATMENT for venous thrombosis and/or pulmonary embolus.HIGH RISK: Target INR is 2.5-3.5 for patients with mechanical heart valves.ANG, EMBOLIZATION, EXTENSIVE - [id number] 09:57:00Reason for exam:->Embolization of bleeding cervical massWESTSIDE [facility]OS[facility]ITAL– [facility] ANG[facility]ESName: [facility] PHILIP : 1985 Sex: FFINAL REPORT [...] MDReport Verified Date/Time: 06/12/2022 09:57:59 Reading Location: [facility] Diagnostic Imaging Reading Room - [place] [address] CBC W/PLT COUNT & AUTO [id number] 09:56:52 Test Item Value Reference Range Interpretation [...] GRANULOCYTES-RELATIVE PERCENT (BEAKER) (test code = 2801) [id number] 09:25:56 Test Item Value Reference Range Interpretation Comments PHOSPHORUS (BEAKER) (test code = 3.4 mg/dL 2.3-4.7 604) Housesmith ID - CLAUDIA WHEPATIC FUNCTION [id number] 09:25:56 Test Item Value Reference Range Interpretation [...] code = 117 U/L 6-55 H 347) Housesmith KATIE TAYLOR WBASIC METABOLIC [id number] 09:25:55 Test Item Value Reference Range Interpretation [...] rted eGFR is based on the CKD-EPI 1 equation t hat does not use a race coefficientEsti mated GFR is not as accur ate as Creatinine [place]our[place] neves in predicting glom erular filtration rate . Estimated GFR is not appl icable for dialysis patien ts Housesmith KATIE TAYLOR [id number] 09:25:55 Test Item Value Reference Range Interpretation Comments MAGNESIUM (BEAKER) (test code = 2.0 mg/dL 1.6-2.6 627) Housesmith ID - CLAUDIA Alicea Leuko-Red [id number] 23:54:00 Test Item Value Reference Range Interpretation Comments Unit ABO (test code = 0284793) A Neg UNIT NUMBER (test code = [id number] 934-0) Status (test code = 6702610) [place]_TIMEINCHART Blood Bank Product (test code PLATELETS = 2263) PRODUCT CODE (test code = Z9357U32 933-2) [facility] CenterPrepare Leuko-Red [id number] 23:54:00 Test Item Value Reference Range Interpretation Comments Unit ABO (test code = 7482292) A Neg UNIT NUMBER (test code = [id number] 934-0) Status (test code = 0664453) [place]_TIMEINCHART Blood Bank Product (test code PLATELETS = 2263) PRODUCT CODE (test code = Y5371K56 933-2) [facility] CenterBASIC METABOLIC [id number] 13:05:32 Test Item Value Reference Range Interpretation [...] not appl icable for dialysis patien ts Housesmith ID - MARCOCBC (HEMOGRAM ONLY)2022-06-11 12:42:48 Test [...] WBC 0-0 (test code = 413) PROTHROMBIN TIME/[id number] 12:39:37 Test Item Value Reference Range Interpretation Comments PROTIME (BEAKER) (test code = 15.6 seconds 11.9-14.2 H 759) INR (BEAKER) (test code = 370) 1.32 <=5.90 RECOMMENDED COUMADIN/WARFARIN INR THERAPY RANGESSTANDARD DOSE: 2.0 - 3.0 Includes: PROPHYLAXIS for venous thrombosis, systemic embolization; TREATMENT for venous thrombosis and/or pulmonary embolus.HIGH RISK: Target INR is 2.5-3.5 for patients with mechanical heart valves.CALCIUM, [id number] 12:30:04 Test Item Value Reference Range Interpretation Comments CALCIUM IONIZED (AKER) (test 1.08 mmol/L 1.12-1.27 L code = 698) PH, BLOOD ([facility]) (test code = 7.44 1810) POC-Glucose [id number] 12:05:07 Test Item Value Reference Range Interpretation Comments POC-Glucose Meter (test 85 mg/dL 70-110 : TE STED AT [facility] code = 1538) 6720 [facility], 7[address] 30: Housesmith/Techni skip ID = [id number] for LLUVIA GROVES Lab Interpretation (test Normal code = 13704-6) [facility] CenterPOC-Glucose [id number] 12:05:07 Test Item Value Reference Range Interpretation Comments POC-Glucose Meter (test 85 mg/dL 70-110 : TE STED AT [facility] code = 1538) [address] [place] [address], 770 30: Housesmith/Techni skip ID = [id number] for LLUVIA GROVES Lab Interpretation (test Normal code = 09589-1) [facility] CenterPOWA-GLUCOSE [id number] 12:05:07 Test Item Value Reference Range Interpretation Comments POC-GLUCOSE METER 85 mg/dL 70-110 : [facility] ([facility]ER[facility] (test code = [facility], 1538) [address]: Housesmith/Techni skip ID = [id number] for LLUVIA DANIEL EBV VIRAL [id number] 11:49:33 Test Item Value Reference Range Interpretation [...] th is result as normal/abnormal . POCT-GLUCOSE [id number] 06:43:06 Test Item Value Reference Range Interpretation Comments POC-GLUCOSE METER 82 mg/dL 70-110 : TESTED A T [facility] 6720 (BEAKER) (test code = [place], 1538) [address]: Housesmith/Techni skip ID = [id number] for Griselda Mayorga CALCIUM, [id number] 05:38:13 Test Item Value Reference Range Interpretation [...] CELLS (BEAKER) (test code = 413) PROTHROMBIN TIME/[id number] 05:28:51 Test Item Value Reference Range Interpretation Comments PROTIME (BEAKER) (test code = 16.1 seconds 11.9-14.2 H 759) INR (BEAKER) (test code = 370) 1.38 <=5.90 RECOMMENDED COUMADIN/WARFARIN INR THERAPY RANGESSTANDARD DOSE: 2.0 - 3.0 Includes: PROPHYLAXIS for venous thrombosis, systemic embolization; TREATMENT for venous thrombosis and/or pulmonary embolus.HIGH RISK: Target INR is 2.5-3.5 for patients with mechanical heart valves.[id number] 03:39:10 Test Item Value Reference Range Interpretation Comments PHOSPHORUS (BEAKER) (test code = 2.8 mg/dL 2.3-4.7 604) Housesmith ID - BSHEPATIC FUNCTION [id number] 03:39:09 Test Item Value Reference Range Interpretation [...] code = 116 U/L 6-55 H 347) Housesmith ID - [id number] 03:39:09 Test Item Value Reference Range Interpretation Comments MAGNESIUM (BEAKER) (test code = 1.6 mg/dL 1.6-2.6 627) Housesmith ID - BSPOCT-GLUCOSE [id number] 00:47:31 Test Item Value Reference Range Interpretation Comments POC-GLUCOSE METER 94 mg/dL 70-110 : TESTED A T [facility] 6720 (BEAKER) (test code = [place], 1538) [address]: Housesmith/Techni skip ID = [id number] for Amita kimberlyPee Prepare Leuko-Red [id number] 23:54:00 Test Item Value Reference Range Interpretation Comments CROSSMATCH (test code = 2264) COMPATIBLE Unit ABO (test code = A Pos 3536513) UNIT NUMBER (test code = [id number] 934-0) Status (test code = 6746815) [place]_TIMEINCHART Blood Bank Product (test code RED BLOOD CELLS = 2263) PRODUCT CODE (test code = N2702V77 933-2) [facility] CenterPrep[facility] Leuko-Red [id number] 23:54:00 Test Item Value Reference Range Interpretation Comments CROSSMATCH (test code = 2264) COMPATIBLE Unit ABO (test code = A Pos 9451336) UNIT NUMBER (test code = [id number] 934-0) Status (test code = 6525346) [facility] Blood Bank Product (test code RED BLOOD CELLS = 2263) PRODUCT CODE (test code = J1922Y54 933-2) [facility] CenterPROTHROMBIN TIME/[id number] 22:37:14 Test Item Value Reference Range Interpretation [...] mechanical heart valves.CBC W/PLT COUNT & AUTO [id number] 22:25:34 Test Item Value Reference Range Interpretation [...] PERCENT (BEAKER) (test code = 2801) CALCIUM, [id number] 22:25:05 Test Item Value Reference Range Interpretation Comments CALCIUM IONIZED (BEAKER) (test 1.07 mmol/L 1.12-1.27 L code = 698) PH, BLOOD (BEAKER) (test code = 7.48 1810) [id number] 17:57:12 Test Item Value Reference Range Interpretation Comments FIBRINOGEN LEVEL (BEAKER) (test 313 mg/dl 225-434 code = 658) PROTHROMBIN TIME/[id number] 17:44:31 Test Item Value Reference Range Interpretation [...] WBC 0-0 (test code = 413) POCT-GLUCOSE [id number] 17:30:09 Test Item Value Reference Range Interpretation Comments POC-GLUCOSE METER 109 mg/dL 70-110 : TESTED A T [facility] 6720 (BEAKER) (test code = [place]ANIE [place], 1538) [address]: Housesmith/Techni skip ID = [id number] for Naina Austin CALCIUM, [id number] 17:28:59 Test Item Value Reference Range Interpretation Comments CALCIUM IONIZED (BEAKER) (test 1.07 mmol/L 1.12-1.27 L code = 698) PH, BLOOD (BEAKER) (test code = 7.48 1810) ANTI-NUCLEAR ANTIBODY (HAYDEN)2022-06-10 14:58:10 Test Item Value Reference Range Interpretation Comments ANTI-NUCLEAR ANTIBODY (HAYDEN) (BEAKER) Negative Negative (test code = 418) Test performed by IFA method.Test performed by IFA method.HEPATITIS C PCR, [id number] 14:01:32 Test Item Value Reference Range Interpretation Comments HCV RESULT COMPONENT HCV RNA not detected HCV RNA not detected (BEAKER) (test code = 2699) HEPATITIS B PCR, [id number] 13:33:52 Test Item Value Reference Range Interpretation Comments HBV RESULT COMPONENT HBV DNA not detected HBV DNA not detected (BEAKER) (test code = 2701) [id number] 12:37:58 Test Item Value Reference Range Interpretation Comments FIBRINOGEN LEVEL (BEAKER) (test 280 mg/dl 225-434 code = 658) PROTHROMBIN TIME/[id number] 12:37:40 Test Item Value Reference Range Interpretation Comments PROTIME (BEAKER) (test code = 17.8 seconds 11.9-14.2 H 759) INR (BEAKER) (test code = 370) 1.57 <=5.90 RECOMMENDED COUMADIN/WARFARIN INR THERAPY RANGESSTANDARD DOSE: 2.0 - 3.0 Includes: PROPHYLAXIS for venous thrombosis, systemic embolization; TREATMENT for venous thrombosis and/or pulmonary embolus.HIGH RISK: Target INR is 2.5-3.5 for patients with mechanical heart valves.CMV PCR, [id number] 12:25:04 Test Item Value Reference Range Interpretation Comments CMV VIRAL LOAD - Negative or below See_Comment [Auto mated message] NEGATIVE (BEAKER) the linear range The sy stem which (test code = of the assay generated this 2557) (<300 IU/mL) result transmit erna reference range [...] WBC 0-0 (test code = 413) CALCIUM, [id number] 12:09:13 Test Item Value Reference Range Interpretation Comments CALCIUM IONIZED (BEAKER) (test 1.05 mmol/L 1.12-1.27 L code = 698) PH, BLOOD (BEAKER) (test code = 7.46 1810) POCT-GLUCOSE [id number] 11:23:12 Test Item Value Reference Range Interpretation Comments POC-GLUCOSE METER 92 mg/dL 70-110 : TESTED A T [facility] 6720 ([facility]) (test code = [place], 1538) [address]: Housesmith/Techni skip ID = [id number] for ADRIEN C (V)ANNMARIE EBV ANTIBODY, [id number] 10:34:21 Test Item Value Reference Range Interpretation Comments ANDREW SUAREZ VIRAL CAPSID Negative Negative, Equivocal ANTIGEN IGM (BEAKER) (test code = 3418) Andrew Suarez Viral Capsid Antigen IgM Result Interpretation: </= 0.8 Al Negative 0.9-1.0 Al Equivocal >/= 1.1 Al PositiveVANCOMYCIN LEVEL, TROUGH 2022-06-10 09:41:44 Test Item Value Reference Range Interpretation Comments VANCOMYCIN TROUGH (BEAKER) (test 16.1 ug/mL 10.0-20.0 code = 522) [place] ID - QISTYVOHCZNOMGO1676-00-20 06:41:29 Test Item Value Reference Range Interpretation Comments FIBRINOGEN LEVEL (BEAKER) (test 260 mg/dl 225-434 code = 658) PROTHROMBIN TIME/[id number] 06:41:06 Test Item Value Reference Range Interpretation [...] WBC 0-0 (test code = 413) CALCIUM, [id number] 06:04:52 Test Item Value Reference Range Interpretation Comments CALCIUM IONIZED (BEAKER) (test 1.12 mmol/L 1.12-1.27 code = 698) PH, BLOOD (BEAKER) (test code = 7.48 1810) POCT-GLUCOSE [id number] 05:43:21 Test Item Value Reference Range Interpretation Comments POC-GLUCOSE METER 91 mg/dL 70-110 : TESTED A T [facility] 6720 (BEAKER) (test code = JANIE [facility], 1538) [address]: Housesmith/Techni skip ID = [id number] for MSIB I, MNCEDISI BASIC METABOLIC [id number] 03:27:46 Test Item Value Reference Range Interpretation [...] not appl icable for dialysis patien ts [place] ID - MARCOSpecimen slightly ictericHEPATIC FUNCTION [id number] 03:26:54 Test Item Value Reference Range Interpretation [...] code = 153 U/L 6-55 H 347) [place] ID - MARCOSpecimen slightly bscdnrfXECFTQUJU5797-75-68 03:26:53 Test Item Value Reference Range Interpretation Comments MAGNESIUM (BEAKER) (test code = 1.6 mg/dL 1.6-2.6 627) [place] ID - BLITSKZODSISZJT0185-68-17 03:26:53 Test Item Value Reference Range Interpretation Comments PHOSPHORUS (BEAKER) (test code = 2.0 mg/dL 2.3-4.7 L 604) [place] ID - MARCOCALCIUM, [id number] 01:25:13 Test Item Value Reference Range Interpretation Comments CALCIUM IONIZED (BEAKER) (test 1.04 mmol/L 1.12-1.27 L code = 698) PH, BLOOD (BEAKER) (test code = 7.48 1810) [id number] 01:24:42 Test Item Value Reference Range Interpretation Comments FIBRINOGEN LEVEL (BEAKER) (test 257 mg/dl 225-434 code = 658) PROTHROMBIN TIME/[id number] 01:23:57 Test Item Value Reference Range Interpretation [...] CELLS (BEAKER) (test code = 413) Prepare zjnjlpzgjiqlcsb1292-18-77 23:54:00 Test Item Value Reference Range Interpretation Comments Unit ABO (test code = A Pos 1688843) UNIT NUMBER (test code = [id number] 934-0) Status (test code = 8637585) TX_TIMEINCHART Blood Bank Product (test code CRYOPRECIPITATE = 2263) PRODUCT CODE (test code = F0804Q53 933-2) [facility] [id number] 23:54:00 Test Item Value Reference Range Interpretation Comments Unit ABO (test code = 0805358) A Neg UNIT NUMBER (test code = [id number] 934-0) Status (test code = 5497235) TX_TIMEINCHART Blood Bank Product (test code FFP = 2263) PRODUCT CODE (test code = V9704Y50 933-2) [facility] Center[facility] xhdnglnrdjegidm7708-32-85 23:54:00 Test Item Value Reference Range Interpretation Comments Unit ABO (test code = A Pos 6309142) UNIT NUMBER (test code = [id number] 934-0) Status (test code = 3840100) TX_TIMEINCHART Blood Bank Product (test code CRYOPRECIPITATE = 2263) PRODUCT CODE (test code = Y1351I45 933-2) [facility] Center[facility] [id number] 23:54:00 Test Item Value Reference Range Interpretation Comments Unit ABO (test code = 8611755) A Neg UNIT NUMBER (test code = [id number] 934-0) Status (test code = 7419333) TX_TIMEINCHART Blood Bank Product (test code FFP = 2263) PRODUCT CODE (test code = G3003T05 933-2) [facility] CenterPOCT[facility]GLUCOSE [id number] 23:42:59 Test Item Value Reference Range Interpretation Comments POC-GLUCOSE METER 91 mg/dL 70-110 : TESTED A T [facility] 6720 (BEAKER) (test code = JANIE RUBAL[place], 1538) [address]: Housesmith/Techni skip ID = [id number] for MSIB I, MNCEDISI CALCIUM, [id number] 18:10:25 Test Item Value Reference Range Interpretation Comments CALCIUM IONIZED (BEAKER) (test 1.11 mmol/L 1.12-1.27 L code = 698) PH, BLOOD (BEAKER) (test code = 7.48 1810) [id number] 17:48:32 Test Item Value Reference Range Interpretation Comments FIBRINOGEN LEVEL (BEAKER) (test 179 mg/dl 225-434 L code = 658) PROTHROMBIN TIME/[id number] 17:48:12 Test Item Value Reference Range Interpretation [...] WBC 0-0 (test code = 413) POCT-GLUCOSE [id number] 17:29:37 Test Item Value Reference Range Interpretation Comments POC-GLUCOSE METER 95 mg/dL 70-110 : TESTED A T [facility] 6720 (BEAKER) (test code = JANIE RUBALCA[place], 1538) [address]23[address]: Housesmith/Techni skip ID = [id number] for Joyce Hilario [id number] 13:31:18 Test Item Value Reference Range Interpretation Comments PROCALCITONIN (BEAKER) (test code 18.38 ng/mL <0.05 = 3036) SEPSIS RISK (ng/mL)Low: 0.05-0.50Intermediate: 0.51-2.00High: >=2.01 [id number] 12:31:16 Test Item Value Reference Range Interpretation Comments FIBRINOGEN LEVEL (BEAKER) (test 178 mg/dl 225-434 L code = 658) POCT-GLUCOSE [id number] 12:29:44 Test Item Value Reference Range Interpretation Comments POC-GLUCOSE METER 116 mg/dL 70-110 H : TESTED A T [facility] 6720 (BEAKER) ([facility] = 1538) 02497: Housesmith/Techni skip ID = [id number] for Amanda Giles h CALCIUM, [id number] 12:27:55 Test Item Value Reference Range Interpretation Comments CALCIUM IONIZED (BEAKER) (test 1.10 mmol/L 1.12-1.27 L code = 698) PH, BLOOD (BEAKER) (test code = 7.48 0180) PROTHROMBIN TIME/[id number] 12:25:56 Test Item Value Reference Range Interpretation [...] 0-0 (test code = 413) BASIC METABOLIC [id number] 09:00:33 Test Item Value Reference Range Interpretation [...] not appl icable for dialysis patien ts [place] ID - MARCOSpecimen slightly qwkydchITOLRKFOZ4622-71-04 08:56:11 Test Item Value Reference Range Interpretation Comments MAGNESIUM (BEAKER) (test code = 2.0 mg/dL 1.6-2.6 627) [place] ID - SUOLactic Acid, Xaijsnqz1448-98-10 08:52:09 Test Item Value Reference Range Interpretation Comments Lactate, Art (test code 0.9 mmol/L 0.5-2.2 = 2874) NING (test code = NING) H[place]mith ID - Iam slightly icteric Lab Interpretation Normal (test code = 87556-2) [facility] CenterLactic Acid, [id number] 08:52:09 Test Item Value Reference Range Interpretation Comments Lactate, Art (test code 0.9 mmol/L 0.5-2.2 = 2874) NING (test code = NING) [place]mith ID - Iam slightly icteric Lab Interpretation Normal (test code = 26730-1) [facility] CenterLACTIC ACID, [id number] 08:52:09 Test Item Value Reference Range Interpretation Comments LACTATE BLOOD ARTERIAL (2) 0.9 mmol/L 0.5-2.2 (BEAKER) (test code = 2874) [place]mith ID - Iam slightly esevsowMFZRJCSIPV9723-52-39 08:37:49 Test Item Value Reference Range Interpretation Comments FIBRINOGEN LEVEL (BEAKER) (test 174 mg/dl 225-434 L code = 658) PROTHROMBIN TIME/[id number] 08:37:17 Test Item Value Reference Range Interpretation [...] H (test code = 413) Blood gas, elhjnvml4277-52-10 08:26:39 Test Item Value Reference Range Interpretation [...] 21 Lab Interpretation Abnormal (test code = 36004-8) [facility] CenterBlood gas, [id number] 08:26:39 Test Item Value Reference Range Interpretation [...] 21 Lab Interpretation Abnormal (test code = 08765-1) [facility], [id number] 08:26:39 Test Item Value Reference Range Interpretation [...] (BEAKER) (test code = 1819) 21.0 CALCIUM, [id number] 08:25:08 Test Item Value Reference Range Interpretation Comments CALCIUM IONIZED (BEAKER) (test 1.13 mmol/L 1.12-1.27 code = 698) PH, BLOOD (BEAKER) (test code = 7.50 1810) RAD, CHEST, 1 VIEW, NON [id number] 07:18:00Reason for exam:->Retracted R IJ CVC. Please, re-evaluate placementShould this be performed at the bedside?->[facility] : 1985 Sex: FFINAL [...] changes. Additional findings: None. Signed: Kevin Schofield MDRepmosaic life care [facility] Verified Date/Time: 06/09/2022 07:18:03 Urinalysis w/Microscopic + Reflex to [id number] 06:11:15 Test Item Value Reference Range Interpretation Comments Color, UA (test code Yellow = 5778-6) Clarity, UA (test Clear code = 5767-9) Specific Goldsmith, UA 1.020 1.001-1.035 (test code = 5811-5) pH, UA (test code = 6.5 5.0-8.0 5803-2) Protein, UA (test Negative negative code = 86508-0) Glucose, UA (test Negative Negative code = 365) Ketones, UA (test Negative negative code = 2514-8) Bilirubin, UA (test Negative Negative code = 27666-3) Blood, UA (test code Small Negative A = 00869-7) Nitrite, UA (test Negative Negative code = 5802-4) Leukocytes, UA (test Negative Negative code = 5799-2) Urobilinogen, UA 2.0 (test code = 67135-0) RBC, UA (test code = 4 See_Comment [Autom ated 23398-0) message] The system which generated this result [...] . Bacteria, UA (test Rare code = 36428-2) Squam Epithel, UA See_Comment [Automate d (test code = 27929-5) messag e] The system which generated this result transmit erna reference range : /HPF. The reference range was not used to interpret this result as normal/abnormal . Hyaline Casts, UA 3 See_Comment [Automate d (test code = 87171-7) messag e] The system which generated this result transmit erna reference range : /LPF. The reference range was not used to interpret this result as normal/abnormal . Specimen Source (test code = 2795) NING (test code = NING) Housesmith ID - tech Lab Interpretation Abnormal (test code = 84204-0) [facility] CenterUrinalysis w/Microscopic + Reflex to Culture 2022-06-09 06:11:15 Test Item Value Reference Range Interpretation Comments Color, UA (test code Yellow = 5778-6) Clarity, UA (test Clear code = 5767-9) Specific Goldsmith, UA 1.020 1.001-1.035 (test code = 5811-5) pH, UA (test code = 6.5 5.0-8.0 5803-2) Protein, UA (test Negative negative code = 17126-7) Glucose, UA (test Negative Negative code = 365) Ketones, UA (test Negative negative code = 2514-8) Bilirubin, UA (test Negative Negative code = 00285-6) Blood, UA (test code Small Negative A = 93764-0) Nitrite, UA (test Negative Negative code = 5802-4) Leukocytes, UA (test Negative Negative code = 5799-2) Urobilinogen, UA 2.0 (test code = 08091-9) RBC, UA (test code = 4 See_Comment [Autom ated 77367-4) message] The system which generated this result [...] . Bacteria, UA (test Rare code = 43150-0) Squam Epithel, UA See_Comment [Automate d (test code = 67946-9) messag e] The system which generated this result transmit erna reference range : /HPF. The reference range was not used to interpret this result as normal/abnormal . Hyaline Casts, UA 3 See_Comment [Automate d (test code = 34504-9) messag e] The system which generated this result transmit erna reference range : /LPF. The reference range was not used to interpret this result as normal/abnormal . Specimen Source (test code = 2795) NING (test code = NING) H[place] ID - tech Lab Interpretation Abnormal (test code = 32949-5) [facility] CenterURINALYSIS W/ REFLEX URINE [id number] 06:11:15 Test Item Value Reference Range Interpretation [...] /LPF 514) SOURCE(BEAKER) (test code = 2795) [place] ID - techRapid drug screen, yfsvc8498-01-77 05:42:00 Test Item Value Reference Range Interpretation Comments Barbiturate Screen Negative Negative (test code = 54752-2) Benzodiazepine Screen Positive Negative A (test code = 13739-0) Cocaine (Metab.) Positive Negative A Screen (test code = 3397-7) Methadone Screen (test Negative Negative code = 57228-6) Opiate Screen (test Negative Negative code = 29841-3) Cannabinoid Screen Negative Negative (test code = 07165-9) Amph/Methamph Screen Negative Negative (test code = 81718-9) Phencyclidine Screen Negative Negative (test code = 09096-4) pH, UA (test code = 6.5 5.0-8.0 5803-2) NING (test code = NING) DRUG CUTOFF CONC.Cocaine 300 ng/mL Cannabinoid 50 ng/mLBenzodiazepine 200 ng/mLBarbiturate 200 ng/mLPhencyclidine 25 ng/mLOpiate 300 ng/mLMethadone 300 ng/mLAmphetamine/ 1000 ng/mL Methamphetamine This assay provides an unconfirmed qualitative test result for the clinical management of patients in emergency situations. Chain of custody not maintained. Some borr-dja-gwpymqb medications, as well as adulterants, may cause inaccurate results. Clinical correlation should be applied. A more comprehensive drug screen or confirmation of a detected drug may be performed upon request.[place]mith ID - BS Lab Interpretation Abnormal (test code = 76878-1) [facility] CenterRapid drug screen, [id number] 05:42:00 Test Item Value Reference Range Interpretation Comments Barbiturate Screen Negative Negative (test code = 18331-9) Benzodiazepine Screen Positive Negative A (test code = 22251-2) Cocaine (Metab.) Positive Negative A Screen (test code = 3397-7) Methadone Screen (test Negative Negative code = 73706-0) Opiate Screen (test Negative Negative code = 21603-9) Cannabinoid Screen Negative Negative (test code = 42455-4) Amph/Methamph Screen Negative Negative (test code = 62192-5) Phencyclidine Screen Negative Negative (test code = 40684-0) pH, UA (test code = 6.5 5.0-8.0 5803-2) NING (test code = NING) DRUG CUTOFF CONC.Cocaine 300 ng/mL Cannabinoid 50 ng/mLBenzodiazepine 200 ng/mLBarbiturate 200 ng/mLPhencyclidine 25 ng/mLOpiate 300 ng/mLMethadone 300 ng/mLAmphetamine/ 1000 ng/mL Methamphetamine This assay provides an unconfirmed qualitative test result for the clinical management of patients in emergency situations. Chain of custody not maintained. Some aqkg-lzi-ljsoxpy medications, as well as adulterants, may cause inaccurate results. Clinical correlation should be applied. A more comprehensive drug screen or confirmation of a detected drug may be performed upon request.H[place]mith ID - BS Lab Interpretation Abnormal (test code = 78534-5) [facility] CenterRAPID DRUG SCREEN, [id number] 05:42:00 Test Item Value Reference Range Interpretation [...] ng/mLOpiate 300 ng/mLMethadone 300 ng/mLAmphetamine/ 1000 ng/mL MethamphetamineThisassay provides an unconfirmed qualitative test result for the clinical management of patients in emergency situations. Chain of custody not maintained. Some zcze-gwk-ivjcndu medications, as well as adulterants, may cause inaccurate results. Clinical correlation should be applied. A more comprehensive drug screen or confirmation of a detected drug may be performed upon request.[place] ID - BSBLOOD GAS, ARTERIAL 2022-06-09 05:16:29 [...] (BEAKER) (test code = 1819) 21.0 CALCIUM, [id number] 05:14:38 Test Item Value Reference Range Interpretation Comments CALCIUM IONIZED (BEAKER) (test 1.21 mmol/L 1.12-1.27 code = 698) PH, BLOOD (BEAKER) (test code = 7.47 1810) BASIC METABOLIC [id number] 05:08:20 Test Item Value Reference Range Interpretation [...] not appl icable for dialysis patien ts [place] ID - SUOSpecvernonn slightly ictericHEPATIC FUNCTION [id number] 05:08:20 Test Item Value Reference Range Interpretation [...] code = 121 U/L 6-55 H 347) [place] ID - MARCOSpecimen slightly czgdyaxTYQBNHLTR4704-78-17 05:08:19 Test Item Value Reference Range Interpretation Comments MAGNESIUM (BEAKER) (test code = 2.4 mg/dL 1.6-2.6 627) [place] ID - ARHTJQCZCXNLWXK9227-63-33 05:08:19 Test Item Value Reference Range Interpretation Comments PHOSPHORUS (BEAKER) (test code = 2.8 mg/dL 2.3-4.7 604) [place] ID - MARCOTHROMBOELASTOGRAPH (TEG)2022-06-09 05:00:32 Test Item [...] % 0.0-5.0 code = 1414) LACTIC ACID, [id number] 04:54:00 Test Item Value Reference Range Interpretation Comments LACTATE BLOOD ARTERIAL (2) 0.9 mmol/L 0.5-2.2 (BEAKER) (test code = 2874) [place] ID - BSSpecimen slightly ynscvhyESIAQNKJKL9917-43-18 04:50:13 Test Item Value Reference Range Interpretation Comments FIBRINOGEN LEVEL (BEAKER) (test 167 mg/dl 225-434 L code = 658) PROTHROMBIN TIME/[id number] 04:49:50 Test Item Value Reference Range Interpretation [...] WBC 0-0 (test code = 413) VITAMIN [id number] 02:35:55 Test Item Value Reference Range Interpretation Comments VITAMIN B12 (BEAKER) (test code = > pg/mL 213-816 H 774) [place] ID - MARCOBASIC METABOLIC [id number] 01:39:15 Test Item Value Reference Range Interpretation [...] not appl icable for dialysis patien ts [place] ID - BSSpecimen slightly zuibtttYCAPOLBTG7212-18-05 01:23:08 Test Item Value Reference Range Interpretation Comments MAGNESIUM (BEAKER) (test code = 1.5 mg/dL 1.6-2.6 L 627) H[place]mith ID - BSLACTIC ACID, [id number] 01:17:49 Test Item Value Reference Range Interpretation Comments LACTATE BLOOD ARTERIAL (2) 2.3 mmol/L 0.5-2.2 H (BEAKER) (test code = 2874) H[place]mith ID - BSSpecimen slightly icteric(CELLAVISION MANUAL DIFF)2022-06-09 [...] CONCENTRATION Decreased (CELLAVISION)(BEAKER) (test code = 3438) H[place]mith ID - Carine Bobo comments: Slide comments:CBC W/PLT COUNT & AUTO [id number] 01:10:12 Test Item Value Reference Range Interpretation [...] H CELLS (BEAKER) (test code = 413) [id number] 01:04:07 Test Item Value Reference Range Interpretation Comments FIBRINOGEN LEVEL (BEAKER) (test 151 mg/dl 225-434 L code = 658) CALCIUM, [id number] 00:40:04 Test Item Value Reference Range Interpretation Comments CALCIUM IONIZED (BEAKER) (test 1.06 mmol/L 1.12-1.27 L code = 698) PH, BLOOD (BEAKER) (test code = 7.45 1810) BLOOD GAS, [id number] 00:39:58 Test Item Value Reference Range Interpretation [...] 1819) 21.0 RAD, CHEST, 1 VIEW, NON [id number] 00:26:00Reason for exam:->Left IJ central line placementShould this be performed at the bedside?->[facility] 1985 Sex: FFINAL REPORT [...] left IJ line placement. Signed: Flora Marinelli MDReport Verified Date/Time: 06/09/2022 00:26:48 BLOOD GAS, [id number] 22:28:00 Test Item Value Reference Range Interpretation [...] (test 1.0 % 0.0-5.0 code = 1414) [id number] 21:35:45 Test Item Value Reference Range Interpretation Comments FIBRINOGEN LEVEL (BEAKER) (test 149 mg/dl 225-434 L code = 658) [id number] 21:28:48 Test Item Value Reference Range Interpretation Comments FERRITIN (BEAKER) (test code = 223.31 ng/mL 5.00-275.00 361) H[place]mith ID - MMLACTIC ACID, [id number] 21:17:43 Test Item Value Reference Range Interpretation Comments LACTATE BLOOD ARTERIAL (2) 9.0 mmol/L 0.5-2.2 HH (BEAKER) (test code = 2874) H[place]mith ID - [id number] 21:17:07 Test Item Value Reference Range Interpretation Comments PHOSPHORUS (BEAKER) (test code = 3.8 mg/dL 2.3-4.7 604) H[place]mith ID - [id number] 21:17:06 Test Item Value Reference Range Interpretation Comments MAGNESIUM (BEAKER) (test code = 1.9 mg/dL 1.6-2.6 627) H[place]mith ID - BSBLOOD GAS, [id number] 21:12:20 Test Item Value Reference Range Interpretation [...] (test code = 1819) 21.0 BASIC METABOLIC [id number] 21:11:38 Test Item Value Reference Range Interpretation [...] not appl icable for dialysis patien ts H[place]mith ID - [id number] 21:10:06 Test Item Value Reference Range Interpretation Comments PARTIAL THROMBOPLASTIN TIME 32.3 seconds 22.5-36.0 (BEAKER) (test code = 760) PROTHROMBIN TIME/[id number] 21:09:27 Test Item Value Reference Range Interpretation Comments PROTIME (BEAKER) (test code = 23.4 seconds 11.9-14.2 H 759) INR (BEAKER) (test code = 370) 2.23 <=5.90 RECOMMENDED COUMADIN/WARFARIN INR THERAPY RANGESSTANDARD DOSE: 2.0 - 3.0 Includes: PROPHYLAXIS for venous thrombosis, systemic embolization; TREATMENT for venous thrombosis and/or pulmonary embolus.HIGH RISK: Target INR is 2.5-3.5 for patients with mechanical heart valves.CALCIUM, [id number] 21:01:33 Test Item Value Reference Range Interpretation Comments CALCIUM IONIZED (BEAKER) (test 0.93 mmol/L 1.12-1.27 L code = 698) PH, BLOOD (BEAKER) (test code = 7.48 1810) LACTATE DEHYDROGENASE (LDH)2022-06-08 20:52:07 Test Item Value Reference Range Interpretation Comments LACTATE DEHYDROGENASE 300 U/L 125-220 H Specim en slightly (BEAKER) (test code = hemoly zed 635) Housesmith ID - BSIRON, TIBC, % SAT. (WITHOUT FERRITIN)2022-06-08 20:50:25 Test Item Value Reference Range Interpretation Comments IRON (BEAKER) (test code = 547) 120.0 ug/dL 40.0-160.0 TOTAL IRON BINDING CAPACITY 121 ug/dL 250-450 L (BEAKER) (test code = 769) IRON % SATURATION (2) (BEAKER) 99 % 20-55 H (test code = 7768) H[place]mith ID - BSRETICULOCYTE [id number] 20:36:25 Test Item Value Reference Range Interpretation Comments RETICULOCYTE COUNT PCT (BEAKER) (test 1.3 % 0.5-1.7 code = 575) Housesmith ID - 6000HIV-[id number] ANTIGEN WITH HIV-1/2 [id number] 20:11:17 Test Item Value Reference Range Interpretation [...] 4.1 % 0.0-5.0 code = 1414) Screen, [id number] 18:29:14 Test Item Value Reference Range Interpretation Comments Preg Test, Ur (test code = 2112-1) Negative Negative Lab Interpretation (test code = Normal 98486-3) [facility] CenterPregnancy Screen, [id number] 18:29:14 Test Item Value Reference Range Interpretation Comments Preg Test, Ur (test code = 2112-1) Negative Negative Lab Interpretation (test code = Normal 87864-3) [facility] CenterPREGNANCY SCREEN, [id number] 18:29:14 Test Item Value Reference Range Interpretation Comments TEST URINE (BEAKER) (test Negative Negative code = 583) BASIC METABOLIC [id number] 18:17:25 Test Item Value Reference Range Interpretation [...] not appl icable for dialysis patien ts H[place]mith ID - BSCALCIUM, [id number] 18:05:08 Test Item Value Reference Range Interpretation Comments CALCIUM IONIZED (BEAKER) (test 0.71 mmol/L 1.12-1.27 LL code = 698) PH, BLOOD (BEAKER) (test code = 7.46 1810) CBC W/PLT COUNT & AUTO [id number] 18:04:39 Test Item Value Reference Range Interpretation [...] PERCENT (BEAKER) (test code = 2801) T4, [id number] 18:01:04 Test Item Value Reference Range Interpretation Comments FREE T4 (BEAKER) (test code = 655) 1.36 ng/dL 0.70-1.48 Housesmith ID - MMLACTIC ACID, [id number] 17:58:08 Test Item Value Reference Range Interpretation Comments LACTATE BLOOD 1.7 mmol/L 0.5-2.2 Specimen sligh tly ARTERIAL (2) (BEAKER) hemoly zed (test code = 2874) Housesmith ID - KAB-KWXSO2487-51-01 17:55:47 Test Item Value Reference Range Interpretation [...] exclusion of thrombosis is within 95-100% range. PT/[id number] 17:53:22 Test Item Value Reference Range Interpretation [...] is 2.5-3.5 for patients with mechanical heart valves.[id number] 17:53:09 Test Item Value Reference Range Interpretation Comments FIBRINOGEN LEVEL (BEAKER) (test 243 mg/dl 225-434 code = 658) POC [id number] 17:40:15 Test Item Value Reference Range Interpretation Comments POC-Glucose (test code = 187 mg/dL 70-110 H : T ESTED AT [facility] 1855) [address] [facility], [address]: Housesmith/Techni skip ID = [id number] for ANGELINA MOURA Lab Interpretation (test Abnormal code = 66245-3) [facility] [id number] 17:40:15 Test Item Value Reference Range Interpretation Comments POC-Glucose (test code = 187 mg/dL 70-110 H : T ESTED AT [facility] 1855) [address] [facility], [address]70 30: Housesmith/Techni skip ID = [id number] for ANGELINA MOURA Lab Interpretation (test Abnormal code = 21044-9) [facility] CenterPOCT-[id number] 17:40:15 Test Item Value Reference Range Interpretation Comments POC-GLUCOSE (BEAKER) 187 mg/dL 70-110 H : TESTE D AT [facility] 6720 (test code = 1855) [facility], [address]: Housesmith/Techni skip ID = [id number] for ANGELINA MOURA [id number] 17:40:14 Test Item Value Reference Range Interpretation Comments POC-Hemoglobin (test code 11.9 g/dL 12.0-15.0 L : TESTED AT [facility] = 1856) [address] [facility], [address]: Housesmith/Techni skip ID = [id number] for ANGELINA MOURA Lab Interpretation (test Abnormal code = 98496-5) [facility] CenterYxrpafAQVP-ILHBCIBRQT9515-81-01 17:40:14 Test Item Value Reference Range Interpretation Comments POC-Hematocrit (test code 35 % 36-45 L : = 1857) Housesmith/Techni skip ID = [id number] for ANGELINA MOURA Lab Interpretation (test Abnormal code = 43726-4) [facility] CenterImupljLUAQ-PINOVIEIRH9133-13-01 17:40:14 Test Item Value Reference Range Interpretation Comments POC-Hemoglobin (test code 11.9 g/dL 12.0-15.0 L : TESTED AT [facility] = 1856) [address] [facility], 770 30: Housesmith/Techni skip ID = [id number] for ANGELINA MOURA Lab Interpretation (test Abnormal code = 63420-0) [facility] CenterNhirqbCLFV-LUHWCUSHFW8294-96-01 17:40:14 Test Item Value Reference Range Interpretation Comments POC-Hematocrit (test code 35 % 36-45 L : = 1857) Housesmith/Techni skip ID = [id number] for WILL MOURAAN Lab Interpretation (test Abnormal code = 82692-3) [facility] CenterMkeylyPUKL-LMHTNXYDPF7215-28-01 17:40:14 Test Item Value Reference Range Interpretation Comments POC-HEMOGLOBIN 11.9 g/dL 12.0-15.0 L : TESTED AT B [facility] 6720 (ALEXANDER) (test code [place], = 1856) [address]: Housesmith/Techni skip ID = [id number] for ANGELINA MOURA RUKF-[id number] 17:40:14 Test Item Value Reference Range Interpretation Comments POC-HEMATOCRIT 35 % 36-45 L : Housesmith/Te chnician ID = (ALEXANDER) (test code = 208350 for ANGELINA MOURA 185) POC-Blood gases, igpepegc9028-43-86 17:40:13 Test Item Value Reference Range Interpretation [...] tomated message] code = 1838) The system Cubic[employer] generated this result transmit erna reference range : 80.0 - 90.0 mm Hg. The reference r yolanda was not used to interpret this result as normal/abnormal . SO2, Arterial-POC (test 98.0 % 96.0-97.0 H code = 1839) HCO3, Arterilal-POC 18.2 meq/L 21.0-29.0 L (test code = 1840) BE, Arterial-POC (test -6.0 meq/L -2.0-3.0 L : ZOILA ERNA AT [facility] code = 1841) [address] [place], [address]: Housesmith/Techni skip ID = [id number] for ANGELINA MOURA Lab Interpretation Abnormal (test code = 60248-3) [facility] CenterPOC-Ynwmkufwa6208-67-28 17:40:13 Test Item Value Reference Range Interpretation Comments POC-Potassium (test code 3.9 meq/L 3.6-5.5 : Peng [place] AT [facility] = 1540) [address] [facility] [place], [address]: Housesmith/Techni skip ID = [id number] for ANGELINA MOURA Lab Interpretation (test Normal code = 99095-4) [facility]-Xuftze6166-37-42 17:40:13 Test Item Value Reference Range Interpretation Comments POC-Sodium (test code = 134 meq/L 135-148 L : TE STED AT [facility] 1542) [address] [facility] [place], [address]: Housesmith/Techni skip ID = [id number] for ANGELINA MOURA Lab Interpretation (test Abnormal code = 91733-2) [facility]-Blood gases, sdzrdujm1227-60-00 17:40:13 Test Item Value Reference Range Interpretation [...] tomated message] code = 1838) The system Cubic[employer] generated this result transmit erna reference range : 80.0 - 90.0 mm Hg. The reference r yolanda was not used to interpret this result as normal/abnormal . SO2, Arterial-POC (test 98.0 % 96.0-97.0 H code = 1839) HCO3, Arterilal-POC 18.2 meq/L 21.0-29.0 L (test code = 1840) BE, Arterial-POC (test -6.0 meq/L -2.0-3.0 L : ZOILA ERNA AT [facility] code = 1841) [address] [place], [address]: Housesmith/Techni skip ID = [id number] for ANGELINA MOURA Lab Interpretation Abnormal (test code = 56394-0) [facility]-Smxnmldai0404-24-02 17:40:13 Test Item Value Reference Range Interpretation Comments POC-Potassium (test code 3.9 meq/L 3.6-5.5 : T ESTED AT [facility] = 1540) [address] [facility], 770 30: Housesmith/Techni skip ID = [id number] for ANGELINA MOURA Lab Interpretation (test Normal code = 24665-3) [facility]-Ycmytq4246-81-65 17:40:13 Test Item Value Reference Range Interpretation Comments POC-Sodium (test code = 134 meq/L 135-148 L : TE STED AT [facility] 1542) [address] [facility], [address]70 30: Housesmith/Techni skip ID = [id number] for ANGELINA MOURA Lab Interpretation (test Abnormal code = 52537-0) [facility]-BLOOD GASES, [id number] 17:40:13 Test Item Value Reference Range Interpretation [...] -6.0 meq/L -2.0-3.0 L : TESTED AT [facility] [address] ARTERIAL-POC [facility], (BEAKER) (test 42790: code = 1841) Housesmith/Techni skip ID = [id number] for ANGELINA MOURA [id number]-[id number] 17:40:13 Test Item Value Reference Range Interpretation Comments POC-SODIUM (BEAKER) 134 meq/L 135-148 L : TESTED AT [facility] 6720 (test code = 1542) [place], [address]: Housesmith/Techni skip ID = [id number] for ANGELINA MOURA RWRH-[id number] 17:40:13 Test Item Value Reference Range Interpretation Comments POC-POTASSIUM 3.9 meq/L 3.6-5.5 : TESTED AT [facility] 6720 (BEAKER) (test code [place], = 1540) [address]: Housesmith/Techni skip ID = [id number] for ANGELINA MOURA U/S, DUPLEX, [id number] 17:35:00Reason for exam:->please evaluate hepatic vasculature [facility] : 1985 Sex: FFINAL REPORT [...] hepatic arteries and portal veins. Signed: Amalia Rubioort Verified Date/Time: 06/08/2022 17:35:07 Reading Location: [address] Body Reading Room HEPATITIS B SURFACE [id number] 17:32:15 Test Item Value Reference Range Interpretation Comments HEPATITIS B SURFACE ANTIBODY < mIU/mL <8.0 (BEAKER) (test code = 647) Housesmith ID - BSHEPATITIS B CORE ANTIBODY, [id number] 17:27:01 Test Item Value Reference Range Interpretation Comments HEPATITIS B CORE TOTAL ANTIBODY Nonreactive Nonreactive (BEAKER) (test code = 497) Housesmith ID - BSHEPATITIS A ANTIBODY, [id number] 17:27:01 Test Item Value Reference Range Interpretation Comments HEPATITIS A IGG ANTIBODY (BEAKER) Nonreactive Nonreactive (test code = 2797) Housesmith ID - BSHEPATITIS A ANTIBODY, [id number] 17:27:00 Test Item Value Reference Range Interpretation Comments HEPATITIS A IGM ANTIBODY (BEAKER) Nonreactive Nonreactive (test code = 498) Housesmith ID - TTOEGKKARRV6180-17-77 17:16:00 Test Item Value Reference Range Interpretation Comments POTASSIUM (BEAKER) (test code = 3.0 meq/L 3.5-5.1 L 379) Housesmith ID - KFMDNSQO9402-36-43 17:16:00 Test Item Value Reference Range Interpretation Comments SODIUM (BEAKER) (test code = 381) 134 meq/L 136-145 L Housesmith ID - [id number] 17:16:00 Test Item Value Reference Range Interpretation Comments GLUCOSE RANDOM (BEAKER) (test code 107 mg/dL 70-105 H = 652) Housesmith ID - MMSALICYLATE [id number] 17:04:01 Test Item Value Reference Range Interpretation Comments SALICYLATE LEVEL (BEAKER) (test code < mg/dL 15.0-30.0 L = 764) Therapeutic Range: 15.0-30.0 mg/dLToxic: >30.0 mg/dL Lethal: >70.0 mg/dLOperator ID - EYDNRWGXBS4974-29-56 16:50:51 Test Item Value Reference Range Interpretation Comments CORTISOL, TOTAL (BEAKER) (test 13.4 ug/dL 3.7-19.4 code = 2755) Housesmith ID - CGKPYAC-5-IQRRWELYNTD8451-04-01 16:35:51 Test Item Value Reference Range Interpretation Comments ALPHA-1 ANTITRYPSIN (BEAKER) 282.30 mg/dL 90.00-200.00 H (test code = 502) Housesmith ID - BSACETAMINOPHEN [id number] 16:30:13 Test Item Value Reference Range Interpretation Comments ACETAMINOPHEN LEVEL (BEAKER) (test < ug/mL 10.0-30.0 L code = 344) Therapeutic Range: 10.0-30.0 g/mLToxic Levels: >200.0 g/mLOperator ID - MM TSH/FREE T4 IF [id number] 16:15:28 Test Item Value Reference Range Interpretation Comments THYROID STIMULATING HORMONE 0.121 uIU/mL 0.350-4.940 L (BEAKER) (test code = 772) Housesmith ID - BSHEPATITIS C [id number] 16:10:06 Test Item Value Reference Range Interpretation Comments HEPATITIS C ANTIBODY (BEAKER) Nonreactive Nonreactive (test code = 367) Housesmith ID - BSHEPATITIS B SURFACE [id number] 16:10:05 Test Item Value Reference Range Interpretation Comments HEPATITIS B SURFACE ANTIGEN (2) Nonreactive Nonreactive (BEAKER) (test code = 2585) Specimen is considered negative for HBsAg.VFMFXFK5208-49-31 15:13:41 Test Item Value Reference Range Interpretation Comments AMMONIA (BEAKER) (test code = 348) 44 mol/L 18-72 Housesmith ID - MMCREATINE KINASE (CK)2022-06-08 15:03:37 Test Item Value Reference Range Interpretation Comments CREATINE KINASE TOTAL (BEAKER) (test 42 U/L 29-200 code = 380) Housesmith ID - MMU/S, ABDOMINAL, FQRHVKIY4019-82-35 14:56:00Reason for exam:- >eval RUQ and [facility] 1985 Sex: FFINAL [...] Hepatomegaly.2. Cholelithiasis without biliary dilatation. Signed: Amalia Rubioeport Verified Date/Time: 06/08/2022 14:56:28 ReadingLocation: [facility] B[facility] Body Reading Room VITAMIN [id number] 14:03:03 Test Item Value Reference Range Interpretation Comments VITAMIN B12 (BEAKER) (test code = > pg/mL 213-816 H 774) Housesmith ID - MMCOMPREHENSIVE METABOLIC [id number] 13:41:11 Test Item Value Reference Range Interpretation [...] not appl icable for dialysis patien ts Housesmith ID - MMRAD, CHEST, 1 VIEW, NON [id number] 13:40:00Reason for exam:- >CVC placementShould this be performed at the bedside?->Yes [facility] : 1985 Sex: FFINAL REPORT Chest, one view History: Placement of central venous catheter Comparison: none Findings:Clear lungs. Normal size heart. No pleural effusion or pneumothorax. A rightinternal jugular central venous catheter terminates within the superior vena cava. Impression:Satisfactory position of right internal jugular central venous catheter. Signed: Arturo Dumont Verified Date/Time: 06/08/2022 13:40:21 [id number] 13:37:09 Test Item Value Reference Range Interpretation Comments FERRITIN (BEAKER) (test code = 273.35 ng/mL 5.00-275.00 361) Housesmith ID - [id number] 13:11:23 Test Item Value Reference Range Interpretation [...] % 20-55 H (test code = 2590) Housesmith ID - RMFKEIVLKQMZ9870-98-49 13:08:43 Test Item Value Reference Range Interpretation Comments PHOSPHORUS (BEAKER) (test code = 3.8 mg/dL 2.3-4.7 604) Housesmith ID - PGRLOIOOGCK5984-62-22 13:08:42 Test Item Value Reference Range Interpretation Comments MAGNESIUM (BEAKER) (test code = 2.6 mg/dL 1.6-2.6 627) Housesmith ID - [id number] 13:02:42 Test Item Value Reference Range Interpretation Comments PARTIAL THROMBOPLASTIN TIME 31.7 seconds 22.5-36.0 (BEAKER) (test code = 760) PROTHROMBIN TIME/[id number] 13:02:02 Test Item Value Reference Range Interpretation [...] mechanical heart valves.CBC W/PLT COUNT & AUTO KAKUCIADGHCN1204-84-05 12:49:19 Test Item Value Reference Range Interpretation [...] 0.00-1.00 PERCENT (BEAKER) (test code = 2801) GVIZ-[id number] 12:31:06 Test Item Value Reference Range Interpretation Comments POC-POTASSIUM 3.6 meq/L 3.6-5.5 : TESTED AT [place] [address] ([facility]) (test code [facility], = 1540) [address]: Housesmith/Techni skip ID = [id number] for ANGELINA MOURA BDBC-[id number] 12:31:06 Test Item Value Reference Range Interpretation Comments POC-HEMOGLOBIN 6.8 g/dL 12.0-15.0 L : TESTED AT [place] [address] ([facility]) (test code = [facility], 1856) [address]: Housesmith/Techni skip ID = [id number] for ZENYANGELINA ZTAR-EVBVWWZNGV6621-33-01 12:31:06 Test Item Value Reference Range Interpretation Comments POC-HEMATOCRIT 20 % 36-45 L : Housesmith/Te chnician ID = ([facility]) (test code = 798885 for ANGELINA MOURA 185) [id number]-[id number] 12:31:06 Test Item Value Reference Range Interpretation Comments POC-GLUCOSE ([facility]) 105 mg/dL 70-110 : TESTE D AT [place] [address] (test code = 1855) [place] [facility], [address]: Housesmith/Techni skip ID = [id number] for ANGELINA MOURA POCT-BLOOD GASES, [id number] 12:31:00 Test Item Value Reference Range Interpretation [...] -3.0 meq/L -2.0-3.0 L : TESTED AT [facility] [address] ARTERIAL-POC [facility], (BEAKER) (test [address]: code = 1841) Housesmith/Techni skip ID = [id number] for ANGELINA MOURA JYPP-[id number] 12:31:00 Test Item Value Reference Range Interpretation Comments POC-SODIUM (BEAKER) 132 meq/L 135-148 L : TESTED AT [facility] 6720 (test code = 1542) [place], [address]: Housesmith/Techni skip ID = [id number] for ANGELINA MOURA Culture, [id number] 15:56:00 Test Item Value Reference Range Interpretation Comments Culture, Urine (test code = URC) NF Culture, Urine (test code = URC1) 50 MSF Hlanzthof1979-15-36 19:50:00 Test Item Value Reference Range Interpretation [...] EGFRCR) Estimated GFR: Greater than 90 mL/min/1.73 n3Cxjouawg eGFR is based on the CK D-EPI [...] code = 14 U/L 8-55 N ALT) [id number] 19:50:00 Test Item Value Reference Range Interpretation Comments Chemistry (test code = LIP) 39 U/L 8-78 N Baaiuyuxa9597-16-22 19:46:00 Test Item Value Reference Range Interpretation Comments Chemistry (test Less than < 0.028 code = TROPI-R) 0.010 ng/mL Reference Ra nge 0.00 - 0.028 ng /mL Negative 0.029 - 0.29 ng/mL Indetermi vincent Greater or Equa l to 0.3 ng/mL Stron gly suggests [place] Chemistry - [id number] 19:43:00 Test Item Value Reference Range Interpretation Comments Chemistry - Lactate (test code = 0.6 mmol/L 0.5-2.2 N LACTSEP-T) Chemistry - Ntchapob8663-15-56 19:27:00 Test Item Value Reference Range Interpretation Comments Chemistry - Specials Negative NEGATIVE Method of sensitivity- (test code = BHCGST) Demarstorm thomasant: results should be repea erna after 48-72 hrs Positive: resul ts may be detected as early as 1 day after the first missed me nses. Yegctfbkww3324-84-78 19:22:00 Test Item Value Reference Range Interpretation [...] code = BASO#) 0.0 thou/uL 0.0-0.2 N Tgyslamita9411-69-17 19:16:00 Test Item Value Reference Range Interpretation Comments Urinalysis (test code = [place] Yellow A UACLR) Urinalysis (test code = [...] Seen A UABAC) Urine Source: Urine VoidedType [id number] 09:43:00 Test Item Value Reference Range Interpretation [...] 7 days from now? NOPacked Cells - Rbtktmhpwsee0457-18-56 09:43:[id number] OP [facility] 03/09/22 0342 Mbentdhceh4379-14-46 05:58:00 Test Item Value Reference Range Interpretation [...] Urine Clean CatchUrine specific gravity measurement by kxvwqyvkeogvm9060-22-12 05:17:00 Test Item Value Reference Range Interpretation Comments Urine Specific G[place]mith (test code = 1.054 1.002-1.036 5810-7) [facility] pH measurement by automated test puvya4195-03-23 05:17:00 Test Item Value Reference Range Interpretation Comments Urine pH (test code = 14124-3) 6.5 5.0-9.0 [facility] leukocyte esterase detection by automated test oagav0787-18-50 05:17:00 Test Item Value Reference Range Interpretation Comments Urine Leukocyte Esterase (test code 75 Antionette/uL Negative = 52027-5) [facility] in Urine by Test woicl6675-20-55 05:17:00 Test Item Value Reference Range Interpretation Comments Urine Nitrite (test code = 5802-4) Negative Negative [facility] protein measurement by automated test strip (mass/volume)2022-03-09 05:17:00 Test Item Value Reference Range Interpretation Comments Urine Protein (test code = Negative mg/dL Neg-Trace 07131-3) [facility] glucose measurement by test strip (mass/volume) 2022-03-09 05:17:00 Test Item Value Reference Range Interpretation Comments Urine Glucose (UA) (test code = Normal mg/dL Negative 5792-7) [facility] ketones measurement by automated test strip (mass/volume)2022-03-09 05:17:00 Test Item Value Reference Range Interpretation Comments Urine Ketones (test code = Negative mg/dL Negative 74904-0) [facility] urobilinogen measurement (units/volume) by test fiuat1880-74-97 05:17:00 Test Item Value Reference Range Interpretation Comments Urine Urobilinogen (test code = Normal mg/dL Less than 2 40686-6) [facility] total bilirubin detection by automated test tljdn8824-88-75 05:17:00 Test Item Value Reference Range Interpretation Comments Urine Bilirubin (test code = Negative Negative 10760-4) [facility] hemoglobin detection by automated test strip 2022-03-09 05:17:00 Test Item Value Reference Range Interpretation Comments Urine Blood (test code = 47460-1) 3+ Negative [facility] erythrocytes detection by automated method 2022-03-09 05:17:00 Test Item Value Reference Range Interpretation Comments Urine RBC (test code = 60229-1) 4-6 HPF 0-3 [facility] leukocytes detection by automated method 2022-03-09 05:17:00 Test Item Value Reference Range Interpretation Comments Urine WBC (test code = 69191-3) 0-3 HPF 0-3 [facility] cells.squamous [#/area] in Urine sediment by Automated qqgbi0236-53-57 05:17:00 Test Item Value Reference Range Interpretation Comments Urine Squamous Epithelial Cells (test 0-3 HPF 0-3 code = 25658-8) [facility] bacteria detection by automated gpjlmy7747-28-69 05:17:00 Test Item Value Reference Range Interpretation Comments Urine Bacteria (test code = None Seen HPF None Seen 38576-8) [facility] by Fiss6848-24-30 05:17:00 Test Item Value Reference Range Interpretation Comments Urine Color (test code = Light-Yellow Yellow 69851-5) [facility] clarity by refractometry nyxipsarm1588-16-52 05:17:00 Test Item Value Reference Range Interpretation Comments Urine Clarity (test code = 27378-1) Clear [facility] 03:39:00 Test Item Value Reference Range Interpretation Comments Chemistry (test Less than < 0.028 code = TROPI-R) 0.010 ng/mL Reference Ra nge 0.00 - 0.028 ng /mL Negative 0.029 - 0.29 ng/mL Indetermi vincent Greater or Equa l to 0.3 ng/mL Stron gly suggests [place] Chemistry - Ecmiokud6809-36-19 01:51:00 Test Item Value Reference Range Interpretation Comments Chemistry - Specials Negative NEGATIVE Method of sensitivity- (test code = BHCGST) Indeter minant: results should be repea erna after 48-72 hrs Positive: resul ts may be detected as early as 1 day after the first missed me nses. Clvngorykgm8753-12-41 01:01:00 Test Item Value Reference Range Interpretation Comments Coagulation (test 14.1 sec 12.0-14.7 N code = PT-T) Coagulation (test 1.1 ATTE NTION: READ code = INR) CAREFULLY-- The recommended the rapeutic ranges for oral anticoagulanttr eatments are: ------ Low Inte nsity: 1.5 - 2.0 Moderate In tensity: 2.0 - 3.0 High Inte nsity (1): 2.5 - 3.5 High Inte nsity (2): 3.0 - 4.0 CRITICAL: > 6.0 Anticoagulant? NONEMedical Necessity SUSPECT COAGULOPATHYAnticoagulant? NONEMedical Necessity: SUSP WTXZIwstdsvlwig6201-81-14 01:01:00 Test Item Value Reference Range Interpretation Comments Coagulation (test code = PTT) 32.5 sec 22.9-36.1 N Anticoagulant? NONEMedical Necessity SUSPECT COAGULOPATHYAnticoagulant? NONEMedical Necessity: SUSP TDNAQffldfmjpoq2749-08-58 01:01:00 Test Item Value Reference Range Interpretation Comments Coagulation (test 0.27 *mcg/mL 0.27-0.43 N * Referenc e Range code = DDIMTT) Units: mcg/mL of fibrinogen equi valent units(FEU)Based upon a retrospective study of [facility] in July 2005, a result of"Less than 0. 44 mcg/mL FEU" is predictive of t he absence ofa DVT or PE. Anticoagulant? NONEMedical Necessity SUSPECT COAGULOPATHYAnticoagulant? NONEMedical Necessity: SUSP COAGChemistry - Ldwmkrt9636-13-66 00:53:00 Test Item Value Reference Range Interpretation Comments Chemistry - Lactate (test code = 0.7 mmol/L 0.5-2.2 N LACTSEP-T) Retype Verify-Blood Type [id number] 00:36:00 Test Item Value Reference Range Interpretation Comments Blood Type Rh (test code = BT) A POSITIVE Serum or plasma lactate measurement (moles/volume)2022-03-09 00:26:00 Test Item Value Reference Range Interpretation Comments Lactic Acid Level (test code = 0.7 mmol/L 0.5-2.2 2524-7) [facility] in platelet poor plasma by coagulation azudm8063-43-25 00:26:00 Test Item Value Reference Range Interpretation Comments Prothrombin Time (test code = 14.1 sec 12.0-14.7 5902-2) [facility] in Platelet poor plasma by Coagulation assay 2022-03-09 00:26:00 Test Item Value Reference Range Interpretation Comments INR International Normalized Ratio 1.1 (test code = 6301-6) [facility] HospitalActivated partial thromboplastin time (aPTT) in platelet poor plasma by coagulation [id number] 00:26:00 Test Item Value Reference Range Interpretation Comments Activated Partial Thromboplast Time 32.5 sec 22.9-36.1 (test code = 21833-5) [facility] HospitalFibrin D-dimer FEU measurement in platelet poor plasma (mass/volume)2022-03-09 00:26:00 Test Item Value Reference Range Interpretation Comments D-Dimer (test code = 51794-5) 0.27 *mcg/mL 0.27-0.43 [facility]2022-12-31 00:01:00 Test Item Value Reference Range Interpretation Comments Chemistry (test Less than < 0.028 code = TROPI-R) 0.010 ng/mL Reference Ra nge 0.00 - 0.028 ng /mL Negative 0.029 - 0.29 ng/mL Indetermi vincent Greater or Equa l to 0.3 ng/mL Stron gly suggests [place] Sexdxmomh4083-54-98 23:59:00 Test Item Value Reference Range Interpretation [...] EGFRCR) Estimated GFR: Greater than 90 mL/min/1.73 h7Aaogzemj eGFR is based on the CK D-EPI [...] code = 7 U/L 8-55 L ALT) Gxajsohmv2824-13-98 23:59:00 Test Item Value Reference Range Interpretation Comments Chemistry (test code = LIP) 42 U/L 8-78 N Telsjrpybv0415-34-13 23:36:00 Test Item Value Reference Range Interpretation [...] N Hematology (test code = NEUT#) 4.7 ou/uL 1.40-6.50 N Hematology (test code = LYMPH#) 2.4 thou/uL 1.20-3.40 N Hematology (test code = MONO#) 0.4 thou/uL 0.11-0.59 N Hematology (test code = EOS#) 0.2 thou/uL 0.0-0.7 N Hematology (test code = BASO#) 0.0 thou/uL 0.0-0.2 N Serum or plasma sodium measurement (moles/volume)2022-03-08 23:16:00 Test Item Value Reference Range Interpretation Comments Sodium Level (test code = 2951-2) 140 mmol/L 136-145 [facility] or plasma potassium measurement (moles/volume) 2022-03-08 23:16:00 Test Item Value Reference Range Interpretation Comments Potassium Level (test code = 3.7 mmol/L 3.5-5.1 2823-3) [facility] or plasma chloride measurement (moles/volume) 2022-03-08 23:16:00 Test Item Value Reference Range Interpretation Comments Chloride Level (test code = 105 mmol/L 98-107 5-0) [facility] or plasma carbon dioxide, total measurement (moles/volume)2022-03-08 23:16:00 Test Item Value Reference Range Interpretation Comments Carbon Dioxide Level (test code = 27 mmol/L -2027-) [facility] or plasma anion [id number] 23:16:00 Test Item Value Reference Range Interpretation Comments Anion Gap (test code = 35429-2) 12 mmol/L 10-20 [facility] or plasma urea nitrogen measurement (mass/volume)2022-03-08 23:16:00 Test Item Value Reference Range Interpretation Comments Blood Urea Nitrogen (test code = 13 mg/dL 7.0-18.7 3094-0) [facility] or plasma creatinine measurement (mass/volume) 2022-03-08 23:16:00 Test Item Value Reference Range Interpretation Comments Creatinine (test code = 2160-0) 0.67 mg/dL 0.6-1.1 [facility]/1.73 sq M.predicted [Volume Rate/Area] in Serum, Plasma [id number] 23:16:00 Test Item Value Reference Range Interpretation Comments Estimated GFR (CKD-EPI 2020) (test code 115 = 69317-3) [facility] HospitalGl[facility] [Mass/volume] in Serum or Lzroyl2851-75-24 23:16:00 Test Item Value Reference Range Interpretation Comments Glucose Level (test code = 2345-7) 107 mg/dL 70-105 [facility] or plasma calcium measurement (mass/volume) 2022-03-08 23:16:00 Test Item Value Reference Range Interpretation Comments Calcium Level (test code = 26114-6) 8.5 mg/dL 7.8-10.44 [facility] or plasma total bilirubin measurement (mass/volume)2022-03-08 23:16:00 Test Item Value Reference Range Interpretation Comments Total Bilirubin (test code = 0.2 mg/dL 0.2-1.2 2) [facility] or plasma protein measurement (mass/volume) 2022-03-08 23:16:00 Test Item Value Reference Range Interpretation Comments Serum Total Protein (test code = 6.0 g/dL 6.0-8.3 2885-2) [facility] or plasma albumin measurement by bromocresol green (BCG) dye binding method ([id number] 23:16:00 Test Item Value Reference Range Interpretation Comments Albumin (test code = 49855-4) 3.6 g/dL 3.5-5.0 [facility] Serum by calculation 2022-03-08 23:16:00 Test Item Value Reference Range Interpretation Comments Globulin (test code = 87743-7) 2.4 g/dL 2.4-3.5 [facility]Mass Ratio] in Serum or Plasma 2022-03-08 23:16:00 Test Item Value Reference Range Interpretation Comments Albumin/Globulin Ratio (test code = 1.5 g/dL 1.2-2.2 1759-0) [facility] in Serum or Wzlnnm3877-21-28 23:16:00 Test Item Value Reference Range Interpretation Comments Alkaline Phosphatase (test code = 58 U/L 40-110 6768-6) [facility] or plasma aspartate aminotransferase measurement (enzymatic activity/volume)2022-03-08 23:16:00 Test Item Value Reference Range Interpretation Comments Aspartate Amino Transf (AST/SGOT) (test 8 U/L 5-34 code = 1920-8) [facility] or plasma alanine aminotransferase measurement without P-5'-P (enzymatic pfeeci5112-61-28 23:16:00 Test Item Value Reference Range Interpretation Comments Alanine Aminotransferase (ALT/SGPT) 7 U/L 8-55 (test code = 1744-2) [facility] or plasma lipase measurement (enzymatic activity/volume)2022-03-08 23:16:00 Test Item Value Reference Range Interpretation Comments Lipase (test code = 3040-3) 42 U/L 8-78 [facility] human chorionic gonadotropin detection for telybbzay0255-94-52 23:16:00 Test Item Value Reference Range Interpretation Comments Serum Test, Qualitative Negative NEGATIVE (test code = 2118-8) [facility] [#[facility] Blood by Automated count 2022-03-08 23:16:00 Test Item Value Reference Range Interpretation Comments White Blood Count (test code = 7.8 10x3/uL 4.8-10.8 6690-2) [facility] erythrocytes automated count (number/volume) 2022-03-08 23:16:00 Test Item Value Reference Range Interpretation Comments Red Blood Count (test code = 2.42 mill/uL 4.20-5.40 789-8) [facility] hemoglobin measurement (mass/volume)2022-03-08 23:16:00 Test Item Value Reference Range Interpretation Comments Hemoglobin (test code = 718-7) 8.3 g/dL 12.0-16.0 [facility] mean corpuscular volume 2022-03-08 23:16:00 Test Item Value Reference Range Interpretation Comments Mean Corpuscular Volume (test code = 94.0 fl 78.0-98.0 787-2) [facility] mean corpuscular hemoglobin (mass per erythrocyte)2022-03-08 23:16:00 Test Item Value Reference Range Interpretation Comments Mean Corpuscular Hemoglobin (test 34.2 pg 27.0-31.0 code = 785-6) [facility] erythrocyte mean corpuscular hemoglobin concentration measurement (mass/epg4538-83-46 23:16:00 Test Item Value Reference Range Interpretation Comments Mean Corpuscular Hemoglobin Concent 36.4 g/dL 32.0-36.0 (test code = 786-4) [facility] 2022-03-08 23:16:00 Test Item Value Reference Range Interpretation Comments Red Cell Distribution Width (test code 13.8 % 11.5-14.5 = 788-0) [facility] blood platelet count (count/volume) 2022-03-08 23:16:00 Test Item Value Reference Range Interpretation Comments Platelet Count (test code = 237 10x3/uL 130-400 777-3) [facility] blood platelet mean wdvxoa5344-02-54 23:16:00 Test Item Value Reference Range Interpretation Comments Mean Platelet Volume (test code = 7.2 fL 7.4-10.4 70129-4) [facility] blood neutrophils/100 inxguyuzge9802-67-20 23:16:00 Test Item Value Reference Range Interpretation Comments Neutrophils % (test code = 770-8) 60.3 % 42.0-75.0 [facility] in Blood by Automated count 2022-03-08 23:16:00 Test Item Value Reference Range Interpretation Comments Lymphocytes % (test code = 736-9) 30.8 % 21.0-51.0 [facility] blood monocytes/100 cionxjdjov7971-25-58 23:16:00 Test Item Value Reference Range Interpretation Comments Monocytes % (test code = 5905-5) 5.5 % 0.0-10.0 [facility] szadobkjki7757-44-44 23:16:00 Test Item Value Reference Range Interpretation Comments Eosinophils % (test code = 713-8) 3.2 % 0.0-10.0 [facility]100 vwxfoqyaph4313-51-05 23:16:00 Test Item Value Reference Range Interpretation Comments Basophils % (test code = 706-2) 0.2 % 0.0-1.0 [facility] neutrophils automated count (number/volume) 2022-03-08 23:16:00 Test Item Value Reference Range Interpretation Comments Neutrophils # (test code = 751-8) 4.7 thou/uL 1.40-6.50 [facility] [#[facility] Blood by Automated count 2022-03-08 23:16:00 Test Item Value Reference Range Interpretation Comments Lymphocytes # (test code = 731-0) 2.4 thou/uL 1.20-3.40 [facility] monocytes automated count (number/volume) 2022-03-08 23:16:00 Test Item Value Reference Range Interpretation Comments Monocytes # (test code = 742-7) 0.4 thou/uL 0.11-0.59 [facility] eosinophils automated count (count/volume) 2022-03-08 23:16:00 Test Item Value Reference Range Interpretation Comments Eosinophils # (test code = 711-2) 0.2 thou/uL 0.0-0.7 [facility] basophil count (count/volume) 2022-03-08 23:16:00 Test Item Value Reference Range Interpretation Comments Basophils # (test code = 704-7) 0.0 thou/uL 0.0-0.2 [facility] Qopg9487-52-07 16:47:26 Test Item Value Reference Range Interpretation Comments Case Report (test code Surgical Pathology = 104) Report Case: [id number] Authorizing Provider: Nathaniel Dooley MD Collected: 02/26/2022 04:38 PM Ordering Location: [address] Received: 02/27/2022 07:57 AM Service Pathologist: Gene Carlton MD Specimen: Cervix DIAGNOSIS (test code = [id number] 3220) FuZzEwMzNcZnRuYmpcdWMx IHtccnRmMVxlcGljOTYwMl qzscPjDSKiqWSdI4Gsldze DDjeNI1cKM9zhDmcoFOpzU JzDEDsBqMkb0aem041eIAn s7nrDHMAeqhumLd4lVkjF5 5sq5Y6EkyxM73ygXYoIPY6 SKCiJEUqfNFnAHZaNBX4OO ZroUSnG7geCYMnZC4xhyhk USxwDNeaAHSfrWV6SIRfgF RlD2QoHBShWYeaAXNvlkg1 KoEdSl5ibAFeeTtvQBimZU CaUICcKGacOYDrNrYcH0WD RhoXHMRUZVFCBXOLWR1SB8 a1YGAiiey6KJCtCQWGKAOQ YuZVH1eCUWDSFnDNAGWJKY NgQ7GwW5HSZL0NSDJfR3EU ZUFFMFXUYI0BPUQnYBDoUQ Bsg47qTP12OVcuIRH9d0cf dGYxXHNzdGUxODAwMFxhbn NpXGRlZmxhbmcxMDMzXGZ0 bmJqXHVjMVxkZWZmMHtcZm 0xcYEguZxqWqOyPRQnh5um gpCKayrabVg0n3fyYHSlOw F1aLOnVKouQ9svikAxlFMj IOHuECe9kP81ZFEfzQ9kyA OvPYfzmqNkTwH2FLsoZMGo VxH5AIQkrWYlWRPkG2xtXX QwXGdyZWVuMFxibHVlMCA7 yFvpa7H1hNIqoQRlwWlpPj PkTcFjJmLCo3OdOEc6hGwo M2VeQOCxCgM3zCGmIYLmVY jmJYBlDJQbcvI3sT47NYke bsX6uWJgh6Iqv38fi655sQ 8bpYHdTIU6HAUsZMDohSTq GBMzWIU5DXBbrKBaU5vnDD NoIA7khzkaAMgmWHqoZUGw qBO9YLIqhERgC4RhYHLgUO toTWXntkn3RwBwWp8yxOAp xUwxQFalg1yov1wekPDuZx i6METcBoYlQozpMLxiv5Eh w1hhVIWshr8oPIV3oKSheW eyu9A9gQUvADOmpNBcMPBx SH5urLSwPTWskS0grnohUQ BnYnJkcmhlYWRccGdicmRy Lb4wdIczMPK1NMlaP1qafP 3iYfI0FWczH7islN6cNSd5 UVqtHSPknPX4dwQ3WEHmkJ NiW0KolU9dUECrCG9rfwc3 r1rbJJU2KAmfXBIxCnJ2sw F5EHSofEVqEXXbgQivFWzq k174JHN4GsQrFAItd5QxA1 RtiHfqB03gfEmrG90uHYYa uAlucI2rwSzvlZ7mOjEdWa FyGUhczOglZB0jLJFiZ5rr tNMfGENmMRXhE1nsLnYwxH 2sdZulDSzoeqBbTPJdZox1 TWBtlMNyDKVyMxn0HDFdWS EbA70sqiabKMK1nK9ks9uy b2VgVPjdUPF0CRTei45hPC gakcD1TPlfFh49QIjfDFT2 CZomOEV7sC== COMMENT (test code = r4tkgEOrKVUytKD3OrRnBD 3145) Kiv3ljk1GfoDJojKKpIDdj nINnrwVjsq30mTN6dX37QR 4jTQYzNbK9UJSbcfD0Ewq6 TNCtITObtAKjC075m4ymm8 ohakOwbXI0zLxdKEKzflvp KxT5TSijFBGylrmtUOi0SK pcCYBgkDM5WKNqdVFrG3Bm ZNYyFR6pzxv2DQU5WHyvZN GeHlS4HZHhsWZkJZBdnYfm GGzgm986GCL8PpDoCVKqfw KqbHrreS4tLzTePFNZbUNc zIV6oRMdxQkpIWamk9Kzzr qix4RjN2IjpapyMPggqAMr hrQwexXgz9XdEI0xMGjpER Y4lB9uUYOrx3naHGBqM1Ym SP9lM1Kkj1goGVWuh8yqsr TaLEA5jYFuNNUfafRtmfYd HJZ8zUJbaKDjrHIkcFBnlX Yqs6QicGU7gyLplmEtnBX8 BAHwc0KzsE39YCHph56vGY Bhcn0= CPT Code(s) (test code w4hzwWNxOVAiuHE7UoOdBA = 3357) Wbr8qwp3TudDXvlLXgMFsh wRQcigTtub18mFX5cF01EV 4wCUArLwI2AAQklgN0Wvi8 WCYwKSQluIErV887o9zqi0 xakyIwgMU9oLibRXAzpubh JaM6MVriGUKyujfnNJe1LC gvPTWabDP2KYJmvAQbZ2Kn QCNjSE4skfa3QTK1TUchLD TyQuG4DKSurRNdLPDyqOlc DTfpm836UGX9JzWuCDFkle GpgJpjmD8sFbPuGCT5NMAu NVxwYXJ9 CLINICAL HISTORY (test q5yhyASzWPTdeAS0HsInUY code = 3356) Iyl9kgw2FwdKNilUVvMGcv tOWzxtCqjr53ePZ1nV63ND 6zTROnHaG0YWTchvT5Jtu5 XXIoLNYofYHmB796t9bxl4 ssqtZgwCA9cVywXJClrizx VmY4MFicOSTpilvxXJq1OC ppPGQzjHF0WBJzuCDcB2Gk RXSsCQ9qcuk9ZCF1TRzeTV AjZvW0DXKmrHDmPRRawDxk VFiro851GMY4GnYyZADixj UytUpcoF0tYoIuVPShAQW0 Fd4qEF4jTS1unEWhnjkshe IfhgJhuoLdbxMjqaN4SLJy u2o5wUATZGr1TG8uVNtTDA NhreSaQxzduL2enFxhlJUp GD59cR6jmNMzt2CrvQVgEP cwzOhbfcSwupDrYRgurA2t lClvVE4bXbJ4ARtokaMjCZ OcOUGilF1mVOZwh1vqujSd YmRvbWluYWwgcGFpbiwgU0 1DAMXbmZxxaXrwXHCpXT7k g4NopaMkEZSmWBVrQ3UiHQ Kjk5UkQNT6esRoRTCuLUJ8 hMD9v09uuHfbCVPwFC8sRZ JpAOpcCUMqEXdqQY5dQYVc qlKzD2AzSA4od8Qpo0r+b2 6eiR2gT1seI0ldMKS2 GROSS DESCRIPTION (test v0bufBBaHBMumPCZYJVoT0 code = 4696758386) ubofUaWOKhbPLfR8Sqzhqq CHemSF4fHH6oxWagbUYbwL VvAB7JALGlEbAhOVWgfLCy xcHtOqXfNROrfAUdlCV2FQ DzVL1cueowVKjePEevZVUs hdK5AUQypPLyP4HoXATtFS 2apnapHKS2GOxifC1psuFD AzmqMz9szSVkmJpoTaHvDc NoYXJzZXQwXGZuaWwgQXJp PZe9tY3EFbfmCIY7ZWQYVi xfQXWvUF6Kb6dxIZNrqNWy IHI8CDkltBRpMNEnGDWqHJ y6WNFkYQolaWMfYO5ywMyf OaplvAiqq2GpmESfQJudXT RrMZFkPTyyUXPwAF8KEyKm BYE0ADt9TETkDDp6QRe2WW 2DYhOyMJOfITB5EIY8GzIr UYu9XSzdKO7XLJX8ZCC3IW naLsL1GFO1QbGdZESuArVp XGYgQXJpYWwgXFxmbCBcXG 6tnGcaeLLrbwLHTtKJEAQ2 aXguXHBhciANClxlcGljTm VzdERvYzEgDQpcbHRycGFy XGxpbjBccmluMCANClxsdH MjmAgblhPuOZCzR7UakbYq OSchTUBfxr7pfTmrUCelLm LsLQFga2g7xJV7dJTtkHI6 lTRaoTmyNwMlFH8cfWGhBN 1lVIlsYAcwfjVcl1PdYF64 bWJlciBhbmQgImNlcnZpeC IgaXMgYSAwLjUgeCAwLjMg aWHaWbAuU81doDItOYjxWC pqv11nxNB3aJGdiEAkDeMi H72sguSwYQFxjCzgPEX2gQ HoACVze01cXST7Ad3kuTXl PULuxdM5w6MbEEvlPPJrDm vwMMQkPNzmvSNpCL3JO3ej jNGgJLCWstH1nbhvKAcIFB SVQGQpYSGRMEqthBayoU0d LXbkmG6rLP5JMLDtNHaqSU VpkCUMJIJ8KF5mGKlyeMBm qmqaVVVyY0ZkN9DvxhGumX IwIPVpvmGqx2aiYPL5GPFn zWJzoBOpUcBkDlcxNVP1VE uic6pyWRC0VDKnsOMsrIIa GTfpVsJsCewtMFOhE9WgE3 EtcvY5PMz7 MICROSCOPIC DESCRIPTION h7pquXGxCNLlxBE9AdSnYY (test code = 3371) Ekw8rkl9UddWSruPSfYHvc jVQklqCxhf37dNQ3pX37LK 2zHAVxCiZ4SOWopsS3Blm3 XROtXQWbbFRzR438o0dwv6 toitEyzOW9pXuoYRTajyez IhL8TMctBLTjwngcNXm6KT hpRUTocYK2UCQgjTKxD0Hg ODMuEF2kjug8TKU9AFrsQC NqIdP4BCSknJYuZHGbkIfb FRsra362MES4HpItQJZiag RhvPtowY9nTbHaZORSOKHz t9VsVPYeUCPjuz8= SPECIAL STUDIES (test g5oclNNcLQJhw3dfYDMpsT code = 3376) FuZzEwMzNcZnRuYmpcdWMx CBybpkStFQixm2McZ6QtDy AwMFxhbnNpXGRlZmxhbmcx GGFlUZE4ikEcBXGiVZcpTB TdAMsbVu1xnSQymZyvLjIf QJIwl8zagiKKceeioZw5i6 emCSOdCpN2zFEpLIdzJ8zu qbQqjCWmL4DqrGKslQo4z7 amAkQcWtF7gBArRJvgY4lr osKdiIFeTFEnUVh6zY36GP VptT3jcBGxKQxfbvTmDdK4 RFfeXCCzThY2XVOctVZlTZ GzD2hgKEExNSsgCEMkBOdo jHIgVZQ2hEcpu6J0aQMeaJ FkoZqkQyVpTtIyVmVYr3Ru RZf4fFirC5CwYRBiPiX2nD QgUGFyYWdyYXBoIEZvbnQ7 tFtuhxRug84rtZFrPHVkRH FdLbFtnJgcGWOqOZEBu6Au oIbiRGH4zGu6bAoiChofRI Z6Ziq6DB7emn34bqc8qEim PNOoguyfKwE9UAvgXHHjtz qsRDh4FEbpOVQavED9NIIy sJUwX8AbPGPiYV1yzjx7XV I8ABqqWPUtHeK3BEAnpSJk YWBnuGpnJXpmd176XPF7Yq TbIS8aS5Ysz6N4lL2etJNo EOUvjIQcAoUlCBYiqb9pzX RtLQdxh7IoBXH9uhM7rOXg kPOqQSYeBM32Uvcel0GoJg bav7GeS73etGJ0RBqdq0ku BA9mPzI1sdIqPBuid8fydK 6xStF8XAoxCY2dIT0oSRNj tR5jkrbiGRGoGwVpnocfTW ZeuGlxgyKiIx5nlMvwSDK7 SQmeQ1uucD9mNiM6YGyuA0 aruR9oDEq9VWlskTO1YGHj xI9pWK8goaihw9mhGQkgDC cnZJEvcuQ4vuO2QAJnnTTb F5FhtB8fRYHcPG2zhxowz4 dlFNS8KBzvHQKiSHX5DlCh EKLon0Syhhk0YhCxn0AuqO LaRWaqN38hr561EWMoazWv N6pxuFUikcyqbVXbmmgnYE hewsP0VSYzHUOjGZvvFJRw XGZzMjJcbGFuZzEwMzNcaG ljaFxmMVxkYmNoXGYxXGxv Y7zdCtDiC5LhKOPnArGsWS iqCSmqbTBulWYuuSC7qB4y WA0hPQJccJYiT0IeRPUujz ZviFQmDOJ0eFYfrMOgEC4z IXfzoWNjh9tzm2CnK5wsvA vshXE5KB2wFRZbTGHdHSxu l2WiyW2pDlgkgGFqldpqIK xmczIyXGxhbmcxMDMzXGhp F1kqJzJzZJGwhDmvRGnow5 NoXGYxXGNmMlxmczIyXGx0 cmNoXHBhclxwYXJccGxhaW 7nXiWoXaUfTzjdVQ2pZRPz H4tcnJEuUTIaOPGkP4rlFn AedR2kdKflRFjyJyAvXlSg QyXTm680sb2vFLSlfNJudd LRrHLonP3zXQejOGwbTDsv yIOlJTcht9aoYMTpl3x4uG FkHRDctyFst2abXYrlctQi TZTboKVtpUYwKAWmx06rGC otaJbhkUfwFDTsm3LfaGke t9OgXaLwANhpf0TaW25utJ JvbCBzbGlkZXMgcnVuIGFs r32ua7ztHKIhNwO0gISbzS Y3xUUvrJHqr7MfuUrdLUPk l1dhRHXnzh0yiksfgKCww9 OnmO0xaunmSBypsWStzwKg BVOum3f7eCBsDTJbHZBgZZ gyrVm5BKFka136kk0gmcE7 zBTkFCD2GDxnWEYrOPXzah UgZXZhbHVhdGVkXHBsYWlu XGYxXGZzMjJcbGFuZzEwMz NcaGljaFxmMVxkYmNoXGYx RHmkW4kwOmOiN8RgPZOjOw ZjmRXlJ9aokYSdEUMbRKhc XGYxXGZzMjJcbGFuZzEwMz NcaGljaFxmMVxkYmNoXGYx EZwwF4vbEvBuG3EhHWIuOk IgIFxwbGFpblxmMVxmczIy XWegybdxUNMaEZpvO9uuCv UmNLCkeIirLJtpp0PrPNDn IYJiYfaxoeCzKSk5zhNxSG BhclxwbGFpblxmMVxmczIy EGmhgokqMCCnFFhbP4gbEw MjCVMjcWumYKjtd0HbXTWj XGNmMlxmczIyIEltbXVub2 ron1GiF6ldkNohkHP8GETi X3qupVNgmAX2QTU2cH7mED cjamNvWZUbf1KiMYNxIOEz DvA9jN0wRTV1BbFWdKauXD BsYWluXGYxXGZzMjJcbGFu ZzEwMzNcaGljaFxmMVxkYm PdUTTwOCbmJ9myWhXyF4Qv YVMoPbZrlJbdQNuuFGl3Mv xwbGFpblxmMVxmczIyXGxh lqasJKNnEYmeY3ofOwMyAK DkeQovXDbil5OvVJVnLRIu MlxmczIyIHMgTWVkaWNhbC ECPY72FNTpNMEgqFkmoN5n eDIPTHHnazD3k6L3UPtrYH MzPTq7IBjgdtQyYPVniE8c SZXpED5jDPm4arBvMLUdp7 EpGV2bFEEkvVAoXQM6LNLx e1BcM3Awk7YoKCYeDENion 0pvaSeQpRElIZbEUSnbz72 TSAzDF6cO9ncGLHvFRBcib JkxPHhh2RvIBSfzNF3uPHk VU4AQdNNv85vRWZdAGFAnx XiSXPutWeqsMQ1wgS9tV8p LiBUaGUgRkRBIGhhcyBkZX Fxyz4mgaDzEDKjHWLio7Cx eLCxvJJnmmIeZ0Joo8AhGE Lefl76VFrknAAomh00NK2r E6Rce7AcdL4sBPupNZBke4 AjjJTxxFFbLAMye5JsJ4eg ahuhXCxsnBGcnJ0wVIMcCJ w5EOQsd0AnUXYdk5ZvTjHv qnNpIWKyVYAzWZRynT61KJ T8xBxysYzyqmYiBL8wGYSh tySeZZZgNKWexH7bAEagqh NtSNPwayT0a1C9EManVAZh dsPkBqycDSR4diUmftR9uA ZxV2jxqddkAKreXIKor6Rt fP4wwNQIiIHtc5OujHKvyZ ROyYHvMM8fazWlJM4lTWB6 ODggKENMSUEtODgpIGFzIH A6WLxxKonoZBY1dlGrPIAx l8PdXAumM8dkA62kmUtbyA e2bTLrpBfthIInlOMmSTIb piP6w5D4JWRdj2VidrmkEW BsYWluXGYyXGZzMjJcbGFu ZzEwMzNcaGljaFxmMlxkYm ZxMDNuCGcsJ0wqKpBkOnCy GzvoZSY6lU== [facility] 16:47:26 Test Item Value Reference Range Interpretation Comments Case Report (test code Surgical Pathology = 104) Report Case: [id number] Authorizing Provider: Nathaniel Dooley MD Collected: 02/26/2022 04:38 PM Ordering Location: [address] Received: 02/27/2022 07:57 AM Service Pathologist: Gene Carlton MD Specimen: Cervix DIAGNOSIS (test code = [id number] 3220) FuZzEwMzNcZnRuYmpcdWMx IHtccnRmMVxlcGljOTYwMl wmnrWjSGNfzQQwZ5Hmiqwm ZYlrOE7lEF5gkJmwaHEqtU DdZBPuLxHxi9pjc297xKPr w4bgMNXTrnyubYm1gYwgB3 6hq9H1TzltO06zdSKwDIU6 KCIwODBugYNpNADdHUY5TB XblVLpR8tuSEQlCZ4umnel MEhpYVhvZDGcfPD2JHYavH GrB9WnQAXzIKpvDMEjvlf2 SqHsLp7meXPtoNlfBPdcVA RhZSGrJHsvPKCuIaWrD9FL EksINGJRNKKHJCDIYZ8NZ1 n1EGNmdmd4JAAfMHDZUDIN EzUKE4tTKFBUTaLXSFODCR EjM9VzQ3DEQN7QFPUnZ0AT FDMLDZJHLJ0LNYZoQVUiEB Ifb99cYE85ALreNFZ7j3qd dGYxXHNzdGUxODAwMFxhbn NpXGRlZmxhbmcxMDMzXGZ0 bmJqXHVjMVxkZWZmMHtcZm 5niQVnmRdpIxAbRNUap7ht svTCqtgktGd3v4ejNJQaPz G6iJOcZKgxI3qrzdBnbUPj CNAeEFm5aU75DECfiC2woN JmUXilpfSzEnN8XFfbMGXq YeG8VJSfgJCoKMKzW1ujKX QwXGdyZWVuMFxibHVlMCA7 eGidi7H7hXVdeGKivSdtZc KlMpQzTeXBz3QyHVm8rNyi P7ThMXSpIkU5dWAiRNMrBH jgOVItJQIdtmQ2aN77WOth khN1fTEuz4Fux62uh760gJ 3dzURfACR2BUFaFCBhhUDf FPUrROP2KZSvcQEcH8tqWR OnXV7ltbnyYBjzDCvaNAEa sBM3NOGmyPDxV9BvQMWtAO alVGAlvtv0WgPmJr1yjTCi eKcgCKyws0mfx3nneQCaTu u6YZShZkJcKwvsWXcjq3Oz e5ngBJQven7dRWZ8tSVhjS utn3V8wBRsYELwdCOaQFRr CU8xhBMmIELpwM4hxrauPX BnYnJkcmhlYWRccGdicmRy Lz7jnOhiVCJ0YOnjW4lrmL 9xUxJ0NQezS0hshN3uQCh8 TQpgEFNwdIT5bdZ0JCIibQ SfQ2TiqK1yXSAfIR5kzon1 b0qzVLD0OIsyCBSgNtS7de I6WBPmaSLdGHOowVqkOCxv w254UGW4CmAiDLJoh7ShJ7 BejGmvG37ujRufM40tOSNy aHeoyS9weNoghA5bEqPjYe IqSMaxxRqeCD4bQRTeW1ew hSQvGQPbPDVzW4pvRqRkjN 6pkEyvNLglmmJwHOGjXgu0 ZXXumPTcEHHtXeo0VXGdUQ PqE66pojitDMO6zK7cm6ws r4UmTWufRFT3WVLaq11gEJ ibvrC4HDhoAl65FTrnTZS4 MEyeESK1yD== COMMENT (test code = u2bptWXcBEPyvUE8MeAlPX 6762) Znb7ckj1YjoKZoyMRuTLyn nSYkajBzrn48zMJ3lZ07PH 4hFELfObG3EDFwsdB4Axq0 NWSjJYWbcGGpM683a7npj8 aduoNyvII1uKhcIIXycrun VrU3GOmjTLNkysziOHy9NJ ecFHIcyCW7OYSvpLUnX3Dn GGBmFA8ngsw6JUK7BBcfEI MgMzZ1FPAlmMWdVZQpgGeu TRjtu721HNY6TcWmOLXpvh VorSkbkV5rEeAqISEIgXTu eVQ8cTMemWeoUMrqj2Laxp taq8MaI8FqdjvrSJaerZQq lmVzocOgb1SeSG4yRCpfBY Q0pB8iXBOgi5qbMNCzD8Ec RH8cA4Lbj7otQNWee1vgga EhTXQ8bAXvOLUwwsEhxzBo WTU0eTSnmFUeoHIijSPvvR Lyg1LpfYH2kwRpsgHraXY3 NOHav8BfoU67GMSgq81yLJ Bhcn0= CPT Code(s) (test code k4xgtLPqVZDdtER1AvXxGL = 5913) Czo5yul1ZqkPPooTMoOUrv nZUqqyImmu74rTI0eY70UT 9dOCPpBgH5RRTszaK2Wvk3 RUAaLNKuoOPhT916y1aau1 gmnxQlxHK5nTslPCCvtjnh SjY9MXogZXZehpdjWRl3QH eqOWCcoUW3XVMngBEzV7Ye FZMoJG5rezl9JWH1LGypSO YzObB4SXPhaUEtGSMgaKen VWpht115ZEQ2GvGoWPTbcr XxeSwmeW9fXzNiNTF4COEe NVxwYXJ9 CLINICAL HISTORY (test p0zepGWaLVYjiKC3MiKhPN code = 3354) Rhh6wfy4EnnDUsdXXvDHwq zSSrreTxaa83tOQ4dY65HP 2pUAIyZtU1VDNmnmC3Ipa8 TVUuOWTxnCLvD743j6qes2 lunnUgfLT8bIndVBPgikxx HrQ7EUcrQKZwupvnUIh7PE dtNKGrpQW7UFLglSGlO1Cd WVAeBA6cuxz7LAF4KNagGR OwSaA4YHRkxUHrTCOhfNap TJsdf702ZTS4XuQhKSYcdv TxkPsnkP5hZgBpRRXoJCA0 Up7eYF3kNG3ckVKrlwbeiv EafqOrnfXvawVztcU3ZRLz q6v2qZVLSSh4CO2xIGiENB XhiaCqOobhtJ3aqMkqxCPz NO03bE9jnFOav8UxsDQxSR duyXbqovIgxqVaAYqpmH5l mCqvGX4tQlD5QVndclWxFR BnJXFzzW5zADZel5glpxTi YmRvbWluYWwgcGFpbiwgU0 2QXZDyaAclnZxbJEFdMT8d g7BvvyEhXZHsJLCkP5TpIN Zob3UxZTV3kjCuYLNpCYJ7 wZK3b63skCkxNTKiJT2rOE ZjVRrwKZZtJEkySQ7eCPNk mpVoM3HpKS7aw8Uvr5n+b2 0awG4qN2ylD2hlOEJ7 GROSS DESCRIPTION (test t0jloBFhPLVijVMVDZErK6 code = [id number]) bmrbTmRVPnvFZxQ1Eiuxdu FMatBN7nNB7slCkciVNweH CvAT7JIYUdOiOrNPFmtAJl dqAqEeQzRLCflMHuhXY4RP ZoIX5lqrnrOGnsUWudRBVz bmP9JNJwcJWuV2ZoSMUnES 4mamyuFMY5LAodfY1uelTG GdwtJy7qwRQjeLxxQrPaAo NoYXJzZXQwXGZuaWwgQXJp UOy2jG3XPlmhODC6HDCXMd zcQBBeYW0Dn8sgJNFlvISe UGY4FTukhXNyFXEcJBVuHV g9KSOmRWrfrHBlXL0uaOsq EyczzQiva0QtwGEiDDgjJI XqZLSsKJqaPXFmJN0PBqGk QLY4VHv6LGOcAXa8HHd8RJ 7FDqYzTJPoFVH9MXE8PsLo XGb9ZLrfWH1DILZ5OXT8MC ryWmQ5OJW4UtKpCKEqTvCg XGYgQXJpYWwgXFxmbCBcXG 7ygSfpiUVimqPNDvXWLII2 aXguXHBhciANClxlcGljTm VzdERvYzEgDQpcbHRycGFy XGxpbjBccmluMCANClxsdH IttBssfmCeDSPxC2WzxvFh BJurMHSqwb8njDzbWVgpZr TbLMKni0a2sQV6mICpdMM8 gSKmjIdcVfOhUG5biVBsFB 1vADycDInyxrNjg1NjJS62 bWJlciBhbmQgImNlcnZpeC IgaXMgYSAwLjUgeCAwLjMg yUBnIeTtI28ygFXgIMlcJO fad32pwFJ1vABkhLCrJpGn M89nszBtORGhoCsmVBB9pF TuFFUcj93sBHE3Ij7tvOGt EWBcfpP5g5EuSYhoLSNxSp dsTTFoTIemlJLkXN6IM5tg zLElGGBHjgI1czuoLXcGTP BAXZPbQZVZARunmFwlnQ5e DLxzmR3eNJ4WPBCvHJdiQT TmhFBNVWN0YK9xCPoxiMHq uwwmHTThU6RaP8HgfdTypS GbYFXlyzUee2gyEQU3UXSq vXFgeQCgUjWwEtdnYNG6OD pre6twTSX2JREuvEOpvIEj EYjbEvTrHapsFZYaW5AcS0 BvrkB2BNr9 MICROSCOPIC DESCRIPTION c3kghFXgWDPyxKN1OrGdTG (test code = 3371) Abx3yfu7TqoPXzwLEnSAak kNOgwbFnmx45dLO6hP44TM 8sPSQuTnV5RDYfgnL5Txe7 GCHeQWQwkZMeQ296l7hty1 iaubSctZR7cPytYELkiqhy EjQ8YGrpVTShnanySVf7NF lfCNZxzIT0ZFOrfGCkO5Xl XBWbSA2ychv1GFA0QJyoYY UjAnL6OVSkbMPqRPIyjKfk TLmqj805IJD4BkRsCEZbdu KorMvzcM0mReTsXYNCTJJp r0YzZCCcCJWsfh8= SPECIAL STUDIES (test c5sryDTwWPXlb7mqOOVvlY code = 3376) FuZzEwMzNcZnRuYmpcdWMx HLmnzjLvSRipo9SuH3QnKt AwMFxhbnNpXGRlZmxhbmcx IMWfVJU9xeZjBYFlGHkaTT WwKRnzBx8gkWHkiPtbNwFy QDXro7zrmoPIilunrDp9n4 nuATYsKsR0uRMwHRouT5bl vaDnxUWoB4UuuVAtpNw0x3 zkOnZpXpB9wIDlWEtmV9ca dkSisIYgMGTsOMb7hC22UB ZlpU0brSHiQZtqepUoWjY6 DHiuSIZnKpB3MOQhjCKoKL SgO5doQKSrOTyfWMDaEByz xOQmRUF4xUzoy9L3hZMhjB MktFqaAdLpMqHlDaPEh8Rc RKz7bUqcH9FvWWBvDzK7cJ QgUGFyYWdyYXBoIEZvbnQ7 qYzpoeXow08uhGMwNRFbNZ RgHvLxzQreBZZuBXTVv6Rf lTudWHL0rJo6wRotFervAC G3Yqf8TR7zav95mcs9yUmc VYFvqwjfFoL6HYuwMAYkvq wqCTy9KGnuVNOreSJ8LNId lHXyG5YjBSKdZB0bkpz8FH Q4RWehMMFcDyP6UCAaeZBi FCRtvKbfJPcum439HLP8Gl CzTW8sY1Nox6A6gQ9oqQKt KUIcqJHmCnFuWVJtyg4yfC IrIZolk3PnKQR8eiZ1yYDv yFOaBGUhKU16Xjodd9PxCx ekd0WxS40grQX8PWcpn2xw CI6oNyN3utMlEMjoq9uqyM 5uRfH2ZFpsTY0iEE0hCCAa xU6octnxFWUgLcFqkfghFY XfrRqngyJaTk3ycUhjFMK3 FXthB5xojF0uHqN2SZrqE7 zvaQ3gHPq7GPyrxZM8YBSk sV1uBU6bmzmvg3jpIZziOS mvGEXspzY7bzA4BJZzdZOj U9EijO0fPLJgRI6ocejpi5 pkGPK3HCixRVGaUSG3KeKp VZCyt8Tuniq1JsAbd5QxqQ VmYLieS48li158QIFbfiKu C9wcpSAgosybfLPpxxszXK nxgtP9RRRlMRXrAPolJHWj XGZzMjJcbGFuZzEwMzNcaG ljaFxmMVxkYmNoXGYxXGxv E1uaPpQkE4RxGAPxXqGiTB tjNAegdQOxaDMupNE6vN0j ZR5bKJSqwOFvQ8XnKMNdls NcjFDcBNM0sWEndRLzGK6q YKdktXHex4xkr7ZyT3yjvE cksKC6VZ8wWKUmTFYbWFhf p6GzoL2eTxzfhQKfpvhtJR xmczIyXGxhbmcxMDMzXGhp J6zbGdVrFZWwdWzrJGnht0 NoXGYxXGNmMlxmczIyXGx0 cmNoXHBhclxwYXJccGxhaW 8tQnGyTsZtTrguVG8mJCJc Q4tmbKPxWQXiYNLjA2cjCx MqyK4rmRzwUTobQnQpOoHg OlXAv591xc6mEANofKDnck MXlCWoeS0gLSisOEbvJZco kCFjUQtan7quECPul2b5cP IsVXJrihRqw4jsOUhzmqAx YDIvzECahISsVPXoz43pBJ ijwSdsyJvyNDWmm0IooZag c6UfIiNrSMelb4NsY46rvT JvbCBzbGlkZXMgcnVuIGFs l75cx6sdGNVaNnT3dUOrpE U9dLKbnTHff1AimZruLZFy y0jyBGPyoc2pnzmdbLHdc0 AbtM5lygqqLQgqpECdirMj YCZyw0v9qRPjXJFzWLKlTP qywNf9KECem340jo0vobL9 lVBuDZN9FCtnONEvROUhns UgZXZhbHVhdGVkXHBsYWlu XGYxXGZzMjJcbGFuZzEwMz NcaGljaFxmMVxkYmNoXGYx RSirH4dvJfSiV4KqFQJtCl AloFWnU7lcsQTsMBIxTSet XGYxXGZzMjJcbGFuZzEwMz NcaGljaFxmMVxkYmNoXGYx UIjzJ6zwDaEdI0EdVVJeBl IgIFxwbGFpblxmMVxmczIy XDqkiykrPRCoCMbqJ0bbRd VqKWJwoOkgUAhpy9SwQZQi WSJaCuvbrqGvDMo2noYyPE BhclxwbGFpblxmMVxmczIy VDyauamfPVUgXQygR4xcGn ThGVPaoEnmBSsil7ZcAEBt XGNmMlxmczIyIEltbXVub2 vfb6VeY2wtsWazzPK2MYGv S9xwvHNzaMX9BHG9oM4fIW zfkiShUGDom1FaRFWzIGIo DbR0dW2zGTX0ZeIIzHirQL BsYWluXGYxXGZzMjJcbGFu ZzEwMzNcaGljaFxmMVxkYm JsNZTwXJkhD5baYfDjC6Ya UHDhRjFsdTsaZFzeTHq8Ni xwbGFpblxmMVxmczIyXGxh zciwOCAqAIpcY3ezZzLoXH WsyZtzQCmpq1GlAXOxJYQu MlxmczIyIHMgTWVkaWNhbC JERJ92OTSkXYFhiBjtoK3g pLXGVDTfpaM2d1A3KIkwRY XgQFt7JCahppDzUVIrpI8c EXEnAF9pBRf0kvRoZJVqc5 RsPJ3pOGXndADlSCT8QRPh s0IdE7Lks0PsBOSlLWImju 6wmwRzZmMIaMNaSKHxlx34 AXOfLX2xA0zvPJZiIBXizr HjjNYud5AnKYKdvYA2dYVa HG7VKuHZc69gMKHcBOQWxu TuVKHfiRikzLC3nfM1yC1u LiBUaGUgRkRBIGhhcyBkZX Zghv1dotHgDNKgEWQsb5Zh eEMpqDDxsjYxD0Xsw8YeAH Yibo67JOxmfJJnkp88VQ5y N9Fdq5QqhZ4kXJlvYIMzp4 CkgEOamQSdVQSrd8XpG4gl fruhOXxpnEWmvM7xCAEoCV h8ZVJrb6XzUUAiq0OhIrQx jwCvOTOjOMOgSBNvaK28IO R3tTpvkIrsqhFbGM5vDBGy zlTvLADaCABzvO4cRKctvf EkUNCahmH6z9D3MJtzLFVb frWmZimgDPP7mqLrooG0kC TsG9nummagNIauLZYgd8Mu jA3bkPQBgGKwp2RfyEWmuA RHoVObOK6ymwMsZL9fWNR2 ODggKENMSUEtODgpIGFzIH U5ABhaSaoaUMA6baYtJTDy r5CsYNriD0jlD75hjOhzfK a6lUPkbRpduGApjSDbFVYx kcL3u1B8GNFpp5KyvtonPY BsYWluXGYyXGZzMjJcbGFu ZzEwMzNcaGljaFxmMlxkYm TdMKHyXUydD7riJaYrTaHx ThpjWBV3jR== [facility] [id number] 16:47:26 Test Item Value Reference Range Interpretation Comments Case Report (test code Surgical Pathology = 104) Report Case: [id number] Authorizing Provider: Nathaniel Dooley MD Collected: 02/26/2022 04:38 PM Ordering Location: [address] Received: 02/27/2022 07:57 AM Service Pathologist: Gene Carlton MD Specimen: [employer] DIAGNOSIS (test code = m8gsoKJiUMVrf4jgQOOdoO 3220) FuZzEwMzNcZnRuYmpcdWMx IHtccnRmMVxlcGljOTYwMl jebrNnZMTurTNeN5Wzdeco HZyzGF1vBV1gfShfcGVzhT DnLGRcAeKir0alm115sEWr d4ozGUQBwvgjtHq3oUbaL1 2dk1W0WuqqL11skANoGQK0 DOZeJBGfkQIyDJLqOGK4NN PbyHFjN4cqZBVzPA7fsbhy AMlrLNnzEONufSK8MAOjlI ZrR2PoLOThRLskNSVdznn5 IyRyCc8mdYKweKoaQGxcGE CyWQHoDJgjTREzCwAoP7XZ NvuTNCTCABLOLZMIOA2MO5 l7EUFayzr2UGZkTQTELGFC AzPEQ6aXWNFATjTUAMTACU PqM5XnB9LYZQ1PZWSaL7GY MKEUSUPTBD3JNHZzAVZkXG Msw61pBX53ROyiGXB8e3od dGYxXHNzdGUxODAwMFxhbn NpXGRlZmxhbmcxMDMzXGZ0 bmJqXHVjMVxkZWZmMHtcZm 1dyHSkqFadTeFzPNYau0bd ekJJxxgtyPf7a3jnKEYeYu V7wGWzFZjmL0ktusCpaYTu OKDtYNp0pY30YLHpvB8wpX GpSWouvmBpUgU3GPnrKORv BpT6GQWamVTwVFQlF9avRW QwXGdyZWVuMFxibHVlMCA7 vNawg1F7sGQzsLWslSdqYk IlUqRjYyHAx8AcUHg9bNwm Z9NsLOLrLgI7sLWmNEImDF ppLOQoRNRzvdY8gJ06ZUnd mdW2aUSxo8Vmy28yq092oL 9gpHTgDXR6GVHwKMPufDDr GEPfHBF2YGKwmHNdA7aaZQ PoWP3xxmolATgjGKsmZICq fKY4PWEltSRhJ0AxBUJcBK ddUCTdgfz9SxOeMl8fxIPo eZcoHSqar9ohs9dxeJEdYw e6GBDpEmNxOtruGEirv9Zm o7jeWJKftf7lWSA6cKTubH ngh6F2fAEeOGHcaSTpOTTf EB7kuREsTBAeqU7qvxdwVG BnYnJkcmhlYWRccGdicmRy Eo8ldJzbMNF9AVvzS8rfuA 8jNgU5QJhhY7psmF9mRYa5 JQqhSXAwyXF0oqO2MBTvxR VfV7PpnC1dVBZtXW0yijh5 l9anAFX7PLftJBHxVpJ0pi U6OEWiiENjMTJknIpfBMnk z978LIY5YnEfWLBgm5QlQ7 MnmNjqM62hiNdkO72pKIFl qHaipZ8kaZdaaH7dUuCwLv ZsJVpuoLcrTV8sDPVmH0fj oYGuDVHvFAIfE2qxZoTygR 1ffUajMLvmldQeNOUzLrh4 LURijWYnHCVuRaz6UWTlFL EbO55qbjieAEW2pA2bf2ee y0SvQFxrLQK8NXEcm98gCJ owanD1LHqfRn77SJfrEIU2 BJfkPJS2yF== COMMENT (test code = k0yghWNbLLXvaLZ4AlGyMZ 3456) Bdc9euu7PgiLQjrGApPXra wCGjkjShyk32fVB3rF10UN 7fQQKbQaE4JOJjruZ0Mry9 FQTdRQHprIVjR217u8oaw2 kmfyAuhWL5dMuqKEIzihpm IdN0IDfiMORohhxjVAj1ZP yuILFtsPZ8HMOvrGNqV8Hz JNRdVP9emyd2CKP5PSusLC LoCrX1EWTkzMCiNQMyqPpi AZxbs930VRV1AnDzKOErnz IrkXsezT2eCqElBMRZvVTz bMJ3nEFbtJfrQLfkd0Ppcw ejp4MoH6CmijbcYJorsQMe xsDcyvZdl5OqWQ6sLAbsKR Q9jP5oTXZsm3unVGPaG3Vd WX3gT0Yvv6hbEZHdy2fhfd UoGUQ1fRTqAYEbygHhwkSs IZT8uTJgrDDddHToaBNeyH Qfz5IieOM0dfMrnqPiyOF1 ZNNag9VpyA22OSNvz59zEV Bhcn0= CPT Code(s) (test code l1okzSUeQBPsgBD0RtNnJG = 3357) Tyg4tlk1IivIRrdNUfCVfu cYYwkzQlyd31fTA8lE59NJ 6zNEWwRjV2KKBycoL9Yrz6 EMKwPNKzvNXoD583t8mww9 izldYurRD6uAxnVCIhvcei MyT8NXdfFMLyeqztIBo4XY wuZDGwnVJ8GFEatCUnB5He RJIvKY4btxp3DKV9NLquKQ NxKnT0VGPbsAYiFXLviGzi GLlkg323GVH3MqMjPKYbob PloCpxjZ9vZpAgCDE3KOPh NVxwYXJ9 CLINICAL HISTORY (test t2mloSRqCIPviIP7IjHeUC code = 3356) Whj6cgf0CecSUzxBJbVNfa iWXyxqIewo83aSD1wS41QC 5yBMZvMqE8XTMgleF6Fvd9 KCJsSHTyjTGhY154h3pcl8 cwsbLvwWB2mSacHHZhqwxq WqC4MUlyEZWythrlOQq6GR wkTFHafLN8YGIioRZqW1Ql HJOsOK1mczd4QIT0DPttUD WpZyM0JATvjCPrCXIoyGcj QPmid618GEG0SmAzSANlrp AobKymzQ6kOxVrHTViHDQ4 Ie2jOG4bCJ6hyCEnoctdvo NuqlGdwwIfmmMzcfB7RPAl w5w3wYCTSOb3QJ2gBCuMGW NsrtWaJfdlrE9uxZmsuJBw CW94yR5rgHHfn9WitXRuZT zaeNndvjYcgtAvHGcgaN3i xApuKJ5zVuC0CQdqynPlNY HwBSTdeN0vWOZiz2huemTy YmRvbWluYWwgcGFpbiwgU0 1CQHFixHvlxEpkQYAtAW9c l0QfluMgCCDuWBKfP0XcTU Svj6LvFVI8hxSvIKSfLQN5 pFR8m74ezKdjYDSdLH7xZX GvIMjqDJUnPKmmAS9qXCIo yhIxK7ZrBP3dv9Zet7b+b2 3edK0kP1bhZ0riVQS2 GROSS DESCRIPTION (test z7tfoRJaRLNtyXVWKIVqA0 code = 8261956803) ocduFsEZNicEKrJ9Ciultm IHwvDH6mLI7aaJgnzAFrlE UcNR2BPHGbJqVwETStpIAi asGzScQtUNEkpTGuiSJ6UL PgTT7tiwfjINltVFtjUPIq taJ7NXQgcELgY6TbFDSkQV 9mvfenIQK8WTsmjM5tceLX LhizMh8vgCFsyXkqQrQyKt NoYXJzZXQwXGZuaWwgQXJp ZNg1lO1GHfavFBD5SOUQGa ehCTTvJC1Lh5ltMDBfvBPk WRB6EQmtyVUiEVVwOHNdEN t6HGAuKIkgxVSlEO8puYrl GfzajXhzq0UocHAyYAfvLE QpRKSqDGupJDJzBQ5SUsRq QUP1IXl6IAWyGAl0CNs8YH 6KAmYxWQEeCDL3ONO8McDh CFm6OWslVQ5DBPC6EEP0JG fdSpV7PRP6OgIqTGJuCjHr XGYgQXJpYWwgXFxmbCBcXG 1kqYtauGVccsOGLmODFKF1 aXguXHBhciANClxlcGljTm VzdERvYzEgDQpcbHRycGFy XGxpbjBccmluMCANClxsdH VujOkgnqBjVNUxQ8OitkJp BDyuNOLysx3boBlqMBlbBf MsZCIzm2l6yTL7kSDaaSI2 xVEpfPnmTiUiYF6exHPfII 7nYOpfAZsyogDle3RgXP22 bWJlciBhbmQgImNlcnZpeC IgaXMgYSAwLjUgeCAwLjMg eDFhItXtR86jvNUhUSvnHL akr56hjBI8oZQznELqHgPa C17xowQsQLPboHnoQWM0oQ XiEBCbd01sAHF6Hm1awVIo GUEnlhD5z0LfMDozIEYeAu zuGTDrCIuucBCmIQ3EW9ll rONxZUACswR5lnuyDOtCBF ZEVELcFJKBZJwxoVwgaC8q GJellY8aCG0OVVBiWCvoIV YfoJDEHTO3XI8bRXulhTNr gwjhUVUxP6JxJ6DpheLkkG QhKWRcbzDzq6anRRL6JOZm vICrqHOnNjTqSfvdFJJ6KH yrh2taMNT7QVLemBXkjSZv BYdjQvVkGmfnCFTaM7LoM0 WomkH8ASs3 MICROSCOPIC DESCRIPTION u4mbmMXmEGHfmCN0GzRlVS (test code = 3371) Oep2zew6PydMBxdWQyECwv dRBabtHepi34wPT1rO06WO 5dNQZiVsA8YWDasbK9Xsa1 KWMcDRFsoWWvH405m2wjc1 mumbCihDC4lIxjBFXzxpsv ZfO1VIkrOCJfxewcEAb0MW ckXRKtvEN4KITpoMOgG1Su CTPjBH9gwqc7LLT6TWocIC RrSbE2XIVuyLYoKGBbmVik TUtxw436ONZ9MlPuIKIxav UftBnrcC8rBzOlUFXLPNUt t8OpOXTjLHPbhn2= SPECIAL STUDIES (test f6opfSPuIEOsz4ecRWEhbQ code = 3376) FuZzEwMzNcZnRuYmpcdWMx IKqfjiJjJVxds0AaQ2UaKt AwMFxhbnNpXGRlZmxhbmcx PDLmCHN2uiAwZRMnDGzqWA DpJHmtGo9fuWIblJrgTvGz MOPib1tyhfQJfpzbpVt8k3 jpIMMdLcA5nUGyREmoK9kq mpVmhEZsX4LiyFPszNc3r9 yoKtWdBqJ8pRIqDMaoW5gq zoYcpSKjRFRqBHa2eJ10RV TquN8hfVYgSHpornCyObZ6 CAlcHMOtMbU5KMMerTQbEI OhH7eaNNXmDJxhHOKcRSxk fGWuNHH5sEnkd9Q5oHNysP HkxPslDkDwMwJqMaVHs5Mu HIy3tDmlP2EhYYGaIyX9hV QgUGFyYWdyYXBoIEZvbnQ7 zMtsncNcl81zjSNnQWDoGW AyJnInbEkwZMSpNYAVa7Ga uMubIJD3dPu5rIqjRgcuBY M8Sqn1XA1grq58dpm5dRpu LAEgjmvzBwT1HYalHCIdmr hcHZc0IKssZIGxmXX5KWMt vNPjQ9MpDVKfXA3snvh6JH N0EKgwBPBnZvM6KRGkgMGy BPRcmDqsFNekh769JXF4Qf GjFI7zG2Uel7H5cT0hhMUy HMYjcCEqNjDlKHTryb7fnN VbJDyrk6AcWCB1fhS3mVNx pPSfHJOdKL77Ryfov3PfZd ppc2AoN62adOQ8QOfuq1ow SU9kQvF6yiSaNEqmd3bauT 2rIbF8ZXtrYN7vUQ2mQEVd oU1yjuebVLJvUkPedxkcCW ZydUrhwiLdHh7ksKmqUBA2 JGhbI1lruU3rLbT4JJjfV0 xvuI1jJOr6LIzteET2PWMl cF1xJL0iatpjm2kgMPisWS fkDKCigjQ9bmU6QGOghHWb Z1KgbF1qRITbUZ3bumlzr2 xuLDW8WPzbLQEtLBK2ZtHs QUPpt0Jquhj9YbPbg5ZrcH YvBWsuJ78yz861HIIxjcLh P0hcvLVodjhnzIPqpcckGW nfeoC5GNAaDWPtKSurWPTs XGZzMjJcbGFuZzEwMzNcaG ljaFxmMVxkYmNoXGYxXGxv E1boOzSiO6CbMNVfDeArUQ rpUSyyiBTknMFvcLD9iN6i RQ6nBVUkaQRgR7FjVVNhjq PfhCDsGRL2jXNkwUNuPO2u YPrgqFJis6mrt3FqY1zkaC thqYV0FL9tRWFfJXLqYBdm a2SgfA4mNxtifUEvxinwLT xmczIyXGxhbmcxMDMzXGhp Z4zbZfQmVANkwPheMIbuu3 NoXGYxXGNmMlxmczIyXGx0 cmNoXHBhclxwYXJccGxhaW 6iLzFsTbFtZetrVD3uUFLc V4xqfIAeDXCiWDEnR0efXl GeiP1uzGhaTOqjCpPlGdZo ZkVVu923ce0dFCPuoBDzdo EGbVIqfW7xNHuzCTyxTEvj wPIlJSjrk1ccQHEtu8s4bR MmIQCiewYzg0wxUUgmqaFd SAHinMWbcZCpOWEos81jCY djzQwnoZzkDIAjx1PmxPfb c3MqDvVdCPleu9FiK36bxO JvbCBzbGlkZXMgcnVuIGFs t57xy2ujGNQoSiJ2pHArbV B4eZSblSBbn6OiyCvfHSLt h1ioCKAcmr0ajzgluZYyf4 NylO7xylbxDVsauUHiswEw IFWbj2x2mNIlRFBbADAwIC aohWo2SYRtu961wo0rjfX2 oYNxMZA2LPzuQYFpCNJagf UgZXZhbHVhdGVkXHBsYWlu XGYxXGZzMjJcbGFuZzEwMz NcaGljaFxmMVxkYmNoXGYx EQzhD9nqFeAjJ5XhSVYtEh KejNMlC1xusSEgGVPnXYqp XGYxXGZzMjJcbGFuZzEwMz NcaGljaFxmMVxkYmNoXGYx IPhuR6qxRlQgR8BoPIErZg IgIFxwbGFpblxmMVxmczIy MOlkndsoJGFfDAyiC4jiQw RdGYJzsInnWGfqa3RfBKQp XOJjHjkgwzXmMSn9pzDnXP BhclxwbGFpblxmMVxmczIy BBljalhcQWOcPRgdV4omDz VlBKShmGnuKZhip3DrYFZb XGNmMlxmczIyIEltbXVub2 zvh1DxV7jlrRabcVT2KNHc K7gpgRLlhPB5DBX8vV0vFR zwldFaXEXpq5DzNUTySNUh CtE7qH4yGXP9JmRHcCweQX BsYWluXGYxXGZzMjJcbGFu ZzEwMzNcaGljaFxmMVxkYm HcVTNmUEgxS7qvXtRlR6Wn VTXuVkLncRcrHQucLFf7Zk xwbGFpblxmMVxmczIyXGxh jtekIQNdBAvvP0uoWiEeEM TghZhbPAxda0PpWBXbFJAb MlxmczIyIHMgTWVkaWNhbC ZMYB35ZFJfEHKpuPubgV1w yZKGVVMgwfB5v9C7TXfrWL PlBIa4ZCtlvyEyZBBsjU0g GNBiZT4qHKf7wvNoVAVnj3 JtMT4cOXGxgWLsBIH3GXBc h4AfG0Dqi5PgBPMyLFRyyl 3fzgWtAmFZjCPdPWDuza66 VVIyIO4nA5rxAKZxKJWled DhaDXub3NwAJXfoCY6qNXa RF9NCkRGa16qWNYmYMBXsq YqJJLbgAlhrEY8oeK9eN9i LiBUaGUgRkRBIGhhcyBkZX Nvmz2tlkZjLHBtXJGyk7Dw tSGxkVDfniQwH3Xvu9XnWI Sbik82CJuvtNPlfl70EE2i A6Dtm8XiyB8wJCsyNYVos9 UpsXMofXAkZZCzi1EtH7nr kobbGIwcpDQqoV5bQOQdPQ k5SPRfg1OaYLEah8WjMvCc uxXoLXBqSJWqWMVncT00JJ W8hXgseQzzxiRlPX6iQWKc ekRvQNTiJJHjwV3sRTmgrm WjRRGwznJ2i4Z1QHqlOCPc ojKsVmztZSQ0qpDxfgC2vI VwP2teuyyxDEtpVNTnr7Bv iR6byOTMvXNdj4BuuVQdpE IYiRZjXA7gwtCcTQ3yKGY6 ODggKENMSUEtODgpIGFzIH E1LPdtChtpOUR0qySuDEBe p4ZwQWkvN9rhK24rjBkhyF k7aQHxsShhfTEcwNMeUHIe ngC1n9R7GDDfk7VzgoxwNM BsYWluXGYyXGZzMjJcbGFu ZzEwMzNcaGljaFxmMlxkYm FpSBKwQOcmH2llCeGeAzCv MrfmEGQ6aO== [id number] 16:47:26 Test Item Value Reference Range Interpretation Comments Case Report (test code Surgical Pathology = 104) Report Case: [id number] Authorizing Provider: Nathaniel Dooley MD Collected: 02/26/2022 04:38 PM Ordering Location: [address] Received: 02/27/2022 07:57 AM Service Pathologist: Gene Carlton MD Specimen: [employer] DIAGNOSIS (test code = [id number] 3220) FuZzEwMzNcZnRuYmpcdWMx IHtccnRmMVxlcGljOTYwMl oampTaPNGadSDiB9Jizykk EBgzOD7iJX0fdIxrkMHauJ AuKUSkMjKfc0uqj788oOEj i6cfCJCJlwazoVl4wAvcP3 8ea7A6RdguH74wvPLnBCR5 LKUfYYMhgYVcOHYnLKE6VW JccDEoJ8xqOKFvKB1iwwgq RTpkYFsgRDQzpON1CWGcpU CwD7OcDTLfVXjzBCXualq3 QxHrEj7qoYOniUlwFLjmMI YfBGIsDKsaSACwZdWuU2GR LvbOSQYIUZCWHKYMOS6OZ9 s8EOXpqou3WBNjNCESCEPE QiUJC3cDHECZRoIBBJLBHZ EoQ9VkP8CJHG7WUBGaN2XK QMILDYHVHB9NEHGoZFCfTK Ugb44oPY86TUmlSYS7y6nc dGYxXHNzdGUxODAwMFxhbn NpXGRlZmxhbmcxMDMzXGZ0 bmJqXHVjMVxkZWZmMHtcZm 4fjWItbUofQjSyNNJnz5jh peVMsaptlOs9v4scXVOtPq W4bJErQQrwU0ojdcMybGUd STGnSTk1zR38LANfyT2ciV AuOUrwfiUaNhP8MKlqXVPy UyG2DEKchMEjSZYoP7eqDJ QwXGdyZWVuMFxibHVlMCA7 vOaom7Q9hSMvmRCjfVpaQl VjHkNqGpMPk4PbGWs2pNxo V5VoVGTyOeA0dHWfZKTeBQ mrILLrCACnepG3dK75FUue uzX6qRGen4Fvk42oi892nQ 3knOJnXVK4NFSxUWSqbLVx GTQaBYK0LJXqfGYrS2awWO XhYP4flsewOEivDFsoPSRr dIW2AWXvzGBjY8AjOHUhWM joBCIeebp4KpMaWe9jvHUy mCuyCAtof2lqn8cqqYPrMs m8WHQxZeJrZhrlJHeln2Hb z6bsZBEzli1yQEP1xTHajH mea2M4eYFdGYOqrZZiBLGf TP1jgHRcHDWrkG6wvcomSZ BnYnJkcmhlYWRccGdicmRy Yt4fwCtfWNQ5FZofS6ddeP 0uGiI7JHbwD4cegU1zEZb3 FOvtEMUcyCR0xgU0OQPkjR EyN3WcqY4wXBDdTT6mgwh7 h6kvPPQ0AGovTRUpRjO8bz Y4VGCoeDPlCJPpxJeeQCws j221REN4XsDpOPIci5JvV8 OfeOfvO67geJvjO27wGDCu oUwfxV4gsHyirR8zLaOvSa MmZDojqPpzKE4oYNIxL8pb dSKuKJZqLQYeT2byIaRujC 8shZzxUYxahuVjRUItGpk2 TGQljRHyHVKkEbq6EHLhQZ KdV60krbqoGPC0iT4mr7nr f2IvUEapJFQ6ADZsn50aCJ wfxeC4VJfcTa08HSduZDA1 FNzoMLG4hC== COMMENT (test code = l3ndkBXsGWQjbKT2KnOdEH 0000) Tnv7usr4JaxGIyrLHrQZxn mXMabtBczk02lFH3jT87VK 6hVCArIyR9TKYpjyD7Vva3 PWNsBPInyKHdX592i8kzo8 ctdiCyrVC6wAbcQGOrdxwu IhT7YHynVXFygsshZAv2BX rxWMXqfNK3TUFlwRBpR6Jj TVNuJS2ucar4QJX9EIduTZ LcYkB7XBTxsPJtNAPkuMyo EFghd372ZOQ1HkCwTVZnrm KinKfzeD2hQzNbOLJKiGLg kAE7oNFufRbwQVdio8Guqb vkf5HuQ0DmoeckXNqanBCl drSdgcHia8RpLC3gAAnjOK U3vM2qFYTdy8btGQLtQ5Wl IW6aM6Jjc0reASUvg0pdfe GqYCZ7tFKeIJVmssRmorWn XVM1jKBxzGPcpWNexOFvcI Hcn2NwlFZ9rdWstyQdfYW9 OLQrb9KwlX84RBGvy83nQW Bhcn0= CPT Code(s) (test code u1efoFLaIUOalLE8WfKdGU = 3357) Txx9ekf7KylJTwnOKrERjl sOEzauCsjz49xBV5hX24DL 9gPHVtQxU4JYKzmtI3Eeb7 WNBrKBMlkNErV640n5btv4 nlleLajGO0tYgzCJJwnsof FcK3WNbzHWRcdvirHXt6YZ mkRFGqnYX3RLItzDBoK2Ie YFJyXO5jtuy1YFP0NBabFM RqXhY8HZCkbISdCFMhnQar WOgzc504ZXF1UkYwVTIidx SekLjeoO8yNlBfMWL7HZOp NVxwYXJ9 CLINICAL HISTORY (test j1jowAMhYEDdtZJ4LrCsNW code = 3356) Dke2uqk9MmkHDhtUPyKFst pFHdomJxdk16lUV9xM87DR 0kPBFoFgM5PJPcicV7Jrq1 OSMvXJMzgGLvN638g1dys3 hemdOlqNH7hSimYTVspziu DbF2ROgbXELrrkksHXd0HZ crHEQdyZD4OWPgeGVnD9Tb YYFrZQ8ojff0GIF6ABzoQX TzOyD5KGRvpHKeAJIweZny VVmwc217PTU4CsQxLPWdkb DtgNceeU8wRePoMSTyHPK9 Yl8zRU6fLY0rpDFtjqbegp MnlgRtjkSoalRuioE9BKTp x9s5zOKQJJn9HI3pBFkUIE OqdpJwFoowkE8pnTpycHEv EL21eG0tnYPbq7NbbJDdDC rgbIkewrTajeNfHYcxaH8n eNopHH2wRuD5UOluucNeIJ HkCJZdiA0iPCTcv6vmizWp YmRvbWluYWwgcGFpbiwgU0 0PUINibWtsyUpwFAFiNO5m c5YnuoSoJVFnMAWxS8OhCY Bdf2IiZYR7xyZfCFXsWFZ7 iNW0d82nqOjgOLLnRL2wIR NwQRroXHTuRLefGL7hFDYd hgQmV7XvWC0dr3Ghs8i+b2 5xfP7mA8knZ5fsIUN4 GROSS DESCRIPTION (test j8nweOKgHJTaoQLVTFGoG1 code = 8447491184) rznbUdMAOauTIaI1Zybvrr PQndJJ9dOP7cyKgliEKpyK QbVX0VZKCpIpWlAHMslZPy lsNxTlTkGZZjhZEjkRL2LM YlAQ0ndbyiUIneWJziYCOl qyS7ZYZmyEFxZ1FdCMDaFP 5japqtDWM3BWeuuV2izjEW AlmpOd0aoPFtnCzvFaRdOp NoYXJzZXQwXGZuaWwgQXJp VJi6bN9WAjjeHQZ0ZSGMOt esKPLkQW9De6czYZFibXVs XKG4XCxfgGYwMORpZHIiVZ q8AQOdOFdzbOYcRT7wfVjk CthusBgrm6IxdUVePZabKU KcPDEfLUaxQGQqPH2LOdTi NNZ8IJm6TNHpELf6XCa9AQ 6NWiVyNFFgDPL5PJL6CqFi DLv0QUgcLP7EQNZ8QRE8LZ daGyE3RES2LcPjCLGdMrCi XGYgQXJpYWwgXFxmbCBcXG 5yhXnmfGAhpuPXPtWLPFP1 aXguXHBhciANClxlcGljTm VzdERvYzEgDQpcbHRycGFy XGxpbjBccmluMCANClxsdH TesLsnvnRiEMRcK8XpnmFg FSscGIZijj3obZptBNvbVl DfFZHxt7z8dZU5mVJtnNW9 gVOxfSzwCeCcDO9ibPDwUA 7aXUcuWAarzjUfb5XfOZ79 bWJlciBhbmQgImNlcnZpeC IgaXMgYSAwLjUgeCAwLjMg jXKkSeVpE51bgOMnPRsbAR alu23coUI8hDWdrJBpGmTz B19chdKdSKGnaQmpYQS7rF JhDQQez06eDTF2Ny1oqUUc RQKdoiK2n5BoPGsbEPRnQu wuQXHuDVcakHKfIJ1WP6zd qORoRLQCedY5xlerBUpNEK NZNTRgPSLZGInouCpaxG3c DWwopS5oFS2CEAGfDUmlHB DroVTTBHJ3WU7bMDvvqSAb rxyhIGOeP5PqF4VvjqHduZ ZjCXRgbdCaj8sfGQK9VZHo zTAlnRCtLeLsIeapYWR3MZ joo5sfTHV2IKNrxMJesCHx SEheUkEeNhqvJHMiQ2XyU7 LkopZ8NIc5 MICROSCOPIC DESCRIPTION w2ghqEOnCCXrgKJ2HnSmUD (test code = 3371) Kjm3wlu1DjrAUjyLPmFRtq mQZgnbPomh28aZE7cK03FP 2rAEMwUyJ1KFOrzaE6Klf0 ZWVaIEJkdYSeP684m1tnr6 hkgkCbxRL2jZmfRZWtysww RlL7KJiaDSOowkmiGVz9TW lwBNImiGL9MAHpiTDwU2Sy WBOuTF0lhzz4SRE0ZIrtFK BlHdB1KPLarICxTSNpjNoy BEilh574QQX5YxRiOVKqnq KcuJminR0xWjNlFLLOPVDm h2KmHCJkAGUoss1= SPECIAL STUDIES (test n6wuuRNmGCVfk7xcENQfmY code = 3376) FuZzEwMzNcZnRuYmpcdWMx KOqshnBlZWxqa1VdI8ZlWm AwMFxhbnNpXGRlZmxhbmcx WIWsIQS9pyYmAGOpVEevXK KcXMewDt3gcXXnfVpaRfJc DQUyf1kokoSCzpspnTw1u9 ubOJElVqN1qNPgDXecC9kn paGchRIqS4AcaDLxxYc7t3 tjLkYkPbI5nQUiWYpvC8cx nrTncPYxAMWjTRy1oQ15ES XoqB7ceNYcDRduuiShLnR1 SJsjSHUwBuS4FWOruNAaXW LlZ5ebZHNqXVjvFTBxWDue iVAhOCH9fBqvm9J3bJZojT PsxUomZvJoXiLkAfLSp6Yl VYv6hFfaC8PnPLXgNmC4mR QgUGFyYWdyYXBoIEZvbnQ7 dGqpnrMkd39tdMBaOAAzLM ZrUeRjtSdtFAAcLNLWn6Sx aJzzVVZ5lQg4cBgqXdanNO N3Mhv9CA3auo30icf5sGob FNEiljanSwQ6CFidZFOelu kfWRo8EBqcHBRefVQ8QTPe nQAcX7BuCXMkKT9rdln9PX Q6LReeMWTsKwG7AXYlmSOl UOZtaUqxLXhyu319IUH9Zp OkMJ4oK6Sxl2A6zP8amDMa DPUnlLXzRgLwBAKvlw7bfS TmCOgfp1XpBTK7acJ0wKLa bYHzBXTtBG35Nanpd3YoNa nwa8IbK11geQJ1SIefj7th MR7aWcB5qfExKFxdy5tklB 0rMiV1DZqhJU2tIJ4kUTOr oT9tbpbiDVRaKaWqtetkFM YdbVscdnVvAv5coMfxLSP9 BVxlR0uxbA5yWpL7BCetT3 fhhB3bTIm6WFfeeYP2HTVz cY2sRY8egjwfu5qzWEpsKV hyUMMtjmW7wiI9WQWbpIFa E8NxyS7wVCMjIC4dzduya0 mgJDR7DWdwTMXhKZJ1FaKy YWHim9Hkhqw9GrTxo1QwbD RmOZhaV18pt190DFLqlgQr Y0hneFMfrzzubCEmhiynLY jdetJ5GSTbHFKlGRahGCLm XGZzMjJcbGFuZzEwMzNcaG ljaFxmMVxkYmNoXGYxXGxv E6duVjXiX7FjKMSmCkJrGV drVAiulMDdhYOaxXG6bD0i HH8xAFVyeWFlL5IjFQEkwp LqkVAjPBC5lXLdkTChHX2z WDmifGOhq2kvr1HeB8eewV zmnAY0PE1cMRYvOWVhZOam z1HacS6rOrdwnVYiroblJV xmczIyXGxhbmcxMDMzXGhp Q2niSiUfYRHakRvxXFzok8 NoXGYxXGNmMlxmczIyXGx0 cmNoXHBhclxwYXJccGxhaW 0vEiHoEaNqPqpdBD5cTANh P6hgcGYtOGVpWPEbS0tdSk JztB8dtBofANdhApOtBkQn HhRAo947wi3aHUOhsOZxnn OVvZOqkR0eQOasEZkrBOpp lWRaIJqwv0dmDVMnp9w6lK DzNEViggOnu5tqEPxcbxIk BCUpgSPscGChGTAvt31fBB xdhPfeuEgxITGnx7MgsRgr p7ZfTrOlLKrgt2YiQ07vsU JvbCBzbGlkZXMgcnVuIGFs x84hh5tnPYThJbM7hVMynO S6qUCgiOLhw3XbkLfeLPGj k6bdXFCxoi8mrarljXTfb1 PtiB3nqesfTSxxyNRfkcXw UEUuj2a1rDYxFZFxKWMhNF fcsKk7JPCbd578ky1ekeW6 iKQgLKH2FBjsQTUwYISbws UgZXZhbHVhdGVkXHBsYWlu XGYxXGZzMjJcbGFuZzEwMz NcaGljaFxmMVxkYmNoXGYx KMqsF1jsCnOoR2KkXNIzHu AnxKGuI9gkbZGbVDSlNMju XGYxXGZzMjJcbGFuZzEwMz NcaGljaFxmMVxkYmNoXGYx DLouJ6coApKgI5EdXVYcHb IgIFxwbGFpblxmMVxmczIy NNzpjaqhQAWtBTwbT6hwWm CyINMqpMjlXDuia6FtBKCs CVYbFfrftaQbJCv1yoSlPY BhclxwbGFpblxmMVxmczIy OVoitmijAXSzWNqpN6atMt FkPOOsgLrvCXtlg7PjWZIy XGNmMlxmczIyIEltbXVub2 jyy0EkH8fcqMtstUL6UXMd W7manUBbeHH7CIQ7kF4nNW iameFkGMUnf8RfBVYnTXKa GqA3rP7sYKL1DsMVpVwlSB BsYWluXGYxXGZzMjJcbGFu ZzEwMzNcaGljaFxmMVxkYm XmOBKbRIxrG5jbRlHsZ7Yx CITjTrHccZirYEsaAWr7Yp xwbGFpblxmMVxmczIyXGxh nuevEPOmGHpbD1daOaAjXG SvuHhiXBsjl0DoGYGsWEWg MlxmczIyIHMgTWVkaWNhbC XYJO86CBNsSXXvuOjzuC3w eFFPINGxemT8b3M6ESzyRE XlZKl1IXgisuUmHOQhdJ2w BPEaBA5bLIh5gyRcMTHtu7 PpOA4pIUVjrMAaGVY7ISQs a4MaC9Okg5GcOZZaTBYxud 0ewrCdPcBXzKPcTPEedl09 HHJaUQ6uN3kbGFSoMDHyar QbxKQxv3BbIIEdaZI0jVBc XT3QWvIIj43oHCRnJRTHyr OmJVWsjFrhtLY4olS0eU2u LiBUaGUgRkRBIGhhcyBkZX Anuw3fblRpYAVgDIAun1Bj lZYmgNUhecAnH9Zfd6ZnID Tmly07CCgjhXGwlp43JV2t I4Umw1NzxD8dQFcbSYSca8 NgaCPxrKRxMOFjn0QaW1oz wcinSMcbrISscQ4eTSDbIO f1NJVlz6MfKGGao1DcGvVq rnZdBMCwPWVsHBIrjM70LP Q8xOkntYfnzxWkIN8zAYEd gbEzMIZdJOFrgW1yMBvcab UaTYMegoP1o3Z7CPuoMAIf waVvRdwfLOO9swYwbcD3mF RtA0avpvflOJrxANHbj2Ix bU2gxQUKxAHlh2YluUQtsQ NIkIGsDW7pehNnOO7aJZB5 ODggKENMSUEtODgpIGFzIH C7MLriAporWBY6xnPnQDPn d1IpGKecR1glM65oiQlkrA q0vGAzbCcqtEXayZSxMMFn sgJ1x3A5OMQhq1CyspjgGO BsYWluXGYyXGZzMjJcbGFu ZzEwMzNcaGljaFxmMlxkYm TtMATjYRlrD2ggWrTxSiGm IxpoCOM9tC== [id number] 16:47:26 Test Item Value Reference Range Interpretation Comments Case Report (test code Surgical Pathology = 104) Report Case: [id number] Authorizing Provider: Nathaniel Dooley MD Collected: 02/26/2022 04:38 PM Ordering Location: [address] Received: 02/27/2022 07:57 AM Service Pathologist: Gene Carlton MD Specimen: Cervix DIAGNOSIS (test code = [id number] 3220) FuZzEwMzNcZnRuYmpcdWMx IHtccnRmMVxlcGljOTYwMl ipcpMgBBOizURuW6Uychvq GHchIS0jBR2doEtpqHOhqP NqVHLdObKjv2caa388tCHi c7rbJTRIunkvjDp6xZbsY9 9xy5Q3XzlnA42opXIrOPL3 WBJiKMHjmAJdXQAfTML0PM EjhUDuU4huPGBrEF3zrdfj DTgnGApbJIClxRZ5ACOquE GkA0QqWMSeNIxzCAUabrm9 ZmLvWz2hqLWbiLlwSHgwGV WmYGXiMUkxKXWgOeTyL8ME MaoZCNTRFSDOFTMSVY9LK6 v3WJKhjud5BCRdVUUHUGXN FbTZZ0jIUFJPUnCWZYQEVI NrR0YxY3PXVH1VKSUsL3JO HIDRVIZZMM6LPJJrNUXqSI Ysi15bIA18WDwnPQX5f8as dGYxXHNzdGUxODAwMFxhbn NpXGRlZmxhbmcxMDMzXGZ0 bmJqXHVjMVxkZWZmMHtcZm 2pgWKjhDniGmGbUNHuk9du wqAAvggeuZm8o9vsVEZcUy Q1rRWqLDzjP0gmxfZncXDj SMUbJEh0kZ64KWRacY7ujI PpYAhsqyMbPvD0PTgoRSPf GeW7XMWqgXQgCYNjF1chQZ QwXGdyZWVuMFxibHVlMCA7 kCmib6B1bIHrxLIowUkqYl RhVnUoZoTJf8BvQMa7tMcc M4SwKWFlPiD5cIBqVBKoYD ttBSAoULChdqM5jG35EGbc dgP7sLNpe0Ybp30cw330nU 6kjHKzRNU1YSFuAHJvoLOu NBVjNKK6LUIhoLFxR1ixRZ PmMD0tuuqyZPhaIJvuIVDx oPF2XOUcmDVsS8YuFAWrTC qlOYQcdks0MuWhRh6mbDIr cYxtSBzih2fgm6mneCXkZg o9ZUNeJzKuIqbqZFejy8Mz e8inJQAape4fYTW7xHCefH xtt1S0jHYjBCNeqFOaAABj KP8ixXLqUDAffM6qbvnrGS BnYnJkcmhlYWRccGdicmRy Fi0sbTwhLGT3FYlcQ1shaY 0tTaV4QDloS7xgkZ4xQPs8 CAvnBIFhoKO5xuD3ZQTltR QdO8WxaC6fCNApKV3avga6 i8feIZB4TRdaGRGfLaA5vm F3RLTqeTAaYKXthQxcAGyj w101HAZ7ZdErMVFtx8KyF1 FlpMnfZ90vdErcZ43dUIMp sMdszI4doHebtL4xLkDpMn SwNKbhoQpfPR8uSHXdW8rc kXElKWOrRGVbA1fdReGlgW 5bbYmnUDwxkdEoGIZuGxq3 RHFljZOgZMViKht5SEHhTC EyB43jtuxuRRK3zK1fl4mh u4YnCFruDCV8YBPiw47cOS fxclX1YOilKi68QHgfADJ8 ILhdQMP8pK== COMMENT (test code = g4xifEYfSCUfcRX5XqVjIB 3354) Bxo1dcd0QjfYKceQQrKLmq mMXzgpQycz39kWQ9hT70ZR 9bPHSjEqN7BIZodsS8Mwc2 GKPdXPFsoKGoN070x8vau6 fclaAkmFU8gJqdQYUeaxig WyF4ZBagWUJbufirOVn5BW egJCDlbIK9BXVkkGKoI0Fh YLOhKU6gtbd3QJW7WYemSK EpYlE0GNAuzLZxALOyhDlk YFktr534XZD3EtQqKXByve JqeZkojM0eFcVrBEGSbIOa fBW4oAPxdCgoIZfta8Hxxx amv6DwQ1DxexiwWVhtvHJx itNwznOqx6OaYG1qLPylKN A5oY8hRATmi4waKAKkB2Ym OQ7iJ3Cuf4tcZRIev3biqn GuZET5zVAkRFWgngWvqzZq MXO2oEJujWIahHJucEQcvP Wgy3KcvAW8blJfvgFkiXS3 WQLpi8EczE01WFAvf81wZG Bhcn0= CPT Code(s) (test code c5nguZOoYCFcpRQ3DfShFE = 6143) Nzr7nrb1BytNFigXHeKHvl fWNsjpKbde61cQF9fV71YJ 9nASFfGwI4KPBsttZ4Edg8 SMXlZIGjeGGpR426p2ali0 yrxcJqiXS0fRnrJFKejdra GhL4RTuoTFVkjrobUAy2AK ilKQRohYV0CFNceRPcJ1Kk WSYjKN6oiqc8ICE1PBfnZG EhRsY0DXPhaLKnVGZciKmx RVbte278BSG1PwCcQSIlvz JzqNsemJ8qSyIwFQN1WJRc NVxwYXJ9 CLINICAL HISTORY (test o1fzsILeEGPnrJK7CfMaJS code = 3356) Flp8oeg1WsfOWxbPHfOQro kZGxikOctf31pIH4zJ90HM 9yVCCqKpE3EEDgwnW7Pza2 BRUkHLGuwNSnE876o1qde7 zwlbRqtYW3uTxhOBMkwhjw DwY9CJchFCEcdouzSIj2FP bdKQKfjFD1LUNtbPDcU8Sw SLTbXA0gtjr6ISM5YIcoHZ OmUhQ8LKYvbDQvHIFpzWvf ASnll922GCH4JhHaOHWxqq RveBwqbO3nTaCyKHFpWLM4 Gs6tCF0bTM3atAOybmuqts BljhJtkeCsraDmvjS9VCSz l5p7qFBIWEs1QT8zLUuAWA KjuqVdEtbeeA2xwRyuxBCa FC44xD8xjJSsl0EtoNCtAU kspSfvztXeeyPeWBtykD9y qVdaJS2dVrY8ZRdtpaDaSI HoVKXspA0kRPAlr0rebpGa YmRvbWluYWwgcGFpbiwgU0 7JZKWvaFrbgIbeLCRuYD8d r5EfcgBtXIGfJFAjO4CwKA Pif1GaRAU5ltCeWKTkNHC2 kZJ0a93pwGbgGSQqIE2xHU UwEQurDNZyZIraGP4iORWo rfJcK2NpYL2in9Ohq8i+b2 6stW8oD5ebW4zrJYT3 GROSS DESCRIPTION (test s9tyoSXdPQWncYZTZBRxE2 code = [id number]) mvhnDlJGDwgJWeH4Obudfh VRkeCA7kKY1twQpisWTvtX SyTY8NECKrDuCpWFNyiHBb oqXlHwRkGATpmYQicLQ3FY JmEO5jgbbxFUyeEGlxXQEg pgN0BWHnwBNwA3XkQUYaXK 7jwnxeHKW0ARasrS4awnWQ DkbrEj9pgMUurBjdDuInGj NoYXJzZXQwXGZuaWwgQXJp JNw6gR6YMebdQEM4FZIWBi mdDDBqJK7Gj8ydUJDujFQf UQT3YSilxTUsKNXyTFOiTG w4MIZoAAtptKPmQH9fgEcj BilqjJisv9FvoYOvDYgmWK HsQQCdSGyuGTCbHK1UFmDk ANM2MLz6UKArJIx4RVe0DI 6DKkYiMENeMRV7TGX1ShFo CFy5BGapAQ7JBTZ2SSJ6TX yvYfH3SLD5BaVxDPFnLdSo XGYgQXJpYWwgXFxmbCBcXG 6fzEtayYYutnXNWuXDEVE7 aXguXHBhciANClxlcGljTm VzdERvYzEgDQpcbHRycGFy XGxpbjBccmluMCANClxsdH JxcUirgwCnZYUzT4AiplMh GXnuQESvey2rgTejATjyCr HhLOYvt0g9wJK7rPXjbFP6 bJLjiXwcZnKgVZ3fgEEbPO 3qGGqxQScfbeNqv7RgGS90 bWJlciBhbmQgImNlcnZpeC IgaXMgYSAwLjUgeCAwLjMg yJLwRyVaW41ddNEqRPkhII rom71omWH8iVNmfNIqSvKt I84jxvUuWNAkvQvrANA5aT RnSAXth06dZFU6Py2xcXFf UNGfsvM9d7YuXIqmCVLzDe fuGKScVEupiWJhYJ2SA1ct wMOnRXJXpdG5svqxBZuTBL OYENIrMTJBFBedpWwlpS8g GLecjC6iAQ1SHQHtNYosEO WziVXPWAR6OY3kDSjkvADx uwezGYHkZ6HvB8RjqxDazB TgTHOsfsVtr6wqQQT4CISn eIJfoQTiJtTwQbanWZO6PG ttw7qcGHR0WTXdeOJrdMVr AZyxNgRoMmwsZINaH7BtH9 OpuiJ0EJh8 MICROSCOPIC DESCRIPTION u2ctvKRvSNBocWA4KcAvAE (test code = 3371) Mnz0upl8HwrQCmgKZfMTrl sCPwicDzec37oIG7yS20OM 3qMIFtKmY7BCUvtjD9Niq9 CMFxXDNxiVYeX227f5jue8 xjikJhzHD9lAwdZDXsjjxx LmD2FEqwHHGaitvpRHv4HG eoZBBgfDQ6TYMxbQKlT8Kv KQAlTP4afbb8EDP2QAaoOP YqEdY6VRWorOVsRSYuaHly BFtbt865CIE8FkYxPFUqub BumSrvvU3pAbTdISAMBGQc t7TfNLHjEBPqoi8= SPECIAL STUDIES (test u6qorZItUEVjj5uvKVMxkR code = 3376) FuZzEwMzNcZnRuYmpcdWMx MCnjwrZfJPhvp2SxK8MjXx AwMFxhbnNpXGRlZmxhbmcx AZAxVCO3wdSvPUYeUWuiWJ AcHYgnCy7ncUEfoXylGtFp CMSpo0covwPTquniuOd5y5 yuXUUfIyE8vUTvKIscX8qs emBppQWoI1MxxHAqyTm0c8 eiNtGcLoX1dOGeCYprA5rf xxZnaBGcOGTvMHi2xY58IQ WfdO6bwTJcIEtpghAiXaV7 ZAfyCHCyAbR4IXFlcPFyTZ NwW7ldEQYeFIsuZXRtIFld eQNrBIJ7aLdqq7K3gGJrkS ZzrMbiMoKpMeCzNtUTu8Tx YJg5dLjfS6TzEGWaEmC5uY QgUGFyYWdyYXBoIEZvbnQ7 vIrmzrXrs04dxAUfTOHwJA HpKxFzlTwoIGOeQTIDt2Lv bLusDVY1fCa2rJhmWpaxCJ K1Adc7IQ9nlf90jqn9zOpl AERaxhghWwE8QVkzEZWnrk mdNCy5OTdpRYBiyFX5HCYh rRYkG5YxDZGvTY1iina3SG U0NTljAHPqNkK8MUElmETv ORNowFheUUmay768MRC0Qm JpEG8dO9Uzf3D1bY5nsPTc OKWwkHPoCePpPKWwpj8maU VgJEysm7ThOHO9jjP9cWLg rIKdUVLzJS49Vippe2LdBs fvi0SeE61dgPZ7APags2ag XJ9fEgK9egHaXLsjn0pasZ 7xDqB3ZFumTR6wKC7wDDIy eV3utgduYEMwNrPuwpbcZY UidGnrfoPaTk3dsFfeUZY6 XZcyW3bidN6hAxZ6YFtrM4 tlhG4oXDb3JQrvkVA1OUQr lL9mFZ1umhjzy6fyMJuvIU wjRUHclpG6xfL4CWNwkSKu A2YdoR9mBQSvIY0ntyyqy1 lkPYL2EGjlFOWxLGX9UyFt EBFju0Wxiwu0LeMdp5KmxB NwEZeiK93rr073LLMnmsIa O4bgrFXytyufhAIvuxxxFX hgdwB7LXIbEZAgKBfpVAWf XGZzMjJcbGFuZzEwMzNcaG ljaFxmMVxkYmNoXGYxXGxv L6ryQuQpU5CfLKJqNxOaGQ zrLFookEKlaGXqmXY6kM9f UV2kRVIvzSTsO9HeCHOhjz ZhvDBtTIG4fWDofPFiMD4f GJdzmQRbh5opt7YlY6ypjM twuWO6AT2dEBGpUHCmKLxv a7RbdJ6lUbfzzKTahxxnED xmczIyXGxhbmcxMDMzXGhp H0fcQhLpFGZzrHwvOVyxl0 NoXGYxXGNmMlxmczIyXGx0 cmNoXHBhclxwYXJccGxhaW 8aUpJoDiCiDcwrJS4dUTCo S4snsBMfNFXwERBmG2lsAk WcnC0ruXhbDVkdNzUySiVu DeMNm495xt5dCZVkbUJwyj FIhIDccY5eQWysIHvrRWuc pPTaHNjrg6nnYMUkd9r8dW JvXVFwjlTwq5yiBGdlwxKp HUTpwMRnkETcZEHzz83wDX tqsFgzlVwjZLFbx4CxkWga o6DuKcJrQVmxo2UuM91lgQ JvbCBzbGlkZXMgcnVuIGFs o03jj8xyRCToIwS8hEWhtR I8nWObaOZjm7JynLlsGOFh s4mdAAKpaa1tizftfRGwf0 ErjN6wtbzxYGydvCAfaaVa DIXdh1i1kBDjDWFfEZMnNR bngKw0VKMns984lu0tjmT4 rAEwTDL1FIwbOFJxQPXdgs UgZXZhbHVhdGVkXHBsYWlu XGYxXGZzMjJcbGFuZzEwMz NcaGljaFxmMVxkYmNoXGYx UHrlB5cmMgTbJ5FzTIHhAv WfgUWiB8nhbNVdYAVdCExt XGYxXGZzMjJcbGFuZzEwMz NcaGljaFxmMVxkYmNoXGYx SZrfG9znDmUnS7VhNMInWg IgIFxwbGFpblxmMVxmczIy MPjcofldPVFgTPhiG7aqDp JgOTMraOgeLTjcu5QfMKEn SXArFiveqhGcAEy1ydYjLB BhclxwbGFpblxmMVxmczIy IZpoibyqOPNmCQvjA9uiMm QtNUXuzHenVTkho8MhIUNf XGNmMlxmczIyIEltbXVub2 xbz7DqG0xryDoldKC4VHXd D5licYKijYT5BUQ9lE4gJK wdjpUlRGHib4KyZNVpRORl OmH4oD4iJIG8LbLMgLccHC BsYWluXGYxXGZzMjJcbGFu ZzEwMzNcaGljaFxmMVxkYm PaOGAzECawZ6qdSjAvL8Dh WVQcBmXajMwuLYwvOJs2Jr xwbGFpblxmMVxmczIyXGxh kxrwOBVrYTsyM7flPoZxDN PsnEbrALmxg4UkTBNfZUBc MlxmczIyIHMgTWVkaWNhbC QITS71KCMyBSVhlOzloX3d bGAIHYObqmA8w1O6YDkjWN OaPMf6SXiiygJmGMPvdA5a MMKzMD6tBGk3rqGyIMFzx9 DjZI7gREFxoQEtBOI2VUBi a8SaK1Vtp8BzMAXtXCFnbg 0qnaVfLhXXoOFcAJUgpv91 ZXWfWR7xO4mfKYHeJFLusj YfwPGji9SyYLEogIF0aELz QL9DXjNIq20xEDBpUPHXrr VoTVIfrYwqwKS8yvD4mT6d LiBUaGUgRkRBIGhhcyBkZX Hbmx1xuaWaHLWdDVKuh8Mk lJPdxYNlarGqW9Uio0ScDD Jhka59LZhutZCavr43XF2z P0Shj7KmsG2kYIalVYQqy0 GyoGVjcWPyFVTik8TrA1lm hjasGVspvIVwaY2vIWFwNP m2BTEex9RnVSBpf6SlKsTj zxBnJVAhSIPtJJTcgR64CB C6wNctlGzdmuQyIV4wRTRw piFxPZKtYMHezS8iJHumab LqNLVadhP0w1I4DJwdPFZr eqRwYqobIYQ2dpHwazN4mV CmN4ueatbjKKvsORBck6Ly iD9wfDWWyOKwd3TqpHCnqW JGjDSuAT8lhjFeLP3nCQP7 ODggKENMSUEtODgpIGFzIH X8CLvhTxxmDNK0ipAzDZAe v6IqQRbnN9xuH41yoYotpT p8kUDydEjlqXLwdRYjEVCp ywC8g6Y7EMYep6LxdnwhWH BsYWluXGYyXGZzMjJcbGFu ZzEwMzNcaGljaFxmMlxkYm BwTHFmQLisD8azDdZmTxMk NpfrBKZ7kP== [id number] 16:47:26 Test Item Value Reference Range Interpretation Comments Case Report (test code Surgical Pathology = 104) Report Case: [id number] Authorizing Provider: Nathaniel Dooley MD Collected: 02/26/2022 04:38 PM Ordering Location: [address] Received: 02/27/2022 07:57 AM Service Pathologist: Gene Carlton MD Specimen: Cervix DIAGNOSIS (test code = [id number] 3220) FuZzEwMzNcZnRuYmpcdWMx IHtccnRmMVxlcGljOTYwMl bakpJmIIAhqQFbN9Pejtqy ZHqxJO4qDP7xiUqziZVrhJ QsTOGiYfLdp7uwf435sCVu b1idDFCUjsoskWz5dHnoA2 5bd5D8MwksQ43saNNhNRZ0 DEQkLBHalDAxJHShNLY7WW IebHFxK3vbOCNvAT2fzhmn HIctYBlrMRBioUO1NTZzcQ VrN9MjQAEcCGniTGRzvgc7 YvRjVv9qcPHtgEpxDJljNP RnXIOiTKapCDJpJaZqT2PQ KcqQAFONHLVMPBCOLD4MS2 r0WAErurb4CETnKRBQXLFF FwLNO9sBMGFFBmDUZCGXZJ PdY1GuM4IGIE9RXRAtL6WP OJXAMPFWLA9TQDCsEMFqDK Grv41dTR95LLcfFSP7o9bv dGYxXHNzdGUxODAwMFxhbn NpXGRlZmxhbmcxMDMzXGZ0 bmJqXHVjMVxkZWZmMHtcZm 9tkKUntGtjKlUqKDDec3rm qlGVhgzsgOe9p7hsYBYzHp R5wZCyUCgrI4yalyOvcESk GWDdKRh0kA41PJXkgI9vhB KtKZwywkBtFhQ0QGltQNWb JnK8QFGahXUpHGIzM8adKN QwXGdyZWVuMFxibHVlMCA7 kVure3X6dXKukWTvzJhuIv FsSeGxSvTEx4JeXXr0gWga T0CmHNPfXjY2fWNkEARyOZ ueVAAaYLWgbiB6qX73KCob wzA4aTOqt5Dfo34hp749cB 2ssHDiBMJ2MMYwLATkgXPs JPYbDUY9UOIgyAHbU0ipJH GvVG8tjotwWFobQEydQNGb sTH4HEGypKJcK7YeLHJmIW cvZGDurgi4FpYrEo7onWPq bVhpIApys7abe4zxdDEqHq f7VXLiEbLnSghnJIcph9Qv g0jjFNQlxz7cPSW0kRPzmS uch9T7mTFkNZHnqNYdTQOf ZU3csAEsSPFhoX5rhpouJK BnYnJkcmhlYWRccGdicmRy Sk7juDdgDSM2BRvrB0hlzA 0dPeQ1IUimB3poxX9tHCu4 FBnvNAMmhUY9iuY9WGJbvU YaZ2XtgJ4qCNCfPD6asro6 n9mnSOU7NCvmATXkFrH8qq W2HHFrhATxYUJbaOqlVQgs n010CJI9GoGuPYRzg3SyT9 GmdGehQ83qvIvqV99oCJXg vYyduK7dhQdkfQ4sMvWpFi IeTDzdlQvuXP3jABUkX1mb wLTiKCWsCCDyO4biKkIlaF 1snBzgHPpycoXqYTQuRvd1 IRJxmTYuTLHqHxa6BJQyFJ FiX17cphbwMAW3tF8mr3kk d4ZyJWwkSYG8RAZfd15qEK urykP0JRuvNe04ETtxWMR0 FLqbFVG5vR== COMMENT (test code = h1xgsXUaFZPjhFM1SdXtPP 6953) Xiw5spf6JjsPEhyHEbGGov rPAqynOjic61oFL6zT77UE 8sCFLwOhF3WZFrzbJ9Dfb8 SOAwNXYxoGLyN680d8wjg5 unojHknUG8xYsgDCDsumvc TqD7OOegFIEzeglrOPk4FD soUHHnqWZ5MTRlyPBkS3Ap FGCmPZ4uffm4GDM3JChoSG LiRuU1NRMdgXBwKXLiiVqb DLutp302OFO8BwOwCUGtkh CtgMcqtA7iRpQoFSPCeBPm wPD4gQTahLusNBxud9Fvmm cpl2QkO3IjjdiuBYlxfODj zlPcbmPil6UlPI9gDJaeSR B9gG8nZCCqs8mlYTDsY3Yq OU8jL7Qfp0goZQWhi8vkmn DwVLB2mMYvKQHichAeujHb KBR4zCBzzWYskRRjrPHywJ Rwm1KltBX0xaBoplErvWS4 XMHgz6JpkS38ADBgf36hMN Bhcn0= CPT Code(s) (test code i9ymgFNjUOGbuOR6VdWdTI = 3357) Dxt7zqe7JonZQzxQXmDGon rWEtpcUuom69kCR3iX59YE 2iWPWlEzF6BQTogvY1Qmn6 BIQdRWYmuDTjM442e8gds6 gtzhRbsXA5nAhjDJNmskyr EjZ0PEhuAZHirtmdPLp4TD noJCHevUZ2UDZbbAXsT6Yy MDRmHS8oahf7TDO1OMrgPV TkNsO7OUOsiZEbVEGhxZfd FSvol328CBY9GgZyQFFvem GkeDplxM6jEnSjHZC6SODz NVxwYXJ9 CLINICAL HISTORY (test p9rxrEKfFTZebYD9XnQkSC code = 3356) Ehl2dtm3LvyHUflBCyNNmu oUAqviXaxz81nDT7aO29JA 2yTKFpAwR6MOVvftB6Nqj2 BLUmQEKadUGpJ628b2qni0 jvkxHboWX2wCplOQQbnmoj VwZ4MBbsKKHpuyqkEGd0WT vdGVYtyAC2XEYwxSXxR2Uh RGMsWV0qeei0ZBM2EXusBU DhRtY3LIOssDHjYQIepOlr XDxcl236KFG6DoNpZPXzjp DqlGixkC8iAcTbWCJvYVZ3 Ym3gVA3dSO6ujUJcirpwxk RchrMlmoUlemAuupT9GWLa z1t0hOWIQBr7JS6vDHjZGP MtwkJgSxynwL9dnMloeZKc VD72rS6fbFTtu4JqnLGzUK dawPpbjwBkcfMyJEbrqJ4z gLiiTB6qSxR8GNeefuOaFT JhRHVsgS7mEWMmw4vpelOu YmRvbWluYWwgcGFpbiwgU0 4VCGXowEseoFhcSHLaTY3m u4BfxrKySGJvFFVdE3MiKO Hge8BmOHA4txCwTQMvOHC1 qAD9h14daSwgWKHwNL6oZR IpUVfvVKWnLXalLB7wRENl wmBzB4IuFR4fu5Ltj8y+b2 5ogE3zO6mkG2irYFE7 GROSS DESCRIPTION (test q1hzjIRcMEVhfROPVKXaL1 code = 2669475597) opmrBzAUFtsWViV9Iyeiwh UUuxQP5lQN9hsCjsoFXdzE CcPI0FEBRtTdXdXCTbcZGg riNlUsBwCVVsfCAfrVP4TQ RkRB2hoxivWWumRKbpLBFn roZ5FSFqwDRlI6YdPUSzKB 5bsvekWSY5ZOumzL2gsqLF NjjhVr9utZEeiTouTwZxPm NoYXJzZXQwXGZuaWwgQXJp VQr7bX7YLcmqKFW6EJJHCf blBDUqWG5Tv0nvZCWaeOXg OAJ7OUycaKSfKLKbKNIrDP z0DYWmFWncgNAoPQ7jdYuy UvvygUksj5ByeFSrUDmlMQ QeMCViESynOQLjNO6GUoJi ELG5IOx5KVLpBXf4IXv1QX 6NPtVjARHjXCX1YCI1DxQp GSc3BZnlAU2NFHC0KMV4LN nmLaM6IPC0KhVwYJGhObWw XGYgQXJpYWwgXFxmbCBcXG 4haMapeIMcvcQLYrHOWBA0 aXguXHBhciANClxlcGljTm VzdERvYzEgDQpcbHRycGFy XGxpbjBccmluMCANClxsdH SqoJkpoiAcASBcZ0DrisDc QXugYBObts1qmRmvDXwwDo XlMZYxd6k2dWM4jUPmcGI7 gWIhyNehDoSbLB9qtPXnZH 1qMNwaYKytvhJoq0QjHH85 bWJlciBhbmQgImNlcnZpeC IgaXMgYSAwLjUgeCAwLjMg fDHjIvYjS25blKTbPHecGR dxb22bxAH9tTQekRWhOwCv N27uijKmOAMgqDohNYF4oK XsOWNmz23nNUB7Vi2jjUXy HPRigrQ4k1GbUUqcHQTbQw waCEVaGOypoCQgNJ5GX4cv iKWvFBFDuhD7dzbzVAfYBY BMNGRzJZYVKJcxoKvtjR9u XCouqM0mXP7XDWIwSVhqXJ XexOSNNLM4EI5bPIogxTYf wvtgUCNwG6UbM7JyunJnjV ScJIMbccBes8hnKKW0PUMp pLOkkBNhUiOrZrjfBEP6RF rdx6wmKKK4OEArlJWojEOx VVfnVpRbCqlkZTOvD1CnQ8 MdmkK4NQr3 MICROSCOPIC DESCRIPTION a6jlmTLsVJXoxTV8SpTnBN (test code = 3371) Kfy1mfn7AgsGVuyKRpMOfw lNXnxlSoma37lKK8nG39AI 9oOOKqFdR7GMFekaE2Edv3 NZRtCVZwqXWfZ390b2yqc5 agdrGujQD6oPjiVTUwtnzk GoK5SRguBRLifurrZMs3WM veEIFguLN7YCZauHPjN0Zu VMAfDZ7uffd9TMN8BXzfVZ AwNdG7ICQoiUTgZUTrjRfp MKcro794JUO5HeWgODTzes UlnOdiiC2oHpWqHEVAKFLb p2HaSDBjDQYone8= SPECIAL STUDIES (test w5iqcKHyJQLkg8hhVPDlvA code = 3376) FuZzEwMzNcZnRuYmpcdWMx COsexfFaUKgie4BiL1JvZh AwMFxhbnNpXGRlZmxhbmcx SEQsYTY5vlHqBEAgMPfmBQ NtEWxcAb9vqGJmzCdqNmIm WAYtk7lontRHbhpeaGn9e7 lhUJLkUfQ3lPKgLUffK0dg blTugXMmO3TfnOLuyXq1d3 vyGmBiNaP2zPRxDVszJ3gt tpGvaNNmVMKkGUz7vT19YQ SsmA9cxXBxKMfnkjSjXtD3 QCjuYZOdMqC8GJVsqVFlZQ TtI9jbOCGlWOfaPNLvOLws uSVbBHC1nBdzn5W4wWXatE JltTcxCvNfSrIiQwUBp2Mf DAa0rBnkU4NfVQIyCtW4uH QgUGFyYWdyYXBoIEZvbnQ7 aBqymjOls57weEEuSCVzJX XlOmPesOscRGZjTRCLh9Tp nNbcTEX0uOf5mBnyTndnUE J4Qkq9FR1dgb49cat9tHit KQEbbmrrHdH1HNclELZnxw vdSZf4ZMusJEGekVS9QWHg mBSzX7ByOJGzGE6ecno9YP J5YWtoXEHrJtW2XYPvpOUo MXGvmWijIZeum567CUK4As YgPC5xO8Hcl3L9bO5wcCBf DIOgxQApOyBwLFQouk2tjI QoVRepa2QiHFA0wzA2zUAd hZGyXOKbOR31Wmzim3ImNv nqc0PhX05xgCY3TKcct6cr ET0zReY2rdArSNwbz8advV 6rIlH6JIbqLP6vGO5gBPGt xT0vxnqhKOFfYiIcfobfDW IpdOqykcZzBy9oaVldFHU3 DVsqY4kmpC8hZgZ4UZmqX0 wjcP6dCNs9CBmtbNU1RHWt tO6qGE2onsvpv9zcETxgGA zhTJRmjfW3vdS7WRAobNZg I3CpkM0nZGZeHY4yidoom7 sqPMQ4WLmmMLUsGII9NoRm WVTpt0Jagce9FpInr1LxlC FrCJbyE12zp376AKVoilDc Z3srpMYaxulfwWRhczaeYK xyikT6DETbQFUbDHucOFSn XGZzMjJcbGFuZzEwMzNcaG ljaFxmMVxkYmNoXGYxXGxv M4xkRoOxI5GfAAIpHwGaES xqZIfmkEYrnEMmaUL6qS9a JC0lZNRqyDJmB6PsRBLcuf SsxTBzASV6uALumGQkSM8t NNcbiXYee1myr7KgZ1aaoM ekrBO1EG1eFGLhPJUrRDxf p1GzsG7sLjrgsQVpmdagAM xmczIyXGxhbmcxMDMzXGhp M8ioBhKbOJKrzMzwFTzup7 NoXGYxXGNmMlxmczIyXGx0 cmNoXHBhclxwYXJccGxhaW 3zLfXaEgRjBazvHR7aMHZr D2fdzHKeUQXqWJCoQ5fcLo GubK9ckSiwLCffJsVwIzYf MaYYb679gr4oGEMbaLMaqy VOaGCcyQ2dGOxmCNerBGkt iYMkYPbak5dhZLWkj3u4mA KuNJFaaaPib8xuKZyrvqTb PGMygBSvsHRxQBHka04bLW itmPtwhHpyALXrd3UykVdv i1JbXiHaVMntm7OxQ45aoW JvbCBzbGlkZXMgcnVuIGFs g48no3tnEUYwFrD7xEVbaE E7zNVkhYZmv1IsdTjdQKKn v1xoHAFdhp6rglnlxYRdk2 XuzX8nkpszMDiqdUNzriRi CUBqc2v4uEXkOJCxZJEpRD xutAz3IDIam296rw8uggG0 zBYoTOF8ONqfYJJgOQIoii UgZXZhbHVhdGVkXHBsYWlu XGYxXGZzMjJcbGFuZzEwMz NcaGljaFxmMVxkYmNoXGYx RQqxZ4ixIeMmK1IrMBNtHn GjhXReU5ekxEUpEYBkALdu XGYxXGZzMjJcbGFuZzEwMz NcaGljaFxmMVxkYmNoXGYx SPzbH2nnExQzV9YeCYSaXw IgIFxwbGFpblxmMVxmczIy UQkrdlpxBJAwZOhaJ5wiOt CuNCMtqQjoDSlkl7RsZUUl CPMxEpugloNgTYx2dtDvQT BhclxwbGFpblxmMVxmczIy TImsgsqeQFNvYLdoN7vsTe EbTKOumPktNNuyo0LrRGRi XGNmMlxmczIyIEltbXVub2 egp5FbG3vlkOwurBL9YHLx A6pjrTRrnVS6FJO9pW8tVD mujgRwJVNjq3ZuLKJnSLDr OzZ7zZ5yFND3IeRXpEpxTR BsYWluXGYxXGZzMjJcbGFu ZzEwMzNcaGljaFxmMVxkYm WjNQTiTUdnB7cwZnGcQ8Lh POKbRqCbgDeqWRiyTFr4Ai xwbGFpblxmMVxmczIyXGxh rnidUEDmGBquE2abAaJnAI UzfFjgHZkpo0QlVEOdWAMl MlxmczIyIHMgTWVkaWNhbC MGAP25NNYuIXBzsHkyyZ1f lHOOWMHrimG3z5P4VBtsSN ItWGp6URlicnBxCCHyeY5p YUHiEB2rOYi2xiRfOUDvo5 SaUK9yUAVnlSWgBJO7SZAp e1TuA7Vtg6KqXXYkLROhxe 1ljsSjWwJCjRPeSXJbtg92 CMQhKS3gA5xhJYNfINHhzd FfwYHxe8HvXSCsaDZ3bCHo MW4ENfXAh39zXBSlTEUIvb DfUQMixMtboIL6zgP5rA9z LiBUaGUgRkRBIGhhcyBkZX Wixu6rrvZfSIJjCRHma4Ei jEHpuHAaloAgL6Dbo2YaGC Oonl35IFyzhGCvqs89BP2r U8Wmd9TyvZ7aJKflZHTwj8 SdzFFlkDNuXGVoy4RbD1td asqtSJlvbISyxD8xZWViTQ x0IMCpp9XjXFCfe0EiNqQf epZeJYUdATWoHBZcrJ43WE C6tRofdRncekTdKW7pATXq ryNgZDKmVNLgtL5yOFkgqz JhAIXsovH8u2C1DUqdFSIc inIwRdmbAJI3xzNzthW4mM LfM3bxwzklTWqaYAVji1Gg oZ5zqBOSlONzp6VkpAXkxY PPyXQhHT1olfVaDI0cZRN7 ODggKENMSUEtODgpIGFzIH X5HPdlUlhoJDA4nkMzJAJu k6AmYDovN0ubA39psLbxxR p0zDJolTbdlYPffKOaYTUc enD7j7F6PNDiq7AfjzohRB BsYWluXGYyXGZzMjJcbGFu ZzEwMzNcaGljaFxmMlxkYm OaHSBrPVzuQ9cdJtUgHkYb TsbaPHU1uX== [id number] 16:47:26 Test Item Value Reference Range Interpretation Comments Case Report (test code Surgical Pathology = 104) Report Case: [id number] Authorizing Provider: Nathaniel Dooley MD Collected: 02/26/2022 04:38 PM Ordering Location: [address] Received: 02/27/2022 07:57 AM Service Pathologist: Gene Carlton MD Specimen: [employer] DIAGNOSIS (test code = t1ganOBjIVYji5wbXAAkzM 3220) FuZzEwMzNcZnRuYmpcdWMx IHtccnRmMVxlcGljOTYwMl grwqOsEBCnjBVuE2Prblcj RZmpJY9gVY6ixEfroZJxtD GaGOPrXnIin3wxw302nEUa c9jrXEXPobrzqKy9vUcsU6 3pw7T5NcymF22npWKuPQN5 IJCxDNZjxGGpPKSjWLU4FJ LkwJHkB3ukFPAuUB1wjlzr BJluUJafMKDsxHS6BQGstO RbS2FcLPZaBKvqQUCeuhh1 WhOlIu0btYPurLqlGAgxEY OhRSEtTNuvJNCaDoDhT8VJ XdhNOHUWHPJQSSVLZW5RK1 z3QYLajfa8EHMtKKHZGCXP IvETD8iKFNLEVmZBCJLMTA DjK1AjL7XQMR4VGDKuF0OM HWZNSCVAIO3LHGFdOAIsMG Aon72xPG76WQldUGM6f0ow dGYxXHNzdGUxODAwMFxhbn NpXGRlZmxhbmcxMDMzXGZ0 bmJqXHVjMVxkZWZmMHtcZm 6grFZwgQeuInSfMEAva2em saGUbzqlyEf7f0gvXKQhWq Q5pHTxZVltW5ebynQmoLHp HWJhWCp4dV64TWIwsV2xbH XrXQislpGmJrX8ILcpUWCs HcV3XCThdGSgPVNmB4tkTT QwXGdyZWVuMFxibHVlMCA7 eRfvf4F5oZTlmVNuqXtxYb OjHtPoTxYVf5DjNQq7mXxo X5JtGCTrDnE7ePCzYJOoNQ dqUKBbJRQvwqS8hA79EJuc jnX2hLCuy2Pvf72aq285gM 3qmDEfYJO7SWAmVPThxGJs OCYlVEL0YPJcjBIjM2diPW IaHN2zcmuxQVxkWWmjIABm iXL9EXJrnSEpH7PnAPFoGQ jpYFIlvuu1DgCqDs1phWRf vPqhOFwjs3uzn2ltrGWoEg t5OCLvRjQqUuxnQCdfr1Pr q4myNXVpzh6qMYJ6jFXscA uev8L6aRQrZZVoxTQnEQMd LR9lbOXoFGBxqF9zsuctVE BnYnJkcmhlYWRccGdicmRy Pn7pzEnfMYL4LJvxE1yolJ 7fAlU3NWmuS6vfqH2tNJr3 HPdhAKQcwKD0axZ0CTStoK KvZ1DcrG7fJUVeBN9vtpx4 d1qhLGZ1JSavGBClLtV5lx A3PDWncGZjZZFavHumGHml n578XXR5AjCzPLZaf0IdY1 XauPynL34hbOxdF27oHYPy tNcerG7koVkpuJ2kQvOpKx CjWBzbmJrcSK3hCESwY3ru uGItANFmYAQeV9ffFjGxnW 5waVykKHhfyrAkCTYeIxx7 UTQutALhVCCbQuz4NRMfXT BqY51jhdftPNZ1gY9xf2lx z2ZzXHvhWGL1QFIzf65jPO kbrkR2AXxaQh76SBnwWFJ0 FFvvOZY4sD== COMMENT (test code = t2rcnWUhAQLzyCF0LtNsTY 4948) Ant4elk7VifIThkDJpRBze cICzefClgw93nLK6vN17HF 8dQCZnLeM9UPYhdmK2Lsq5 ZGGkQFCimPHgB532m1cld9 glccWhtYY3gIvwGJTtaikf IzC5ZGuvDKLzfkpzTCu2HQ puHRZeoWC5QJArhAEaC4Ad PXPaYM6fcxp5BRR0MJumYF CsMmF7OBHsbUCeTMWdzEhm GVckm394GWG7ZbHwSOApfv UlxKmxgF9zTxWjFGTGpZGs fMJ7sVBkrAoeHRoij6Fxyu fof2IuS7ModqxwGPxfaCBg azOzlaYxl0YeHP8wNJhjML J0pH3cHRCcb4zsULRtD4Ha GO3oL2Dik7tlCGRna3enkq DzGWR0fYPjEQJjenGadjVc PCM0dRGmlSWorSOtfLPybZ Khg3QlnHC3mkLrubZnfBZ3 WVQqc4TwtJ56HHOqm42hKT Bhcn0= CPT Code(s) (test code x4ermNPyDOYsjGC7NhLnJF = 6448) Ers8txe5LqvPNhnXXgLOkt cOBnlpMtja46kMJ2dA49XY 2aOXFxCmW6YNDhpcN4Qmv3 IGSnZUCmtHAlQ824i5urm6 ewgcJmfKE8cPwqYRIrviya AzE4FYrhBFYkruilEOf3YI tbLYTdxCD1VDUnaFUoJ3Qr UNJcNY6ampu9EWR0XKbfRS QlDuB2CSHemPNcUGBnmJdc XDovw740SPM9JpFvUJHsfu WmmOzrnG3qLpHlJGS1XPQn NVxwYXJ9 CLINICAL HISTORY (test l5kylKXzZYZcuSO2XnAhGS code = 3356) Yyw6iip0BzuHBifHUkLInu zSXkmqPfsl98kIJ3cK03MT 2aYYTcXrR0WXGivmT8Jmo5 BXRxIZInxOXiL794c6oki7 cxfnLqnUF5yEdwNTUiuijg InW0OJrcWBSrviaiSWv1ZK djAEAjaRH2UAOryAEpU2Rm DYEhCO0qcwg1AKZ6CWuoVS NxYeM5TWKyxRJmNIEoxIdu KGqjt301FEK4VyOwOWNdou HlqNvvoR1fMyPjQHOoAUE5 Cp3dDZ4wTV6kbRJttbcgvx QzzrFqvvPuvhDimcJ8RORf e8k0sVAAIHh5NU2xYYkXEE HxnlOmSwrayR0ziJxdyODx TR72bN6zwPXjc5OdiRWhYS remJyxxaOybrYcVCgpwS4j hJmoRQ9mLcA0UCblpeGuIO MrOSJqqE3vQQNrw6dqugPb YmRvbWluYWwgcGFpbiwgU0 0CBAXhvZkhxUkaYKXgAH8n o1CavvGfQKYbSYKoL0SqFI Kva0RpHYW5enCeHDOsYJZ6 jNC3j81wkEztBZBpEL9hAM XpEFsxJWPoTNdbSR1aTHAp dsHbO8ErZT3mr9Rlp0u+b2 0afQ6cF4bzN6faZMW8 GROSS DESCRIPTION (test k5bewWYsCXGllEWIWHWzP9 code = 8100788877) agjhQjTQEggZVcT7Wfqsyk LRnaJL3aJT4vyHlvaWXfyP FcYJ9XYSUaBrLzENQwwQAr ggZrBvUcVITpcJTysEG0YM GiED3ckprgGIvrEGgpUGRu zdL6NQPmuZOwX9CkZPDbDL 2xiplqYOA4UHcehL6rygAD QazbQi9xtSMthZiqVhEtQh NoYXJzZXQwXGZuaWwgQXJp RAl0qU6KSqspGLG2PYMDHa ckMCWrEB4Qz7xtIGDbvOEs HAM8JJslpVFlLUAeGSPmCN r7VBEtUGjpoECeQV3mcEkr TdqgeOezw5PwsYRmKJcvJJ MqGRMrDLylDYDhNP3BEgXx MQT8LMp0MQFhWYb5EYc9RC 8GGtLgPBStLBQ2JKD5LdWd ROc9DFzyCU2KCYW9CIT1VE trDqP1MYS4VmFnYKDbYrFt XGYgQXJpYWwgXFxmbCBcXG 8xqPtzgVSdpzMFXsBNIIK4 aXguXHBhciANClxlcGljTm VzdERvYzEgDQpcbHRycGFy XGxpbjBccmluMCANClxsdH TstYumlzGwZQSbJ8GynrBs DIdkYWXwyp0edHwoFZpdQu PpCDLuy4u5rSO6fPAeyZI8 qHGwvHvhNqTbLV7pyCXpJK 6dOBmbPGqbiaVyg0UdSE51 bWJlciBhbmQgImNlcnZpeC IgaXMgYSAwLjUgeCAwLjMg nDBrCwOfX39veNBuBGafGH nys18vtXC8kEEsmUDdHkNr C02hdbNuBELulLaaXQT1gS GmLOCrh24eZGM2Oe2rxFRb MZDosiW5n7MvMYwaFHQuVo xkVLEkKNmyvFHdEM2VR8od lGHsDOPRakR7luihBGkLVI RERZFjFJIXCVecaOmdtD0l TIdyrE1iEC2IAYMlZZomDP KpgPUEVKW9GV7nQQastEHe jjckXBKyH4GfR6VofeIiyX SyNXObhqMhm4ecNII8DXLd jOLniZMlEjVcZofoWZT2QG utr4uaNXA0DDTeeWSdgBPu CGmlRlHsEvoaKBGsO3FjV8 HsclI0MNv1 MICROSCOPIC DESCRIPTION l4tfnQQnQTYdvDP7ZpHjLB (test code = 3371) Dse7ylh3QsoQIdkQGwPJuh xSHsevCniu19lOK1iC07FW 1jAFEkFaW6LNBkibF8Skr2 QYZqBHCddEHxD563r6ilv3 dkpmMagZE2wYsuPHAtyosb JkM4IFgkYFBmdihsSDd9JN xdJBIksOV9PIWipLFxX1Kg XKViCZ5kkaw7HGE3ERnpFP QxTuX7ACTvvQSeCQVltJqy QFppt588SQR3PjKgOHSget NmqIynpA3oAnJdSPXLKPPm n4QgSJKcKNUeam3= SPECIAL STUDIES (test w1qtiHMpSCIzl9yiXVNgsB code = 3376) FuZzEwMzNcZnRuYmpcdWMx LZvbgaUlVHtqn9EiP7BhUo AwMFxhbnNpXGRlZmxhbmcx OBOjLNI4diDkKQGuIJkxBP CfTFyjIn7mpDItwWmxAwYg URFrq6hnvlVAhxgqmEe5k3 knKVOzSvA5xGBwXJisG9vk ibJocBLzA9ThdHUxtQh4j6 wwNfRlJyP0uHXeHSmpT5xu pkDogNJzWEVsJMv5oF43FM HyiH4nlMEjAUibudDiFcR6 GZkaZKDfGiR4CYNnoJLgIK MaL8omBSMqLWkqZROeJHuf tWNiADF0eNiky6T2uIIhmD XfsGuqWrToWiDsMfSBk1Vd KLn0uUigG0PyBCXeEnM4zS QgUGFyYWdyYXBoIEZvbnQ7 nXqtuzDbo26xiBFqEKCqWM QuEfQxkFffYPAxELJUj4Ma jNsjTBD5aVc9tFrbFilhSO X5Fca7GP0mec73dlr2aRga SSEnbvjxFnC8UAysHXBvry gvAMs3UUdnUJOsaZG3KSJy qJJlH4IyQVBpII4qorj8BC A8RBtqJELvStD7JWXwxXMi QOJtcFphCCche203GIX8Iw CaTN3lD1Qso2M3lL3amTUs ZMVvaYLmNfLpNTBjvp9lkP PxLOmjq2UsARF1vnQ0hBUu bRXnUZHxBA22Hmdnm5QoZz kmm1WtW86ffZC1KXzqg6np NB9sWyX3ozYoJBpys1mvtA 0aSbM8IPsaKA7hLP2eDGKf yT8upjyfLFGeJxMvkutaIH MluInxbrPuOk2soTrrVCS8 HLgcX8kuwB4hDsK3JJsuB5 luxY9wJDg2XXwfaUI6ZTZi dD4rHV7nkeapd9enXGuaYY fsUANvfcA8jvQ4SLBznVMq O0OfoZ9sTDVrQK5cbzvej7 hsMZR4WJwbRZXkSVA1WbXs NPPls7Cvfsm4JpYqe8TmoC LcQQmqU76ag813GSEtewOb F8objAZaalfnwVZplsgzQK dvbuB3YVTpBGMzZVqbJRBn XGZzMjJcbGFuZzEwMzNcaG ljaFxmMVxkYmNoXGYxXGxv U6cnBxViF2ZeNVLiEmCxJH dyJMcwaSDpfYQenOR8zZ6v VY7hUZEnfOWlK8QdUHUxtb FqkNPnUUI4nINbyFEmQA7z DZurvUVsj2zuy5ZgA8yplB kcvMG2HP6sXVEiCYSoPSes x1AhlT1bWtjywYRyrosiRQ xmczIyXGxhbmcxMDMzXGhp C3bbNyBlRETdgPwcLXzne4 NoXGYxXGNmMlxmczIyXGx0 cmNoXHBhclxwYXJccGxhaW 9lBpZtFdTkYzubHS8dTYYf P5uqlGLpDJDgEXQeF2gcNg ZofP2iyIayIKvsLfYrApCq BxIQu588vn6oCEAinOKpxq NPjKPxnF3xOEzzDJpmNBmc hROnZXrig7tzFDVzr5e5uE YeAAUzgiRnh7tcGPsbmjBx TIGkaNFycLYsKSGtb10qBY fufPszzNjhLVQfg5KepDcb l6SpXcXzZBfmk3MpG27rqS JvbCBzbGlkZXMgcnVuIGFs e34sp4cmFCZgPyO3jYJefA O8xFWkePLyf7ZbmWbzGCTe m6mySFQhhd1xmywmyXGpb5 CcrY2zooziKDsaqAAbyvZt VOSwm4g5uXYpMDKkFHFmJR entCs5FSQwk571nd3hztV5 zHAkIWK9RVooOJTyKDUuzq UgZXZhbHVhdGVkXHBsYWlu XGYxXGZzMjJcbGFuZzEwMz NcaGljaFxmMVxkYmNoXGYx DLtrM9dxSaPyJ1ZiPYJtMp ZbdVLcC3qnyBPvZZTvOUhm XGYxXGZzMjJcbGFuZzEwMz NcaGljaFxmMVxkYmNoXGYx ZIdeL7eaHiDnG7EtHJZrCa IgIFxwbGFpblxmMVxmczIy OAlvekvuNLLaBTftB0exRf UyPGLftJubTDmum4CvENQw VBKxMxckjbBcHOh2xtDyWQ BhclxwbGFpblxmMVxmczIy YLthzykfRPCeUEpfO3toTi FmGYRytGrkVKiqx4DpOACe XGNmMlxmczIyIEltbXVub2 gzf0XgH2yvkNqxoWY7RNRh B7yfxTOkuKC4TGF7tO3nYO dvurIaRXMtr1LyTNSrGPLr ZcK3nZ2cBDH0EyYGgLatSE BsYWluXGYxXGZzMjJcbGFu ZzEwMzNcaGljaFxmMVxkYm NcWHVwUFbrS0ixRkOkO9Ne UXGeDvOcvTvqOVnvXBm7Ps xwbGFpblxmMVxmczIyXGxh naeeJJHeZKxkY5qwObWkKN PqzYulJRdcp4VnMQMsJTSd MlxmczIyIHMgTWVkaWNhbC CJGW15MHBsQAHjvTspxC0g vTHOLMSgjuG6c5U5DFwzYA SaHJw8LXerusTyPHBacL8c YDQhIS8kWFz7aqNaKRFyx2 DySL6uBZYxhAAsZGQ7ZNEo w5GmM2Lhs8NpNHItEKDmaa 5qvpZuGtOZlSQjQQTcwo76 NANkZJ1mD6idCWYoZRWjdw OgnQEff8XtEKCrgXE5kTKv NT7WKmYIk15bPZWxXCMMjf LxYBRmnRpsmZP2oaY0qS2y LiBUaGUgRkRBIGhhcyBkZX Cwyv2miwDcBKNoUQEnn2Mp nROywTIlstWwA6Acg1NmPN Lrkn52KHkarEFjwd81CZ4w B9Ocd2FaoL2gHMljJBFnz6 ZrqARbqJYuDEHgu9WrL0ig nckbLHchtJCfmB7dJNTrLQ b8NNShy6WuVLJom0ZkIiVo nqQoBNEuRZVsBZZgaR26NG F5cRhzsVlvrnEiJO4sRAQh qtJvEEVzGRYgtX5iDCgkgj TyAVUajpE6e0K0QFsjXCDq foWyMxtfVOE1vbTiwdG4sW DvH5yhbmstPZeaKMOci6Nq zG9wsKETuGXol1MziLHgfW XDrCAaNL5ratWvZV3oGFM9 ODggKENMSUEtODgpIGFzIH X5RYdiGqzcHGK3cnNtMKYp t2PvQTshQ6itH64tyMohoH z7iDNppJgwgPDeoCKdHAIn coF9v6E4GKAud6XgrohtFI BsYWluXGYyXGZzMjJcbGFu ZzEwMzNcaGljaFxmMlxkYm PrLCRgSAawU2ohLlAcIeLy IwuvQYI1hR== [facility] [id number] 16:47:26Surgical Pathology Report Case: [id number] Authorizing Provider: Nathaniel Dooley MD Collected: 02/26/2022 04:38 PM Ordering Location: [address] Received: 02/27/2022 07:57 AM Service Pathologist: Gene Carlton MD Specimen: Cervix CERVIX, MASS, 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 The tumor shows focal necrosis, however, there is no cervical stroma present to evaluate for invasion.[id number] y.o. female who is incarcerated with PMHx [...] evaluated Immunohistochemistry technical testing was performed at [facility], Pathology Laboratory where it was [...] to perform high complexity clinical laboratory testing.Prepare [id number] 23:54:00 Test Item Value Reference Range Interpretation Comments Unit ABO (test code = A Pos 7669972) UNIT NUMBER (test code = [id number] 934-0) Status (test code = 8701669) TX_TIMEINCHART Blood Bank Product (test code RED BLOOD CELLS = 2263) PRODUCT CODE (test code = I7438S82 933-2) CROSSMATCH (test code = 2264) [facility] [id number] 23:54:00 Test Item Value Reference Range Interpretation Comments Unit ABO (test code = A Pos 0107333) UNIT NUMBER (test code = [id number] 934-0) Status (test code = 0426315) TX_TIMEINCHART Blood Bank Product (test code RED BLOOD CELLS = 2263) PRODUCT CODE (test code = S8204W77 933-2) CROSSMATCH (test code = 2264) COMPATIBLE [facility] [id number] 23:54:00 Test Item Value Reference Range Interpretation Comments Unit ABO (test code = A Pos 3574464) UNIT NUMBER (test code = [id number] 934-0) Status (test code = 2717874) TX_TIMEINCHART Blood Bank Product (test code RED BLOOD CELLS = 2263) PRODUCT CODE (test code = D3243J56 933-2) CROSSMATCH (test code = 2264) COMPATIBLE [facility] [id number] 23:54:00 Test Item Value Reference Range Interpretation Comments Unit ABO (test code = A Pos 5670901) UNIT NUMBER (test code = [id number] 934-0) Status (test code = 0990950) TX_TIMEINCHART Blood Bank Product (test code RED BLOOD CELLS = 2263) PRODUCT CODE (test code = L1544D11 933-2) CROSSMATCH (test code = 2264) COMPATIBLE [facility] [id number] 23:54:00 Test Item Value Reference Range Interpretation Comments Unit ABO (test code = A Pos 3082879) UNIT NUMBER (test code = [id number] 934-0) Status (test code = 1147700) TX_TIMEINCHART Blood Bank Product (test code RED BLOOD CELLS = 2263) PRODUCT CODE (test code = P8588F06 933-2) CROSSMATCH (test code = 2264) COMPATIBLE [facility] [id number] 23:54:00 Test Item Value Reference Range Interpretation Comments Unit ABO (test code = A Pos 1063533) UNIT NUMBER (test code = [id number] 934-0) Status (test code = 6530780) TX_TIMEINCHART Blood Bank Product (test code RED BLOOD CELLS = 2263) PRODUCT CODE (test code = Q7754P85 933-2) CROSSMATCH (test code = 2264) [facility] [id number] 23:54:00 Test Item Value Reference Range Interpretation Comments Unit ABO (test code = A Pos 4116004) UNIT NUMBER (test code = [id number] 934-0) Status (test code = 7052673) [facility] Product (test code RED BLOOD CELLS = 2263) PRODUCT CODE (test code = S3306C03 933-2) CROSSMATCH (test code = 2264) [facility] M[facility]ING [id number] 14:04:42 Test Item Value Reference Range Interpretation Comments IMMEDIATE PT (BEAKER) 13.6 seconds 11.7-14.7 (test code = 1487) IMMEDIATE PTT (BEAKER) 26.4 seconds 22.5-36.0 (test code = 1488) IMMEDIATE 1:1 MIX PT 13.2 seconds 11.7-14.7 (BEAKER) (test code = 2830741633) IMMEDIATE 1:1 MIX PTT 27.5 seconds 22.5-36.0 (BEAKER) (test code = 5179596566) 1:1 MIX, 1 HOUR INC PT 13.4 seconds (BEAKER) (test code = 1501) 1:1 MIX, 1 HOUR INC PTT 27.3 seconds (BEAKER) (test code = 1502) MIXING STUDY PATHOLOGIST Normal PT and PTT INTERPRETATION (BEAKER) at baseline and (test code = 2624804532) after incubation. [id number] Christina Ashby M.D (BEAKER) (test code = (electronic 2608) signature) FACTOR 9 [id number] 10:15:32 Test Item Value Reference Range Interpretation Comments FACTOR IX ACTIVITY (BEAKER) (test 157.0 % 60.0-150.0 H code = 666) FACTOR 8 [id number] 10:15:32 Test Item Value Reference Range Interpretation Comments FACTOR VIII ACTIVITY (BEAKER) (test 377.0 % 45.0-150.0 H code = 663) [id number] 05:22:17 Test Item Value Reference Range Interpretation Comments FERRITIN (BEAKER) (test code = 18.37 ng/mL 5.00-275.00 361) [facility] ID - LETTY GBASIC METABOLIC [id number] 05:15:22 Test Item Value Reference Range Interpretation [...] not appl icable for dialysis patien ts [facility] ID - LETTY [id number] 05:15:22 Test Item Value Reference Range Interpretation Comments MAGNESIUM (BEAKER) (test code = 1.9 mg/dL 1.6-2.6 627) [facility] ID - LETTY [id number] 05:15:22 Test Item Value Reference Range Interpretation Comments PHOSPHORUS (BEAKER) (test code = 4.2 mg/dL 2.3-4.7 604) [facility] ID - LETTY SUMMERS, TIBC, % SAT. (WITHOUT FERRITIN)2022-02-27 05:01:35 Test Item Value Reference Range Interpretation Comments IRON (BEAKER) (test code = 547) 52.0 ug/dL 40.0-160.0 TOTAL IRON BINDING CAPACITY 211 ug/dL 250-450 L (BEAKER) (test code = 769) IRON % SATURATION (2) (BEAKER) 25 % 20-55 (test code = 2590) [facility] ID - LETTY GCBC (HEMOGRAM ONLY)2022-02-27 04:46:45 [...] WBC 0-0 (BEAKER) (test code = 413) [id number] 15:28:00 Test Item Value Reference Range Interpretation [...] code = POLY) cells (100X) message] The [employer] stem which generated this result transmitted reference range : 0-2/hpf. The reference range was not used to interpret this result as normal/abnormal . Hematology (test Appears Adequate code = PCOMMENT) [id number] 15:28:00 Test Item Value Reference Range Interpretation Comments Hematology (test code Clinic al History: 36 y/o F = PATH) with abdominal pain and vaginalbleeding .Microscopi c examination:W BC: Morpholgically unremarkable leukocytes.RBC: Significanlty d ecreased in number with hyp ochromia andpolychromasi a.PLT: Morphologically unremarkable.Im pression: Marked normocyt ic anemia. Clinical correl ationis recommended.Chr ishortensia Pettit, [facility] T code 15012 Molecular Testing [id number] 12:09:00 Test Item Value Reference Range Interpretation [...] in the absence of viable organism s. PT/[id number] 08:47:17 Test Item Value Reference Range Interpretation [...] 0-0 (BEAKER) (test code = 413) RETICULOCYTE [id number] 07:50:02 Test Item Value Reference Range Interpretation Comments RETICULOCYTE COUNT PCT (BEAKER) (test 2.1 % 0.5-1.7 H code = 575) [facility] ID - [id number] AND [id number] 05:48:24 Test Item Value Reference Range Interpretation Comments HEMOGLOBIN (BEAKER) (test code = 8.4 GM/DL 11.2-15.7 L 410) HEMATOCRIT (BEAKER) (test code = 24.4 % 34.1-44.9 L 411) [facility] ID - [id number], [id number] 04:24:58 Test Item Value Reference Range Interpretation Comments CALCIUM IONIZED (BEAKER) (test 1.05 mmol/L 1.12-1.27 L code = 698) PH, BLOOD (BEAKER) (test code = 7.42 1810) SARS-CoV2/RT-PCR (Asymptomatic ONLY)2022-02-26 00:54:18 Test Item Value Reference Interpretation Comments Range SARS-COV2/RT-PCR Negative Negative The SARS-Co V-2 (test code = target nucleic 04363-1) acids are not detected in thi s [...] revoked sooner. Fact Sheet for Healthcare Providers: https://www.[employer]/Documents/Xp ert%20Xpress%20SAR S%20CoV-2/Fact%20S heets/302-3802%20S ARS-COV-2%20HEALTH CARE%20PROVIDERS%2 0FACT%20SHEET.pdf Fact Sheet for Healthcare Patients: https://www.[employer]/Documents/Xp ert%20Xpress%20SAR S%20CoV-2/Fact%20S heets/302-3801%20S ARS-COV-2%20PATIEN T%20FACT%20SHEET.p df Lab Interpretation Normal (test code = 79551-8) [facility]-26 00:54:18 Test Item Value Reference Interpretation Comments Range SARS-COV2/RT-PCR Negative Negative The SARS-Co V-2 (test code = target nucleic 11592-1) acids are not detected in thi s [...] revoked sooner. Fact Sheet for Healthcare Providers: https://www.[employer]/Documents/Xp ert%20Xpress%20SAR S%20CoV-2/Fact%20S heets/302-3802%20S ARS-COV-2%20HEALTH CARE%20PROVIDERS%2 0FACT%20SHEET.pdf Fact Sheet for Healthcare Patients: https://www.[employer]/Documents/Xp ert%20Xpress%20SAR S%20CoV-2/Fact%20S heets/302-3801%20S ARS-COV-2%20PATIEN T%20FACT%20SHEET.p df Lab Interpretation Normal (test code = 85368-7) [facility]2022-02-26 00:54:18 Test Item Value Reference Interpretation Comments Range SARS-COV2/RT-PCR Negative Negative The SARS-Co V-2 (test code = target nucleic 69252-4) acids are not detected in thi s [...] revoked sooner. Fact Sheet for Healthcare Providers: https://www.[employer]/Documents/Xp ert%20Xpress%20SAR S%20CoV-2/Fact%20S heets/302-3802%20S ARS-COV-2%20HEALTH CARE%20PROVIDERS%2 0FACT%20SHEET.pdf Fact Sheet for Healthcare Patients: https://www.[employer]/Documents/Xp ert%20Xpress%20SAR S%20CoV-2/Fact%20S heets/302-3801%20S ARS-COV-2%20PATIEN T%20FACT%20SHEET.p df Lab Interpretation Normal (test code = 51837-0) [facility]2022-02-26 00:54:18 Test Item Value Reference Interpretation Comments Range SARS-COV2/RT-PCR Negative Negative The SARS-Co V-2 (test code = target nucleic 89047-5) acids are not detected in thi s [...] revoked sooner. Fact Sheet for Healthcare Providers: https://www.Ymagis/Documents/Xp ert%20Xpress%20SAR S%20CoV-2/Fact%20S heets/302-3802%20S ARS-COV-2%20HEALTH CARE%20PROVIDERS%2 0FACT%20SHEET.pdf Fact Sheet for Healthcare Patients: https://wwwAdLemons/Documents/Xp ert%20Xpress%20SAR S%20CoV-2/Fact%20S heets/302-3801%20S ARS-COV-2%20PATIEN T%20FACT%20SHEET.p df Lab Interpretation Normal (test code = 29519-6) [facility] 00:54:18 Test Item Value Reference Interpretation Comments Range SARS-COV2/RT-PCR Negative Negative The SARS-Co V-2 (test code = target nucleic 96537-1) acids are not detected in thi s [...] revoked sooner. Fact Sheet for Healthcare Providers: https://www.Ymagis/Documents/Xp ert%20Xpress%20SAR S%20CoV-2/Fact%20S heets/302-3802%20S ARS-COV-2%20HEALTH CARE%20PROVIDERS%2 0FACT%20SHEET.pdf Fact Sheet for Healthcare Patients: https://www.Ymagis/Documents/Xp ert%20Xpress%20SAR S%20CoV-2/Fact%20S heets/302-3801%20S ARS-COV-2%20PATIEN T%20FACT%20SHEET.p df Lab Interpretation Normal (test code = 98058-1) [facility]2022-02-26 00:54:18 Test Item Value Reference Interpretation Comments Range SARS-COV2/RT-PCR Negative Negative The SARS-Co V-2 (test code = target nucleic 22034-0) acids are not detected in thi s [...] revoked sooner. Fact Sheet for Healthcare Providers: https://www.Ymagis/Documents/Xp ert%20Xpress%20SAR S%20CoV-2/Fact%20S heets/302-3802%20S ARS-COV-2%20HEALTH CARE%20PROVIDERS%2 0FACT%20SHEET.pdf Fact Sheet for Healthcare Patients: https://www.Ymagis/Documents/Xp ert%20Xpress%20SAR S%20CoV-2/Fact%20S heets/302-3801%20S ARS-COV-2%20PATIEN T%20FACT%20SHEET.p df Lab Interpretation Normal (test code = 16277-9) [facility]2022-02-26 00:54:18 Test Item Value Reference Interpretation Comments Range SARS-COV2/RT-PCR Negative Negative The SARS-Co V-2 (test code = target nucleic 07527-5) acids are not detected in thi s [...] revoked sooner. Fact Sheet for Healthcare Providers: https://www.Ymagis/Documents/Xp ert%20Xpress%20SAR S%20CoV-2/Fact%20S heets/302-3802%20S ARS-COV-2%20HEALTH CARE%20PROVIDERS%2 0FACT%20SHEET.pdf Fact Sheet for Healthcare Patients: https://www.Ymagis/Documents/Xp ert%20Xpress%20SAR S%20CoV-2/Fact%20S heets/302-3801%20S ARS-COV-2%20PATIEN T%20FACT%20SHEET.p df Lab Interpretation Normal (test code = 43999-8) [facility]2022-02-26 00:54:18 Test Item Value Reference Range Interpretation Comments SARS-COV2/RT-PCR Negative Negative The SARS-Co V-2 target (test code = nucleic acids a re not 1192938) detected in thi s specimen. Negative result [...] revoked sooner. Fact Sheet for Healthcare Providers: https://www.Verimed m/Documents/Xpert%20Xpress%20SARS%20CoV-2/Fact%20Sheets/302-3802%28UKJK-FRV-5%20 HEALTHCARE%20PROVIDERS%20FACT%20SHEET.pdf Fact Sheet for Healthcare Patients: https://www.CleanMyCRM/Documents/Xpert%20Xp ress%20SARS%20CoV-2/Fact%20Sheets/302-3801%69KUON-DJD-2%20PATIENT%20FACT%20SHEET .pdfCOMPREHENSIVE METABOLIC [id number] 22:35:11 Test Item Value Reference Range Interpretation [...] not appl icable for dialysis patien ts [facility] ID - [id number] 22:34:35 Test Item Value Reference Range Interpretation Comments MAGNESIUM (BEAKER) 2.1 mg/dL 1.6-2.6 Specimen slightly (test code = 627) hemolyzed [facility] ID - BSPROTHROMBIN TIME/FGE0214-06-86 22:30:47 Test Item Value Reference Range Interpretation Comments PROTIME (BEAKER) 15.3 seconds 11.9-14.2 H (test code = 759) INR (BEAKER) (test 1.28 See_Comment [Automat ed message] code = 370) The system [employer] generated this result transmitted ref erence range: <=5.90. The reference range was not used to int erpret this result as normal/abnormal . RECOMMENDED COUMADIN/WARFARIN INR THERAPY RANGESSTANDARD DOSE: 2.0 - 3.0 Includes: PROPHYLAXIS for venous thrombosis, systemic embolization; TREATMENT for venous thrombosis and/or pulmonary embolus.HIGH RISK: Target INR is 2.5-3.5 for patients with mechanical heart valves.CBC W/PLT COUNT & AUTO [id number] 22:15:27 Test Item Value Reference Range Interpretation [...] (test code = 2801) [employer] - Napvikfuugug1823-75-44 21:30:[id number] ON LRPC TRANSFUSED 02/25/22 1155 [id number] AP LRPC TRANSFUSED 02/25/22 1318 [id number] AP LRPC TRANSFUSED 02/25/22 1529Type Rnfayp4916-06-74 21:30:00 Test Item Value Reference Range Interpretation [...] from now? NOVaginitis Panel 3 by DNA Enfsj4629-84-89 17:54:00 Test Item Value Reference Range Interpretation Comments Vaginitis Panel 3 by DNA Probe VPIIICANDI (test code = VP3) Vaginitis Panel 3 by DNA Probe N (test code = VP31) Vaginitis Panel 3 by DNA Probe VPIIITRICH (test code = VP31) Wlndwcsuvx3142-59-22 17:33:00 Test Item Value Reference Range Interpretation [...] code = BASO#) 0.0 thou/uL 0.0-0.2 N Fbnhwnnxcy6082-96-38 16:38:00 Test Item Value Reference Range Interpretation [...] Seen UABAC) Urine Source: Urine VoidedMolecular Testing BC4177-25-37 15:14:00 Test Item Value Reference Range Interpretation Comments Molecular Testing Not Detected NotDetected Performanc e of the MM (test code = Cepheid SARS -CoV-2 has [id number]) only beenestab lished in nasopharyngeal swab specimens. [...] Test: UnknownHospitalized: UnknownICU: UnknownDate of Symptom Onset: [id number]: UnknownReason for Testing: Admission ScreeningSource: Nasopharyngeal SwabSymptomatic [...] add on to prior labsRetype Verify-Blood Type Rd9736-01-06 12:14:00 Test Item Value Reference Range Interpretation Comments Blood Type Rh (test code = BT) A POSITIVE Chfbbijbu9817-07-10 11:38:00 Test Item Value Reference Range Interpretation [...] EGFRCR) Estimated GFR: Greater than 90 mL/min/1.73 v1Ttfqfhus eGFR is based on the CKD-EPI 2020 [...] code 8 U/L 8-55 N = ALT) Qrufksntf2549-60-32 11:38:00 Test Item Value Reference Range Interpretation Comments Chemistry (test code = LIP) 13 U/L 8-78 N Chemistry - Afflapm6907-60-60 11:37:00 Test Item Value Reference Range Interpretation Comments Chemistry - Lactate (test code = 1.9 mmol/L 0.5-2.2 N LACTSEP-T) HGB QEP5935-13-15 18:56:00 Test Item Value Reference Range Interpretation Comments HEMOGLOBIN (test code = HGB) 10.0 G/DL 12.0-16.0 L HEMATOCRIT (test code = HCT) 30.3 % 37-47 L MEAN CELL HGB CONCENTRATION (test 33.0 G/DL 33-37 N code = MCHC) - DUP AB/PEL/SC PFMT5667-82-93 18:20:00 [facility] 1985 Sex: F Patient Name: YULIYA LARA Unit No: [id number] EXAMS: CPT CODE: [id number] DUP A B/PEL/SC COMP 14109 EXAMINATION: - DUP AB/PEL/SC COMP, - US TRANSVAGINAL NON OB, - US PELVIC COMPLETE INDICATION: BLEEDING COMPARISON: None available at time of dictation LOCATION: [facility] TECHNIQUE: Grayscale and color Doppler and spectral [...] DO Technologist: Sanjuanita Woo Trnscrbd D/ (1819) tELENA.PE1 Orig Print D/T: S: 10/11/2021 (1822) Probe: [facility] NAME: YULIYA ALRA [address] PHYS: [id number] [place] [address] : 1985 AGE: 36 SEX: F LOC: iGnaNORAR PHONE #: [phone] EXAM DATE: 10/11/2021 STATUS: REG ER FAX #: RAD NO: Page 1 Signed Report- US PELVIC [id number] 18:20:00 [facility] 1985 Sex: F Patient Name: YULIYA LARA Unit No: [id number] EXAMS: CPT CODE: [id number] US P ELVIC COMPLETE 95291 EXAMINATION: - DUP AB/PEL/SC COMP, - US TRANSVAGINAL NON OB, - US PELVIC COMPLETE INDICATION: BLEEDING COMPARISON: None available at time of dictation LOCATION: [facility] TECHNIQUE: Grayscale and color Doppler and spectral Doppler sonographic images were obtained of the pelvis using tra nsabdominal and endovaginal technique. FINDINGS: Uterus measures 8.2 [...] DO Technologist: Sanjuanita Woo, Trnscrbd D/ (1819) t.PE1 Orig Print D/T: S: 10/11/2021 (1823) Probe: [facility] NAME: YULIYA LARA [address] PHYS:KEVIN AndersonSheatena [place] [address] : 1985 AGE: 36 SEX: F LOC: SHERRI PHONE #: [phone] EXAM DATE: 10/11/2021 STATUS: REG ER FAX #: RAD NO: Page 1 Signed Report- US TRANSVAGINAL NON [id number] 18:20:00 [facility] : 1985 Sex: F Patient Name: YULIYA LARA Unit No: [id number] EXAMS: CPT CODE: [id number] [place] [address] EXAMINATION: - DUP AB/PEL/SC COMP, - US TRANSVAGINAL NON OB, - US PELVIC COMPLETE INDICATION: BLEEDING COMPARISON: None available at time of dictation LOCATION: [facility] TECHNIQUE: Grayscale and color Doppler and spectral [...] DO Technologist: Sanjuanita Woo, Trnscrbd D/ (1819) t.AMBERRHarperPE1 Orig Print D/T: S: 10/11/2021 (1822) Probe: [id number] [facility] NAME: YULIYA LARA [address] PH[address]: Shea [place] [address] : 1985 AGE: 36 SEX: F LOC: SHERRI PHONE #: [phone] EXAM DATE: 10/11/2021 STATUS: REG ER FAX #: RAD NO: Page 1 Signed LntjehRWFRUR8701-10-04 17:27:00 Test Item Value Reference Range Interpretation Comments GLUBED (test code = 80 MG/DL 65-99 N Performe d by certified GLUBED) 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 UnknownTHROMBOPLASTIN TIME [id number] 14:40:00 Test Item Value Reference Range Interpretation Comments THROMBOPLASTIN TIME 30.9 SECONDS 24.7-38.0 N *Therap eutic level PARTIAL (test code = for hep felecia: 1.5 - PTT) 2.5 times the average patient value of 30.0 seconds. The aP TT tet should not be used to evaluat e low moleculat weigh t heparin anticoagulant therapy. Is patient on anticoagulants? UnknownCOMPREHENSIVE METABOLIC [id number] 14:34:00 Test Item Value Reference Range Interpretation [...] TOTAL (test code = ALKP) TROP-I HIGH [id number] 14:34:00 Test Item Value Reference Range Interpretation [...] taking high doses of Biotin. HCG SERUM [id number] 14:27:00 Test Item Value Reference Range Interpretation [...] using aquantitative h CG assay. CBC W/AUTO [id number] 14:24:00 Test Item Value Reference Range Interpretation [...] x10 3/uL 0.0-0.2 N AG HEPATITIS B [id number] 12:39:00 Test Item Value Reference Range Interpretation Comments AG HEPATITIS B SURFACE (test code = Negative Negative HBSAG) AB RUBELLA [id number] 12:39:00 Test Item Value Reference Range Interpretation Comments AB RUBELLA IGG (test code = RUBGAB) 1.77 IMMUNE >0.99 HIV 1 2 COMBO AG/AB QLOJHZ9310-02-03 12:39:00 Test Item Value Reference Range Interpretation Comments HIV 1 2 COMBO AG/AB Non Reactive NonReactive HIV 4th Generation SCREEN (test code = Detects HIV-specific FLT58JTBVO) antibodies and HIV-p24 antigen. YVPRXIHIXR8986-08-73 06:19:00 Test Item Value Reference Range Interpretation Comments HEMATOCRIT (test code = HCT) 35.1 % 37-47 L ISTAT CORD [id number] 10:32:00 Test Item Value Reference Range Interpretation [...] Cord Performed by certified (test code = dicer machine operator at [facility] SRCIST) RAPID PLASMA [id number] 09:39:00 Test Item Value Reference Range Interpretation Comments RAPID PLASMA REAGIN (test code = Nonreactive Nonreactive RPR) HIV 1/2 RAPID [id number] 09:39:00 Test Item Value Reference Range Interpretation Comments HIV 1/2 RAPID SCREEN (test code = NonReactive NonReactive NVS49GKY) RAPID PLASMA [id number] 09:17:00 Test Item Value Reference Range Interpretation Comments RAPID PLASMA REAGIN (test code = RPR) Nonreactive HIV 1/2 RAPID [id number] 09:17:00 Test Item Value Reference Range Interpretation Comments HIV 1/2 RAPID SCREEN (test code = NonReactive NonReactive YXP71RET) DRUG OF ABUSE SCREEN [id number] 06:33:00 Test Item Value Reference Interpretation Comments [...] by scott mazariegos methods (i.e., GC/MS) at [facility]. Results of scre en may not be usedin crimi nal justice, job performance or professionalcre dential review, or infa nt custody issues. Negativ e [place] Level ng/ml ------- ----- Cocaine 3 00 Methamphetamine (Ecstacy) 500 Cannabinoid s (THC) 50 Amphetamine 100 0 Barbiturates 20 0 Benzodiazepines 200 Opiates 300 Phencyclidi ne (PCP) 25 UA RFLX [id number] 05:46:00 Test Item Value Reference Range Interpretation [...] URINE SOURCE: Clean CatchCOVID 19 Asymptomatic IH [id number] 05:13:00 Test Item Value Reference Interpretation Comments [...] allows for the detection o f SARS-CoV wzgAWWI-JqS-5. The test detects, but does not differentiate,b etween the two viruses. " Resu lts are for the identification of TUWX-LnK-5kxeqc ocapsid protein antigen. Antige n is generallydetect [...] Compliance, or Certificate of Accreditation CBC W/AUTO [id number] 05:00:00 Test Item Value Reference Range Interpretation [...] X10 3/uL 0.0-0.2 N NRBC#) AB RUBELLA [id number] 08:19:00 Test Item Value Reference Range Interpretation Comments AB RUBELLA IGG (test 1.22 index Immune >0.99 Non-im mune <0.90 code = RUBGAB) Equivocal 0.9 0 - 0.99 Immune >0.99Per formed At: [facility] [address] [place], [place] [id number] Edwige Schmidt MD Ph:[phone] [id number] 06:07:00 Test Item Value Reference Range Interpretation Comments HEMATOCRIT (test code = HCT) 32.0 % 37-47 L ISTAT CORD [id number] 20:50:00 Test Item Value Reference Range Interpretation [...] -3 mmol/L -2-3 L (test code = ALRRY/C) O2 SATURATION (test 15 % 95-98 L code = O2S/C) ISTAT-SAMPLE SOURCE Arterial Performe d by certified (test code = dicer machine operator at [facility] SRCIST) US Pelvic Transvag W Doppler [facility] Lawrenceme: YULIYA HAMILTON : 1985 [facility] Pt Name: YULIYA HAMILTON [address] Phys: Boy Ndiaye [place], [place] [address] : 1985 Age: 36 SEX:F [phone] Exam Date: 03/18/22 Status: REG ER Acct: [id number] Loc: [facility] Pt Unit #: [id number] Report #: [id number] CC: Boy Ndiaye MD ULTRASOUND REPORT Report Status: Signed Order # Category/Exam [id number] ULT/US Pelvic Transvag W Doppler ([id number]): . Results US Pelvic Transvag W Doppler [...] 03/18/222125 Transcribed Date/Time:CT Abdomen Pelvis W Con [facility] Conroeme: YULIYA HAMILTON : 1985 Sex: FIMELDA [facility] Pt Name: YULIYA HAMILTON [address] Phys: [place] [address] : 1985 Age: 36 SEX:F [phone] Exam Date:03/18/22 Status: REG ER Acct: [id number] Loc: [facility] Pt Unit #: [id number] Report #: [id number] CC: ED TEMP PROVIDER Boy Ndiaye MD CAT SCAN REPORT Report Status: Signed Order # Category/Exam [id number] CT/CT Abdomen Pelvis W Con ([id number]): . Results CT Abdomen Pelvis W Con [...] Luna MD Electronically Signed Date/Time: 03/18/221949 Technologist: AALIYAH.FV Dictated Date/Time: 03/18/221945 Transcribed Date/Time:XR Chest 1 View Portable [facility] BRYANName: YULIYA HAMILTON : 1985 [facility] Pt Name: YULIYA HAMILTON [address] Phys: [place] [address] : 1985 Age: 36 SEX:F [phone] Exam Date:03/18/22 Status: REG ER Acct: [id number] Loc: [facility] Pt Unit #: [id number] Report #: [id number] CC: Boy Ndiaye MD IMAGING SERVICES REPORT Report Status: Signed Order # Category/Exam [id number] RAD/XR Chest 1 View Portable ([id number]): . Results XR Chest 1 View Portable HISTORY: Chest pain COMPARISON: 02/25/2022 FINDINGS: The heart size is normal. The lungs are well expanded without focal areas ofconsolidation, pneumothorax or pleural effusions. IMPRESSION: No radiographic evidence of acute cardiopulmonary process. Reported By: Mat Diaz MD Electronically Signed Date/Time: 03/18/221854 Technologist: Dictated Date/Time: 03/18/221853 Transcribed Date/Time:MRI Pelvis W WO Con Name: YULIYA PHILIP DOB: 1985 Sex: FIMELDA [facility] Pt Name: YULIYA PHILIP [address] [facility] Phys: [place] [address] : 1985 Age: 36 SEX:F Exam Date: 03/10/22 Status: ADM IN Acct: [id number] Loc: [facility] Pt Unit #: [id number] Report #: [id number] CC: Narcisa Ruiz MD MRI REPORT ReportStatus: Signed Order # Category/Exam [id number] MRI/MRI Pelvis W WO Con ([id number]): . Results MRI Pelvis W WO Con [...] Technologist: ALONZO Dictated Date/Time: 03/12/22 08 Transcribed Date/Time: Renal Bilateral STANDARD Name: YULIYA PHILIP : 1985 [facility] YUL[facility]YA PHILIP [address] [facility] Phys: Gurmeet Naylor III, [place] [address] : 1985 Age: 36 SEX:F Exam Date: 03/09/22 Status: ADM IN Acct: [id number] Loc: [facility] Pt Unit #: [id number] Report #: [id number] CC: Bárbara Lemons MD, III, Joe MD ULTRASOUND REPORT Report Status: Signed Order # Category/Exam [id number] ULT/US Renal Bilateral STANDARD ([id number]): . Results US Renal Bilateral STANDARD HISTORY: [...] 03/09/221714 Transcribed Date/Time:US Pelvic Transvag W Doppler [facility] BRYANName: YULIYA PHILIP : 1985 Sex: FIMELDA [facility] Pt Name: YULIYA PHILIP [address] Phys: Livier Carver MD [place] [address] : 1985 Age: 36 SEX:F [phone] Exam Date: 03/09/22 Status: DEP ER Acct: [id number] Loc: [facility] Pt Unit #: [id number] Report #: [id number] CC: Livier Carver MD ULTRASOUND REPORT Report Status: Signed Order # Category/Exam [id number] ULT/US Pelvic Transvag W Doppler ([id number]): . Results PRELIMINARY REPORT EXAM: US Pelvis, Complete. CLINICAL HISTORY: HX: VAG BLEEDING, CERVICAL MASS. SEE NOTES ON LAST IMAGE. THANKS TECHNIQUE: Transvaginal and transabdominalpelvic ultrasound (complete) with image documentation. COMPARISON: CT - CT ABDOMEN PELVIS W CON - 03/09/2022 02:04 AM WARP DRAWER FINDINGS: ENDOMETRIUM: Normal thickness. UTERUS/CERVIX: Measures 9.5 [...] is advised witha view to possible biopsy. E LECTRONICALLY SIGNED BY: Murali Medina MD Mar 09, 2022 5:24:05 AM WARP DRAWER US Pelvic Transvag W Doppler HISTORY: Vaginal [...] seen involving the right adnexa. Color Doppler eval uation with spectral analysis: Normal flow shown to [...] 03/09/2022 10:10 AM Reported By: Amalia Luna MDElectronically Signed Date/Time: 03/09/22 1242 Technologist: DEANGELO Dictated Date/Time: 03/09/22 0756 Transcribed Date/Time:CT Abdomen Pelvis W Con [facility] : 1985 Sex: FCHI [facility] Pt Name: YULIYA PHILIP [address] Phys: [place] [address] : 1985 Age: 36 SEX:F [phone] Exam Date: 03/09/22 Status: DEP ER Acct: [id number] Loc: [facility] Pt Unit #: [id number] Report #: [id number] CC: Livier Carver MD CAT SCAN REPORT Report Status: Signed Order # Category/Exam [id number] CT/CT Abdomen Pelvis W Con ([id number]): . Results PRELIMINARY REPORT EXAM: CT Abdomen [...] with a pelvic mass was transferred to [facility] for further evaluation and treatment. Patient is currently not on any hormonal therapy. TECHNIQUE: Axial computed tomography images of the abdomen and pelvis with intravenous contrast. CONTRAST: With; ISOVUE 370,80mL COMPARISON: None provided. FINDINGS: LUNG BASES: There is bibasilar subsegmental atelectasis. LIVER: Unremarkable. GALLBLADDER AND BILE DUCTS: There is mild nonspecific gallbladder wall edema. PANCREAS: Unremarkable. SPLEEN: Unremarkable. ADRENAL GLANDS: Unremarkable. KIDN EYS, URETERS, AND BLADDER: Unremarkable. No hydronephrosis or [...] Rosales MD Mar 09, 2022 3:13:[address] Abdomen Pelvis W Con HISTORY: Pelvic [...] AM Reported By: Amalia Luna MD Electronically Sign ed Date/Time: 03/09/22 1242 Technologist: Dictated Date/Time: 03/09/22 0811 Transcribed Date/Time:XR Chest 1 View Portable [facility] BRYANName: YULIYA PHILIP : 1985 Sex: FIMELDA [facility] Pt Name: YULIYA PHILIP [address] Phys: ER*STANDING MEDICAL DOC ORDER [place] [address] : 1985 Age: 36 SEX:F [phone] Exam Date: 03/08/22 Status: REG ER Acct: [id number] Loc: [facility] Pt Unit #: [id number] Report #: [id number] CC: * [facility] DOC ORDER IMAGING SERVICES REPORT Report Status: Signed Order # Category/Exam [id number] RAD/XR Chest 1 View Portable ([id number]): . Results XR Chest 1 View Portable History: Chestpain Comparison: None. Findings: Lungs are clear. No pneumothorax. No effusion. No acute osseous abnormality. Impression: No acute intrathoracic abnormality. Reported By: SALEEM MCGILL Electronically Signed Date/Time: 03/08/222345 Technologist: LIZETT Dictated Date/Time: 03/08/222339 Transcribed Date/Time:US Pelvic Transvag W Doppler [facility] Conroeme: YULIYA HAMILTON : 1985 [facility] Pt Name: YULIYA HAMILTON [address] Phys: [place] [address] : 1985 Age: 36 SEX:F [phone] Exam Date: 02/25/22 Status: REG ER Acct: [id number] Loc: [facility] Pt Unit #: [id number] Report #: [id number] CC: Louisa Sosa DO ULTRASOUND REPORT Report Status: Signed Order # Category/Exam [id number] ULT/US Pelvic Transvag W Doppler ([id number]): . Results Exam: Pelvic ultrasound including Transvaginal, [...] 1456 Transcribed Date/Time:XR Chest 1 View PortableCHI [facility] : 1985 Sex: FCHI [facility] Pt Name: YULIYA HAMILTON [address] Phys: [place] [address] : 1985 Age: 36 SEX:F [phone] Exam Date: 02/25/22 Status: REG ER Acct: [id number] Loc: [facility] Pt Unit #: [id number] Report #: [id number] CC: Louisa Sosa DO IMAGING SERVICES REPORT Report Status: Signed Order # Category/Exam [id number] RAD/XR Chest 1 View Portable ([id number]): . Results XR Chest 1 View Portable HISTORY: Cough COMPARISON: None FINDINGS: The heart size is normal. The lungs are well expanded without focal areas of consolidation, pneumothorax or pleural effusions. IMPRESSION: No radiographic evidence of acute cardiopulmonary process. Reported By: Mat Diaz MD Electronically Signed Date/Time: 02/25/221120 Technologist: EVELYN Dictated Date/Time: 02/25/221120 Transcribed Date/Time: CT Abdomen Pelvis W Con [facility] Conroeme: YULIYA HAMILTON : 1985 [facility] Pt Name: YULIYA HAMILTON [address] Phys: [place] [address] : 1985 Age: 36 SEX:F [phone] Exam Date: 02/25/22 Status: REG ER Acct: [id number] Loc: [facility] Pt Unit #: [id number] Report #: [id number] CC: ED TEMP PROVIDER Louisa Sosa DO CAT SCAN REPORT Report Status: Signed Order # Category/Exam [id number] CT/CT Abdomen Pelvis W Con ([id number]): . Results CT abdomen and pelvis with [...] Stone MD Electronically Signed Date/Time: 02/25/22 1329 Technologist: JOAN Dictated Date/Time: 02/25/22 1325 Transcribed Date/Time: Notes Date/Time Note Provider Source 2022-03-16 18:34:00-00:00 [facility] Name: YULIYA RICARDO Gabe Casas STLSJX [address] [facility] : 1985, Age: 36, S ex: [place] [address] Unit #: [id number], S tatus: DIS IN Location: [address] Report D[address].: Gabe Casas DO Admission Date: 03/09/22 Report #: [id number] Discharge Date: 03/12/22 CC: Hospitalist Progress Note [...] She reports outpatient follow-up with provider at [facility] in [place], Dr. Stringer, last visit 2 weeks ago. She states she was seen at [facility] ED on 02/25 for vaginal bleeding concerns, and was given 3 units of PRBC for symptomati c anemia at that time. She returned to the [facility] ED yesterday with onset of pelvic pain as well as continued vaginal bleeding. Prior to transfer to the [facility] she was given TXA and 1 unit PRBC . Symptomatic anemia In setting of heavy vaginal bleeding, 1 unit PRBC given prior to transfer to [facility]. Patient also given TXA with marked impro vement in vaginal bleeding. Closely monitor labs Transfuse as needed Pelvic pain 03/09/2022: CT abdomen pelv is W Con with findings of masslike prominence of the cervix. Follow- up Renal ultrasound unremarkable. Patient given Demerol IM by primary team Continue Bend Hypotension Baseline BP maintaining 99/50 since initial pre sentation to [facility] ED. Closely monitor vital signs Continue IVF Chronic Constipation As needed MiraLAX, Colace Monitor I/O UTI Continue IV ceftriaxone Trend labs, trend cultures Squamous cell carcinoma cervix Continue outpatient followin g with provider at [facility] in [place], [place], Dr. Stringer. Patient states she is on [facility] facility in [place], [place]. Pending MRI outpatient for cancer staging once released from current facility. CONTACT LENS TECHNICIAN following. Patient is G 19, P 11, A8, serum preg negative. Patient medically stable. Ho spitalist team will sign off for now. Reconsult us should you need us. Thank you for this consult ===== DVT prophylaxisSCD. GI prophylaxisProtonix. CODE STATUSfull code. Total time spent in care of this patient: 40 min utes <Electronically signed by Gabe Casas MD> 09/29 1836 2022-03-13 14:15:00-00:00 [facility] Name: YULIYA PHILIP Ching Layne STLSJX [address] [facility] : 1985, Age: 36, S ex: [place] [address] Unit #: [id number], St atus: DIS IN Location: [address] Dictated by: Ching Layne MD *r Admission Date: 03/09/22 Report #: [id number] Discharge Date: 03/12/22 CC: Ching Layne MD *r NO PCP PROVIDER Bárbara Lemons MD, Thomas DO DISCHARGE SUMMARY REPORT Report Status: Signed DATE OF ADMISSION: 03/09/2022 DATE OF DISCHARGE: 03/12/2022 RESIDENT: Dr. Ching Layne. ADMITTING PHYSICIAN: Dr. Naylor. DISCHARGING PHYSICIAN: Dr. Sheldon. CONSULT: General Medicine. PROCEDURES: Renal ultrasound on 03/09/2022, [facility] shows unremarkable renal ultrasound. Pelvic MRI on [...] bleeding. She was trans ferred to the [facility] in [place] on 02/25/2022 after she was seen for pelvic pain and bleeding and was seen by gynecologic oncologist, Dr. Stringer, who found a cervical mass suspicious for cancer. 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 She was later discharged from [facility] and was stable. She was due [...] that she can easily get at the long-term that is stronger than NSAIDs. Encouraged patient to schedule routine followu p with her gynecologic oncologist, Dr. Stringer, at [facility] for further management for squamous cell carcinoma of the cervix. DISPOSITION: Stable. DISCHARGE INSTRUCTIONS: 1. Location, to long-term. 2. Diet; regular diet. 3. Activity as tolerated. 4. Followup: Followup with Dr. Stringer, Gynecologic Oncology as previously scheduled for further management of the cervical cancer. Job ID: [id number] Dictated by: Ching Layne MD *r <Electronically signed by Ching Layne MD *r> 04/18/22 0924 <Electronically signed by Ulysses Sheldon MD> 0842 Dictated Date/Time: 04/15/22 1653 Transcribed Date/Time: 04/16/22 0405 Tong Carrier: LOPEZ 2022-03-12 06:38:00-00:00 [facility] Name: YULIYA RICARDO Ching Layne STLSJX [address] [facility] : 1985, Age: 36, S ex: [place] [address] Unit #: [id number], St atus: ADM IN Location: [place] [address] CS-P Report Dict DrHarper: Ching Layne MD *r Admission Date: 03/09/22 Report #: [id number] Discharge Date: CC: Brief Progress Note Report [...] the Cervix -following w [facility], Dr Stirnger, FLOATING DERRICK OPERATOR Onc -MRI done for staging, pending official read. unable to get ahold of radiology -bleeding stable, vitals stable -pain controlled, will d/c with Tylenol #3 GERD -improved w Pepcid dispo: back to long-term today. <Ulysses Sheldon - Last Filed: 03/12/22 06:44> Addendum - Attending - Attending Attestation Date/Time: 03/12/22641 I personally evaluated the p atient and discussed the management with Dr. Layne. Feeling better this AM, labs last night all WNL. DC this AM, back to facility with care for SCC of cervix to follow. MRI remains pending. I agree with the History, Examination, Assessmen t and Plan documented above. <Electronically signed by Ching Layne MD> 0 03/12/22638 <Electronically signed by SARAH SHELDON MD> 03/1244 2022-03-11 18:36:00-00:00 [facility] Name: ISAIAH FRANKGabe Frankel STLSJX [address] [facility] : 1985, Age: 36, S ex: [place] [address] Unit #: [id number], St atus: ADM IN Location: [address] Report Dict : Gabe Casas DO Admission Date: 03/09/22 Report #: [id number] Discharge Date: CC: Hospitalist Progress Note Report [...] Total 1850 1560 1550 Output Total 41 2000 1753 Balance 1809 -440 -203 Result Diagrams: [...] 03/11/22 05:56 Lactated Ringer's IV 1,000 mls .[id number] AXEL Administration Lorazepam 0.5 mg 03/11/22 15:24 [...] She reports outpatient follow-up with provider at [facility] in [place], Dr. Stringer, last visit 2 weeks ago. She states she was seen at [facility] on 02/25 for vaginal bleeding concerns, and was given 3 units of PRBC for symptomati c anemia at that time. She returned to the [facility] ED yesterday with onset of pelvic pain as well as continued vaginal bleeding. Prior to transfer to the [facility] she was given TXA and 1 unit PRBC . Symptomatic anemia In setting of heavy vaginal bleeding, 1 unit PRBC given prior to transfer to [facility]. Patient also given TXA with marked impro vement in vaginal bleeding. Closely monitor labs Transfuse as needed Pelvic pain 03/09/2022: CT abdomen pelv is W Con with findings of masslike prominence of the cervix. Follow- up Renal ultrasound unremarkable. Patient given Demerol IM by primary team Continue Bend Hypotension Baseline BP maintaining 99/50 since initial pre sentation to [facility] ED. Closely monitor vital signs Continue IVF Chronic Constipation As needed MiraLAX, Colace Monitor I/O UTI Continue IV ceftriaxone Trend labs, trend cultures Squamous cell carcinoma cervix Continue outpatient followin g with provider at [facility] in [place], [place], Dr. Stringer. Patient states she is on [facility] facility in [place], [place]. Pending MRI outpatient for cancer staging once released from current facility. CONTACT LENS TECHNICIAN following. Patient is G 19, P 11, A8, serum preg negative. ===== DVT prophylaxisSCD. GI prophylaxisProtonix. CODE STATUSfull code. Total time spent in care of this patient: 40 min utes <Electronically signed by Gabe Casas MD> 05/022022-03-11 18:33:00-00:00 [facility] Name: YULIYA RICARDO Ching Layne STLSJX [address] [facility] : 1985, Age: 36, S ex: [place] [address] Unit #: [id number], St atus: ADM IN Location: [address] Report Dict Dr.: Ching Layne MD *r Admission Date: 03/09/22 Report #: [id number] Discharge Date: CC: Brief Progress Note Report [...] signed by SARAH SHELDON MD> 03/112022-03-11 06:15:00-00:00 [facility] Name: YULIYA RICARDO Ching Layne STLSJX [address] [facility] : 1985, Age: 36, S ex: [place] [address] Unit #: [id number], St atus: ADM IN Location: [address] Report Dict DrHarper: Ching Layne MD *r Admission Date: 03/09/22 Report #: [id number] Discharge Date: CC: Brief Progress Note Report [...] Cervix -following w [facility], Dr Stringer, FLOATING DERRICK OPERATOR Onc -MRI done for staging, pending official read -bleeding stable, vitals stable -pain controlled, will d/c with Tylenol #3 dispo: back to long-term today. w ill talk w guard when they are in room to see about where to send patient's pain meds <Narcisa Ruiz - Last Filed: 03/11/22 07:15> Addendum - Attending - Attending Attestation Date/Time: 03/11/22713 I personally evaluated the p atient and discussed the management with Dr. Layne. I agree with the History, Ex amination, Assessment and Plan documented above. D/c back to long-term today. MRI done but not reported. Can send to location and measurement technician onc w hen requested. <Electronically signed by Ching Layne MD> 0 03/11/22706 <Electronically signed by Narcisa Ruiz MD> 16 2022-03-10 16:38:00-00:00 [facility] Name: ISAIAH FRANKGabe Frankel STLSJX [address] [facility] : 1985, Age: 36, Sex: [place] [address] Unit #: [id number], St atus: ADM IN Location: [address]-P Report Dict : Gabe Casas DO Admission Date: 03/09/22 Report #: [id number] Discharge Date: CC: Hospitalist Progress Note Report [...] 54 L 18 85/53 L 85/53 L 96 03/10/22 12:00 98.5 F 68 18 101/58 [...] 03/10/22 08:03 Lactated Ringer's IV 1,000 mls .[id number] AXEL Administration Pantoprazole Sodium 40 mg 03/10/22 [...] She reports outpatient follow-up with provider at [facility] in [place], Dr. Stringer, last visit 2 weeks ago. She states she was seen at [facility] on 02/25 for vaginal bleeding concerns, and was given 3 units of PRBC for symptomati c anemia at that time. She returned to the [facility] ED yesterday with onset of pelvic pain as well as continued vaginal bleeding. Prior to transfer to the [facility] she was given TXA and 1 unit PRBC . Symptomatic anemia In setting of heavy vaginal bleeding, 1 unit PRBC given prior to transfer to [facility]. Patient also given TXA with marked improvement in vaginal bleeding. Closely monitor labs Transfuse as needed Pelvic pain 03/09/2022: CT abdomen pelvi s W Con with findings of masslike prominence of the cervix. Follow-up Renal ultrasound unremarkable. Patient given Demerol IM by primary team Continue Bend Hypotension Baseline BP maintaining 99/50 since initial pres entation to [facility] ED. Closely monitor vital signs Continue IVF Chronic Constipation As needed MiraLAX, Colace Monitor I/O UTI Continue IV ceftriaxone Trend labs, trend cultures Squamous cell carcinoma cervix Continue outpatient followin g with provider at [facility] in [place], [place], Dr. Stringer. Patient states she is on [facility] facility in [place], [place]. Pending MRI outpatient for cancer staging once released from current facility. CONTACT LENS TECHNICIAN following. Patient is G 19, P 11, A8, serum preg negative. ===== DVT prophylaxisSCD. GI prophylaxisProtonix. CODE STATUSfull code. Total time spent in care of this patient: 40 min utes <Electronically signed by Gabe Casas MD> 04/01 1639 2022-03-10 06:35:00-00:00 [facility] Name: YULIYA RICARDO Joe STLSJX [address] [facility] : 1985, Age: 36, S ex: [place] [address] Unit #: [id number], St atus: ADM IN Location: [address] Report Dict DrHarper: Gurmeet Naylor III, MD Admission Date: 03/09/22 Report #: [id number] Discharge Date: CC: Brief Progress Note Report [...] Naylor III, MD> 05/30 1335 2022-03-09 17:38:00-00:00 [facility] Name: YULIYA RODRÍGUEZ Polly Celis STLSJX [address] [facility] : 1985, Age: 36, S ex: [place] [address] Unit #: [id number], S tatus: ADM IN Location: [address] Report Dict DrHarper: Polly Celis CAM MILLING MACHINE OPERATOR Admission Date: 03/09/22 Report #: [id number] Discharge Date: CC: Hospitalist Consult Note Report Status: Signed Hospitalist Consult - Consult Date Date: 03/09/22 Time: 17:38 - Reason for Consult Reason for Consult: Medical Management Requesting Physician: Dr. Naylor - History and Present Illness HPI: Patient is a 36-year-old fem laya with recent diagnosis of squamous cell carcinoma of the cervix. She reports outpatient follow-up with provider at [facility] in [place], Dr. Stringer, last visit 2 weeks ago. She is scheduled to hav e an MRI for staging of the cancer; however due to her current incarceration status this call s not been done yet. She states she was seen at [facility] on 02/25 for vaginal bleeding concerns, a nd was given 3 units of PRBC for symptomatic anemia at that time. She returned to the [facility] ED yes terday with onset of pelvic pain as well as continued vaginal bleeding. Prior to transfer to the [facility] she was given TXA and [...] any new concerns or complaints. She reports [place] improvement in her abdominal pain post administration of Demerol IV and Bend over the past several hours. - Allergies/Home [...] She reports outpatient follow-up with provider at [facility] in [place], Dr. Stringer, last visit 2 weeks ago. She states she was seen at [facility] ED on 02/25 for vaginal bleeding concerns, and was given 3 units of PRBC for symptomati c anemia at that time. She returned to the [facility] ED yesterday with onset of pelvic pain as well as continued vaginal bleeding. Prior to transfer to the [facility] she was given TXA and 1 unit PRBC . Symptomatic anemia In setting of heavy vaginal bleeding, 1 unit PRBC given prior to transfer to [facility]. Patient also given TXA with marked improvement in vaginal bleeding. Closely monitor labs Transfuse as needed Pelvic pain 03/09/2022: CT abdomen pelvi s W Con with findings of masslike prominence of the cervix. Follow-up Renal ultrasound unremarkable. Patient given Demerol IM by primary team Continue Bend prn Hypotension Baseline BP maintaining 99/50 since initial pres entation to [facility] ED. Closely monitor vital signs Continue IVF Chronic Constipation As needed MiraLAX, Colace Monitor I/O UTI Continue IV ceftriaxone Trend labs, trend cultures Squamous cell carcinoma cervix Continue outpatient followin g with provider at [facility] in [place], [place], Dr. Stirnger. Patient states she is on [facility] facility in [place], [place]. Pending MRI outpatient for cancer staging once released from current facility. CONTACT LENS TECHNICIAN following. Patient is G 19, P 11, A8, serum preg negative. DVT prophylaxisSCD. GI prophylaxisProtonix. CODE STATUSfull code. <Electronically signed by Polly Celis STATISTICAL METHODS PROFESSOR> 0 03/10/22 1708 2022-03-09 09:41:00-00:00 [facility] Name: ISAIAH FRANK,Gurmeet Webb STLSJX [address] [facility] : 1985, Age: 36, S ex: [place] [address] Unit #: [id number], St atus: ADM IN Location: [address]- Report Dict Dr.: Gurmeet Naylor III, MD Admission Date: 03/09/22 Report #: [id number] Discharge Date: CC: History Physical Report Status: Signed - History Physical Encounter Time: 03/09/22 Encounter Time: 09:30 36 year old female G 19 P 11 AB 8 CC Pelvic pain, vaginal bleeding HPI She was initially seen in [facility] on 02/25/22 the above noted complaints. She was ultimately[facility]red to [facility] in [place], School Bus Mechanic Onc Dr Stringer, with th e finding of a mass of the cervix suspicious for cancer. Her biopsy showed squamous cell carcinoma of th e cervix. She was later discharged home from [facility] stable. Completion of her work up for the cancer will b een done upon f/u with School Bus Mechanic Oncologyl. She is to have MRI for staging of the cancer. In [place] on 02/25 s he received blood transfusion for the anemia secondary to her vaginal bleeding. Recieved 3 units of NE BC. Most recently she was seen here in our ER for retrosternal chest pain vaginal bleeding, pelvic pain. She w as cleared in the main ER and brought to the floor for admiission by the OB Hospitalist. Prior to coming to the f nayla was given TXA for the bleeding, [...] TSVD, 8 SAB no d and c. FLOATING DERRICK OPERATOR Monthly menses every month. LMP 2 [...] normocephalic PUL Chest clear to auscultation, unlabored nor mal respirations CVR RRR AB Nondistended, no masses, [...] by Gurmeet Naylor III, MD> 19262021-10-11 14:14:00-00:00 [id number] [place], [place] PATIENT NAME: YULIYA LARA ADMIT D ATE: 10/11/21 ACCOUNT NO: [id number] ROOM NO: AGE: 36 REPORT TYPE: ELECTROCARDIOGRAM SEX: F : 83 ADMITTING PHYSICIAN: ATTENDING PHYSICIAN:Dallin Sanchez DO Order: [id number] Test Reason : cp Test Date/Time Stamp: [...] ECG Confirmed by MD Laura, Dallin (), editor producer A IKE ZAMUDIO ([id number]) on 12/18/2021 8:47:39 AM Referred By: Self Referred Confirmed by:Dallin jeter MD Electronically Signed by Dallin Sanchez DO on at 0847 PATIENT NAME: YULIYA LARA 2021-10-11 14:10:00-00:[address] [facility] [place] ([facility]) OR A [facility] OF [facility] EMERGENCY PROVIDER REPORT REPORT#:[id number] REPORT STATUS: Signed DATE:10/11/21 TIME: 141 PATIENT: YULIYA LARA UNIT #: [id number] ROOM/BED: AGE: 36 SEX: F PCP PHYS: Armond Owens MD SERVICE AUTHOR: Dallin Sanchez DO * ALL edits or amendments must be made on the el [employer]/computer document * Dallin Sanchez 10/11/21 1410: HPI- Female Free Text HPI Notes Free Text HPI Notes Patient is a 36-year-old female, currently in [facility] a [facility], presenting to the emergency room for [...] had hemophilia. General Initial Greet Date/Time 10/11/21 8115 Presentation Chief Complaint Vaginal bleeding Review of [...] Referrals Provider Referral: Armond Owens MD Address: [address] [place] [address], [address] [place] [address] Provider Referral: Yusra Arreguin MD Address: [address] [place] [address] [address] [place] [address] Mary Vo 10/11/21 1655: Physical Exam Vital Signs Vital Signs First Documented: Result Date Time Pulse Ox 97 10/11 1335 B/P 102/51 10/11 1335 B/P Mean 68 10/11 133 O2 Delivery Room air 10/11 1334 Temp 36.9 10/11 133 Pulse 65 10/11 1335 Resp 16 10/11 1334 Last Documented: Result Date Time Pulse Ox 97 10/11 2054 B/P 104/64 10/11 2054 B/P Mean 77 08/04 2055 O2 Delivery Room air 10/11 2054 Temp 36.9 10/11 2054 Pulse 65 10/11 2054 Resp 16 10/11 2054 Interpretation Diagnostics Lab Results Interpretation Results Laboratory Tests 10/11/211837: [Embedded Image Not Available] 10/11/21 1405: [Embedded Image Not Available] Laboratory Tests: 10/11 1725 1438 Chemistry POC Glucose (65 - 99 MG/DL) 80 Hematology Hgb (12.0 - 16.0 G/DL) 10.0 L Hct (37 - 47 %) 30.3 L MCHC (33 - 37 G/DL) 33.0 Urines Ur Spec Description Clean Catch Urine Color (YELLOW) YELLOW Urine Appearance (CLEAR) CLOUDY Urine pH (5.5 - 7.0) 6.0 Ur Specific Goldsmith (1.001 - 1.035) 1.015 Urine Protein (NEGATIVE [...] % (Auto) (24 - 44 %) 37.8 [place] % (Auto) (0.0 - 4.0 %) 4.2 [...] Date/Time Procedure - Status Source Growth 10/11 1454 Urine Culture - RECD URINE Recent Impressions: ULTRASOUND - US TRANSVAGINAL NON OB 10/11 1530 Report Impression - Status: SIGNED [...] MDM Notes Discussed case with Dr. Souleymane phoenix, labs are unremarkable, patient is vitally stable at this time, repeat hemoglobin is unrem arkable, we will discharge the patient home with medroxyprogesterone for 10 days and call ve her follow-up with her primary care provider or her J2EE CONSULTANT. Return to E D immediately if condition worsens. Additional Text 4922 patient arrived from [place], blo od pressure is 87/49, patient is [...] Ox 97 10/11 1335 B/P 102/51 10/11 133 B/P Mean 68 10/11 1334 O2 Delivery [...] needed for pain, follow-up with you r J2EE CONSULTANT call soon for an appointment, return to [...] symptoms should prompt an immediate return to [facility] or the closest emergency [...] Dallin Sanchez DO on at 0723 RPT #:[id number] END OF REPORT 2020-01-25 07:58:00-00:[address] [facility] [place] ([facility]) OB Postpart Progr Note REPORT#:[id number] REPORT STATUS: Signed DATE:01/25/20 TIME: 0758 PATIENT: YULIYA LARA UNIT #: [id number] ROOM/BED: [facility]14 : 83 AGE: 34 SEX: F ATTEND: Justin Kelly MD ADM AUTHOR: Pa Kelly MD * ALL edits or amendments must be made on the el [employer]/computer document * Subjective Subjective Admission EGA: Weeks: [...] Pa Kelly MD on at 0759 RPT #:[id number] END OF REPORT 2020-01-24 10:26:00-00:[address] [facility] [place] ([facility]) OB Delivery Note REPORT#:[id number] REPORT STATUS: Signed DATE:01/24/20 TIME: 1026 PATIENT: YULIYA LARA UNIT #: [id number] ROOM/BED: [facility]871 : 83 AGE: 34 SEX: F ATTEND: Justin Kelly MD ADM AUTHOR: Pa Kelly MD * ALL edits or amendments must be made on the [employer]/computer document * OB Delivery Pre-delivery GBS status: [...] Pa Kelly MD on at 1028 RPT #:[id number] END OF REPORT 2020-01-24 10:26:00-00:[address] [facility] [place] ([facility]) OB Delivery Note REPORT#:[id number] REPORT STATUS: Signed DATE:01/24/20 TIME: 1026 PATIENT: YULIYA LARA UNIT #: [id number] ROOM/BED: Y287-1 : 83 AGE: 34 SEX: F ATTEND: Justin Kelly MD ADM AUTHOR: Pa Kelly MD * ALL edits or amendments must be made on the [employer] document * See Addendum OB Delivery Pre-delivery GBS status: GBS status: unknown Prophylaxis administered: penicillin Queen evaluation at delivery: NRP certified pe rsonnel [...] No Mother's condition: mother stable Infant's condition: stable in room Lacerations: Perineal laceration(s): [...] Pa Kelly MD on at 1033 RPT #:[id number] END OF REPORT 2020-01-24 08:21:00-00:[address] [facility] [place] ([facility]) OB Intrapart Prog Note REPORT#:[id number] REPORT STATUS: Signed DATE:01/24/20 TIME: 820 PATIENT: YULIYA LARA UNIT #: [id number] ROOM/BED: [facility]871 : 83 AGE: 34 SEX: F ATTEND: Justin Kelly MD ADM AUTHOR: Pa Kelly MD * ALL edits or amendments must be made on the el [employer]/computer document * Subjective Subjective Admission EGA (wks/days): [...] Cervical/ exam: Dilatation (cm): 8 Effacement (%): 19607 station: - 2 presentation: cephalic Est. wt [...] % (Auto) (24 - 44 %) 40.2 [place] % (Auto) (0.0 - 4.0 %) 4.5 H Eos % (Auto) (0.0 - 2.7 %) 2.2 Baso % (Auto) (0.0 - 0.5 %) 0.0 Eos # (Auto) (0.0 - 0.5 x10 3/uL) 0.16 Baso # (Auto) (0.0 - 0.2 x10 3/uL) 0.00 Abs Immat Gran (auto) (0.00 - 0.03 x10 3/uL) 0. 03 Absolute Neuts (auto) (1.8 - 7.7 x10 3/uL) 3.8 3 Absolute Lymphs (auto) (1.0 - 4.8 x10 [...] pH (5.5 - 7.0) 6.5 Ur Specific Goldsmith (1.001 - 1.035) 1.003 Urine Protein (NEGATIVE mg/dL) NEGATIVE Urine Glucose (UA) (NEGATIVE mg/dL) NORMAL Urine Ketones (NEGATIVE mg/dL) NEGATIVE Urine Blood (NEGATIVE) NEGATIVE Urine Nitrite (NEGATIVE) NEGATIVE Urine Bilirubin (NEGATIVE) NEGATIVE Urine Urobilinogen (NORMAL mg/dL) NORMAL Ur Leukocyte Esterase (NEGATIVE) NEGATIVE Urine Comment VOLUME 10-12 ML Microbiology: Date/Time Procedure - Status Source Growth 01/23 1498 Group B Streptococcus Culture - COLB VAGINAL Diagnosis, Assessment Plan Assessment: normal FHR pattern, normal progress of labor, stable, doing well Plan: anticipate vag delivery Plan discussed with: patient, nurse Electronically Signed by Pa Kelly MD on 11 /16/20 at 0825 RPT #:[id number] END OF REPORT 2020-01-24 08:21:00-00:00 [facility] ([facility]) OB Intrapart Prog Note REPORT#:[id number] REPORT STATUS: Signed DATE:01/24/20 TIME: 08 PATIENT: YULIYA LARA UNIT #: [id number] ROOM/BED: [place] [address] : [birth year] AGE: 34 SEX: F ATTEND: Justin Kelly MD ADM AUTHOR: Pa Kelly MD * ALL edits or amendments must be made on the [employer] document * See Addendum Subjective Subjective Admission [...] Cervical/ exam: Dilatation (cm): 8 Effacement (%): 27294 station: - 2 presentation: cephalic Est. wt [...] % (Auto) (24 - 44 %) 40.2 [place] % (Auto) (0.0 - 4.0 %) 4.5 [...] pH (5.5 - 7.0) 6.5 Ur Specific [place] (1.001 - 1.035) 1.003 Urine Protein (NEGATIVE mg/dL) NEGATIVE Urine Glucose (UA) (NEGATIVE mg/dL) NORMAL Urine Ketones (NEGATIVE mg/dL) NEGATIVE Urine Blood (NEGATIVE) NEGATIVE Urine Nitrite (NEGATIVE) NEGATIVE Urine Bilirubin (NEGATIVE) NEGATIVE Urine Urobilinogen (NORMAL mg/dL) NORMAL Ur Leukocyte Esterase (NEGATIVE) NEGATIVE Urine Comment VOLUME 10-12 ML Microbiology: Date/Time Procedure - Status Source Growth 01/23 3761 Group B Streptococcus Culture - COLB VAGINAL Diagnosis, Assessment Plan Assessment: normal FHR pattern, normal progress of labor, stable, doing well Plan: anticipate vag delivery Plan discussed with: patient, nurse Electronically Signed by Pa Kelly MD on at 0825 Addendum 1: 01/24/20 1032 by Pa Kelly MD Admitted at 37 weeks Electronically Signed by Pa Kelly MD on at 1032 RPT #:[id number] END OF REPORT 2018-04-17 06:54:00-00:00 [facility] ([facility]) OB Postpart Progr Note REPORT#:[id number] REPORT STATUS: Signed DATE:04/17/18 TIME: 0654 PATIENT: YULIYA LARA UNIT #: [id number] ROOM/BED: Y213-1 : 83 AGE: 32 SEX: F ATTEND: Justin Kelly MD ADM AUTHOR: Armond Owens MD * ALL edits or amendments must be made on the el [employer]/computer document * Subjective Subjective Status/Day: post (2) [...] er, office fu, contraception. at 0655 RPT #:[id number] END OF REPORT 2018-04-16 06:51:00-00:00 [facility] ([facility]) OB Postpart Progr Note REPORT#:[id number] REPORT STATUS: Signed DATE:04/16/18 TIME: 06 PATIENT: YULIYA LARA UNIT #: [id number] ROOM/BED: [place] [address] : 83 AGE: 32 SEX: F ATTEND: Justin Kelly MD ADM AUTHOR: Hardik Buckley MD * ALL edits or amendments must be made on the [employer]/computer document * Subjective Subjective Status/Day: post (day [...] F low FiO2 Mean Ox Delivery Rate 02/ 0412 98.6 66 18 113/61 02/06 2352 97.8 66 18 94/56 02/06 1900 98.2 74 18 99/54 02/06 1637 98.1 72 16 102/48 02/06 1505 98.3 75 16 105/52 02/06 1444 98.0 18 02/06 1444 76.0 02/06 1444 75 109/53 02/06 1414 79.0 02/06 [...] care, discharge tomorro w at 0652 RPT #:[id number] END OF REPORT 2018-04-15 13:02:00-00:[address] [facility] [place] [place] ([facility]) OB Delivery Note REPORT#:[id number] REPORT STATUS: Signed DATE:04/15/18 TIME: 1302 PATIENT: YULIYA LARA UNIT #: [id number] ROOM/BED: [place] [address] : 83 AGE: 32 SEX: F ATTEND: Justin Kelly MD ADM AUTHOR: Pa Kelly MD * ALL edits or amendments must be made on the el [employer]/computer document * OB Delivery Pre-delivery GBS status: GBS status: positive Prophylaxis administered: vancomycin Queen evaluation at delivery: NRP certified pe rsonnel EGA (weeks/days): 39 weeks (3 days) General VS: Last Documented: Result Date Time B/P Mean 76.0 04/15 1244 B/P 108/53 04/15 1244 Pulse 66 04/15 1244 Temp 98.2 02/ 1022 Resp 18 04/15 1022 Pulse Ox 100 04/15 0433 Membranes: AROM ROM date: 04/15/18 ROM time: 0838 Amniotic fluid: clear Baby A Information Baby A information Delivery date: 04/15/18 Delivery time: 1310 status: live born Wt of baby (grams): 3195 Wt of baby (lbs/oz): 7/ Gender: female 1 minute: 8 5 minutes: [...] Pa Kelly MD on at 1506 RPT #:[id number] END OF REPORT 2018-04-15 08:43:00-00:00 [facility] ([facility]) OB Intrapart Prog Note REPORT#:[id number] REPORT STATUS: Signed DATE:04/15/18 TIME: 0843 PATIENT: YULIYA LARA UNIT #: [id number] ROOM/BED: Y289-1 : 83 AGE: 32 SEX: F ATTEND: Justin Kelly MD ADM AUTHOR: Pa Kelly MD * ALL edits or amendments must be made on the [employer]/computer document * Subjective Subjective Patient reports: Patient reports: Yes comfortable with epidural Objective Objective VS: Vital Signs Date Time Temp Pulse Resp B/P B/P Pulse O2 O2 F low FiO2 Mean Ox Delivery Rate 04/15 743 74.0 04/15 743 75 105/55 04/15 713 70.0 04/15 713 65 96/53 04/15 0608 98.5 18 04/15 643 75.0 04/15 643 78 108/52 04/15 613 73.0 04/15 613 70 101/54 04/15 0444 73.0 02/06 0544 67 101/52 02/06 0516 [...] Signed by Pa Kelly MD on at 08[facility] [[email or web address]] #:[id number] END OF REPORT
[2022-11-26 01:20] LABS: Absolute Lymphocytes (CBC) 1.2 K/uL (0.7-4.9); Hematocrit 27.9 % (36.0-45.0); Lymphocytes % 13.8 % (15.3-44.8); MCV 93.8 fL (80-100); MPV 6.7 fL (7.6-11.3); Platelets 483 thou/uL (152-406); RBC Red Blood Cell Count 2.98 M/uL (3.86-4.86)
[2022-11-26] MEDS ORDERED: LORazepam 2 MG/ML VIAL ONE (01:30)
[2022-11-26] MEDS ORDERED: FENTANYL CITR 100 MCG/2 ML ONE ×3 (01:31→06:08)
[2022-11-26] MEDS ORDERED: METRONIDAZOLE 500mg IVPB 500 MG/100 ML BAG IV ONE (01:31)
[2022-11-26] MEDS ORDERED: NA CHLORIDE 0.9% 1,000 ML ONE (01:31)
[2022-11-26] MEDS ORDERED: Levofloxacin 750mg IV 750 MG/150 ML BAG IV ONE (01:31)
[2022-11-26] MEDS ORDERED: ONDANSETRON 4 MG/2 ML VIAL ONE (01:32)
[2022-11-26 01:41] LABS: Albumin 2.6 g/dL (3.4-5.0); Bilirubin Total 0.2 mg/dL (0.2-1.0); C-Reactive Protein 55.6 mg/L (<3.00); Protein, Total 7.8 g/dL (6.4-8.2)
--- NOTE | 2022-11-26 05:08 | EDPHYS ---
Physician Documentation [facility] Name: Jayashree Khan Age: 37 yrs Sex: Female : 1985 Arrival Date: 11/26/2022 Time: 00:32 Bed 6 Private MD: ED Physician Saw Padilla HPI: 11/26 00:36 This 37 yrs old Female presents to ER via Unassigned with complaints of pelvic sp4 pain, emotinal upset . 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 Presents with EMS for worsening pelvic pain starting in the last 24 hours. EMS reported patient was hypotensive as well. Patient reported pain in the pelvis which is radiating into her tailbone. In acute distress on arrival secondary to pain. . 04:57 CT report 11/11/2019 -- ABDOMEN/PELVIS IMPRESSION: 1. Fluid and gas measuring up to 6.2 sp4 cm extends from the endometrium to the vagina. This is concerning for abscess in the context of cervical malignancy. 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 2. Moderate bilateral hydronephrosis with nephrostomy catheters in place. 3. Gallbladder sludge.. 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 Patient is poor historian she is unable to say what happened at [facility]. 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 - Social history:: Smoking status: unknown. - Family history:: not pertinent. ROS: 05:02 Constitutional: Negative for fever, chills, and weight loss, Abdomen/GI: Negative for sp4 nausea, vomiting, diarrhea, and constipation, positive for pelvic pain, lower abdominal pain : Negative for injury, bleeding, discharge, and swelling, positive for pelvic pain and bilateral nephrostomy 05:02 All other systems are negative, Exam: 05:02 Constitutional: This is a well developed, well nourished patient who is awake, alert, sp4 positive acute emotional upset. Head/Face: Normocephalic, atraumatic. Eyes: Pupils equal round and reactive to light, extra-ocular motions intact. Lids and lashes normal. Conjunctiva and sclera are not injected. Cornea within normal limits. Periorbital areas with no swelling, redness, or edema. ENT: Nares patent. No nasal discharge, no septal abnormalities noted. Tympanic membranes are normal and external auditory canals are clear. Oropharynx with no redness, swelling, or masses, exudates, or evidence of obstruction, uvula midline. Mucous membranes moist. Neck: Trachea midline, no thyromegaly or masses palpated, and no cervical lymphadenopathy. Supple, full range of motion without nuchal rigidity, or vertebral point tenderness. Chest/axilla: Normal chest wall appearance and motion. Nontender with no deformity. No lesions are appreciated. Cardiovascular: Regular rate and rhythm with a normal S1 and S2. No gallops, murmurs, or rubs. Normal PMI, no JVD. No pulse deficits. Respiratory: Lungs have equal breath sounds bilaterally, clear to auscultation and percussion. No rales, rhonchi or wheezes noted. No increased work of breathing, no retractions or nasal flaring. Abdomen/GI: Soft, non-tender, with normal bowel sounds. No distension or tympany. No guarding or rebound. No evidence of tenderness throughout. Back: No spinal tenderness. No costovertebral tenderness. Positive bilateral nephrostomy Skin: Warm, dry with normal turgor. Normal color with no rashes, no lesions, and no evidence of cellulitis. MS/ Extremity: Pulses equal, no cyanosis. Neurovascular intact. Full, normal range of motion. Neuro: Awake and alert, GCS 15, oriented to person, place, time, and situation. Cranial nerves II-XII grossly intact. Motor strength 5/5 in all extremities. Sensory grossly intact. Psych: Awake, alert, with orientation to person, place and time. Behavior, mood, and affect are within normal limits Vital Signs: 00:34 BP 110 / 78; Pulse 88; Resp 17 S; Temp 98.4(O); Pulse Ox 100% on R/A; Weight 45.36 kg lg3 (R); Height 5 ft. 5 in. ; Pain 10/10; 01:30 BP 100 / 73; Pulse 84; Resp 16 S; Pulse Ox 100% on R/A; lg3 02:50 BP 110 / 75; Pulse 79; Resp 16 S; Pulse Ox 100% on R/A; lg3 04:00 BP 101 / 73; Pulse 89; Resp 15 S; Pulse Ox 100% on R/A; lg3 05:15 BP 101 / 71; Pulse 86; Resp 15 S; Pulse Ox 100% on R/A; lg3 06:45 BP 99 / 68; Pulse 93; Resp 15 S; Pulse Ox 99% on R/A; lg3 00:34 Body Mass Index 16.64 (45.36 kg, 165.1 cm) lg3 00:34 Pain Scale: Adult lg3 MDM: 00:36 Patient medically screened. sp4 04:51 ED course: CT abdomen - Comparison: CT abdomen and pelvis without IV contrast performed sp4 on 11/10/2022. FINDINGS: Limitations: Overall evaluation is limited without intravenous contrast. Lung bases: The lung bases are clear. Liver: The liver is enlarged and measures approximately 19.5 cm in craniocaudal dimension. No focal hepatic abnormalities are appreciated on this unenhanced scan. Liver attenuation is within normal limits. Spleen:The spleen is normal in size, configuration and attenuation. No focal splenic abnormalities are appreciated on this unenhanced scan. Gallbladder and bile duct: The gallbladder is well distended. There is some increased attenuation within the dependent gallbladder lumen which may be due to sludge. There is no biliary ductal dilatation. Pancreas: The pancreas is grossly normal in size and configuration. Adrenal Glands:The adrenal glands are normal in size and configuration. Kidneys:The kidneys are normal in size and configuration. There are bilateral nephrostomy catheters. There is no evidence of hydronephrosis. There is no evidence of nephrolithiasis. No focal renal abnormalities are identified. Stomach:The stomach is grossly normal. There is no definite hiatal hernia. Bowel:The bowel gas pattern is non specific and non obstructive. There is some oral contrast present within the colon. Appendix: The appendix is normal. Free air:There is no evidence of free air. Free fluid: There is no evidence of free fluid. Vasculature: The aorta is normal in caliber and contour. The inferior vena cava is grossly unremarkable. Lymphadenopathy: No pathologic lymphadenopathy is identified. Bladder: The bladder is incompletely distended on this examination. There is diffuse bladder wall thickening. There is air in the bladder which is concerning for an infectious etiology. There is also a fistulous communication between the lower uterine segment and the bladder. Reproductive: Again demonstrated is fluid and gas in the endometrium extending into the vagina with fistulous communication of the lower uterine segment to the bladder. Findings are similar when compared to the prior study. Bones: No acute osseous abnormalities are identified. There is mild degenerative disc disease at L5-S1. Soft tissues: No acute soft tissue abnormalities are identified. IMPRESSION: 1. Again demonstrated is fluid and gas in the endometrium extending into the vagina with fistulous communication of the lower uterine segment to the bladder. Findings are similar when compared to the prior study and are again concerning for an abscess. 2. Diffuse bladder wall thickening with air in the bladder secondary to fistulous communication with the lower uterine segment and probable intrauterine infection. 3. Bilateral nephrostomy catheters without evidence of hydronephrosis. 4. Hepatomegaly. 5. Suspect gallbladder sludge. Electronically signed by: Amparo Palomares DO 11/26/2022 4:11. 05:02 Differential Diagnosis altered mental status, sepsis, flu. Data reviewed: vital signs, sp4 nurses notes, lab test result(s), CBC, electrolytes, hepatic panel, urinalysis, radiologic studies, CT scan. Consideration of Admission/Observation Patient was admitted/placed on observation. Escalation of care including admission/observation considered. 05:06 ED course: CT revealed complicated problem demonstrating fluid and gas in endometrium sp4 extending into the vagina with fistulous communication over the lower uterine segment into the urinary bladder. Findings similar to prior study concerning for abscess, diffuse bladder wall thickening with air in the bladder secondary to fistulous communication with the lower uterine segment. Probable intrauterine infection. Secondary to complexity of this problem and no urologist on-call, patient's warrant transfer to another for. 07:39 Transition of care: After a detail discussion of the patient's case, care is sp4 transferred to Dayday Sandoval MD. 11/26 00:35 Order name: CBC with Diff; Complete Time: 04:48 sp4 11/26 00:35 Order name: CMP; Complete Time: 04:48 sp4 11/26 00:35 Order name: Lipase; Complete Time: 04:48 sp4 11/26 00:35 Order name: Urinalysis w/ reflexes; Complete Time: 06:40 sp4 11/26 00:36 Order name: Lactate w/ 2H reflex if indic.; Complete Time: 04:48 sp4 11/26 00:36 Order name: CRP; Complete Time: 04:48 sp4 11/26 00:36 Order name: Test, Serum; Complete Time: 04:48 sp4 11/26 00:36 Order name: Blood Culture Adult (2) sp4 11/26 05:30 Order name: Urinalysis w/ reflexes; Complete Time: 06:40 EDMS 11/26 05:42 Order name: Urine Culture EDSC 11/26 05:56 Order name: SARS RAPID; Complete Time: 06:40 rv1 11/26 00:35 Order name: CT Abd/Pelvis - Without Contrast sp4 11/26 00:35 Order name: IV Saline Lock; Complete Time: 03:19 sp4 11/26 00:35 Order name: Labs collected and sent; Complete Time: 03:19 sp4 Administered Medications: 01:15 Drug: NS 0.9% IV 1000 ml IV at 1 bolus Per protocol; 1000 mL bolus Route: IV; Rate: 1 lg3 bolus; Site: left wrist; 03:21 Follow up: IV Status: Completed infusion; IV Intake: 1000ml lg3 01:15 Drug: Ondansetron IVP 4 mg IVP once; over 2 minutes Route: IVP; Site: left wrist; lg3 03:21 Follow up: Response: No adverse reaction; Marked relief of symptoms lg3 01:15 Drug: levofloxacin IVPB 750 mg 150 ml IVPB once over 90 mins Volume: 150 ml; Route: lg3 IVPB; Infused Over: 90 mins; Site: left wrist; 03:20 Follow up: Response: No adverse reaction; IV Status: Completed infusion; IV Intake: lg3 150ml 01:15 Drug: metroNIDAZOLE IVPB 500 mg 100 ml IVPB at 200 ml/hr once over 30 mins Volume: 100 lg3 ml; Route: IVPB; Rate: 200 ml/hr; Infused Over: 30 mins; Site: left wrist; 03:20 Follow up: Response: No adverse reaction; IV Status: Completed infusion; IV Intake: lg3 100ml 01:15 Drug: fentaNYL (PF) IVP 50 mcg IVP once Route: IVP; Site: left wrist; lg3 03:19 Follow up: Response: No adverse reaction; Marked relief of symptoms lg3 01:15 Drug: Ativan IVP 1 mg IVP once Route: IVP; Site: left wrist; lg3 03:19 Follow up: Response: No adverse reaction; Marked relief of symptoms; Anxiety decreased; lg3 RASS: Alert and Calm (0) 03:18 Not Given (Physician Discretion): ns 0.9% 1000 ml IV at 125 ml/hr continuous lg3 03:19 Not Given (Physician Discretion): [id number] mg IVP once; dilute with 10 mL 0.9% lg3 NaCl; give over 2 minutes 05:25 Drug: fentaNYL (PF) IVP 50 mcg IVP once Route: IVP; Site: left wrist; jw7 06:15 Follow up: Response: No adverse reaction jw7 06:47 Follow up: Response: No adverse reaction; Marked relief of symptoms; Pain is decreased lg3 05:25 Drug: vancoMYCIN IVPB 1 grams IVPB once over 2 hrs Route: IVPB; Infused Over: 2 hrs; jw7 Site: left wrist; 06:15 Drug: fentaNYL (PF) IVP 50 mcg IVP once Route: IVP; Site: left wrist; jw7 06:47 Follow up: Response: No adverse reaction; Marked relief of symptoms; Pain is decreased lg3 07:23 Drug: diphenhydrAMINE IVP 25 mg IVP once Route: IVP; Site: left wrist; cp4 07:24 Drug: Haloperidol IVP 5 mg IVP once Route: IVP; Site: left wrist; cp4 Disposition Summary: 11/26/22 05:06 Transfer Ordered Notes: Reason: Higher level of care sp4 Condition: Stable sp4 Problem: new sp4 Symptoms: have improved sp4 Transfer Location: [facility](11/26/22 07:03) sp4 Accepting Physician: [facility] -hospitalist consulted(11/26/22 08:52) ld1 Diagnosis - Pelvic abscess, 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
--- NOTE | 2022-11-26 05:08 | ER ---
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 pain all over. reports nausea. Coronavirus screen: Client denies travel out of the [place] in the last 14 days. At this time, the client does not indicate any symptoms associated with coronavirus-19. Ebola Screen: No symptoms or risks identified at this time. Initial Sepsis Screen: Does the patient meet any 2 criteria? No. Patient's initial sepsis screen is negative. Does the patient have a suspected source of infection? No. Patient's initial sepsis screen is negative. Risk Assessment: Do you want to hurt yourself or someone else? Patient reports no desire to harm self or others. Onset of symptoms is unknown. 00:34 Method Of Arrival: EMS: [facility] lg3 00:34 Acuity: WALT 3 lg3 Triage Assessment: 00:37 General: Appears in no apparent distress. uncomfortable, Behavior is cooperative, lg3 anxious, crying, restless. Pain: Complains of pain in back, coccyx, right leg and left leg. EENT: No deficits noted. No signs and/or symptoms were reported regarding the EENT system. Neuro: Anderson Agitation-Sedation Scale (RASS): +1 Restless Level of Consciousness is awake, alert, obeys commands, Oriented to person, place, time, situation. Cardiovascular: No deficits noted. Denies chest pain, shortness of breath, Capillary refill < 3 seconds Clubbing of nail beds is absent JVD is absent Patient's skin is warm and dry. Respiratory: No deficits noted. Airway is patent Respiratory effort is even, unlabored, Respiratory pattern is regular, symmetrical. GI: No deficits noted. Abdomen is flat, non-distended, Reports nausea. : bilateral nephrostomy tubes noted. Derm: No deficits noted. No signs and/or symptoms reported regarding the dermatologic system. Skin is intact, is healthy with good turgor, Skin is dry, Skin is normal, Skin temperature is warm. Musculoskeletal: Reports pain all over. 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 - Social history:: Smoking status: unknown. - Family history:: not pertinent. Screenin:41 [facility] ED Fall Risk Assessment (Adult) History of falling in the last 3 months, lg3 including since admission No falls in past 3 months (0 pts). Abuse screen: Denies threats or abuse. Denies injuries from another. Nutritional screening: No deficits noted. Tuberculosis screening: No symptoms or risk factors identified. Assessment: 00:40 General: see triage assessment . lg3 02:10 Reassessment: Patient appears in no apparent distress at this time. No changes from lg3 previously documented assessment. Patient and/or family updated on plan of care and expected duration. Pain level reassessed. Patient is alert, oriented x 3, equal unlabored respirations, skin warm/dry/pink. 04:15 Reassessment: Patient appears in no apparent distress at this time. No changes from lg3 previously documented assessment. Patient is alert, oriented x 3, equal unlabored respirations, skin warm/dry/pink. General: pt quietly resting with eyes closed at this time. 06:43 Reassessment: Patient appears in no apparent distress at this time. No changes from lg3 previously documented assessment. Patient and/or family updated on plan of care and expected duration. Pain level reassessed. Patient is alert, oriented x 3, equal unlabored respirations, skin warm/dry/pink. 07:32 Reassessment: Attempted to call report - Nurse unavailable at this time. "Please call jw7 back in 20 minutes, we are in the middle of shift huddle.". Vital Signs: 00:34 BP 110 / 78; Pulse 88; Resp 17 S; Temp 98.4(O); Pulse Ox 100% on R/A; Weight 45.36 kg lg3 (R); Height 5 ft. 5 in. ; Pain 10/10; 01:30 BP 100 / 73; Pulse 84; Resp 16 S; Pulse Ox 100% on R/A; lg3 02:50 BP 110 / 75; Pulse 79; Resp 16 S; Pulse Ox 100% on R/A; lg3 04:00 BP 101 / 73; Pulse 89; Resp 15 S; Pulse Ox 100% on R/A; lg3 05:15 BP 101 / 71; Pulse 86; Resp 15 S; Pulse Ox 100% on R/A; lg3 06:45 BP 99 / 68; Pulse 93; Resp 15 S; Pulse Ox 99% on R/A; lg3 00:34 Body Mass Index 16.64 (45.36 kg, 165.1 cm) lg3 00:34 Pain Scale: Adult lg3 ED Course: 00:34 Patient arrived in ED. rv1 00:34 Saw Padilla MD is Attending Physician. sp4 00:37 Triage completed. lg3 00:37 Arm band placed on right wrist. lg3 00:41 Patient has correct armband on for positive identification. Placed in gown. Bed in low lg3 position. Call light in reach. Side rails up X 1. Client placed on continuous cardiac and pulse oximetry monitoring. NIBP monitoring applied. Door closed. Noise minimized. Warm blanket given. 00:41 Maintain EMS IV. Dressing intact. Good blood return noted. Site clean \\T\\ dry. Gauge \\T\\ lg 3 site: 20 L Wrist. Patient maintains SpO2 saturation greater than 95% on room air. 02:23 CT Abd/Pelvis - Without Contrast In Process Unspecified. EDMS 03:16 Diana Page, RN is Primary Nurse. lg3 05:06 Initiated transfer with Connie at [facility]. rv1 05:30 Doc to Doc with from [facility]. rv1 05:55 [place] Urologist did not accept, wants pt to consult with [employer] Oncologist. Waiting rv1 for Oncologist at [facility] to answer page, requested Covid test. 06:01 SARS RAPID Sent. rv1 06:07 SARS RAPID Sent. rv1 06:15 Dressings: non-adherent dressing x 2 left mid back and right mid back. jw7 06:16 Door closed. Noise minimized. Lights dimmed. jw7 06:23 Called Connie at [facility] with Covid results, still waiting for Oncology to respond rv1 to page. 06:46 Doc to Doc with Internal Med., accepted but still need consult with Oncology before rv1 Admin Approval. 07:42 pt accepted in transfer to [facility] by dr gonzalez, admin approval given by lucas betancourt, pt going to [address] [place], [place] [id number]. 08:52 No provider procedures requiring assistance completed. Patient transferred, IV remains ld1 in place. Administered Medications: 01:15 Drug: NS 0.9% IV 1000 ml IV at 1 bolus Per protocol; 1000 mL bolus Route: IV; Rate: 1 lg3 bolus; Site: left wrist; 03:21 Follow up: IV Status: Completed infusion; IV Intake: 1000ml lg3 01:15 Drug: Ondansetron IVP 4 mg IVP once; over 2 minutes Route: IVP; Site: left wrist; lg3 03:21 Follow up: Response: No adverse reaction; Marked relief of symptoms lg3 01:15 Drug: levofloxacin IVPB 750 mg 150 ml IVPB once over 90 mins Volume: 150 ml; Route: lg3 IVPB; Infused Over: 90 mins; Site: left wrist; 03:20 Follow up: Response: No adverse reaction; IV Status: Completed infusion; IV Intake: lg3 150ml 01:15 Drug: metroNIDAZOLE IVPB 500 mg 100 ml IVPB at 200 ml/hr once over 30 mins Volume: 100 lg3 ml; Route: IVPB; Rate: 200 ml/hr; Infused Over: 30 mins; Site: left wrist; 03:20 Follow up: Response: No adverse reaction; IV Status: Completed infusion; IV Intake: lg3 100ml 01:15 Drug: fentaNYL (PF) IVP 50 mcg IVP once Route: IVP; Site: left wrist; lg3 03:19 Follow up: Response: No adverse reaction; Marked relief of symptoms lg3 01:15 Drug: Ativan IVP 1 mg IVP once Route: IVP; Site: left wrist; lg3 03:19 Follow up: Response: No adverse reaction; Marked relief of symptoms; Anxiety decreased; lg3 RASS: Alert and Calm (0) 03:18 Not Given (Physician Discretion): ns 0.9% 1000 ml IV at 125 ml/hr continuous lg3 03:19 Not Given (Physician Discretion): [id number] mg IVP once; dilute with 10 mL 0.9% lg3 NaCl; give over 2 minutes 05:25 Drug: fentaNYL (PF) IVP 50 mcg IVP once Route: IVP; Site: left wrist; jw7 06:15 Follow up: Response: No adverse reaction jw7 06:47 Follow up: Response: No adverse reaction; Marked relief of symptoms; Pain is decreased lg3 05:25 Drug: vancoMYCIN IVPB 1 grams IVPB once over 2 hrs Route: IVPB; Infused Over: 2 hrs; 7 Site: left wrist; 06:15 Drug: fentaNYL (PF) IVP 50 mcg IVP once Route: IVP; Site: left wrist; jw7 06:47 Follow up: Response: No adverse reaction; Marked relief of symptoms; Pain is decreased lg3 07:23 Drug: diphenhydrAMINE IVP 25 mg IVP once Route: IVP; Site: left wrist; cp4 07:24 Drug: Haloperidol IVP 5 mg IVP once Route: IVP; Site: left wrist; cp4 Medication: 08:52 VIS not applicable for this client. ld1 Intake: 03:20 IV: 100ml; Total: 100ml. lg3 03:20 IV: 150ml; Total: 250ml. lg3 03:21 IV: 1000ml; Total: 1250ml. lg3 Outcome: 05:06 ER care complete, transfer ordered by sp4 08:52 Transferred by ground EMS ld1 08:52 Condition: stable 08:52 Instructed on the need for transfer, 08:52 Patient left the ED. ld1 Signatures: Dispatcher [employer] EDMS Esther Camarillo Lacie, RN RN lg3 Beatriz Powell RN RN ld1 Bette Cheung RN RN jw7 Mena Murrieta Sergey, MD MD sp4 Bambi Guerrero cp4 Corrections: (The following items were deleted from the chart) 06:14 06:13 fentaNYL (PF) IVP 50 mcg IVP in left hand jw7 jw7 06:14 05:25 fentaNYL (PF) IVP 50 mcg IVP in left hand jw7 jw7 06:46 05:15 BP 99 / 68; Pulse 93bpm; Resp 15bpm; Spontaneous; Pulse Ox 99% RA; lg3 lg3
[2022-11-26] MEDS ORDERED: NA CHLORIDE 0.9% 250 ML ONE (05:14)
[2022-11-26] MEDS ORDERED: VANCOMYCIN 1 GM/VIAL ONE (05:14)
[2022-11-26 05:36] LABS: Specific Gravity 1.012 (1.005-1.030); Urine Bacteria <20 /HPF (<20); Urine Bilirubin NEGATIVE (Negative); Urine Blood Negative (Negative); Urine Clarity Turbid (Clear); Urine Color Light-Yellow (Yellow); Urine Glucose NEGATIVE (Negative); Urine Protein TRACE (Negative); Urine RBC <5 /HPF (None Seen); Urine Urobilinogen Normal (Normal)
[2022-11-26 05:37] LABS: Specific Gravity 1.014 (1.005-1.030); Urine Bacteria <20 /HPF (<20); Urine Bilirubin NEGATIVE (Negative); Urine Blood Negative (Negative); Urine Clarity Turbid (Clear); Urine Color Light-Yellow (Yellow); Urine Glucose NEGATIVE (Negative); Urine Mucus Slight /HPF (None Seen); Urine Protein TRACE (Negative); Urine RBC <5 /HPF (None Seen); Urine Urobilinogen Normal (Normal)
[2022-11-26 06:22] LABS: SARS-CoV-2 Antigen Rapid Res Negative (Negative)
[2022-11-26] MEDS ORDERED: HALOPERIDOL LACT 5 MG/ML INJ ONE (07:28)
[2022-11-26] MEDS ORDERED: DIPHENHYDRAMINE 50 MG/ML VIAL ONE (07:32)
[2022-11-26 09:09] VITALS: TEMP 98.4
[2022-11-26 09:15] VITALS: BP 99/68; O2SAT 99
--- NOTE | 2022-11-26 17:37 | RAD REPORT ---
EXAM DESCRIPTION: CT - Abdomen Pelvis Wo Contrast - 11/26/2022 7:06 am CLINICAL HISTORY: 37 years Female back pain , Urostomies, history of cervical cancer and radiation TECHNIQUE: Axial CT imaging of the abdomen and pelvis was performed without oral or intravenous cont rast. Sagittal and coronal reconstructed images were then performed. The CT study is performed acco rding to ALARA (as low as reasonably achievable) or ALARA/IMAGE GENTLY, with automatic adjustment of mA and/or kV according to patient size. Performed on: 11/26/2022 at 2:19 AM COMPARISON: CT abdomen and pelvis without IV contrast performed on 11/10/2022. FINDINGS: Limitations: Overall evaluation is limited without intravenous contrast. Lung bases: The lung bases are clear. Liver: The liver is enlarged and measures approximately 19.5 cm in craniocaudal dimension. No focal h epatic abnormalities are appreciated on this unenhanced scan. Liver attenuation is within normal limi ts. Spleen: The spleen is normal in size, configuration and attenuation. No focal splenic abnormalities a re appreciated on this unenhanced scan. Gallbladder and bile duct: The gallbladder is well distended. There is some increased attenuation w ithin the dependent gallbladder lumen which may be due to sludge. There is no biliary ductal dilatati on. Pancreas: The pancreas is grossly normal in size and configuration. Adrenal Glands: The adrenal glands are normal in size and configuration. Kidneys: The kidneys are normal in size and configuration. There are bilateral nephrostomy catheters. There is no evidence of hydronephrosis. There is no evidence of nephrolithiasis. No focal renal abno rmalities are identified. Stomach: The stomach is grossly normal. There is no definite hiatal hernia. Bowel: The bowel gas pattern is non specific and non obstructive. There is some oral contrast present within the colon. Appendix: The appendix is normal. Free air: There is no evidence of free air. Free fluid: There is no evidence of free fluid. Vasculature: The aorta is normal in caliber and contour. The inferior vena cava is grossly unremarkab le. Lymphadenopathy: No pathologic lymphadenopathy is identified. Bladder: The bladder is incompletely distended on this examination. There is diffuse bladder wall thi ckening. There is air in the bladder which is concerning for an infectious etiology. There is also a fistulous communication between the lower uterine segment and the bladder. Reproductive: Again demonstrated is fluid and gas in the endometrium extending into the vagina with f istulous communication of the lower uterine segment to the bladder. Findings are similar when compare d to the prior study. Bones: No acute osseous abnormalities are identified. There is mild degenerative disc disease at L5-S 1. Soft tissues: No acute soft tissue abnormalities are identified. IMPRESSION: 1. Again demonstrated is fluid and gas in the endometrium extending into the vagina wi th fistulous communication of the lower uterine segment to the bladder. Findings are similar when com pared to the prior study and are again concerning for an abscess. 2. Diffuse bladder wall thickening with air in the bladder secondary to fistulous communication wit h the lower uterine segment and probable intrauterine infection. 3. Bilateral nephrostomy catheters without evidence of hydronephrosis. 4. Hepatomegaly. 5. Suspect gallbladder sludge. Electronically signed by: Amparo Palomares DO 11/26/2022 4:11 AM CDT Due to temporary technical issues with the PACS/Fluency reporting system, reports are being signed by the in house radiologists without review as a courtesy to insure prompt reporting. The interpreting radiologist is fully responsible for the content of the report
== END 2022-11-26 08:52 | disposition short-term general hospital (02) ==
LOC: ER 00:32
DX: N73.9 Female pelvic inflammatory disease, unspecified (principal); N30.00 Acute cystitis without hematuria; N71.9 Inflammatory disease of uterus, unspecified; C53.9 Malignant neoplasm of cervix uteri, unspecified; Z93.6 Other artificial openings of urinary tract status
CPT/HCPCS: 36415; 74176; 80053; 81001; 83605; 83690; 84703; 85025; 86140; 87040; 87086; 87088; 87811; J1200; J1630; J2405; J3010; J7030; J7050

== ENCOUNTER 2022-12-25 20:19 | Inpatient (IN) | payer OTHER, SELFPAY ==
--- OUTSIDE RECORDS SUMMARY | 2022-12-25 20:31 | XMS REPORT | Continuity of Care Document ---
:1985 Author Organization [facility] t Address [address] [place] [address] Support Name Relationship Address Phone Jojo Heath Parent [address] [phone] [place] [address] Jojo Heath Parent Unavailable Jojo Heath Mother [address] [place] [address] Unavailable M [address] [place] [address] FEDERAL, LONGTERM OTHERRELATIONSHIP [address] [phone] [place] [address] Un[address] [facility] [address] FEDERAL, LONGTERM OTHERRELATIONSHIP [address] [place] [place] [address] FEDERAL, LONGTERM OTHERRELATIONSHIP [address] [phone] [place] [address] ANDI HEATH Unavailable [phone] JOJO RASCON Unavailable Unavailable JOJO HEATH M [address] [place] [address] Josh HeathCma Mother [address] [phone] [place] [address] GURMEET JIMENEZ OT [address] [phone] [place] [address] ALEJANDRO MERCEDES EXT 239 OT [phone] [place] [address] WOMEN'S [employer], [employer]M OTHER[employer]ATIONSHIP [address] [place] [address] WOMEN'S [employer], [employer]TERM OTHERRELATIONSHIP [address] [phone] [place] [address] Care Team Providers Name Role Phone Pcp, Patient Does Not Have A Primary Care Physician [phone] OUMAR KATHLEEN Attending Clinician Unavailable WASHINGTON RAMOS Attending Clinician Unavailable EDWIGE STEPHENS Attending Clinician Unavailable Armond Owens Attending Clinician Unavailable INEZ SEALS Attending Clinician Unavailable Inez Seals MD Attending Clinician Physics, longterm Rad Onc Attending Clinician Unavailable Fiona Aldridge Attending Clinician Unavailable Angelica Ngo LVN Attending Clinician MANDIE TRENT Attending Clinician Unavailable MANDIE TRENT Attending Clinician Unavailable Jackelyn Leigh Attending Clinician Mandie Trent MD Attending Clinician Louisa Bryant RN Attending Clinician NORI RICO Attending Clinician Unavailable CATHERINE MOONEY Attending Clinician Unavailable SARAH SANDOVAL Attending Clinician Unavailable Jojo Escobar Attending Clinician KEVIN JACOBO Attending Clinician Unavailable Doctor Unassigned, [place] Attending Clinician Unavailable ELLI ENCARNACION Attending Clinician Unavailable Elli Encarnacion MD Attending Clinician Vern Bell DO Attending Clinician BEN HUNG Attending Clinician Unavailable MT COY Attending Clinician Unavailable Farzaneh Horvath Attending Clinician Amalia George MD Attending Clinician [phone] Hussein Winslow MD Attending Clinician Eleni Gramajo MD Attending Clinician [phone] ELENI GRAMAJO Attending Clinician Unavailable Boy Ndiaye Attending Clinician Unavailable Jodie ANDRADE, Hebert Joaquin Attending Clinician [phone] Gabe Casas Attending Clinician Unavailable Livier Carver Attending Clinician Unavailable Sidney ANDRADE, Bradley Rich Attending Clinician [phone] Rick ANDRADE, Noris Castaneda Attending Clinician Ajay ANDRADE, Catherine Blanc Attending Clinician [phone] Miah ANDRADE, Nathaniel Izaguirre Attending Clinician Carter ANDRADE, Dana Attending Clinician DANA VILLARREAL Attending Clinician Unavailable Louisa Sosa Attending Clinician Unavailable _BVWC_South_J Attending Clinician Unavailable Dallin Sanchez Attending Clinician Unavailable ABI ZHU Attending Clinician Unavailable WASHINGTON RAMOS Admitting Clinician Unavailable Armond Owens Admitting Clinician Unavailable MANDIE TRENT Admitting Clinician Unavailable Mandie Trent MD Admitting Clinician HERBERT PARKS Admitting Clinician Unavailable SARAH SANDOVAL Admitting Clinician Unavailable KEVIN JACOBO Admitting Clinician Unavailable ELLI ENCARNACION Admitting Clinician Unavailable Elli Encarnacion MD Admitting Clinician MT COY Admitting Clinician Unavailable AMALIA GEORGE Admitting Clinician Unavailable Bárbara Lemons Admitting Clinician Unavailable CATHERINE MOONEY Admitting Clinician Unavailable _BVW_South_Cherise Admitting Clinician Unavailable Payers Payer Name Policy Type Policy Number Effective Date Expiration Date S ource GENERIC [id number] 2022 INSTIT,S[facility],LTAC,R 00:00:00 [facility] [place] [id number] 2022 2022 00:00:00 00:00:00 [place] [id number] [place] [id number] 2015 2015 00:00:00 00:00:00 Problems Condition Condition Condition Status Onset Resolution Last Treating Co mments Source Name Details Category Date Date Treatment Clinician Date Chronic Chronic Disease Active 2022-03 Univers anemia anemia 0-10 ity of 00:00: [address] Branch Hyponatrem Hyponatrem Disease Active 2022-03 U nivers ia ia 0-10 ity of 00:00: [address] Obstructiv Obstructiv Disease Active 2022-03 U nivers e e 0-10 ity of nephropath [place]ropath [place] [facility] Branch Pain Pain Disease Active 2022-03 Univers 0-09 ity of 00:00: [address] [facility] Malignant Malignant Disease Active 2022-03 Uni vers neoplasm neoplasm 0-09 ity of cervix cervix 00:00: [address] Branch Chronic Chronic Disease Active 2022-03 Univers pelvic pelvic 0-09 ity of pain in pain in 00:00: [place] female female 00 [facility] Acute Acute Disease Active 2022-03 Univers kidney kidney 0-09 ity of injury injury 00:00: [address] History of History of Disease Active 2022-03 U nivers drug use drug use 0-09 ity of 00:00: [place] [facility] Branch Complicate Complicate Disease Active U nivers d UTI d UTI 6-08 ity of (urinary (urinary 00:00: [place] tract tract 00 Medical infection) infection) Br anch Cervical Cervical Disease Active Unive rs cancer cancer 6-05 ity of 00:00: [address] Branch Acute on Acute on Disease [facility] blood loss blood loss 00:00: Me dical anemia anemia 00 Center Cervical Cervical Disease Active 2021-03 [facility] [place] Symptomati Symptomati Disease Active 2021-[address] [facility] anemia c anemia 2-[facility] 00 Center Vaginal Vaginal Disease Active 2021-[address] bleeding bleeding 2-[facility] 00 [place] HGSIL on HGSIL on Disease Active Overview: Un noble cytologic cytologic 09-19 [place] i ty of smear of smear of 00:00: g of this [place] as cervix cervix 00 note Medical might be Branch different from the original. With +hpv Trichomona Trichomona Disease Active U nivers l l 7-13 ity of vulvovagin vul[place]ovagin [place] 00 [facility] Supervisio Supervisio Disease Active U nivers n of n of 7-09 ity of high-risk high-risk 00:00: [place] 00 [facility] Pap smear Pap smear Disease Active Overview: Univers of cervix of cervix 08-10 Formatt[place] i ty of with with 00:00: g of this [place] ASCUS, ASCUS, 00 note Medical cannot cannot might be Branch exclude exclude different HGSIL HGSIL from the original. Refer to colpo Multiparit Multiparit Disease Active U nivers y y 5-25 ity of 00:00: [facility] Tobacco Tobacco Disease Active Univers smoking smoking 5-25 ity of affecting affecting 00:00: [place] [facility] AMANDA (iron AMANDA (iron Disease Recurre [facility] deficiency deficiency [facility] anemia) anemia) [facility] Cervical Cervical Disease Recurre [facility] carcinoma carcinoma [facility] Drug use Drug use Disease Recurre [facility] Incarcerat Incarcerat Disease Recurre [facility] ion ion [facility] Hypotensio Hypotensio Disease Active C [facility] n due to n due to [facility] blood loss blood loss [facility] Hemorrhagi Hemorrhagi Disease Active C HI [facility] c shock c shock [facility] Acute pain Acute pain Disease Active C HI [facility] Allergies, Adverse Reactions, Alerts Allergy Allergy Status Severity Reaction(s) Onset Inactive Treating Comm ents Source Name Type Date Date Clinician Ibuprofe Propensi Active Anaphylaxis 2022-03 U nivers n ty to 0-09 ity of adverse 00:00: [place] reaction 00 Medical s Branch Penicill Propensi Active Hives 2022-03 Univer s ins ty to 0-09 ity of adverse 00:00: [place] reaction Medical s Branch IBUPROFE DRUG Active Anaphylaxis 2022-03 Uni vers N INGREDI 0-09 ity of 00:00: [place] [facility] PENICILL Drug Active Anaphylaxis 2022-03 Uni vers INS Class 0-09 ity of 00:00: [place] [facility] Branch IBUPROFE DRUG Active Hives Univers N INGREDI 6-05 ity of 00:00: [place] [facility] PENICILL DRUG Active Hives Univers IN INGREDI 6-05 ity of 00:00: [place] 00 Medical Branch Ibuprofe Propensi Active Hives Univer s n ty to 605 ity of adverse 00:00: [place] reaction 00 Medical s Branch Penicill Propensi Active Hives Univer s in ty to 6-05 ity of adverse 00:00: [place] reaction 00 Medical s Branch Ibuprofe Propensi Active [facility] 4 [facility] adverse 00:00: Medical reaction 00 Center s Penicill Propensi Active [facility] to 4 [facility] adverse 00:00: Medical reaction 00 Center s PENICILL Allergy Active [facility] INS 4- 00:00: 00 IBUPROFE Allergy Active [facility] N 4- 00:00: 00 ibup[place]fe [place] [facility] 00 [place] NSAIDS Allergy Active 2021-03 St. (Non-[place] to [facility] roida substanc 09:12: [facility]Inf e [facility] ibuprofe Allergy Active 2021-03 St. n to [facility] substanc 09:05: [facility] e [facility] l [facility] Penicill Allergy Active 2021-03 St. ins to [facility] substanc 09:05: Regiona e [facility] l Health NSAIDS DA Active U 2021-03 [facility] Anti-Inf 00 lamma Penicill DA Active U 2021-03 STLSJX ins 00:00: 00 ibuprofe DA Active U 2021-03 STLSJX n 00:00: 00 IBPROFEN DA Active [place] EDEMA 2018-0 [facility] 2-05 [facility] 00:[facility] Penicill DA Active U 2018-0 [facility] ins 2 [facility] 00:[facility]: [place] [facility] Penicill DA Active U RASH-UNKNOWN 2018- HC A ins 2 [facility] 00:00: [place] [facility] Penicill DA Active U 2018-0 [facility] ins -18 [facility] 00:00: [place] [facility] [place] IBUPROFE DRUG Active Low Hives Univers N INGREDI 3-12 ity of 00:00: [place] 00 Medical Branch Ibuprofe Propensi Active Hives Pt Univer s n ty to 12 reports ity of adverse 00:00: itching [place] reaction 00 with some Medic al s to hives. Branch drug PENICILL DRUG Active Hives Univers IN G INGREDI 310 ity of 00:00: [place] 00 Medical Branch Penicill Propensi Active Hives Univer s in G ty to 3-10 ity of adverse 00:00: [place] reaction 00 Medical s Branch NO KNOWN Allergy Active [facility] Social History Social Habit Start Date Stop Date Quantity Comments Source History SDOH University o f Alcohol Std Drinks [place] [facility] History SDOH University o f Alcohol Binge [place] [facility] al [facility] History SDOH University o f Social Connections [place] [facility] Get Together Branch History SDOH University o f Social Connections [place] [facility] Druze Branch History SDOH University o f Social Connections [place] [facility] Membership Branch History SDOH University o f Social Connections [place] [facility] Meetings Branch Gender identity Universit y of [facility] Sexual orientation Univer sity of [facility] Alcohol intake 2022-12-20 2022-12-20 Ex-drinker University of 00:00:00 00:00:00 (finding) [facility] Cigarettes smoked 2022-10-23 2022-10-23 Univers ity of current (pack per 00:00:00 00:00:00 [facility]) - Reported Branch Cigarette 2022-10-23 2022-10-23 University of pack-years 00:00:00 00:00:00 [facility] History of Social 2022-10-23 2022-10-23 Univers ity of function 00:00:00 00:00:00 [facility] Tobacco use and 2022-10-23 2022-10-23 Smokeless tobacco Un iversity of exposure 00:00:00 00:00:00 non-user [facility] Tobacco Comment 2022-10-23 2022-10-23 Patient is living Un iversity of 00:00:00 00:00:00 temporarily at [facility] with friends. Branch Was released from nursing home in April 2022. History SDOH 2022-08-13 2022-08-13 1 University o f Alcohol Frequency 00:00:00 00:00:00 [facility] Branch History SDOH 2022-08-13 2022-08-13 5 University o f Social Connections 00:00:00 00:00:00 [place] [facility] Phone Branch History SDOH 2022-08-13 2022-08-13 7 University o f Social Connections 00:00:00 00:00:00 [place] [facility] Living Branch History SDOH 2022-08-13 2022-08-13 0 University o f Physical Activity 00:00:00 00:00:00 [place] M edical DPW Branch History SDOH 2022-08-13 2022-08-13 0 University o f Physical Activity 00:00:00 00:00:00 [place] M edical MPS Branch History SDOH 2022-08-13 2022-08-13 5 University o f Financial 00:00:00 00:00:00 [place] [facility] History SDOH Food 2022-08-13 2022-08-13 1 Univers ity of Worry 00:00:00 00:00:00 [place] [facility] History SDOH Food 2022-08-13 2022-08-13 1 Univers ity of Scarcity 00:00:00 00:00:00 [place] [facility] History SDOH 2022-08-13 2022-08-13 2 University o f Transport Med 00:00:00 00:00:00 [place] Medic al Branch History SDOH 2022-08-13 2022-08-13 2 University o f Transport Non-Med 00:00:00 00:00:00 [place] M edical Branch History SDOH 2022-08-13 2022-08-13 2 University o f Housing Unable to 00:00:00 00:00:00 [place] M edical Pay Branch History SDOH 2022-08-13 2022-08-13 1 University o f Housing Places 00:00:00 00:00:00 [place] Medi gray Lived Branch History SDOH 2022-08-13 2022-08-13 2 University o f Housing Homeless 00:00:00 00:00:00 [place] Me dical Last Year Branch History of tobacco 2015-06-02 Passive smoker Un iversity of use 00:00:00 [place] [facility] Sex [birth year] At [birth year] Universit y of 00:00:00 00:00:00 [facility] Branch Smoking Status Start Date Stop Date Source Smokes tobacco daily 2022-10-23 00:00:00 Univers ity of [place] [facility] Tobacco smoking University [facility] xa consumption unknown Medical Bran ch Ex-smoker 2022-02-25 00:00:00 2022-02-25 [facility] 00:00:00 Center Medications Ordered Filled Start Stop Current Ordering Indication Dosage Frequency Signature Comments Components Source Medication Medication Date Date Medication? Clinician (SIG) Name Name magnesium 2022-03 Yes [id number] 30mL Take 30 mL Univers hydroxide 0-12 by mouth ity of 400 mg/5 mL 00:[place] suspension 00 morning. Medic al Branch magnesium 2022-03 Yes [id number] 30mL Take 30 mL Univers hydroxide 0-12 by mouth ity of 400 mg/5 mL 00:00[place] suspension morning. Medic al Branch magnesium 2022-03 Yes [id number] 30mL Take 30 mL Univers hydroxide 0-12 by mouth ity of 400 mg/5 mL 00:00[place] suspension morning. Medic al Branch magnesium 2022-03 Yes [id number] 30mL Take 30 mL Univers hydroxide 0-12 by mouth ity of 400 mg/5 mL 00:00[place] suspension 00 morning. Medic al Branch magnesium 2022-03 Yes [id number] 30mL Take 30 mL Univers hydroxide 0-12 by mouth ity of 400 mg/5 mL 00:00[place] suspension 00 morning. Medic al Branch magnesium 2022-03 Yes 30mL 30 mL, Univer s hydroxide 0-11 Oral, ity of (MILK OF 14:00: DAILY, [place] MAGNESIA) 00 First dose Medi gray 400 mg/5 mL on Fri Branch suspension 12/18/22 30 mL at 0900, Until Discontinu ed, Routine Lidocaine 2022-03 Yes 2{patch 2 Patch, U nivers (LIDOCARE) 0-11 } Topical, ity o f 4 % patch 2 01:00: Administer [place] Patch 00 over 12 Medical Hours, Branch Q12H, First dose on Fri12/17/22 at 2000, Until Discontinu ed, Routine simethicone 2022-03 Yes [id number] 160mg Take 2 Univers 80 mg 0-11 tablets by ity of chewable 00:00: mouth [place] tablet 00 after Medical meals and Branch at bedtime. simethicone 2022-03 Yes [id number] 160mg Take 2 Univers 80 mg 0-11 tablets by ity of chewable 00:00: mouth [place] tablet 00 after Medical meals and Branch at bedtime. simethicone 2022-03 Yes [id number] 160mg Take 2 Univers 80 mg 0-11 tablets by ity of chewable 00:00: mouth [place] tablet 00 after Medical meals and Branch at bedtime. simethicone 2022-03 Yes [id number] 160mg Take 2 Univers 80 mg 0-11 tablets by ity of chewable 00:00: mouth [place] tablet 00 after Medical meals and Branch at bedtime. simethicone 2022-03 Yes [id number] 160mg Take 2 Univers 80 mg 0-11 tablets by ity of chewable 00:00: mouth [place] tablet 00 after Medical meals and Branch at bedtime. acetaminoph 2022-03- Yes [id number] 650mg Take 2 Univers en 325 mg 0-11 10-11 tablets by ity of tablet 00:00: 04:59 mouth [place] 00 :00 every 6 Medical (six) Branch hours as needed for Pain (scale 1-3). acetaminoph 2022-03- Yes [id number] 650mg Take 2 Univers en 325 mg 0-11 10-11 tablets by ity of tablet 00:00: 04:59 mouth [place] 00 :00 every 6 Medical (six) Branch hours as needed for Pain (scale 1-3). acetaminoph 2022-03- Yes [id number] 650mg Take 2 Univers en 325 mg 0-11 10-11 tablets by ity of tablet 00:00: 04:59 mouth [place] 00 :00 every 6 Medical (six) Branch hours as needed for Pain (scale 1-3). acetaminoph 2022-03- Yes [id number] 650mg Take 2 Univers en 325 mg 0-11 10-11 tablets by ity of tablet 00:00: 04:59 mouth [place] 00 :00 every 6 Medical (six) Branch hours as needed for Pain (scale 1-3). acetaminoph 2022-03- Yes [id number] 650mg Take 2 Univers en 325 mg 0-11 10-11 tablets by ity of tablet 00:00: 04:59 mouth [place] 00 :00 every 6 Medical (six) Branch hours as needed for Pain (scale 1-3). Lidocaine 2022-03- Yes [id number] 2{patch Apply 2 Univers % patch 0-11 10-26 } Patches to ity o f 00:00: 04:59 area(s) [place] 00 :00 every 12 Medical (twelve) Branch hours for 14 days. proMETHazin 2022-03- Yes [id number] 12.5mg Take 1 Univers e 12.5 mg 0-11 10-26 tablet by ity of tablet 00:00: 04:59 mouth [place] 00 :00 every 4 Medical (four) Branch hours as needed for Nausea and Vomiting (N/V) for up to 14 days. Lidocaine 2022-03- Yes [id number] 2{patch Apply 2 Univers % patch 0-11 10-26 } Patches to ity o f 00:00: 04:59 area(s) [place] 00 :00 every 12 Medical (twelve) Branch hours for 14 days. proMETHazin 2022-03- Yes [id number] 12.5mg Take 1 Univers e 12.5 mg 0-11 10-26 tablet by ity of tablet 00:00: 04:59 mouth [place] 00 :00 every 4 Medical (four) Branch hours as needed for Nausea and Vomiting (N/V) for up to 14 days. Lidocaine 2022-03- Yes [id number] 2{patch Apply 2 Univers % patch 0-11 10-26 } Patches to ity o f 00:00: 04:59 area(s) [place] 00 :00 every 12 Medical (twelve) Branch hours for 14 days. proMETHazin 2022-03- Yes [id number] 12.5mg Take 1 Univers e 12.5 mg 0-11 10-26 tablet by ity of tablet 00:00: 04:59 mouth [place] 00 :00 every 4 Medical (four) Branch hours as needed for Nausea and Vomiting (N/V) for up to 14 days. Lidocaine 2022-03- Yes [id number] 2{patch Apply 2 Univers % patch 0-11 10-26 } Patches to ity o f 00:00: 04:59 area(s) [place] 00 :00 every 12 Medical (twelve) Branch hours for 14 days. proMETHazin 2022-03- Yes [id number] 12.5mg Take 1 Univers e 12.5 mg 0-11 10-26 tablet by ity of tablet 00:00: 04:59 mouth [place] 00 :00 every 4 Medical (four) Branch hours as needed for Nausea and Vomiting (N/V) for up to 14 days. Lidocaine 4 2022-03- Yes [id number] 2{patch Apply 2 Univers % patch 0- 10-26 } Patches to ity o f 00:00: 04:59 area(s) [place] 00 :00 every 12 Medical (twelve) Branch hours for 14 days. proMETHazin 2022-03- Yes [id number] 12.5mg Take 1 Univers e 12.5 mg 0-11 10-26 tablet by ity of tablet 00:00: 04:59 mouth [place] 00 :00 every 4 Medical (four) Branch hours as needed for Nausea and Vomiting (N/V) for up to 14 days. traMADoL 50 2022-03- Yes [id number] 100mg Take 2 Un noble mg tablet 0-11 10-19 tablets by ity of 00:00: 04:59 mouth [place] 00 :00 every 8 Medical (eight) Branch hours for 7 days. Indication s: chronic pain traMADoL 50 2022-03- Yes [id number] 100mg Take 2 Un noble mg tablet 0-11 10-19 tablets by ity of 00:00: 04:59 mouth [place] 00 :00 every 8 Medical (eight) Branch hours for 7 days. Indication s: chronic pain traMADoL 50 2022-03- Yes [id number] 100mg Take 2 Un noble mg tablet 0-11 10-19 tablets by ity of 00:00: 04:59 mouth [place] 00 :00 every 8 Medical (eight) Branch hours for 7 days. Indication s: chronic pain traMADoL 50 2022-03- Yes [id number] 100mg Take 2 Un noble mg tablet 0-11 10-19 tablets by ity of 00:00: 04:59 mouth [place] 00 :00 every 8 Medical (eight) Branch hours for 7 days. Indication s: chronic pain traMADoL 50 2022-03- Yes [id number] 100mg Take 2 Un noble mg tablet 0-11 10-19 tablets by ity of 00:00: 04:59 mouth [place] 00 :00 every 8 Medical (eight) Branch hours for 7 days. Indication s: chronic pain acetaminoph 2022-03 No 1000mg 1,000 mg, Univers en ADULT 0-10 10-11 IV ity of (OFIRMEV) 23:00: 16:53 [place], [place] injection 00 :00 at 400 Medical 1,000 mg mL/hr Branch Administer over 15 Minutes, Q6H, 4 doses, First dose on Fri12/17/22 at 1800, Last dose on Fri12/18/22 at 1200, Routine
Indicatio n: Non-periop erative Patient
Approved by: Anesthesia Pain Service traMADoL 2022-03 Yes 100mg 100 mg, Unive rs (ULTRAM) 0-10 Oral, Q8H, ity o f tablet 100 19:00: First dose [place] mg 00 on [facility] 12/17/22 Branch at 1400, Until Discontinu ed, Routine gabapentin 2022-03 Yes 300mg 300 mg, Uni vers (NEURONTIN) 0-10 Oral, TID, it y of capsule 300 19:00: First dose [place] mg 00 on [facility] 12/17/22 Branch at 1400, Until Discontinu ed, Routine simethicone 2022-03 Yes 160mg 160 mg, Un noble (GAS RELIEF 0-10 Oral, ity of (SIMETHICON 14:00: PC[place]HS, [place] E)) 00 First dose Medical chewable on [facility] tablet 160 12/17/22 mg at 0900, Until Discontinu ed, Routine oxyCODONE 2022-03 Yes 10mg 10 mg, Univer s immediate 0-10 Oral, ity of release 13:15: Q4HPRN, [place] tablet 10 00 Starting Medica l mg on [facility] 12/17/22 at 0815, Until Discontinu ed, Routine, Pain (scale 7-10)
F aculty member approving Restricted medication : MANDIE TRENT HYDROmorpho 2022-03 No .5mg 0.5 mg, Un noble ne 0-10 10-10 Slow IV ity of (DILAUDID) 13:15: 13:24 Push, [place] injection 00 :00 Q6HPRN, 1 Medic al 0.5 mg dose, Branch Starting on Fri12/17/22 at 0815, Until Discontinu ed, Routine, Pain (scale 7-10)
U se approved by (Faculty): [employer] SUPERVISOR/ONC FACULTY docusate 2022-03 Yes 100mg 100 mg, Unive rs (COLACE) 0-10 Oral, ity of capsule 100 13:00: Q12H, [place] mg 00 First dose Medical on Fri12/17/22 at 0800, Until Discontinu ed, Routine oxyCODONE 2022-03- No 5mg 5 mg, Univer s immediate 0-10 10-10 Oral, Q6H ity of release 07:00: 13:09 ABX, First [place] as tablet 5 mg 00 :03 dose Medical (after Branch last modificati on) on Fri12/17/22 at 0200, Until Discontinu ed, Routine
education faculty member approving Restricted medication : MANDIE TRENT HYDROmorpho 2022-03 No .5mg 0.5 mg, Un noble ne 0-10 10-10 Slow IV ity of (DILAUDID) 04:46: 13:09 Push, [place] injection 08 :27 Q4HPRN, 3 Medic al 0.5 mg doses, Branch Starting on Fri12/16/22 at 2346, Until Fri12/17/22 at 0809, Routine, Pain (scale 7-10)
U se approved by (Faculty): [employer]ING [employer]ATION SUPERVISOR/ONC FACULTY acetaminoph 2022-03 Yes 650mg 650 mg, Un noble en 0-10 Oral, ity of (TYLENOL) 04:45: Q6HPRN, [place] tablet 650 35 Starting Medic al mg on Fri12/16/22 at 2345, Until Discontinu ed, Routine, Pain (scale 1-3) lactated 2022-03 Yes 1000mL at 42 Univer s ringers IV 0-10 mL/hr, ity of infusion 04:30: 1,000 mL, [place] 1,000 mL 00 IV Medical Infusion, Branch CONTINUOUS , Starting on Fri12/16/22 at 2330, Until Discontinu ed, Routine proMETHazin 2022-03 Yes 12.5mg 12.5 mg, Univers e 0-10 IV ity of (PHENERGAN) 04:22: [place], [place] 12.5 mg in 07 at 200 Medical NS 50 mL IV mL/hr Branch piggyback Administer (CNR) over 15 Minutes, Q4HPRN, Starting on Fri12/16/22 at 2322, Until Discontinu ed, Routine, Nausea and Vomiting (N/V) oxyCODONE 2022-03 No 5mg 5 mg, Univer s immediate 0 10-10 Oral, ity of release 03:45: 02:56 ONCE, 1 [place] tablet 5 mg 00 :00 dose, On [facility] 12/16/22 at 2245, Routine
education faculty member approving Restricted medication : MANDIE TRENT cefTRIAXone 2022-03 No 1000mg 1,000 mg, Univers (ROCEPHIN) 0 10-09 IV ity of 1,000 mg in 22:30: 23:26 [place], [place] NaCl 0.9% 00 :00 ONCE, 1 Medical (NS) 100 mL dose, On Bran ch MINI-BAG Fri12/16/22 at 1730, Administer over 30 Minutes, 100 mL
Reas on for Anti-Infec tive: Documented Infection< br>Documen erna Infection Site: Urine<br&g t;Duration of Therapy: Other (see Comments) NaCl 0.9% 2022-03 No 500mL at 999 Univ ers (NS) bolus 0- 10-09 mL/hr, 500 it y of infusion 22:30: 22:31 mL, IV [place] 500 mL 00 :00 Infusion, Medical ONCE, 1 Branch dose, On Fri12/16/22 at 1730, STAT NaCl 0.9% 2022-03 No 1000mL at 999 Uni vers (NS) bolus 0- 10-09 mL/hr, ity of infusion 20:00: 20:30 1,000 mL, Larry as 1,000 mL 00 :00 IV Medical Infusion, Branch ONCE, 1 dose, On Fri12/16/22 at 1500, STAT sulfamethox 2022- No [id number] 1{tbl} Take 1 Univers azole-trime 08-16 tablet by it y of thoprim 00:00: 04:59 mouth in [place] 800-160 mg 00 :00 the Medical per tablet morning Branch and 1 tablet in the evening. Do all this for 12 days. sulfamethox 2022-0 2022- No [id number] 1{tbl} Take 1 Univers azole-trime 6-11 13-22 tablet by it y of thoprim 00:00: 04:59 mouth in [place] 800-160 mg 00 :00 the Medical per tablet morning Branch and 1 tablet in the evening. Do all this for 12 days. sulfamethox 2022-0 2022- No [id number] 1{tbl} Take 1 Univers azole-trime 08-1622 tablet by it y of thoprim 00:00: 04:59 mouth in [place] 800-160 mg 00 :00 the Medical per tablet morning Branch and 1 tablet in the evening. Do all this for 12 days. sulfamethox 2022-0 2022- No [id number] 1{tbl} Take 1 Univers azole-trime -22 tablet by it y of thoprim 00:00: 04:59 mouth in [place] 800-160 mg 00 :00 the Medical per tablet morning Branch and 1 tablet in the evening. Do all this for 12 days. sulfamethox 2022-0 2022- No [id number] 1{tbl} Take 1 Univers azole-trime 08-16- tablet by it y of thoprim 00:00: 04:59 mouth in [place] 800-160 mg 00 :00 the Medical per tablet morning Branch and 1 tablet in the evening. Do all this for 12 days. sulfamethox 2022-0 2022- No [id number] 1{tbl} Take 1 Univers azole-trime 08-16 tablet by it y of thoprim 00:00: 04:59 mouth in [place] 800-160 mg 00 :00 the Medical per tablet morning Branch and 1 tablet in the evening. Do all this for 12 days. sulfamethox 2022-0 2022- No [id number] 1{tbl} Take 1 Univers azole-trime 08-16-08 tablet by it y of thoprim 00:00: 00:00 mouth in [place] 800-160 mg 00 :00 the Medical per tablet morning Branch and 1 tablet in the evening. Do all this for 11 days. vancomycin 2022-2022- No 15mg/kg 1,000 mg Univers (VANCOCIN) 08-15-13 (rounded ity of 1,000 mg in 12:15: 12:14 [place] 930 [place] NaCl 0.9% 00 :00 mg = 15 Medical (NS) 250 mL mg/kg ?62 [facility] VIAL-MATE kg), IV IV Piggyback, piggyback Q12H ABX, 10 doses, First dose on Mary Beth 08/15/22 at 0715, Last dose on Fri08/19/22 at 1915, Administer over 60 Minutes, 250 mL
Reas on for Anti-Infec tive: Empiric Therapy for Suspected Infection< br>Empiric Therapy Site: Abdominal< br>Duratio n of therapy: 5 days sennosides- 0 Yes 1{tbl} 1 tablet, Univers docusate 08-15 Oral, ity of sodium 06:15: DAILY, [place] (SENOKOT-S) 00 First dose Me dical 8.6-50 mg on [facility] Branch per tablet 08/15/22 at 1 tablet 0115, Until Discontinu ed, Routine polyethylen Yes 17g 17 g, Unive rs e glycol 08 Oral, ity of 3350 powder 06:15: DAILY, [place] 17 g 00 First dose Medical on [facility] Branch 08/15/22 at 0115, Until Discontinu ed, Routine morpHINE (2 Yes 2mg 2 mg, Slow Univers mg/mL) 08-15 IV Push, ity of injection 2 06:00: Q4HPRN, Larry as mg 00 Starting Medical on [facility] Branch 08/15/22 at 0100, Until Discontinu ed, [...] [id number] 1{tbl} Take 1 U nivers -acetaminop 08-1516 tablet by it y of hen 5-325 [...] No 1000mg 1,000 mg, U nivers (MAXIPIME) 08-13 IV ity of 1,000 mg in 09:00: 08:59 Piggyback, [place] NaCl 0.9% 00 :00 Q12H ABX, Medic al (NS) 100 mL 10 doses, [facility] MINI-BAG First dose on Fri08/13/22 at 0400, [...] Medical (NS) 250 mL mg/kg ?62 [facility] VIAL-MATE kg), IV IV Piggyback, piggyback Q12H [...] ity of 1,000 mg in 21:00: 02:12 [place], [place] NaCl 0.9% 00 :00 ONCE, 1 [...] of water 4 19:30: 20:49 at 25 [place] gram/50 mL 00 :00 mL/hr Medical (8 %) IV Administer Branc h Piggyback 4 over 120 g Minutes, ONCE, 1 dose, On 08/12/22 at 1430, Routine NaCl 0.9% 2022- No 1000mL at 999 Uni vers (NS) bolus 6-05 06-05 mL/hr, ity of infusion 19:00: 19:25 1,000 [...] 14 daily with Center breakfast. folic acid 2022-2023- No 1mg QD Take [address] [facility] [address] (FOLVITE) 1 - 04-06 tablet (1 Marj kes MG tablet 00:00: 23:59 mg total) Me dical 00 :00 by mouth Center in the morning. thiamine 2022-0 2023- No 100mg QD Take 1 [facility] MG -09 10-06 [facility] tablet 00:00: 23:59 (100 mg Medical 00 :00 total) by Center mouth in the morning. folic acid 2022-0 2023- No 1mg QD Take [address] [facility] [address] (FOLVITE) 1 - 04-06 tablet (1 Marj kes MG tablet 00:00: 23:59 mg total) Me dical 00 :00 by mouth Center in the morning. thiamine 2022-2023- No 100mg QD Take 1 [facility] [...] for up to 7 days. PNV without 2016-0 Yes [id number] 1{each} Take 1 Univers Ca-Iron 5-25 09 Each by ity of PsCmplx-FA 00:00: mouth [place] (SELECT-OB, 00 daily. Medica l FOLIC Branch ACID,) 29-1 mg Chew PNV without 2016-0 Yes [id number] 1{each} Take 1 Univers Ca-Iron 5-25 09 Each by ity of PsCmplx-FA 00:00: mouth [place] (SELECT-OB, 00 daily. Medica l FOLIC Branch ACID,) 29-1 mg Chew PNV without 2016-0 Yes [id number] 1{each} Take 1 Univers Ca-Iron 5-25 09 Each by ity of PsCmplx-FA 00:00: mouth [place] (SELECT-OB, 00 daily. Medica l FOLIC Branch ACID,) 29-1 mg Chew PNV without 2016-0 Yes [id number] 1{each} Take 1 Univers Ca-Iron 5-25 09 Each by ity of PsCmplx-FA 00:00: mouth [place] (SELECT-OB, 00 daily. Medica l FOLIC Branch ACID,) 29-1 mg Chew PNV without 2016-0 Yes [id number] 1{each} Take 1 Univers Ca-Iron 5-25 09 Each by ity of PsCmplx-FA 00:00: mouth [place] (SELECT-OB, 00 daily. Medica l FOLIC Branch ACID,) 29-1 mg Chew PNV without 2016-0 Yes [id number] 1{each} Take 1 Univers Ca-Iron 5-25 09 Each by ity of PsCmplx-FA 00:00: mouth [place] (SELECT-OB, 00 daily. Medica l FOLIC Branch ACID,) 29-1 mg Chew PNV without 2015- Yes [id number] 1{each} Take 1 Univers Ca-Iron 5-25 09 Each by ity of PsCmplx-FA 00:00: mouth [place] (SELECT-OB, 00 daily. Medica l FOLIC Branch ACID,) 29-1 mg Chew PNV without 2015- Yes [id number] 1{each} Take 1 Univers Ca-Iron 5-25 09 Each by ity of PsCmplx-FA 00:00: mouth [place] (SELECT-OB, 00 daily. Medica l FOLIC Branch ACID,) 29-1 mg Chew PNV without 2015- Yes [id number] 1{each} Take 1 Univers Ca-Iron 5-25 09 Each by ity of PsCmplx-FA 00:00: mouth [place] (SELECT-OB, 00 daily. Medica l FOLIC Branch ACID,) 29-1 mg Chew Immunizations Ordered Filled Date Status Comments Source Immunization Name Immunization Name TDAP 2015-08-16 Completed University of 00:00:00 [facility] TDAP 2015-08-16 Completed University of 00:00:00 [facility] TDAP 2015-08-16 Completed University of 00:00:00 [facility] TDAP 2013-05-19 Completed University of 00:00:00 [facility] MMR 2013-05-19 Completed University of 00:00:00 [facility] TDAP 2013-05-19 Completed University of 00:00:00 [facility] MMR 2013-05-19 Completed University of 00:00:00 [facility] TDAP 2013-05-19 Completed University of 00:00:00 [facility] MMR 2013-05-19 Completed University of 00:00:00 [facility] TDAP Unknown Completed [facility] MMR Unknown Completed [facility] TDAP Unknown Completed [facility] TDAP Unknown Completed [facility] MMR Unknown Completed [facility] TDAP Unknown Completed [facility] TDAP Unknown Completed [facility] MMR Unknown Completed [facility] TDAP Unknown Completed [facility] TDAP Unknown Completed [facility] MMR Unknown Completed [facility] TDAP Unknown Completed [facility] TDAP Unknown Completed [facility] TDAP Unknown Completed [facility] MMR Unknown Completed [facility] MMR Unknown Completed [facility] TDAP Unknown Completed [facility] TDAP Unknown Completed [facility] Vital Signs Vital Name Observation Time Observation Value Comments Source Systolic blood 2022-12-18 20:40:00 94 mm[Hg] Univer sity of pressure [facility] Diastolic blood 2022-12-18 20:40:00 57 mm[Hg] Unive rsity of pressure [facility] Heart rate 2022-12-18 20:40:00 87 /min Universi ty of [facility] Body temperature 2022-12-18 20:40:00 36.39 Emelyn Univ ersity of [facility] Respiratory rate 2022-12-18 20:40:00 16 /min Univ ersity of [facility] Oxygen saturation in 2022-12-18 20:40:00 98 /min University of Arterial blood by [place] [facility] Pulse oximetry Branch Body weight 2022-12-17 02:21:00 52.164 kg Universi ty [facility] BMI 2022-12-17 02:21:00 19.14 kg/m2 Universi ty [facility] Body height 2022-12-16 18:39:00 165.1 cm Universi ty of [place] [facility] Sikes WEIGHT 2022-11-26 13:53:00 52.617 kg WEIGHT 2022-11-26 13:53:00 52.617 kg WEIGHT 2022-11-10 15:00:00 51.3 kg WEIGHT 2022-11-10 15:00:00 51.3 kg Systolic blood 2022-08-15 20:56:00 104 mm[Hg] Univer sity of pressure [facility] Diastolic blood 2022-08-15 20:56:00 58 mm[Hg] Unive rsity of pressure [facility] Heart rate 2022-08-15 20:56:00 78 /min Universi ty of [facility] Body temperature 2022-08-15 20:56:00 36.39 Emelyn Univ ersity of [facility] Branch Respiratory rate 2022-08-15 20:56:00 18 /min Univ ersity of [place] [facility] Oxygen saturation in 2022-08-15 20:56:00 99 /min University of Arterial blood by [employer] [facility] Pulse oximetry Branch Body weight 2022-08-14 15:00:00 62 kg Universi ty of [facility] BMI 2022-08-14 15:00:00 22.75 kg/m2 [facility] Body height 2022-08-12 16:29:[address] [facility] WEIGHT 2022-07-27 04:25:00 60.328 kg WEIGHT 2022-07-25 [...] 2022-06-08 11:00:00 63.5 kg WEIGHT 2022-03-09 11:47:00 72.879101 kg HEIGHT 2022-03-09 11:47:00 165.1 cm Body Temperature 2022-03-09 09:36:00 97.7 [degF] [facility] Heart Rate 2022-03-09 09:36:00 59 /min [facility] Respiratory rate 2022-03-09 09:36:00 20 /min [facility] Oxygen saturation by 2022-03-09 09:36:00 97 /min [place] Pulse oximetry [facility] BP Systolic 2022-03-09 09:36:00 99 mm[Hg] [facility] BP Diastolic 2022-03-09 09:36:00 58 mm[Hg] [facility] HEIGHT 2022-02-26 17:00:00 165.1 cm WEIGHT 2022-02-26 17:00:00 72.576 kg HEIGHT 2022-02-26 17:00:00 165.1 cm WEIGHT 2022-02-26 17:00:00 72.576 kg Heart rate 2022-06-14 12:46:18 73 /min [facility] Respiratory rate 2022-06-14 12:46:18 18 /min [facility] Oxygen saturation in 2022-06-14 12:46:18 100 /min [facility] Arterial blood by Medical Ce nter Pulse oximetry Body temperature 2022-06-14 12:45:29 36.61 Emelyn [facility] Systolic blood 2022-06-14 12:45:15 100 mm[Hg] [facility] Diastolic blood 2022-06-14 12:45:15 64 mm[Hg] [facility] S t [facility] Body height 2022-06-08 11:00:00 165.1 cm [facility] Body weight 2022-06-08 11:00:00 63.5 kg [facility] BMI 2022-06-08 11:00:00 23.30 kg/m2 [facility] Heart rate 2022-02-27 11:58:02 65 /min [facility] Respiratory rate 2022-02-27 11:58:02 17 /min [facility] Oxygen saturation in 2022-02-27 11:58:02 96 /min [facility] Arterial blood by Medical Ce nter Pulse oximetry Body temperature 2022-02-27 11:57:00 36.89 Emelyn [facility] Systolic blood 2022-02-27 11:56:30 95 mm[Hg] [facility] Diastolic blood 2022-02-27 11:56:30 54 mm[Hg] [facility] height 2022-02-26 18:01:00 165.1 cm [facility] Body weight 2022-02-26 18:01:00 72.6 kg [facility] BMI 2022-02-26 18:01:00 26.63 kg/m2 [facility] Procedures Procedure Date / Time Performing Clinician Source Performed COMP. METABOLIC PANEL 2022-12-18 [facility] ([id number] 15:33:00 Medical Sikes CBC WITH DIFF 2022-12-18 Karlene, [facility] 15:33:00 [facility] POCT TEST 2022-12-17 [place] [facility] 19:30:00 [facility] MRSA / MSSA SCREEN BY PCR, 2022-12-17 Lashell Graham [facility] NARES 15:13:00 [facility] PHOSPHORUS 2022-12-17 [facility] [place] 15:11:00 [facility] MAGNESIUM 2022-12-[address] [facility] [place] 15:11:00 [facility] COMP. METABOLIC PANEL 2022-12-17 [facility] ([id number]) 15:11:00 [facility] TOTAL BETA HCG ASSAY 2022-12-17 [facility] 15:11:00 [facility] CBC WITH DIFF 2022-12-17 [facility] [place] 15:11:00 [facility] CREATININE, URINE RANDOM 2022-12-[address] [facility] 23:26:00 [facility] SODIUM, URINE RANDOM 2022-12-16 Mary Beth Howell [facility] 23:26:00 [facility] URINE DRUG (IMMUNOASSAY) - 2022-12-16 Jackelyn Sorensen [facility] COMPREHENSIVE DRUG SCREEN 23:26:[address] [facility] CT ABDOMEN PELVIS WO 2022-12-16 Jackelyn Sorensen [facility] CONTRAST 20:55:52 [facility] HB ECG ROUTINE & RHYTHM 2022-12-16 Jackelyn Sorensen [facility] STRIP 19:33:20 Medical Branch URINALYSIS 2022-12-16 Jackelyn Sorensen [facility] [place] 19:19:00 Medical Branch LIPASE 2022-12-16 FranchescaJackelyn [facility] [place] 19:18:00 Medical Branch MAGNESIUM 2022-12-16 Jackelyn Sorensen [facility] xa 19:18:00 Medical Branch COMP. METABOLIC PANEL 2022-12-16 Jackelyn Sorensen [facility] ([id number]) 19:18:00 Medical Branch CBC WITH DIFF 2022-12-16 Jackelyn Sorensen [facility] xa 19:18:00 Medical Branch NOTICE OF PRIVACY PRACTICES 2022-12-16 Doctor Unassigned, [facility] 18:41:12 [facility] [facility] CONSENT/REFUSAL FOR 2022-12-16 Doctor Unassigned, [facility] DIAGNOSIS AND TREATMENT 18:40:45 [facility] [facility] HOSPITAL ADMISSION 2022-12-16 Doctor Unassigned, [facility] 05:01:[address] [place] [facility] [address] [facility] CONSENT FOR 2022-10-23 Doctor Unassigned, [facility] FREE TREATMENT FORM 14:31:18 [place] [facility] VANCOMYCIN RANDOM LEVEL 2022-08-15 Venkat Del Valle [facility] 10:23:00 Medical Branch VANCOMYCIN RANDOM LEVEL 2022-08-14 Venkat Del Valle [facility] 14:26:00 Medical Branch MAGNESIUM 2022-08-14 [facility] 09:[facility] Branch BASIC METABOLIC PANEL (NA, 2022-08-14 Abraham [facility] K, CL, CO2, GLUCOSE, BUN, 09:57:00 Medica l Branch CREATININE, CA) VANCOMYCIN TROUGH 2022-08-14 [facility] 09:57[facility]00 Agatha [facility] CBC WITH DIFF 2022-08-14 Abraham [facility] 09:57:00 Medical Branch US RETROPERITONEAL LIMITED 2022-08-13 Venkat Del Valle [facility] 21:14:00 Medical Branch LACTATE DEHYDROGENASE 2022-08-13 [facility] 15:56[facility] Medical Branch RETICULOCYTES AUTOMATED 2022-08-13 Venkat Del Valle [facility] 08:53:00 Medical Branch MAGNESIUM 2022-08-13 Rohan [facility] [place] 08:53:00 Medical Branch FERRITIN SERUM 2022-08-13 Ivon [facility] xa 08:53:00 [facility] HAPTOGLOBIN, SERUM 2022-08-13 [facility] 08:53:00 [facility] BASIC METABOLIC PANEL (NA, 2022-08-13 Rohan, [facility] K, CL, CO2, GLUCOSE, BUN, 08:53:00 Medica l Branch CREATININE, CA) IRON PANEL 2022-08-13 Ivon [facility] 08:53:00 [facility] CBC WITH DIFF 2022-08-13 Rohan [facility] xa 08:53:00 [facility] CREATININE, URINE RANDOM 2022-08-12 [facility] 21:18:00 [facility] UREA NITROGEN, URINE RANDOM 2022-08-12 [facility] 21:18:00 [facility] SODIUM, URINE RANDOM 2022-08-12 [facility]derrick [facility] 21:18:00 [facility] TEST, URINE 2022-08-12 [facility] 21:18[facility]00 [facility]YSIS 2022-08-12 [facility] 21:18:00 [facility] N-TERMINAL PRO-BNP 2022-08-12 [facility] 21:07:[address] [facility] [address] ABDOMEN PELVIS WO 2022-08-12 Rohan [facility] CONTRAST 20:14:10 [facility] MRSA / MSSA SCREEN BY PCR, 2022-08-12 [facility] 17:31:00 [facility] PHOSPHORUS 2022-08-12 Rohan, [facility] [place] 17:27:00 [facility] MAGNESIUM 2022-08-12 Rohan, [facility] [place] 17:27:00 [facility] THYROID STIMULATING HORMONE 2022-08-12 [facility] [place] [facility] 17:27:00 [facility] HEPATIC FUNCTION PANEL 2022-08-12 [facility] ([id number] (ALB,T.PRO,BILI 17:27:00 Medical Branch T,BU/BC,ALT,AST,ALK PHOS) BASIC METABOLIC PANEL (NA, 2022-08-12 [facility] K, CL, CO2, GLUCOSE, BUN, 17:27:00 Medica l Branch CREATININE, CA) CBC WITH DIFF 2022-08-12 [facility] 17:27[facility]00 [facility] GLYCOSYLATED HEMOGLOBIN 2022-08-12 [facility] 17:27:00 [facility] PROTHROMBIN TIME / INR 2022-08-12 [facility] 17:27:00 [facility] ACTIVATED PARTIAL THRMPLAS 2022-08-12 [facility] CHERIE 17:27:00 [facility] XR CHEST 1 VW 2022-08-12 [facility]00 [facility] BASIC METABOLIC PANEL 2022-06-[address] [facility] 03:21:00 [facility] CBC (HEMOGRAM ONLY) 2022-06-[address] 03:21:00 [facility] CBC (HEMOGRAM ONLY) 2022-06-[address] 17:15:00 [facility] CBC (HEMOGRAM ONLY) 2022-06-[address] [facility] 03:20:00 [facility] BASIC METABOLIC PANEL 2022-06-[address] [facility] 03:20:00 [facility] PROTHROMBIN TIME/INR 2022-06-[address] [facility] 09:42:00 [facility] CBC W/PLT COUNT & AUTO 2022-06-12 [facility] DI[facility] 09:42:00 [facility] CBC W/PLT COUNT & AUTO 2022-06-12 Kong [facility]onalnaida [facility] DIFFER[facility] 09:42:00 [facility] BASIC METABOLIC PANEL 2022-06-[address] [facility] [facility] 08:39:00 [facility] MAGNESIUM 2022-06-12 Zahorijackelyn, Jennifer [facility] 08:39:00 [facility] PHOSPHORUS 2022-06-12 Zahorijackelyn, Jennifer [facility] 08:39:00 [facility] HEPATIC FUNCTION PANEL 2022-06-12 Naomyhorijackelyn, Jennifer [facility] 08:39:00 [facility] PREPARE LEUKO-REDUCED 2022-06-[address] [facility] 23:54:00 [facility] CALCIUM, IONIZED 2022-06-[address] [facility] [facility] 12:08:00 [facility] CBC (HEMOGRAM ONLY) 2022-06-[address] [facility] 12:08:00 [facility] PROTHROMBIN TIME/INR 2022-06-[address] [facility] 12:08:00 [facility] BASIC METABOLIC PANEL 2022-06-[address] [facility] 12:08:00 [facility] POCT-GLUCOSE METER 2022-06-[address] [facility] 11:51:00 [facility] POCT-GLUCOSE METER 2022-06-[address] [facility] 06:30:00 [facility] CBC (HEMOGRAM ONLY) 2022-06-[address] [facility] 05:01:00 [facility] PROTHROMBIN TIME/INR 2022-06-[address] [facility] 05:01:00 [facility] CALCIUM, IONIZED 2022-06-[address] [facility] [facility] 04:32:00 [facility] HEPATIC FUNCTION PANEL 2022-06-11 Manuel, Kouame [facility] 03:02:00 [facility] PHOSPHORUS 2022-06-11 Manuel, Kouame [facility] 03:02:00 [facility] MAGNESIUM 2022-06-[address] [facility] 03:02:00 [facility] POCT-GLUCOSE METER 2022-06-[address] [facility] 00:34:00 [facility] PREPARE LEUKO-REDUCED RBC 2022-06-[address] [facility] 23:54:00 [facility] PREPARE LEUKO-REDUCED 2022-06-[address] [facility] 23:54:00 [facility] CALCIUM, IONIZED 2022-06-10 Alore, Becki Murry [facility] 22:12:00 [facility] PROTHROMBIN TIME/INR 2022-06-10 Alore, Becki Murry [facility] 22:12:00 [facility] CBC W/PLT COUNT & AUTO 2022-06-10 Denilson, Emir Kane [facility] DIFFERENTIAL 22:12:00 [facility] Center CBC W/PLT COUNT & AUTO 2022-06-10 Denilson, Emir Kane [facility] DIFFERENTIAL 22:12:00 [facility] CALCIUM, IONIZED 2022-06-10 Alore, Becki Murry [facility] 17:19:00 [facility] CBC (HEMOGRAM ONLY) 2022-06-10 Alore, Becki Murry [facility] 17:19:00 Medical Center FIBRINOGEN 2022-06-10 Alore, [facility] Ann [facility] 17:19:00 [facility] PROTHROMBIN TIME/INR 2022-06-10 Alore, Becki Lovely [facility] 17:19:00 [facility] Center POCT-GLUCOSE METER 2022-06-[address] [facility] 17:18:00 [facility] TRANSFUSE LEUKO-REDUCED 2022-06-[address] [facility] 12:05:00 [facility] CALCIUM, IONIZED 2022-06-10 Alore, Becki Ann [facility] 12:03:00 [facility] CBC (HEMOGRAM ONLY) 2022-06-10 Alore, Becki Lovely [facility] 12:03:00 Medical Center FIBRINOGEN 2022-06-10 Alore, [facility]ely [facility] 12:03:00 [facility] Center PROTHROMBIN TIME/INR 2022-06-10 Alore, Becki Ann [facility] 12:03:00 [facility] POCT-GLUCOSE METER 2022-06-[address] [facility] 11:11:00 [facility] VANCOMYCIN LEVEL, TROUGH 2022-06-[address] [facility] 09:06:00 [facility] CALCIUM, IONIZED 2022-06-10 [place]tr[place], Becki Lovely [facility] 05:57:00 [facility] CBC (HEMOGRAM ONLY) 2022-06-10 Alore, Becki Murry [facility] 05:57:00 [facility] FIBRINOGEN 2022-06-10 Alore, Becki Ann [facility] 05:57:00 [facility] PROTHROMBIN TIME/INR 2022-06-10 Alore, Becki Murry [facility] 05:57:00 [facility] POCT-GLUCOSE METER 2022-06-[address] [facility] 05:30:00 [facility] CALCIUM, IONIZED 2022-06-10 Altrsiton, Becki Murry [facility] 01:00:00 [facility] CBC (HEMOGRAM ONLY) 2022-06-[address] [facility] 01:00:00 [facility] FIBRINOGEN 2022-06-10 [place]tr[place], Becki Murry [facility] 01:00:00 [facility] PROTHROMBIN TIME/INR 2022-06-10 [place], Becki Murry [facility] 01:00:00 [facility] HEPATIC FUNCTION PANEL 2022-06-10 Manuel, Kouame [facility] 01:[facility]00 [facility] PHOSPHORUS 2022-06-10 Manuel, Kouame [facility] 01:00:00 [facility] BASIC METABOLIC PANEL 2022-06-10 Beck[facility]za [facility] 01:[facility]:00 [facility] MAGNESIUM 2022-06-[address] [facility] 01:00:00 [facility] PREPARE LEUKO-REDUCED RBC 2022-06-09 Noa Loyola [facility] 23:54:00 [facility] PREPARE PLASMA 2022-06-[address] [facility] 23:54:00 [facility] PREPARE CRYOPRECIPITATE 2022-06-[address] [facility] 23:54:00 [facility] PREPARE LEUKO-REDUCED 2022-06-09 Manuel, Kouame [facility] 23:54:00 [facility] POCT-GLUCOSE METER 2022-06-09 Doris, Amalia [facility] 23:22:00 [facility] TRANSFUSE LEUKO-REDUCED 2022-06-[address] [facility] 22:55:00 [facility] POCT-GLUCOSE METER 2022-06-09 Doris, Amalia [facility] 17:17:00 [facility] CALCIUM, IONIZED 2022-06-09 Alore, Becki [facility]ely [facility] 17:[facility]:00 [facility] CBC (HEMOGRAM ONLY) 2022-06-09 Alore, Becki Lovely [facility] 17:14:00 [facility] FIBRINOGEN 2022-06-09 Alore, Becki [facility]ely [facility] 17:14:00 [facility] PROTHROMBIN TIME/INR 2022-06-09 Alore, Becki Lovely [facility] 17:14:00 [facility] BLOOD CULTURE 2022-06-09 West, Odilia [facility] 15:03:00 [facility] POCT-GLUCOSE METER 2022-06-09 Doris, Amalia [facility] 12:15:00 [facility] CALCIUM, IONIZED 2022-06-09 Alore, Becki Lovely [facility] 12:[facility]:00 [facility] CBC (HEMOGRAM ONLY) 2022-06-09 Alore, Becki Lovely [facility] 12:05:00 [facility] FIBRINOGEN 2022-06-09 Alore, Becki Lovely [facility] 12:05:00 [facility] PROTHROMBIN TIME/INR 2022-06-09 Alore, Becki Lovely [facility] 12:05:00 [facility] PROCALCITONIN 2022-06-09 Alore, Becki Lovely [facility] 12:05:00 [facility] BLOOD GAS, ARTERIAL 2022-06-09 Manuel, Kouame [facility] 08:18:00 [facility] PROTHROMBIN TIME/INR 2022-06-[address] [facility] 08:13:00 [facility] CBC (HEMOGRAM ONLY) 2022-06-09 Manuel, Kouame [facility] 08:13:00 [facility] BASIC METABOLIC PANEL 2022-06-09 Manuel, Kouame [facility] 08:13:00 [facility] FIBRINOGEN 2022-06-09 Manuel, Kouame [facility] 08:13:00 [facility] LACTIC ACID, ARTERIAL 2022-06-09 Manuel, Kouame [facility] 08:13:00 [facility] CALCIUM, IONIZED 2022-06-09 Manuel, Kouame [facility] 08:13:00 [facility] MAGNESIUM 2022-06-09 Manuel, Kouame [facility] 08:13:00 [facility] URINALYSIS W/ REFLEX URINE 2022-06-[address] [facility] CULTURE 04:49:00 [facility] RAPID DRUG SCREEN, URINE 2022-06-[address] [facility] 04:49:00 [facility] DRUG TEST, GENERAL 2022-06-[address] [facility] TOXICOLOGY, URINE 04:49:00 [facility] BLOOD GAS, ARTERIAL 2022-06-09 Manuel, Kouame [facility] 04:29:00 [facility] PROTHROMBIN TIME/INR 2022-06-[address] [facility] 04:28:00 [facility] CBC (HEMOGRAM ONLY) 2022-06-09 Manuel, Kouame [facility] 04:28:00 [facility] BASIC METABOLIC PANEL 2022-06-09 Manuel, Kouame [facility] 04:28:00 [facility] FIBRINOGEN 2022-06-09 Manuel, Kouame [facility] 04:28:00 [facility] LACTIC ACID, ARTERIAL 2022-06-09 Manuel, Kouame [facility] 04:28:00 [facility] HEPATIC FUNCTION PANEL 2022-06-09 Manuel, Kouame [facility] 04:28:00 [facility] CALCIUM, IONIZED 2022-06-09 Manuel, Kouame [facility] 04:28:00 [facility] PHOSPHORUS 2022-06-09 Manuel, Chikis [facility] 04:28:00 [facility] MAGNESIUM 2022-06-09 Manuel, Chikis [facility] 04:28:00 [facility] VWF ACTIVITY 2022-06-[address] [facility] 04:28:00 [facility] XR CHEST 1 VIEW PORTABLE / 2022-06-09 Manuel, Chikis [facility] 01:43:00 [facility] TRANSFUSE LEUKO-REDUCED 2022-06-09 Manuel, Chikis [facility] 01:38:00 [facility] THROMBOELASTOGRAPH (TEG) 2022-06-09 Manuel, Chikis [facility] 01:14:00 [facility] TRANSFUSE PLASMA 2022-06-09 Manuel, Chikis [facility] 00:46:00 [facility] TRANSFUSE LEUKO-REDUCED RED 2022-06-09 Manuel, Chikis [facility] BLOOD CELLS 00:34:00 [facility] CBC W/PLT COUNT & AUTO 2022-06-09 Manuel, Chikis [facility] DIFFERENTIAL 00:29:00 [facility] CBC W/PLT COUNT & AUTO 2022-06-09 Manuel, Chikis [facility] DIFFERENTIAL 00:29:00 [facility] (CELLAVISION MANUAL DIFF) 2022-06-09 Manuel, Chikis [facility] 00:29:00 [facility] BLOOD GAS, ARTERIAL 2022-06-09 Manuel, Chatouame [facility] 00:26:00 [facility] VITAMIN B12 2022-06-[address] [facility] 00:25:00 [facility] BASIC METABOLIC PANEL 2022-06-09 [facility] 00:25:00 [facility] FIBRINOGEN 2022-06-09 Manuel, Kouame [facility] 00:25:00 [facility] LACTIC ACID, ARTERIAL 2022-06-09 Manuel, Kouame [facility] 00:25:00 [facility] CALCIUM, IONIZED 2022-06-09 Manuel, Kouame [facility] 00:25:00 [facility] MAGNESIUM 2022-06-09 Manuel, Kouame [facility] 00:25:00 [facility] XR CHEST 1 VIEW PORTABLE / 2022-06-09 Manuel, Kouame [facility] 00:15:00 [facility] CBC (HEMOGRAM ONLY) 2022-06-08 Manuel, Kouame [facility] 22:09:00 [facility] BLOOD GAS, ARTERIAL 2022-06-08 Manuel, Kouame [facility] 22:06:00 [facility] TRANSFUSE PLASMA 2022-06-08 Mofor, Marimarinocenciae Tiomela [facility] 21:51:00 [facility] PREPARE PLASMA 2022-06-08 Manuel, Kouame [facility] 21:29:00 [facility] BLOOD GAS, ARTERIAL 2022-06-08 Mofor, Loyce Tiomela [facility] 20:53:00 [facility] FIBRINOGEN 2022-06-[address] [facility] 20:50:00 [facility] PROTHROMBIN TIME/INR 2022-06-[address] [facility] 20:50:00 [facility] MAGNESIUM 2022-06-08 Manuel, Kouame [facility] 20:50:00 [facility] PHOSPHORUS 2022-06-08 Manuel, Kouame [facility] 20:50:00 [facility] CALCIUM, IONIZED 2022-06-08 Manuel, Kouame [facility] 20:50:00 [facility] LACTIC ACID, ARTERIAL 2022-06-08 Manuel, Kouame [facility] 20:50:00 [facility] APTT 2022-06-08 Manuel, Kouame [facility] 20:50:00 [facility] THROMBOELASTOGRAPH (TEG) 2022-06-08 Manuel, Kouame [facility] 20:50:00 [facility] IR EMBOLIZATION ARTERIAL 2022-06-08 Analior, Loinocenciae Ti[facility]ela [facility] 20:[facility]00 [facility] TRANSFUSE LEUKO-REDUCED RED 2022-06-08 Analior, Landene Tiomela [facility] BLOOD CELLS 20:31:00 [facility] TRANSFUSE LEUKO-REDUCED RED 2022-06-08 Analior, Landene Tiomela [facility] BLOOD CELLS 18:18:00 [facility] SCREEN, URINE 2022-06-08 Mofhardy, Landene Tiomela [facility] 18:14:00 [facility] TRANSFUSE CRYOPRECIPITATE 2022-06-[address] [facility] 18:04:00 [facility] TRANSFUSE PLASMA 2022-06-08 Jack, Matthew Beela [facility] 17:57:00 [facility] TRANSFUSE LEUKO-REDUCED 2022-06-[address] [facility] 17:41:00 [facility] THROMBOELASTOGRAPH (TEG) 2022-06-08 Matthew Santiagoomela [facility] 17:36:00 [facility] LACTIC ACID, ARTERIAL 2022-06-08 [facility] Noa [facility] 17:35:00 [facility] PT/APTT 2022-06-08 Jack, Landene Tiomela [facility] 17:35:00 [facility] FIBRINOGEN 2022-06-08 Mofor, Loyce Tiomela [facility] 17:35:00 [facility] D-DIMER 2022-06-08 Mofor, Loyce Tiomela [facility] 17:35:00 [facility] CALCIUM, IONIZED 2022-06-08 Mofor, Loyce Tiomela [facility] 17:35:00 [facility] CBC W/PLT COUNT & AUTO 2022-06-08 Analior, Landene Tiomela [facility] DIFFERENTIAL 17:35:00 [facility] BASIC METABOLIC PANEL 2022-06-08 Analior, Landene [facility] 17:35:00 [facility] RETICULOCYTE COUNT 2022-06-08 Rosmery Ramon Carson [facility] 17:35:00 [facility] LACTATE DEHYDROGENASE (LDH) 2022-06-[address] [facility] 17:35:00 [facility] CBC W/PLT COUNT & AUTO 2022-06-08 Matthew Santiago [facility] DIFFERENTIAL 17:35:00 [facility] POCT-BLOOD GASES, ARTERIAL 2022-06-08 Doris, Amalia [facility] 17:22:00 [facility] POCT-SODIUM 2022-06-08 Doris, Amalia [facility] 17:22:00 [facility] POCT-POTASSIUM 2022-06-08 Doris, Amalia [facility] 17:22:00 [facility] POCT-HEMOGLOBIN 2022-06-08 Doris, Amalia [facility] 17:22:00 [facility] POCT-HEMATOCRIT 2022-06-08 Doris, Amalia [facility] 17:22:00 [facility] POCT-GLUCOSE 2022-06-08 Doris, Amalia [facility] 17:22:00 [facility] HEPATITIS C PCR, 2022-06-[address] [facility] QUANTITATIVE 16:26:00 [facility] HEPATITIS B PCR, 2022-06-[address] [facility] QUANTITATIVE 16:26:00 [facility] CMV PCR, QUANTITATIVE 2022-06-08 Laura Gimenez [facility] 16:26:00 [facility] EBV VIRAL LOAD 2022-06-[address] [facility] 16:26:00 [facility] TRANSFUSE LEUKO-REDUCED RED 2022-06-08 Chikis Jackson [facility] BLOOD CELLS 16:15:00 [facility] SALICYLATE LEVEL 2022-06-08 Joey Crandall [facility] 15:26:00 [facility] CORTISOL 2022-06-[address] [facility] 15:26:00 [facility] HEPATITIS B CORE ANTIBODY, 2022-06-08 Laura [facility]imenez [facility]OTAL 15:26:00 [facility] HEPATITIS A ANTIBODY, IGG [facility]-06-[facility] 15:26:00 [facility] HEPATITIS B SURFACE ANTIBODY 2022-06-[address] [facility] 15:26:00 [facility] CERULOPLASMIN 2022-06-[address] [facility] 15:26:00 [facility] GRLAH-2-SWNEFYBICIR\\, SERUM 2022-06-[address] [facility] 15:26:00 [facility] ANTI-NUCLEAR ANTIBODY (HAYDEN) 2022-06-[facility] 15:26:00 [facility] HEPATITIS A ANTIBODY, IGM 2022-06-[facility] 15:26:00 [facility] EBV ANTIBODY, IGM 2022-06-08 [facility] 15:26:00 [facility] FERRITIN 2022-06-[address] [facility] 15:26:00 [facility] IRON, TIBC, % SAT. (WITHOUT 2022-06-[address] [facility] FERRITIN) 15:26:00 [facility] ACTIN (SMOOTH MUSCLE) 2022-06-[address] [facility] [facility] ANTIBODY, IGG 15:26:00 [facility] HEPATITIS E ABS IGG/IGM EIA 2022-06-[address] [facility] 15:26:00 [facility] MITOCHONDRIAL AB SCREEN 2022-06-[address] [facility] 15:26:00 [facility] MITOCHONDRIAL AB TITER 2022-06-[address] [facility] 15:26:00 [facility] AMMONIA 2022-06-[address] [facility] 15:00:00 . [facility] CREATINE KINASE (CK) 2022-06-[address] [facility] 14:37:00 [facility] GLUCOSE 2022-06-08 Mofor, Loinocenciae Tiomela [facility] 14:37:00 [facility] SODIUM 2022-06-08 Mofor, Loyce Tiomela [facility] 14:37:00 [facility] POTASSIUM 2022-06-[address] [facility] 14:37:00 [facility] BASIC METABOLIC PANEL 2022-06-[address] [facility] [facility] 14:37:00 [facility] US ABDOMEN COMPLETE 2022-06-08 Mealnieladonna-Raya, Joey [facility] 13:36:00 D. [facility] US DOPPLER 2022-06-[address] [facility] 13:36:00 [facility] XR CHEST 1 VIEW PORTABLE / 2022-06-08 Nir, Noa [facility] BED[facility]IDE 12:26:00 [facility] CBC W/PLT COUNT & AUTO 2022-06-08 Melanielaodnna-Raya, Joey [facility] DIFFERENTIAL 12:23:00 D. [facility] COMPREHENSIVE METABOLIC 2022-06-08 Melanieladonna-Raya, Joey [facility] PANEL 12:23:00 D. [facility] APTT 2022-06-08 Melaniea-Raya, Joey [facility] 12:23:00 [facility] PROTHROMBIN TIME/INR 2022-06-08 Deleantolina-Raya, Joey [facility] 12:23:00 [facility] MAGNESIUM 2022-06-08 Deleija-Raya, Joey [facility] 12:23:00 [facility] PHOSPHORUS 2022-06-08 Deleija-Raya, Joey [facility] 12:23:00 [facility] IRON, TIBC, % SAT. (WITHOUT 2022-06-08 Deleija-Raya, Joey [facility] FERRITIN) 12:23:00 [facility] FERRITIN 2022-06-08 Deleija-Raya, Joey [facility] 12:23:00 [facility] VITAMIN B12 2022-06-08 Deleantolina-Raya, Joey [facility] 12:23:00 [facility] FIBRINOGEN 2022-06-08 [facility] 12:23:00 [facility] TSH/FREE T4 IF INDICATED 2022-06-08 Nir, Noa [facility] 12:23:00 [facility] HEPATITIS C ANTIBODY 2022-06-[address] [facility] 12:23:00 [facility] HEPATITIS B SURFACE ANTIGEN 2022-06-[address] [facility] 12:23:00 [facility] HC LAB HIV-1 AG W/HIV-1&2 AB 2022-06-[address] [facility] 12:23:00 [facility] T4, FREE 2022-06-08 [facility] Noa [facility] 12:23:00 [facility] TYPE AND SCREEN, AUTOMATED 2022-06-08 Melaniea-Raya, Joey [facility] 12:23:00 D. [facility] CBC W/PLT COUNT & AUTO 2022-06-08 Melaniea-Raya, Joey [facility] DIFFERENTIAL 12:23:00 [facility] POCT-BLOOD GASES, ARTERIAL 2022-06-08 Doris Amalia [facility] 12:18:00 [facility] POCT-SODIUM 2022-06-[address] [facility] 12:18:00 [facility] POCT-POTASSIUM 2022-06-08 DorisAmalia olivares [facility] 12:18:00 [facility] POCT-HEMOGLOBIN 2022-06-08 DorisAmalia aj [facility] 12:18:00 [facility] POCT-HEMATOCRIT 2022-06-08 Amalia George [facility] 12:18:00 [facility] POCT-GLUCOSE 2022-06-[address] [facility] 12:18:00 [facility] EKG-SCANNED 2022-06-08 Provider, Codi [facility] 00:00:00 [facility] US Pelvic Transvag W Doppler 2022-03-09 [facility] 03:52:[address] Abdomen Pelvis W Con 2022-03-09 [facility] 00:15:00 Health EKG 12 Lead in Emergency 2022-03-08 [facility] Room 23:09:00 Health XR Chest 1 View Portable 2022-03-08 [facility] 23:08:00 Health PREPARE RBC 2022-02-27 Catherine Mooney [facility] 23:54:00 [facility] MAGNESIUM 2022-02-27 Catherine Mooney [facility] 03:49:00 [facility] PHOSPHORUS 2022-02-[address] [facility] 03:49:00 [facility] IRON, TIBC, % SAT. (WITHOUT 2022-02-27 Soheila-Rach Sung In [facility] FERRITIN) 03:49:[address] [facility] FERRITIN 2022-02-27 Soheila-Rach Sung In [facility] 03:49:[address] [facility] INCUBATED 1:1 MIXING STUDY 2022-02-27 So[facility]ila[facility] Sung In [facility] 03:49:00 [facility] BASIC METABOLIC PANEL 2022-02-27 Miah Sung In [facility] 03:49:00 H [facility] CBC (HEMOGRAM ONLY) 2022-02-27 Henrietta Dooleyg In [facility] 03:49:00 H [facility] TISSUE EXAM 2022-02-26 Chirumbole, Yamile [facility] 16:38:00 [facility] CBC (HEMOGRAM ONLY) 2022-02-26 Henrietta Dooleyg In [facility] 08:34:00 [facility] PT/APTT 2022-02-26 Miah Sung [facility] 08:33:[address] [facility] FACTOR 9 ACTIVITY 2022-02-26 Miah Sung In [facility] 08:33:00 H [facility] FACTOR 8 ACTIVITY 2022-02-26 Soheila-Rach Sung In [facility] 08:33:00 [facility] HEMOGLOBIN AND HEMATOCRIT 2022-02-[address] [facility] 05:29:00 [facility] RETICULOCYTE COUNT 2022-02-26 Henrietta Dooleyg In [facility] 05:29:00 H [facility] CALCIUM, IONIZED 2022-02-[address] [facility] 03:56:00 [facility] TRANSFUSE LEUKO-REDUCED RED 2022-02-[address] [facility] BLOOD CELLS 01:35:00 [facility] SARS-COV2/RT-PCR (SLHS & REF 2022-02-[address] [facility] 23:23:00 [facility] ABORH, MANUAL 2022-02-[address] [facility] 23:22:00 [facility] CBC W/PLT COUNT & AUTO 2022-02-[address] [facility] DIFFERENTIAL 22:03:00 [facility] COMPREHENSIVE METABOLIC 2022-02-[address] [facility] PANEL 22:03:00 [facility] PROTHROMBIN TIME/INR 2022-02-[address] [facility] 22:03:00 [facility] MAGNESIUM 2022-02-[address] [facility] 22:03:00 [facility] TYPE AND SCREEN, AUTOMATED 2022-02-[address] [facility] 22:03:00 [facility] CBC W/PLT COUNT & AUTO 2022-02-[address] [facility] DIFFERENTIAL 22:03:00 [facility] [id number] 2020-01-24 [facility] [place] 00:00:00 [facility] [id number] 2020-01-24 [facility] [place] 00:00:00 [facility] [id number] 2020-01-24 [facility] [place] 00:00:00 [facility] Plan of Care Planned Activity Planned [...] Medica l Center cervix (procedure) [code = [id number]] Future Scheduled 2002-09-07 DTAP/TDAP/TD VACCINES CH I [...] Department ID 2022-11-14 Inpatient ER FRANNIE SLEAltaf SLE [id number] [facility] 17:59:02 [facility] 2022-11-14 Inpatient ER FRANNIE SLEAltaf SLEH [id number] [facility] 16:00:26 [facility] 2022-11-12 Inpatient ER RACHEL SLE [facility] [id number] [facility] 14:33:07 [place] 2022-11-11 Inpatient ER RACHEL SLE [facility] [id number] [facility] 05:35:31 [place] 2022-11-10 Inpatient ER EDWIGE STEPHENS SLE [facility] [id number] [facility] 16:12:26 2022-08-12 Inpatient ER [facility] Obstetrics [id number] 06:20:02 a [facility] 2022-03-09 Hospital ER [facility] Gynecology [id number] 00:00:00 Encounter [facility] 2020-01-24 Inpatient Coremma, HCACC SHANA [id number] [facility] 04:01:00 Armond [id number] [facility] 2022-12-20 2022-12-20 Outpatient Sadi [facility]ALS [facility] [id number] Univers 07:00:00 23:59:00 [facility]-20 2022-12-20 Hospital Inez Seals [id number] .[id number] Univers 07:00:00 23:59:00 Encounter PhysicsZafar 350.1.1 3.10 ity of BUILDING [id number] Larry as [id number] [facility] [address] 2022-12-19 2022-12-19 Patient JEFF Saba [id number] Univers 00:00:00 00:00:00 Outreach Fiona GARCIA [id number] i ty of WELLNESS [id number] Larry as CENTER [id number] [facility] [address] 2022-12-19 2022-12-19 Transition MELANY Ngo [id number] Univers 00:00:00 00:00:00 of Care Angelica TAN [id number] [place] [id number] [facility] [address] 2022-12-16 2022-12-18 Inpatient U MANDIE TRENT [facility] OBO [id number] Univers 13:40:00 18:00:00 TRENT, GWYN ity [facility]ly [facility] 2022-12-16 2022-12-18 [facility] Jackelyn Sorensen 1.2.840.1 [id number] Univers 13:40:00 18:00:00 Encounter Mandie Trent LINDA [id number] ity of [facility] [id number] Lrary as [id number] [facility] [address] 2022-12-18 2022-12-18 Patient Louisa Bryant [id number] Univers 00:00:00 00:00:00 Outreach Lizett SANCHEZY [id number] i [place] [id number] [facility] [address] 2022-12-17 2022-12-17 Patient JEFF Saba [id number] Univers 00:00:00 00:00:00 Outreach Fiona GARCIA [id number] i ty of WELLNESS [id number] Larry as CENTER [id number] [facility] [address] 2022-12-16 2022-12-16 Patient JEFF Saba [id number] Univers 00:00:00 00:00:00 Outreach Fiona GARCIA [id number] i ty of WELLNESS [id number] Larry as CENTER [id number] [address] 2022-12-13 2022-12-13 Patient JEFF Saba [id number] Univers 00:00:00 00:00:00 Outreach Fiona GARCIA [id number] i ty of WELLNESS [id number] Larry as CENTER [id number] [address] 2022-12-12 2022-12-12 Patient JEFF Saba [id number] Univers 00:00:00 00:00:00 Outreach Fiona GARCIA [id number] i ty of WELLNESS [id number] Larry as CENTER [id number] [address] 2022-12-07 2022-12-09 [id number] SLE 08:55:00 13:05:00 [facility] Med 2022-11-26 2022-11-30 Inpatient ER [facility] Urology [id number] SLE 09:52:00 15:03:00 SARAH 2022-11-28 2022-11-28 Patient MELANY Escobar 1.2.840.114 [id number] Univers 00:00:00 00:00:00 Outreach Jojo TAN 350.1.13.10 i [id number] [address] 2022-11-26 2022-11-26 Outpatient ER KUMARLadonna [facility] [id number] SLE 16:32:18 16:32:18 KEVIN 2022-11-25 2022-11-25 Patient JEFF Saba 1.2.840.114 [id number] Univers 00:00:00 00:00:00 Outreach Fiona GARCIA 350.1.13.10 i ty of WELLNESS 4.2.7.2.686 [place] as CENTER [id number] [address] 2022-11-21 2022-11-21 Patient JEFF Saba 1.2.840.114 [id number] Univers 00:00:00 00:00:00 Outreach Fiona GARCIA 350.1.13.10 i ty of WELLNESS 4.2.7.2.686 [place] as CENTER [id number] [place] [address] [address] 2022-11-20 2022-11-20 Patient JEFF Saba 1.2.840.114 [id number] Univers 00:00:00 00:00:00 Outreach Fiona GARCIA 350.1.13.10 i ty of WELLNESS 4.2.7.2.686 Larry as CENTER [id number] [facility] [address] 2022-11-10 2022-11-18 Inpatient ER [facility] Emergency [id number] [facility] 12:59:00 14:03:00 OUMAR 2022-11-16 2022-11-16 Inpatient ER [facility] [id number] SLE 16:58:58 00:00:00 OUMAR 2022-11-15 2022-11-15 Outpatient [facility] [id number] SLE 00:00:00 00:00:00 OUMAR 2022-11-13 2022-11-13 Inpatient ER [facility] [id number] [facility] 11:40:51 00:00:00 OUMAR 2022-11-12 2022-11-12 Inpatient ER [facility] [id number] [facility] 07:45:06 00:00:00 [place] 2022-11-04 2022-11-04 Patient JEFF Saba 1.2.840.114 [id number] Univers 00:00:00 00:00:00 Outreach Fiona GARCIA 350.1.13.10 i ty of WELL[place] 4.2.7.2.686 [place] as CENTER [phone] [address] 2022-10-23 2022-10-23 Patient MELANY Escobar 1.2.840.114 [id number] Univers 00:00:00 00:00:00 Outreach Jojo TAN 350.1.13.10 [place] [phone] [facility] [address] Branch 2022-10-23 2022-10-23 Orders Doctor DALLIN 1.2.840.114 [id number] Univers 00:00:00 00:00:00 Only Unassigned, LINDA 350.1.13.10 ity of [facility] 4.2.7.2.686 Larry as [id number] [facility] 009 Branch 2022-10-23 2022-10-23 Patient JEFF Saba 1.2.840.114 [id number] Univers 00:00:00 00:00:00 Outreach Fiona GARCIA 350.1.13.10 i ty of [place] 4.2.7.2.686 [place] as CENTER [id number] [address] 2022-10-14 2022-10-14 Patient SabaJEFF 1.2.840.114 [id number] Univers 00:00:00 00:00:00 Outreach Fiona GARCIA 350.1.13.10 i ty of [place] 4.2.7.2.686 [place] CENTER [id number] [address] 2022-10-11 2022-10-11 Patient JEFF Saba 1.2.840.114 [id number] Univers 00:00:00 00:00:00 Outreach Fiona GARCIA 350.1.13.10 i ty of [place] 4.2.7.2.686 [place] CENTER [id number] [address] 2022-10-10 2022-10-10 Patient JEFF Saba 1.2.840.114 [id number] Univers 00:00:00 00:00:00 Outreach Fiona GARCIA 350.1.13.10 i ty of [place] 4.2.7.2.686 [place] CENTER [id number] [address] 2022-10-07 2022-10-07 Patient JEFF Saba 1.2.840.114 [id number] Univers 00:00:00 00:00:00 Outreach Fiona GARCIA 350.1.13.10 i ty of [place] 4.2.7.2.686 [place] CENTER [phone] [address] 2022-10-04 2022-10-04 Patient SabaJEFF 1.2.840.114 [id number] Univers 00:00:00 00:00:00 Outreach Fiona GARCIA 350.1.13.10 i ty of [place] 4.2.7.2.686 [place] CENTER [id number] [address] 2022-10-03 2022-10-03 Patient Louisa Bryant MELANY 1.2.840.114 10 [id number] Univers 00:00:00 00:00:00 Outreach E TAN 350.1.13.10 [place] [phone] [address] 2022-09-19 2022-09-19 Patient JEFF Saba 1.2.840.114 [id number] Univers 00:00:00 00:00:00 Outreach Fiona GARCIA 350.1.13.10 i ty of [place] 4.2.7.2.686 [place] CENTER [id number] [address] 2022-09-18 2022-09-18 Patient JEFF Saba 1.2.840.114 [id number] Univers 00:00:00 00:00:00 Outreach Fiona GARCIA 350.1.13.10 i ty of [place] 4.2.7.2.686 [place] as CENTER [id number] [address] 2022-09-12 2022-09-12 Patient Louisa Bryant 1.2.840.114 10 [id number] Univers 00:00:00 00:00:00 Outreach E TAN 350.1.13.10 [place] [id number] [address] 2022-09-05 2022-09-05 Patient Louisa BryantLul 1.2.840.114 10 [id number] Univers 13:00:00 14:00:00 Outreach E TAN 350.1.13.10 [id number] [address] 2022-09-03 2022-09-03 Patient Louisa BryantLul 1.2.840.114 10 [id number] Univers 00:00:00 00:00:00 Outreach E TAN 350.1.13.10 [place] [id number] [address] 2022-08-27 2022-08-27 Patient Louisa Bryant 1.2.840.114 10 [id number] Univers 00:00:00 00:00:00 Outreach E TAN 350.1.13.10 [place] [id number] [address] Branch 2022-08-23 2022-08-23 Patient Louisa rByant 1.2.840.114 10 [id number] Univers 00:00:00 00:00:00 Outreach E TAN 350.1.13.10 [place] [phone] [address] Branch 2022-08-16 2022-08-16 Transition MELANY Ngo 1.2.840.114 103 [id number] Univers 00:00:00 00:00:00 of Care Angelica TAN 350.1.13.10 [place] [id number] [place] [address] Branch 2022-08-16 2022-08-16 Transition NgoMELANY garcia 1.2.840.114 [id number] Univers 00:00:00 00:00:00 of Care Angelica TAN 350.1.13.10 [id number] [place] [address] Branch 2022-08-12 2022-08-15 [id number] Univers 11:27:00 18:44:00 ELLI itstewart of [facility] 2022-08-12 2022-08-15 [facility] Elli Encarnacion 1.2.8 40.114 [id number] Univers 11:27:00 18:44:00 Encounter Vern Bell 350.1.1 3.10 ity of [facility] 4.2.7.2.686 Larry as [id number] [place] [id number] Branch 2022-07-21 2022-07-27 Inpatient ER JILLIAN HUNG Neuro ICU [id number] SLE 10:45:00 13:59:00 BEN 2022-06-19 2022-06-19 Tumor Yuliet [facility] [id number] [facility] 00:00:00 00:00:00 Board [facility] 2022-06-08 2022-06-14 Hospital ER Amalia George [facility] [id number] 10:46:00 14:05:00 Encounter Hussein Winslowkarni, [facility] 2022-06-08 2022-06-14 Inpatient ER JILLIAN RGAMAJO Boiler Technician [id number] [facility] 10:46:00 14:05:00 MRINALINI Oncology 2022-06-14 2022-06-14 Outpatient EL [facility] [id number] [facility] 07:39:48 07:39:48 2022-06-13 2022-06-13 Outpatient EL SLEH [facility] [id number] [facility] 11:32:48 11:32:48 2022-06-12 2022-06-12 Outpatient EL SLEH SLE [id number] [facility] 08:50:39 08:50:39 2022-03-18 2022-03-18 Emergency ER Senthil, [facility] [id number] 18:23:00 22:48:00 Boy -[id number] Marjabhishek Chavez Iam 2022-03-13 2022-03-13 Outside [facility] [id number] 00:00:00 00:00:00 Orders [facility] 2022-03-09 2022-03-12 Inpatient U Yessenia, [facility] [id number] STLSJX 08:49:00 14:02:00 Gabe -[id number] 2022-03-12 2022-03-12 [facility] [id number] 00:00:00 00:00:00 Only [facility] 2022-03-08 2022-03-09 Emergency ER Wen, [facility] [id number] 22:41:00 09:05:00 Lindrith -[id number] Eron Aaron 2022-03-09 2022-03-09 Admitted [id number]- [facility] [id number] [id number] St[facility] 08:49:00 08:49:00 Inpatient [id number] [facility] 50 J oseph -32s4-4xo [facility] Re giona [id number] [facility] 2022-03-09 2022-03-09 Telephone Little, [facility] [id number] 00:00:00 00:00:00 [facility]22-[facility]-25 2022-02-27 Hospital ER Noris Cabrera [facility] [id number] 21:25:00 19:09:00 Encounter Catherine Mooney Sung In H Medical Carter, [facility] 2022-02-25 2022-02-27 Inpatient ER CARTER, DANA [facility] Boiler Technician [id number] SLE 21:25:00 19:09:00 Oncology 2022-02-25 2022-02-25 Emergency ER Sharer, [facility] [id number] 10:23:00 19:24:00 [id number] [facility] 2022-02-15 2022-02-15 Outpatient GC_BVWC_Sou PRIV PRIV 257 [id number] [facility] 00:00:00 00:00:00 _J [id number] Medica l 2021-10-11 2021-10-11 Emergency EM Laura [facility] ER [id number] [facility] 13:35:00 20:55:00 Dallin Sewell [facility] 2021-10-11 2021-10-11 Emergency EM Laura [facility] [id number] [facility] 13:35:00 20:55:00 Dallin [id number] [facility] 2017-09-15 2017-09-15 Outpatient R AUDRA, [facility] [id number] Univers 10:45:00 11:49:28 ABI hargroev [facility] 2015-08-02 2015-08-02 Outpatient R AUDRA, [facility] [id number] Univers 08:30:00 10:17:04 ABI hargrove [facility] Results Test Description Test Time Test Comments Results Result [facility] e Comments TOTAL BETA HCG 2022-12-18 BETA University of [facility] 01:20:21 HCG<2.39Non-preg [facility] dicct nan female and Branch male patients: <5 mIU/mL12/17/2022 8:20 PM [facility] Gestational Age ?Range (mIU/mL) 1-10 ?Weeks ?14-46090558-48 Weeks ?35259-89619741- 22 Weeks ?0535-47303458-1 0 Weeks ?5881-236302 Biotin has been reported to cause a negative bias, interpret results relative to patient's use of biotin. POCT TEST 2022-12-17 19:33:00 Test Item Value Reference Range Interpretation Comme nts POCT PREG (test code = 1605) Negative On board controls acceptable with C Line (test code = 3574) Yes POCT PREG LOT # (test code = 3575) [id number] POCT PREG TEST DATE (test code = 3576) [facility]672[facility]2022-12-17 15:44:27 Test Item Value Reference Range Interpretation Comments NA (test code = 136 mmol/L 135-145 7997730747) K (test code = 4.2 mmol/L 3.5-5.0 6722969036) CL (test code = 105 mmol/L 98-108 5279199005) CO2 TOTAL (test code = 23 mmol/L 23-31 8111986427) AGAP (test code = 8 2-16 5696248953) BUN (test code = 19 mg/dL 7-23 8275378726) GLUCOSE (test code = 106 mg/dL 70-110 8804055198) CREATININE (test code = 1.96 mg/dL 0.50-1.04 H 0414709125) TOTAL BILI (test code = 0.4 mg/dL 0.1-1.1 5013391525) CALCIUM (test code = 8.8 mg/dL 8.6-10.6 9468793738) T PROTEIN (test code = 6.8 g/dL 6.3-8.2 1513833338) ALBUMIN (test code = 3.3 g/dL 3.5-5.0 L 4371322984) ALK PHOS (test code = 65 U/L 34-122 6418783472) ALTv (test code = 12 U/L 5-35 1742-6) AST(SGOT) (test code = 15 U/L 13-40 3497556222) eGFR (test code = 28.4 mL/min/1.73m2 1810640976) NING (test code = NING) Association of [...] tests). Lab Interpretation Abnormal (test code = 21820-5) [facility] 15:44:27 Test Item Value Reference Range Interpretation Comments MAGNESIUM (test code = 7406769526) 2.2 mg/dL 1.7-2.4 Lab Interpretation (test code = Normal 41061-8) [facility] 15:44:27 Test Item Value Reference Range Interpretation Comments PHOSPHORUS (test code = 7927673716) 3.4 mg/dL 2.5-5.0 Lab Interpretation (test code = Normal 61037-2) [facility] WITH [id number] 15:31:05 Test Item Value Reference Range Interpretation Comments WBC (test code = 8.92 See_Comment [Automated 6690-2) message] The sy stem which generated this result transmitted reference range : 4.30 - 11.10 10*3/?L. The reference range was not used to interpret this result as normal/abnormal . RBC (test code = 2.42 See_Comment L [Automated 789-8) message] The sy stem which generated this result transmitted reference range : 3.93 - 5.25 10*6/?L. The reference range was not used to interpret this result as normal/abnormal . HGB (test code = 7.5 g/dL 11.6-15.0 L 718-7) HCT (test code = 23.0 % 35.7-45.2 L 4544-3) MCV (test code = 95.0 fL 80.6-95.5 787-2) MCH (test code = 31.0 pg 25.9-32.8 785-6) MCHC (test code = 32.6 g/dL 31.6-35.1 786-4) RDW-SD (test code = 46.5 fL 39.0-49.9 26489-3) RDW-CV (test code = 13.3 % 12.0-15.5 788-0) PLT (test code = 280 See_Comment [Automated 777-3) message] The sy stem which generated this result transmitted reference range : 166 - 358 10*3/ ?L. The reference r yolanda was not used to interpret this result as normal/abnormal . MPV (test code = 9.0 fL 9.5-12.9 L 58787-7) NRBC/100 WBC (test 0.0 See_Comment [Automat ed code = 4584942413) message] The system which generated this result transmitted reference range : 0.0 - 10.0 /100 WBCs. The refer ence range was not u sed to interpret th is result as normal/abnormal . NRBC x10^3 (test code See_Comment [Auto mated = 6064028260) message] The s ystem which generated this result transmitted reference range : 10*3/?L. The reference range was not used to interpret this result as normal/abnormal . GRAN MAT (NEUT) % 79.4 % (test code = 770-8) IMM GRAN % (test code 0.30 % = 6658235495) LYMPH % (test code = 13.1 % 736-9) MONO % (test code = 5.2 % 5905-5) EOS % (test code = 1.9 % 713-8) BASO % (test code = 0.1 % 706-2) GRAN MAT x10^3(ANC) 7.08 10*3/uL 1.88-7.09 (test code = 2902953837) IMM GRAN x10^3 (test 0.03 10*3/uL 0.00-0.06 code = 7085702494) LYMPH x10^3 (test code 1.17 10*3/uL 1.32-3.29 L = 731-0) MONO x10^3 (test code 0.46 10*3/uL 0.33-0.92 = 742-7) EOS x10^3 (test code = 0.17 10*3/uL 0.03-0.39 711-2) BASO x10^3 (test code 0.01-0.07 = 704-7) Lab Interpretation Abnormal (test code = 61244-4) [facility] METABOLIC [id number] 11:22:09 Test Item Value Reference Range Interpretation Comments SODIUM (BEAKER) 138 meq/L 136-145 (test code = 381) POTASSIUM 3.9 meq/L 3.5-5.1 (BEAKER) (test code = 379) CHLORIDE (BEAKER) 114 meq/L 98-107 H (test code = 382) CO2 (BEAKER) 16 meq/L 22-29 L (test code = 355) BLOOD UREA 17 mg/dL 7-21 NITROGEN (BEAKER) (test code = 354) CREATININE 1.42 mg/dL 0.57-1.25 H (BEAKER) (test code = 358) GLUCOSE RANDOM 85 mg/dL 70-105 (BEAKER) (test code = 652) CALCIUM (BEAKER) 7.6 mg/dL 8.4-10.2 L (test code = 697) EGFR (BEAKER) 48 Interpretatio n of eGFR (test code = [...] not appl icable for dialysis patien ts Milking Worker ID - emBLOOD [id number] 11:18:25 Test Item Value Reference Range Interpretation Comments CULTURE (BEAKER) (test code = See comment 1095) This patient has entered hospice care and at the request of the attending physician, Dr. Parks, no further work-up will be performed for this culture. BLOOD [id number] 11:17:29 Test Item Value Reference Range Interpretation Comments CULTURE (BEAKER) (test code = See comment 1095) This patient has entered hospice care and at the request of the attending physician, Dr. Parks, no further work-up will be performed for this culture. LACTIC ACID, [id number] 11:09:28 Test Item Value Reference Range Interpretation Comments LACTATE BLOOD VENOUS (2) (BEAKER) 0.36 mmol/L 0.50-2.00 L (test code = 2872) Milking Worker ID - emCBC W/PLT COUNT & AUTO [id number] 11:05:14 Test Item Value Reference Range Interpretation Comments WHITE BLOOD CELL COUNT (BEAKER) 10.1 K/ L 3.5-10.5 (test code = 775) RED BLOOD CELL COUNT (BEAKER) 2.11 M/ L 3.93-5.22 L (test code = 761) HEMOGLOBIN (BEAKER) (test code = 6.4 GM/DL 11.2-15.7 L 410) HEMATOCRIT (BEAKER) (test code = 20.4 % 34.1-44.9 L 411) MEAN CORPUSCULAR VOLUME (BEAKER) 97 fL 79-95 H (test code = 753) MEAN CORPUSCULAR HEMOGLOBIN 30.3 pg 25.6-32.2 (BEAKER) (test code = 751) MEAN CORPUSCULAR HEMOGLOBIN CONC 31.4 GM/DL 32.2-35.5 L (BEAKER) (test code = 752) RED CELL DISTRIBUTION WIDTH 14.1 % 11.7-14.4 (BEAKER) (test code = 412) PLATELET COUNT (BEAKER) (test 263 K/CU MM 150-450 code = 756) MEAN PLATELET VOLUME (BEAKER) 8.7 fL 9.4-12.3 L (test code = 754) NUCLEATED RED BLOOD CELLS 0 /100 WBC 0-0 (BEAKER) (test code = 413) NEUTROPHILS RELATIVE PERCENT 88 % (BEAKER) (test code = 429) LYMPHOCYTES RELATIVE PERCENT 7 % (BEAKER) (test code = 430) MONOCYTES RELATIVE PERCENT 5 % (BEAKER) (test code = 431) EOSINOPHILS RELATIVE PERCENT 0 % (BEAKER) (test code = 432) BASOPHILS RELATIVE PERCENT 0 % (BEAKER) (test code = 437) NEUTROPHILS ABSOLUTE COUNT 8.84 K/ L 1.56-6.13 H (BEAKER) (test code = 670) LYMPHOCYTES ABSOLUTE COUNT 0.65 K/ L 1.18-3.74 L (BEAKER) (test code = 414) MONOCYTES ABSOLUTE COUNT (BEAKER) 0.48 K/ L 0.24-0.36 H (test code = 415) EOSINOPHILS ABSOLUTE COUNT 0.04 K/ L 0.04-0.36 (BEAKER) (test code = 416) BASOPHILS ABSOLUTE COUNT (BEAKER) 0.01 K/ L 0.01-0.08 (test code = 417) IMMATURE GRANULOCYTES-RELATIVE 0.40 % 0.00-1.00 PERCENT (BEAKER) (test code = 2801) BLOOD [id number] 09:00:32 Test Item Value Reference Range Interpretation Comments CULTURE (BEAKER) (test No growth in 5 days code = 1095) BLOOD [id number] 15:01:30 Test Item Value Reference Range Interpretation Comments CULTURE (BEAKER) (test No growth in 5 days code = 1095) The specimen volume collected for this blood culture was below the optimum (10 mL per bottle or 20 mL total). Use of lower volumes may adversely affect recovery and/or detection times of some organisms.HEPATIC FUNCTION PANEL 2022-11-30 09:57:22 Test Item Value Reference Range Interpretation Comments TOTAL PROTEIN (BEAKER) (test code = 7.1 gm/dL 6.0-8.3 770) ALBUMIN (BEAKER) (test code = 1145) 3.1 g/dL 3.5-5.0 L BILIRUBIN TOTAL (BEAKER) (test code 0.2 mg/dL 0.2-1.2 = 377) BILIRUBIN DIRECT (BEAKER) (test 0.1 mg/dL 0.1-0.5 code = 706) ALKALINE PHOSPHATASE (BEAKER) (test 71 U/L 40-150 code = 346) AST (SGOT) (BEAKER) (test code = 16 U/L 5-34 353) ALT (SGPT) (BEAKER) (test code = 9 U/L 6-55 347) Milking Worker ID - BSBASIC METABOLIC [id number] 09:57:21 Test Item Value Reference Range Interpretation Comments SODIUM (BEAKER) 134 meq/L 136-145 L (test code = 381) POTASSIUM 4.4 meq/L 3.5-5.1 (BEAKER) (test code = 379) CHLORIDE (BEAKER) 99 meq/L 98-107 (test code = 382) CO2 (BEAKER) 27 meq/L 22-29 (test code = 355) BLOOD UREA 19 mg/dL 7-21 NITROGEN (BEAKER) (test code = 354) CREATININE 1.72 mg/dL 0.57-1.25 H (BEAKER) (test code = 358) GLUCOSE RANDOM 102 mg/dL 70-105 (BEAKER) (test code = 652) CALCIUM (BEAKER) 9.2 mg/dL 8.4-10.2 (test code = 697) EGFR (BEAKER) 38 Interpretatio n of eGFR (test code = [...] not appl icable for dialysis patien ts Milking Worker ID - BSCBC W/PLT COUNT & AUTO [id number] 06:53:19 Test Item Value Reference Range Interpretation Comments WHITE BLOOD CELL COUNT (BEAKER) 6.7 K/ L 3.5-10.5 (test code = 775) RED BLOOD CELL COUNT (BEAKER) 2.65 M/ L 3.93-5.22 L (test code = 761) HEMOGLOBIN (BEAKER) (test code = 8.1 GM/DL 11.2-15.7 L 410) HEMATOCRIT (BEAKER) (test code = 25.8 % 34.1-44.9 L 411) MEAN CORPUSCULAR VOLUME (BEAKER) 97 fL 79-95 H (test code = 753) MEAN CORPUSCULAR HEMOGLOBIN 30.6 pg 25.6-32.2 (BEAKER) (test code = 751) MEAN CORPUSCULAR HEMOGLOBIN CONC 31.4 GM/DL 32.2-35.5 L (BEAKER) (test code = 752) RED CELL DISTRIBUTION WIDTH 14.3 % 11.7-14.4 (BEAKER) (test code = 412) PLATELET COUNT (BEAKER) (test 304 K/CU MM 150-450 code = 756) MEAN PLATELET VOLUME (BEAKER) 9.0 fL 9.4-12.3 L (test code = 754) NUCLEATED RED BLOOD CELLS 0 /100 WBC 0-0 (BEAKER) (test code = 413) NEUTROPHILS RELATIVE PERCENT 68 % (BEAKER) (test code = 429) LYMPHOCYTES RELATIVE PERCENT 19 % (BEAKER) (test code = 430) MONOCYTES RELATIVE PERCENT 7 % (BEAKER) (test code = 431) EOSINOPHILS RELATIVE PERCENT 6 % (BEAKER) (test code = 432) BASOPHILS RELATIVE PERCENT 0 % (BEAKER) (test code = 437) NEUTROPHILS ABSOLUTE COUNT 4.50 K/ L 1.56-6.13 (BEAKER) (test code = 670) LYMPHOCYTES ABSOLUTE COUNT 1.29 K/ L 1.18-3.74 (BEAKER) (test code = 414) MONOCYTES ABSOLUTE COUNT (BEAKER) 0.46 K/ L 0.24-0.36 H (test code = 415) EOSINOPHILS ABSOLUTE COUNT 0.39 K/ L 0.04-0.36 H (BEAKER) (test code = 416) BASOPHILS ABSOLUTE COUNT (BEAKER) 0.01 K/ L 0.01-0.08 (test code = 417) IMMATURE GRANULOCYTES-RELATIVE 0.40 % 0.00-1.00 PERCENT (BEAKER) (test code = 2801) VANCOMYCIN LEVEL, [id number] 13:31:17 Test Item Value Reference Range Interpretation Comments VANCOMYCIN TROUGH (BEAKER) (test 13.1 ug/mL 10.0-20.0 code = 522) Milking Worker ID - BSCT ABDOMEN/PELVIS WITHOUT IV [id number] 12:50:15 [facility] : 1985 Sex: FEXAM: CT Abdomen and Pelvis WITHOUT intravenous contrast INDICATION: Urologic cancer, staging, evaluation for uterine mass andpossible fistula/ abscessCOMPARISON: CT abdomen and pelvis 11/16/2022TECHNIQUE: The abdomen and pelvis were scanned utilizing a multidetectorhelical scanner from the lung basethrough the pubic symphysis withoutadministration of IV contrast. Coronal and sagittal reformations w ereobtained. Dose modulation, iterative reconstruction, and/or weight basedadjustment of the mA/kV was utilized to reduce the radiation dose to aslow as reasonably achievable. IV CONTRAST: NoneORAL CONTRAST: Water FINDINGS:LOWER THORAX: No lung base consolidation.HEPATOBILIARY: No focal liver lesions. Unremarkable gallbladder. SPLEEN: Unremarkable.PANCREAS: No focal masses or ductal dilation.ADRENALS: No adrenal nodules.KIDNEYS/URETERS: Bilateral percutaneous nephrostomy catheters withoutevidence of hydronephrosis.PELVIC ORGANS/BLADDER: Interval increase in size of large fungating softtissue mass in the pelvis contiguous with the uterus, currentlymeasuring 9 x 6.6 cm, previously measuring 7.2 x 7.7 cm centralhypodensity consistent with necrosis. Free air within the masscorrelates with communication with the uterine and cervical canal. Themass is inseparable from the bladder.PERITONEUM / RETROPERITONEUM: No free air or fluid.LYMPH NODES: No lymphadenopathy.VESSELS: Scattered atherosclerotic calcifications of the non-aneurysmalabdominal aorta and major branches.GI TRACT: No bowel obstruction orfocal wall thickening. Normalappendix.BONES AND SOFT TISSUES: No acute osseous injury. No suspicious lytic orblastic lesions. Unremarkable soft tissues.IMPRESSION:1. No acute finding within the abdomenor pelvis.2. Enlarging cervical mass which is now inseparable from the bladder.There is posterior bulging of the mass abutting the rectum withoutobvious evidence of a fistula. Interval increase in freeair which mayarise from the cervical canal versus the bladder.3. Bilateral percutaneous nephrostomy catheters without evidence ofhydronephrosis.Electronically Signed By: Sabino Whitehead11/29/2022 12:52 CDTWorkstation Name: [id number] FUNCTION [id number] 06:43:29 Test Item Value Reference Range Interpretation Comments TOTAL PROTEIN (BEAKER) (test code = 7.0 gm/dL 6.0-8.3 770) ALBUMIN (BEAKER) (test code = 1145) 3.1 g/dL 3.5-5.0 L BILIRUBIN TOTAL (BEAKER) (test code 0.2 mg/dL 0.2-1.2 = 377) BILIRUBIN DIRECT (BEAKER) (test 0.1 mg/dL 0.1-0.5 code = 706) ALKALINE PHOSPHATASE (BEAKER) (test 66 U/L 40-150 code = 346) AST (SGOT) (BEAKER) (test code = 11 U/L 5-34 353) ALT (SGPT) (BEAKER) (test code = < U/L 6-55 L 347) Milking Worker ID - ADMINBASIC METABOLIC [id number] 05:53:09 Test Item Value Reference Range Interpretation Comments SODIUM (BEAKER) 133 meq/L 136-145 L (test code = 381) POTASSIUM 4.6 meq/L 3.5-5.1 (BEAKER) (test code = 379) CHLORIDE (BEAKER) 100 meq/L 98-107 (test code = 382) CO2 (BEAKER) 27 meq/L 22-29 (test code = 355) BLOOD UREA 18 mg/dL 7-21 NITROGEN (BEAKER) (test code = 354) CREATININE 1.58 mg/dL 0.57-1.25 H (BEAKER) (test code = 358) GLUCOSE RANDOM 87 mg/dL 70-105 (BEAKER) (test code = 652) CALCIUM (BEAKER) 9.0 mg/dL 8.4-10.2 (test code = 697) EGFR (BEAKER) 42 Interpretatio n of eGFR (test code = [...] not appl icable for dialysis patien ts Milking Worker ID - ADMINCBC W/PLT COUNT & AUTO [id number] 05:35:18 Test Item Value Reference Range Interpretation Comments WHITE BLOOD CELL COUNT (BEAKER) 6.2 K/ L 3.5-10.5 (test code = 775) RED BLOOD CELL COUNT (BEAKER) 2.66 M/ L 3.93-5.22 L (test code = 761) HEMOGLOBIN (BEAKER) (test code = 8.2 GM/DL 11.2-15.7 L 410) HEMATOCRIT (BEAKER) (test code = 25.8 % 34.1-44.9 L 411) MEAN CORPUSCULAR VOLUME (BEAKER) 97 fL 79-95 H (test code = 753) MEAN CORPUSCULAR HEMOGLOBIN 30.8 pg 25.6-32.2 (BEAKER) (test code = 751) MEAN CORPUSCULAR HEMOGLOBIN CONC 31.8 GM/DL 32.2-35.5 L (BEAKER) (test code = 752) RED CELL DISTRIBUTION WIDTH 14.4 % 11.7-14.4 (BEAKER) (test code = 412) PLATELET COUNT (BEAKER) (test 330 K/CU MM 150-450 code = 756) MEAN PLATELET VOLUME (BEAKER) 8.8 fL 9.4-12.3 L (test code = 754) NUCLEATED RED BLOOD CELLS 0 /100 WBC 0-0 (BEAKER) (test code = 413) NEUTROPHILS RELATIVE PERCENT 69 % (BEAKER) (test code = 429) LYMPHOCYTES RELATIVE PERCENT 20 % (BEAKER) (test code = 430) MONOCYTES RELATIVE PERCENT 7 % (BEAKER) (test code = 431) EOSINOPHILS RELATIVE PERCENT 4 % (BEAKER) (test code = 432) BASOPHILS RELATIVE PERCENT 0 % (BEAKER) (test code = 437) NEUTROPHILS ABSOLUTE COUNT 4.28 K/ L 1.56-6.13 (BEAKER) (test code = 670) LYMPHOCYTES ABSOLUTE COUNT 1.25 K/ L 1.18-3.74 (BEAKER) (test code = 414) MONOCYTES ABSOLUTE COUNT (BEAKER) 0.45 K/ L 0.24-0.36 H (test code = 415) EOSINOPHILS ABSOLUTE COUNT 0.22 K/ L 0.04-0.36 (BEAKER) (test code = 416) BASOPHILS ABSOLUTE COUNT (BEAKER) 0.01 K/ L 0.01-0.08 (test code = 417) IMMATURE GRANULOCYTES-RELATIVE 0.50 % 0.00-1.00 PERCENT (BEAKER) (test code = 2801) SARS-COV2/RT-PCR ([facility])2022-11-27 13:42:29 Test Item Value Reference Range Interpretation Comments SARS-COV2/RT-PCR Negative Negative The SARS-Co V-2 target (test code = nucleic acids a re not [id number]) detected in thi s specimen. Negative result [...] revoked sooner. Fact Sheet for Healthcare Providers: https://[email or web address]/Documents/Xpert%20Xpress%20SARS%20CoV-2/Fact%20Sheets/302-3802%17DKQC-[email or web address]-1%20 HEALTHCARE%20PROVIDERS%20FACT%20SHEET.pdf Fact Sheet for Healthcare Patients: [email or web address]/Xpert%20Xp ress%20SARS%20CoV-2/Fact%20Sheets/3023801%[email or web address]-6%20PATIENT%20FACT%20SHEET .pdfBASI METABOLIC [id number] 08:10:24 Test Item Value Reference Range Interpretation Comments SODIUM (BEAKER) 134 meq/L 136-145 L (test code = 381) POTASSIUM 4.2 meq/L 3.5-5.1 (BEAKER) (test code = 379) CHLORIDE (BEAKER) 106 meq/L 98-107 (test code = 382) CO2 (BEAKER) 21 meq/L 22-29 L (test code = 355) BLOOD UREA 18 mg/dL 7-21 NITROGEN (BEAKER) (test code = 354) CREATININE 1.99 mg/dL 0.57-1.25 H (BEAKER) (test code = 358) GLUCOSE RANDOM 86 mg/dL 70-105 (BEAKER) (test code = 652) CALCIUM (BEAKER) 8.8 mg/dL 8.4-10.2 (test code = 697) EGFR (BEAKER) 32 Interpretatio n of eGFR (test code = [...] not appl icable for dialysis patien ts Milking Worker ID - EMHEPATIC FUNCTION [id number] 08:10:24 Test Item Value Reference Range Interpretation Comments TOTAL PROTEIN (BEAKER) (test code = 6.7 gm/dL 6.0-8.3 770) ALBUMIN (BEAKER) (test code = 1145) 2.9 g/dL 3.5-5.0 L BILIRUBIN TOTAL (BEAKER) (test code 0.2 mg/dL 0.2-1.2 = 377) BILIRUBIN DIRECT (BEAKER) (test 0.1 mg/dL 0.1-0.5 code = 706) ALKALINE PHOSPHATASE (BEAKER) (test 70 U/L 40-150 code = 346) AST (SGOT) (BEAKER) (test code = 16 U/L 5-34 353) ALT (SGPT) (BEAKER) (test code = 9 U/L 6-55 347) Milking Worker ID - EMCBC W/PLT COUNT & AUTO [id number] 07:31:08 Test Item Value Reference Range Interpretation Comments WHITE BLOOD CELL COUNT (BEAKER) 7.0 K/ L 3.5-10.5 (test code = 775) RED BLOOD CELL COUNT (BEAKER) 2.81 M/ L 3.93-5.22 L (test code = 761) HEMOGLOBIN (BEAKER) (test code = 8.4 GM/DL 11.2-15.7 L 410) HEMATOCRIT (BEAKER) (test code = 27.4 % 34.1-44.9 L 411) MEAN CORPUSCULAR VOLUME (BEAKER) 98 fL 79-95 H (test code = 753) MEAN CORPUSCULAR HEMOGLOBIN 29.9 pg 25.6-32.2 (BEAKER) (test code = 751) MEAN CORPUSCULAR HEMOGLOBIN CONC 30.7 GM/DL 32.2-35.5 L (BEAKER) (test code = 752) RED CELL DISTRIBUTION WIDTH 14.6 % 11.7-14.4 H (BEAKER) (test code = 412) PLATELET COUNT (BEAKER) (test 351 K/CU MM 150-450 code = 756) MEAN PLATELET VOLUME (BEAKER) 8.7 fL 9.4-12.3 L (test code = 754) NUCLEATED RED BLOOD CELLS 0 /100 WBC 0-0 (BEAKER) (test code = 413) NEUTROPHILS RELATIVE PERCENT 71 % (BEAKER) (test code = 429) LYMPHOCYTES RELATIVE PERCENT 19 % (BEAKER) (test code = 430) MONOCYTES RELATIVE PERCENT 6 % (BEAKER) (test code = 431) EOSINOPHILS RELATIVE PERCENT 3 % (BEAKER) (test code = 432) BASOPHILS RELATIVE PERCENT 0 % (BEAKER) (test code = 437) NEUTROPHILS ABSOLUTE COUNT 4.98 K/ L 1.56-6.13 (BEAKER) (test code = 670) LYMPHOCYTES ABSOLUTE COUNT 1.32 K/ L 1.18-3.74 (BEAKER) (test code = 414) MONOCYTES ABSOLUTE COUNT (BEAKER) 0.43 K/ L 0.24-0.36 H (test code = 415) EOSINOPHILS ABSOLUTE COUNT 0.23 K/ L 0.04-0.36 (BEAKER) (test code = 416) BASOPHILS ABSOLUTE COUNT (BEAKER) 0.01 K/ L 0.01-0.08 (test code = 417) IMMATURE GRANULOCYTES-RELATIVE 0.40 % 0.00-1.00 PERCENT (BEAKER) (test code = 2801) BASIC METABOLIC [id number] 14:44:56 Test Item Value Reference Range Interpretation Comments SODIUM (BEAKER) 136 meq/L 136-145 (test code = 381) POTASSIUM 4.3 meq/L 3.5-5.1 (BEAKER) (test code = 379) CHLORIDE (BEAKER) 110 meq/L 98-107 H (test code = 382) CO2 (BEAKER) 19 meq/L 22-29 L (test code = 355) BLOOD UREA 18 mg/dL 7-21 NITROGEN (BEAKER) (test code = 354) CREATININE 1.77 mg/dL 0.57-1.25 H (BEAKER) (test code = 358) GLUCOSE RANDOM 90 mg/dL 70-105 (BEAKER) (test code = 652) CALCIUM (BEAKER) 8.8 mg/dL 8.4-10.2 (test code = 697) EGFR (BEAKER) 37 Interpretatio n of eGFR (test code = [...] not appl icable for dialysis patien ts Milking Worker ID - EMHEPATIC FUNCTION [id number] 14:44:56 Test Item Value Reference Range Interpretation Comments TOTAL PROTEIN (BEAKER) (test code = 6.8 gm/dL 6.0-8.3 770) ALBUMIN (BEAKER) (test code = 1145) 3.0 g/dL 3.5-5.0 L BILIRUBIN TOTAL (BEAKER) (test code 0.2 mg/dL 0.2-1.2 = 377) BILIRUBIN DIRECT (BEAKER) (test 0.1 mg/dL 0.1-0.5 code = 706) ALKALINE PHOSPHATASE (BEAKER) (test 72 U/L 40-150 code = 346) AST (SGOT) (BEAKER) (test code = 24 U/L 5-34 353) ALT (SGPT) (BEAKER) (test code = 11 U/L 6-55 347) Milking Worker ID - EMLACTIC ACID, [id number] 14:34:34 Test Item Value Reference Range Interpretation Comments LACTATE BLOOD VENOUS (2) (BEAKER) 0.42 mmol/L 0.50-2.00 L (test code = 2872) Milking Worker ID - EMCBC W/PLT COUNT & AUTO [id number] 14:30:40 Test Item Value Reference Range Interpretation Comments WHITE BLOOD CELL COUNT (BEAKER) 9.6 K/ L 3.5-10.5 (test code = 775) RED BLOOD CELL COUNT (BEAKER) 2.86 M/ L 3.93-5.22 L (test code = 761) HEMOGLOBIN (BEAKER) (test code = 8.8 GM/DL 11.2-15.7 L 410) HEMATOCRIT (BEAKER) (test code = 27.4 % 34.1-44.9 L 411) MEAN CORPUSCULAR VOLUME (BEAKER) 96 fL 79-95 H (test code = 753) MEAN CORPUSCULAR HEMOGLOBIN 30.8 pg 25.6-32.2 (BEAKER) (test code = 751) MEAN CORPUSCULAR HEMOGLOBIN CONC 32.1 GM/DL 32.2-35.5 L (BEAKER) (test code = 752) RED CELL DISTRIBUTION WIDTH 14.6 % 11.7-14.4 H (BEAKER) (test code = 412) PLATELET COUNT (BEAKER) (test 374 K/CU MM 150-450 code = 756) MEAN [...] (test code = 431) EOSINOPHILS RELATIVE PERCENT 2 % (BEAKER) (test code = 432) BASOPHILS RELATIVE PERCENT 0 % (BEAKER) (test code = 437) NEUTROPHILS ABSOLUTE COUNT 8.26 K/ L 1.56-6.13 H (BEAKER) (test code = 670) LYMPHOCYTES ABSOLUTE COUNT 0.81 K/ L 1.18-3.74 L (BEAKER) (test code = 414) MONOCYTES ABSOLUTE COUNT (BEAKER) 0.32 K/ L 0.24-0.36 (test code = 415) EOSINOPHILS ABSOLUTE COUNT 0.15 K/ L 0.04-0.36 (BEAKER) (test code = 416) BASOPHILS ABSOLUTE COUNT (BEAKER) 0.01 K/ L 0.01-0.08 (test code = 417) IMMATURE GRANULOCYTES-RELATIVE 0.20 % 0.00-1.00 PERCENT (BEAKER) (test code = 2801) CT ABDOMEN/PELVIS WITHOUT IV [id number] 07:10:31 [facility] : 1985 Sex: FTECHNIQUE: CT of the abdomen and pelvis WITHOUT intravenous contrast andWITHOUT oral contrast. Dose modulation, iterative reconstruction, and/orweight-based adjustment of the mA/kV was utilized to reduce theradiation dose to as low as reasonably achievable.INDICATION: Abdominal pain, fever.COMPARISON: CT 07/22/2022.FINDINGS:ABSENCE OF INTRAVENOUS CONTRAST DECREASES SENSITIVITY FOR DETECTION OFFOCALLESIONS AND VASCULAR PATHOLOGY.LOWER THORAX: Unremarkable.HEPATOBILIARY: No focal hepatic lesions. Gallbladder is unremarkable. Nobiliary ductal dilatation.SPLEEN: No splenomegaly.ADRENALS: No adrenal nodules.PANCREAS: No focal masses or ductal dilatation.LYMPH NODES: No lymphadenopathy.KIDNEYS/URETERS: There has been interval placement of bilateralnephrostomy [...] anterior wall of the rectum as well.VESSELS: Unremarkable.PERITONEUM/RETROPERITONEUM: No free air or fluid.GI TRACT: No [...] Signed By: Daron Casarez11/17/2022 07:12 CDTWorkstation Name: [id number] CULTURE 2022-11-16 18:00:31 Test Item Value Reference Range Interpretation Comments CULTURE (BEAKER) (test No growth in 5 days code = 1095) BLOOD [id number] 18:00:31 Test Item Value Reference Range Interpretation Comments CULTURE (BEAKER) (test No growth in 5 days code = 1095) IR PERCUTANEOUS NEPHROSTOMY - INT. DRAIN [id number] 12:00:26 [facility] : 1985 Sex: FPROCEDURE: Genitourinary catheter exchangeProcedural PersonnelAttending physician(s): Melyssa Frank physician(s): NoneResident physician(s): NoneAdvanced practice provider(s): NonePre-procedure diagnosis: Nephrostomy statusPost-procedure diagnosis: SameIndication: Routine scheduled exchangeAdditional clinical history: NoneComplications: No immediate complications.IMPRESSION:Successful exchange of bilateral 10 [place] nephrostomy catheters.Plan: Routine exchange in 2-3 months PROCEDURE SUMMARY- Target organ: Bilateral [place] kidneys- Antegrade nephrostogram(s) via the existing access- [...] was confirmed with contrastinjection.Pre-existing genitourinary catheter: 10 [place] nephrostomy catheterGenitourinary catheter(s) placed: 10 [place] nephrostomy catheter External catheter securement: Non-absorbable suture Left genitourinary catheter exchangeLocal anesthesia was administered. Initial nephrostogram was performed.A wire was placed through the existing tube and it was removed. The newtube was advanced over the wire and position was confirmed with contrastinjection.Pre-existing genitourinary catheter: 10 [place] nephrostomy catheterGenitourinary catheter(s) placed: 10 [place] nephrostomy catheter External catheter securement: Non-absorbable suture Additional genitourinary system interventionGenitourinary intervention: NoneLocation of intervention: Not applicableDevice used: Not applicableDescription of intervention: Not applicablePost-intervention findings: Not applicableAdditional DetailsAdditional description of procedure: NoneEquipment details: NoneSpecimens removed: NoneEstimated blood loss (mL): Lessthan 10Standardized report: [email or web address] name: Rome Taylor attest that I was present for the entire procedure. I reviewed thestored images and agree with the report as written.Electronically Signed By: Rome Castaneda11/14/2022 12:02 CDTWorkstation Name: [id number] METABOLIC PANEL 2022-11-13 05:03:07 Test Item Value [...] not appl icable for dialysis patien ts Milking Worker ID - [id number] 04:57:29 Test Item Value Reference Range Interpretation Comments MAGNESIUM (BEAKER) (test code = 1.8 mg/dL 1.6-2.6 627) Milking Worker ID - [id number] 04:57:29 Test Item Value Reference Range Interpretation Comments PHOSPHORUS (BEAKER) (test code = 4.2 mg/dL 2.3-4.7 604) Milking Worker ID - EMCALCIUM, [id number] 04:24:11 Test Item Value Reference Range Interpretation Comments CALCIUM IONIZED (BEAKER) (test 1.08 mmol/L 1.12-1.27 L code = 698) PH, BLOOD (BEAKER) (test code = 7.46 1810) CBC W/PLT COUNT & AUTO [id number] 04:13:15 Test Item Value Reference Range Interpretation [...] (BEAKER) (test code = 2801) CREATININE, RANDOM [id number] 23:35:18 Test Item Value Reference Range Interpretation Comments CREATININE URINE (BEAKER) (test 25.6 mg/dL code = 375) Reference Range: No NormalsOperator ID - ADMINSODIUM, RANDOM [id number] 23:35:18 Test Item Value Reference Range Interpretation Comments SODIUM URINE (BEAKER) (test code = 122 meq/L 243) Reference Range: No NormalsOperator ID - ADMINPROTEIN, RANDOM [id number] 23:09:40 Test Item Value Reference Range Interpretation Comments PROTEIN, URINE (BEAKER) (test code = 32 mg/dL 0-14 H 1569) Milking Worker ID - ADMINURINALYSIS [id number] 23:02:10 Test Item Value Reference Range Interpretation Comments RBC UA (BEAKER) (test code = 519) 5 /HPF WBC UA (BEAKER) (test code = 520) 6 /HPF Milking Worker ID - techOSMOLALITY, [id number] 23:02:05 Test Item Value Reference Range Interpretation Comments OSMOLALITY URINE 322 mOsm/kg See_Comment [Automated message] (BEAKER) (test code = The sy stem which 614) generated this result transmitted ref erence range: 50-1,200 mOsm/kg. The reference range was not used to int erpret this result as normal/abnormal . URINALYSIS WITH MICROSCOPIC IF [id number] 23:01:49 Test Item Value Reference Range Interpretation [...] = 463) SOURCE(BEAKER) (test code = 2795) Milking Worker ID - [auto]Milking Worker ID - techVANCOMYCIN LEVEL, [id number] 13:58:24 Test Item Value Reference Range Interpretation Comments VANCOMYCIN TROUGH (BEAKER) (test 13.6 ug/mL 10.0-20.0 code = 522) Milking Worker ID - adminBASIC METABOLIC [id number] 13:39:11 Test Item Value Reference Range Interpretation [...] not appl icable for dialysis patien ts Milking Worker ID - adminCBC W/PLT COUNT & AUTO [id number] 11:37:54 Test Item Value Reference Range Interpretation [...] = 2801) CT LUMBAR SPINE WITHOUT IV [id number] 08:21:24 [facility] : 1985 Sex: FCT LUMBAR [...] without acute fracture ormalalignment. Electronically Signed By: [place] Ckqzqf0211/12/2022 08:23 CDTWorkstation Name: [id number] METABOLIC [id number] 10:28:53 Test Item Value Reference Range Interpretation [...] not appl icable for dialysis patien ts Milking Worker ID - [id number] 10:25:49 Test Item Value Reference Range Interpretation Comments MAGNESIUM (BEAKER) (test code = 1.7 mg/dL 1.6-2.6 627) Milking Worker ID - [id number] 10:25:49 Test Item Value Reference Range Interpretation Comments PHOSPHORUS (BEAKER) (test code = 3.0 mg/dL 2.3-4.7 604) Milking Worker ID - SUOVANCOMYCIN LEVEL, [id number] 10:22:46 Test Item Value Reference Range Interpretation Comments VANCOMYCIN RANDOM (BEAKER) (test 10.5 ug/mL code = 523) Reference Range: No NormalsOperator ID - SUOPROTHROMBIN TIME/[id number] 10:10:44 Test Item Value Reference Range Interpretation Comments PROTIME (BEAKER) 15.5 seconds 11.9-14.2 H (test code = 759) INR (BEAKER) (test 1.31 See_Comment [Automat ed message] code = 370) The system [employer] generated this result transmitted ref erence range: <=5.90. The reference range was not used to int erpret this result as normal/abnormal . RECOMMENDED COUMADIN/WARFARIN INR THERAPY RANGESSTANDARD DOSE: 2.0 - 3.0 Includes: PROPHYLAXIS for venous thrombosis, systemic embolization; TREATMENT for venous thrombosis and/or pulmonary embolus.HIGH RISK: Target INR is 2.5-3.5 for patients with mechanical heart valves.CBC W/PLT COUNT & AUTO [id number] 10:05:04 Test Item Value Reference Range Interpretation [...] PERCENT (BEAKER) (test code = 2801) CALCIUM, [id number] 10:04:52 Test Item Value Reference Range Interpretation Comments CALCIUM IONIZED (BEAKER) (test 1.08 mmol/L 1.12-1.27 L code = 698) PH, BLOOD (BEAKER) (test code = 7.54 1810) US ABDOMEN [id number] 17:18:12 [facility] : 1985 Sex: FEXAM: [...] Signed By: Balta Jeronimo11/10/2022 17:20 CDTWorkstation Name: [id number] METABOLIC [id number] 14:35:07 Test Item Value Reference Range Interpretation [...] not appl icable for dialysis patien ts Milking Worker ID - ADMINHCG, QUANTITATIVE, [id number] 14:19:36 Test Item Value Reference Range Interpretation Comments GONADOTROPIN, CHORIONIC (HCG) QUANT 1 mIU/mL 0-10 (BEAKER) (test code = 649) Non- Females: <10 mIU/mL Females: Gestation Age Reference Range(mIU/mL) 0.2-1 Week 5-50 1-2 Weeks 50-500 2-3 Weeks 100-5,000 3-4 Weeks 500-10,000 4-5 Weeks 1,000-50,000 5-6 Weeks 10,000-100,000 6-8 Weeks 15,000- 200,000 2-3 Months 10,000-100,000 Milking Worker ID - ADMINPROTHROMBIN TIME/INR 2022-11-10 13:54:39 Test Item Value Reference Range Interpretation Comments PROTIME (BEAKER) 15.2 seconds 11.9-14.2 H (test code = 759) INR (BEAKER) (test 1.28 See_Comment [Automat ed message] code = 370) The system [employer] generated this result transmitted ref erence range: <=5.90. The reference range was not used to int erpret this result as normal/abnormal . RECOMMENDED COUMADIN/WARFARIN INR THERAPY RANGESSTANDARD DOSE: 2.0 - 3.0 Includes: PROPHYLAXIS for venous thrombosis, systemic embolization; TREATMENT for venous thrombosis and/or pulmonary embolus.HIGH RISK: Target INR is 2.5-3.5 for patients with mechanical heart valves.CBC W/PLT COUNT & AUTO [id number] 13:49:30 Test Item Value Reference Range Interpretation [...] (BEAKER) (test code = 2801) Vancomycin Random [id number] 16:12:20 Test Item Value Reference Range Interpretation Comments VANCO RANDOM (test code = 25.5 ug/mL 6199295336) [facility]andLACTATE [id number] 17:06:44 Test Item Value Reference Range Interpretation Comments LDH (test code = 5443197339) 120 U/L 120-246 Lab Interpretation (test code = Normal 60253-8) [facility]ellandN-Terminal [id number] 21:40:51 Test Item Value Reference Range Interpretation Comments NT-proBNP (test code = 5010 pg/mL <=125 H 9755578118) NING (test code = NING) Biotin has been reported to cause a negative bias, interpret results relative to patient's use of biotin. Lab Interpretation (test Abnormal code = 32279-9) [facility]ellandGlycosylated Hemoglobin (A1C)2022-08-12 20:20:43 Test Item Value Reference Range Interpretation Comments HGB A1C (test code = 5.1 % 4.0-5.7 4548-4) NING (test code = NING) Reference RangesNormal: <5.7%Prediabetes: 5.7 - 6.4%Diabetes: > 6.5% Lab Interpretation (test Normal code = 47418-1) [facility]ellandThyroid Stimulating [id number] 20:03:36 Test Item Value Reference Range Interpretation Comments TSH (test code = 4.29 See_Comment [Automated message] 4779761327) The system [employer] generated this result transmitted ref erence range: 0.45 - 4 .70 mIU/L. The refe rence range was not u sed to interpret this result as normal/abnor mal. Lab Interpretation (test Normal code = 95143-6) [facility]and[facility] (NA, K, CL, CO2, Glucose, BUN, Creatinine, CA)2022-08-12 18:34:11 Test Item Value Reference Range Interpretation Comments NA (test code = 141 mmol/L 135-145 6581163073) K (test code = 3.9 mmol/L 3.5-5.0 0020398880) CL (test code = 114 mmol/L 98-108 H 8759691607) CO2 TOTAL (test code = 17 mmol/L 23-31 L 0209950592) AGAP (test code = 10 2-16 9052596726) BUN (test code = 16 mg/dL 7-23 9212373446) GLUCOSE (test code = 81 mg/dL 70-110 6400217976) CREATININE (test code = 1.61 mg/dL 0.50-1.04 H 0292592909) CALCIUM (test code = 7.6 mg/dL 8.6-10.6 L 9049946211) eGFR (test code = 35.8 mL/min/1.73m2 2109833323) NING (test code = NING) Association of [...] tests). Lab Interpretation Abnormal (test code = 25675-4) [facility]ellandMagnesium [id number] 18:34:11 Test Item Value Reference Range Interpretation Comments MAGNESIUM (test code = 9946398644) 1.4 mg/dL 1.7-2.4 L Lab Interpretation (test code = Abnormal 81840-6) [facility]ellandPhosphorus [id number] 18:34:11 Test Item Value Reference Range Interpretation Comments PHOSPHORUS (test code = 4165856860) 3.3 mg/dL 2.5-5.0 Lab Interpretation (test code = Normal 91313-9) [facility]ellandHepatic Function Panel (ALB, T.PRO, BILI T, BU/BC, ALT, AST, ALK, PHOS)2022-08-12 18:34:11 Test Item Value Reference Range Interpretation Comments TOTAL BILI (test code = 8537920201) 0.6 mg/dL 0.1-1.1 BILI UNCON (test code = 7541685232) 0.4 mg/dL 0.1-1.1 BILI CONJ (test code = 0275867042) 0.0 mg/dL 0.0-0.3 T PROTEIN (test code = 7516423969) 6.2 g/dL 6.3-8.2 L ALBUMIN (test code = 6647667377) 2.8 g/dL 3.5-5.0 L ALK PHOS (test code = 2915642868) 92 U/L 34-122 ALTv (test code = 1742-6) 19 U/L 5-35 AST(SGOT) (test code = 2678910283) 23 U/L 13-40 Lab Interpretation (test code = Abnormal 78419-4) [facility] LevellandaPTT2023-06-05 17:53:33 Test Item Value Reference Range Interpretation Comments APTT Patient (test code = 26 See_Comment [ Automated message] 3173-2) The system [employer] generated this result transmitted ref erence range: 26 - 36 Seconds. The re ference range was not u sed to interpret this result as normal/abnor mal. Lab Interpretation (test Normal code = 74328-2) [facility] LevellandProthrombin Time / [id number] 17:53:33 Test Item Value Reference Range Interpretation Comments PROTIME PATIENT (test 12.8 See_Comment H [Auto mated message] code = 5964-2) The system [employer] generated this result transmitted ref erence range: 10.1 - 1 2.6 Seconds. The reference range was not used to int erpret this result as normal/abnormal . INR (test code = 6301-6) 1.1 Nor mal INR <1.1; Warfarin Therap eutic range 2.0 to 3. 0 or 2.5 to 3.5, dep ending upon the indica tions. Lab Interpretation (test Abnormal code = 06267-1) [facility] LevellandCBC with [id number] 17:47:13 Test Item Value Reference Range Interpretation Comments WBC (test code = 14.03 See_Comment H [Automated 4490-2) message] The system which generated this result [...] (test code = 53.2 fL 39.0-49.9 H 52385-6) RDW-CV (test code = 16.3 % 12.0-15.5 H 788-0) PLT (test code = 214 See_Comment [Automated 777-3) message] The system which generated this result transmit erna reference range : 166 - 358 10*3/ ?L. The reference range was not u sed to interpret th is result as normal/abnormal . MPV (test code = 9.7 fL 9.5-12.9 98394-7) NRBC/100 WBC (test 0.0 See_Comment [Automat ed code = 1959037787) message] The system which generated this result transmit erna reference range : 0.0 - 10.0 /100 WBCs. The reference range was not used to interpret this result as normal/abnormal . NRBC x10^3 (test code See_Comment [Auto mated = 1870968399) message] The system which generated this result transmit erna reference range : 10*3/?L. The reference range was not used to interpret this result as normal/abnormal . GRAN MAT (NEUT) % 92.1 % (test code = 770-8) IMM GRAN % (test code 0.90 % = 9280534708) LYMPH % (test code = 3.9 % 736-9) MONO % (test code = 2.8 % 5905-5) EOS % (test code = 0.2 % 713-8) BASO % (test code = 0.1 % 706-2) GRAN MAT x10^3(ANC) 12.92 10*3/uL 1.88-7.09 H (test code = 3496909748) IMM GRAN x10^3 (test 0.12 10*3/uL 0.00-0.06 H code = 5155487404) LYMPH x10^3 (test code 0.55 10*3/uL 1.32-3.29 L = 731-0) MONO x10^3 (test code 0.39 10*3/uL 0.33-0.92 = 742-7) EOS x10^3 (test code = 0.03 10*3/uL 0.03-0.39 711-2) BASO x10^3 (test code 0.01-0.07 = 704-7) Lab Interpretation Abnormal (test code = 76874-8) [facility]ellandPOCT-GLUCOSE [id number] 07:57:35 Test Item Value Reference Range Interpretation Comments POC-GLUCOSE METER 96 mg/dL 70-110 : TESTED A T [facility] 6720 (BEAKER) (test code [facility], = 1538) [address]: Milking Worker/Techni skip ID = [id number] for Sidney (contract)Tito [id number] 07:34:33 Test Item Value Reference Range Interpretation Comments PHOSPHORUS (BEAKER) (test code = 3.7 mg/dL 2.3-4.7 604) Milking Worker ID - MARCOBASIC METABOLIC [id number] 07:34:32 Test Item Value Reference Range Interpretation [...] not appl icable for dialysis patien ts Milking Worker ID - [id number] 07:34:32 Test Item Value Reference Range Interpretation Comments MAGNESIUM (BEAKER) (test code = 1.8 mg/dL 1.6-2.6 627) Milking Worker ID - MARCOCBC W/PLT COUNT & AUTO [id number] 06:33:48 Test Item Value Reference Range Interpretation [...] (test code = 2801) MR, BRAIN, WITHOUT [id number] 20:08:00Epilepsy protocol Unlisted Reason for Exam - Click Yes and Enter Reason Below->No [facility] 1985 Sex: FFINAL REPORT MR, BRAIN, WITHOUT CONTRAST INDICATION: Seizure, new-onset, nohistory of trauma TECHNIQUE: Multiplanar, multisequence MR imaging of the brain was obtained. COMPARISON: None FINDINGS:Brain parenchyma is normal in morphology. Midline structures are normally developed. No restricted diffusion to suggest recent ischemic insult. No abnormal susceptibility. No hydrocephalus. Orbits are within normal limits. No obstructive paranasal sinus disease. IMPRESSION: No acuteinfarct, intracranial hemorrhage, or mass. No mesial temporal sclerosis identified. Signed: Dillan Miguel MDReport Verified Date/Time: 07/26/2022 20:08:29 POCT-GLUCOSE [id number] 16:21:21 Test Item Value Reference Range Interpretation Comments POC-GLUCOSE METER 90 mg/dL 70-110 : TESTED A T [facility] 6720 (BEAKER) (test code [facility], = 1538) [address]: Milking Worker/Techni skip ID = [id number] for Raiza (contract)Janet POCT-GLUCOSE [id number] 11:24:11 Test Item Value Reference Range Interpretation Comments POC-GLUCOSE METER 84 mg/dL 70-110 : TESTED A T [facility] 6720 (BEAKER) (test code = [facility], 1538) [address]: Milking Worker/Techni skip ID = [id number] for Alva Gonzalez [id number] 06:24:20 Test Item Value Reference Range Interpretation Comments PHOSPHORUS (BEAKER) (test code = 3.1 mg/dL 2.3-4.7 604) Milking Worker ID - ADMINBASIC METABOLIC [id number] 06:24:19 Test Item Value Reference Range Interpretation [...] not appl icable for dialysis patien ts Milking Worker ID - [id number] 06:24:19 Test Item Value Reference Range Interpretation Comments MAGNESIUM (BEAKER) (test code = 1.8 mg/dL 1.6-2.6 627) Milking Worker ID - ADMINCBC W/PLT COUNT & AUTO [id number] 05:27:14 Test Item Value Reference Range Interpretation [...] PERCENT (BEAKER) (test code = 2801) POCT-GLUCOSE [id number] 18:35:43 Test Item Value Reference Range Interpretation Comments POC-GLUCOSE METER 114 mg/dL 70-110 H : TESTED A T [facility] 6720 (BEAKER) (test code = [facility], [facility]) 89291: Milking Worker/Techni skip ID = [id number] for Joni Shook POCT-GLUCOSE [id number] 16:30:37 Test Item Value Reference Range Interpretation Comments POC-GLUCOSE METER 104 mg/dL 70-110 : TESTED A T [facility] 6720 (BEAKER) (test code = [facility], 153) 66822: Milking Worker/Techni skip ID = [id number] for Amanda De La O POCT-GLUCOSE [id number] 13:06:15 Test Item Value Reference Range Interpretation Comments POC-GLUCOSE METER 96 mg/dL 70-110 : TESTED A T [facility] 6720 (BEAKER) (test code = [facility], 153) 84311: Milking Worker/Techni skip ID = [id number] for Amanda Crowder POCT-GLUCOSE [id number] 07:46:57 Test Item Value Reference Range Interpretation Comments POC-GLUCOSE METER 84 mg/dL 70-110 : TESTED Ladonna Khoury [facility] 6720 (BEAKER) (test code = [place], 1538) 74057: Milking Worker/Techni skip ID = [id number] for Amanda Crowder [id number] 05:56:08 Test Item Value Reference Range Interpretation Comments MAGNESIUM (BEAKER) (test code = 2.4 mg/dL 1.6-2.6 627) Milking Worker ID - [id number] 05:56:08 Test Item Value Reference Range Interpretation Comments PHOSPHORUS (BEAKER) (test code = 3.2 mg/dL 2.3-4.7 604) Milking Worker ID - ADMINCOMPREHENSIVE METABOLIC [id number] 05:56:07 Test Item Value Reference Range Interpretation [...] not appl icable for dialysis patien ts Milking Worker ID - ADMINCBC W/PLT COUNT & AUTO [id number] 05:18:06 Test Item Value Reference Range Interpretation [...] PERCENT (BEAKER) (test code = 2801) POCT-GLUCOSE [id number] 21:30:58 Test Item Value Reference Range Interpretation Comments POC-GLUCOSE METER 86 mg/dL 70-110 : TESTED A T [facility] 6720 (BEAKER) (test code = [facility], 153) 63995: Milking Worker/Techni skip ID = [id number] for Ayan matson, Suad POCT-GLUCOSE [id number] 16:20:27 Test Item Value Reference Range Interpretation Comments POC-GLUCOSE METER 91 mg/dL 70-110 : TESTED A T [facility] 6720 (BEAKER) (test code = [facility], 1538) 93818: Milking Worker/Techni skip ID = [id number] for Megan llero, Amanda POCT-GLUCOSE [id number] 12:01:05 Test Item Value Reference Range Interpretation Comments POC-GLUCOSE METER 87 mg/dL 70-110 : TESTED A T [facility] 6720 (BEAKER) (test code = [facility], 153) 15788: Milking Worker/Techni skip ID = [id number] for Megan llero, Amanda POCT-GLUCOSE [id number] 08:41:45 Test Item Value Reference Range Interpretation Comments POC-GLUCOSE METER 90 mg/dL 70-110 : TESTED A T [facility] 6720 (BEAKER) (test code = [place], 1538) 09568: Milking Worker/Techni skip ID = [id number] for Amanda Crowder [id number] 07:22:20 Test Item Value Reference Range Interpretation Comments MAGNESIUM (BEAKER) (test code = 1.4 mg/dL 1.6-2.6 L 627) [id number] 07:22:20 Test Item Value Reference Range Interpretation Comments PHOSPHORUS (BEAKER) (test code = 3.5 mg/dL 2.3-4.7 604) BASIC METABOLIC [id number] 07:22:19 Test Item Value Reference Range Interpretation [...] patien ts CBC W/PLT COUNT & AUTO [id number] 06:58:59 Test Item Value Reference Range Interpretation [...] PERCENT (BEAKER) (test code = 2801) POCT-GLUCOSE [id number] 23:49:34 Test Item Value Reference Range Interpretation Comments POC-GLUCOSE METER 96 mg/dL 70-110 : TESTED A T [facility] 6720 (BEAKER) (test code = [facility], 1538) 97384: Milking Worker/Techni skip ID = [id number] for Tere Davis POCT-GLUCOSE [id number] 17:33:01 Test Item Value Reference Range Interpretation Comments POC-GLUCOSE METER 120 mg/dL 70-110 H : TESTED A T [facility] 6720 (BEAKER) (test code = [facility], 1538) 09958: Milking Worker/Techni ksip ID = [id number] for Nichole Hair POCT-GLUCOSE [id number] 11:09:16 Test Item Value Reference Range Interpretation Comments POC-GLUCOSE METER 107 mg/dL 70-110 : TESTED A T [facility] 6720 (BEAKER) (test code = [facility], 1538) 00757: Milking Worker/Techni skip ID = [id number] for Nichole Hair BASIC METABOLIC [id number] 07:14:49 Test Item Value Reference Range Interpretation [...] (test code = 697) EGFR (BEAKER) 11 Interpretati on of eGFR (test code = [...] not appl icable for dialysis patien ts Milking Worker ID - [id number] 07:11:55 Test Item Value Reference Range Interpretation Comments MAGNESIUM (BEAKER) (test code = 1.6 mg/dL 1.6-2.6 627) Milking Worker ID - [id number] 07:11:55 Test Item Value Reference Range Interpretation Comments PHOSPHORUS (BEAKER) (test code = 3.8 mg/dL 2.3-4.7 604) Milking Worker ID - BSCBC W/PLT COUNT & AUTO [id number] 06:07:30 Test Item Value Reference Range Interpretation [...] (BEAKER) (test code = 2801) BASIC METABOLIC [id number] 23:20:26 Test Item Value Reference Range Interpretation [...] not appl icable for dialysis patien ts Milking Worker ID - BSPOCT-GLUCOSE [id number] 19:11:02 Test Item Value Reference Range Interpretation Comments POC-GLUCOSE METER 87 mg/dL 70-110 : TESTED A T [facility] 6720 (ALEXANDER) (test code = [place], 1538) 69495: Milking Worker/Techni skip ID = [id number] for Monica quinterosNichole, NEPHROSTOMY, PERC, EXTERNAL [id number] 17:55:00Reason for exam:- >b/l [facility] placement [facility] 1985 Sex: FFINAL [...] three months. PROCEDURE SUMMARY- Target organ: Bilateral [place] kidneys- Image-guided placement of genitourinary catheter(s)- Additional [...] Contrast injection was performed.Genitourinary catheter placed: 10.2 Scottish multipurpose drainage catheter Findings: Pigtail positioned inthe renal pelvisExternal catheter securement: Non-absorbable suture Left genitourinary catheter placementLocal anesthesia was administered. A needle was advanced into the renal collecting system under ultrasound and fluoroscopy guidance. A wire was advanced, the tract was serially dilated and a nephrostomy tube was placed. Contrast injection was performed.Genitourinary catheter placed: 10.2 Scottish multipurpose drainage catheter Findings: Pigtail positioned in [...] blood loss (mL): Less than 10Standardized report: _KurtisheterPlacement_v3 AttestationSigner name: Balta Mejia attest that I was present for the entire procedure. I reviewed the stored images and agree with the report as written. Signed: Balta Jeronimo MDReport Verified Date/Time: 07/22/2022 17:55:16 Reading Location: [address] Neuro Reading Room HCG, QUANTITATIVE, [id number] 16:00:13 Test Item Value Reference Range Interpretation Comments GONADOTROPIN, CHORIONIC (HCG) QUANT < mIU/mL 0-10 (BEAKER) (test code = 649) Non- Females: <10 mIU/mL Females: Gestation Age Reference Range(mIU/mL) 0.2-1 Week 5-50 1-2 Weeks 50-500 2-3 Weeks 100-5,000 3-4 Weeks 500-10,000 4-5 Weeks 1,000-50,000 5-6 Weeks 10,000-100,000 6-8 Weeks 15,000- 200,000 2-3 Months 10,000-100,000 Milking Worker [facility] - [facility] 2022-07-22 12:58:04 Test Item [...] 8.4-10.2 L (test code = 697) EGFR ([facility]) 4 Interpretatio n of eGFR (test code [...] not appl icable for dialysis patien ts Milking Worker ID - ADMINPOCT-GLUCOSE [id number] 12:28:22 Test Item Value Reference Range Interpretation Comments POC-GLUCOSE METER 92 mg/dL 70-110 : TESTED A T [facility] 6720 (Tradesparq) (test code = [facility], 153) 08195: Milking Worker/Techni skip ID = [id number] for Nichole Moore POCT-GLUCOSE [id number] 07:55:05 Test Item Value Reference Range Interpretation Comments POC-GLUCOSE METER 97 mg/dL 70-110 : TESTED A T [facility] 6720 ([employer]) (test code = [facility], 153) 53887: Milking Worker/Techni skip ID = [id number] for Aquilino Moorelynn POCT-GLUCOSE [id number] 06:39:17 Test Item Value Reference Range Interpretation Comments POC-GLUCOSE METER 90 mg/dL 70-110 : TESTED A T [facility] 6720 ([employer]par[employer]) (test code = [facility], 153) 08006: Milking Worker/Techni skip ID = [id number] for KARON WATSON CT, [id number] 05:29:00Unlisted Reason for Exam - Click Yes and Enter Reason Below->YesUnlisted Reason for Exam->ESRD; Hx Cervical CarcinomaProtocol Please Specify:->Standard ProtocolWill this procedure require oralcontrast?->No [facility] 1985 Sex: [...] edema with trace ascites. Signed: Ean Jones [facility] Verified Date/Time: 07/22/2022 05:29:38 C METABOLIC [id number] 04:02:59 Test Item Value Reference Range Interpretation [...] not appl icable for dialysis patien ts Milking Worker ID Gonzalez TAYLOR [id number] 03:38:17 Test Item Value Reference Range Interpretation Comments PHOSPHORUS (BEAKER) (test code = 4.1 mg/dL 2.3-4.7 604) Milking Worker ID - CLAUDIA [id number] 03:38:16 Test Item Value Reference Range Interpretation Comments MAGNESIUM (BEAKER) (test code = 1.7 mg/dL 1.6-2.6 627) Milking Worker ID - CLAUDIA [id number] 03:33:49 Test Item Value Reference Range Interpretation Comments PARTIAL THROMBOPLASTIN TIME 33.4 seconds 22.5-36.0 (BEAKER) (test code = 760) PROTHROMBIN TIME/[id number] 03:33:07 Test Item Value Reference Range Interpretation [...] mechanical heart valves.CBC W/PLT COUNT & AUTO [id number] 03:23:16 Test Item Value Reference Range Interpretation [...] = 2801) RAD, CHEST, 1 VIEW, NON [id number] 23:55:00Reason for exam:->PULMONARY EDEMAShould this be performed at the bedside?->Yes [facility] : 1985 Sex: [...] Casarez MDReport Verified Date/Time: 07/21/2022 23:55:02 POCT-GLUCOSE [id number] 22:09:32 Test Item Value Reference Range Interpretation Comments POC-GLUCOSE METER 90 mg/dL 70-110 : TESTED A T [facility] 6720 (BEAKER) (test code = JANIE [facility] [place], 1538) 58127: Milking Worker/Techni skip ID = [id number] for KARON WATSON HEMOGLOBIN AND [id number] 22:02:53 Test Item Value Reference Range Interpretation Comments HEMOGLOBIN (BEAKER) (test code = 7.9 GM/DL 11.2-15.7 L 410) HEMATOCRIT (BEAKER) (test code = 22.4 % 34.1-44.9 L 411) Milking Worker ID - [id number] METABOLIC [id number] 20:36:21 Test Item Value Reference Range Interpretation [...] not appl icable for dialysis patien ts Milking Worker ID - ADMINHEPATITIS B SURFACE [id number] 19:47:38 Test Item Value Reference Range Interpretation Comments HEPATITIS B SURFACE ANTIGEN (2) Nonreactive Nonreactive (BEAKER) (test code = 2585) Specimen is considered negative for HBsAg.HIGH SENSITIVITY TROPONIN [id number] 18:50:26 Test Item Value Reference Range Interpretation Comments HIGH SENSITIVITY TROPONIN I (test 181 pg/ml <=17 H code = 4057744) Milking Worker ID - CHRISTIANO BThe HELPER MAINTENANCE CLEANING STAT High Sensitivity Troponin-I results should be used in conjunction with other diagnostic information such as ECG, clinical observations and information, and patient symptoms to aid in the diagnosis of [place].BASIC METABOLIC [id number] 18:47:16 Test Item Value Reference Range Interpretation [...] not appl icable for dialysis patien ts Milking Worker ID - CHRISTIANO BU/S, RENAL, [id number] 18:43:00Reason for exam:- >Bilateral Renal HydronephrosisShould this be performed at the bedside?->Yes[facility] : 1985 Sex: FFINAL REPORT Ultrasound of the Kidneys Clinical History: Bilateral Renal Hydronephrosis COMPARISON: CT 06/08/2022 at 6:34 PM from [facility] per [place] IV Discussion: Grayscale and color Doppler ultrasound examination of the kidneys and bladder was performed. Right kidney: 12.4 x 5.2 x 5.6 cm, with cortical thickness of 1.7 cm. Normal cortical echogenicity. No mass. No shad owing calculus. Moderate hydronephrosis. Left kidney: 11.2 x 5.6 x 4.6 cm, with cortical thickness of 2.1 cm. Normal cortical echogenicity. No mass. No shadowing calculus. Moderate hydronephrosis. Limited doppler evaluation of bilateral main renal arteries and veins demonstrate patency. Bladder: Bladder is decompressed. Fiberglass Luggage Molder reported a patient had a recent Bearden catheter removal. Few small echogenic foci with dirty shadowing within the anterior aspect of the bladder lumen suggestive of gas inthe bladder lumen possibly related to recent instrumentation. 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 It is difficult to discern the posterior wall of the bladder on this examination. Impression: 1. Moderate bilateral hydron ephrosis.2. Bladder is poorly distended secondary to recent Bearden discontinuation. 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 Posterior bladder wall between the bladder lumen in the vagina is not well seen on this examination. A CT of the abdomen and pelvis is pending at time of image interpretation. Signed: Draon Casarez Verified Date/Time: 07/21/2022 18:43:10 POCT-GLUCOSE [id number] 17:56:23 Test Item Value Reference Range Interpretation Comments POC-GLUCOSE METER 91 mg/dL 70-110 : TESTED A T [facility] 6720 (DEVIKAAKER) (test code = [place], 1538) 27336: Milking Worker/Techni skip ID = [id number] for Louisa Castellon [facility], CHEST, 1 VIEW, NON [id number] 15:01:00Reason for exam:->CVC \\T\\ HD catheterShould this be performed at the bedside?->Yes [facility] : 1985 Sex: FFINAL REPORT Chest, one view History: Insertion of central venous catheter Comparison: 06/09/2022 Findings:Interval development of mild central airspace disease, likely pulmonaryedema. Normal size heart. No pleural effusion or pneumothorax. Satisfactory positions of bilateral internal jugular central venous catheters. Signed: Eric, Arturo MDReport Verified Date/Time: 023 15:01:34 Reading Location: [facility] B1 C013X Ortho Consult Reading Room BASIC METABOLIC [id number] 12:30:54 Test Item Value Reference Range Interpretation [...] not appl icable for dialysis patien ts Milking Worker ID - CHRISTIANO BOperator ID - CHRISTIANO [id number] 12:22:57 Test Item Value Reference Range Interpretation Comments MAGNESIUM (BEAKER) (test code = 2.3 mg/dL 1.6-2.6 627) Milking Worker ID - CHRISTIANO [id number] 12:22:57 Test Item Value Reference Range Interpretation Comments PHOSPHORUS (BEAKER) (test code = 6.9 mg/dL 2.3-4.7 H 604) Milking Worker ID - CHRISTIANO BHEPATIC FUNCTION [id number] 12:22:57 Test Item Value Reference Range Interpretation [...] (test code = 8 U/L 6-55 347) Milking Worker ID - CHRISTIANO IGH SENSITIVITY TROPONIN [id number] 12:21:15 Test Item Value Reference Range Interpretation Comments HIGH SENSITIVITY TROPONIN I (test 58 pg/ml <=17 H code = 7781957) Milking Worker ID - CHRISTIANO BThe HELPER MAINTENANCE CLEANING STAT High Sensitivity Troponin-I results should be used in conjunction with other diagnostic information such as ECG, clinical observations and information, and patient symptoms to aid in the diagnosis of [place].CBC W/PLT COUNT & AUTO [id number] 12:14:08 Test Item Value Reference Range Interpretation [...] 0.00-1.00 PERCENT (BEAKER) (test code = 2801) [id number] 12:06:02 Test Item Value Reference Range Interpretation Comments FIBRINOGEN LEVEL (BEAKER) (test 459 mg/dl 225-434 H code = 658) PROTHROMBIN TIME/[id number] 12:05:45 Test Item Value Reference Range Interpretation Comments PROTIME (BEAKER) (test code = 16.0 seconds 11.9-14.2 H 759) INR (BEAKER) (test code = 370) 1.32 <=5.90 RECOMMENDED COUMADIN/WARFARIN INR THERAPY RANGESSTANDARD DOSE: 2.0 - 3.0 Includes: PROPHYLAXIS for venous thrombosis, systemic embolization; TREATMENT for venous thrombosis and/or pulmonary embolus.HIGH RISK: Target INR is 2.5-3.5 for patients with mechanical heart valves.LACTIC ACID, [id number] 12:04:00 Test Item Value Reference Range Interpretation Comments LACTATE BLOOD VENOUS (2) (DEVIKAAKER) 0.53 mmol/L 0.50-2.00 (test code = 2872) Milking Worker ID - ADMINPOCT-GLUCOSE [id number] 12:02:56 Test Item Value Reference Range Interpretation Comments POC-GLUCOSE METER 91 mg/dL 70-110 : TESTED A T [facility] 6720 (ALEXANDER) (test code = JANIE [facility], 1538) 56519: Milking Worker/Techni skip ID = [id number] for Louisa Castellon POCT-GLUCOSE [id number] 11:16:07 Test Item Value Reference Range Interpretation Comments POC-GLUCOSE METER 50 mg/dL 70-110 L : TESTED A T [facility] 6720 (ALEXANDER) (test code = JANIE [facility], 1538) 26132: Milking Worker/Techni skip ID = [id number] for Louisa Castellon Drug Test, General Toxicology, [id number] 20:51:37 Test Item Value Reference Interpretation Comments Range Acetone(Quest) None Detected (test code = 3053) Methanol(Quest) None Detected (test code = 3054) Drug Test,Genrl see note The followin g compounds were Tox,U (test detected: Cotin ine (Nicotine code = 7916620) Metabolite) Acetaminophen Gabapentin MEGx (Lidocaine Metabolite) Caf feine Methamphetamine Lidocaine Benzoylecgonine (Cocaine Metabolite) Mela kyleigh Diphenhydramine Midazolam Cyclobenzaprine For a list of compounds and l imits of detection go to:http://educa tion.Neuropure.My eShoe/faq /HWV180 ISOPROPANOL None Detected (test code = 0796180) ETHANOL (test None Detected Volatile Li samy of code = 0931874) Detection: 5 mg/dL This test was developed a nd its analytical performancechar acteristics have been deter mined by [employer] [place], [place]. It hasnot been dany ared or approved by the U.S. Food and DrugAdministrat ion. This assay has been validated pursuantto the CLIA regulations and is used for clinicalpurpose s. NING (test code Performing Lab = NING) [address] [place] [address] [place] [address] Shawn Drake MD, PhD [facility] CenterBLOOD [id number] 16:00:20 Test Item Value Reference Range Interpretation Comments CULTURE (BEAKER) (test No growth in 5 days code = 1095) The specimen volume collected for this blood culture was below the optimum (10 mL per bottle or 20 mL total). Use of lower volumes may adversely affect recovery and/or detection times of some organisms.BLOOD [id number] 16:00:20 Test Item Value Reference Range Interpretation Comments CULTURE (BEAKER) (test No growth in 5 days code = 1095) BASIC METABOLIC [id number] 03:45:36 Test Item Value Reference Range Interpretation [...] glom erular filtration rate . Estimated GFR i s not applicable for dialysis patients Milking Worker ID - BSCBC (HEMOGRAM ONLY)2022-06-14 03:30:35 Test [...] (BEAKER) (test code = 413) BASIC METABOLIC [id number] 04:27:45 Test Item Value Reference Range Interpretation [...] not appl icable for dialysis patien ts Milking Worker ID - MMCBC (HEMOGRAM ONLY)2022-06-13 04:07:18 Test [...] 0-0 (BEAKER) (test code = 413) PROTHROMBIN TIME/[id number] 10:03:21 Test Item Value Reference Range Interpretation Comments PROTIME (BEAKER) (test code = 15.4 seconds 11.9-14.2 H 759) INR (BEAKER) (test code = 370) 1.30 <=5.90 RECOMMENDED COUMADIN/WARFARIN INR THERAPY RANGESSTANDARD DOSE: 2.0 - 3.0 Includes: PROPHYLAXIS for venous thrombosis, systemic embolization; TREATMENT for venous thrombosis and/or pulmonary embolus.HIGH RISK: Target INR is 2.5-3.5 for patients with mechanical heart valves.ANG, EMBOLIZATION, EXTENSIVE - [id number] 09:57:00Reason for exam:->Embolization of bleeding cervical massWESTERN MED[facility]ENTER[facility]: [facility] : 1985 Sex: FFINAL REPORT Exam: Right internal iliac artery embolization Clinical History: Cervical mass with severe hemorrhage Consent: Benefits and risks were explained to the patient's mother who gave consent to the procedure. Fluoro Time: 13.3 Minutes Total Images: 66 Procedure: Sterile barrier technique was followed including cap, mask, sterile gown, sterile gloves, sterile sheet, hand hygiene and 2% chlorhexidine for cutaneous antisepsis. The right groin was prepped and draped in usual sterile fashion. 2% lidocaine was used as local anesthetic. Under ultrasound guidance, the rightcommon femoral artery, which was patent, was accessed. A hardcopy of the image was obtained. Under fluoroscopic guidance, a Omni flush catheter was advanced [...] the right internal iliac artery was selected. Embolizationwas performed using Gelfoam slurry. Post embolization pelvic [...] MDReport Verified Date/Time: 06/12/2022 09:57:59 Reading Location: [facility] Diagnostic Imaging Reading Room - [place] [address] CBC W/PLT COUNT & AUTO [id number] 09:56:52 Test Item Value Reference Range Interpretation [...] GRANULOCYTES-RELATIVE PERCENT (BEAKER) (test code = 2801) [id number] 09:25:56 Test Item Value Reference Range Interpretation Comments PHOSPHORUS (BEAKER) (test code = 3.4 mg/dL 2.3-4.7 604) Milking Worker ID Gonzalez TAYLOR WHEPATIC FUNCTION [id number] 09:25:56 Test Item Value Reference Range Interpretation [...] code = 117 U/L 6-55 H 347) Milking Worker KATIE TAYLOR WBASIC METABOLIC [id number] 09:25:55 Test Item Value Reference Range Interpretation [...] not appl icable for dialysis patien ts Milking Worker ID - CLAUDIA [id number] 09:25:55 Test Item Value Reference Range Interpretation Comments MAGNESIUM (BEAKER) (test code = 2.0 mg/dL 1.6-2.6 627) Milking Worker ID - CLAUDIA WPrepare Leuko-Red [id number] 23:54:00 Test Item Value Reference Range Interpretation Comments Unit ABO (test code = 3894020) A Neg UNIT NUMBER (test code = [id number] 934-0) Status (test code = 0964561) [place]_TIMEINCHART Blood Bank Product (test code PLATELETS = 2263) PRODUCT CODE (test code = U2458I90 933-2) [facility] CenterPrep[facility] Leuko-Red [id number] 23:54:00 Test Item Value Reference Range Interpretation Comments Unit ABO (test code = 2611183) A Neg UNIT NUMBER (test code = [id number] 934-0) Status (test code = 9858501) TX_TIMEINCHART Blood Bank Product (test code PLATELETS = 2263) PRODUCT CODE (test code = K7796P53 933-2) [facility] CenterBASIC METABOLIC [id number] 13:05:32 Test Item Value Reference Range Interpretation [...] not appl icable for dialysis patien ts Milking Worker ID - MARCOCBC (HEMOGRAM ONLY)2022-06-11 12:42:48 Test [...] WBC 0-0 (test code = 413) PROTHROMBIN TIME/[id number] 12:39:37 Test Item Value Reference Range Interpretation Comments PROTIME (BEAKER) (test code = 15.6 seconds 11.9-14.2 H 759) INR (BEAKER) (test code = 370) 1.32 <=5.90 RECOMMENDED COUMADIN/WARFARIN INR THERAPY RANGESSTANDARD DOSE: 2.0 - 3.0 Includes: PROPHYLAXIS for venous thrombosis, systemic embolization; TREATMENT for venous thrombosis and/or pulmonary embolus.HIGH RISK: Target INR is 2.5-3.5 for patients with mechanical heart valves.CALCIUM, [id number] 12:30:04 Test Item Value Reference Range Interpretation Comments CALCIUM IONIZED (BEAKER) (test 1.08 mmol/L 1.12-1.27 L code = 698) PH, BLOOD (BEAKER) (test code = 7.44 1810) POC-Glucose [id number] 12:05:07 Test Item Value Reference Range Interpretation Comments POC-Glucose Meter (test 85 mg/dL 70-110 : TE STED AT [facility] code = 1538) [address] [facility], [facility] 30: Milking Worker/Techni skip ID = [id number] for LLUVIA GROVES Lab Interpretation (test Normal code = 51759-1) [facility]-Glucose [id number] 12:05:07 Test Item Value Reference Range Interpretation Comments POC-Glucose Meter (test 85 mg/dL 70-110 : TE STED AT [facility] code = 1538) [address] [place] [address], 770 30: Milking Worker/Techni skip ID = [id number] for LLUVIA GROVES Lab Interpretation (test Normal code = 91694-1) [facility]-GLUCOSE [id number] 12:05:07 Test Item Value Reference Range Interpretation Comments POC-GLUCOSE METER 85 mg/dL 70-110 : TESTED A T [facility] 6720 (BEAKER) (test code = [facility] Sadi [facility], 1538) [address]: Milking Worker/Techni skip ID = [id number] for LLUVIA DANIEL EBV VIRAL [id number] 11:49:33 Test Item Value Reference Range Interpretation [...] th is result as normal/abnormal . POCT-GLUCOSE [id number] 06:43:06 Test Item Value Reference Range Interpretation Comments POC-GLUCOSE METER 82 mg/dL 70-110 : TESTED A T [facility] 6720 (BEAKER) (test code = JANIE Avitia [place], 1538) [address]: Milking Worker/Techni skip ID = [id number] for Griselda Mayorga CALCIUM, [id number] 05:38:13 Test Item Value Reference Range Interpretation [...] CELLS (BEAKER) (test code = 413) PROTHROMBIN TIME/[id number] 05:28:51 Test Item Value Reference Range Interpretation Comments PROTIME (BEAKER) (test code = 16.1 seconds 11.9-14.2 H 759) INR (BEAKER) (test code = 370) 1.38 <=5.90 RECOMMENDED COUMADIN/WARFARIN INR THERAPY RANGESSTANDARD DOSE: 2.0 - 3.0 Includes: PROPHYLAXIS for venous thrombosis, systemic embolization; TREATMENT for venous thrombosis and/or pulmonary embolus.HIGH RISK: Target INR is 2.5-3.5 for patients with mechanical heart valves.[id number] 03:39:10 Test Item Value Reference Range Interpretation Comments PHOSPHORUS (BEAKER) (test code = 2.8 mg/dL 2.3-4.7 604) Milking Worker ID - BSHEPATIC FUNCTION [id number] 03:39:09 Test Item Value Reference Range Interpretation [...] code = 116 U/L 6-55 H 347) Milking Worker ID - [id number] 03:39:09 Test Item Value Reference Range Interpretation Comments MAGNESIUM (BEAKER) (test code = 1.6 mg/dL 1.6-2.6 627) Milking Worker ID - BSPOCT-GLUCOSE MQMVK5486-43-05 00:47:31 Test Item Value Reference Range Interpretation Comments POC-GLUCOSE METER 94 mg/dL 70-110 : TESTED A T [facility] 6720 (BEAKER) (test code = JANIE [place], 1538) [address]: Milking Worker/Techni skip ID = [id number] for Pee Valladares Prepare Leuko-Red [id number] 23:54:00 Test Item Value Reference Range Interpretation Comments CROSSMATCH (test code = 2264) COMPATIBLE Unit ABO (test code = A Pos 5259151) UNIT NUMBER (test code = [id number] 934-0) Status (test code = 9819711) [facility] Product (test code RED BLOOD CELLS = 2263) PRODUCT CODE (test code = W2243P47 933-2) [facility] [id number] 23:54:00 Test Item Value Reference Range Interpretation Comments CROSSMATCH (test code = 2264) COMPATIBLE Unit ABO (test code = A Pos 7243968) UNIT NUMBER (test code = [id number] 934-0) Status (test code = 7646722) [facility] Blood Bank Product (test code RED BLOOD CELLS = 2263) PRODUCT CODE (test code = V4725F59 933-2) [facility] CenterPROTHROMBIN TIME/[id number] 22:37:14 Test Item Value Reference Range Interpretation [...] mechanical heart valves.CBC W/PLT COUNT & AUTO [id number] 22:25:34 Test Item Value Reference Range Interpretation [...] PERCENT (BEAKER) (test code = 2801) CALCIUM, [id number] 22:25:05 Test Item Value Reference Range Interpretation Comments CALCIUM IONIZED (BEAKER) (test 1.07 mmol/L 1.12-1.27 L code = 698) PH, BLOOD (BEAKER) (test code = 7.48 1810) [id number] 17:57:12 Test Item Value Reference Range Interpretation Comments FIBRINOGEN LEVEL (BEAKER) (test 313 mg/dl 225-434 code = 658) PROTHROMBIN TIME/[id number] 17:44:31 Test Item Value Reference Range Interpretation [...] WBC 0-0 (test code = 413) POCT-GLUCOSE [id number] 17:30:09 Test Item Value Reference Range Interpretation Comments POC-GLUCOSE METER 109 mg/dL 70-110 : TESTED A T [facility] 6720 (BEAKER) (test code = JANIE [place], 1538) [address]: Milking Worker/Techni skip ID = [id number] for Naina Austin CALCIUM, [id number] 17:28:59 Test Item Value Reference Range Interpretation Comments CALCIUM IONIZED (BEAKER) (test 1.07 mmol/L 1.12-1.27 L code = 698) PH, BLOOD (BEAKER) (test code = 7.48 1810) ANTI-NUCLEAR ANTIBODY (HAYDEN)2022-06-10 14:58:10 Test Item Value Reference Range Interpretation Comments ANTI-NUCLEAR ANTIBODY (HAYDEN) (BEAKER) Negative Negative (test code = 418) Test performed by IFA method.Test performed by IFA method.HEPATITIS C PCR, [id number] 14:01:32 Test Item Value Reference Range Interpretation Comments HCV RESULT COMPONENT HCV RNA not detected HCV RNA not detected (BEAKER) (test code = 2699) HEPATITIS B PCR, [id number] 13:33:52 Test Item Value Reference Range Interpretation Comments HBV RESULT COMPONENT HBV DNA not detected HBV DNA not detected (BEAKER) (test code = 2701) [id number] 12:37:58 Test Item Value Reference Range Interpretation Comments FIBRINOGEN LEVEL (BEAKER) (test 280 mg/dl 225-434 code = 658) PROTHROMBIN TIME/[id number] 12:37:40 Test Item Value Reference Range Interpretation Comments PROTIME (BEAKER) (test code = 17.8 seconds 11.9-14.2 H 759) INR (BEAKER) (test code = 370) 1.57 <=5.90 RECOMMENDED COUMADIN/WARFARIN INR THERAPY RANGESSTANDARD DOSE: 2.0 - 3.0 Includes: PROPHYLAXIS for venous thrombosis, systemic embolization; TREATMENT for venous thrombosis and/or pulmonary embolus.HIGH RISK: Target INR is 2.5-3.5 for patients with mechanical heart valves.CMV PCR, [id number] 12:25:04 Test Item Value Reference Range Interpretation [...] WBC 0-0 (test code = 413) CALCIUM, [id number] 12:09:13 Test Item Value Reference Range Interpretation Comments CALCIUM IONIZED (BEAKER) (test 1.05 mmol/L 1.12-1.27 L code = 698) PH, BLOOD (BEAKER) (test code = 7.46 1810) POCT-GLUCOSE [id number] 11:23:12 Test Item Value Reference Range Interpretation Comments POC-GLUCOSE METER 92 mg/dL 70-110 : TESTED A T [facility] 6720 (BEAKER) (test code = JANIE [place], 1538) [address]: Milking Worker/Techni skip ID = [id number] for ADRIEN C (V), ANNMARIE EBV ANTIBODY, [id number] 10:34:21 Test Item Value Reference Range Interpretation Comments ANDREW SUAREZ VIRAL CAPSID Negative Negative, Equivocal ANTIGEN IGM (BEAKER) (test code = 3418) Andrew Suarez Viral Capsid Antigen IgM Result Interpretation: </= 0.8 Al Negative 0.9-1.0 Al Equivocal >/= 1.1 Al PositiveVANCOMYCIN LEVEL, TROUGH 2022-06-10 09:41:44 Test Item Value Reference Range Interpretation Comments VANCOMYCIN TROUGH (BEAKER) (test 16.1 ug/mL 10.0-20.0 code = 522) Milking Worker ID - WZTSWQBWMTEGBIP0468-62-20 06:41:29 Test Item Value Reference Range Interpretation Comments FIBRINOGEN LEVEL (BEAKER) (test 260 mg/dl 225-434 code = 658) PROTHROMBIN TIME/[id number] 06:41:06 Test Item Value Reference Range Interpretation [...] WBC 0-0 (test code = 413) CALCIUM, [id number] 06:04:52 Test Item Value Reference Range Interpretation Comments CALCIUM IONIZED (BEAKER) (test 1.12 mmol/L 1.12-1.27 code = 698) PH, BLOOD (BEAKER) (test code = 7.48 1810) POCT-GLUCOSE [id number] 05:43:21 Test Item Value Reference Range Interpretation Comments POC-GLUCOSE METER 91 mg/dL 70-110 : TESTED A T [facility] 6720 (BEAKER) (test code = JANIE [place], 1538) [address]: Milking Worker/Techni skip ID = [id number] for MSIB I, MNCEDISI BASIC METABOLIC [id number] 03:27:46 Test Item Value Reference Range Interpretation [...] not appl icable for dialysis patien ts Milking Worker ID - Iam slightly ictericHEPATIC FUNCTION [id number] 03:26:54 Test Item Value Reference Range Interpretation [...] code = 153 U/L 6-55 H 347) Milking Worker ID - Iam slightly wsivqagTHLVYCRRH9661-03-91 03:26:53 Test Item Value Reference Range Interpretation Comments MAGNESIUM (BEAKER) (test code = 1.6 mg/dL 1.6-2.6 627) Milking Worker ID - TKYPSRWRUOJTRGN3343-62-13 03:26:53 Test Item Value Reference Range Interpretation Comments PHOSPHORUS (BEAKER) (test code = 2.0 mg/dL 2.3-4.7 L 604) Milking Worker ID - SUOCALCIUM, [id number] 01:25:13 Test Item Value Reference Range Interpretation Comments CALCIUM IONIZED (BEAKER) (test 1.04 mmol/L 1.12-1.27 L code = 698) PH, BLOOD (BEAKER) (test code = 7.48 1810) [id number] 01:24:42 Test Item Value Reference Range Interpretation Comments FIBRINOGEN LEVEL (BEAKER) (test 257 mg/dl 225-434 code = 658) PROTHROMBIN TIME/[id number] 01:23:57 Test Item Value Reference Range Interpretation [...] CELLS (BEAKER) (test code = 413) Prepare qavjmxtnepgrmot1427-57-42 23:54:00 Test Item Value Reference Range Interpretation Comments Unit ABO (test code = A Pos 7428025) UNIT NUMBER (test code = [id number] 934-0) Status (test code = 0928038) TX_TIMEINCHART Blood Bank Product (test code CRYOPRECIPITATE = 2263) PRODUCT CODE (test code = [id number] 933-2) [facility] Center[facility] [id number] 23:54:00 Test Item Value Reference Range Interpretation Comments Unit ABO (test code = 2187475) A Neg UNIT NUMBER (test code = [id number] 934-0) Status (test code = 2470125) TX_TIMEINCHART Blood Bank Product (test code FFP = 2263) PRODUCT CODE (test code = A1205A84 933-2) [facility] CenterPrepar [id number] 23:54:00 Test Item Value Reference Range Interpretation Comments Unit ABO (test code = A Pos 2839094) UNIT NUMBER (test code = [id number] 934-0) Status (test code = 0252360) TX_TIMEINCHART Blood Bank Product (test code CRYOPRECIPITATE = 2263) PRODUCT CODE (test code = S9797V42 933-2) [facility] CenterPre[facility] [id number] 23:54:00 Test Item Value Reference Range Interpretation Comments Unit ABO (test code = 0742063) A Neg UNIT NUMBER (test code = [id number] 934-0) Status (test code = 4813627) [place]_TIMEINCHART Blood Bank Product (test code FFP = 2263) PRODUCT CODE (test code = X8885O34 933-2) [facility] CenterPOCT-GLUCOSE [id number] 23:42:59 Test Item Value Reference Range Interpretation Comments POC-GLUCOSE METER 91 mg/dL 70-110 : TESTED A T [facility] 6720 (BEAKER) (test code = JANIE [place], 1538) [address]: Milking Worker/Techni skip ID = [id number] for MSIB I, MNCEDISI CALCIUM, [id number] 18:10:25 Test Item Value Reference Range Interpretation Comments CALCIUM IONIZED (BEAKER) (test 1.11 mmol/L 1.12-1.27 L code = 698) PH, BLOOD (BEAKER) (test code = 7.48 1810) [id number] 17:48:32 Test Item Value Reference Range Interpretation Comments FIBRINOGEN LEVEL (BEAKER) (test 179 mg/dl 225-434 L code = 658) PROTHROMBIN TIME/[id number] 17:48:12 Test Item Value Reference Range Interpretation [...] WBC 0-0 (test code = 413) POCT-GLUCOSE [id number] 17:29:37 Test Item Value Reference Range Interpretation Comments POC-GLUCOSE METER 95 mg/dL 70-110 : TESTED A T [facility] 6720 (BEAKER) (test code = JANIE [facility], 1538) [address]: Milking Worker/Techni skip ID = [id number] for Joyce Hilario [id number] 13:31:18 Test Item Value Reference Range Interpretation Comments PROCALCITONIN (BEAKER) (test code 18.38 ng/mL <0.05 HH = 3036) SEPSIS RISK (ng/mL)Low: 0.05-0.50Intermediate: 0.51-2.00High: >=2.01 [id number] 12:31:16 Test Item Value Reference Range Interpretation Comments FIBRINOGEN LEVEL (BEAKER) (test 178 mg/dl 225-434 L code = 658) POCT-GLUCOSE [id number] 12:29:44 Test Item Value Reference Range Interpretation Comments POC-GLUCOSE METER 116 mg/dL 70-110 H : TESTED A T [facility] 6720 (BEAKER) (test code [facility], = 1538) [address]: Milking Worker/Techni skip ID = [id number] for Amanda Giles CALCIUM, [id number] 12:27:55 Test Item Value Reference Range Interpretation Comments CALCIUM IONIZED (BEAKER) (test 1.10 mmol/L 1.12-1.27 L code = 698) PH, BLOOD (BEAKER) (test code = 7.48 1810) PROTHROMBIN TIME/[id number] 12:25:56 Test Item Value Reference Range Interpretation [...] 0-0 (test code = 413) BASIC METABOLIC [id number] 09:00:33 Test Item Value Reference Range Interpretation [...] not appl icable for dialysis patien ts Milking Worker ID - Iam slightly pkdrfohAWUFLFPWI3163-72-21 08:56:11 Test Item Value Reference Range Interpretation Comments MAGNESIUM (BEAKER) (test code = 2.0 mg/dL 1.6-2.6 627) Milking Worker ID - SUOLactic Acid, Qevmpsje7360-11-86 08:52:09 Test Item Value Reference Range Interpretation Comments Lactate, Art (test code 0.9 mmol/L 0.5-2.2 = 2874) NING (test code = NING) Milking Worker ID - Iam slightly icteric Lab Interpretation Normal (test code = 62220-7) [facility] CenterL[facility] Acid, [id number] 08:52:09 Test Item Value Reference Range Interpretation Comments Lactate, Art (test code 0.9 mmol/L 0.5-2.2 = 2874) NING (test code = NING) Milking Worker ID - Bayronn slightly icteric Lab Interpretation Normal (test code = 04419-8) [facility] CenterLACTIC ACID, [id number] 08:52:09 Test Item Value Reference Range Interpretation Comments LACTATE BLOOD ARTERIAL (2) 0.9 mmol/L 0.5-2.2 (BEAKER) (test code = 2874) Milking Worker ID - Iam slightly hbxjgjtLZPFQHYGIP1184-01-29 08:37:49 Test Item Value Reference Range Interpretation Comments FIBRINOGEN LEVEL (BEAKER) (test 174 mg/dl 225-434 L code = 658) PROTHROMBIN TIME/[id number] 08:37:17 Test Item Value Reference Range Interpretation [...] H (test code = 413) Blood gas, [id number] 08:26:39 Test Item Value Reference Range Interpretation [...] 21 Lab Interpretation Abnormal (test code = 28722-9) [facility] CenterBlood gas, [id number] 08:26:39 Test Item Value Reference Range Interpretation Comments pH, Arterial (test code 7.51 7.35-7.45 H = 2744-1) pCO2, Arterial (test 27 See_Comment L [Autom ated code = 2019-) message] The system which generated this result [...] 21 Lab Interpretation Abnormal (test code = 30067-2) [facility] CenterBLOOD GAS, [id number] 08:26:39 Test Item Value Reference Range Interpretation [...] (BEAKER) (test code = 1819) 21.0 CALCIUM, [id number] 08:25:08 Test Item Value Reference Range Interpretation Comments CALCIUM IONIZED (BEAKER) (test 1.13 mmol/L 1.12-1.27 code = 698) PH, BLOOD (BEAKER) (test code = 7.50 1810) RAD, CHEST, 1 VIEW, NON [id number] 07:18:00Reason for exam:->Retracted R IJ CVC. Please, re-evaluate placementShould this be performed at the bedside?->[facility]IP : 1985 Sex: [...] 06/09/2022 07:18:03 Urinalysis w/Microscopic + Reflex to [id number] 06:11:15 Test Item Value Reference Range Interpretation Comments Color, UA (test code Yellow = 5778-6) Clarity, UA (test Clear code = 5767-9) Specific [place], UA 1.020 1.001-1.035 (test code = 5811-5) pH, UA (test code = 6.5 5.0-8.0 5803-2) Protein, UA (test Negative negative code = 09478-5) Glucose, UA (test Negative Negative code = 365) Ketones, UA (test Negative negative code = 2514-8) Bilirubin, UA (test Negative Negative code = 89236-5) Blood, UA (test code Small Negative A = 75130-4) Nitrite, UA (test Negative Negative code = 5802-4) Leukocytes, UA (test Negative Negative code = 5799-2) Urobilinogen, UA 2.0 (test code = 37767-8) RBC, UA (test code = 4 See_Comment [Autom ated 33483-5) message] The system which generated this result [...] . Bacteria, UA (test Rare code = 86690-8) Squam Epithel, UA See_Comment [Automate d (test code = 93189-7) messag e] The system which generated this result transmit erna reference range : /HPF. The reference range was not used to interpret this result as normal/abnormal . Hyaline Casts, UA 3 See_Comment [Automate d (test code = 42685-2) messag e] The system which generated this result transmit erna reference range : /LPF. The reference range was not used to interpret this result as normal/abnormal . Specimen Source (test code = 2795) NING (test code = NING) Milking Worker ID - tech Lab Interpretation Abnormal (test code = 58524-6) [facility] CenterUrinalysis w/Microscopic + Reflex to Culture 2022-06-09 06:11:15 Test Item Value Reference Range Interpretation Comments Color, UA (test code Yellow = 5778-6) Clarity, UA (test Clear code = 5767-9) Specific [place], UA 1.020 1.001-1.035 (test code = 5811-5) pH, UA (test code = 6.5 5.0-8.0 5803-2) Protein, UA (test Negative negative code = 10789-0) Glucose, UA (test Negative Negative code = 365) Ketones, UA (test Negative negative code = 2514-8) Bilirubin, UA (test Negative Negative code = 17836-5) Blood, UA (test code Small Negative A = 97680-1) Nitrite, UA (test Negative Negative code = 5802-4) Leukocytes, UA (test Negative Negative code = 5799-2) Urobilinogen, UA 2.0 (test code = 47623-9) RBC, UA (test code = 4 See_Comment [Autom ated 55144-3) message] The system which generated this result [...] . Bacteria, UA (test Rare code = 61867-7) Squam Epithel, UA See_Comment [Automate d (test code = 78171-4) messag e] The system which generated this result transmit erna reference range : /HPF. The reference range was not used to interpret this result as normal/abnormal . Hyaline Casts, UA 3 See_Comment [Automate d (test code = 81703-6) messag e] The system which generated this result transmit erna reference range : /LPF. The reference range was not used to interpret this result as normal/abnormal . Specimen Source (test code = 2795) NING (test code = NING) Milking Worker ID - tech Lab Interpretation Abnormal (test code = 09143-7) [facility] CenterURIN[facility]YSIS W/ REFLEX URINE [id number] 06:11:15 Test Item Value Reference Range Interpretation [...] /LPF 514) SOURCE(BEAKER) (test code = 2795) Milking Worker ID - techRapid drug screen, [id number] 05:42:00 Test Item Value Reference Range Interpretation Comments Barbiturate Screen Negative Negative (test code = 33923-9) Benzodiazepine Screen Positive Negative A (test code = 92013-8) Cocaine (Metab.) Positive Negative A Screen (test code = 3397-7) Methadone Screen (test Negative Negative code = 70663-1) Opiate Screen (test Negative Negative code = 01290-1) Cannabinoid Screen Negative Negative (test code = 25318-0) Amph/Methamph Screen Negative Negative (test code = 82588-9) Phencyclidine Screen Negative Negative (test code = 38384-7) pH, UA (test code = 6.5 5.0-8.0 5803-2) NING (test code = NING) DRUG CUTOFF CONC.Cocaine 300 ng/mL Cannabinoid 50 ng/mLBenzodiazepine 200 ng/mLBarbiturate 200 ng/mLPhencyclidine 25 ng/mLOpiate 300 ng/mLMethadone 300 ng/mLAmphetamine/ 1000 ng/mL Methamphetamine This assay provides an unconfirmed qualitative test result for the clinical management of patients in emergency situations. Chain of custody not maintained. Some hvqy-wzq-eiaaxmj medications, as well as adulterants, may cause inaccurate results. Clinical correlation should be applied. A more comprehensive drug screen or confirmation of a detected drug may be performed upon request.Milking Worker ID - BS Lab Interpretation Abnormal (test code = 06793-5) [facility] CenterRapid drug screen, uoefv2317-09-16 05:42:00 Test Item Value Reference Range Interpretation Comments Barbiturate Screen Negative Negative (test code = 88955-4) Benzodiazepine Screen Positive Negative A (test code = 98335-1) Cocaine (Metab.) Positive Negative A Screen (test code = 3397-7) Methadone Screen (test Negative Negative code = 28915-7) Opiate Screen (test Negative Negative code = 56397-9) Cannabinoid Screen Negative Negative (test code = 26086-5) Amph/Methamph Screen Negative Negative (test code = 42232-5) Phencyclidine Screen Negative Negative (test code = 11554-2) pH, UA (test code = 6.5 5.0-8.0 5803-2) NING (test code = NING) DRUG CUTOFF CONC.Cocaine 300 ng/mL Cannabinoid 50 ng/mLBenzodiazepine 200 ng/mLBarbiturate 200 ng/mLPhencyclidine 25 ng/mLOpiate 300 ng/mLMethadone 300 ng/mLAmphetamine/ 1000 ng/mL Methamphetamine This assay provides an unconfirmed qualitative test result for the clinical management of patients in emergency situations. Chain of custody not maintained. Some txqx-ljv-drtsujh medications, as well as adulterants, may cause inaccurate results. Clinical correlation should be applied. A more comprehensive drug screen or confirmation of a detected drug may be performed upon request.Milking Worker ID - BS Lab Interpretation Abnormal (test code = 09001-4) [facility] CenterRAPID DRUG SCREEN, [id number] 05:42:00 Test Item Value Reference Range Interpretation [...] situations. Chain of custody not maintained. Some gwvl-vsh-fyossty medications, as well as adulterants, may cause inaccurate results. Clinical correlation should be applied. A more comprehensive drug screen or confirmation of a detected drug may be performed upon request.Milking Worker ID - BSBLOOD GAS, ARTERIAL 2022-06-09 05:16:29 [...] (BEAKER) (test code = 1819) 21.0 CALCIUM, [id number] 05:14:38 Test Item Value Reference Range Interpretation Comments CALCIUM IONIZED (BEAKER) (test 1.21 mmol/L 1.12-1.27 code = 698) PH, BLOOD (BEAKER) (test code = 7.47 1810) BASIC METABOLIC [id number] 05:08:20 Test Item Value Reference Range Interpretation [...] not appl icable for dialysis patien ts Milking Worker ID - MARCOSpecimen slightly ictericHEPATIC FUNCTION [id number] 05:08:20 Test Item Value Reference Range Interpretation [...] code = 121 U/L 6-55 H 347) Milking Worker ID - MARCOSpecimen slightly mvbhkcgPWFCDALCY2699-50-70 05:08:19 Test Item Value Reference Range Interpretation Comments MAGNESIUM (BEAKER) (test code = 2.4 mg/dL 1.6-2.6 627) Milking Worker ID - IEVYWJBZCMXRSLN0903-67-89 05:08:19 Test Item Value Reference Range Interpretation Comments PHOSPHORUS (BEAKER) (test code = 2.8 mg/dL 2.3-4.7 604) Milking Worker ID - MARCOTHROMBOELASTOGRAPH (TEG)2022-06-09 05:00:32 Test Item [...] % 0.0-5.0 code = 1414) LACTIC ACID, [id number] 04:54:00 Test Item Value Reference Range Interpretation Comments LACTATE BLOOD ARTERIAL (2) 0.9 mmol/L 0.5-2.2 (BEAKER) (test code = 2874) Milking Worker ID - BSSpecimen slightly apweafyAVEQOKTRDT8614-31-47 04:50:13 Test Item Value Reference Range Interpretation Comments FIBRINOGEN LEVEL (BEAKER) (test 167 mg/dl 225-434 L code = 658) PROTHROMBIN TIME/[id number] 04:49:50 Test Item Value Reference Range Interpretation [...] WBC 0-0 (test code = 413) VITAMIN [id number] 02:35:55 Test Item Value Reference Range Interpretation Comments VITAMIN B12 (BEAKER) (test code = > pg/mL 213-816 H 774) Milking Worker ID - MARCOBASIC METABOLIC [id number] 01:39:15 Test Item Value Reference Range Interpretation [...] not appl icable for dialysis patien ts Milking Worker ID - BSSpecimen slightly voxyaxlJRNDXPFRM6567-80-52 01:23:08 Test Item Value Reference Range Interpretation Comments MAGNESIUM (BEAKER) (test code = 1.5 mg/dL 1.6-2.6 L 627) Milking Worker ID - BSLACTIC ACID, [id number] 01:17:49 Test Item Value Reference Range Interpretation Comments LACTATE BLOOD ARTERIAL (2) 2.3 mmol/L 0.5-2.2 H (BEAKER) (test code = 2874) Milking Worker ID - BSSpecimen slightly icteric(CELLAVISION MANUAL DIFF)2022-06-09 [...] CONCENTRATION Decreased (CELLAVISION)(BEAKER) (test code = 3438) Milking Worker ID - Carine Bobo comments: Slide comments:CBC W/PLT COUNT & AUTO [id number] 01:10:12 Test Item Value Reference Range Interpretation [...] H CELLS (BEAKER) (test code = 413) [id number] 01:04:07 Test Item Value Reference Range Interpretation Comments FIBRINOGEN LEVEL (BEAKER) (test 151 mg/dl 225-434 L code = 658) CALCIUM, [id number] 00:40:04 Test Item Value Reference Range Interpretation Comments CALCIUM IONIZED (BEAKER) (test 1.06 mmol/L 1.12-1.27 L code = 698) PH, BLOOD (BEAKER) (test code = 7.45 1810) BLOOD GAS, [id number] 00:39:58 Test Item Value Reference Range Interpretation [...] 1819) 21.0 RAD, CHEST, 1 VIEW, NON [id number] 00:26:00Reason for exam:->Left IJ central line placementShould this be performed at the bedside?->Yes [facility] : 1985 Sex: FFINAL REPORT Chest, 1 view, 06/09/2022 12:25 AM. History: Left IJ line placement. Comparison: 06/08/2022. Discussion: The cardiomediastinal silhouette and pulmonary vasculature arewithin normal limits for a portable exam. A new left IJ nontunneled dialysis catheter is present terminating in the right atrium. There is no pneumothorax. Right IJ central line is unchanged in position . The lungs are clear without evidence of consolidation or effusion. The soft tissues and osseous structures are intact. IMPRESSION: No evidence of complication post left IJ line placement. Signed: Flora Marinellieport Verified Date/Time: 06/09/2022 00:26:48 BLOOD GAS, [id number] 22:28:00 Test Item Value Reference Range Interpretation [...] (test 1.0 % 0.0-5.0 code = 1414) [id number] 21:35:45 Test Item Value Reference Range Interpretation Comments FIBRINOGEN LEVEL (BEAKER) (test 149 mg/dl 225-434 L code = 658) [id number] 21:28:48 Test Item Value Reference Range Interpretation Comments FERRITIN (BEAKER) (test code = 223.31 ng/mL 5.00-275.00 361) Milking Worker ID - MMLACTIC ACID, [id number] 21:17:43 Test Item Value Reference Range Interpretation Comments LACTATE BLOOD ARTERIAL (2) 9.0 mmol/L 0.5-2.2 HH (BEAKER) (test code = 2874) Milking Worker ID - [id number] 21:17:07 Test Item Value Reference Range Interpretation Comments PHOSPHORUS (BEAKER) (test code = 3.8 mg/dL 2.3-4.7 604) Milking Worker ID - [id number] 21:17:06 Test Item Value Reference Range Interpretation Comments MAGNESIUM (BEAKER) (test code = 1.9 mg/dL 1.6-2.6 627) Milking Worker ID - BSBLOOD GAS, [id number] 21:12:20 Test Item Value Reference Range Interpretation [...] (test code = 1819) 21.0 BASIC METABOLIC [id number] 21:11:38 Test Item Value Reference Range Interpretation [...] not appl icable for dialysis patien ts Milking Worker ID - [id number] 21:10:06 Test Item Value Reference Range Interpretation Comments PARTIAL THROMBOPLASTIN TIME 32.3 seconds 22.5-36.0 (BEAKER) (test code = 760) PROTHROMBIN TIME/[id number] 21:09:27 Test Item Value Reference Range Interpretation Comments PROTIME (BEAKER) (test code = 23.4 seconds 11.9-14.2 H 759) INR (BEAKER) (test code = 370) 2.23 <=5.90 RECOMMENDED COUMADIN/WARFARIN INR THERAPY RANGESSTANDARD DOSE: 2.0 - 3.0 Includes: PROPHYLAXIS for venous thrombosis, systemic embolization; TREATMENT for venous thrombosis and/or pulmonary embolus.HIGH RISK: Target INR is 2.5-3.5 for patients with mechanical heart valves.CALCIUM, [id number] 21:01:33 Test Item Value Reference Range Interpretation Comments CALCIUM IONIZED (BEAKER) (test 0.93 mmol/L 1.12-1.27 L code = 698) PH, BLOOD (BEAKER) (test code = 7.48 1810) LACTATE DEHYDROGENASE (LDH)2022-06-08 20:52:07 Test Item Value Reference Range Interpretation Comments LACTATE DEHYDROGENASE 300 U/L 125-220 H Specim en slightly (BEAKER) (test code = hemoly zed 635) Milking Worker ID - BSIRON, TIBC, % SAT. (WITHOUT FERRITIN)2022-06-08 20:50:25 Test Item Value Reference Range Interpretation Comments IRON (BEAKER) (test code = 547) 120.0 ug/dL 40.0-160.0 TOTAL IRON BINDING CAPACITY 121 ug/dL 250-450 L (BEAKER) (test code = 769) IRON % SATURATION (2) (BEAKER) 99 % 20-55 H (test code = 2590) Milking Worker ID - BSRETICULOCYTE [id number] 20:36:25 Test Item Value Reference Range Interpretation Comments RETICULOCYTE COUNT PCT (BEAKER) (test 1.3 % 0.5-1.7 code = 575) Milking Worker ID - [id number] ANTIGEN WITH HIV-1/2 [id number] 20:11:17 Test Item Value Reference Range Interpretation [...] 4.1 % 0.0-5.0 code = 1414) Screen, [id number] 18:29:14 Test Item Value Reference Range Interpretation Comments Preg Test, Ur (test code = 2112-1) Negative Negative Lab Interpretation (test code = Normal 63190-7) [facility], [id number] 18:29:14 Test Item Value Reference Range Interpretation Comments Preg Test, Ur (test code = 2112-1) Negative Negative Lab Interpretation (test code = Normal 64215-8) [facility]PREG[facility]Y SCREEN, [id number] 18:29:14 Test Item Value Reference Range Interpretation Comments TEST URINE (BEAKER) (test Negative Negative code = 583) BASIC METABOLIC [id number] 18:17:25 Test Item Value Reference Range Interpretation [...] not appl icable for dialysis patien ts Milking Worker ID - BSCALCIUM, [id number] 18:05:08 Test Item Value Reference Range Interpretation Comments CALCIUM IONIZED (BEAKER) (test 0.71 mmol/L 1.12-1.27 LL code = 698) PH, BLOOD (BEAKER) (test code = 7.46 1810) CBC W/PLT COUNT & AUTO [id number] 18:04:39 Test Item Value Reference Range Interpretation [...] PERCENT (BEAKER) (test code = 2801) T4, [id number] 18:01:04 Test Item Value Reference Range Interpretation Comments FREE T4 (BEAKER) (test code = 655) 1.36 ng/dL 0.70-1.48 Milking Worker ID - MMLACTIC ACID, [id number] 17:58:08 Test Item Value Reference Range Interpretation Comments LACTATE BLOOD 1.7 mmol/L 0.5-2.2 Specimen sligh tly ARTERIAL (2) (BEAKER) hemoly zed (test code = 2874) Milking Worker ID - FAT-[id number] 17:55:47 Test Item Value Reference Range Interpretation [...] exclusion of thrombosis is within 95-100% range. PT/[id number] 17:53:22 Test Item Value Reference Range Interpretation [...] is 2.5-3.5 for patients with mechanical heart valves.[id number] 17:53:09 Test Item Value Reference Range Interpretation Comments FIBRINOGEN LEVEL (BEAKER) (test 243 mg/dl 225-434 code = 658) POC [id number] 17:40:15 Test Item Value Reference Range Interpretation Comments POC-Glucose (test code = 187 mg/dL 70-110 H : T ESTED AT [facility] 1855) [address] [facility], [address]: Milking Worker/Techni skip ID = [id number] for ANGELINA MOURA Lab Interpretation (test Abnormal code = 78873-4) [facility] [id number] 17:40:15 Test Item Value Reference Range Interpretation Comments POC-Glucose (test code = 187 mg/dL 70-110 H : T ESTED AT [facility] 1855) [address] [place] [address], [address]: Milking Worker/Techni skip ID = [id number] for ZENY ANGELINA Lab Interpretation (test Abnormal code = 76041-7) [facility]-[id number] 17:40:15 Test Item Value Reference Range Interpretation Comments POC-GLUCOSE (BEAKER) 187 mg/dL 70-110 H : TESTE D AT [facility] 6720 (test code = 1855) [facility], [address]: Milking Worker/Techni skip ID = [id number] for ANGELINA MOURA XPQA-[id number] 17:40:14 Test Item Value Reference Range Interpretation Comments POC-Hemoglobin (test code 11.9 g/dL 12.0-15.0 L : TESTED AT [facility] = 1856) [address] [facility], [address]: Milking Worker/Techni skip ID = [id number] for ZENYWILLAN Lab Interpretation (test Abnormal code = 80607-8) [facility] CenterMxxpdtWKBV-YDOIAHZVLO0593-81-01 17:40:14 Test Item Value Reference Range Interpretation Comments POC-Hematocrit (test code 35 % 36-45 L : = 1857) Milking Worker/Techni skip ID = [id number] for ZENY, ANGELINA Lab Interpretation (test Abnormal code = 37916-0) [facility] CenterZsajnpYUUM-TSASZHILKO8943-35-01 17:40:14 Test Item Value Reference Range Interpretation Comments POC-Hemoglobin (test code 11.9 g/dL 12.0-15.0 L : TESTED AT [facility] = 1856) [address] [place] [address], [address]: Milking Worker/Techni skip ID = [id number] for ZENY ANGELINA Lab Interpretation (test Abnormal code = 27472-1) [facility] CenterVsekjbZCOV-[id number] 17:40:14 Test Item Value Reference Range Interpretation Comments POC-Hematocrit (test code 35 % 36-45 L : = 1857) Milking Worker/Techni skip ID = [id number] for ANGELINA MOURA Lab Interpretation (test Abnormal code = 97177-1) [facility] CenterByipfxSJDS-[id number] 17:40:14 Test Item Value Reference Range Interpretation Comments POC-HEMOGLOBIN 11.9 g/dL 12.0-15.0 L : TESTED AT [facility] 6720 (BEAKER) (test code [facility], = 1856) [address]: Milking Worker/Techni skip ID = [id number] for ANGELINA MOURA SCRF-[id number] 17:40:14 Test Item Value Reference Range Interpretation Comments POC-HEMATOCRIT 35 % 36-45 L : Milking Worker/Te chnician ID = (BEAKER) (test code = 354355 for ANGELINA MOURA 1857) POC-Blood gases, [id number] 17:40:13 Test Item Value Reference Range Interpretation [...] tomated message] code = 1838) The system whic h generated this result transmit erna reference range : 80.0 - 90.0 mm Hg. The reference r yolanda was not used to interpret this result as normal/abnormal . SO2, Arterial-POC (test 98.0 % 96.0-97.0 H code = 1839) HCO3, Arterilal-POC 18.2 meq/L 21.0-29.0 L (test code = 1840) BE, Arterial-POC (test -6.0 meq/L -2.0-3.0 L : ZOILA ERNA AT [facility] code = 1841) [address] [facility] [place], [address]: Milking Worker/Techni skip ID = [id number] for ANGELINA MOURA Lab Interpretation Abnormal (test code = 26536-0) [facility]-Gkiogdsta3170-96-97 17:40:13 Test Item Value Reference Range Interpretation Comments POC-Potassium (test code 3.9 meq/L 3.6-5.5 : T ESTED AT [facility] = 1540) [address] [facility], [address]: Milking Worker/Techni skip ID = [id number] for ANGELINA MOURA Lab Interpretation (test Normal code = 51664-1) [facility]-Cyebyk9280-68-82 17:40:13 Test Item Value Reference Range Interpretation Comments POC-Sodium (test code = 134 meq/L 135-148 L : TE STED AT [facility] 1542) [address] [facility], [address]: Milking Worker/Techni skip ID = [id number] for ANGELINA MOURA Lab Interpretation (test Abnormal code = 08550-3) [facility]-Blood gases, uhymkoby7070-66-72 17:40:13 Test Item Value Reference Range Interpretation [...] tomated message] code = 1838) The system ic h generated this result transmit erna reference range : 80.0 - 90.0 mm Hg. The reference r yolanda was not used to interpret this result as normal/abnormal . SO2, Arterial-POC (test 98.0 % 96.0-97.0 H code = 1839) HCO3, Arterilal-POC 18.2 meq/L 21.0-29.0 L (test code = 1840) BE, Arterial-POC (test -6.0 meq/L -2.0-3.0 L : ZOILA ERNA AT [facility] code = 1841) [address] [facility] [place], [address]: Milking Worker/Techni skip ID = [id number] for ANGELINA MOURA Lab Interpretation Abnormal (test code = 95717-3) [facility]-Ckgtbootr6003-99-93 17:40:13 Test Item Value Reference Range Interpretation Comments POC-Potassium (test code 3.9 meq/L 3.6-5.5 : T ESTED AT [facility] = 1540) [address] [facility], [address]: Milking Worker/Techni skip ID = [id number] for ANGELINA MOURA Lab Interpretation (test Normal code = 79815-9) [facility]-Uhourw8830-22-17 17:40:13 Test Item Value Reference Range Interpretation Comments POC-Sodium (test code = 134 meq/L 135-148 L : TE STED AT [facility] 1542) [address] [facility], [address]: Milking Worker/Techni skip ID = [id number] for ANGELINA MOURA Lab Interpretation (test Abnormal code = 04327-7) [facility]-BLOOD GASES, [id number] 17:40:13 Test Item Value Reference Range Interpretation [...] -6.0 meq/L -2.0-3.0 L : TESTED AT [facility] 6720 ARTERIAL-POC [facility], (BEAKER) (test [address]: code = 1841) Milking Worker/Techni skip ID = [id number] for ANGELINA MOURA HWAB-[id number] 17:40:13 Test Item Value Reference Range Interpretation Comments POC-SODIUM (DEVIKAAKER) 134 meq/L 135-148 L : TESTED AT [facility] 6720 (test code = 1542) [facility] [place], [address]: Milking Worker/Techni skip ID = [id number] for ANGELINA MOURA RGRD-[id number] 17:40:13 Test Item Value Reference Range Interpretation Comments POC-POTASSIUM 3.9 meq/L 3.6-5.5 : TESTED AT [facility] 67 (BEAKER) (test code [facility], = 1540) [address]: Milking Worker/Techni skip ID = [id number] for ANGELINA MOURA U/S, DUPLEX, [id number] 17:35:00Reason for exam:->please evaluate hepatic vasculature [facility] 1985 Sex: [...] Rubio Verified Date/Time: 06/08/2022 17:35:07 Reading Location: [address] Body Reading Room HEPATITIS B SURFACE [id number] 17:32:15 Test Item Value Reference Range Interpretation Comments HEPATITIS B SURFACE ANTIBODY < mIU/mL <8.0 (BEAKER) (test code = 647) Milking Worker ID - BSHEPATITIS B CORE ANTIBODY, [id number] 17:27:01 Test Item Value Reference Range Interpretation Comments HEPATITIS B CORE TOTAL ANTIBODY Nonreactive Nonreactive (BEAKER) (test code = 497) Milking Worker ID - BSHEPATITIS A ANTIBODY, [id number] 17:27:01 Test Item Value Reference Range Interpretation Comments HEPATITIS A IGG ANTIBODY (BEAKER) Nonreactive Nonreactive (test code = 2797) Milking Worker ID - BSHEPATITIS A ANTIBODY, [id number] 17:27:00 Test Item Value Reference Range Interpretation Comments HEPATITIS A IGM ANTIBODY (BEAKER) Nonreactive Nonreactive (test code = 498) Milking Worker ID - [id number] 17:16:00 Test Item Value Reference Range Interpretation Comments POTASSIUM (BEAKER) (test code = 3.0 meq/L 3.5-5.1 L 379) Milking Worker ID - KGYVFGDB1550-05-25 17:16:00 Test Item Value Reference Range Interpretation Comments SODIUM (BEAKER) (test code = 381) 134 meq/L 136-145 L Milking Worker ID - [id number] 17:16:00 Test Item Value Reference Range Interpretation Comments GLUCOSE RANDOM (BEAKER) (test code 107 mg/dL 70-105 H = 652) Milking Worker ID - MMSALICYLATE [id number] 17:04:01 Test Item Value Reference Range Interpretation Comments SALICYLATE LEVEL (BEAKER) (test code < mg/dL 15.0-30.0 L = 764) Therapeutic Range: 15.0-30.0 mg/dLToxic: >30.0 mg/dL Lethal: >70.0 mg/dLOperator ID - [id number] 16:50:51 Test Item Value Reference Range Interpretation Comments CORTISOL, TOTAL (BEAKER) (test 13.4 ug/dL 3.7-19.4 code = 4355) Milking Worker ID - EHNHSHH-7-OWFEVJBGXEX2073-04-01 16:35:51 Test Item Value Reference Range Interpretation Comments ALPHA-1 ANTITRYPSIN (BEAKER) 282.30 mg/dL 90.00-200.00 H (test code = 502) Milking Worker ID - BSACETAMINOPHEN [id number] 16:30:13 Test Item Value Reference Range Interpretation Comments ACETAMINOPHEN LEVEL (BEAKER) (test < ug/mL 10.0-30.0 L code = 344) Therapeutic Range: 10.0-30.0 g/mLToxic Levels: >200.0 g/mLOperator ID - MM TSH/FREE T4 IF [id number] 16:15:28 Test Item Value Reference Range Interpretation Comments THYROID STIMULATING HORMONE 0.121 uIU/mL 0.350-4.940 L (BEAKER) (test code = 772) Milking Worker ID - BSHEPATITIS C [id number] 16:10:06 Test Item Value Reference Range Interpretation Comments HEPATITIS C ANTIBODY (BEAKER) Nonreactive Nonreactive (test code = 367) Milking Worker ID - BSHEPATITIS B SURFACE [id number] 16:10:05 Test Item Value Reference Range Interpretation Comments HEPATITIS B SURFACE ANTIGEN (2) Nonreactive Nonreactive (BEAKER) (test code = 2585) Specimen is considered negative for HBsAg.[id number] 15:13:41 Test Item Value Reference Range Interpretation Comments AMMONIA (BEAKER) (test code = 348) 44 mol/L 18-72 Milking Worker ID - MMCREATINE KINASE (CK)2022-06-08 15:03:37 Test Item Value Reference Range Interpretation Comments CREATINE KINASE TOTAL (BEAKER) (test 42 U/L 29-200 code = 380) Milking Worker ID - MMU/S, ABDOMINAL, SSSYKVXQ2535-15-34 14:56:00Reason for exam:- >eval RUQ and kidneys [facility] : 1985 Sex: [...] Rubio MDReport Verified Date/Time: 06/08/2022 14:56:28 ReadingLocation: [facility] B1 C013Y CT Body Reading Room VITAMIN [id number] 14:03:03 Test Item Value Reference Range Interpretation Comments VITAMIN B12 (BEAKER) (test code = > pg/mL 213-816 H 774) Milking Worker ID - MMCOMPREHENSIVE METABOLIC [id number] 13:41:11 Test Item Value Reference Range Interpretation [...] glom erular filtration rate . Estimated GFR i s not applicable for dialysis patients Milking Worker ID - MMRAD, CHEST, 1 VIEW, NON [id number] 13:40:00Reason for exam:- >CVC placementShould this be performed at the bedside?->Yes [facility] : 1985 Sex: FFINAL REPORT Chest, one view History: Placement of central venous catheter Comparison: none Findings:Clear lungs. Normal size heart. No pleural effusion or pneumothorax. A rightinternal jugular central venous catheter terminates within the superior vena cava. Impression:Satisfactory position of right internal jugular central venous catheter. Signed: Arturo Dumont Verified Date/Time: 06/08/2022 13:40:21 [id number] 13:37:09 Test Item Value Reference Range Interpretation Comments FERRITIN (BEAKER) (test code = 273.35 ng/mL 5.00-275.00 361) Milking Worker ID - [id number] 13:11:23 Test Item Value Reference Range Interpretation [...] % 20-55 H (test code = 2590) Milking Worker ID - [id number] 13:08:43 Test Item Value Reference Range Interpretation Comments PHOSPHORUS (BEAKER) (test code = 3.8 mg/dL 2.3-4.7 604) Milking Worker ID - [id number] 13:08:42 Test Item Value Reference Range Interpretation Comments MAGNESIUM (BEAKER) (test code = 2.6 mg/dL 1.6-2.6 627) Milking Worker ID - [id number] 13:02:42 Test Item Value Reference Range Interpretation Comments PARTIAL THROMBOPLASTIN TIME 31.7 seconds 22.5-36.0 (BEAKER) (test code = 760) PROTHROMBIN TIME/[id number] 13:02:02 Test Item Value Reference Range Interpretation [...] mechanical heart valves.CBC W/PLT COUNT & AUTO [id number] 12:49:19 Test Item Value Reference Range Interpretation [...] 0.00-1.00 PERCENT (BEAKER) (test code = 2801) TZWV-[id number] 12:31:06 Test Item Value Reference Range Interpretation Comments POC-POTASSIUM 3.6 meq/L 3.6-5.5 : TESTED AT [place] [address] (BEAKER) ([facility] = 1540) [address]: Milking Worker/Techni skip ID = [id number] for ZENY ANGELINA YJVZ-[id number] 12:31:06 Test Item Value Reference Range Interpretation Comments POC-HEMOGLOBIN 6.8 g/dL 12.0-15.0 L : TESTED AT [facility] 67 (BEAKER) (test code = JANIE [facility], 1856) [address]: Milking Worker/Techni skip ID = [id number] for ANGELINA MOURA IBHH-[id number] 12:31:06 Test Item Value Reference Range Interpretation Comments POC-HEMATOCRIT 20 % 36-45 L : Milking Worker/Te chnician ID = (BEAKER) (test code = 519133 for ANGELINA MOURA 1857) [id number]-[id number] 12:31:06 Test Item Value Reference Range Interpretation Comments POC-GLUCOSE (BEAKER) 105 mg/dL 70-110 : TESTE D AT [facility] 6720 (test code = 1855) [place], [address]: Milking Worker/Techni skip ID = [id number] for ANGELINA MOURA POCT-BLOOD GASES, [id number] 12:31:00 Test Item Value Reference Range Interpretation [...] -3.0 meq/L -2.0-3.0 L : TESTED AT [facility] [address] ARTERIAL-POC [facility], (BEAKER) (test [address]: code = 1841) Milking Worker/Techni skip ID = [id number] for ANGELINA MOURA [id number]-[id number] 12:31:00 Test Item Value Reference Range Interpretation Comments POC-SODIUM (BEAKER) 132 meq/L 135-148 L : TESTED AT [facility] 6720 (test code = 1542) [place], [address]: Milking Worker/Techni skip ID = [id number] for ANGELINA MOURA Culture, [id number] 15:56:00 Test Item Value Reference Range Interpretation Comments Culture, Urine (test code = URC) NF Culture, Urine (test code = URC1) 50 MSF [id number] 19:50:00 Test Item Value Reference Range Interpretation [...] EGFRCR) Estimated GFR: Greater than 90 mL/min/1.73 l2Bxjmguqo eGFR is based on the CK D-EPI [...] code = 14 U/L 8-55 N ALT) [id number] 19:50:00 Test Item Value Reference Range Interpretation Comments Chemistry (test code = LIP) 39 U/L 8-78 N [id number] 19:46:00 Test Item Value Reference Range Interpretation Comments Chemistry (test Less than < 0.028 code = TROPI-R) 0.010 ng/mL Reference Ra nge 0.00 - 0.028 ng /mL Negative 0.029 - 0.29 ng/mL Indetermi vincent Greater or Equa l to 0.3 ng/mL Stron gly suggests [place] Chemistry - [id number] 19:43:00 Test Item Value Reference Range Interpretation Comments Chemistry - Lactate (test code = 0.6 mmol/L 0.5-2.2 N LACTSEP-T) Chemistry - Grszponk4591-85-74 19:27:00 Test Item Value Reference Range Interpretation Comments Chemistry - Specials Negative NEGATIVE Method of sensitivity- (test code = BHCGST) Indeter minant: results should be repea erna after 48-72 hrs Positive: resul ts may be detected as early as 1 day after the first missed me nses. Ztwiysxsvy6811-12-49 19:22:00 Test Item Value Reference Range Interpretation [...] code = BASO#) 0.0 thou/uL 0.0-0.2 N Xgwdzplgrt6938-44-85 19:16:00 Test Item Value Reference Range Interpretation Comments Urinalysis (test code = [place] Yellow A UACLR) Urinalysis (test code = [...] Seen A UABAC) Urine Source: Urine VoidedType [id number] 09:43:00 Test Item Value Reference Range Interpretation [...] 7 days from now? NOPacked Cells - Tsxlljdufncj6006-24-87 09:43:[id number] OP [facility] TRANSFUSED 03/09/22 0342 Jxlmfwmtmq9638-40-90 05:58:00 Test Item Value Reference Range Interpretation [...] Urine Clean CatchUrine specific gravity measurement by bcvdedlebdzgb6125-64-56 05:17:00 Test Item Value Reference Range Interpretation Comments Urine Specific [place] (test code = 1.054 1.002-1.036 5810-7) [facility] pH measurement by automated test hbpua2400-18-51 05:17:00 Test Item Value Reference Range Interpretation Comments Urine pH (test code = 94841-2) 6.5 5.0-9.0 [facility] leukocyte esterase detection by automated test [id number] 05:17:00 Test Item Value Reference Range Interpretation Comments Urine Leukocyte Esterase (test code 75 [place]/uL Negative = 22422-9) [facility] in Urine by Test [id number] 05:17:00 Test Item Value Reference Range Interpretation Comments Urine Nitrite (test code = 5802-4) Negative Negative [facility] protein measurement by automated test strip (mass/volume)2022-03-09 05:17:00 Test Item Value Reference Range Interpretation Comments Urine Protein (test code = Negative mg/dL Neg-Trace 78051-8) [facility] glucose measurement by test strip (mass/volume) 2022-03-09 05:17:00 Test Item Value Reference Range Interpretation Comments Urine Glucose (UA) (test code = Normal mg/dL Negative 5792-7) [facility] ketones measurement by automated test strip (mass/volume)2022-03-09 05:17:00 Test Item Value Reference Range Interpretation Comments Urine Ketones (test code = Negative mg/dL Negative 14981-0) [facility] urobilinogen measurement (units/volume) by test [id number] 05:17:00 Test Item Value Reference Range Interpretation Comments Urine Urobilinogen (test code = Normal mg/dL Less than 2 50741-9) [facility] total bilirubin detection by automated test [id number] 05:17:00 Test Item Value Reference Range Interpretation Comments Urine Bilirubin (test code = Negative Negative 26590-6) [facility] hemoglobin detection by automated test strip 2022-03-09 05:17:00 Test Item Value Reference Range Interpretation Comments Urine Blood (test code = 68230-5) 3+ Negative [facility] erythrocytes detection by automated method 2022-03-09 05:17:00 Test Item Value Reference Range Interpretation Comments Urine RBC (test code = 92566-2) 4-6 HPF 0-3 [facility] leukocytes detection by automated method 2022-03-09 05:17:00 Test Item Value Reference Range Interpretation Comments Urine WBC (test code = 42170-9) 0-3 HPF 0-3 [facility] cells.squamous [#/area] in Urine sediment by Automated [id number] 05:17:00 Test Item Value Reference Range Interpretation Comments Urine Squamous Epithelial Cells (test 0-3 HPF 0-3 code = 69564-3) [facility] bacteria detection by automated xqowjr5541-70-20 05:17:00 Test Item Value Reference Range Interpretation Comments Urine Bacteria (test code = None Seen HPF None Seen 75940-3) [facility] by Efml6882-85-94 05:17:00 Test Item Value Reference Range Interpretation Comments Urine Color (test code = Light-Yellow Yellow 32791-2) [facility] clarity by refractometry qhlbnzpgl3929-23-55 05:17:00 Test Item Value Reference Range Interpretation Comments Urine Clarity (test code = 99487-1) Clear Clear [facility]2022-[facility] 03:39:00 Test Item Value Reference Range Interpretation Comments Chemistry (test Less than < 0.028 code = TROPI-R) 0.010 ng/mL Reference Ra nge 0.00 - 0.028 n g/mL Negative 0.029 - 0.29 ng/mL Indetermi vincent Greater or Equa l to 0.3 ng/mL Stron gly suggests [place] Chemistry - Evseyoxc7531-90-24 01:51:00 Test Item Value Reference Range Interpretation Comments Chemistry - Specials Negative NEGATIVE Method of sensitivity- (test code = BHCGST) Indeter minant: results should be repea erna after 48-72 hrs Positive: resul ts may be detected as early as 1 day after the first missed me nses. Wjjpgeogzky1896-95-19 01:01:00 Test Item Value Reference Range Interpretation Comments Coagulation (test 14.1 sec 12.0-14.7 N code = PT-T) Coagulation (test 1.1 ATT ENTION: READ code = INR) CAREFULLY-- The recommended the rapeutic ranges for oral anticoagulanttr eatments are: ------ Low Inte nsity: 1.5 - 2.0 Moderate In tensity: 2.0 - 3.0 High Intens ity (1): 2.5 - 3.5 High Intens ity (2): 3.0 - 4.0 CRITICAL: > 6.0 Anticoagulant? NONEMedical Necessity SUSPECT COAGULOPATHYAnticoagulant? NONEMedical Necessity: SUSP FTOJLdvcuylzwsi7022-60-82 01:01:00 Test Item Value Reference Range Interpretation Comments Coagulation (test code = PTT) 32.5 sec 22.9-36.1 N Anticoagulant? NONEMedical Necessity SUSPECT COAGULOPATHYAnticoagulant? NONEMedical Necessity: SUSP LZUMEtvqfohsczu5767-21-46 01:01:00 Test Item Value Reference Range Interpretation Comments Coagulation (test 0.27 *mcg/mL 0.27-0.43 N * Referenc e Range code = DDIMTT) Units: mcg/mL of fibrinogen equi valent units(FEU)Based upon a retrospective study of [facility] in July 2005, a result of"Less than 0. 44 mcg/mL FEU" is predictive of t he absence ofa DVT or PE. Anticoagulant? NONEMedical Necessity SUSPECT COAGULOPATHYAnticoagulant? NONEMedical Necessity: SUSP COAGChemistry - Rzeoebg3513-10-98 00:53:00 Test Item Value Reference Range Interpretation Comments Chemistry - Lactate (test code = 0.7 mmol/L 0.5-2.2 N LACTSEP-T) Retype Verify-Blood Type [id number] 00:36:00 Test Item Value Reference Range Interpretation Comments Blood Type Rh (test code = BT) A POSITIVE Serum or plasma lactate measurement (moles/volume)2022-03-09 00:26:00 Test Item Value Reference Range Interpretation Comments Lactic Acid Level (test code = 0.7 mmol/L 0.5-2.2 2524-7) [facility]thrombin time (PT) in platelet poor plasma by coagulation mclld7741-55-21 00:26:00 Test Item Value Reference Range Interpretation Comments Prothrombin Time (test code = 14.1 sec 12.0-14.7 5902-2) [facility]R in Platelet poor plasma by Coagulation assay 2022-03-09 00:26:00 Test Item Value Reference Range Interpretation Comments INR International Normalized Ratio 1.1 (test code = 6301-6) [facility]ccallActivated partial thromboplastin time (aPTT) in platelet poor plasma by coagulation [id number] 00:26:00 Test Item Value Reference Range Interpretation Comments Activated Partial Thromboplast Time 32.5 sec 22.9-36.1 (test code = 52727-3) [facility]allFibrin D-dimer FEU measurement in platelet poor plasma (mass/volume)2022-03-09 00:26:00 Test Item Value Reference Range Interpretation Comments D-Dimer (test code = 50262-5) 0.27 *mcg/mL 0.27-0.43 [facility]2022-12-[facility] 00:01:00 Test Item Value Reference Range Interpretation Comments Chemistry (test Less than < 0.028 code = TROPI-R) 0.010 ng/mL Reference Ra nge 0.00 - 0.028 ng /mL Negative 0.029 - 0.29 ng/mL Indetermi vincent Greater or Equa l to 0.3 ng/mL [place] gly suggests [place] Mwayamylr5730-93-31 23:59:00 Test Item Value Reference Range Interpretation [...] EGFRCR) Estimated GFR: Greater than 90 mL/min/1.73 q1Mfgspasi eGFR is based on the CK D-EPI [...] code = 7 U/L 8-55 L ALT) Lcnaqdraj8867-65-07 23:59:00 Test Item Value Reference Range Interpretation Comments Chemistry (test code = LIP) 42 U/L 8-78 N Qsxnetzwlj9516-62-79 23:36:00 Test Item Value Reference Range Interpretation [...] = 2951-2) 140 mmol/L 136-145 [facility] or plasma potassium measurement (moles/volume) 2022-03-08 23:16:00 Test Item Value Reference Range Interpretation Comments Potassium Level (test code = 3.7 mmol/L 3.5-5.1 2823-3) [facility] or plasma chloride measurement (moles/volume) 2022-03-08 23:16:00 Test Item Value Reference Range Interpretation Comments Chloride Level (test code = 105 mmol/L 98-107 5-0) [facility] or plasma carbon dioxide, total measurement (moles/volume)2022-03-08 23:16:00 Test Item Value Reference Range Interpretation Comments Carbon Dioxide Level (test code = 27 mmol/L -29 2027-11) [facility] or plasma anion [id number] 23:16:00 Test Item Value Reference Range Interpretation Comments Anion Gap (test code = 83054-7) 12 mmol/L 10-20 [facility] or plasma urea nitrogen measurement (mass/volume)2022-03-08 23:16:00 Test Item Value Reference Range Interpretation Comments Blood Urea Nitrogen (test code = 13 mg/dL 7.0-18.7 3094-0) [facility] or plasma creatinine measurement (mass/volume) 2022-03-08 23:16:00 Test Item Value Reference Range Interpretation Comments Creatinine (test code = 2160-0) 0.67 mg/dL 0.6-1.1 [facility]/1.73 sq M.predicted [Volume Rate/Area] in Serum, Plasma [id number] 23:16:00 Test Item Value Reference Range Interpretation Comments Estimated GFR (CKD-EPI 2020) (test code 115 = 08837-4) [facility]Glucose [Mass/volume] in Serum or Xmwihq6323-20-43 23:16:00 Test Item Value Reference Range Interpretation Comments Glucose Level (test code = 2345-7) 107 mg/dL 70-105 [facility] or plasma calcium measurement (mass/volume) 2022-03-08 23:16:00 Test Item Value Reference Range Interpretation Comments Calcium Level (test code = 23959-3) 8.5 mg/dL 7.8-10.44 [facility] or plasma total bilirubin measurement (mass/volume)2022-03-08 23:16:00 Test Item Value Reference Range Interpretation Comments Total Bilirubin (test code = 0.2 mg/dL 0.2-1.2 1975-2) [facility] or plasma protein measurement (mass/volume) 2022-03-08 23:16:00 Test Item Value Reference Range Interpretation Comments Serum Total Protein (test code = 6.0 g/dL 6.0-8.3 2885-2) [facility] or plasma albumin measurement by bromocresol green (BCG) dye binding method ([id number] 23:16:00 Test Item Value Reference Range Interpretation Comments Albumin (test code = 47462-1) 3.6 g/dL 3.5-5.0 [facility]allGlobulin [Mass/volume] in Serum by calculation 2022-03-08 23:16:00 Test Item Value Reference Range Interpretation Comments Globulin (test code = 95709-1) 2.4 g/dL 2.4-3.5 [facility]allAlbumin/Globulin [Mass Ratio] in Serum or Plasma 2022-03-08 23:16:00 Test Item Value Reference Range Interpretation Comments Albumin/Globulin Ratio (test code = 1.5 g/dL 1.2-2.2 1759-0) [facility]allAlkaline phosphatase [Enzymatic activity/volume] in Serum or Iuleph4384-54-80 23:16:00 Test Item Value Reference Range Interpretation Comments Alkaline Phosphatase (test code = 58 U/L 40-110 6768-6) [facility] or plasma aspartate aminotransferase measurement (enzymatic activity/volume)2022-03-08 23:16:00 Test Item Value Reference Range Interpretation Comments Aspartate Amino Transf (AST/SGOT) (test 8 U/L 5-34 code = 1920-8) [facility] or plasma alanine aminotransferase measurement without P-5'-P (enzymatic zqcrpi8144-65-52 23:16:00 Test Item Value Reference Range Interpretation Comments Alanine Aminotransferase (ALT/SGPT) 7 U/L 8-55 (test code = 1744-2) [facility] or plasma lipase measurement (enzymatic activity/volume)2022-03-08 23:16:00 Test Item Value Reference Range Interpretation Comments Lipase (test code = 3040-3) 42 U/L 8-78 [facility] human chorionic gonadotropin detection for iipwwwlru1918-25-37 23:16:00 Test Item Value Reference Range Interpretation [...] = 94.0 fl 78.0-98.0 787-2) [facility] mean corpuscular hemoglobin (mass per erythrocyte)2022-03-08 23:16:00 Test Item Value Reference Range Interpretation Comments Mean Corpuscular Hemoglobin (test 34.2 pg 27.0-31.0 code = 785-6) [facility] corpuscular hemoglobin concentration measurement (mass/kuf7846-20-95 23:16:00 Test Item Value Reference Range Interpretation Comments Mean Corpuscular Hemoglobin Concent 36.4 g/dL 32.0-36.0 (test code = 786-4) [facility] distribution width ratio 2022-03-08 23:16:00 Test Item Value Reference Range Interpretation Comments Red Cell Distribution Width (test code 13.8 % 11.5-14.5 = 788-0) [facility] platelet count (count/volume) 2022-03-08 23:16:00 Test Item Value Reference Range Interpretation Comments Platelet Count (test code = 237 10x3/uL 130-400 777-3) [facility] blood platelet mean gefmsk1921-47-09 23:16:00 Test Item Value Reference Range Interpretation Comments Mean Platelet Volume (test code = 7.2 fL 7.4-10.4 88021-5) [facility] neutrophils/100 qtitmranqc3566-51-41 23:16:00 Test Item Value Reference Range Interpretation Comments Neutrophils % (test code = 770-8) 60.3 % 42.0-75.0 [facility] leukocytes in Blood by Automated count 2022-03-08 23:16:00 Test Item Value Reference Range Interpretation Comments Lymphocytes % (test code = 736-9) 30.8 % 21.0-51.0 [facility] monocytes/100 rkpkjmtdij0770-53-59 23:16:00 Test Item Value Reference Range Interpretation Comments Monocytes % (test code = 5905-5) 5.5 % 0.0-10.0 [facility] blood eosinophils/100 yhvjamftcp1179-71-49 23:16:00 Test Item Value Reference Range Interpretation Comments Eosinophils % (test code = 713-8) 3.2 % 0.0-10.0 [facility] blood basophils/100 ewazxgilgg2400-03-52 23:16:00 Test Item Value Reference Range Interpretation Comments Basophils % (test code = 706-2) 0.2 % 0.0-1.0 [facility] count (number/volume) 2022-03-08 23:16:00 Test Item Value Reference Range Interpretation Comments Neutrophils # (test code = 751-8) 4.7 thou/uL 1.40-6.50 [facility]ph[facility] [#/volume] in Blood by Automated count 2022-03-08 23:16:00 Test Item Value Reference Range Interpretation Comments Lymphocytes # (test code = 731-0) 2.4 thou/uL 1.20-3.40 [facility] monocytes automated count (number/volume) 2022-03-08 23:16:00 Test Item Value Reference Range Interpretation Comments Monocytes # (test code = 742-7) 0.4 thou/uL 0.11-0.59 [facility] eosinophils automated count (count/volume) 2022-03-08 23:16:00 Test Item Value Reference Range Interpretation Comments Eosinophils # (test code = 711-2) 0.2 thou/uL 0.0-0.7 [facility] basophil count (count/volume) 2022-03-08 23:16:00 Test Item Value Reference Range Interpretation Comments Basophils # (test code = 704-7) 0.0 thou/uL 0.0-0.2 [facility] Uarw1860-30-72 16:47:26 Test Item Value Reference Range Interpretation Comments Case Report (test code Surgical Pathology = 104) Report Case: [id number] Authorizing Provider: Nathaniel Dooley MD Collected: 02/26/2022 04:38 PM Ordering Location: [address] Received: 02/27/2022 07:57 AM Service Pathologist: Gene Carlton MD Specimen: Cervix DIAGNOSIS (test code = u6akbJQkWNUpg2asVXIgoB 3220) FuZzEwMzNcZnRuYmpcdWMx IHtccnRmMVxlcGljOTYwMl zprjKnCYRvxAIaE6Qdbdcr UCneUR0tPF9yfNzdaWGcsV GoECDvSuXct5pdm286lHBu m7vxQAPTkhompWl3pZudI5 9ik5A7SwnaN39skJSxTKR2 UIPdJHNxsEGmCANkKKI4IP JgcXTuC6hoQEObHT6ryxrr STlqKMytESNqcOT7CGSgvH EsB0XjLDYfAKikHGDlfhb9 RxTaQd6wuMLuhJgyEBkmHD UfGQOyFUzmTNGhGqEtC4WH TegWVWKUFNXEJSXLZR8ML5 g8JJKfqmy0UTPvQBNJWHOQ WjOBN3oIULVGQjKJUEUPTG HhL3XuE3CDOO7QZVBcK9UJ GUUZMETHRE6YZENqLADnMI Yqu64pBA26ITviRIP9q1pt dGYxXHNzdGUxODAwMFxhbn NpXGRlZmxhbmcxMDMzXGZ0 bmJqXHVjMVxkZWZmMHtcZm 7dhNApbGtsZiRaRECwh9fk mcGBvdmedQs5s9pbEAQcUb Z0vOCjEBpzC5qacmGqxJXm YDBiCKa9dC50RFIqcT3rjS SgTUfgmjLrRpX0DSwbZPJl ZpH2GAGxaLGeYTWsF3oaGK QwXGdyZWVuMFxibHVlMCA7 cTcpu3D5jJQiqIQwuUraTp WkDgKwUlKRv0HaOTv3eKwm L2ViSEFeTlT9qUSpSVCoCS cxDEQvSULslwG5qD44CHde uvU2uFMnk1Mxk72qq292hE 1uoNRsGPB4ARUlSCXqmVXe HUUzJQK8DAQvxEBnY1taUT FhKK7iplvoSUyxGZkpDZAp pVE7HMCxpWPnJ1MvLPYjDO ksBTNqdkd2MbVxEx4icNAr kUiqQGwpx3aqu0aevKFxAp i6OFWkEbZvVsoeMBqnt6Lr c0noXRRqbo5oZGY0fOLojV yta3M6vYKfAMIxdKNxYOOx BM5hxGSeRFNrnH3xwdfwIA BnYnJkcmhlYWRccGdicmRy Kr0wbJppXQS3CZxgO9bepV 6gPoQ7YOusT0mxkQ0vINg7 QYiwMZDnmGF2ijM9XZDvjY BpB5BwcP3jYJMtCM2vhii6 c4zoNCA0JWkdUOMtRcV0xx W4SCVdkFDoUUBlcDbeBMua s776XLB2EjRqSPJio2IfO3 VnuTpfI13utHjsG75vKPAl jYzhqK9uyYxsgE7rCqJlEg WkSJtrsSmxTE0fCEUkX2fi jMOjIXLdJSJvC3lbJcOevU 8xmBknLBtkieEzBMKkBzq5 PUMjsVDyCPQsLdf7GGWiHY CgW29haaiqXJS9cL6ny3wm y0SeWOdjWKM4VXDzt69aUF bxjcW8FCmeRl52NYmeIKX5 DGayICX9rJ== COMMENT (test code = m0hejVXqISLfkXY3SrWdGL 9022) Zfp3lkv2ZqjLAiaZKlLJhc bOIqrwVxtw96jMG8vU67WZ 5lRVEoMdS1OKKkqjA0Jov5 BAAyUABqkFDiT057a0acr9 sgphXkuOZ2yZsvWVNmlfxe EpC5UOxyNYXujoctTNe5EP akXJShlID7CABwqPIiN6Wm FWSxRT8wxfe7LGF0JJgcNX BkViP5XEDhiFYuVHKneXgf RWumf137SIL3JdDbGLPwrq NovVracJ4cYbKaXYYFtENc hTA9tEEwuGuuHCqks0Ddhn kkt8CpF0BghgnlVYrzsTSt kpPgkvLho4TxCW9pNXgfOO B7sS0dEMWml9ylRNAxI0Lk CG7vC0Yfy1peNGXrm5bnjq UhXBT2uNRtOOBnhyWkrbPp TPU8hCMinTNthIZspPRqzQ Dqi1SgvIE1nsUqsbAzkKX7 UMMao2PuuC89CJLan00wLH Bhcn0= CPT Code(s) (test code m0kywUOjNWSjyQO5VqPkTV = 335) Ogu4fdw4QrlBMnePMyNKne oSTazuAwgi98cTF9gW93WQ 0uAEJvXvK8XVGewuF0Gwq1 YHOxLJBypZEeI436c9ooi3 lnsmNwyZF3sBooQITmzhvu PaH9HVkpLBNspxksVDt6HF jjSKCbtKB9ETXpzWXmX0Nh NDYnGG5hhyz8ZZF1ICiyWB CwHmX3PAIjtFFaVHDsyYfu LDast285BDT4VhItOZOagd MniBhjhL7bYeUbXAI7SMZu NVxwYXJ9 CLINICAL HISTORY (test u2lkmXSvZABeoEC3FxNnUE code = 3356) Lzh3asf9TwdYJdfHJjQWko aIFeuvMeay36tDH0lT23HI 0mYKPrTyT6GRNnloW2Zqf1 JOBeJNHazTUyQ534g3jnw5 cmbwRbkDX1uAftMGVexewg VcK6ISroSEUdojyzLWf0EU ykLTShrZT1FLWhiDGpU9Fc DOIgAV3kbpd9UXV9SJqqXA XuOqO9KOGgiWDcPLOtdGna GWzpy437WAR2TgEsGKRudy MiwQnbwK2dOuJwYPEhVPH0 Fz7bSK2xUT6udPTpmdgiev AvefKpqpSdzvOgttR3YRLh q4e7tZMGISw6MP3mYRlAXW SkmeGcTizytN6stMbflUDv LC75xO8spXNtb0NkuXAiXY kchPeiwmNmfpNmKVvzyK4o zDzkEE8pLwY8LRxtpqJwEB IrPERxfB5zDBZfr8nurhEk YmRvbWluYWwgcGFpbiwgU0 0SXZSmePzsnNcyVSRtKH1b o4PfygVfFOHmOSWbK8QhKC Wlm4CqRPW3oxZvLGAnGVA0 fSB3j80mwKilZTJxCW8iFP BpYCdcFVAoIIxnAZ0eYKRm gzRmZ5BcIE9yd5Rnt1w+b2 0ciL4sJ3kvB8crSYM6 GROSS DESCRIPTION (test a8eprOQqMNQsdUPJSDMwV3 code = [id number]) ketyHqRRZtbXJbP0Gbabmq SRhyFG2bJS7ccEfldEKcgW QwMZ0NNWBjGjQoJLIreFMq rpHsZcBhWCWpxPFoiLR1WG DrQL9qgsvaDDldBGurNLYg vvW3NEEqiHMqU0NwTOZsCU 1kblhjNCD7GRvwgW4odmHQ NelvGs9taYNdvBmwYwKfDf NoYXJzZXQwXGZuaWwgQXJp WMo4wW7FPittMBB2NXNWLz viETSxTZ9Jj1drOAHrpRCg TWA7DXvncHWzKBNtRQInPJ z8TVPeUDsmxOEyLB7urObz TkhyzHalf3ZdzXRcFJlhDL ZhYGRuTScyGAUcAA9OXyXz DAN3YPd5SZDeMIx0JJw1CX 4NEzPrDABcLXI3JKV8DiAs BPk0TAouVG1UEJC1MIO4YC tnSmE5BRA6DxSiURDxBsHy XGYgQXJpYWwgXFxmbCBcXG 9liHeqeOOwrdODQvUHATA2 aXguXHBhciANClxlcGljTm VzdERvYzEgDQpcbHRycGFy XGxpbjBccmluMCANClxsdH LofKeedxYsRWSzC4EkpkGg SIngRFAhpn9ztIjwASwbFb OwLYBnc8i9iDD7vXCpeWO3 cRBgiRxeDrJzKE3biYWcLN 7aMLbbXDhduwAfq1EdYN13 bWJlciBhbmQgImNlcnZpeC IgaXMgYSAwLjUgeCAwLjMg wOMbFbKsF54paRMzFHvzVO paz98toUH7mHVdwBLhCuSl W79xrtGfIEVrxTjxIUD2aJ JqOGCrq27hUES7Bu4cpEZq QUPyzpS9z5AbQMdtKCVuYr gePPIlBIuzuVXlZH4BD9hg wXYyINRRzhA5qcrdTMeERX LNAXEbWNGKTPmlkZyfoR3j IZnxqF5dJS6ALWZwAYcdMC PtqAAMVWU4AT7kORibgKAl zvgbOEHcU8CxV9TrppSjdI OeWXNvflAwc2taIFV6KQRk qNRkxJLbCpHjSeurPKD8WL lnc4jlAAT8ZCJooRNjbYVx XLpcIhNgWgemVEWrJ1WsJ0 QhjrV9VDw0 MICROSCOPIC DESCRIPTION w8uheLYjZAZwvNE4UrVhJR (test code = 3371) Rwa8lyn3TzkHWynZMoAUbn jYXwyjUbjc06yOZ7cQ45IK 0yAOBpJiD8TERifiZ1Pzo4 ZQWwVWQtvJHdJ910k1mex3 gygcQolGV1sIviCJBjkckt NpU4UNhtMRRflnszZVx9NI uwXDEeiIX3SKSlqGDkB0Gf YGCmLO4bskl4AQG2XBppHE IgDdP9IUTobILwHDWmiMot FXben199TTV5PmOlNTUuvf KxqZffaT0mBcIfOZPHRIHe o6EfGNVeRCAaxu9= SPECIAL STUDIES (test r0hbqEWeVCEvj0ogVEVbgY code = 3376) FuZzEwMzNcZnRuYmpcdWMx GOprkfWhUTdmv3ZyD5ZmBq AwMFxhbnNpXGRlZmxhbmcx DMAeSRT0bgHyJKBbMJrdOO GhCNkjGp5gbZBmiYnvSuBy ZYNpr4giiiFEwazboFh1e2 waCDCxUhF6mKUoYLgwK7yw khAvpFDfP8KhzQAgmGl2c5 xgRlNkRfH0tPOxMBqtD3cs oqAbpRGiXYXrDFz9dR23JQ WrqQ2xjCYpCUkhvzPgIqR4 XTctJGGdClS8PFNimMCqMP EpT9xbJAJoTVvyQLPpCEvt cPZlBDH4oHplq6Z7gJKlvM FvwFwhWfCuMfEiZlALy2Ii NTm0zHlwC6JqIADrIrH6cO QgUGFyYWdyYXBoIEZvbnQ7 nSjbznKsi29ubDHvXYUzJA QyHgNwtRwbMRWhFSAMg8By dIdqUSE6nEr4cPzkXretSS Z6Wqy0OX5zdc20qph3uWoq KYNhahggCiM6TRfhCLCjhn llADw9DTgsKTJozWG2OZPk nJVeU6NpYOJyHD5desc1VB V0JZsiPZMfXuI2VJRjsTIc IAEpmIzjQTbpl072IKW6Oe VlHO8wR0Yso5J1eI6klHXm XQCkwTMaQiWlUCLebq1drE FlIDqxq2LtCZG6gwV8qPNv aLBfMCPvFD94Khvrj8ThSj blh8AvQ61goJD5TRqrv9lw KD3kZfZ7anGpOWqmo9dluS 3gNcH7IEfiQR0aKW9eNFFc oE6btqaqUCXtNpXoavtbVT DtgZrcbnIqVv0kcHkmBPE4 BTxxP8lfaN7eEuP3CTetV8 urlV8iLTc6GNxliEG3KKEy wY0jEO6dxobnl6lcTDufHW hoLBYtcjF1lyL2FKXztEVe W3EcmN5sTALhNI4dtomqb2 bzROK9HLtqCUGaJTV6TjMn QOKrn4Kdptw0VqCzd7FinX QaNWrmB65ip636ECCrfpDm F0suuWVlqfcsaADbsvjpQV luwvP3GKDcTUDdPXhtVVBs XGZzMjJcbGFuZzEwMzNcaG ljaFxmMVxkYmNoXGYxXGxv W4iiQuWnS9MsGOYdEjWbJE tcUCwjnIPwhQVhzPX3vY9r BP6qBJBwrHVwZ5BuZWJdma JykQIlBJV6yVXrgUFjSS7a JNbtbIAek3ire9IiK1eoqF xlsUW4LF6qJDZeAGBtILlf q2QkmR0hNnszvGQwbuodPC xmczIyXGxhbmcxMDMzXGhp Z3mwShXdDIAgtOxsSCcuv7 NoXGYxXGNmMlxmczIyXGx0 cmNoXHBhclxwYXJccGxhaW 5hJjVaFlIqBybhWE5kERGw R8tanXTzRGMuMALoG3onXe GjgK7idVkvCLuxLqSmUcIe SoXVz641sx6eAEQsgDYiaz VCbZOuyB2jOZujVJglKEvo yDAoUNpod1nzGJUgc9t2aR UfNTNnamHqv0bxGLszgwXs OZUzjJVntTBiMJOyl17wDV sjqGpbtUupRRLbi6GxhLgn p4HfJxLvGFpfd7YkR67beN JvbCBzbGlkZXMgcnVuIGFs t77ur9idDATyNbB3jXMjdM V9wUXyaYXow8KizRzdXCAt h3cxUDUewg1njsgluDXzw4 HheO4ovrhaMFeslMZookTz NJNed1w1iNFiWKGcWKYlNN tiuKm9PQSvi872zx4vxcW7 cXQyKXV3ZJgkTKHzXNWjhh UgZXZhbHVhdGVkXHBsYWlu XGYxXGZzMjJcbGFuZzEwMz NcaGljaFxmMVxkYmNoXGYx IMwnD6rxAqQuF4SnSEHkTe AnmMGtG1rdrEKrPCNgZRtp XGYxXGZzMjJcbGFuZzEwMz NcaGljaFxmMVxkYmNoXGYx GQdcX0umDsUrY3RsRCRyNx IgIFxwbGFpblxmMVxmczIy FRjlfclzQNEkTPfyE0saNt LqUATfbTgsLBfzr3QgIQZy BYFcFnpomjOaJIo9hvVwKV BhclxwbGFpblxmMVxmczIy ULrerkboEQRuPHjhR8buGc ZwWOIwhGduXTxnk7NxCDBb XGNmMlxmczIyIEltbXVub2 hpf5IcL2qxyPbeyKH9FWBt O8wjoTJkyYJ4BUF8oX8cPL dxmsHzEGLhd3ExCXQwAHYb MxL6aH6jYJD1LoKMrNsjYE BsYWluXGYxXGZzMjJcbGFu ZzEwMzNcaGljaFxmMVxkYm HyWVGtRCrkO2tpAdPdX6Sh WJXsKcTtvBcgFYbaGTq5Eq xwbGFpblxmMVxmczIyXGxh yczgXOYeEAmrB6klGhOmPC KwiNdnDVudo5CyJRNyFCWe MlxmczIyIHMgTWVkaWNhbC OEST74OWSwDYNjgNpjaF1c fCNZIWZjzoO8e0Q6EWpzXU NlDPo5WFaxnrFjYWJuyD1m FVYfYK2oOJn2muZtOBPhm4 IkDO1lPGGuaBPgAKM3CSQl h3YlO2Pue9BcTROqEXRovl 0ixxSdJfWEaOYlMHQmvd28 QITeJO9sS1lgBSYfYHAuuu JzyUNwl7OgFXGtiEW1xBEt TQ8YLgKXi30rCCItPORQcv BrELVnpInspZX5zeE1tX9j LiBUaGUgRkRBIGhhcyBkZX Qnht2hfeGqZLQhINBta3Dq yDFubQIdyiMgN6Heh5PyGI Crpq97OLcemSRtff66NV1k G9Kaj1RceO8jYPdiQNGkw2 MdfWJqvRAjLWXcj3FtV3rq tldfBVlhrKJeeS1yGZRsTX a7AWGbq3FiQZZip7AvZwFb fpMeHKVkHFKuFGPsrD48EX X2yPinjEnrslPhNA6dDHXl yvXuCBExZUPwfM8kQJdzoe WsHCGukeM2z7D2NZcxUCJb xbBtUjooNIG7bhYjksE1gF DxL0zklhuwOBkqIRQhy7Em vI5euUGDdDZpd9TfjUTiyH GNeKUbFV0bkqLqPY6wFGQ3 ODggKENMSUEtODgpIGFzIH C6YZwaQzauJYX6noYkGPCd s8TmDVczJ1jyG11yoPhqoY e4bMQkpQbdmEQvuMNeTRMb pfO9w8R0VNMxr1GcfvytDW BsYWluXGYyXGZzMjJcbGFu ZzEwMzNcaGljaFxmMlxkYm XhCWCpCQdyX3wxKxBrHyUr VttkESX7dK== [id number] 16:47:26 Test Item Value Reference Range Interpretation Comments Case Report (test code Surgical Pathology = 104) Report Case: [id number] Authorizing Provider: Nathaniel Dooley MD Collected: 02/26/2022 04:38 PM Ordering Location: [address] Received: 02/27/2022 07:57 AM Service Pathologist: Gene Carlton MD Specimen: Cervix DIAGNOSIS (test code = [id number] 3220) FuZzEwMzNcZnRuYmpcdWMx IHtccnRmMVxlcGljOTYwMl vcthWcGGPpzIAhY8Wqsgdr EKghSG7wWI8dwLywmRVzfY KsXGAdQsVen6wpx504lETm o6fgLXKOyaiwyAo7wJsmP7 7ju9Z3WxocJ02auGDqEXM6 TOSgLTZyjOGhBILmSWM5TR NbzPZwI6acCSOaMJ8ygfaw UWblJSwcUQWiwOG1PYAmgG HxQ9IgIANrPGidPNRimnv8 BkVsIq1zuTQdkZngGBmaPJ WrTAEuPWlxCLXfBcEaH6TH HsfRAPYHDOUIIABVDV8OZ1 x9WTHqdfb4SXVcIBETNVEO PsYXA0tIZQHFSpCYFYMSRB AjR3QcW7SOJP9YBOCmE2KU JTESXIDNQQ8VWVZyQCHmEE Tbk83gVB90VQzkVLM9a8mc dGYxXHNzdGUxODAwMFxhbn NpXGRlZmxhbmcxMDMzXGZ0 bmJqXHVjMVxkZWZmMHtcZm 9lhVXxwSncQvIqNUYwq3sk hxHOrfzpyCm6b9bsQOKsXh E5oDSqFOcvX0oznjBsvQQv MBIxQLh7vV19AANzsA6jrC EqSBygguGtGbY5PNkbCUOu XrP6IMVgwPSrSWNcI7mkWB QwXGdyZWVuMFxibHVlMCA7 lKwrr3K1nDWqiRAbkIzaLd CbPjBxOhOVq3WqJQm7lMxg M0HtRDToBpF9qPNzCYFuWN eyVQHzQLBhbzS5hV82GElw tlQ4iYVvp5Dnh10rx477yR 0lpRYpYYV5IAPxGZZppLPz FQFdLNT4PBDxcAMiQ0ahPZ TbDA1fsjdmGUihYIuoDDNo sOD0FIOylSBjW2WmWTZaBO vaYIOvond2ArKxZs3byQRp yHnzZGjhz6suu2jthAVaMt h4UQPmHyNiZpojYKtdd7Fp v0xjEWCypo7jNFB9pBAvnJ bir3Z4aRHyPPRxoPYcVTNi EJ0stEMcKGMziD0bzanfET BnYnJkcmhlYWRccGdicmRy Be5zfEulMVP1OBqjM4sqxV 7sDsE5TWwhU2vvbW6sTFc7 TSmaRRUknPD6zpN1YPXywO SrG5FagL5qYLOpPV8muwt1 g2prJSG5DNorOANjLqZ6jc T8TREzkQTgYZNwrLqaFEvn b458RIK9RyXbCIVpd6ZmX8 XzoPayB73muLrcA81eOEZa xWtufX1vtNjhvX9mBhBqKn LrZXqsvCcvAD1sLVNpL3jj cYHvWQKbIJDiT1uiTiUifU 4taIooFDsraeGuNMVfEfx0 DFPqzBXdKNFxXyb8ATOnKS FlO36vphftKHQ4eT6gb7xp u2QiXBrwCIN0MNFkd57mFE geccD4ZCtbSo72TMwqGZO8 VIjaGJG9eO== COMMENT (test code = q2nkuPZxWOGsmNR3PiCkHS 5244) Cgq7nfu5ZwgLUcdHQqHApi lWEbkmKdzn28uGB4zY82MN 3yGCIlYzY2HNJrnuP6Vph0 HHGgHQMtqROcU010c5sbj6 vwlaTiqVY9wJifVKDbyioh LwB4TKrcJPHfnatgJXn1WI wfJMAblWG2TLGrrDUeV0Oq UXQeCF4gmst3LPF1OZciUW OlTpM5POWodKHbIDMshLra ZMxkd929GFA1YpZuNSXjgh VvsIqeaC6lUkIfASUDgRIz iEO6yOQxkWqzEGcym5Meur slq2QsA8YvvdznDKmohMQk riFtuqRnn2SdTU3yFTwyVS N1nB1kDXSaz3syUZPqJ5Qa WF4nV0Ztk9rfPMRza4cqgh RzQFG4pTWaWQWcmkXwzrCv QTS9aXIggBWuxZUiwCRajS Asn9NeuSA8aiRdvdSwbBS3 OHWvg5EneK31UGHgg90vQV Bhcn0= CPT Code(s) (test code u4edfMMkHYAiiFW5OaAvGN = 3357) Tbt3zzo8RhiYNfyOSdNQer nNKgetPico46xFF0lU39XX 5dQAWtNlK1LTVjqvY7Dhh4 OXOuULQtlYYiI468r0sed1 kavxSsuXJ2oEzxMNKnxmao ZrC5RWwzUFHsqtorTQf6RQ hyCAIeqNX4JLEldAUfM0Ge XJZjHR5fgez2XUQ9TLpfUS MzCxW5LOSrnUViGEMnoAew LPsaf165VWL9BxTuUMLtia YfyHasxN3oEhMdKIH9QLDe NVxwYXJ9 CLINICAL HISTORY (test r5aocXUqOTTpzWQ5NfVgOM code = 3356) Ezm0mun7PxwDIhiPCvVRgt fDXiwjFgkv09kHF9cA40XO 5vRSXgZoB0KVJfbjV3Hjb0 OCEpUUUvmPCuB902j9omu4 yfnwAbiKK3kDllJYZzfnlr NsE7XPvaUYPwwvyrAJa8XF dgYQTbiXF4YUYqfBRfY0Dm UZQuKE1apej5IWN4QRrgXV SvRbC4HYOwyPYdDNIpxGdm KUyux451PPU2FbQnTQQutg IpoZderA8oQsKoHKStRAO2 Kx4hPL0eSH2ksFDgfinvfl YgdiTesoPcprHazeV9HOTr n8c2nBXUGAx4PO9mZUcVLQ KwouFlLeyvdQ9tdRyngUFr NP09xU5fbDYvc8VwlTQyAV rvyEzxhlBadsLoMHczlA1g pMioDP8hGcZ7VIybdeMmFU KbSJInzD8iIGPbe3jaazGz YmRvbWluYWwgcGFpbiwgU0 1IQJYuxXgcdLrcEIPyKT9x n3LiysStUSVhTQTpA4NeCK Ezd4XdJYJ7fvVcEDDlXHV8 dAU1w26tmRzxZUMkRQ2dUX KlRSesJBPqWQisYI0aTSCh mvCrY2SzSZ9gx9Tdc6w+b2 1zdP3cA9etL9sjMAI6 GROSS DESCRIPTION (test z7ehfWBmJQBefWXBLORqM1 code = [id number]) vlwrObXLUpjYRhQ3Mlonah JAdwVS2qCJ5myHqbwJNgtO PoHG0VLQAjBeHxMFOesRSo xeMpHsWpVLCibMCkaFZ6MZ LnET5veecsOTsdEPjwEGSl zcY8YXZhtFUcB5PwRPIxGV 4kymziCPJ6UGvloY5xneVZ XcwgWk7nvBEttCpaJzFtDq NoYXJzZXQwXGZuaWwgQXJp ROs7jV0DXhdxYTG6YLMJEm jnAYAqNE5Ou4qwDRFbyDBz GHT2CXfucXZlZOYuDQMmKC j8GPKeKDxbpHPgVV6hvVpn VkioxTksm3SjpESeAJcfMS CzYFNxCCzzUWQtIC4BSbGj EXB0DQo9DXVeJEw8BPj1MG 7LGmBuACLeCYT1KJW8EeTa GCv9IWbuMS2TVMC1KDT8VD zlRhB6ELU1AwLtFGNvYwIz XGYgQXJpYWwgXFxmbCBcXG 5tvZgqdMFsaeUIRvSFDNP1 aXguXHBhciANClxlcGljTm VzdERvYzEgDQpcbHRycGFy XGxpbjBccmluMCANClxsdH XpbTznphPnWCBtZ5PvamEl CZtcELBnyn4dgDqxQAfcGp JzMJMpv3f5pLW5sYJtbSP4 eRBqyUenXxWdJF6ukAYfMV 7pTWfvNQstcsZxf8KmDQ89 bWJlciBhbmQgImNlcnZpeC IgaXMgYSAwLjUgeCAwLjMg gMSzRhXyZ43bmGWqOLuuFO odp17feTX4jHUiqIJyPmVw L65uefBfMEZlqQynDQG4qN YwCQDln55sYVW1Ti7krCFc MKFbttI1q9LqRJnpUVGsPu zdEZAqKXvsfSTrSL4AC6ob rRHbUDJRkoA8pwcjXUaUCD UKSSQgJXNWUNvxtUtdkK5i KLixgH4aNR9VMHGyARrqSK IvuEGZKBO8TA3mCBofjUJy siqoBKLpN6CwW9ClugNywS EbPRJmesLhq4sfRWC8VYIn tAKvtQHwWrBhPxvxLOB0HI wth7lcIQN0NVVhkJHggJBd CIfgKxZmKgfoYTZzA2WvX3 FivbX9UPs1 MICROSCOPIC DESCRIPTION d7smmFKuAPNikTP8DqPuTX (test code = 3371) Alt6wek5CpdNQzlIRiTGvp qSQtpgPvfs04cUI7yI15IL 0rVKIkKiH6SAZlzzU0Ooi0 FBOfDYJsvPCmN021a1ysy6 hhywOgoBZ7aFrrLGIgespa NsJ7LPhcEBUiqjftJVi3EG huILPkyXB9KQQpsQCcO5Ka YHRnYP4adav2AJP0WLfoYK EaJiO2ZBMeqMXpLDYbsHfi SIejo648MFW1EhTdSOSnmh XdbDozlP5cIyJfNYICAEGg e4IlATUjWTQalx4= SPECIAL STUDIES (test s1zogFFgVILbi9zcJUOxuH code = 3376) FuZzEwMzNcZnRuYmpcdWMx OLcivlFuMFwrf9PeM4GkGk AwMFxhbnNpXGRlZmxhbmcx QWWsTUF8tbQzSYDsLHpoEX WfYLuiYl1zaDCfuDriJjNa YBNyk2chdfOLlzmtoZv2x5 ygYLKuMkF6rSXqBZppQ0vc jtWfnRHrI1SdgSLvmDk3r4 toSjWiRtW2mKIlWDfrK1oi epLoaUMyJPFmJSf7gZ38EO XfgR7ucZHpGXgqgmYwJyY3 UQicODYmNhH8EZZgyOSeVV LyA2ecLSWxQBgtFUXnFYtw iGAaNEC1jWoeq3F2tGLuvQ NywUpfKoXnVlEyOwMMw2Lw PEj4aBgoN0ZvJGWlFiV5rK QgUGFyYWdyYXBoIEZvbnQ7 pHetteCef27uhFXpSOEnMM GxSgIikEmoKHSaQVRMd1Ng aNcqGRN5cKy2aLquMqdwRP T5Why3FE7tju86xov9cUbv OKZnuxruOoY0IKmyRXEgdi frCEp0CPzbUWEutSD1HTZj tFUvW1SfSKHyKY8ivbv4JQ C9OQqgYLFxOmO3JEJwrZRj BILogGgnAOzxt952XIM7It VdFB6rK3Sby9Q4pE9wsRPn JBYabMLiTcBqJILnzk7ueH PrRCruf3VgEUX7cpN7fCFm bPJiDJGyVU47Cqbax7CgJu ovm1FbU77guHN4PHmmg5sp BJ1gEyC3nqKwQAizt3cbqO 9gEvG1WLqkIX3mVJ7hYQGz zH9ybvwqKULvDmNsmzahZH NikJgjsaWkNi6yiJlzPER6 YAnkD4kzuO2zKaD2FJnlD2 lmoM2gZIf9OZzboKV3JWKy fP8dSL8vgnsus5gxRAifFM nkGGJmefN5yaJ2EMBkcGDm O7EilO9nDMOpSP6bjsuax0 beCYB7IMaaNXOxNTP7JrKk CMGjd2Ijeos4CuEpm8PbhX LtXKivA34on211VAPgmwPy V0ilzXRtizlnhHGzyzylKU cbkrG5QEVmRKDjNOvkNGFv XGZzMjJcbGFuZzEwMzNcaG ljaFxmMVxkYmNoXGYxXGxv S0uvIdUtT1VdGJOfVnEvUW vdJCzwaZInnEDvwXA4oM0i AU5eWELkkFKcT8LuFKBhgr KijKSyHUQ4fNOwyMXsSL4h SKtqaEKyb0tfx5YyI8xdpG pklKC6IV7qEGOyTNHeUAmj y3SzuK7tBloccTQmxyghDO xmczIyXGxhbmcxMDMzXGhp V9uaBjDqZZCuiGxmFBtob7 NoXGYxXGNmMlxmczIyXGx0 cmNoXHBhclxwYXJccGxhaW 0aFoIjGpWmJylhEJ3oBKYj G2aczILbYZTfWGYfW8bzBy XzqE9vbJgpENpkYjRvOfNy RvLVp841uq2dJZBjqMUupa FIxQBknB6qDMobKBlsWAso lEEgNBdlf3frVFWxi7y6jI BxSYSiqzXaw7bnRJmfacAi KSBnxFJmpVWdYRXlj61qRD rkmHhyrIgrFZHsm7RnlQfj a1XbYkHlEKtik8SxI01dqW JvbCBzbGlkZXMgcnVuIGFs l36do0siZTIyIyG0lYPhpN P9nVQfzPMqz9NzsQsnXYSs l0muUFTghr5ncittoPRbr8 LwcL6ngjeqSNbnjLDzrwUe CCZgo1e7oSRuKENjJRMrVS bhjCv4FQCuy651bg4idvQ1 iTWiLQK1TIboOPDwUNFrkh UgZXZhbHVhdGVkXHBsYWlu XGYxXGZzMjJcbGFuZzEwMz NcaGljaFxmMVxkYmNoXGYx MOwqR9tnKlNsC7EgHHPpOm HvsHEmI6kbwZQyBCRsHWcc XGYxXGZzMjJcbGFuZzEwMz NcaGljaFxmMVxkYmNoXGYx OOqnF2vbByLxI7LuTXDyVv IgIFxwbGFpblxmMVxmczIy NZircvtaPKNpPLcdP6vfOb GlCHGebUtfVKexe5VdNKTf FLZwLaphxoFoLXh2uaRhRL BhclxwbGFpblxmMVxmczIy SLhpgqzeXZUsEWvxQ5hhQo TeAUPrhWkoAIjqp7ZeXNPa XGNmMlxmczIyIEltbXVub2 fuv5QqZ1tdwTbhcHP9VUSf V5yffBXoaIZ1KZZ9oN7wPN vvfpGsTQZod0QuVYGdFRSx ImQ2iA8jGUI1PiYWyPubBF BsYWluXGYxXGZzMjJcbGFu ZzEwMzNcaGljaFxmMVxkYm HgXBAmHDtyJ1htLmKyJ3Ci HYHfWqZioQkuIGpvNRm8Zu xwbGFpblxmMVxmczIyXGxh ohogICDlDTvlH1qpPbNnQV DtwFddLJghw8AmRLLzQMQo MlxmczIyIHMgTWVkaWNhbC OXWD52UENkBJJfuSywkW4k nHEURYWmmiU3d9O4PYtwFN ToGRw2ICpojqVvBGXiwK2c CCOaER5oDBx5pnJjTOApa6 YaWK8eDGZpgZAwBYD7OSEp z4VlJ9Uqm4TeJNPtDYQzpg 5xumNeMnVQlLLzFWKouy61 DUSdAT3vM4xlPQGhWCRupv HqtQKzt1KxBDMgjMQ2zMJm EB0OLfKRg19zRGBnSJDReh OeHCPkeJpqoQP5jmX9qW1t LiBUaGUgRkRBIGhhcyBkZX Xnaj7aevMeUPRcYMVyx1Gm fVCreTSjyoKyC0Ojx8SaGV Aerd04LErsiVWywk77GB1w J0Eap6DorB7hHUgvYJVtw9 IruJNmjRZxELJxa6BfT2rm hjrhZAovpMEfhQ2cAYYxRI t1EXNbr8CwDKLcl3WePvQr wkTuYCVwHOFzBFCgvS46LK A2cYkjjLwxnqFiMQ9rGYVi szIyHMPpZUOjlJ7kRSadyo NzGHZkmsD1z5B3OIaqDGRf roXzUetuPME4zhOyajG2dU NhG4rfejubNTnoCFVyx4Cf tT1hcGEGyZPip5KupCIelD NCqXYwEC6joiTnXA2uGYY2 ODggKENMSUEtODgpIGFzIH Y9KRvtWgnuBCL3mlDqMIRz x2IrJMsnS7cjY68klEerdD e1yRVlrHuvvVYidBOiLENz jwR4l9K1MRVuy4QhgqlgJM BsYWluXGYyXGZzMjJcbGFu ZzEwMzNcaGljaFxmMlxkYm YwGGCaRPcrD1gwBrNrMyPy GjqxGWX0cL== [id number] 16:47:26 Test Item Value Reference Range Interpretation Comments Case Report (test code Surgical Pathology = 104) Report Case: [id number] Authorizing Provider: Nathaniel Dooley MD Collected: 02/26/2022 04:38 PM Ordering Location: [address] Received: 02/27/2022 07:57 AM Service Pathologist: Gene Carlton MD Specimen: Cervix DIAGNOSIS (test code = [id number] 3220) FuZzEwMzNcZnRuYmpcdWMx IHtccnRmMVxlcGljOTYwMl qeamOpNKJghJCtP0Qrmaar HYxtMV8qUR7czVgxvZXrtL NlURIjBhWpd1rsn505tHBp z1rtHHKGeqjgwZe7eVmcK6 9hq9D8YjzuD79ctIUhXBW1 EANyEQRmyBQzNRDwAQO3ES MflIHlA6fcKVTyWN9uhrsr NVsdUWzjWIMhhDL8CKOpwU HcK1ZfRKVlTEixHASsxdu7 HpWrXn9jqWVlxIanHWruRE FaRXYtDFnxGTUuLlJrA0MB NbzMWQBELBKNTKXQAX7WW9 p7FPYonox5WWFfQJEJZNZX YgDDL9xOCTVFFyPLGEMNBC AxJ1KwQ1ETII3HQADuC4KA VCEEWOFLZW5SMSCjSECwCX Wzk41oZD23XOfjOVZ4o8lw dGYxXHNzdGUxODAwMFxhbn NpXGRlZmxhbmcxMDMzXGZ0 bmJqXHVjMVxkZWZmMHtcZm 2afFGdrHlxUoSaNXBpx4dp gcQPitkdxGu3l9keMDXcSn J7zADyTMjgC9viobEaySVa QFGdMXv7aP41YOTpfY6nlY TqKImaotIfMnH2PHdhQHIf UcB4CABjvRKaZHQhF2qyKR QwXGdyZWVuMFxibHVlMCA7 fGfrx1W3zRJbaPQpfWoxTi RiCyUdObPTm5HtVMf9mNmn F8KjOWNmFzI5jOExFJTjSV odEJHhOVEazrW3wR63JCdc kjD3cMRic6Kwl51cc030rH 5zbUIuCRC1ZUEsPAHywIBm UNRbKWN4BSIrhJSoV8wjJL JyWL2cnrewUVutICgaUCAy zGR9NYLrnTGmL0RgNOHzHL kwNZBwjjo3IvSaBe1ndTRu fIywVJnov2wmh8bubZCuVr f7KMSxDrJiEjzwDDsrh2Eb z7nmWRZwym5tBRK3dDEmaW htf5J3uSTgSRLtiTJuMIHn RZ4zgCYmIDDnpJ8bkmrpAB BnYnJkcmhlYWRccGdicmRy Rz4feMoiNWE2NSvbQ7huaQ 7rEuJ6AQygL3kbbE1qWDd9 PYimALAmpHS7llA2LUXqeL KzQ5PqnP2dLHCrHW5xupt9 i3ejPVB3QNrcNROoMcQ0lt I3IFVezYRdDOAfcBaiPPlk v306MWG3QpNeMOLiw5KnH9 VuoCxqA81cnQspV16rTCYd gFrycS4feHxoqL7bBySbBj UoYZjfeJuyCO5nJMDxP7kq aNFsAZDjAOEzG6hnAfDrlF 6wvZocOQmdvrOiURCfOkq9 ZZOvvVHiQIYuFhh1YEDxXK QrX00apedrCUQ1kQ9jz9yt f5SpLEnaWIG3GLOwx85kZY blhzZ1IJmcUe67ENjyQZY6 DBdxUED6nH== COMMENT (test code = h5wgdVAlCIOdbEU1WqNwKW 3351) Uwx4ztt7KfdAGykQUnUFfc wLBcvhPrva68uWK7pO52KZ 3cMTPmLvL7NLXthqA7Kkd8 HTAcXBXnxOAbI264u6rdg9 rbivLbwXG1kQsiRCUqdcvz DlR7GMroORSccvwgCRb9WM dvXFJndCO7CUIwjAYfZ7Bv ATQgPY4yeyj0GED5ZWxhKI CyPbN9BDKjpKWjLSVakPeb UBqfz937XXU2HgVhQSOslj LgvMmqwL9tLkKsRWPBnJVg xRK7zUPcpRqiCYrae4Cean ohx6GoN1GykyvzTGxgxZZw tmUiutEth0FgBL1vSDnlHU V1xM8bWQWve6wcGFPqW0Us GK5yS3His2msAEJut1tkrx FtAJD5gBPyRVTybhOqauNr PZA0vXFkiEQsuSXtyDVhsP Pkj7NzbZM7apOqveWkaHF9 TSZzi5LrfE69VYHng60jYO Bhcn0= CPT Code(s) (test code o6wwaMUmUXMeyDW8AqPfSY = 335) Qve5evf6BhmWUqhJIgUWcp xQAjjyVizt39iQZ4oC37MR 0aFIOqAeA3USHfjsM7Dqd5 LIToILZqbOPgU510f7mov9 wsclZsuSU8oZiuTHRgdsuw BlD5PFfdJKBvtvrsGIx7DW ydUAYzxTJ2HPWbuYNeI5Kl PXGyVQ0scph7MPJ0VLhbNP LbEjJ8MBHigIUiNWIitSgp NJgqy777BOZ4WxJuBQAwlb BtrBrmwH7hDkDuVOX8YLSb NVxwYXJ9 CLINICAL HISTORY (test q1yebVOvAQJeeXQ7SxXzWM code = 3356) Mmr6yei9SwoRFprJElRQmc zDMvlfJniz67bVM9qT88HB 5hYEZbMdS9TRNatcF8Hnm9 AGGmGAQxxILoI859f9xyw2 kwlhQwsCX8mYgwBTQsdwzz YlS8GQroOHJmxgneADv5UK xuRFJmnPS7AHUvgCRoH8Dn PPTmIR9iecq6BYV2ERgkBH AbArN1QLGgeKPbZRIqiVey OBffi829QGJ2RkZzGNXkvj VilZvmyU4zYmJcZCJrPZW7 Wg1pIR1nZQ3hvRKtpgreqa KgyoPinpCjarVhzgJ5UDKn j2j3uABMQTl7OZ9sDFpNZR ObwmHuAnbujR7zfSqldQVc RW57pV3bxLJdj3VbeQXiEU oeqTxrwzIzbrZpLZgsrG4r aTxvAD0rHmW7HGmzlrJzYN RhJNMwgH1wJQIao8tvqfWq YmRvbWluYWwgcGFpbiwgU0 0WRQOcsAcqdOsiOVWqTT4u r7WgckObHTTmUGVuW5DlGF Eov8GlOXX8akDcZQMwNOE1 tSM3s09htMcxWHPrYX6dRR XrSWdlWASlVTgiEH4zSGUe cmXxV4GzUY0si1Lsw1u+b2 1bxX3oH1nvH6hdMPM4 GROSS DESCRIPTION (test j5txcPOsBILeqSDXZQEkZ7 code = [id number]) alrpFwCDKpyZDaI1Xeybqy RDjqXT8iJU8buCsnjPIqzF BaQS3HVLYhVrKpAYPyxGFh wcAlPdNxIHDfiYNjnTY7OG GsLW0rbdtcEHzuRXxdARWm pvB2RXVpvGQrZ1DmFECeFX 1ejtjqTFB3XJginD2ytoBW BarmTa9irXMclErdNtUuYk NoYXJzZXQwXGZuaWwgQXJp VQo8sT6BPwagHBO7XEQJBa bqMDEhZY2Mk3nvEVMovJGt WGI7BPmjaACgJTTtTGKbNF m2YJAjZHdovSTaGH9yfJwu EetrtLefy0NqoMFwRGlbNU VbNDZxOGuwIQSuOH5RZjGr WUH9SHs8KIRfDAl4PKc2TB 9PBsYmJKReJYR9ZJH9NxXh ENo2ZCqtGY3WQKW7TYM6ZH yqPyV6QPH5VoEwLKQdYcWb XGYgQXJpYWwgXFxmbCBcXG 2guRkjfVDnhtWFJoVINQL5 aXguXHBhciANClxlcGljTm VzdERvYzEgDQpcbHRycGFy XGxpbjBccmluMCANClxsdH CzdFhvcrGfFRRtS2PgrqEb DBrhLBXons8piLivXBtzAf RgCARds3n8hMM6oFAcoPA6 fYUmaAzgTiIsQI5xrCIpLY 8yTWefTUydfvDvw9NyBD63 bWJlciBhbmQgImNlcnZpeC IgaXMgYSAwLjUgeCAwLjMg mSTvBzTsH71nzBWyZPfkHD hst57wtZV6zUOdhHShEgWh M30myoDvFTHmgWvtQOL7bI QfORCfl17nZIB9Oj5afPGh ECRnygT5f9SdNQhmDWNqIw roNEFvQZhyqBUtJT9TY8bn rJPmEGKFukQ6ewlfIXtDQM QJQZRbTIAOTIesyOpevG8v ACnjkJ1rNL7HYVNwHUirTY BlfTPPQAJ6CJ6qEZcljDKc zfwcXBHrY8HtW1OoqyUyeL VkEJSpjwEte9kaMUL7HCXd fABkfLTqZmTaTiqsRPO7HQ uuh9jqHGY5WVMueQKooTYb LQorHnIaQjkkGOMyM7PpZ5 HqdxH7ZHc9 MICROSCOPIC DESCRIPTION x0nrtAMdWSIawSY9PhHtGG (test code = 3371) Sbq7ohe6WfwCToeXGcJCqs yKHqgvGzus15gOG0zJ23XD 2eBQKkBpJ5OOErmmU9Qmk9 KNVxRWEypFVjI848h7xdx6 udsnCwnKU9fMfeQOSkqqbj ScM7QZysJZCvqhmkWTv3IW tfDZPvcCP4ZIXycUDgN8Tk ZAGbYN1yzbs6SIR6HOdkHA UhVjV3VSTbaKYaQNIyeFhv MEdxi647LQN4PbWrDQEwlg HlaFgzkV3pNgYmFTGKZJUc p6EyOEYmNILkhz1= SPECIAL STUDIES (test z5xkqFKuYUQqk5rtTUQuyV code = 3376) FuZzEwMzNcZnRuYmpcdWMx SNncdsQpWWuyw3PmC4BrQt AwMFxhbnNpXGRlZmxhbmcx AICrIGH4plHlXTGvUQjgMG VwWTjlOm9gqDSdiHcdLnBq GNWjc3qemgOFgkrewWl2d4 usYDObNbV5pVJyREjkH4ob ycRxtIDlN4QbbAAxlQq5c1 kiRbSvOyX8bQRfCPziY8he maDtvMMbMPLfFCx5gG96UP NeiP7jhHCdSIfqgkLyNgJ6 OAojRPXqZmO1IUTmzNJhIH EiE5fcQZMnKYhiYSXfTTaz gIMeSGJ7vAbkb6X6xRIlfW WslIxwKhRiRsBaQkRUg9Ij ZTc7tXlxE0WpEOWyMnH6vB QgUGFyYWdyYXBoIEZvbnQ7 pHeweuWts61bvVTmRGCxLJ UdImQmoHinREZhDMNLg2Tm pQdpEOG1yYg0pRsrJlsbBZ A0Yuk9SK0kvp56wji1zQcw GTFcbeeeAmC5ISfcEYSiyk ssOVz6UUxqUSUkuSB5UUJp aVNpP6XxAPXxZM8sywr1RC E1BAjaTHSkSvV3EXBqzDGx HDWmiPysKNnfu616SCB2Dd UeIE2cS5Wij4D6sR2qcTRd JVXgtKJcEzWpADFtqr9ruO AoUPkjx1GaRIW8ziD8cMGq jOHuPLAiVQ73Hgrbf8VeQi tgg8AaM73vjDX6WSqik1pc KM3pSbA9vrArIGboq6ssyN 0dWcQ3QUqpVD6zDN9dJGNt rO7ktkfiWDVsVoUtxegsSN PqlVqwldDvTe2fpLlwSVM5 ITztN3fueI2lXzY3FPubH3 qxbB7hASp5WKuomGA6WJCa yR7tHN1dvsomm5lzSIwuNS cnLZHrtwP6xmE5OIXhkWBw R3VhdV9dKUHtUV6ydirec6 ulCOA4CShgKZUzHAW9KyAl TFKhe8Epptg9GyFoq3LacV HbLVwwM43st855VBBrwcRx E2oqoDMaribinFCmwgogTY bljcA4PMCoUJXfWEsoMMBa XGZzMjJcbGFuZzEwMzNcaG ljaFxmMVxkYmNoXGYxXGxv Z2fhHoBvL3JrPPTdQlUfAJ tpDNkahYBfgBWquMQ9iF5t VQ0zFSQhwQDxL6IuTEZiym ExmDIvIAQ1aXEjsXDzTK1r IOxesQVev9nuy4OjJ0ctrQ qqvVE0BS8nALYvMVHxEPqz q0BsoJ0eGwlmhHCvdzwwFM xmczIyXGxhbmcxMDMzXGhp F4nnBiHwSDDegHmoBTpvj7 NoXGYxXGNmMlxmczIyXGx0 cmNoXHBhclxwYXJccGxhaW 9lMvHkEaKiWzowQZ2tJIKl W0mbqITtHHFgJWDjE1nvWk GvlR6akOsnVBmqKdSkGbJv FnDEd154cv7xBFFmnMIbuu KDlMMiqY4iLCnzPMsdDStk vGBeATawq4mwBMQtl5q3aQ UzXUNqxoDqy5teDLbxsiPd CNGvoZCnmDAxKHEnx35iNG sowFugbTipIVKxn2IsnLbh w9GbSyVeOTgkf9HaQ00ooY JvbCBzbGlkZXMgcnVuIGFs c05yx3izIHDlJwC8jQFhlG R3zZWjzKShf2VvvLqtKRXd h7ckSMIklv5uwaiakLQto9 YvgN6mndjpXHqirVKgedNt AMSem3o8dWUwNCLfZCXwYQ hckPs3LVAmv811gw3tjlJ6 gYNiKPC4IUucGIMhQNGvbz UgZXZhbHVhdGVkXHBsYWlu XGYxXGZzMjJcbGFuZzEwMz NcaGljaFxmMVxkYmNoXGYx FWwmW0fpWmUdB9EyMENnNo QprIYzC7tjeIGtGEZjQHfr XGYxXGZzMjJcbGFuZzEwMz NcaGljaFxmMVxkYmNoXGYx SMwpO9epGqOmI9GzWRXwBo IgIFxwbGFpblxmMVxmczIy ESouqjjbTIVrTVykO3qxDh HlBBCtyVdxRWajm1EfAUPp ERIzLtauooRkQPm4bfFxGP BhclxwbGFpblxmMVxmczIy FUysyluiGZGcRHcbH0dkVd EhRGDqqVblXEbnj4TiKUSp XGNmMlxmczIyIEltbXVub2 ppv1TdJ1wwbXkppYX5NTSp W1kbzVApsLC5KCF1aI6tBH gzrdYfEXSuh0CtMAEtLOVh SaY6aN2zAAJ7XtVVaTuwLY BsYWluXGYxXGZzMjJcbGFu ZzEwMzNcaGljaFxmMVxkYm PnPFHsBTlvA6hgVjYyU5Ts VKPpDaHvtPhdQDsdLIw8Zo xwbGFpblxmMVxmczIyXGxh ttunPUTmUJkeH3cwMzAqQH PjnIetXOdka3XpAXRvZXCo MlxmczIyIHMgTWVkaWNhbC TXLP25VWOeKEHkiUekwP0l tZHXSDXikrA5x9B6RXxqSK GkIAq0YLdcmqXhDFYlaN8t XKPjCT3kRHd8moStRYWob7 DgVS0eAXSenSZsRNW4FAMs n6VdP1Wka0SvHLZtRDXjrs 4cosDoZmPCtKTkHYHlra26 GRXvBR5nJ4ivOGSfMFNnmv BusSQpo7OqUUOxwII4cVHl GP8UWxPPy21mEDNfBBZWwx MxAZIavGmpjAS2qmG7rK1d LiBUaGUgRkRBIGhhcyBkZX Ukmn3zcaGpQKHiZGUba6Wn qSDzpRGfpeGgD7Nxz1ZcFL Cdss98GMnnlJWesf67KT3j U9Afc8KpuS3sMWhfCXVpu8 MrsKOstSYrZFFqh3EjL6kw ugfhAImypRXkgR9hNBDyCX e2NGFba5OqRYIfj4ObJjAr deTiEVNsIVZwCGLhwB93ID L0aCfxoJelleRoVB5wRUIe xmQqHUKwBZWswE8yGXvhpd WhIHFgseG3j9I3FQuuDHPs moCpHmunHWR5rwGjfwA8iZ BmR7pcjsxxNJdjRHPch0Cv wH2jwKVUkZDen9QewJOqlC BAjWApZJ6ufeLwOX3oXMR4 ODggKENMSUEtODgpIGFzIH N0FRjzIkknECI6knAzHLDe i4HpUBdfP9mxW92vzWfjrB x3uHZypLbqjQSupLSzIELo rmM0f3W6XUXhd6SuekirXH BsYWluXGYyXGZzMjJcbGFu ZzEwMzNcaGljaFxmMlxkYm WzFILvSDfuG9dqYrQhIyVu FznsCJS1sI== [id number] 16:47:26 Test Item Value Reference Range Interpretation Comments Case Report (test code Surgical Pathology = 104) Report Case: [id number] Authorizing Provider: Nathaniel Dooley MD Collected: 02/26/2022 04:38 PM Ordering Location: [address] Received: 02/27/2022 07:57 AM Service Pathologist: Gene Carlton MD Specimen: Cervix DIAGNOSIS (test code = i9mrnZPjOZXia9aeIUPsrJ 3220) FuZzEwMzNcZnRuYmpcdWMx IHtccnRmMVxlcGljOTYwMl mmkeEbBYSxqIVhM6Ihveqr KDkyCT8fTD5auEhbkICxuK KgEGZiJvHwl3mje099hOOo i6ngCOBRcarycBm4yHmbS5 5yg0S8AjgaS45bbEXfUJQ1 YZEcSYZmcAMsQFYyOTP7KG ZkxYJkR5raHEZpCQ5sbqyx HYvdYPzfEJFweKW8BZFucX QzO6FoIRBlQYmuEEMablk3 VlUtUc3loVRmhFyuUUskRG QpVPXbLLfjHQJqEoLkA3YY QlkGUNSUOFKHERKZIJ2TV1 k4IOKiaer7HXSoYYIULIPA XaNBC4tKXIIJEnRJMZARWH SuG7ViZ9MMTG3RADTuG8WJ HHWIWDOWJH5VJVFkUPTvUH Yzl29mWP25UHodZJD9r2nu dGYxXHNzdGUxODAwMFxhbn NpXGRlZmxhbmcxMDMzXGZ0 bmJqXHVjMVxkZWZmMHtcZm 6oyGPxlKqmXbIbDNBws2dr ugNOpfgfhDe7u0ymDZYePu I2qKAuDZsnT3sqjbDdwNWx EJLiGPt5fK23ESIzzB3qnR AwMNugexOsHmW3XMuqSNTu HcD1INGopTMeXQUuA6fqFX QwXGdyZWVuMFxibHVlMCA7 qOyoo7N8jUQcvLSgzPhuVl EoObPeGpLPi3HuBFw2yUob I0OkOZZyKfK3kOAdWNYrJI pnKVQnWAAoqgI2kF32LMel qnN6hUTns3Snt82qf678yU 2wqUMwXVA5PWFhRSSlkGUc PWAlBQD1DXWoqUEwI3bmYB AvLG6jprwxUVruICwmGYNm bIE1IWCzrAHsX3RmVTRgNE dsVOIanwy8GeGlZt3baSYa xUbkAXzcz0uxt5zthUUjXm e7LBPiLaKbFcgcDFgyk4Hc x5tqNJMhaa5oUXZ5iYJhsC iht6A7kBXaAJNbpJHeGHZd MB7kbNAoKISczH4sqlloIP BnYnJkcmhlYWRccGdicmRy Yp7ygEwnCPU6BJraJ6sqbD 8dFeM2INnoZ1xmuT9dEHw1 RBhgENHpnUJ4ynS1XYIeyN PfK1DycD8lNNJtGG3yamx5 o6wbCAY8ZOjsYGOvDvZ3pe I2RPJvsGPmCSVqtVlrPMql z041DIO5GgMjVAKie6UwS9 OvkTvvY66ntCzxT57xPDMr lUyqlJ0xaBnkwM4cJcCzTh TeDQqqvNgwHD8rADPbK5mn zUGbPASlQHYmC8hbNsNssJ 4btGgfYPqfpgMyZVEvJjs2 QKQvnIFcXDVkYjj3EOYxKV JtC25jikxmXMT1qU6pu8qg k2RbKZtqRDP7DOErn51bBJ keqeP1PGjmBe05LMviEDZ8 NGfuYTC5eN== COMMENT (test code = d9xvxIZsXFBabGS3GyVnZQ 8905) Yzx6qqf0GhcVGlsMGqAUwe oEShslCbje42kQJ3jM48BK 3yJKCdHbX1LQSzqyV8Xzz7 FXUgGLXklCTlZ469q1rfx4 ahexVxwMI3jYqcJHBrennd GvM0YFhzJCXawusnVMp4KS wgWAXfdUV5QRPhkOGhG5Gg BRJkJR2ztep5JHH3LBttBY UwViA7KHBhaYBqSPCedWqe HPlrm697ETP6UaWvLWPooj RppNtcwX5wNnVlKALWjYBo kAW0hCXofQjbOEmcf8Fbhq jla7IwH9KbgwzkJKybuQRv olOiiiJem7GrSH8rECcwVD F3eU5sJYYdb6fjVFIfO5Ux WD5kV8Ypp5obGIAxf7dwga RlBDH4iNBcINTcdnPvgyMn LBH7wMOncTUwrEZesXXuqX Vtl1VvlSU1ypZqduHxbVL5 ZBSth3HyeX13UUBmu41uUV Bhcn0= CPT Code(s) (test code x0meoMXzWWNwlJN0LfYpAM = 3357) Duh0mmy0KnsOSznFJvZNbb oBFppsUwko99zGF3jH13DO 2vZYKmBaI7NBZjptC1Xsh7 BYJnIPRomFFtF806u5ghf8 bxkzLwlGR5pUbeGBMbqppq QkE9XHrzMEOejrywUJi6XQ izGVCoiFH4RKAovIKtO3Mv OLAkDN4hvgf5XBG3AFbvGZ EcViR9GCBeqRLxSXKmpLba KYnbp404TTM8KgFvWJWbxj PmcBlsiD4fWuDvEUX7ZLNo NVxwYXJ9 CLINICAL HISTORY (test b2zykPRaCMOzbJD8ZiUcRM code = 3356) Ife8tfb8EjfHBqfPXgYUdm eFNryfXotd61bRK2lZ34HK 8eLRBbPvM9YQFzhwW5Zug5 JDCoLPHojHUkS731e4snk7 zbgeRntGW5aIwuMXGsxsjf TcZ5UMzwACLxnuoxYKi9WY onUGPkdYU8JMQnwDUrX9Jj TCUcAT1joma2OPB9BOftZT YkIhK2CPTmpFNrWVUokWrf CXhcf626WZW1VrFhYAUxpe FrfEbrrO1jTgLtJEXwGVA1 Yk5gUJ8hIW7rzLAowldroh ElieRznkOiyaNiskQ9ULAs y9k4pMIKCDg5XV9vLGmDKR TshnApWbdtdF4ijRkixEGd DW29xY2uwXTwt1BqwBZyPG diyXzillPopoDzKAchjI1j wHxiZL4hUuT2CDafzyMdNM KtAQFtgC5bKYLqr1aqagMg YmRvbWluYWwgcGFpbiwgU0 4AFSMtoFxptCsaUWEhYO8x k8YfwoPsPEVeUTMzN9ZkKV Brd0VgIJT2sxEiBBCxFRD7 cKZ7j87xrYzuCYYdRM0zLT WvPTbwGTYqHWkoCI2nHOGb pfLfW3PbBA1go1Okt9a+b2 7eeR2eO0uoE5hwEFZ0 GROSS DESCRIPTION (test l9ikbFWcZDYozNDIILHzT0 code = 4177855890) xishKnBBKsgPHmD5Ufwvrr MQpjOG5qKC8gmDswjTXxmE ZfSQ2BZIUlDfAaRHDdcZGz xoRmAdQqSTWuoBWaaUG7VL FxTM9rnthuVZdeGIzjUHSz mwD1OTTtjJFgZ8BjADXsDB 7woidgGYC6NRydiJ0ccxMC QfbbAs9shOAjsSpnGqSvKg NoYXJzZXQwXGZuaWwgQXJp SCt8qV6UKhrsUSZ8POCVEh lnFFSkGG6Jx8ntVPRvwHDw JXI2MCdmlRPwTLFyVDJaFR t7LEAyMGzguMRvPV2tpWfm BiyrqXtsk4AvkTJvZMggEQ OvPCQjCTqrQRUkNT6ELaZk JIL7ADd0BBIeOXt7NLv6VK 6HQcTbYBIoRKR5UCW8ZzSy KAu5EGelOI3GQOZ4KJQ3CS igKrR8KXG8IyKhIDRfWsJk XGYgQXJpYWwgXFxmbCBcXG 5obUyasDAxsiFUJfRRGWV1 aXguXHBhciANClxlcGljTm VzdERvYzEgDQpcbHRycGFy XGxpbjBccmluMCANClxsdH KroCrjiwKzZKSyH9YjcoUs AKtdZQNswe7qvHqiXKkxBy UiMDOco9x1qNH3kUGivLS7 jAGiuKrcUwNmKN1rlIOcFU 3uDMvaYGqikjIdq5JkAA89 bWJlciBhbmQgImNlcnZpeC IgaXMgYSAwLjUgeCAwLjMg zNEkClYxL60xzTYjNFdlSH evw71egHT0lATlrCOnQbGk U87wkqDfFWYxyXntFOC9iY LcIGCdv04aIXC5Pb2wdPNa CBRibeO7b5PySMncBHOpXq thOGBxAQhdsVNkUV3MT8im jEMdYBCFxvP8oxrrSReFNN DFTAHkNGMCUHfxcUvkxG2d VClbzX9tGR9UTKDaRVqtBV NrlXIFHBM0VP9jFBaswQAk voejRMQwE4EnC1GdvwUzvL RnUKQxjbQcq9ujSJK0FSFi uBVwlOOmOjHtRnikDDV2LL uxj5zoBRV6FAAwnMGifITy JSoxAzQoMiykEEBgT8UoE0 PyrbQ2IRq4 MICROSCOPIC DESCRIPTION s4eqyJOsNMQglJT2UwRaVW (test code = 3371) Jkn0azl3MozMOyeKBiVQro bOPtheRobx22iMD5zS39WP 2yEDFwJoT8MDRnksO4Zzw3 JLNqUTAmoDRuS684d6dhu7 tohkMwuUX7xFpmFVDdbbfc JlP4CKkwPGJushoyTDq0VW wmROYvaCI3ZUKrnYWcF2Sx RNHsDR2mxdf8YLD1AEyjHJ EhElB5TBTsoXRvLRQmjQsk UNrhf494IRK5RpZrOXMxhf FlyPucqF2gNzGqCRWFFAEh t9VlIUBgXVMcoq0= SPECIAL STUDIES (test k3glfBVtXXMim4phRIXjvZ code = 3376) FuZzEwMzNcZnRuYmpcdWMx JOamepWdVFyeo6ApM6IzKa AwMFxhbnNpXGRlZmxhbmcx NNJyLBU8bhWvZBNiKXglEH OtEVbtWc9viDRceCetXdJi YLYcy0wkxbLJhmwltDf1p9 fgTMCcOlN6rEJhSNccL7pk vvKkgCHsG9HllIByrXv5v4 wcFvNcQiW7bXSdVOkeP5iq kjDxfSRyXPFqRNm6iV74JI BwqY1bzQQiTRrwcmAoFxN0 MFebRQNwCpM3GBZbyZAvLH YvR0lkNSTuHKydLJXjEVba dXCfMYS4dLafa6W1hTMfqW BzqSpaPsDxQnPsFyDUw3Wo FQn1rPloN6FhRPHnXqQ9sI QgUGFyYWdyYXBoIEZvbnQ7 wNzurlVle97uqQWvLBOgIQ FbKoUhjPuhLLZxCKHZs3Al gVywOQU5cGn4uQcoQsaaEX Q6Ukp3JO0cbp13cnu8yRmp IDGrcrsxCeW5YRpbJPAans iaAEa8YXeeWLZggBJ9TBKh uHBbF4BxDYXrUK7wpcl1PG G5DRxzMBVnRsF7DDKysCYz NXPmjKhkYOvnj016JJP9Ns UdDY3tB2Pqi6S0dM9bzXNi PLZsrLBuQlAgTRPnjl1otK EaQSnle5FpTSQ7nuX7gNDl yPXxVFDuMG95Eyqai0AcWi mui3SxS57ibSJ0IXdhz6wi UI8dScG6nnYnPRnwj7mhtF 8vHjY2IVwuFS2oNM7zRKOt qY4qolrbSXPhJkQruzxwDX GwrBiupqCgPx7dlEibIPD9 INkqB0imiF1jTtZ5AJpeA5 yxoO1dNQf6PHwjyXN5ASAx pX1zGD4qvneed9vgMRlrFA caDSAmwqE6iiJ8EMPtdHGa E3FzfT2kVXCeBK7hmrldq6 uuQET2BZeiEKBaYWQ7FvUk SQYze2Ibeod7RvGxn7LdvK BnYAjaH75zu412RYDvguQb Y1bqbSNifvcqmRYmokkgGQ eykmR6HLBwFMFbFBqzCVWn XGZzMjJcbGFuZzEwMzNcaG ljaFxmMVxkYmNoXGYxXGxv G3fkNyQyL5PrSXPlWeSpWG pePBgwrUQypEWcyGS7rU2d GP2jKJHaiCMmQ4UiGWAaay CjgQDuQMY5nWFnhRGyGN1j FZlubSUzk9urj2XiE8qtvK ogrVM4KQ0pLXEqXYAvDOsv u1KtoI7bSmbzrFNscxteVU xmczIyXGxhbmcxMDMzXGhp V6auXuGyVFGkqYpdQHzhb0 NoXGYxXGNmMlxmczIyXGx0 cmNoXHBhclxwYXJccGxhaW 8xLbEbFlFeJhkfFL4hVSHt R3hgbVAiBNQkKEOgE1bdXf UcgE3txKwjLGvlWfRbEqQx ZnSKa873nw2tQKLsdORxqd HJxNIjcP5vDHicIHkvWKpk dRShRKpak3aaEEMrs3a6hK ZrEQRgvnAjh1msMJmfxbTe WMWitGIlxRIkWGMql13lSA hhrTczjKffPEYeu1RxfEcv p3PlLsCzNMvcq9CfG37ulL JvbCBzbGlkZXMgcnVuIGFs f90jb9wdKLQcAiA2hQMckU O4yWYquYLje7OphPkmXBVm q8gjCYZuhg3rvsclvJUgd7 HxdN9mbhvdHEkfeKKghwXc DYPbr3y5zFDmRRPcOYMsLJ ykoWb5PBPrc042ji4rfqN1 kKHhIIN8FKdhMCVuCGBikl UgZXZhbHVhdGVkXHBsYWlu XGYxXGZzMjJcbGFuZzEwMz NcaGljaFxmMVxkYmNoXGYx LQqrQ8ngYxJkN0DoZHOqHw CnjENaL5ccoIXmFJCjAYar XGYxXGZzMjJcbGFuZzEwMz NcaGljaFxmMVxkYmNoXGYx ZIsdT6aaGfSfM1FnFVAnRw IgIFxwbGFpblxmMVxmczIy IHpzambfCHBxHMhyD5dzVb YdBZTyqUxvZHhdb4EfRHFg SAOaFgrupaVjPRq9jsMtFS BhclxwbGFpblxmMVxmczIy MGsrhebsLBKeGGlqQ0qmRh QxDXYvyJuvTGniw5BzCRVk XGNmMlxmczIyIEltbXVub2 oaw2AhZ8peuPnblVG3ZATx Z7ekyQEfhOW6NRM7yC1zLA kojcLwFPRbn7WbDIYdPVYa UnG0vL3xMIM5XsFYeQisGO BsYWluXGYxXGZzMjJcbGFu ZzEwMzNcaGljaFxmMVxkYm UfNPNyAVfzX8liDhWiZ1Zc RYCfFyUrpPthHEhlNDg3Mj xwbGFpblxmMVxmczIyXGxh qzgaJZOxVQioE4nsPiLrDZ DkoEpwSQtme9KqPEJoAQSx MlxmczIyIHMgTWVkaWNhbC EEKU73TFDmUYVwcYqorN6e iBWLMHSuonI7r4Q3QUlxBY WfJPq4NKjilhDcCFIeeQ0a GASaDL6jCOu2ssVcARCkk5 IxBH6aRUNweCMpMIN6NLKq x0XnE9Nlp0BdFGVxLFJypn 6zsaOrBfQGgLFtTNHsuz52 TLRwTQ3hR5yaAEWjNMKqxw OooVTru1IqYXInpVN9xSQr WC1WLlRIn68sGRXaURVDfi OpTOUqvPatlAX2imK1cF3t LiBUaGUgRkRBIGhhcyBkZX Sdvz3oavTsGKFxQTRfq9Uk aCCgtUKynjKuH3Jfq3JmPI Paxq75OGtnuPMecw55OT0y E5Yyf9QcnQ8lVGkqSMItd5 HqdPPnrRQtWXKco1ZlM2zf grzwRMzvuRMvcZ4aJVLbAX h6XFDlj9LhBSKky3QkAfNw vlJvZHFdRMGkXAOzqG64VK Y3pKclcJqwhqBbSV7jLVOe buXcIXAhKDZmcH5vVXvbxx VlCJLcxrQ2k9J6PKkvALEb wnAiFnbqKFF5vwYtigS8aR QsV5caivovUAgzUOAef1Cs eD9prIOAsRIsi0UqxHFxpT PIzJNdRG6ofqZqSX1dXHF5 ODggKENMSUEtODgpIGFzIH L2AVzhPiubVDX6gsZnRTXo w8CcNZqqU2zzR09kzAhmsH q1tTCgcHrnjUAdpTDxQECo xsV5v5A7KGFws1VguhxnTZ BsYWluXGYyXGZzMjJcbGFu ZzEwMzNcaGljaFxmMlxkYm NdBUXvAEwkP9ctMoWxEhRr XcxbUZY3jS== [facility] [id number] 16:47:26 Test Item Value Reference Range Interpretation Comments Case Report (test code Surgical Pathology = 104) Report Case: [id number] Authorizing Provider: Nathaniel Dooley MD Collected: 02/26/2022 04:38 PM Ordering Location: [address] Received: 02/27/2022 07:57 AM Service Pathologist: Gene Carlton MD Specimen: Cervix DIAGNOSIS (test code = g5gvbDRqRUJdx1qaVTGjiE 3220) FuZzEwMzNcZnRuYmpcdWMx IHtccnRmMVxlcGljOTYwMl moudAuOOIwaERbR9Rzjypr NBrfYX6oEL9ihCwrwKPqkS MbUPUpNiXai0wwc887qJIl c7swZFRTufvcrHh8qNlyL0 1es2Y2QzlkW48ujRCzRNN9 FFSzHOQsvNMeVZPwVCK1SX UaoUFuG8smFMFhSP6ccwqs YMppXYaqDJAoaIY8RJYsuV AzS1ErFUOaZBasSCQetmq4 QjWlBf2plKHcoHboLDazEQ OrHVIqRIzkQQBiHxXnN0QQ WrxYZARIUDAKHAXIHJ2UG9 j3HORrumd9HQNxVLQVYMLT MkVAQ2yXWHVWJzOGTVGPGX HpT6TrP4GEHU9ZAPCiZ5EX DIFTPXPVVV8HCUYeJICgBC Gjm16yGN72VMtvZSP8n6xv dGYxXHNzdGUxODAwMFxhbn NpXGRlZmxhbmcxMDMzXGZ0 bmJqXHVjMVxkZWZmMHtcZm 8kvMFmqErqEoQaLBHzu3ip dwUIwevwyAz9m9xpYASrRc G2xROzRUhvX4lklqSvkLAi CGArKNe0iU52UCJteF0teK SuNUvxbwWbXnL7QFpjUMYu WpO6IOOilLWbWVKaQ2yuUW QwXGdyZWVuMFxibHVlMCA7 eOowp9S1eCScmAMetIfnTw YwDmOvZxUOu1TiHBc7vFsv S1ZoQSRrBmN9lGDnJLDgHK xjTXTsNWLldqX5tW67UOnx sdD8iLIpc9Sgy46ut907zC 8xrLAjSZC5LKPdXZUfmAJx IJWkXJT6BLHwfTQpH2bnHE XnUR5bkwmjJDxuJHeyGCGi nCS5IWUndPIaW9TnGFKkPB wdDNKookf4LcEhNl1pbMUb rAaqUXrwb2gtr5jidUSjIh b7IWPpAtQbZmkcQWvex2Be h6feYJIpeo0qCWR7mKWxlD nvk7V3bRZzYCQqxEIeMYWf YT5hwMCgXINrmM0kuiklID BnYnJkcmhlYWRccGdicmRy Nl8xlPyfXTC7VZyeX7rksR 3gLgA3RFzgG9hpjC1dBZr4 TVvaVVEuhPP7vxY8VIJbyM JpV3NxpB5uUWFfJJ5nfaq5 h5vjTKG2TSmgVISpAbG6gq S1YKNsoWHdLVZwhMkeGWnw h100NOL8SdYlFXDqr0OzO1 BgcQeyO24sxIqfV44uGTIu sYmroV0hqTzudH3nPiAvDz FoJJwrlTqmSP3bDDMeA6mp vCMoDBSlHLRyO1uyBoRkxB 2nnWjwAVcpahZeSZCoEbc5 MSKkrCUwYXEqJjk1NIZmMU NtU91nbcjpIPF1fL9lh0zw h4EbDMvuSHY4DBAce06hJV hyrvY5HKkvXd18PEzlLFJ4 VDuiBLC8mH== COMMENT (test code = r3deaMJiOLIvzQY9SxQjCH 0941) Fqu6sct2OueCAmmRLaIItt uVEnycZjts20cTF3fH14EG 3tWDGxVtG2BEOvfnJ9Wbc6 PYPyXGUvcGTrY762f0vlo6 zarxKfbDP7vSuoXXHptpjw DoP3RLcgWZItrsgwOCa9ZP hrTEWdbAP9VOKipPRbC0Jk GOIbMZ3qncu5HZT5BYtiKU FvBoD7YIBfeXPsTNScrVtc DWstz087RNI1IwBeGUNkrk IlkBjmpZ9zLkLlKAOXkVGo nWP5gNLevFhaTTibs2Qzii oou2JuF7RugzqnECqtaDRm laAnukTbg7WdCN4lEJffQD E7zF1bLFJsp0haESHqZ7Zh RJ2gF3Sdp7fgAVCew5eivj KdJLY4tXOnJGIeplTrhwGd PUZ6fGRklAHghVFdhMFpnO Wcs2KmzGV4icTtslGtqNC5 PTMxs3GitA19ODLkc62oHS Bhcn0= CPT Code(s) (test code j1wydQYeXIYudXJ6KaHzPV = 0250) Plk0klr3WvgIWalBPhBCex iGUfvlAply56dVU2cX15WN 5xOLJdZhY6SDAhstX4Dkq8 MKYsXXDrsERdS757r4baw2 nszrDwbUM9kIofMXRofgkz BgU5KWqjFPUtlplpMDy7UY sfTOBjcKL4YKPtnHYrU3Ce WFWiAZ9tbxv1DOF2EAtqIV FiWrZ0DWQlnQAtKZSwmHaq HLahu178XWL5FaAgEWZxpl StzBuddK4fCaXeWLP2FXUt NVxwYXJ9 CLINICAL HISTORY (test g7rlqCWzMWNmjFX0UwTfNY code = 3351) Jsx6ruv9FxbGEijXFuBXol vPYlmaPhji54wFQ8nA20DC 4gZBZcPhF6OVMowaV4Cae6 NRIdACAnyTXgR305d7qqw3 vwlpQckCC5iYqbJAGobdsf FaT5NBkoFLMcxcazKWx8ZZ ylHCVjzRC5YMPjkCJoO3Vn GBJeLF4olym9VLT8YJtrBN NjHfY0AKKeyGDsTECieVlc RDslo307DEA8CfTpWCHkgq UloJjspV1nQxQgNDFcOIH3 Nv6uCW2jDC9ngGOwetdvfi QmleReqlNtvmCdarQ6IXIu a6t6eMYXABk5WB4vIDwEDJ FjboXcEkkwoC4mkSljlVTb AG87zI2wxCWqe2RtnSFgBX xxmRlrsoZpzlWsBNwemY2q rWbhBE2rNmU7UDebswDqRP ScPMOnjT9oSYSbw9cfgpXo YmRvbWluYWwgcGFpbiwgU0 2URRGjhHyoxZjoOITlZV8n o7XgsxPwXMHdYGIlH2OmFL Tzp0ChRBY0bvHqIJXwENI9 tTS0w84vgMpuSWOvJH7xJB BkFIhlETYiQKxfIK4hQNMp jtYgR6VrXN5jp8Gyg5d+b2 1qzO6bQ9slT9fzGQJ9 GROSS DESCRIPTION (test t3cgjGLqRSLvkCOENXRoN3 code = [id number]) yhlzQtRFFqxFHkY6Sswacq EFoxAD6uAF6xyKnvoLTctP MjZA1EGYGjJuLyWGWcjKKp taTvIwIgZEEyyXOibPE0UE RhOO8immkdCYzwPAyqHPKj waY1LMCwqYQiC2XpAUQiEG 7dzvxpCFE2NEdrlW3dkuAY SdfyTe8frIQxbEtsZhUsRt NoYXJzZXQwXGZuaWwgQXJp RGh4cH5DZlquHNP7RXWRYm bjLKNdJY5Bh7goWLKxnXHi TNP3KGtzcNBpGUZlOUPwMW l7THFtMFzfsLDlTH3egYvt XhyupYsrd3QiyWEbXRpvRR LaOKQoVElxGHZnYP7VWoEn QMS0STk6QHEnXNt8CZv1VA 2FHfXcZPXnXZV3MJH1WvWa JTm0ZQiqYA7ZRFD9WKD2XP qtCuG9LZX6IqLoREAdJyLz XGYgQXJpYWwgXFxmbCBcXG 7wlZuzqLKnlzCWNrCVLFB8 aXguXHBhciANClxlcGljTm VzdERvYzEgDQpcbHRycGFy XGxpbjBccmluMCANClxsdH JbmZihjvFeEFUbU8PyvtAd APwtGACsjf4wuClhYYdoQb CnGRRwg1u2qJP7mQOmhUD0 nESxoCxvCjRtSI1crXJrKR 8tPEdaKIcsqoZvv9EaHD14 bWJlciBhbmQgImNlcnZpeC IgaXMgYSAwLjUgeCAwLjMg pIMtJlKkH26bwKIhQKcnTR imj72xvZM7rKXbwYFgIzMi E07wjyNfFGNhqAwwHCI0iR KcJUXaj41gZNJ5Xp2onIPt HPGzbiD9i5RvKXugVZVdCc vuVNVcDTtyoWLvRW8JN4vx wFGjPGQUxlI9yrzkPPhEZY KAVVRmSPJXJIlgfOvtsM9d DLnwiZ3iSA0TDMJiJRacRN BbdHTBXEM6EV7iODfnyVUa yukeVOVlF0KgM1MqbeEhdG YwGGSaqpOik0zdDTE8MHMn rXQekDZrOmSxDupwZTL4IF ckh9jeFPZ4YXJrcSLosOGs EHliZeKmAhwnNXEkJ0WjA8 RqxpL6EAp1 MICROSCOPIC DESCRIPTION c3bnsGZdHLOlmJS2WpLrIZ (test code = 3371) Chv3ldh3LzdBUokTPuZCrf lRAfmsZpfq76fNA1nD72QB 7tCJJtImZ4FBRsfiF7Ent7 FZTkEBGeoUTpU044z5pxj6 iabeWbeMS0pTohDFGuokce PbB6YMaqZZJjnesyMCo6PE hfDQVkoDU9DQDtsRTnR3Eh QPJxGU2edyk5YYA5PQkqRD KbTtO2ZMKbdSKjWUTcsQax ZDglt123CXV3OqVkZTZmpm OyjXjxhN9cEcJnDNDQSRFo f0YdLWMbRMMvxp2= SPECIAL STUDIES (test q8wsyJOwKRMfx1cnXFZyzW code = 3376) FuZzEwMzNcZnRuYmpcdWMx KVychyMnVLdzj8NxF5MqTk AwMFxhbnNpXGRlZmxhbmcx IRAzVDO7fiWiESXwZRowWA RdKAguVp6ywGRhfRrsPdVa NAJmv0zfxvFRdskjdPe2u2 gvIBJxBsI9jQDvZDmvW7ir ftUbtEDhS1TfkHHndEs6k5 jjGtFeXeS6hZRzUKpgD7uo qgKnvGDwFCBiPQj3kP33KD CcdW2nzATtAKgxpeBuRqE8 JTwfDBKhVkX5NFGakFFvJV HyW5xwEGFjUVeqUPAnGNzk aJTxTFD2iGmwp2L8xATfwY BapBtpUoWjCuUcCsYUq0Dg WDn7vJlcS5UuZPTiVzE9gW QgUGFyYWdyYXBoIEZvbnQ7 aSrsbzXtm41pdQQeGVVyJG QwVtGbnOqhQXPvUTUEe0Np oDbuSBF8aKo8sRovTkeyNB I7Sjv2GC9ahg42yhq3lEue TBOmbmngIdO0MEcgNBRdmv vzWRq1BLwrLBZcfRW0VPEv qVIqD0UnNWIbQJ1scfi0AW B1LNxjHLIiLiM3VBBxsXYn KNZaxRhrIFjfa002ILS2Ie YkMO7cC1Khu6I0lQ1ktVCt FODbaFExDaFbRUYnie3sbX LkJIdmh7QpGFC0buK5dKYa uUYjNTDgFF31Ztmsv8TyMc bjx1QvO40ibUG9GWpcj8il GM7gSvC3zaVbAXwml2lpvQ 0oXrM1DLhxFO9pVL7jRTFd bI9fbcedQXQcFrEagxevXG YpqZngunWbHy8loTvyFRW7 BEgiF8fagC8rGgS8STmpR0 zgeY6sUFg2GQyzoAH5ZEEf jR6dID1mgszxi4qvASysOO hwEUTgaeD9anR1LNCxyWGg N3RdmH0xLOPwXS8dqmccz2 viTAF2XNgoFEJwIFO5AzFr AKOnu9Ynxzu9LoUsv4JgjZ DaUUesS41ww540ONKcvrSz O0sghOTjrkdypNAyqqjdAU uioqZ8THEyWCRxDKckFXOo XGZzMjJcbGFuZzEwMzNcaG ljaFxmMVxkYmNoXGYxXGxv A7elPnZqT5XfQOHcOoEzIM avUReabFEcvHHhcDN3lL5z XG0kGHXwmOWdH1SmYRArnw TftXPxWWO2xBSaaOSsSS3y FFqdcLCrt0sgj8JgG4thwC kceIO7NG7gKXIjYFNpTXoa o2IqzP3cRevnpNFbwbbbNY xmczIyXGxhbmcxMDMzXGhp E0ejNrXiSXSrpKcdNNroy2 NoXGYxXGNmMlxmczIyXGx0 cmNoXHBhclxwYXJccGxhaW 5yHsUsYaElIexaWW9bDIAv E7tlzVYzFSWmJPJoM6gbSr HilS8mkHiePLxbVhQyPyOt DhBZh309ni3uJAVrcDEoby SYrFYyvG2jCTzoQQvpQGye uVYpBPzpx4wiZEDep9q1uA ZqBSLwleKbm2jsHSanihBm YKBufRWapCDrHXJdw11qGR pwhGuxnWghTKVnv7IvxFdr x0FjKqAqYVglx0HiR23kfP JvbCBzbGlkZXMgcnVuIGFs f25yu0poNCVuXuS6xHUsgY Q7eUGkxXCaz0SfqHkpROOn j4kcEDGfbt3jntbkmJDne4 WmiD6kvahhLSibnELmjlQq KOEuq5a9vPZmHYPwTQLgLU ixzGe0WYJyg807qw3ctkF6 dEKdXWM2GIszEDFmQKOdza UgZXZhbHVhdGVkXHBsYWlu XGYxXGZzMjJcbGFuZzEwMz NcaGljaFxmMVxkYmNoXGYx TPugK7adJdGrW5BpSQPrBj UylMEqB3aqkWRhYJMrXAhe XGYxXGZzMjJcbGFuZzEwMz NcaGljaFxmMVxkYmNoXGYx SVbyH9ajSrLoL3KtUOGxWw IgIFxwbGFpblxmMVxmczIy MXpaozzeTTJiNScgU5diJm RyKMMdmKrwJGbks7WbSWQg JZHlAxwrjaQoODe3xqQoBY BhclxwbGFpblxmMVxmczIy YBgbujeyWXSuQNrvU4kaZn VwILBzxOezZPjne2HxBKHm XGNmMlxmczIyIEltbXVub2 nad1MbU9vngNvxhDU3XJYp F5qepROeuDO9HHC3jT5tZG idhgDtJQEnz5BcOTZtQUKd JpT9iC7hMBZ8LpBRvIzbDP BsYWluXGYxXGZzMjJcbGFu ZzEwMzNcaGljaFxmMVxkYm NrUGEfYYrzS0raQdTeU3Eb HAOtQyHkkKpxCVkkVFy7Bq xwbGFpblxmMVxmczIyXGxh ndxcKKInAXqaD7phUzQxTM PvrBgpBThdy3SkKUDjACBj MlxmczIyIHMgTWVkaWNhbC KITI08XJXiYXCwvKmprD5d nOGVMGSpktA5o9Y1XRwpDY PiSGf5MWlhgaVsBZKmmI5a XGIvTJ5xJNd9stFzYHQsj5 QqKN1eEVLbhGPoIRA0FPHi t8XkT0Umr1XkVBDuLBGyrh 8svbHcOwRWxDOmINRiif32 WJXrNJ0bW4piWMKyXTWuoc RmqNYtl9KwVRYmpHJ5lWWw XK3BZgGBj19oECNrLYCIej QkWYAvjMseuLC5alS4uT9t LiBUaGUgRkRBIGhhcyBkZX Wqaq0jzjFbJZRaORQkh1Li eNFlhMYzvcQkJ4Zmi7KeCR Wlvu68RTqzcKOuam31KG3z Q3Afj9VwmM7sVNkrDYDxq2 CzaGDhcMFmNNPnv6SfJ8il sgqfUIchdKBloU3qJDFdVH z8QSVdv8CjILUjb4YcZzTs oiHuBUUgGDBrCAHqiL73GV B9gBdxcYomrwOzEH1aZRZj zmVxULFfUBCtoU5gEPqdxn XoDEOmofM3a3Q0PBxpRYIz okEsDgrwFHS0rtVpzyJ1rP MrC6enwnysPKlkXRXkw7Cj uI8ydHBIuXLyy9HsmEOazR HCyMTyKZ8mzgOpJX6sLRP9 ODggKENMSUEtODgpIGFzIH I0WKxbJsupKWE5exQxDARi w3GrXZiaA9srC38ssKqwjM c7eGOvdTfjeYIugEGqJBIw oeA0g0P4LQVjf8DywugiLM BsYWluXGYyXGZzMjJcbGFu ZzEwMzNcaGljaFxmMlxkYm ArMHOuCYbwF9nyBqYqCbHy IezlZIK9mN== [facility] [id number] 16:47:26 Test Item Value Reference Range Interpretation Comments Case Report (test code Surgical Pathology = 104) Report Case: [id number] Authorizing Provider: Nathaniel Dooley MD Collected: 02/26/2022 04:38 PM Ordering Location: [address] Received: 02/27/2022 07:57 AM Service Pathologist: Gene Carlton MD Specimen: [employer] DIAGNOSIS (test code = [id number] 3220) FuZzEwMzNcZnRuYmpcdWMx IHtccnRmMVxlcGljOTYwMl jkkwQqRZUpmGJdP3Lgyzbj WKswPV1nTN9viRsolQLuuH AfEKKkQxYqf4hay623bJAz l6azZZVLgivujKd7uDedN7 7zx7H5SbmsZ33izLKxHLY4 NPMfWIPnoPCiCIVgFZG8DM YumUGiX6kuADQrIB6uhgsm VKbsYCteFHRsaWZ2HSEvoR LeI5QcFDHtDRvtVCOhdxc7 IzLkOi5hwVAfiVefGGbvGX FlDRMmVEqdTWUoWlDlN6NU DxeRZSZZJOUOQIRYZV3HU6 u8JBWsnmh1MLBmRGPQBNZG CdOGT6iZIESCWqYSEIYFXV BaN4FzR1NYKW1DOBEbN8AK YXECTPDKKT3OXSZkIBTaAO Sgx42vMB15ENeeOWW7x7io dGYxXHNzdGUxODAwMFxhbn NpXGRlZmxhbmcxMDMzXGZ0 bmJqXHVjMVxkZWZmMHtcZm 9rtIHopVleLgFaGWHzt2zi xrKApkshdTx9q0pxIXAaVa B0kHNfMCihP0ahnpHgmYWg JHChWPi1hH38EAQmhJ4kzP YlYHpzljQeAgK8ZGhqWWWq HwI3MFZdjKGnMAWpX3idGJ QwXGdyZWVuMFxibHVlMCA7 uAxqz4O0aKAfxPKgtWveAl VuXzSqThTPf3KaLAb2uNtz R6GeLIKvRtH9qXZfPMNpLT hoCOMtKQMjraS0yL40FBzx smJ6uYDui8Egx81hd169eS 7ugTOvWSG6ICZaDMJsjWGj LXLxEVP6MDQkfGNsA1eoGM GiUP7wfmwyNXemNVwnWJFq bYW7OVTrnWCfD4UeSPVsID auKZWouzv7KvGkGm3dmYAz bUeaDFwke2uzr6kaiSIaSc f5XMRaCyJuAjwyYHffn4Qs y8usJGUaqd8pDWK3sKLuiS afj0K5bHPqOQKarRJwMJDy SC1apTVeXLStnI8pcqdsMU BnYnJkcmhlYWRccGdicmRy Sz2mwUjvYGT0KKwxI9fghD 6aOaM9CIcrV4vlmY2lAQl5 RUqsBLGmmVH5iqV6PAEznL NnO8UrsM4nLHJiQD3qcpe9 f6mlZEW9CCiuYBXtBfQ3er B8JTVatPWcTIIvdHdsHIga m328AZO3BiOvDYKtq2JoW9 YleNjrP33pjElzO84qJWAy qGgucL2fqTrnbT2dVuItVf CjPJslwPbsDW6bGQEuG6cw hHTqDYRhYSZhA4kxNbLsdO 2vqMlzCTjtceLxJVVqIwv5 CMWggBUaUKXkSru3LEYqPV IyZ09hyiaiADQ2lL9cc3ui r0QpJYyaLAN9VQTdi36lIM utcrG6AMfoNy72YQhrIVY0 TNdkAQK8uY== COMMENT (test code = j8bqxYJtMWTfhSX2XfEkEA 6181) Rmb6bqz8GpdBMdtCMyHCph jKLfyoFpyy96aPE4vN49AW 8tXDOxQnK9XINiviM3Dfx6 CJYyIIIqwVJvX409e8wfn8 eoitOiwND2vImzSTPoccbm XnD9RIrvQSIboehmQEl1QM pfYWZtgSE7LNOmoGKgZ9Ky YMOqEP8dorb4FAI2ELdrJO RiLzB5ZMYeoQPpGHUdlDjh CVwvo653KYU5FzGnUGKvtm EymJshtO5fEeBtSFPLbLUg iTE1eUPcmIqcDCztu4Sfed rjh1QgS9GhgxymYOdsuMWh kcJzanOii9UxMX9lGCtyZY Z0jB1mFBVkd8mnPHDeX2Ob GR9dX6Qqo4huURVrw1zudz UzXDL4nICxBYFkypHkibUg YTG4cROyhCDaoOEamQOjtD Jdb8YdpFP0lkZbqkGbfPL0 CZDyo0SkbH07PLRyz62nAX Bhcn0= CPT Code(s) (test code o0ysuDMaIBGhcYZ5RmVmKN = 3357) Ldf4hqr7SqvFKhlPPqYKao wSSaeaYckc13vIY1dX57AH 3gUENiVyZ9SRXcyoA2Ljy5 NWNxRIHjxLIoJ643c7laq8 qbueEeoRW7sWkwRQRbfthh AnG8ALppQPFpfoekTGb3SN boLIJekPP2CLYczNKaB5Bn XFRsTF1cpup8GGI9HSxpYO ObIwD5YMXoaIGeRZOwkMgm URnia159TSG2LzOmWXAjsr UjbMogoT1vMhVpAQW2TPIi NVxwYXJ9 CLINICAL HISTORY (test a3lgkDVaLMXkaUI3GpUpKZ code = 3356) Gci7ski4NhzSUwfZZiYPwv qOQsicNbve57iSL3dS60AI 0mFVQrJoG2YAZkuwW4Rpf0 DYUuCOBtcBYlN942b7yaq6 hdqhYdnTX8xUjkUUCpahck BvD0OTqvRFZlrngmZUe5QQ gbLXKltKL8ZQLfbPLeC9Lr XGGxDP8less1IGA9KEszFE ZsFrC5EKApbJPfGUJsxUjj DVrfu557ZYW0UuJfKRBhwo PcyKajdT9lPoDnAMAnXUU5 Zp5pMS4zKH1uoUButzipef VhbdEoqrHlcqZvvmI1KHHk m2b9gPUCAOo1UD6jBLxXIS ZvrjRsUvlerK2cvIfplBJj GM75hJ6ojWTpj3BhnQSiHP qwaJaeqcSucuEdOOtaiP7j iBizGG3pJiJ8JNbuomApNL JhDMEeeP4qJDZbv1laikXm YmRvbWluYWwgcGFpbiwgU0 0THEAogTchkSwrTROrTF5c y2NcabYgYEVeMTQoV5NfBK Hyk5IvWVG3dvNpNBJdJMT0 eSG4t91klUsqAGXvAR6lUR MjTHfwTLIhYOilBC4vHTZx fdMaR7QzPR9bd2Fgq7p+b2 4edE5gD5ksZ3xnYZB6 GROSS DESCRIPTION (test i9cctQQqIIPwbBAARCFwB8 code = 7896929806) hhtdRzEIVfzZTjN1Rfeftr YTgpIB0mDF5lnJciyCAqxF JaKQ6SMXNoDfHeJJNmcQIz zfIdMnJmVMZisDXtxLK7IH JoQI9wbqxqWFytVOvuHRZg fhY9ZYXuxJCoL2RpQOVsMW 7zhfwxLGY5XVmxdZ5dxhTB PlfaFh5kgIAbxUvcPtQfVk NoYXJzZXQwXGZuaWwgQXJp RWt4xD5MQipaNHD1HMPKHs huQQVyLX9Fy7kdLWQovUHi ABN2BNmfdRVyLSKeVEHsMQ k0MMBkOBxwaINhGI5tjXcr UsdzlYhzc3WshDAvPAebGA QmQHIaYDdxSLHtID7XIjQe BSA2NFh8OMPrXXj9KYe7WR 9YRlQzCUSsVBA3HFC8JcVl LLm8FExeDZ4LBIY9WPP5OC jaNbX9OZC5PlKwOEGuUzNl XGYgQXJpYWwgXFxmbCBcXG 4czUgzuDDwyyBUZsBNFSV1 aXguXHBhciANClxlcGljTm VzdERvYzEgDQpcbHRycGFy XGxpbjBccmluMCANClxsdH MieUksoyWmRQUaU4KdivJq JWtfWKJkma6bePvfBFusLx UeEZMoo2o5cGT8qWUzyXL7 eFJhbStvOaSgXF9moZWnWL 2iBNrzBUapkeJwb8LtTD05 bWJlciBhbmQgImNlcnZpeC IgaXMgYSAwLjUgeCAwLjMg fNXvBcMpG42slKWpJTnrYW fxd30tnCN2nHMaoDHzZnJy W45dorYnWFKdcRdjSYK6zL NqMSEzm91wDBL6Wy3oeIVj SIEmliP6u9VdZNagFZEePx acAUNuSNzmyYXxPK7NF1ye rYFsGBMPxtA9cpefZDgDIJ HZOGGyTZUREPgwhMardR3k TVkwwC6aBN0HYHUtVShvOT YdmKUMVAJ7KQ7rZQfklEQd huiuDHJuY6IvI0LeizRliP KbBIZbjfGya7nlVJM7WYAb oRTvnKLvUdYkBqhrJHC3JA dbf0ivYWK1LCBijRJxaHGi KYeqWeBrVxnmXUEcX8NrY4 EvdsS4GDr9 MICROSCOPIC DESCRIPTION v7lnkKXqEGSztYU0LqYoZE (test code = 3371) Ugg4lfx1AguUYheLHbDKgs mUQxtfEhgn71oXM7oQ64YJ 9kQUCyWtR6PMLiyvV7Igg8 ZLNjVEGrcHWcK027q4vbb3 gtlxEydXR1jQghBFLlngiw UvW4VWkdFRWrgyuxJRq5IB pxVYEclQW4KJTqcGAuK2Gv LCZeSI5snhi2FJC0CFbcVK CyTaC2MKJfrALvNHWkuJxq IRulz463OLW2DhZnUCMglm UsfAhhcC3eNuKuUSSFEDUy q1MlMBKhDKLaae5= SPECIAL STUDIES (test d3kakQHvAFAzz6ogWQGvfH code = 3376) FuZzEwMzNcZnRuYmpcdWMx KQzkmbNoNOnpc6CuA0KyYn AwMFxhbnNpXGRlZmxhbmcx STRhDGL8knCaXTRpYHypFQ FpIPwcAq3dxYJuuQkpFoKn LTTue0lupiARqmwqfAh1i4 tyAQKtDdL5kJVeIFxoT0lu qlXmaKRoH5KnxQCyyXz8f4 brRwZiRdO6jIVdVQunV7pz mgDrgLDfACHdXFw5zN64QN PfsW7wqXOcGBhjguEgAzT2 CXbqUPEfTbI6ONJxgIGqAM XkX5ncAAZgONscVEDiSNxg uXZfIDZ6oLmqq5R3vLGdiM PvbQbpIiPkElEmNeEPh2Qp RYb6fNkuZ1UrKKJlOiA6nN QgUGFyYWdyYXBoIEZvbnQ7 dAcdogRlg06gtEAsZDOzWO OwMlYgqBcuKJHkPFXZs1Hi vKvgLFS2aPx7dVyvRrkcBK G2Vty0QN6nru26vql1xKdy RRUsxtbaIzI9CZzzYTMnkn ibOMw2GQyvDJKayJJ1UKGo bLLsH3YtPUHhDN7ualn0NE L2BAdxPJJmUmK6NUZaeFVg ASDiqApxBJepv458BHX8Vr WtLF5wI1Nti0I9xJ1xqHRx WHXsvEKsXzBdIEGahm3wzS DuRKspf3RwEAW9jhE2eWAt hPSpWNEoYF99Qwmrw8GvAy cgw7HqS23phST5VFmxc2nb FF5lKwM9nwVnFKzku2bewQ 6kIkL3CVixWO1dWX8nDNXd qT1dgwohSHGkOsJaphtcAD WhrYadovHxPl9mlVxnWVH9 VPocT0rbxG5uHjO1HGtnM3 xaaU6pQRk2XLfsdWS1ZDNk kX1kGX8kxiftz7vlOCgdXD hfTSCzjgK0zkR8UCScoNEz S4WxfJ8fXMTeZR4ferlkk0 gnGBH8YWqmYLDnIMH1JcAn FDCyo2Rhhoy8AaKan3FpvB PdDAdxS67rc275OEDovgAp P9qbuHPymnkfzHJxsjtkNF evgoN1FGDgFMFySSbdWNMn XGZzMjJcbGFuZzEwMzNcaG ljaFxmMVxkYmNoXGYxXGxv H5gzLcYmZ0PrMMCdTjMnEN ysONinlCOcnCTgtFI7rG6d SD0vSOJjyJHjB9KeUCOrfh ZfbIOzJFL6zYRtoBXkUM0t VTpcoBChs8lns9KcA6bgiH nphBN4BX6aFMIfKNNfMDgq q2JcjO2fCrilhAXxhohaCV xmczIyXGxhbmcxMDMzXGhp K2djZfWvNXRohYafXVomu0 NoXGYxXGNmMlxmczIyXGx0 cmNoXHBhclxwYXJccGxhaW 3yVjHaPgOpJqunOR7fEIRg M6pmaTKdZBQxCXLkA7vrUb SvgX6duIdiIUqgMnFtLgGq QbWCz332yl5gEDOgzJQzdg QLuKKkqZ7hVKdaCAacBWhw lPCkKRspd5czTEYmm9p8xI JlDVTtyzKed2biOBbdejXc XPQgfSXtsYFsUQKnv83hAY fgfQuxtPapCXQkx5FeoQpb l7EaSzPtBZhjx6PxL64tnH JvbCBzbGlkZXMgcnVuIGFs k98xl7veNXLfGkI3eKZfwF E2aTZseANnt3ZwwWjsMQYc e0rcFTVxho2crmsfaOKpy7 DrrF1toaugIPkiyXLeaoFw YSGle9q8iRTvMSLePVNpHX hsuSb3HTSwc053zs5rutC0 wHRuWMM5HJcjRNQwABMxau UgZXZhbHVhdGVkXHBsYWlu XGYxXGZzMjJcbGFuZzEwMz NcaGljaFxmMVxkYmNoXGYx FWkaI5euQeOuZ7NbASKqVx FvnWTqM8sfkEPrDYUyDCiv XGYxXGZzMjJcbGFuZzEwMz NcaGljaFxmMVxkYmNoXGYx BGndE4kdZcPsN3WnQAWwDi IgIFxwbGFpblxmMVxmczIy JUtytvgwYMXhOLtdA4byTa YzXMHmpVksIZovv7ImILMj FLXgGxojklEsVYo6whAwJT BhclxwbGFpblxmMVxmczIy KYstcqjzEOPlHKyxP4bxIw SdKQWnjZciCSasq7EfBIZc XGNmMlxmczIyIEltbXVub2 xkg0HeR7lavZdwqSM4XKPg S3kadHXpqKU4SOA6wS2vVT pzymLdPBIpy3ZqVCHnXBOk BdD2tJ0aYTZ3EkBCyKhdDQ BsYWluXGYxXGZzMjJcbGFu ZzEwMzNcaGljaFxmMVxkYm XcNHUrUHpyU1qxFjNoL8Xr HTNyUhRynGvqNJmgBQj1Fb xwbGFpblxmMVxmczIyXGxh egsyDANmWDpmV0lyXzMdHP ZnvXrnQDfkz6NhHERjMIMw MlxmczIyIHMgTWVkaWNhbC DBQX01WIAkWYLioWrqmS9e oHTHOPFebzT5q6B7LQipGF TsHFu5EPdxnuDfPUOtiT1b YVYyUP0aJMv2tbVjWVVvg5 JwAJ4jRWMvjKFpZKU2EYOv u1BmR6Dpx1WfELDlKXSxad 7ixzMrRxCPxMWkUNYyfm27 RDDtSH6nH6oiJLKjOHStln AlfHZqc7WyVDNsjPJ4nAPp DJ6RJpCMq63dTETiRUJEit EhOOWkgYsohHV4vxC0yF6d LiBUaGUgRkRBIGhhcyBkZX Pfcl6annBlEMSoQKHke1Dj jJBpiXBlfuEqG9Vvx6LwCG Cnun81AAotyASfcj13RU3h X4Fhy3FidH3aOSpyRRXsh6 JxaWOdrENyPVIgi3BpQ5lm ktvuPKiesUMelF8eKSVoBT m7UELxo5IgJIYob3SwBnLi auFjBUHqYUMuGAMdvB65RR B9sVfzhEfnpxQdOD6qBHSt jyLwQSToMBNxkQ8yTXqjml LyIFGpapF2t4T9IAfnIQFy wqNxEnamFKN2tkRwsrV1tD CwQ9ptofaiBPfgVUCqs3Bu tM7zjQWFqGTur6TfzUCnvD CHbGBtXV8frxFhOK5lRIM9 ODggKENMSUEtODgpIGFzIH O0PJgyLjpnIWO7bbHyKHWj f8JkIIouQ8hpX69slYgfvB p7cTOvwQptfXQlhIYcOYPu ouK0m4S8PZNbm9RpiodjJM BsYWluXGYyXGZzMjJcbGFu ZzEwMzNcaGljaFxmMlxkYm CqNXGeFUuqT5jxIsYjVyRn VyfiBLA2kZ== [facility] [id number] 16:47:26 Test Item Value Reference Range Interpretation Comments Case Report (test code Surgical Pathology = 104) Report Case: [id number] Authorizing Provider: Nathaniel Dooley MD Collected: 02/26/2022 04:38 PM Ordering Location: [address] Received: 02/27/2022 07:57 AM Service Pathologist: Gene Carlton MD Specimen: Cervix DIAGNOSIS (test code = n0dywPEeRRHet8ejMFVpkU 3220) FuZzEwMzNcZnRuYmpcdWMx IHtccnRmMVxlcGljOTYwMl srawMxRKOqvIJkU3Waycta POecFH2pXE3ndVyegTWmnS TbLUXtVoErg7syk737pGHn m5uhIDMHbufaqTr3zCtmS7 9wg2Y0UhmeF68kbPDqZCE5 CNUxUOQnjEXtYTErPYI3GZ GbpPUtR5geMUSfYI5rrtva RCuyTDwdVGKizMW1RFCyuO UwF9VfLFEaRMpxGUOwffm4 AmVwQh1pmCMxrBmbFRugEP DyVXErOYljMXEzWfNjX9SX WwcCXJHVWBQRPVKEAO5KL2 b6DPWqcxc9DAYgXEKUXCHP HdHEC3wQQBPQZyIKDEERLV HzL1OrL9MQEG3AIRTuE1XI AETHAWEBYP1QOTAnJWDhSW Ioh48zEZ75QQzkQEQ4y1pc dGYxXHNzdGUxODAwMFxhbn NpXGRlZmxhbmcxMDMzXGZ0 bmJqXHVjMVxkZWZmMHtcZm 2msZXvhZmyTzEsLOPty5ea tpQIauhmzPe0g6ubVIBvAc U2jCTyZEfkM9cpldRiiLZz GRWqUKo6oX07WGLreO0xpK XmIGswluCtAyS0TGsyRJCh NfA7IEYmeQCxZUHjO1hgPQ QwXGdyZWVuMFxibHVlMCA7 nAjdh1V3gYLlyHIsxAxfRf JzUyOkLoXCh5AwCEe4gCld D8MgXRIcVpJ7bGIkDNIzNG rjDWXbMTCtmuB2zG52STwg beN9iGOek4Tvq22wh579dU 0bcZHkYPG8LTQmLMEijSIj ICLoHLK5ZFLxaMSgC6jlRG VeTJ3fwvooVOheFIgySERj tNG0QTVwuZJbU3WsRTFaCO pvJCWascj9YiYaOi5vhLHb eVbuDSprk9vob3zgeJWkYi j2COIpEiZcFedmPUeux7Lz i3otWXQltp5hHOZ5kREytN syq2M6uHJgWPNloHAjJCPt BO6eiYWsHMFkpB5hedzqKH BnYnJkcmhlYWRccGdicmRy Tl0ddNaeFAS7CKtqT2cpmF 8hRyG7KIokZ6vdwL9jWVb3 JOcuUCRteZK1odF9VTFixP AjY9KorZ0sMMLwSV0pnui5 w7ldUTS9RTjgXMZfZbT9jn Q2RQNyuRRvKMKhqNxdWTms j933EJF4IlJzFWBvk3LvB9 PfbUguR56whXipU52vTSFa hWrhgI4ljEegtW9jDuSzQi AxTImixNpdRL0xTANpD0nx xGOeMJNdTMFjN8hiLkHmjZ 8awHbnINwbjfKzRLKsNfq9 RUUeiMJpNPXoZmd7DTQeBE QqY28zpvhnMHN8tV7yp5qn c5LyFLkxQKW5FUFls98sPW stsvK3XUcxBu85WZtvPZM8 BRnmCIV0kG== COMMENT (test code = t0lodOMqUYTnaLV4DiZxIZ 9296) Ogk8mbt4WhwCWneNVyWZjy aOMyijFrxm15eTU7rU62ZG 3lRRAyQxY4FLIvvwH0Ywb2 YFTmRUQqdSXjC606d2iww4 vjroZdmCU4uRslYQDygedj OyJ9OVxaYZCvgfwjFMn3YI brZKWroQG4TKExcSXrZ3Et WDGbEF0dnal7ATR7FNkgFL BvZqW8WCBspWJkWHNigBsm AVzxp935AML1GoEeRJQdun VmpHylhX5mXbKkEEKGfYCt xZR5jLHbaWbbITokc8Fifi hci9VyS1AofrksXLvvmXTs mmJoinJxy9RbND6dUOydIK M0pW1cSEFml2lxZXZpG2Fw NS1jB5Zmb7tqTMNol4luef McFRX1fXQmVYNdxoKhhwOt DHL1zCPfvIIflRHntJVvdN Dut5GppYR8ieJpkvTtvDJ4 OKJsd5JuvE84TTKke11uNS Bhcn0= CPT Code(s) (test code a3vxvFEoTOZouMN5OlYqLC = 3357) Mnm2qgq4WghOMagRKzSFiz tGNlrxXmfd52qTF1qO58NS 9gIHHtZzJ5WGHjyhQ4Url6 KVRsLTDtiTOfI986w7jzf9 zdczWeiEL7yNsiDCZomowe DaW5WDbmDZIctwurHKm2LF hrMHLsrOW3ONQbmOQfY1Yt FTUaXZ8bbmf7VJZ6QDpvOW PpHaT2LVPigVAoXOSryKfd FRykx334MBB1PjVuMGNvfj FsuMwhhE1sTeInJGV9CLDp NVxwYXJ9 CLINICAL HISTORY (test k7yleFCxXUQygRN1HcToWD code = 3356) Yna7oie1QyfEGbrQSwAEit bQZhztCxvh99sMQ3iK12MA 7jIKRvUpX9IBVcfsZ9Eqd9 VWFzIMIsoUBzP468m7jrh2 puckHeeQL0sDtfWVXcchqm WdP2CDogXDEkdwpgPTi3JY mnKWFvnPZ4LFCvxISfD1Xg CROvSP0moks6MZR4DHjiHS YoFjG1ZPLdfPHzXGEtxYkf KXsqx750WWN9IwGfAKVrct NkcRkdcK7nYlAoLCSrZSR4 Ka5gJT2fQP1dbOEizeafko BnyvNtclUbxvQphlY6QVPx o7l9nTCPZRl5ZU0qRSoEPH KrtfBoImgbtB8glBkqjFEl RU61lZ7niSTxh5JtoIMiHB scwZeamvBsxlRtGVealT4h tFmbKM7gGrX7PMblhyZlSN XbNVRdqF5qJDWja5ixlpJv YmRvbWluYWwgcGFpbiwgU0 3GMVNmwBvriNhcOZOsFP4z o9MjsePxQDQtTEQrZ7EsWP Uhi9FoJFC4qmOcWJMcAIB7 pBW2a72rbTfiRGRxOA2zWX FvYVekKGDeMDojID0kPUXj upUhN5LrGC5yx7Pcy5l+b2 2kbD4sE2pvP1lzAIO0 GROSS DESCRIPTION (test o8xznOTvVAVmzWLUFATkP9 code = 5065658455) arljNuYUXhbVXzY3Urpypc GYzdHT8vHK9tjJxraNRkoH NsAT2UZZNwHwDyFJQhvZNy zgAoWjWdKHXlhXHvxTN0YN YlQD6dnjgxZIhuGHmkLKJq uyQ9OKNxuUUdW3SmXBXsJF 6ofdnpWRH0THkwkI9zvqEN PnmwIp8naOAbcJbjLuTzDd NoYXJzZXQwXGZuaWwgQXJp VCr8wS6ARivvJFW4OZALZq qwZSSxVN5Dt8peETEzlWLl CRW4SNxwwFMvYQRfDUYbOJ c5ZLZxXOcvdHZnOU3skWnq KejbrKilq8IyvKIoILvtRX HaYEHnTPhtRFGlEI1PKuDr CGA6QHk6SLWvDYx9PFd5TC 5GXeAgGLWnOYH6LZY1DnCa OZu2FEowDM3BTQP6WUL4WX qmLqX0QFM5OkKzZAQdNuTg XGYgQXJpYWwgXFxmbCBcXG 3qyMhguEXdwtSQLkMHHKU9 aXguXHBhciANClxlcGljTm VzdERvYzEgDQpcbHRycGFy XGxpbjBccmluMCANClxsdH NbtNbryjTyWBTyG6ImyjKt WUweBDXyxu4hxJlwJFtsWw ReRRDkf9v8uCP8zEQfbIW7 wLEssTvcVlAlDL4nhPZqKE 4zWVznECnqrwWgy4WuJN18 bWJlciBhbmQgImNlcnZpeC IgaXMgYSAwLjUgeCAwLjMg vOHoIdVsY57paXXrDIfiAR xmc14mzXS0kYLlhASfIlHv I61kmzIsSDNjcQqlIJU7zT QsOCQjb60eNAJ8Io4qiDEz GCWwtyR6a8OcFZpoRCSyXu wvXRTlMMffzIZhAZ0OT1mf aOBqVNDEwuM5xupyKFqEUV ZATKBoJUUTZRkpfNgfiP8q BHjflE6oBP5ZPCAjCKryPX YtrSFSFVB5IL9oDThddYLr zdmlIHBqF3BwR5RxoyLrhB EbUDBxaeUzc9qkJBW2EEPz sIPzlVVoVrBlJaibEFZ8SR efh7mcRRH7UREpeZYsfRVf AStvCpOlZtxwBAApT1NkM3 LodiJ7YYc7 MICROSCOPIC DESCRIPTION r0gnjUDuUMRprUB3IlPlGY (test code = 3371) Oyd3hxu2FtpDIlxDJaROxy cBWvfqNkbl32tLI0xZ84HI 0qHXRgMtR0OVFiuzT7Hzm1 GSNkSPAynCLsS414s7jgb2 cpfbJuhJS6kWdsWIUjsxqa HkG9AJlwQDUsvdvyDMg8GI qnCVNodVJ0EOUmqIVqH1Gf WLVuVJ7xewq2GLS3LIkaIM IaXfU3LCNazUNlDHFxpAhd FRlkp755KXG6RoPlJDClrb WyqJlhaL8aVvTcJPJJEBFz e5CtGIEpJURhai4= SPECIAL STUDIES (test l3ypzZWlLAKru2lnCBDssN code = 3376) FuZzEwMzNcZnRuYmpcdWMx GQmtksTyJKuod7BzA0UaPy AwMFxhbnNpXGRlZmxhbmcx LZNyFCZ9tbZnPAMaPYfuUR QjTIxeXh4pdRHjxVwjCsRo RMQxh5sekrADfvprwFz2n2 ukRPUjHjO6nFMtLUthD6gt wjVrzDGhQ5FuaEGsiHd6i8 ogAnHyNwY0gLUrUOqiW9sb adLewSVoPLPkPIc9oW73SJ PjoN1sdXKcRGacmcIrKkM0 DByvPBRbSwB2VYXnsZKbGS MfR9dwWIFlTIvnDNQpTQrh oIRsDQI9eRbnm1O6wIDdsJ WcrTamGtUlGbIcZdJVu3Jy PVc2eFzqY5ZmNHYkHpO7kZ QgUGFyYWdyYXBoIEZvbnQ7 lDldyfOzy32nnBWcGNFbMW SkPbFweWxhFPXrHTHOp2Hd oQafFZG0dPu6bLcyPvpyIC J7Dmm5XZ5iwc37eig3zHuh YYDqqsuuDaO7CYloKOVbop akFYu8BYkoNGWdxLT3ZSVw pQEzF5DyGQZfVB9vcqc9XL I7MLyfJYNyHuX3AEJwiKYl YNDngVqcASgni921MAA7Ut GcZY8xC7Dvj3I6kJ9itTZn JMEkxQYpOgZlPLTati5kvF XbFJomt9UcEEE2ofA0uLOf iRAuJYWhTU34Wxylc6NiNg lmz0NwY79bcWQ2ZVpzn2ms ZQ3cPiS6jjIjUDppy0ythB 1sClU1HJtnYL6bSU7bZSTy eB9xjafnNLAiEjYagfejYW DgzDnzmmNcNf1feUooPYT2 NLhjS9poqN4zQtE4ZZueM9 nnnX2gOHu9EKivtRY0UTIy sF7fHG4hzccjd5viEUegRT rpPDGdgfZ6wnE9BOVjtSAf D0BtlV3bXOLcCQ4pclqoo5 kkVQI0DTnsZRQqXFZ3McYw ZNCkp5Bgcrg4HtCxp4RppR PxKLliW02ws817XUIqsqSj Q9qckWVcrbdjlQRhxdvnIO ywraX8NPViSVOyHAskUOCj XGZzMjJcbGFuZzEwMzNcaG ljaFxmMVxkYmNoXGYxXGxv K8jnFzRgI2ZiMJPmZoIrDU lgIMtyyMHcaGEmvIR5nI6c PL6eLGDybHCnP1NgKNOnoi ZxpQQiDDG5pAPkhYIdTB0w FNnycNHrm9bki4OmS8opsO zkhZN0HB4qNDAlTSTkOQrb h7BmoY7pViktvWNnkbmxGG xmczIyXGxhbmcxMDMzXGhp D1ibRqTdXSRmdAloIXvbv2 NoXGYxXGNmMlxmczIyXGx0 cmNoXHBhclxwYXJccGxhaW 1lNgNpJmOlMmbdII2gWRHv F8wdtOExIEQhESEjB3jlAt NavL1rnPvsIPjlIaBdBbTi MzFQd558fn0fFYZluXTiqq TQkWEvdE9bXCneFPisROnj nHYqSPtjt3eiXQNkw9z8fY PuSPNwcrUfl3yiTXxytlNm HBUpsSCyvOIlHCYar50jYL nleCzteAsoSYJmk8VhvGtc s1XyEcFhGJudn6IxC15zcP JvbCBzbGlkZXMgcnVuIGFs t25iw0gvJOCoXcL5qZAwiG Y3bKPfsYWqr5JdaOjrPMFv p3gdLRVjdt7txdrifZNlq7 ActE7kdxucGXkqlXAerbPd UELgy7i1qJKlTZFsVOYiZC kxzJi5VSYeg037fb0lxnY8 nHLsMWA7SKwnJZFsYFUblm UgZXZhbHVhdGVkXHBsYWlu XGYxXGZzMjJcbGFuZzEwMz NcaGljaFxmMVxkYmNoXGYx VCplB0glOfZdT2HpKAKyXk LnbBMqS8fowBKuBTVkGSji XGYxXGZzMjJcbGFuZzEwMz NcaGljaFxmMVxkYmNoXGYx PXbwY1afQhPcB3NkQPBjYr IgIFxwbGFpblxmMVxmczIy MRljwogyTLQjPHxkO7yaBw YtRAWzpPjxEJhlu3VcBZVc TQQwBrsxnySqOPd9nhUjBW BhclxwbGFpblxmMVxmczIy IYlyiiuzBTUsEQcaN3hgUb TsSSAbxIjdZUpss3YpRGGt XGNmMlxmczIyIEltbXVub2 fcu2JiO1lvdEjivWH6IVYp E7kzxLHjzJV0EPM4wQ8tXD rpknJmMFCts9DwVEQbEEHa ZgM3vD0fUBH0VxLNzMmrRJ BsYWluXGYxXGZzMjJcbGFu ZzEwMzNcaGljaFxmMVxkYm ZzDMFlKQysW8dzSyNgA7Jk MSGlBuSstZdfKUhdYHk0Qw xwbGFpblxmMVxmczIyXGxh xhpuOZJpESekF5umGiCuIG WkxFvpJUdld7RcLGTrBNGx MlxmczIyIHMgTWVkaWNhbC MWQN62EDHmIDIxfHwmjF5v uTDATTYqwmO6f7W6RRzxZD HvYKd2TGmwrsQiSQRwvZ8r VXOdEQ5dEKk3rjAtXAIjh0 RjCI4cIUWqbWRjLPD7WBVd x3IzH9Rrr2ZmYXFkKKNxrr 2bpbNgInXWoZTsNFHnnj02 QBClJI8hB9zbEDJuPFTqck QxrVJbc6YuTTErgZB8nHRc SW8VUyVNf36rLFYhCBIPuv HmFORpwKzlhUH7dhQ1wJ0u LiBUaGUgRkRBIGhhcyBkZX Ieko8utnEnMOHlDUDks2Pt lRZwyZIkgsGpE6Jtc0GlST Utnu07IHuekVPbfo97BY7r X9Bos4EwyK6qQQyuMCKlb2 AfcTUygFToOFHwl7WgX6kl gvueAUmbjITthE7jGVNzZO n3DLOld5RjTOFhi1QkPjQl piZfCVRhTLHkQGLwtY63PA N6sAuejEtdqzMuMK0yVJGn hpOoDPHuCXMijR8fZAiyua NhHCUbotP3o7M0BZscAWYh jpFnBvtmYYA7iuSlwlG0xT OmP8rzvuxxRKkaWXPwe0Lz tR7ajAOIkCBfm7DbgRMnaU NEaBPtKK9fidOpVU9fFAR9 ODggKENMSUEtODgpIGFzIH B9EJioSybqUJE4koSjDIPd v1XnNHjbQ9hzV47drTbpqS h1tHEpzImueMVbiIFkRRUy xeH2o3G7MMIit6RkieiuKI BsYWluXGYyXGZzMjJcbGFu ZzEwMzNcaGljaFxmMlxkYm IxNQIaCDkuS9phLmFjPyNi WiqkOCQ0xU== [facility] [id number] 16:47:26Surgical Pathology Report Case: [id number] Authorizing Provider: Nathaniel Dooley MD Collected: 02/26/2022 04:38 PM Ordering Location: [address] Received: 02/27/2022 07:57 AM Service Pathologist: Gene Carlton MD Specimen: Cervix CERVIX, MASS, 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 The tumor shows focal necrosis, however, there is no cervical stroma present to evaluate for invasion.[id number] y.o. female who is incarcerated with PMHx [...] evaluated Immunohistochemistry technical testing was performed at [facility], Pathology Laboratory where it was [...] to perform high complexity clinical laboratory testing.Prepare [id number] 23:54:00 Test Item Value Reference Range Interpretation Comments Unit ABO (test code = A Pos 2774330) UNIT NUMBER (test code = [id number] 934-0) Status (test code = 1011591) TX_TIMEINCHART Blood Bank Product (test code RED BLOOD CELLS = 2263) PRODUCT CODE (test code = I5454G88 933-2) CROSSMATCH (test code = 2264) COMPATIBLE [facility] [id number] 23:54:00 Test Item Value Reference Range Interpretation Comments Unit ABO (test code = A Pos 3953054) UNIT NUMBER (test code = [id number] 934-0) Status (test code = 8359760) TX_TIMEINCHART Blood Bank Product (test code RED BLOOD CELLS = 2263) PRODUCT CODE (test code = F3861M91 933-2) CROSSMATCH (test code = 2264) COMPATIBLE [facility] [id number] 23:54:00 Test Item Value Reference Range Interpretation Comments Unit ABO (test code = A Pos 7889737) UNIT NUMBER (test code = [id number] 934-0) Status (test code = 7710970) TX_TIMEINCHART Blood Bank Product (test code RED BLOOD CELLS = 2263) PRODUCT CODE (test code = J7831U81 933-2) CROSSMATCH (test code = 2264) COMPATIBLE [facility] [id number] 23:54:00 Test Item Value Reference Range Interpretation Comments Unit ABO (test code = A Pos 7503238) UNIT NUMBER (test code = [id number] 934-0) Status (test code = 7255318) TX_TIMEINCHART Blood Bank Product (test code RED BLOOD CELLS = 2263) PRODUCT CODE (test code = H8024T80 933-2) CROSSMATCH (test code = 2264) COMPATIBLE [facility] [id number] 23:54:00 Test Item Value Reference Range Interpretation Comments Unit ABO (test code = A Pos 0349641) UNIT NUMBER (test code = [id number] 934-0) Status (test code = 5752521) TX_TIMEINCHART Blood Bank Product (test code RED BLOOD CELLS = 2263) PRODUCT CODE (test code = F9138J19 933-2) CROSSMATCH (test code = 2264) [facility] [id number] 23:54:00 Test Item Value Reference Range Interpretation Comments Unit ABO (test code = A Pos 8539167) UNIT NUMBER (test code = [id number] 934-0) Status (test code = 7374456) [facility] (test code RED BLOOD CELLS = 2263) PRODUCT CODE (test code = R0196X65 933-2) CROSSMATCH (test code = 2264) [facility] [id number] 23:54:00 Test Item Value Reference Range Interpretation Comments Unit ABO (test code = A Pos 6378307) UNIT NUMBER (test code = [id number] 934-0) Status (test code = 6506570) [facility] Blood Bank Product (test code RED BLOOD CELLS = 2263) PRODUCT CODE (test code = V2256M86 933-2) CROSSMATCH (test code = 2264) [facility] CenterINCUBATED 1:1 MIXING [id number] 14:04:42 Test Item Value Reference Range Interpretation Comments IMMEDIATE PT (BEAKER) 13.6 seconds 11.7-14.7 (test code = 1487) IMMEDIATE PTT (BEAKER) 26.4 seconds 22.5-36.0 (test code = 1488) IMMEDIATE 1:1 MIX PT 13.2 seconds 11.7-14.7 (BEAKER) (test code = 8958446480) IMMEDIATE 1:1 MIX PTT 27.5 seconds 22.5-36.0 (BEAKER) (test code = 5866204643) 1:1 MIX, 1 HOUR INC PT 13.4 seconds (BEAKER) (test code = 1501) 1:1 MIX, 1 HOUR INC PTT 27.3 seconds (BEAKER) (test code = 1502) MIXING STUDY PATHOLOGIST Normal PT and PTT INTERPRETATION (BEAKER) at baseline and (test code = 8166359544) after incubation. MHEK-GMYULUNNXUM-1283 Christina Lelenwa, M.D (BEAKER) (test code = (electronic 2603) signature) FACTOR 9 [id number] 10:15:32 Test Item Value Reference Range Interpretation Comments FACTOR IX ACTIVITY (BEAKER) (test 157.0 % 60.0-150.0 H code = 666) FACTOR 8 [id number] 10:15:32 Test Item Value Reference Range Interpretation Comments FACTOR VIII ACTIVITY (BEAKER) (test 377.0 % 45.0-150.0 H code = 663) [id number] 05:22:17 Test Item Value Reference Range Interpretation Comments FERRITIN (BEAKER) (test code = 18.37 ng/mL 5.00-275.00 361) Milking Worker ID - LETTY GBASIC METABOLIC [id number] 05:15:22 Test Item Value Reference Range Interpretation [...] not appl icable for dialysis patien ts Milking Worker ID - LETTY [id number] 05:15:22 Test Item Value Reference Range Interpretation Comments MAGNESIUM (BEAKER) (test code = 1.9 mg/dL 1.6-2.6 627) Milking Worker ID Gonzalez SAENZ [id number] 05:15:22 Test Item Value Reference Range Interpretation Comments PHOSPHORUS (BEAKER) (test code = 4.2 mg/dL 2.3-4.7 604) Milking Worker ID - LETTY SUMMERS, TIBC, % SAT. (WITHOUT FERRITIN)2022-02-27 05:01:35 Test Item Value Reference Range Interpretation Comments IRON (BEAKER) (test code = 547) 52.0 ug/dL 40.0-160.0 TOTAL IRON BINDING CAPACITY 211 ug/dL 250-450 L (BEAKER) (test code = 769) IRON % SATURATION (2) (BEAKER) 25 % 20-55 (test code = 2590) Milking Worker ID Gonzalez SAENZ GCBC (HEMOGRAM ONLY)2022-02-27 04:46:45 Test Item Value [...] WBC 0-0 (BEAKER) (test code = 413) [id number] 15:28:00 Test Item Value Reference Range Interpretation [...] Hematology (test Appears Adequate code = PCOMMENT) Ozxmdfqrxh5450-79-27 15:28:00 Test Item Value Reference Range Interpretation Comments Hematology (test code Clinic al History: 36 y/o F = PATH) with abdominal pain and vaginalbleeding .Microscopi c examination:W BC: Morpholgically unremarkable leukocytes.RBC: Significanlty d ecreased in number with hyp ochromia andpolychromasi a.PLT: Morphologically unremarkable.Im pression: Marked normocyt ic anemia. Clinical correl ationis recommended.Chr istopher Wilver, [facility] code 15221 Molecular Testing [id number] 12:09:00 Test Item Value Reference Range Interpretation [...] in the absence of viable organism s. PT/[id number] 08:47:17 Test Item Value Reference Range Interpretation [...] 0-0 (BEAKER) (test code = 413) RETICULOCYTE [id number] 07:50:02 Test Item Value Reference Range Interpretation Comments RETICULOCYTE COUNT PCT (BEAKER) (test 2.1 % 0.5-1.7 H code = 575) Milking Worker ID - [id number] AND DAQBNDCRRL3258-16-98 05:48:24 Test Item Value Reference Range Interpretation Comments HEMOGLOBIN (BEAKER) (test code = 8.4 GM/DL 11.2-15.7 L 410) HEMATOCRIT (BEAKER) (test code = 24.4 % 34.1-44.9 L 411) Milking Worker ID - [id number], [id number] 04:24:58 Test Item Value Reference Range Interpretation Comments CALCIUM IONIZED (BEAKER) (test 1.05 mmol/L 1.12-1.27 L code = 698) PH, BLOOD (BEAKER) (test code = 7.42 1810) SARS-CoV2/RT-PCR (Asymptomatic ONLY)2022-02-26 00:54:18 Test Item Value Reference Interpretation Comments Range SARS-COV2/RT-PCR Negative Negative The SARS-Co V-2 (test code = target nucleic 60381-3) acids are not detected in thi s [...] revoked sooner. Fact Sheet for Healthcare Providers: https://www.[employer]Documents/Xp ert%20Xpress%20SAR S%20CoV-2/Fact%20S heets/302-3802%20S ARS-COV-2%20HEALTH CARE%20PROVIDERS%2 0FACT%20SHEET.pdf Fact Sheet for Healthcare Patients: https://www.[employer]Documents/Xp ert%20Xpress%20SAR S%20CoV-2/Fact%20S heets/302-3801%20S ARS-COV-2%20PATIEN T%20FACT%20SHEET.p df Lab Interpretation Normal (test code = 51756-5) [facility]26 00:54:18 Test Item Value Reference Interpretation Comments Range SARS-COV2/RT-PCR Negative Negative The SARS-Co V-2 (test code = target nucleic 87910-0) acids are not detected in thi s [...] revoked sooner. Fact Sheet for Healthcare Providers: https://www.[employer]Documents/Xp ert%20Xpress%20SAR S%20CoV-2/Fact%20S heets/302-3802%20S ARS-COV-2%20HEALTH CARE%20PROVIDERS%2 0FACT%20SHEET.pdf Fact Sheet for Healthcare Patients: https://www.[employer]Documents/Xp ert%20Xpress%20SAR S%20CoV-2/Fact%20S heets/302-3801%20S ARS-COV-2%20PATIEN T%20FACT%20SHEET.p df Lab Interpretation Normal (test code = 59827-7) [facility]2022-02-26 00:54:18 Test Item Value Reference Interpretation Comments Range SARS-COV2/RT-PCR Negative Negative The SARS-Co V-2 (test code = target nucleic 72986-4) acids are not detected in thi s [...] revoked sooner. Fact Sheet for Healthcare Providers: https://www.[employer]Documents/Xp ert%20Xpress%20SAR S%20CoV-2/Fact%20S heets/302-3802%20S ARS-COV-2%20HEALTH CARE%20PROVIDERS%2 0FACT%20SHEET.pdf Fact Sheet for Healthcare Patients: https://www.[employer]Documents/Xp ert%20Xpress%20SAR S%20CoV-2/Fact%20S heets/302-3801%20S ARS-COV-2%20PATIEN T%20FACT%20SHEET.p df Lab Interpretation Normal (test code = 98503-8) [facility]2022-02-26 00:54:18 Test Item Value Reference Interpretation Comments Range SARS-COV2/RT-PCR Negative Negative The SARS-Co V-2 (test code = target nucleic 85800-3) acids are not detected in thi s [...] revoked sooner. Fact Sheet for Healthcare Providers: https://www.[employer]Documents/Xp ert%20Xpress%20SAR S%20CoV-2/Fact%20S heets/302-3802%20S ARS-COV-2%20HEALTH CARE%20PROVIDERS%2 0FACT%20SHEET.pdf Fact Sheet for Healthcare Patients: https://www.[employer]Documents/Xp ert%20Xpress%20SAR S%20CoV-2/Fact%20S heets/302-3801%20S ARS-COV-2%20PATIEN T%20FACT%20SHEET.p df Lab Interpretation Normal (test code = 38470-6) [facility]2022-02-26 00:54:18 Test Item Value Reference Interpretation Comments Range SARS-COV2/RT-PCR Negative Negative The SARS-Co V-2 (test code = target nucleic 99718-4) acids are not detected in thi s [...] om SARS-CoV-2 in a nasopharyngeal swab specimen [facility] from individual s suspected of COVID-19 [...] revoked sooner. Fact Sheet for Healthcare Providers: https://www.[employer]Documents/Xp ert%20Xpress%20SAR S%20CoV-2/Fact%20S heets/302-3802%20S ARS-COV-2%20HEALTH CARE%20PROVIDERS%2 0FACT%20SHEET.pdf Fact Sheet for Healthcare Patients: https://www.[employer]Documents/Xp ert%20Xpress%20SAR S%20CoV-2/Fact%20S heets/302-3801%20S ARS-COV-2%20PATIEN T%20FACT%20SHEET.p df Lab Interpretation Normal (test code = 02819-8) [facility]2022-02-26 00:54:18 Test Item Value Reference Interpretation Comments Range SARS-COV2/RT-PCR Negative Negative The SARS-Co V-2 (test code = target nucleic 86433-9) acids are not detected in thi s [...] revoked sooner. Fact Sheet for Healthcare Providers: https://www.[employer]Documents/Xp ert%20Xpress%20SAR S%20CoV-2/Fact%20S heets/302-3802%20S ARS-COV-2%20HEALTH CARE%20PROVIDERS%2 0FACT%20SHEET.pdf Fact Sheet for Healthcare Patients: https://www.[employer]Documents/Xp ert%20Xpress%20SAR S%20CoV-2/Fact%20S heets/302-3801%20S ARS-COV-2%20PATIEN T%20FACT%20SHEET.p df Lab Interpretation Normal (test code = 58432-8) [facility]2022-02-26 00:54:18 Test Item Value Reference Interpretation Comments Range SARS-COV2/RT-PCR Negative Negative The SARS-Co V-2 (test code = target nucleic 26147-3) acids are not detected in thi s [...] revoked sooner. Fact Sheet for Healthcare Providers: https://www.[employer]Documents/Xp ert%20Xpress%20SAR S%20CoV-2/Fact%20S heets/302-3802%20S ARS-COV-2%20HEALTH CARE%20PROVIDERS%2 0FACT%20SHEET.pdf Fact Sheet for Healthcare Patients: https://wwwGl[employer]/Documents/Xp ert%20Xpress%20SAR S%20CoV-2/Fact%20S heets/302-3801%20S ARS-COV-2%20PATIEN T%20FACT%20SHEET.p df Lab Interpretation Normal (test code = 92393-9) [facility])2022-02-26 00:54:18 Test Item Value Reference Range Interpretation Comments SARS-COV2/RT-PCR Negative Negative The SARS-Co V-2 target (test code = nucleic acids a re not 6527747) detected in thi s specimen. Negative result [...] revoked sooner. Fact Sheet for Healthcare Providers: https://www.[employer]/Documents/Xpert%20Xpress%20SARS%20CoV-2/Fact%20Sheets/302-3802%25ISHK-GKT-1%20 HEALTHCARE%20PROVIDERS%20FACT%20SHEET.pdf Fact Sheet for Healthcare Patients: https://www.[employer]/Documents/Xpert%20Xp ress%20SARS%20CoV-2/Fact%20Sheets/3023801%89KAQT-TGO-0%20PATIENT%20FACT%20SHEET .pdfCOMPREHENSIVE METABOLIC [id number] 22:35:11 Test Item Value Reference Range Interpretation [...] not appl icable for dialysis patien ts Milking Worker ID - [id number] 22:34:35 Test Item Value Reference Range Interpretation Comments MAGNESIUM (BEAKER) 2.1 mg/dL 1.6-2.6 Specimen slightly (test code = 627) hemolyzed Milking Worker ID - BSPROTHROMBIN TIME/[id number] 22:30:47 Test Item Value Reference Range Interpretation Comments PROTIME (BEAKER) 15.3 seconds 11.9-14.2 H (test code = 759) INR (BEAKER) (test 1.28 See_Comment [Automat ed message] code = 370) The system [employer] generated this result transmitted ref erence range: <=5.90. The reference range was not used to int erpret this result as normal/abnormal . RECOMMENDED COUMADIN/WARFARIN INR THERAPY RANGESSTANDARD DOSE: 2.0 - 3.0 Includes: PROPHYLAXIS for venous thrombosis, systemic embolization; TREATMENT for venous thrombosis and/or pulmonary embolus.HIGH RISK: Target INR is 2.5-3.5 for patients with mechanical heart valves.CBC W/PLT COUNT & AUTO [id number] 22:15:27 Test Item Value Reference Range Interpretation [...] (test code = 2801) P[employer] Cells - Rnjbgsjhukid9937-68-62 21:30:[id number] ON LRPC TRANSFUSED 02/25/22 1155 [id number] AP LRPC TRANSFUSED 02/25/22 1318 [id number] AP LRPC TRANSFUSED 02/25/22 1529Type Wnpizy1967-25-11 21:30:00 Test Item Value Reference Range Interpretation [...] from now? NOVaginitis Panel 3 by DNA [id number] 17:54:00 Test Item Value Reference Range Interpretation Comments Vaginitis Panel 3 by DNA Probe VPIIICANDI (test code = VP3) Vaginitis Panel 3 by DNA Probe N (test code = VP31) Vaginitis Panel 3 by DNA Probe VPIIITRICH (test code = VP31) Jpppilckfg8762-51-62 17:33:00 Test Item Value Reference Range Interpretation [...] code = BASO#) 0.0 thou/uL 0.0-0.2 N Wckakdqbrt0856-36-95 16:38:00 Test Item Value Reference Range Interpretation [...] Seen UABAC) Urine Source: Urine VoidedMolecular Testing [id number] 15:14:00 Test Item Value Reference Range Interpretation Comments Molecular Testing Not Detected NotDetected Performanc e of the MM (test code = Cepheid SARS -CoV-2 has QIQBQ20JCDRC) only beenestab lished in nasopharyngeal swab specimens. [...] Test: UnknownHospitalized: UnknownICU: UnknownDate of Symptom Onset: [id number]: UnknownReason for Testing: Admission ScreeningSource: Nasopharyngeal SwabSymptomatic [...] add on to prior labsRetype Verify-Blood Type [id number] 12:14:00 Test Item Value Reference Range Interpretation Comments Blood Type Rh (test code = BT) A POSITIVE Qxtrymazf6710-93-44 11:38:00 Test Item Value Reference Range Interpretation [...] EGFRCR) Estimated GFR: Greater than 90 mL/min/1.73 a1Badmsmhr eGFR is based on the CKD-EPI 202 [...] code 8 U/L 8-55 N = ALT) Qsibxvqnb4715-94-24 11:38:00 Test Item Value Reference Range Interpretation Comments Chemistry (test code = LIP) 13 U/L 8-78 N Chemistry - [id number] 11:37:00 Test Item Value Reference Range Interpretation Comments Chemistry - Lactate (test code = 1.9 mmol/L 0.5-2.2 N LACTSEP-T) HGB [id number] 18:56:00 Test Item Value Reference Range Interpretation Comments HEMOGLOBIN (test code = HGB) 10.0 G/DL 12.0-16.0 L HEMATOCRIT (test code = HCT) 30.3 % 37-47 L MEAN CELL HGB CONCENTRATION (test 33.0 G/DL 33-37 N code = MCHC) - DUP AB/PEL/SC [id number] 18:20:00 [facility] 1985 Sex: F Patient Name: YULIYA LARA Unit No: [id number] EXAMS: CPT CODE: [id number] DUP AB/PEL/SC COMP 87701 EXAMINATION: - DUP AB/PEL/SC COMP, - US TRANSVAGINAL NON OB, - US PELVIC COMPLETE INDICATION: BLEEDING COMPARISON: None available at time of dictation LOCATION: [facility] TECHNIQUE: Grayscale and color Doppler and [...] Orig Print D/T: S: 10/11/2021 (1822) Probe: [facility] NAME: YULIYA LARA [address] PHYS: [id number] - D[place] [address] : 1985 AGE: 36 SEX: F LOC: SHERRI PHONE #: [phone] EXAM DATE:10/11/2021 STATUS: REG ER FAX #: RAD NO: Page 1 Signed Report- US PELVIC [id number] 18:20:00 [facility] : 1985 Sex: F Patient Name: YULIYA LARA Unit No: [id number] EXAMS: CPT CODE: [id number] US PE LVIC COMPLETE 13419 EXAMINATION: - DUP AB/PEL/SC COMP, - US TRANSVAGINAL NON OB, - US PELVIC COMPLETE INDICATION: BLEEDING COMPARISON: None available at time of dictation LOCATION: [facility] TECHNIQUE: Grayscale and color Doppler and [...] D/T: S: 10/11/2021 (1822) Probe: [facility] NAME: YULIYA LARA [address] PHYS: [place] [address] : 1985 AGE: 36 SEX: F LOC: SHERRI PHONE #: [phone] EXAM DATE: 10/11/2021 STATUS: REG ER FAX #: RAD NO: Page 1 Signed Report- US TRANSVAGINAL NON [id number] 18:20:00 [facility] : 1985 Sex: F Patient Name: YULIYA LARA Unit No: [id number] EXAMS: CPT CODE: [id number] [place] [address] EXAMINATION: - DUP AB/PEL/SC COMP, - US [...] DO Technologist: Sanjuanita Woo Trnscrbd D/ (1819) [id number] Print D/T: S: 10/11/2021 (1822) Probe: [id number] [facility] NAME: YULIYA LARA [address] PHYS: Shea Gabriel [place] [address] : 1985 AGE: 36 SEX:F LOC: SHERRI PHONE #: [phone] EXAM DATE: 10/11/2021 STATUS: REG ER FAX #: RAD NO: Page 1 Signed [id number] 17:27:00 Test Item Value Reference Range Interpretation Comments GLUBED (test code = 80 MG/DL 65-99 N Performe d by certified 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 UnknownTHROMBOPLASTIN TIME [id number] 14:40:00 Test Item Value Reference Range Interpretation Comments THROMBOPLASTIN TIME 30.9 SECONDS 24.7-38.0 N *Therap eutic level PARTIAL (test code = for hep felecia: 1.5 - PTT) 2.5 times the average patient value of 30.0 seconds. The aP TT tet should not be used to evaluat e low moleculat weigh t heparin anticoagulant therapy. Is patient on anticoagulants? UnknownCOMPREHENSIVE METABOLIC [id number] 14:34:00 Test Item Value Reference Range Interpretation [...] TOTAL (test code = ALKP) TROP-I HIGH [id number] 14:34:00 Test Item Value Reference Range Interpretation [...] taking high doses of Biotin. HCG SERUM [id number] 14:27:00 Test Item Value Reference Range Interpretation [...] using aquantitative h CG assay. CBC W/AUTO [id number] 14:24:00 Test Item Value Reference Range Interpretation [...] x10 3/uL 0.0-0.2 N AG HEPATITIS B [id number] 12:39:00 Test Item Value Reference Range Interpretation Comments AG HEPATITIS B SURFACE (test code = Negative Negative HBSAG) AB RUBELLA [id number] 12:39:00 Test Item Value Reference Range Interpretation Comments AB RUBELLA IGG (test code = RUBGAB) 1.77 IMMUNE >0.99 HIV 1 2 COMBO AG/AB [id number] 12:39:00 Test Item Value Reference Range Interpretation Comments HIV 1 2 COMBO AG/AB Non Reactive NonReactive HIV 4th Generation SCREEN (test code = Detects HIV-specific DZV83QDBZP) antibodies and HIV-p24 antigen. 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 SRCIST) RAPID PLASMA [id number] 09:39:00 Test Item Value Reference Range Interpretation Comments RAPID PLASMA REAGIN (test code = Nonreactive Nonreactive RPR) HIV 1/2 RAPID [id number] 09:39:00 Test Item Value Reference Range Interpretation Comments HIV 1/2 RAPID SCREEN (test code = NonReactive NonReactive COQ80TUE) RAPID PLASMA [id number] 09:17:00 Test Item Value Reference Range Interpretation Comments RAPID PLASMA REAGIN (test code = RPR) Nonreactive HIV 1/2 RAPID [id number] 09:17:00 Test Item Value Reference Range Interpretation Comments HIV 1/2 RAPID SCREEN (test code = NonReactive NonReactive YTJ45KCB) DRUG OF ABUSE SCREEN [id number] 06:33:00 Test Item Value Reference Interpretation Comments [...] by scott mazariegos methods (i.e., GC/MS) at [facility]. Results of scre en may not be usedin crimi nal justice, job performance or professionalcre dential review, or infa nt custody issues. Negativ e [place] Level ng/ml ------- ----- Cocaine 300 Methamphetamine (Ecstacy) 500 Cannabinoid s (THC) 50 Amphetamine 100 0 Barbiturates 20 0 Benzodiazepines 200 Opiates 300 Phencyclid ine (PCP) 25 UA RFLX [id number] 05:46:00 Test Item Value Reference Range Interpretation [...] URINE SOURCE: Clean CatchCOVID 19 Asymptomatic IH [id number] 05:13:00 Test Item Value Reference Interpretation Comments [...] allows for the detection o f SARS-CoV lzaIHNO-BmC-6. The test detects, but does not differentiate,b etween the two viruses. " Resu lts are for the identification of RGMX-WpT-4aizdn ocapsid protein antigen. Antige n is generallydetect [...] Compliance, or Certificate of Accreditation CBC W/AUTO [id number] 05:00:00 Test Item Value Reference Range Interpretation [...] X10 3/uL 0.0-0.2 N NRBC#) AB RUBELLA [id number] 08:19:00 Test Item Value Reference Range Interpretation Comments AB RUBELLA IGG (test 1.22 index Immune >0.99 Non-im mune <0.90 code = RUBGAB) Equivocal 0.9 0 - 0.99 Immune >0.99Per formed At: [facility] [address] [place], [place] [id number] Edwige Schmidt MD Ph:[phone] [id number] 06:07:00 Test Item Value Reference Range Interpretation Comments HEMATOCRIT (test code = HCT) 32.0 % 37-47 L ISTAT CORD [id number] 20:50:00 Test Item Value Reference Range Interpretation [...] Performe d by certified (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 Results US Pelvic Transvag W Doppler [...] 03/18/222125 Transcribed Date/Time:CT Abdomen Pelvis W Con [facility] : 1985 [facility] YULIYA HAMILTON [address] Phys: [place] [address] : 1985 Age: 36 SEX:F [phone] Exam Date:03/18/22 Status: REG ER Acct: [id number] Loc: [facility] Pt Unit #: [id number] Report #: [id number] CC: EDTEMP PROVIDER Boy Ndiaye MD CAT SCAN REPORT Report Status: Signed Order # Category/Exam [id number] CT/CT Abdomen Pelvis W Con ([id number]): . Results CT Abdomen Pelvis W Con [...] Luna MD Electronically Signed Date/Time: 03/18/221949 Technologist: IMAG.FV Dictated Date/Time: 03/18/226 Transcribed Date/Time:XR Chest [facility] View [facility]able [facility] : 1985 [facility]: YUL[facility]YA HAMILTON [address] Phys: [place] [address] : 1985 Age: 36 SEX:F [phone] Exam Date:03/18/22 Status: REG ER Acct: [id number] Loc: [facility] Pt Unit #: [id number] Report #: [id number] CC: Boy Ndiaye MD IMAGING SERVICES REPORT Report Status: Signed Order # Category/Exam [id number] RAD/XR Chest 1 View Portable ([id number]): . Results XR Chest 1 View Portable [...] 1985 [facility]: YUL[facility]YA PHILIP [address] [facility] Phys: [place] [address] : 1985 Age: 36 SEX:F Exam Date: 03/10/22 Status: ADM IN Acct: [id number] Loc: [facility] Pt Unit #: [id number] Report #: [id number] CC: Narcisa Ruiz MD MRI REPORT Report Status: Signed Order # Category/Exam [id number] MRI/MRI Pelvis W WO Con ([id number]): . Results MRIPelvis W WO Con History: Cervical mass Comparison: [...] Name: YULIYA PHILIP : 1985 Sex: [facility] Pt Name: YULIYA PHILIP [address] [facility] Phys: Gurmeet Naylor III, [place] [address] : 1985 Age: 36 SEX:F Exam Date: 03/09/22 Status: ADM IN Acct: [id number] Loc: [facility] Pt Unit #: [id number] Report #: [id number] CC: Bárbara Lemons MD, III, Joe MD ULTRASOUND REPORT Report Status: Signed Order # Category/Exam [id number] ULT/US Renal Bilateral STANDARD ([id number]): . Results US Renal Bilateral STANDARD HISTORY: [...] 03/09/221714 Transcribed Date/Time:US Pelvic Transvag W Doppler [facility] : 1985 [facility]: YULIYA PHILIP [address] Phys: [place] [address] : 1985 Age: 36 SEX:F [phone] Exam Date: 03/09/22 Status: DEP ER Acct: [id number] Loc: [facility] Pt Unit #: [id number] Report #: [id number] CC: Livier Carver MD ULTRASOUND REPORT Report Status: Signed Order # Category/Exam [id number] ULT/US Pelvic Transvag W Doppler ([id number]): . Results PRELIMINARY REPORT EXAM: US Pelvis, Complete. CLINICAL HISTORY: HX: VAG BLEEDING, CERVICAL MASS. SEE NOTES ON LAST IMAGE. THANKS TECHNIQUE: Transvaginal and transabdominal pelvic ultrasound (complete) with image documentation. 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 UTERUS/CERVIX: Measures 9.5 [...] Medina MD Mar 09, 2022 5:24:05 AM BRAZING MACHINE OPERATOR AUTOMATIC US Pelvic Transvag W Doppler HISTORY: Vaginal [...] 03/09/2022 10:10 AM Reported By: Amalia Luna Electronically Signed Date/Time: 03/09/22 1242 Technologist: DEANGELO Dictated Date/Time: 03/09/22 0756 Transcribed Date/Time:CT Abdomen Pelvis W Con [facility] [place] TAMERA YULIYA : 1985 [facility] Pt Name: YULIYA PHILIP [address] Phys: Livier Carver MD [place] [id number] : 1985 Age: 36 SEX:F [phone] Exam Date: 03/09/22 Status: DEP ER Acct: [id number] Loc: ERS Pt Unit #: [id number] Report #: [id number] CC: Livier Carver MD CAT SCAN REPORT Report Status: Signed Order # Category/Exam [id number] CT/CT Abdomen Pelvis W Con ([id number]): . Results PRELIMINARY REPORT EXAM: CT Abdomen [...] with a pelvic mass was transferred to [facility] for further evaluation and treatment. Patient is [...] not already recently obtained. 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 AUTOMATIC CT Abdomen Pelvis W Con HISTORY: Pelvic [...] 0811 Transcribed Date/Time:XR Chest 1 View Portable [facility] : 1985 [facility]: [facility] C3 Metrics Phys: ER* STANDING MEDICAL DOC ORDER BRITTNEY Vitale [address] : 1985 Age: 36 SEX:F [phone] Exam Date: 03/08/22 Status: REG ER Acct: [id number] Loc: ERS Pt Unit #: [id number] Report #: [id number] CC: ER* STANDING MEDICAL DOC ORDER IMAGING SERVICES REPORT Report Status: Signed Order # Category/Exam [id number] RAD/XR Chest 1 View Portable ([id number]): . Results XR Chest 1 View Portable History: Chest pain Comparison: None. Findings: Lungs are clear. No pneumothorax. No effusion. No acute osseous abnormality. Impression: No acute intrathoracic abnormality. Reported By: SALEEM MCGILL Electronically Signed Date/Time: 03/08/222345 Technologist: LIZETT Dictated Date/Time: 03/08/222339 Transcribed Date/Time:US Pelvic Transvag W Doppler [facility] BRYANName: YULIYA HAMILTON : 1985 [facility]: [facility]YA HAMILTON [address] C3 Metrics Phys: [place] [address] : 1985 Age: 36 SEX:F [phone] Exam Date: 02/25/22 Status: REG ER Acct: [id number] Loc: ERS Pt Unit #: [id number] Report #: [id number] CC: SheilaLouisa DO ULTRASOUND REPORT Report Status: Signed Order # Category/Exam [id number] ULT/US Pelvic Transvag W Doppler ([id number]): . Results Exam: Pelvic ultrasound including Transvaginal, [...] 02/25/22 1456 Transcribed Date/Time:XR Chest 1 View PortableCOX [facility]ANSON Lawrenceme: ANGELA LARA YULIYA COSTA : 1985 [facility] Pt Name: YULIYA HAMILTON [address] Phys: [place] [address] : 1985 Age: 36 SEX:F [phone] Exam Date: 02/25/22 Status: REG ER Acct: [id number] Loc: ERS Pt Unit #: [id number] Report #: [id number] CC: Louisa Sosa DO IMAGING SERVICES REPORT Report Status: Signed Order # Category/Exam [id number] RAD/XR Chest 1 View Portable ([id number]): . Results XR Chest 1 View Portable HISTORY: Cough COMPARISON: None FINDINGS: The heart size is normal. The lungs are well expanded without focal areas of consolidation, pneumothorax or pleural effusions. IMPRESSION: No radiographic evidence of acute cardiopulmonary process. Reported By: Mat Diaz MD Electronically Signed Date/Time: 02/25/22 112 Technologist: EVELYN Dictated Date/Time: 02/25/22 112 Transcribed Date/Time: CT Abdomen Pelvis W Con [facility]UL[facility]YA HAMILTON : 1985 [facility]: Y[facility]YA HAMIL[facility] [address] Phys: [place] [address] : 1985 Age: 36 SEX:F [phone] Exam Date: 02/25/22 Status: REG ER Acct: [id number] Loc: ERS Pt Unit #: [id number] Report #: [id number] CC: ED TEMP PROVIDER Sharer, Louisa SERRA CAT SCAN REPORT Report Status: Signed Order # Category/Exam [id number] CT/CT Abdomen Pelvis W Con ([id number]): . Results CT abdomen and pelvis with [...] 1329 T echnologist: JOAN Dictated Date/Time: 02/25/22 1324 Transcribed Date/Time:
[2022-12-25] MEDS ORDERED: ONDANSETRON 4 MG/2 ML VIAL ONE (20:53)
[2022-12-25] MEDS ORDERED: MORPHINE 4 MG/ML SYR ONE (20:53)
[2022-12-25] MEDS ORDERED: NA CHLORIDE 0.9% 1,000 ML ONE ×2 (20:53→23:52)
[2022-12-25 21:18] LABS: Hematocrit 23.2 % (36.0-45.0); Lymphocytes % 8.1 % (15.3-44.8); MCV 94.2 fL (80-100); MPV 6.6 fL (7.6-11.3); Platelets 375 thou/uL (152-406); RBC Red Blood Cell Count 2.46 M/uL (3.86-4.86)
[2022-12-25 21:21] LABS: Specific Gravity 1.018 (1.005-1.030)
[2022-12-25 21:43] LABS: Specific Gravity 1.018 (1.005-1.030); Urine Bacteria <20 /HPF (<20); Urine Bilirubin NEGATIVE (Negative); Urine Blood Trace (Negative); Urine Clarity Extremely Turbid (Clear); Urine Color Yellow (Yellow); Urine Glucose NEGATIVE (Negative); Urine Mucus Slight /HPF (None Seen); Urine Protein 1+ (Negative); Urine Triple Phosphate Crystal Few /HPF (None Seen); Urine Urobilinogen Normal (Normal); Urine WBC Clump Few /HPF (None Seen); Urine pH 7.5 (5.0-7.0)
[2022-12-25 21:45] LABS: Bilirubin Total 0.3 mg/dL (0.2-1.0); Potassium 3.6 mEq/L (3.5-5.1); Protein, Total 8.2 g/dL (6.4-8.2)
[2022-12-25] MEDS ORDERED: HALOPERIDOL LACT 5 MG/ML INJ ONE (21:57)
[2022-12-25] MEDS ORDERED: DIPHENHYDRAMINE 50 MG/ML VIAL ONE (21:57)
[2022-12-25 21:58] LABS: Blood Morphology Comment NOT SEEN (NOT SEEN); Platelet Estimate ADEQ; White Blood Cell Scan OK (OK)
--- NOTE | 2022-12-25 22:57 | RAD REPORT ---
EXAM DESCRIPTION: CT - Abdomen Pelvis W Contrast - 12/25/2022 10:15 pm CLINICAL HISTORY: ABD PAIN COMPARISON: No comparisons TECHNIQUE: Thin cut axial CT imaging of the abdomen and pelvis was performed following intravenous a dministration of 75 mL Isovue 300. Multiplanar reformats were generated and reviewed. All CT scans are performed using dose optimization technique as appropriate and may include automated exposure control or mA/KV adjustment according to patient size. FINDINGS: No suspicious findings in the lung bases. The liver, spleen, and pancreas show no suspicious findings. Gallbladder and biliary tree are also wi thout suspicious finding. Bilateral percutaneous nephrostomy tubes in place. Symmetric renal function is seen with no hydroneph rosis or suspicious renal mass. No dilated bowel loops or bowel wall thickening. No free air, free fluid or inflammatory stranding. N o hernia, mass or bulky lymphadenopathy. Large heterogeneous mass involving the cervix and lower uterine segment, measuring 9.7 x 7.6 x 8.5 cm The urinary bladder is without significant finding. No suspicious bony findings. IMPRESSION: No acute intra-abdominal process. Large heterogeneous mass involving the cervix and lower uterine segment, compatible with provided his tory of cervical cancer. No suspicious adenopathy or findings to suggest distant metastatic disease i n the abdomen and pelvis. Bilateral percutaneous nephrostomy tubes in place.
--- NOTE | 2022-12-25 23:14 | EDPHYS ---
Physician Documentation [facility] Name: Jayashree Khan Age: 37 yrs Sex: Female : 1985 Arrival Date: 12/25/2022 Time: 20:15 Bed 6 Private MD: ED Physician Maciel Lynn HPI: 12/25 20:34 This 37 yrs old Female presents to ER via EMS with complaints of Pain. ec2 20:34 Patient with history of uterine cancer, cervical cancer arrives today due to concern ec2 for abdominal pain. Patient reports that she has been having chronic pain for significantly long time and recently ran out of her tramadol. Patient reports no fevers or chills, generalized abdominal pain as well as nausea. No issues with urinary problems or stool output.. 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 - Social history:: Smoking status: Patient reports the use of cigarette tobacco products, unknown amount. ROS: 20:34 Constitutional: abd pain ec2 Exam: 20:34 Constitutional: GEN: NAD Head: atraumatic Eyes: EOMI Ears: External ears are ec2 normal. CV: regular rate LUNGS: no respiratory distress ABD: non-dist nondistended, soft, no guarding, nonrigid, generally tender. SKIN: no evidence of rashes MSK: no evidence of trauma NEURO: moves all extremities equally Vital Signs: 20:16 BP 90 / 57; Pulse 98; Resp 16; Temp 98; Pulse Ox 100% ; bp 20:43 BP 113 / 76; Pulse 113; Resp 20; Pulse Ox 98% ; bp 21:50 BP 118 / 68; Pulse 98; Resp 19 S; Pulse Ox 99% on R/A; lg3 22:46 BP 95 / 60; Pulse 93; Resp 15; Pulse Ox 100% ; bp 12/26 01:00 BP 102 / 69; Pulse 94; Resp 16 S; Pulse Ox 100% on R/A; lg3 MDM: 12/25 20:23 Patient medically screened. ec2 20:34 ED course: Patient arrives today due to concern for diffuse abdominal pain. Examination ec2 remarkable for abdominal findings as noted above. Will obtain lab work, CT scan and treat the patient with IV morphine. Currently considering process for small bowel obstruction, intra-abdominal infection, general abdominal pain secondary to cancer. . 23:02 ED course: Patient's lab work is remarkable for a slight leukocytosis of 12.2, ec2 metabolic profile with appropriate electrolytes, some renal dysfunction noted with a GFR of 36. Urine is infectious appearing. CT abdomen pelvis shows no acute intra-abdominal process, has known cervical cancer. In light of the tachycardia as well as the slight leukocytosis, patient meets SIRS criteria, given concern for UTI, patient meets sepsis criteria, will add on blood cultures as well as lactic acid and give the patient antibiotics. . 23:11 ED course: Discussed case with the hospitalist, pending admission.. ec2 23:14 Data reviewed: vital signs. ec2 12/25 20:25 Order name: CBC with Diff; Complete Time: 23:01 ec2 12/25 20:25 Order name: CMP; Complete Time: 23:01 ec2 12/25 20:25 Order name: Lipase; Complete Time: 23:01 ec2 12/25 20:25 Order name: Urinalysis w/ reflexes; Complete Time: 23:01 ec2 12/25 20:25 Order name: Test, Urine; Complete Time: 23:01 ec2 12/25 21:22 Order name: CBC Smear Scan; Complete Time: 23:01 EDMS 12/25 22:20 Order name: Urine Culture EDFL 12/25 23:03 Order name: Blood Culture Adult (2) ec2 12/25 23:03 Order name: Lactate w/ 2H reflex if indic. ec2 12/25 20:25 Order name: CT Abd/Pelvis - IV Contrast Only; Complete Time: 23:01 ec2 12/25 21:41 Order name: EKG; Complete Time: 21:42 ec2 12/25 20:25 Order name: IV Saline Lock; Complete Time: 20:43 ec2 12/25 20:25 Order name: Labs collected and sent; Complete Time: 20:43 ec2 Administered Medications: 20:43 Drug: NS 0.9% IV 1000 ml IV at 1 bolus Per protocol; 1000 mL bolus Route: IV; Rate: 1 bp bolus; Site: left antecubital; 21:58 Follow up: Response: No adverse reaction; IV Status: Completed infusion; IV Intake: lg3 1000ml 20:43 Drug: Ondansetron IVP 4 mg IVP once; over 2 minutes Route: IVP; Site: left antecubital; bp 21:58 Follow up: Response: No adverse reaction lg3 20:43 Drug: morphine IVP or IV 4 mg IVP once over 4 mins Route: IVP; Infused Over: 4 mins; bp Site: left antecubital; 21:58 Follow up: Response: No adverse reaction; No change in condition; Pain is unchanged, lg3 physician notified; RASS: Restless (+1) 21:46 Drug: Haloperidol IVP 5 mg IVP once Route: IVP; Site: right forearm; lg3 21:46 Drug: diphenhydrAMINE IVP 50 mg IVP once Route: IVP; Site: right forearm; lg3 23:41 Drug: Rocephin IV 1 grams IV at calculated rate once; Given slow IV push per pharmacy lg3 instructions Route: IV; Rate: calculated rate; Site: right forearm; 12/26 00:07 Drug: NS 0.9% IV 1000 ml IV at 1 bolus Per protocol; 1000 mL bolus Route: IV; Rate: 1 jw7 bolus; Site: right forearm; Disposition Summary: 12/25/22 23:14 Hospitalization Ordered Notes: Hospitalization Status: Inpatient Admission ec2 Provider: Abhishek Gunderson Location: Telemetry/[facility] (Inpatient) ec2 Condition: Stable ec2 Problem: chronic ec2 Symptoms: have worsened ec2 Bed/Room Type: Standard ec2 Room Assignment: 230(12/26/22 01:26) kl Diagnosis - Sepsis, unspecified organism ec2 - UTI/ Urinary tract infection, site not specified ec2 - Lower abdominal pain, unspecified ec2 Forms: - Medication Reconciliation Form ec2 - SBAR form ec2 - Leadership Thank You Letter ec2 Critical care time excluding procedures: 12/25 23:04 Critical care time: Bedside Care: 30 minutes, Consultation: 5 minutes. Total time: 35 ec2 minutes Signatures: Dispatcher [employer] Emily Parekh RN RN kl Peltier, Brian, RN RN bp Diana Page, HUGO RN lg3 Bette Cheung, RN RN jw7 Maciel Lynn MD MD ec2 Corrections: (The following items were deleted from the chart) 20:17 20:17 Allergies: pcn; bp bp 12/26 01:26 12/25 23:14 ec2 kl
--- NOTE | 2022-12-25 23:14 | ER ---
Nurse's Notes [facility] Name: Jayashree Khan Age: 37 yrs Sex: Female : 1985 Arrival Date: 12/25/2022 Time: 20:15 Bed 6 Private MD: Diagnosis: Sepsis, unspecified organism;UTI/ Urinary tract infection, site not specified;Lower abdominal pain, unspecified Presentation: 12/25 20:16 Chief complaint: EMS states: ABDOMINAL AND BACK PAIN, CHRONIC 2/2 CERVICAL CANCER. bp Coronavirus screen: At this time, the client does not indicate any symptoms associated with coronavirus-19. Ebola Screen: No symptoms or risks identified at this time. Initial Sepsis Screen: Does the patient meet any 2 criteria? No. Patient's initial sepsis screen is negative. Does the patient have a suspected source of infection? No. Patient's initial sepsis screen is negative. Risk Assessment: Do you want to hurt yourself or someone else? Patient reports no desire to harm self or others. Onset of symptoms is unknown. 20:16 Method Of Arrival: EMS: [facility] bp 20:16 Acuity: WALT 3 bp Triage Assessment: 20:17 General: Appears distressed, uncomfortable, unkempt, Behavior is cooperative, bp appropriate for age, anxious. Pain: Complains of pain in back and abdomen. 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 - Social history:: Smoking status: Patient reports the use of cigarette tobacco products, unknown amount. Screenin:47 [facility] ED Fall Risk Assessment (Adult) History of falling in the last 3 months, bp including since admission No falls in past 3 months (0 pts). Abuse screen: Denies threats or abuse. Denies injuries from another. Nutritional screening: No deficits noted. Tuberculosis screening: No symptoms or risk factors identified. Assessment: 20:17 General: SEE TRIAGE NOTE. bp 20:45 General: pt moaning and hollering to self and staff at this time. lg3 21:40 General: pt continues to mitesh and ruy to self and staff very loudly. physician aware.lg3 21:40 Pain: Complains of pain in everywhere. Neuro: Anderson Agitation-Sedation Scale (RASS): lg3 +1 Restless. 22:47 Reassessment: Patient appears in no apparent distress at this time. Patient is alert, bp oriented x 3, equal unlabored respirations, skin warm/dry/pink. 12/26 01:00 Reassessment: Patient appears in no apparent distress at this time. No changes from lg3 previously documented assessment. Patient and/or family updated on plan of care and expected duration. Pain level reassessed. Patient is alert, oriented x 3, equal unlabored respirations, skin warm/dry/pink. Vital Signs: 12/25 20:16 BP 90 / 57; Pulse 98; Resp 16; Temp 98; Pulse Ox 100% ; bp 20:43 BP 113 / 76; Pulse 113; Resp 20; Pulse Ox 98% ; bp 21:50 BP 118 / 68; Pulse 98; Resp 19 S; Pulse Ox 99% on R/A; lg3 22:46 BP 95 / 60; Pulse 93; Resp 15; Pulse Ox 100% ; bp 12/26 01:00 BP 102 / 69; Pulse 94; Resp 16 S; Pulse Ox 100% on R/A; lg3 ED Course: 12/25 20:15 Patient arrived in ED. bp 20:17 Triage completed. bp 20:17 Arm band placed on. bp 20:23 Maciel Lynn MD is Attending Physician. ec2 20:37 Sonido Newton, HUGO is Primary Nurse. bp 20:59 Inserted saline lock: 22 gauge in right forearm, using aseptic technique. Blood lg3 collected. 22:20 CT Abd/Pelvis - IV Contrast Only In Process Unspecified. EDMS 22:34 Urine Culture Sent. lg3 22:47 Patient has correct armband on for positive identification. Bed in low position. Call bp light in reach. Side rails up X2. 23:13 Abhishek Gunderson MD is Hospitalizing Provider. ec2 23:30 Blood Culture Adult (2) Sent. jw7 23:30 Lactate w/ 2H reflex if indic. Sent. jw7 12/26 01:56 No provider procedures requiring assistance completed. Patient admitted, IV remains in bp place. Administered Medications: 12/25 20:43 Drug: NS 0.9% IV 1000 ml IV at 1 bolus Per protocol; 1000 mL bolus Route: IV; Rate: 1 bp bolus; Site: left antecubital; 21:58 Follow up: Response: No adverse reaction; IV Status: Completed infusion; IV Intake: lg3 1000ml 20:43 Drug: Ondansetron IVP 4 mg IVP once; over 2 minutes Route: IVP; Site: left antecubital; bp 21:58 Follow up: Response: No adverse reaction lg3 20:43 Drug: morphine IVP or IV 4 mg IVP once over 4 mins Route: IVP; Infused Over: 4 mins; bp Site: left antecubital; 21:58 Follow up: Response: No adverse reaction; No change in condition; Pain is unchanged, lg3 physician notified; RASS: Restless (+1) 21:46 Drug: Haloperidol IVP 5 mg IVP once Route: IVP; Site: right forearm; lg3 21:46 Drug: diphenhydrAMINE IVP 50 mg IVP once Route: IVP; Site: right forearm; lg3 23:41 Drug: Rocephin IV 1 grams IV at calculated rate once; Given slow IV push per pharmacy lg3 instructions Route: IV; Rate: calculated rate; Site: right forearm; 12/26 00:07 Drug: NS 0.9% IV 1000 ml IV at 1 bolus Per protocol; 1000 mL bolus Route: IV; Rate: 1 jw7 bolus; Site: right forearm; Medication: 02:01 VIS not applicable for this client. bp Intake: 12/25 21:58 IV: 1000ml; Total: 1000ml. lg3 Outcome: 23:14 Decision to Hospitalize by Provider. ec2 12/26 01:56 Condition: stable bp Instructed on the need for admit, 02:00 Admitted to Med/surg accompanied by tech, via stretcher, room 230, with chart, Report bp called to KURT 02:41 Patient left the ED. bp Signatures: Dispatcher [employer] EDMS Sonido Newton RN RN bp Gibson, Lacie, RN RN lg3 Bette Cheung RN RN jw7 Maciel Lynn MD MD ec2 Corrections: (The following items were deleted from the chart) 12/25 20:17 20:17 Allergies: pcn; bp bp 21:49 20:45 General: pt moaning and careyering to self and staff at this time. lg3 lg3 21:50 21:40 General: pt continues to careyer and moan to self and staff very loudly. physician lg3 aware. lg3
[2022-12-25] MEDS ORDERED: CEFTRIAXONE 1000 MG/VIAL ONE (23:52)
--- NOTE | 2022-12-25 23:59 | P.HP ---
Certification for Inpatient Patient admitted to: Inpatient With expected LOS: <2 Midnights Patient will require the following post-hospital care: None Practitioner: I am a practitioner with admitting privileges, knowledge of patient current condition, hospital course, and medical plan of care. Services: Services provided to patient in accordance with Admission requirements found in Title 42 Section 412.3 of the Code of Federal Regulations Patient History Date of Service: 12/26/22 Reason for admission: Abdominal pain History of Present Illness: 37-year-old female with a past medical history of cervical cancer, uterine cancer, renal failure, stomach cancer anemia, cholelithiasis, treatment noncompliance presents to the emergency room with abdominal pain. She reports associated nausea vomiting that is worse with p.o. intake. She reports frequent hospitalizations due to acute on chronic acute cystitis, and chronic pain from ovarian cancer. Reports associated bilateral nephrostomy tubes. She reports multiple admissions last admissions she was transferred to [facility], for uterine abscess, fistulas. She denies use of chemoradiation previously. She denies chest pain, shortness of breath, fever, chills, dysuria. Plan to admit for acute on chronic cystitis secondary to bilateral nephrostomy tubes, ovarian cancer, lower abdominal pain. Vital signsgns: Laboratory evaluation BP 90 / 57; Pulse 98; Resp 16; Temp 98; Pulse Ox 100% leukocytosis 12.0, early left shift acute on chronic kidney injury BUN 23 creatinine 1.82, hyper albumin 3.0 UA positive for acute cystitis with greater than 500 leukoesterase 5-10 red blood cells, greater than 50 white blood cells, CT of the abdomen pelvis IMPRESSION: No acute intra-abdominal process.Large heterogeneous mass involving the cervix and lower uterine segment, compatible with provided history of cervical cancer. No suspicious adenopathy or findings to suggest distant metastatic disease in the abdomen and pelvis.Bilateral percutaneous nephrostomy tubes in place. Allergies Penicillins Allergy (Intermediate, Verified 01/02/13 12:26) Hives/Rash Home Medications: NK [No Home Meds] 10/19/11 - Past Medical/Surgical History -: Cervical cancer -: Stomach cancer -: Chronic UTIs -: Bilateral nephrostomy tubes - Social History Smoking Status: Current some day smoker Alcohol use: No CD- Drugs: No Caffeine use: Yes Place of Residence: Home Review of Systems 10-point ROS is otherwise unremarkable Physical Examination - Physical Exam General: Alert, In no apparent distress, Oriented x3 HEENT: Atraumatic, Normocephalic, PERRLA Neck: Supple, 2+ carotid pulse no bruit Respiratory: Clear to auscultation bilaterally, Normal air movement Cardiovascular: No edema, Normal pulses, Regular rate/rhythm Capillary refill: <2 Seconds Gastrointestinal: Normal bowel sounds, Tenderness Neurological: Normal speech, Normal strength at 5/5 x4 extr, Normal tone Urinary: Other (Bilateral nephrostomy tubes) - Studies Laboratory Data (last 24 hrs) 12/25/22 12/25/22 20:58 20:58 WBC 12.20 H Hgb 8.0 L Hct 23.2 L Plt Count 375 Sodium 135 L Potassium 3.6 BUN 23 H Creatinine 1.82 H Glucose 105 Total Bilirubin 0.3 AST 8 L ALT 11 L Alkaline Phosphatase 87 Lipase 15 Assessment and Plan - Plan Assessment and plan Treatment noncompliance Chronic abdominal pain secondary cervical cancer, uterine cancer, stomach cancer Bilateral nephrostomy tubes Acute on chronic cystitis acute acute on chronic kidney injury IV fluids, IV antibiotics, Blood cultures, urine cultures, Infectious disease consult BP 90 / 57; Pulse 98; Resp 16; Temp 98; Pulse Ox 100% leukocytosis 12.0, early left shift BUN 23 creatinine 1.82, hyper albumin 3.0 UA positive for acute cystitis with greater than 500 leukoesterase 5-10 red blood cells, greater than 50 white blood cells, CT of the abdomen pelvis IMPRESSION: No acute intra-abdominal process.Large heterogeneous mass involving the cervix and lower uterine segment, compatible with provided history of cervical cancer. No suspicious adenopathy or findings to suggest distant metastatic disease in the abdomen and pelvis. Bilateral percutaneous nephrostomy tubes in place. History uterine abscess, fistulas Uterine cancer follow-up outpatient with oncology Resolved since last CT scan anemia Trend H&H, History cholelithiasis As needed analgesics DVT prophylaxis Regular diet Full code Discharge Plan: Home Plan to discharge in: 48 Hours - Advance Directives Does patient have a Living Will: No Does patient have a Durable POA for Healthcare: No - Code Status/Comfort Care Code Status: Full Code Physician Review: Patient Assessed, Agree with Above Assessment and Plan Critical Care: No Time Spent Managing Pts Care (In Minutes): 50
[2022-12-26] MEDS ORDERED: ACETAMINOPHEN 500 MG TAB PO PRN (02:02)
[2022-12-26] MEDS: NA CHLORIDE 0.9% 1,000 ML IV SCH ×4 (02:40→17:29)
[2022-12-26 02:54] VITALS: BMI 18.8
[2022-12-26] MEDS ORDERED: ONDANSETRON 4 MG/2 ML VIAL IV PRN (03:00)
[2022-12-26 03:24] VITALS: O2SAT 100
[2022-12-26] MEDS ORDERED: CEFEPIME 1 GM in NA CHLORIDE 0.9% 100 ML IV SCH (09:00)
[2022-12-26] MEDS: Meropenem 1,000 MG in NA CHLORIDE 0.9% 100 ML IV SCH ×2 (09:40→20:03)
[2022-12-26 11:25] LABS: Absolute Lymphocytes (CBC) 0.8 K/uL (0.7-4.9); Hematocrit 22.1 % (36.0-45.0); Lymphocytes % 9.3 % (15.3-44.8); MCV 95.5 fL (80-100); MPV 6.7 fL (7.6-11.3); Platelets 308 thou/uL (152-406); RBC Red Blood Cell Count 2.32 M/uL (3.86-4.86)
--- NOTE | 2022-12-26 11:37 | P.PN ---
Subjective Date of Service: 12/26/22 Chief Complaint: Abdominal pain Patient is 37 years of age with metastatic uterine cancer bilateral nephrostomy tubes admitted with lower abdominal pain she is not on any medications not care of any physician Is been associated with vomiting for a p.o. intake multiple admissions gutierrez sferred to [facility] and had chemoradiation previously Review of Systems General: Weakness Gastrointestinal: Nausea, Vomiting, Abdominal Pain Physical Examination - Vital Signs Temperature: 98.4 F Blood Pressure: 139/65 Pulse: 99 Respirations: 14 Pulse Ox (%): 98 - Physical Exam General: Alert, Oriented x3 HEENT: Atraumatic Neck: Supple Cardiovascular: No edema, Regular rate/rhythm Gastrointestinal: Tenderness (Tenderness in the lower abdomen griffin is soft not distended) - Studies Laboratory Data (last 24 hrs) 12/25/22 12/25/22 20:58 20:58 WBC 12.20 H Hgb 8.0 L Hct 23.2 L Plt Count 375 Sodium 135 L Potassium 3.6 BUN 23 H Creatinine 1.82 H Glucose 105 Total Bilirubin 0.3 AST 8 L ALT 11 L Alkaline Phosphatase 87 Lipase 15 Assessment And Plan - Current Problems (Diagnosis) (1) Metastasis from cervical cancer Current Visit: Yes Status: Acute Plan: CT scan done No acute intra-abdominal process. Large heterogeneous mass involving the cervix and lower uterine segment, compatible with provided history of cervical cancer. No suspicious adenopathy or findings to suggest distant metastatic disease in the abdomen and pelvis. Bilateral percutaneous nephrostomy tubes in place Continue with conservative treatment Labs reviewed white count is elevated mildly anemic have an underlying cystitis await for cultures to do with pain relief IV antibiotics pressure worker to discuss further management Physician Review: Patient Assessed, Agree with Above Assessment and Plan
[2022-12-26 11:41] LABS: Magnesium 2.2 mg/dL (1.6-2.4); Potassium 4.7 mEq/L (3.5-5.1)
--- NOTE | 2022-12-26 15:07 | P.CNS ---
Date of Consult: 12/26/22 Reason for Consult: UTI recurrent Chief Complaint: Abdominal pain History of Present Illness: Patient is a 37 yo female with a past medical history of cervical and uterine cancer, renal failure with bilateral nephrostomy tubes, recurrent urinary tract infections who presented to the ED with complaints of abdominal pain, nausea and vomiting. She has not received treatment for her cervical and uterine cancer. Urinalysis suggestive of UTI, Infectious disease was consulted. Allergies Penicillins Allergy (Intermediate, Verified 01/02/13 12:26) Hives/Rash Home medications list reviewed: Yes Home Medications: NK [No Home Meds] 10/19/11 - Past Medical/Surgical History -: Cervical cancer -: Stomach cancer -: Chronic UTIs -: Bilateral nephrostomy tubes - Social History Smoking Status: Unknown if ever smoked Alcohol use: No CD- Drugs: No Caffeine use: Yes Place of Residence: Home Review of Systems General: Weakness Gastrointestinal: Abdominal Pain Musculoskeletal: Other (chronic pain) Physical Examination Temp Pulse Resp BP Pulse Ox 98.3 F 94 H 16 87/46 L 98 12/26/22 12:00 12/26/22 12:00 12/26/22 12:00 12/26/22 12:00 12/26/22 11:37 General: In no apparent distress, Oriented x3 HEENT: Atraumatic, Normocephalic Respiratory: Clear to auscultation bilaterally, Normal air movement Cardiovascular: No edema, Regular rate/rhythm Gastrointestinal: Normal bowel sounds, Tenderness Urinary: Other (bilateral nephrostomy drains) Laboratory Data (last 24 hrs) 12/25/22 12/25/22 20:58 20:58 WBC 12.20 H Hgb 8.0 L Hct 23.2 L Plt Count 375 Sodium 135 L Potassium 3.6 BUN 23 H Creatinine 1.82 H Glucose 105 Total Bilirubin 0.3 AST 8 L ALT 11 L Alkaline Phosphatase 87 Lipase 15 Microbiology Data - Reviewed Imagings Data: - Reviewed Conclusions/Impression: Urinary Tract Infection - CT abdomen pelvis 12/25: "No acute intra-abdominal process. Large heterogeneo us mass involving the cervix and lower uterine segment, compatible with provided history of cervical cancer. No suspicious adenopathy or findings to suggest distant metastatic disease in the abdomen and pelvis. Bilateral percutaneous nephrostomy tubes in place." - Recent Urine culture on 12/06/22 with E.coli ESBL - Discontinued Cefepime and started on Meropenem 12/26. - urine culture 12/25: Pending - Blood cultures 12/25: pending Recommendations - Recent urine culture with E.coli ESBL, started patient on Meropenem (12/26) Recommend continuing antibiotic therapy for 7-10 days Follow up with urine and blood culture results Supplemental nutrition as tolerated Case discussed with Cruz Garcia
[2022-12-26] MEDS ORDERED: VANCOMYCIN 1.25 GM in NA CHLORIDE 0.9% 250 ML IVPB ONE (17:00)
[2022-12-26] MEDS ORDERED: NA CHLORIDE 0.9% 1,000 ML IV ONE (17:18)
[2022-12-26] MEDS ORDERED: NA CHLORIDE 0.9% 200 ML ONE (17:39)
[2022-12-26] MEDS: MORPHINE 4 MG/ML SYR IV PRN ×2 (20:04→23:56)
[2022-12-27] MEDS: Meropenem 1,000 MG in NA CHLORIDE 0.9% 100 ML IV SCH (10:27)
[2022-12-27] MEDS ORDERED: HYDROCODONE/APAP 5/325 MG TAB PO PRN (11:47)
--- NOTE | 2022-12-27 11:50 | P.PN ---
Subjective Date of Service: 12/27/22 Chief Complaint: Abdominal pain/ESBL infection Patient still continues to complain of lower abdominal pain she has ESBL isolated in the urine Review of Systems General: Weakness Gastrointestinal: Abdominal Pain Physical Examination - Vital Signs Temperature: 98.3 F Blood Pressure: 85/55 Pulse: 91 Respirations: 14 Pulse Ox (%): 100 - Physical Exam General: Alert, Oriented x3, Moderate distress Cardiovascular: No edema, Regular rate/rhythm, Normal S1 S2 Gastrointestinal: Normal bowel sounds, Tenderness (Your abdomen) - Studies Microbiology Data (last 24 hrs): 12/25/22 23:15 Blood - Blood Gram Stain - Final Assessment And Plan - Current Problems (Diagnosis) (1) Metastasis from cervical cancer Current Visit: Yes Status: Acute Plan: CT scan done No acute intra-abdominal process. Large heterogeneous mass involving the cervix and lower uterine segment, compatible with provided history of cervical cancer. No suspicious adenopathy or findings to suggest distant metastatic disease in the abdomen and pelvis. Bilateral percutaneous nephrostomy tubes in place Continue with conservative treatment Labs reviewed white count is elevated mildly anemic have an underlying cystitis await for cultures to do with pain relief IV antibiotics pressure worker to discuss further management (2) ESBL (extended spectrum beta-lactamase) producing bacteria infection Current Visit: Yes Status: Acute Plan: DW patient and mother of the patient. Pt refused IV merem. DC am with hospic and Macrodantin Discharge Plan: Home Plan to discharge in: 24 Hours - Code Status/Comfort Care Comfort Measures: Hospice Care Physician Review: Patient Assessed, Agree with Above Assessment and Plan
[2022-12-27] MEDS: MORPHINE 4 MG/ML SYR IV PRN (11:52)
--- NOTE | 2022-12-27 11:56 | P.PN ---
Subjective Date of Service: 12/27/22 Chief Complaint: Abdominal pain/ Patient is 37 years of age with metastatic uterine cancer bilateral nephrostomy tubes admitted with lower abdominal pain she is not on any medications not care of any physician Is been associated with vomiting for a p.o. intake multiple admissions tra nsferred to [facility] and had chemoradiation previously Physical Examination - Vital Signs Temperature: 98.3 F Blood Pressure: 85/55 Pulse: 91 Respirations: 14 Pulse Ox (%): 100 - Studies Microbiology Data (last 24 hrs): 12/25/22 23:15 Blood - Blood Gram Stain - Final Assessment And Plan - Current Problems (Diagnosis) (1) Metastasis from cervical cancer Current Visit: Yes Status: Acute Plan: CT scan done No acute intra-abdominal process. Large heterogeneous mass involving the cervix and lower uterine segment, compatible with provided history of cervical cancer. No suspicious adenopathy or findings to suggest distant metastatic disease in the abdomen and pelvis. Bilateral percutaneous nephrostomy tubes in place Continue with conservative treatment Labs reviewed white count is elevated mildly anemic have an underlying cystitis await for cultures to do with pain relief IV antibiotics pressure worker to discuss further management Physician Review: Patient Assessed, Agree with Above Assessment and Plan
[2022-12-27 16:12] VITALS: BP 85/55; TEMP 98.3
[2022-12-27] MEDS ORDERED: Mupirocin NASAL 2 APPL/1 GM TUBE NAS SCH (21:00)
[2022-12-28] MEDS ORDERED: VANCOMYCIN 1 GM in NA CHLORIDE 0.9% 250 ML IVPB SCH (05:00)
--- NOTE | 2022-12-29 08:39 | P.DS ---
Admission Date: 12/25/22 Discharge Date: 12/27/22 Disposition: HOSPICE-HOME Discharge Condition: FAIR Reason for Admission: Abdominal pain/ESBL infection - Problems (1) Metastasis from cervical cancer Status: Acute (2) ESBL (extended spectrum beta-lactamase) producing bacteria infection Status: Acute Brief History of Present Illness: see note Hospital Course: see note Vital Signs/Physical Exam: Temp Pulse Resp BP Pulse Ox 98.3 F 91 H 14 85/55 L 100 12/27/22 13:27 12/27/22 13:27 12/27/22 13:27 12/27/22 13:27 12/27/22 13:27 Laboratory Data at Discharge: WBC Cancelled 12/27/22 05:00 Hgb Cancelled 12/27/22 05:00 Hct Cancelled 12/27/22 05:00 Plt Count Cancelled 12/27/22 05:00 Sodium Cancelled 12/27/22 05:00 Potassium Cancelled 12/27/22 05:00 BUN Cancelled 12/27/22 05:00 Creatinine Cancelled 12/27/22 05:00 Glucose Cancelled 12/27/22 05:00 Magnesium Cancelled 12/27/22 05:00 Total Bilirubin 0.3 mg/dL (0.2-1.0) 12/25/22 20:58 AST 8 U/L (15-37) L 12/25/22 20:58 ALT 11 U/L (13-56) L 12/25/22 20:58 Alkaline Phosphatase 87 U/L (45-117) 12/25/22 20:58 Lipase 15 U/L (13-75) 12/25/22 20:58 Home Medications: Nitrofuran Macro [Macrodantin*] 100 mg PO BID 14 Days #28 cap 12/27/22 New Medications: Nitrofuran Macro [Macrodantin*] 100 mg PO BID 14 Days #28 cap Physician Discharge Instructions: PROBLEM: Metastatic Cancer; ESBL GOAL: Clear understanding of disease process INSTRUCTIONS: Pt being discharged with hospice care team. If you have any questions regarding hospital stay, feel free to call [phone]. Please take prescription as prescribed. Diet: As Tolerated Activity: As tolerated DME DME: Date Ordered: Name of Company: [employer] Services Needed: Name of Company: Date or Referral: IMMUNIZATION Influenza Vaccine Indicated: No Influenza Vaccine Given: Date Given: Pneumonia Vaccine Indicated: No Pneumonia Vaccine Given: Date Given: Followup: NONE,NONE [Primary Care Provider] -
== END 2022-12-27 15:43 | disposition hospice, home (50) | DRG 698 ==
LOC: ER 20:19 → ERHOLD 23:57 → 2ND 12-26 02:04
PROVIDERS: ADMIT Internal Medicine Sleep Medicine; ATTEND Internal Medicine Sleep Medicine
DX: T83.512A Infection and inflammatory reaction due to nephrostomy catheter, initial encounter (principal); A41.51 Sepsis due to Escherichia coli [E. coli]; N30.00 Acute cystitis without hematuria; C56.9 Malignant neoplasm of unspecified ovary; N17.9 Acute kidney failure, unspecified; C78.89 Secondary malignant neoplasm of other digestive organs; C79.82 Secondary malignant neoplasm of genital organs; Z16.12 Extended spectrum beta lactamase (ESBL) resistance; G89.3 Neoplasm related pain (acute) (chronic); N18.9 Chronic kidney disease, unspecified; D63.1 Anemia in chronic kidney disease; C53.9 Malignant neoplasm of cervix uteri, unspecified; F17.210 Nicotine dependence, cigarettes, uncomplicated; Z88.0 Allergy status to penicillin; Z88.8 Allergy status to other drugs, medicaments and biological substances; Z93.6 Other artificial openings of urinary tract status; Z91.199 Patient's noncompliance with other medical treatment and regimen due to unspecified reason
CPT/HCPCS: 36415; 74177; 80048; 80053; 81001; 81025; 83605; 83690; 83735; 85025; 87040; 87077; 87086; 87088; 87186; 87205; 99285; J0696; J1200; J1630; J2185; J2405; J7030; J7050; Q9967